=== PATIENT | female | born 1955 | race Caucasian/White ===

== ENCOUNTER 2017-03-06 12:35 | Inpatient (IN) | payer OTHER, BC ==
[~2017-03-06] VITALS: Ht 157.5 cm; Wt 81.6 kg
[2017-03-06] VITALS (12 sets, daily range): BP systolic 107–140; BP diastolic 50–64; PULSE 80–116; TEMP 37–37.7; O2SAT 40–99; Ht 157.5 cm; Wt 81.6 kg
[~2017-03-06 12:35] MED LIST: ALBU1AER9 INH; ALBU1NEB10 INH; ATRINS NEB; AZIT250T PO; BRVIN INH; CALC500C70 PO; CHOL100010 PO; CITA40TA12 PO; CYAN1TAB18 PO; DLR500 PO; FLUT1INH INH; GFNSR600 PO; INSDGIPEN SQ; METF1000 PO; MORPHINE SULFATE PO; MTR/600 PO; NCYSR50 PO; NVLG SQ; OXGN; PANT40TA2 PO; POLY335019 PO; POTA-327 PO; RANI300T2 PO; SPRIN INH; XPNINS125 NEB
[2017-03-06] MEDS ORDERED: METHYLPREDNISOLONE 125 MG VIAL IV STA (12:48)
--- NOTE | 2017-03-06 12:56 | EMERGENCY ROOM VISIT NOTE ---
History Report prepared by Ellie: Jo Yan Under the Supervision of: Dr. Abraham Padron M.D. First contact with patient: 12:44 Chief Complaint: RESPIRATORY PROBLEMS Stated Complaint: BREATHING History of Present Illness The patient is a 61 year old female who presents to the Emergency Room with complaints of difficulty breathing beginning two days ago. The patient states that she woke up this morning and was acutely worse. She has been having fever and chills. The patient notes some chest discomfort due to shortness of breath. She denies any abdominal pain or episodes of syncope. At home, the patient is on 4-6 L of oxygen. The patient's gave her Levaquin and 20 mg of prednisone prior to arrival. The patient has a history of chronic back pain, COPD, and alpha one antitrypsin deficiency. The patient follows up with Dr. Georges. Nursing called for respiratory immediately upon arrival. Source of History: patient Onset: 2 days ago Position: other (generalized) Quality: other (difficulty breathing) Associated Symptoms: + fevers, + chills, + chest pain, + SOB, No abdominal pain Review of Systems See HPI for pertinent positives & negatives. A total of 10 systems reviewed and were otherwise negative. Past Medical & Surgical Medical Problems: (1) [id number] deficiency (2) COPD (chronic obstructive pulmonary disease) (3) Depression (4) Diabetes type 2, controlled (5) GERD (gastroesophageal reflux disease) (6) H/O lymphoma (7) H/o PE (8) Respiratory failure (9) Respiratory failure, acute Surgical Problems: (1) History of back surgery (2) History of bronchoscopy (3) S/P SORAIDA (total abdominal hysterectomy) Family History Cancer Diabetes mellitus FATHER Lung disease FATHER BROTHER Social History Smoking Status: Former Smoker Alcohol Use: occasionally Marital Status: Housing Status: lives with family Occupation Status: disabled Current/Historical Medications Scheduled Albuterol Sulf (Albuterol Sulfate 0.083% For Inh), 3 ML INH UD Arformoterol Tartrate (Brovana), 15 MCG INH BID Calcium/Vitamin D (Os-Oliverio 500 Plus D), 1 TAB PO QAM Cholecalciferol (Vitamin D3), 1 TAB PO DAILY Citalopram Hydrobromide (Celexa), 40 MG PO DAILY Cyanocobalamin (B-12), 1,000 MCG PO QAM Fluticasone Furoate-Vilanterol (Breo Ellipta), 1 PUFF INH DAILY Home O2 Therapy (Oxygen), 5-6 LITER NA CONTINOUS Insulin Glargine (Basaglar Kwikpen), 12 UNITS SC BID Ipratropium [place] (Ipratropium [place]), 1 VIAL NEB QID Metformin HCl (Metformin HCl), 500 MG PO BID Morphine Sulfate (Morphine Sulfate Er), 30 MG PO BID Pantoprazole (Pantoprazole Sodium), 40 MG PO DAILY Potassium Chloride (Micro-K Ext Rel), 20 MEQ PO QAM Ranitidine Hcl (Zantac), 300 MG PO BID Roflumilast (Daliresp), 500 MCG PO QAM Tiotropium [place] (Spiriva Handihaler), 1 PUFF INH QAM Scheduled PRN Albuterol Hfa (Ventolin Hfa), 2 PUFFS INH Q4 PRN for SOB/Wheezing Guaifenesin La (Guaifenesin Er), 600 MG PO Q12H PRN for Cough Ibuprofen (Ibuprofen), 1 TAB PO Q6 PRN for Pain Insulin Aspart (Novolog), 5 UNITS SQ TIDM PRN for PRN Levalbuterol (Levalbuterol HCl), 3 ML NEB TID PRN for SOB/Wheezing Morphine Sulfate (Morphine Sulfate), 5-10 MG PO Q4 PRN for breakthrough pain Polyethylene Glycol 3350 (Miralax), 17 GM PO DAILY PRN for Consult Allergies Coded Allergies: Sulfamethoxazole w/Trimethoprim (Verified Allergy, Unknown, RASH, 03/06/17) Physical Exam Vital Signs Date Time Temp Pulse Resp B/P (MAP) Pulse Ox O2 Delivery O2 Flow Rate FiO2 03/06/17 14:30 122 21 111/54 99 BiPAP 5.0 40 03/06/17 14:15 119 24 99 BiPAP 03/06/17 13:55 124 20 100 BiPAP 03/06/17 13:35 115 30 100 BiPAP 03/06/17 13:15 110 26 100 BiPAP 03/06/17 13:13 100 BiPAP 03/06/17 13:13 109 26 131/81 100 BiPAP 03/06/17 13:09 112 99 40 03/06/17 13:08 116 32 97 BiPAP/CPAP 40 03/06/17 13:00 93 Nasal Cannula 5.0 03/06/17 12:54 101 03/06/17 12:40 39.3 110 33 131/86 93 Nasal Cannula 5.0 Physical Exam GENERAL: Patient is acutely ill appearing and in severe distress. HEENT: No acute trauma, normocephalic atraumatic, mucous membranes moist, no nasal congestion, no scleral icterus. NECK: No stridor, no adenopathy, no meningismus, trachea is midline. LUNGS: Very tight lung sounds, wheezing/stridor on expiration, Tachypneic and dyspneic. HEART: Tachycardic. No murmurs, rubs, gallops appreciated. ABDOMEN: Soft, nontender, bowel sounds positive, no masses appreciated, no peritonitis. BACK: No midline tenderness, no CVA tenderness EXTREMITIES: Normal motion all extremities, no cyanosis, no edema. NEUROLOGIC: Alert and oriented, no acute motor or sensory deficits, no focal weakness, cranial nerves grossly intact. SKIN: No rash, no jaundice, warm to touch. Medical Decision & Procedures ER Provider Diagnostic Interpretation: Radiology results and stated below per my review and radiologist interpretation: SINGLE VIEW CHEST FINDINGS: An AP, portable, upright chest radiograph is compared to study dated 01/28/2017 and correlated with chest CT dated 03/15/2016. The examination is degraded by portable technique and apical lordotic positioning. A left subclavian central venous infusion port is unchanged in position. The cardiomediastinal silhouette is unremarkable. There is atherosclerotic calcification of the thoracic aorta. Emphysema and chronic interstitial thickening are similar to previous. There is bibasilar atelectasis. The lungs and pleural spaces are otherwise clear. No pneumothorax is seen. The skeletal structures are osteopenic. The bony thorax is grossly intact. IMPRESSION: Emphysema with no acute cardiopulmonary abnormality. Electronically signed by: Luis Alfredo Dickerson M.D. Laboratory Results 03/06/17 13:15 Red Blood Count 4.34, Mean Corpuscular Volume 88.2, Mean Corpuscular Hemoglobin 28.6, Mean Corpuscular Hemoglobin Concent 32.4, Mean Platelet Volume 9.5, Neutrophils (%) (Auto) 72.2, Lymphocytes (%) (Auto) 18.5, Monocytes (%) (Auto) 7.6, Eosinophils (%) (Auto) 1.1, Basophils (%) (Auto) 0.3, Neutrophils # (Auto) 10.77, Lymphocytes # (Auto) 2.76, Monocytes # (Auto) 1.13, Eosinophils # (Auto) 0.16, Basophils # (Auto) 0.04 03/06/17 13:15 Test 03/06/17 13:15 03/06/17 13:32 White Blood Count 14.91 K/uL (4.8-10.8) Red Blood Count 4.34 M/uL (4.2-5.4) Hemoglobin 12.4 g/dL (12.0-16.0) Hematocrit 38.3 % (37-47) Mean Corpuscular Volume 88.2 fL (80-100) Mean Corpuscular Hemoglobin 28.6 pg (25-34) Mean Corpuscular Hemoglobin Concent 32.4 g/dl (32-36) Platelet Count 252 K/uL (130-400) Mean Platelet Volume 9.5 fL (7.4-10.4) Neutrophils (%) (Auto) 72.2 % Lymphocytes (%) (Auto) 18.5 % Monocytes (%) (Auto) 7.6 % Eosinophils (%) (Auto) 1.1 % Basophils (%) (Auto) 0.3 % Neutrophils # (Auto) 10.77 K/uL (1.4-6.5) Lymphocytes # (Auto) 2.76 K/uL (1.2-3.4) Monocytes # (Auto) 1.13 K/uL (0.11-0.59) Eosinophils # (Auto) 0.16 K/uL (0-0.5) Basophils # (Auto) 0.04 K/uL (0-0.2) RDW Standard Deviation 43.5 fL (36.4-46.3) RDW Coefficient of Variation 13.4 % (11.5-14.5) Immature Granulocyte % (Auto) 0.3 % Immature Granulocyte # (Auto) 0.05 K/uL (0.00-0.02) Prothrombin Time 10.1 SECONDS (9.0-12.0) Prothromb Time International Ratio 0.9 (0.9-1.1) Activated Partial Thromboplast Time 24.8 SECONDS (21.0-31.0) Partial Thromboplastin Ratio 1.0 Anion Gap 8.0 mmol/L (3-11) Est Creatinine Clear Calc Drug Dose 47.4 ml/min Estimated GFR () 56.7 Estimated GFR (Non- 48.9 BUN/Creatinine Ratio 18.3 (10-20) Lactic Acid Level 2.4 mmol/L (0.4-2.0) Calcium Level 9.1 mg/dl (8.5-10.1) Magnesium Level 1.7 mg/dl (1.8-2.4) Troponin I < 0.015 ng/ml (0-0.045) Arterial Blood pH 7.42 (7.35-7.45) Arterial Blood Partial Pressure CO2 41 mmHg (35-46) Arterial Blood Partial Pressure O2 124 mm/Hg (80-95) Arterial Blood HCO3 26 mmol/L (19-24) Arterial Blood Oxygen Saturation 98.7 % (90-95) Arterial Blood Base Excess 0.9 mEq/L (-9-1.8) Arterial Blood Gas Delivery 40% Nigel Test POS (POS) Laboratory results as reviewed by me. Medications Administered Medications (Trade) Dose Ordered Sig/Aram Route Start Time Stop Time Status Last Admin Dose Admin Methylprednisolone Sodium Succinate (Solu-Medrol IV) 125 mg NOW STAT IV 03/06/17 12:48 03/06/17 12:50 DC 03/06/17 13:02 125 MG Albuterol/ Ipratropium (Duoneb) 12 ml ONE ONCE INH 03/06/17 13:00 03/06/17 13:01 DC 03/06/17 13:08 12 ML Lorazepam (Ativan Inj) 1 mg NOW STAT IV 03/06/17 13:03 03/06/17 13:04 DC 03/06/17 13:07 1 MG Acetaminophen (Tylenol Tab) 1,000 mg NOW STAT PO 03/06/17 13:31 03/06/17 13:33 DC 03/06/17 13:42 1,000 MG Levofloxacin (Levaquin / D5W) 750 mg NOW STAT IV 03/06/17 13:31 03/06/17 13:33 DC 03/06/17 13:52 750 MG Cefepime HCl 1000 mg/Syringe 11 ml @ 5.5 mls/min NOW STAT IV 03/06/17 13:38 03/06/17 13:39 DC 03/06/17 13:47 5.5 MLS/MIN Magnesium Sulfate (Magnesium Sulfate) 1 gm NOW STAT IV 03/06/17 14:16 03/06/17 14:17 DC 03/06/17 14:46 1 GM ECG Indication: SOB/dyspnea Rate (beats per minute): 112 Rhythm: sinus tachycardia Findings: no acute ischemic change, no ectopy ED Course 1245: The patient was evaluated in room B10. A complete history and physical exam was performed. 1248: Solu-Medrol IV 125 mg IV. 1300: Duoneb 12 ml INH. 1302: The patient is very anxious with the Bipap. 1303: Ativan Inj 1 mg IV. 1304: Lorazepam 2 mg .ROUTE. 1312: The patient is breathing much more comfortably on Ativan and Bipap. 1331: Cefepime HCl 1000 mg/Dextrose 111 ml @ 200 mls/hr IV, Levofloxacin 750 mg IV, Tylenol Tab 1000 mg PO. 1338: Cefepime HCl 1000 mg/Dextrose 11 ml @ 5.5 mls/hr IV. 1416: Magnesium Sulfate 1 gm IV. 1432: Discussed the patient's case with Dr. Oneal. The patient will be evaluated for further treatment and disposition. Medical Decision Differential: Infectious, Reactive Airway Disease, Pneumonia, Pneumothorax, COPD , CHF, ACS, Pulmonary Embolism, MSK, GI, Dissection, amongst other etiologies entertained. 61 yr old female with severe COPD arrives in acute respiratory distress. Placed on BiPAP and given IV Ativan with vast improvement in breathing. Febrile with tachycardia and mild lactic elevation thus early sepsis, though I suspect lactic acid may more be due to acute respiratory issues. Given empiric abx. BP OK and will avoid over hydration, especially given fluids from abx for the moment. Stable with ok abg currently. HR still mildly elevated though with fever and continuous neb this is not surprising. Solumedrol given as well. Will come in to hospitalist service for further management. Medication Reconcilliation Current Medication List: was personally reviewed by me Blood Pressure Screening Patient's blood pressure: Normal blood pressure Blood pressure disposition: Referred to PCP (will be evaluated by hospitalist) Consults Time Called: 1420 Consulting Physician: Dr. Oneal Returned Call: [phone] Discussed the patient's case. The patient will be evaluated for further treatment and disposition. Impression Primary Impression: Respiratory failure Additional Impressions: COPD exacerbation Febrile illness Critical Care I have personally spent greater than 35 minutes of critical care time in the direct management of this patient. This was a life/limb threatening event. This includes time spent evaluating patient, direct bedside care, chart review, placing orders, interpretation of diagnostic studies, discussion with consultants, patient, and family members, as well as other required patient management activities. This 35 minutes is in excess of all separately billable procedures. Scribe Attestation The scribe's documentation has been prepared under my direction and personally reviewed by me in its entirety. I confirm that the note above accurately reflects all work, treatment, procedures, and medical decision making performed by me. Departure Information Dispostion Being Evaluated By Hospitalist Referrals August Esposito MD (PCP) Patient Instructions My [facility] Problem Qualifiers
[2017-03-06] MEDS ORDERED: ALBUT/IPRATROP 3MG/0.5MG NEB 3 ML VIAL INH ONE (13:00)
[2017-03-06] MEDS ORDERED: LORAZEPAM 2 MG/ML 1 ML VIAL IV STA ×2 (13:03→22:31)
[2017-03-06] MEDS ORDERED: LORAZEPAM 2 MG/ML 1 ML VIAL ONE ×2 (13:04→22:35)
[2017-03-06] MEDS ORDERED: LEVAQUIN 750MG / 150ML D5W IV STA (13:31)
[2017-03-06] MEDS ORDERED: ACETAMINOPHEN 500 MG TAB PO STA (13:31)
[2017-03-06] MEDS ORDERED: CEFEPIME IV 1,000 MG in DEXTROSE 5% 100ML 100 ML IV STA (13:31)
[2017-03-06] MEDS ORDERED: CEFEPIME IV 1,000 MG in SYRINGE 0 ML IV STA (13:38)
[2017-03-06 13:45] LABS: BASO % 0.3 %; BASO ABS # 0.04 K/uL (0-0.2); COMPLETE YES; EOS % 1.1 %; HEMATOCRIT 38.3 % (37-47); IG% 0.3 %; LYMPH % 18.5 %; LYMPH ABS # 2.76 K/uL (1.2-3.4); MEAN CELL VOLUME 88.2 fL (80-100); MEAN CORPUSCULAR HEMOGLOBIN 28.6 pg (25-34); MEAN CORPUSCULAR HGB CONC 32.4 g/dl (32-36); MEAN PLATELET VOLUME 9.5 fL (7.4-10.4); MONO % 7.6 %; NEUT % 72.2 %; PLATELET COUNT 252 K/uL (130-400); RED BLOOD COUNT 4.34 M/uL (4.2-5.4); WHITE BLOOD COUNT 14.91 K/uL (4.8-10.8)
[2017-03-06 13:47] LABS: ARTERIAL BLD GAS O2 SATURATION 98.7 % (90-95); ARTERIAL BLOOD GAS BASE EXCESS 0.9 mEq/L (-9-1.8); ARTERIAL BLOOD GAS HCO3 26 mmol/L (19-24); ARTERIAL BLOOD GAS PO2 124 mm/Hg (80-95); ARTERIAL BLOOD GAS pH 7.42 (7.35-7.45)
[2017-03-06 13:49] LABS: ALLEN TEST POS (POS); O2 ADMINISTRATION 40%
--- NOTE | 2017-03-06 13:52 | DIAGNOSTIC IMAGING REPORT ---
SINGLE VIEW CHEST CLINICAL HISTORY: Dyspnea. FINDINGS: An AP, portable, upright chest radiograph is compared to study dated 01/28/2017 and correlated with chest CT dated 03/15/2016. The examination is degraded by portable technique and apical lordotic positioning. A left subclavian central venous infusion port is unchanged in position. The cardiomediastinal silhouette is unremarkable. There is atherosclerotic calcification of the thoracic aorta. Emphysema and chronic interstitial thickening are similar to previous. There is bibasilar atelectasis. The lungs and pleural spaces are otherwise clear. No pneumothorax is seen. The skeletal structures are osteopenic. The bony thorax is grossly intact. IMPRESSION: Emphysema with no acute cardiopulmonary abnormality. Electronically signed by: Luis Alfredo Dickerson M.D. 03/06/2017 1:50 PM Dictated Date/Time: 03/06/2017 1:48 PM
[2017-03-06 14:00] LABS: INR 0.9 (0.9-1.1); PROTHROMBIN TIME (PATIENT) 10.1 SECONDS (9.0-12.0)
[2017-03-06 14:02] LABS: BLOOD UREA NITROGEN 22 mg/dl (7-18); BUN/CREATININE RATIO 18.3 (10-20); CALCIUM 9.1 mg/dl (8.5-10.1); CARBON DIOXIDE 25 mmol/L (21-32); CHLORIDE 104 mmol/L (98-107); CREATININE 1.19 mg/dl (0.60-1.20); GLUCOSE 134 mg/dl (70-99); MAGNESIUM 1.7 mg/dl (1.8-2.4); POTASSIUM 4.2 mmol/L (3.5-5.1); SODIUM 137 mmol/L (136-145)
[2017-03-06] MEDS ORDERED: VNTHFA/IN INH (14:10)
[2017-03-06] MEDS ORDERED: RXNS10 PO (14:10)
[2017-03-06] MEDS ORDERED: GLC500 PO (14:10)
[2017-03-06] MEDS ORDERED: ARFO15NE INH (14:10)
[2017-03-06] MEDS ORDERED: CHOL1000 PO (14:10)
[2017-03-06] MEDS ORDERED: POTA10CA28 PO (14:10)
[2017-03-06] MEDS ORDERED: GUAI1TAB75 PO (14:10)
[2017-03-06] MEDS ORDERED: MORP1TAB12 PO (14:10)
[2017-03-06] MEDS ORDERED: INSU100I23 SC (14:10)
[2017-03-06] MEDS ORDERED: MAGNESIUM SULFATE 1GM / D5W 1 GM BAG IV STA (14:16)
[2017-03-06] MEDS ORDERED: GLUCAGON FOR INJ 1 MG VIAL SQ PRN (15:15)
[2017-03-06] MEDS ORDERED: DEXTROSE 50% 50 ML SYR IV PRN (15:15)
[2017-03-06] MEDS ORDERED: GLUCOSE 10 TABS/TUBE PO PRN (15:15)
[2017-03-06] MEDS ORDERED: MoRPHine SULFATE 0.4 MG/1 ML UDP PO PRN (15:15)
[2017-03-06] MEDS ORDERED: GLUCOSE 40% GEL 15 GM TUBE PO PRN (15:15)
[2017-03-06] MEDS ORDERED: ACETAMINOPHEN 325 MG TAB PO PRN (15:15)
[2017-03-06] MEDS ORDERED: LEVOFLOXACIN CONSULT ACTIVE PRN (15:25)
[2017-03-06] MEDS ORDERED: PHARMACY GLYCEMIC MGMT CONSULT PRN (15:27)
[2017-03-06] MEDS ORDERED: [UNRECOGNIZED DRUG - REMARK] PRN (16:00)
[2017-03-06] MEDS ORDERED: CEFEPIME CONSULT ACTIVE PRN ×2 (16:00)
[2017-03-06] MEDS: LEVALBUTEROL 1.25MG/0.5ML NEB INH SCH ×3 (16:00→23:01)
--- NOTE | 2017-03-06 16:28 | History and Physical ---
History & Physical Date & Time of Service: Mar 06, 2017 at 16:27 Chief Complaint: Breathing Primary Care Physician: August Esposito MD History of Present Illness Source: patient, clinic records, hospital records 61 year old female with history of Chronic Respiratory Failure on 4-6 L O2 via NC, COPD, Antitrypsin Deficiency, DM, PE, presenting with shortness of breath x [address] Esposito for PCP, Dr. Georges for Pulmonary. Patient started to have fever/chills, increasing dyspnea, cough, with sputum for the past 2 days. Progression of symptoms prompted consult to the ER. She was in respiratory distress and was started on Bipap at the ER. She was also given Solumedrol, Cefepime with Levaquin and Nebs. ABG showed pH7.4, PCO2 41, HCO3 26. On exam, patient was seen wearing Bipap mask, alert, oriented, still has tachypnea with HR 120s. States she feels improved compared to admission. No other symptoms. Past Medical/Surgical History Medical Problems: (1) Pvkmb-[id number] deficiency Status: Chronic (2) COPD (chronic obstructive pulmonary disease) Status: Chronic (3) Depression Status: Chronic (4) Diabetes type 2, controlled Status: Chronic (5) H/O lymphoma Status: Chronic (6) H/o PE Status: Chronic Surgical Problems: (1) History of back surgery Status: Chronic (2) History of bronchoscopy Status: Chronic (3) S/P SORAIDA (total abdominal hysterectomy) Status: Chronic Family History Cancer Diabetes mellitus FATHER Lung disease FATHER BROTHER Social History Smoking Status: Former Smoker Smokeless Tobacco Use: No Alcohol Use: none Drug Use: none Marital Status: Housing status: lives with family Occupational Status: disabled Immunizations History of Influenza Vaccine: Yes Influenza Vaccine Date: Jan 24, 2014 History of Tetanus Vaccine?: Yes History of Pneumococcal: Yes Pneumococcal Date: May 16, 2005 History of Hepatitis B Vaccine: Yes Multi-Drug Resistant Organisms History of MDRO: No Allergies Coded Allergies: Sulfamethoxazole w/Trimethoprim (Verified Allergy, Unknown, RASH, 03/06/17) Home Medications Scheduled Albuterol Sulf (Albuterol Sulfate 0.083% For Inh), 3 ML INH UD Arformoterol Tartrate (Brovana), 15 MCG INH BID Calcium/Vitamin D (Os-Oliverio 500 Plus D), 1 TAB PO QAM Cholecalciferol (Vitamin D3), 1 TAB PO DAILY Citalopram Hydrobromide (Celexa), 40 MG PO DAILY Cyanocobalamin (B-12), 1,000 MCG PO QAM Fluticasone Furoate-Vilanterol (Breo Ellipta), 1 PUFF INH DAILY Home O2 Therapy (Oxygen), 5-6 LITER NA CONTINOUS Insulin Glargine (Basaglar Kwikpen), 12 UNITS SC BID Ipratropium [place] (Ipratropium [place]), 1 VIAL NEB QID Metformin HCl (Metformin HCl), 500 MG PO BID Morphine Sulfate (Morphine Sulfate Er), 30 MG PO BID Pantoprazole (Pantoprazole Sodium), 40 MG PO DAILY Potassium Chloride (Micro-K Ext Rel), 20 MEQ PO QAM Ranitidine Hcl (Zantac), 300 MG PO BID Roflumilast (Daliresp), 500 MCG PO QAM Tiotropium [place] (Spiriva Handihaler), 1 PUFF INH QAM Scheduled PRN Albuterol Hfa (Ventolin Hfa), 2 PUFFS INH Q4 PRN for SOB/Wheezing Guaifenesin La (Guaifenesin Er), 600 MG PO Q12H PRN for Cough Ibuprofen (Ibuprofen), 1 TAB PO Q6 PRN for Pain Insulin Aspart (Novolog), 5 UNITS SQ TIDM PRN for PRN Levalbuterol (Levalbuterol HCl), 3 ML NEB TID PRN for SOB/Wheezing Morphine Sulfate (Morphine Sulfate), 5-10 MG PO Q4 PRN for breakthrough pain Polyethylene Glycol 3350 (Miralax), 17 GM PO DAILY PRN for Consult Review of Systems Constitutional- no fever; no weight loss Eyes- no acute visual changes ENT- no sinus drainage; no pharyngitis Pulmonary-(+) as noted above Cardiac- no chest pain, no palpitations, no orthopnea, no dependent edema GI- no nausea, no vomiting, no diarrhea, no melena, no hematochezia - no dysuria, no hematuria Musculoskeletal- no arthralgias, no myalgias Derm- no rashes, no new skin lesions, no changing skin lesions Hematologic- no unusual bruising, no unusual bleeding Lymphatics- no adenopathy Endocrine- no polyuria or polydipsia; no heat or cold intolerance Neuro- no headaches, no focal neurologic symptoms Psych- no anxiety, no depression Physical Exam Vital Signs Date Time Temp Pulse Resp B/P (MAP) Pulse Ox O2 Delivery O2 Flow Rate FiO2 03/06/17 16:00 37.7 102 21 124/52 99 BiPAP 03/06/17 15:03 116 20 108/68 99 BiPAP 03/06/17 14:30 122 21 111/54 99 BiPAP 5.0 40 03/06/17 14:15 119 24 99 BiPAP 03/06/17 13:55 124 20 100 BiPAP 03/06/17 13:35 115 30 100 BiPAP 03/06/17 13:15 110 26 100 BiPAP 03/06/17 13:13 100 BiPAP 03/06/17 13:13 109 26 131/81 100 BiPAP 03/06/17 13:09 112 99 40 03/06/17 13:08 116 32 97 BiPAP/CPAP 40 03/06/17 13:00 93 Nasal Cannula 5.0 03/06/17 12:54 101 03/06/17 12:40 39.3 110 33 131/86 93 Nasal Cannula 5.0 General Appearance: WD/WN, + pertinent finding (tachypneic, mild accessory muscle use) Head: normocephalic, atraumatic Eyes: normal inspection, PERRL, EOMI, sclerae normal ENT: normal ENT inspection, hearing grossly normal, pharynx normal Neck: supple, no adenopathy, thyroid normal, no JVD, trachea midline Respiratory/Chest: chest non-tender, no accessory muscle use, + accessory muscle use (mild), + pertinent finding ((+) distant breath sounds with scattered wheezing bilaterally) Cardiovascular: no edema, no JVD, no murmur, + tachycardia Abdomen/GI: normal bowel sounds, non tender, soft Back: normal inspection, no CVA tenderness Extremities/Musculoskelatal: normal inspection, no calf tenderness, no pedal edema Neurologic/Psych: admissions recruiter II-XII nml as tested, no motor/sensory deficits, alert, normal mood/affect, oriented x 3 Skin: normal color, warm/dry, no rash Lymphatic: no adenopathy Diagnostics Laboratory Results Results Past 24 Hours Test 03/06/17 13:15 03/06/17 13:32 Range/Units White Blood Count 14.91 4.8-10.8 K/uL Red Blood Count 4.34 4.2-5.4 M/uL Hemoglobin 12.4 12.0-16.0 g/dL Hematocrit 38.3 37-47 % Mean Corpuscular Volume 88.2 80-100 fL Mean Corpuscular Hemoglobin 28.6 25-34 pg Mean Corpuscular Hemoglobin Concent 32.4 32-36 g/dl Platelet Count 252 130-400 K/uL Mean Platelet Volume 9.5 7.4-10.4 fL Neutrophils (%) (Auto) 72.2 % Lymphocytes (%) (Auto) 18.5 % Monocytes (%) (Auto) 7.6 % Eosinophils (%) (Auto) 1.1 % Basophils (%) (Auto) 0.3 % Neutrophils # (Auto) 10.77 1.4-6.5 K/uL Lymphocytes # (Auto) 2.76 1.2-3.4 K/uL Monocytes # (Auto) 1.13 0.11-0.59 K/uL Eosinophils # (Auto) 0.16 0-0.5 K/uL Basophils # (Auto) 0.04 0-0.2 K/uL RDW Standard Deviation 43.5 36.4-46.3 fL RDW Coefficient of Variation 13.4 11.5-14.5 % Immature Granulocyte % (Auto) 0.3 % Immature Granulocyte # (Auto) 0.05 0.00-0.02 K/uL Prothrombin Time 10.1 9.0-12.0 SECONDS Prothromb Time International Ratio 0.9 0.9-1.1 Activated Partial Thromboplast Time 24.8 21.0-31.0 SECONDS Partial Thromboplastin Ratio 1.0 Sodium Level 137 136-145 mmol/L Potassium Level 4.2 3.5-5.1 mmol/L Chloride Level 104 98-107 mmol/L Carbon Dioxide Level 25 21-32 mmol/L Anion Gap 8.0 3-11 mmol/L Blood Urea Nitrogen 22 7-18 mg/dl Creatinine 1.19 0.60-1.20 mg/dl Est Creatinine Clear Calc Drug Dose 47.4 ml/min Estimated GFR () 56.7 Estimated GFR (Non- 48.9 BUN/Creatinine Ratio 18.3 10-20 Random Glucose 134 70-99 mg/dl Lactic Acid Level 2.4 0.4-2.0 mmol/L Calcium Level 9.1 8.5-10.1 mg/dl Magnesium Level 1.7 1.8-2.4 mg/dl Troponin I < 0.015 0-0.045 ng/ml Arterial Blood pH 7.42 7.35-7.45 Arterial Blood Partial Pressure CO2 41 35-46 mmHg Arterial Blood Partial Pressure O2 124 80-95 mm/Hg Arterial Blood HCO3 26 19-24 mmol/L Arterial Blood Oxygen Saturation 98.7 90-95 % Arterial Blood Base Excess 0.9 -9-1.8 mEq/L Arterial Blood Gas Delivery 40% Nigel Test POS POS Microbiology Results 03/06/17 Blood Culture, Received Pending 03/06/17 Blood Culture, Received Pending Diagnostic Radiology [~ rep ct add3]] SINGLE VIEW CHEST CLINICAL HISTORY: Dyspnea. FINDINGS: An AP, portable, upright chest radiograph is compared to study dated 01/28/2017 and correlated with chest CT dated 03/15/2016. The examination is degraded by portable technique and apical lordotic positioning. A left subclavian central venous infusion port is unchanged in position. The cardiomediastinal silhouette is unremarkable. There is atherosclerotic calcification of the thoracic aorta. Emphysema and chronic interstitial thickening are similar to previous. There is bibasilar atelectasis. The lungs and pleural spaces are otherwise clear. No pneumothorax is seen. The skeletal structures are osteopenic. The bony thorax is grossly intact. IMPRESSION: Emphysema with no acute cardiopulmonary abnormality. EKG HR 112, sinus rhythm, no signs of ischemia Impression Assessment and Plan 61 year old female with history of Chronic Respiratory Failure on 4-6 L O2 via NC, COPD, Antitrypsin Deficiency, DM, PE, presenting with shortness of breath x 2 days. ACUTE ON CHRONIC HYPOXIC RESPIRATORY FAILURE LIKELY SECONDARY TO COPD EXACERBATION, ACUTE BRONCHITIS COPD, ANTITRYPSIN DEFICIENCY - cultures pending - Zosyn + Levaquin Nebs q4h Solumedrol 40mg q6h - continue Bipap - admit to ICU - consult Pulmonary (follows with Dr. Georges) - takes Prolastin weekly requested to bring medication tomorrow POSSIBLE SEVERE SEPSIS SECONDARY TO ABOVE - Lactic acid 2.4 IV NSS - repeat Lactic acid at 6pm DM 2 - hold Metformin - ISS, Pharmacy Glycemic Mgt HISTORY OF PE - Lovenox for DVT prophylaxis CHRONIC PAIN - continue usual Morphine 30mg BID FULL CODE PER PATIENT DVT PROPHYLAXIS: LOVENOX DISPOSITION: anticipate d/c home when medically stable VTE Prophylaxis VTE Risk Assessment Done? Y/N: Yes Risk Level: Moderate Given or contraindicated: Enoxaparin (Lovenox)SQ
[2017-03-06] MEDS: SODIUM CHLORIDE 0.9% 1000ML 1,000 ML IV SCH (17:25)
[2017-03-06] MEDS: METRONIDAZOLE 500MG / NSS IV SCH (17:25)
[2017-03-06] MEDS: INSULIN ASPART 100 UNITS/ML 3 ML PEN SC SCH ×2 (17:26→21:12)
[2017-03-06] MEDS ORDERED: MoRPHine SULFATE CR 15 MG TAB (MS CONTIN) PO ONE (17:30)
[2017-03-06] MEDS: BREO ELLIPTA: ORDER AWAITING ACTION SCH ×2 (17:39→22:43)
[2017-03-06 18:35] LABS: INFLUENZA A PCR Neg for Influ A (NEG); INFLUENZA B PCR Neg for Influ B (NEG)
[2017-03-06] MEDS ORDERED: SODIUM CHLORIDE 0.9% 1000ML 1,000 ML IV SCH (19:00)
[2017-03-06] MEDS: ARFORMOTEROL TART 15MCG/2ML VIAL INH SCH (19:07)
[2017-03-06] MEDS ORDERED: MoRPHine SULFATE 2 MG/ML CARP IV STA (19:58)
[2017-03-06] MEDS ORDERED: MoRPHine SULFATE 2 MG/ML CARP ONE (20:01)
[2017-03-06] MEDS: METHYLPREDNISOLONE IV 40 MG in SYRINGE 0 ML IV SCH (20:07)
[2017-03-06] MEDS: CEFEPIME IV 2,000 MG in SYRINGE 7.5 ML IV SCH (20:07)
--- NOTE | 2017-03-06 20:09 | Critical Care Consultation ---
Critical Care Consultation Date of Consultation: Mar 06, 2017. Attending Physician: Sal Womack MD Reason for Consultation: 61-year-old female with acute on chronic hypoxic respiratory failure in the setting of acute bronchitis with sepsis requiring BiPAP. History of Present Illness Patient is a 61-year-old female with a past medical history significant for COPD secondary to alpha-1 antitrypsin deficiency for which she follows with Dr. Georges of pulmonology. She utilizes 4-6 L nasal cannula at home depending on her exertion. She was enjoying her typical state of health up until yesterday afternoon when she noticed chills and increasing work of breathing. Today, the patient had increased episode of chills with a fever of 102F which prompted her visit to the emergency department. While in the emergency department, the patient received IV fluids as well as being placed on BiPAP and IV steroids. She received IV antibiotics and is currently receiving cefepime and Levaquin. Her chest x-ray demonstrated no acute infiltrates. ABG: pH7.42/ pCO2 41/pO2 124/HCO3 26. At this time, the patient was resting comfortably with BiPAP in place at 12 over 5. Her oxygen saturations of been in the high 90s. She reports that her work of breathing has greatly improved. She does report having a cough throughout yesterday which was nonproductive. She complained of increasing work of breathing and shortness of breath. She has had similar episodes in the past related to her COPD exacerbations. Patient complains of upper back pain which she describes as her "typical" pain which is worse with cough. She rates her current discomfort as a 6/10. She denies any current headaches, dizziness, lightheadedness, chest pain, palpitations, hemoptysis, nausea, vomiting, abdominal pain, hematochezia, melena, hematuria, or dysuria. Patient is a former smoker. She does not recall call. She lives at home with family. Past Medical/Surgical History Medical Problems: (1) Luzro-5-qyubyfylkij deficiency (2) COPD (chronic obstructive pulmonary disease) (3) Depression (4) Diabetes type 2, controlled (5) GERD (gastroesophageal reflux disease) (6) H/O lymphoma (7) H/o PE (8) Respiratory failure (9) Respiratory failure, acute Surgical Problems: (1) History of back surgery (2) History of bronchoscopy (3) S/P SORAIDA (total abdominal hysterectomy) Family History Cancer Diabetes mellitus FATHER Lung disease FATHER BROTHER Noncontributory Social History Smoking Status: Former Smoker Smokeless Tobacco Use: No Alcohol Use: none Drug Use: none Marital Status: Housing Status: lives with family Occupation Status: disabled Allergies Coded Allergies: Sulfamethoxazole w/Trimethoprim (Verified Allergy, Unknown, RASH, 03/06/17) Home Medications Scheduled Albuterol Sulf (Albuterol Sulfate 0.083% For Inh), 3 ML INH UD Arformoterol Tartrate (Brovana), 15 MCG INH BID Calcium/Vitamin D (Os-Oliverio 500 Plus D), 1 TAB PO QAM Cholecalciferol (Vitamin D3), 1 TAB PO DAILY Citalopram Hydrobromide (Celexa), 40 MG PO DAILY Cyanocobalamin (B-12), 1,000 MCG PO QAM Fluticasone Furoate-Vilanterol (Breo Ellipta), 1 PUFF INH DAILY Home O2 Therapy (Oxygen), 5-6 LITER NA CONTINOUS Insulin Glargine (Basaglar Kwikpen), 12 UNITS SC BID Ipratropium [place] (Ipratropium [place]), 1 VIAL NEB QID Metformin HCl (Metformin HCl), 500 MG PO BID Morphine Sulfate (Morphine Sulfate Er), 30 MG PO BID Pantoprazole (Pantoprazole Sodium), 40 MG PO DAILY Potassium Chloride (Micro-K Ext Rel), 20 MEQ PO QAM Ranitidine Hcl (Zantac), 300 MG PO BID Roflumilast (Daliresp), 500 MCG PO QAM Tiotropium [place] (Spiriva Handihaler), 1 PUFF INH QAM Scheduled PRN Albuterol Hfa (Ventolin Hfa), 2 PUFFS INH Q4 PRN for SOB/Wheezing Guaifenesin La (Guaifenesin Er), 600 MG PO Q12H PRN for Cough Ibuprofen (Ibuprofen), 1 TAB PO Q6 PRN for Pain Insulin Aspart (Novolog), 5 UNITS SQ TIDM PRN for PRN Levalbuterol (Levalbuterol HCl), 3 ML NEB TID PRN for SOB/Wheezing Morphine Sulfate (Morphine Sulfate), 5-10 MG PO Q4 PRN for breakthrough pain Polyethylene Glycol 3350 (Miralax), 17 GM PO DAILY PRN for Consult Current Inpatient Medications Current Inpatient Medications Medications (Trade) Dose Ordered Sig/Aram Route Start Time Stop Time Status Last Admin Dose Admin Levalbuterol (Xopenex 1.25MG/ 0.5ML Neb) 1.25 mg Q4R INH 03/06/17 16:00 04/05/17 15:59 Methylprednisolone Sodium Succinate 40 mg/Syringe 0.64 ml @ 1.5 mls/min Q6H IV 03/06/17 20:00 04/05/17 19:59 Levofloxacin (Consult) 1 ea UD PRN N/A 03/06/17 15:25 04/05/17 15:24 Sodium Chloride 1,000 ml @ 125 mls/hr Q8H IV 03/06/17 17:00 04/05/17 16:59 03/06/17 17:25 80 MLS/HR Insulin Aspart (novoLOG ASPART) SLIDING SCALE If C... ACHS SC 03/06/17 16:00 04/05/17 15:59 03/06/17 17:26 1 UNITS Glucose (Glucose 40% Gel) 15-30 GRAMS 15 GRAMS... UD PRN PO 03/06/17 15:15 04/05/17 15:14 Glucose (Glucose Chew Tab) 4-8 Tablets 4 Tabl... UD PRN PO 03/06/17 15:15 04/05/17 15:14 Dextrose (Dextrose 50% 50ML Syringe) 25-50ML OF 50% DW IV FOR... UD PRN IV 03/06/17 15:15 04/05/17 15:14 Glucagon (Glucagon Inj) 1 mg UD PRN SQ 03/06/17 15:15 04/05/17 15:14 Miscellaneous Information (Consult Glycemic Management Pharmacy) 1 ea UD PRN N/A 03/06/17 15:27 04/05/17 15:26 Arformoterol Tartrate (Brovana 15MCG/ 2ML Neb Soln) 15 mcg BIDR INH 03/06/17 20:00 04/05/17 19:59 03/06/17 19:07 15 MCG Citalopram Hydrobromide (celeXA TAB) 40 mg DAILY PO 03/07/17 09:00 04/06/17 08:59 Pantoprazole Sodium (Protonix Tab) 40 mg DAILY PO 03/07/17 09:00 04/06/17 08:59 Potassium Chloride (Klor-Con Tab) 20 meq QAM PO 03/07/17 09:00 04/06/17 08:59 Ranitidine HCl (zANTac TAB) 300 mg BID PO 03/06/17 21:00 04/05/17 20:59 Roflumilast (Daliresp Tab) 500 mcg QAM PO 03/07/17 09:00 04/06/17 08:59 Miscellaneous Information (Order Awaiting Action) 1 ea QS N/A 03/06/17 16:00 04/05/17 15:59 Enoxaparin Sodium (Lovenox Inj) 40 mg QPM SQ 03/06/17 21:00 04/05/17 20:59 Acetaminophen (Tylenol Tab) 650 mg Q4H PRN PO 03/06/17 15:15 04/05/17 15:14 Cefepime HCl (Consult) 1 ea UD PRN N/A 03/06/17 16:00 04/05/17 15:59 Miscellaneous Information (Pharmacy Consult) 1 ea UD PRN N/A 03/06/17 16:00 04/05/17 15:59 Morphine Sulfate (Oramorph Sr Tab) 30 mg BID PO 03/06/17 21:00 03/20/17 20:59 Future hold Metronidazole 500 mg/Prmx 100 ml @ 100 mls/hr Q8H IV 03/06/17 18:00 03/13/17 17:59 03/06/17 17:25 100 MLS/HR Cefepime HCl 2000 mg/Syringe 20 ml @ 5 mls/min Q12H IV 03/06/17 20:00 03/13/17 19:59 Levofloxacin 750 mg/Prmx 150 ml @ 100 mls/hr Q2D@1400 IV 03/08/17 14:00 03/13/17 13:59 Insulin Glargine (Lantus Solostar Pen) 6 units BID SC 03/06/17 21:00 04/05/17 20:59 Review of Systems A complete 10-point Review of Systems was discussed with the patient, with pertinent positives and negatives listed in the History of Present Illness. All remaining Review of Systems questions can be considered negative unless otherwise specified. Physical Exam Date Time Temp Pulse Resp B/P (MAP) Pulse Ox O2 Delivery O2 Flow Rate FiO2 03/06/17 18:06 95 24 107/60 (76) 98 BiPAP 40 03/06/17 17:00 37.7 97 26 108/50 40 BiPAP 03/06/17 16:48 102 98 40 03/06/17 16:25 97 03/06/17 16:00 37.7 102 21 124/52 99 BiPAP 03/06/17 15:03 116 20 108/68 99 BiPAP 03/06/17 14:30 122 21 111/54 99 BiPAP 5.0 40 03/06/17 14:15 119 24 99 BiPAP 03/06/17 13:55 124 20 100 BiPAP 03/06/17 13:35 115 30 100 BiPAP 03/06/17 13:15 110 26 100 BiPAP 03/06/17 13:13 100 BiPAP 03/06/17 13:13 109 26 131/81 100 BiPAP 03/06/17 13:09 112 99 40 03/06/17 13:08 116 32 97 BiPAP/CPAP 40 03/06/17 13:00 93 Nasal Cannula 5.0 03/06/17 12:54 101 03/06/17 12:40 39.3 110 33 131/86 93 Nasal Cannula 5.0 VITAL SIGNS - Vital signs and nursing notes were reviewed. GENERAL - 51-year-old female appearing her stated age who is in no acute distress. BiPAP in place. Communicates well with provider and answers questions appropriately. SKIN - Without rashes. HEAD - NC/AT. EYES - PERRL with EOMI bilaterally. Sclera anicteric. Palpebral conjunctiva pink and moist with no injection noted. EARS - No deformities of external structures noted on gross examination bilaterally. NOSE - Midline and without cyanosis. No epistaxis or purulent drainage noted. Septum midline without deviation or septal hematoma noted. MOUTH/OROPHARYNX - Without perioral cyanosis. Buccal mucosa pink and dry. NECK - Neck with FROM. Supple to palpation. No lymphadenopathy noted. No nuchal rigidity. LUNGS - Chest wall symmetric without accessory muscle use, intercostals retractions, or central cyanosis. Distant breath sounds noted throughout. No wheezes, rales, or rhonchi appreciated. CARDIAC - RRR with S1/S2. No murmur, rubs, or gallops appreciated. ABDOMEN - Abdominal contour obese without pulsations or visible masses. BS normoactive all four quadrants. No tenderness, palpable masses, hepatosplenomegaly, or ascites noted. EXTREMITIES - No clubbing or peripheral cyanosis. No pretibial edema present. +5 /5 strength noted in UE/LE bilaterally. NEUROLOGIC - Cranial nerves II through XII grossly intact. Sensory intact to light touch throughout. PSYCH - A&Ox3 and cooperates fully with examiner. Pt is very pleasant and interacts well with examiner. Laboratory Results Last 24 Hours Test 03/06/17 13:15 03/06/17 13:32 03/06/17 17:19 03/06/17 17:20 White Blood Count 14.91 K/uL Red Blood Count 4.34 M/uL Hemoglobin 12.4 g/dL Hematocrit 38.3 % Mean Corpuscular Volume 88.2 fL Mean Corpuscular Hemoglobin 28.6 pg Mean Corpuscular Hemoglobin Concent 32.4 g/dl Platelet Count 252 K/uL Mean Platelet Volume 9.5 fL Neutrophils (%) (Auto) 72.2 % Lymphocytes (%) (Auto) 18.5 % Monocytes (%) (Auto) 7.6 % Eosinophils (%) (Auto) 1.1 % Basophils (%) (Auto) 0.3 % Neutrophils # (Auto) 10.77 K/uL Lymphocytes # (Auto) 2.76 K/uL Monocytes # (Auto) 1.13 K/uL Eosinophils # (Auto) 0.16 K/uL Basophils # (Auto) 0.04 K/uL RDW Standard Deviation 43.5 fL RDW Coefficient of Variation 13.4 % Immature Granulocyte % (Auto) 0.3 % Immature Granulocyte # (Auto) 0.05 K/uL Prothrombin Time 10.1 SECONDS Prothromb Time International Ratio 0.9 Activated Partial Thromboplast Time 24.8 SECONDS Partial Thromboplastin Ratio 1.0 Sodium Level 137 mmol/L Potassium Level 4.2 mmol/L Chloride Level 104 mmol/L Carbon Dioxide Level 25 mmol/L Anion Gap 8.0 mmol/L Blood Urea Nitrogen 22 mg/dl Creatinine 1.19 mg/dl Est Creatinine Clear Calc Drug Dose 47.4 ml/min Estimated GFR () 56.7 Estimated GFR (Non- 48.9 BUN/Creatinine Ratio 18.3 Random Glucose 134 mg/dl Lactic Acid Level 2.4 mmol/L Calcium Level 9.1 mg/dl Magnesium Level 1.7 mg/dl Troponin I < 0.015 ng/ml Arterial Blood pH 7.42 Arterial Blood Partial Pressure CO2 41 mmHg Arterial Blood Partial Pressure O2 124 mm/Hg Arterial Blood HCO3 26 mmol/L Arterial Blood Oxygen Saturation 98.7 % Arterial Blood Base Excess 0.9 mEq/L Arterial Blood Gas Delivery 40% Nigel Test POS Bedside Glucose 180 mg/dl Influenza Type A (RT-PCR) Neg for Influ A Influenza Type B (RT-PCR) Neg for Influ B Test 03/06/17 18:05 Lactic Acid Level 5.0 mmol/L Diagnostic Results Radiological imaging and reports were reviewed by myself. Radiologist's Interpretation as follows: SINGLE VIEW CHEST CLINICAL HISTORY: Dyspnea. FINDINGS: An AP, portable, upright chest radiograph is compared to study dated 01/28/2017 and correlated with chest CT dated 03/15/2016. The examination is degraded by portable technique and apical lordotic positioning. A left subclavian central venous infusion port is unchanged in position. The cardiomediastinal silhouette is unremarkable. There is atherosclerotic calcification of the thoracic aorta. Emphysema and chronic interstitial thickening are similar to previous. There is bibasilar atelectasis. The lungs and pleural spaces are otherwise clear. No pneumothorax is seen. The skeletal structures are osteopenic. The bony thorax is grossly intact. IMPRESSION: Emphysema with no acute cardiopulmonary abnormality. Assessment & Plan (1) COPD exacerbation (2) Febrile illness (3) Cvhew-5-hpzpsgqtges deficiency (4) Diabetes type 2, controlled (5) H/o PE (6) Depression (7) Respiratory failure, acute Reason Critically Ill: 61-year-old female with acute hypoxic respiratory failure on chronic disease state. History of COPD and alpha-1 antitrypsin deficiency for which she follows with pulmonology. Patient with acute febrile illness with increasing oxygen requirement with a towel to her support with BiPAP. Neuro - * CAM ICU: NEGATIVE * Chronic Back Pain - Morphine PO as at home - PRN morphine for breakthrough pain. * Depression - Continue Celexa. * Anxiety - Ativan PRN - especially with BiPAP in place. Cardiac - * No history of cardiac disease. Known history of "Heart Murmur" * EKG demonstrates Sinus Tachycardia @ 112bpm w/ non-specific ST/T-wave changes which is essentially unchanged from 03/16/2016. QTc: 434ms. Respiratory - * Acute on chronic hypoxic respiratory failure in setting of COPD 2/2 Alpha-1 Antitrypsin Deficiency: * Continue Steroids. * DuoNebs * Supplemental O2 w/ BiPAP as needed. * to bring weekly dose of Prolastin Tomorrow (03/06). * Appreciate Pulmonary Consultation. * History of PE: * Clinical Picture does not lend itself to this diagnosis. * Improving w/ symptomatic treatment as described above. * If O2 requirement or s/s were to change - consider CTA to evaluate for PE. GI - * GERD - continue Zantac/Protonix. * NPO tonight while chance of return to BiPAP. * Recommend DM diet when tolerating. RENAL/LYTES - * Monitor electrolytes daily - replace appropriately. * Continue supplemental K+ per home dosing. * Current IVF of NSS @80mL/hr. * Will add supplemental bolus of 1L in setting of elevated Lactic Acid. - * No Mccartney Catheter at this time. ENDO - * History of DM on insulin/Metformin at home. * ISS for BSG coverage per protocol. * Anticipate hyperglycemia in the setting of stress and steroid dosing. HEME - * Stable H&H. * Slight Leukocytosis. ID - * Likely Sepsis with ??Pulmonary Source: * Blood/UA Cultures pending. * Continue Cefepime/Levaquin at this time. * Inial Lactic elevated at 2.5 - will trend q6h. * Will check Procalcitonin. * Monitor fever curve. LINES/IV ACCESS - * LEFT Subclavian A-Port as current access. DVT PROPHYLAXIS - * Lovenox SQ * SCDs I have personally spent 45 minutes of critical care time in the direct management of this patient. This is a life/limb threatening event. This includes time spent evaluating patient, direct bedside care, chart review, placing orders, interpretation of diagnostic studies, discussion with consultants, patient, and family members, as well as other required patient management activities. This time is exclusive of all separately billable procedures, and teaching time and separate from and in addition to any other critical care service time. Thank you for this consultation allow us to be part of this patient's care. Please refer to my attending physician's documentation for any further recommendations.
[2017-03-06] MEDS: RANITIDINE HCL 150 MG TAB PO SCH (20:11)
[2017-03-06] MEDS: ENOXAPARIN 40 MG/0.4 ML SYR SQ SCH (20:12)
[2017-03-06] MEDS ORDERED: SODIUM CHLORIDE 0.9% 500ML 500 ML IV SCH ×2 (20:15→22:00)
[2017-03-06] MEDS ORDERED: INSULIN GLARGINE SOLOSTAR 100 UNITS/ML 3 ML PEN SC SCH ×2 (21:00)
[2017-03-06] MEDS ORDERED: MoRPHine SULFATE CR 15 MG TAB (MS CONTIN) PO SCH (21:00)
[2017-03-07] VITALS (19 sets, daily range): BP systolic 124–165; BP diastolic 54–91; PULSE 81–114; TEMP 36.7–37; O2SAT 94–99
[2017-03-07 00:59] LABS: ALKALINE PHOSPHATASE 67 U/L (45-117); ALT/SGPT 24 U/L (12-78); AST/SGOT 19 U/L (15-37); PHOSPHORUS 2.6 mg/dl (2.5-4.9)
[2017-03-07] MEDS: METRONIDAZOLE 500MG / NSS IV SCH (01:12)
[2017-03-07] MEDS: SODIUM CHLORIDE 0.9% 1000ML 1,000 ML IV SCH ×3 (01:13→20:34)
[2017-03-07] MEDS: METHYLPREDNISOLONE IV 40 MG in SYRINGE 0 ML IV SCH ×4 (01:13→20:31)
[2017-03-07] MEDS ORDERED: SODIUM CHLORIDE 0.9% 500ML 500 ML IV SCH ×2 (01:15→02:45)
[2017-03-07] MEDS: LEVALBUTEROL 1.25MG/0.5ML NEB INH SCH ×5 (03:32→20:00)
[2017-03-07 05:35] LABS: COMPLETE YES; HEMATOCRIT 32.9 % (37-47); IG% 0.2 %; LYMPH ABS # 0.51 K/uL (1.2-3.4); MEAN CELL VOLUME 88.4 fL (80-100); MEAN CORPUSCULAR HEMOGLOBIN 28.2 pg (25-34); MEAN CORPUSCULAR HGB CONC 31.9 g/dl (32-36); MEAN PLATELET VOLUME 9.6 fL (7.4-10.4); MONO % 1.1 %; NEUT % 93.7 %; PLATELET COUNT 183 K/uL (130-400); RED BLOOD COUNT 3.72 M/uL (4.2-5.4); WHITE BLOOD COUNT 10.26 K/uL (4.8-10.8)
[2017-03-07 06:16] LABS: BUN/CREATININE RATIO 20.9 (10-20); CALCIUM 7.8 mg/dl (8.5-10.1); CREATININE 0.75 mg/dl (0.60-1.20); POTASSIUM 3.9 mmol/L (3.5-5.1)
[2017-03-07] MEDS: ARFORMOTEROL TART 15MCG/2ML VIAL INH SCH ×2 (06:59→21:00)
[2017-03-07] MEDS: CEFEPIME IV 2,000 MG in SYRINGE 7.5 ML IV SCH ×2 (07:29→20:30)
[2017-03-07] MEDS: RANITIDINE HCL 150 MG TAB PO SCH ×2 (07:29→20:31)
[2017-03-07] MEDS: PANTOprazole SOD 40 MG TAB PO SCH (07:30)
[2017-03-07] MEDS: ROFLUMILAST 500 MCG TAB PO SCH (07:30)
[2017-03-07] MEDS: CITALOPRAM 40 MG TAB PO SCH (07:30)
[2017-03-07] MEDS: POTASSIUM CHLORIDE 20 MEQ TABCR PO SCH (07:31)
--- NOTE | 2017-03-07 07:31 | DIAGNOSTIC IMAGING REPORT ---
CHEST ONE VIEW PORTABLE HISTORY: 61 years-old Female copd exacerbation acute shortness of breath COMPARISON: Chest radiograph 03/06/2017 TECHNIQUE: Portable upright AP view of the chest FINDINGS: Cardiac silhouette is upper limits of normal. Left subclavian Cigxer-r-Oszg catheter is present with distal tip terminating within the region of the mid SVC. Atherosclerosis of the aorta. No pneumothorax, pleural effusion or focal airspace consolidation. Lungs are mildly hypoinflated with bronchovascular crowding. Increased lucency of the lungs suggests emphysema. The bones are grossly intact. Suggested right shoulder calcific tendinosis of the rotator cuff. IMPRESSION: No acute cardiopulmonary process. The above report was generated using voice recognition software. It may contain grammatical, syntax or spelling errors. Electronically signed by: Tushar Landeros M.D. 03/07/2017 7:30 AM Dictated Date/Time: 03/07/2017 7:28 AM
[2017-03-07] MEDS: MoRPHine SULFATE CR 15 MG TAB (MS CONTIN) PO SCH ×2 (07:32→20:32)
[2017-03-07] MEDS: INSULIN ASPART 100 UNITS/ML 3 ML PEN SC SCH ×4 (07:37→20:25)
[2017-03-07] MEDS: INSULIN GLARGINE SOLOSTAR 100 UNITS/ML 3 ML PEN SC SCH ×2 (07:39→20:33)
[2017-03-07] MEDS: BREO ELLIPTA: ORDER AWAITING ACTION SCH (07:57)
[2017-03-07 08:59] LABS: ESTIMATED AVERAGE GLUCOSE 128 mg/dl; HA1C FLAG Normal (Normal)
[2017-03-07] MEDS ORDERED: DOCUSATE SODIUM 100 MG CAP PO ONE (09:28)
--- NOTE | 2017-03-07 10:57 | Pulmonary Consultation ---
History General Date of Service: Mar 07, 2017. Stated Complaint: Respiratory Failure HPI As The patient is a 61 year old female who presents to [facility] with complaints of Respiratory Failure. The patient's primary care provider is August Esposito MD. Ms. Lanier is a 61-year-old female with COPD on long-term oxygen therapy of 4-6 L/ m nasal cannula secondary to alpha-1 antitrypsin deficiency as well as previous tobacco use disorder, who presented to the ER with complaints of worsening dyspnea associated with fever, chills, and nonproductive cough. She has difficulty clearing secretions. She also complains of pleuritic back/ chest pain associated with deep breathing. She denies any lower extremity edema or swelling, orthopnea or paroxysmal nocturnal dyspnea. She denies any recent travel. Her exercise tolerance is limited to a few feet. Her activities of daily living are becoming more difficult. Often feels lonely at home due to limitations and inability to leave the house. Her was recently sick with URI. Of note she has had previous bronchoscopies in past, which grew Aspergillus and she was treated with voriconazole. Her current medications include Breo Ellipta 1 puff inh daily, Spiriva HandiHaler 1 puff in the a.m., roflulimast 1 puff 500 mcg po every morning, ipratropium bromide 4 times a day, aformoterol 50 g inhalation twice a day, albuterol sulfate every 4 hours. She was recently seen in pulmonary clinic by Dr. Georges in December 2016 and treated for acute exacerbation of COPD. She received a steroid taper as well as Levaquin 750 mg. Her home respiratory medications include albuterol 2 puffs inhaler every 4 hours when necessary, guaifenesin ER 600 mg by mouth every 12 hours, Xopenex 3 mg nebulizer 3 times a day when necessary. Now on Morphine for chronic dyspnea. Vital signs in the ER showed a temperature of 39.3, pulse 110, respiratory rate of 33, blood pressure 131/86, saturating 93% on 5 L nasal cannula. She still remained quite tachypneic and physical exam was noted for wheezing throughout bilateral lung woodard. She was subsequently placed on BiPAP 12/5 cm H2O, respiratory rate of 14 and FiO2 of 40%. ABG -7.42/41/124/26/98%. Laboratory data showed a white blood cell count of 14.91, hemoglobin of 12.4, and platelet count of 252. Chemistry was significant for a BUN of 22 and creatinine of 1.9, random glucose 134. Magnesium was 1.7 and subsequently repleted. Troponin less than 0.015. Lactate 2.4 which increased to 5. Repeat lactate this morning 3.6. Pro-calcitonin less than 0.05. Coags within normal limits. Liver function tests within normal limits. Influenza A and B PCR negative. Blood cultures pending. MRSA nasal swab screen negative. Chest x-ray on admission shows a left subclavian central venous infusion port atherosclerotic calcifications of the thoracic aortic. Bibasilar atelectasis and emphysematous changes with chronic interstitial thickening. This appears to be unchanged from previous images. Every day In the emergency room she received Solu-Medrol 125 mg 1 dose, DuoNeb as 12 ml 1 dose, Ativan 1 mg 1 dose Levaquin 750 mg 1 dose, Tylenol 1000 mg by mouth 1 dose, 17 1 g 1 dose magnesium sulfate 1 g. as Repeat chest x-ray done this morning shows increased lucency of the lung suggestive of emphysema associated with mild hypoinflation with bronchovascular crowding. Previous history: Six Minute Walk Test (6MWT) 01/13/2017 Baseline O2 needs: Initially, no supplemental oxygen was needed. Baseline VS and Juvencio scale: HR: 80,~RR: 18 ,~O2 sat: 95%,~Juvencio scale score: 1 1 min VS and Juvencio Scale: HR: 100,~O2 sat: 87%,~Pt. wheezing heavily, stopped patient put her on 5L of O2, Pt. shy to 96%. Had patient go back to exam room, I made dr. Georges aware. He stated not to do anymore. Reason for Premature Termination: per Dr. Georges. PFT 02/23/2016 Spirometry is FEV1/FVC ratio 57% FEV1 45% Lung volumes TLC 5.84, 130 RV 3.95, 234 Diffusion DLCO 32% Transthoracic echocardiogram 10/05/2011 LV is normal in size There is normal left ventricular wall thickness LV systolic function is normal The segmental left ventricular wall motion abnormalities noted EF = 65-70% The left ventricular wall motion is normal Right ventricular cavity size is normal The right ventricular systolic function is normal, TAPSE normal > 1.5 cm. Historian: patient Onset: last week Severity: severe Complaint Status: improved Review of Systems Constitutional: reports: as stated in HPI Eyes: reports: as stated in HPI ENT: reports: as stated in HPI Cardiovascular: reports: as stated in HPI Respiratory: reports: as stated in HPI Gastrointestinal: reports: as stated in HPI Genitourinary - Female: reports: as stated in HPI Musculoskeletal: reports: as stated in HPI Integumentary: reports: as stated in HPI Neurologic: reports: as stated in HPI Psychiatric: reports: as stated in HPI Endocrine: as stated in HPI Hematologic / Lymphatic: as stated in HPI Allergic / Immunologic: as stated in HPI All Other Symptoms All Other Systems: Reviewed and Negative Past Medical History Past Medical History: Active Problems ActiveProblems 1. AAT ([id number]) deficiency (E88.01) 2. Aspergillosis, with pneumonia (B44.9) 3. Back pain (M54.9) 4. Cellulitis of leg (L03.119) 5. Cervical myopathy (G72.9) 6. Chronic obstructive pulmonary disease (J44.9) 7. Chronic respiratory failure (J96.10) 8. Chronic rhinitis (J31.0) 9. Cough (R05) 10. DDD (degenerative disc disease) 11. Degeneration, intervertebral disc, thoracic (M51.34) 12. Dependence on supplemental oxygen (Z99.81) 13. Depression (F32.9) 14. Diabetes mellitus (E11.9) 15. Edema leg (R60.0) 16. Esophageal reflux (K21.9) 17. Hiatal hernia (K44.9) 18. Hypertension (I10) 19. Hypoxemia (R09.02) 20. Lymphadenopathy (R59.1) 21. Lymphoma (C85.90) 22. Osteoarthritis 23. Osteoarthrosis (M19.90) 24. Pain Syndromes 25. Proteinuria (R80.9) 26. Shortness of breath (R06.02) 27. Wheezing (R06.2) Past Medical History 1. History of COPD with acute exacerbation (J44.1) 2. Personal history of pulmonary embolism (Z86.711) Past Medical History: cancer - lymphoma, chemotherapy, COPD, depression, lung disease, pneumonia, other Past Surgical History: Surgical History 1. History of Back Surgery 2. History of Hysterectomy 3. History of Shoulder Surgery Past Surgical History: hysterectomy Family History Cancer Diabetes mellitus FATHER Lung disease FATHER BROTHER Family History 1. Family history of malignant neoplasm of kidney (Z80.51) 2. Family history of diabetes mellitus (Z83.3) 3. Family history of emphysema (Z82.5)--Father 62 years of alpha 1 antitrypsin deficiency. 4. Family history of leukemia (Z80.6) Social History Social History Former smoker (Z87.891) No alcohol use Hx Tobacco Use In Past Year?: No Smoking Status: Former Smoker Alcohol: never Drug Use: none Marital status: Housing status: lives with family Occupational Status: disabled Immunizations History of Influenza Vaccine: Yes Influenza Vaccine Date: Jan 24, 2014 History of Tetanus Vaccine?: Yes History of Pneumococcal: Yes Pneumococcal Date: May 16, 2005 History of Hepatitis B Vaccine: Yes History of MDRO History of MDRO: No Allergies Coded Allergies: Sulfamethoxazole w/Trimethoprim (Verified Allergy, Unknown, RASH, 03/06/17) Current Medications Reported Home Medications Medications Dose Route/Sig Max Daily Dose Days Date Category Ventolin Hfa (Albuterol) 200 Puffs/05944 Mcg Aers 2 Puffs INH Q4 PRN 03/06/17 Reported Brovana (Arformoterol Tartrate) 15 Mcg/2 Ml Neb 15 Mcg INH BID 03/06/17 Reported Guaifenesin Er (Guaifenesin) 600 Mg Tabcr 600 Mg PO Q12H PRN 03/06/17 Reported Vitamin D3 (Cholecalciferol) 1,000 Unit Tab 1 Tab PO DAILY 90 03/06/17 Reported Micro-K Ext Rel (Potassium Chloride) 10 Meq Capcr 20 Meq PO QAM 03/06/17 Reported Basaglar Kwikpen (Insulin Glargine) 100 Unit/Ml Inj 12 Units SC BID 03/06/17 Reported Morphine Sulfate 10 Mg/0.5 Ml Soln 5-10 Mg PO Q4 PRN 03/06/17 Reported Metformin HCl 500 Mg Tab 500 Mg PO BID 03/06/17 Reported Morphine Sulfate Er (Morphine Sulfate) 30 Mg Tab 30 Mg PO BID 03/06/17 Reported Levalbuterol HCl (Levalbuterol) 1.25 Mg/3 Ml Nebu 3 Ml NEB TID PRN 03/15/16 Reported Breo Ellipta (Fluticasone Furoate-Vilanterol) 1 Inh Inh 1 Puff INH DAILY 03/15/16 Reported Pantoprazole Sodium (Pantoprazole) 40 Mg Tab 40 Mg PO DAILY 03/15/16 Reported Celexa (Citalopram Hydrobromide) 40 Mg Tab 40 Mg PO DAILY 03/15/16 Reported Novolog (Insulin Aspart) 100 Units/Ml Inj 5 Units SQ TIDM PRN 03/15/16 Reported B-12 (Cyanocobalamin) 1,000 Mcg Tab 1,000 Mcg PO QAM 03/15/16 Reported Ipratropium [place] 0.5 Mg/2.5 Ml Nebu 1 Vial NEB QID 30 10/14/15 Reported Daliresp (Roflumilast) 500 Mcg Tab 500 Mcg PO QAM 10/14/15 Reported Spiriva Handihaler (Tiotropium [place]) 5 Puff/90 Mcg Aerp 1 Puff INH QAM 30 09/09/15 Rx Ibuprofen 600 Mg Tab 1 Tab PO Q6 PRN 04/01/15 Reported Miralax (Polyethylene Glycol 3350) 1 Pow Pow 17 Gm PO DAILY PRN 04/01/15 Reported Albuterol Sulfate 0.083% For Inh (Albuterol Sulf) 3 Ml Nebu 3 Ml INH UD 04/01/15 Reported Zantac (Ranitidine HCl) 300 Mg Tab 300 Mg PO BID 06/26/14 Reported Oxygen Gas 5-6 Liter NA CONTINOUS 10/04/11 Reported Os-Oliverio 500 Plus D (Calcium/Vitamin D) Tab 1 Tab PO QAM 10/28/10 Reported Physical Physical Exam Vital Signs: Date Time Temp Pulse Resp B/P (MAP) Pulse Ox O2 Delivery O2 Flow Rate FiO2 03/07/17 07:03 96 18 97 Mask 6.0 03/07/17 06:00 92 18 165/72 (103) 98 Oxymask 6.0 03/07/17 05:00 91 25 164/71 (102) 97 Oxymask 6.0 03/07/17 04:00 89 21 152/66 (94) 95 Oxymask 6.0 03/07/17 04:00 36.7 03/07/17 04:00 Oxymask 6.0 03/07/17 03:32 90 17 95 Mask 6.0 03/07/17 03:01 85 15 157/68 (97) 94 Oxymask 6.0 03/07/17 02:00 84 25 156/70 (98) 95 Oxymask 6.0 03/07/17 01:00 83 23 143/62 (89) 96 Oxymask 6.0 03/07/17 00:01 Oxymask 6.0 03/07/17 00:00 36.8 81 21 134/59 (84) 95 Oxymask 6.0 03/06/17 23:01 86 20 95 Mask 6.0 03/06/17 23:00 80 24 140/60 (86) 97 Oxymask 6.0 03/06/17 22:00 83 18 128/60 (82) 97 Oxymask 6.0 03/06/17 21:00 88 20 131/57 (81) 96 Oxymask 6.0 03/06/17 20:00 37.0 94 22 137/64 (88) 98 BiPAP 40 03/06/17 20:00 BiPAP 40 03/06/17 19:07 98 22 98 BiPAP/CPAP 40 03/06/17 19:00 90 17 124/54 (77) 96 BiPAP 40 03/06/17 19:00 98 98 40 03/06/17 18:06 95 24 107/60 (76) 98 BiPAP 40 03/06/17 17:00 37.7 97 26 108/50 40 BiPAP 03/06/17 16:48 102 98 40 03/06/17 16:25 97 03/06/17 16:00 37.7 102 21 124/52 99 BiPAP 03/06/17 15:03 116 20 108/68 99 BiPAP 03/06/17 14:30 122 21 111/54 99 BiPAP 5.0 40 03/06/17 14:15 119 24 99 BiPAP 03/06/17 13:55 124 20 100 BiPAP 03/06/17 13:35 115 30 100 BiPAP 03/06/17 13:15 110 26 100 BiPAP 03/06/17 13:13 100 BiPAP 03/06/17 13:13 109 26 131/81 100 BiPAP 03/06/17 13:09 112 99 40 03/06/17 13:08 116 32 97 BiPAP/CPAP 40 03/06/17 13:00 93 Nasal Cannula 5.0 03/06/17 12:54 101 03/06/17 12:40 39.3 110 33 131/86 93 Nasal Cannula 5.0 General Appearance: WELL-APPEARING, WD/WN, NO APPARENT DISTRESS Head: NORMOCEPHALIC, ATRAUMATIC Eyes: PERRLA, NO DISCHARGE, EOMI, SCLERAE NORMAL, CONJUNCTIVAE NORMAL ENT: NORMAL MOUTH EXAM, NORMAL THROAT EXAM Neck: NORMAL RANGE OF MOTION, NO TENDERNESS, TRACHEA MIDLINE, NO STRIDOR, SUPPLE, NO THYROMEGALY Respiratory: NO RESPIRATORY DISTRESS, wheezing (sporadic wheezing), other ( Speaking in full sentences, diminished breath sounds bilaterallym chest wall-- left mediport) Cardiovasular: REGULAR RATE/RHYTHM, NORMAL S1S2, NO M/G/R, NORMAL PERIPHERAL PULSES Abdomen: NON TENDER, NORMAL BOWEL SOUNDS Back: NORMAL INSPECTION, NO MIDLINE TENDERNESS Upper Extremities: other Lower Extremities: other (trace lower extremity edema) Pulses: dorsalis pedis (R) (2+), dorsalis pedis (L) (2+) Neuro: ALERT, ORIENTED x 3, NORMAL MOTOR EXAM, NORMAL SENSATION, NORMAL SPEECH , NORMAL MEMORY Psychiatric: NORMAL AFFECT, NO SUICIDAL IDEATION, CONTRACTS FOR SAFETY Diagnostics Labs Results Past 24 Hours Test 03/06/17 13:15 03/06/17 13:32 03/06/17 17:19 03/06/17 17:20 Range/Units White Blood Count 14.91 4.8-10.8 K/uL Red Blood Count 4.34 4.2-5.4 M/uL Hemoglobin 12.4 12.0-16.0 g/dL Hematocrit 38.3 37-47 % Mean Corpuscular Volume 88.2 80-100 fL Mean Corpuscular Hemoglobin 28.6 25-34 pg Mean Corpuscular Hemoglobin Concent 32.4 32-36 g/dl Platelet Count 252 130-400 K/uL Mean Platelet Volume 9.5 7.4-10.4 fL Neutrophils (%) (Auto) 72.2 % Lymphocytes (%) (Auto) 18.5 % Monocytes (%) (Auto) 7.6 % Eosinophils (%) (Auto) 1.1 % Basophils (%) (Auto) 0.3 % Neutrophils # (Auto) 10.77 1.4-6.5 K/uL Lymphocytes # (Auto) 2.76 1.2-3.4 K/uL Monocytes # (Auto) 1.13 0.11-0.59 K/uL Eosinophils # (Auto) 0.16 0-0.5 K/uL Basophils # (Auto) 0.04 0-0.2 K/uL RDW Standard Deviation 43.5 36.4-46.3 fL RDW Coefficient of Variation 13.4 11.5-14.5 % Immature Granulocyte % (Auto) 0.3 % Immature Granulocyte # (Auto) 0.05 0.00-0.02 K/uL Prothrombin Time 10.1 9.0-12.0 SECONDS Prothromb Time International Ratio 0.9 0.9-1.1 Activated Partial Thromboplast Time 24.8 21.0-31.0 SECONDS Partial Thromboplastin Ratio 1.0 Sodium Level 137 136-145 mmol/L Potassium Level 4.2 3.5-5.1 mmol/L Chloride Level 104 98-107 mmol/L Carbon Dioxide Level 25 21-32 mmol/L Anion Gap 8.0 3-11 mmol/L Blood Urea Nitrogen 22 7-18 mg/dl Creatinine 1.19 0.60-1.20 mg/dl Est Creatinine Clear Calc Drug Dose 47.4 ml/min Estimated GFR () 56.7 Estimated GFR (Non- 48.9 BUN/Creatinine Ratio 18.3 10-20 Random Glucose 134 70-99 mg/dl Lactic Acid Level 2.4 0.4-2.0 mmol/L Calcium Level 9.1 8.5-10.1 mg/dl Magnesium Level 1.7 1.8-2.4 mg/dl Troponin I < 0.015 0-0.045 ng/ml Arterial Blood pH 7.42 7.35-7.45 Arterial Blood Partial Pressure CO2 41 35-46 mmHg Arterial Blood Partial Pressure O2 124 80-95 mm/Hg Arterial Blood HCO3 26 19-24 mmol/L Arterial Blood Oxygen Saturation 98.7 90-95 % Arterial Blood Base Excess 0.9 -9-1.8 mEq/L Arterial Blood Gas Delivery 40% Nigel Test POS POS Bedside Glucose 180 70-90 mg/dl Influenza Type A (RT-PCR) Neg for Influ A NEG Influenza Type B (RT-PCR) Neg for Influ B NEG Test 03/06/17 18:05 03/06/17 21:08 03/07/17 00:26 03/07/17 00:27 Range/Units Lactic Acid Level 5.0 3.6 0.4-2.0 mmol/L Bedside Glucose 211 201 70-90 mg/dl Phosphorus Level 2.6 2.5-4.9 mg/dl Magnesium Level 2.0 1.8-2.4 mg/dl Total Bilirubin 0.4 0.2-1 mg/dl Direct Bilirubin < 0.1 0-0.2 mg/dl Aspartate Amino Transf (AST/SGOT) 19 15-37 U/L Alanine Aminotransferase (ALT/SGPT) 24 12-78 U/L Alkaline Phosphatase 67 45-117 U/L Total Protein 6.7 6.4-8.2 gm/dl Albumin 3.1 3.4-5.0 gm/dl Procalcitonin < 0.05 0-0.5 ng/ml Test 03/07/17 04:55 03/07/17 06:33 Range/Units White Blood Count 10.26 4.8-10.8 K/uL Red Blood Count 3.72 4.2-5.4 M/uL Hemoglobin 10.5 12.0-16.0 g/dL Hematocrit 32.9 37-47 % Mean Corpuscular Volume 88.4 80-100 fL Mean Corpuscular Hemoglobin 28.2 25-34 pg Mean Corpuscular Hemoglobin Concent 31.9 32-36 g/dl Platelet Count 183 130-400 K/uL Mean Platelet Volume 9.6 7.4-10.4 fL Neutrophils (%) (Auto) 93.7 % Lymphocytes (%) (Auto) 5.0 % Monocytes (%) (Auto) 1.1 % Eosinophils (%) (Auto) 0.0 % Basophils (%) (Auto) 0.0 % Neutrophils # (Auto) 9.62 1.4-6.5 K/uL Lymphocytes # (Auto) 0.51 1.2-3.4 K/uL Monocytes # (Auto) 0.11 0.11-0.59 K/uL Eosinophils # (Auto) 0.00 0-0.5 K/uL Basophils # (Auto) 0.00 0-0.2 K/uL RDW Standard Deviation 43.4 36.4-46.3 fL RDW Coefficient of Variation 13.5 11.5-14.5 % Immature Granulocyte % (Auto) 0.2 % Immature Granulocyte # (Auto) 0.02 0.00-0.02 K/uL Sodium Level 141 136-145 mmol/L Potassium Level 3.9 3.5-5.1 mmol/L Chloride Level 109 98-107 mmol/L Carbon Dioxide Level 23 21-32 mmol/L Anion Gap 9.0 3-11 mmol/L Blood Urea Nitrogen 16 7-18 mg/dl Creatinine 0.75 0.60-1.20 mg/dl Est Creatinine Clear Calc Drug Dose 75.2 ml/min Estimated GFR () 99.0 Estimated GFR (Non- 85.4 BUN/Creatinine Ratio 20.9 10-20 Random Glucose 192 70-99 mg/dl Calcium Level 7.8 8.5-10.1 mg/dl Bedside Glucose 176 70-90 mg/dl Microbiology Results 03/06/17 Blood Culture, Received Pending 03/06/17 Blood Culture, Received Pending 03/06/17 MRSA DNA Surveillance Screen - Final, Complete Specimen Negative for MRSA by DNA Probe 03/06/17 Urine Culture, Received Pending Diagnostic Radiology CHEST ONE VIEW PORTABLE 03/07/2017 HISTORY: 61 years-old Female copd exacerbation acute shortness of breath COMPARISON: Chest radiograph 03/06/2017 TECHNIQUE: Portable upright AP view of the chest FINDINGS: Cardiac silhouette is upper limits of normal. Left subclavian Biryiy-f-[id number] catheter is present with distal tip terminating within the region of the mid SVC. Atherosclerosis of the aorta. No pneumothorax, pleural effusion or focal airspace consolidation. Lungs are mildly hypoinflated with bronchovascular crowding. Increased lucency of the lungs suggests emphysema. The bones are grossly intact. Suggested right shoulder calcific tendinosis of the rotator cuff. IMPRESSION: No acute cardiopulmonary process. Impression Assessment and Plan Acute on chronic hypoxic respiratory failure. Severe COPD exacerbation Alpha-1 antitrypsin deficiency. Lactic acidosis. Ms. Lanier is acute on chronic hypoxic respiratory failure secondary to COPD exacerbation. Patient had similar symptoms about 1 month ago and was treated as an outpatient with steroid taper as well as Levaquin. She still remains quite dyspneic on exertion associated with chronic cough. This is most likely a progression of her disease. Chest x-ray shows emphysematous changes with some mild interstitial septal thickening. Review of previous history and exams from outpatient clinic she does have significant air trapping on pulmonary function exam and does have moderate COPD suggested by decreased DLCO and FEV1. She also has history of bilateral pulmonary embolism diagnosed in 2012. At the current time I would continue with BiPAP when necessary for dyspnea and to assist with the work of breathing. I would maintain an SaO2 between 88-92%. Continue with nasal cannula in between. She is normally on 4-6 L nasal cannula at home depending on exertion. Due to the chronicity of her symptoms I do not feel that a CT angios to rule out PE is needed at this time. However she does still remained hypoxic will consider. I will continue with broad-spectrum antibiotics. Will send Fungitell, aspergillus Ag, mycoplasma Ig M and urine legionella. Pro-calcitonin is within normal limits. She may benefit from a 5 day of antibiotics due to anti- inflammatory effects. Continue with IV corticosteroids. She may benefit from a slow taper. Continue with nebulizers every 4-6 hours and when necessary. Patient does not appear to be septic therefore I feel that lactic acidosis may be secondary to type B lactic acidosis from albuterol nebulizers and the overall work of breathing. Nonetheless is downtrending. Continue with Prolastin C for alpha anti alpha trypsin deficiency. to bring in today. Continue with morphine sulfate 50 mg by mouth every 4 when necessary for dyspnea. Continue with guaifenesin 600 mg by mouth every 12 hours Continue with Roflulimast. Obtain Fungitell, Aspergillus Ag, sputum culture. Continue with aggressive pulmonary toilet with flutter valve and Dornase alpha. Continue with DVT and GI prophylaxis Consider palliative care consult if her respiratory continues to worsen. She has been worked up in the past for possible transplant, but feels that this is not the best option for her as she will have to on antirejection medications which are costly and may not tolerate them well. I appreciate the consult. Please contact me if you have any question. Advanced Directives Living Will: attached to the chart
--- NOTE | 2017-03-07 10:59 | Critical Care Progress Note ---
Critical Care Progress Note Date of Service Mar 07, 2017. ICU Day ICU Day Number: [address] Forman Subjective Patient states that she is feeling much better than she was on admission. Her breathing is close to baseline, although she feels dyspneic on exertion. At baseline, she is able to ambulate at home without exertional dyspnea. She denies CP, palpitations. She has diminished appetite, but is other tolerating diet without N/V/abdominal pain. She does however feel bloated and constipated, and is requesting Miralax. no issues with voiding. Describes minimal swelling in all 4 extremities, but no pain. Management plan was discussed and questions were answered. Objective GENERAL: alert, comfortable appearing, sitting out of bed, no acute distress, non-toxic HEAD: Normocephalic, atraumatic. No sinus tenderness. EYES: PERRL, EOMI, normal sclera and conjunctiva OROPHARYNX: No exudate, no erythema. Lips, buccal mucosa, and tongue normal and mucous membranes are tacky NECK: Supple, no nuchal rigidity, no adenopathy, non-tender CHEST/LUNGS: No reproducible tenderness. Normal chest wall mechanics without accessory muscle usage. Diminished air entry bilaterally. No crepitations, crackles, or wheezes appreciated HEART: RRR, S1 and S2 normal, no murmurs appreciated ABDOMEN: Soft, non-tender, normo-active bowel sounds, mildly distended without appreciable organomegaly, no masses, no rebound or guarding. BACK: Back is symmetrical on inspection, no deformities, no midline tenderness, no CVA tenderness. SKIN: Warm, pink, dry. No erythema, rashes, or bruising. EXTREMITIES: Moving all 4 limbs, strength 5/5. Mild swelling of ankle and forearms. Calves supple. NEURO: Alert, Ox3. No focal deficits. Normal sensorium, cranial nerves II-XII grossly intact, normal speech PSYCH: Mood and affect appropriate. Current SOFA Score SOFA Score Response (Comments) Value Platelets (x10) > 150 0 Bilirubin (mg/dL) < 1.2 0 [place] Coma Score 15 0 Level of Hypotension No Hypotension 0 Creatinine (mg/dL) < 1.2 0 Total 0 Assessment & Plan Reason Critically Ill: 61-year-old female with acute hypoxic respiratory failure on chronic disease state. History of COPD and alpha-1 antitrypsin deficiency for which she follows with pulmonology. Patient with acute febrile illness with increasing oxygen requirement requiring BiPAP support. Neuro - * CAM ICU: NEGATIVE * Chronic back pain - Morphine PO as at home - PRN morphine for breakthrough pain. * Depression - Continue Celexa. * Anxiety - Ativan PRN - especially with BiPAP in place. Cardiac - * No history of cardiac disease. Known history of "heart murmur" * EKG on admission demonstrates sinus tachycardia @ 112bpm w/ non-specific ST/T- wave changes which is essentially unchanged from 03/16/2016. QTc: 434ms. Respiratory - * Acute on chronic hypoxic respiratory failure in setting of COPD 2/2 alpha-1 antitrypsin deficiency: * Continue methylprednisone 40mg q6h * Continue Daliresp and nebulizers: Brovana, Xopenex - With weaning of steroids, may want to consider Symbicort or Advair temporarily while in hospital for steroid supplementation. Will need Breo refill on discharge. * Supplemental O2 via oxymask or nasal cannula. Can revert to Bipap if respiratory distress. Baseline O2 use is ~5L * Takes Prolastin weekly. to bring in medication tomorrow (03/08). * Appreciate Pulmonary Consultation. * History of PE: * Clinical picture does not lend itself to this diagnosis. * Improving w/ symptomatic treatment as described above. * If O2 requirement or s/s were to change - consider CTA to evaluate for PE. GI - * GERD - continue Zantac/Protonix. * Advance diet since no longer on Bipap. Recommend DM diet when tolerating. * Bowel regimen: Colace BID, Miralax PRN RENAL/LYTES - * Monitor electrolytes daily - replace appropriately. * Continue supplemental K+ per home dosing. * Current IVF of NSS @100mL/hr. May consider reducing/discontinuing as diet increases/with improvement of lactic acidosis - * No Mccartney catheter at this time. ENDO - * History of DM on insulin/Metformin at home. * ISS for BSG coverage per protocol. * Anticipate hyperglycemia in the setting of stress and steroid dosing. HEME - * Stable H&H. * Mild anemia. Will do iron studies * Slight leukocytosis. ID - * Likely Sepsis with ??pulmonary source: * Blood/UA Cultures pending. * Ordered aspergilloses (has previous history), fungitel, urine legionella, urine mycoplasma, as per pulmonology * Continue Cefepime/Levaquin at this time. * Lactic acid downtrending. Will trend * Procalcitonin negative * Monitor fever curve. LINES/IV ACCESS - * LEFT Subclavian A-Port as current access. DVT PROPHYLAXIS - * Lovenox SQ * SCDs Resident Physician Supervision Note: I was present with Dr. Toledo during the history and exam. I discussed the case with the resident and agree with the findings and plan as documented in the note. Any exceptions or clarifications are listed here: None Documented By: Yuval Forman Consults & Procedures Consultants: Pulmonology Procedures: Nil Data Medications: Current Inpatient Medications Medications (Trade) Dose Ordered Sig/Aram Route Start Time Stop Time Status Last Admin Dose Admin Levalbuterol (Xopenex 1.25MG/ 0.5ML Neb) 1.25 mg Q4R INH 03/06/17 16:00 04/05/17 15:59 03/07/17 03:32 1.25 MG Methylprednisolone Sodium Succinate 40 mg/Syringe 0.64 ml @ 1.5 mls/min Q6H IV 03/06/17 20:00 04/05/17 19:59 03/07/17 07:29 1.5 MLS/MIN Levofloxacin (Consult) 1 ea UD PRN N/A 03/06/17 15:25 04/05/17 15:24 Sodium Chloride 1,000 ml @ 125 mls/hr Q8H IV 03/06/17 17:00 04/05/17 16:59 03/07/17 01:13 125 MLS/HR Insulin Aspart (novoLOG ASPART) SLIDING SCALE If C... ACHS SC 03/06/17 16:00 04/05/17 15:59 03/07/17 07:37 1 UNITS Glucose (Glucose 40% Gel) 15-30 GRAMS 15 GRAMS... UD PRN PO 03/06/17 15:15 04/05/17 15:14 Glucose (Glucose Chew Tab) 4-8 Tablets 4 Tabl... UD PRN PO 03/06/17 15:15 04/05/17 15:14 Dextrose (Dextrose 50% 50ML Syringe) 25-50ML OF 50% DW IV FOR... UD PRN IV 03/06/17 15:15 125/17 15:14 Glucagon (Glucagon Inj) 1 mg UD PRN SQ 03/06/17 15:15 04/05/17 15:14 Miscellaneous Information (Consult Glycemic Management Pharmacy) 1 ea UD PRN N/A 03/06/17 15:27 04/05/17 15:26 Arformoterol Tartrate (Brovana 15MCG/ 2ML Neb Soln) 15 mcg BIDR INH 03/06/17 20:00 04/05/17 19:59 03/07/17 06:59 15 MCG Citalopram Hydrobromide (celeXA TAB) 40 mg DAILY PO 03/07/17 09:00 04/06/17 08:59 03/07/17 07:30 40 MG Pantoprazole Sodium (Protonix Tab) 40 mg DAILY PO 03/07/17 09:00 04/06/17 08:59 03/07/17 07:30 40 MG Potassium Chloride (Klor-Con Tab) 20 meq QAM PO 03/07/17 09:00 04/06/17 08:59 03/07/17 07:31 20 MEQ Ranitidine HCl (zANTac TAB) 300 mg BID PO 03/06/17 21:00 04/05/17 20:59 03/07/17 07:29 300 MG Roflumilast (Daliresp Tab) 500 mcg QAM PO 03/07/17 09:00 04/06/17 08:59 03/07/17 07:30 500 MCG Miscellaneous Information (Order Awaiting Action) 1 ea QS N/A 03/06/17 16:00 04/05/17 15:59 Enoxaparin Sodium (Lovenox Inj) 40 mg QPM SQ 03/06/17 21:00 04/05/17 20:59 03/06/17 20:12 40 MG Acetaminophen (Tylenol Tab) 650 mg Q4H PRN PO 03/06/17 15:15 04/05/17 15:14 Cefepime HCl (Consult) 1 ea UD PRN N/A 03/06/17 16:00 04/05/17 15:59 Morphine Sulfate (Oramorph Sr Tab) 30 mg BID PO 03/06/17 21:00 03/20/17 20:59 Future hold 03/07/17 07:32 30 MG Cefepime HCl 2000 mg/Syringe 20 ml @ 5 mls/min Q12H IV 03/06/17 20:00 03/13/17 19:59 03/07/17 07:29 5 MLS/MIN Heparin Sodium (Porcine) (Heparin 100 Unit/ml 5ml Flush) 5 ml PRN PRN IV 03/07/17 01:00 04/06/17 00:59 Levofloxacin 750 mg/Prmx 150 ml @ 100 mls/hr Q24H IV 03/07/17 14:00 03/13/17 13:59 Insulin Glargine (Lantus Solostar Pen) 18 units BID SC 03/07/17 09:00 04/06/17 08:59 03/07/17 07:39 18 UNITS Docusate Sodium (coLACE CAP) 100 mg BID PO 03/07/17 21:00 04/06/17 20:59 UNV Docusate Sodium (coLACE CAP) 100 mg 0928 ONCE PO 03/07/17 09:28 03/07/17 09:29 UNV Polyethylene (Miralax Powder Packet) 17 gm DAILY PRN PO 03/07/17 09:30 04/06/17 09:29 UNV Vital Signs: Date Time Temp Pulse Resp B/P (MAP) Pulse Ox O2 Delivery O2 Flow Rate FiO2 03/07/17 08:00 Nasal Cannula 6.0 03/07/17 08:00 36.9 105 24 131/91 (104) 98 Nasal Cannula 6.0 03/07/17 07:03 96 18 97 Mask 6.0 03/07/17 06:00 92 18 165/72 (103) 98 Oxymask 6.0 03/07/17 05:00 91 25 164/71 (102) 97 Oxymask 6.0 03/07/17 04:00 89 21 152/66 (94) 95 Oxymask 6.0 03/07/17 04:00 36.7 03/07/17 04:00 Oxymask 6.0 03/07/17 03:32 90 17 95 Mask 6.0 03/07/17 03:01 85 15 157/68 (97) 94 Oxymask 6.0 03/07/17 02:00 84 25 156/70 (98) 95 Oxymask 6.0 03/07/17 01:00 83 23 143/62 (89) 96 Oxymask 6.0 03/07/17 00:01 Oxymask 6.0 03/07/17 00:00 36.8 81 21 134/59 (84) 95 Oxymask 6.0 03/06/17 23:01 86 20 95 Mask 6.0 03/06/17 23:00 80 24 140/60 (86) 97 Oxymask 6.0 03/06/17 22:00 83 18 128/60 (82) 97 Oxymask 6.0 03/06/17 21:00 88 20 131/57 (81) 96 Oxymask 6.0 03/06/17 20:00 37.0 94 22 137/64 (88) 98 BiPAP 40 03/06/17 20:00 BiPAP 40 03/06/17 19:07 98 22 98 BiPAP/CPAP 40 03/06/17 19:00 90 17 124/54 (77) 96 BiPAP 40 03/06/17 19:00 98 98 40 03/06/17 18:06 95 24 107/60 (76) 98 BiPAP 40 03/06/17 17:00 37.7 97 26 108/50 40 BiPAP 03/06/17 16:48 102 98 40 03/06/17 16:25 97 03/06/17 16:00 37.7 102 21 124/52 99 BiPAP 03/06/17 15:03 116 20 108/68 99 BiPAP 03/06/17 14:30 122 21 111/54 99 BiPAP 5.0 40 03/06/17 14:15 119 24 99 BiPAP 03/06/17 13:55 124 20 100 BiPAP 03/06/17 13:35 115 30 100 BiPAP 03/06/17 13:15 110 26 100 BiPAP 03/06/17 13:13 100 BiPAP 03/06/17 13:13 109 26 131/81 100 BiPAP 03/06/17 13:09 112 99 40 03/06/17 13:08 116 32 97 BiPAP/CPAP 40 03/06/17 13:00 93 Nasal Cannula 5.0 03/06/17 12:54 101 03/06/17 12:40 39.3 110 33 131/86 93 Nasal Cannula 5.0 Laboratory Results: Last 24 Hours Test 03/06/17 13:15 03/06/17 13:32 03/06/17 17:19 03/06/17 17:20 White Blood Count 14.91 K/uL Red Blood Count 4.34 M/uL Hemoglobin 12.4 g/dL Hematocrit 38.3 % Mean Corpuscular Volume 88.2 fL Mean Corpuscular Hemoglobin 28.6 pg Mean Corpuscular Hemoglobin Concent 32.4 g/dl Platelet Count 252 K/uL Mean Platelet Volume 9.5 fL Neutrophils (%) (Auto) 72.2 % Lymphocytes (%) (Auto) 18.5 % Monocytes (%) (Auto) 7.6 % Eosinophils (%) (Auto) 1.1 % Basophils (%) (Auto) 0.3 % Neutrophils # (Auto) 10.77 K/uL Lymphocytes # (Auto) 2.76 K/uL Monocytes # (Auto) 1.13 K/uL Eosinophils # (Auto) 0.16 K/uL Basophils # (Auto) 0.04 K/uL RDW Standard Deviation 43.5 fL RDW Coefficient of Variation 13.4 % Immature Granulocyte % (Auto) 0.3 % Immature Granulocyte # (Auto) 0.05 K/uL Prothrombin Time 10.1 SECONDS Prothromb Time International Ratio 0.9 Activated Partial Thromboplast Time 24.8 SECONDS Partial Thromboplastin Ratio 1.0 Sodium Level 137 mmol/L Potassium Level 4.2 mmol/L Chloride Level 104 mmol/L Carbon Dioxide Level 25 mmol/L Anion Gap 8.0 mmol/L Blood Urea Nitrogen 22 mg/dl Creatinine 1.19 mg/dl Est Creatinine Clear Calc Drug Dose 47.4 ml/min Estimated GFR () 56.7 Estimated GFR (Non- 48.9 BUN/Creatinine Ratio 18.3 Random Glucose 134 mg/dl Lactic Acid Level 2.4 mmol/L Calcium Level 9.1 mg/dl Magnesium Level 1.7 mg/dl Troponin I < 0.015 ng/ml Arterial Blood pH 7.42 Arterial Blood Partial Pressure CO2 41 mmHg Arterial Blood Partial Pressure O2 124 mm/Hg Arterial Blood HCO3 26 mmol/L Arterial Blood Oxygen Saturation 98.7 % Arterial Blood Base Excess 0.9 mEq/L Arterial Blood Gas Delivery 40% Nigel Test POS Bedside Glucose 180 mg/dl Influenza Type A (RT-PCR) Neg for Influ A Influenza Type B (RT-PCR) Neg for Influ B Test 03/06/17 18:05 03/06/17 21:08 03/07/17 00:26 03/07/17 00:27 Lactic Acid Level 5.0 mmol/L 3.6 mmol/L Bedside Glucose 211 mg/dl 201 mg/dl Phosphorus Level 2.6 mg/dl Magnesium Level 2.0 mg/dl Total Bilirubin 0.4 mg/dl Direct Bilirubin < 0.1 mg/dl Aspartate Amino Transf (AST/SGOT) 19 U/L Alanine Aminotransferase (ALT/SGPT) 24 U/L Alkaline Phosphatase 67 U/L Total Protein 6.7 gm/dl Albumin 3.1 gm/dl Procalcitonin < 0.05 ng/ml Test 03/07/17 04:55 03/07/17 06:33 White Blood Count 10.26 K/uL Red Blood Count 3.72 M/uL Hemoglobin 10.5 g/dL Hematocrit 32.9 % Mean Corpuscular Volume 88.4 fL Mean Corpuscular Hemoglobin 28.2 pg Mean Corpuscular Hemoglobin Concent 31.9 g/dl Platelet Count 183 K/uL Mean Platelet Volume 9.6 fL Neutrophils (%) (Auto) 93.7 % Lymphocytes (%) (Auto) 5.0 % Monocytes (%) (Auto) 1.1 % Eosinophils (%) (Auto) 0.0 % Basophils (%) (Auto) 0.0 % Neutrophils # (Auto) 9.62 K/uL Lymphocytes # (Auto) 0.51 K/uL Monocytes # (Auto) 0.11 K/uL Eosinophils # (Auto) 0.00 K/uL Basophils # (Auto) 0.00 K/uL RDW Standard Deviation 43.4 fL RDW Coefficient of Variation 13.5 % Immature Granulocyte % (Auto) 0.2 % Immature Granulocyte # (Auto) 0.02 K/uL Sodium Level 141 mmol/L Potassium Level 3.9 mmol/L Chloride Level 109 mmol/L Carbon Dioxide Level 23 mmol/L Anion Gap 9.0 mmol/L Blood Urea Nitrogen 16 mg/dl Creatinine 0.75 mg/dl Est Creatinine Clear Calc Drug Dose 75.2 ml/min Estimated GFR () 99.0 Estimated GFR (Non- 85.4 BUN/Creatinine Ratio 20.9 Random Glucose 192 mg/dl Estimated Average Glucose 128 mg/dl Hemoglobin A1c 6.1 % Calcium Level 7.8 mg/dl Bedside Glucose 176 mg/dl Resident Tracking Resident Involvement: Resident Care Provided Care Provided: Adult Hospital Medicine
--- NOTE | 2017-03-07 11:55 | Pharmacy Progress Note ---
Glycemic Control Progress Note Date of Service Mar 07, 2017. Scope Glycemic Pharmacist consulted for glycemic control to write orders per [facility] inpatient glycemic control protocol. Objective Accuchecks BSG (last 24hrs): Test 03/06/17 13:15 03/06/17 17:19 03/06/17 21:08 03/07/17 00:26 Random Glucose 134 mg/dl (70-99) Bedside Glucose 180 mg/dl (70-90) 211 mg/dl (70-90) 201 mg/dl (70-90) Test 03/07/17 04:55 03/07/17 06:33 Random Glucose 192 mg/dl (70-99) Bedside Glucose 176 mg/dl (70-90) HbA1c: Test 03/07/17 04:55 Hemoglobin A1c 6.1 % (4.5-5.6) H Recent Pertinent Medications The patient is currently receiving: * Basal insulin: Lantus 6 units every 12 hours * Correctional Insulin: Novolog Correction per scale ACHS Goal Range: Low 120 mg/dL - High 160 mg/dL Correction Factor: 25 mg/dL/unit * Prandial insulin: Per carb ratio of 1 unit per 15 grams CHO consumed Outpatient Anti-Diabetic Meds Basaglar (insulin glargine) 12 units BID Novolog 5 units TID w/ meals Metformin 500mg PO BID Assessment & Plan ASSESSMENT: 03/07/17 * BSGs have ranged 134-211 since admission * She remains in the ICU for acute on chronic respiratory failure however patient she has improved clinically over the last 24 hrs and feels like she is closer to her baseline today. * High dose IV steroids continue (Solu-Medrol 40mg IV Q 6 hours) along with broad-spectrum ABX therapy; cultures remain negative, CXR negative for acute infiltrate, procalcitonin negative * Diet to be advanced today. Suspect glycemic control will worsen without more aggressive insulin orders. Will increase both basal and prandial insulin doses as a result. Will base doses upon weight and moderate-severe stress level. PLAN FOR INPATIENT GLYCEMIC CONTROL: * Increasing Lantus to 18 units SQ BID * Changing correction factor to 18 mg/dl/unit * Changing carb ratio to 1 unit per 7 grams CHO consumed * Changing goal range to Low 120 mg/dL - High 160 mg/dL * Add BSG check at 0200 tonight and cover with the above Novolog doses * Reevaluate insulin doses with each step down in steroid dose * Please note that the plan above was derived based on current level of insulin resistance and hospital stress. These recommendations are appropriate for inpatient admission only. Plan of care upon discharge will need to be reassessed to avoid potential outpatient hypo/hyperglycemia. Thank you.
--- NOTE | 2017-03-07 12:13 | Progress Note ---
Medicine Progress Note Date & Time of Visit: Mar 07, 2017 at 12:13. Subjective seen resting in bed, comfortable off bipap, on NC 6 L states she feels somewhat improved compared to yesterday less dyspnea and cough no chest pain denies other symptoms Objective Last 8 Hrs Date Time Temp Pulse Resp B/P (MAP) Pulse Ox O2 Delivery O2 Flow Rate FiO2 03/07/17 12:00 Nasal Cannula 6.0 03/07/17 12:00 37.0 114 24 136/56 (82) 99 Nasal Cannula 6.0 03/07/17 11:26 106 18 96 Nasal Cannula 6.0 03/07/17 10:00 98 21 124/58 (80) 95 Nasal Cannula 6.0 03/07/17 08:00 Nasal Cannula 6.0 03/07/17 08:00 Nasal Cannula 03/07/17 08:00 36.9 105 24 131/91 (104) 98 Nasal Cannula 6.0 03/07/17 07:03 96 18 97 Mask 6.0 03/07/17 06:00 92 18 165/72 (103) 98 Oxymask 6.0 03/07/17 05:00 91 25 164/71 (102) 97 Oxymask 6.0 Physical Exam: General- oriented x 3, not in distress, speaks in sentences with no effort Head- atraumatic Eyes- EOMI, anicteric ENT- oropharynx clear Neck- supple, no JVD Lungs- distant breath sounds bilaterally, mild wheezes Heart- regular rhythm; no murmur, normal rate Abdomen- normal bowel sounds, soft, nontender Extremities- no pretibial edema, no calf tenderness Neuro- alert, oriented x 3; no gross focal deficits Skin- warm & dry Laboratory Results: Last 24 Hours Test 03/06/17 13:15 03/06/17 13:32 03/06/17 17:19 03/06/17 17:20 White Blood Count 14.91 K/uL Red Blood Count 4.34 M/uL Hemoglobin 12.4 g/dL Hematocrit 38.3 % Mean Corpuscular Volume 88.2 fL Mean Corpuscular Hemoglobin 28.6 pg Mean Corpuscular Hemoglobin Concent 32.4 g/dl Platelet Count 252 K/uL Mean Platelet Volume 9.5 fL Neutrophils (%) (Auto) 72.2 % Lymphocytes (%) (Auto) 18.5 % Monocytes (%) (Auto) 7.6 % Eosinophils (%) (Auto) 1.1 % Basophils (%) (Auto) 0.3 % Neutrophils # (Auto) 10.77 K/uL Lymphocytes # (Auto) 2.76 K/uL Monocytes # (Auto) 1.13 K/uL Eosinophils # (Auto) 0.16 K/uL Basophils # (Auto) 0.04 K/uL RDW Standard Deviation 43.5 fL RDW Coefficient of Variation 13.4 % Immature Granulocyte % (Auto) 0.3 % Immature Granulocyte # (Auto) 0.05 K/uL Prothrombin Time 10.1 SECONDS Prothromb Time International Ratio 0.9 Activated Partial Thromboplast Time 24.8 SECONDS Partial Thromboplastin Ratio 1.0 Sodium Level 137 mmol/L Potassium Level 4.2 mmol/L Chloride Level 104 mmol/L Carbon Dioxide Level 25 mmol/L Anion Gap 8.0 mmol/L Blood Urea Nitrogen 22 mg/dl Creatinine 1.19 mg/dl Est Creatinine Clear Calc Drug Dose 47.4 ml/min Estimated GFR () 56.7 Estimated GFR (Non- 48.9 BUN/Creatinine Ratio 18.3 Random Glucose 134 mg/dl Lactic Acid Level 2.4 mmol/L Calcium Level 9.1 mg/dl Magnesium Level 1.7 mg/dl Troponin I < 0.015 ng/ml Arterial Blood pH 7.42 Arterial Blood Partial Pressure CO2 41 mmHg Arterial Blood Partial Pressure O2 124 mm/Hg Arterial Blood HCO3 26 mmol/L Arterial Blood Oxygen Saturation 98.7 % Arterial Blood Base Excess 0.9 mEq/L Arterial Blood Gas Delivery 40% Nigel Test POS Bedside Glucose 180 mg/dl Influenza Type A (RT-PCR) Neg for Influ A Influenza Type B (RT-PCR) Neg for Influ B Test 03/06/17 18:05 03/06/17 21:08 03/07/17 00:26 03/07/17 00:27 Lactic Acid Level 5.0 mmol/L 3.6 mmol/L Bedside Glucose 211 mg/dl 201 mg/dl Phosphorus Level 2.6 mg/dl Magnesium Level 2.0 mg/dl Total Bilirubin 0.4 mg/dl Direct Bilirubin < 0.1 mg/dl Aspartate Amino Transf (AST/SGOT) 19 U/L Alanine Aminotransferase (ALT/SGPT) 24 U/L Alkaline Phosphatase 67 U/L Total Protein 6.7 gm/dl Albumin 3.1 gm/dl Procalcitonin < 0.05 ng/ml Test 03/07/17 04:55 03/07/17 06:33 03/07/17 10:06 03/07/17 10:44 White Blood Count 10.26 K/uL Red Blood Count 3.72 M/uL Hemoglobin 10.5 g/dL Hematocrit 32.9 % Mean Corpuscular Volume 88.4 fL Mean Corpuscular Hemoglobin 28.2 pg Mean Corpuscular Hemoglobin Concent 31.9 g/dl Platelet Count 183 K/uL Mean Platelet Volume 9.6 fL Neutrophils (%) (Auto) 93.7 % Lymphocytes (%) (Auto) 5.0 % Monocytes (%) (Auto) 1.1 % Eosinophils (%) (Auto) 0.0 % Basophils (%) (Auto) 0.0 % Neutrophils # (Auto) 9.62 K/uL Lymphocytes # (Auto) 0.51 K/uL Monocytes # (Auto) 0.11 K/uL Eosinophils # (Auto) 0.00 K/uL Basophils # (Auto) 0.00 K/uL RDW Standard Deviation 43.4 fL RDW Coefficient of Variation 13.5 % Immature Granulocyte % (Auto) 0.2 % Immature Granulocyte # (Auto) 0.02 K/uL Sodium Level 141 mmol/L Potassium Level 3.9 mmol/L Chloride Level 109 mmol/L Carbon Dioxide Level 23 mmol/L Anion Gap 9.0 mmol/L Blood Urea Nitrogen 16 mg/dl Creatinine 0.75 mg/dl Est Creatinine Clear Calc Drug Dose 75.2 ml/min Estimated GFR () 99.0 Estimated GFR (Non- 85.4 BUN/Creatinine Ratio 20.9 Random Glucose 192 mg/dl Estimated Average Glucose 128 mg/dl Hemoglobin A1c 6.1 % Calcium Level 7.8 mg/dl Bedside Glucose 176 mg/dl Lactic Acid Level 3.7 mmol/L Date/Time Source Procedure Growth Status 03/06/17 13:15 Blood Blood Culture Pending Received 03/06/17 13:05 Blood Blood Culture Pending Received 03/06/17 16:50 Nasal MRSA DNA Surveillance Screen - Final Specimen Negative for MRSA by DNA Probe Complete 03/06/17 19:52 Urine , Clean Catch Urine Culture Pending Received Assessment & Plan 61 year old female with history of Chronic Respiratory Failure on 4-6 L O2 via NC, COPD, Antitrypsin Deficiency, DM, PE, presenting with shortness of breath x 2 days. ACUTE ON CHRONIC HYPOXIC RESPIRATORY FAILURE LIKELY SECONDARY TO COPD EXACERBATION, ACUTE BRONCHITIS COPD, ANTITRYPSIN DEFICIENCY - cultures pending ff up Fungitell, Aspergillus Ag, sputum culture. - Cefepime + Levaquin Day 2 Nebs q4h Solumedrol 40mg q6h Dornase - improving - consulted Pulmonary (follows with Dr. Georges) - takes Prolastin weekly requested to bring medication tomorrow POSSIBLE SEVERE SEPSIS SECONDARY TO ABOVE - Lactic acid 2.4--> 3 IV NSS - LA elevation most likely from Beta agonist as per Pulmonary DM 2 - hold Metformin - ISS, Pharmacy Glycemic Mgt HISTORY OF PE - Lovenox for DVT prophylaxis CHRONIC PAIN - continue usual Morphine 30mg BID PRN IV morphine FULL CODE PER PATIENT DVT PROPHYLAXIS: LOVENOX DISPOSITION: anticipate d/c home when medically stable VTE Prophylaxis VTE Risk Assessment Done? Y/N: Yes Risk Level: Moderate Given or contraindicated: Enoxaparin (Lovenox)SQ Current Inpatient Medications: Current Inpatient Medications Medications (Trade) Dose Ordered Sig/Aram Route Start Time Stop Time Status Last Admin Dose Admin Levalbuterol (Xopenex 1.25MG/ 0.5ML Neb) 1.25 mg Q4R INH 03/06/17 16:00 04/05/17 15:59 03/07/17 11:25 1.25 MG Methylprednisolone Sodium Succinate 40 mg/Syringe 0.64 ml @ 1.5 mls/min Q6H IV 03/06/17 20:00 04/05/17 19:59 03/07/17 07:29 1.5 MLS/MIN Levofloxacin (Consult) 1 ea UD PRN N/A 03/06/17 15:25 04/05/17 15:24 Sodium Chloride 1,000 ml @ 100 mls/hr Q10H IV 03/06/17 17:00 04/05/17 16:59 03/07/17 10:34 100 MLS/HR Insulin Aspart (novoLOG ASPART) SLIDING SCALE If C... ACHS SC 03/06/17 16:00 04/05/17 15:59 03/07/17 11:57 9 UNITS Glucose (Glucose 40% Gel) 15-30 GRAMS 15 GRAMS... UD PRN PO 03/06/17 15:15 04/05/17 15:14 Glucose (Glucose Chew Tab) 4-8 Tablets 4 Tabl... UD PRN PO 03/06/17 15:15 04/05/17 15:14 Dextrose (Dextrose 50% 50ML Syringe) 25-50ML OF 50% DW IV FOR... UD PRN IV 03/06/17 15:15 04/05/17 15:14 Glucagon (Glucagon Inj) 1 mg UD PRN SQ 03/06/17 15:15 04/05/17 15:14 Miscellaneous Information (Consult Glycemic Management Pharmacy) 1 ea UD PRN N/A 03/06/17 15:27 04/05/17 15:26 Arformoterol Tartrate (Brovana 15MCG/ 2ML Neb Soln) 15 mcg BIDR INH 03/06/17 20:00 04/05/17 19:59 03/07/17 06:59 15 MCG Citalopram Hydrobromide (celeXA TAB) 40 mg DAILY PO 03/07/17 09:00 04/06/17 08:59 03/07/17 07:30 40 MG Pantoprazole Sodium (Protonix Tab) 40 mg DAILY PO 03/07/17 09:00 04/06/17 08:59 03/07/17 07:30 40 MG Potassium Chloride (Klor-Con Tab) 20 meq QAM PO 03/07/17 09:00 04/06/17 08:59 03/07/17 07:31 20 MEQ Ranitidine HCl (zANTac TAB) 300 mg BID PO 03/06/17 21:00 04/05/17 20:59 03/07/17 07:29 300 MG Roflumilast (Daliresp Tab) 500 mcg QAM PO 03/07/17 09:00 04/06/17 08:59 03/07/17 07:30 500 MCG Enoxaparin Sodium (Lovenox Inj) 40 mg QPM SQ 03/06/17 21:00 04/05/17 20:59 03/06/17 20:12 40 MG Acetaminophen (Tylenol Tab) 650 mg Q4H PRN PO 03/06/17 15:15 04/05/17 15:14 Cefepime HCl (Consult) 1 ea UD PRN N/A 03/06/17 16:00 04/05/17 15:59 Morphine Sulfate (Oramorph Sr Tab) 30 mg BID PO 03/06/17 21:00 03/20/17 20:59 Future hold 03/07/17 07:32 30 MG Cefepime HCl 2000 mg/Syringe 20 ml @ 5 mls/min Q12H IV 03/06/17 20:00 03/13/17 19:59 03/07/17 07:29 5 MLS/MIN Heparin Sodium (Porcine) (Heparin 100 Unit/ml 5ml Flush) 5 ml PRN PRN IV 03/07/17 01:00 04/06/17 00:59 Levofloxacin 750 mg/Prmx 150 ml @ 100 mls/hr Q24H IV 03/07/17 14:00 03/13/17 13:59 Insulin Glargine (Lantus Solostar Pen) 18 units BID SC 03/07/17 09:00 04/06/17 08:59 03/07/17 07:39 18 UNITS Docusate Sodium (coLACE CAP) 100 mg BID PO 03/07/17 21:00 04/06/17 20:59 Polyethylene (Miralax Powder Packet) 17 gm DAILY PRN PO 03/07/17 09:30 04/06/17 09:29 Dornase Venkat (Pulmozyme Inhalation Soln 2.5ml Amp) 2.5 ml BIDR INH 03/07/17 20:00 04/06/17 19:59 Ipratropium [place] (Atrovent 0.02% 0.5MG/2.5ML Neb) 0.5 mg Q4R INH 03/07/17 12:00 04/06/17 11:59 Insulin Aspart (novoLOG ASPART) SLIDING SCALE If C... TODAY@0200 ONCE SC 03/08/17 02:00 03/08/17 02:01
[2017-03-07] MEDS ORDERED: DOCUSATE SODIUM/SENNA 50/8.6MG TAB PO ONE (13:37)
[2017-03-07] MEDS: LEVOFLOXACIN 750MG / D5W IV SCH (13:48)
[2017-03-07] MEDS: MoRPHine SULFATE 4 MG/ML 1 ML CARP\\VIAL IV PRN ×3 (13:50→22:29)
[2017-03-07] MEDS: IPRATROPIUM BROMIDE NEB SOLN 0.02% 2.5 ML VIAL INH SCH ×2 (14:51→20:45)
[2017-03-07] MEDS: DOCUSATE SODIUM 100 MG CAP PO SCH (20:31)
[2017-03-07] MEDS: ENOXAPARIN 40 MG/0.4 ML SYR SQ SCH (20:32)
[2017-03-07] MEDS: DORNASE ALFA (2500U) 2.5MG/2.5ML INH SCH (21:00)
[2017-03-08] VITALS (15 sets, daily range): BP systolic 131–186; BP diastolic 51–91; PULSE 73–103; TEMP 36.5–36.9; O2SAT 94–99
[2017-03-08] MEDS: LEVALBUTEROL 1.25MG/0.5ML NEB INH SCH ×7 (00:40→23:03)
[2017-03-08] MEDS: IPRATROPIUM BROMIDE NEB SOLN 0.02% 2.5 ML VIAL INH SCH ×7 (00:40→23:03)
[2017-03-08] MEDS ORDERED: INSULIN ASPART 100 UNITS/ML 3 ML PEN SC ONE (02:00)
[2017-03-08] MEDS: METHYLPREDNISOLONE IV 40 MG in SYRINGE 0 ML IV SCH ×4 (02:05→20:36)
[2017-03-08] MEDS ORDERED: LORAZEPAM 0.5 MG TAB PO ONE (02:45)
[2017-03-08] MEDS ORDERED: LORAZEPAM 0.5 MG TAB ONE (03:10)
[2017-03-08 06:25] LABS: BASO % 0.1 %; BASO ABS # 0.01 K/uL (0-0.2); COMPLETE YES; HEMATOCRIT 31.4 % (37-47); IG% 0.5 %; LYMPH % 3.5 %; LYMPH ABS # 0.66 K/uL (1.2-3.4); MEAN CORPUSCULAR HGB CONC 31.5 g/dl (32-36); MEAN PLATELET VOLUME 9.2 fL (7.4-10.4); MONO % 3.2 %; NEUT % 92.7 %; PLATELET COUNT 178 K/uL (130-400); RED BLOOD COUNT 3.53 M/uL (4.2-5.4); WHITE BLOOD COUNT 18.66 K/uL (4.8-10.8)
[2017-03-08 07:02] LABS: BUN/CREATININE RATIO 17.8 (10-20); CALCIUM 8.4 mg/dl (8.5-10.1); CREATININE 1.02 mg/dl (0.60-1.20); POTASSIUM 3.7 mmol/L (3.5-5.1)
[2017-03-08 07:07] LABS: FERRITIN 34.7 ng/ml (8.0-388.0)
[2017-03-08] MEDS: ARFORMOTEROL TART 15MCG/2ML VIAL INH SCH ×2 (07:44→19:53)
[2017-03-08] MEDS: DORNASE ALFA (2500U) 2.5MG/2.5ML INH SCH ×2 (07:44→19:53)
[2017-03-08] MEDS: PANTOprazole SOD 40 MG TAB PO SCH (07:54)
[2017-03-08] MEDS: MoRPHine SULFATE CR 15 MG TAB (MS CONTIN) PO SCH ×2 (07:54→20:36)
[2017-03-08] MEDS: POLYETHYLENE (MIRALAX) 17 GM PACK PO PRN (07:54)
[2017-03-08] MEDS: DOCUSATE SODIUM 100 MG CAP PO SCH ×2 (07:54→20:36)
[2017-03-08] MEDS: DOCUSATE SODIUM/SENNA 50/8.6MG TAB PO SCH (07:55)
[2017-03-08] MEDS: CITALOPRAM 40 MG TAB PO SCH (07:55)
[2017-03-08] MEDS: RANITIDINE HCL 150 MG TAB PO SCH ×2 (07:55→20:37)
[2017-03-08] MEDS: ROFLUMILAST 500 MCG TAB PO SCH (07:56)
[2017-03-08] MEDS: POTASSIUM CHLORIDE 20 MEQ TABCR PO SCH (07:56)
[2017-03-08] MEDS: CEFEPIME IV 2,000 MG in SYRINGE 7.5 ML IV SCH ×2 (07:57→20:36)
[2017-03-08] MEDS: SODIUM CHLORIDE 0.9% 1000ML 1,000 ML IV SCH (08:00)
[2017-03-08] MEDS: INSULIN ASPART 100 UNITS/ML 3 ML PEN SC SCH ×4 (08:04→20:37)
[2017-03-08] MEDS: INSULIN GLARGINE SOLOSTAR 100 UNITS/ML 3 ML PEN SC SCH ×2 (08:05→20:40)
--- NOTE | 2017-03-08 10:36 | Pharmacy Progress Note ---
Glycemic Control Progress Note Date of Service Mar 08, 2017. Scope Glycemic Pharmacist consulted for glycemic control to write orders per [facility] inpatient glycemic control protocol. Objective Accuchecks BSG (last 24hrs): Test 03/07/17 11:18 03/07/17 16:00 03/07/17 20:22 03/08/17 01:55 Bedside Glucose 218 mg/dl (70-90) 146 mg/dl (70-90) 122 mg/dl (70-90) 193 mg/dl (70-90) Test 03/08/17 06:15 03/08/17 06:36 Random Glucose 149 mg/dl (70-99) Bedside Glucose 159 mg/dl (70-90) HbA1c: Test 03/07/17 04:55 Hemoglobin A1c 6.1 % (4.5-5.6) H Recent Pertinent Medications The patient is currently receiving: * Basal insulin: Lantus 18 units every 12 hours * Correctional Insulin: Novolog Correction per scale ACHS + at 0200 Goal Range: Low 120 mg/dL - High 160 mg/dL Correction Factor: 18 mg/dL/unit * Prandial insulin: Per carb ratio of 1 unit per 7 grams CHO consumed Outpatient Anti-Diabetic Meds Basaglar (insulin glargine) 12 units BID Novolog 5 units TID w/ meals Metformin 500mg PO BID Assessment & Plan ASSESSMENT: 03/07/17 * BSGs have ranged 134-211 since admission * She remains in the ICU for acute on chronic respiratory failure however patient she has improved clinically over the last 24 hrs and feels like she is closer to her baseline today. * High dose IV steroids continue (Solu-Medrol 40mg IV Q 6 hours) along with broad-spectrum ABX therapy; cultures remain negative, CXR negative for acute infiltrate, procalcitonin negative * Diet to be advanced today. Suspect glycemic control will worsen without more aggressive insulin orders. Will increase both basal and prandial insulin doses as a result. Will base doses upon weight and moderate-severe stress level. 03/08/17 * BSGs have ranged 122-193 over the last 24 hrs since insulin changes made yesterday, only 1 BSG above 180 * Solu-Medrol dose continues at 40mg IV Q 6 hrs * Fasting BSG 159 this AM w/ 36 units of Lantus on board and after 2 units of Novolog correction overnight. Will continue the same for next 24 hrs as we have not yet achieved steady-state w/ current Lantus dose * Post-prandial BSGs at goal with current CR - continue the same PLAN FOR INPATIENT GLYCEMIC CONTROL: * Continue Lantus 18 units SQ BID * Continue correction factor 18 mg/dl/unit * Continue carb ratio 1 unit per 7 grams CHO consumed * Continue goal range Low 120 mg/dL - High 160 mg/dL * Continue BSG check at 0200 tonight and cover with the above Novolog doses * Reevaluate insulin doses with each step down in steroid dose * Please note that the plan above was derived based on current level of insulin resistance and hospital stress. These recommendations are appropriate for inpatient admission only. Plan of care upon discharge will need to be reassessed to avoid potential outpatient hypo/hyperglycemia. Thank you.
[2017-03-08] MEDS ORDERED: LEVOFLOXACIN 750MG / D5W IV SCH (14:00)
[2017-03-08] MEDS: MoRPHine SULFATE 4 MG/ML 1 ML CARP\\VIAL IV PRN ×3 (14:16→23:47)
[2017-03-08] MEDS ORDERED: [UNRECOGNIZED DRUG - MIXTURE] IV ONE (15:00)
[2017-03-08] MEDS: LEVOFLOXACIN 750MG / D5W IV SCH (15:21)
[2017-03-08] MEDS: SODIUM CHLORIDE 0.45% 1000ML 1,000 ML IV SCH (15:21)
--- NOTE | 2017-03-08 15:56 | Pulmonology Progress Note ---
Pulmonary Progress Note Date of Service Mar 08, 2017. Attending Dr. Mccartney Subjective Patient seen and examined at bedside. She said she had a rough night and did not sleep well. She was given Ativan around 3 AM this morning which provided some relief. She still remains quite dyspneic with the use of accessory muscles. She denies any cough or productive sputum. Currently on nasal cannula but is feeling tired for respiratory standpoint. Objective Vital signs reviewed. MAXIMUM TEMPERATURE 36.8, blood pressure 131/57 to 158/79 , pulse 72-103, respiratory rate 16-26, pulse oximetry 94-99% on 6 L nasal cannula. Gen.: Awake alert oriented 3, appears calm but quite dyspneic when speaking. She speaks in about 3-4 word sentences at a time. Tearful at times. CVS: S1-S2, regular rate and rhythm Lungs: Diminished breath sounds bilaterally, easily accessory muscles of respiration when speaking. Currently on 6 L nasal cannula. Abdomen: Soft, nondistended, nontender, bowel sounds positive Extremities: No edema, no cyanosis, no clubbing. Labs reviewed. White blood cell count 10-18 today, eosinophils within normal limits. Hemoglobin 9.9, platelet count 178. Chemistry significant for chloride of 112, calcium 8.4. Mycoplasma pneumonia IgM pending, beta-1 3-D glucan pending, Aspergillus antibodies pending. No new imaging today. Medications reviewed. Assessment & Plan Acute on chronic hypoxic respiratory failure. Severe COPD exacerbation Alpha-1 antitrypsin deficiency. Patient feeling tired from a respiratory standpoint. I think that we should try a trial of intermittent BiPAP when necessary to assist with the work of breathing and dyspnea. Otherwise patient should be on nasal cannula to maintain an SaO2 between 88-92%. I think that we should proceed with CT chest to rule out PE as she does appear to be more dyspneic than yesterday. I will continue with broad-spectrum antibiotics. Follow-up Fungitell, aspergillus Ag, mycoplasma Ig M and urine legionella. Continue with 5 day course of azithromycin for its anti-inflammatory properties Continue with IV corticosteroids. Can switch Solu-Medrol 40 mg every 12 hours today. Continue with nebulizers every 4-6 hours and when necessary. 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 Continue with morphine sulfate 50 mg by mouth every 4 when necessary for dyspnea. Continue with guaifenesin 600 mg by mouth every 12 hours Continue with Roflulimast. Continue with aggressive pulmonary toilet with flutter valve and Dornase alpha. Continue with DVT and GI prophylaxis We discussed goals of care at length. Patient states that she would still like to be full code with a trial of cardiac resuscitation for about 10 minutes only. She does not want to be intubated as her lung condition is chronic, progressive and irreversible. She does not want to be dependent on mechanical ventilation for sustenance of life. Data Medications: Current Inpatient Medications Medications (Trade) Dose Ordered Sig/Aram Route Start Time Stop Time Status Last Admin Dose Admin Levalbuterol (Xopenex 1.25MG/ 0.5ML Neb) 1.25 mg Q4R INH 03/06/17 16:00 04/05/17 15:59 03/08/17 15:06 1.25 MG Methylprednisolone Sodium Succinate 40 mg/Syringe 0.64 ml @ 1.5 mls/min Q6H IV 03/06/17 20:00 04/05/17 19:59 03/08/17 15:22 1.5 MLS/MIN Levofloxacin (Consult) 1 ea UD PRN N/A 03/06/17 15:25 04/05/17 15:24 Insulin Aspart (novoLOG ASPART) SLIDING SCALE If C... ACHS SC 03/06/17 16:00 04/05/17 15:59 03/08/17 12:19 7 UNITS Glucose (Glucose 40% Gel) 15-30 GRAMS 15 GRAMS... UD PRN PO 03/06/17 15:15 04/05/17 15:14 Glucose (Glucose Chew Tab) 4-8 Tablets 4 Tabl... UD PRN PO 03/06/17 15:15 04/05/17 15:14 Dextrose (Dextrose 50% 50ML Syringe) 25-50ML OF 50% DW IV FOR... UD PRN IV 03/06/17 15:15 04/05/17 15:14 Glucagon (Glucagon Inj) 1 mg UD PRN SQ 03/06/17 15:15 04/05/17 15:14 Miscellaneous Information (Consult Glycemic Management Pharmacy) 1 ea UD PRN N/A 03/06/17 15:27 04/05/17 15:26 Arformoterol Tartrate (Brovana 15MCG/ 2ML Neb Soln) 15 mcg BIDR INH 03/06/17 20:00 04/05/17 19:59 03/08/17 07:44 15 MCG Citalopram Hydrobromide (celeXA TAB) 40 mg DAILY PO 03/07/17 09:00 04/06/17 08:59 03/08/17 07:55 40 MG Pantoprazole Sodium (Protonix Tab) 40 mg DAILY PO 03/07/17 09:00 04/06/17 08:59 03/08/17 07:54 40 MG Potassium Chloride (Klor-Con Tab) 20 meq QAM PO 03/07/17 09:00 04/06/17 08:59 03/08/17 07:56 20 MEQ Ranitidine HCl (zANTac TAB) 300 mg BID PO 03/06/17 21:00 04/05/17 20:59 03/08/17 07:55 300 MG Roflumilast (Daliresp Tab) 500 mcg QAM PO 03/07/17 09:00 04/06/17 08:59 03/08/17 07:56 500 MCG Enoxaparin Sodium (Lovenox Inj) 40 mg QPM SQ 03/06/17 21:00 04/05/17 20:59 03/07/17 20:32 40 MG Acetaminophen (Tylenol Tab) 650 mg Q4H PRN PO 03/06/17 15:15 04/05/17 15:14 Cefepime HCl (Consult) 1 ea UD PRN N/A 03/06/17 16:00 04/05/17 15:59 Morphine Sulfate (Oramorph Sr Tab) 30 mg BID PO 03/06/17 21:00 03/20/17 20:59 Future hold 03/08/17 07:54 30 MG Cefepime HCl 2000 mg/Syringe 20 ml @ 5 mls/min Q12H IV 03/06/17 20:00 03/13/17 19:59 03/08/17 07:57 5 MLS/MIN Heparin Sodium (Porcine) (Heparin 100 Unit/ml 5ml Flush) 5 ml PRN PRN IV 03/07/17 01:00 04/06/17 00:59 Levofloxacin 750 mg/Prmx 150 ml @ 100 mls/hr Q24H IV 03/07/17 14:00 03/13/17 13:59 03/08/17 15:21 100 MLS/HR Insulin Glargine (Lantus Solostar Pen) 18 units BID SC 03/07/17 09:00 04/06/17 08:59 03/08/17 08:05 18 UNITS Docusate Sodium (coLACE CAP) 100 mg BID PO 03/07/17 21:00 04/06/17 20:59 03/08/17 07:54 100 MG Polyethylene (Miralax Powder Packet) 17 gm DAILY PRN PO 03/07/17 09:30 04/06/17 09:29 03/08/17 07:54 17 GM Dornase Venkat (Pulmozyme Inhalation Soln 2.5ml Amp) 2.5 ml BIDR INH 03/07/17 20:00 04/06/17 19:59 03/08/17 07:44 2.5 ML Ipratropium [place] (Atrovent 0.02% 0.5MG/2.5ML Neb) 0.5 mg Q4R INH 03/07/17 12:00 04/06/17 11:59 03/08/17 15:05 0.5 MG Morphine Sulfate (MoRPHine SULFATE INJ) 3 mg Q4H PRN IV 03/07/17 13:45 03/21/17 13:44 03/08/17 14:16 3 MG Senna/Docusate Sodium (Senokot S Tab) 1 tab QAM PO 03/08/17 09:00 04/07/17 08:59 03/08/17 07:55 1 TAB Insulin Aspart (novoLOG ASPART) SLIDING SCALE If C... TODAY@0200 ONCE SC 03/09/17 02:00 03/09/17 02:01 Miscellaneous Information (Order Awaiting Action) 1 ea QS N/A 03/08/17 16:00 04/07/17 15:59 03/08/17 15:22 1 EA Sodium Chloride 1,000 ml @ 80 mls/hr [id number] IV 03/08/17 14:00 04/07/17 13:59 03/08/17 15:21 80 MLS/HR Vital Signs: Date Time Temp Pulse Resp B/P (MAP) Pulse Ox O2 Delivery O2 Flow Rate FiO2 03/08/17 15:08 74 20 97 BiPAP/CPAP 40 03/08/17 15:07 84 97 40 03/08/17 12:00 Nasal Cannula 6.0 03/08/17 12:00 36.8 91 17 137/51 (79) 95 Nasal Cannula 6.0 03/08/17 10:36 73 18 95 Nasal Cannula 6.0 03/08/17 08:00 36.8 100 16 131/57 (81) 94 Nasal Cannula 6.0 03/08/17 08:00 Nasal Cannula 6.0 03/08/17 07:44 99 18 95 Nasal Cannula 6.0 03/08/17 04:10 96 Nasal Cannula 6.0 03/08/17 03:40 36.6 98 22 150/66 (94) 96 Nasal Cannula 6.0 03/08/17 00:44 91 20 96 Nasal Cannula 6.0 03/08/17 00:00 36.7 103 26 158/79 (105) 99 Nasal Cannula 6.0 03/08/17 00:00 99 Nasal Cannula 6.0 03/07/17 21:00 100 18 97 Nasal Cannula 6.0 03/07/17 20:15 97 Nasal Cannula 6.0 03/07/17 20:05 104 18 98 Nasal Cannula 6.0 03/07/17 19:45 36.9 86 20 127/64 (85) 95 Nasal Cannula 5.0 03/07/17 16:00 Nasal Cannula 6.0 03/07/17 16:00 36.7 108 26 148/54 (85) 98 Nasal Cannula 6.0 Laboratory Results: Last 24 Hours Test 03/07/17 16:00 03/07/17 16:30 03/07/17 20:22 03/08/17 01:55 Bedside Glucose 146 mg/dl 122 mg/dl 193 mg/dl Test 03/08/17 06:15 03/08/17 06:36 White Blood Count 18.66 K/uL Red Blood Count 3.53 M/uL Hemoglobin 9.9 g/dL Hematocrit 31.4 % Mean Corpuscular Volume 89.0 fL Mean Corpuscular Hemoglobin 28.0 pg Mean Corpuscular Hemoglobin Concent 31.5 g/dl Platelet Count 178 K/uL Mean Platelet Volume 9.2 fL Neutrophils (%) (Auto) 92.7 % Lymphocytes (%) (Auto) 3.5 % Monocytes (%) (Auto) 3.2 % Eosinophils (%) (Auto) 0.0 % Basophils (%) (Auto) 0.1 % Neutrophils # (Auto) 17.31 K/uL Lymphocytes # (Auto) 0.66 K/uL Monocytes # (Auto) 0.59 K/uL Eosinophils # (Auto) 0.00 K/uL Basophils # (Auto) 0.01 K/uL RDW Standard Deviation 46.0 fL RDW Coefficient of Variation 14.0 % Immature Granulocyte % (Auto) 0.5 % Immature Granulocyte # (Auto) 0.09 K/uL Sodium Level 142 mmol/L Potassium Level 3.7 mmol/L Chloride Level 112 mmol/L Carbon Dioxide Level 21 mmol/L Anion Gap 9.0 mmol/L Blood Urea Nitrogen 18 mg/dl Creatinine 1.02 mg/dl Est Creatinine Clear Calc Drug Dose 57.6 ml/min Estimated GFR () 68.3 Estimated GFR (Non- 58.9 BUN/Creatinine Ratio 17.8 Random Glucose 149 mg/dl Calcium Level 8.4 mg/dl Iron Level 38 mcg/dl Total Iron Binding Capacity 245 mcg/dl Transferrin 212 mg/dl Transferrin % Saturation 13 % Ferritin 34.7 ng/ml Vitamin B12 Level 679 pg/mL Folate 18.66 ng/mL Bedside Glucose 159 mg/dl
[2017-03-08] MEDS ORDERED: OPTIRAY 320 IV PRN (17:15)
--- NOTE | 2017-03-08 17:18 | Progress Note ---
Medicine Progress Note Date & Time of Visit: Mar 08, 2017 at 17:03. Subjective Patient states she feels slightly better at rest; she gets worse with ambulating or going to the bathroom. Also states she did not sleep well last night. No other overnight events noted. Tolerating PO but appetite has been poor. Gets slightly lightheaded when she stands up but states it resolves quickly. No other complaints. Objective Last 8 Hrs Date Time Temp Pulse Resp B/P (MAP) Pulse Ox O2 Delivery O2 Flow Rate FiO2 03/08/17 16:00 Nasal Cannula 6.0 03/08/17 16:00 36.5 86 16 173/81 (111) 98 Nasal Cannula 6.0 03/08/17 15:08 74 20 97 BiPAP/CPAP 40 03/08/17 15:07 84 97 40 03/08/17 12:00 Nasal Cannula 6.0 03/08/17 12:00 36.8 91 17 137/51 (79) 95 Nasal Cannula 6.0 03/08/17 10:36 73 18 95 Nasal Cannula 6.0 Physical Exam: GENERAL: Patient is in no acute distress. HEENT: No acute trauma, normocephalic, mucous membranes moist, no nasal congestion, no scleral icterus. Conjunctivae clear. NECK: No stridor, trachea is midline. LUNGS: Bilateral expiratory wheeze, diminished breath sounds bilaterally, no rhonchi HEART: Without murmurs gallops or rubs, regular rate and rhythm. ABDOMEN: Soft, nontender, bowel sounds positive, no hepatosplenomegaly EXTREMITIES: No cyanosis or edema, full range of motion of all the joints without pain or difficulty, no signs for acute trauma. NEUROLOGIC: Oriented x 3, no acute motor or sensory deficits, no focal weakness. SKIN: No rash, no jaundice, no diaphoresis. Laboratory Results: Last 24 Hours Test 03/07/17 20:22 03/08/17 01:55 03/08/17 06:15 03/08/17 06:36 Bedside Glucose 122 mg/dl 193 mg/dl 159 mg/dl White Blood Count 18.66 K/uL Red Blood Count 3.53 M/uL Hemoglobin 9.9 g/dL Hematocrit 31.4 % Mean Corpuscular Volume 89.0 fL Mean Corpuscular Hemoglobin 28.0 pg Mean Corpuscular Hemoglobin Concent 31.5 g/dl Platelet Count 178 K/uL Mean Platelet Volume 9.2 fL Neutrophils (%) (Auto) 92.7 % Lymphocytes (%) (Auto) 3.5 % Monocytes (%) (Auto) 3.2 % Eosinophils (%) (Auto) 0.0 % Basophils (%) (Auto) 0.1 % Neutrophils # (Auto) 17.31 K/uL Lymphocytes # (Auto) 0.66 K/uL Monocytes # (Auto) 0.59 K/uL Eosinophils # (Auto) 0.00 K/uL Basophils # (Auto) 0.01 K/uL RDW Standard Deviation 46.0 fL RDW Coefficient of Variation 14.0 % Immature Granulocyte % (Auto) 0.5 % Immature Granulocyte # (Auto) 0.09 K/uL Sodium Level 142 mmol/L Potassium Level 3.7 mmol/L Chloride Level 112 mmol/L Carbon Dioxide Level 21 mmol/L Anion Gap 9.0 mmol/L Blood Urea Nitrogen 18 mg/dl Creatinine 1.02 mg/dl Est Creatinine Clear Calc Drug Dose 57.6 ml/min Estimated GFR () 68.3 Estimated GFR (Non- 58.9 BUN/Creatinine Ratio 17.8 Random Glucose 149 mg/dl Calcium Level 8.4 mg/dl Iron Level 38 mcg/dl Total Iron Binding Capacity 245 mcg/dl Transferrin 212 mg/dl Transferrin % Saturation 13 % Ferritin 34.7 ng/ml Vitamin B12 Level 679 pg/mL Folate 18.66 ng/mL Test 03/08/17 12:13 Bedside Glucose 192 mg/dl Assessment & Plan ACUTE ON CHRONIC HYPOXIC RESPIRATORY FAILURE: -likely has COPD exacerbation, and acute bronchitis in additions to known alpha- 1 antitrypsin deficiency -blood, sputum and urine cultures negative -Fungitell, Aspergillus Ag, mycoplasma are still pending -on Cefepime + Levaquin Day #3 -continued on nebs q4h -on Solu medrol 40mg q6h, will taper -Pulmonary consulted and following, appreciate recommendations, will check CT to rule out PE, bipap intermittently during the day to provide patient some relief -continued on Dornase -on 6L nasal cannula ANTITRYPSIN DEFICIENCY: -resume Prolastin weekly; brought medication from home ELEVATED LACTATE: unlikely severe sepsis, more likely related to respiratory exertion -Lactic acid 2.4--> 3 -continued on IV fluids -LA elevation most likely from Beta agonist as per Pulmonary DM TYPE II: -hold Metformin -Pharmacy Glycemic Management consulted HISTORY OF PE: -on Lovenox for DVT prophylaxis -will obtain CT for PE rule out CHRONIC PAIN: -continue Morphine 30mg BID and PRN IV morphine Current Inpatient Medications: Current Inpatient Medications Medications (Trade) Dose Ordered Sig/Aram Route Start Time Stop Time Status Last Admin Dose Admin Levalbuterol (Xopenex 1.25MG/ 0.5ML Neb) 1.25 mg Q4R INH 03/06/17 16:00 04/05/17 15:59 03/08/17 15:06 1.25 MG Methylprednisolone Sodium Succinate 40 mg/Syringe 0.64 ml @ 1.5 mls/min Q6H IV 03/06/17 20:00 04/05/17 19:59 03/08/17 15:22 1.5 MLS/MIN Levofloxacin (Consult) 1 ea UD PRN N/A 03/06/17 15:25 04/05/17 15:24 Insulin Aspart (novoLOG ASPART) SLIDING SCALE If C... ACHS SC 03/06/17 16:00 04/05/17 15:59 03/08/17 12:19 7 UNITS Glucose (Glucose 40% Gel) 15-30 GRAMS 15 GRAMS... UD PRN PO 03/06/17 15:15 04/05/17 15:14 Glucose (Glucose Chew Tab) 4-8 Tablets 4 Tabl... UD PRN PO 03/06/17 15:15 04/05/17 15:14 Dextrose (Dextrose 50% 50ML Syringe) 25-50ML OF 50% DW IV FOR... UD PRN IV 03/06/17 15:15 04/05/17 15:14 Glucagon (Glucagon Inj) 1 mg UD PRN SQ 03/06/17 15:15 04/05/17 15:14 Miscellaneous Information (Consult Glycemic Management Pharmacy) 1 ea UD PRN N/A 03/06/17 15:27 04/05/17 15:26 Arformoterol Tartrate (Brovana 15MCG/ 2ML Neb Soln) 15 mcg BIDR INH 03/06/17 20:00 04/05/17 19:59 03/08/17 07:44 15 MCG Citalopram Hydrobromide (celeXA TAB) 40 mg DAILY PO 03/07/17 09:00 04/06/17 08:59 03/08/17 07:55 40 MG Pantoprazole Sodium (Protonix Tab) 40 mg DAILY PO 03/07/17 09:00 04/06/17 08:59 03/08/17 07:54 40 MG Potassium Chloride (Klor-Con Tab) 20 meq QAM PO 03/07/17 09:00 04/06/17 08:59 03/08/17 07:56 20 MEQ Ranitidine HCl (zANTac TAB) 300 mg BID PO 03/06/17 21:00 04/05/17 20:59 03/08/17 07:55 300 MG Roflumilast (Daliresp Tab) 500 mcg QAM PO 03/07/17 09:00 04/06/17 08:59 03/08/17 07:56 500 MCG Enoxaparin Sodium (Lovenox Inj) 40 mg QPM SQ 03/06/17 21:00 04/05/17 20:59 03/07/17 20:32 40 MG Acetaminophen (Tylenol Tab) 650 mg Q4H PRN PO 03/06/17 15:15 04/05/17 15:14 Cefepime HCl (Consult) 1 ea UD PRN N/A 03/06/17 16:00 04/05/17 15:59 Morphine Sulfate (Oramorph Sr Tab) 30 mg BID PO 03/06/17 21:00 03/20/17 20:59 Future hold 03/08/17 07:54 30 MG Cefepime HCl 2000 mg/Syringe 20 ml @ 5 mls/min Q12H IV 03/06/17 20:00 03/13/17 19:59 03/08/17 07:57 5 MLS/MIN Heparin Sodium (Porcine) (Heparin 100 Unit/ml 5ml Flush) 5 ml PRN PRN IV 03/07/17 01:00 04/06/17 00:59 Levofloxacin 750 mg/Prmx 150 ml @ 100 mls/hr Q24H IV 03/07/17 14:00 03/13/17 13:59 03/08/17 15:21 100 MLS/HR Insulin Glargine (Lantus Solostar Pen) 18 units BID SC 03/07/17 09:00 12/6/17 08:59 03/08/17 08:05 18 UNITS Docusate Sodium (coLACE CAP) 100 mg BID PO 03/07/17 21:00 04/06/17 20:59 03/08/17 07:54 100 MG Polyethylene (Miralax Powder Packet) 17 gm DAILY PRN PO 03/07/17 09:30 04/06/17 09:29 03/08/17 07:54 17 GM Dornase Venkat (Pulmozyme Inhalation Soln 2.5ml Amp) 2.5 ml BIDR INH 03/07/17 20:00 04/06/17 19:59 03/08/17 07:44 2.5 ML Ipratropium [place] (Atrovent 0.02% 0.5MG/2.5ML Neb) 0.5 mg Q4R INH 03/07/17 12:00 04/06/17 11:59 03/08/17 15:05 0.5 MG Morphine Sulfate (MoRPHine SULFATE INJ) 3 mg Q4H PRN IV 03/07/17 13:45 03/21/17 13:44 03/08/17 14:16 3 MG Senna/Docusate Sodium (Senokot S Tab) 1 tab QAM PO 03/08/17 09:00 04/07/17 08:59 03/08/17 07:55 1 TAB Insulin Aspart (novoLOG ASPART) SLIDING SCALE If C... TODAY@0200 ONCE SC 03/09/17 02:00 03/09/17 02:01 Miscellaneous Information (Order Awaiting Action) 1 ea QS N/A 03/08/17 16:00 04/07/17 15:59 03/08/17 15:22 1 EA Sodium Chloride 1,000 ml @ 80 mls/hr [id number] IV 03/08/17 14:00 04/07/17 13:59 03/08/17 15:21 80 MLS/HR
--- NOTE | 2017-03-08 18:45 | DIAGNOSTIC IMAGING REPORT ---
CHEST CTA for PULMONARY ARTERIES CT DOSE: 506.55 mGy.cm HISTORY: Respiratory failure. Dyspnea. TECHNIQUE: Multiaxial CT images of the chest were performed following the intravenous administration of contrast to evaluate the pulmonary arteries. Maximal intensity projection images were also obtained. A dose lowering technique was utilized adhering to the principles of ALARA. COMPARISON STUDY: Chest CTA 03/15/2016. FINDINGS: There is a normal caliber thoracic aorta with no evidence for dissection. There is no evidence for pulmonary embolus. Trace bilateral pleural effusions. No pneumothorax. The liver and spleen are unremarkable. No mediastinal or hilar lymphadenopathy. The central airways are patent. Bibasilar densities favor subsegmental atelectasis. Mild emphysema. No focal lung consolidations to suggest pneumonia. Mild interstitial thickening most pronounced at the lung apices. IMPRESSION: 1. No evidence for pulmonary embolus. 2. Mild emphysema. 3. Trace bilateral pleural effusions. 4. Mild interstitial thickening. This could be chronic or due to mild congestive change. Electronically signed by: Emory Umana M.D. 03/08/2017 6:44 PM Dictated Date/Time: 03/08/2017 6:28 PM
[2017-03-08] MEDS: ENOXAPARIN 40 MG/0.4 ML SYR SQ SCH (20:38)
[2017-03-09] VITALS (15 sets, daily range): BP systolic 130–178; BP diastolic 69–80; PULSE 69–99; TEMP 36.5–36.7; O2SAT 90–98
[2017-03-09] MEDS ORDERED: INSULIN ASPART 100 UNITS/ML 3 ML PEN SC ONE (02:00)
[2017-03-09] MEDS: SODIUM CHLORIDE 0.45% 1000ML 1,000 ML IV SCH (02:04)
[2017-03-09] MEDS: METHYLPREDNISOLONE IV 40 MG in SYRINGE 0 ML IV SCH ×4 (02:55→20:58)
[2017-03-09] MEDS: IPRATROPIUM BROMIDE NEB SOLN 0.02% 2.5 ML VIAL INH SCH ×6 (03:12→23:02)
[2017-03-09] MEDS: LEVALBUTEROL 1.25MG/0.5ML NEB INH SCH ×6 (03:13→23:02)
[2017-03-09] MEDS ORDERED: NURSING VERBAL MED ORDER ONE ×2 (04:30→21:15)
[2017-03-09] MEDS ORDERED: LORAZEPAM 0.5 MG TAB PO ONE (05:00)
[2017-03-09 06:07] LABS: COMPLETE YES; HEMATOCRIT 31.9 % (37-47); LYMPH % 4.5 %; MEAN CELL VOLUME 89.1 fL (80-100); MEAN CORPUSCULAR HEMOGLOBIN 28.5 pg (25-34); MEAN PLATELET VOLUME 9.6 fL (7.4-10.4); MONO % 2.9 %; NEUT % 91.6 %; PLATELET COUNT 195 K/uL (130-400); RED BLOOD COUNT 3.58 M/uL (4.2-5.4); WHITE BLOOD COUNT 17.89 K/uL (4.8-10.8)
[2017-03-09 06:53] LABS: BUN/CREATININE RATIO 23.3 (10-20); CALCIUM 8.3 mg/dl (8.5-10.1); CREATININE 0.82 mg/dl (0.60-1.20); POTASSIUM 4.2 mmol/L (3.5-5.1)
[2017-03-09] MEDS: DORNASE ALFA (2500U) 2.5MG/2.5ML INH SCH ×2 (07:07→20:00)
[2017-03-09] MEDS: CITALOPRAM 40 MG TAB PO SCH (08:04)
[2017-03-09] MEDS: PANTOprazole SOD 40 MG TAB PO SCH (08:04)
[2017-03-09] MEDS: DOCUSATE SODIUM 100 MG CAP PO SCH ×2 (08:04→20:59)
[2017-03-09] MEDS: POTASSIUM CHLORIDE 20 MEQ TABCR PO SCH (08:04)
[2017-03-09] MEDS: RANITIDINE HCL 150 MG TAB PO SCH ×2 (08:05→20:59)
[2017-03-09] MEDS: DOCUSATE SODIUM/SENNA 50/8.6MG TAB PO SCH (08:05)
[2017-03-09] MEDS: ROFLUMILAST 500 MCG TAB PO SCH (08:05)
[2017-03-09] MEDS: CEFEPIME IV 2,000 MG in SYRINGE 7.5 ML IV SCH ×2 (08:09→21:23)
[2017-03-09] MEDS: MoRPHine SULFATE CR 15 MG TAB (MS CONTIN) PO SCH ×2 (08:09→20:56)
[2017-03-09] MEDS: INSULIN ASPART 100 UNITS/ML 3 ML PEN SC SCH ×4 (08:14→20:58)
[2017-03-09] MEDS: INSULIN GLARGINE SOLOSTAR 100 UNITS/ML 3 ML PEN SC SCH ×2 (08:14→21:00)
[2017-03-09] MEDS: ARFORMOTEROL TART 15MCG/2ML VIAL INH SCH ×2 (08:30→20:00)
[2017-03-09] MEDS: LEVOFLOXACIN 750MG / D5W IV SCH (13:45)
[2017-03-09] MEDS: MoRPHine SULFATE 4 MG/ML 1 ML CARP\\VIAL IV PRN (16:04)
--- NOTE | 2017-03-09 19:08 | Progress Note ---
Medicine Progress Note Date & Time of Visit: Mar 09, 2017 at 19:07. Subjective Patient states she feels as though she is slowly improving, but not yet back to her baseline. She states she had some difficulty breathing last night and also has been having difficulty sleeping at night. No other complaints noted. Objective Last 8 Hrs Date Time Temp Pulse Resp B/P (MAP) Pulse Ox O2 Delivery O2 Flow Rate FiO2 03/09/17 15:17 36.7 84 20 145/74 (97) 98 6.0 03/09/17 15:02 76 22 98 Nasal Cannula 6.0 03/09/17 12:00 Nasal Cannula 6.0 03/09/17 11:53 36.6 75 18 157/69 (98) 97 2.0 03/09/17 11:17 72 22 97 Nasal Cannula 6.0 Physical Exam: GENERAL: Patient is in no acute distress. HEENT: No acute trauma, normocephalic, mucous membranes moist, no nasal congestion, no scleral icterus. Conjunctivae clear. NECK: No stridor, trachea is midline. LUNGS: Mild bilateral expiratory wheeze (upper airway), diminished breath sounds bilaterally, no rhonchi HEART: Without murmurs gallops or rubs, regular rate and rhythm. ABDOMEN: Soft, nontender, bowel sounds positive, no hepatosplenomegaly EXTREMITIES: No cyanosis or edema, full range of motion of all the joints without pain or difficulty, no signs for acute trauma. NEUROLOGIC: Oriented x 3, no acute motor or sensory deficits, no focal weakness. SKIN: No rash, no jaundice, no diaphoresis. Laboratory Results: Last 24 Hours Test 03/08/17 20:08 03/09/17 01:56 03/09/17 05:32 03/09/17 07:51 Bedside Glucose 83 mg/dl 122 mg/dl 141 mg/dl White Blood Count 17.89 K/uL Red Blood Count 3.58 M/uL Hemoglobin 10.2 g/dL Hematocrit 31.9 % Mean Corpuscular Volume 89.1 fL Mean Corpuscular Hemoglobin 28.5 pg Mean Corpuscular Hemoglobin Concent 32.0 g/dl Platelet Count 195 K/uL Mean Platelet Volume 9.6 fL Neutrophils (%) (Auto) 91.6 % Lymphocytes (%) (Auto) 4.5 % Monocytes (%) (Auto) 2.9 % Eosinophils (%) (Auto) 0.0 % Basophils (%) (Auto) 0.0 % Neutrophils # (Auto) 16.39 K/uL Lymphocytes # (Auto) 0.80 K/uL Monocytes # (Auto) 0.52 K/uL Eosinophils # (Auto) 0.00 K/uL Basophils # (Auto) 0.00 K/uL RDW Standard Deviation 46.3 fL RDW Coefficient of Variation 14.1 % Immature Granulocyte % (Auto) 1.0 % Immature Granulocyte # (Auto) 0.18 K/uL Sodium Level 140 mmol/L Potassium Level 4.2 mmol/L Chloride Level 107 mmol/L Carbon Dioxide Level 26 mmol/L Anion Gap 7.0 mmol/L Blood Urea Nitrogen 19 mg/dl Creatinine 0.82 mg/dl Est Creatinine Clear Calc Drug Dose 72.2 ml/min Estimated GFR () 88.9 Estimated GFR (Non- 76.7 BUN/Creatinine Ratio 23.3 Random Glucose 124 mg/dl Calcium Level 8.3 mg/dl Test 03/09/17 12:03 03/09/17 16:31 Bedside Glucose 172 mg/dl 111 mg/dl Assessment & Plan ACUTE ON CHRONIC HYPOXIC RESPIRATORY FAILURE: -likely has COPD exacerbation, and acute bronchitis in additions to known alpha- 1 antitrypsin deficiency -blood, sputum and urine cultures negative -Fungitell, Aspergillus Ag, mycoplasma are still pending -on Cefepime + Levaquin Day #4 -continued on nebs q4h -on Solu medrol 40mg q12h, will taper slowly -Pulmonary consulted and following, appreciate recommendations, -CT PE negative -Pulm recommends bipap intermittently during the day to provide patient some relief from work of breathing -continued on Dornase -on 6L nasal cannula ANTITRYPSIN DEFICIENCY: -resumed Prolastin weekly; brought medication from home ELEVATED LACTATE: unlikely severe sepsis, more likely related to respiratory exertion -Lactic acid 2.4--> 3 -continued on IV fluids -LA elevation most likely from Beta agonist as per Pulmonary DM TYPE II: -hold Metformin -Pharmacy Glycemic Management consulted HISTORY OF PE: -on Lovenox for DVT prophylaxis -will obtain CT for PE rule out CHRONIC PAIN: -continue Morphine 30mg BID and PRN IV morphine Current Inpatient Medications: Current Inpatient Medications Medications (Trade) Dose Ordered Sig/Aram Route Start Time Stop Time Status Last Admin Dose Admin Levalbuterol (Xopenex 1.25MG/ 0.5ML Neb) 1.25 mg Q4R INH 03/06/17 16:00 04/05/17 15:59 03/09/17 15:00 1.25 MG Methylprednisolone Sodium Succinate 40 mg/Syringe 0.64 ml @ 1.5 mls/min Q6H IV 03/06/17 20:00 04/05/17 19:59 03/09/17 13:45 1.5 MLS/MIN Levofloxacin (Consult) 1 ea UD PRN N/A 03/06/17 15:25 04/05/17 15:24 Insulin Aspart (novoLOG ASPART) SLIDING SCALE If C... ACHS SC 03/06/17 16:00 04/05/17 15:59 03/09/17 18:03 6 UNITS Glucose (Glucose 40% Gel) 15-30 GRAMS 15 GRAMS... UD PRN PO 03/06/17 15:15 04/05/17 15:14 Glucose (Glucose Chew Tab) 4-8 Tablets 4 Tabl... UD PRN PO 03/06/17 15:15 04/05/17 15:14 Dextrose (Dextrose 50% 50ML Syringe) 25-50ML OF 50% DW IV FOR... UD PRN IV 03/06/17 15:15 04/05/17 15:14 Glucagon (Glucagon Inj) 1 mg UD PRN SQ 03/06/17 15:15 04/05/17 15:14 Miscellaneous Information (Consult Glycemic Management Pharmacy) 1 ea UD PRN N/A 03/06/17 15:27 04/05/17 15:26 Arformoterol Tartrate (Brovana 15MCG/ 2ML Neb Soln) 15 mcg BIDR INH 03/06/17 20:00 04/05/17 19:59 03/09/17 08:30 15 MCG Citalopram Hydrobromide (celeXA TAB) 40 mg DAILY PO 03/07/17 09:00 04/06/17 08:59 03/09/17 08:04 40 MG Pantoprazole Sodium (Protonix Tab) 40 mg DAILY PO 03/07/17 09:00 04/06/17 08:59 03/09/17 08:04 40 MG Potassium Chloride (Klor-Con Tab) 20 meq QAM PO 03/07/17 09:00 04/06/17 08:59 03/09/17 08:04 20 MEQ Ranitidine HCl (zANTac TAB) 300 mg BID PO 03/06/17 21:00 04/05/17 20:59 03/09/17 08:05 300 MG Roflumilast (Daliresp Tab) 500 mcg QAM PO 03/07/17 09:00 04/06/17 08:59 03/09/17 08:05 500 MCG Enoxaparin Sodium (Lovenox Inj) 40 mg QPM SQ 03/06/17 21:00 04/05/17 20:59 03/08/17 20:38 40 MG Acetaminophen (Tylenol Tab) 650 mg Q4H PRN PO 03/06/17 15:15 04/05/17 15:14 Cefepime HCl (Consult) 1 ea UD PRN N/A 03/06/17 16:00 04/05/17 15:59 Morphine Sulfate (Oramorph Sr Tab) 30 mg BID PO 03/06/17 21:00 03/20/17 20:59 Future hold 03/09/17 08:09 30 MG Cefepime HCl 2000 mg/Syringe 20 ml @ 5 mls/min Q12H IV 03/06/17 20:00 03/13/17 19:59 03/09/17 08:09 5 MLS/MIN Heparin Sodium (Porcine) (Heparin 100 Unit/ml 5ml Flush) 5 ml PRN PRN IV 03/07/17 01:00 04/06/17 00:59 03/09/17 11:12 5 ML Levofloxacin 750 mg/Prmx 150 ml @ 100 mls/hr Q24H IV 03/07/17 14:00 03/13/17 13:59 03/09/17 13:45 100 MLS/HR Insulin Glargine (Lantus Solostar Pen) 18 units BID SC 03/07/17 09:00 04/06/17 08:59 03/09/17 08:14 18 UNITS Docusate Sodium (coLACE CAP) 100 mg BID PO 03/07/17 21:00 04/06/17 20:59 03/09/17 08:04 100 MG Polyethylene (Miralax Powder Packet) 17 gm DAILY PRN PO 03/07/17 09:30 04/06/17 09:29 03/08/17 07:54 17 GM Dornase Venkat (Pulmozyme Inhalation Soln 2.5ml Amp) 2.5 ml BIDR INH 03/07/17 20:00 04/06/17 19:59 03/09/17 07:07 2.5 ML Ipratropium [place] (Atrovent 0.02% 0.5MG/2.5ML Neb) 0.5 mg Q4R INH 03/07/17 12:00 04/06/17 11:59 03/09/17 15:00 0.5 MG Morphine Sulfate (MoRPHine SULFATE INJ) 3 mg Q4H PRN IV 03/07/17 13:45 03/21/17 13:44 03/09/17 16:04 3 MG Senna/Docusate Sodium (Senokot S Tab) 1 tab QAM PO 03/08/17 09:00 04/07/17 08:59 03/09/17 08:05 1 TAB Miscellaneous Information (Order Awaiting Action) 1 ea QS N/A 03/08/17 16:00 04/07/17 15:59 03/08/17 15:22 1 EA Ioversol (Optiray 320) 100 ml UD PRN IV 03/08/17 17:15 03/12/17 17:14
--- NOTE | 2017-03-09 19:32 | Pulmonology Progress Note ---
Pulmonary Progress Note Date of Service Mar 09, 2017. Attending Dr. Mccartney Subjective Patient seen and examined this morning. Just came back from bathroom. Quite tachypneic and wheezing. Called respiratory therapist to give nebulizer. She states that she slept a little better last night. Tolerated BIPAP. Patient and requesting private room. Spoke to charge nurse to came to bedside. Objective Vital signs reviewed. Still remains on 6 L nasal cannula with intermittent use of BIPAP. Gen.: Awake alert oriented 3, appears calm but quite dyspneic when speaking. CVS: S1-S2, regular rate and rhythm Lungs: Crackles bilaterally with wheezing, tachypnic accessory muscles of respiration when speaking. Currently on 6 L nasal cannula. Abdomen: Soft, nondistended, nontender, bowel sounds positive Extremities: No edema, no cyanosis, no clubbing. Labs reviewed. White blood cell count 1018-17 today, eosinophils within normal limits. Hemoglobin 10.2, platelet count 195 Mycoplasma pneumonia IgM pending, beta-1 3-D glucan pending, Aspergillus antibodies pending. Imaging viewed and reviewed by me. CT chest with contrast--no PE, mild emphysema, trace bilateral pleural effusions , mild interstitial thickening. Medications reviewed. Assessment & Plan Acute on chronic hypoxic respiratory failure. Severe COPD exacerbation. Alpha-1 antitrypsin deficiency. Patient sounds more congested today. She is about 4L positive in balance. Also, having increased wheezing. Intermittent BIPAP appears to be helping somewhat. Continue to use nasal canula prn to maintain SaO2 between 88-92%. I will continue with broad-spectrum antibiotics. Follow-up Fungitell, aspergillus Ag, mycoplasma Ig M and urine legionella. Continue with Antibiotics Continue with IV corticosteroids. Continue with Solu-Medrol 40 mg every 12 hours. Continue with nebulizers every 4-6 hours and when necessary. She may benefit from gentle diuresis. Patient scheduled to receive Prolastin C for alpha anti alpha trypsin deficiency on 03/09/2017. Continue with morphine sulfate 50 mg by mouth every 4 when necessary for dyspnea. Continue with guaifenesin 600 mg by mouth every 12 hours Continue with Roflulimast. Will give a trial of mucomyst 600 mg PO BID to decrease risk of future exacerbation. Continue with aggressive pulmonary toilet with flutter valve and Dornase alpha. Continue with DVT and GI prophylaxis Data Medications: Current Inpatient Medications Medications (Trade) Dose Ordered Sig/Aram Route Start Time Stop Time Status Last Admin Dose Admin Levalbuterol (Xopenex 1.25MG/ 0.5ML Neb) 1.25 mg Q4R INH 03/06/17 16:00 04/05/17 15:59 03/09/17 15:00 1.25 MG Levofloxacin (Consult) 1 ea UD PRN N/A 03/06/17 15:25 04/05/17 15:24 Insulin Aspart (novoLOG ASPART) SLIDING SCALE If C... ACHS SC 03/06/17 16:00 04/05/17 15:59 03/09/17 18:03 6 UNITS Glucose (Glucose 40% Gel) 15-30 GRAMS 15 GRAMS... UD PRN PO 03/06/17 15:15 04/05/17 15:14 Glucose (Glucose Chew Tab) 4-8 Tablets 4 Tabl... UD PRN PO 03/06/17 15:15 04/05/17 15:14 Dextrose (Dextrose 50% 50ML Syringe) 25-50ML OF 50% DW IV FOR... UD PRN IV 03/06/17 15:15 04/05/17 15:14 Glucagon (Glucagon Inj) 1 mg UD PRN SQ 03/06/17 15:15 04/05/17 15:14 Miscellaneous Information (Consult Glycemic Management Pharmacy) 1 ea UD PRN N/A 03/06/17 15:27 04/05/17 15:26 Arformoterol Tartrate (Brovana 15MCG/ 2ML Neb Soln) 15 mcg BIDR INH 03/06/17 20:00 04/05/17 19:59 03/09/17 08:30 15 MCG Citalopram Hydrobromide (celeXA TAB) 40 mg DAILY PO 03/07/17 09:00 04/06/17 08:59 03/09/17 08:04 40 MG Pantoprazole Sodium (Protonix Tab) 40 mg DAILY PO 03/07/17 09:00 04/06/17 08:59 03/09/17 08:04 40 MG Potassium Chloride (Klor-Con Tab) 20 meq QAM PO 03/07/17 09:00 04/06/17 08:59 03/09/17 08:04 20 MEQ Ranitidine HCl (zANTac TAB) 300 mg BID PO 03/06/17 21:00 04/05/17 20:59 03/09/17 08:05 300 MG Roflumilast (Daliresp Tab) 500 mcg QAM PO 03/07/17 09:00 04/06/17 08:59 03/09/17 08:05 500 MCG Enoxaparin Sodium (Lovenox Inj) 40 mg QPM SQ 03/06/17 21:00 04/05/17 20:59 03/08/17 20:38 40 MG Acetaminophen (Tylenol Tab) 650 mg Q4H PRN PO 03/06/17 15:15 04/05/17 15:14 Cefepime HCl (Consult) 1 ea UD PRN N/A 03/06/17 16:00 04/05/17 15:59 Morphine Sulfate (Oramorph Sr Tab) 30 mg BID PO 03/06/17 21:00 03/20/17 20:59 Future hold 03/09/17 08:09 30 MG Cefepime HCl 2000 mg/Syringe 20 ml @ 5 mls/min Q12H IV 03/06/17 20:00 03/13/17 19:59 03/09/17 08:09 5 MLS/MIN Heparin Sodium (Porcine) (Heparin 100 Unit/ml 5ml Flush) 5 ml PRN PRN IV 03/07/17 01:00 04/06/17 00:59 03/09/17 11:12 5 ML Levofloxacin 750 mg/Prmx 150 ml @ 100 mls/hr Q24H IV 03/07/17 14:00 03/13/17 13:59 03/09/17 13:45 100 MLS/HR Insulin Glargine (Lantus Solostar Pen) 18 units BID SC 03/07/17 09:00 04/06/17 08:59 03/09/17 08:14 18 UNITS Docusate Sodium (coLACE CAP) 100 mg BID PO 03/07/17 21:00 04/06/17 20:59 03/09/17 08:04 100 MG Polyethylene (Miralax Powder Packet) 17 gm DAILY PRN PO 03/07/17 09:30 04/06/17 09:29 03/08/17 07:54 17 GM Dornase Venkat (Pulmozyme Inhalation Soln 2.5ml Amp) 2.5 ml BIDR INH 03/07/17 20:00 04/06/17 19:59 03/09/17 07:07 2.5 ML Ipratropium [place] (Atrovent 0.02% 0.5MG/2.5ML Neb) 0.5 mg Q4R INH 03/07/17 12:00 04/06/17 11:59 03/09/17 15:00 0.5 MG Morphine Sulfate (MoRPHine SULFATE INJ) 3 mg Q4H PRN IV 03/07/17 13:45 03/21/17 13:44 03/09/17 16:04 3 MG Senna/Docusate Sodium (Senokot S Tab) 1 tab QAM PO 03/08/17 09:00 04/07/17 08:59 03/09/17 08:05 1 TAB Miscellaneous Information (Order Awaiting Action) 1 ea QS N/A 03/08/17 16:00 04/07/17 15:59 03/08/17 15:22 1 EA Ioversol (Optiray 320) 100 ml UD PRN IV 03/08/17 17:15 03/12/17 17:14 Methylprednisolone Sodium Succinate 40 mg/Syringe 0.64 ml @ 1.5 mls/min Q12 IV 03/09/17 21:00 04/05/17 19:59 UNV I & O: 24-Hour Column 03/10/17 07:59 Intake Total 1672 ml Output Total 1000 ml Balance 672 ml Vital Signs: Date Time Temp Pulse Resp B/P (MAP) Pulse Ox O2 Delivery O2 Flow Rate FiO2 03/09/17 15:17 36.7 84 20 145/74 (97) 98 6.0 03/09/17 15:02 76 22 98 Nasal Cannula 6.0 03/09/17 12:00 Nasal Cannula 6.0 03/09/17 11:53 36.6 75 18 157/69 (98) 97 2.0 03/09/17 11:17 72 22 97 Nasal Cannula 6.0 03/09/17 08:30 88 18 98 Nasal Cannula 6.0 03/09/17 08:00 Nasal Cannula 6.0 03/09/17 07:59 36.5 99 20 130/78 (95) 90 Nasal Cannula 6.0 03/09/17 07:10 88 18 98 Nasal Cannula 6.0 03/09/17 04:22 36.5 78 18 157/72 (100) 96 BiPAP 03/09/17 04:00 Nasal Cannula 6.0 03/09/17 03:13 69 20 97 BiPAP/CPAP 40 03/09/17 00:01 Nasal Cannula 6.0 03/08/17 23:59 92 96 40 03/08/17 23:52 36.9 81 18 171/91 (117) 98 Nasal Cannula 6.0 03/08/17 23:04 84 20 95 Nasal Cannula 6.0 03/08/17 20:00 Nasal Cannula 6.0 03/08/17 19:54 36.8 73 16 186/82 (116) 94 Room Air 5.5 03/08/17 19:54 79 20 98 Nasal Cannula 6.0 Laboratory Results: Last 24 Hours Test 03/08/17 20:08 03/09/17 01:56 03/09/17 05:32 03/09/17 07:51 Bedside Glucose 83 mg/dl 122 mg/dl 141 mg/dl White Blood Count 17.89 K/uL Red Blood Count 3.58 M/uL Hemoglobin 10.2 g/dL Hematocrit 31.9 % Mean Corpuscular Volume 89.1 fL Mean Corpuscular Hemoglobin 28.5 pg Mean Corpuscular Hemoglobin Concent 32.0 g/dl Platelet Count 195 K/uL Mean Platelet Volume 9.6 fL Neutrophils (%) (Auto) 91.6 % Lymphocytes (%) (Auto) 4.5 % Monocytes (%) (Auto) 2.9 % Eosinophils (%) (Auto) 0.0 % Basophils (%) (Auto) 0.0 % Neutrophils # (Auto) 16.39 K/uL Lymphocytes # (Auto) 0.80 K/uL Monocytes # (Auto) 0.52 K/uL Eosinophils # (Auto) 0.00 K/uL Basophils # (Auto) 0.00 K/uL RDW Standard Deviation 46.3 fL RDW Coefficient of Variation 14.1 % Immature Granulocyte % (Auto) 1.0 % Immature Granulocyte # (Auto) 0.18 K/uL Sodium Level 140 mmol/L Potassium Level 4.2 mmol/L Chloride Level 107 mmol/L Carbon Dioxide Level 26 mmol/L Anion Gap 7.0 mmol/L Blood Urea Nitrogen 19 mg/dl Creatinine 0.82 mg/dl Est Creatinine Clear Calc Drug Dose 72.2 ml/min Estimated GFR () 88.9 Estimated GFR (Non- 76.7 BUN/Creatinine Ratio 23.3 Random Glucose 124 mg/dl Calcium Level 8.3 mg/dl Test 03/09/17 12:03 03/09/17 16:31 Bedside Glucose 172 mg/dl 111 mg/dl
[2017-03-09] MEDS: POLYETHYLENE (MIRALAX) 17 GM PACK PO PRN (20:56)
[2017-03-09] MEDS: ACETYLCYSTEINE 600 MG CAP PO SCH (20:56)
[2017-03-09] MEDS: ENOXAPARIN 40 MG/0.4 ML SYR SQ SCH (21:00)
[2017-03-09] MEDS ORDERED: HydrALAZINE HCL 20 MG/ML VIAL IV. STA (21:18)
[2017-03-10] VITALS (17 sets, daily range): BP systolic 124–196; BP diastolic 69–99; PULSE 61–90; TEMP 36.3–36.9; O2SAT 92–99
[2017-03-10] MEDS ORDERED: LORAZEPAM 0.5 MG TAB PO ONE (00:15)
[2017-03-10] MEDS: LEVALBUTEROL 1.25MG/0.5ML NEB INH SCH ×6 (03:52→23:13)
[2017-03-10] MEDS: IPRATROPIUM BROMIDE NEB SOLN 0.02% 2.5 ML VIAL INH SCH ×6 (03:52→23:13)
[2017-03-10 06:00] LABS: BASO % 0.1 %; BASO ABS # 0.01 K/uL (0-0.2); COMPLETE YES; HEMATOCRIT 33.1 % (37-47); IG% 1.1 %; LYMPH % 7.4 %; LYMPH ABS # 1.05 K/uL (1.2-3.4); MEAN CORPUSCULAR HEMOGLOBIN 28.7 pg (25-34); MEAN CORPUSCULAR HGB CONC 32.6 g/dl (32-36); MEAN PLATELET VOLUME 9.2 fL (7.4-10.4); NEUT % 85.4 %; PLATELET COUNT 189 K/uL (130-400); RED BLOOD COUNT 3.76 M/uL (4.2-5.4); WHITE BLOOD COUNT 14.19 K/uL (4.8-10.8)
[2017-03-10 06:33] LABS: BUN/CREATININE RATIO 25.7 (10-20); CALCIUM 8.3 mg/dl (8.5-10.1); CREATININE 0.79 mg/dl (0.60-1.20); POTASSIUM 4.1 mmol/L (3.5-5.1)
[2017-03-10] MEDS: DORNASE ALFA (2500U) 2.5MG/2.5ML INH SCH ×2 (07:06→20:00)
[2017-03-10] MEDS: ARFORMOTEROL TART 15MCG/2ML VIAL INH SCH ×2 (07:24→20:33)
[2017-03-10] MEDS: CEFEPIME IV 2,000 MG in SYRINGE 7.5 ML IV SCH (08:11)
[2017-03-10] MEDS: ROFLUMILAST 500 MCG TAB PO SCH (08:11)
[2017-03-10] MEDS: METHYLPREDNISOLONE IV 40 MG in SYRINGE 0 ML IV SCH ×2 (08:11→21:25)
[2017-03-10] MEDS: DOCUSATE SODIUM 100 MG CAP PO SCH ×2 (08:11→21:47)
[2017-03-10] MEDS: ACETYLCYSTEINE 600 MG CAP PO SCH ×2 (08:11→21:47)
[2017-03-10] MEDS: CITALOPRAM 40 MG TAB PO SCH (08:11)
[2017-03-10] MEDS: RANITIDINE HCL 150 MG TAB PO SCH ×2 (08:12→21:47)
[2017-03-10] MEDS: POTASSIUM CHLORIDE 20 MEQ TABCR PO SCH (08:12)
[2017-03-10] MEDS: MoRPHine SULFATE CR 15 MG TAB (MS CONTIN) PO SCH ×2 (08:12→21:25)
[2017-03-10] MEDS: DOCUSATE SODIUM/SENNA 50/8.6MG TAB PO SCH (08:12)
[2017-03-10] MEDS: PANTOprazole SOD 40 MG TAB PO SCH (08:12)
[2017-03-10] MEDS: POLYETHYLENE (MIRALAX) 17 GM PACK PO PRN (08:17)
[2017-03-10] MEDS: INSULIN GLARGINE SOLOSTAR 100 UNITS/ML 3 ML PEN SC SCH (08:20)
[2017-03-10] MEDS: INSULIN ASPART 100 UNITS/ML 3 ML PEN SC SCH ×4 (08:20→21:00)
[2017-03-10] MEDS: MoRPHine SULFATE 4 MG/ML 1 ML CARP\\VIAL IV PRN ×2 (09:28→15:54)
--- NOTE | 2017-03-10 09:52 | Pharmacy Progress Note ---
Glycemic: Assessment & Plan Date of Service Mar 10, 2017. Assessment & Plan Outpatient home regimen: Basaglar (insulin glargine) 12 units BID Novolog 5 units TID w/ meals Metformin 500mg PO BID ASSESSMENT: * BSGs ranging 74-124 mg/dL over the past 24 hours * Pt received 36 units of insulin total yesterday * Steroids decreased from Solumedrol 40 mg IV every 6 hours to 40 mg IV every 12 hours * Pt refused HS dose of insulin last night and Fasting BSG this AM remains stable at 121 mg/dL * Cut back on insulin with taper of steroids PLAN FOR INPATIENT GLYCEMIC CONTROL: * Decrease to Lantus 18 units daily * Loosen to correction factor 25 mg/dl/unit * Loosen to carb ratio 1 unit per 9 grams CHO consumed * Continue goal range Low 120 mg/dL - High 160 mg/dL * Reevaluate insulin doses with each step down in steroid dose
[2017-03-10 13:55] LABS: LEGIONELLA ANTIGEN NOT DETECTED (NOT DETECTED)
[2017-03-10] MEDS: LEVOFLOXACIN 750MG / D5W IV SCH (14:05)
--- NOTE | 2017-03-10 19:16 | Progress Note ---
Medicine Progress Note Date & Time of Visit: Mar 10, 2017 at 19:16. Subjective Patient states she feels about the same as yesterday, no significant improvement. Still gets SOB, tachypneic, and increased wheezing with ambulation to the bathroom and back. No other complaints. Overnight she had some SOB, elevated BP, and BSG were 72 but she was symptomatic. She states she did not sleep well as a result. Objective Last 8 Hrs Date Time Temp Pulse Resp B/P (MAP) Pulse Ox O2 Delivery O2 Flow Rate FiO2 03/10/17 16:02 95 Nasal Cannula 5.0 03/10/17 14:59 80 18 97 Nasal Cannula 5.0 03/10/17 14:34 36.9 76 18 162/74 (103) 92 5.0 03/10/17 11:50 Nasal Cannula 5.0 03/10/17 11:24 36.6 70 20 124/72 (89) 98 Nasal Cannula 5.0 Physical Exam: GENERAL: Patient is in no acute distress. HEENT: No acute trauma, normocephalic, mucous membranes moist, no nasal congestion, no scleral icterus. Conjunctivae clear. NECK: No stridor, trachea is midline. LUNGS: Bilateral expiratory wheeze (upper airway), diminished breath sounds bilaterally, no rhonchi HEART: Without murmurs gallops or rubs, regular rate and rhythm. ABDOMEN: Soft, nontender, bowel sounds positive, no hepatosplenomegaly EXTREMITIES: No cyanosis; trace LE edema, full range of motion of all the joints without pain or difficulty, no signs for acute trauma. NEUROLOGIC: Oriented x 3, no acute motor or sensory deficits, no focal weakness. SKIN: No rash, no jaundice, no diaphoresis. Laboratory Results: Last 24 Hours Test 03/09/17 20:23 03/10/17 05:50 03/10/17 07:18 03/10/17 11:09 Bedside Glucose 72 mg/dl 121 mg/dl 123 mg/dl White Blood Count 14.19 K/uL Red Blood Count 3.76 M/uL Hemoglobin 10.8 g/dL Hematocrit 33.1 % Mean Corpuscular Volume 88.0 fL Mean Corpuscular Hemoglobin 28.7 pg Mean Corpuscular Hemoglobin Concent 32.6 g/dl Platelet Count 189 K/uL Mean Platelet Volume 9.2 fL Neutrophils (%) (Auto) 85.4 % Lymphocytes (%) (Auto) 7.4 % Monocytes (%) (Auto) 6.0 % Eosinophils (%) (Auto) 0.0 % Basophils (%) (Auto) 0.1 % Neutrophils # (Auto) 12.13 K/uL Lymphocytes # (Auto) 1.05 K/uL Monocytes # (Auto) 0.85 K/uL Eosinophils # (Auto) 0.00 K/uL Basophils # (Auto) 0.01 K/uL RDW Standard Deviation 45.1 fL RDW Coefficient of Variation 13.9 % Immature Granulocyte % (Auto) 1.1 % Immature Granulocyte # (Auto) 0.15 K/uL Sodium Level 141 mmol/L Potassium Level 4.1 mmol/L Chloride Level 105 mmol/L Carbon Dioxide Level 31 mmol/L Anion Gap 5.0 mmol/L Blood Urea Nitrogen 20 mg/dl Creatinine 0.79 mg/dl Est Creatinine Clear Calc Drug Dose 74.7 ml/min Estimated GFR () 93.0 Estimated GFR (Non- 80.2 BUN/Creatinine Ratio 25.7 Random Glucose 133 mg/dl Calcium Level 8.3 mg/dl Test 03/10/17 16:23 Bedside Glucose 119 mg/dl Assessment & Plan ACUTE ON CHRONIC HYPOXIC RESPIRATORY FAILURE: -likely has COPD exacerbation, and acute bronchitis in additions to known alpha- 1 antitrypsin deficiency -blood, sputum and urine cultures negative -Fungitell, Aspergillus Ag, mycoplasma are still pending -on Cefepime + Levaquin Day #5; will stop abx today -continued on nebs q4h -on Solu medrol 40mg q12h, will taper slowly -Pulmonary consulted and following, appreciate recommendations -CT PE negative -Pulm recommends bipap intermittently during the day to provide patient some relief from work of breathing -continued on Dornase -on 5-6L nasal cannula -discussed light diuresis with patient and she prefers to hold off on any diuretics for now -patient not yet at baseline ANTITRYPSIN DEFICIENCY: -resumed Prolastin weekly; brought medication from home ELEVATED LACTATE: unlikely severe sepsis, more likely related to respiratory exertion/BA -Lactic acid 2.4--> 3 -treated with IV fluids; now off -LA elevation most likely from Beta agonist as per Pulmonary DM TYPE II: -hold Metformin -Pharmacy Glycemic Management consulted, appreciate recs HISTORY OF PE: -on Lovenox for DVT prophylaxis -will obtain CT for PE rule out CHRONIC PAIN: -continue Morphine 30mg BID and PRN IV morphine Current Inpatient Medications: Current Inpatient Medications Medications (Trade) Dose Ordered Sig/Aram Route Start Time Stop Time Status Last Admin Dose Admin Levalbuterol (Xopenex 1.25MG/ 0.5ML Neb) 1.25 mg Q4R INH 03/06/17 16:00 04/05/17 15:59 03/10/17 14:57 1.25 MG Levofloxacin (Consult) 1 ea UD PRN N/A 03/06/17 15:25 04/05/17 15:24 Insulin Aspart (novoLOG ASPART) SLIDING SCALE If C... ACHS SC 03/06/17 16:00 04/05/17 15:59 03/10/17 17:33 9 UNITS Glucose (Glucose 40% Gel) 15-30 GRAMS 15 GRAMS... UD PRN PO 03/06/17 15:15 04/05/17 15:14 Glucose (Glucose Chew Tab) 4-8 Tablets 4 Tabl... UD PRN PO 03/06/17 15:15 04/05/17 15:14 Dextrose (Dextrose 50% 50ML Syringe) 25-50ML OF 50% DW IV FOR... UD PRN IV 03/06/17 15:15 04/05/17 15:14 Glucagon (Glucagon Inj) 1 mg UD PRN SQ 03/06/17 15:15 04/05/17 15:14 Miscellaneous Information (Consult Glycemic Management Pharmacy) 1 ea UD PRN N/A 03/06/17 15:27 04/05/17 15:26 Arformoterol Tartrate (Brovana 15MCG/ 2ML Neb Soln) 15 mcg BIDR INH 03/06/17 20:00 04/05/17 19:59 03/10/17 07:24 15 MCG Citalopram Hydrobromide (celeXA TAB) 40 mg DAILY PO 03/07/17 09:00 04/06/17 08:59 03/10/17 08:11 40 MG Pantoprazole Sodium (Protonix Tab) 40 mg DAILY PO 03/07/17 09:00 04/06/17 08:59 03/10/17 08:12 40 MG Potassium Chloride (Klor-Con Tab) 20 meq QAM PO 03/07/17 09:00 04/06/17 08:59 03/10/17 08:12 20 MEQ Ranitidine HCl (zANTac TAB) 300 mg BID PO 03/06/17 21:00 04/05/17 20:59 03/10/17 08:12 300 MG Roflumilast (Daliresp Tab) 500 mcg QAM PO 03/07/17 09:00 04/06/17 08:59 03/10/17 08:11 500 MCG Enoxaparin Sodium (Lovenox Inj) 40 mg QPM SQ 03/06/17 21:00 04/05/17 20:59 03/09/17 21:00 40 MG Acetaminophen (Tylenol Tab) 650 mg Q4H PRN PO 03/06/17 15:15 04/05/17 15:14 Cefepime HCl (Consult) 1 ea UD PRN N/A 03/06/17 16:00 04/05/17 15:59 Morphine Sulfate (Oramorph Sr Tab) 30 mg BID PO 03/06/17 21:00 03/20/17 20:59 Future hold 03/10/17 08:12 30 MG Cefepime HCl 2000 mg/Syringe 20 ml @ 5 mls/min Q12H IV 03/06/17 20:00 03/13/17 19:59 03/10/17 08:11 5 MLS/MIN Heparin Sodium (Porcine) (Heparin 100 Unit/ml 5ml Flush) 5 ml PRN PRN IV 03/07/17 01:00 04/06/17 00:59 03/10/17 05:59 5 ML Levofloxacin 750 mg/Prmx 150 ml @ 100 mls/hr Q24H IV 03/07/17 14:00 03/13/17 13:59 03/10/17 14:05 100 MLS/HR Docusate Sodium (coLACE CAP) 100 mg BID PO 03/07/17 21:00 04/06/17 20:59 03/10/17 08:11 100 MG Polyethylene (Miralax Powder Packet) 17 gm DAILY PRN PO 03/07/17 09:30 04/06/17 09:29 03/10/17 08:17 17 GM Dornase Venkat (Pulmozyme Inhalation Soln 2.5ml Amp) 2.5 ml BIDR INH 03/07/17 20:00 04/06/17 19:59 03/10/17 07:06 2.5 ML Ipratropium [place] (Atrovent 0.02% 0.5MG/2.5ML Neb) 0.5 mg Q4R INH 03/07/17 12:00 04/06/17 11:59 03/10/17 14:57 0.5 MG Morphine Sulfate (MoRPHine SULFATE INJ) 3 mg Q4H PRN IV 03/07/17 13:45 03/21/17 13:44 03/10/17 15:54 3 MG Senna/Docusate Sodium (Senokot S Tab) 1 tab QAM PO 03/08/17 09:00 04/07/17 08:59 03/10/17 08:12 1 TAB Miscellaneous Information (Order Awaiting Action) 1 ea QS N/A 03/08/17 16:00 04/07/17 15:59 03/08/17 15:22 1 EA Ioversol (Optiray 320) 100 ml UD PRN IV 03/08/17 17:15 03/12/17 17:14 Methylprednisolone Sodium Succinate 40 mg/Syringe 0.64 ml @ 1.5 mls/min Q12 IV 03/09/17 21:00 04/05/17 19:59 03/10/17 08:11 1.5 MLS/MIN Acetylcysteine (Acetylcysteine Cap) 600 mg BID PO 03/09/17 21:00 04/08/17 20:59 03/10/17 08:11 600 MG Insulin Glargine (Lantus Solostar Pen) 18 units DAILY SC 03/10/17 09:00 04/09/17 08:59 03/10/17 08:20 18 UNITS Lorazepam (Ativan Tab) 0.5 mg HSZ PRN PO 03/10/17 19:15 04/09/17 19:14
[2017-03-10] MEDS: LORAZEPAM 0.5 MG TAB PO PRN (21:25)
[2017-03-10] MEDS: ENOXAPARIN 40 MG/0.4 ML SYR SQ SCH (21:28)
[2017-03-10] MEDS ORDERED: HydrALAZINE HCL 20 MG/ML VIAL IV. ONE (23:30)
[2017-03-10] MEDS ORDERED: HydrALAZINE HCL 20 MG/ML VIAL ONE (23:38)
[2017-03-11] VITALS (15 sets, daily range): BP systolic 110–163; BP diastolic 62–72; PULSE 72–93; TEMP 36.6–37; O2SAT 94–97
[2017-03-11] MEDS: LEVALBUTEROL 1.25MG/0.5ML NEB INH SCH ×6 (03:04→23:45)
[2017-03-11] MEDS: IPRATROPIUM BROMIDE NEB SOLN 0.02% 2.5 ML VIAL INH SCH ×6 (03:04→23:45)
[2017-03-11 05:43] LABS: BASO % 0.1 %; BASO ABS # 0.01 K/uL (0-0.2); COMPLETE YES; HEMATOCRIT 33.9 % (37-47); IG% 1.4 %; LYMPH % 8.7 %; LYMPH ABS # 0.87 K/uL (1.2-3.4); MEAN CELL VOLUME 88.3 fL (80-100); MEAN CORPUSCULAR HEMOGLOBIN 28.4 pg (25-34); MEAN CORPUSCULAR HGB CONC 32.2 g/dl (32-36); MEAN PLATELET VOLUME 9.3 fL (7.4-10.4); MONO % 6.1 %; NEUT % 83.7 %; PLATELET COUNT 173 K/uL (130-400); RED BLOOD COUNT 3.84 M/uL (4.2-5.4); WHITE BLOOD COUNT 9.97 K/uL (4.8-10.8)
[2017-03-11] MEDS: MoRPHine SULFATE 4 MG/ML 1 ML CARP\\VIAL IV PRN ×3 (05:47→22:02)
[2017-03-11 06:18] LABS: BUN/CREATININE RATIO 24.2 (10-20); CALCIUM 8.4 mg/dl (8.5-10.1); CREATININE 0.84 mg/dl (0.60-1.20); POTASSIUM 3.9 mmol/L (3.5-5.1)
[2017-03-11] MEDS: DORNASE ALFA (2500U) 2.5MG/2.5ML INH SCH (06:55)
[2017-03-11] MEDS: ARFORMOTEROL TART 15MCG/2ML VIAL INH SCH ×2 (06:55→19:27)
[2017-03-11] MEDS: RANITIDINE HCL 150 MG TAB PO SCH ×2 (08:18→21:25)
[2017-03-11] MEDS: DOCUSATE SODIUM/SENNA 50/8.6MG TAB PO SCH (08:18)
[2017-03-11] MEDS: CITALOPRAM 40 MG TAB PO SCH (08:19)
[2017-03-11] MEDS: PANTOprazole SOD 40 MG TAB PO SCH (08:19)
[2017-03-11] MEDS: DOCUSATE SODIUM 100 MG CAP PO SCH ×2 (08:19→21:25)
[2017-03-11] MEDS: ACETYLCYSTEINE 600 MG CAP PO SCH ×2 (08:22→21:24)
[2017-03-11] MEDS: ROFLUMILAST 500 MCG TAB PO SCH (08:22)
[2017-03-11] MEDS: POTASSIUM CHLORIDE 20 MEQ TABCR PO SCH (08:22)
[2017-03-11] MEDS: METHYLPREDNISOLONE IV 40 MG in SYRINGE 0 ML IV SCH (08:23)
[2017-03-11] MEDS: MoRPHine SULFATE CR 15 MG TAB (MS CONTIN) PO SCH ×2 (08:30→21:24)
[2017-03-11] MEDS: INSULIN GLARGINE SOLOSTAR 100 UNITS/ML 3 ML PEN SC SCH (08:30)
[2017-03-11] MEDS: INSULIN ASPART 100 UNITS/ML 3 ML PEN SC SCH ×4 (08:30→21:00)
--- NOTE | 2017-03-11 17:19 | Pulmonology Progress Note ---
Pulmonary Progress Note Date of Service Mar 11, 2017. Attending Dr. Mccartney Subjective Patient seen and examined this morning. Resting comfortably. Appears to be in no acute distress. When called out to her she awakened without difficulty. States that she's feeling much better from a respiratory standpoint. She is less dyspneic today and having less coughing. She feels that she is almost back at her baseline. She slept well overnight. Objective Vital signs reviewed. MAXIMUM TEMPERATURE 36.9, blood pressure 110/62 to 130/67 , pulse 72-87, respiratory rate 18, pulse oximetry 94-97% on 3-5 L/m. At the time of my evaluation patient was on 4 L/m. Gen.: Awake alert oriented 3, appears calm and much less dyspneic today, CVS: S1-S2, regular rate and rhythm Lungs: Mild sporadic wheezes, mildly tachypneic. Abdomen: Soft, nontender, nondistended, bowel sounds positive Extremities: No edema, no cyanosis, no clubbing bilaterally White blood cell count [id number] today, eosinophils within normal limits. Hemoglobin 10.9, platelet count 195 Urine Legionella not detected. Mycoplasma pneumonia IgM pending, beta-1 3-D glucan pending, Aspergillus antibodies pending. Imaging viewed and reviewed by me. CT chest with contrast--no PE, mild emphysema, trace bilateral pleural effusions , mild interstitial thickening. Medications reviewed. Assessment & Plan Acute on chronic hypoxic respiratory failure. Severe COPD exacerbation. Alpha-1 antitrypsin deficiency. Patient appears to be much improved today from a respiratory standpoint she is back on her baseline 4 L/m nasal cannula. She appears to be in no acute respiratory distress. Less dyspneic and speaking in full sentences. She still does have mild intermittent wheezes. No longer using BiPAP at night. Continue to use nasal canula prn to maintain SaO2 between 88-92%. I will continue with broad-spectrum antibiotics. Follow-up Fungitell, aspergillus Ag, mycoplasma Ig M. Thank you with discontinuation of antibiotics at this point. We'll taper steroids continuous slow steroid taper over the next 14 days. Continue with nebulizers every 4-6 hours and when necessary. She may benefit from gentle diuresis. Patient scheduled to receive Prolastin C for alpha anti alpha trypsin deficiency on 03/09/2017. Continue with morphine sulfate 50 mg by mouth every 4 when necessary for dyspnea. Continue with guaifenesin 600 mg by mouth every 12 hours Continue with Roflulimast. Continue with mucomyst 600 mg PO BID to decrease risk of future exacerbation. I will discontinue Dornase venkat today Continue with DVT and GI prophylaxis. She may be stable for discharge tomorrow. Resume all home respiratory medications. I will sign off case today. Patient should follow with Dr. Georges in 1-2 weeks posthospital discharge in pulmonary clinic. Please contact me if you've any further questions or concerns. Data Medications: Current Inpatient Medications Medications (Trade) Dose Ordered Sig/Aram Route Start Time Stop Time Status Last Admin Dose Admin Levalbuterol (Xopenex 1.25MG/ 0.5ML Neb) 1.25 mg Q4R INH 03/06/17 16:00 04/05/17 15:59 03/11/17 15:26 1.25 MG Insulin Aspart (novoLOG ASPART) SLIDING SCALE If C... ACHS SC 03/06/17 16:00 04/05/17 15:59 03/11/17 12:57 6 UNITS Glucose (Glucose 40% Gel) 15-30 GRAMS 15 GRAMS... UD PRN PO 03/06/17 15:15 04/05/17 15:14 Glucose (Glucose Chew Tab) 4-8 Tablets 4 Tabl... UD PRN PO 03/06/17 15:15 04/05/17 15:14 Dextrose (Dextrose 50% 50ML Syringe) 25-50ML OF 50% DW IV FOR... UD PRN IV 03/06/17 15:15 04/05/17 15:14 Glucagon (Glucagon Inj) 1 mg UD PRN SQ 03/06/17 15:15 04/05/17 15:14 Miscellaneous Information (Consult Glycemic Management Pharmacy) 1 ea UD PRN N/A 03/06/17 15:27 04/05/17 15:26 Arformoterol Tartrate (Brovana 15MCG/ 2ML Neb Soln) 15 mcg BIDR INH 03/06/17 20:00 04/05/17 19:59 03/11/17 06:55 15 MCG Citalopram Hydrobromide (celeXA TAB) 40 mg DAILY PO 03/07/17 09:00 04/06/17 08:59 03/11/17 08:19 40 MG Pantoprazole Sodium (Protonix Tab) 40 mg DAILY PO 03/07/17 09:00 04/06/17 08:59 03/11/17 08:19 40 MG Potassium Chloride (Klor-Con Tab) 20 meq QAM PO 03/07/17 09:00 04/06/17 08:59 03/11/17 08:22 20 MEQ Ranitidine HCl (zANTac TAB) 300 mg BID PO 03/06/17 21:00 04/05/17 20:59 03/11/17 08:18 300 MG Roflumilast (Daliresp Tab) 500 mcg QAM PO 03/07/17 09:00 04/06/17 08:59 03/11/17 08:22 500 MCG Enoxaparin Sodium (Lovenox Inj) 40 mg QPM SQ 03/06/17 21:00 04/05/17 20:59 03/10/17 21:28 40 MG Acetaminophen (Tylenol Tab) 650 mg Q4H PRN PO 03/06/17 15:15 04/05/17 15:14 Morphine Sulfate (Oramorph Sr Tab) 30 mg BID PO 03/06/17 21:00 03/20/17 20:59 Future hold 03/11/17 08:30 30 MG Heparin Sodium (Porcine) (Heparin 100 Unit/ml 5ml Flush) 5 ml PRN PRN IV 03/07/17 01:00 04/06/17 00:59 03/11/17 05:33 5 ML Docusate Sodium (coLACE CAP) 100 mg BID PO 03/07/17 21:00 04/06/17 20:59 03/11/17 08:19 100 MG Polyethylene (Miralax Powder Packet) 17 gm DAILY PRN PO 03/07/17 09:30 04/06/17 09:29 03/10/17 08:17 17 GM Dornase Venkat (Pulmozyme Inhalation Soln 2.5ml Amp) 2.5 ml BIDR INH 03/07/17 20:00 04/06/17 19:59 03/11/17 06:55 2.5 ML Ipratropium [place] (Atrovent 0.02% 0.5MG/2.5ML Neb) 0.5 mg Q4R INH 03/07/17 12:00 04/06/17 11:59 03/11/17 15:26 0.5 MG Morphine Sulfate (MoRPHine SULFATE INJ) 3 mg Q4H PRN IV 03/07/17 13:45 03/21/17 13:44 03/11/17 13:03 3 MG Senna/Docusate Sodium (Senokot S Tab) 1 tab QAM PO 03/08/17 09:00 04/07/17 08:59 03/11/17 08:18 1 TAB Miscellaneous Information (Order Awaiting Action) 1 ea QS N/A 03/08/17 16:00 04/07/17 15:59 03/08/17 15:22 1 EA Ioversol (Optiray 320) 100 ml UD PRN IV 03/08/17 17:15 03/12/17 17:14 Acetylcysteine (Acetylcysteine Cap) 600 mg BID PO 03/09/17 21:00 04/08/17 20:59 03/11/17 08:22 600 MG Insulin Glargine (Lantus Solostar Pen) 18 units DAILY SC 03/10/17 09:00 04/09/17 08:59 03/11/17 08:30 18 UNITS Lorazepam (Ativan Tab) 0.5 mg HSZ PRN PO 03/10/17 19:15 04/09/17 19:14 03/10/17 21:25 0.5 MG Prednisone (PredniSONE TAB) 40 mg DAILY PO 03/11/17 12:00 04/10/17 11:59 03/11/17 12:32 40 MG I & O: 24-Hour Column 03/12/17 08:00 Intake Total 275 ml Balance 275 ml Vital Signs: Date Time Temp Pulse Resp B/P (MAP) Pulse Ox O2 Delivery O2 Flow Rate FiO2 03/11/17 15:28 73 18 97 Nasal Cannula 5.0 03/11/17 12:43 36.6 81 118/67 (84) 96 03/11/17 12:00 Nasal Cannula 5.0 03/11/17 10:47 87 18 96 Nasal Cannula 4.0 03/11/17 08:00 Nasal Cannula 5.0 03/11/17 07:32 36.9 86 18 110/62 (78) 94 3.5 03/11/17 06:55 79 18 96 Nasal Cannula 5.0 03/11/17 04:00 Nasal Cannula 5.0 03/11/17 03:56 36.9 86 18 125/72 (89) 94 Nasal Cannula 5.0 03/11/17 03:04 72 18 96 Nasal Cannula 5.0 03/11/17 00:17 130/67 (88) 03/11/17 00:00 Nasal Cannula 5.0 03/10/17 23:50 36.8 61 18 196/99 (131) 97 Nasal Cannula 5.0 03/10/17 23:13 74 18 96 Nasal Cannula 5.0 03/10/17 20:34 79 18 96 Nasal Cannula 5.0 03/10/17 20:01 95 Nasal Cannula 5.0 03/10/17 19:36 36.5 63 18 159/77 (104) 96 6.0 Laboratory Results: Last 24 Hours Test 03/10/17 20:36 03/11/17 05:32 03/11/17 07:36 03/11/17 11:55 Bedside Glucose 134 mg/dl 119 mg/dl 138 mg/dl White Blood Count 9.97 K/uL Red Blood Count 3.84 M/uL Hemoglobin 10.9 g/dL Hematocrit 33.9 % Mean Corpuscular Volume 88.3 fL Mean Corpuscular Hemoglobin 28.4 pg Mean Corpuscular Hemoglobin Concent 32.2 g/dl Platelet Count 173 K/uL Mean Platelet Volume 9.3 fL Neutrophils (%) (Auto) 83.7 % Lymphocytes (%) (Auto) 8.7 % Monocytes (%) (Auto) 6.1 % Eosinophils (%) (Auto) 0.0 % Basophils (%) (Auto) 0.1 % Neutrophils # (Auto) 8.34 K/uL Lymphocytes # (Auto) 0.87 K/uL Monocytes # (Auto) 0.61 K/uL Eosinophils # (Auto) 0.00 K/uL Basophils # (Auto) 0.01 K/uL RDW Standard Deviation 45.1 fL RDW Coefficient of Variation 14.0 % Immature Granulocyte % (Auto) 1.4 % Immature Granulocyte # (Auto) 0.14 K/uL Sodium Level 142 mmol/L Potassium Level 3.9 mmol/L Chloride Level 104 mmol/L Carbon Dioxide Level 31 mmol/L Anion Gap 7.0 mmol/L Blood Urea Nitrogen 20 mg/dl Creatinine 0.84 mg/dl Est Creatinine Clear Calc Drug Dose 70.3 ml/min Estimated GFR () 86.3 Estimated GFR (Non- 74.5 BUN/Creatinine Ratio 24.2 Random Glucose 140 mg/dl Calcium Level 8.4 mg/dl Test 03/11/17 16:53 Bedside Glucose 164 mg/dl
[2017-03-11] MEDS ORDERED: INSULIN ASPART 100 UNITS/ML 3 ML PEN SC SCH (17:20)
[2017-03-11] MEDS ORDERED: NURSING VERBAL MED ORDER ONE ×2 (17:30→17:45)
--- NOTE | 2017-03-11 19:02 | Progress Note ---
Medicine Progress Note Date & Time of Visit: Mar 11, 2017 at 19:02. Subjective Patient states she is feeling better; she has some wheezing with ambulation and feels she is almost back to baseline. Slept slightly better last night. No overnight events noted. Did not require bipap today. Tolerating PO. Has no other complaints at this time. Has been urinating frequently. Objective Last 8 Hrs Date Time Temp Pulse Resp B/P (MAP) Pulse Ox O2 Delivery O2 Flow Rate FiO2 03/11/17 15:28 73 18 97 Nasal Cannula 5.0 03/11/17 12:43 36.6 81 118/67 (84) 96 03/11/17 12:00 Nasal Cannula 5.0 Physical Exam: GENERAL: Patient is in no acute distress. HEENT: No acute trauma, normocephalic, mucous membranes moist, no nasal congestion, no scleral icterus. Conjunctivae clear. NECK: No stridor, trachea is midline. LUNGS: Bilateral expiratory wheeze (upper airway), diminished breath sounds bilaterally, no rhonchi HEART: Without murmurs gallops or rubs, regular rate and rhythm. ABDOMEN: Soft, nontender, bowel sounds positive, no hepatosplenomegaly EXTREMITIES: No cyanosis; trace LE edema, full range of motion of all the joints without pain or difficulty, no signs for acute trauma. NEUROLOGIC: Oriented x 3, no acute motor or sensory deficits, no focal weakness. SKIN: No rash, no jaundice, no diaphoresis. Laboratory Results: Last 24 Hours Test 03/10/17 20:36 03/11/17 05:32 03/11/17 07:36 03/11/17 11:55 Bedside Glucose 134 mg/dl 119 mg/dl 138 mg/dl White Blood Count 9.97 K/uL Red Blood Count 3.84 M/uL Hemoglobin 10.9 g/dL Hematocrit 33.9 % Mean Corpuscular Volume 88.3 fL Mean Corpuscular Hemoglobin 28.4 pg Mean Corpuscular Hemoglobin Concent 32.2 g/dl Platelet Count 173 K/uL Mean Platelet Volume 9.3 fL Neutrophils (%) (Auto) 83.7 % Lymphocytes (%) (Auto) 8.7 % Monocytes (%) (Auto) 6.1 % Eosinophils (%) (Auto) 0.0 % Basophils (%) (Auto) 0.1 % Neutrophils # (Auto) 8.34 K/uL Lymphocytes # (Auto) 0.87 K/uL Monocytes # (Auto) 0.61 K/uL Eosinophils # (Auto) 0.00 K/uL Basophils # (Auto) 0.01 K/uL RDW Standard Deviation 45.1 fL RDW Coefficient of Variation 14.0 % Immature Granulocyte % (Auto) 1.4 % Immature Granulocyte # (Auto) 0.14 K/uL Sodium Level 142 mmol/L Potassium Level 3.9 mmol/L Chloride Level 104 mmol/L Carbon Dioxide Level 31 mmol/L Anion Gap 7.0 mmol/L Blood Urea Nitrogen 20 mg/dl Creatinine 0.84 mg/dl Est Creatinine Clear Calc Drug Dose 70.3 ml/min Estimated GFR () 86.3 Estimated GFR (Non- 74.5 BUN/Creatinine Ratio 24.2 Random Glucose 140 mg/dl Calcium Level 8.4 mg/dl Test 03/11/17 16:53 Bedside Glucose 164 mg/dl Assessment & Plan ACUTE ON CHRONIC HYPOXIC RESPIRATORY FAILURE: -likely has COPD exacerbation, and acute bronchitis in additions to known alpha- 1 antitrypsin deficiency -blood, sputum and urine cultures negative -Fungitell, Aspergillus Ag, mycoplasma are still pending -on Cefepime + Levaquin Day for 5 days, now off -continued on nebs q4h -on Solu medrol 40mg q12h, will taper to PO today -Pulmonary consulted and following, appreciate recommendations -CT PE negative -Pulm recommends bipap intermittently during the day to provide patient some relief from work of breathing -continued on Dornase -still on 5-6L nasal cannula -discussed light diuresis with patient and she prefers to hold off on any diuretics for now -patient not yet at baseline ANTITRYPSIN DEFICIENCY: -resumed Prolastin weekly; brought medication from home, took her dose this past Tuesday while in the hospital ELEVATED LACTATE: unlikely severe sepsis, more likely related to respiratory exertion/BA -Lactic acid 2.4--> 3 -treated with IV fluids and treating her respiratory distress; now off -LA elevation most likely from Beta agonist as per Pulmonary DM TYPE II: -hold Metformin -Pharmacy Glycemic Management consulted, appreciate recs HISTORY OF PE: -on Lovenox for DVT prophylaxis -will obtain CT for PE rule out CHRONIC PAIN: -continue Morphine 30mg BID and PRN IV morphine Current Inpatient Medications: Current Inpatient Medications Medications (Trade) Dose Ordered Sig/Aram Route Start Time Stop Time Status Last Admin Dose Admin Levalbuterol (Xopenex 1.25MG/ 0.5ML Neb) 1.25 mg Q4R INH 03/06/17 16:00 04/05/17 15:59 03/11/17 15:26 1.25 MG Insulin Aspart (novoLOG ASPART) SLIDING SCALE If C... ACHS SC 03/06/17 16:00 04/05/17 15:59 03/11/17 17:48 8 UNITS Glucose (Glucose 40% Gel) 15-30 GRAMS 15 GRAMS... UD PRN PO 03/06/17 15:15 04/05/17 15:14 Glucose (Glucose Chew Tab) 4-8 Tablets 4 Tabl... UD PRN PO 03/06/17 15:15 04/05/17 15:14 Dextrose (Dextrose 50% 50ML Syringe) 25-50ML OF 50% DW IV FOR... UD PRN IV 03/06/17 15:15 04/05/17 15:14 Glucagon (Glucagon Inj) 1 mg UD PRN SQ 03/06/17 15:15 04/05/17 15:14 Miscellaneous Information (Consult Glycemic Management Pharmacy) 1 ea UD PRN N/A 03/06/17 15:27 04/05/17 15:26 Arformoterol Tartrate (Brovana 15MCG/ 2ML Neb Soln) 15 mcg BIDR INH 03/06/17 20:00 04/05/17 19:59 03/11/17 06:55 15 MCG Citalopram Hydrobromide (celeXA TAB) 40 mg DAILY PO 03/07/17 09:00 04/06/17 08:59 03/11/17 08:19 40 MG Pantoprazole Sodium (Protonix Tab) 40 mg DAILY PO 03/07/17 09:00 04/06/17 08:59 03/11/17 08:19 40 MG Potassium Chloride (Klor-Con Tab) 20 meq QAM PO 03/07/17 09:00 04/06/17 08:59 03/11/17 08:22 20 MEQ Ranitidine HCl (zANTac TAB) 300 mg BID PO 03/06/17 21:00 12/17 20:59 03/11/17 08:18 300 MG Roflumilast (Daliresp Tab) 500 mcg QAM PO 03/07/17 09:00 04/06/17 08:59 03/11/17 08:22 500 MCG Enoxaparin Sodium (Lovenox Inj) 40 mg QPM SQ 03/06/17 21:00 04/05/17 20:59 03/10/17 21:28 40 MG Acetaminophen (Tylenol Tab) 650 mg Q4H PRN PO 03/06/17 15:15 04/05/17 15:14 Morphine Sulfate (Oramorph Sr Tab) 30 mg BID PO 03/06/17 21:00 03/20/17 20:59 Future hold 03/11/17 08:30 30 MG Heparin Sodium (Porcine) (Heparin 100 Unit/ml 5ml Flush) 5 ml PRN PRN IV 03/07/17 01:00 04/06/17 00:59 03/11/17 05:33 5 ML Docusate Sodium (coLACE CAP) 100 mg BID PO 03/07/17 21:00 04/06/17 20:59 03/11/17 08:19 100 MG Polyethylene (Miralax Powder Packet) 17 gm DAILY PRN PO 03/07/17 09:30 04/06/17 09:29 03/10/17 08:17 17 GM Ipratropium [place] (Atrovent 0.02% 0.5MG/2.5ML Neb) 0.5 mg Q4R INH 03/07/17 12:00 04/06/17 11:59 03/11/17 15:26 0.5 MG Morphine Sulfate (MoRPHine SULFATE INJ) 3 mg Q4H PRN IV 03/07/17 13:45 03/21/17 13:44 03/11/17 13:03 3 MG Senna/Docusate Sodium (Senokot S Tab) 1 tab QAM PO 03/08/17 09:00 04/07/17 08:59 03/11/17 08:18 1 TAB Miscellaneous Information (Order Awaiting Action) 1 ea QS N/A 03/08/17 16:00 04/07/17 15:59 03/08/17 15:22 1 EA Ioversol (Optiray 320) 100 ml UD PRN IV 03/08/17 17:15 03/12/17 17:14 Acetylcysteine (Acetylcysteine Cap) 600 mg BID PO 03/09/17 21:00 04/08/17 20:59 03/11/17 08:22 600 MG Insulin Glargine (Lantus Solostar Pen) 18 units DAILY SC 03/10/17 09:00 04/09/17 08:59 03/11/17 08:30 18 UNITS Lorazepam (Ativan Tab) 0.5 mg HSZ PRN PO 03/10/17 19:15 04/09/17 19:14 03/10/17 21:25 0.5 MG Prednisone (PredniSONE TAB) 40 mg DAILY PO 03/11/17 12:00 04/10/17 11:59 03/11/17 12:32 40 MG
[2017-03-11] MEDS: LORAZEPAM 0.5 MG TAB PO PRN (21:24)
[2017-03-11] MEDS: ENOXAPARIN 40 MG/0.4 ML SYR SQ SCH (21:26)
[2017-03-12] VITALS (10 sets, daily range): BP systolic 127–153; BP diastolic 59–73; PULSE 71–89; TEMP 36.3–37.1; O2SAT 92–98
[2017-03-12] MEDS: IPRATROPIUM BROMIDE NEB SOLN 0.02% 2.5 ML VIAL INH SCH ×4 (02:37→15:29)
[2017-03-12] MEDS: LEVALBUTEROL 1.25MG/0.5ML NEB INH SCH ×4 (02:37→15:29)
[2017-03-12] MEDS: MoRPHine SULFATE 4 MG/ML 1 ML CARP\\VIAL IV PRN ×3 (03:01→16:58)
[2017-03-12] MEDS: ARFORMOTEROL TART 15MCG/2ML VIAL INH SCH (06:52)
[2017-03-12] MEDS: RANITIDINE HCL 150 MG TAB PO SCH (07:55)
[2017-03-12] MEDS: DOCUSATE SODIUM/SENNA 50/8.6MG TAB PO SCH (07:55)
[2017-03-12] MEDS: DOCUSATE SODIUM 100 MG CAP PO SCH (07:56)
[2017-03-12] MEDS: PANTOprazole SOD 40 MG TAB PO SCH (07:56)
[2017-03-12] MEDS: CITALOPRAM 40 MG TAB PO SCH (07:56)
[2017-03-12] MEDS: ROFLUMILAST 500 MCG TAB PO SCH (07:57)
[2017-03-12] MEDS: ACETYLCYSTEINE 600 MG CAP PO SCH ×2 (07:57→18:52)
[2017-03-12] MEDS: POTASSIUM CHLORIDE 20 MEQ TABCR PO SCH (07:58)
[2017-03-12] MEDS: MoRPHine SULFATE CR 15 MG TAB (MS CONTIN) PO SCH (08:02)
[2017-03-12] MEDS: INSULIN ASPART 100 UNITS/ML 3 ML PEN SC SCH ×3 (08:05→16:30)
[2017-03-12] MEDS: INSULIN GLARGINE SOLOSTAR 100 UNITS/ML 3 ML PEN SC SCH (08:05)
--- NOTE | 2017-03-12 13:54 | Pharmacy Progress Note ---
Glycemic: Assessment & Plan Date of Service Mar 12, 2017. Assessment & Plan Outpatient home regimen: Basaglar (insulin glargine) 12 units BID Novolog 5 units TID w/ meals Metformin 500mg PO BID ASSESSMENT: * BSGs ranging 119-164mg/dL over the past 24 hours * Pt received 39 units of insulin total yesterday * Steroids decreased from Solumedrol 40 mg IV every 12 hrs to Prednisone 40 mg PO daily * Cut back on insulin with taper of steroids * Plan was to reduce Lantus as fasting BSG was <100 today; however, nurse gave insulin ~1 hr early * Will determine appropriate dose tomorrow based on Fasting BSG PLAN FOR INPATIENT GLYCEMIC CONTROL: * Decide Lantus dose in the AM - likely Reduce to Lantus 12 units daily * Loosen to correction factor 30 mg/dl/unit * Loosen to carb ratio 1 unit per 10 grams CHO consumed * Continue goal range Low 120 mg/dL - High 160 mg/dL * Reevaluate insulin doses with each step down in steroid dose
[2017-03-12] MEDS ORDERED: ACETYLCYSTEINE 600 MG CAP PO STA (17:04)
[2017-03-12] MEDS ORDERED: PRED-301 PO ×2 (17:10→17:30)
[2017-03-12] MEDS ORDERED: MCM600 PO (17:10)
--- NOTE | 2017-03-12 17:16 | Discharge Instructions ---
Discharge Instructions Date of Service Mar 12, 2017. Admission Reason for Admission: Respiratory Failure Discharge Discharge Diagnosis / Problem: Respiratoy failure Discharge Goals Goal(s): Therapeutic intervention Activity Recommendations Activity Limitations: as noted below Exercise/Sports Limitations: gradually increase as tolerated . Instructions / Follow-Up Instructions / Follow-Up Please follow up with Dr. Georges in the next 2 weeks Please expect a call for scheduling an appointment with Dr. Esposito for hospital follow up; the appointment line was not in service today Please obtain the new prescription for Prednisone to allow for a slow taper with the following schedule: Take 40 mg (8 tablets for 3 days), then 35mg (7 tablets for 3 days), then 30 mg (6 tablets for 3 days), then 25 mg (5 tabs for 3 days), then decrease back to 20mg, and can taper steroids further as you normally do from 20mg to 15 mg to 10 mg and finally 5 mg (unless otherwise advised by Pulmonary) Current Hospital Diet Patient's current hospital diet: AHA Diet (Heart Healthy), Diabetes Type 2 Diet Discharge Diet Recommended Diet: AHA Diet (Heart Healthy), Diabetes Type 2 Diet Pending Studies Studies pending at discharge: yes List of pending studies: Serology: Fungitell, Aspergillus Ag, Mycoplasma IgM Laboratory Results Hemoglobin A1c Test 03/07/17 04:55 Range/Units Estimated Average Glucose 128 mg/dl Hemoglobin A1c 6.1 H 4.5-5.6 % Medical Emergencies . Who to Call and When: Medical Emergencies: If at any time you feel your situation is an emergency, please call 911 immediately. . Non-Emergent Contact Non-Emergency issues call your: Primary Care Provider, [employer] . . "Provider Documentation" section prepared by Latasha Maldonado. . VTE Core Measure Inpt VTE Proph given/why not?: Enoxaparin (Lovenox)SQ
--- NOTE | 2017-03-12 17:17 | Discharge Summary ---
Discharge Summary Date of Service Mar 12, 2017. Discharge Summary Admission Date: Mar 06, 2017 at 14:59 Discharge Date: Mar 12, 2017 Discharge Disposition: Home Principal Diagnosis: Acute on Chronic respiratory failure, COPD exacerbation Pending Studies/Follow-Up: Fungitell, Aspergillus, Mycoplasma follow up serology Medication Reconciliation New Medications: Prednisone (Prednisone) 5 Mg Tab 5 MG PO UD, #78 TAB Take 40 mg (8 tablets x 3 days), then 35mg (7 tablets x 3 days), then 30 mg (6 tablets x 3 days), then 25 mg (5 tabs x 3 days) Acetylcysteine (Acetylcysteine) 600 Mg Cap 600 MG PO BID, #60 CAP Continued Medications: Albuterol Hfa (Ventolin Hfa) 200 Puffs/24755 Mcg Aers 2 PUFFS INH Q4 PRN for SOB/Wheezing, #1 INHALER Albuterol Sulf (Albuterol Sulfate 0.083% For Inh) 3 Ml Nebu 3 ML INH UD Arformoterol Tartrate (Brovana) 15 Mcg/2 Ml Neb 15 MCG INH BID, INHALER Calcium/Vitamin D (Os-Oliverio 500 Plus D) Tab 1 TAB PO QAM, 0 Refills Cholecalciferol (Vitamin D3) 1,000 Unit Tab 1 TAB PO DAILY for 90 Days, #90 TAB 3 Refills Citalopram Hydrobromide (Celexa) 40 Mg Tab 40 MG PO DAILY, TAB Cyanocobalamin (B-12) 1,000 Mcg Tab 1000 MCG PO QAM Fluticasone Furoate-Vilanterol (Breo Ellipta) 1 Inh Inh 1 PUFF INH DAILY Guaifenesin La (Guaifenesin Er) 600 Mg Tabcr 600 MG PO Q12H PRN for Cough, TAB Home O2 Therapy (Oxygen) Gas 5-6 LITER NA CONTINOUS Insulin Aspart (Novolog) 100 Units/Ml Inj 5 UNITS SQ TIDM PRN for PRN Insulin Glargine (Basaglar Kwikpen) 100 Unit/Ml Inj 12 UNITS SC BID Ipratropium [place] (Ipratropium [place]) 0.5 Mg/2.5 Ml Nebu 1 VIAL NEB QID for 30 Days, #300 ML 3 Refills Levalbuterol (Levalbuterol HCl) 1.25 Mg/3 Ml Nebu 3 ML NEB TID PRN for SOB/Wheezing Metformin HCl (Metformin HCl) 500 Mg Tab 500 MG PO BID Morphine Sulfate (Morphine Sulfate Er) 30 Mg Tab 30 MG PO BID Morphine Sulfate (Morphine Sulfate) 10 Mg/0.5 Ml Soln 5-10 MG PO Q4 PRN for breakthrough pain Pantoprazole (Pantoprazole Sodium) 40 Mg Tab 40 MG PO DAILY, #30 Polyethylene Glycol 3350 (Miralax) 1 Pow Pow 17 GM PO DAILY PRN for Consult, #527 GM Potassium Chloride (Micro-K Ext Rel) 10 Meq Capcr 20 MEQ PO QAM, CAP Ranitidine Hcl (Zantac) 300 Mg Tab 300 MG PO BID, TAB Roflumilast (Daliresp) 500 Mcg Tab 500 MCG PO QAM Tiotropium [place] (Spiriva Handihaler) 5 Puff/90 Mcg Aerp 1 PUFF INH QAM for 30 Days, #1 INHALER 6 Refills Discontinued Medications: Ibuprofen (Ibuprofen) 600 Mg Tab 1 TAB PO Q6 PRN for Pain Admission Information HPI (per Admitting provider): 61 year old female with history of Chronic Respiratory Failure on 4-6 L O2 via NC, COPD, Antitrypsin Deficiency, DM, PE, presenting with shortness of breath x [address] Esposito for PCP, Dr. Georges for Pulmonary. Patient started to have fever/chills, increasing dyspnea, cough, with sputum for the past 2 days. Progression of symptoms prompted consult to the ER. She was in respiratory distress and was started on Bipap at the ER. She was also given Solumedrol, Cefepime with Levaquin and Nebs. ABG showed pH7.4, PCO2 41, HCO3 26. On exam, patient was seen wearing Bipap mask, alert, oriented, still has tachypnea with HR 120s. States she feels improved compared to admission. No other symptoms. Physical Exam (per Admitting): General Appearance: WD/WN, + pertinent finding (tachypneic, mild accessory muscle use) Head: normocephalic, atraumatic Eyes: normal inspection, PERRL, EOMI, sclerae normal ENT: normal ENT inspection, hearing grossly normal, pharynx normal Neck: supple, no adenopathy, thyroid normal, no JVD, trachea midline Respiratory/Chest: chest non-tender, no accessory muscle use, + accessory muscle use (mild), + pertinent finding ((+) distant breath sounds with scattered wheezing bilaterally) Cardiovascular: no edema, no JVD, no murmur, + tachycardia Abdomen/GI: normal bowel sounds, non tender, soft Back: normal inspection, no CVA tenderness Extremities/Musculoskelatal: normal inspection, no calf tenderness, no pedal edema 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/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: 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, no motor/sensory deficits, alert , normal mood/affect, oriented x 3 Skin: normal color, warm/dry, no rash Lymphatic: no adenopathy Hospital Course ACUTE ON CHRONIC HYPOXIC RESPIRATORY FAILURE: -likely has COPD exacerbation, and acute bronchitis in additions to known alpha- 1 antitrypsin deficiency -blood, sputum and urine cultures negative -Fungitell, Aspergillus Ag, mycoplasma are still pending -on Cefepime + Levaquin Day for 5 days, now off -continued on nebs q4h -on Solu medrol 40mg q12h, switched to PO yesterday -Pulmonary consulted and following, appreciate recommendations -CT PE negative -Pulm recommends bipap intermittently during the day to provide patient some relief from work of breathing -was on Dornase now off -still on 5L nasal cannula -discussed light diuresis with patient and she prefers to hold off on any diuretics for now -patient believes she is at baseline and wants to go home ANTITRYPSIN DEFICIENCY: -resumed Prolastin weekly; brought medication from home, took her dose this past Tuesday while in the hospital ELEVATED LACTATE: unlikely severe sepsis, more likely related to respiratory exertion/BA -Lactic acid 2.4--> 3 -treated with IV fluids and treating her respiratory distress; now off -LA elevation most likely from Beta agonist as per Pulmonary DM TYPE II: -hold Metformin -Pharmacy Glycemic Management consulted, appreciate recs HISTORY OF PE: -on Lovenox for DVT prophylaxis -will obtain CT for PE rule out CHRONIC PAIN: -continue Morphine 30mg BID and PRN IV morphine PHYSICAL EXAM ON DAY OF DISCHARGE: GENERAL: Patient is in no acute distress. HEENT: No acute trauma, normocephalic, mucous membranes moist, no nasal congestion, no scleral icterus. Conjunctivae clear. NECK: No stridor, trachea is midline. LUNGS: Bilateral expiratory wheeze, diminished breath sounds bilaterally, no rhonchi HEART: Without murmurs gallops or rubs, regular rate and rhythm. ABDOMEN: Soft, nontender, bowel sounds positive, no hepatosplenomegaly EXTREMITIES: No cyanosis; trace LE edema, full range of motion of all the joints without pain or difficulty, no signs for acute trauma. NEUROLOGIC: Oriented x 3, no acute motor or sensory deficits, no focal weakness. SKIN: No rash, no jaundice, no diaphoresis. Total time spent on discharge = 37 This includes examination of the patient, discharge planning, medication reconciliation, and communication with other providers. Discharge Instructions See patient instructions
[2017-03-12 18:12] LABS: ASPERGILLUS FLAVUS Negative (Negative); ASPERGILLUS FUMIGATUS Negative (Negative); ASPERGILLUS NIGER Negative (Negative); FUNGITELL (1-3)-B-D-GLUCAN* <31 pg/mL; FUNGITELL INTERP NEGATIVE
== END 2017-03-12 18:48 | disposition home health service (06) | DRG 189 ==
LOC: C.EDB 12:37 → C.MSICU 14:59 → ENRESERV 15:48 → EDBEDREQ 03-08 14:55 → EDBEDREQSVC 03-08 14:56 → ENRESERV 03-08 15:11 → C.MED 03-08 16:31
PROVIDERS: ADMIT Internal Medicine; ATTEND Internal Medicine
DX: J96.21 Acute and chronic respiratory failure with hypoxia (principal); J44.1 Chronic obstructive pulmonary disease with (acute) exacerbation; J44.0 Chronic obstructive pulmonary disease with (acute) lower respiratory infection; E87.2 Acidosis; E88.01 Alpha-1-antitrypsin deficiency; E11.9 Type 2 diabetes mellitus without complications; F32.9 Major depressive disorder, single episode, unspecified; K21.9 Gastro-esophageal reflux disease without esophagitis; Z85.72 Personal history of non-Hodgkin lymphomas; Z87.891 Personal history of nicotine dependence; Z88.2 Allergy status to sulfonamides; Z99.81 Dependence on supplemental oxygen

== ENCOUNTER 2017-03-19 10:27 | Inpatient (IN) | payer OTHER, BC ==
[~2017-03-19] VITALS: Ht 157.5 cm; Wt 83.8 kg
[~2017-03-19 10:27] MED LIST changes: -ALBU1AER9 INH; +ARFO15NE INH; -AZIT250T PO; -BRVIN INH; +CHOL1000 PO; -CHOL100010 PO; -GFNSR600 PO; +GLC500 PO; +GUAI1TAB75 PO; -INSDGIPEN SQ; +INSU100I23 SC; +MCM600 PO; -METF1000 PO; +MORP1TAB12 PO; -MORPHINE SULFATE PO; -MTR/600 PO; -NCYSR50 PO; -POTA-327 PO; +POTA10CA28 PO; +PRED-301 PO; +RXNS10 PO; +VNTHFA/IN INH
[2017-03-19] MEDS ORDERED: ALBINS/ INH (11:07)
[2017-03-19] MEDS ORDERED: SODIUM CHLORIDE 0.9% 500ML 500 ML IV STA (11:18)
[2017-03-19] MEDS ORDERED: ACETAMINOPHEN 500 MG TAB PO STA (11:18)
[2017-03-19] MEDS ORDERED: SODIUM CHLORIDE 0.9% 1000ML 1,000 ML IV STA ×3 (11:18→12:57)
[2017-03-19] MEDS ORDERED: ALBUT/IPRATROP 3MG/0.5MG NEB 3 ML VIAL INH STA (11:29)
[2017-03-19] MEDS ORDERED: METHYLPREDNISOLONE 125 MG VIAL IV STA (11:29)
[2017-03-19 11:33] LABS: HEMATOCRIT 32.5 % (37-47); MEAN CELL VOLUME 89.3 fL (80-100); MEAN CORPUSCULAR HEMOGLOBIN 28.3 pg (25-34); MEAN CORPUSCULAR HGB CONC 31.7 g/dl (32-36); MEAN PLATELET VOLUME 9.3 fL (7.4-10.4); PLATELET COUNT 135 K/uL (130-400); RED BLOOD COUNT 3.64 M/uL (4.2-5.4); WHITE BLOOD COUNT 21.26 K/uL (4.8-10.8)
--- NOTE | 2017-03-19 11:39 | DIAGNOSTIC IMAGING REPORT ---
CHEST ONE VIEW PORTABLE HISTORY: EVALUATE WEAKNESS COMPARISON: Chest 03/07/2017. FINDINGS: Patchy airspace opacity within the right lower lobe. This is new from the prior study. The left lung remains clear. No pneumothorax. No pleural effusions. Left subclavian Port-A-Cath terminates in the SVC. The heart is normal in size. IMPRESSION: A new right lower lobe airspace opacity consistent with a pneumonia. This could represent aspiration. Electronically signed by: Emory Umana M.D. 03/19/2017 11:38 AM Dictated Date/Time: 03/19/2017 11:32 AM
[2017-03-19 11:41] LABS: PARTIAL THROMBOPLASTIN RATIO 1.4; PROTHROMBIN TIME (PATIENT) 10.5 SECONDS (9.0-12.0)
[2017-03-19] MEDS: HYDROmorphone INJ 0.5 MG/0.5 ML SYR IV PRN ×3 (11:49→14:01)
[2017-03-19 11:51] LABS: ALT/SGPT 25 U/L (12-78); BLOOD UREA NITROGEN 14 mg/dl (7-18); BUN/CREATININE RATIO 13.2 (10-20); CALCIUM 8.3 mg/dl (8.5-10.1); CARBON DIOXIDE 30 mmol/L (21-32); CHLORIDE 103 mmol/L (98-107); CREATININE 1.02 mg/dl (0.60-1.20); GLUCOSE 135 mg/dl (70-99); MAGNESIUM 1.4 mg/dl (1.8-2.4); POTASSIUM 3.5 mmol/L (3.5-5.1); SODIUM 140 mmol/L (136-145)
[2017-03-19 12:00] LABS: ALKALINE PHOSPHATASE 102 U/L (45-117); AST/SGOT 23 U/L (15-37); CKMB/CK RATIO 1.6 (0-3.0); THYROID STIMULATING HORMONE 0.448 uIu/ml (0.300-4.500)
[2017-03-19] MEDS ORDERED: LEVAQUIN 750MG / 150ML D5W IV STA (12:00)
[2017-03-19] MEDS ORDERED: CEFEPIME IV 1,000 MG in DEXTROSE 5% 100ML 100 ML IV STA (12:00)
[2017-03-19] MEDS ORDERED: VANCOMYCIN INJ 1,500 MG in SODIUM CHLORIDE 0.9% 500ML 500 ML IV STA (12:02)
[2017-03-19 12:06] LABS: BASO % 0.1 %; BASO ABS # 0.02 K/uL (0-0.2); COMPLETE YES; EOS % 0.2 %; IG% 0.2 %; LYMPH % 2.7 %; LYMPH ABS # 0.57 K/uL (1.2-3.4); MONO % 6.2 %; NEUT % 90.6 %
[2017-03-19 12:13] LABS: URINE APPEARANCE CLEAR (CLEAR); URINE BILIRUBIN NEG (NEG); URINE COLOR DK YELLOW; URINE EPITHELIAL CELL AUTO >30 /lpf (0-5); URINE NITRITE NEG (NEG); URINE PH >= 9.0 (4.5-7.5); URINE SPECIFIC GRAVITY 1.023 (1.000-1.030); UROBILINOGEN NEG (NEG)
[2017-03-19 12:23] LABS: MANUAL MICROSCOPIC REQUIRED? NO; REVIEW REQ? NO; SULFASALICYLIC ACID NEG (NEG)
[2017-03-19] MEDS ORDERED: CEFEPIME IV 1,000 MG in SYRINGE 0 ML IV ONE (12:30)
[2017-03-19] MEDS ORDERED: PHARMACY GLYCEMIC MGMT CONSULT SCH (13:10)
[2017-03-19] MEDS ORDERED: PHARMACY GLYCEMIC MGMT CONSULT STA (13:20)
[2017-03-19] MEDS ORDERED: GLUCAGON FOR INJ 1 MG VIAL SQ PRN (13:30)
[2017-03-19] MEDS ORDERED: GLUCOSE 40% GEL 15 GM TUBE PO PRN (13:30)
[2017-03-19] MEDS ORDERED: DEXTROSE 50% 50 ML SYR IV PRN (13:30)
[2017-03-19] MEDS ORDERED: OPTIRAY 320 IV PRN (13:30)
[2017-03-19] MEDS ORDERED: GLUCOSE 10 TABS/TUBE PO PRN (13:30)
[2017-03-19] MEDS: MAGNESIUM SULFATE 1GM / D5W 1 GM in PREMIXED IN D5W 100 ML IV SCH ×4 (13:42→19:09)
--- NOTE | 2017-03-19 13:42 | Pharmacy Progress Note ---
Glycemic Control Intl Consult Date of Service Mar 19, 2017. Scope Glycemic Pharmacist consulted by Dr Gomez on 03/19/17 for glycemic control and to write orders per [facility] inpatient glycemic control protocol Objective Weight (Kilograms): 75.100 Accuchecks BSG (last 24hrs): Test 03/19/17 11:12 Random Glucose 135 mg/dl (70-99) Laboratory Data (last 24hrs) Test 03/19/17 11:12 Anion Gap 7.0 mmol/L BUN/Creatinine Ratio 13.2 Blood Urea Nitrogen 14 mg/dl Creatinine 1.02 mg/dl Potassium Level 3.5 mmol/L Sodium Level 140 mmol/L White Blood Count 21.26 K/uL Red Blood Count 3.64 M/uL Hemoglobin 10.3 g/dL Hematocrit 32.5 % Mean Corpuscular Volume 89.3 fL Mean Corpuscular Hemoglobin 28.3 pg Mean Corpuscular Hemoglobin Concent 31.7 g/dl Platelet Count 135 K/uL Mean Platelet Volume 9.3 fL Neutrophils (%) (Auto) 90.6 % Lymphocytes (%) (Auto) 2.7 % Monocytes (%) (Auto) 6.2 % Eosinophils (%) (Auto) 0.2 % Basophils (%) (Auto) 0.1 % Neutrophils # (Auto) 19.26 K/uL Lymphocytes # (Auto) 0.57 K/uL Monocytes # (Auto) 1.31 K/uL Eosinophils # (Auto) 0.05 K/uL Basophils # (Auto) 0.02 K/uL HbA1c Item Value Date Time Hemoglobin A1c 6.1 % H 03/07/17 0455 Recent Pertinent Medications Outpatient Anti-diabetic Regimen: * Basaglar (insulin glargine U-100) 12 units SQ BID * NovoLog 5 units SQ TIDM Risk Factors for Insulin Resistance: * Steroids * Infection * Diet Assessment & Plan ASSESSMENT: * 61yo T2DM female well known to pharmacy from previous admissions/glycemic consults. Most recently, earlier this month. * Pt with well controlled diabetes on her SQ basal bolus insulin regimen of ~ 40 units/day. * Pt admitted with pneumonia/sepsis and is being started on high dose RTC solumedrol 125mg IV Q8hrs. * BSG on admission is within range at 132 mg/dl, but the steroids will surely deteriorate this quickly. * Per previous admissions, pt requires ~ 60 units of insulin per day while on Solumedrol 40mg IV Q6hrs. * Since dosing this admission is greater, will slightly stress this to ~ 75 units/day and titrate dosing based on BSG trends and steroid dosing. PLAN FOR INPATIENT GLYCEMIC CONTROL: * Basal insulin * Lantus 19 units SQ BID * Bolus insulin * NovoLog per scale ACHS or Q6hrs while NPO * Goal Range: Low 110 mg/dL - High 140 mg/dL * Correction Factor: 20 mg/dL/unit * Nutritional / Prandial insulin per carb ratio of 1 unit per 7 grams CHO consumed * Please note that the plan above was derived based on current level of insulin resistance and hospital stress. These recommendations are appropriate for inpatient admission only. Plan of care upon discharge will need to be reassessed to avoid potential outpatient hypo/hyperglycemia. Thank you.
[2017-03-19] MEDS ORDERED: INSULIN ASPART 100 UNITS/ML 3 ML PEN SQ PRN (13:45)
[2017-03-19] MEDS ORDERED: POLYETHYLENE (MIRALAX) 17 GM PACK PO PRN (13:45)
[2017-03-19] MEDS ORDERED: VANCOMYCIN CONSULT ACTIVE PRN (14:00)
--- NOTE | 2017-03-19 14:26 | History and Physical ---
History & Physical Date & Time of Service: Mar 19, 2017 at 14:09 Chief Complaint: Fever,Sob Primary Care Physician: August Esposito MD History of Present Illness Source: patient 61 year old F with Alpha-1 antitrypsin deficiency, COPD, DM on insulin, musculoskeletal pain on narcotics at home, GERD who was discharged recently for hospitalization for COPD exacerbation and reports that the day after her discharge she was still feeling shortness of breath and subjective fever with documented fever on ED presentation 38.5 Celsius (101.3 F). Patient also tachycardic 116 bpm, with blood pressure trending down in the ED. Subsequent improved men in blood pressure after IV fluids, ED provider ordered 1.5 liters of fluid. Patient found to have on chest X ray a new right lower lobe airspace opacity consistent with a pneumonia. Patient denies vomiting or aspiration at home. No gastrointestinal complaints and has been able to make urine and stool normally. Patient was actively wheezing when assessed by hospitalist medicine physician but wheezing less audible after nebulizer treatments Past Medical/Surgical History Medical Problems: (1) Rovng-[id number] deficiency Status: Chronic (2) COPD (chronic obstructive pulmonary disease) Status: Chronic (3) Depression Status: Chronic (4) Diabetes type 2, controlled Status: Chronic (5) H/O lymphoma Status: Chronic (6) H/o PE Status: Chronic Surgical Problems: (1) History of back surgery Status: Chronic (2) History of bronchoscopy Status: Chronic (3) S/P SORAIDA (total abdominal hysterectomy) Status: Chronic Family History Cancer Diabetes mellitus FATHER Lung disease FATHER BROTHER Social History Smoking Status: Never Smoker Drug Use: none Marital Status: Housing status: lives with family Occupational Status: disabled Immunizations History of Influenza Vaccine: Yes Influenza Vaccine Date: Jan 24, 2014 History of Tetanus Vaccine?: Yes History of Pneumococcal: Yes Pneumococcal Date: May 16, 2005 History of Hepatitis B Vaccine: Yes Multi-Drug Resistant Organisms History of MDRO: No Allergies Coded Allergies: Sulfamethoxazole w/Trimethoprim (Verified Allergy, Unknown, RASH, 03/19/17 ) Home Medications Scheduled Acetylcysteine (Acetylcysteine), 600 MG PO BID Arformoterol Tartrate (Brovana), 15 MCG INH BID Calcium/Vitamin D (Os-Oliverio 500 Plus D), 1 TAB PO QAM Cholecalciferol (Vitamin D3), 1 TAB PO DAILY Citalopram Hydrobromide (Celexa), 40 MG PO DAILY Cyanocobalamin (B-12), 1,000 MCG PO QAM Fluticasone Furoate-Vilanterol (Breo Ellipta), 1 PUFF INH DAILY Home O2 Therapy (Oxygen), 5-6 LITER NA CONTINOUS Insulin Glargine (Basaglar Kwikpen), 12 UNITS SC BID Ipratropium [place] (Ipratropium [place]), 1 VIAL NEB QID Metformin HCl (Metformin HCl), 500 MG PO BID Morphine Sulfate (Morphine Sulfate Er), 30 MG PO BID Pantoprazole (Pantoprazole Sodium), 40 MG PO DAILY Potassium Chloride (Micro-K Ext Rel), 20 MEQ PO QAM Prednisone (Prednisone), 5 MG PO UD Ranitidine Hcl (Zantac), 300 MG PO BID Roflumilast (Daliresp), 500 MCG PO QAM Tiotropium [place] (Spiriva Handihaler), 1 PUFF INH QAM Scheduled PRN Albuterol Hfa (Ventolin Hfa), 2 PUFFS INH Q4 PRN for SOB/Wheezing Albuterol Sulf (Proventil 0.083% 2.5MG/3ML), 2.5 MG INH QID PRN for SOB/Wheezing Guaifenesin La (Guaifenesin Er), 600 MG PO Q12H PRN for Cough Insulin Aspart (Novolog), 5 UNITS SQ TIDM PRN for PRN Levalbuterol (Levalbuterol HCl), 3 ML NEB TID PRN for SOB/Wheezing Morphine Sulfate (Morphine Sulfate), 5-10 MG PO Q4 PRN for breakthrough pain Polyethylene Glycol 3350 (Miralax), 17 GM PO DAILY PRN for Consult Review of Systems Constitutional: + fever (subjective fever at home, documented 38.5 C in the ED) Eyes: No worsening of vision, No eye pain ENT: No hearing loss, No unusual epistaxis, No sore throat, No trouble swallowing Respiratory: + wheezing, + shortness of breath, No cough, No sputum, No hemoptysis Cardiovascular: No chest pain, No edema, No palpitations Abdomen: No pain, No nausea, No vomiting, No diarrhea, No constipation, No GI bleeding Musculoskeletal: + problem reported (back pain) Genitourinary - Female: No dysuria Neurologic: No numbness/tingling Psychiatric: No substance abuse Endocrine: No fatigue Hematologic / Lymphatic: No abnormal bleeding/bruising Integumentary: No rash, No itch Physical Exam Vital Signs Date Time Temp Pulse Resp B/P (MAP) Pulse Ox O2 Delivery O2 Flow Rate FiO2 03/19/17 13:57 92 16 126/64 93 03/19/17 13:46 92 17 122/60 94 Nasal Cannula 5.0 03/19/17 13:20 97 03/19/17 13:13 99 22 122/60 95 Nasal Cannula 5.0 03/19/17 12:48 108 24 108/54 91 Nasal Cannula 5.0 03/19/17 11:54 99 22 95/40 92 Nasal Cannula 4.0 03/19/17 10:57 106 03/19/17 10:56 Nasal Cannula 4.0 03/19/17 10:41 91 Nasal Cannula 5.0 03/19/17 10:36 38.5 116 26 154/74 91 Nasal Cannula 5.0 General Appearance: WD/WN, no apparent distress Head: normocephalic, atraumatic Eyes: normal inspection, EOMI, sclerae normal ENT: normal ENT inspection, hearing grossly normal, pharynx normal Neck: supple, no JVD, trachea midline Respiratory/Chest: chest non-tender, + respiratory distress, + accessory muscle use, + wheezing Cardiovascular: no edema, no JVD, + tachycardia Abdomen/GI: normal bowel sounds, non tender, soft Back: normal inspection, normal range of motion, + pertinent finding (left shoulder blade area tenderness) Extremities/Musculoskelatal: normal inspection, no calf tenderness, normal capillary refill, no pedal edema, normal range of motion Neurologic/Psych: no motor/sensory deficits, alert, oriented x 3 Skin: normal color, warm/dry, no rash Diagnostics Laboratory Results Results Past 24 Hours Test 03/19/17 11:12 03/19/17 11:43 03/19/17 11:55 Range/Units White Blood Count 21.26 4.8-10.8 K/uL Red Blood Count 3.64 4.2-5.4 M/uL Hemoglobin 10.3 12.0-16.0 g/dL Hematocrit 32.5 37-47 % Mean Corpuscular Volume 89.3 80-100 fL Mean Corpuscular Hemoglobin 28.3 25-34 pg Mean Corpuscular Hemoglobin Concent 31.7 32-36 g/dl Platelet Count 135 130-400 K/uL Mean Platelet Volume 9.3 7.4-10.4 fL Neutrophils (%) (Auto) 90.6 % Lymphocytes (%) (Auto) 2.7 % Monocytes (%) (Auto) 6.2 % Eosinophils (%) (Auto) 0.2 % Basophils (%) (Auto) 0.1 % Neutrophils # (Auto) 19.26 1.4-6.5 K/uL Lymphocytes # (Auto) 0.57 1.2-3.4 K/uL Monocytes # (Auto) 1.31 0.11-0.59 K/uL Eosinophils # (Auto) 0.05 0-0.5 K/uL Basophils # (Auto) 0.02 0-0.2 K/uL RDW Standard Deviation 43.2 36.4-46.3 fL RDW Coefficient of Variation 13.2 11.5-14.5 % Immature Granulocyte % (Auto) 0.2 % Immature Granulocyte # (Auto) 0.05 0.00-0.02 K/uL Red Blood Cell Morphology Unremarkable Prothrombin Time 10.5 9.0-12.0 SECONDS Prothromb Time International Ratio 1.0 0.9-1.1 Activated Partial Thromboplast Time 37.3 21.0-31.0 SECONDS Partial Thromboplastin Ratio 1.4 Sodium Level 140 136-145 mmol/L Potassium Level 3.5 3.5-5.1 mmol/L Chloride Level 103 98-107 mmol/L Carbon Dioxide Level 30 21-32 mmol/L Anion Gap 7.0 3-11 mmol/L Blood Urea Nitrogen 14 7-18 mg/dl Creatinine 1.02 0.60-1.20 mg/dl Estimated GFR () 68.3 Estimated GFR (Non- 58.9 BUN/Creatinine Ratio 13.2 10-20 Random Glucose 135 70-99 mg/dl Calcium Level 8.3 8.5-10.1 mg/dl Magnesium Level 1.4 1.8-2.4 mg/dl Total Bilirubin 0.5 0.2-1 mg/dl Direct Bilirubin 0.2 0-0.2 mg/dl Aspartate Amino Transf (AST/SGOT) 23 15-37 U/L Alanine Aminotransferase (ALT/SGPT) 25 12-78 U/L Alkaline Phosphatase 102 45-117 U/L Total Creatine Kinase 64 26-192 U/L Creatine Kinase MB 1.0 0.5-3.6 ng/ml Creatine Kinase MB Ratio 1.6 0-3.0 Troponin I < 0.015 0-0.045 ng/ml Total Protein 6.0 6.4-8.2 gm/dl Albumin 2.9 3.4-5.0 gm/dl Lipase 446 73-393 U/L Thyroid Stimulating Hormone (TSH) 0.448 0.300-4.500 uIu/ml Bedside Lactic Acid Venous 2.08 0.90-1.70 mmol/L Urine Color DK YELLOW Urine Appearance CLEAR CLEAR Urine pH >= 9.0 4.5-7.5 Urine Specific [place] 1.023 1.000-1.030 Urine Protein NEG NEG Urine Glucose (UA) NEG NEG Urine Ketones TRACE NEG Urine Occult Blood NEG NEG Urine Nitrite NEG NEG Urine Bilirubin NEG NEG Urine Urobilinogen NEG NEG Urine Leukocyte Esterase SMALL NEG Urine WBC (Auto) 1-5 0-5 /hpf Urine RBC (Auto) 5-10 0-4 /hpf Urine Hyaline Casts (Auto) 1-5 0-5 /lpf Urine Epithelial Cells (Auto) >30 0-5 /lpf Urine Bacteria (Auto) NEG NEG Influenza Type A Antigen Neg for Influ A NEG Influenza Type B Antigen Neg for Influ B NEG Microbiology Results 03/19/17 Blood Culture, Received Pending 03/19/17 Blood Culture, Received Pending 03/19/17 Urine Culture, Received Pending Diagnostic Radiology CXR: "A new right lower lobe airspace opacity consistent with a pneumonia." EKG Vent. rate 107 BPM MT interval 158 ms QRS duration 70 ms QT/QTc 318/424 ms Sinus tachycardia Possible Left atrial enlargement Borderline ECG When compared with ECG of 06-MAR-2017 13:00, No significant change was found Impression Assessment and Plan Alpha-1 antitrypsin deficiency patient receives prolastin weekly as outpatient, follows with pulmonary clinic Arcelia Georges Pneumonia 38.5 Celsius (101.3 F) CXR: "A new right lower lobe airspace opacity consistent with a pneumonia." ED provider gave Cefepime 1 gram IV, Vancomycin 1500 mg IV, Levaquin 750 mg IV Continue Cefepime as 2 gram IV q8 hours due to recent hospitalization, possible HCAP, Continue Vancomycin 1500 mg IV q12 hours, Levaquin 750 mg IV daily Follow blood cultures on admission drawn from left chest central line, and peripheral blood ID consult requested for antibiotic de-escalation when patient improves or when cultures return Mycoplasma, Legionella labs and flu swab ordered CTA chest ordered Pulmonary consultation, Dr. Georges appreciated COPD: methylprednisone 125 mg IV q8 hours ipratropium/levalbuterol q4 hours continue home arformoterol, Tiotropium, roflumilast on home oxygen requiring 4 to 6 liters around the clock will maintain on O2 sat between 88% to 92% BIPAP if needed Diabetes pharmacy hyperglycemic consultation requested as patient will be on IV steroids and will likely need increased insulin requirements insulin Hypomagnesemia 4 grams of IV magnesium ordered for serum magnesium 1.4 Once magnesium rechecked and repleted, will give potassium supplements for serum potassium of 3.5 Lactic acid on 2.08. This may rise on subsequent lab draws due to nebulizer treatments but will recheck this level Continue GERD medications Back pain: pain primarily of left shoulder blade area continue home dosed Roxanol prn avoid long acting narcotics for now bowel regimen to prevent narcotic induced ileus DVT ppx: Code Status: as per my discussion with the patient the medical team is allowed to perform chest compression, cardioversion, and intubation if needed. Full Code Status Disposition: admission telemetry next of kin is patient's Arturo (cell phone [phone], home [phone]) Level of Care Telemetry Resuscitation Status FULL RESUSCITATION VTE Prophylaxis VTE Risk Assessment Done? Y/N: Yes Risk Level: Moderate Given or contraindicated: SCD's
[2017-03-19 14:47] VITALS: BP 141/78; PULSE 92; TEMP 37.1; O2SAT 94; Ht 157.5 cm; Wt 83.8 kg
[2017-03-19] MEDS ORDERED: LEVALBUTEROL/IPRATROPIUM NEB INH SCH (15:00)
--- NOTE | 2017-03-19 15:15 | DIAGNOSTIC IMAGING REPORT ---
CHEST CTA for PULMONARY ARTERIES CT DOSE: 573.94 mGy.cm HISTORY: acute respiratory distress, rule out PE. TECHNIQUE: Multiaxial CT images of the chest were performed following the intravenous administration of contrast to evaluate the pulmonary arteries. Maximal intensity projection images were also obtained. A dose lowering technique was utilized adhering to the principles of ALARA. COMPARISON STUDY: Chest CTA 03/08/2017. FINDINGS: The visualized liver, spleen, and adrenal glands are unremarkable. Heterogeneous thyroid gland containing a few subcentimeter nodules. Mild mediastinal and right hilar lymphadenopathy. This is slightly progressed. Left subclavian Port-A-Cath terminates in the SVC. The heart is normal in size. No pleural effusions. No pneumothorax. Emphysema. A few scattered calcified granulomas. The left lung is essentially clear. Patchy areas of consolidation within the right mid to lower lung zone which are new from the prior study. This is consistent with a pneumonia. No evidence for an aortic dissection. Suboptimal evaluation of the segmental and subsegmental pulmonary arteries due to the motion artifact. However, no definite filling defects within the pulmonary arteries to suggest possible embolus. IMPRESSION: 1. No definite evidence for pulmonary embolus. 2. Patchy airspace opacities within the right mid to lower lung zone which are new from the prior study. Therefore, this is consistent with a pneumonia. 3. Emphysema. 4. Mild mediastinal and right hilar lymphadenopathy which has slightly progressed. This is likely reactive. Electronically signed by: Emory Umana M.D. 03/19/2017 3:14 PM Dictated Date/Time: 03/19/2017 3:08 PM
--- NOTE | 2017-03-19 15:29 | Pharmacy Progress Note ---
Pharmacy Abx Initial Consult Date of Service Mar 19, 2017. Pharmacy Dosing Scope Date of Consult: 03/19/17 Consultation requested by: Dr. Gomez Pharmacy is consulted to initiate Vancomycin IV dosing therapy, order appropriate labs and adjust drug dose/frequency. Subjective The patient is a 61 year old female admitted on Mar 19, 2017 at 12:55. Objective Height (Feet): 5 Height (Inches): 2.00 Weight (Kilograms): 85.000 Vital Signs (Past 12Hrs) Vital Signs Past 12 Hours Date Time Temp Pulse Resp B/P (MAP) Pulse Ox O2 Delivery O2 Flow Rate FiO2 03/19/17 14:47 37.1 92 28 141/78 94 Nasal Cannula 5.0 03/19/17 13:57 92 16 126/64 93 03/19/17 13:46 92 17 122/60 94 Nasal Cannula 5.0 03/19/17 13:20 97 03/19/17 13:13 99 22 122/60 95 Nasal Cannula 5.0 03/19/17 12:48 108 24 108/54 91 Nasal Cannula 5.0 03/19/17 11:54 99 22 95/40 92 Nasal Cannula 4.0 03/19/17 10:57 106 03/19/17 10:56 Nasal Cannula 4.0 03/19/17 10:41 91 Nasal Cannula 5.0 03/19/17 10:36 38.5 116 26 154/74 91 Nasal Cannula 5.0 Lab Results (24Hrs) Laboratory Tests (24 Hours) Test 03/19/17 11:12 White Blood Count 21.26 K/uL (4.8-10.8) H Red Blood Count 3.64 M/uL (4.2-5.4) L Hemoglobin 10.3 g/dL (12.0-16.0) L Hematocrit 32.5 % (37-47) L Mean Corpuscular Volume 89.3 fL (80-100) Mean Corpuscular Hemoglobin 28.3 pg (25-34) Mean Corpuscular Hemoglobin Concent 31.7 g/dl (32-36) L Platelet Count 135 K/uL (130-400) Mean Platelet Volume 9.3 fL (7.4-10.4) Neutrophils (%) (Auto) 90.6 % Lymphocytes (%) (Auto) 2.7 % Monocytes (%) (Auto) 6.2 % Eosinophils (%) (Auto) 0.2 % Basophils (%) (Auto) 0.1 % Neutrophils # (Auto) 19.26 K/uL (1.4-6.5) H Lymphocytes # (Auto) 0.57 K/uL (1.2-3.4) L Monocytes # (Auto) 1.31 K/uL (0.11-0.59) H Eosinophils # (Auto) 0.05 K/uL (0-0.5) Basophils # (Auto) 0.02 K/uL (0-0.2) Total Creatine Kinase 64 U/L (26-192) Micro Results Date/Time Source Procedure Growth Status 03/19/17 11:40 Blood Blood Culture Pending Received 03/19/17 11:12 Blood Blood Culture Pending Received 03/19/17 11:55 Urine , Clean Catch Urine Culture Pending Received Risk Factors for Resistance * Hospitalization for 48 hours or more within the past 90 days Assessment & Plan Assessment 61 year old female with possible HCAP Plan Vancomycin for treatment of HCAP. Vancomycin IV * Loading dose: 1500 mg (20 mg/kg) x 1 given today at noon. * Maintenance dose: Vancomycin 1250 mg IV (16.6 mg/kg) every 18 hours * Goal trough level for possible HCAP: 15 to 20 mcg/mL * Trough level ordered for 03/21/17 before dose at 1400. * Estimated Ke = 0.049 /hr, t1/2 = 14 hrs, Vd = 0.7 L/kg. Pharmacy will continue to follow and will adjust dose/frequency as necessary. Thank you.
[2017-03-19] MEDS: IPRATROPIUM BROMIDE NEB SOLN 0.02% 2.5 ML VIAL INH SCH ×2 (15:40→18:57)
[2017-03-19] MEDS: LEVALBUTEROL 1.25MG/0.5ML NEB INH SCH ×2 (15:40→18:57)
[2017-03-19 15:49] VITALS: PULSE 81; O2SAT 97
[2017-03-19] MEDS ORDERED: INSULIN ASPART 100 UNITS/ML 3 ML PEN SC SCH (16:00)
[2017-03-19 16:07] LABS: CALCIUM 7.3 mg/dl (8.5-10.1); CREATININE 0.99 mg/dl (0.60-1.20); MAGNESIUM 1.7 mg/dl (1.8-2.4); POTASSIUM 3.8 mmol/L (3.5-5.1)
[2017-03-19 16:10] LABS: ALB/GLOB RATIO 0.8 (0.9-2)
[2017-03-19] MEDS ORDERED: ENOXAPARIN 40 MG/0.4 ML SYR SQ ONE (16:30)
[2017-03-19] MEDS: INSULIN ASPART 100 UNITS/ML 3 ML PEN SC SCH ×2 (17:10→20:41)
[2017-03-19] MEDS: MoRPHine SULFATE 5 MG/0.25 ML UDP PO PRN (17:11)
--- NOTE | 2017-03-19 18:03 | EMERGENCY ROOM VISIT NOTE ---
History Report prepared by Daisyibamado: Jo Yan Under the Supervision of: Dr. James Frank M.D. First contact with patient: 11:09 Chief Complaint: SHORTNESS OF BREATH Stated Complaint: FEVER,SOB Nursing Triage Summary: patient ws recentely discharged last tuesday after being admitted for respiratory distress. patient states this week she has had a fever, mouth has been dry. severe pain and swelliing to left upper back . patient also states she developed cold sores on lower lip and c/o rash to upper midbac/neck area. "it hurts in that area.. I am not sure If I have shigles on top of everything or not." patient c/o increased SOB and wheezing. patient weares 5LNC at home History of Present Illness The patient is a 61 year old female who presents to the Emergency Room with complaints of right sided back pain beginning 4 days ago. The patient also notes a her pain worsens with taking a deep breath. She rates her pain as a 9/ 10. She reports having a fever, shortness of breath, diarrhea, and a dry mouth. The patient was discharged a week ago after being admitted for respiratory distress. She states that after being discharged from the hospital she did not feel much better. The patient uses 4-6 liter of oxygen at home. The patient used a rescue inhaler pack today but denies using any steroids. The patient states she had her flu shot this year. Pt denies LOC, headache, chills, diaphoresis, visual changes, neck pain, chest pain, breathing difficulties, nausea, vomiting, abdominal pain, melena, hematochezia, urinary symptoms, numbness, weakness, lymphadenopathy, rash, or other complaints. Source of History: patient Onset: 4 days ago Position: back Quality: other (pain) Modifying Factors (Worsening): breathing Associated Symptoms: + fevers, + SOB, + diarrhea Note: Pt notes a dry mouth Review of Systems See HPI for pertinent positives and negatives. A total of ten systems were reviewed and were otherwise negative. Past Medical & Surgical Medical Problems: (1) Oxzpe-[id number] deficiency (2) COPD (chronic obstructive pulmonary disease) (3) Depression (4) Diabetes type 2, controlled (5) GERD (gastroesophageal reflux disease) (6) H/O lymphoma (7) H/o PE (8) Pneumonia (9) Respiratory failure (10) Respiratory failure, acute Surgical Problems: (1) History of back surgery (2) History of bronchoscopy (3) S/P SORAIDA (total abdominal hysterectomy) Family History Cancer Diabetes mellitus FATHER Lung disease FATHER BROTHER Social History Smoking Status: Never Smoker Alcohol Use: occasionally Drug Use: none Marital Status: Housing Status: lives with family Occupation Status: disabled Current/Historical Medications Scheduled Acetylcysteine (Acetylcysteine), 600 MG PO BID Arformoterol Tartrate (Brovana), 15 MCG INH BID Calcium/Vitamin D (Os-Oliverio 500 Plus D), 1 TAB PO QAM Cholecalciferol (Vitamin D3), 1 TAB PO DAILY Citalopram Hydrobromide (Celexa), 40 MG PO DAILY Cyanocobalamin (B-12), 1,000 MCG PO QAM Fluticasone Furoate-Vilanterol (Breo Ellipta), 1 PUFF INH DAILY Home O2 Therapy (Oxygen), 5-6 LITER NA CONTINOUS Insulin Glargine (Basaglar Kwikpen), 12 UNITS SC BID Ipratropium Mccalla (Ipratropium Mccalla), 1 VIAL NEB QID Metformin HCl (Metformin HCl), 500 MG PO BID Morphine Sulfate (Morphine Sulfate Er), 30 MG PO BID Pantoprazole (Pantoprazole Sodium), 40 MG PO DAILY Potassium Chloride (Micro-K Ext Rel), 20 MEQ PO QAM Prednisone (Prednisone), 5 MG PO UD Ranitidine Hcl (Zantac), 300 MG PO BID Roflumilast (Daliresp), 500 MCG PO QAM Tiotropium Mccalla (Spiriva Handihaler), 1 PUFF INH QAM Scheduled PRN Albuterol Hfa (Ventolin Hfa), 2 PUFFS INH Q4 PRN for SOB/Wheezing Albuterol Sulf (Proventil 0.083% 2.5MG/3ML), 2.5 MG INH QID PRN for SOB/Wheezing Guaifenesin La (Guaifenesin Er), 600 MG PO Q12H PRN for Cough Insulin Aspart (Novolog), 5 UNITS SQ TIDM PRN for PRN Levalbuterol (Levalbuterol HCl), 3 ML NEB TID PRN for SOB/Wheezing Morphine Sulfate (Morphine Sulfate), 5-10 MG PO Q4 PRN for breakthrough pain Polyethylene Glycol 3350 (Miralax), 17 GM PO DAILY PRN for Consult Allergies Coded Allergies: Sulfamethoxazole w/Trimethoprim (Verified Allergy, Unknown, RASH, 03/19/17 ) Physical Exam Vital Signs Date Time Temp Pulse Resp B/P (MAP) Pulse Ox O2 Delivery O2 Flow Rate FiO2 03/19/17 12:48 108 24 108/54 91 Nasal Cannula 5.0 03/19/17 11:54 99 22 95/40 92 Nasal Cannula 4.0 03/19/17 10:57 106 03/19/17 10:56 Nasal Cannula 4.0 03/19/17 10:41 91 Nasal Cannula 5.0 03/19/17 10:36 38.5 116 26 154/74 91 Nasal Cannula 5.0 Physical Exam GENERAL: Awake, alert, dyspneic-appearing, in no distress HENT: Normocephalic, atraumatic. Oropharynx unremarkable. Cold sore right lower lip. EYES: Normal conjunctiva. Sclera non-icteric. NECK: Supple. No nuchal rigidity. FROM. No JVD. RESPIRATORY: Dyspneic. Clear to auscultation. CARDIAC: Regular rate, normal rhythm. Extremities warm and well perfused. Pulses equal. ABDOMEN: Soft, non-distended. No tenderness to palpation. No rebound or guarding. No masses. BACK: Appears normal, no shingle. RECTAL: Deferred. MUSCULOSKELETAL: Chest examination reveals no tenderness. The back is symmetrical on inspection without obvious abnormality. There is no CVA tenderness to palpation. No joint edema. LOWER EXTREMITIES: Calves are equal size bilaterally and non-tender. No edema. No discoloration. NEURO: Normal sensorium. No sensory or motor deficits noted. SKIN: No rash or jaundice noted. Medical Decision & Procedures ER Provider Diagnostic Interpretation: Radiology results as stated below per my review and radiologist interpretation: CHEST ONE VIEW PORTABLE FINDINGS: Patchy airspace opacity within the right lower lobe. This is new from the prior study. The left lung remains clear. No pneumothorax. No pleural effusions. Left subclavian Port-A-Cath terminates in the SVC. The heart is normal in size. IMPRESSION: A new right lower lobe airspace opacity consistent with a pneumonia. This could represent aspiration. Electronically signed by: Emory Umana M.D. Laboratory Results 03/19/17 11:12 Red Blood Count 3.64, Mean Corpuscular Volume 89.3, Mean Corpuscular Hemoglobin 28.3, Mean Corpuscular Hemoglobin Concent 31.7, Mean Platelet Volume 9.3, Neutrophils (%) (Auto) 90.6, Lymphocytes (%) (Auto) 2.7, Monocytes (%) (Auto) 6.2, Eosinophils (%) (Auto) 0.2, Basophils (%) (Auto) 0.1, Neutrophils # (Auto) 19.26, Lymphocytes # (Auto) 0.57, Monocytes # (Auto) 1.31, Eosinophils # (Auto) 0.05, Basophils # (Auto) 0.02 Test 03/19/17 11:12 03/19/17 11:43 03/19/17 11:55 White Blood Count 21.26 K/uL (4.8-10.8) Red Blood Count 3.64 M/uL (4.2-5.4) Hemoglobin 10.3 g/dL (12.0-16.0) Hematocrit 32.5 % (37-47) Mean Corpuscular Volume 89.3 fL (80-100) Mean Corpuscular Hemoglobin 28.3 pg (25-34) Mean Corpuscular Hemoglobin Concent 31.7 g/dl (32-36) Platelet Count 135 K/uL (130-400) Mean Platelet Volume 9.3 fL (7.4-10.4) Neutrophils (%) (Auto) 90.6 % Lymphocytes (%) (Auto) 2.7 % Monocytes (%) (Auto) 6.2 % Eosinophils (%) (Auto) 0.2 % Basophils (%) (Auto) 0.1 % Neutrophils # (Auto) 19.26 K/uL (1.4-6.5) Lymphocytes # (Auto) 0.57 K/uL (1.2-3.4) Monocytes # (Auto) 1.31 K/uL (0.11-0.59) Eosinophils # (Auto) 0.05 K/uL (0-0.5) Basophils # (Auto) 0.02 K/uL (0-0.2) RDW Standard Deviation 43.2 fL (36.4-46.3) RDW Coefficient of Variation 13.2 % (11.5-14.5) Immature Granulocyte % (Auto) 0.2 % Immature Granulocyte # (Auto) 0.05 K/uL (0.00-0.02) Red Blood Cell Morphology Unremarkable Prothrombin Time 10.5 SECONDS (9.0-12.0) Prothromb Time International Ratio 1.0 (0.9-1.1) Activated Partial Thromboplast Time 37.3 SECONDS (21.0-31.0) Partial Thromboplastin Ratio 1.4 Direct Bilirubin 0.2 mg/dl (0-0.2) Total Creatine Kinase 64 U/L (26-192) Creatine Kinase MB 1.0 ng/ml (0.5-3.6) Creatine Kinase MB Ratio 1.6 (0-3.0) Troponin I < 0.015 ng/ml (0-0.045) Lipase 446 U/L (73-393) Thyroid Stimulating Hormone (TSH) 0.448 uIu/ml (0.300-4.500) Bedside Lactic Acid Venous 2.08 mmol/L (0.90-1.70) Urine Color DK YELLOW Urine Appearance CLEAR (CLEAR) Urine pH >= 9.0 (4.5-7.5) Urine Specific Wisner 1.023 (1.000-1.030) Urine Protein NEG (NEG) Urine Glucose (UA) NEG (NEG) Urine Ketones TRACE (NEG) Urine Occult Blood NEG (NEG) Urine Nitrite NEG (NEG) Urine Bilirubin NEG (NEG) Urine Urobilinogen NEG (NEG) Urine Leukocyte Esterase SMALL (NEG) Urine WBC (Auto) 1-5 /hpf (0-5) Urine RBC (Auto) 5-10 /hpf (0-4) Urine Hyaline Casts (Auto) 1-5 /lpf (0-5) Urine Epithelial Cells (Auto) >30 /lpf (0-5) Urine Bacteria (Auto) NEG (NEG) Influenza Type A Antigen Neg for Influ A (NEG) Influenza Type B Antigen Neg for Influ B (NEG) Laboratory results reviewed by me Medications Administered Medications (Trade) Dose Ordered Sig/Aram Route Start Time Stop Time Status Last Admin Dose Admin Sodium Chloride 1,000 ml @ 125 mls/hr Q8H STAT IV 03/19/17 11:18 03/19/17 19:17 03/19/17 11:18 125 MLS/HR Sodium Chloride 500 ml @ 999 mls/hr Q31M STAT IV 03/19/17 11:18 03/19/17 11:48 DC 03/19/17 11:18 999 MLS/HR Acetaminophen (Tylenol Tab) 1,000 mg NOW STAT PO 03/19/17 11:18 03/19/17 11:20 DC 03/19/17 11:48 1,000 MG Albuterol/ Ipratropium (Duoneb) 3 ml NOW STAT INH 03/19/17 11:29 03/19/17 11:32 DC 03/19/17 11:48 3 ML Methylprednisolone Sodium Succinate (Solu-Medrol IV) 125 mg NOW STAT IV 03/19/17 11:29 03/19/17 11:32 DC 03/19/17 11:48 125 MG Hydromorphone HCl (Dilaudid Inj) 0.5 mg Q15M PRN IV 03/19/17 11:30 03/19/17 16:42 DC 03/19/17 14:01 0.5 MG Levofloxacin (Levaquin / D5W) 750 mg NOW STAT IV 03/19/17 12:00 03/19/17 12:03 DC 03/19/17 12:10 750 MG Sodium Chloride 1,000 ml @ 999 mls/hr Q1H1M STAT IV 03/19/17 12:00 03/19/17 13:00 DC 03/19/17 12:00 999 MLS/HR Vancomycin HCl 1500 mg/Sodium Chloride 530 ml @ 200 mls/hr ONE STAT IV 03/19/17 12:02 03/19/17 14:40 DC 03/19/17 12:02 200 MLS/HR Cefepime HCl 1000 mg/Syringe 11 ml @ 5.5 mls/min NOW ONCE IV 03/19/17 12:30 03/19/17 12:31 DC 03/19/17 12:30 5.5 MLS/MIN ECG Indication: back/shoulder pain Rate (beats per minute): 107 Rhythm: sinus tachycardia Findings: no acute ischemic change, no ectopy ED Course 1118: Tylenol Tab 1000 mg PO, Sodium Chloride 500 ml @ 999 mls/hr IV, Sodium Chloride 1000 ml @ 125 mls/hr IV. 1126: The patient was evaluated in room C6. A complete history and physical exam was performed. 1129: Solu-Medrol IV 125 mg IV, Duoneb 3 ml INH. 1130: Dilaudid Inj 0.5 mg IV. 1200: Sodium Chloride 1000 ml @ 999 mls/hr IV, Levofloxacin 750 mg IV. 1202: Vancomycin HCl 1500 mg/Sodium Chloride 530 ml @ 200 mls/hr IV. 1221: I updated the patient on her test results. She is willing to admission. 1230: Cefepime HCl 1000 mg/Syringe 11 ml @ 5.5 mls/min Protocol IV. 1231: Discussed the patient's case with Dr. Rosa. The patient will be evaluated for further treatment and disposition. 1257: Sodium Chloride 1000 ml @ 999 mls/hr IV. Medical Decision Triage Nursing notes reviewed. The patient's presentation and history were concerning for respiratory issues and chest pain Etiologies such as pneumonia, sepsis, COPD, cardiac ischemia, aortic dissection , pulmonary embolism, pneumothorax, musculoskeletal, infections, gastrointestinal, as well as others were entertained. The patient was evaluated. She had mild tachycardia and fever. The patient is chronically on oxygen. She was concerned that she may be developing shingles but there were no shingles on examination. The patient was given Tylenol. She was hydrated. She is given a DuoNeb and solu Medrol. Her blood work revealed a significant leukocytosis and elevation of serum lactate. Chest x-ray was concerning for a new right-sided infiltrate. The patient has findings concerning for sepsis. Remainder of her blood workers unremarkable. The patient was given additional IV fluid boluses as she had some mildly low blood pressure. She was treated with IV Dilaudid for pain. She was also given IV Levaquin, IV cefepime, and IV vancomycin to cover for healthcare acquired infection. The patient was reassessed and only and was doing better. Consultation was made with internal medicine. The patient was evaluated in the Emergency Room for further management. Blood Pressure Screening Patient's blood pressure: Elevated blood pressure Blood pressure disposition: Referred to PCP (to hospitalist) Consults Time Called: 1227 Consulting Physician: Dr. Jason KIM Returned Call: 1231 Discussed the patient's case. The patient will be evaluated for further treatment and disposition. Impression Primary Impression: Sepsis Additional Impression: Pneumonia Critical Care I have personally spent greater than 30 minutes of critical care time in the direct management of this patient. This includes bedside care, interpretation of diagnostic studies, and testing, discussion with consultants, patient, and family members, and other required patient management activities. This 30 minutes is in excess of all separately billable procedures. Scribe Attestation The scribe's documentation has been prepared under my direction and personally reviewed by me in its entirety. I confirm that the note above accurately reflects all work, treatment, procedures, and medical decision making performed by me. Departure Information Dispostion Being Evaluated By Hospitalist Referrals August Esposito MD (PCP) Patient Instructions [facility] Problem Qualifiers
--- NOTE | 2017-03-19 18:45 | Pulmonary Consultation ---
History General Date of Service: Mar 19, 2017. Stated Complaint: Pneumonia with respiratory insufficiency HPI The patient is a 61 year old female who presents to [facility] with complaints of Pneumonia,Respiratory Failure. The patient's primary care provider is August Esposito MD. Patient is a 59-year-old female who is being admitted for pneumonia with respiratory insufficiency was recently discharged 03/12/2017 for similar diagnoses. Patient has a longstanding history of alpha-1 antitrypsin deficiency severe obstructive ventilatory disease currently on replacement therapy. She has been progressively getting worse over the last 3-4 weeks cough , shortness of breath and left hemithorax posterior midclavicular line discomfort/pain interrupting her breathing cycle. She currently has also had subjective fevers but denies: Fever productive cough, rhinitis, sinusitis, classic pleurisy, classic cardiac chest pain, unintentional weight loss or hemoptysis. Work-up WBC: 21K (Neutro #: 19.36>>) PLT: 135K ALB: 2.5 Co2: 30--25 CXR: Newly noted right lower airspace opacification CTA: No PE, patchy airspace opacification of the right mid to lower lung zone , emphysema, mediastinal and right hilar lymphadenopathy Medications 1. Lovenox 40 milligram subcu 2. Levofloxacin 750 milligrams IV q.day 3. Pantoprazole 40 milligrams daily 4. Daliresp 500 micrograms daily 5. Spiriva 1 puff daily 6. Vancomycin 125 milligrams Q 18 7. Ranitidine 150 milligrams b.i.d. 8. Methylprednisolone 125 milligrams Q 8 hours IV 9. Brovana 15 micrograms b.i.d. 10. Cefepime 2 grams IV q.8 hours 11. Xopenex/Atrovent nebulizer q.6 hours Pulmonary function studies 06/25/2015 FEV1/FVC: 57 FEV1: 1.01/45% FVC: 1.79/65% T.84/130% VC: 1.89/69% RV: 3.95/234% DLCO: 32% DLCO/VA: 69% Microbiology Bronchial washing 05/26/2011: Mycobacterium avium, Tomasa albicans (right lower lobe) Bronchial washing 10/11/2011: Tomasa albicans (right lower lobe) Bronchial washing 09/17/2014: Aspergillus fumigatus (right lower lobe) Bronchial washing 01/07/2015: Tomasa albicans Bronchial washing 04/04/2015: Tomasa albicans (right lower lobe) Bronchial washing 05/20/2015: Yeast (right lower lobe) Active Problems 1. AAT ([id number]) deficiency 2. Aspergillosis, with pneumonia 3. Cellulitis of leg 4. Cervical myopathy 5. Chronic obstructive pulmonary disease (FEV1: 45%) 6. Chronic respiratory failure (J96.10) 7. Chronic rhinitis (J31.0) 8. Cough (R05) 9. DDD (degenerative disc disease) 10. Degeneration, intervertebral disc, thoracic (M51.34) 11. Dependence on supplemental oxygen (Z99.81) 12. Depression (F32.9) 13. Diabetes mellitus (E11.9) 14. Edema leg (R60.0) 15. Esophageal reflux (K21.9) 16. Hiatal hernia (K44.9) 17. Hypertension (I10) 18. Hypoxemia (R09.02) 19. Lymphadenopathy (R59.1) 20. Lymphoma (C85.90) 21. Osteoarthritis 22. Osteoarthrosis (M19.90) 23. Pain Syndromes 24. Proteinuria (R80.9) 25. Shortness of breath (R06.02) 26. Wheezing (R06.2) Surgical History . History of Back Surgery 2. History of Hysterectomy 3. History of Shoulder Surgery Family History . Family history of malignant neoplasm of kidney 2. Family history of diabetes mellitus 3. Family history of emphysema 4. Family history of leukemia Social History Former smoker No alcohol use Current Meds 1. ProAir RespiClick 108 (90 Base) MCG/ACT Inhalation Aerosol Powder Breath Activated; 2. Spiriva Respimat 2.5 MCG/ACT Inhalation Aerosol Solution; INHALE 2 PUFFS ONCE 3. Morphine Sulfate (Concentrate) 20 MG/ML Oral Solution; TAKE 5MG (1/4ML) - 10mg 4. Potassium Chloride ER 20 MEQ Oral Tablet Extended Release; Take 1 tablet daily 5. Budesonide 0.25 MG/2ML Inhalation Suspension; USE 1 UNIT DOSE VIA NEBULIZER 6. Daliresp 500 MCG Oral Tablet; TAKE 1 TABLET DAILY; 8. Breo Ellipta 200-25 MCG/INH Inhalation Aerosol Powder Breath Activated; INHALE 1 9. Calcium + D TABS; TAKE 1 TABLET DAILY; 10. CeleXA 20 MG Oral Tablet; TAKE 1 TABLET DAILY 11. Ibuprofen 600 MG Oral Tablet; TAKE 1 TABLET 4 TIMES DAILY WITH MEALS 12. MiraLax Oral Packet; MIX 1 PACKET IN 8 OUNCES OF LIQUID AND DRINK ONCE DAILY 13. MS Contin 15 MG Oral Tablet Extended Release; Take 1 tablet BID (Q 12 hours) ; 14. MS Contin 30 MG Oral Tablet Extended Release; Take 1 tablet twice daily; 15. Mucinex 600 MG Oral Tablet Extended Release 12 Hour; TAKE 1 OR 2 TABLETS TWICE 16. Oxygen; 3 LPM as rest and 4 LPM with activity 22/11 17. Protonix 40 MG Oral Tablet Delayed Release; TAKE 1 TABLET DAILY; 18. Vitamin B-12 100 MCG Oral Tablet; TAKE 1 TABLET DAILY DIRECTED; 19. Vitamin D 1000 UNIT Oral Tablet; TAKE 1 TABLET DAILY 20. Zantac 300 MG Oral Tablet; TAKE 1 TABLET DAILY DIRECTED Allergies 1. Bactrim TABS Historian: patient, EMS Review of Systems Constitutional: reports: weakness Eyes: reports: no symptoms ENT: reports: no symptoms Cardiovascular: reports: as stated in HPI Respiratory: reports: as stated in HPI Gastrointestinal: reports: no symptoms Genitourinary - Female: reports: no symptoms Musculoskeletal: reports: as stated in HPI Integumentary: reports: no symptoms Neurologic: reports: no symptoms Psychiatric: reports: no symptoms Endocrine: no symptoms Hematologic / Lymphatic: no symptoms Allergic / Immunologic: no symptoms Past Medical History Past Medical History: Please refer to HPI Past Medical History: cancer - lymphoma, chemotherapy, COPD, depression, lung disease, pneumonia, other Past Surgical History: Please refer to HPI Past Surgical History: hysterectomy Family History Cancer Diabetes mellitus FATHER Lung disease FATHER BROTHER Please refer to HPI Social History Please refer to HPI Hx Tobacco Use In Past Year?: No Smoking Status: Never Smoker Alcohol: never Drug Use: none Marital status: Housing status: lives with family Occupational Status: disabled Immunizations History of Influenza Vaccine: Yes Influenza Vaccine Date: Jan 24, 2014 History of Tetanus Vaccine?: Yes History of Pneumococcal: Yes Pneumococcal Date: May 16, 2005 History of Hepatitis B Vaccine: Yes History of MDRO History of MDRO: No Allergies Coded Allergies: Sulfamethoxazole w/Trimethoprim (Verified Allergy, Unknown, RASH, 03/19/17 ) Current Medications Reported Home Medications Medications Dose Route/Sig Max Daily Dose Days Date Category Dose Instructions Proventil 0.083% 2.5MG/3ML (Albuterol Sulf) 2.5 Mg/3 Ml Nebu 2.5 Mg INH QID PRN 03/19/17 Reported Prednisone 5 Mg Tab 5 Mg PO UD 03/12/17 Rx 40mg([id number]), 35mg(2vsmzd1atsg), 30mg(8qhmw9pfkl), 25mg(7tlat7fhex), 20mg(5lget8dopj), [id number], [id number], [id number] Acetylcysteine 600 Mg Cap 600 Mg PO BID 03/12/17 Rx Ventolin Hfa (Albuterol) 200 Puffs/40124 Mcg Aers 2 Puffs INH Q4 PRN 03/06/17 Reported Brovana (Arformoterol Tartrate) 15 Mcg/2 Ml Neb 15 Mcg INH BID 03/06/17 Reported Guaifenesin Er (Guaifenesin) 600 Mg Tabcr 600 Mg PO Q12H PRN 03/06/17 Reported Vitamin D3 (Cholecalciferol) 1,000 Unit Tab 1 Tab PO DAILY 90 03/06/17 Reported Micro-K Ext Rel (Potassium Chloride) 10 Meq Capcr 20 Meq PO QAM 03/06/17 Reported Basaglar Kwikpen (Insulin Glargine) 100 Unit/Ml Inj 12 Units SC BID 03/06/17 Reported Morphine Sulfate 10 Mg/0.5 Ml Soln 5-10 Mg PO Q4 PRN 03/06/17 Reported Metformin HCl 500 Mg Tab 500 Mg PO BID 03/06/17 Reported Morphine Sulfate Er (Morphine Sulfate) 30 Mg Tab 30 Mg PO BID 03/06/17 Reported Levalbuterol HCl (Levalbuterol) 1.25 Mg/3 Ml Nebu 3 Ml NEB TID PRN 03/15/16 Reported Breo Ellipta (Fluticasone Furoate-Vilanterol) 1 Inh Inh 1 Puff INH DAILY 03/15/16 Reported Pantoprazole Sodium (Pantoprazole) 40 Mg Tab 40 Mg PO DAILY 03/15/16 Reported Celexa (Citalopram Hydrobromide) 40 Mg Tab 40 Mg PO DAILY 03/15/16 Reported Novolog (Insulin Aspart) 100 Units/Ml Inj 5 Units SQ TIDM PRN 03/15/16 Reported B-12 (Cyanocobalamin) 1,000 Mcg Tab 1,000 Mcg PO QAM 03/15/16 Reported Ipratropium [place] 0.5 Mg/2.5 Ml Nebu 1 Vial NEB QID 30 10/14/15 Reported Daliresp (Roflumilast) 500 Mcg Tab 500 Mcg PO QAM 10/14/15 Reported Spiriva Handihaler (Tiotropium [place]) 5 Puff/90 Mcg Aerp 1 Puff INH QAM 30 09/09/15 Rx Miralax (Polyethylene Glycol 3350) 1 Pow Pow 17 Gm PO DAILY PRN 04/01/15 Reported Zantac (Ranitidine HCl) 300 Mg Tab 300 Mg PO BID 06/26/14 Reported Oxygen Gas 5-6 Liter NA CONTINOUS 10/04/11 Reported Os-Oliverio 500 Plus D (Calcium/Vitamin D) Tab 1 Tab PO QAM 10/28/10 Reported Physical Physical Exam Vital Signs: Date Time Temp Pulse Resp B/P (MAP) Pulse Ox O2 Delivery O2 Flow Rate FiO2 03/19/17 15:49 81 18 97 Nasal Cannula 4.0 03/19/17 14:47 37.1 92 28 141/78 94 Nasal Cannula 5.0 03/19/17 13:57 92 16 126/64 93 03/19/17 13:46 92 17 122/60 94 Nasal Cannula 5.0 03/19/17 13:20 97 03/19/17 13:13 99 22 122/60 95 Nasal Cannula 5.0 03/19/17 12:48 108 24 108/54 91 Nasal Cannula 5.0 03/19/17 11:54 99 22 95/40 92 Nasal Cannula 4.0 03/19/17 10:57 106 03/19/17 10:56 Nasal Cannula 4.0 03/19/17 10:41 91 Nasal Cannula 5.0 03/19/17 10:36 38.5 116 26 154/74 91 Nasal Cannula 5.0 General Appearance: mild distress Head: NORMOCEPHALIC, ATRAUMATIC Eyes: PERRLA, NO DISCHARGE, EOMI, SCLERAE NORMAL ENT: other (Notable cold also shows around the oropharynx) Neck: NORMAL RANGE OF MOTION, NO TENDERNESS, TRACHEA MIDLINE, NO STRIDOR Respiratory: other (Decreased breath sounds bilaterally) Cardiovasular: REGULAR RATE/RHYTHM, NORMAL S1S2, NO M/G/R, NO MURMUR, NO GALLOP Abdomen: NON TENDER, NORMAL BOWEL SOUNDS, NO REBOUND, NO MASSES, NO GUARDING, NO ORGANOMEGALY Genitourinary - Female: EXTERNAL GENITALIA NORMAL Back: NORMAL INSPECTION, NO MIDLINE TENDERNESS, NO CVA TENDERNESS, NO PARAVERTEBRAL TTP Upper Extremities: NO EDEMA, NO DEFORMITY, NORMAL ROM Lower Extremities: other (1+ pitting edema bilaterally lower extremities) Pulses: carotid (R) (1+), carotid (L) (1+), dorsalis pedis (R) (1+), dorsalis pedis (L) (1+) Neuro: ALERT, ORIENTED x 3, NORMAL MOTOR EXAM, NORMAL SENSATION, NORMAL CEREBELLAR EXAM, NORMAL SPEECH Reflexes: biceps (R) (2+), bicpes (L) (2+), patellar (R) (2+), patellar (L) (2+ ) Babinski Testing: right (downgoing), left (downgoing) Psychiatric: NORMAL AFFECT, NO SUICIDAL IDEATION, anxious Diagnostics Labs Results Past 24 Hours Test 03/19/17 11:12 03/19/17 11:43 03/19/17 11:55 03/19/17 15:23 Range/Units White Blood Count 21.26 4.8-10.8 K/uL Red Blood Count 3.64 4.2-5.4 M/uL Hemoglobin 10.3 12.0-16.0 g/dL Hematocrit 32.5 37-47 % Mean Corpuscular Volume 89.3 80-100 fL Mean Corpuscular Hemoglobin 28.3 25-34 pg Mean Corpuscular Hemoglobin Concent 31.7 32-36 g/dl Platelet Count 135 130-400 K/uL Mean Platelet Volume 9.3 7.4-10.4 fL Neutrophils (%) (Auto) 90.6 % Lymphocytes (%) (Auto) 2.7 % Monocytes (%) (Auto) 6.2 % Eosinophils (%) (Auto) 0.2 % Basophils (%) (Auto) 0.1 % Neutrophils # (Auto) 19.26 1.4-6.5 K/uL Lymphocytes # (Auto) 0.57 1.2-3.4 K/uL Monocytes # (Auto) 1.31 0.11-0.59 K/uL Eosinophils # (Auto) 0.05 0-0.5 K/uL Basophils # (Auto) 0.02 0-0.2 K/uL RDW Standard Deviation 43.2 36.4-46.3 fL RDW Coefficient of Variation 13.2 11.5-14.5 % Immature Granulocyte % (Auto) 0.2 % Immature Granulocyte # (Auto) 0.05 0.00-0.02 K/uL Red Blood Cell Morphology Unremarkable Prothrombin Time 10.5 9.0-12.0 SECONDS Prothromb Time International Ratio 1.0 0.9-1.1 Activated Partial Thromboplast Time 37.3 21.0-31.0 SECONDS Partial Thromboplastin Ratio 1.4 Sodium Level 140 138 136-145 mmol/L Potassium Level 3.5 3.8 3.5-5.1 mmol/L Chloride Level 103 107 98-107 mmol/L Carbon Dioxide Level 30 25 21-32 mmol/L Anion Gap 7.0 6.0 3-11 mmol/L Blood Urea Nitrogen 14 12 7-18 mg/dl Creatinine 1.02 0.99 0.60-1.20 mg/dl Estimated GFR () 68.3 70.8 Estimated GFR (Non- 58.9 61.1 BUN/Creatinine Ratio 13.2 12.0 10-20 Random Glucose 135 191 70-99 mg/dl Calcium Level 8.3 7.3 8.5-10.1 mg/dl Magnesium Level 1.4 1.7 1.8-2.4 mg/dl Total Bilirubin 0.5 0.8 0.2-1 mg/dl Direct Bilirubin 0.2 0-0.2 mg/dl Aspartate Amino Transf (AST/SGOT) 23 23 15-37 U/L Alanine Aminotransferase (ALT/SGPT) 25 25 12-78 U/L Alkaline Phosphatase 102 83 45-117 U/L Total Creatine Kinase 64 26-192 U/L Creatine Kinase MB 1.0 0.5-3.6 ng/ml Creatine Kinase MB Ratio 1.6 0-3.0 Troponin I < 0.015 0-0.045 ng/ml Total Protein 6.0 5.6 6.4-8.2 gm/dl Albumin 2.9 2.5 3.4-5.0 gm/dl Lipase 446 73-393 U/L Thyroid Stimulating Hormone (TSH) 0.448 0.300-4.500 uIu/ml Bedside Lactic Acid Venous 2.08 0.90-1.70 mmol/L Urine Color DK YELLOW Urine Appearance CLEAR CLEAR Urine pH >= 9.0 4.5-7.5 Urine Specific Mchenry 1.023 1.000-1.030 Urine Protein NEG NEG Urine Glucose (UA) NEG NEG Urine Ketones TRACE NEG Urine Occult Blood NEG NEG Urine Nitrite NEG NEG Urine Bilirubin NEG NEG Urine Urobilinogen NEG NEG Urine Leukocyte Esterase SMALL NEG Urine WBC (Auto) 1-5 0-5 /hpf Urine RBC (Auto) 5-10 0-4 /hpf Urine Hyaline Casts (Auto) 1-5 0-5 /lpf Urine Epithelial Cells (Auto) >30 0-5 /lpf Urine Bacteria (Auto) NEG NEG Influenza Type A Antigen Neg for Influ A NEG Influenza Type B Antigen Neg for Influ B NEG Est Creatinine Clear Calc Drug Dose 59.6 ml/min Lactic Acid Level 3.0 0.4-2.0 mmol/L Globulin 3.1 2.5-4.0 gm/dl Albumin/Globulin Ratio 0.8 0.9-2 Test 03/19/17 15:27 03/19/17 17:15 03/19/17 17:45 03/19/17 18:27 Range/Units Bedside Glucose 188 70-90 mg/dl Microbiology Results 03/19/17 Blood Culture, Received Pending 03/19/17 Blood Culture, Received Pending 03/19/17 Urine Culture, Received Pending Diagnostic Radiology Please refer to HPI EKG Please refer to HPI Impression Assessment and Plan 61-year-old female admitted for acute on chronic respiratory failure: 1. Respiratory Failure: Patient has severe obstructive ventilatory disease secondary to alpha 1 antitrypsin deficiency. She currently is getting weekly replacements. At this time she does appear to be tachypneic and pending respiratory insufficiency and will initiate the patient on BiPAP therapy. I will also decrease her overall steroid dose to 40 milligrams p.o. daily starting tomorrow. 2. Id: Patient does have notable leukocytosis with associated right lower lobe infiltrate. Patient was recently admitted to the hospital in treated with cefepime and Levaquin. Legionella urine antigen as well as mycoplasma antibodies Aspergillus antibodies and BD leak can serum studies were sent off. At this time mycoplasma studies are pending. The patient is currently being treated with levofloxacin 750 mg, vancomycin and cefepime. I do agree with the current antibiotics but will perform nasal swab in F MRSA nasal swab is negative will discontinue vancomycin. Also suggest as the patient has moved grown out Aspergillus on multiple occasions from right lower lobe which is consistent with the current chest x-ray I will send off for galactomannan which has a higher sensitivity and specificity for invasive aspergillosis than the previous serum studies. I will also initiate the patient on voriconazole at this time and discontinue if the galactomannan comes back negative. 3. Alpha 1 antitrypsin: Patient is to continue on her weekly infusion. 4. Back pain: Patient's back pain does seem to be consistent with musculoskeletal discomfort. He even muscle spasm on the intercostal muscles. Will give 1 dose of muscle relaxant for evaluation. Thank you for this consultation Advanced Directives Living Will: attached to the chart
[2017-03-19] MEDS: DORNASE ALFA (2500U) 2.5MG/2.5ML INH SCH (18:57)
[2017-03-19] MEDS: ARFORMOTEROL TART 15MCG/2ML VIAL INH SCH (18:57)
[2017-03-19 18:58] VITALS: PULSE 81; O2SAT 89
[2017-03-19] MEDS: CEFEPIME IV 2,000 MG in SYRINGE 7.5 ML IV SCH (19:10)
[2017-03-19 19:26] VITALS: PULSE 84; O2SAT 99
--- NOTE | 2017-03-19 19:31 | Medical Consult ---
Consultation Date of Consultation: Mar 19, 2017. Attending Physician: Sal Womack MD Reason for Consultation: Pneumonia, antibiotic recommendations History of Present Illness 61-year-old female with history of alpha 1 antitrypsin deficiency with associated severe COPD, on replacement therapy, as well as diabetes mellitus, who was recently hospitalized for exacerbation of COPD. She was discharged but soon developed progressively worsening shortness of breath and cough over last week, associated with feeling feverish with chills. No chest pain. Was found to have evidence of new infiltrate on chest x-ray, and was admitted for further management. Currently being treated with vancomycin and cefepime. Cultures are pending. previously had NIKITA and Aspergillus cultured out of respiratory secretions. Past Medical/Surgical History Medical Problems: (1) COPD exacerbation Status: Acute (2) Febrile illness Status: Acute (3) Hypoxia Status: Acute (4) Respiratory failure Status: Acute (5) Sepsis Status: Acute (6) Tachycardia Status: Acute Medical Problems: (1) Ytocb-0-iiqmyevaomc deficiency (2) COPD (chronic obstructive pulmonary disease) (3) Depression (4) Diabetes type 2, controlled (5) GERD (gastroesophageal reflux disease) (6) H/O lymphoma (7) H/o PE (8) Pneumonia (9) Respiratory failure (10) Respiratory failure, acute Surgical Problems: (1) History of back surgery (2) History of bronchoscopy (3) S/P SORAIDA (total abdominal hysterectomy) Family History Cancer Diabetes mellitus FATHER Lung disease FATHER BROTHER Social History Smoking Status: Never Smoker Drug Use: none Marital Status: Housing Status: lives with family Occupation Status: disabled Allergies Coded Allergies: Sulfamethoxazole w/Trimethoprim (Verified Allergy, Unknown, RASH, 03/19/17 ) Current Inpatient Medications Current Inpatient Medications Medications (Trade) Dose Ordered Sig/Aram Route Start Time Stop Time Status Last Admin Dose Admin Miscellaneous Information (Consult Glycemic Management Pharmacy) 1 ea UD N/A 03/19/17 13:10 04/18/17 13:09 Ipratropium [place] (Atrovent 0.02% 0.5MG/2.5ML Neb) 0.5 mg Q6R INH 03/19/17 15:00 04/18/17 14:59 03/19/17 15:40 0.5 MG Levalbuterol (Xopenex 1.25MG/ 0.5ML Neb) 1.25 mg Q6R INH 03/19/17 15:00 04/18/17 14:59 03/19/17 15:40 1.25 MG Levofloxacin 750 mg/Prmx 150 ml @ 100 mls/hr Q24H IV 03/20/17 11:00 03/26/17 10:59 Vancomycin HCl 1250 mg/Sodium Chloride 275 ml @ 125 mls/hr Q18H IV 03/20/17 02:00 03/26/17 23:58 Glucose (Glucose 40% Gel) 15-30 GRAMS 15 GRAMS... UD PRN PO 03/19/17 13:30 04/18/17 13:29 Glucose (Glucose Chew Tab) 4-8 Tablets 4 Tabl... UD PRN PO 03/19/17 13:30 04/18/17 13:29 Dextrose (Dextrose 50% 50ML Syringe) 25-50ML OF 50% DW IV FOR... UD PRN IV 03/19/17 13:30 04/18/17 13:29 Glucagon (Glucagon Inj) 1 mg UD PRN SQ 03/19/17 13:30 04/18/17 13:29 Ioversol (Optiray 320) 125 ml UD PRN IV 03/19/17 13:30 03/23/17 13:29 Insulin Glargine (Lantus Solostar Pen) 19 units BID SC 03/19/17 21:00 04/18/17 20:59 Insulin Aspart (novoLOG ASPART) SLIDING SCALE ACHS SC 03/19/17 16:00 04/18/17 15:59 03/19/17 17:10 13 UNITS Arformoterol Tartrate (Brovana 15MCG/ 2ML Neb Soln) 15 mcg BIDR INH 03/19/17 20:00 04/18/17 19:59 03/19/17 18:57 15 MCG Calcium/Vitamin D (Caltrate Plus Tab) 1 tab QAM PO 03/20/17 09:00 04/19/17 08:59 Citalopram Hydrobromide (celeXA TAB) 40 mg DAILY PO 03/20/17 09:00 04/19/17 08:59 Morphine Sulfate (Roxanol Oral Soln) 5 mg Q4 PRN PO 03/19/17 13:45 04/02/17 13:44 03/19/17 17:11 5 MG Pantoprazole Sodium (Protonix Tab) 40 mg DAILY PO 03/20/17 09:00 04/19/17 08:59 Roflumilast (Daliresp Tab) 500 mcg QAM PO 03/20/17 09:00 04/19/17 08:59 Cyanocobalamin (Vitamin B-12 Tab) 1,000 mcg QAM PO 03/20/17 09:00 04/19/17 08:59 Ranitidine HCl (zANTac TAB) 150 mg BID PO 03/19/17 21:00 04/18/17 20:59 Polyethylene (Miralax Powder Packet) 17 gm DAILY PRN PO 03/19/17 13:45 04/18/17 13:44 Vancomycin HCl (Consult) 1 ea UD PRN N/A 03/19/17 14:00 04/18/17 13:59 Cefepime HCl 2000 mg/Syringe 20 ml @ 5 mls/min Q8H IV 03/19/17 18:00 03/26/17 17:59 03/19/17 19:10 5 MLS/MIN Enoxaparin Sodium (Lovenox Inj) 40 mg Q24H SQ 03/20/17 17:00 04/19/17 16:59 Dornase Venkat (Pulmozyme Inhalation Soln 2.5ml Amp) 2.5 ml BIDR INH 03/19/17 20:00 04/18/17 19:59 03/19/17 18:57 2.5 ML Voriconazole (Vfend Tab) 200 mg BID PO 03/19/17 21:00 03/26/17 20:59 UNV Prednisone (PredniSONE TAB) 40 mg ONE PO 03/19/17 19:00 04/18/17 18:59 UNV Cyclobenzaprine HCl (Flexeril Tab) 5 mg ONE ONCE PO 03/19/17 19:00 03/19/17 19:01 UNV Review of Systems All systems were reviewed and are negative except as per HPI Physical Exam Date Time Temp Pulse Resp B/P (MAP) Pulse Ox O2 Delivery O2 Flow Rate FiO2 03/19/17 18:58 81 18 89 Nasal Cannula 3.0 03/19/17 15:49 81 18 97 Nasal Cannula 4.0 03/19/17 14:47 37.1 92 28 141/78 94 Nasal Cannula 5.0 03/19/17 13:57 92 16 126/64 93 03/19/17 13:46 92 17 122/60 94 Nasal Cannula 5.0 03/19/17 13:20 97 03/19/17 13:13 99 22 122/60 95 Nasal Cannula 5.0 03/19/17 12:48 108 24 108/54 91 Nasal Cannula 5.0 03/19/17 11:54 99 22 95/40 92 Nasal Cannula 4.0 03/19/17 10:57 106 03/19/17 10:56 Nasal Cannula 4.0 03/19/17 10:41 91 Nasal Cannula 5.0 03/19/17 10:36 38.5 116 26 154/74 91 Nasal Cannula 5.0 General Appearance: WD/WN, no apparent distress Head: normocephalic, atraumatic Eyes: normal inspection, EOMI, sclerae normal ENT: normal ENT inspection, pharynx normal Neck: supple, no adenopathy, thyroid normal, trachea midline Respiratory/Chest: chest non-tender, no respiratory distress, no accessory muscle use, + decreased breath sounds Cardiovascular: regular rate, rhythm, no gallop, no murmur Abdomen/GI: normal bowel sounds, non tender, soft, no organomegaly Back: normal inspection, no CVA tenderness Extremities/Musculoskelatal: no calf tenderness, non-tender Neurologic/Psych: alert, oriented x 3 Skin: normal color, warm/dry, no rash Lymphatic: no adenopathy Laboratory Results Date/Time Source Procedure Growth Status 03/19/17 11:40 Blood Blood Culture Pending Received 03/19/17 11:12 Blood Blood Culture Pending Received 03/19/17 11:55 Urine , Clean Catch Urine Culture Pending Received Last 24 Hours Test 03/19/17 11:12 03/19/17 11:43 03/19/17 11:55 03/19/17 15:23 White Blood Count 21.26 K/uL Red Blood Count 3.64 M/uL Hemoglobin 10.3 g/dL Hematocrit 32.5 % Mean Corpuscular Volume 89.3 fL Mean Corpuscular Hemoglobin 28.3 pg Mean Corpuscular Hemoglobin Concent 31.7 g/dl Platelet Count 135 K/uL Mean Platelet Volume 9.3 fL Neutrophils (%) (Auto) 90.6 % Lymphocytes (%) (Auto) 2.7 % Monocytes (%) (Auto) 6.2 % Eosinophils (%) (Auto) 0.2 % Basophils (%) (Auto) 0.1 % Neutrophils # (Auto) 19.26 K/uL Lymphocytes # (Auto) 0.57 K/uL Monocytes # (Auto) 1.31 K/uL Eosinophils # (Auto) 0.05 K/uL Basophils # (Auto) 0.02 K/uL RDW Standard Deviation 43.2 fL RDW Coefficient of Variation 13.2 % Immature Granulocyte % (Auto) 0.2 % Immature Granulocyte # (Auto) 0.05 K/uL Red Blood Cell Morphology Unremarkable Prothrombin Time 10.5 SECONDS Prothromb Time International Ratio 1.0 Activated Partial Thromboplast Time 37.3 SECONDS Partial Thromboplastin Ratio 1.4 Sodium Level 140 mmol/L 138 mmol/L Potassium Level 3.5 mmol/L 3.8 mmol/L Chloride Level 103 mmol/L 107 mmol/L Carbon Dioxide Level 30 mmol/L 25 mmol/L Anion Gap 7.0 mmol/L 6.0 mmol/L Blood Urea Nitrogen 14 mg/dl 12 mg/dl Creatinine 1.02 mg/dl 0.99 mg/dl Estimated GFR () 68.3 70.8 Estimated GFR (Non- 58.9 61.1 BUN/Creatinine Ratio 13.2 12.0 Random Glucose 135 mg/dl 191 mg/dl Calcium Level 8.3 mg/dl 7.3 mg/dl Magnesium Level 1.4 mg/dl 1.7 mg/dl Total Bilirubin 0.5 mg/dl 0.8 mg/dl Direct Bilirubin 0.2 mg/dl Aspartate Amino Transf (AST/SGOT) 23 U/L 23 U/L Alanine Aminotransferase (ALT/SGPT) 25 U/L 25 U/L Alkaline Phosphatase 102 U/L 83 U/L Total Creatine Kinase 64 U/L Creatine Kinase MB 1.0 ng/ml Creatine Kinase MB Ratio 1.6 Troponin I < 0.015 ng/ml Total Protein 6.0 gm/dl 5.6 gm/dl Albumin 2.9 gm/dl 2.5 gm/dl Lipase 446 U/L Thyroid Stimulating Hormone (TSH) 0.448 uIu/ml Bedside Lactic Acid Venous 2.08 mmol/L Urine Color DK YELLOW Urine Appearance CLEAR Urine pH >= 9.0 Urine Specific [place] 1.023 Urine Protein NEG Urine Glucose (UA) NEG Urine Ketones TRACE Urine Occult Blood NEG Urine Nitrite NEG Urine Bilirubin NEG Urine Urobilinogen NEG Urine Leukocyte Esterase SMALL Urine WBC (Auto) 1-5 /hpf Urine RBC (Auto) 5-10 /hpf Urine Hyaline Casts (Auto) 1-5 /lpf Urine Epithelial Cells (Auto) >30 /lpf Urine Bacteria (Auto) NEG Influenza Type A Antigen Neg for Influ A Influenza Type B Antigen Neg for Influ B Est Creatinine Clear Calc Drug Dose 59.6 ml/min Lactic Acid Level 3.0 mmol/L Globulin 3.1 gm/dl Albumin/Globulin Ratio 0.8 Test 03/19/17 15:27 03/19/17 17:15 03/19/17 17:45 03/19/17 18:27 Bedside Glucose 188 mg/dl Patient Name: CLAUDE SERRANO Unit Number: [id number] Dictated: 03/19/[id number] Transcribed: 03/19/17 150 [email or web address] Printed Date/Time: [~ rep prt dt]/[~ rep prt tm] [~ rep ct labl] - [~ rep ct ivnm] [facility] [place] [address] Dictated: 03/19/[id number] Transcribed: 03/19/17 150 [email or web address] Printed Date/Time: [~ rep prt dt]/[~ rep prt tm] [~ rep ct labl] - [~ rep ct ivnm] CHEST CTA for PULMONARY ARTERIES CT DOSE: 573.94 mGy.cm HISTORY: acute respiratory distress, rule out PE. TECHNIQUE: Multiaxial CT images of the chest were performed following the intravenous administration of contrast to evaluate the pulmonary arteries. Maximal intensity projection images were also obtained. A dose lowering technique was utilized adhering to the principles of ALARA. COMPARISON STUDY: Chest CTA 03/08/2017. FINDINGS: The visualized liver, spleen, and adrenal glands are unremarkable. Heterogeneous thyroid gland containing a few subcentimeter nodules. Mild mediastinal and right hilar lymphadenopathy. This is slightly progressed. Left subclavian Port-A-Cath terminates in the SVC. The heart is normal in size. No pleural effusions. No pneumothorax. Emphysema. A few scattered calcified granulomas. The left lung is essentially clear. Patchy areas of consolidation within the right mid to lower lung zone which are new from the prior study. This is consistent with a pneumonia. No evidence for an aortic dissection. Suboptimal evaluation of the segmental and subsegmental pulmonary arteries due to the motion artifact. However, no definite filling defects within the pulmonary arteries to suggest possible embolus. IMPRESSION: 1. No definite evidence for pulmonary embolus. 2. Patchy airspace opacities within the right mid to lower lung zone which are new from the prior study. Therefore, this is consistent with a pneumonia. 3. Emphysema. 4. Mild mediastinal and right hilar lymphadenopathy which has slightly progressed. This is likely reactive. Electronically signed by: Emory Umana M.D. 03/19/2017 3:14 PM Dictated Date/Time: 03/19/2017 3:08 PM The status of this report is Signed. Draft = Not yet reviewed or approved by Radiologist. Signed = Reviewed and approved by Radiologist. <AttendingPhy>Sal Womack MD</AttendingPhy> <FamilyPhy>August Esposito MD</FamilyPhy> <PrimaryPhy>August Esposito MD</PrimaryPhy> < UnitNumber>[id number]</UnitNumber> <VisitNumber>[id number]</VisitNumber> < PatientName>CLAUDE SERRANO</PatientName> <DateOfBirth>1955</DateOfBirth> < Location>[facility]</Location> <ServiceDate>03/19/17</ServiceDate> <MNE>ESINDI</MNE> < OrderingPhy>Altaf Gomez M.D.</OrderingPhy> <OrderingPhyMNE>f rep ord dr galdamez</ OrderingPhyMNE> <DictatingPhyMNE>f rep dict dr galdamez</DictatingPhyMNE> <CCListMNE> f rep ct rudolph</CCListMNE> <AdmittingPhyMNE>f pt admit dr galdamez</AdmittingPhyMNE> < AttendingPhyMNE>f pt attend dr galdamez</AttendingPhyMNE> <ConsultingPhyMNE>f pt consult dr galdamez</ConsultingPhyMNE> <FamilyPhyMNE>f pt fam dr galdamez</FamilyPhyMNE> <OtherPhyMNE>f pt other dr galdamez</OtherPhyMNE> < PrimaryPhyMNE>f pt prim care dr galdamez</PrimaryPhyMNE> <ReferringPhyMNE>f pt referring dr galdamez</ReferringPhyMNE> Assessment & Plan 62-year-old female with longstanding COPD with alpha-1 antitrypsin deficiency now with evidence of new pneumonia. Agree with broad-spectrum antibiotic therapy along with voriconazole for possible Aspergillus infection pending further culture and serology results. Will adjust once final culture and serology results are available. Will follow.
[2017-03-19] MEDS: RANITIDINE HCL 150 MG TAB PO SCH (19:50)
[2017-03-19 19:54] VITALS: BP 112/42; PULSE 77; TEMP 36.7; O2SAT 97
[2017-03-19] MEDS ORDERED: METHYLPREDNISOLONE IV 125 MG in SYRINGE 0 ML IV SCH (20:00)
[2017-03-19] MEDS ORDERED: CYCLOBENZAPRINE HCL 5 MG TAB PO ONE (20:00)
[2017-03-19] MEDS: VORICONAZOLE 200 MG TAB PO SCH (20:39)
[2017-03-19] MEDS: INSULIN GLARGINE SOLOSTAR 100 UNITS/ML 3 ML PEN SC SCH (20:42)
[2017-03-19] MEDS ORDERED: INSULIN GLARGINE SOLOSTAR 100 UNITS/ML 3 ML PEN SC SCH (21:00)
[2017-03-19] MEDS: MoRPHine SULFATE CR 15 MG TAB (MS CONTIN) PO SCH (21:38)
[2017-03-19 23:07] VITALS: BP 121/61; PULSE 82; TEMP 36.8; O2SAT 90; O2SAT 96
[2017-03-20] VITALS (7 sets, daily range): BP systolic 125–147; BP diastolic 56–92; PULSE 71–103; TEMP 36.8–37.6; O2SAT 92–97
[2017-03-20] MEDS: CEFEPIME IV 2,000 MG in SYRINGE 7.5 ML IV SCH ×3 (01:49→17:24)
[2017-03-20] MEDS ORDERED: VANCOMYCIN INJ 1,250 MG in SODIUM CHLORIDE 0.9% 250ML 250 ML IV SCH (02:00)
[2017-03-20] MEDS: MoRPHine SULFATE 5 MG/0.25 ML UDP PO PRN ×4 (04:37→23:49)
[2017-03-20 04:49] LABS: MEAN CELL VOLUME 88.2 fL (80-100); MEAN CORPUSCULAR HEMOGLOBIN 28.2 pg (25-34); MEAN PLATELET VOLUME 9.6 fL (7.4-10.4); PLATELET COUNT 143 K/uL (130-400); WHITE BLOOD COUNT 21.81 K/uL (4.8-10.8)
[2017-03-20 05:18] LABS: CALCIUM 8.1 mg/dl (8.5-10.1); CREATININE 1.03 mg/dl (0.60-1.20); MAGNESIUM 2.2 mg/dl (1.8-2.4); POTASSIUM 4.4 mmol/L (3.5-5.1)
[2017-03-20 05:25] LABS: BASO % 0.1 %; BASO ABS # 0.02 K/uL (0-0.2); COMPLETE YES; IG% 0.5 %; LYMPH % 1.9 %; LYMPH ABS # 0.41 K/uL (1.2-3.4); MONO % 2.3 %; NEUT % 95.2 %
[2017-03-20 05:26] LABS: ALB/GLOB RATIO 0.8 (0.9-2)
[2017-03-20] MEDS: ARFORMOTEROL TART 15MCG/2ML VIAL INH SCH ×2 (07:01→19:06)
[2017-03-20] MEDS: LEVALBUTEROL 1.25MG/0.5ML NEB INH SCH ×3 (07:01→19:06)
[2017-03-20] MEDS: IPRATROPIUM BROMIDE NEB SOLN 0.02% 2.5 ML VIAL INH SCH ×3 (07:01→19:06)
[2017-03-20] MEDS: DORNASE ALFA (2500U) 2.5MG/2.5ML INH SCH ×2 (07:01→19:06)
[2017-03-20] MEDS: PANTOprazole SOD 40 MG TAB PO SCH (07:36)
[2017-03-20] MEDS: ROFLUMILAST 500 MCG TAB PO SCH (07:36)
[2017-03-20] MEDS: VORICONAZOLE 200 MG TAB PO SCH ×2 (07:36→20:36)
[2017-03-20] MEDS: CITALOPRAM 40 MG TAB PO SCH (07:36)
[2017-03-20] MEDS: RANITIDINE HCL 150 MG TAB PO SCH ×2 (07:36→20:36)
[2017-03-20] MEDS: CALCIUM 600MG + VIT D 400 IU TAB PO SCH (07:37)
[2017-03-20] MEDS: CYANOCOBALAMIN 500 MCG TAB (VIT B-12) PO SCH (07:37)
[2017-03-20] MEDS: INSULIN ASPART 100 UNITS/ML 3 ML PEN SC SCH ×4 (07:38→20:38)
[2017-03-20] MEDS: INSULIN GLARGINE SOLOSTAR 100 UNITS/ML 3 ML PEN SC SCH ×2 (07:39→20:35)
[2017-03-20] MEDS: MoRPHine SULFATE CR 15 MG TAB (MS CONTIN) PO SCH ×2 (08:26→20:36)
[2017-03-20] MEDS ORDERED: TIOTROPIUM BROMIDE 5 PUFF/90 MCG INH INH SCH (09:00)
--- NOTE | 2017-03-20 10:13 | Pharmacy Progress Note ---
Pharmacy Glycemic Short Note 2 Date of Service Mar 20, 2017. OUTPATIENT ANTIDIABETIC REGIMEN: * Basaglar (insulin glargine U-100) 12 units SQ BID * NovoLog 5 units SQ TIDM ASSESSMENT: * See progress note from 03/19 for more background info, in short: * Pt has received ~70 units of insulin over the past 24hrs. Currently ordered "stressed" outpatient dosing of insulin for high dose steroids * Would like to keep regimen is split 40% basal : 60% prandial which is the preferred split for steroid induced hyperglycemia since steroids have their most profound effect on post-prandial hyperglycemia * Steroids changed/tapered from Solumedrol 125mg IV Q8hrs (only received one dose) to Prednisone 40mg PO daily (first dose last night and then daily starting this morning) * Per previous admissions (specifically 03/09 -03/11) patient was ordered prednisone 40mg PO daily in AM and only required basal insulin once daily instead of twice daily as ordered on outpatient antidiabetic regimen. Will keep basal insulin dosing in the morning to coincide with prednisone administration. Since patient does take basal insulin BID as an outpatient, will schedule a very conservative PM dose to only be given if BSG >180 mg/dl * BSGs over the past 24 hrs: 135, 188, 265, 190, * BSG of 265 mg/dl last evening was after receiving Solumedrol 125mg IV in ED * BSGs should start to trend downwards today with step down in steroid dosing PLAN FOR INPATIENT GLYCEMIC CONTROL: * Basal insulin: decrease dose, change to once daily in AM with prednisone admin per previous admissions * Lantus 18 units SQ daily in AM * Lantus 7 units SQ HS only if BSG >180 mg/dl * Bolus insulin * NovoLog per scale ACHS or Q6hrs while NPO * Goal Range: Low 110 mg/dL - High 140 mg/dL * Correction Factor: 20 mg/dL/unit * Nutritional / Prandial insulin per carb ratio of 1 unit per 7 grams CHO consumed PLAN FOR DISCHARGE: * A1c = 6.1% 03/2017 * Patient may be experiencing hypoglycemia as an outpatient with this low A1c * Pt requiring lower than outpatient dosing in house despite prednisone which would increase insulin needs. * May consider changing outpaitent basal insulin (Basaglar 12 units) to just once daily instead of BID
[2017-03-20] MEDS: LEVOFLOXACIN / D5W 750 MG in PREMIXED IN D5W 150 ML IV SCH (10:38)
--- NOTE | 2017-03-20 10:47 | Pulmonology Progress Note ---
Pulmonary Progress Note Date of Service Mar 20, 2017. Attending Dr. Georges Subjective Patient notes overall improvement the last 24 hours but continues to have dyspnea at rest. It did appear that the BiPAP was able to relieve some of her respiratory effort. Patient does note improvement in her back the pain/ discomfort as well. Objective Patient able to sit up in bed complete full sentences but is still tachypneic during our conversation. VS: I/Os: -634cc Sao2%: 92-96 FiO2: 3 liters RR: 18-22 Resp: Decreased breath sounds globally Card: S1-S2 distant heart sounds but regular rate and rhythm Abd: Positive bowel sounds soft nontender Ext: Minimal edema bilateral dependent regions Studies WBC 22 K (neutrophil number 20.76) Platelet: 143 K Lactic acid 3.0 Albumin: 2.5 Previous studies o Mycoplasma pneumonia 03/07/2017: Negative o Urine Legionella antigen: Not detected o Aspergillus Flavus antibiotic: Negative o Aspergillus fumigatus antibody: Negative o Aspergillus [place] antibody negative o [id number] ab: Negative o B-D-Glucan: <31 o MRSA nasal swab negative Active pulmonary Medications: 1. Lovenox 40 mg subcu 2. Levofloxacin 750 mg 3. Protonix 40 mg 4. Daliresp 500 mcg 5. Vancomycin 125 mg IV Q 18 hours 6. Ranitidine 150 mg b.i.d. 7. Voriconazole 200 mg b.i.d. 8. Brovana 15 mcg b.i.d. nebulized 9. Dornase 2.5 mL nebulized b.i.d. 10. Cefepime 2 g q.8 hours IV 11. Xopenex/Atrovent nebulizers Q 6 hours 12. Prednisone 40 mg daily Assessment & Plan 61-year-old female admitted for acute on chronic respiratory failure: 1. Respiratory Failure: Patient with severe obstructive ventilatory disease secondary to alpha 1 antitrypsin deficiency. She continues to get her weekly replacement and her will bring in her dose tomorrow for infusion. At this time she is improving slowly with addition of BiPAP to help decrease her overall work of breathing. Suggest we continue her by pack current settings as well as steroids at 40 mg daily for the next 2-3 days and possibly taper down most likely as an outpatient. Also continue other current medications: Daliresp, Brovana, Xopenex/Atrovent nebulizers. Prior to discharge patient's inhaler should be reinstituted. 2. ID: Patient's so with a notable leukocytosis of 22 K an elevated neutrophil number. This does suggest underlying infection. At this time agree with continuing levofloxacin 750 mg, and cefepime 2 grams q.8 hours IV. Will discontinue vancomycin as the patient has never grown out MRSA via bronchoscopy and her recent nasal swab is negative. Also suggest at this time we continue voriconazole in weight her galactomannan study. I do realize patient's previous fungal titers have been negative but colectomy and has a high sensitivity and specificity for invasive aspergillosis. 3. Alpha 1-Antitrypsin: Patient's is to bring in her replacement. 4. Back Pain: Patient's back pain did improve with cyclobenzaprine will continue on a p.r.n. basis at this time. Data Medications: Current Inpatient Medications Medications (Trade) Dose Ordered Sig/Aram Route Start Time Stop Time Status Last Admin Dose Admin Miscellaneous Information (Consult Glycemic Management Pharmacy) 1 ea UD N/A 03/19/17 13:10 04/18/17 13:09 Ipratropium [place] (Atrovent 0.02% 0.5MG/2.5ML Neb) 0.5 mg Q6R INH 03/19/17 15:00 04/18/17 14:59 03/19/17 15:40 0.5 MG Levalbuterol (Xopenex 1.25MG/ 0.5ML Neb) 1.25 mg Q6R INH 03/19/17 15:00 04/18/17 14:59 03/19/17 15:40 1.25 MG Levofloxacin 750 mg/Prmx 150 ml @ 100 mls/hr Q24H IV 03/20/17 11:00 03/26/17 10:59 Vancomycin HCl 1250 mg/Sodium Chloride 275 ml @ 125 mls/hr Q18H IV 03/20/17 02:00 03/26/17 23:58 03/20/17 01:49 125 MLS/HR Glucose (Glucose 40% Gel) 15-30 GRAMS 15 GRAMS... UD PRN PO 03/19/17 13:30 04/18/17 13:29 Glucose (Glucose Chew Tab) 4-8 Tablets 4 Tabl... UD PRN PO 03/19/17 13:30 04/18/17 13:29 Dextrose (Dextrose 50% 50ML Syringe) 25-50ML OF 50% DW IV FOR... UD PRN IV 03/19/17 13:30 04/18/17 13:29 Glucagon (Glucagon Inj) 1 mg UD PRN SQ 03/19/17 13:30 04/18/17 13:29 Ioversol (Optiray 320) 125 ml UD PRN IV 03/19/17 13:30 03/23/17 13:29 Insulin Aspart (novoLOG ASPART) SLIDING SCALE ACHS SC 03/19/17 16:00 04/18/17 15:59 03/20/17 07:38 11 UNITS Arformoterol Tartrate (Brovana 15MCG/ 2ML Neb Soln) 15 mcg BIDR INH 03/19/17 20:00 04/18/17 19:59 03/20/17 07:01 15 MCG Calcium/Vitamin D (Caltrate Plus Tab) 1 tab QAM PO 03/20/17 09:00 04/19/17 08:59 03/20/17 07:37 1 TAB Citalopram Hydrobromide (celeXA TAB) 40 mg DAILY PO 03/20/17 09:00 04/19/17 08:59 03/20/17 07:36 40 MG Morphine Sulfate (Roxanol Oral Soln) 5 mg Q4 PRN PO 03/19/17 13:45 04/02/17 13:44 03/20/17 04:37 5 MG Pantoprazole Sodium (Protonix Tab) 40 mg DAILY PO 03/20/17 09:00 04/19/17 08:59 03/20/17 07:36 40 MG Roflumilast (Daliresp Tab) 500 mcg QAM PO 03/20/17 09:00 04/19/17 08:59 03/20/17 07:36 500 MCG Cyanocobalamin (Vitamin B-12 Tab) 1,000 mcg QAM PO 03/20/17 09:00 04/19/17 08:59 03/20/17 07:37 1,000 MCG Ranitidine HCl (zANTac TAB) 150 mg BID PO 03/19/17 21:00 04/18/17 20:59 03/20/17 07:36 150 MG Polyethylene (Miralax Powder Packet) 17 gm DAILY PRN PO 03/19/17 13:45 04/18/17 13:44 Vancomycin HCl (Consult) 1 ea UD PRN N/A 03/19/17 14:00 04/18/17 13:59 Cefepime HCl 2000 mg/Syringe 20 ml @ 5 mls/min Q8H IV 03/19/17 18:00 03/26/17 17:59 03/20/17 09:19 5 MLS/MIN Enoxaparin Sodium (Lovenox Inj) 40 mg Q24H SQ 03/20/17 17:00 04/19/17 16:59 Dornase Venkat (Pulmozyme Inhalation Soln 2.5ml Amp) 2.5 ml BIDR INH 03/19/17 20:00 04/18/17 19:59 03/20/17 07:01 2.5 ML Voriconazole (Vfend Tab) 200 mg BID PO 03/19/17 21:00 03/26/17 20:59 03/20/17 07:36 200 MG Morphine Sulfate (Oramorph Sr Tab) 30 mg BID PO 03/19/17 21:21 04/02/17 21:20 03/20/17 08:26 30 MG Heparin Sodium (Porcine) (Heparin 100 Unit/ml 5ml Flush) 5 ml PRN PRN IV 03/20/17 00:15 04/19/17 00:14 Prednisone (PredniSONE TAB) 40 mg DAILY PO 03/20/17 09:00 04/19/17 08:59 03/20/17 09:19 40 MG Insulin Glargine (Lantus Solostar Pen) 18 units DAILY SC 03/21/17 09:00 04/20/17 08:59 Insulin Glargine (Lantus Solostar Pen) see protocol text HS SC 03/20/17 21:00 04/19/17 20:59 Vital Signs: Date Time Temp Pulse Resp B/P (MAP) Pulse Ox O2 Delivery O2 Flow Rate FiO2 03/20/17 08:00 Nasal Cannula 3.0 03/20/17 07:28 37.2 71 22 138/62 (87) 92 3.0 03/20/17 07:03 71 18 96 Nasal Cannula 3.0 03/20/17 04:00 BiPAP 03/20/17 00:00 BiPAP 03/19/17 23:07 36.8 82 20 121/61 (81) 96 Nasal Cannula 3.0 03/19/17 20:00 BiPAP 03/19/17 19:54 36.7 77 16 112/42 (65) 97 Nasal Cannula 4.0 03/19/17 19:26 84 99 45 03/19/17 18:58 81 18 89 Nasal Cannula 3.0 03/19/17 15:49 81 18 97 Nasal Cannula 4.0 03/19/17 14:47 37.1 92 28 141/78 94 Nasal Cannula 5.0 03/19/17 13:57 92 16 126/64 93 03/19/17 13:46 92 17 122/60 94 Nasal Cannula 5.0 03/19/17 13:20 97 03/19/17 13:13 99 22 122/60 95 Nasal Cannula 5.0 03/19/17 12:48 108 24 108/54 91 Nasal Cannula 5.0 03/19/17 11:54 99 22 95/40 92 Nasal Cannula 4.0 03/19/17 10:57 106 03/19/17 10:56 Nasal Cannula 4.0 03/19/17 10:41 91 Nasal Cannula 5.0 Laboratory Results: Last 24 Hours Test 03/19/17 11:12 03/19/17 11:43 03/19/17 11:55 03/19/17 15:23 White Blood Count 21.26 K/uL Red Blood Count 3.64 M/uL Hemoglobin 10.3 g/dL Hematocrit 32.5 % Mean Corpuscular Volume 89.3 fL Mean Corpuscular Hemoglobin 28.3 pg Mean Corpuscular Hemoglobin Concent 31.7 g/dl Platelet Count 135 K/uL Mean Platelet Volume 9.3 fL Neutrophils (%) (Auto) 90.6 % Lymphocytes (%) (Auto) 2.7 % Monocytes (%) (Auto) 6.2 % Eosinophils (%) (Auto) 0.2 % Basophils (%) (Auto) 0.1 % Neutrophils # (Auto) 19.26 K/uL Lymphocytes # (Auto) 0.57 K/uL Monocytes # (Auto) 1.31 K/uL Eosinophils # (Auto) 0.05 K/uL Basophils # (Auto) 0.02 K/uL RDW Standard Deviation 43.2 fL RDW Coefficient of Variation 13.2 % Immature Granulocyte % (Auto) 0.2 % Immature Granulocyte # (Auto) 0.05 K/uL Red Blood Cell Morphology Unremarkable Prothrombin Time 10.5 SECONDS Prothromb Time International Ratio 1.0 Activated Partial Thromboplast Time 37.3 SECONDS Partial Thromboplastin Ratio 1.4 Sodium Level 140 mmol/L 138 mmol/L Potassium Level 3.5 mmol/L 3.8 mmol/L Chloride Level 103 mmol/L 107 mmol/L Carbon Dioxide Level 30 mmol/L 25 mmol/L Anion Gap 7.0 mmol/L 6.0 mmol/L Blood Urea Nitrogen 14 mg/dl 12 mg/dl Creatinine 1.02 mg/dl 0.99 mg/dl Estimated GFR () 68.3 70.8 Estimated GFR (Non- 58.9 61.1 BUN/Creatinine Ratio 13.2 12.0 Random Glucose 135 mg/dl 191 mg/dl Calcium Level 8.3 mg/dl 7.3 mg/dl Magnesium Level 1.4 mg/dl 1.7 mg/dl Total Bilirubin 0.5 mg/dl 0.8 mg/dl Direct Bilirubin 0.2 mg/dl Aspartate Amino Transf (AST/SGOT) 23 U/L 23 U/L Alanine Aminotransferase (ALT/SGPT) 25 U/L 25 U/L Alkaline Phosphatase 102 U/L 83 U/L Total Creatine Kinase 64 U/L Creatine Kinase MB 1.0 ng/ml Creatine Kinase MB Ratio 1.6 Troponin I < 0.015 ng/ml Total Protein 6.0 gm/dl 5.6 gm/dl Albumin 2.9 gm/dl 2.5 gm/dl Lipase 446 U/L Thyroid Stimulating Hormone (TSH) 0.448 uIu/ml Bedside Lactic Acid Venous 2.08 mmol/L Urine Color DK YELLOW Urine Appearance CLEAR Urine pH >= 9.0 Urine Specific [place] 1.023 Urine Protein NEG Urine Glucose (UA) NEG Urine Ketones TRACE Urine Occult Blood NEG Urine Nitrite NEG Urine Bilirubin NEG Urine Urobilinogen NEG Urine Leukocyte Esterase SMALL Urine WBC (Auto) 1-5 /hpf Urine RBC (Auto) 5-10 /hpf Urine Hyaline Casts (Auto) 1-5 /lpf Urine Epithelial Cells (Auto) >30 /lpf Urine Bacteria (Auto) NEG Influenza Type A Antigen Neg for Influ A Influenza Type B Antigen Neg for Influ B Est Creatinine Clear Calc Drug Dose 59.6 ml/min Lactic Acid Level 3.0 mmol/L Globulin 3.1 gm/dl Albumin/Globulin Ratio 0.8 Test 03/19/17 15:27 03/19/17 17:15 03/19/17 17:45 03/19/17 20:19 Bedside Glucose 188 mg/dl 265 mg/dl Test 03/20/17 04:26 03/20/17 07:15 White Blood Count 21.81 K/uL Red Blood Count 3.40 M/uL Hemoglobin 9.6 g/dL Hematocrit 30.0 % Mean Corpuscular Volume 88.2 fL Mean Corpuscular Hemoglobin 28.2 pg Mean Corpuscular Hemoglobin Concent 32.0 g/dl Platelet Count 143 K/uL Mean Platelet Volume 9.6 fL Neutrophils (%) (Auto) 95.2 % Lymphocytes (%) (Auto) 1.9 % Monocytes (%) (Auto) 2.3 % Eosinophils (%) (Auto) 0.0 % Basophils (%) (Auto) 0.1 % Neutrophils # (Auto) 20.76 K/uL Lymphocytes # (Auto) 0.41 K/uL Monocytes # (Auto) 0.51 K/uL Eosinophils # (Auto) 0.00 K/uL Basophils # (Auto) 0.02 K/uL RDW Standard Deviation 42.4 fL RDW Coefficient of Variation 13.3 % Immature Granulocyte % (Auto) 0.5 % Immature Granulocyte # (Auto) 0.11 K/uL Sodium Level 141 mmol/L Potassium Level 4.4 mmol/L Chloride Level 110 mmol/L Carbon Dioxide Level 25 mmol/L Anion Gap 6.0 mmol/L Blood Urea Nitrogen 12 mg/dl Creatinine 1.03 mg/dl Est Creatinine Clear Calc Drug Dose 57.3 ml/min Estimated GFR () 67.5 Estimated GFR (Non- 58.2 BUN/Creatinine Ratio 12.0 Random Glucose 256 mg/dl Calcium Level 8.1 mg/dl Magnesium Level 2.2 mg/dl Total Bilirubin 0.6 mg/dl Aspartate Amino Transf (AST/SGOT) 16 U/L Alanine Aminotransferase (ALT/SGPT) 24 U/L Alkaline Phosphatase 75 U/L Total Protein 5.9 gm/dl Albumin 2.6 gm/dl Globulin 3.3 gm/dl Albumin/Globulin Ratio 0.8 Hepatitis C Antibody Screen NEG Bedside Glucose 190 mg/dl
[2017-03-20] MEDS ORDERED: CYCLOBENZAPRINE HCL 5 MG TAB PO PRN (11:00)
[2017-03-20] MEDS: ENOXAPARIN 40 MG/0.4 ML SYR SQ SCH (17:09)
--- NOTE | 2017-03-20 19:34 | Progress Note ---
Medicine Progress Note Date & Time of Visit: Mar 20, 2017 at 19:29. Subjective seen resting in bed not in distress states her breathing has improved compared to yesterday has dry cough no chest pain no fever/chills denies other symptoms Objective Last 8 Hrs Date Time Temp Pulse Resp B/P (MAP) Pulse Ox O2 Delivery O2 Flow Rate FiO2 03/20/17 19:06 83 18 96 Nasal Cannula 3.0 03/20/17 18:54 36.8 88 22 147/59 (88) 94 Nasal Cannula 3.0 03/20/17 16:00 Nasal Cannula 3.0 03/20/17 14:59 37.0 103 16 126/92 (103) 95 Nasal Cannula 3.0 03/20/17 14:16 92 18 97 Nasal Cannula 3.0 03/20/17 11:36 37.6 89 21 125/56 (79) 94 3.0 Physical Exam: General- oriented x 3, not in distress, speaks in sentences with no effort Head- atraumatic Eyes- anicteric ENT- oropharynx clear Neck- no JVD Lungs- diminished breath sounds, no wheezes Heart- regular rhythm; no murmur, normal rate Abdomen- normal bowel sounds, soft, nontender Extremities- no pretibial edema, no calf tenderness; peripheral pulses intact Neuro- alert, oriented x 3; no gross focal deficits Skin- warm & dry Laboratory Results: Last 24 Hours Test 03/19/17 20:19 03/20/17 04:26 03/20/17 07:15 03/20/17 11:29 Bedside Glucose 265 mg/dl 190 mg/dl 230 mg/dl White Blood Count 21.81 K/uL Red Blood Count 3.40 M/uL Hemoglobin 9.6 g/dL Hematocrit 30.0 % Mean Corpuscular Volume 88.2 fL Mean Corpuscular Hemoglobin 28.2 pg Mean Corpuscular Hemoglobin Concent 32.0 g/dl Platelet Count 143 K/uL Mean Platelet Volume 9.6 fL Neutrophils (%) (Auto) 95.2 % Lymphocytes (%) (Auto) 1.9 % Monocytes (%) (Auto) 2.3 % Eosinophils (%) (Auto) 0.0 % Basophils (%) (Auto) 0.1 % Neutrophils # (Auto) 20.76 K/uL Lymphocytes # (Auto) 0.41 K/uL Monocytes # (Auto) 0.51 K/uL Eosinophils # (Auto) 0.00 K/uL Basophils # (Auto) 0.02 K/uL RDW Standard Deviation 42.4 fL RDW Coefficient of Variation 13.3 % Immature Granulocyte % (Auto) 0.5 % Immature Granulocyte # (Auto) 0.11 K/uL Sodium Level 141 mmol/L Potassium Level 4.4 mmol/L Chloride Level 110 mmol/L Carbon Dioxide Level 25 mmol/L Anion Gap 6.0 mmol/L Blood Urea Nitrogen 12 mg/dl Creatinine 1.03 mg/dl Est Creatinine Clear Calc Drug Dose 57.3 ml/min Estimated GFR () 67.5 Estimated GFR (Non- 58.2 BUN/Creatinine Ratio 12.0 Random Glucose 256 mg/dl Calcium Level 8.1 mg/dl Magnesium Level 2.2 mg/dl Total Bilirubin 0.6 mg/dl Aspartate Amino Transf (AST/SGOT) 16 U/L Alanine Aminotransferase (ALT/SGPT) 24 U/L Alkaline Phosphatase 75 U/L Total Protein 5.9 gm/dl Albumin 2.6 gm/dl Globulin 3.3 gm/dl Albumin/Globulin Ratio 0.8 Hepatitis C Antibody Screen NEG Test 03/20/17 16:16 Bedside Glucose 99 mg/dl Date/Time Source Procedure Growth Status 03/19/17 22:00 Nasal MRSA DNA Surveillance Screen - Final Specimen Negative for MRSA by DNA Probe Complete Assessment & Plan ACUTE ON CHRONIC RESPIRATORY FAILURE SECONDARY TO: COPD EXACERBATION FROM RIGHT SIDED PNEUMONIA - improving - cultures pending - on empiric broad spectrum antibiotics + Voriconazole Prednisone 40mg daily Nebs - Pulm consulted, appreciate the recommendations DM 2 - hold oral meds ISS, Lantus HISTORY OF PE - on Lovenox CHRONIC PAIN -continue usual Morphine DVT PROPH Levanox FULL CODE DISPOSITION pending Current Inpatient Medications: Current Inpatient Medications Medications (Trade) Dose Ordered Sig/Aram Route Start Time Stop Time Status Last Admin Dose Admin Miscellaneous Information (Consult Glycemic Management Pharmacy) 1 ea UD N/A 03/19/17 13:10 04/18/17 13:09 Ipratropium [place] (Atrovent 0.02% 0.5MG/2.5ML Neb) 0.5 mg Q6R INH 03/19/17 15:00 04/18/17 14:59 03/20/17 14:13 0.5 MG Levalbuterol (Xopenex 1.25MG/ 0.5ML Neb) 1.25 mg Q6R INH 03/19/17 15:00 04/18/17 14:59 03/20/17 14:13 1.25 MG Levofloxacin 750 mg/Prmx 150 ml @ 100 mls/hr Q24H IV 03/20/17 11:00 03/26/17 10:59 03/20/17 10:38 100 MLS/HR Glucose (Glucose 40% Gel) 15-30 GRAMS 15 GRAMS... UD PRN PO 03/19/17 13:30 04/18/17 13:29 Glucose (Glucose Chew Tab) 4-8 Tablets 4 Tabl... UD PRN PO 03/19/17 13:30 04/18/17 13:29 Dextrose (Dextrose 50% 50ML Syringe) 25-50ML OF 50% DW IV FOR... UD PRN IV 03/19/17 13:30 04/18/17 13:29 Glucagon (Glucagon Inj) 1 mg UD PRN SQ 03/19/17 13:30 04/18/17 13:29 Ioversol (Optiray 320) 125 ml UD PRN IV 03/19/17 13:30 03/23/17 13:29 Insulin Aspart (novoLOG ASPART) SLIDING SCALE ACHS SC 03/19/17 16:00 04/18/17 15:59 03/20/17 17:12 8 UNITS Arformoterol Tartrate (Brovana 15MCG/ 2ML Neb Soln) 15 mcg BIDR INH 03/19/17 20:00 04/18/17 19:59 03/20/17 07:01 15 MCG Calcium/Vitamin D (Caltrate Plus Tab) 1 tab QAM PO 03/20/17 09:00 04/19/17 08:59 03/20/17 07:37 1 TAB Citalopram Hydrobromide (celeXA TAB) 40 mg DAILY PO 03/20/17 09:00 04/19/17 08:59 03/20/17 07:36 40 MG Morphine Sulfate (Roxanol Oral Soln) 5 mg Q4 PRN PO 03/19/17 13:45 04/02/17 13:44 03/20/17 17:24 5 MG Pantoprazole Sodium (Protonix Tab) 40 mg DAILY PO 03/20/17 09:00 04/19/17 08:59 03/20/17 07:36 40 MG Roflumilast (Daliresp Tab) 500 mcg QAM PO 03/20/17 09:00 04/19/17 08:59 03/20/17 07:36 500 MCG Cyanocobalamin (Vitamin B-12 Tab) 1,000 mcg QAM PO 03/20/17 09:00 04/19/17 08:59 03/20/17 07:37 1,000 MCG Ranitidine HCl (zANTac TAB) 150 mg BID PO 03/19/17 21:00 04/18/17 20:59 03/20/17 07:36 150 MG Polyethylene (Miralax Powder Packet) 17 gm DAILY PRN PO 03/19/17 13:45 04/18/17 13:44 Cefepime HCl 2000 mg/Syringe 20 ml @ 5 mls/min Q8H IV 03/19/17 18:00 03/26/17 17:59 03/20/17 17:24 5 MLS/MIN Enoxaparin Sodium (Lovenox Inj) 40 mg Q24H SQ 03/20/17 17:00 04/19/17 16:59 03/20/17 17:09 40 MG Dornase Venkat (Pulmozyme Inhalation Soln 2.5ml Amp) 2.5 ml BIDR INH 03/19/17 20:00 04/18/17 19:59 03/20/17 19:06 2.5 ML Voriconazole (Vfend Tab) 200 mg BID PO 03/19/17 21:00 03/26/17 20:59 03/20/17 07:36 200 MG Morphine Sulfate (Oramorph Sr Tab) 30 mg BID PO 03/19/17 21:21 04/02/17 21:20 03/20/17 08:26 30 MG Heparin Sodium (Porcine) (Heparin 100 Unit/ml 5ml Flush) 5 ml PRN PRN IV 03/20/17 00:15 04/19/17 00:14 Prednisone (PredniSONE TAB) 40 mg DAILY PO 03/20/17 09:00 04/19/17 08:59 03/20/17 09:19 40 MG Insulin Glargine (Lantus Solostar Pen) 18 units DAILY SC 03/21/17 09:00 04/20/17 08:59 Insulin Glargine (Lantus Solostar Pen) see protocol text HS SC 03/20/17 21:00 04/19/17 20:59 Cyclobenzaprine HCl (Flexeril Tab) 5 mg TID PRN PO 03/20/17 11:00 04/19/17 10:59 Proteinase Inhibitor (Human) 4680 mg/Empty Bag 80 ml @ 320 mls/hr TODAY@1100 ONCE IV 03/21/17 11:00 03/21/17 11:14
[2017-03-20] MEDS ORDERED: CEFEPIME IV 2,000 MG in DEXTROSE 5% 100ML 100 ML IV SCH (20:00)
[2017-03-21] VITALS (12 sets, daily range): BP systolic 116–178; BP diastolic 48–74; PULSE 70–90; TEMP 36.8–37.3; O2SAT 93–97
[2017-03-21] MEDS: CEFEPIME IV 2,000 MG in SYRINGE 7.5 ML IV SCH ×3 (01:53→18:16)
[2017-03-21] MEDS: IPRATROPIUM BROMIDE NEB SOLN 0.02% 2.5 ML VIAL INH SCH ×4 (01:57→21:00)
[2017-03-21] MEDS: LEVALBUTEROL 1.25MG/0.5ML NEB INH SCH ×4 (01:57→21:00)
[2017-03-21] MEDS: DORNASE ALFA (2500U) 2.5MG/2.5ML INH SCH ×2 (07:00→19:25)
[2017-03-21] MEDS: ARFORMOTEROL TART 15MCG/2ML VIAL INH SCH ×2 (07:00→19:25)
[2017-03-21] MEDS: CALCIUM 600MG + VIT D 400 IU TAB PO SCH (08:09)
[2017-03-21] MEDS: RANITIDINE HCL 150 MG TAB PO SCH ×2 (08:09→21:30)
[2017-03-21] MEDS: ROFLUMILAST 500 MCG TAB PO SCH (08:10)
[2017-03-21] MEDS: PANTOprazole SOD 40 MG TAB PO SCH (08:10)
[2017-03-21] MEDS: CITALOPRAM 40 MG TAB PO SCH (08:10)
[2017-03-21] MEDS: VORICONAZOLE 200 MG TAB PO SCH ×2 (08:10→21:30)
[2017-03-21] MEDS: CYANOCOBALAMIN 500 MCG TAB (VIT B-12) PO SCH (08:10)
[2017-03-21] MEDS: INSULIN ASPART 100 UNITS/ML 3 ML PEN SC SCH ×4 (08:17→21:32)
[2017-03-21] MEDS: MoRPHine SULFATE CR 15 MG TAB (MS CONTIN) PO SCH ×2 (08:19→21:30)
[2017-03-21] MEDS ORDERED: INSULIN GLARGINE SOLOSTAR 100 UNITS/ML 3 ML PEN SC SCH (09:00)
--- NOTE | 2017-03-21 09:38 | Pulmonology Progress Note ---
Pulmonary Progress Note Date of Service Mar 21, 2017. Attending Dr. Mccartney Subjective Patient seen and examined this morning. She is feeling better today from a respiratory standpoint. She feels less short of breath at rest and on exertion. Pain in left shoulder/chest has diminished. She still has intermittent coughing and occasional wheezing. She is would like to go home for the holidays. Objective VS reviewed. Tm 37.3, P 75-90, BP 116/48 -157/62, RR 16-20, 94-97% on 3-4 L NC. 2L negative in the last 24 hours. Gen: AAOx3, NAD, mildly tachypneic when speaking Resp: Decreased breath sounds bilaterally, with sporadic expiratory wheezes Card: S1-S2 distant heart sounds but regular rate and rhythm Abd: Positive bowel sounds, soft, nontender Ext: Minimal edema bilateral dependent regions Labs reviewed. No new CBC today. Last WBC 21 on 03/20/2017 WBC 22 K (neutrophil number 20.76) Urine legionella Ag-pending Mycoplasma pneumonia IgM-- pending Previous studies Mycoplasma pneumonia 03/07/2017: Negative Urine Legionella antigen: Not detected Aspergillus Flavus antibiotic: Negative Aspergillus fumigatus antibody: Negative Aspergillus [place] antibody negative [id number] ab: Negative B-D-Glucan: <31 MRSA nasal swab negative Active pulmonary Medications: 1. Lovenox 40 mg subcu 2. Levofloxacin 750 mg 3. Protonix 40 mg 4. Daliresp 500 mcg 5. Vancomycin 125 mg IV Q 18 hours 6. Ranitidine 150 mg b.i.d. 7. Voriconazole 200 mg b.i.d. 8. Brovana 15 mcg b.i.d. nebulized 9. Dornase 2.5 mL nebulized b.i.d. 10. Cefepime 2 g q.8 hours IV 11. Xopenex/Atrovent nebulizers Q 6 hours 12. Prednisone 40 mg daily Assessment & Plan Acute on chronic hypoxic respiratory failure COPD secondary to alpha 1 antitrypsin deficiency HCAP - lingula/LLL Back/chest pain--improved. Mrs. Lanier appears to be improving from a respiratory standpoint. At this time we will continue supplementation oxygenation. She is at her baseline of 3-4L/min. She is schedule to get weekly alpha 1 antitrypsin infusion today. Continue with prednisone 40 mg daily. This will likely be tapered an outpatient. Continue with Daliresp, Brovana, Xopenex/Atrovent nebulizers. Daliresp, Brovana, Xopenex/Atrovent nebulizers. Prior discharge, outpatient inhaler should be resumed. We will continue to treat for HCAP with cefipime and levoquin. We are empirically treating for fungal infection voriconazole. If galatomannan is negative will discontinue. Vancomycin has been discontinued. f/u urine legionella Ag and mycoplasma IgM. Patient left back/shoulder and chest pain--improved. Continue with cyclobenaprine prn. Data Medications: Current Inpatient Medications Medications (Trade) Dose Ordered Sig/Aram Route Start Time Stop Time Status Last Admin Dose Admin Miscellaneous Information (Consult Glycemic Management Pharmacy) 1 ea UD N/A 03/19/17 13:10 04/18/17 13:09 Ipratropium [place] (Atrovent 0.02% 0.5MG/2.5ML Neb) 0.5 mg Q6R INH 03/19/17 15:00 04/18/17 14:59 03/21/17 01:57 0.5 MG Levalbuterol (Xopenex 1.25MG/ 0.5ML Neb) 1.25 mg Q6R INH 03/19/17 15:00 04/18/17 14:59 03/21/17 01:57 1.25 MG Levofloxacin 750 mg/Prmx 150 ml @ 100 mls/hr Q24H IV 03/20/17 11:00 03/26/17 10:59 03/20/17 10:38 100 MLS/HR Glucose (Glucose 40% Gel) 15-30 GRAMS 15 GRAMS... UD PRN PO 03/19/17 13:30 04/18/17 13:29 Glucose (Glucose Chew Tab) 4-8 Tablets 4 Tabl... UD PRN PO 03/19/17 13:30 04/18/17 13:29 Dextrose (Dextrose 50% 50ML Syringe) 25-50ML OF 50% DW IV FOR... UD PRN IV 03/19/17 13:30 04/18/17 13:29 Glucagon (Glucagon Inj) 1 mg UD PRN SQ 03/19/17 13:30 04/18/17 13:29 Ioversol (Optiray 320) 125 ml UD PRN IV 03/19/17 13:30 03/23/17 13:29 Insulin Aspart (novoLOG ASPART) SLIDING SCALE ACHS SC 03/19/17 16:00 04/18/17 15:59 03/21/17 08:17 6 UNITS Arformoterol Tartrate (Brovana 15MCG/ 2ML Neb Soln) 15 mcg BIDR INH 03/19/17 20:00 04/18/17 19:59 03/21/17 07:00 15 MCG Calcium/Vitamin D (Caltrate Plus Tab) 1 tab QAM PO 03/20/17 09:00 04/19/17 08:59 03/21/17 08:09 1 TAB Citalopram Hydrobromide (celeXA TAB) 40 mg DAILY PO 03/20/17 09:00 04/19/17 08:59 03/21/17 08:10 40 MG Morphine Sulfate (Roxanol Oral Soln) 5 mg Q4 PRN PO 03/19/17 13:45 04/02/17 13:44 03/20/17 23:49 5 MG Pantoprazole Sodium (Protonix Tab) 40 mg DAILY PO 03/20/17 09:00 04/19/17 08:59 03/21/17 08:10 40 MG Roflumilast (Daliresp Tab) 500 mcg QAM PO 03/20/17 09:00 04/19/17 08:59 03/21/17 08:10 500 MCG Cyanocobalamin (Vitamin B-12 Tab) 1,000 mcg QAM PO 03/20/17 09:00 04/19/17 08:59 03/21/17 08:10 1,000 MCG Ranitidine HCl (zANTac TAB) 150 mg BID PO 03/19/17 21:00 04/18/17 20:59 03/21/17 08:09 150 MG Polyethylene (Miralax Powder Packet) 17 gm DAILY PRN PO 03/19/17 13:45 04/18/17 13:44 Cefepime HCl 2000 mg/Syringe 20 ml @ 5 mls/min Q8H IV 03/19/17 18:00 03/26/17 17:59 03/21/17 01:53 5 MLS/MIN Enoxaparin Sodium (Lovenox Inj) 40 mg Q24H SQ 03/20/17 17:00 04/19/17 16:59 03/20/17 17:09 40 MG Dornase Venkat (Pulmozyme Inhalation Soln 2.5ml Amp) 2.5 ml BIDR INH 03/19/17 20:00 04/18/17 19:59 03/21/17 07:00 2.5 ML Voriconazole (Vfend Tab) 200 mg BID PO 03/19/17 21:00 03/26/17 20:59 03/21/17 08:10 200 MG Morphine Sulfate (Oramorph Sr Tab) 30 mg BID PO 03/19/17 21:21 04/02/17 21:20 03/21/17 08:19 30 MG Heparin Sodium (Porcine) (Heparin 100 Unit/ml 5ml Flush) 5 ml PRN PRN IV 03/20/17 00:15 04/19/17 00:14 Prednisone (PredniSONE TAB) 40 mg DAILY PO 03/20/17 09:00 04/19/17 08:59 03/21/17 08:09 40 MG Insulin Glargine (Lantus Solostar Pen) 18 units DAILY SC 03/21/17 09:00 04/20/17 08:59 03/21/17 08:19 18 UNITS Insulin Glargine (Lantus Solostar Pen) see protocol text HS SC 03/20/17 21:00 04/19/17 20:59 Cyclobenzaprine HCl (Flexeril Tab) 5 mg TID PRN PO 03/20/17 11:00 04/19/17 10:59 Proteinase Inhibitor (Human) 4680 mg/Empty Bag 80 ml @ 320 mls/hr TODAY@1100 ONCE IV 03/21/17 11:00 03/21/17 11:14 Vital Signs: Date Time Temp Pulse Resp B/P (MAP) Pulse Ox O2 Delivery O2 Flow Rate FiO2 03/21/17 08:14 36.9 86 16 116/48 (70) 95 Nasal Cannula 3.0 03/21/17 07:00 75 18 97 Nasal Cannula 3.0 03/21/17 04:00 Nasal Cannula 3.0 03/21/17 03:55 37.0 90 19 157/62 (93) 96 Nasal Cannula 3.0 03/21/17 01:57 82 18 95 Nasal Cannula 3.0 03/21/17 00:19 37.3 85 20 148/57 (87) 94 Nasal Cannula 4.0 03/21/17 00:00 Nasal Cannula 3.0 03/20/17 20:00 Nasal Cannula 3.0 03/20/17 19:06 83 18 96 Nasal Cannula 3.0 03/20/17 18:54 36.8 88 22 147/59 (88) 94 Nasal Cannula 3.0 03/20/17 16:00 Nasal Cannula 3.0 03/20/17 14:59 37.0 103 16 126/92 (103) 95 Nasal Cannula 3.0 03/20/17 14:16 92 18 97 Nasal Cannula 3.0 03/20/17 11:36 37.6 89 21 125/56 (79) 94 3.0 03/20/17 11:28 Nasal Cannula 3.0 Laboratory Results: Last 24 Hours Test 03/20/17 11:29 03/20/17 16:16 03/20/17 20:31 03/21/17 06:34 Bedside Glucose 230 mg/dl 99 mg/dl 165 mg/dl 113 mg/dl
[2017-03-21] MEDS ORDERED: [UNRECOGNIZED DRUG - MIXTURE] IV ONE (11:00)
[2017-03-21] MEDS: LEVOFLOXACIN / D5W 750 MG in PREMIXED IN D5W 150 ML IV SCH (11:06)
[2017-03-21] MEDS: MoRPHine SULFATE 5 MG/0.25 ML UDP PO PRN ×2 (11:06→16:54)
[2017-03-21] MEDS ORDERED: VANCOMYCIN TROUGH ONE (13:30)
[2017-03-21] MEDS: ENOXAPARIN 40 MG/0.4 ML SYR SQ SCH (18:17)
--- NOTE | 2017-03-21 19:22 | Progress Note ---
Medicine Progress Note Date & Time of Visit: Mar 21, 2017 at 19:20. Subjective seen resting in bed, more comfortable states she feels improved today breathing is improving, less cough no other symptoms Objective Last 8 Hrs Date Time Temp Pulse Resp B/P (MAP) Pulse Ox O2 Delivery O2 Flow Rate FiO2 03/21/17 19:08 36.8 70 20 178/73 (108) 96 Nasal Cannula 3.0 03/21/17 15:16 37.0 82 20 170/68 (102) 95 Nasal Cannula 3.0 03/21/17 14:49 79 18 96 Nasal Cannula 3.0 03/21/17 12:18 36.9 83 18 137/62 (87) 93 Nasal Cannula 3.0 03/21/17 12:00 Nasal Cannula 3.0 Physical Exam: General- oriented x 3, not in distress, speaks in sentences with no effort Eyes- anicteric Neck- no JVD Lungs- diminished breath sounds, no wheezing, no rales Heart- regular rhythm; no murmur, normal rate Abdomen- normal bowel sounds, soft, nontender Extremities- no pretibial edema, no calf tenderness; peripheral pulses intact Neuro- alert, oriented x 3; no gross focal deficits Skin- warm & dry Laboratory Results: Last 24 Hours Test 03/20/17 20:31 03/21/17 06:34 03/21/17 11:31 03/21/17 16:32 Bedside Glucose 165 mg/dl 113 mg/dl 126 mg/dl 163 mg/dl Assessment & Plan ACUTE ON CHRONIC RESPIRATORY FAILURE SECONDARY TO: COPD EXACERBATION FROM RIGHT SIDED PNEUMONIA - improving daily - cultures pending galactomanan test pending - on empiric broad spectrum antibiotics + Voriconazole Prednisone 40mg daily Nebs - improving gradually back to baseline nasal cannula - Pulm consulted, appreciate the recommendations DM 2 - hold oral meds ISS, Lantus HISTORY OF PE - on Lovenox CHRONIC PAIN -continue usual Morphine DVT PROPH Levanox FULL CODE DISPOSITION pending lives at home with already on oxygen 22/11 Current Inpatient Medications: Current Inpatient Medications Medications (Trade) Dose Ordered Sig/Aram Route Start Time Stop Time Status Last Admin Dose Admin Miscellaneous Information (Consult Glycemic Management Pharmacy) 1 ea UD N/A 03/19/17 13:10 04/18/17 13:09 Ipratropium [place] (Atrovent 0.02% 0.5MG/2.5ML Neb) 0.5 mg Q6R INH 03/19/17 15:00 04/18/17 14:59 03/21/17 14:48 0.5 MG Levalbuterol (Xopenex 1.25MG/ 0.5ML Neb) 1.25 mg Q6R INH 03/19/17 15:00 04/18/17 14:59 03/21/17 14:48 1.25 MG Levofloxacin 750 mg/Prmx 150 ml @ 100 mls/hr Q24H IV 03/20/17 11:00 03/26/17 10:59 03/21/17 11:06 100 MLS/HR Glucose (Glucose 40% Gel) 15-30 GRAMS 15 GRAMS... UD PRN PO 03/19/17 13:30 04/18/17 13:29 Glucose (Glucose Chew Tab) 4-8 Tablets 4 Tabl... UD PRN PO 03/19/17 13:30 04/18/17 13:29 Dextrose (Dextrose 50% 50ML Syringe) 25-50ML OF 50% DW IV FOR... UD PRN IV 03/19/17 13:30 04/18/17 13:29 Glucagon (Glucagon Inj) 1 mg UD PRN SQ 03/19/17 13:30 04/18/17 13:29 Ioversol (Optiray 320) 125 ml UD PRN IV 03/19/17 13:30 03/23/17 13:29 Insulin Aspart (novoLOG ASPART) SLIDING SCALE ACHS SC 03/19/17 16:00 04/18/17 15:59 03/21/17 11:55 7 UNITS Arformoterol Tartrate (Brovana 15MCG/ 2ML Neb Soln) 15 mcg BIDR INH 03/19/17 20:00 04/18/17 19:59 03/21/17 07:00 15 MCG Calcium/Vitamin D (Caltrate Plus Tab) 1 tab QAM PO 03/20/17 09:00 04/19/17 08:59 03/21/17 08:09 1 TAB Citalopram Hydrobromide (celeXA TAB) 40 mg DAILY PO 03/20/17 09:00 04/19/17 08:59 03/21/17 08:10 40 MG Morphine Sulfate (Roxanol Oral Soln) 5 mg Q4 PRN PO 03/19/17 13:45 04/02/17 13:44 03/21/17 16:54 5 MG Pantoprazole Sodium (Protonix Tab) 40 mg DAILY PO 03/20/17 09:00 04/19/17 08:59 03/21/17 08:10 40 MG Roflumilast (Daliresp Tab) 500 mcg QAM PO 03/20/17 09:00 04/19/17 08:59 03/21/17 08:10 500 MCG Cyanocobalamin (Vitamin B-12 Tab) 1,000 mcg QAM PO 03/20/17 09:00 04/19/17 08:59 03/21/17 08:10 1,000 MCG Ranitidine HCl (zANTac TAB) 150 mg BID PO 03/19/17 21:00 04/18/17 20:59 03/21/17 08:09 150 MG Polyethylene (Miralax Powder Packet) 17 gm DAILY PRN PO 03/19/17 13:45 04/18/17 13:44 Cefepime HCl 2000 mg/Syringe 20 ml @ 5 mls/min Q8H IV 03/19/17 18:00 03/26/17 17:59 03/21/17 09:40 5 MLS/MIN Enoxaparin Sodium (Lovenox Inj) 40 mg Q24H SQ 03/20/17 17:00 04/19/17 16:59 03/20/17 17:09 40 MG Dornase Vnekat (Pulmozyme Inhalation Soln 2.5ml Amp) 2.5 ml BIDR INH 03/19/17 20:00 04/18/17 19:59 03/21/17 07:00 2.5 ML Voriconazole (Vfend Tab) 200 mg BID PO 03/19/17 21:00 03/26/17 20:59 03/21/17 08:10 200 MG Morphine Sulfate (Oramorph Sr Tab) 30 mg BID PO 03/19/17 21:21 04/02/17 21:20 03/21/17 08:19 30 MG Heparin Sodium (Porcine) (Heparin 100 Unit/ml 5ml Flush) 5 ml PRN PRN IV 03/20/17 00:15 04/19/17 00:14 Prednisone (PredniSONE TAB) 40 mg DAILY PO 03/20/17 09:00 04/19/17 08:59 03/21/17 08:09 40 MG Insulin Glargine (Lantus Solostar Pen) 18 units DAILY SC 03/21/17 09:00 04/20/17 08:59 03/21/17 08:19 18 UNITS Insulin Glargine (Lantus Solostar Pen) see protocol text HS SC 03/20/17 21:00 04/19/17 20:59 Cyclobenzaprine HCl (Flexeril Tab) 5 mg TID PRN PO 03/20/17 11:00 04/19/17 10:59 03/21/17 16:53 5 MG
--- NOTE | 2017-03-21 20:08 | Infectious Disease Progress Nt ---
Progress Note Date of Service Mar 21, 2017. 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 Cough and shortness of breath improved. No fever. All Other Systems: Reviewed and Negative Medications Current Inpatient Medications Medications (Trade) Dose Ordered Sig/Aram Route Start Time Stop Time Status Last Admin Dose Admin Miscellaneous Information (Consult Glycemic Management Pharmacy) 1 ea UD N/A 03/19/17 13:10 04/18/17 13:09 Ipratropium [place] (Atrovent 0.02% 0.5MG/2.5ML Neb) 0.5 mg Q6R INH 03/19/17 15:00 04/18/17 14:59 03/21/17 14:48 0.5 MG Levalbuterol (Xopenex 1.25MG/ 0.5ML Neb) 1.25 mg Q6R INH 03/19/17 15:00 04/18/17 14:59 03/21/17 14:48 1.25 MG Levofloxacin 750 mg/Prmx 150 ml @ 100 mls/hr Q24H IV 03/20/17 11:00 03/26/17 10:59 03/21/17 11:06 100 MLS/HR Glucose (Glucose 40% Gel) 15-30 GRAMS 15 GRAMS... UD PRN PO 03/19/17 13:30 04/18/17 13:29 Glucose (Glucose Chew Tab) 4-8 Tablets 4 Tabl... UD PRN PO 03/19/17 13:30 04/18/17 13:29 Dextrose (Dextrose 50% 50ML Syringe) 25-50ML OF 50% DW IV FOR... UD PRN IV 03/19/17 13:30 04/18/17 13:29 Glucagon (Glucagon Inj) 1 mg UD PRN SQ 03/19/17 13:30 04/18/17 13:29 Ioversol (Optiray 320) 125 ml UD PRN IV 03/19/17 13:30 03/23/17 13:29 Insulin Aspart (novoLOG ASPART) SLIDING SCALE ACHS SC 03/19/17 16:00 04/18/17 15:59 03/21/17 11:55 7 UNITS Arformoterol Tartrate (Brovana 15MCG/ 2ML Neb Soln) 15 mcg BIDR INH 03/19/17 20:00 04/18/17 19:59 03/21/17 19:25 15 MCG Calcium/Vitamin D (Caltrate Plus Tab) 1 tab QAM PO 03/20/17 09:00 04/19/17 08:59 03/21/17 08:09 1 TAB Citalopram Hydrobromide (celeXA TAB) 40 mg DAILY PO 03/20/17 09:00 04/19/17 08:59 03/21/17 08:10 40 MG Morphine Sulfate (Roxanol Oral Soln) 5 mg Q4 PRN PO 03/19/17 13:45 04/02/17 13:44 03/21/17 16:54 5 MG Pantoprazole Sodium (Protonix Tab) 40 mg DAILY PO 03/20/17 09:00 04/19/17 08:59 03/21/17 08:10 40 MG Roflumilast (Daliresp Tab) 500 mcg QAM PO 03/20/17 09:00 04/19/17 08:59 03/21/17 08:10 500 MCG Cyanocobalamin (Vitamin B-12 Tab) 1,000 mcg QAM PO 03/20/17 09:00 04/19/17 08:59 03/21/17 08:10 1,000 MCG Ranitidine HCl (zANTac TAB) 150 mg BID PO 03/19/17 21:00 04/18/17 20:59 03/21/17 08:09 150 MG Polyethylene (Miralax Powder Packet) 17 gm DAILY PRN PO 03/19/17 13:45 04/18/17 13:44 Cefepime HCl 2000 mg/Syringe 20 ml @ 5 mls/min Q8H IV 03/19/17 18:00 03/26/17 17:59 03/21/17 09:40 5 MLS/MIN Enoxaparin Sodium (Lovenox Inj) 40 mg Q24H SQ 03/20/17 17:00 04/19/17 16:59 03/20/17 17:09 40 MG Dornase Venkat (Pulmozyme Inhalation Soln 2.5ml Amp) 2.5 ml BIDR INH 03/19/17 20:00 04/18/17 19:59 03/21/17 19:25 2.5 ML Voriconazole (Vfend Tab) 200 mg BID PO 03/19/17 21:00 03/26/17 20:59 03/21/17 08:10 200 MG Morphine Sulfate (Oramorph Sr Tab) 30 mg BID PO 03/19/17 21:21 04/02/17 21:20 03/21/17 08:19 30 MG Heparin Sodium (Porcine) (Heparin 100 Unit/ml 5ml Flush) 5 ml PRN PRN IV 03/20/17 00:15 04/19/17 00:14 Prednisone (PredniSONE TAB) 40 mg DAILY PO 03/20/17 09:00 04/19/17 08:59 03/21/17 08:09 40 MG Insulin Glargine (Lantus Solostar Pen) 18 units DAILY SC 03/21/17 09:00 04/20/17 08:59 03/21/17 08:19 18 UNITS Insulin Glargine (Lantus Solostar Pen) see protocol text HS SC 03/20/17 21:00 04/19/17 20:59 Cyclobenzaprine HCl (Flexeril Tab) 5 mg TID PRN PO 03/20/17 11:00 04/19/17 10:59 03/21/17 16:53 5 MG Objective Vital Signs Date Time Temp Pulse Resp B/P (MAP) Pulse Ox O2 Delivery O2 Flow Rate FiO2 03/21/17 19:25 70 18 96 Nasal Cannula 3.0 03/21/17 19:08 36.8 70 20 178/73 (108) 96 Nasal Cannula 3.0 03/21/17 15:16 37.0 82 20 170/68 (102) 95 Nasal Cannula 3.0 03/21/17 14:49 79 18 96 Nasal Cannula 3.0 03/21/17 12:18 36.9 83 18 137/62 (87) 93 Nasal Cannula 3.0 03/21/17 12:00 Nasal Cannula 3.0 03/21/17 08:14 36.9 86 16 116/48 (70) 95 Nasal Cannula 3.0 03/21/17 08:00 Nasal Cannula 3.0 03/21/17 07:00 75 18 97 Nasal Cannula 3.0 03/21/17 04:00 Nasal Cannula 3.0 03/21/17 03:55 37.0 90 19 157/62 (93) 96 Nasal Cannula 3.0 03/21/17 01:57 82 18 95 Nasal Cannula 3.0 03/21/17 00:19 37.3 85 20 148/57 (87) 94 Nasal Cannula 4.0 03/21/17 00:00 Nasal Cannula 3.0 Physical Exam General Appearance: WD/WN, no apparent distress Eyes: normal inspection, EOMI, sclerae normal ENT: normal ENT inspection, pharynx normal Neck: supple, no adenopathy, trachea midline Respiratory/Chest: chest non-tender, lungs clear, no respiratory distress, + decreased breath sounds Cardiovascular: regular rate, rhythm, no gallop, no murmur Abdomen: normal bowel sounds, non tender, soft, no organomegaly Extremities: non-tender, no calf tenderness Neurologic/Psychiatric: alert, normal mood/affect, oriented x 3 Skin: normal color, no rash Lymphatic: no adenopathy Laboratory Results Last 24 Hours Test 03/20/17 20:31 03/21/17 06:34 03/21/17 11:31 03/21/17 16:32 Bedside Glucose 165 mg/dl 113 mg/dl 126 mg/dl 163 mg/dl Assessment and Plan 62-year-old female with longstanding COPD with alpha-1 antitrypsin deficiency now with evidence of new pneumonia. Agree with broad-spectrum antibiotic therapy along with voriconazole for possible Aspergillus infection pending further culture and serology results. Course of IV antibiotics will be determined by clinical response, we will discuss with all involved.
[2017-03-21] MEDS: INSULIN GLARGINE SOLOSTAR 100 UNITS/ML 3 ML PEN SC SCH (21:33)
[2017-03-22] VITALS (10 sets, daily range): BP systolic 124–187; BP diastolic 43–101; PULSE 60–93; TEMP 36.7–37.2; O2SAT 93–98
[2017-03-22] MEDS ORDERED: LORAZEPAM 0.5 MG TAB PO STA ×2 (01:22→23:51)
[2017-03-22] MEDS: CEFEPIME IV 2,000 MG in SYRINGE 7.5 ML IV SCH ×3 (02:25→17:32)
[2017-03-22] MEDS: LEVALBUTEROL 1.25MG/0.5ML NEB INH SCH ×4 (03:00→19:03)
[2017-03-22] MEDS: IPRATROPIUM BROMIDE NEB SOLN 0.02% 2.5 ML VIAL INH SCH ×4 (03:00→19:02)
[2017-03-22] MEDS: MoRPHine SULFATE 5 MG/0.25 ML UDP PO PRN ×4 (06:00→23:41)
[2017-03-22 06:41] LABS: HEMATOCRIT 29.1 % (37-47); MEAN CELL VOLUME 89.5 fL (80-100); MEAN CORPUSCULAR HGB CONC 31.3 g/dl (32-36); MEAN PLATELET VOLUME 9.7 fL (7.4-10.4); PLATELET COUNT 159 K/uL (130-400); RED BLOOD COUNT 3.25 M/uL (4.2-5.4); WHITE BLOOD COUNT 17.26 K/uL (4.8-10.8)
[2017-03-22] MEDS: ARFORMOTEROL TART 15MCG/2ML VIAL INH SCH ×2 (06:58→18:58)
[2017-03-22] MEDS: DORNASE ALFA (2500U) 2.5MG/2.5ML INH SCH ×2 (06:58→18:58)
[2017-03-22 07:16] LABS: CREATININE 0.92 mg/dl (0.60-1.20)
--- NOTE | 2017-03-22 07:29 | Pharmacy Progress Note ---
Pharmacy Glycemic Short Note 2 Date of Service Mar 22, 2017. OUTPATIENT ANTIDIABETIC REGIMEN: * Basaglar (insulin glargine U-100) 12 units SQ BID * NovoLog 5 units SQ TIDM ASSESSMENT: * See progress note from 03/19 for more background info, in short: * Pt has received ~36 units of insulin over the past 24hrs. * Overall needs have continued to trend down as effects of Solumedrol 125 mg IV bolus in ED on admission dissipate * She is continued on Prednisone 40 mg PO daily * Fasting BSG <100 mg/dL: Reduce basal insulin today * Continue stress of 3 Novolog as steroids have their most profound effects on prandial BSGs PLAN FOR INPATIENT GLYCEMIC CONTROL: * Basal insulin: decrease dose * Lantus 15 units SQ daily in AM * Bolus insulin * NovoLog per scale ACHS or Q6hrs while NPO * Goal Range: Low 110 mg/dL - High 140 mg/dL * Correction Factor: 20 mg/dL/unit * Nutritional / Prandial insulin per carb ratio of 1 unit per 7 grams CHO consumed PLAN FOR DISCHARGE: * A1c = 6.1% 03/2017 * Patient may be experiencing hypoglycemia as an outpatient with this low A1c * Pt requiring lower than outpatient dosing in house despite prednisone which would increase insulin needs. * May consider changing outpatient basal insulin (Basaglar 12 units) to just once daily instead of BID
[2017-03-22] MEDS: INSULIN ASPART 100 UNITS/ML 3 ML PEN SC SCH ×4 (08:13→20:32)
[2017-03-22] MEDS: ROFLUMILAST 500 MCG TAB PO SCH (08:14)
[2017-03-22] MEDS: CITALOPRAM 40 MG TAB PO SCH (08:21)
[2017-03-22] MEDS: CYANOCOBALAMIN 500 MCG TAB (VIT B-12) PO SCH (08:21)
[2017-03-22] MEDS: PANTOprazole SOD 40 MG TAB PO SCH (08:21)
[2017-03-22] MEDS: VORICONAZOLE 200 MG TAB PO SCH ×2 (08:22→20:47)
[2017-03-22] MEDS: RANITIDINE HCL 150 MG TAB PO SCH ×2 (08:22→20:48)
[2017-03-22] MEDS: CALCIUM 600MG + VIT D 400 IU TAB PO SCH (08:22)
[2017-03-22] MEDS: MoRPHine SULFATE CR 15 MG TAB (MS CONTIN) PO SCH ×2 (08:24→20:47)
[2017-03-22] MEDS ORDERED: INSULIN GLARGINE SOLOSTAR 100 UNITS/ML 3 ML PEN SC SCH (09:00)
[2017-03-22 10:29] LABS: LEGIONELLA ANTIGEN NOT DETECTED (NOT DETECTED)
[2017-03-22] MEDS: LEVOFLOXACIN / D5W 750 MG in PREMIXED IN D5W 150 ML IV SCH (10:41)
[2017-03-22] MEDS: ENOXAPARIN 40 MG/0.4 ML SYR SQ SCH (16:51)
--- NOTE | 2017-03-22 17:08 | Progress Note ---
Internal Med Progress Note Date of Service: Mar 22, 2017. Provider Documentation: SUBJECTIVE: resting comfortably afebrile has some cough sob improved slept ok wants to go home soon OBJECTIVE: Vital Signs-as noted below Exam: General-alert and oriented. Not in distress ENT-Normal hearing Neck-no neck masses Lungs-CTA b/l no wheezing or crackles Heart-S1 and S2 heard. Regular rate and rhythm, no murmurs Abdomen-Soft Bowel sounds present no tenderness present no distension Extremities-no edema no erythema. Neuro-alert and awake moves extremities Lab data as noted below. ASSESSMENT & PLAN: ACUTE ON CHRONIC RESPIRATORY FAILURE SECONDARY TO: COPD EXACERBATION FROM RIGHT SIDED PNEUMONIA improving cx negative so far mrsa swab negative galactomanan test pending on empiric broad spectrum antibiotics Levaquin and cefepime + Voriconazole to stop voriconazole if galactomannan test negative On Prednisone 40mg daily- will taper Nebs Pulmonary and ID consulted- appreciate inputs DM 2 hold oral meds ISS, Lantus HISTORY OF PE on Lovenox CHRONIC PAIN on Morphine DVT PROPH Lovenox FULL CODE DISPOSITION to be determined possible d/c in 1-2 days pt/ot lives at home with already on oxygen 22/11 Vital Signs: Date Time Temp Pulse Resp B/P (MAP) Pulse Ox O2 Delivery O2 Flow Rate FiO2 03/22/17 16:00 Nasal Cannula 3.0 03/22/17 15:15 36.9 90 20 156/101 (119) 97 Nasal Cannula 4.0 03/22/17 14:25 93 20 93 Nasal Cannula 4.0 03/22/17 12:00 Nasal Cannula 3.0 03/22/17 11:52 36.8 80 16 155/63 (93) 96 Nasal Cannula 4.0 03/22/17 08:14 36.7 75 24 124/81 (95) 95 Nasal Cannula 4.0 03/22/17 08:00 Nasal Cannula 3.0 03/22/17 07:07 77 18 96 Nasal Cannula 4.0 03/22/17 04:00 Nasal Cannula 4.0 03/22/17 03:30 37.2 72 16 154/43 (80) 93 Nasal Cannula 4.0 03/22/17 00:00 Nasal Cannula 4.0 03/21/17 23:30 37.1 75 18 169/74 (105) 96 Nasal Cannula 4.0 03/21/17 20:45 Nasal Cannula 3.0 03/21/17 19:25 70 18 96 Nasal Cannula 3.0 03/21/17 19:08 36.8 70 20 178/73 (108) 96 Nasal Cannula 3.0 Lab Results: Results Past 24 Hours Test 03/21/17 20:41 03/22/17 06:07 03/22/17 06:14 03/22/17 10:43 Range/Units Bedside Glucose 173 74 76 70-90 mg/dl White Blood Count 17.26 4.8-10.8 K/uL Red Blood Count 3.25 4.2-5.4 M/uL Hemoglobin 9.1 12.0-16.0 g/dL Hematocrit 29.1 37-47 % Mean Corpuscular Volume 89.5 80-100 fL Mean Corpuscular Hemoglobin 28.0 25-34 pg Mean Corpuscular Hemoglobin Concent 31.3 32-36 g/dl RDW Standard Deviation 47.0 36.4-46.3 fL RDW Coefficient of Variation 14.2 11.5-14.5 % Platelet Count 159 130-400 K/uL Mean Platelet Volume 9.7 7.4-10.4 fL Creatinine 0.92 0.60-1.20 mg/dl Est Creatinine Clear Calc Drug Dose 63.6 ml/min Estimated GFR () 77.3 Estimated GFR (Non- 66.7 Test 03/22/17 16:12 Range/Units Bedside Glucose 152 70-90 mg/dl
--- NOTE | 2017-03-22 18:45 | Infectious Disease Progress Nt ---
Progress Note Date of Service Mar 22, 2017. Subjective Pt evaluation today including: conversation w/ patient, physical exam, chart review, lab review, review of studies, conversation w/ clinical science consultant, review of inpatient medication list Patient offering no new complaints today. Cough and shortness of breath better. Remains afebrile. All Other Systems: Reviewed and Negative Medications Current Inpatient Medications Medications (Trade) Dose Ordered Sig/Aram Route Start Time Stop Time Status Last Admin Dose Admin Miscellaneous Information (Consult Glycemic Management Pharmacy) 1 ea UD N/A 03/19/17 13:10 04/18/17 13:09 Ipratropium [place] (Atrovent 0.02% 0.5MG/2.5ML Neb) 0.5 mg Q6R INH 03/19/17 15:00 04/18/17 14:59 03/22/17 14:20 0.5 MG Levalbuterol (Xopenex 1.25MG/ 0.5ML Neb) 1.25 mg Q6R INH 03/19/17 15:00 04/18/17 14:59 03/22/17 14:20 1.25 MG Levofloxacin 750 mg/Prmx 150 ml @ 100 mls/hr Q24H IV 03/20/17 11:00 03/26/17 10:59 03/22/17 10:41 100 MLS/HR Glucose (Glucose 40% Gel) 15-30 GRAMS 15 GRAMS... UD PRN PO 03/19/17 13:30 04/18/17 13:29 Glucose (Glucose Chew Tab) 4-8 Tablets 4 Tabl... UD PRN PO 03/19/17 13:30 04/18/17 13:29 Dextrose (Dextrose 50% 50ML Syringe) 25-50ML OF 50% DW IV FOR... UD PRN IV 03/19/17 13:30 04/18/17 13:29 Glucagon (Glucagon Inj) 1 mg UD PRN SQ 03/19/17 13:30 04/18/17 13:29 Ioversol (Optiray 320) 125 ml UD PRN IV 03/19/17 13:30 03/23/17 13:29 Insulin Aspart (novoLOG ASPART) SLIDING SCALE ACHS SC 03/19/17 16:00 04/18/17 15:59 03/22/17 16:52 9 UNITS Arformoterol Tartrate (Brovana 15MCG/ 2ML Neb Soln) 15 mcg BIDR INH 03/19/17 20:00 04/18/17 19:59 03/22/17 06:58 15 MCG Calcium/Vitamin D (Caltrate Plus Tab) 1 tab QAM PO 03/20/17 09:00 04/19/17 08:59 03/22/17 08:22 1 TAB Citalopram Hydrobromide (celeXA TAB) 40 mg DAILY PO 03/20/17 09:00 04/19/17 08:59 03/22/17 08:21 40 MG Morphine Sulfate (Roxanol Oral Soln) 5 mg Q4 PRN PO 03/19/17 13:45 04/02/17 13:44 03/22/17 13:19 5 MG Pantoprazole Sodium (Protonix Tab) 40 mg DAILY PO 03/20/17 09:00 04/19/17 08:59 03/22/17 08:21 40 MG Roflumilast (Daliresp Tab) 500 mcg QAM PO 03/20/17 09:00 04/19/17 08:59 03/22/17 08:14 500 MCG Cyanocobalamin (Vitamin B-12 Tab) 1,000 mcg QAM PO 03/20/17 09:00 04/19/17 08:59 03/22/17 08:21 1,000 MCG Ranitidine HCl (zANTac TAB) 150 mg BID PO 03/19/17 21:00 04/18/17 20:59 03/22/17 08:22 150 MG Polyethylene (Miralax Powder Packet) 17 gm DAILY PRN PO 03/19/17 13:45 04/18/17 13:44 Cefepime HCl 2000 mg/Syringe 20 ml @ 5 mls/min Q8H IV 03/19/17 18:00 03/26/17 17:59 03/22/17 17:32 5 MLS/MIN Enoxaparin Sodium (Lovenox Inj) 40 mg Q24H SQ 03/20/17 17:00 04/19/17 16:59 03/22/17 16:51 40 MG Dornase Venkta (Pulmozyme Inhalation Soln 2.5ml Amp) 2.5 ml BIDR INH 03/19/17 20:00 04/18/17 19:59 03/22/17 06:58 2.5 ML Voriconazole (Vfend Tab) 200 mg BID PO 03/19/17 21:00 03/26/17 20:59 03/22/17 08:22 200 MG Morphine Sulfate (Oramorph Sr Tab) 30 mg BID PO 03/19/17 21:21 04/02/17 21:20 03/22/17 08:24 30 MG Heparin Sodium (Porcine) (Heparin 100 Unit/ml 5ml Flush) 5 ml PRN PRN IV 03/20/17 00:15 04/19/17 00:14 Prednisone (PredniSONE TAB) 40 mg DAILY PO 03/20/17 09:00 04/19/17 08:59 03/22/17 08:21 40 MG Cyclobenzaprine HCl (Flexeril Tab) 5 mg TID PRN PO 03/20/17 11:00 04/19/17 10:59 03/21/17 16:53 5 MG Objective Vital Signs Date Time Temp Pulse Resp B/P (MAP) Pulse Ox O2 Delivery O2 Flow Rate FiO2 03/22/17 16:00 Nasal Cannula 3.0 03/22/17 15:15 36.9 90 20 156/101 (119) 97 Nasal Cannula 4.0 03/22/17 14:25 93 20 93 Nasal Cannula 4.0 03/22/17 12:00 Nasal Cannula 3.0 03/22/17 11:52 36.8 80 16 155/63 (93) 96 Nasal Cannula 4.0 03/22/17 08:14 36.7 75 24 124/81 (95) 95 Nasal Cannula 4.0 03/22/17 08:00 Nasal Cannula 3.0 03/22/17 07:07 77 18 96 Nasal Cannula 4.0 03/22/17 04:00 Nasal Cannula 4.0 03/22/17 03:30 37.2 72 16 154/43 (80) 93 Nasal Cannula 4.0 03/22/17 00:00 Nasal Cannula 4.0 03/21/17 23:30 37.1 75 18 169/74 (105) 96 Nasal Cannula 4.0 03/21/17 20:45 Nasal Cannula 3.0 03/21/17 19:25 70 18 96 Nasal Cannula 3.0 03/21/17 19:08 36.8 70 20 178/73 (108) 96 Nasal Cannula 3.0 Physical Exam General Appearance: WD/WN, no apparent distress Eyes: normal inspection, EOMI, sclerae normal ENT: normal ENT inspection, pharynx normal Neck: supple, no adenopathy, trachea midline Respiratory/Chest: chest non-tender, lungs clear, normal breath sounds, no respiratory distress Cardiovascular: no gallop, no murmur Abdomen: normal bowel sounds, non tender, soft, no organomegaly Extremities: non-tender, no calf tenderness Neurologic/Psychiatric: alert, oriented x 3 Skin: normal color, no rash Lymphatic: no adenopathy Laboratory Results Last 24 Hours Test 03/21/17 20:41 03/22/17 06:07 03/22/17 06:14 03/22/17 10:43 Bedside Glucose 173 mg/dl 74 mg/dl 76 mg/dl White Blood Count 17.26 K/uL Red Blood Count 3.25 M/uL Hemoglobin 9.1 g/dL Hematocrit 29.1 % Mean Corpuscular Volume 89.5 fL Mean Corpuscular Hemoglobin 28.0 pg Mean Corpuscular Hemoglobin Concent 31.3 g/dl RDW Standard Deviation 47.0 fL RDW Coefficient of Variation 14.2 % Platelet Count 159 K/uL Mean Platelet Volume 9.7 fL Creatinine 0.92 mg/dl Est Creatinine Clear Calc Drug Dose 63.6 ml/min Estimated GFR () 77.3 Estimated GFR (Non- 66.7 Test 03/22/17 16:12 Bedside Glucose 152 mg/dl Assessment and Plan 62-year-old female with longstanding COPD with alpha-1 antitrypsin deficiency now with evidence of new pneumonia. Agree with broad-spectrum antibiotic therapy along with voriconazole for possible Aspergillus infection pending further culture and serology results. Course of IV antibiotics will be determined by clinical response, we will discuss with all involved.
--- NOTE | 2017-03-22 20:58 | Pulmonology Progress Note ---
Pulmonary Progress Note Date of Service Mar 22, 2017. Attending Dr. Mccartney Subjective Patient seen and examined this afternoon. She states that she's feeling much better. Feeling less short of breath, decreased cough. Awaiting discharge tomorrow. Objective VS reviewed. Gen: AAOx3, NAD, able to speak in full sentences Resp: Good air entry bilaterally Card: S1-S2 distant heart sounds but regular rate and rhythm Abd: Positive bowel sounds, soft, nontender Ext: Minimal edema bilateral dependent regions Labs reviewed. No new CBC today. Last WBC 21 on 03/20/2017 WBC 17, down from 21 on 03/20/2017 Urine legionella Ag-pending Mycoplasma pneumonia IgM-- pending Previous studies Mycoplasma pneumonia 03/07/2017: Negative Urine Legionella antigen: Not detected Aspergillus Flavus antibiotic: Negative Aspergillus fumigatus antibody: Negative Aspergillus [place] antibody negative Jaup-E-Hmlsoa ab: Negative B-D-Glucan: <31 MRSA nasal swab negative Active pulmonary Medications: 1. Lovenox 40 mg subcu 2. Levofloxacin 750 mg 3. Protonix 40 mg 4. Daliresp 500 mcg 5. Vancomycin 125 mg IV Q 18 hours 6. Ranitidine 150 mg b.i.d. 7. Voriconazole 200 mg b.i.d. 8. Brovana 15 mcg b.i.d. nebulized 9. Dornase 2.5 mL nebulized b.i.d. 10. Cefepime 2 g q.8 hours IV 11. Xopenex/Atrovent nebulizers Q 6 hours 12. Prednisone 40 mg daily Assessment & Plan Acute on chronic hypoxic respiratory failure COPD secondary to alpha 1 antitrypsin deficiency HCAP - lingula/LLL Back/chest pain--improved. Mrs. Lanier appears to be improving from a respiratory standpoint. At this time we will continue supplementation oxygenation. She is at her baseline of 3-4L/min. Continue with prednisone 40 mg daily. This will likely be tapered an outpatient. Continue with Daliresp, Brovana, Xopenex/Atrovent nebulizers. Daliresp, Brovana, Xopenex/Atrovent nebulizers. Prior discharge, outpatient inhaler should be resumed. We will continue to treat for HCAP with cefipime and levoquin. We are empirically treating for fungal infection voriconazole. If galatomannan and beta D glucan are negative will discontinue. Vancomycin has been discontinued. f/u urine legionella Ag and mycoplasma IgM. Patient left back/shoulder and chest pain--improved. Continue with cyclobenaprine prn. I appreciate the consult and will sign off case today. Data Medications: Current Inpatient Medications Medications (Trade) Dose Ordered Sig/Aram Route Start Time Stop Time Status Last Admin Dose Admin Miscellaneous Information (Consult Glycemic Management Pharmacy) 1 ea UD N/A 03/19/17 13:10 04/18/17 13:09 Ipratropium [place] (Atrovent 0.02% 0.5MG/2.5ML Neb) 0.5 mg Q6R INH 03/19/17 15:00 04/18/17 14:59 03/22/17 14:20 0.5 MG Levalbuterol (Xopenex 1.25MG/ 0.5ML Neb) 1.25 mg Q6R INH 03/19/17 15:00 04/18/17 14:59 03/22/17 14:20 1.25 MG Levofloxacin 750 mg/Prmx 150 ml @ 100 mls/hr Q24H IV 03/20/17 11:00 03/26/17 10:59 03/22/17 10:41 100 MLS/HR Glucose (Glucose 40% Gel) 15-30 GRAMS 15 GRAMS... UD PRN PO 03/19/17 13:30 04/18/17 13:29 Glucose (Glucose Chew Tab) 4-8 Tablets 4 Tabl... UD PRN PO 03/19/17 13:30 04/18/17 13:29 Dextrose (Dextrose 50% 50ML Syringe) 25-50ML OF 50% DW IV FOR... UD PRN IV 03/19/17 13:30 04/18/17 13:29 Glucagon (Glucagon Inj) 1 mg UD PRN SQ 03/19/17 13:30 04/18/17 13:29 Ioversol (Optiray 320) 125 ml UD PRN IV 03/19/17 13:30 03/23/17 13:29 Insulin Aspart (novoLOG ASPART) SLIDING SCALE ACHS SC 03/19/17 16:00 04/18/17 15:59 03/22/17 14:11 6 UNITS Arformoterol Tartrate (Brovana 15MCG/ 2ML Neb Soln) 15 mcg BIDR INH 03/19/17 20:00 04/18/17 19:59 03/22/17 06:58 15 MCG Calcium/Vitamin D (Caltrate Plus Tab) 1 tab QAM PO 03/20/17 09:00 04/19/17 08:59 03/22/17 08:22 1 TAB Citalopram Hydrobromide (celeXA TAB) 40 mg DAILY PO 03/20/17 09:00 04/19/17 08:59 03/22/17 08:21 40 MG Morphine Sulfate (Roxanol Oral Soln) 5 mg Q4 PRN PO 03/19/17 13:45 04/02/17 13:44 03/22/17 13:19 5 MG Pantoprazole Sodium (Protonix Tab) 40 mg DAILY PO 03/20/17 09:00 04/19/17 08:59 03/22/17 08:21 40 MG Roflumilast (Daliresp Tab) 500 mcg QAM PO 03/20/17 09:00 04/19/17 08:59 03/22/17 08:14 500 MCG Cyanocobalamin (Vitamin B-12 Tab) 1,000 mcg QAM PO 03/20/17 09:00 04/19/17 08:59 03/22/17 08:21 1,000 MCG Ranitidine HCl (zANTac TAB) 150 mg BID PO 03/19/17 21:00 04/18/17 20:59 03/22/17 08:22 150 MG Polyethylene (Miralax Powder Packet) 17 gm DAILY PRN PO 03/19/17 13:45 04/18/17 13:44 Cefepime HCl 2000 mg/Syringe 20 ml @ 5 mls/min Q8H IV 03/19/17 18:00 03/26/17 17:59 03/22/17 10:22 5 MLS/MIN Enoxaparin Sodium (Lovenox Inj) 40 mg Q24H SQ 03/20/17 17:00 04/19/17 16:59 03/21/17 18:17 40 MG Dornase Ven[place] (Pulmozyme Inhalation Soln 2.5ml Amp) 2.5 ml BIDR INH 03/19/17 20:00 04/18/17 19:59 03/22/17 06:58 2.5 ML Voriconazole (Vfend Tab) 200 mg BID PO 03/19/17 21:00 03/26/17 20:59 03/22/17 08:22 200 MG Morphine Sulfate (Oramorph Sr Tab) 30 mg BID PO 03/19/17 21:21 04/02/17 21:20 03/22/17 08:24 30 MG Heparin Sodium (Porcine) (Heparin 100 Unit/ml 5ml Flush) 5 ml PRN PRN IV 03/20/17 00:15 04/19/17 00:14 Prednisone (PredniSONE TAB) 40 mg DAILY PO 03/20/17 09:00 04/19/17 08:59 03/22/17 08:21 40 MG Cyclobenzaprine HCl (Flexeril Tab) 5 mg TID PRN PO 03/20/17 11:00 04/19/17 10:59 03/21/17 16:53 5 MG I & O: 24-Hour Column 03/23/17 08:00 Intake Total 410 ml Balance 410 ml Vital Signs: Date Time Temp Pulse Resp B/P (MAP) Pulse Ox O2 Delivery O2 Flow Rate FiO2 03/22/17 15:15 36.9 90 20 156/101 (119) 97 Nasal Cannula 4.0 03/22/17 14:25 93 20 93 Nasal Cannula 4.0 03/22/17 12:00 Nasal Cannula 3.0 03/22/17 11:52 36.8 80 16 155/63 (93) 96 Nasal Cannula 4.0 03/22/17 08:14 36.7 75 24 124/81 (95) 95 Nasal Cannula 4.0 03/22/17 08:00 Nasal Cannula 3.0 03/22/17 07:07 77 18 96 Nasal Cannula 4.0 03/22/17 04:00 Nasal Cannula 4.0 03/22/17 03:30 37.2 72 16 154/43 (80) 93 Nasal Cannula 4.0 03/22/17 00:00 Nasal Cannula 4.0 03/21/17 23:30 37.1 75 18 169/74 (105) 96 Nasal Cannula 4.0 03/21/17 20:45 Nasal Cannula 3.0 03/21/17 19:25 70 18 96 Nasal Cannula 3.0 03/21/17 19:08 36.8 70 20 178/73 (108) 96 Nasal Cannula 3.0 03/21/17 16:00 95 Nasal Cannula 3.0 Laboratory Results: Last 24 Hours Test 03/21/17 16:32 03/21/17 20:41 03/22/17 06:07 03/22/17 06:14 Bedside Glucose 163 mg/dl 173 mg/dl 74 mg/dl White Blood Count 17.26 K/uL Red Blood Count 3.25 M/uL Hemoglobin 9.1 g/dL Hematocrit 29.1 % Mean Corpuscular Volume 89.5 fL Mean Corpuscular Hemoglobin 28.0 pg Mean Corpuscular Hemoglobin Concent 31.3 g/dl RDW Standard Deviation 47.0 fL RDW Coefficient of Variation 14.2 % Platelet Count 159 K/uL Mean Platelet Volume 9.7 fL Creatinine 0.92 mg/dl Est Creatinine Clear Calc Drug Dose 63.6 ml/min Estimated GFR () 77.3 Estimated GFR (Non- 66.7
[2017-03-23] VITALS (7 sets, daily range): BP systolic 123–170; BP diastolic 57–88; PULSE 69–98; TEMP 36.9–37.4; O2SAT 95–98
[2017-03-23] MEDS: CEFEPIME IV 2,000 MG in SYRINGE 7.5 ML IV SCH ×2 (02:11→09:28)
[2017-03-23] MEDS: LEVALBUTEROL 1.25MG/0.5ML NEB INH SCH ×2 (02:45→07:02)
[2017-03-23] MEDS: IPRATROPIUM BROMIDE NEB SOLN 0.02% 2.5 ML VIAL INH SCH ×2 (02:45→07:02)
[2017-03-23] MEDS: ARFORMOTEROL TART 15MCG/2ML VIAL INH SCH (07:36)
[2017-03-23] MEDS: DORNASE ALFA (2500U) 2.5MG/2.5ML INH SCH (07:36)
[2017-03-23] MEDS: PANTOprazole SOD 40 MG TAB PO SCH (08:09)
[2017-03-23] MEDS: CYANOCOBALAMIN 500 MCG TAB (VIT B-12) PO SCH (08:09)
[2017-03-23] MEDS: CITALOPRAM 40 MG TAB PO SCH (08:09)
[2017-03-23] MEDS: RANITIDINE HCL 150 MG TAB PO SCH (08:09)
[2017-03-23] MEDS: VORICONAZOLE 200 MG TAB PO SCH (08:10)
[2017-03-23] MEDS: CALCIUM 600MG + VIT D 400 IU TAB PO SCH (08:10)
[2017-03-23] MEDS: ROFLUMILAST 500 MCG TAB PO SCH (08:10)
[2017-03-23] MEDS: INSULIN ASPART 100 UNITS/ML 3 ML PEN SC SCH (08:14)
[2017-03-23] MEDS: MoRPHine SULFATE CR 15 MG TAB (MS CONTIN) PO SCH (08:18)
[2017-03-23] MEDS ORDERED: INSULIN GLARGINE SOLOSTAR 100 UNITS/ML 3 ML PEN SC SCH (09:00)
[2017-03-23] MEDS: LEVOFLOXACIN / D5W 750 MG in PREMIXED IN D5W 150 ML IV SCH (10:26)
[2017-03-23] MEDS ORDERED: LEVO750T23 PO (11:00)
[2017-03-23] MEDS ORDERED: AMOX875T PO (11:00)
[2017-03-23] MEDS ORDERED: PRED10TA PO (11:00)
[2017-03-23] MEDS ORDERED: VFND200 PO (11:00)
--- NOTE | 2017-03-23 11:05 | Discharge Instructions ---
Discharge Instructions Date of Service Mar 23, 2017. Admission Reason for Admission: Pneumonia,Respiratory Failure Discharge Discharge Diagnosis / Problem: ACUTE RESP FAILURE, PNEUMONIA, COPD EX Discharge Goals Goal(s): Decrease discomfort, Improve function Activity Recommendations Activity Limitations: resume your previous activity . Instructions / Follow-Up Instructions / Follow-Up FOLLOWUP WITH FAMILY DOCTOR August Iverson ON Mar AT 10:45AM FOLLOWUP WITH PULMONARY IN 1-2 WEEKS ([facility], [address], [place] [address] ). TO CONTINUE VORICONAZOLE UNTIL SEEN BY . Current Hospital Diet Patient's current hospital diet: Diabetes Type 2 Diet Discharge Diet Recommended Diet: Diabetes Type 2 Diet Pending Studies Studies pending at discharge: yes List of pending studies: galatomannan and beta D glucan TEST Laboratory Results Hemoglobin A1c Test 03/07/17 04:55 Range/Units Estimated Average Glucose 128 mg/dl Hemoglobin A1c 6.1 H 4.5-5.6 % Medical Emergencies . Who to Call and When: Medical Emergencies: If at any time you feel your situation is an emergency, please call 911 immediately. . Non-Emergent Contact Non-Emergency issues call your: Primary Care Provider . . "Provider Documentation" section prepared by Lawrence Nicole. . VTE Core Measure Inpt VTE Proph given/why not?: SCD's
--- NOTE | 2017-03-23 17:57 | Progress Note ---
Internal Med Progress Note Date of Service: Mar 23, 2017. Provider Documentation: SUBJECTIVE: resting comfortably sob improved cough improved ambulating ok afebrile want to go home today OBJECTIVE: Vital Signs-as noted below Exam: General-alert and oriented. Not in distress ENT-Normal hearing Neck-no neck masses Lungs-CTA b/l no wheezing or crackles Heart-S1 and S2 heard. Regular rate and rhythm, no murmurs Abdomen-Soft Bowel sounds present no tenderness present no distension Extremities-no edema no erythema. Neuro-alert and awake moves extremities Lab data as noted below. ASSESSMENT & PLAN: ACUTE ON CHRONIC RESPIRATORY FAILURE SECONDARY TO: COPD EXACERBATION FROM RIGHT SIDED PNEUMONIA improving cx negative so far mrsa swab negative galactomanan test pending on empiric broad spectrum antibiotics Levaquin and cefepime#5 + Voriconazole to stop voriconazole if galactomannan test negative On Prednisone 40mg daily- taper Nebs Pulmonary and ID consulted- appreciate inputs discharged on po Levaquin and Augmentin for 3 more days discharged on voriconazole until seen by pulmonary in 1-2 weeks by then galactomannan test results should be available DM 2 hold oral meds ISS, Lantus d/c on home meds f/u with pcp HISTORY OF PE chronic CHRONIC PAIN on Morphine discharged home with home health Vital Signs: Date Time Temp Pulse Resp B/P (MAP) Pulse Ox O2 Delivery O2 Flow Rate FiO2 03/23/17 11:38 37.1 98 20 165/70 (101) 95 03/23/17 11:36 37.4 69 20 96 Nasal Cannula 03/23/17 08:00 Nasal Cannula 3.0 03/23/17 07:41 37.4 69 20 123/57 (79) 96 4.0 03/23/17 07:36 74 16 98 Nasal Cannula 4.0 03/23/17 04:00 Nasal Cannula 3.0 03/23/17 03:30 36.9 77 17 170/88 (115) 97 Nasal Cannula 4.0 03/23/17 02:47 96 16 95 Nasal Cannula 4.0 03/23/17 00:33 158/75 (102) 03/23/17 00:00 Nasal Cannula 3.0 03/22/17 23:45 170/76 (107) 03/22/17 23:30 37.2 60 16 187/94 (125) 94 Nasal Cannula 4.0 03/22/17 19:46 37.1 70 18 152/68 (96) 98 Nasal Cannula 4.0 03/22/17 19:30 Room Air 03/22/17 19:03 71 18 98 Nasal Cannula 4.0 Lab Results: Results Past 24 Hours Test 03/22/17 20:16 03/23/17 06:57 Range/Units Bedside Glucose 132 72 70-90 mg/dl
--- NOTE | 2017-03-23 18:06 | Discharge Summary ---
Discharge Summary Date of Service Mar 23, 2017. Discharge Summary Admission Date: Mar 19, 2017 at 12:55 Discharge Date: Mar 23, 2017 Discharge Disposition: Home with services Principal Diagnosis: ACUTE ON CHRONIC RESPIRATORY FAILURE SECONDARY TO: COPD EXACERBATION FROM RIGHT SIDED PNEUMONIA Secondary Diagnoses/Problems: 1) [id number] deficiency Status: Chronic (2) COPD (chronic obstructive pulmonary disease) Status: Chronic (3) Depression Status: Chronic (4) Diabetes type 2, controlled Status: Chronic (5) H/O lymphoma Status: Chronic (6) H/o PE Status: Chronic Procedures: cta chest; 1. No definite evidence for pulmonary embolus. 2. Patchy airspace opacities within the right mid to lower lung zone which are new from the prior study. Therefore, this is consistent with a pneumonia. 3. Emphysema. 4. Mild mediastinal and right hilar lymphadenopathy which has slightly progressed. This is likely reactive. Consultations: ID PULMONARY Medication Reconciliation New Medications: Amoxicillin & Pot Clavulanate (Augmentin 875-125 mg) 1 Tab Tab 875 MG PO BID for 3 Days, TAB Levofloxacin (Levaquin) 750 Mg Tab 1 TAB PO DAILY for 3 Days, #3 TAB Voriconazole (Voriconazole) 200 Mg Tab 200 MG PO BID for 15 Days, #30 TAB Continued Medications: Acetylcysteine (Acetylcysteine) 600 Mg Cap 600 MG PO BID, #60 CAP Albuterol Hfa (Ventolin Hfa) 200 Puffs/65582 Mcg Aers 2 PUFFS INH Q4 PRN for SOB/Wheezing, #1 INHALER Albuterol Sulf (Proventil 0.083% 2.5MG/3ML) 2.5 Mg/3 Ml Nebu 2.5 MG INH QID PRN for SOB/Wheezing, EA Arformoterol Tartrate (Brovana) 15 Mcg/2 Ml Neb 15 MCG INH BID, INHALER Calcium/Vitamin D (Os-Oliverio 500 Plus D) Tab 1 TAB PO QAM, 0 Refills Cholecalciferol (Vitamin D3) 1,000 Unit Tab 1 TAB PO DAILY for 90 Days, #90 TAB 3 Refills Citalopram Hydrobromide (Celexa) 40 Mg Tab 40 MG PO DAILY, TAB Cyanocobalamin (B-12) 1,000 Mcg Tab 1000 MCG PO QAM Fluticasone Furoate-Vilanterol (Breo Ellipta) 1 Inh Inh 1 PUFF INH DAILY Guaifenesin La (Guaifenesin Er) 600 Mg Tabcr 600 MG PO Q12H PRN for Cough, TAB Home O2 Therapy (Oxygen) Gas 5-6 LITER NA CONTINOUS Insulin Aspart (Novolog) 100 Units/Ml Inj 5 UNITS SQ TIDM PRN for PRN Insulin Glargine (Basaglar Kwikpen) 100 Unit/Ml Inj 12 UNITS SC BID Ipratropium [place] (Ipratropium [place]) 0.5 Mg/2.5 Ml Nebu 1 VIAL NEB QID for 30 Days, #300 ML 3 Refills Levalbuterol (Levalbuterol HCl) 1.25 Mg/3 Ml Nebu 3 ML NEB TID PRN for SOB/Wheezing Metformin HCl (Metformin HCl) 500 Mg Tab 500 MG PO BID Morphine Sulfate (Morphine Sulfate Er) 30 Mg Tab 30 MG PO BID Morphine Sulfate (Morphine Sulfate) 10 Mg/0.5 Ml Soln 5-10 MG PO Q4 PRN for breakthrough pain Pantoprazole (Pantoprazole Sodium) 40 Mg Tab 40 MG PO DAILY, #30 Polyethylene Glycol 3350 (Miralax) 1 Pow Pow 17 GM PO DAILY PRN for Consult, #527 GM Potassium Chloride (Micro-K Ext Rel) 10 Meq Capcr 20 MEQ PO QAM, CAP Prednisone (Prednisone) 5 Mg Tab 5 MG PO UD, #108 TAB 40mg([id number]), 35mg([id number]), 30mg([id number]), 25mg([id number]), 20mg([id number]), [id number], [id number], [id number] Ranitidine Hcl (Zantac) 300 Mg Tab 300 MG PO BID, TAB Roflumilast (Daliresp) 500 Mcg Tab 500 MCG PO QAM Tiotropium [place] (Spiriva Handihaler) 5 Puff/90 Mcg Aerp 1 PUFF INH QAM for 30 Days, #1 INHALER 6 Refills Admission Information HPI (per Admitting provider): 61 year old F with Alpha-1 antitrypsin deficiency, COPD, DM on insulin, musculoskeletal pain on narcotics at home, GERD who was discharged recently for hospitalization for COPD exacerbation and reports that the day after her discharge she was still feeling shortness of breath and subjective fever with documented fever on ED presentation 38.5 Celsius (101.3 F). Patient also tachycardic 116 bpm, with blood pressure trending down in the ED. Subsequent improved men in blood pressure after IV fluids, ED provider ordered 1.5 liters of fluid. Patient found to have on chest X ray a new right lower lobe airspace opacity consistent with a pneumonia. Patient denies vomiting or aspiration at home. No gastrointestinal complaints and has been able to make urine and stool normally. Patient was actively wheezing when assessed by hospitalist medicine physician but wheezing less audible after nebulizer treatments Physical Exam (per Admitting): General Appearance: WD/WN, no apparent distress Head: normocephalic, atraumatic Eyes: normal inspection, EOMI, sclerae normal ENT: normal ENT inspection, hearing grossly normal, pharynx normal Neck: supple, no JVD, trachea midline Respiratory/Chest: chest non-tender, + respiratory distress, + accessory muscle use, + wheezing Cardiovascular: no edema, no JVD, + tachycardia Abdomen/GI: normal bowel sounds, non tender, soft Back: normal inspection, normal range of motion, + pertinent finding (left shoulder blade area tenderness) Extremities/Musculoskelatal: normal inspection, no calf tenderness, normal capillary refill, no pedal edema, normal range of motion Neurologic/Psych: no motor/sensory deficits, alert, oriented x 3 Skin: normal color, warm/dry, no rash Hospital Course ACUTE ON CHRONIC RESPIRATORY FAILURE SECONDARY TO: COPD EXACERBATION FROM RIGHT SIDED PNEUMONIA improving cx negative so far mrsa swab negative galactomanan test pending on empiric broad spectrum antibiotics Levaquin and cefepime#5 + Voriconazole to stop voriconazole if galactomannan test negative On Prednisone 40mg daily- taper Nebs Pulmonary and ID consulted- appreciate inputs discharged on po Levaquin and Augmentin for 3 more days discharged on voriconazole until seen by pulmonary in 1-2 weeks by then galactomannan test results should be available DM 2 hold oral meds ISS, Lantus d/c on home meds f/u with pcp HISTORY OF PE chronic CHRONIC PAIN on Morphine discharged home with home health Total time spent on discharge = 35MINUTES This includes examination of the patient, discharge planning, medication reconciliation, and communication with other providers. Discharge Instructions Discharge Instructions Date of Service Mar 23, 2017. Admission Reason for Admission: Pneumonia,Respiratory Failure Discharge Discharge Diagnosis / Problem: ACUTE RESP FAILURE, PNEUMONIA, COPD EX Discharge Goals Goal(s): Decrease discomfort, Improve function Activity Recommendations Activity Limitations: resume your previous activity . Instructions / Follow-Up Instructions / Follow-Up FOLLOWUP WITH FAMILY DOCTOR August Iverson ON Mar AT 10:45AM FOLLOWUP WITH PULMONARY IN 1-2 WEEKS ([facility], [address], [place] [address] ). TO CONTINUE VORICONAZOLE UNTIL SEEN BY . Current Hospital Diet Patient's current hospital diet: Diabetes Type 2 Diet Discharge Diet Recommended Diet: Diabetes Type 2 Diet Pending Studies Studies pending at discharge: yes List of pending studies: galatomannan and beta D glucan TEST Laboratory Results Hemoglobin A1c Test 03/07/17 04:55 Range/Units Estimated Average Glucose 128 mg/dl Hemoglobin A1c 6.1 H 4.5-5.6 % Medical Emergencies . Who to Call and When: Medical Emergencies: If at any time you feel your situation is an emergency, please call 911 immediately. . Non-Emergent Contact Non-Emergency issues call your: Primary Care Provider . . "Provider Documentation" section prepared by Lawrence Nicole. . VTE Core Measure Inpt VTE Proph given/why not?: SCD's
== END 2017-03-23 11:59 | disposition home health service (06) | DRG 193 ==
LOC: C.EDB 10:28 → C.2E 12:55 → ENRESERV 13:37
PROVIDERS: ADMIT Hospitalist; ATTEND Internal Medicine
DX: J18.9 Pneumonia, unspecified organism (principal); J96.20 Acute and chronic respiratory failure, unspecified whether with hypoxia or hypercapnia; J44.1 Chronic obstructive pulmonary disease with (acute) exacerbation; F32.9 Major depressive disorder, single episode, unspecified; E11.9 Type 2 diabetes mellitus without complications; K21.9 Gastro-esophageal reflux disease without esophagitis; E83.42 Hypomagnesemia; M54.9 Dorsalgia, unspecified; I10 Essential (primary) hypertension; Z87.01 Personal history of pneumonia (recurrent); Z86.711 Personal history of pulmonary embolism; Z80.9 Family history of malignant neoplasm, unspecified

== ENCOUNTER 2017-04-29 10:55 | Inpatient (IN) | payer OTHER, BC ==
[~2017-04-29] VITALS: Ht 157.5 cm; Wt 86.4 kg
[~2017-04-29 10:55] MED LIST changes: +ALBINS/ INH; -ALBU1NEB10 INH; +VFND200 PO
[2017-04-29] MEDS ORDERED: ACETAMINOPHEN 500 MG TAB PO STA (11:15)
[2017-04-29] MEDS ORDERED: IPRATROPIUM BROMIDE NEB SOLN 0.02% 2.5 ML VIAL INH STA (11:15)
[2017-04-29] MEDS ORDERED: LEVALBUTEROL 1.25MG/0.5ML NEB INH STA (11:15)
[2017-04-29] MEDS ORDERED: CEFEPIME IV 2,000 MG in DEXTROSE 5% 100ML 100 ML IV STA (11:15)
[2017-04-29] MEDS ORDERED: SODIUM CHLORIDE 0.9% 500ML 500 ML IV STA (11:19)
--- NOTE | 2017-04-29 11:19 | EMERGENCY ROOM VISIT NOTE ---
History Report prepared by Ellie: Yash May Under the Supervision of: Dr. Luis Alfredo Fuentes M.D. First contact with patient: 11:10 Chief Complaint: FEVER Stated Complaint: FEVER, CHILLS, FAST HEART RATE History of Present Illness The patient is a 61 year old female with a history of COPD who presents to the Emergency Room with complaints of persistent fever that was detected at her doctor's office (Dr. Esposito) prior to arrival this morning. She states that she was at her doctor's office because she had been getting intermittent sharp pain down her left arm. The patient says that she had an x-ray which did not reveal anything. She states that over the past week, she has had a worsening cough and shortness of breath. She notes that she has had a sore throat as well. The patient says that she noticed that she was warm at the doctor's office after she was told that she had a fever, but she thinks the fever started today. The patient states that she does not usually get so winded so easily as she has been this week. The patient wears 4 liters of oxygen regularly. She denies any vomiting or diarrhea. She states that she has not taken anything for her fever today. The patient did get her flu shot this season. She is not currently on any antibiotics. Source of History: patient, spouse/significant other, nursing staff Onset: Detected prior to arrival this morning Position: other (global - fever) Timing: other (persistent) Associated Symptoms: + sorethroat, + cough (worsened), + SOB (worsened), No vomiting, No diarrhea Note: No other associated symptoms noted. Review of Systems See HPI for pertinent positives & negatives. A total of 10 systems reviewed and were otherwise negative. Past Medical & Surgical Medical Problems: (1) [id number] deficiency (2) COPD (chronic obstructive pulmonary disease) (3) Depression (4) Diabetes type 2, controlled (5) GERD (gastroesophageal reflux disease) (6) H/O lymphoma (7) H/o PE (8) Pneumonia (9) Respiratory failure (10) Respiratory failure, acute Surgical Problems: (1) History of back surgery (2) History of bronchoscopy (3) S/P SORAIDA (total abdominal hysterectomy) Family History Cancer Diabetes mellitus FATHER Lung disease FATHER BROTHER Social History Smoking Status: Former Smoker Alcohol Use: occasionally Drug Use: none Marital Status: Housing Status: lives with family Occupation Status: disabled Current/Historical Medications Scheduled Alpha1-Proteinase Inhibitor (H (Prolastin-C), Unknown Dose UNKNOWN DIRECTED Aspirin (Aspirin Ec), 81 MG PO DAILY Budesonide (Pulmicort Respules 0.5MG/2ML), 2 ML INH DAILY Budesonide (Nasal) (Rhinocort Allergy), 2 SPRAYS NA DAILY Calcium/Vitamin D (Os-Oliverio 500 Plus D), 1 TAB PO QAM Cholecalciferol (Vitamin D3), 1 TAB PO DAILY Citalopram Hydrobromide (Celexa), 40 MG PO DAILY Cyanocobalamin (B-12), 1,000 MCG PO QAM Fluticasone Furoate-Vilanterol (Breo Ellipta), 1 PUFF INH DAILY Gabapentin (Gabapentin), 100 MG PO TID Home O2 Therapy (Oxygen), 5-6 LITER NA CONTINOUS Insulin Glargine (Basaglar Kwikpen), 20 UNITS SQ HS Metformin HCl (Metformin HCl), 500 MG PO BID Morphine Sulfate (Morphine Sulfate Er), 30 MG PO BID Pantoprazole (Pantoprazole Sodium), 40 MG PO DAILY Potassium Chloride (Micro-K Ext Rel), 20 MEQ PO QAM Ranitidine Hcl (Zantac), 300 MG PO BID Roflumilast (Daliresp), 500 MCG PO QAM Tiotropium [place] (Spiriva Handihaler), 1 PUFF INH QAM Scheduled PRN Albuterol Hfa (Ventolin Hfa), 2 PUFFS INH Q4 PRN for SOB/Wheezing Cyclobenzaprine HCl (Cyclobenzaprine HCl), 5-10 MG PO BID PRN for Muscle Spasms Guaifenesin La (Guaifenesin Er), 600 MG PO Q12H PRN for Cough Ibuprofen (Motrin), 600 MG PO Q6H PRN for Pain Insulin Aspart (Novolog), 5 UNITS SQ TIDM PRN for PRN Morphine Sulfate (Morphine Sulfate), 5-10 MG PO Q4 PRN for breakthrough pain Polyethylene Glycol 3350 (Miralax), 17 GM PO DAILY PRN for Consult Miscellaneous Medications Morphine Sulfate-Sodium Chlori (Morphine Sulfate 0.5-0.9 mg/ml-%) Allergies Coded Allergies: Sulfamethoxazole w/Trimethoprim (Verified Allergy, Unknown, RASH, 04/29/17 ) Physical Exam Vital Signs Date Time Temp Pulse Resp B/P (MAP) Pulse Ox O2 Delivery O2 Flow Rate FiO2 04/29/17 13:39 36.9 107 22 134/61 93 Nasal Cannula 4.0 04/29/17 12:30 93 Nasal Cannula 4.0 04/29/17 12:20 113 04/29/17 10:59 38.3 119 26 135/57 95 Nasal Cannula 4.0 Physical Exam GENERAL: Patient is in no acute distress. HEENT: No acute trauma, normocephalic atraumatic, mucous membranes dry, no scleral icterus. No throat erythema or exudate. NECK: No stridor, no adenopathy, no meningismus, trachea is midline. LUNGS: Persistent dry cough. Wheezing bilaterally with diminished breath sounds bilaterally. Breath sounds are equal. HEART: Tachycardic and regular. No murmurs. ABDOMEN: Soft, nontender, bowel sounds positive, no hernias, no peritonitis. EXTREMITIES: No cyanosis or edema, full range of motion of all the joints without pain or difficulty, no signs for acute trauma. NEUROLOGIC: Oriented x 3, no acute motor or sensory deficits, no focal weakness. SKIN: No rash, no jaundice, no diaphoresis. Medical Decision & Procedures ER Provider Diagnostic Interpretation: X-ray results as stated below per interpretation by me and the radiologist: SINGLE VIEW CHEST CLINICAL HISTORY: Sepsis. FINDINGS: An AP, portable, upright chest radiograph is compared to chest x-ray and chest CT dated 03/19/2017. The examination is degraded by portable technique and patient rotation. A left subclavian central venous infusion port is unchanged in position. The heart is top normal for projection and there is atherosclerotic calcification of the thoracic aorta. The pulmonary vasculature is noncongested. Emphysema and chronic interstitial thickening are similar to previous. Bibasilar airspace opacities are noted. No large pleural effusion or pneumothorax is seen. The skeletal structures are osteopenic. The bony thorax is grossly intact. IMPRESSION: 1. Emphysema. 2. There are bibasilar airspace opacities, likely representing atelectasis. Correlate clinically for evidence of developing pneumonia/aspiration pneumonitis. Electronically signed by: Luis Alfredo Dickerson M.D. 04/29/2017 11:45 AM Dictated Date/Time: 04/29/2017 11:44 AM Laboratory Results 04/29/17 11:44 Red Blood Count 4.12, Mean Corpuscular Volume 85.2, Mean Corpuscular Hemoglobin 27.9, Mean Corpuscular Hemoglobin Concent 32.8, Mean Platelet Volume 9.2, Neutrophils (%) (Auto) 80.2, Lymphocytes (%) (Auto) 13.1, Monocytes (%) (Auto) 6.3, Eosinophils (%) (Auto) 0.2, Basophils (%) (Auto) 0.1, Neutrophils # (Auto) 11.15, Lymphocytes # (Auto) 1.82, Monocytes # (Auto) 0.87, Eosinophils # (Auto) 0.03, Basophils # (Auto) 0.01 04/29/17 11:44 Test 04/29/17 11:25 04/29/17 11:44 04/29/17 12:21 Influenza Type A (RT-PCR) Neg for Influ A (NEG) Influenza Type B (RT-PCR) Neg for Influ B (NEG) White Blood Count 13.90 K/uL (4.8-10.8) Red Blood Count 4.12 M/uL (4.2-5.4) Hemoglobin 11.5 g/dL (12.0-16.0) Hematocrit 35.1 % (37-47) Mean Corpuscular Volume 85.2 fL (80-100) Mean Corpuscular Hemoglobin 27.9 pg (25-34) Mean Corpuscular Hemoglobin Concent 32.8 g/dl (32-36) Platelet Count 201 K/uL (130-400) Mean Platelet Volume 9.2 fL (7.4-10.4) Neutrophils (%) (Auto) 80.2 % Lymphocytes (%) (Auto) 13.1 % Monocytes (%) (Auto) 6.3 % Eosinophils (%) (Auto) 0.2 % Basophils (%) (Auto) 0.1 % Neutrophils # (Auto) 11.15 K/uL (1.4-6.5) Lymphocytes # (Auto) 1.82 K/uL (1.2-3.4) Monocytes # (Auto) 0.87 K/uL (0.11-0.59) Eosinophils # (Auto) 0.03 K/uL (0-0.5) Basophils # (Auto) 0.01 K/uL (0-0.2) RDW Standard Deviation 41.2 fL (36.4-46.3) RDW Coefficient of Variation 13.3 % (11.5-14.5) Immature Granulocyte % (Auto) 0.1 % Immature Granulocyte # (Auto) 0.02 K/uL (0.00-0.02) Prothrombin Time 11.0 SECONDS (9.0-12.0) Prothromb Time International Ratio 1.0 (0.9-1.1) Activated Partial Thromboplast Time 25.4 SECONDS (21.0-31.0) Partial Thromboplastin Ratio 1.0 Anion Gap 6.0 mmol/L (3-11) Est Creatinine Clear Calc Drug Dose 64.0 ml/min Estimated GFR () 76.3 Estimated GFR (Non- 65.9 BUN/Creatinine Ratio 15.0 (10-20) Calcium Level 8.7 mg/dl (8.5-10.1) Total Bilirubin 0.5 mg/dl (0.2-1) Aspartate Amino Transf (AST/SGOT) 26 U/L (15-37) Alanine Aminotransferase (ALT/SGPT) 23 U/L (12-78) Alkaline Phosphatase 84 U/L (45-117) Total Protein 7.1 gm/dl (6.4-8.2) Albumin 3.3 gm/dl (3.4-5.0) Globulin 3.8 gm/dl (2.5-4.0) Albumin/Globulin Ratio 0.9 (0.9-2) Bedside Lactic Acid Venous 1.70 mmol/L (0.90-1.70) Laboratory results reviewed by me. Medications Administered Medications (Trade) Dose Ordered Sig/Aram Route Start Time Stop Time Status Last Admin Dose Admin Cefepime HCl 2000 mg/Dextrose 112.5 ml @ 200 mls/hr ONE STAT IV 04/29/17 11:15 04/29/17 11:48 DC 04/29/17 12:26 200 MLS/HR Acetaminophen (Tylenol Tab) 1,000 mg NOW STAT PO 04/29/17 11:15 04/29/17 11:19 DC 04/29/17 11:55 1,000 MG Levalbuterol (Xopenex 1.25MG/ 0.5ML Neb) 1.25 mg NOW STAT INH 04/29/17 11:15 04/29/17 11:19 DC 04/29/17 12:12 1.25 MG Ipratropium [place] (Atrovent 0.02% 0.5MG/2.5ML Neb) 0.5 mg NOW STAT INH 04/29/17 11:15 04/29/17 11:19 DC 04/29/17 11:55 0.5 MG Sodium Chloride 500 ml @ 999 mls/hr Q31M STAT IV 04/29/17 11:19 04/29/17 11:49 DC 04/29/17 11:56 999 MLS/HR ECG Indication: SOB/dyspnea Rate (beats per minute): 114 Rhythm: sinus tachycardia Findings: no acute ischemic change, no ectopy ED Course 1112: The patient was evaluated in room A3. A complete history and physical exam was performed. 1115: Ordered Atrovent 0.02% 0.5MG/2.5ML Neb 0.5 mg INH, Xopenex 1.25MG/0.5ML Neb 1.25 mg INH, Tylenol Tab 1000 mg PO, Cefepime HCl 2000 mg/Dextrose 112.5 ml @ 200 mls/hr IV. 1119: Ordered NSS 500 ml @ 999 mls/hr IV. 1234: Upon reexamination the patient is resting comfortably. I discussed results and treatment plan with the patient. She verbalizes agreement and understanding. The patient will be evaluated for further management. 1237: Discussed the patient's case with Olya Burdick. The patient will be evaluated for further management. Medical Decision Differential diagnosis includes but is not limited to influenza, flu-like illness, pneumonia or bronchitis, exacerbation of COPD, electrolyte imbalance, anemia, sepsis. There is a mild leukocytosis at 13,000, this could be consistent with infection. No concerning anemia. No significant electrolyte abnormality, kidney failure or hepatitis. Chest x-ray shows congestion of both bases, possibly atelectasis versus early infiltrate. No pneumothorax. Blood cultures are pending. EKG shows a sinus tachycardia, no acute ischemia. Lactic acid level is not elevated making sepsis less likely. Influenza testing is negative. The patient presents with increasing shortness of breath, fever and tachycardia. She has SIRS by exam and workup. The patient received IV saline, oral Tylenol, a Xopenex Atrovent neb. She was given IV cefepime as antibiotic coverage. I think the patient requires a hospital stay. She has SIRS criteria. She has known underlying lung disease. This may be an acute bronchitis with a flare of COPD, early pneumonia is a consideration as well. I did speak to the patient and the on-call hospitalist. Case management has been involved. Medication Reconcilliation Current Medication List: was personally reviewed by me Blood Pressure Screening Patient's blood pressure: Elevated blood pressure Blood pressure disposition: Elevated BP felt to be situational Consults Time Called: 1234 Consulting Physician: Olya Burdick Returned Call: [phone] Discussed the patient's case with Olya Burdick. The patient will be evaluated for further management. Impression Primary Impression: Acute bronchitis Additional Impressions: COPD exacerbation Fever SIRS (systemic inflammatory response syndrome) Scribe Attestation The scribe's documentation has been prepared under my direction and personally reviewed by me in its entirety. I confirm that the note above accurately reflects all work, treatment, procedures, and medical decision making performed by me. Departure Information Dispostion Being Evaluated By Hospitalist Referrals August Esposito MD (PCP) Patient Instructions [facility] Problem Qualifiers
[2017-04-29] MEDS ORDERED: ASPI81TA28 PO (11:45)
[2017-04-29] MEDS ORDERED: MORP1SOL (11:45)
[2017-04-29] MEDS ORDERED: NRN100 PO (11:45)
[2017-04-29] MEDS ORDERED: BUDE1SUS8 (11:45)
[2017-04-29] MEDS ORDERED: FLX/5 PO (11:45)
[2017-04-29] MEDS ORDERED: IBUP-1450 PO (11:45)
[2017-04-29] MEDS ORDERED: PLMINSR5 INH (11:45)
[2017-04-29] MEDS ORDERED: INSU100I23 SQ (11:45)
[2017-04-29] MEDS ORDERED: [UNRECOGNIZED DRUG - CODE] (11:45)
--- NOTE | 2017-04-29 11:47 | DIAGNOSTIC IMAGING REPORT ---
SINGLE VIEW CHEST CLINICAL HISTORY: Sepsis. FINDINGS: An AP, portable, upright chest radiograph is compared to chest x-ray and chest CT dated 03/19/2017. The examination is degraded by portable technique and patient rotation. A left subclavian central venous infusion port is unchanged in position. The heart is top normal for projection and there is atherosclerotic calcification of the thoracic aorta. The pulmonary vasculature is noncongested. Emphysema and chronic interstitial thickening are similar to previous. Bibasilar airspace opacities are noted. No large pleural effusion or pneumothorax is seen. The skeletal structures are osteopenic. The bony thorax is grossly intact. IMPRESSION: 1. Emphysema. 2. There are bibasilar airspace opacities, likely representing atelectasis. Correlate clinically for evidence of developing pneumonia/aspiration pneumonitis. Electronically signed by: Luis Alfredo Dickerson M.D. 04/29/2017 11:45 AM Dictated Date/Time: 04/29/2017 11:44 AM
[2017-04-29 12:09] LABS: BASO % 0.1 %; BASO ABS # 0.01 K/uL (0-0.2); EOS % 0.2 %; EOS ABS # 0.03 K/uL (0-0.5); HEMATOCRIT 35.1 % (37-47); HEMOGLOBIN 11.5 g/dL (12.0-16.0); IG# 0.02 K/uL (0.00-0.02); LYMPH % 13.1 %; LYMPH ABS # 1.82 K/uL (1.2-3.4); MEAN CELL VOLUME 85.2 fL (80-100); MEAN CORPUSCULAR HEMOGLOBIN 27.9 pg (25-34); MEAN CORPUSCULAR HGB CONC 32.8 g/dl (32-36); MEAN PLATELET VOLUME 9.2 fL (7.4-10.4); MONO % 6.3 %; MONO ABS # 0.87 K/uL (0.11-0.59); NEUT % 80.2 %; NEUT ABS # 11.15 K/uL (1.4-6.5); PLATELET COUNT 201 K/uL (130-400); RED CELL DISTRIBUTION WIDTH CV 13.3 % (11.5-14.5); RED CELL DISTRIBUTION WIDTH SD 41.2 fL (36.4-46.3)
[2017-04-29 12:18] LABS: PTT PATIENT 25.4 SECONDS (21.0-31.0)
[2017-04-29 12:29] LABS: ALBUMIN 3.3 gm/dl (3.4-5.0); CALCIUM 8.7 mg/dl (8.5-10.1); CREATININE 0.93 mg/dl (0.60-1.20); POTASSIUM 3.9 mmol/L (3.5-5.1)
[2017-04-29 12:31] LABS: TOTAL PROTEIN 7.1 gm/dl (6.4-8.2)
[2017-04-29 13:03] LABS: INFLUENZA A PCR Neg for Influ A (NEG); INFLUENZA B PCR Neg for Influ B (NEG)
[2017-04-29] MEDS ORDERED: ONDANSETRON INJ 2 MG/ML 2 ML VIAL IV PRN (13:45)
[2017-04-29] MEDS ORDERED: ALBUTEROL HFA 8 GM INHALER INH PRN (14:00)
[2017-04-29] MEDS ORDERED: POLYETHYLENE (MIRALAX) 17 GM PACK PO PRN (14:00)
[2017-04-29] MEDS ORDERED: CYCLOBENZAPRINE HCL 5 MG TAB PO PRN (14:00)
[2017-04-29] MEDS ORDERED: CEFEPIME IV 1,000 MG in DEXTROSE 5% 100ML 100 ML IV SCH (14:00)
[2017-04-29] MEDS ORDERED: MoRPHine SULFATE 2 MG/ML CARP IV STA (14:12)
--- NOTE | 2017-04-29 14:50 | HISTORY & PHYSICAL EXAMINATION ---
DATE OF ADMISSION: 04/29/2017 PRIMARY CARE PHYSICIAN: August Esposito MD CHIEF COMPLAINT: The patient went to the PCP's office today and was noted to have a high fever of 101 with tachycardia 130-140 range with increasing shortness of breath and was sent to the Emergency Room. HISTORY OF PRESENT COMPLAINT: She is a 61-year-old female with significant past medical history including COPD with chronic hypoxic respiratory failure, on O2 therapy; type 2 diabetes; esophageal reflux, on multiple medications; major depression; disk disorder, lumbar region; chronic pain, on narcotics; alpha 1 antitrypsin deficiency; and history of pulmonary embolism and also history of lymphoma. Apparently, she has had pneumonia in March. At that time, she was treated with cefepime and Levaquin. She went to see her primary care physician today and was noted to have fever of 101 at the office with a tachycardia of 140. On asking questions, she complained to have more shortness of breath and cough, but did not recognize any fever. She did not have any problem with urine or bowel habit, but she was sent to Emergency Room for further evaluation. She has chronic pain, which is not worse. She does not have any leg swelling. She does not have any numbness or tingling in the extremities and she does not have any other neurological symptoms. In the ER, she was noted to have a temperature of 38.3, heart rate went down to 107, saturation 93% on 4 liters and the chest x-ray did show possible bibasilar pneumonia. Her UA is still pending. She was started with cefepime and she was advised for admission. PAST MEDICAL HISTORY: Significant for type 2 diabetes, on insulin; severe COPD with chronic hypoxemic respiratory failure, on home O2; esophageal reflux; major depression; chronic pain in the lumbar region, on narcotics; chronic rhinitis; alpha 1 antitrypsin deficiency; history of pulmonary embolism and also history of lymphoma. PAST SURGICAL HISTORY: Significant for excision of soft tissue tumor forearm on the left side, lumbar spine fusion, Cervical spine fusion, salivary gland surgery, excision of soft tissue tumor on the shoulder, total abdominal hysterectomy. FAMILY HISTORY: Significant that father had diabetes. Brother has lung disorder with emphysema. Father had lung disorder too. Sister had AML. SOCIAL HISTORY: She is . She lives with her . She smoked about 1.5 packs per day for 25 years. She does not drink any alcohol. She has been reasonably mobile, does not require any device to walk around. ALLERGIES: BACTRIM. MEDICATIONS: As an outpatient, she has been on ibuprofen 600 mg q. 6 hourly p.r.n., metformin 500 mg b.i.d., alpha 1 proteinase inhibitor 1000 mg injection as directed, home O2 3-5-6 liters continuously, albuterol HFA 2 puffs q. 6 hourly p.r.n., aspirin 81 mg daily, Rhinocort 2 sprays each nostril daily, Pulmicort 2 mL via nebulized solution daily, calcium and vitamin D 500 plus 1 tablet daily, vitamin D3 1000 units daily, Celexa 40 mg daily, B12 1000 mcg daily, cyclobenzaprine 5-10 mg b.i.d. as needed, Breo Ellipta 1 inhalation daily, gabapentin 100 mg t.i.d., guaifenesin ER 600 mg q. 12 hours, NovoLog 5 units subQ 3 times daily, Lantus 20 units subQ at bedtime, morphine sulfate 5-10 mg p.o. q. 4 hourly p.r.n., morphine sulfate ER 30 mg b.i.d., Protonix 40 mg daily, MiraLax 17 grams daily, potassium 10 mEq tablet 2 tablets daily, Zantac 300 mg twice daily, Daliresp 500 mcg daily, and Spiriva HandiHaler 1 puff daily. REVIEW OF SYSTEMS: Twelve-system review is unremarkable except for those mentioned in the history of present complaint. PHYSICAL EXAMINATION: GENERAL: On examination in the Emergency Room, she was having moderate distress, shortness of breath at rest. VITAL SIGNS: Temperature 38.3, pulse was initially 119 and came down to 107, saturation 93% on 4 liters, blood pressure 134/61. HEENT: Unremarkable. NECK: Supple. No JVD, no bruit. CHEST: Decreased breath sounds with minimal wheezing anteriorly, minimal crackles at the bases. HEART: S1 and S2 regular. No murmur. ABDOMEN: Soft, benign, nontender, no organomegaly. Bowel sounds present. EXTREMITIES: Trace edema bilaterally. MUSCULOSKELETAL SYSTEM: Did not show any acute arthritis involving any joint. CENTRAL NERVOUS SYSTEM: She was alert, awake, oriented x3. She did not have any focal neuro deficit. LABORATORY DATA: Noted today, white count was 13.90, H&H 11.5/35.1, platelet was 201. Sodium 136, potassium 3.9, chloride 102, carbon dioxide 28, BUN 14, creatinine 0.93, random glucose 113, lactate was 1.70. LFTs normal. PT/INR unremarkable. Influenza A and B negative. Chest x-ray reported as bibasilar airspace opacities likely representing atelectasis, but clinical correlation was advised because it may be developing pneumonia/aspiration pneumonitis and she has emphysema as well. EKG was in sinus rhythm, rate of 114 per minute, normal axis and no significant ST-T wave abnormality. IMPRESSION AND PLAN: 1. Chronic obstructive pulmonary disease exacerbation with possible bibasilar pneumonia. She was started with intravenous cefepime. We will continue with that and add doxycycline for atypical coverage. She will be admitted to medical floor. We will continue with her inhalers and also add a small dose of intravenous Solu-Medrol. 2. Diabetes type 2, on insulin. We will hold her metformin, continue with her regular insulin doses while she is in the hospital and monitor blood sugar.Pharmacy glycemic control. 3. Esophageal reflux. She has been on PPI and also ranitidine. We will continue with that. 4. Chronic back pain. She still complains to have back pain; nothing different from the prior pain, as she has been on narcotics. We will continue with those medications while in the hospital. 5. Depression. She will continue with Celexa. 6. Deep venous thrombosis prophylaxis with subQ Lovenox. 7. Code status. As per her prior admission, she was full code, but the [facility] chart states DNR. We will have to address that issue again. In my clinical judgment, the beneficiary meets criteria as per CMS for 2 midnights' stay in the hospital. DA
[2017-04-29 14:54] VITALS: BP 108/60; PULSE 102; TEMP 37.1; O2SAT 94
--- NOTE | 2017-04-29 15:15 | NUR ---
A: Patient arrived to room 403. A/ox4. Breath sounds clear throughout with expiratory wheezing noted. Reports pain 5/10 to back. Reports tingling down arm at times. Yellow socks given. Code word and fall agreement signed. Admission packet given to fill out. Oriented to staff and room. Lunch tray arrived. Call jackman and bedside table are within reach. Will continue to monitor.
[2017-04-29] MEDS: GABAPENTIN 100 MG CAP PO SCH ×2 (16:27→20:27)
[2017-04-29] MEDS: ENOXAPARIN 40 MG/0.4 ML SYR SQ SCH (16:27)
[2017-04-29] MEDS: MoRPHine SULFATE 5 MG/0.25 ML UDP PO PRN ×2 (16:46→23:25)
[2017-04-29] MEDS: INSULIN ASPART 100 UNITS/ML 3 ML PEN SQ SCH ×2 (17:38→20:28)
[2017-04-29 17:45] VITALS: BP 108/60; PULSE 102; TEMP 37.1; BMI 34.8
[2017-04-29] MEDS: CEFEPIME IV 1,000 MG in SYRINGE 0 ML IV SCH (20:25)
[2017-04-29] MEDS: RANITIDINE HCL 150 MG TAB PO SCH (20:26)
[2017-04-29] MEDS: MoRPHine SULFATE CR 15 MG TAB (MS CONTIN) PO SCH (20:26)
[2017-04-29] MEDS: DOXYCYCLINE HYCLATE 100 MG CAP PO SCH (20:27)
[2017-04-29] MEDS: METHYLPREDNISOLONE IV 40 MG in SYRINGE 0 ML IV SCH (20:44)
[2017-04-29] MEDS ORDERED: INSULIN GLARGINE SOLOSTAR 100 UNITS/ML 3 ML PEN SQ SCH (21:00)
[2017-04-29 23:22] VITALS: BP 162/83; PULSE 108; TEMP 38.2; O2SAT 90
[2017-04-29] MEDS: ACETAMINOPHEN 325 MG TAB PO PRN (23:26)
[2017-04-30] VITALS: O2SAT 91
[2017-04-30] MEDS: CEFEPIME IV 1,000 MG in SYRINGE 0 ML IV SCH ×3 (04:12→20:03)
[2017-04-30 05:32] LABS: HEMATOCRIT 31.8 % (37-47); HEMOGLOBIN 10.5 g/dL (12.0-16.0); MEAN CELL VOLUME 86.2 fL (80-100); MEAN CORPUSCULAR HEMOGLOBIN 28.5 pg (25-34); PLATELET COUNT 180 K/uL (130-400); RED CELL DISTRIBUTION WIDTH CV 13.3 % (11.5-14.5); WHITE BLOOD COUNT 11.72 K/uL (4.8-10.8)
[2017-04-30 06:08] LABS: CALCIUM 8.8 mg/dl (8.5-10.1); CREATININE 0.98 mg/dl (0.60-1.20); PHOSPHORUS 3.1 mg/dl (2.5-4.9); POTASSIUM 4.7 mmol/L (3.5-5.1)
[2017-04-30] MEDS ORDERED: BUDESONIDE 0.5 MG/2 ML VIAL (PULMICORT) INH SCH (08:00)
[2017-04-30] MEDS: MoRPHine SULFATE CR 15 MG TAB (MS CONTIN) PO SCH ×2 (08:15→20:03)
[2017-04-30 08:16] VITALS: BP 97/58; PULSE 74; TEMP 36.8; O2SAT 94
[2017-04-30] MEDS: METHYLPREDNISOLONE IV 40 MG in SYRINGE 0 ML IV SCH ×3 (08:16→20:03)
[2017-04-30] MEDS: ACETAMINOPHEN 325 MG TAB PO PRN ×3 (08:16→21:57)
[2017-04-30] MEDS: MoRPHine SULFATE 5 MG/0.25 ML UDP PO PRN ×3 (08:16→21:57)
[2017-04-30] MEDS: CHOLECALCIFEROL 1000 INTER.UNIT TAB PO SCH (08:17)
[2017-04-30] MEDS: GABAPENTIN 100 MG CAP PO SCH ×3 (08:17→20:03)
[2017-04-30] MEDS: ROFLUMILAST 500 MCG TAB PO SCH (08:17)
[2017-04-30] MEDS: PANTOprazole SOD 40 MG TAB PO SCH (08:17)
[2017-04-30] MEDS: POTASSIUM CHLORIDE 10 MEQ TABCR PO SCH (08:18)
[2017-04-30] MEDS: CYANOCOBALAMIN 500 MCG TAB (VIT B-12) PO SCH (08:18)
[2017-04-30] MEDS: ASPIRIN 81 MG ECTAB PO SCH (08:19)
[2017-04-30] MEDS: GUAIFENESIN 600 MG TABCR PO PRN ×2 (08:19→21:56)
[2017-04-30] MEDS: DOXYCYCLINE HYCLATE 100 MG CAP PO SCH ×2 (08:19→20:03)
[2017-04-30] MEDS: CITALOPRAM 40 MG TAB PO SCH (08:20)
[2017-04-30] MEDS: CALCIUM 600MG + VIT D 400 IU TAB PO SCH (08:20)
[2017-04-30] MEDS: RANITIDINE HCL 150 MG TAB PO SCH ×2 (08:20→20:03)
[2017-04-30] MEDS: BUDESONIDE AQ (RHINOCORT AQ) NASAL SPRAY 32 MCG SCH (08:21)
[2017-04-30] MEDS: TIOTROPIUM BROMIDE 5 PUFF/90 MCG INH INH SCH (08:21)
[2017-04-30] MEDS: INSULIN ASPART 100 UNITS/ML 3 ML PEN SQ SCH ×4 (08:27→20:06)
[2017-04-30] MEDS ORDERED: LEVALBUTEROL/IPRATROPIUM NEB INH PRN (14:45)
--- NOTE | 2017-04-30 15:14 | NUR ---
ID: A&Ox4. VSS. C/o back pain at times, medicated per orders with effect. Tolerating diet and activity well. Reports SOB/DOYLE. Receiving IV steroids and antibiotics. Pulmonary consulted. D/c plans uncertain at this time.
[2017-04-30] MEDS: ENOXAPARIN 40 MG/0.4 ML SYR SQ SCH (15:20)
[2017-04-30] MEDS: SODIUM CHLORIDE 0.9% 1000ML 1,000 ML IV SCH (15:20)
[2017-04-30 15:51] VITALS: BP 100/59; PULSE 86; TEMP 36.7; O2SAT 94
--- NOTE | 2017-04-30 18:39 | Progress Note ---
Internal Med Progress Note Date of Service: Apr 30, 2017. Provider Documentation: SUBJECTIVE: had temp spike last night sob improving has dry cough no chest pain no nausea hemodynamics stable OBJECTIVE: Vital Signs-as noted below Exam: General-alert and oriented. Not in distress ENT-Normal hearing Neck-no neck masses supple Lungs-cta b/l mild b/l wheezing present no crackles Heart-S1 and S2 heard regular rate and rthym, no murmurs Abdomen-Soft bowel sounds present non tender no distension Extremities-no edema no erythema Neuro-alert and awake moves extremities Lab data as noted below. ASSESSMENT & PLAN: 1. Chronic obstructive pulmonary disease exacerbation with possible bibasilar pneumonia. On cefepime and doxycycline iv steroids nebs atc and prn Pulmonary consult per patient request close monitor. l. 2. Diabetes type 2, on insulin. holding metformin on Lantus and iss will monitor while on steroids. 3. Esophageal reflux. On PPI and also ranitidine. 4. Chronic back pain. to continue home meds. 5. Depression. On Celexa. 6. Deep venous thrombosis prophylaxis . subQ Lovenox. 7. Code status. Full DISPOSITION to be determined Vital Signs: Date Time Temp Pulse Resp B/P (MAP) Pulse Ox O2 Delivery O2 Flow Rate FiO2 04/30/17 16:00 Nasal Cannula 4.0 04/30/17 15:51 36.7 86 17 100/59 (73) 94 Nasal Cannula 3.5 04/30/17 08:16 36.8 74 18 97/58 (71) 94 Nasal Cannula 3.5 04/30/17 08:15 Nasal Cannula 4.0 04/30/17 00:00 91 Nasal Cannula 4.0 04/29/17 23:22 38.2 108 22 162/83 (109) 90 Nasal Cannula 5.0 Lab Results: Results Past 24 Hours Test 04/29/17 19:41 04/29/17 23:30 04/30/17 05:26 04/30/17 07:59 Range/Units Bedside Glucose 154 260 70-90 mg/dl Urine Color YELLOW Urine Appearance CLEAR CLEAR Urine pH 5.0 4.5-7.5 Urine Specific [place] 1.011 1.000-1.030 Urine Protein NEG NEG Urine Glucose (UA) NEG NEG Urine Ketones NEG NEG Urine Occult Blood NEG NEG Urine Nitrite NEG NEG Urine Bilirubin NEG NEG Urine Urobilinogen NEG NEG Urine Leukocyte Esterase NEG NEG Urine WBC (Auto) 1-5 0-5 /hpf Urine RBC (Auto) 0-4 0-4 /hpf Urine Hyaline Casts (Auto) 0 0-5 /lpf Urine Epithelial Cells (Auto) 5-10 0-5 /lpf Urine Bacteria (Auto) NEG NEG White Blood Count 11.72 4.8-10.8 K/uL Red Blood Count 3.69 4.2-5.4 M/uL Hemoglobin 10.5 12.0-16.0 g/dL Hematocrit 31.8 37-47 % Mean Corpuscular Volume 86.2 80-100 fL Mean Corpuscular Hemoglobin 28.5 25-34 pg Mean Corpuscular Hemoglobin Concent 33.0 32-36 g/dl RDW Standard Deviation 42.0 36.4-46.3 fL RDW Coefficient of Variation 13.3 11.5-14.5 % Platelet Count 180 130-400 K/uL Mean Platelet Volume 9.0 7.4-10.4 fL Sodium Level 133 136-145 mmol/L Potassium Level 4.7 3.5-5.1 mmol/L Chloride Level 103 98-107 mmol/L Carbon Dioxide Level 28 21-32 mmol/L Anion Gap 2.0 3-11 mmol/L Blood Urea Nitrogen 17 7-18 mg/dl Creatinine 0.98 0.60-1.20 mg/dl Est Creatinine Clear Calc Drug Dose 60.7 ml/min Estimated GFR () 71.7 Estimated GFR (Non- 61.8 BUN/Creatinine Ratio 17.7 10-20 Random Glucose 267 70-99 mg/dl Calcium Level 8.8 8.5-10.1 mg/dl Phosphorus Level 3.1 2.5-4.9 mg/dl Magnesium Level 1.9 1.8-2.4 mg/dl Test 04/30/17 11:25 04/30/17 16:42 Range/Units Bedside Glucose 285 186 70-90 mg/dl
[2017-04-30] MEDS: IPRATROPIUM BROMIDE NEB SOLN 0.02% 2.5 ML VIAL INH SCH (19:01)
[2017-04-30] MEDS: LEVALBUTEROL 1.25MG/0.5ML NEB INH SCH (19:01)
[2017-04-30 19:03] VITALS: PULSE 89; O2SAT 95
[2017-04-30] MEDS ORDERED: LEVALBUTEROL/IPRATROPIUM NEB INH SCH (20:00)
[2017-04-30] MEDS: INSULIN GLARGINE SOLOSTAR 100 UNITS/ML 3 ML PEN SQ SCH (20:07)
[2017-04-30 23:33] VITALS: BP 129/67; PULSE 95; TEMP 36.5; O2SAT 92
[2017-05-01] MEDS: SODIUM CHLORIDE 0.9% 1000ML 1,000 ML IV SCH ×2 (00:41→10:50)
[2017-05-01] MEDS: MoRPHine SULFATE 5 MG/0.25 ML UDP PO PRN ×4 (02:07→20:28)
[2017-05-01] MEDS: CEFEPIME IV 1,000 MG in SYRINGE 0 ML IV SCH ×3 (04:15→20:27)
--- NOTE | 2017-05-01 07:06 | DIAGNOSTIC IMAGING REPORT ---
CHEST ONE VIEW PORTABLE CLINICAL HISTORY: congestion dyspnea COMPARISON STUDY: 04/29/2017 FINDINGS: Mild stable cardiomegaly. Central catheter remains in superior vena cava. Diaphragms smooth. Mild improvement in parenchymal infiltrative change both lung bases. Minimal residual atelectasis. IMPRESSION: Improved exam. Improved aeration both lung bases. The above report was generated using voice recognition software. It may contain grammatical, syntax or spelling errors. Electronically signed by: Tao Gomes M.D. 05/01/2017 7:04 AM Dictated Date/Time: 05/01/2017 7:03 AM
[2017-05-01] MEDS: ACETAMINOPHEN 325 MG TAB PO PRN (07:32)
[2017-05-01] MEDS: PANTOprazole SOD 40 MG TAB PO SCH (07:33)
[2017-05-01] MEDS: ASPIRIN 81 MG ECTAB PO SCH (07:33)
[2017-05-01] MEDS: MoRPHine SULFATE CR 15 MG TAB (MS CONTIN) PO SCH ×2 (07:33→20:28)
[2017-05-01] MEDS: RANITIDINE HCL 150 MG TAB PO SCH ×2 (07:33→20:29)
[2017-05-01] MEDS: DOXYCYCLINE HYCLATE 100 MG CAP PO SCH ×2 (07:33→20:29)
[2017-05-01] MEDS: POTASSIUM CHLORIDE 10 MEQ TABCR PO SCH (07:34)
[2017-05-01] MEDS: GABAPENTIN 100 MG CAP PO SCH ×3 (07:34→20:28)
[2017-05-01] MEDS: CHOLECALCIFEROL 1000 INTER.UNIT TAB PO SCH (07:34)
[2017-05-01] MEDS: CITALOPRAM 40 MG TAB PO SCH (07:34)
[2017-05-01] MEDS: CYANOCOBALAMIN 500 MCG TAB (VIT B-12) PO SCH (07:34)
[2017-05-01] MEDS: ROFLUMILAST 500 MCG TAB PO SCH (07:35)
[2017-05-01] MEDS: TIOTROPIUM BROMIDE 5 PUFF/90 MCG INH INH SCH (07:35)
[2017-05-01] MEDS: BUDESONIDE AQ (RHINOCORT AQ) NASAL SPRAY 32 MCG SCH (07:35)
[2017-05-01] MEDS: CALCIUM 600MG + VIT D 400 IU TAB PO SCH (07:35)
[2017-05-01] MEDS: METHYLPREDNISOLONE IV 40 MG in SYRINGE 0 ML IV SCH ×3 (07:36→20:28)
[2017-05-01 07:53] VITALS: PULSE 91; O2SAT 96
[2017-05-01] MEDS: IPRATROPIUM BROMIDE NEB SOLN 0.02% 2.5 ML VIAL INH SCH ×3 (07:53→19:10)
[2017-05-01] MEDS: LEVALBUTEROL 1.25MG/0.5ML NEB INH SCH ×3 (07:53→19:10)
[2017-05-01 08:17] VITALS: BP 119/66; PULSE 89; TEMP 36.4; O2SAT 91
[2017-05-01 08:38] LABS: HEMATOCRIT 31.6 % (37-47); HEMOGLOBIN 10.4 g/dL (12.0-16.0); IG# 0.06 K/uL (0.00-0.02); LYMPH % 6.6 %; LYMPH ABS # 1.18 K/uL (1.2-3.4); MEAN CELL VOLUME 86.3 fL (80-100); MEAN CORPUSCULAR HEMOGLOBIN 28.4 pg (25-34); MEAN CORPUSCULAR HGB CONC 32.9 g/dl (32-36); MEAN PLATELET VOLUME 9.3 fL (7.4-10.4); MONO % 2.6 %; MONO ABS # 0.47 K/uL (0.11-0.59); NEUT % 90.5 %; NEUT ABS # 16.04 K/uL (1.4-6.5); PLATELET COUNT 204 K/uL (130-400); RED CELL DISTRIBUTION WIDTH CV 13.5 % (11.5-14.5); RED CELL DISTRIBUTION WIDTH SD 42.8 fL (36.4-46.3); WHITE BLOOD COUNT 17.75 K/uL (4.8-10.8)
[2017-05-01] MEDS: INSULIN ASPART 100 UNITS/ML 3 ML PEN SQ SCH ×4 (08:56→20:34)
[2017-05-01 09:14] LABS: CALCIUM 8.7 mg/dl (8.5-10.1); CREATININE 0.88 mg/dl (0.60-1.20); POTASSIUM 3.7 mmol/L (3.5-5.1)
[2017-05-01 14:19] VITALS: PULSE 86; O2SAT 97
--- NOTE | 2017-05-01 14:33 | NUR ---
ID: [id number]. VSS. C/o back pain at times, medicated per orders with effect. Tolerating diet and activity well. Showered today. Reports SOB/DOYLE. Receiving IV steroids and antibiotics. IVF infusing. Pulmonary consulted. D/c plans uncertain at this time.
[2017-05-01 15:06] VITALS: BP 148/67; PULSE 93; TEMP 36.4; O2SAT 92
[2017-05-01] MEDS ORDERED: LORAZEPAM 1 MG TAB PO SCH (15:30)
[2017-05-01] MEDS: ENOXAPARIN 40 MG/0.4 ML SYR SQ SCH (15:34)
--- NOTE | 2017-05-01 16:18 | Progress Note ---
Internal Med Progress Note Date of Service: May 01, 2017. Provider Documentation: SUBJECTIVE: says sob is same has cough but not bringing sputum afebrile today no chest pain no nausea OBJECTIVE: Vital Signs-as noted below Exam: General-alert and oriented. Not in distress ENT-Normal hearing Neck-no neck masses supple Lungs-cta b/l mild b/l wheezing present no crackles Heart-S1 and S2 heard regular rate and rthym, no murmurs Abdomen-Soft bowel sounds present non tender no distension Extremities-no edema no erythema Neuro-alert and awake moves extremities Lab data as noted below. ASSESSMENT & PLAN: 1. Chronic obstructive pulmonary disease exacerbation with possible bibasilar pneumonia. On cefepime and doxycycline iv steroids nebs atc and prn Pulmonary consult per patient request slow improvement will continue same for now. l. 2. Diabetes type 2, on insulin. holding metformin on Lantus and iss will monitor while on steroids. 230/213/210/286 3. Esophageal reflux. On PPI and also ranitidine. 4. Chronic back pain. to continue home meds. 5. Depression. On Celexa. 6. Deep venous thrombosis prophylaxis . subQ Lovenox. 7. Code status. Full DISPOSITION to be determined Vital Signs: Date Time Temp Pulse Resp B/P (MAP) Pulse Ox O2 Delivery O2 Flow Rate FiO2 05/01/17 16:00 Nasal Cannula 4.0 05/01/17 15:06 36.4 93 19 148/67 (94) 92 Nasal Cannula 3.0 05/01/17 14:19 86 18 97 Nasal Cannula 3.0 05/01/17 08:17 36.4 89 20 119/66 (83) 91 Nasal Cannula 3.0 05/01/17 08:00 Nasal Cannula 4.0 05/01/17 07:53 91 18 96 Nasal Cannula 3.0 05/01/17 00:05 Nasal Cannula 4.0 04/30/17 23:33 36.5 95 20 129/67 (87) 92 Nasal Cannula 3.0 04/30/17 19:03 89 18 95 Nasal Cannula 3.5 Lab Results: Results Past 24 Hours Test 04/30/17 16:42 04/30/17 19:48 05/01/17 07:53 05/01/17 08:25 Range/Units Bedside Glucose 186 230 213 70-90 mg/dl White Blood Count 17.75 4.8-10.8 K/uL Red Blood Count 3.66 4.2-5.4 M/uL Hemoglobin 10.4 12.0-16.0 g/dL Hematocrit 31.6 37-47 % Mean Corpuscular Volume 86.3 80-100 fL Mean Corpuscular Hemoglobin 28.4 25-34 pg Mean Corpuscular Hemoglobin Concent 32.9 32-36 g/dl Platelet Count 204 130-400 K/uL Mean Platelet Volume 9.3 7.4-10.4 fL Neutrophils (%) (Auto) 90.5 % Lymphocytes (%) (Auto) 6.6 % Monocytes (%) (Auto) 2.6 % Eosinophils (%) (Auto) 0.0 % Basophils (%) (Auto) 0.0 % Neutrophils # (Auto) 16.04 1.4-6.5 K/uL Lymphocytes # (Auto) 1.18 1.2-3.4 K/uL Monocytes # (Auto) 0.47 0.11-0.59 K/uL Eosinophils # (Auto) 0.00 0-0.5 K/uL Basophils # (Auto) 0.00 0-0.2 K/uL RDW Standard Deviation 42.8 36.4-46.3 fL RDW Coefficient of Variation 13.5 11.5-14.5 % Immature Granulocyte % (Auto) 0.3 % Immature Granulocyte # (Auto) 0.06 0.00-0.02 K/uL Sodium Level 138 136-145 mmol/L Potassium Level 3.7 3.5-5.1 mmol/L Chloride Level 106 98-107 mmol/L Carbon Dioxide Level 23 21-32 mmol/L Anion Gap 9.0 3-11 mmol/L Blood Urea Nitrogen 22 7-18 mg/dl Creatinine 0.88 0.60-1.20 mg/dl Est Creatinine Clear Calc Drug Dose 67.6 ml/min Estimated GFR () 81.6 Estimated GFR (Non- 70.4 BUN/Creatinine Ratio 25.4 10-20 Random Glucose 210 70-99 mg/dl Calcium Level 8.7 8.5-10.1 mg/dl Test 05/01/17 11:25 Range/Units Bedside Glucose 286 70-90 mg/dl
--- NOTE | 2017-05-01 17:28 | DIAGNOSTIC IMAGING REPORT ---
CERVICAL SPINE COMBO HISTORY: Pain. Neuropathy. neck and left shoulder pain radiaing to left arm and hand TECHNIQUE: Multiplanar multisequence MRI of the cervical spine was performed both before and after the use of intravenous contrast. COMPARISON STUDY: None. FINDINGS: Limited but nevertheless diagnostic study given the presence of patient motion. Sagittal images demonstrate unremarkable signal characteristics of the vertebral bodies. There is a minimal grade 1 anterolisthesis of C3 and C4 posterior associated posterior disc herniation. There are findings of a fusion of the C4, C5, and C6. Degenerative disc changes noted throughout the remaining components of the cervical region. Sagittal images suggest potential myelomalacia components of the cervical cord at the C3-C4 level associated with a posterior disc herniation. C2-C3: Minimal central disc bulge. She'll effacement anterior subarachnoid space. No significant impact upon the cervical cord. C3-C4: Moderate broad-based disc herniation. Moderate impact anterior aspect cervical cord. Potential subtle myelomalacia. 3 mm narrowing of the cervical canal with the neck positioned in extension C4-C5: Findings consistent with fusion. No disc herniation or spinal stenosis C5-C6: Findings consistent with fusion. No disc herniation or significant spinal stenosis C6-C7: Left central bulging disc with minimal impact anterior cervical cord. Significant osteophytic narrowing of the neuroforamina bilaterally. C7-T1: Broad-based bulging disc with minimal impact anterior cervical canal. Moderate osteophytic narrowing of the neuroforamina bilaterally. IMPRESSION: 1. Limited study due to considerable patient motion. 2. Findings consistent with a prior fusion of C4, C5, and C6. 3. The sagittal images suggest posterior disc herniation at C3-C4 with mild cervical cord myelomalacia. Narrowing of the cervical canal is rather significant with the patient's neck in mild extension , with narrowing of the spinal canal increased by 3 to 4 mm in that position. 4. Bulging disc C6-C7 and C7-T1 with moderate narrowing of the neuroforamina bilaterally at both levels. 5. No abnormal postcontrast enhancement. The above report was generated using voice recognition software. It may contain grammatical, syntax or spelling errors. Electronically signed by: Tao Gomes M.D. 05/01/2017 5:26 PM Dictated Date/Time: 05/01/2017 5:15 PM
[2017-05-01 19:12] VITALS: PULSE 93; O2SAT 94
[2017-05-01] MEDS: INSULIN GLARGINE SOLOSTAR 100 UNITS/ML 3 ML PEN SQ SCH (20:35)
--- NOTE | 2017-05-01 20:54 | PULMONARY CONSULTATION ---
DATE OF CONSULTATION: 05/01/2017 TIME: 1:55 p.m. REPORT OF CONSULTATION: The patient was seen in room 403. She is a 61-year-old female with a history of lung disease for about 9 years. She was found to have alpha-1 antitrypsin deficiency. She does not know exactly what subtype she has. She does get replacement therapy at home on a regular basis. She has been determined to have COPD and mainly emphysema. She was a long-term smoker for more than 30 years at nearly a pack per day. She states she quit smoking about 2004. She is short of breath with fairly minimal exertion on a regular basis. For instance, she could not walk at a store like [email or web address] from the front to the back without getting winded. She is on continuous oxygen. On the date of this admission, she was seeing her family doctor, Dr. Esposito. She was there for another reason, but they found that she had a temperature of 101 and a heart rate in the 130 to 140 range. She states she was a little more short of breath than normal, but not terribly so. She has a mild cough. There generally is not any significant sputum. She has not coughed up any blood. She feels a little better than she did when she came in. Since she has been in the hospital, the highest temperature recorded was the initial one at 38.3. Since then, she has been showing a temperature of 38.2 just before midnight on the . Since then, she has been afebrile. The patient is on a number of breathing medications at home. She states she is on a nebulizer with levalbuterol, but she also has albuterol. She states that she takes levalbuterol once in the morning and then the rest of the day, she usually takes albuterol. I was not clear as to why that would be the case, but she states that that is how it was started many years ago. She has noticed tremors with the albuterol more than the levalbuterol. She also has an albuterol inhaler that she uses periodically. She acknowledges that she is on budesonide by nebulizer, but just once per day. She does use Breo Ellipta, but she was unsure of the dosage. She is on Spiriva and Daliresp. The patient is on oxygen, which is anywhere from 3 to 6 L depending upon what she is doing. PAST SURGICAL HISTORY: 1. Lumbar spine surgery. 2. Cervical spine surgery. 3. Salivary gland surgery. 4. Total abdominal hysterectomy. 5. Bronchoscopy x6. 6. Removal of a tumor from the left forearm and from the shoulder. PAST MEDICAL HISTORY: 1. Diabetes type 2. 2. Reflux. 3. Depression. 4. Chronic pain syndrome. 5. Pulmonary embolism in 2007. 6. Non-Hodgkin's lymphoma in 2005. 7. Mycobacterium avium infection in 2011. 8. Aspergillus infection in 2014. SOCIAL HISTORY: Tobacco use as noted above, approximately 30-pack years. OCCUPATIONAL HISTORY: She is not working currently, but she previously did [employer] type of work. ALLERGIES: BACTRIM. FAMILY HISTORY: The patient states that she recently found out that it is believed that her father had alpha-1 disease as well, but he never told anyone except one of her sisters. She did have a sister , who had AML. One brother has emphysema. PHYSICAL EXAMINATION: GENERAL: The patient is a 61-year-old female. who was cooperative, alert and oriented. She did not appear in distress. VITAL SIGNS: Temperature was 36.4. HEENT: Pupils were reactive to light. Nares were clear. Mouth exam showed no erythema or exudate. NECK: Palpation of the neck reveals no lymph nodes. The patient's weight is 86.4 kg with a BMI of 34.8. HEART: Heart rate was 90 per minute. The rhythm was regular. Blood pressure 119/66. LUNGS: Auscultation of the lung woodard revealed the patient is moderately tight. She did not look uncomfortable, but she had diminished breath sounds and wheezing on expiration. There was prolongation to the expiratory phase of respiration. Respiratory rate was 20. Oxygen saturation was 94% on 3 L done by myself. ABDOMEN: Soft. Bowel sounds were present and were normal. There was no tenderness to palpation, masses, or organomegaly. EXTREMITIES: Showed no cyanosis, clubbing, or edema. IMAGING STUDIES: Chest x-ray shows evidence of a Port-A-Cath in the left upper anterior chest. There is slight prominence to the lung markings. I do not believe there is evidence of pneumonic infiltrate at present. The x-ray done today as compared with admission showed a better aeration at the lung bases. LABORATORY DATA: Admission white count was 13.9. Today, the white count is up to 17.75. Yesterday, it had been down to 11.72. Hemoglobin on admission was 11.5 and today is 10.4. Platelet count is 204,000 today. Coags are normal. Urinalysis was unremarkable. Electrolytes show sodium 138, potassium 3.7, chloride 106, bicarbonate 23. BUN was 22 with a creatinine of 0.88. Flu test was negative. Blood cultures thus far show no growth. IMPRESSION: 1. Fever - probable bronchitis. 2. Chronic obstructive pulmonary disease - emphysema. 3. Alpha-1 antitrypsin deficiency by history. COMMENTS: The patient's fever seems to be improved. I do not see a definite infiltrate on her chest x-ray. When she was hospitalized in March, she was thought to have pneumonia. As noted from the history above, she has cultured out various unusual organisms on bronchoscopy in the past including Aspergillus and Mycobacterium avium. She feels a little better than she did on admission. She is still fairly tight. She is currently on levalbuterol with ipratropium t.i.d. She is on the Tiotropium that she takes at home. She is on doxycycline and cefepime. She is on methylprednisolone 40 mg IV t.i.d. I agree with all the above. She is not bringing up much sputum. As long as she continues to improve, I think that is not a major issue for her. Upon discharge, I think it would make more sense for her to be on just the levalbuterol by nebulizer. I do not think albuterol will add anything to that. She just needs to realize she can use the levalbuterol 4 times per day if needed. She of course will continue to get the alpha-1 antitrypsin replacement therapy at home as she has been doing for several years. She will need to follow up with Dr. Georges after discharge. Dr. Mccartney, however, will be making rounds on her tomorrow.
[2017-05-01 23:15] VITALS: BP 176/80; PULSE 95; TEMP 36.5; O2SAT 93
[2017-05-02] VITALS (7 sets, daily range): BP systolic 161–185; BP diastolic 79–83; PULSE 69–94; TEMP 36.4–36.6; O2SAT 94–98
[2017-05-02] MEDS: MoRPHine SULFATE 5 MG/0.25 ML UDP PO PRN ×4 (00:54→16:32)
[2017-05-02] MEDS: CEFEPIME IV 1,000 MG in SYRINGE 0 ML IV SCH ×3 (03:51→20:55)
[2017-05-02 05:53] LABS: HEMATOCRIT 31.7 % (37-47); MEAN CELL VOLUME 86.8 fL (80-100); MEAN CORPUSCULAR HEMOGLOBIN 27.4 pg (25-34); MEAN CORPUSCULAR HGB CONC 31.5 g/dl (32-36); MEAN PLATELET VOLUME 9.5 fL (7.4-10.4); PLATELET COUNT 241 K/uL (130-400); RED CELL DISTRIBUTION WIDTH CV 13.7 % (11.5-14.5); WHITE BLOOD COUNT 15.23 K/uL (4.8-10.8)
[2017-05-02] MEDS: INSULIN GLARGINE SOLOSTAR 100 UNITS/ML 3 ML PEN SC SCH (05:55)
[2017-05-02 06:32] LABS: CREATININE 0.94 mg/dl (0.60-1.20)
[2017-05-02] MEDS: IPRATROPIUM BROMIDE NEB SOLN 0.02% 2.5 ML VIAL INH SCH ×3 (07:14→19:14)
[2017-05-02] MEDS: LEVALBUTEROL 1.25MG/0.5ML NEB INH SCH ×3 (07:15→19:14)
[2017-05-02] MEDS: CITALOPRAM 40 MG TAB PO SCH (07:19)
[2017-05-02] MEDS: CYANOCOBALAMIN 500 MCG TAB (VIT B-12) PO SCH (07:19)
[2017-05-02] MEDS: PANTOprazole SOD 40 MG TAB PO SCH (07:19)
[2017-05-02] MEDS: CHOLECALCIFEROL 1000 INTER.UNIT TAB PO SCH (07:19)
[2017-05-02] MEDS: ASPIRIN 81 MG ECTAB PO SCH (07:19)
[2017-05-02] MEDS: DOXYCYCLINE HYCLATE 100 MG CAP PO SCH ×2 (07:20→20:57)
[2017-05-02] MEDS: TIOTROPIUM BROMIDE 5 PUFF/90 MCG INH INH SCH (07:20)
[2017-05-02] MEDS: METHYLPREDNISOLONE IV 40 MG in SYRINGE 0 ML IV SCH ×3 (07:20→20:55)
[2017-05-02] MEDS: BUDESONIDE AQ (RHINOCORT AQ) NASAL SPRAY 32 MCG SCH (07:20)
[2017-05-02] MEDS: RANITIDINE HCL 150 MG TAB PO SCH ×2 (07:20→20:57)
[2017-05-02] MEDS: ROFLUMILAST 500 MCG TAB PO SCH (07:21)
[2017-05-02] MEDS: POTASSIUM CHLORIDE 10 MEQ TABCR PO SCH (07:21)
[2017-05-02] MEDS: GABAPENTIN 100 MG CAP PO SCH ×3 (07:21→20:56)
[2017-05-02] MEDS: CALCIUM 600MG + VIT D 400 IU TAB PO SCH (07:21)
[2017-05-02] MEDS: MoRPHine SULFATE CR 15 MG TAB (MS CONTIN) PO SCH ×2 (07:26→20:56)
[2017-05-02] MEDS: INSULIN ASPART 100 UNITS/ML 3 ML PEN SQ SCH ×4 (08:04→21:00)
--- NOTE | 2017-05-02 12:13 | DIAGNOSTIC IMAGING REPORT ---
CERVICAL SPINE 4 VIEWS CLINICAL HISTORY: Chronic neck pain. FINDINGS: AP, lateral, swimmer's, and odontoid views of the cervical spine are compared to study dated 03/11/2008. The skeletal structures are osteopenic. There is no radiographic evidence of fracture or malalignment. There are postoperative changes from anterior fusion seen at C3-C4 with discectomy at this level. The orthopedic hardware appears intact. There is complete bony fusion seen from C3 through C6. There is straightening of the cervical lordosis. The atlantodental articulation appears maintained. The odontoid process and lateral masses are intact as seen on the open-mouth view. There is moderate disc space narrowing seen at C6-C7 with anterior osteophytes. The spinous processes appear maintained. The prevertebral soft tissues are within normal limits. A central venous infusion port is noted. The partially imaged apical lung parenchyma appears clear. IMPRESSION: 1. No acute bony abnormality is identified involving the cervical spine. 2. Osteopenia with postoperative change and extensive cervical fusion as above. Dictated: 05/02/2017 12:04 PM Transcribed: 05/02/2017 12:13 PM SHELLY_Oneida Electronically signed by: Luis Alfredo Dickerson M.D. 05/02/2017 12:37 PM Dictated Date/Time: 05/02/2017 12:04 PM
--- NOTE | 2017-05-02 12:33 | Pulmonology Progress Note ---
Pulmonary Progress Note Date of Service May 02, 2017. Attending Dr. Mccartney Subjective Patient seen and examined. She states that she's feeling a bit better from yesterday. Speaking in full sentences but still tachypneic. Does not feel back at her baseline. At time of my evaluation patient assisting to make her bed. Objective Vital signs reviewed MAXIMUM TEMPERATURE 36.6, blood pressure 127/79, pulse 69- 81, respiratory rate 18-20, pulse oximetry 94-98 on 4 L. She is currently on 696 mL negative since admission. Gen.: Awake alert oriented 3, no acute respiratory distress. CVS: S1-S2, regular rate and rhythm Lungs/chest: Decreased breath sounds bilaterally, sporadic wheezes, prolonged expiratory phase, mildly tachypneic when speaking. Abdomen: Soft, nontender, nondistended bowel sounds positive Extremities: No cyanosis, no clubbing, no edema bilateral lower extremities Labs reviewed. Imaging reviewed. Medications reviewed. Assessment & Plan COPD exacerbation History of Alpha 1 antitrypsin deficiency Chronic chronic hypoxemic respiratory failure Mrs. Lanier appears to be improving clinically since admission. She does however feel that she is back at her baseline. She continues to have sporadic wheezing bilaterally, but denies any sputum production. Recommendations Continue with current management. Continue to maintain her SaO2 between 88-92%. Continue with nebulizers every 4-6 hours daily Continue Spiriva 1 puff daily. Continue with doxycycline and and cefepime. Continue with Solu-Medrol every 8 hours. We can likely taper her over to prednisone in the morning. I do agree that we can continue her Xopenex as a nebulizer upon discharge. If she is in hospital for continued. At time recommend obtaining alpha 1 and treated Simply replacement for administration. Continue with bed to chair as tolerated. Continue GI and DVT prophylaxis. Data Medications: Current Inpatient Medications Medications (Trade) Dose Ordered Sig/Aram Route Start Time Stop Time Status Last Admin Dose Admin Enoxaparin Sodium (Lovenox Inj) 40 mg Q24H SQ 04/29/17 16:00 05/29/17 15:59 05/01/17 15:34 40 MG Acetaminophen (Tylenol Tab) 650 mg Q4H PRN PO 04/29/17 13:45 05/29/17 13:44 05/01/17 07:32 650 MG Ondansetron HCl (Zofran Inj) 4 mg Q6H PRN IV 04/29/17 13:45 05/29/17 13:44 Albuterol (Ventolin Hfa Inhaler) 2 puffs Q4 PRN INH 04/29/17 14:00 05/29/17 13:59 Aspirin (Ecotrin Tab) 81 mg DAILY PO 04/30/17 08:00 05/30/17 08:59 05/02/17 07:19 81 MG Budesonide (Rhinocort Aq Nasal [place]) 2 sprays DAILY NA 04/30/17 08:00 05/30/17 08:59 05/02/17 07:20 2 SPRAYS Calcium/Vitamin D (Caltrate Plus Tab) 1 tab QAM PO 04/30/17 08:00 05/30/17 08:59 05/02/17 07:21 1 TAB Cholecalciferol (Vitamin D Tab) 1,000 inter.unit DAILY PO 04/30/17 08:00 05/30/17 08:59 05/02/17 07:19 1,000 INTER.UNIT Citalopram Hydrobromide (celeXA TAB) 40 mg DAILY PO 04/30/17 08:00 05/30/17 08:59 05/02/17 07:19 40 MG Cyclobenzaprine HCl (Flexeril Tab) 5 mg BID PRN PO 04/29/17 14:00 05/29/17 13:59 Gabapentin (Neurontin Cap) 100 mg TID PO 04/29/17 16:00 05/29/17 15:59 05/02/17 07:21 100 MG Guaifenesin (Mucinex Contr Rel Tab) 600 mg Q12H PRN PO 04/29/17 14:00 05/29/17 13:59 04/30/17 21:56 600 MG Insulin Aspart (novoLOG ASPART) SLIDING SCALE ACHS SQ 04/29/17 16:30 05/29/17 16:29 05/02/17 08:04 7 UNITS Morphine Sulfate (Roxanol Oral Soln) 5 mg Q4 PRN PO 04/29/17 14:00 05/13/17 13:59 05/02/17 11:58 5 MG Pantoprazole Sodium (Protonix Tab) 40 mg DAILY PO 04/30/17 08:00 05/30/17 08:59 05/02/17 07:19 40 MG Potassium Chloride (Klor-Con M10) 20 meq QAM PO 04/30/17 08:00 05/30/17 08:59 05/02/17 07:21 20 MEQ Ranitidine HCl (zANTac TAB) 150 mg BID PO 04/29/17 20:00 05/29/17 20:59 05/02/17 07:20 150 MG Roflumilast (Daliresp Tab) 500 mcg QAM PO 04/30/17 08:00 05/30/17 08:59 05/02/17 07:21 500 MCG Tiotropium [place] (Spiriva Handihaler Inhaler) 1 puff QAM INH 04/30/17 08:00 05/30/17 08:59 05/02/17 07:20 1 PUFF Cyanocobalamin (Vitamin B-12 Tab) 1,000 mcg QAM PO 04/30/17 08:00 05/30/17 08:59 05/02/17 07:19 1,000 MCG Miscellaneous Information (Order Awaiting Action) 1 ea QS N/A 04/29/17 16:00 05/29/17 15:59 Morphine Sulfate (Oramorph Sr Tab) 30 mg BID PO 04/29/17 20:00 05/29/17 20:59 05/02/17 07:26 30 MG Polyethylene (Miralax Powder Packet) 17 gm DAILY PRN PO 04/29/17 14:00 05/29/17 13:59 Doxycycline Hyclate (Vibramycin Cap) 100 mg BID PO 04/29/17 20:00 05/06/17 20:59 05/02/17 07:20 100 MG Methylprednisolone Sodium Succinate 40 mg/Syringe 0.64 ml @ 1.5 mls/min TID IV 04/29/17 20:00 05/29/17 20:59 05/02/17 07:20 1.5 MLS/MIN Cefepime HCl 1000 mg/Syringe 11 ml @ 5.5 mls/min Q8@0400,1200,2000 IV 04/29/17 20:00 05/06/17 19:59 05/02/17 11:58 5.5 MLS/MIN Heparin Sodium (Porcine) (Heparin 100 Unit/ml 5ml Flush) 5 ml PRN PRN IV 04/29/17 21:15 05/29/17 21:14 05/02/17 05:21 5 ML Heparin Sodium (Porcine) (Heparin 100 Unit/ml 5ml Flush) 5 ml PRN PRN IV 04/29/17 23:30 05/29/17 23:29 Ipratropium [place] (Atrovent 0.02% 0.5MG/2.5ML Neb) 0.5 mg TID INH 04/30/17 20:00 05/30/17 19:59 05/02/17 07:14 0.5 MG Levalbuterol (Xopenex 1.25MG/ 0.5ML Neb) 1.25 mg TID INH 04/30/17 20:00 05/30/17 19:59 05/02/17 07:15 1.25 MG Insulin Glargine (Lantus Solostar Pen) 25 units HS SQ 04/30/17 21:00 05/29/17 20:59 05/01/17 20:35 25 UNITS Insulin Glargine (Lantus Solostar Pen) 10 units DAILYBB SC 05/02/17 06:30 06/01/17 06:29 05/02/17 05:55 10 UNITS Vital Signs: Date Time Temp Pulse Resp B/P (MAP) Pulse Ox O2 Delivery O2 Flow Rate FiO2 05/02/17 07:47 Nasal Cannula 4.0 05/02/17 07:20 36.6 69 20 177/79 (111) 94 05/02/17 07:15 81 18 98 Nasal Cannula 4.0 05/02/17 00:15 Nasal Cannula 4.0 05/01/17 23:15 36.5 95 20 176/80 (112) 93 Nasal Cannula 5.0 05/01/17 19:12 93 18 94 Nasal Cannula 3.0 05/01/17 16:00 Nasal Cannula 4.0 05/01/17 15:06 36.4 93 19 148/67 (94) 92 Nasal Cannula 3.0 05/01/17 14:19 86 18 97 Nasal Cannula 3.0 Laboratory Results: Last 24 Hours Test 05/01/17 17:15 05/01/17 20:14 05/02/17 05:23 05/02/17 07:26 Bedside Glucose 192 mg/dl 224 mg/dl 193 mg/dl White Blood Count 15.23 K/uL Red Blood Count 3.65 M/uL Hemoglobin 10.0 g/dL Hematocrit 31.7 % Mean Corpuscular Volume 86.8 fL Mean Corpuscular Hemoglobin 27.4 pg Mean Corpuscular Hemoglobin Concent 31.5 g/dl RDW Standard Deviation 44.0 fL RDW Coefficient of Variation 13.7 % Platelet Count 241 K/uL Mean Platelet Volume 9.5 fL Creatinine 0.94 mg/dl Est Creatinine Clear Calc Drug Dose 63.3 ml/min Estimated GFR () 75.4 Estimated GFR (Non- 65.0 Test 05/02/17 11:39 Bedside Glucose 178 mg/dl
--- NOTE | 2017-05-02 14:34 | NUR ---
id: pt alert and oriented times four. rings for assistance. denying pain nausea sob at this time. pt takes roxanol prn for back pain. chronic 4L nasal cannula. independent in room. will continue to monitor.
[2017-05-02] MEDS: ENOXAPARIN 40 MG/0.4 ML SYR SQ SCH (16:00)
[2017-05-02] MEDS: GUAIFENESIN 600 MG TABCR PO PRN (16:32)
--- NOTE | 2017-05-02 18:19 | Progress Note ---
Internal Med Progress Note Date of Service: May 02, 2017. Provider Documentation: SUBJECTIVE: says sob is only slightly better has cough but not bringing sputum eating ok ambulating i room ok afebrile still has neck pain shooting to left arm OBJECTIVE: Vital Signs-as noted below Exam: General-alert and oriented. Not in distress ENT-Normal hearing Neck-no neck masses supple Lungs-cta b/l mild b/l wheezing present no crackles Heart-S1 and S2 heard regular rate and rthym, no murmurs Abdomen-Soft bowel sounds present non tender no distension Extremities-no edema no erythema Neuro-alert and awake moves extremities Lab data as noted below. ASSESSMENT & PLAN: 1. Chronic obstructive pulmonary disease exacerbation with possible bibasilar pneumonia. On cefepime and doxycycline iv steroids nebs atc and prn Pulmonary consulted per patient request slow improvement will continue same for now. taper steroids in am l. 2. Diabetes type 2, on insulin. holding metformin on Lantus and iss will monitor while on steroids. 224/198/178/189. 3. Esophageal reflux. On PPI and also ranitidine. 4. Chronic back pain. to continue home meds. 5. Depression. On Celexa. 6. Cervical spondylosis. MRI suggesting posterior disc herniation at C3-C4 with mild cervical cord myelomalacia 7. Deep venous thrombosis prophylaxis . subQ Lovenox. 8. Code status. Full DISPOSITION to be determined Vital Signs: Date Time Temp Pulse Resp B/P (MAP) Pulse Ox O2 Delivery O2 Flow Rate FiO2 05/02/17 16:07 36.4 18 161/83 (109) 95 Nasal Cannula 4.0 05/02/17 15:05 91 18 97 Nasal Cannula 4.0 05/02/17 07:47 Nasal Cannula 4.0 05/02/17 07:20 36.6 69 20 177/79 (111) 94 05/02/17 07:15 81 18 98 Nasal Cannula 4.0 05/02/17 00:15 Nasal Cannula 4.0 05/01/17 23:15 36.5 95 20 176/80 (112) 93 Nasal Cannula 5.0 05/01/17 19:12 93 18 94 Nasal Cannula 3.0 Lab Results: Results Past 24 Hours Test 05/01/17 20:14 05/02/17 05:23 05/02/17 07:26 05/02/17 11:39 Range/Units Bedside Glucose 224 193 178 70-90 mg/dl White Blood Count 15.23 4.8-10.8 K/uL Red Blood Count 3.65 4.2-5.4 M/uL Hemoglobin 10.0 12.0-16.0 g/dL Hematocrit 31.7 37-47 % Mean Corpuscular Volume 86.8 80-100 fL Mean Corpuscular Hemoglobin 27.4 25-34 pg Mean Corpuscular Hemoglobin Concent 31.5 32-36 g/dl RDW Standard Deviation 44.0 36.4-46.3 fL RDW Coefficient of Variation 13.7 11.5-14.5 % Platelet Count 241 130-400 K/uL Mean Platelet Volume 9.5 7.4-10.4 fL Creatinine 0.94 0.60-1.20 mg/dl Est Creatinine Clear Calc Drug Dose 63.3 ml/min Estimated GFR () 75.4 Estimated GFR (Non- 65.0 Test 05/02/17 16:35 Range/Units Bedside Glucose 189 70-90 mg/dl
[2017-05-02] MEDS: INSULIN GLARGINE SOLOSTAR 100 UNITS/ML 3 ML PEN SQ SCH (21:01)
[2017-05-03] MEDS: CEFEPIME IV 1,000 MG in SYRINGE 0 ML IV SCH ×3 (04:08→20:23)
[2017-05-03] MEDS: MoRPHine SULFATE 5 MG/0.25 ML UDP PO PRN ×4 (04:15→23:58)
[2017-05-03] MEDS: IPRATROPIUM BROMIDE NEB SOLN 0.02% 2.5 ML VIAL INH SCH ×3 (07:05→19:08)
[2017-05-03] MEDS: LEVALBUTEROL 1.25MG/0.5ML NEB INH SCH ×3 (07:05→19:08)
[2017-05-03 07:07] VITALS: PULSE 74; O2SAT 96
[2017-05-03] MEDS: CITALOPRAM 40 MG TAB PO SCH (07:17)
[2017-05-03] MEDS: ASPIRIN 81 MG ECTAB PO SCH (07:17)
[2017-05-03] MEDS: CALCIUM 600MG + VIT D 400 IU TAB PO SCH (07:17)
[2017-05-03] MEDS: RANITIDINE HCL 150 MG TAB PO SCH ×2 (07:18→20:25)
[2017-05-03] MEDS: PANTOprazole SOD 40 MG TAB PO SCH (07:18)
[2017-05-03] MEDS: TIOTROPIUM BROMIDE 5 PUFF/90 MCG INH INH SCH (07:18)
[2017-05-03] MEDS: DOXYCYCLINE HYCLATE 100 MG CAP PO SCH ×2 (07:18→20:25)
[2017-05-03] MEDS: CYANOCOBALAMIN 500 MCG TAB (VIT B-12) PO SCH (07:18)
[2017-05-03] MEDS: ROFLUMILAST 500 MCG TAB PO SCH (07:18)
[2017-05-03] MEDS: GABAPENTIN 100 MG CAP PO SCH ×3 (07:18→20:24)
[2017-05-03] MEDS: POTASSIUM CHLORIDE 10 MEQ TABCR PO SCH (07:18)
[2017-05-03] MEDS: CHOLECALCIFEROL 1000 INTER.UNIT TAB PO SCH (07:18)
[2017-05-03] MEDS: BUDESONIDE AQ (RHINOCORT AQ) NASAL SPRAY 32 MCG SCH (07:19)
[2017-05-03] MEDS: MoRPHine SULFATE CR 15 MG TAB (MS CONTIN) PO SCH ×2 (07:23→20:24)
[2017-05-03 07:24] VITALS: BP 180/85; PULSE 79; TEMP 36.6; O2SAT 92
[2017-05-03] MEDS: INSULIN GLARGINE SOLOSTAR 100 UNITS/ML 3 ML PEN SC SCH (07:25)
[2017-05-03 08:00] VITALS: BMI 34.8
--- NOTE | 2017-05-03 08:00 | NUR ---
DIABETES Pt identified for elevated BG > 300mg/dl via BG report. BG 131 on admit. A1c 6.1% (eAG 128) on 03/07. Current Meds: Lantus 10units AM/25units in PM and Novolog 1:7 plus CF:20 with BG goal of 110-140. Fasting BG 114 this AM. Other values [phone] yesterday. Suspect spike post-dinner related to BG checked only 2hrs after insulin given. Will continue to monitor BG values and follow-up for any education prn. Addendum: 05/04/17 at [address] Amended: Links added.
[2017-05-03] MEDS: INSULIN ASPART 100 UNITS/ML 3 ML PEN SQ SCH ×4 (08:25→20:28)
--- NOTE | 2017-05-03 10:06 | Clinical Documentation Query ---
CLINICAL DOCUMENTATION QUERY A 61 yo female with PMH of COPD and chronic hypoxic respiratory failure is admitted for possible pneumonia. In your clinical opinion is this patient being managed for: ( ) Sepsis ( x ) Not Agree ( ) Other explanation of clinical findings (Please Explain) ( ) Unable to determine (Please Define) ( ) Need to Discuss The medical record reflects the following clinical findings, treatment, and risk factors. Clinical Indicators: WBC 17.75, temp 38.3, pulse 113, resps 26, meets SIRS criteria Treatment: IV Cefepime, IV hydration, nebulizer therapy Risk Factors: COPD, pneumonia, chronic respiratory failure Please clarify and document your clinical opinion in the progress notes and discharge summary. Terms such as "probable", "suspected", "likely", "questionable", "possible", or "still to be ruled out" are acceptable. IF IN AGREEMENT, YOU MUST DOCUMENT ABOVE DIAGNOSTIC STATEMENT IN DAILY PROGRESS NOTES AND DISCHARGE SUMMARY. This document is not part of the patient's record. Thank You, Suni Winchester RN [phone]
--- NOTE | 2017-05-03 10:59 | Pulmonology Progress Note ---
Pulmonary Progress Note Date of Service May 03, 2017. Attending Dr. Mccartney Subjective Patient seen and examined at bedside. She is out of bed to chair. She states that she feels that she is back at her baseline from a respiratory standpoint. She still gets quite dyspneic with minimal exertion. She has intermittent wheezing. Denies any cough or chest pain. She states that her neck pain has somewhat improved but still has some radiation to the left upper extremity. Objective Vital signs reviewed MAXIMUM TEMPERATURE 36.6, blood pressure 180/85, pulse 74- 79, respiratory rate 18, pulse oximetry 92-96% on 4 L. She is currently on 2100 mL negative since admission. Gen.: Awake alert oriented 3, no acute respiratory distress. CVS: S1-S2, regular rate and rhythm Lungs/chest: Decreased breath sounds bilaterally, sporadic wheezes, prolonged expiratory phase, mildly tachypneic when speaking. Abdomen: Soft, nontender, nondistended bowel sounds positive Extremities: No cyanosis, no clubbing, no edema bilateral lower extremities Labs reviewed. Imaging reviewed. Medications reviewed. Assessment & Plan COPD exacerbation History of Alpha 1 antitrypsin deficiency Chronic chronic hypoxemic respiratory failure Mrs. Lanier is back to her baseline from a respiratory standpoint. She still has dyspnea with minimal exertion and intermittent wheezing at times. Otherwise appears comfortable. Recommendations Continue with current management. Continue to maintain her SaO2 between 88-92%. Continue with nebulizers every 4-6 hours daily Continue Spiriva 1 puff daily. Continue with Daliresp 500 mg BID Continue with broad-spectrum antibiotics for a total of 5 days Continue with prednisone taper I do agree that we can continue her Xopenex as a nebulizer upon discharge. Continue with weekly alpha 1 antitrypsin replacement Continue with bed to chair as tolerated. Continue GI and DVT prophylaxis. I will sign off the case today. Please contact me if you've any further questions or concerns. Patient should follow up with Dr. Georges in the outpatient pulmonary clinic within 1-2 weeks post hospital discharge. Data Medications: Current Inpatient Medications Medications (Trade) Dose Ordered Sig/Aram Route Start Time Stop Time Status Last Admin Dose Admin Enoxaparin Sodium (Lovenox Inj) 40 mg Q24H SQ 04/29/17 16:00 05/29/17 15:59 05/02/17 16:00 40 MG Acetaminophen (Tylenol Tab) 650 mg Q4H PRN PO 04/29/17 13:45 05/29/17 13:44 05/01/17 07:32 650 MG Ondansetron HCl (Zofran Inj) 4 mg Q6H PRN IV 04/29/17 13:45 05/29/17 13:44 Albuterol (Ventolin Hfa Inhaler) 2 puffs Q4 PRN INH 04/29/17 14:00 05/29/17 13:59 Aspirin (Ecotrin Tab) 81 mg DAILY PO 04/30/17 08:00 05/30/17 08:59 05/03/17 07:17 81 MG Budesonide (Rhinocort Aq Nasal [place]) 2 sprays DAILY NA 04/30/17 08:00 05/30/17 08:59 05/03/17 07:19 2 SPRAYS Calcium/Vitamin D (Caltrate Plus Tab) 1 tab QAM PO 04/30/17 08:00 05/30/17 08:59 05/03/17 07:17 1 TAB Cholecalciferol (Vitamin D Tab) 1,000 inter.unit DAILY PO 04/30/17 08:00 05/30/17 08:59 05/03/17 07:18 1,000 INTER.UNIT Citalopram Hydrobromide (celeXA TAB) 40 mg DAILY PO 04/30/17 08:00 05/30/17 08:59 05/03/17 07:17 40 MG Cyclobenzaprine HCl (Flexeril Tab) 5 mg BID PRN PO 04/29/17 14:00 05/29/17 13:59 Gabapentin (Neurontin Cap) 100 mg TID PO 04/29/17 16:00 05/29/17 15:59 05/03/17 07:18 100 MG Guaifenesin (Mucinex Contr Rel Tab) 600 mg Q12H PRN PO 04/29/17 14:00 05/29/17 13:59 05/02/17 16:32 600 MG Insulin Aspart (novoLOG ASPART) SLIDING SCALE ACHS SQ 04/29/17 16:30 05/29/17 16:29 05/03/17 08:25 6 UNITS Morphine Sulfate (Roxanol Oral Soln) 5 mg Q4 PRN PO 04/29/17 14:00 05/13/17 13:59 05/03/17 10:43 5 MG Pantoprazole Sodium (Protonix Tab) 40 mg DAILY PO 04/30/17 08:00 05/30/17 08:59 05/03/17 07:18 40 MG Potassium Chloride (Klor-Con M10) 20 meq QAM PO 04/30/17 08:00 05/30/17 08:59 05/03/17 07:18 20 MEQ Ranitidine HCl (zANTac TAB) 150 mg BID PO 04/29/17 20:00 05/29/17 20:59 05/03/17 07:18 150 MG Roflumilast (Daliresp Tab) 500 mcg QAM PO 04/30/17 08:00 05/30/17 08:59 05/03/17 07:18 500 MCG Tiotropium [place] (Spiriva Handihaler Inhaler) 1 puff QAM INH 04/30/17 08:00 05/30/17 08:59 05/03/17 07:18 1 PUFF Cyanocobalamin (Vitamin B-12 Tab) 1,000 mcg QAM PO 04/30/17 08:00 05/30/17 08:59 05/03/17 07:18 1,000 MCG Miscellaneous Information (Order Awaiting Action) 1 ea QS N/A 04/29/17 16:00 05/29/17 15:59 Morphine Sulfate (Oramorph Sr Tab) 30 mg BID PO 04/29/17 20:00 05/29/17 20:59 05/03/17 07:23 30 MG Polyethylene (Miralax Powder Packet) 17 gm DAILY PRN PO 04/29/17 14:00 05/29/17 13:59 Doxycycline Hyclate (Vibramycin Cap) 100 mg BID PO 04/29/17 20:00 05/06/17 20:59 05/03/17 07:18 100 MG Cefepime HCl 1000 mg/Syringe 11 ml @ 5.5 mls/min Q8@0400,1200,2000 IV 04/29/17 20:00 05/06/17 19:59 05/03/17 04:08 5.5 MLS/MIN Heparin Sodium (Porcine) (Heparin 100 Unit/ml 5ml Flush) 5 ml PRN PRN IV 04/29/17 21:15 05/29/17 21:14 05/02/17 21:06 5 ML Heparin Sodium (Porcine) (Heparin 100 Unit/ml 5ml Flush) 5 ml PRN PRN IV 04/29/17 23:30 05/29/17 23:29 05/03/17 08:30 5 ML Ipratropium [place] (Atrovent 0.02% 0.5MG/2.5ML Neb) 0.5 mg TID INH 04/30/17 20:00 05/30/17 19:59 05/03/17 07:05 0.5 MG Levalbuterol (Xopenex 1.25MG/ 0.5ML Neb) 1.25 mg TID INH 04/30/17 20:00 05/30/17 19:59 05/03/17 07:05 1.25 MG Insulin Glargine (Lantus Solostar Pen) 25 units HS SQ 04/30/17 21:00 05/29/17 20:59 05/02/17 21:01 25 UNITS Insulin Glargine (Lantus Solostar Pen) 10 units DAILYBB SC 05/02/17 06:30 06/01/17 06:29 05/03/17 07:25 10 UNITS Prednisone (PredniSONE TAB) 40 mg DAILY PO 05/03/17 08:00 06/02/17 07:59 05/03/17 09:03 40 MG Vital Signs: Date Time Temp Pulse Resp B/P (MAP) Pulse Ox O2 Delivery O2 Flow Rate FiO2 05/03/17 07:44 Nasal Cannula 4.0 05/03/17 07:24 36.6 79 18 180/85 (116) 92 Room Air 05/03/17 07:07 74 18 96 Nasal Cannula 4.0 05/03/17 00:10 Nasal Cannula 4.0 05/02/17 23:36 36.6 86 18 185/80 (115) 94 Nasal Cannula 4.0 05/02/17 19:14 94 18 98 Nasal Cannula 4.0 05/02/17 16:07 36.4 18 161/83 (109) 95 Nasal Cannula 4.0 05/02/17 16:00 95 Nasal Cannula 4.0 05/02/17 15:05 91 18 97 Nasal Cannula 4.0 Laboratory Results: Last 24 Hours Test 05/02/17 11:39 1/1/18 16:35 05/02/17 19:53 05/03/17 07:30 Bedside Glucose 178 mg/dl 189 mg/dl 310 mg/dl 114 mg/dl
--- NOTE | 2017-05-03 13:23 | Orthopedic Consultation ---
Orthopedic Consultation Date of Consultation: May 03, 2017. Attending Physician: Lawrence Nicole MD Reason for Consultation: Neck and arm pain History of Present Illness This is a 61-year-old female that's noting worsening pain numbness and tingling involving the left interscapular region and left arm. Doesn't extend down below the wrist into the fingers. She's been noting significant increase in weakness involving left hand over the past several months. She is not had any recent injections for these symptoms. She has have a history of undergoing several cervical spine procedures including a multilevel anterior fusion as well as a single level fusion of C3 4. She denies any precipitating trauma fall or event. She is right-hand dominant denies any right arm symptoms. She is concerned about her loss of weakness and of course the pain. Past Medical/Surgical History Medical Problems: (1) Acute bronchitis Status: Acute (2) COPD exacerbation Status: Acute (3) COPD exacerbation Status: Acute (4) Febrile illness Status: Acute (5) Fever Status: Acute (6) Hypoxia Status: Acute (7) Respiratory failure Status: Acute (8) Sepsis Status: Acute (9) SIRS (systemic inflammatory response syndrome) Status: Acute (10) Tachycardia Status: Acute Family History Cancer Diabetes mellitus FATHER Lung disease FATHER BROTHER Social History Smoking Status: Former Smoker Drug Use: none Marital Status: Housing Status: lives with family Occupation Status: disabled Allergies Coded Allergies: Sulfamethoxazole w/Trimethoprim (Verified Allergy, Unknown, RASH, 04/29/17 ) Home Medications Scheduled Alpha1-Proteinase Inhibitor (H (Prolastin-C), Unknown Dose UNKNOWN DIRECTED Aspirin (Aspirin Ec), 81 MG PO DAILY Budesonide (Pulmicort Respules 0.5MG/2ML), 2 ML INH DAILY Budesonide (Nasal) (Rhinocort Allergy), 2 SPRAYS NA DAILY Calcium/Vitamin D (Os-[place] 500 Plus D), 1 TAB PO QAM Cholecalciferol (Vitamin D3), 1 TAB PO DAILY Citalopram Hydrobromide (Celexa), 40 MG PO DAILY Cyanocobalamin (B-12), 1,000 MCG PO QAM Fluticasone Furoate-Vilanterol (Breo Ellipta), 1 PUFF INH DAILY Gabapentin (Gabapentin), 100 MG PO TID Home O2 Therapy (Oxygen), 5-6 LITER NA CONTINOUS Insulin Glargine (Basaglar Kwikpen), 20 UNITS SQ HS Metformin HCl (Metformin HCl), 500 MG PO BID Morphine Sulfate (Morphine Sulfate Er), 30 MG PO BID Pantoprazole (Pantoprazole Sodium), 40 MG PO DAILY Potassium Chloride (Micro-K Ext Rel), 20 MEQ PO QAM Ranitidine Hcl (Zantac), 300 MG PO BID Roflumilast (Daliresp), 500 MCG PO QAM Tiotropium [place] (Spiriva Handihaler), 1 PUFF INH QAM Scheduled PRN Albuterol Hfa (Ventolin Hfa), 2 PUFFS INH Q4 PRN for SOB/Wheezing Cyclobenzaprine HCl (Cyclobenzaprine HCl), 5-10 MG PO BID PRN for Muscle Spasms Guaifenesin [place] (Guaifenesin Er), 600 MG PO Q12H PRN for Cough Ibuprofen (Motrin), 600 MG PO Q6H PRN for Pain Insulin Aspart (Novolog), 5 UNITS SQ TIDM PRN for PRN Morphine Sulfate (Morphine Sulfate), 5-10 MG PO Q4 PRN for breakthrough pain Polyethylene Glycol 3350 (Miralax), 17 GM PO DAILY PRN for Consult Miscellaneous Medications Morphine Sulfate-Sodium Chlori (Morphine Sulfate 0.5-0.9 mg/ml-%) Current Inpatient Medications Current Inpatient Medications Medications (Trade) Dose Ordered Sig/Aram Route Start Time Stop Time Status Last Admin Dose Admin Enoxaparin Sodium (Lovenox Inj) 40 mg Q24H SQ 04/29/17 16:00 05/29/17 15:59 05/02/17 16:00 40 MG Acetaminophen (Tylenol Tab) 650 mg Q4H PRN PO 04/29/17 13:45 05/29/17 13:44 05/01/17 07:32 650 MG Ondansetron HCl (Zofran Inj) 4 mg Q6H PRN IV 04/29/17 13:45 05/29/17 13:44 Albuterol (Ventolin Hfa Inhaler) 2 puffs Q4 PRN INH 04/29/17 14:00 05/29/17 13:59 Aspirin (Ecotrin Tab) 81 mg DAILY PO 04/30/17 08:00 05/30/17 08:59 05/03/17 07:17 81 MG Budesonide (Rhinocort Aq Nasal [place]) 2 sprays DAILY NA 04/30/17 08:00 05/30/17 08:59 05/03/17 07:19 2 SPRAYS Calcium/Vitamin D (Caltrate Plus Tab) 1 tab QAM PO 04/30/17 08:00 05/30/17 08:59 05/03/17 07:17 1 TAB Cholecalciferol (Vitamin D Tab) 1,000 inter.unit DAILY PO 04/30/17 08:00 05/30/17 08:59 05/03/17 07:18 1,000 INTER.UNIT Citalopram Hydrobromide (celeXA TAB) 40 mg DAILY PO 04/30/17 08:00 05/30/17 08:59 05/03/17 07:17 40 MG Cyclobenzaprine HCl (Flexeril Tab) 5 mg BID PRN PO 04/29/17 14:00 05/29/17 13:59 Gabapentin (Neurontin Cap) 100 mg TID PO 04/29/17 16:00 05/29/17 15:59 05/03/17 13:08 100 MG Guaifenesin (Mucinex Contr Rel Tab) 600 mg Q12H PRN PO 04/29/17 14:00 05/29/17 13:59 05/02/17 16:32 600 MG Insulin Aspart (novoLOG ASPART) SLIDING SCALE ACHS SQ 04/29/17 16:30 05/29/17 16:29 05/03/17 13:08 4 UNITS Morphine Sulfate (Roxanol Oral Soln) 5 mg Q4 PRN PO 04/29/17 14:00 05/13/17 13:59 05/03/17 10:43 5 MG Pantoprazole Sodium (Protonix Tab) 40 mg DAILY PO 04/30/17 08:00 05/30/17 08:59 05/03/17 07:18 40 MG Potassium Chloride (Klor-Con M10) 20 meq QAM PO 04/30/17 08:00 05/30/17 08:59 05/03/17 07:18 20 MEQ Ranitidine HCl (zANTac TAB) 150 mg BID PO 04/29/17 20:00 05/29/17 20:59 05/03/17 07:18 150 MG Roflumilast (Daliresp Tab) 500 mcg QAM PO 04/30/17 08:00 05/30/17 08:59 05/03/17 07:18 500 MCG Tiotropium [place] (Spiriva Handihaler Inhaler) 1 puff QAM INH 04/30/17 08:00 05/30/17 08:59 05/03/17 07:18 1 PUFF Cyanocobalamin (Vitamin B-12 Tab) 1,000 mcg QAM PO 04/30/17 08:00 05/30/17 08:59 05/03/17 07:18 1,000 MCG Miscellaneous Information (Order Awaiting Action) 1 ea QS N/A 04/29/17 16:00 05/29/17 15:59 Morphine Sulfate (Oramorph Sr Tab) 30 mg BID PO 04/29/17 20:00 05/29/17 20:59 05/03/17 07:23 30 MG Polyethylene (Miralax Powder Packet) 17 gm DAILY PRN PO 04/29/17 14:00 05/29/17 13:59 Doxycycline Hyclate (Vibramycin Cap) 100 mg BID PO 04/29/17 20:00 05/06/17 20:59 05/03/17 07:18 100 MG Cefepime HCl 1000 mg/Syringe 11 ml @ 5.5 mls/min Q8@0400,1200,2000 IV 04/29/17 20:00 05/06/17 19:59 05/03/17 11:59 5.5 MLS/MIN Heparin Sodium (Porcine) (Heparin 100 Unit/ml 5ml Flush) 5 ml PRN PRN IV 04/29/17 21:15 05/29/17 21:14 05/03/17 11:59 5 ML Heparin Sodium (Porcine) (Heparin 100 Unit/ml 5ml Flush) 5 ml PRN PRN IV 04/29/17 23:30 05/29/17 23:29 05/03/17 08:30 5 ML Ipratropium [place] (Atrovent 0.02% 0.5MG/2.5ML Neb) 0.5 mg TID INH 04/30/17 20:00 05/30/17 19:59 05/03/17 07:05 0.5 MG Levalbuterol (Xopenex 1.25MG/ 0.5ML Neb) 1.25 mg TID INH 04/30/17 20:00 05/30/17 19:59 05/03/17 07:05 1.25 MG Insulin Glargine (Lantus Solostar Pen) 25 units HS SQ 04/30/17 21:00 05/29/17 20:59 05/02/17 21:01 25 UNITS Insulin Glargine (Lantus Solostar Pen) 10 units DAILYBB SC 05/02/17 06:30 06/01/17 06:29 05/03/17 07:25 10 UNITS Prednisone (PredniSONE TAB) 40 mg DAILY PO 05/03/17 08:00 06/02/17 07:59 05/03/17 09:03 40 MG Physical Exam Date Time Temp Pulse Resp B/P (MAP) Pulse Ox O2 Delivery O2 Flow Rate FiO2 05/03/17 07:44 Nasal Cannula 4.0 05/03/17 07:24 36.6 79 18 180/85 (116) 92 Room Air 05/03/17 07:07 74 18 96 Nasal Cannula 4.0 05/03/17 00:10 Nasal Cannula 4.0 05/02/17 23:36 36.6 86 18 185/80 (115) 94 Nasal Cannula 4.0 05/02/17 19:14 94 18 98 Nasal Cannula 4.0 05/02/17 16:07 36.4 18 161/83 (109) 95 Nasal Cannula 4.0 05/02/17 16:00 95 Nasal Cannula 4.0 05/02/17 15:05 91 18 97 Nasal Cannula 4.0 Patient stands and an plates with a narrow steady gait. She has well-healed incisions along the anterior cervical spine. She is marked limitations with cervical extension and does reproduce interscapular pain with cervical extension. Cervical flexion rotation also limited but not painful. On exam she has no Tinel's sign. 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 Biceps triceps relatively symmetric. There are sensation changes to left lower extremity compared to the right. Laboratory Results Last 24 Hours Test 05/02/17 16:35 05/02/17 19:53 05/03/17 07:30 05/03/17 11:16 Bedside Glucose 189 mg/dl 310 mg/dl 114 mg/dl 115 mg/dl Assessment & Plan Assessment cervical spinal stenosis C6 7 followed by C7-T1. Plan I had discussion with this patient reviewing her MRI findings and x-rays. An MRI she does demonstrate severe foraminal disease C67 bilaterally. She also developing disease at C7-T1. This point she could consider consultation with pain management for epidural injections. She does understand this would not alleviate pressure nerves or improve her strength. In any reduction pain with most likely be temporary. In light of the long fusion construct above the C6 7 level without expect this to propagate worsen over time. She could consider surgical intervention. Would require an anterior cervical discectomy and fusion C6 7 possibly C7-T1. Risks benefits pros cons and alternatives were outlined in detail. Risk include but not limited to from anesthesia blindness sterile paralysis nerve damage but last current transfusion infection requiring reoperation benefits of hopefully being marked improvement of her radicular complaints. At this time she is considering surgical intervention. We will await medical evaluation and pursue surgery as soon as possible.
[2017-05-03 14:23] VITALS: PULSE 78; O2SAT 97
[2017-05-03 16:00] VITALS: O2SAT 93
[2017-05-03 16:09] VITALS: BP_SYST 176; BP_SYST 187; BP_DIAS 76; BP_DIAS 81; PULSE 84; TEMP 37; O2SAT 93
[2017-05-03] MEDS: ENOXAPARIN 40 MG/0.4 ML SYR SQ SCH (16:11)
--- NOTE | 2017-05-03 17:25 | Progress Note ---
Internal Med Progress Note Date of Service: May 03, 2017. Provider Documentation: SUBJECTIVE: says sob is improving has cough but not bringing sputum but getting better has neck pain no chest pain OBJECTIVE: Vital Signs-as noted below Exam: General-alert and oriented. Not in distress ENT-Normal hearing Neck-no neck masses supple Lungs-cta b/l no wheezing present no crackles Heart-S1 and S2 heard regular rate and rthym, no murmurs Abdomen-Soft bowel sounds present non tender no distension Extremities-no edema no erythema Neuro-alert and awake moves extremities Lab data as noted below. ASSESSMENT & PLAN: 1. Chronic obstructive pulmonary disease exacerbation with possible bibasilar pneumonia. On cefepime and doxycycline iv steroids nebs atc and prn Pulmonary consulted per patient request slow improvement will continue same for now. changed steroids o po mostly at baseline will monitor l. 2. Diabetes type 2, on insulin. holding metformin on Lantus and iss will monitor while on steroids. 310/114/115/118 3. Esophageal reflux. On PPI and also ranitidine. 4. Chronic back pain. to continue home meds. 5. Depression. On Celexa. 6. Cervical spondylosis. MRI suggesting posterior disc herniation at C3-C4 with mild cervical cord myelomalacia. Plan for surgery this week 7. Deep venous thrombosis prophylaxis . subQ Lovenox. 8. Code status. Full DISPOSITION to be determined Vital Signs: Date Time Temp Pulse Resp B/P (MAP) Pulse Ox O2 Delivery O2 Flow Rate FiO2 05/03/17 16:09 37.0 84 18 176/76 (109) 93 Nasal Cannula 2.0 187/81 (116) 05/03/17 14:23 78 18 97 Nasal Cannula 2.0 05/03/17 07:44 Nasal Cannula 4.0 05/03/17 07:24 36.6 79 18 180/85 (116) 92 Room Air 05/03/17 07:07 74 18 96 Nasal Cannula 4.0 05/03/17 00:10 Nasal Cannula 4.0 05/02/17 23:36 36.6 86 18 185/80 (115) 94 Nasal Cannula 4.0 05/02/17 19:14 94 18 98 Nasal Cannula 4.0 Lab Results: Results Past 24 Hours Test 05/02/17 19:53 05/03/17 07:30 05/03/17 11:16 05/03/17 16:53 Range/Units Bedside Glucose 310 114 115 118 70-90 mg/dl
[2017-05-03 19:11] VITALS: PULSE 78; O2SAT 97
[2017-05-03] MEDS: INSULIN GLARGINE SOLOSTAR 100 UNITS/ML 3 ML PEN SQ SCH (20:28)
[2017-05-04] VITALS (9 sets, daily range): BP systolic 146–185; BP diastolic 73–81; PULSE 68–103; TEMP 36.4–36.8; O2SAT 95–98
[2017-05-04] MEDS: CEFEPIME IV 1,000 MG in SYRINGE 0 ML IV SCH ×2 (03:48→11:55)
[2017-05-04] MEDS ORDERED: CLONIDINE HCL 0.1 MG TAB PO PRN (04:45)
[2017-05-04 06:05] LABS: BASO % 0.1 %; BASO ABS # 0.01 K/uL (0-0.2); EOS % 0.2 %; EOS ABS # 0.02 K/uL (0-0.5); HEMATOCRIT 34.3 % (37-47); HEMOGLOBIN 11.5 g/dL (12.0-16.0); IG# 0.19 K/uL (0.00-0.02); LYMPH % 26.3 %; LYMPH ABS # 2.97 K/uL (1.2-3.4); MEAN CORPUSCULAR HEMOGLOBIN 28.8 pg (25-34); MEAN CORPUSCULAR HGB CONC 33.5 g/dl (32-36); MONO % 11.1 %; MONO ABS # 1.25 K/uL (0.11-0.59); NEUT % 60.6 %; NEUT ABS # 6.87 K/uL (1.4-6.5); NUCLEATED RED BLOOD CELL ABS 0.02 K/uL (0-0); PLATELET COUNT 249 K/uL (130-400); RED CELL DISTRIBUTION WIDTH CV 13.4 % (11.5-14.5); RED CELL DISTRIBUTION WIDTH SD 42.1 fL (36.4-46.3); WHITE BLOOD COUNT 11.31 K/uL (4.8-10.8)
[2017-05-04 06:43] LABS: CALCIUM 8.8 mg/dl (8.5-10.1); CREATININE 0.91 mg/dl (0.60-1.20); POTASSIUM 3.5 mmol/L (3.5-5.1)
[2017-05-04] MEDS: TIOTROPIUM BROMIDE 5 PUFF/90 MCG INH INH SCH (07:52)
[2017-05-04] MEDS: GABAPENTIN 100 MG CAP PO SCH ×3 (07:52→20:19)
[2017-05-04] MEDS: RANITIDINE HCL 150 MG TAB PO SCH ×2 (07:53→20:20)
[2017-05-04] MEDS: PANTOprazole SOD 40 MG TAB PO SCH (07:53)
[2017-05-04] MEDS: DOXYCYCLINE HYCLATE 100 MG CAP PO SCH ×2 (07:53→20:19)
[2017-05-04] MEDS: ROFLUMILAST 500 MCG TAB PO SCH (07:53)
[2017-05-04] MEDS: CHOLECALCIFEROL 1000 INTER.UNIT TAB PO SCH (07:54)
[2017-05-04] MEDS: BUDESONIDE AQ (RHINOCORT AQ) NASAL SPRAY 32 MCG SCH (07:54)
[2017-05-04] MEDS: CITALOPRAM 40 MG TAB PO SCH (07:54)
[2017-05-04] MEDS: CALCIUM 600MG + VIT D 400 IU TAB PO SCH (07:54)
[2017-05-04] MEDS: POTASSIUM CHLORIDE 10 MEQ TABCR PO SCH (07:54)
[2017-05-04] MEDS: ASPIRIN 81 MG ECTAB PO SCH (07:54)
[2017-05-04] MEDS: CYANOCOBALAMIN 500 MCG TAB (VIT B-12) PO SCH (07:55)
[2017-05-04] MEDS: MoRPHine SULFATE CR 15 MG TAB (MS CONTIN) PO SCH ×2 (08:01→20:17)
[2017-05-04] MEDS: MoRPHine SULFATE 5 MG/0.25 ML UDP PO PRN ×3 (08:02→18:15)
[2017-05-04] MEDS: IPRATROPIUM BROMIDE NEB SOLN 0.02% 2.5 ML VIAL INH SCH ×3 (08:09→19:43)
[2017-05-04] MEDS: LEVALBUTEROL 1.25MG/0.5ML NEB INH SCH ×3 (08:09→19:42)
[2017-05-04] MEDS: INSULIN ASPART 100 UNITS/ML 3 ML PEN SQ SCH ×4 (08:56→20:33)
--- NOTE | 2017-05-04 14:16 | Progress Note ---
Progress Note Date of Service May 04, 2017. Progress Note Met with the patient today and her daughter. We discussed her diagnosis in and surgical procedure. We are planning for an ACDF C6 7 possible C7-T1. Were hoping to perform this on Tuesday. All questions are dressed. Patient understands and agrees.
--- NOTE | 2017-05-04 15:34 | Progress Note ---
Internal Med Progress Note Date of Service: May 04, 2017. Provider Documentation: SUBJECTIVE: says sob is back to her baseline cough improved afebrile ambulating fine no chest pain has neck pain ok for neck surgery during this hospitalization OBJECTIVE: Vital Signs-as noted below Exam: General-alert and oriented. Not in distress ENT-Normal hearing Neck-no neck masses supple Lungs-cta b/l no wheezing present no crackles Heart-S1 and S2 heard regular rate and rthym, no murmurs Abdomen-Soft bowel sounds present non tender no distension Extremities-no edema no erythema Neuro-alert and awake moves extremities Lab data as noted below. ASSESSMENT & PLAN: 1. Chronic obstructive pulmonary disease exacerbation with possible bibasilar pneumonia. On cefepime and doxycycline iv steroids nebs atc and prn Pulmonary consulted per patient request improved steroid pater d/c cefepime continue doxycycline l. 2. Diabetes type 2, on insulin. holding metformin on Lantus and iss will monitor while on steroids. 126/58/72/152 3. Esophageal reflux. On PPI and also ranitidine. 4. Chronic back pain. to continue home meds. 5. Depression. On Celexa. 6. Cervical spondylosis. MRI suggesting posterior disc herniation at C3-C4 with mild cervical cord myelomalacia. Plan for surgery this Tuesday. patient resp status back to baseline. Ambulating fine. Patient should be at acceptable risk to proceed with surgery 7. Deep venous thrombosis prophylaxis . subQ Lovenox. 8. Code status. Full DISPOSITION to be determined Vital Signs: Date Time Temp Pulse Resp B/P (MAP) Pulse Ox O2 Delivery O2 Flow Rate FiO2 05/04/17 14:32 68 17 97 Nasal Cannula 4.0 05/04/17 08:30 97 Nasal Cannula 4.0 05/04/17 08:09 78 17 97 Nasal Cannula 4.0 05/04/17 07:20 36.5 78 18 154/73 (100) 97 Nasal Cannula 4.0 05/04/17 03:47 70 170/81 (110) 05/04/17 00:15 Nasal Cannula 4.0 05/04/17 00:00 36.4 81 16 185/79 (114) 96 Nasal Cannula 3.0 05/03/17 19:11 78 17 97 Nasal Cannula 3.0 05/03/17 16:09 37.0 84 18 176/76 (109) 93 Nasal Cannula 2.0 187/81 (116) 05/03/17 16:00 93 Nasal Cannula 2.0 Lab Results: Results Past 24 Hours Test 05/03/17 16:53 05/03/17 20:26 05/04/17 05:43 05/04/17 07:34 Range/Units Bedside Glucose 118 126 72 70-90 mg/dl White Blood Count 11.31 4.8-10.8 K/uL Red Blood Count 3.99 4.2-5.4 M/uL Hemoglobin 11.5 12.0-16.0 g/dL Hematocrit 34.3 37-47 % Mean Corpuscular Volume 86.0 80-100 fL Mean Corpuscular Hemoglobin 28.8 25-34 pg Mean Corpuscular Hemoglobin Concent 33.5 32-36 g/dl Platelet Count 249 130-400 K/uL Mean Platelet Volume 9.0 7.4-10.4 fL Neutrophils (%) (Auto) 60.6 % Lymphocytes (%) (Auto) 26.3 % Monocytes (%) (Auto) 11.1 % Eosinophils (%) (Auto) 0.2 % Basophils (%) (Auto) 0.1 % Neutrophils # (Auto) 6.87 1.4-6.5 K/uL Lymphocytes # (Auto) 2.97 1.2-3.4 K/uL Monocytes # (Auto) 1.25 0.11-0.59 K/uL Eosinophils # (Auto) 0.02 0-0.5 K/uL Basophils # (Auto) 0.01 0-0.2 K/uL RDW Standard Deviation 42.1 36.4-46.3 fL RDW Coefficient of Variation 13.4 11.5-14.5 % Immature Granulocyte % (Auto) 1.7 % Immature Granulocyte # (Auto) 0.19 0.00-0.02 K/uL Nucleated RBC Absolute Count (auto) 0.02 0-0 K/uL Nucleated Red Blood Cells % 0.2 % Sodium Level 138 136-145 mmol/L Potassium Level 3.5 3.5-5.1 mmol/L Chloride Level 103 98-107 mmol/L Carbon Dioxide Level 31 21-32 mmol/L Anion Gap 4.0 3-11 mmol/L Blood Urea Nitrogen 26 7-18 mg/dl Creatinine 0.91 0.60-1.20 mg/dl Est Creatinine Clear Calc Drug Dose 65.4 ml/min Estimated GFR () 78.4 Estimated GFR (Non- 67.6 BUN/Creatinine Ratio 28.2 10-20 Random Glucose 58 70-99 mg/dl Calcium Level 8.8 8.5-10.1 mg/dl Magnesium Level 2.2 1.8-2.4 mg/dl Test 05/04/17 11:42 Range/Units Bedside Glucose 152 70-90 mg/dl
[2017-05-04] MEDS: ENOXAPARIN 40 MG/0.4 ML SYR SQ SCH (16:06)
[2017-05-04] MEDS: INSULIN GLARGINE SOLOSTAR 100 UNITS/ML 3 ML PEN SQ SCH (20:32)
[2017-05-05] MEDS: MoRPHine SULFATE 5 MG/0.25 ML UDP PO PRN ×3 (01:05→10:15)
[2017-05-05 06:16] LABS: EOS % 1.6 %; EOS ABS # 0.17 K/uL (0-0.5); HEMATOCRIT 35.1 % (37-47); HEMOGLOBIN 11.5 g/dL (12.0-16.0); IG# 0.16 K/uL (0.00-0.02); LYMPH % 30.3 %; LYMPH ABS # 3.25 K/uL (1.2-3.4); MEAN CORPUSCULAR HEMOGLOBIN 28.2 pg (25-34); MEAN CORPUSCULAR HGB CONC 32.8 g/dl (32-36); MONO ABS # 1.18 K/uL (0.11-0.59); NEUT % 55.6 %; NEUT ABS # 5.98 K/uL (1.4-6.5); PLATELET COUNT 238 K/uL (130-400); RED CELL DISTRIBUTION WIDTH CV 13.4 % (11.5-14.5); RED CELL DISTRIBUTION WIDTH SD 42.4 fL (36.4-46.3); WHITE BLOOD COUNT 10.74 K/uL (4.8-10.8)
[2017-05-05 07:00] LABS: CALCIUM 8.6 mg/dl (8.5-10.1); CREATININE 0.88 mg/dl (0.60-1.20); POTASSIUM 3.8 mmol/L (3.5-5.1)
[2017-05-05] MEDS: IPRATROPIUM BROMIDE NEB SOLN 0.02% 2.5 ML VIAL INH SCH (07:02)
[2017-05-05 07:03] VITALS: PULSE 75; O2SAT 98
[2017-05-05] MEDS: LEVALBUTEROL 1.25MG/0.5ML NEB INH SCH (07:03)
[2017-05-05 07:22] VITALS: BP 137/77; PULSE 79; TEMP 36.4; O2SAT 97
[2017-05-05] MEDS: CHOLECALCIFEROL 1000 INTER.UNIT TAB PO SCH (08:27)
[2017-05-05] MEDS: PANTOprazole SOD 40 MG TAB PO SCH (08:27)
[2017-05-05] MEDS: CALCIUM 600MG + VIT D 400 IU TAB PO SCH (08:27)
[2017-05-05] MEDS: ASPIRIN 81 MG ECTAB PO SCH (08:27)
[2017-05-05] MEDS: MoRPHine SULFATE CR 15 MG TAB (MS CONTIN) PO SCH (08:27)
[2017-05-05] MEDS: DOXYCYCLINE HYCLATE 100 MG CAP PO SCH (08:27)
[2017-05-05] MEDS: CYANOCOBALAMIN 500 MCG TAB (VIT B-12) PO SCH (08:27)
[2017-05-05] MEDS: BUDESONIDE AQ (RHINOCORT AQ) NASAL SPRAY 32 MCG SCH (08:28)
[2017-05-05] MEDS: POTASSIUM CHLORIDE 10 MEQ TABCR PO SCH (08:28)
[2017-05-05] MEDS: GABAPENTIN 100 MG CAP PO SCH (08:28)
[2017-05-05] MEDS: ROFLUMILAST 500 MCG TAB PO SCH (08:28)
[2017-05-05] MEDS: CITALOPRAM 40 MG TAB PO SCH (08:28)
[2017-05-05] MEDS: RANITIDINE HCL 150 MG TAB PO SCH (08:29)
--- NOTE | 2017-05-05 08:33 | Progress Note ---
Progress Note Date of Service May 05, 2017. Progress Note Patient will be made nothing by mouth from midnight tonight. She is scheduled for ACDF C6 7 possible C7-T1 first thing tomorrow morning.
[2017-05-05] MEDS: INSULIN ASPART 100 UNITS/ML 3 ML PEN SQ SCH (08:34)
[2017-05-05] MEDS: TIOTROPIUM BROMIDE 5 PUFF/90 MCG INH INH SCH (09:04)
[2017-05-05 10:46] VITALS: Ht 157.5 cm; Wt 86.4 kg
--- NOTE | 2017-05-05 10:46 | NUR ---
DIABETES Pt identified for low BG < 70mg/dl via BG report. BG 131 on admit. A1c 6.1% (eAG 128) on 03/07. Current Meds: 25units in PM (AM Lantus discontinued yesterday) and Novolog 1:7 plus CF:20 with BG goal of 110-140. Fasting BG low (55/67) this AM. Other values [phone] yesterday. Suspect lower values d/t weaning steroids (IV to po). Please see [facility]: Inpatient Teaching Record (note pad icon) for additional information. INPATIENT RECOMMENDATIONS: 1. Fasting BG < 70 - consider decreasing Lantus slightly to prevent repeat lows. Addendum: 05/05/17 at [address] Amended: Links added.
--- NOTE | 2017-05-05 10:54 | NUR ---
id: pt alert and oriented times four. rings for assistance. denying pain nausea sob at this time. takes roxanol for chronic back pain. pt npo starting at midnight tonight for OR tomorrow am. pt aware. will continue to monitor.
--- NOTE | 2017-05-05 10:58 | NUR ---
Patient identified with a LOS >5 days. 61 year old female admitted with pneumonia, COPD who lives with her in their home in [place]. Patient's is supportive. Patient's home is one level and she has been functionally independent. Patient has been on disability since 2008. Patient has oxygen at home thru [facility]. Patient plans on going home and will follow with Dr. Okeefe as an outpatient. Will follow for discharge planning.
[2017-05-05 11:34] VITALS: BP 137/77; PULSE 79; TEMP 36.4; O2SAT 97
--- NOTE | 2017-05-05 11:50 | Discharge Instructions ---
Discharge Instructions Date of Service May 05, 2017. Admission Reason for Admission: Copd Exacerbation, Pneumonia Discharge Discharge Diagnosis / Problem: COPD EX, PNEUMONIA Discharge Goals Goal(s): Decrease discomfort, Improve function Activity Recommendations Activity Limitations: resume your previous activity . Instructions / Follow-Up Instructions / Follow-Up FOLLOWUP WITH FAMILY DOCTOR ON May AT 12:45PM FOLLOWUP WITH ORTHOPEDICS NEXT WEEK FOR CERVICAL SPINE SURGERY.( [address] [place] [address] ). CAN USE HOME PREDNISONE IF AVAILABLE FOR PREDNISONE TAPER. Current Hospital Diet Patient's current hospital diet: Diabetes Type 2 Diet Discharge Diet Recommended Diet: Diabetes Type 2 Diet Pending Studies Studies pending at discharge: no Laboratory Results Hemoglobin A1c Test 03/07/17 04:55 Range/Units Estimated Average Glucose 128 mg/dl Hemoglobin A1c 6.1 H 4.5-5.6 % Medical Emergencies . Who to Call and When: Medical Emergencies: If at any time you feel your situation is an emergency, please call 911 immediately. . Non-Emergent Contact Non-Emergency issues call your: Primary Care Provider . . "Provider Documentation" section prepared by Lawrence Nicole. . VTE Core Measure Inpt VTE Proph given/why not?: Enoxaparin (Lovenox)SQ
[2017-05-05] MEDS ORDERED: PRED10TA PO ×2 (11:52→11:54)
--- NOTE | 2017-05-05 12:21 | NUR ---
a: pt d/c to home. d/c instructions given to patient. pt has prednisone from home. no further questions or concerns. wheeled to front entrance.
--- NOTE | 2017-05-05 19:54 | Progress Note ---
Internal Med Progress Note Date of Service: May 05, 2017. Provider Documentation: SUBJECTIVE: says sob is back to her baseline cough resolved afebrile ambulating ok denies chest pain ok for discharge OBJECTIVE: Vital Signs-as noted below Exam: General-alert and oriented. Not in distress ENT-Normal hearing Neck-no neck masses supple Lungs-cta b/l no wheezing present no crackles Heart-S1 and S2 heard regular rate and rthym, no murmurs Abdomen-Soft bowel sounds present non tender no distension Extremities-no edema no erythema Neuro-alert and awake moves extremities Lab data as noted below. ASSESSMENT & PLAN: 1. Chronic obstructive pulmonary disease exacerbation with possible bibasilar pneumonia. On cefepime and doxycycline iv steroids nebs atc and prn Pulmonary consulted per patient request improved steroid pater completed abx course d/c on steroid taper and home inhalers l. 2. Diabetes type 2, on insulin. holding metformin on Lantus and iss will monitor while on steroids. d/c on home meds 3. Esophageal reflux. On PPI and also ranitidine. 4. Chronic back pain. to continue home meds. 5. Depression. On Celexa. 6. Cervical spondylosis. MRI suggesting posterior disc herniation at C3-C4 with mild cervical cord myelomalacia. Plan for surgery this Tuesday. patient resp status back to baseline. Ambulating fine. Patient should be at acceptable risk to proceed with surgery. plan for surgery next week discharged home Vital Signs: Date Time Temp Pulse Resp B/P (MAP) Pulse Ox O2 Delivery O2 Flow Rate FiO2 05/05/17 11:34 36.4 79 16 97 Nasal Cannula 05/05/17 09:15 Nasal Cannula 4.0 05/05/17 07:22 36.4 79 16 137/77 (97) 97 Nasal Cannula 4.0 05/05/17 07:03 75 16 98 Nasal Cannula 4.0 05/05/17 00:00 Nasal Cannula 4.0 05/04/17 23:58 36.8 81 20 164/81 (108) 95 Nasal Cannula 4.0 05/04/17 20:00 Nasal Cannula 4.0 Lab Results: Results Past 24 Hours Test 05/05/17 05:55 05/05/17 07:31 Range/Units White Blood Count 10.74 4.8-10.8 K/uL Red Blood Count 4.08 4.2-5.4 M/uL Hemoglobin 11.5 12.0-16.0 g/dL Hematocrit 35.1 37-47 % Mean Corpuscular Volume 86.0 80-100 fL Mean Corpuscular Hemoglobin 28.2 25-34 pg Mean Corpuscular Hemoglobin Concent 32.8 32-36 g/dl Platelet Count 238 130-400 K/uL Mean Platelet Volume 9.0 7.4-10.4 fL Neutrophils (%) (Auto) 55.6 % Lymphocytes (%) (Auto) 30.3 % Monocytes (%) (Auto) 11.0 % Eosinophils (%) (Auto) 1.6 % Basophils (%) (Auto) 0.0 % Neutrophils # (Auto) 5.98 1.4-6.5 K/uL Lymphocytes # (Auto) 3.25 1.2-3.4 K/uL Monocytes # (Auto) 1.18 0.11-0.59 K/uL Eosinophils # (Auto) 0.17 0-0.5 K/uL Basophils # (Auto) 0.00 0-0.2 K/uL RDW Standard Deviation 42.4 36.4-46.3 fL RDW Coefficient of Variation 13.4 11.5-14.5 % Immature Granulocyte % (Auto) 1.5 % Immature Granulocyte # (Auto) 0.16 0.00-0.02 K/uL Sodium Level 139 136-145 mmol/L Potassium Level 3.8 3.5-5.1 mmol/L Chloride Level 104 98-107 mmol/L Carbon Dioxide Level 29 21-32 mmol/L Anion Gap 6.0 3-11 mmol/L Blood Urea Nitrogen 23 7-18 mg/dl Creatinine 0.88 0.60-1.20 mg/dl Est Creatinine Clear Calc Drug Dose 67.6 ml/min Estimated GFR () 81.6 Estimated GFR (Non- 70.4 BUN/Creatinine Ratio 25.6 10-20 Random Glucose 55 70-99 mg/dl Calcium Level 8.6 8.5-10.1 mg/dl Magnesium Level 2.1 1.8-2.4 mg/dl Bedside Glucose 67 70-90 mg/dl
--- NOTE | 2017-05-05 20:05 | Discharge Summary ---
Discharge Summary Date of Service May 05, 2017. Discharge Summary Admission Date: Apr 29, 2017 at 13:46 Discharge Date: May 05, 2017 Discharge Disposition: Home Principal Diagnosis: COPD EX PNEUMONIA? CERVICAL SPONDYLOSIS Secondary Diagnoses/Problems: type 2 diabetes, on insulin; severe COPD with chronic hypoxemic respiratory failure, on home O2; esophageal reflux; major depression; chronic pain in the lumbar region, on narcotics; chronic rhinitis; alpha 1 antitrypsin deficiency; history of pulmonary embolism and also history of lymphoma. Procedures: CXR: 1. Emphysema. 2. There are bibasilar airspace opacities, likely representing atelectasis. Correlate clinically for evidence of developing pneumonia/aspiration pneumonitis. CERVICAL SPINE MRI: 1. Limited study due to considerable patient motion. 2. Findings consistent with a prior fusion of C4, C5, and C6. 3. The sagittal images suggest posterior disc herniation at C3-C4 with mild cervical cord myelomalacia. Narrowing of the cervical canal is rather significant with the patient's neck in mild extension , with narrowing of the spinal canal increased by 3 to 4 mm in that position. 4. Bulging disc C6-C7 and C7-T1 with moderate narrowing of the neuroforamina bilaterally at both levels. 5. No abnormal postcontrast enhancement. Consultations: PULMONARY ORTHOPEDICS Medication Reconciliation New Medications: Prednisone Tab (Prednisone) 10 Mg Tab 30 MG PO UD, #12 TAB PREDNISONE 30MG PO DAILY X 2 DAYS THEN PREDNISONE 20MG PO DAILY X 2 DAYS THEN PREDNISONE 10MG PO DAILY X 2 DAYS THEN STOP. Continued Medications: Albuterol Hfa (Ventolin Hfa) 200 Puffs/44361 Mcg Aers 2 PUFFS INH Q4 PRN for SOB/Wheezing, #1 INHALER Alpha1-Proteinase Inhibitor (H (Prolastin-C) 1,000 Mg Inj Unknown Dose UNKNOWN DIRECTED Aspirin (Aspirin Ec) 81 Mg Tab 81 MG PO DAILY Budesonide (Pulmicort Respules 0.5MG/2ML) 0.5 Mg/2 Ml Nebu 2 ML INH DAILY, EA Budesonide (Nasal) (Rhinocort Allergy) 32 Mcg/Act Sandy 2 SPRAYS NA DAILY Calcium/Vitamin D (Os-Oliverio 500 Plus D) Tab 1 TAB PO QAM, 0 Refills Cholecalciferol (Vitamin D3) 1,000 Unit Tab 1 TAB PO DAILY for 90 Days, #90 TAB 3 Refills Citalopram Hydrobromide (Celexa) 40 Mg Tab 40 MG PO DAILY, TAB Cyanocobalamin (B-12) 1,000 Mcg Tab 1000 MCG PO QAM Cyclobenzaprine HCl (Cyclobenzaprine HCl) 5 Mg Tab 5-10 MG PO BID PRN for Muscle Spasms Fluticasone Furoate-Vilanterol (Breo Ellipta) 1 Inh Inh 1 PUFF INH DAILY Gabapentin (Gabapentin) 100 Mg Cap 100 MG PO TID Guaifenesin La (Guaifenesin Er) 600 Mg Tabcr 600 MG PO Q12H PRN for Cough, TAB Home O2 Therapy (Oxygen) Gas 5-6 LITER NA CONTINOUS Ibuprofen (Motrin) 600 Mg Tab 600 MG PO Q6H PRN for Pain, TAB TAKE WITH FOOD Insulin Aspart (Novolog) 100 Units/Ml Inj 5 UNITS SQ TIDM PRN for PRN Insulin Glargine (Basaglar Kwikpen) 100 Unit/Ml Inj 20 UNITS SQ HS Metformin HCl (Metformin HCl) 500 Mg Tab 500 MG PO BID Morphine Sulfate (Morphine Sulfate Er) 30 Mg Tab 30 MG PO BID Morphine Sulfate-Sodium Chlori (Morphine Sulfate 0.5-0.9 mg/ml-%) 1 Milena Milena Morphine Sulfate (Morphine Sulfate) 10 Mg/0.5 Ml Soln 5-10 MG PO Q4 PRN for breakthrough pain Pantoprazole (Pantoprazole Sodium) 40 Mg Tab 40 MG PO DAILY, #30 Polyethylene Glycol 3350 (Miralax) 1 Pow Pow 17 GM PO DAILY PRN for Consult, #527 GM Potassium Chloride (Micro-K Ext Rel) 10 Meq Capcr 20 MEQ PO QAM, CAP Ranitidine Hcl (Zantac) 300 Mg Tab 300 MG PO BID, TAB Roflumilast (Daliresp) 500 Mcg Tab 500 MCG PO QAM Tiotropium [place] (Spiriva Handihaler) 5 Puff/90 Mcg Aerp 1 PUFF INH QAM for 30 Days, #1 INHALER 6 Refills Admission Information HPI (per Admitting provider): : She is a 61-year-old female with significant past medical history including COPD with chronic hypoxic respiratory failure, on O2 therapy; type 2 diabetes; esophageal reflux, on multiple medications; major depression; disk disorder, lumbar region; chronic pain, on narcotics; alpha 1 antitrypsin deficiency; and history of pulmonary embolism and also history of lymphoma. Apparently, she has had pneumonia in March. At that time, she was treated with cefepime and Levaquin. She went to see her primary care physician today and was noted to have fever of 101 at the office with a tachycardia of 140. On asking questions, she complained to have more shortness of breath and cough, but did not recognize any fever. She did not have any problem with urine or bowel habit, but she was sent to Emergency Room for further evaluation. She has chronic pain, which is not worse. She does not have any leg swelling. She does not have any numbness or tingling in the extremities and she does not have any other neurological symptoms. In the ER, she was noted to have a temperature of 38.3, heart rate went down to 107, saturation 93% on 4 liters and the chest x-ray did show possible bibasilar pneumonia. Her UA is still pending. She was started with cefepime and she was advised for admission. Physical Exam (per Admitting): GENERAL: On examination in the Emergency Room, she was having moderate distress, shortness of breath at rest. VITAL SIGNS: Temperature 38.3, pulse was initially 119 and came down to 107, saturation 93% on 4 liters, blood pressure 134/61. HEENT: Unremarkable. NECK: Supple. No JVD, no bruit. CHEST: Decreased breath sounds with minimal wheezing anteriorly, minimal crackles at the bases. HEART: S1 and S2 regular. No murmur. ABDOMEN: Soft, benign, nontender, no organomegaly. Bowel sounds present. EXTREMITIES: Trace edema bilaterally. MUSCULOSKELETAL SYSTEM: Did not show any acute arthritis involving any joint. CENTRAL NERVOUS SYSTEM: She was alert, awake, oriented x3. She did not have any focal neuro deficit. Hospital Course 1. Chronic obstructive pulmonary disease exacerbation with possible bibasilar pneumonia. On cefepime and doxycycline iv steroids nebs atc and prn Pulmonary consulted per patient request improved steroid pater completed abx course d/c on steroid taper and home inhalers l. 2. Diabetes type 2, on insulin. holding metformin on Lantus and iss will monitor while on steroids. d/c on home meds 3. Esophageal reflux. On PPI and also ranitidine. 4. Chronic back pain. to continue home meds. 5. Depression. On Celexa. 6. Cervical spondylosis. MRI suggesting posterior disc herniation at C3-C4 with mild cervical cord myelomalacia. Plan for surgery this Tuesday. patient resp status back to baseline. Ambulating fine. Patient should be at acceptable risk to proceed with surgery. plan for surgery next week discharged home Total time spent on discharge = 40MINUTES This includes examination of the patient, discharge planning, medication reconciliation, and communication with other providers. Discharge Instructions Discharge Instructions Date of Service May 05, 2017. Admission Reason for Admission: Copd Exacerbation, Pneumonia Discharge Discharge Diagnosis / Problem: COPD EX, PNEUMONIA Discharge Goals Goal(s): Decrease discomfort, Improve function Activity Recommendations Activity Limitations: resume your previous activity . Instructions / Follow-Up Instructions / Follow-Up FOLLOWUP WITH FAMILY DOCTOR ON May AT 12:45PM FOLLOWUP WITH ORTHOPEDICS NEXT WEEK FOR CERVICAL SPINE SURGERY.( [address] [place], [place] [id number] ). CAN USE HOME PREDNISONE IF AVAILABLE FOR PREDNISONE TAPER. Current Hospital Diet Patient's current hospital diet: Diabetes Type 2 Diet Discharge Diet Recommended Diet: Diabetes Type 2 Diet Pending Studies Studies pending at discharge: no Laboratory Results Hemoglobin A1c Test 03/07/17 04:55 Range/Units Estimated Average Glucose 128 mg/dl Hemoglobin A1c 6.1 H 4.5-5.6 % Medical Emergencies . Who to Call and When: Medical Emergencies: If at any time you feel your situation is an emergency, please call 911 immediately. . Non-Emergent Contact Non-Emergency issues call your: Primary Care Provider . . "Provider Documentation" section prepared by Lawrence Nicole. . VTE Core Measure Inpt VTE Proph given/why not?: Enoxaparin (Lovenox)SQ
[2017-07-01] MEDS ORDERED: RXC5 PO (12:20)
[2017-11-22] MEDS ORDERED: MORP15TA PO (15:15)
[2017-11-22] MEDS ORDERED: GUAI1TAB75 PO (15:15)
[2017-11-22] MEDS ORDERED: FLUT1AER14 INH (16:50)
[2017-11-25] MEDS ORDERED: CEFU1TAB35 OR (13:56)
[2017-11-25] MEDS ORDERED: DXY100 PO (13:56)
[2017-11-25] MEDS ORDERED: XPNINS1255 INH (13:57)
[2017-11-25] MEDS ORDERED: NEBMAC (13:57)
[2017-11-25] MEDS ORDERED: PRED20TA2 PO ×2 (13:59→14:02)
== END 2017-05-05 12:24 | disposition home or self-care (01) | DRG 190 ==
LOC: C.EDB 10:56 → C.4E 13:46 → CANRESERV 14:02 → ENRESERV 14:02
PROVIDERS: ADMIT Internal Medicine; ATTEND Internal Medicine
DX: J44.0 Chronic obstructive pulmonary disease with (acute) lower respiratory infection (principal); J44.1 Chronic obstructive pulmonary disease with (acute) exacerbation; J18.9 Pneumonia, unspecified organism; J96.11 Chronic respiratory failure with hypoxia; M48.02 Spinal stenosis, cervical region; E11.9 Type 2 diabetes mellitus without complications; E88.01 Alpha-1-antitrypsin deficiency; F32.9 Major depressive disorder, single episode, unspecified; K21.9 Gastro-esophageal reflux disease without esophagitis; M50.20 Other cervical disc displacement, unspecified cervical region; M47.892 Other spondylosis, cervical region; Z85.72 Personal history of non-Hodgkin lymphomas; Z83.3 Family history of diabetes mellitus; Z87.891 Personal history of nicotine dependence; Z79.82 Long term (current) use of aspirin; Z79.4 Long term (current) use of insulin; Z88.2 Allergy status to sulfonamides; Z99.81 Dependence on supplemental oxygen; Z98.1 Arthrodesis status; Z79.891 Long term (current) use of opiate analgesic; Z79.84 Long term (current) use of oral hypoglycemic drugs

== ENCOUNTER 2017-07-01 06:14 | Observation (INO) | payer OTHER ==
[2017-06-10 09:04] VITALS: BMI 31.0
[~2017-07-01] VITALS: Ht 157.5 cm; Wt 78.8 kg
[2017-07-01] VITALS (18 sets, daily range): BP systolic 122–160; BP diastolic 63–73; PULSE 16–89; TEMP 36.7–37.1; O2SAT 92–98; Ht 157.5 cm; Wt 78.8 kg
[~2017-07-01 06:14] MED LIST changes: -ALBINS/ INH; -ARFO15NE INH; +ASPI81TA28 PO; -ATRINS NEB; +BUDE1SUS8; -GUAI1TAB75 PO; +IBUP-1450 PO; -INSU100I23 SC; +INSU100I23 SQ; +LACTATED RINGER'S 1000ML 1,000 ML IV SCH; -MCM600 PO; +NRN100 PO; +PLMINSR5 INH; -PRED-301 PO; -SPRIN INH; -VFND200 PO; -XPNINS125 NEB; +[UNRECOGNIZED DRUG - CODE]
[2017-07-01] MEDS ORDERED: LIDOCAINE HCL 2% 2 ML VIAL (20MG/ML) ONE (06:30)
[2017-07-01] MEDS ORDERED: GLYCOPYRROLATE INJ 0.2 MG/ML VIAL ONE ×2 (06:30→08:34)
[2017-07-01] MEDS ORDERED: FENTANYL CITRATE INJ 50 MCG/1 ML 2 ML VIAL ONE (06:30)
[2017-07-01] MEDS ORDERED: DEXAMETHASONE SOD INJ 4 MG/ML VIAL ONE ×2 (06:30→08:34)
[2017-07-01] MEDS ORDERED: PROPOFOL IV EMULSION 10 MG/ML 20 ML VIAL IV ONE ×2 (06:30→08:34)
[2017-07-01] MEDS ORDERED: ONDANSETRON INJ 2 MG/ML 2 ML VIAL ONE (06:30)
[2017-07-01] MEDS ORDERED: MIDAZOLAM HCL 1 MG/ML 2ML VIAL ONE (06:30)
[2017-07-01] MEDS ORDERED: ROCURONIUM BROMIDE 10 MG/ML 5 ML VIAL IV ONE (06:30)
[2017-07-01] MEDS ORDERED: NEOSTIGMINE METHYLSULFATE 1 MG/ML 10ML VIAL ONE (06:30)
[2017-07-01] MEDS ORDERED: ACETAMINOPHEN 1000 MG/100 ML IV IV ONE (06:36)
[2017-07-01] MEDS ORDERED: BACITRACIN 50000 UNIT VIAL ONE (06:51)
[2017-07-01] MEDS ORDERED: SODIUM CHLORIDE 0.9% PF 50 ML VIAL ONE (06:51)
[2017-07-01] MEDS ORDERED: INSDGI SC (06:54)
--- NOTE | 2017-07-01 07:32 | History & Physical Bridge Note ---
H&P Re-Evaluation Bridge Note: I have examined the patient, reviewed the History & Physical and in the interval since the performance of the History & Physical I have noted the following changes of clinical significance: No changes noted
--- NOTE | 2017-07-01 07:33 | History and Physical ---
History & Physical Date Jul 01, 2017. Chief Complaint Neck and arm pain History of Present Illness The patient is a 62 year old female with complaints of neck and arm pain Past Medical/Surgical History Medical Problems: (1) Yiwip-3-lkipruviwsq deficiency (2) COPD (chronic obstructive pulmonary disease) (3) Depression (4) Diabetes type 2, controlled (5) GERD (gastroesophageal reflux disease) (6) H/O lymphoma (7) H/o PE (8) Pneumonia (9) Respiratory failure (10) Respiratory failure, acute Surgical Problems: (1) History of back surgery (2) History of bronchoscopy (3) S/P SORAIDA (total abdominal hysterectomy) Additional History Hepatic Disease: No Endocrine Disorder: No Kidney Disease: No Hypertension: No Heart Disease: No Bleeding Tendencies: No Infectious Diseases: No Allergies Coded Allergies: Sulfamethoxazole w/Trimethoprim (Verified Allergy, Unknown, RASH, 07/01/17) Home Medications Scheduled Alpha1-Proteinase Inhibitor (H (Prolastin-C), Unknown Dose UNKNOWN DIRECTED Aspirin (Aspirin Ec), 81 MG PO DAILY Budesonide (Pulmicort Respules 0.5MG/2ML), 2 ML INH DAILY Budesonide (Nasal) (Rhinocort Allergy), 2 SPRAYS NA DAILY Calcium/Vitamin D (Os-Oliverio 500 Plus D), 1 TAB PO QAM Cholecalciferol (Vitamin D3), 1 TAB PO DAILY Citalopram Hydrobromide (Celexa), 40 MG PO DAILY Cyanocobalamin (B-12), 1,000 MCG PO QAM Fluticasone Furoate-Vilanterol (Breo Ellipta), 1 PUFF INH DAILY Gabapentin (Gabapentin), 100 MG PO TID Home O2 Therapy (Oxygen), 3-4 LITER NA CONTINOUS Insulin Glargine (Lantus), 5 SC TIDM Metformin HCl (Metformin HCl), 500 MG PO BID Morphine Sulfate (Morphine Sulfate Er), 30 MG PO BIDprn Pantoprazole (Pantoprazole Sodium), 40 MG PO DAILY Potassium Chloride (Micro-K Ext Rel), 20 MEQ PO QAM Ranitidine Hcl (Zantac), 300 MG PO BID Roflumilast (Daliresp), 500 MCG PO QAM Scheduled PRN Albuterol Hfa (Ventolin Hfa), 2 PUFFS INH Q4 PRN for SOB/Wheezing Ibuprofen (Motrin), 600 MG PO Q6H PRN for Pain Insulin Aspart (Novolog), UNITS SQ HS PRN for PRN Polyethylene Glycol 3350 (Miralax), 17 GM PO DAILY PRN for Consult Physical Examination Skin: warm/dry, no rash Eyes: normal inspection, EOMI, sclerae normal ENT: normal ENT inspection, pharynx normal Head: normocephalic, atraumatic Neck: supple, no adenopathy, trachea midline Respiratory/Chest: lungs clear, normal breath sounds, no respiratory distress Cardiovascular: regular rate, rhythm, no edema, no murmur Abdomen / GI: normal bowel sounds, non tender Back: normal inspection Extremities: normal inspection, normal range of motion Neurologic/Psych: no motor/sensory deficits, alert, normal reflexes, oriented x 3 Diagnosis Cervical spinal stenosis Plan of Treatment Anterior cervical discectomy and fusion C6-7 possible C7-T1
[2017-07-01] MEDS ORDERED: CEFAZOLIN SOD 1 GM VIAL ONE (08:02)
[2017-07-01] MEDS ORDERED: KETAMINE HCL INJ 50 MG/ML 10 ML VIAL ONE (08:05)
[2017-07-01] MEDS ORDERED: PROMETHAZINE HCL INJ 6.25 MG in SODIUM CHLORIDE 0.9% 50ML 50 ML IV PRN (08:45)
[2017-07-01] MEDS ORDERED: FENTANYL CITRATE INJ 50 MCG/1 ML 2 ML VIAL IV PRN (08:45)
[2017-07-01] MEDS ORDERED: EpHEDrine SULFATE INJ 50 MG/ML AMP IV PRN (08:45)
[2017-07-01] MEDS ORDERED: ATROPINE SULFATE 0.1 MG/ML 5ML SYR IV PRN (08:45)
[2017-07-01] MEDS ORDERED: ONDANSETRON INJ 2 MG/ML 2 ML VIAL IV PRN ×2 (08:45→09:15)
[2017-07-01] MEDS ORDERED: HYDROmorphone INJ 1 MG/ML SYR IV PRN (08:45)
[2017-07-01] MEDS ORDERED: FLOSEAL HEMOSTATIC MATRIX 5ML TOP ONE (08:58)
--- NOTE | 2017-07-01 09:12 | [facility] Operative Report ---
Operative Report Operative Date Jul 01, 2017. Pre-Operative Diagnosis Cervical spine stenosis Post-Operative Diagnosis Same as preop Procedure(s) Performed 1. Anterior cervical discectomy and fusion bilateral foraminotomy C6-7. #2 anterior cervical arthrodesis C6-7. #3 placement of cortical allograft 8 mm in height filled with DBM C6-7. #4 application of locking plate and screws across C6-7. Surgeon Dr. Okeefe Corrosion Engineer Surgeon(s) Edward Ann PA-C Estimated Blood Loss 20 cc Findings Severe spinal stenosis Specimens none, as per surgeon Anesthesia Type General Description of Procedure The patient t was met with preoperatively case discussed all questions addressed. After informed consent obtained patient was taken to the operative suite underwent intubation and placed in a supine position on the Manav table with head Zuniga header up. With the assistance of fluoroscopy identified the C6-7 disc space. A longitudinal incision was placed along the right anterior aspect of the cervical spine overlying this region. Sharp dissection with the assistance of bipolar trochars performed on September exposing the anterior cervical spine at C6-7. Self retaining retractors placed. I then performed a complete discectomy of C6-7 out to the uncovertebral joints bilaterally. Hamilton distraction pins were utilized to assist us in her visualization. I did remove all posterior annular fibers longitudinal ligament and bilateral foraminotomies performed. The endplates were then burred to subcortical bleeding bone. An 8 mm cortical allograft. DBM was then tapped in position. Distraction apparatus was removed. He felt complete and screws applied with the assistance of fluoroscopy. Incision was then copiously irrigated and explored to ensure there was no damage to surrounding structures or remaining bleeding. A 10 round IGNACIO drain inserted. Incision was then closed with 2-0 Vicryl in the fascia and 4-0 Monocryl for fashion closure. Steri-Strips sterile dressing was placed. Patient weakened taken to PACU in stable condition. Please note Nickolas Ann was present throughout the entire procedure involved in patient positioning complex portions of the surgery and fashion closure. I attest to the content of the Intraoperative Record and any orders documented therein. Any exceptions are noted below.
[2017-07-01] MEDS ORDERED: DO NOT ADMINISTER FLU VACCINE PRN (09:15)
[2017-07-01] MEDS ORDERED: SCOPOLAMINE 1.5 MG TDSY TD SCH (09:15)
[2017-07-01] MEDS ORDERED: DO NOT ADMINISTER PNEUMOCOCCAL VACCINE PRN (09:15)
[2017-07-01] MEDS ORDERED: RACEPINEPHRINE 2.25% NEBU SOLN 0.5 ML VIAL INH PRN (09:15)
[2017-07-01] MEDS ORDERED: MAGNESIUM HYDROXIDE SUSP 30 ML UDC PO PRN (09:15)
[2017-07-01] MEDS ORDERED: ACETAMINOPHEN IV 100 ML IV PRN (09:15)
[2017-07-01] MEDS ORDERED: LORAZEPAM INJ 0.5 MG in SYRINGE 0.75 ML IV PRN (09:15)
[2017-07-01] MEDS ORDERED: DEXAMETHASONE INJ 8 MG in SYRINGE 0 ML IV PRN (09:15)
[2017-07-01] MEDS ORDERED: NALOXONE HCL 0.4 MG/1 ML VIAL/CARP IV PRN (09:15)
[2017-07-01] MEDS ORDERED: CEFAZOLIN IV 1,000 MG in DEXTROSE 5% 50ML 50 ML IV SCH (09:15)
[2017-07-01] MEDS ORDERED: LORAZEPAM 0.5 MG TAB PO PRN (09:15)
[2017-07-01] MEDS ORDERED: HYDROmorphone INJ 0.5 MG/0.5 ML SYR IV PRN (09:15)
[2017-07-01] MEDS ORDERED: DiphenhydrAMINE HCL 50 MG/ML VIAL IV PRN (09:15)
[2017-07-01] MEDS ORDERED: ALBUTEROL HFA 8 GM INHALER INH PRN (09:15)
--- NOTE | 2017-07-01 09:29 | DIAGNOSTIC IMAGING REPORT ---
CERVICAL 2 OR 3 VIEWS CLINICAL HISTORY: ACDF C6-7/POSSIBLE C7-T1 TECHNIQUE: Image intensifier COMPARISON STUDY: FINDINGS: Findings consistent with an anterior cervical fusion with screw fixation at C3-C4 and C7-T1. Corpectomy between the 2 sites. IMPRESSION: Findings consistent anterior cervical fusion and corpectomy from C3 through T1. The above report was generated using voice recognition software. It may contain grammatical, syntax or spelling errors. Electronically signed by: Tao Gomes M.D. 07/01/2017 9:27 AM Dictated Date/Time: 07/01/2017 9:26 AM
[2017-07-01] MEDS ORDERED: IV FLUIDS COMPLETED PRN (10:30)
[2017-07-01] MEDS ORDERED: ALBUT/IPRATROP 3MG/0.5MG NEB 3 ML VIAL INH ONE (10:30)
--- NOTE | 2017-07-01 11:00 | Anesthesiology Progress Note ---
Anesthesia Post Op Note Date & Time Jul 01, 2017 at 11:00 Vital Signs Pain Intensity: 5.0 Vital Signs Past 12 Hours Date Time Temp Pulse Resp B/P (MAP) Pulse Ox O2 Delivery O2 Flow Rate FiO2 07/01/17 10:50 76 18 153/60 92 Nasal Cannula 4 07/01/17 10:40 36.4 74 19 155/64 92 Nasal Cannula 4 07/01/17 10:30 71 15 141/63 92 Nasal Cannula 4 07/01/17 10:20 72 16 154/79 93 BiPAP 07/01/17 10:10 76 16 150/63 94 BiPAP 07/01/17 10:00 75 16 159/63 93 BiPAP 07/01/17 09:50 77 15 162/59 94 BiPAP 07/01/17 09:40 77 16 176/89 94 BiPAP 07/01/17 09:30 87 18 206/81 100 BiPAP 07/01/17 09:29 89 98 40 07/01/17 09:28 89 20 98 BiPAP/CPAP 40 07/01/17 09:24 36.2 88 18 208/92 96 Oxymask 10 07/01/17 06:40 36.7 66 18 160/72 97 Nasal Cannula 4 Notes Mental Status: alert / awake / arousable, participated in evaluation Pt Amnestic to Procedure: Yes Nausea / Vomiting: adequately controlled Pain: adequately controlled Airway Patency, RR, SpO2: stable & adequate BP & HR: stable & adequate Hydration State: stable & adequate Anesthetic Complications: no major complications apparent Given her severe O2 dependent COPD, the patient was weaned from the ventilator to BiPAP during the immediate post operative period as a prophylactic measure to prevent CO2 retention and reintubation. She tolerated this well and was able to easily wean to her baseline 4L of O2 by nasal cannula prior to pacu disposition. She will remain on continuous pulse oximetry on the floor tonight.
[2017-07-01] MEDS: SODIUM CHLORIDE 0.9% 1000ML 1,000 ML IV SCH ×2 (12:13→23:46)
[2017-07-01] MEDS ORDERED: RXC5 PO (12:20)
--- NOTE | 2017-07-01 12:21 | Discharge Instructions ---
Discharge Instructions Date of Service Jul 01, 2017. Admission Reason for Admission: Cervical Spinal Stenosis Discharge Discharge Diagnosis / Problem: cervical stenosis Discharge Goals Goal(s): Improve function Activity Recommendations Activity Limitations: per Instructions/Follow-up section . Instructions / Follow-Up Instructions / Follow-Up ACTIVITY RECOMMENDATIONS: SELF CARE INSTRUCTIONS AFTER CERVICAL FUSIONS 1. No smoking. Smoking drastically decreases the chance of a solid fusion. 2. No bending, lifting more than 5 pounds, or twisting (roll like a log when turning in bed). 3. You may shower 3 days after surgery. Thoroughly dry wound. Do not soak in the tub. 4. Cervical collar: Must be worn at all times including sleeping. You may remove the brace only to bath, eat and if you are sitting in a recliner. 5. Please walk as much as you can for exercise. Gradually increase the distance that you walk as your endurance increases. SPECIAL CARE INSTRUCTIONS: VERY IMPORTANT TO READ AND REVIEW A. Do not take any anti-inflammatory medications (i.e. Indocin, Advil, Aspirin, Naprosyn, Aleve, Motrin, etc.) as these may inhibit the chance of a solid fusion. Tylenol is okay to take. B. Your surgical incision has been closed with a cosmetic suture under the skin that will dissolve in about 6 weeks. In 14 days, you can use a pair of clean scissors and cut the suture that is left outside of the skin at the ends of your incision. C. Complications are uncommon, but please contact us if you have any signs or symptoms of: 1. wound infection (fever higher than 102.5 degrees F, redness, separation of wound, drainage, or increasing pain from the incision) 2. blood clots in legs (pain, swelling, redness and warmth in legs) 3. urinary tract infection (fever higher than 102.5 degrees, burning upon urination or increased frequency of urination) 4. nerve problems (inability to walk on your toes or heels, numbness, loss of bowel or bladder control) 5. any other symptoms that concern you. D. Please call the office at if you have any concerns or questions about your operation or recovery. MANAGING PAIN AFTER SPINAL SURGERY 1. Narcotic medication is intended for short-term use and will be provided for surgical pain. Surgical pain usually lasts for a period of 4-6 weeks. Narcotic medication includes Percocet, Vicodin, Darvocet, Tylenol #3 or Lortab. 2. Longer-term pain is more appropriately treated with non-narcotic medication such as Tylenol ES. 3. Muscle spasm is not appropriately treated with narcotics. Muscle relaxers such as Soma, Flexeril or Skelaxin can be used along with Tylenol ES. 4. Remember that we all live with some "aches and pains". This is not unusual or uncommon after an injury or as we get older. 5. We will provide appropriate medication within the normal guidelines of their prescribed use. We will also be very cautious and aware of potential abuse and extended duration of patients' medication needs. 6. Please allow 2-3 days to process refills. Prescriptions will not be mailed but must be picked up at the office. FOLLOW UP VISIT: Keep your scheduled follow-up appointment. Any questions, please call the office at . Current Hospital Diet Patient's current hospital diet: Clear Liquid Diet, Diabetes Type 2 Diet Discharge Diet Recommended Diet: Regular Diet Procedures Procedures Performed: 1. Anterior cervical discectomy and fusion bilateral foraminotomy C6-7. #2 anterior cervical arthrodesis C6-7. #3 placement of cortical allograft 8 mm in height filled with DBM C6-7. #4 application of locking plate and screws across C6-7. Pending Studies Studies pending at discharge: no Medical Emergencies . Who to Call and When: Medical Emergencies: If at any time you feel your situation is an emergency, please call 911 immediately. . Non-Emergent Contact Non-Emergency issues call your: Primary Care Provider . "Provider Documentation" section prepared by Demetrius Okeefe. . VTE Core Measure Inpt VTE Proph given/why not?: Hortensia Du, SCD's
[2017-07-01] MEDS: GABAPENTIN 100 MG CAP PO SCH ×2 (13:09→22:15)
[2017-07-01] MEDS: OXYCODONE HCL IR 5 MG TAB (IMMEDIATE RELEASE) PO PRN ×3 (13:39→23:50)
[2017-07-01] MEDS ORDERED: DEXTROSE 50% 50 ML SYR IV PRN (15:15)
[2017-07-01] MEDS ORDERED: GLUCAGON FOR INJ 1 MG VIAL SQ PRN (15:15)
[2017-07-01] MEDS ORDERED: GLUCOSE 10 TABS/TUBE PO PRN (15:15)
[2017-07-01] MEDS ORDERED: GLUCOSE 40% GEL 15 GM TUBE PO PRN (15:15)
[2017-07-01] MEDS: CHECK SCOPOLAMINE PATCH PLACEMENT SCH ×2 (15:56→23:46)
[2017-07-01] MEDS: CEFAZOLIN IV 1,000 MG in SYRINGE 0 ML IV SCH ×2 (15:56→23:45)
[2017-07-01] MEDS ORDERED: INSU100I23 SQ (16:43)
--- NOTE | 2017-07-01 17:06 | Medical Consult ---
Consultation Date of Consultation: Jul 01, 2017. Attending Physician: Demetrius Okeefe D.O. Reason for Consultation: post-op medical management History of Present Illness This is a 62yo F with a PMH of Alpha-1 antitrypsin deficiency, COPD (on 3-4L NC at home), DM II, GERD and cervical disc disease who is POD #0 s/p anterior cervical discectomy and fusion of C6-C7 by Dr. Okeefe. Patient is doing well post-operatively. States that neck pain is a 2/10 currently. Is still experiencing some tingling in L hand but chronic tingling/numbness in L arm has resolved since surgery this AM. Denies any pain, fever, chills, lightheadedness, headache, visual changes, sore throat, CP, SOB, abdominal pain , nausea, vomiting, dysuria or LE swelling. PCP is Dr. Esposito. Has DM II that is well-controlled on metformin and insulin. Most recent hgb a1c was 5.9 in Jan 2017. Past Medical/Surgical History Medical Problems: (1) Pakaf-[id number] deficiency Status: Chronic (2) Chronic hypoxemic respiratory failure Permanent Comment: On 3-4L NC O2 at home Status: Chronic (3) COPD (chronic obstructive pulmonary disease) Permanent Comment: Status: Chronic (4) Depression Status: Chronic (5) Diabetes type 2, controlled Status: Chronic (6) GERD (gastroesophageal reflux disease) Status: Chronic (7) H/O lymphoma Status: Chronic (8) H/o PE Status: Chronic Surgical Problems: (1) History of back surgery Status: Chronic (2) History of bronchoscopy Status: Chronic (3) S/P SORAIDA (total abdominal hysterectomy) Status: Chronic Family History Cancer Diabetes mellitus FATHER Lung disease FATHER BROTHER Social History Smoking Status: Former Smoker Drug Use: none Marital Status: Housing Status: lives with family Occupation Status: disabled Allergies Coded Allergies: Sulfamethoxazole w/Trimethoprim (Verified Allergy, Unknown, RASH, 07/01/17) Home Medications Reported Home Medications Medications Dose Route/Sig Max Daily Dose Days Date Category Dose Instructions Basaglar Kwikpen (Insulin Glargine) 100 Unit/Ml Inj 20 Units SQ HS 07/01/17 Reported Oxycodone HCl 5 Mg Tab 5-10 Mg PO Q4H PRN 30 07/01/17 Rx Pulmicort Respules 0.5MG/2ML (Budesonide) 0.5 Mg/2 Ml Nebu 2 Ml INH DAILY 04/29/17 Reported Prolastin-C (Alpha1-Proteinase Inhibitor (H) 1,000 Mg Inj Unknown Dose UNKNOWN DIRECTED 04/29/17 Reported Aspirin Ec (Aspirin) 81 Mg Tab 81 Mg PO DAILY 04/29/17 Reported Rhinocort Allergy (Budesonide (Nasal)) 32 Mcg/Act [place] 2 Sprays NA DAILY 04/29/17 Reported Motrin (Ibuprofen) 600 Mg Tab 600 Mg PO Q6H PRN 04/29/17 Reported TAKE WITH FOOD Gabapentin 100 Mg Cap 100 Mg PO TID 04/29/17 Reported Ventolin Hfa (Albuterol) 200 Puffs/62603 Mcg Aers 2 Puffs INH Q4 PRN 03/06/17 Reported Vitamin D3 (Cholecalciferol) 1,000 Unit Tab 1 Tab PO DAILY 90 03/06/17 Reported Micro-K Ext Rel (Potassium Chloride) 10 Meq Capcr 20 Meq PO QAM 03/06/17 Reported Metformin HCl 500 Mg Tab 500 Mg PO BID 03/06/17 Reported Morphine Sulfate Er (Morphine Sulfate) 30 Mg Tab 30 Mg PO BIDPRN 03/06/17 Reported Breo Ellipta (Fluticasone Furoate-Vilanterol) 1 Inh Inh 1 Puff INH DAILY 03/15/16 Reported Pantoprazole Sodium (Pantoprazole) 40 Mg Tab 40 Mg PO DAILY 03/15/16 Reported Celexa (Citalopram Hydrobromide) 40 Mg Tab 40 Mg PO DAILY 03/15/16 Reported Novolog (Insulin Aspart) 100 Units/Ml Inj Units SQ HS PRN 03/15/16 Reported per sliding scale B-12 (Cyanocobalamin) 1,000 Mcg Tab 1,000 Mcg PO QAM 03/15/16 Reported Daliresp (Roflumilast) 500 Mcg Tab 500 Mcg PO QAM 10/14/15 Reported Miralax (Polyethylene Glycol 3350) 1 Pow Pow 17 Gm PO DAILY PRN 04/01/15 Reported Zantac (Ranitidine HCl) 300 Mg Tab 300 Mg PO BID 06/26/14 Reported Oxygen Gas 3-4 Liter NA CONTINOUS 10/04/11 Reported Os-Oliverio 500 Plus D (Calcium/Vitamin D) Tab 1 Tab PO QAM 10/28/10 Reported Current Inpatient Medications Current Inpatient Medications Medications (Trade) Dose Ordered Sig/Raam Route Start Time Stop Time Status Last Admin Dose Admin Racepinephrine (Raccemic Epinephrine 2.25% 0.5ML Neb) 0.5 ml ONE PRN INH 07/01/17 09:15 07/31/17 09:14 Acetaminophen 100 ml @ 400 mls/hr Q8H PRN IV 07/01/17 09:15 07/31/17 09:14 Hydromorphone HCl (Dilaudid Inj) 0.5 mg Q3H PRN IV 07/01/17 09:15 07/15/17 09:14 07/01/17 16:37 0.5 MG Magnesium Hydroxide (Milk Of Magnesia Susp) 30 ml DAILY PRN PO 07/01/17 09:15 07/31/17 09:14 Docusate Sodium (coLACE CAP) 100 mg BID PO 07/01/17 21:00 07/31/17 20:59 Ondansetron HCl (Zofran Inj) 4 mg Q6 PRN IV 07/01/17 09:15 07/31/17 09:14 Scopolamine (Transderm-Scop Patch) 1.5 mg Q72H TD 07/01/17 09:15 07/31/17 09:14 07/01/17 13:09 1.5 MG Lorazepam (Ativan Tab) 0.5 mg Q8H PRN PO 07/01/17 09:15 07/31/17 09:14 Lorazepam 0.5 mg/ Syringe 1 ml @ 1 mls/min Q8H PRN IV 07/01/17 09:15 07/31/17 09:14 Diphenhydramine HCl (Benadryl Inj) 25 mg Q6H PRN IV 07/01/17 09:15 07/31/17 09:14 Pneumococcal Polysaccharide Vaccine 1 ea PRN PRN N/A 07/01/17 09:15 07/31/17 09:14 Influenza Virus Vacc Triv Types A&B 1 ea PRN PRN N/A 07/01/17 09:15 07/31/17 09:14 Sodium Chloride 1,000 ml @ 80 mls/hr [id number] IV 07/01/17 13:00 07/02/17 12:59 07/01/17 12:13 80 MLS/HR Oxycodone HCl (Roxicodone Immediate Rel Tab) 5mg for pain scale 4-6 1... Q4H PRN PO 07/01/17 09:15 07/15/17 09:14 07/01/17 13:39 10 MG Polyethylene (Miralax Powder Packet) 17 gm DAILY PO 07/03/17 09:00 08/02/17 08:59 Bisacodyl (Dulcolax Tab) 5 mg DAILY PRN PO 07/03/17 06:00 08/02/17 05:59 Bisacodyl (Dulcolax Supp) 10 mg DAILY PRN UT 07/03/17 06:00 08/02/17 05:59 Dexamethasone Sodium Phosphate 8 mg/Syringe 2 ml @ 1 mls/min ONE PRN IV 07/01/17 09:15 07/31/17 09:14 Naloxone HCl (Narcan Inj) 0.1 mg Q5M PRN IV 07/01/17 09:15 07/31/17 09:14 Miscellaneous (Remove Transderm-Scop Patch) 1 ea Q72H N/A 07/04/17 09:15 08/03/17 09:14 Miscellaneous Information (Check Scopolamine Patch Placement) 1 ea QS N/A 07/01/17 16:00 07/31/17 15:59 07/01/17 15:56 1 EA Albuterol (Ventolin Hfa Inhaler) 2 puffs Q4 PRN INH 07/01/17 09:15 07/31/17 09:14 Aspirin (Ecotrin Tab) 81 mg DAILY PO 07/02/17 09:00 08/01/17 08:59 Budesonide (Rhinocort Aq Nasal [place]) 2 sprays DAILY NA 07/02/17 09:00 08/01/17 08:59 Budesonide (Pulmicort Respules 0.5MG/ 2ML Neb Soln) 1 mg DAILY INH 07/02/17 09:00 08/01/17 08:59 Citalopram Hydrobromide (celeXA TAB) 40 mg DAILY PO 07/02/17 09:00 08/01/17 08:59 Gabapentin (Neurontin Cap) 100 mg TID PO 07/01/17 14:00 07/31/17 13:59 07/01/17 13:09 100 MG Pantoprazole Sodium (Protonix Tab) 40 mg DAILY PO 07/02/17 09:00 08/01/17 08:59 Potassium Chloride (Klor-Con Tab) 20 meq QAM PO 07/02/17 09:00 08/01/17 08:59 Ranitidine HCl (zANTac TAB) 300 mg BID PO 07/01/17 21:00 07/31/17 20:59 Roflumilast (Daliresp Tab) 500 mcg QAM PO 07/02/17 09:00 08/01/17 08:59 Miscellaneous (Iv Fluids Completed) 1 ea PRN PRN N/A 07/01/17 10:30 07/01/18 10:29 Hydromorphone HCl (Dilaudid Inj) 1 mg Q3H PRN IV 07/01/17 11:15 07/15/17 11:14 Cefazolin Sodium 1000 mg/Syringe 7.5 ml @ 2.5 mls/min Q8H IV 07/01/17 16:00 07/02/17 08:02 07/01/17 15:56 2.5 MLS/MIN Insulin Glargine (Lantus Solostar Pen) IF PATIENT NPO, C... QPM SC 07/01/17 21:00 07/31/17 20:59 Insulin Aspart (novoLOG ASPART) SLIDING SCALE If C... ACHS SC 07/01/17 17:15 07/31/17 17:14 Glucose (Glucose 40% Gel) 15-30 GRAMS 15 GRAMS... UD PRN PO 07/01/17 15:15 07/31/17 15:14 Glucose (Glucose Chew Tab) 4-8 Tablets 4 Tabl... UD PRN PO 07/01/17 15:15 07/31/17 15:14 Dextrose (Dextrose 50% 50ML Syringe) 25-50ML OF 50% DW IV FOR... UD PRN IV 07/01/17 15:15 07/31/17 15:14 Glucagon (Glucagon Inj) 1 mg UD PRN SQ 07/01/17 15:15 07/31/17 15:14 Review of Systems Constitutional: No fever, No chills, No sweats, No weakness Eyes: No worsening of vision, No eye pain ENT: No hearing loss, No nasal symptoms, No sore throat Respiratory: No cough, No sputum, No wheezing, No shortness of breath, No dyspnea on exertion, No dyspnea at rest Cardiovascular: No chest pain, No orthopnea, No edema, No palpitations Abdomen: No pain, No nausea, No vomiting, No diarrhea, No constipation Musculoskeletal: No joint pain, No muscle pain, No swelling Genitourinary - Female: No dysuria, No urinary frequency Neurologic: + numbness/tingling (L hand ), No memory loss, No paralysis, No weakness, No vertigo Integumentary: No rash, No itch, No new/changing skin lesions, No color change Physical Exam Date Time Temp Pulse Resp B/P (MAP) Pulse Ox O2 Delivery O2 Flow Rate FiO2 07/01/17 16:25 83 16 93 Nasal Cannula 4.0 07/01/17 16:20 36.8 85 16 126/66 93 Nasal Cannula 4.0 16 07/01/17 14:20 36.9 83 16 143/69 (93) 93 07/01/17 14:20 36.9 83 16 143/69 93 Nasal Cannula 4.0 40 70 Humidified Oxygen 07/01/17 13:20 36.8 80 16 125/63 95 Nasal Cannula 4.0 40 70 Humidified Oxygen 07/01/17 13:20 36.8 80 16 125/63 (83) 95 18 12:23 36.8 70 18 127/66 (86) 94 Nasal Cannula 4.0 Humidified Oxygen 07/01/17 12:20 36.8 70 18 127/66 94 Nasal Cannula 4.0 40 07/01/17 11:55 69 16 94 Nasal Cannula 4.0 07/01/17 11:50 36.8 73 18 136/69 (91) 94 18 11:50 36.8 73 16 136/69 94 Nasal Cannula 4.0 40 07/01/17 11:49 37.1 80 16 133/73 92 Nasal Cannula 4.0 40 07/01/17 11:20 37.1 80 16 133/73 (93) 92 Nasal Cannula 4.0 Humidified Oxygen 07/01/17 11:20 92 Nasal Cannula 4.0 Humidified Oxygen 07/01/17 11:20 92 Nasal Cannula 4.0 Humidified Oxygen 07/01/17 11:10 79 17 143/57 92 Nasal Cannula 4 07/01/17 11:00 78 24 146/60 93 Nasal Cannula 4 07/01/17 10:50 76 18 153/60 92 Nasal Cannula 4 07/01/17 10:40 36.4 74 19 155/64 92 Nasal Cannula 4 07/01/17 10:30 71 15 141/63 92 Nasal Cannula 4 07/01/17 10:20 72 16 154/79 93 BiPAP 07/01/17 10:10 76 16 150/63 94 BiPAP 07/01/17 10:00 75 16 159/63 93 BiPAP 07/01/17 09:50 77 15 162/59 94 BiPAP 07/01/17 09:40 77 16 176/89 94 BiPAP 07/01/17 09:30 87 18 206/81 100 BiPAP 07/01/17 09:29 89 98 40 07/01/17 09:28 89 20 98 BiPAP/CPAP 40 07/01/17 09:24 36.2 88 18 208/92 96 Oxymask 10 07/01/17 06:40 36.7 66 18 160/72 97 Nasal Cannula 4 General Appearance: WD/WN, no apparent distress, + pertinent finding (Sitting upright watching TV ) Head: normocephalic, atraumatic Eyes: normal inspection, PERRL, sclerae normal ENT: normal ENT inspection, hearing grossly normal, pharynx normal Neck: supple, + pertinent finding (C-collar. Dressing clean, dry, intact. Drain visualized. ) Respiratory/Chest: chest non-tender, lungs clear, normal breath sounds, no respiratory distress, no accessory muscle use Cardiovascular: regular rate, rhythm, no murmur, normal peripheral pulses Abdomen/GI: non tender, soft, no organomegaly Back: normal inspection, no CVA tenderness, normal range of motion Extremities/Musculoskelatal: normal inspection, no calf tenderness, no pedal edema, + pertinent finding (Artemio mercado ) Neurologic/Psych: no motor/sensory deficits, alert, normal mood/affect, oriented x 3 Skin: normal color, warm/dry Laboratory Results Last 24 Hours Test 07/01/17 06:46 07/01/17 09:31 07/01/17 11:53 Bedside Glucose 99 mg/dl 114 mg/dl 160 mg/dl Assessment & Plan This is a 62yo F with a PMH of Alpha-1 antitrypsin deficiency, COPD (on 3-4L NC at home), DM II, GERD and cervical disc disease who is POD #0 s/p anterior cervical discectomy and fusion of C6-C7 by Dr. Okeefe. Cervical radiculopathy s/p decompression fusion: -POD #0 s/p anterior cervical discectomy and fusion of C6-C7 -Doing well post-operatively -Per ortho for pain control, wound care, anticoagulation and activities -Monitor H&H, continue incentive spirometry, PT/OT when appropriate DM II: -A1c of 5.9 in Jan 2017. Recheck a1c. -Hold home regimen -Received 4mg Decadron intraoperatively -Basal bolus insulin per protocol while in-patient -BSG check AC HS Alpha-1 antitrypsin deficiency, COPD (on 3-4L NC at home): -O2 saturation of 93% on 4L NC (home dose) -At respiratory baseline -Cont home proair and Breo ellipta inhalers, budesonide neb, Daliresp GERD: -Cont PPI PCP: Cate Dispo: Per ortho Patient seen in collaboration with Dr. Morales. Please see addendum. Thank you for this consultation. We will follow the patient with you during their hospital stay. You can reach a member of the [facility] Hospitalist Team 22/11 via pager @ . ATTENDING ADDENDUM : This is a 61-year-old female with past medical history of alpha-1 antitrypsin deficiency, COPD with chronic hypoxemic respiratory failure on 3-4 L oxygen via nasal cannula at home, type 2 diabetes Underwent cervical spinal surgery/fusion of C6/C7 by Dr. Okeefe today. Patient recovering well. Denies of any chest pain, no shortness of breath, has mild pain discomfort on neck postsurgical site. Physical exam: As per Irving Moses PA-C Assessment and plan: 1. Cervical spinal stenosis. Status post anterior cervical discectomy and fusion of C6-C7 POD #0 Recovering well postop Continue management as per orthopedics 2. Type 2 diabetes: Insulin sliding scale Monitor blood sugar closely as patient received steroids intraoperatively 3. Alpha 1 antitrypsin deficiency/COPD on 3-4 L oxygen at home Respiratory status at baseline Continue supplemental O2 continue home nebulizer treatment and inhalers Full code Lyn Andrew MD
[2017-07-01] MEDS: INSULIN ASPART 100 UNITS/ML 3 ML PEN SC SCH ×2 (18:23→22:22)
[2017-07-01] MEDS ORDERED: INSULIN GLARGINE SOLOSTAR 100 UNITS/ML 3 ML PEN SC SCH (21:00)
[2017-07-01] MEDS: HYDROmorphone INJ 1 MG/ML SYR IV PRN (22:09)
[2017-07-01] MEDS: DOCUSATE SODIUM 100 MG CAP PO SCH (22:14)
[2017-07-01] MEDS: RANITIDINE HCL 150 MG TAB PO SCH (22:15)
[2017-07-02] VITALS (9 sets, daily range): BP systolic 122–153; BP diastolic 52–73; PULSE 57–77; TEMP 36.7–37; O2SAT 91–96
[2017-07-02] MEDS: OXYCODONE HCL IR 5 MG TAB (IMMEDIATE RELEASE) PO PRN ×3 (04:27→12:27)
[2017-07-02] MEDS: HYDROmorphone INJ 1 MG/ML SYR IV PRN (06:28)
[2017-07-02 07:19] LABS: HEMOGLOBIN A1C 6.3 % (4.5-5.6)
[2017-07-02] MEDS: CHECK SCOPOLAMINE PATCH PLACEMENT SCH (07:49)
[2017-07-02] MEDS: CEFAZOLIN IV 1,000 MG in SYRINGE 0 ML IV SCH (07:56)
[2017-07-02] MEDS: DOCUSATE SODIUM 100 MG CAP PO SCH (08:41)
[2017-07-02] MEDS: RANITIDINE HCL 150 MG TAB PO SCH (08:43)
[2017-07-02] MEDS: GABAPENTIN 100 MG CAP PO SCH (08:44)
[2017-07-02] MEDS: INSULIN ASPART 100 UNITS/ML 3 ML PEN SC SCH (08:59)
[2017-07-02] MEDS ORDERED: BUDESONIDE 0.5 MG/2 ML VIAL (PULMICORT) INH SCH (09:00)
[2017-07-02] MEDS ORDERED: BUDESONIDE AQ (RHINOCORT AQ) NASAL SPRAY 32 MCG SCH (09:00)
[2017-07-02] MEDS ORDERED: POTASSIUM CHLORIDE 20 MEQ TABCR PO SCH (09:00)
[2017-07-02] MEDS ORDERED: ROFLUMILAST 500 MCG TAB PO SCH (09:00)
[2017-07-02] MEDS ORDERED: CITALOPRAM 40 MG TAB PO SCH (09:00)
[2017-07-02] MEDS ORDERED: ASPIRIN 81 MG ECTAB PO SCH (09:00)
[2017-07-02] MEDS ORDERED: PANTOprazole SOD 40 MG TAB PO SCH (09:00)
--- NOTE | 2017-07-02 09:00 | Discharge Summary ---
Orthopedic Discharge Summary Admission Date/Reason Jul 01, 2017 at 09:17 Cervical Spinal Stenosis. Discharge Date/Disposition Jul 02, 2017 Home Diagnosis Principal Diagnosis: Cervical spinal stenosis Admission Physical Exam As per Admitting History & Physical. Hospital Course Patient underwent anterior cervical discectomy and fusion tolerated this well was taken to the orthopedic floor postop leak. Postoperative day #1 she was swallowing without difficulty tolerating her diet. No hoarseness. Left arm symptoms markedly improved. IGNACIO drain down to 5 mL. Subsequently she was discharged home. Discharge orders and instructions found on the chart for further review. Discharge Instructions Please refer to the electronic Patient Visit Report (Discharge Instructions) for additional information.
[2017-07-03] MEDS ORDERED: BISACODYL 10 MG SUPP PR PRN (06:00)
[2017-07-03] MEDS ORDERED: BISACODYL 5 MG TABEC PO PRN (06:00)
[2017-07-03] MEDS ORDERED: POLYETHYLENE (MIRALAX) 17 GM PACK PO SCH (09:00)
== END 2017-07-02 12:58 | disposition home or self-care (01) ==
LOC: C.ACU 06:14 → C.3E 09:17 → ENRESERV 10:13
PROVIDERS: ADMIT Orthopaedic Surgery Orthopaedic Surgery of the Spine; ATTEND Orthopaedic Surgery Orthopaedic Surgery of the Spine
DX: M48.02 Spinal stenosis, cervical region (principal); E88.01 Alpha-1-antitrypsin deficiency; F32.9 Major depressive disorder, single episode, unspecified; K21.9 Gastro-esophageal reflux disease without esophagitis; J44.9 Chronic obstructive pulmonary disease, unspecified; E11.9 Type 2 diabetes mellitus without complications; Z79.82 Long term (current) use of aspirin; Z79.4 Long term (current) use of insulin; Z99.81 Dependence on supplemental oxygen; Z98.1 Arthrodesis status; Z87.01 Personal history of pneumonia (recurrent); Z86.711 Personal history of pulmonary embolism; Z85.72 Personal history of non-Hodgkin lymphomas; Z88.2 Allergy status to sulfonamides; Z79.899 Other long term (current) drug therapy; Z87.891 Personal history of nicotine dependence

== ENCOUNTER 2017-11-22 14:06 | Inpatient (IN) | payer OTHER ==
[~2017-11-22] VITALS: Ht 157.5 cm; Wt 78.0 kg
[~2017-11-22 14:06] MED LIST changes: -CEFU1TAB35 OR; -CYCL5TAB PO; -DXY100 PO; -FLUT1AER14 INH; -GUAI1TAB75 PO; -IBUP-1451 PO; -MORP15TA PO; -NEBMAC; -PRED20TA2 PO; -SPRIN INH; -XPNINS1255 INH
[2017-11-22] MEDS ORDERED: ONDANSETRON INJ 2 MG/ML 2 ML VIAL IV PRN (14:45)
[2017-11-22] MEDS ORDERED: ACETAMINOPHEN 325 MG TAB PO PRN (14:45)
[2017-11-22 14:55] VITALS: BP 134/68; PULSE 78; TEMP 37.2; O2SAT 95; Ht 157.5 cm; Wt 78.0 kg
--- NOTE | 2017-11-22 14:58 | DIAGNOSTIC IMAGING REPORT ---
CHEST ONE VIEW PORTABLE CLINICAL HISTORY: Exacerbation of COPD COMPARISON STUDY: 11/22/2017 FINDINGS: The cardiac and mediastinal contours remain stable. There is a left subclavian A-Port catheter. There is no lobar consolidation. There is no failure. There are no pleural effusions. There are few stable scattered interstitial opacities. There is minor basilar atelectasis.[ IMPRESSION: No change from the preceding study. No evidence of failure. No evidence of focal pulmonary consolidation. Electronically signed by: Omid Nichole M.D. 11/22/2017 2:57 PM Dictated Date/Time: 11/22/2017 2:56 PM
[2017-11-22 15:09] LABS: HEMATOCRIT 37.2 % (37-47); HEMOGLOBIN 12.2 g/dL (12.0-16.0); MEAN CELL VOLUME 87.3 fL (80-100); MEAN CORPUSCULAR HEMOGLOBIN 28.6 pg (25-34); MEAN PLATELET VOLUME 9.6 fL (7.4-10.4); PLATELET COUNT 197 K/uL (130-400); RED CELL DISTRIBUTION WIDTH CV 13.5 % (11.5-14.5); WHITE BLOOD COUNT 7.53 K/uL (4.8-10.8)
[2017-11-22 15:13] LABS: MEAN CORPUSCULAR HGB CONC 32.8 g/dl (32-36)
[2017-11-22 15:14] VITALS: BP 129/73; PULSE 81; TEMP 36.6; O2SAT 96
[2017-11-22] MEDS ORDERED: IBUP-1451 PO (15:15)
[2017-11-22] MEDS ORDERED: CYCL5TAB PO (15:15)
[2017-11-22] MEDS ORDERED: SPRIN INH (15:15)
[2017-11-22] MEDS ORDERED: GUAI1TAB75 PO ×2 (15:15)
[2017-11-22] MEDS ORDERED: MORP15TA PO ×2 (15:15)
[2017-11-22 15:19] LABS: PTT PATIENT 24.9 SECONDS (21.0-31.0)
[2017-11-22 15:30] LABS: ALBUMIN 3.6 gm/dl (3.4-5.0); ALKALINE PHOSPHATASE 73 U/L (45-117); ALT/SGPT 25 U/L (12-78); AST/SGOT 35 U/L (15-37); BLOOD UREA NITROGEN 13 mg/dl (7-18); CARBON DIOXIDE 28 mmol/L (21-32); CREATININE 0.84 mg/dl (0.60-1.20); GLUCOSE 88 mg/dl (70-99); POTASSIUM 4.1 mmol/L (3.5-5.1); SODIUM 140 mmol/L (136-145); TOTAL PROTEIN 7.4 gm/dl (6.4-8.2)
--- NOTE | 2017-11-22 15:41 | History and Physical ---
History & Physical Date & Time of Service: Nov 22, 2017 at 15:41 Chief Complaint: Copd Exacerbation Primary Care Physician: August Esposito MD History of Present Illness Source: patient, clinic records, hospital records This is a 62-year-old female with a PMH of severe COPD, alpha-1 antitrypsin deficiency, chronic hypoxemic respiratory failure (on 4 L at home), DM 2 and other medical problems listed below who presents from pulmonary clinic with COPD exacerbation. Patient notes increased shortness of breath at rest x 4 days with associated wheezing, subjective fever and chills. Had to increase home O2 to 5L over the past few days. Called Pulm clinic yesterday and was started on 40 mg PO prednisone and Augmentin with an appointment for follow-up today. When evaluated by Dr. Georges today, he felt it necessary to direct admit patient for further care in the hospital. Was given 125 IV Solu-Medrol and a DuoNeb treatment in the office. Patient is currently saturating at 96% on 5L nasal cannula. Still experiencing shortness of breath at rest, wheezing and lightheadedness but denies headache, visual changes, chest pain, palpitations, abdominal pain, nausea, vomiting, bowel or bladder changes or lower extremity swelling. Brio and Spiriva inhalers were discontinued last week by Dr. Georges and patient was started on Trelegy Ellipta inhaler. Receives Prolastin therapy weekly for alpha-1 antitrypsin deficiency. Patient is a DNR, per POLST. Past Medical/Surgical History Medical Problems: (1) Xbaty-3-ozluhweiciy deficiency Status: Chronic (2) Chronic hypoxemic respiratory failure Permanent Comment: On 3-5L NC O2 at home Status: Chronic (3) Chronic pain syndrome Status: Chronic (4) COPD (chronic obstructive pulmonary disease) Permanent Comment: Status: Chronic (5) Depression Status: Chronic (6) Diabetes type 2, controlled Status: Chronic (7) GERD (gastroesophageal reflux disease) Status: Chronic (8) H/O lymphoma Status: Chronic (9) H/o PE Status: Chronic Surgical Problems: (1) History of back surgery Status: Chronic (2) History of bronchoscopy Status: Chronic (3) S/P SORAIDA (total abdominal hysterectomy) Status: Chronic Family History Cancer Diabetes mellitus FATHER Lung disease FATHER BROTHER Social History Smoking Status: Former Smoker Alcohol Use: none Drug Use: none Marital Status: Housing status: lives with family Occupational Status: disabled Immunizations History of Influenza Vaccine: Yes Influenza Vaccine Date: Jan 24, 2014 History of Tetanus Vaccine?: Yes History of Pneumococcal: Yes Pneumococcal Date: May 16, 2005 History of Hepatitis B Vaccine: Yes Allergies Coded Allergies: Sulfamethoxazole w/Trimethoprim (Verified Allergy, Unknown, RASH, 07/01/17) Home Medications Scheduled Alpha1-Proteinase Inhibitor (H (Prolastin-C), Unknown Dose UNKNOWN DIRECTED Aspirin (Aspirin Ec), 81 MG PO DAILY Budesonide (Pulmicort Respules 0.5MG/2ML), 2 ML INH DAILY Budesonide (Nasal) (Rhinocort Allergy), 2 SPRAYS NA DAILY Calcium/Vitamin D (Os-Oliverio 500 Plus D), 1 TAB PO QAM Cholecalciferol (Vitamin D3), 1 TAB PO DAILY Citalopram Hydrobromide (Celexa), 40 MG PO DAILY Cyanocobalamin (B-12), 1,000 MCG PO QAM Mvyfdmdbdia-Bmokghxmdfeg-Chuxh (Trelegy Ellipta 100-62.5-25 Mcg/INH), 1 INHA INH DAILY Home O2 Therapy (Oxygen), 3-4 LITER NA CONTINOUS Insulin Glargine (Basaglar Kwikpen), 15 UNITS SQ HS Metformin HCl (Metformin HCl), 500 MG PO BID Morphine Sulfate (Morphine Sulfate Er), 30 MG PO BID Pantoprazole (Pantoprazole Sodium), 40 MG PO DAILY Potassium Chloride (Micro-K Ext Rel), 20 MEQ PO QAM Ranitidine Hcl (Zantac), 300 MG PO BID Scheduled PRN Albuterol Hfa (Ventolin Hfa), 2 PUFFS INH Q4 PRN for SOB/Wheezing Guaifenesin La (Guaifenesin Er), 600 MG PO Q12H PRN for Cough Morphine Sulfate Ir (Morphine Sulfate Ir), 15 MG PO Q6H PRN for Pain Polyethylene Glycol 3350 (Miralax), 17 GM PO DAILY PRN for Consult Review of Systems Ten systems reviewed and negative except as noted in the HPI. Physical Exam Vital Signs Date Time Temp Pulse Resp B/P (MAP) Pulse Ox O2 Delivery O2 Flow Rate FiO2 11/22/17 15:14 36.6 81 18 129/73 (91) 96 5.0 100 11/22/17 14:55 37.2 78 24 134/68 95 Nasal Cannula 5.0 General Appearance: WD/WN, + mild distress Head: normocephalic, atraumatic Eyes: normal inspection, sclerae normal ENT: normal ENT inspection, hearing grossly normal, pharynx normal (moist mucous membranes ) Neck: supple, thyroid normal, trachea midline Respiratory/Chest: chest non-tender, no respiratory distress, no accessory muscle use, + decreased breath sounds, + wheezing (Diffuse expiratory wheezing ) , + pertinent finding (Saturating well on 5L NC O2) Cardiovascular: regular rate, rhythm, normal peripheral pulses Abdomen/GI: non tender, soft, no organomegaly Extremities/Musculoskelatal: normal inspection, no calf tenderness, no pedal edema Neurologic/Psych: no motor/sensory deficits, alert, normal mood/affect, oriented x 3 Skin: normal color, warm/dry, no rash Diagnostics Laboratory Results Results Past 24 Hours Test 11/22/17 15:00 Range/Units White Blood Count 7.53 4.8-10.8 K/uL Red Blood Count 4.26 4.2-5.4 M/uL Hemoglobin 12.2 12.0-16.0 g/dL Hematocrit 37.2 37-47 % Mean Corpuscular Volume 87.3 80-100 fL Mean Corpuscular Hemoglobin 28.6 25-34 pg Mean Corpuscular Hemoglobin Concent 32.8 32-36 g/dl RDW Standard Deviation 43.0 36.4-46.3 fL RDW Coefficient of Variation 13.5 11.5-14.5 % Platelet Count 197 130-400 K/uL Mean Platelet Volume 9.6 7.4-10.4 fL Prothrombin Time 10.4 9.0-12.0 SECONDS Prothromb Time International Ratio 1.0 0.9-1.1 Activated Partial Thromboplast Time 24.9 21.0-31.0 SECONDS Partial Thromboplastin Ratio 1.0 Sodium Level 140 136-145 mmol/L Potassium Level 4.1 3.5-5.1 mmol/L Chloride Level 106 98-107 mmol/L Carbon Dioxide Level 28 21-32 mmol/L Anion Gap 7.0 3-11 mmol/L Blood Urea Nitrogen 13 7-18 mg/dl Creatinine 0.84 0.60-1.20 mg/dl Estimated GFR () 85.7 Estimated GFR (Non- 74.0 BUN/Creatinine Ratio 16.0 10-20 Random Glucose 88 70-99 mg/dl Calcium Level 9.0 8.5-10.1 mg/dl Total Bilirubin 0.5 0.2-1 mg/dl Aspartate Amino Transf (AST/SGOT) 35 15-37 U/L Alanine Aminotransferase (ALT/SGPT) 25 12-78 U/L Alkaline Phosphatase 73 45-117 U/L Total Protein 7.4 6.4-8.2 gm/dl Albumin 3.6 3.4-5.0 gm/dl Globulin 3.7 2.5-4.0 gm/dl Albumin/Globulin Ratio 1.0 0.9-2 Diagnostic Radiology CXR: IMPRESSION: No change from the preceding study. No evidence of failure. No evidence of focal pulmonary consolidation. Normal EKG (QTC:476) Impression Assessment and Plan This is a 62-year-old female with a PMH of severe COPD, alpha-1 antitrypsin deficiency, chronic hypoxemic respiratory failure (on 4 L at home), DM 2 and other medical problems listed below who presents from pulmonary clinic with COPD exacerbation. Chronic hypoxemic respiratory failure -Requires 3-5L NC O2 at home -Currently saturating at 96% on 5L NC -Continue supplemental O2 COPD exacerbation Alpha-1 antitrypsin deficiency -Sent from Dr. Georges's office, where she received 125mg IV solumedrol and a duoneb treatment -Discussed with Dr. Perez -40mg IV solumedrol Q12 -Levalbuterol + ipratropium nebs (experiences tremors with duonebs) -No evidence of PNA on CXR -Rocephin and doxycycline -Recently started on Trelegy Ellipta inhaler. Hold for now -Continue Pulmicort, guaifenesin PRN -Did not receive weekly infusion of Prolastin-C -- appreciate recommendation from pulm for when to resume this medication DM II -A1c of 8.7 in October 2017 -Basal/bolus insulin while in-patient -BSG checks AC HS Chronic pain syndrome -H/o spinal surgeries -Cont home morphine ER and IR -Hold if patient becomes lethargic GERD -Cont protonix, ranitidine Mood disorder -Cont Celexa DVT Ppx: SQ heparin Code status: DNR, per POLST PCP: Cate Dispo: Admitted to telemetry. Plan to return home once medically stable. Patient seen in collaboration with Dr. Yu. Please see addendum. Attending Note: Patient is a 62 yr female with PMH of severe COPD, alpha-1 antitrypsin deficiency, chronic hypoxemic respiratory failure on chronic oxygen and other problems presents with history of worsening SOB, wheezing, productive cough, subjective fever, chills, increased requirement of oxygen from her baseline. Patient failed outpatient prednisone and Augmentin therapy and was recently started on Trelegy. She reports feeling tired and more lethargic lately. Physical Exam: Vitals signs as noted above General Appearance:Moderately built and nourished, no apparent distress Head: normocephalic, Atraumatic Eyes: normal inspection, EOMI, PERRL Neck: supple, Trachea midline Respiratory/Chest: Decreased breath sounds, B/L expiratory wheezes Cardiovascular: S1, S2, No murmur Abdomen/GI:Soft, Non tender, Bowel sounds present Extremities/Musculoskelatal:normal inspection, no edema Neurologic/Psych:AAOX3, grossly no focal neurological deficits Skin:normal color,warm Assessment and Plan: Acute COPD Exacerbation Chronic Respiratory failure with hypoxia H/O Alpha-1 antitrypsin deficiency CXR: no signs of consolidation Start on antibiotics as above IV solumedrol, bronchodilators Titrate Oxygen per protocol to keep Sats> 88% Pulm consulted Prolonged QTC: Avoid QTC prolonging meds as able Repeat EKG in AM I personally reviewed the record. Patient is interviewed and examined at bedside. Patient's care is coordinated with Teresa Moses PA-C. Please refer to the documentation above for details of patient's presentation and for discussion of other issues. 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
[2017-11-22] MEDS ORDERED: GLUCAGON FOR INJ 1 MG VIAL SQ PRN (15:45)
[2017-11-22] MEDS ORDERED: GLUCOSE 10 TABS/TUBE PO PRN (15:45)
[2017-11-22] MEDS ORDERED: CARBOHYDRATES FOR HYPOGLYCEMIA PO PRN (15:45)
[2017-11-22] MEDS ORDERED: DEXTROSE 50% 50 ML SYR IV PRN (15:45)
[2017-11-22] MEDS ORDERED: GLUCOSE 40% GEL 15 GM TUBE PO PRN (15:45)
--- NOTE | 2017-11-22 16:36 | PULMONARY CONSULTATION ---
DATE OF CONSULTATION: 11/22/2017 TIME: 3:55 p.m. REPORT OF CONSULTATION: The patient was seen in room 215. She is a 62-year-old female who has a history of alpha-1 antitrypsin deficiency. She is on Prolastin therapy. She gets this weekly. She has had this disorder for 9 or 10 years. The patient previously had smoked approximately 1 pack per day for 30 years, but she quit smoking in 2004. She has had increasing shortness of breath for about 4 days. She feels tighter in the chest. She has a dry cough. This is similar to her usual cough. It is unchanged. She did have a temperature sometime in the last few days of 100 degrees. She has had mild chills. She noticed increased wheezing. She has had no chest pains. The patient's appetite is decreased from normal. She has some chronic back pain, but nothing that is different from before. She has had increased sleepiness this week. Her states that she sleeps sometimes 14 hours a day. Usually, she is a little more sleepy than normal. She states she did have a sleep study done quite a few years ago and it was negative for sleep apnea. The patient saw Dr. Georges in his office today. Yesterday she was started on prednisone. When Dr. Georges examined her today he felt she needed admission. PAST SURGICAL HISTORY: 1. Lumbar spine surgery. 2. Cervical spine surgery x2 with the most recent one being earlier this year. 3. Salivary gland surgery. 4. Total abdominal hysterectomy. 5. Bronchoscopy x6. 6. Removal of the tumor from the left forearm and from the shoulder. PAST MEDICAL HISTORY: 1. Diabetes type 2. 2. Reflux. 3. Depression. 4. Chronic pain syndrome. 5. Pulmonary embolism in 2007. 6. Non-Hodgkin's lymphoma in 2005. 7. M. avium infection in 2011. 8. Aspergillus infection in 2014. SOCIAL HISTORY: Tobacco as noted above. 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 ALLERGIES: SULFA. FAMILY HISTORY: The patient believes that her father had alpha-1 disease as well. One sister , AML. One brother has severe lung disease and he is undergoing a lung transplant on the date of this evaluation. MEDICATIONS AT HOME: 1. Ventolin HFA p.r.n. 2. Prolastin. 3. Aspirin 81 mg daily. 4. Rhinocort 2 sprays daily. 5. Budesonide 0.5 daily via nebulizer. 6. Calcium D. 7. Vitamin D3. 8. Celexa 40 mg daily. 9. B12 daily. 10. Cyclobenzaprine 5 mg b.i.d. p.r.n. 11. Trelegy Ellipta 1 puff daily - started approximately 1 week ago. 12. Gabapentin 100 mg t.i.d. 13. Guaifenesin 600 q. 12 p.r.n. 14. O2 3-4 liters continuous. 15. Ibuprofen p.r.n. 16. NovoLog p.r.n. 17. Glargine insulin at bedtime. 18. Metformin 500 mg b.i.d. 19. Morphine IR 15 mg q. 6 p.r.n. pain. 20. Morphine sulfate ER 30 mg b.i.d. 21. Pantoprazole 40 mg daily. 22. MiraLax p.r.n. 23. Potassium 20 mEq daily. 24. Ranitidine 300 mg b.i.d. REVIEW OF SYSTEMS: Negative except for the above-mentioned complaints. Ten systems reviewed. LABORATORY DATA: Additional history is that she was hospitalized with acute bronchitis 04/29/2017 until 05/05/2017. She also had been hospitalized with pneumonia, 03/19/2017 until 03/23/2017. She also was hospitalized with respiratory failure, 03/06/2017 until 03/12/2017. PHYSICAL EXAMINATION: GENERAL: The patient is a pleasant 62-year-old female who was cooperative, alert and oriented. She was mildly short of breath at rest. VITAL SIGNS: Initial temperature was 37.2. HEENT: Pupils were reactive. Nasal cannula was in place. Mouth exam showed dentures on top. No erythema or exudate was noted. NECK: Palpation of the neck reveals no lymph nodes. She has a scar in the anterior neck from prior surgery. HEART: Cardiac rate is 80 per minute. Rhythm is regular. Blood pressure 129/73. LUNGS: Lung woodard revealed decreased breath sounds. There was mild wheeze on expiration. There was prolongation to the expiratory phase of respiration. She was not utilizing accessory muscles. Oxygen saturation is 96% on 5 liters. ABDOMEN: Soft. Bowel sounds were normal. There was no tenderness to palpation, masses or organomegaly. EXTREMITIES: Showed no cyanosis, clubbing or edema. IMAGING DATA: The patient's chest x-ray is clear. There were mild increased interstitial markings. LABORATORY DATA: White count is 7.53. Hemoglobin 12.2. Platelets 197,000. Coags are normal. Electrolytes show sodium 140, potassium 4.1, chloride 106, bicarbonate 28. BUN is 13 with creatinine 0.84. Blood sugar 104. Calcium was 9. Liver functions were normal. IMPRESSION: 1. Chronic obstructive pulmonary disease with exacerbation. 2. Alpha-1 antitrypsin deficiency. COMMENTS AND RECOMMENDATIONS: I would suggest that the patient is moderately tight. For now, I would start methylprednisolone 40 mg IV q. 12 hours. She has noticed tremors associated with her DuoNebs. Would suggest doing levalbuterol plus ipratropium rather than true DuoNebs. This may decrease the tremors somewhat. The patient reportedly has a slightly abnormal QT interval. Case was discussed with the hospitalist team. They are going to give ceftriaxone and doxycycline. We will follow the patient with you. Thank you for asking me to assist in her care. DA
[2017-11-22] MEDS ORDERED: FLUT1AER14 INH ×2 (16:50)
[2017-11-22] MEDS ORDERED: GUAIFENESIN 600 MG TABCR PO PRN (17:00)
[2017-11-22] MEDS ORDERED: ALBUTEROL HFA 8 GM INHALER INH PRN (17:00)
[2017-11-22] MEDS: DOXYCYCLINE HYCLATE 100 MG CAP PO SCH (17:18)
[2017-11-22] MEDS: CEFTRIAXONE SOD INJ 1 GM in DEXTROSE 5% ADD-VANTAGE 50ML 50 ML IV SCH (17:18)
[2017-11-22] MEDS: METHYLPREDNISOLONE IV 40 MG in SYRINGE 0 ML IV SCH (17:19)
[2017-11-22] MEDS: INSULIN ASPART 100 UNITS/ML 3 ML PEN SC SCH ×2 (17:22→21:19)
[2017-11-22] MEDS: MoRPHine SULFATE IR 15 MG TAB (IMMEDIATE RELEASE) PO PRN (17:25)
[2017-11-22 18:47] VITALS: BP 130/68; PULSE 74; TEMP 36.9; O2SAT 93
[2017-11-22] MEDS: IPRATROPIUM BROMIDE NEB SOLN 0.02% 2.5 ML VIAL INH SCH (19:27)
[2017-11-22] MEDS: LEVALBUTEROL 1.25MG/0.5ML NEB INH SCH (19:27)
[2017-11-22 19:28] VITALS: PULSE 84; O2SAT 94
[2017-11-22] MEDS ORDERED: INSULIN GLARGINE SOLOSTAR 100 UNITS/ML 3 ML PEN SC SCH (21:00)
[2017-11-22] MEDS ORDERED: LEVALBUTEROL/IPRATROPIUM NEB INH SCH (21:00)
[2017-11-22] MEDS: MoRPHine SULFATE CR 15 MG TAB (MS CONTIN) PO SCH (21:16)
[2017-11-22] MEDS: RANITIDINE HCL 150 MG TAB PO SCH (21:16)
[2017-11-22] MEDS: INSULIN GLARGINE SOLOSTAR 100 UNITS/ML 3 ML PEN SC SCH (21:19)
[2017-11-22] MEDS: HEPARIN SOD 5000 UNIT/0.5 ML CARP SQ SCH (21:20)
[2017-11-22] MEDS: POLYETHYLENE (MIRALAX) 17 GM PACK PO PRN (21:37)
[2017-11-22 23:14] VITALS: BP 135/70; PULSE 84; TEMP 36.9; O2SAT 92
[2017-11-23] VITALS (10 sets, daily range): BP systolic 105–154; BP diastolic 58–72; PULSE 78–102; TEMP 36.7–37.1; O2SAT 91–99
[2017-11-23] MEDS: LEVALBUTEROL 1.25MG/0.5ML NEB INH SCH ×4 (01:59→19:20)
[2017-11-23] MEDS: IPRATROPIUM BROMIDE NEB SOLN 0.02% 2.5 ML VIAL INH SCH ×4 (01:59→19:20)
[2017-11-23] MEDS: MoRPHine SULFATE IR 15 MG TAB (IMMEDIATE RELEASE) PO PRN (02:40)
[2017-11-23 04:34] LABS: HEMATOCRIT 34.9 % (37-47); HEMOGLOBIN 11.4 g/dL (12.0-16.0); MEAN CELL VOLUME 86.2 fL (80-100); MEAN CORPUSCULAR HEMOGLOBIN 28.1 pg (25-34); MEAN CORPUSCULAR HGB CONC 32.7 g/dl (32-36); MEAN PLATELET VOLUME 9.5 fL (7.4-10.4); PLATELET COUNT 211 K/uL (130-400); RED CELL DISTRIBUTION WIDTH CV 13.2 % (11.5-14.5); WHITE BLOOD COUNT 9.96 K/uL (4.8-10.8)
[2017-11-23 04:58] LABS: CALCIUM 8.5 mg/dl (8.5-10.1); CREATININE 0.94 mg/dl (0.60-1.20)
[2017-11-23] MEDS: HEPARIN SOD 5000 UNIT/0.5 ML CARP SQ SCH ×3 (05:35→21:05)
[2017-11-23] MEDS: METHYLPREDNISOLONE IV 40 MG in SYRINGE 0 ML IV SCH ×2 (05:37→17:01)
[2017-11-23] MEDS: CALCIUM 600MG + VIT D 400 IU TAB PO SCH (07:42)
[2017-11-23] MEDS: CHOLECALCIFEROL 1000 INTER.UNIT TAB PO SCH (07:42)
[2017-11-23] MEDS: ASPIRIN 81 MG ECTAB PO SCH (07:42)
[2017-11-23] MEDS: CITALOPRAM 40 MG TAB PO SCH (07:43)
[2017-11-23] MEDS: POTASSIUM CHLORIDE 20 MEQ TABCR PO SCH (07:43)
[2017-11-23] MEDS: RANITIDINE HCL 150 MG TAB PO SCH ×2 (07:44→20:49)
[2017-11-23] MEDS: CYANOCOBALAMIN 500 MCG TAB (VIT B-12) PO SCH (07:44)
[2017-11-23] MEDS: DOXYCYCLINE HYCLATE 100 MG CAP PO SCH ×2 (07:44→20:49)
[2017-11-23] MEDS: PANTOprazole SOD 40 MG TAB PO SCH (07:44)
[2017-11-23] MEDS: BUDESONIDE AQ (RHINOCORT AQ) NASAL SPRAY 32 MCG SCH (07:44)
[2017-11-23] MEDS: MoRPHine SULFATE CR 15 MG TAB (MS CONTIN) PO SCH ×2 (07:52→20:49)
[2017-11-23] MEDS: INSULIN ASPART 100 UNITS/ML 3 ML PEN SC SCH ×4 (07:57→21:04)
[2017-11-23] MEDS: INSULIN GLARGINE SOLOSTAR 100 UNITS/ML 3 ML PEN SC SCH ×2 (07:58→21:05)
[2017-11-23] MEDS ORDERED: BUDESONIDE 0.5 MG/2 ML VIAL (PULMICORT) INH SCH (09:00)
--- NOTE | 2017-11-23 12:38 | Progress Note ---
Progress Note Date of Service Nov 23, 2017. Progress Note Subjective: Patient seen and examined this morning. Reported to have wheezing despite recent nebulizer treatment. But patient denies significant worsening breathing since coming to the hospital. She denies chest pain. Denies vomiting Physical Exam General no acute distress Head: normocephalic, Atraumatic Eyes: normal inspection, EOMI Neck: supple, Trachea midline Respiratory/Chest: Lungs: mild wheezes, no crackles Cardiovascular: S1, S2, No murmur Abdomen/GI:Soft, Non tender, Bowel sounds present Extremities/Musculoskelatal:normal inspection, no edema Neurologic/Psych:AAOX3, grossly no focal neurological deficits Skin:normal color,warm Assessment and Plan This is a 62-year-old female with a PMH of severe COPD, alpha-1 antitrypsin deficiency, chronic hypoxemic respiratory failure (on 4 L at home), DM 2 and other medical problems listed below who presents from pulmonary clinic with COPD exacerbation. Chronic hypoxemic respiratory failure -uses home oxygen 24 hours a day at home -Continue supplemental O2 COPD exacerbation Alpha-1 antitrypsin deficiency -Sent from Dr. Georges's office, where she received 125mg IV solumedrol and a duoneb treatment -40mg IV solumedrol Q12 -Levalbuterol + ipratropium nebs (experiences tremors with duonebs) -Rocephin and doxycycline -Continue Pulmicort, guaifenesin PRN -Recently started on Trelegy Ellipta inhaler. Hold for now -Did not receive weekly infusion of Prolastin-C - appreciate recommendation from pulmonary for when to resume this medication Prolonged QTC -monitor on telemetry DM II -A1c of 8.7 in October 2017 -Basal/bolus insulin while in-patient -BSG checks AC HS Chronic pain syndrome -H/o spinal surgeries -Cont home morphine ER and IR GERD -Cont protonix, ranitidine Mood disorder -Cont Celexa DVT Ppx: SQ heparin Code status: DNR, per POLST
[2017-11-23] MEDS ORDERED: CALAMINE/PRAMOXINE LOTION 177 APPLN/177 ML BTL EXT PRN (16:15)
--- NOTE | 2017-11-23 16:52 | PULMONARY PROGRESS NOTE ---
DATE: 11/23/2017 TIME: 04:25 p.m. SUBJECTIVE: The patient is still short of breath going to the bathroom. She feels that at rest she may be slightly more comfortable. She finds it hard to take a deep breath. She is not expectorating any sputum. OBJECTIVE: GENERAL: The patient looked mildly short of breath at rest. VITAL SIGNS: Temperature is 36.9. Her maximum temperature since admission was 37.2. She seems slightly sweaty. Heart rate is 100. Rhythm is regular. Blood pressure 125/58. LUNGS: Lung woodard revealed severely diminished breath sounds. There was prolongation to the expiratory phase of respiration. Saturation was 93% on 3 L. EXTREMITIES: Showed no cyanosis, clubbing or edema. LABORATORY DATA: White count today is 9.96. Hemoglobin is 11.4. Yesterday was 12.2. Platelets are 211,000. Electrolytes show sodium 136, potassium 4, chloride 103, bicarb 26. BUN 17, creatinine 0.94. Maximum blood sugar today is 208. IMPRESSIONS: 1. Chronic obstructive pulmonary disease with exacerbation. 2. Alpha 1 antitrypsin deficiency. COMMENTS AND RECOMMENDATIONS: The patient is about the same. At most, she is slightly improved. Would continue with her current medications. I would keep her on methylprednisolone 40 q. 12 hours for now in light of the fact she is not much better. She is on ceftriaxone and doxycycline. She is on budesonide by nebulizer. I believe that usually is a 0.5 b.i.d. dosage.
[2017-11-23] MEDS: CEFTRIAXONE SOD INJ 1 GM in DEXTROSE 5% ADD-VANTAGE 50ML 50 ML IV SCH (17:01)
[2017-11-23] MEDS ORDERED: MAGNESIUM SULFATE 1GM / D5W 100 ML IV STA (20:44)
[2017-11-23] MEDS: POLYETHYLENE (MIRALAX) 17 GM PACK PO PRN (23:11)
[2017-11-24] VITALS (10 sets, daily range): BP systolic 129–152; BP diastolic 66–79; PULSE 71–87; TEMP 36.5–36.9; O2SAT 93–97
[2017-11-24] MEDS: ZOLPIDEM TARTRATE 5 MG TAB PO PRN (00:33)
[2017-11-24] MEDS: LEVALBUTEROL 1.25MG/0.5ML NEB INH SCH ×4 (01:57→19:05)
[2017-11-24] MEDS: IPRATROPIUM BROMIDE NEB SOLN 0.02% 2.5 ML VIAL INH SCH ×4 (01:57→19:05)
[2017-11-24] MEDS: HEPARIN SOD 5000 UNIT/0.5 ML CARP SQ SCH ×3 (06:15→22:26)
[2017-11-24] MEDS: METHYLPREDNISOLONE IV 40 MG in SYRINGE 0 ML IV SCH (06:15)
[2017-11-24] MEDS: BUDESONIDE 0.5 MG/2 ML VIAL (PULMICORT) INH SCH ×2 (06:57→19:06)
[2017-11-24 08:22] LABS: ALBUMIN 3.5 gm/dl (3.4-5.0); CREATININE 0.86 mg/dl (0.60-1.20); POTASSIUM 4.5 mmol/L (3.5-5.1); TOTAL PROTEIN 6.9 gm/dl (6.4-8.2)
[2017-11-24] MEDS: RANITIDINE HCL 150 MG TAB PO SCH ×2 (08:38→20:28)
[2017-11-24] MEDS: PANTOprazole SOD 40 MG TAB PO SCH (08:38)
[2017-11-24] MEDS: CHOLECALCIFEROL 1000 INTER.UNIT TAB PO SCH (08:38)
[2017-11-24] MEDS: CITALOPRAM 40 MG TAB PO SCH (08:38)
[2017-11-24] MEDS: CYANOCOBALAMIN 500 MCG TAB (VIT B-12) PO SCH (08:39)
[2017-11-24] MEDS: POTASSIUM CHLORIDE 20 MEQ TABCR PO SCH (08:39)
[2017-11-24] MEDS: ASPIRIN 81 MG ECTAB PO SCH (08:39)
[2017-11-24] MEDS: DOXYCYCLINE HYCLATE 100 MG CAP PO SCH ×2 (08:39→20:28)
[2017-11-24] MEDS: CALCIUM 600MG + VIT D 400 IU TAB PO SCH (08:39)
[2017-11-24] MEDS: BUDESONIDE AQ (RHINOCORT AQ) NASAL SPRAY 32 MCG SCH (08:40)
[2017-11-24] MEDS: INSULIN GLARGINE SOLOSTAR 100 UNITS/ML 3 ML PEN SC SCH ×2 (08:45→20:29)
[2017-11-24] MEDS: INSULIN ASPART 100 UNITS/ML 3 ML PEN SC SCH ×4 (08:45→20:30)
[2017-11-24] MEDS: MoRPHine SULFATE CR 15 MG TAB (MS CONTIN) PO SCH ×2 (08:45→20:27)
--- NOTE | 2017-11-24 12:11 | PULMONARY PROGRESS NOTE ---
DATE: 11/24/2017 TIME: 11:00 a.m. SUBJECTIVE: The patient feels a little better. She thinks she is somewhat less short of breath both at rest and with exertion. She slept somewhat better last night, but it took some Ambien to assist her. She is not coughing up any phlegm. At times, it feels a little loose. OBJECTIVE: GENERAL: The patient appears comfortable. VITAL SIGNS: Temperature is 36.9. HEART: Rate is 74 per minute. Rhythm is regular. Blood pressure 141/68. LUNGS: Auscultation of the lung woodard reveals end-expiratory wheeze. Breath sounds are diminished. Respiratory rate was 18. There was no accessory muscle use. Saturation was 96% on 4 liters. EXTREMITIES: Showed no cyanosis, clubbing, or edema. LABORATORY DATA: Chemistry profile done today was normal except for BUN of 23 and blood sugar of 133. Liver functions were normal. Magnesium today was 2.3. IMPRESSIONS: 1. Chronic obstructive pulmonary disease with exacerbation. 2. Alpha 1 antitrypsin deficiency. COMMENTS: The patient seems to be improved today. I would encourage increased ambulation. Perhaps physical therapy would be helpful in ambulating the patient in the hallway. I believe, we can decrease the methylprednisolone dose to 20 mg IV q. 12 hours. Hopefully, she will be ready for discharge in 24-48 hours. Thank you for asking me to assist in her care.
[2017-11-24] MEDS: MoRPHine SULFATE IR 15 MG TAB (IMMEDIATE RELEASE) PO PRN ×2 (14:41→22:27)
--- NOTE | 2017-11-24 15:52 | Progress Note ---
Progress Note Date of Service Nov 24, 2017. Progress Note Subjective: Patient seen and examined. Patient is ambulatory while on oxygen. She denies chest pain. Denies vomiting. She reports her breathing feels close to her baseline Physical Exam General no acute distress Head: normocephalic, Atraumatic Eyes: normal inspection, EOMI Neck: supple, Trachea midline Respiratory/Chest: Lungs: mild wheezes, no crackles Cardiovascular: S1, S2, No murmur Abdomen/GI:Soft, Non tender, Bowel sounds present Extremities/Musculoskelatal:normal inspection, no edema Neurologic/Psych:AAOX3, grossly no focal neurological deficits Skin:normal color,warm Assessment and Plan This is a 62-year-old female with a PMH of severe COPD, alpha-1 antitrypsin deficiency, chronic hypoxemic respiratory failure (on 4 L at home), DM 2 and other medical problems listed below who presents from pulmonary clinic with COPD exacerbation. Chronic hypoxemic respiratory failure -uses home oxygen 24 hours a day at home -Continue supplemental O2 COPD exacerbation Alpha-1 antitrypsin deficiency (has in the past been on weekly infusion of Prolastin-C, can hold as per pulmonary service for now) -Sent from Dr. Georges's office, where she received 125mg IV solumedrol and a duoneb treatment -has been on rocephin and doxycycline ; doxycycline continued -hold Ellipta inhaler, Continue Pulmicort nebulizer and bronchodilators -pulmonary service decrease the methylprednisolone dose to 20 mg IV q. 12 hours Prolonged QTC appears to have resolved -hypomagnesemia resolved after magnesium repletion -can transfer off telemetry DM II -A1c of 8.7 in October 2017 -Basal/bolus insulin while in-patient -BSG checks AC HS Chronic pain syndrome -H/o spinal surgeries -Cont home morphine ER and IR GERD -Cont protonix, ranitidine Mood disorder -Cont Celexa DVT Ppx: SQ heparin Code status: DNR, per POL
[2017-11-24] MEDS: CEFTRIAXONE SOD INJ 1 GM in DEXTROSE 5% ADD-VANTAGE 50ML 50 ML IV SCH (16:53)
[2017-11-24] MEDS: METHYLPREDNISOLONE IV 20 MG in SYRINGE 0 ML IV SCH (16:56)
[2017-11-25 00:12] VITALS: BP 179/80; PULSE 70; TEMP 36.3; O2SAT 96
[2017-11-25] MEDS: ZOLPIDEM TARTRATE 5 MG TAB PO PRN (00:56)
[2017-11-25] MEDS: IPRATROPIUM BROMIDE NEB SOLN 0.02% 2.5 ML VIAL INH SCH ×3 (01:55→14:06)
[2017-11-25] MEDS: LEVALBUTEROL 1.25MG/0.5ML NEB INH SCH ×3 (01:55→14:06)
[2017-11-25] MEDS: METHYLPREDNISOLONE IV 20 MG in SYRINGE 0 ML IV SCH (06:18)
[2017-11-25] MEDS: HEPARIN SOD 5000 UNIT/0.5 ML CARP SQ SCH ×2 (06:25→14:00)
[2017-11-25] MEDS: BUDESONIDE 0.5 MG/2 ML VIAL (PULMICORT) INH SCH (07:06)
[2017-11-25 07:07] VITALS: PULSE 58; O2SAT 97
[2017-11-25 07:20] VITALS: BP 183/80; PULSE 61; TEMP 37; O2SAT 97
[2017-11-25] MEDS: ASPIRIN 81 MG ECTAB PO SCH (07:56)
[2017-11-25] MEDS: POTASSIUM CHLORIDE 20 MEQ TABCR PO SCH (07:56)
[2017-11-25] MEDS: CITALOPRAM 40 MG TAB PO SCH (07:56)
[2017-11-25] MEDS: BUDESONIDE AQ (RHINOCORT AQ) NASAL SPRAY 32 MCG SCH (07:56)
[2017-11-25] MEDS: DOXYCYCLINE HYCLATE 100 MG CAP PO SCH (07:57)
[2017-11-25] MEDS: CHOLECALCIFEROL 1000 INTER.UNIT TAB PO SCH (07:57)
[2017-11-25] MEDS: PANTOprazole SOD 40 MG TAB PO SCH (07:57)
[2017-11-25] MEDS: CYANOCOBALAMIN 500 MCG TAB (VIT B-12) PO SCH (07:57)
[2017-11-25] MEDS: CALCIUM 600MG + VIT D 400 IU TAB PO SCH (07:57)
[2017-11-25] MEDS: RANITIDINE HCL 150 MG TAB PO SCH (07:57)
[2017-11-25] MEDS: POLYETHYLENE (MIRALAX) 17 GM PACK PO PRN (08:06)
[2017-11-25] MEDS: MoRPHine SULFATE CR 15 MG TAB (MS CONTIN) PO SCH (08:06)
[2017-11-25] MEDS: INSULIN ASPART 100 UNITS/ML 3 ML PEN SC SCH ×2 (09:00→12:53)
[2017-11-25] MEDS: INSULIN GLARGINE SOLOSTAR 100 UNITS/ML 3 ML PEN SC SCH (09:01)
[2017-11-25 09:22] LABS: HEMATOCRIT 36.6 % (37-47); HEMOGLOBIN 11.9 g/dL (12.0-16.0); MEAN CELL VOLUME 88.2 fL (80-100); MEAN CORPUSCULAR HEMOGLOBIN 28.7 pg (25-34); MEAN CORPUSCULAR HGB CONC 32.5 g/dl (32-36); MEAN PLATELET VOLUME 9.6 fL (7.4-10.4); PLATELET COUNT 210 K/uL (130-400); RED CELL DISTRIBUTION WIDTH CV 13.6 % (11.5-14.5); RED CELL DISTRIBUTION WIDTH SD 44.1 fL (36.4-46.3); WHITE BLOOD COUNT 12.66 K/uL (4.8-10.8)
--- NOTE | 2017-11-25 09:31 | PULMONARY PROGRESS NOTE ---
DATE: 11/25/2017 TIME: 8:35 a.m. SUBJECTIVE: The patient is doing better. She had a good night sleep. She did not have any overnight dyspnea. She definitely feels much better than on admission. She is still short of breath with significant exertion. She feels that her cough is loose, but she has not expectorated any phlegm. OBJECTIVE: GENERAL: The patient appears comfortable at rest. VITAL SIGNS: Temperature is 37 degrees. CARDIOVASCULAR: Heart rate is 60 per minute. Rhythm is regular. Blood pressure 183/80. RESPIRATORY: Lung woodard reveal decreased breath sounds. Faint end expiratory wheezing heard with forced vital capacity maneuver. Saturation is 97% on 4 L. Respiratory rate is 20. EXTREMITIES: Showed no cyanosis, clubbing, or edema. LABORATORY DATA: Blood sugar this morning is 122. IMPRESSION: 1. Chronic obstructive pulmonary disease with exacerbation. 2. Alpha 1 antitrypsin deficiency. COMMENTS AND RECOMMENDATIONS: The patient is doing well. I have no objection to discharge today if desired. I would send her home with a prednisone taper starting at about 40 mg daily for 3 days, then decreasing thereafter. She can continue with her Trelegy Ellipta. I believe she would benefit from having levalbuterol nebulizer solution to have at home if need be. She should have a pulmonary followup in about 2-3 weeks. She can continue doxycycline for a total of 7 days. She could be switched over to Ceftin to finish a 7 day course as well.
--- NOTE | 2017-11-25 12:21 | Progress Note ---
Internal Med Progress Note Date of Service: Nov 25, 2017. Provider Documentation: Subjective: Patient seen and examined. Patient is ambulatory while on oxygen. She denies chest pain. Denies vomiting. She reports her breathing at her baseline Physical Exam General no acute distress Head: normocephalic, Atraumatic Eyes: normal inspection, EOMI Neck: supple, Trachea midline Respiratory/Chest: Lungs: good air entry, no wheezing Cardiovascular: S1, S2, No murmur Abdomen/GI:Soft, Non tender, Bowel sounds present Extremities/Musculoskelatal:normal inspection, no edema Neurologic/Psych:AAOX3, grossly no focal neurological deficits Skin:normal color,warm ASSESSMENT & PLAN: Hospital Course and Plans This is a 62-year-old female with a PMH of severe COPD, alpha-1 antitrypsin deficiency, chronic hypoxemic respiratory failure (on 4 L at home), DM 2 and other medical problems listed below who presents from pulmonary clinic with COPD exacerbation. Chronic hypoxemic respiratory failure -uses home oxygen 24 hours a day at home -Continue supplemental O2 COPD exacerbation Alpha-1 antitrypsin deficiency (has in the past been on weekly infusion of Prolastin-C, can hold as per pulmonary service for now) -Sent from Dr. Georges's office, where she received 125mg IV solumedrol and a duoneb treatment -was on solumedrol and nebulizer treatments and has been on rocephin and doxycycline in the hospital continue Ellipta inhaler at home -will continue doxycycline and cefuroxime for 4 more days -will have patient on prednisone taper of 40 mg daily for 3 days, then 30 mg daily for 3 days, then 20 mg daily for 3 days, then 10 mg daily for 3 days -discharge with prescription for use as needed Levalbuterol nebulizer treatments Prolonged QTC appears to have resolved -hypomagnesemia resolved after magnesium repletion -can transfer off telemetry DM II -A1c of 8.7 in October 2017 -Basal/bolus insulin while in-patient -BSG checks AC HS Chronic pain syndrome -H/o spinal surgeries -Cont home morphine ER and IR GERD -Cont protonix, ranitidine Mood disorder -Cont Celexa Discharge Instructions -will continue doxycycline and cefuroxime for 4 more days -will have patient on prednisone taper of 40 mg daily for 3 days, then 30 mg daily for 3 days, then 20 mg daily for 3 days, then 10 mg daily for 3 days -discharge with prescription for use as needed Levalbuterol nebulizer treatments Follow up with: 11/29/2017 11:00 AM August Esposito MD General Internal Medicine [facility] Thursday December 14, 2017 11 AM with Suleiman Jansen [address], [address] [place] [address] Vital Signs: Date Time Temp Pulse Resp B/P (MAP) Pulse Ox O2 Delivery O2 Flow Rate FiO2 11/25/17 13:13 37.0 61 20 97 Nasal Cannula 11/25/17 08:00 Nasal Cannula 4.0 11/25/17 07:20 37.0 61 20 183/80 (114) 97 Nasal Cannula 4.0 11/25/17 07:07 58 20 97 Nasal Cannula 4.0 11/25/17 00:12 36.3 70 18 179/80 (113) 96 4.0 11/25/17 00:00 Nasal Cannula 4.0 11/24/17 19:09 71 20 94 Nasal Cannula 3.0 11/24/17 19:00 Nasal Cannula 4.0 11/24/17 18:01 36.6 87 18 129/71 (90) 93 Nasal Cannula 4.0 11/24/17 17:29 36.7 80 18 94 4.0 11/24/17 16:44 36.7 80 18 152/79 (103) 94 Nasal Cannula 4.0 11/24/17 14:06 84 20 97 Nasal Cannula 3.0 Lab Results: Results Past 24 Hours Test 11/24/17 16:19 11/24/17 20:09 11/25/17 08:04 11/25/17 09:16 Range/Units Bedside Glucose 102 147 122 70-90 mg/dl White Blood Count 12.66 4.8-10.8 K/uL Red Blood Count 4.15 4.2-5.4 M/uL Hemoglobin 11.9 12.0-16.0 g/dL Hematocrit 36.6 37-47 % Mean Corpuscular Volume 88.2 80-100 fL Mean Corpuscular Hemoglobin 28.7 25-34 pg Mean Corpuscular Hemoglobin Concent 32.5 32-36 g/dl RDW Standard Deviation 44.1 36.4-46.3 fL RDW Coefficient of Variation 13.6 11.5-14.5 % Platelet Count 210 130-400 K/uL Mean Platelet Volume 9.6 7.4-10.4 fL Test 11/25/17 12:02 Range/Units Bedside Glucose 85 70-90 mg/dl
[2017-11-25 13:13] VITALS: BP 183/80; PULSE 61; TEMP 37; O2SAT 97
[2017-11-25] MEDS ORDERED: CEFU1TAB35 OR ×2 (13:56)
[2017-11-25] MEDS ORDERED: DXY100 PO ×2 (13:56)
[2017-11-25] MEDS ORDERED: XPNINS1255 INH ×2 (13:57)
[2017-11-25] MEDS ORDERED: NEBMAC ×2 (13:57)
[2017-11-25] MEDS ORDERED: PRED20TA2 PO ×4 (13:59→14:02)
[2017-11-25 14:07] VITALS: PULSE 59; O2SAT 97
--- NOTE | 2017-11-25 14:09 | Discharge Summary ---
Discharge Summary Date of Service Nov 25, 2017. Discharge Summary Admission Date: Nov 22, 2017 at 14:23 Discharge Date: Nov 25, 2017 Discharge Disposition: Home Principal Diagnosis: COPD exacerbation Secondary Diagnoses/Problems: Alpha 1 antitrypsin deficiency Type 2 diabetes Medication Reconciliation New Medications: Cefuroxime Axetil (Cefuroxime Axetil) 500 Mg Tab 1 TAB OR BID for 4 Days, #8 TAB Nebulizer Machine (Home Use) (Nebulizer Machine (Home Use) ) Mis EA N/A UD, #1 Prednisone (Prednisone Tab) 20 Mg Tab 0 PO DAILY for 14 Days, #15 TAB take 40 mg daily for 3 days take 30 mg daily for 3 days take 20 mg daily for 3 days take 10 mg daily for 3 days Doxycycline Hyclate (Doxycycline Hyclate) 100 Mg Cap 100 MG PO BID for 4 Days, #8 CAP Levalbuterol (Levalbuterol) 1.25 Mg/0.5 Ml Nebu 1.25 MG INH Q6R PRN for Wheezing for 30 Days, #120 EA Continued Medications: Albuterol Hfa (Ventolin Hfa) 200 Puffs/01025 Mcg Aers 2 PUFFS INH Q4 PRN for SOB/Wheezing, #1 INHALER Alpha1-Proteinase Inhibitor (H (Prolastin-C) 1,000 Mg Inj Unknown Dose UNKNOWN DIRECTED Aspirin (Aspirin Ec) 81 Mg Tab 81 MG PO DAILY Budesonide (Pulmicort Respules 0.5MG/2ML) 0.5 Mg/2 Ml Nebu 2 ML INH DAILY, EA Budesonide (Nasal) (Rhinocort Allergy) 32 Mcg/Act Sandy 2 SPRAYS NA DAILY Calcium/Vitamin D (Os-Oliverio 500 Plus D) Tab 1 TAB PO QAM, 0 Refills Cholecalciferol (Vitamin D3) 1,000 Unit Tab 1 TAB PO DAILY for 90 Days, #90 TAB 3 Refills Citalopram Hydrobromide (Celexa) 40 Mg Tab 40 MG PO DAILY, TAB Cyanocobalamin (B-12) 1,000 Mcg Tab 1000 MCG PO QAM Outrwhqbqca-Muxgbyooipnb-Npdzc (Trelegy Ellipta 100-62.5-25 Mcg/INH) 1 Aer Aer 1 INHA INH DAILY Guaifenesin La (Guaifenesin Er) 600 Mg Tabcr 600 MG PO Q12H PRN for Cough, TAB Home O2 Therapy (Oxygen) Gas 3-4 LITER NA CONTINOUS Insulin Glargine (Basaglar Kwikpen) 100 Unit/Ml Inj 15 UNITS SQ HS Metformin HCl (Metformin HCl) 500 Mg Tab 500 MG PO BID Morphine Sulfate (Morphine Sulfate Er) 30 Mg Tab 30 MG PO BID Morphine Sulfate Ir (Morphine Sulfate Ir) 15 Mg Tab 15 MG PO Q6H PRN for Pain, TAB Pantoprazole (Pantoprazole Sodium) 40 Mg Tab 40 MG PO DAILY, #30 Polyethylene Glycol 3350 (Miralax) 1 Pow Pow 17 GM PO DAILY PRN for Consult, #527 GM Potassium Chloride (Micro-K Ext Rel) 10 Meq Capcr 20 MEQ PO QAM, CAP Ranitidine Hcl (Zantac) 300 Mg Tab 300 MG PO BID, TAB Admission Information HPI (per Admitting provider): This is a 62-year-old female with a PMH of severe COPD, alpha-1 antitrypsin deficiency, chronic hypoxemic respiratory failure (on 4 L at home), DM 2 and other medical problems listed below who presents from pulmonary clinic with COPD exacerbation. Patient notes increased shortness of breath at rest x 4 days with associated wheezing, subjective fever and chills. Had to increase home O2 to 5L over the past few days. Called Pulm clinic yesterday and was started on 40 mg PO prednisone and Augmentin with an appointment for follow-up today. When evaluated by Dr. Georges today, he felt it necessary to direct admit patient for further care in the hospital. Was given 125 IV Solu-Medrol and a DuoNeb treatment in the office. Patient is currently saturating at 96% on 5L nasal cannula. Still experiencing shortness of breath at rest, wheezing and lightheadedness but denies headache, visual changes, chest pain, palpitations, abdominal pain, nausea, vomiting, bowel or bladder changes or lower extremity swelling. Brio and Spiriva inhalers were discontinued last week by Dr. Georges and patient was started on Trelegy Ellipta inhaler. Receives Prolastin therapy weekly for alpha-1 antitrypsin deficiency. Patient is a DNR, per POLST. Physical Exam (per Admitting): General Appearance: WD/WN, + mild distress Head: normocephalic, atraumatic Eyes: normal inspection, sclerae normal ENT: normal ENT inspection, hearing grossly normal, pharynx normal (moist mucous membranes ) Neck: supple, thyroid normal, trachea midline Respiratory/Chest: chest non-tender, no respiratory distress, no accessory muscle use, + decreased breath sounds, + wheezing (Diffuse expiratory wheezing ) , + pertinent finding (Saturating well on 5L NC O2) Cardiovascular: regular rate, rhythm, normal peripheral pulses Abdomen/GI: non tender, soft, no organomegaly Extremities/Musculoskelatal: normal inspection, no calf tenderness, no pedal edema Neurologic/Psych: no motor/sensory deficits, alert, normal mood/affect, oriented x 3 Skin: normal color, warm/dry, no rash Hospital Course Hospital Course and Plans This is a 62-year-old female with a PMH of severe COPD, alpha-1 antitrypsin deficiency, chronic hypoxemic respiratory failure (on 4 L at home), DM 2 and other medical problems listed below who presents from pulmonary clinic with COPD exacerbation. Chronic hypoxemic respiratory failure -uses home oxygen 24 hours a day at home -Continue supplemental O2 COPD exacerbation Alpha-1 antitrypsin deficiency (has in the past been on weekly infusion of Prolastin-C, can hold as per pulmonary service for now) -Sent from Dr. Georges's office, where she received 125mg IV solumedrol and a duoneb treatment -was on solumedrol and nebulizer treatments and has been on rocephin and doxycycline in the hospital continue Ellipta inhaler at home -will continue doxycycline and cefuroxime for 4 more days -will have patient on prednisone taper of 40 mg daily for 3 days, then 30 mg daily for 3 days, then 20 mg daily for 3 days, then 10 mg daily for 3 days -discharge with prescription for use as needed Levalbuterol nebulizer treatments Prolonged QTC appears to have resolved -hypomagnesemia resolved after magnesium repletion -can transfer off telemetry DM II -A1c of 8.7 in October 2017 -Basal/bolus insulin while in-patient -BSG checks AC HS Chronic pain syndrome -H/o spinal surgeries -Cont home morphine ER and IR GERD -Cont protonix, ranitidine Mood disorder -Cont Celexa Discharge Instructions -will continue doxycycline and cefuroxime for 4 more days -will have patient on prednisone taper of 40 mg daily for 3 days, then 30 mg daily for 3 days, then 20 mg daily for 3 days, then 10 mg daily for 3 days -discharge with prescription for use as needed Levalbuterol nebulizer treatments Follow up with: 11/29/2017 11:00 AM August Esposito MD General Internal Medicine [facility] Thursday December 14, 2017 11 AM with Suleiman Jansen [address], [place] [id number] Total time spent on discharge = 40 minutes This includes examination of the patient, discharge planning, medication reconciliation, and communication with other providers. Discharge Instructions see above
--- NOTE | 2017-11-25 14:09 | Discharge Instructions ---
Discharge Instructions Date of Service Nov 25, 2017. Admission Reason for Admission: Copd Exacerbation Discharge Discharge Diagnosis / Problem: COPD exacerbation Discharge Goals Goal(s): Improve function Activity Recommendations Activity Limitations: per Instructions/Follow-up section . Instructions / Follow-Up Instructions / Follow-Up Hospital Course and Plans This is a 62-year-old female with a PMH of severe COPD, alpha-1 antitrypsin deficiency, chronic hypoxemic respiratory failure (on 4 L at home), DM 2 and other medical problems listed below who presents from pulmonary clinic with COPD exacerbation. Chronic hypoxemic respiratory failure -uses home oxygen 24 hours a day at home -Continue supplemental O2 COPD exacerbation Alpha-1 antitrypsin deficiency (has in the past been on weekly infusion of Prolastin-C, can hold as per pulmonary service for now) -Sent from Dr. Georges's office, where she received 125mg IV solumedrol and a duoneb treatment -was on solumedrol and nebulizer treatments and has been on rocephin and doxycycline in the hospital continue Ellipta inhaler at home -will continue doxycycline and cefuroxime for 4 more days -will have patient on prednisone taper of 40 mg daily for 3 days, then 30 mg daily for 3 days, then 20 mg daily for 3 days, then 10 mg daily for 3 days -discharge with prescription for use as needed Levalbuterol nebulizer treatments Prolonged QTC appears to have resolved -hypomagnesemia resolved after magnesium repletion -can transfer off telemetry DM II -A1c of 8.7 in October 2017 -Basal/bolus insulin while in-patient -BSG checks AC HS Chronic pain syndrome -H/o spinal surgeries -Cont home morphine ER and IR GERD -Cont protonix, ranitidine Mood disorder -Cont Celexa Discharge Instructions -will continue doxycycline and cefuroxime for 4 more days -will have patient on prednisone taper of 40 mg daily for 3 days, then 30 mg daily for 3 days, then 20 mg daily for 3 days, then 10 mg daily for 3 days -discharge with prescription for use as needed Levalbuterol nebulizer treatments Follow up with: 11/29/2017 11:00 AM August Esposito MD General Internal Medicine [facility] Thursday December 14, 2017 11 AM with Suleiman Jansen [address], [address] [place] [address] Current Hospital Diet Patient's current hospital diet: Diabetes Type 2 Diet Discharge Diet Recommended Diet: Diabetes Type 2 Diet Pending Studies Studies pending at discharge: no Laboratory Results 11/25/17 09:16 11/24/17 07:00 Test 11/22/17 15:00 11/24/17 07:00 11/25/17 09:16 11/25/17 12:02 Prothrombin Time 10.4 SECONDS (9.0-12.0) Prothromb Time International Ratio 1.0 (0.9-1.1) Activated Partial Thromboplast Time 24.9 SECONDS (21.0-31.0) Partial Thromboplastin Ratio 1.0 Anion Gap 5.0 mmol/L (3-11) Est Creatinine Clear Calc Drug Dose 64.8 ml/min Estimated GFR () 83.3 Estimated GFR (Non- 71.9 BUN/Creatinine Ratio 27.0 (10-20) Calcium Level 9.0 mg/dl (8.5-10.1) Magnesium Level 2.3 mg/dl (1.8-2.4) Total Bilirubin 0.3 mg/dl (0.2-1) Aspartate Amino Transf (AST/SGOT) 23 U/L (15-37) Alanine Aminotransferase (ALT/SGPT) 23 U/L (12-78) Alkaline Phosphatase 65 U/L (45-117) Total Protein 6.9 gm/dl (6.4-8.2) Albumin 3.5 gm/dl (3.4-5.0) Globulin 3.4 gm/dl (2.5-4.0) Albumin/Globulin Ratio 1.0 (0.9-2) Red Blood Count 4.15 M/uL (4.2-5.4) Mean Corpuscular Volume 88.2 fL (80-100) Mean Corpuscular Hemoglobin 28.7 pg (25-34) Mean Corpuscular Hemoglobin Concent 32.5 g/dl (32-36) RDW Standard Deviation 44.1 fL (36.4-46.3) RDW Coefficient of Variation 13.6 % (11.5-14.5) Mean Platelet Volume 9.6 fL (7.4-10.4) Bedside Glucose 85 mg/dl (70-90) Medical Emergencies . Who to Call and When: Medical Emergencies: If at any time you feel your situation is an emergency, please call 911 immediately. . Non-Emergent Contact Non-Emergency issues call your: Primary Care Provider, [facility] [employer]aker Call Non-Emergent contact if: you have any medication questions . . "Provider Documentation" section prepared by Altaf Gomez. .
== END 2017-11-25 14:45 | disposition home health service (06) | DRG 191 ==
LOC: C.2T 14:23 → ENRESERV 11-24 17:21 → C.MS4W 11-24 17:57
PROVIDERS: ADMIT Internal Medicine; ATTEND Hospitalist
DX: J44.1 Chronic obstructive pulmonary disease with (acute) exacerbation (principal); J96.11 Chronic respiratory failure with hypoxia; Z99.81 Dependence on supplemental oxygen; E88.01 Alpha-1-antitrypsin deficiency; I45.81 Long QT syndrome; E83.42 Hypomagnesemia; E11.9 Type 2 diabetes mellitus without complications; G89.29 Other chronic pain; K21.9 Gastro-esophageal reflux disease without esophagitis; F32.9 Major depressive disorder, single episode, unspecified; Z87.891 Personal history of nicotine dependence; Z87.01 Personal history of pneumonia (recurrent); Z86.711 Personal history of pulmonary embolism; Z85.72 Personal history of non-Hodgkin lymphomas; Z79.4 Long term (current) use of insulin; Z79.51 Long term (current) use of inhaled steroids; Z79.82 Long term (current) use of aspirin; Z79.891 Long term (current) use of opiate analgesic; Z79.899 Other long term (current) drug therapy; Z88.2 Allergy status to sulfonamides; Z83.6 Family history of other diseases of the respiratory system

== ENCOUNTER → 2017-11-22 | Outpatient (CLI) | payer OTHER ==
[~2017-11-22] MED LIST changes: +CEFU1TAB35 OR; +CYCL5TAB PO; +DXY100 PO; +FLUT1AER14 INH; +GUAI1TAB75 PO; -IBUP-1450 PO; +IBUP-1451 PO; -LACTATED RINGER'S 1000ML 1,000 ML IV SCH; +MORP15TA PO; +NEBMAC; +PRED20TA2 PO; +RXC5 PO; -RXNS10 PO; +SPRIN INH; +XPNINS1255 INH
--- NOTE | 2017-11-22 13:32 | DIAGNOSTIC IMAGING REPORT ---
CHEST 2 VIEWS ROUTINE CLINICAL HISTORY: E88.01, J96.10, J20.9 SHORTNESS OF BREATH. COUGH. COPD. COMPARISON STUDY: 05/01/2017 FINDINGS: The heart is normal in size. There is no failure. There is no lobar consolidation. There is a left-sided A-Port catheter. There are postsurgical changes present within the cervical spine. There is underlying pulmonary emphysema. There are a few scattered nonspecific interstitial opacities.[ IMPRESSION: 1. Pulmonary emphysema 2. No evidence of focal pulmonary consolidation 3. Nonspecific scattered interstitial densities 4. No evidence of failure Electronically signed by: Omid Nichole M.D. 11/22/2017 1:30 PM Dictated Date/Time: 11/22/2017 1:28 PM
== END | disposition home or self-care (01) ==
LOC: C.RAD1850 12:50
PROVIDERS: ATTEND Internal Medicine Critical Care Medicine
DX: E88.01 Alpha-1-antitrypsin deficiency (principal); J20.9 Acute bronchitis, unspecified; J96.10 Chronic respiratory failure, unspecified whether with hypoxia or hypercapnia; J43.9 Emphysema, unspecified

== ENCOUNTER → 2017-12-14 | Outpatient (CLI) | payer OTHER ==
[~2017-12-14] MED LIST changes: +CEFU1TAB35 OR; -DLR500 PO; +DXY100 PO; +FLUT1AER14 INH; -FLUT1INH INH; +GUAI1TAB75 PO; +MORP15TA PO; -NRN100 PO; -NVLG SQ; +OPTIRAY 320 IV PRN; +PRED20TA2 PO; -RXC5 PO; +XPNINS1255 INH
[2017-12-14 13:52] LABS: BLOOD UREA NITROGEN 13 mg/dl (7-18); CREATININE 0.87 mg/dl (0.60-1.20)
--- NOTE | 2017-12-14 14:34 | DIAGNOSTIC IMAGING REPORT ---
CT ANGIOGRAM OF THE CHEST CLINICAL HISTORY: Dyspnea. COMPARISON STUDY: Chest x-ray dated 11/22/2017. Chest CT scans dated 03/19/2017 and 04/30/2015. TECHNIQUE: Following the IV administration of 120 cc of Optiray 320, CT angiogram of the chest was performed from the upper abdomen to the thoracic inlet utilizing the pulmonary embolus protocol. Images are reviewed in the axial, sagittal, and coronal planes. 3-D MIPS images are created and assessed. IV contrast was administered without complication. A dose lowering technique was utilized adhering to the principles of ALARA. CT DOSE: 556.96 mGycm FINDINGS: Thyroid: The thyroid gland appears enlarged and heterogeneous. Thoracic aorta: There is evidence carotid calcification of the thoracic aorta, which is normal in caliber and demonstrates standard 3-vessel arch anatomy. No dissection is seen. A left subclavian central venous infusion port is unchanged in position. Pulmonary vasculature: The main pulmonary arteries appear dilated suggesting pulmonary artery hypertension. There are no filling defects identified in main, lobar, or segmental pulmonary branches to suggest pulmonary embolus. Heart: The heart is enlarged and without pericardial effusion. There are coronary artery calcifications. Lungs and pleural spaces: Advanced emphysema is identified. No airspace consolidation or large pleural effusion is seen. Mild diffuse peribronchial thickening is noted. There is a large calcified granuloma at the left lung base. Minimal secretions are noted in the trachea. Mediastinum: Mildly enlarged mediastinal lymph nodes are similar to previous. A periaortic node on image #199 measures 12 mm in short axis. Leonor: Prominent right hilar nodes measure up to 11 mm in short axis. Axillae: There is no axillary lymphadenopathy. Upper abdomen: There is a nonobstructing calculus in the upper pole of left kidney. A small hiatal hernia is observed. Skeletal structures: The skeletal structures are osteopenic. Fusion hardware is seen in the lower cervical spine. No lytic or blastic bony lesions are seen. IMPRESSION: 1. There is no evidence of pulmonary embolus in the main, lobar, or segmental pulmonary arteries. 2. Cardiomegaly and advanced emphysema. 3. There is no airspace consolidation or pleural effusion. 4. Mild diffuse peribronchial thickening suggests reactive air disease. Clinical correlation will be required. 5. Nonobstructing left renal calculus. 6. Additional findings as above. Electronically signed by: Luis Alfredo Dickerson M.D. 12/14/2017 2:33 PM Dictated Date/Time: 12/14/2017 2:26 PM
== END | disposition home or self-care (01) ==
LOC: C.CTS 12:59
PROVIDERS: ATTEND Physician Assistant
DX: E11.9 Type 2 diabetes mellitus without complications (principal); J96.10 Chronic respiratory failure, unspecified whether with hypoxia or hypercapnia; R07.81 Pleurodynia; R06.02 Shortness of breath; I51.7 Cardiomegaly; J43.9 Emphysema, unspecified; N20.0 Calculus of kidney

== ENCOUNTER 2018-10-30 14:20 | Inpatient (IN) ==
[2018-10-30] MEDS ORDERED: ACETAMINOPHEN 325 MG TAB PO PRN (15:01)
[2018-10-30] MEDS ORDERED: POLYETHYLENE (MIRALAX) 17 GM PACK PO PRN ×2 (15:01→15:40)
[2018-10-30] MEDS ORDERED: ONDANSETRON INJ 2 MG/ML 2 ML VIAL IV PRN (15:01)
[2018-10-30] MEDS ORDERED: ALBUTEROL HFA 8 GM INHALER INH PRN (15:40)
[2018-10-30] MEDS ORDERED: LEVALBUTEROL HCL 1.25 MG/3 ML NEB INH PRN ×2 (15:40→17:11)
[2018-10-30] MEDS ORDERED: IBUPROFEN 600 MG TAB PO PRN (15:40)
--- NOTE | 2018-10-30 15:43 | History & Physical Report ---
Date of Service October 30, 2018 Assessment & Plan (1) Chronic respiratory failure with hypoxia: (2) COPD exacerbation: This is a 63 yo F with a PMH of chronic respiratory failure in setting of COPD (on 4L NC), qmage-6-ceevpojjspg deficiency, DM II, depression, GERD and other medical problems below who presents as a direct admission from pulmonary clinic with chronic respiratory failure with hypoxia and COPD exacerbation. -Currently saturating at 93% on 4L NC -IV solu-medrol 40mg Q8H, Xopenex nebs Q6H -Awaiting CBC results but no fever. Procalcitonin is normal. No evidence of PNA on CXR -Blood cultures obtained. Will hold off on antibiotics for now -Continue home Trelegy and Pulmicort -Consider pulmonary consult if no improvement on IV steroids (3) Wweje-1-vjuvfqaqyev deficiency: Is due for next Prolastin-C infusion tomorrow - to bring from home. Nursing to send to pharmacy for mixing and administration (4) Coronary artery disease: Nonobstructive CAD on [facility] July 2018 cardiac catheterization -Continue baby aspirin, statin (5) Diabetes type 2, controlled: A1c of 6.1 in May 2018 -Hold home agents -Basal/bolus insulin per protocol while in-patient -BSG AC HS (6) Depression: Continue Celexa (7) Chronic pain syndrome: Continue Morphine 30mg ER Q12H and Morphine 15mg IR Q6H PRN for breakthrough pain (8) GERD (gastroesophageal reflux disease): Continue Protonix, Zantac DVT Ppx: SQ heparin Code status: FULL code but not interested in shelter mechanical ventilation, per discussion PCP: Cate Dispo: Admitted to telemetry. Plan to return home once medically stable. Patient seen in collaboration with Dr. Gomez. Please see addendum. History of Present Illness Chief Complaint: Shortness of breath Primary Care Provider: August Esposito MD This is a 63 yo F with a PMH of chronic respiratory failure in setting of COPD (on 4L NC), rxkze-1-ghexparabfj deficiency, DM II, depression, GERD and other medical problems below who presents as a direct admission from pulmonary clinic with COPD exacerbation. Patient was seen in pulmonary clinic 2 weeks ago with increased shortness of breath and was given 125mg IV Solumedrol, steroid dose pack and Augmentin. Patient was seen again in clinic today by Ines Kemp was found to have difficulty breathing and diffuse wheezing. Was sent as a direct admission for further treatment of COPD exacerbation. Endorses chills, wheezing and dyspnea on exertion for the last 4 days. Has a nonproductive cough. Denies fever, lightheadedness, headache, chest pain, palpitations, hemoptysis, abdominal pain, nausea, vomiting, dysuria, diarrhea or constipation. Is followed by [facility] transplant team and has appointment on November 23 to find out if she was approved for lung transplant or not. Recently underwent cardiac catheterization in July 2018 at [facility] as part of transplant work up and was found to have nonobstructive coronary artery disease. Was recently started on baby aspirin and statin, per Dr. Whiteside. Receives Prolastin-C infusion every week for alpha-1 antitrypsin deficiency and is due tomorrow. Allergies Allergy/AdvReac Type Severity Reaction Status Date / Time Bactrim Allergy Unknown RASH Verified 07/01/17 06:46 Home Medications Home Medications Medication Instructions Recorded Confirmed Type Trelegy Ellipta 1 inh INHALATION DAILY 03/29/18 10/30/18 History albuterol sulfate [ProAir HFA] 2 puff INHALATION Q4H PRN 03/29/18 10/30/18 History alpha-1 proteinase inhib.(hum) See Rx Instructions .ROUTE .COMPLEX 03/29/18 10/30/18 History aspirin [Aspirin Low Dose] 81 mg PO DAILY 03/29/18 10/30/18 History budesonide [Pulmicort] 2 ml INHALATION DAILY 03/29/18 10/30/18 History calcium carbonate-vitamin D3 1 tab PO DAILY 03/29/18 10/30/18 History [Calcium 500 + D (D3)] cholecalciferol (vitamin D3) 1,000 unit PO DAILY 03/29/18 10/30/18 History [Vitamin D3] citalopram 1 tab PO DAILY 03/29/18 10/30/18 History cyanocobalamin (vitamin B-12) 1,000 mcg PO DAILY 03/29/18 10/30/18 History [Vitamin B-12] ibuprofen 600 mg PO QID PRN 03/29/18 10/30/18 History insulin glargine 4 units SUBCUT HS 03/29/18 10/30/18 History levalbuterol HCl 1.25 mg INHALATION Q6H PRN 03/29/18 10/30/18 History metformin 1 tab PO BID 03/29/18 10/30/18 History morphine 1 tab PO Q12H 03/29/18 10/30/18 History pantoprazole 1 tab PO DAILY 03/29/18 10/30/18 History polyethylene glycol 3350 [Miralax] 17 g PO DAILY PRN 03/29/18 10/30/18 History prednisone 2 tabs PO DAILY 03/29/18 10/30/18 History ranitidine HCl 1 tab PO BID 03/29/18 10/30/18 History atorvastatin 10 mg PO DAILY 10/30/18 10/30/18 History insulin aspart U-100 [Novolog 5 unit SUBCUT TIDM 10/30/18 10/30/18 History Flexpen U-100 Insulin] morphine 15 mg PO Q6H PRN 10/30/18 10/30/18 History Past Med/Surg History Medical History Coronary artery disease (Chronic) Chronic respiratory failure with hypoxia (Chronic) 4L home O2 COPD (chronic obstructive pulmonary disease) (Chronic) Kpxae-9-jssfdyyumqs deficiency (Chronic) Diabetes type 2, controlled (Chronic) H/O lymphoma (Chronic) Depression (Chronic) Chronic pain syndrome (Chronic) GERD (gastroesophageal reflux disease) (Chronic) Surgical History S/P SORAIDA (total abdominal hysterectomy) (Chronic) History of bronchoscopy (Chronic) History of back surgery (Chronic) Family History Other Diabetes Social History Preferred Language: Tamazight Communication Ability: Effective Artificial Intelligence Specialist Required: No Beliefs That Will Affect Care: None Current Living Situation: Spouse Other Information That Helps Us Care for You: No Feels Safe at Home: Yes Safety Concerns: Feels Safe At This Time Smoking Status: Former smoker Tobacco Type: cigarettes Do You Dip or Chew Tobacco: No Smoking End Date: 2005 Second Hand Exposure: No Tobacco Cessation Education Requested by Patient: No Hx Alcohol Use: No Hx Substance Use: No Review of Systems Review of Systems: At least ten systems reviewed and negative except as noted in the HPI. Physical Exam Physical Exam: General Appearance: WD/WN, no apparent distress, becomes short of breath when speaking Head: normocephalic, atraumatic Eyes: normal inspection, PERRL, EOMI ENT: hearing grossly normal, pharynx normal (moist mucous membranes) Neck: supple, no JVD, no adenopathy Respiratory/Chest: Poor air movement bilaterally. Diffue expiratory wheezing. No rales or rhonci. Cardiovascular: regular rate, rhythm, no murmur, normal peripheral pulses, no BLE edema Abdomen/GI: normal bowel sounds, soft, non-tender to palpation Extremities/Musculoskelatal: normal inspection, no calf tenderness, normal capillary refill, no pedal edema Neurologic/Psych: alert, normal mood/affect, oriented x 3 Skin: normal color, warm/dry Results & Data Vital Signs (Past 12 Hours) Vital Signs Temp Pulse Resp BP Pulse Ox 10/30/18 15:05 36.7 C 87 17 112/67 93 Laboratory Results Labwork is pending Diagnostic Findings CXR: IMPRESSION: Emphysema with chronic interstitial thickening. No acute findings. Supervising Physician Co-Signing Physician Notes I have seen and examined the patient with physician gift shop assistant and agree with the assessment and plan as above and would like to comment that Shortness of breath secondary to COPD exacerbation alpha-1 antitrypsin deficiency Chronic hypoxic respiratory failure -Patient has been following with [facility] ([facility]) for lung transplant evaluation -nebulizers, and solumedrol for COPD exacerbation -no evidence of pneumonia at this time, CXR with no infiltrates and procalcitonin negative -monitor without antibiotics for now History of non-obstructive moderate single vessel disease - Cardiac catheterization report summary [facility] August 18, 2018 (RHC: PA 34/16 (mean of 25), PCWP 19 mm Hg, PA Sat 73%, CO/CI 5.6/3.1 LM: no disease. LAD: medium caliber, tortuous, no disease. LCx: tortuous, gives off 2 OMs, no disease. RCA: large, dominant, with a very focal 30% proximal lesion and a focal 40% eccentric lesion at the origin of the acute marginal branch) - patient follows with outpatient professional bass fisherman Dr. Whiteside who on his 09/22/18 clinic who recommended patient be on statin Small patent foramen ovale with moderate right to left shunt. -2D echocardiogram report August 28, 2018: The left ventricular cavity size is normal. The LV wall thickness is borderline increased (concentric). The left ventricular wall motion is normal. The qualitative LV ejection fraction is 65-69% (normal). The left ventricular diastolic function is mildly abnormal (grade I). There is no significant valvular disease There is an atrial septal aneurysm. There is a small patent foramen ovale. There is moderate right to left shunt through the patent foramen ovale at rest by saline contrast injection. -patient follows with outpatient professional bass fisherman Dr. Whiteside who on his 09/22/18 clinic note reviewed patients cardiac cath records from [facility] and recommended to continue low-dose aspirin therapy Moderate right internal carotid artery stenosis - outpatient carotid duplex planned August 2019 Type 2 diabetes mellitus controlled with long term acute care registered nurse current use of insulin -management as described by physician gift shop assistant Other medical issues and plans as described by physician gift shop assistant Physical exam Neuro: awake and alert and cooperative on exam, speaks in full sentences Lungs: expiratory wheezes, on nasal cannula Heart: regular rate and rhythm Abdomen" soft, nontender, positive bowel sounds Extremities: moves all extremities
[2018-10-30] MEDS ORDERED: GLUCOSE 10 TABS/TUBE PO PRN (15:57)
[2018-10-30] MEDS ORDERED: GLUCOSE 40% GEL 15 GM TUBE PO PRN (15:57)
[2018-10-30] MEDS ORDERED: GLUCAGON FOR INJ 1 MG VIAL SQ PRN (15:57)
[2018-10-30] MEDS ORDERED: DEXTROSE 50% 50 ML SYRINGE IV PRN (15:57)
[2018-10-30] MEDS ORDERED: CARBOHYDRATES FOR HYPOGLYCEMIA PO PRN (15:57)
--- NOTE | 2018-10-30 16:08 | XRay Report ---
XR chest 2V routine CLINICAL HISTORY: COPD exacerbation COMPARISON STUDY: 10/13/2018 FINDINGS: The cardiac and distal contours remain stable. There is radiographic evidence of emphysema. There is stable interstitial thickening. There is a left subclavian A-Port catheter. There is no evonne lure. There are no pleural effusions. Postsurgical changes are present within the cervical spine.[ IMPRESSION: Emphysema with chronic interstitial thickening. No acute findings. Electronically signed by: Omid Nichole M.D. 10/30/2018 4:07 PM
[2018-10-30] MEDS ORDERED: ALBUT/IPRATROP 3MG/0.5MG NEB 3 ML VIAL NEB STA (17:09)
[2018-10-30] MEDS: methylPREDNISolone 40 MG in SYRINGE 0 ML IV SCH (17:10)
[2018-10-30] MEDS: [UNRECOGNIZED DRUG - OTHER] SCH ×2 (17:10→21:53)
[2018-10-30] MEDS: INSULIN ASPART 100 UNITS/ML 3 ML PEN SC SCH ×2 (17:12→21:10)
[2018-10-30] MEDS: MoRPHine SULFATE IR 15 MG TAB (IMMEDIATE RELEASE) PO PRN (17:14)
[2018-10-30] MEDS ORDERED: Nursing to Pharmacy Communication ONE (17:58)
[2018-10-30] MEDS ORDERED: MoRPHine SULFATE CR 15 MG TABCR PO SCH (18:00)
[2018-10-30] MEDS: LEVALBUTEROL 1.25MG/0.5ML NEB INH SCH (19:04)
[2018-10-30] MEDS: IPRATROPIUM BROMIDE NEB SOLN 0.02% 2.5 ML VIAL INH SCH (19:04)
[2018-10-30] MEDS ORDERED: XOPENEX/ATROVENT 1.25mg/0.5MG NEB COMBO NEB SCH (20:00)
[2018-10-30] MEDS: MoRPHine SULFATE CR 15 MG TABCR PO SCH (21:07)
[2018-10-30] MEDS: INSULIN GLARGINE SOLOSTAR 100 UNITS/ML 3 ML PEN SC SCH (21:09)
[2018-10-31] MEDS: methylPREDNISolone 40 MG in SYRINGE 0 ML IV SCH ×3 (01:02→21:28)
[2018-10-31] MEDS ORDERED: HEPARIN 100 UNIT/ML 5ML FLUSH FLUSH PRN (01:08)
[2018-10-31] MEDS: LEVALBUTEROL 1.25MG/0.5ML NEB INH SCH ×4 (01:11→19:16)
[2018-10-31] MEDS: IPRATROPIUM BROMIDE NEB SOLN 0.02% 2.5 ML VIAL INH SCH ×4 (01:12→19:16)
[2018-10-31 05:44] LABS: Hematocrit (blood only) 34.8 % (37-47); Hemoglobin 11.4 g/dL (12.0-16.0); Immature Granulocytes # (auto) 0.01 K/uL (0.00-0.02); Immature Granulocytes % (auto) 0.1 %; Lymphocytes # (auto) 0.41 K/uL (1.2-3.4); Lymphocytes % (auto) 4.8 %; Mean Corpuscular Hgb Conc 32.8 g/dL (32-36); Mean Corpuscular Volume 87.9 fL (80-100); Mean Platelet Volume 9.9 fL (7.4-10.4); Monocytes # (auto) 0.04 K/uL (0.11-0.59); Monocytes % (auto) 0.5 %; Neutrophils # (auto) 8.13 K/uL (1.4-6.5); Neutrophils % (auto) 94.6 %; Platelet Count 176 K/uL (130-400); RDW Coefficient of Variation 12.8 % (11.5-14.5); RDW Standard Deviation 41.3 fL (36.4-46.3); Red Blood Count 3.96 M/uL (4.2-5.4); White Blood Count 8.59 K/uL (4.8-10.8)
[2018-10-31 06:17] LABS: Albumin Level 3.4 gm/dl (3.4-5.0); BUN Creatinine Ratio 13.6 (10-20); Calcium 9.1 mg/dl (8.5-10.1); Creatinine Clr Calc Pharmacy 58.5 ml/min; Est GFR (African American) 74.3; Est GFR (Non-African American) 64.1; Potassium 4.3 mmol/L (3.5-5.1)
[2018-10-31 06:20] LABS: Bilirubin,Total 0.3 mg/dl (0.2-1); Globulin 3.4 gm/dl (2.5-4.0); Total Protein 6.8 gm/dl (6.4-8.2)
[2018-10-31 06:38] LABS: Estimated Average Glucose 134 mg/dl; Hemoglobin A1C 6.3 % (4.5-5.6)
[2018-10-31] MEDS: BUDESONIDE 0.5 MG/2 ML VIAL (PULMICORT) INH SCH (07:28)
[2018-10-31] MEDS: [UNRECOGNIZED DRUG - OTHER] SCH ×2 (07:28→12:01)
[2018-10-31] MEDS: MoRPHine SULFATE CR 15 MG TABCR PO SCH ×2 (08:23→21:28)
[2018-10-31] MEDS: INSULIN ASPART 100 UNITS/ML 3 ML PEN SC SCH ×4 (08:24→21:30)
[2018-10-31] MEDS: INSULIN GLARGINE SOLOSTAR 100 UNITS/ML 3 ML PEN SC SCH ×2 (08:26→21:28)
[2018-10-31] MEDS: CALCIUM 600MG + VIT D 400 IU TAB PO SCH (08:34)
[2018-10-31] MEDS: ATORVASTATIN 10 MG TAB PO SCH (08:34)
[2018-10-31] MEDS: CITALOPRAM 40 MG TAB PO SCH (08:34)
[2018-10-31] MEDS: PANTOprazole 40 MG TAB PO SCH (08:35)
[2018-10-31] MEDS: CHOLECALCIFEROL 1,000 UNITS TAB PO SCH (08:35)
[2018-10-31] MEDS: ASPIRIN 81 MG ECTAB PO SCH (08:35)
[2018-10-31] MEDS: CYANOCOBALAMIN 500 MCG TABLET (VITAMIN B-12) PO SCH (08:36)
--- NOTE | 2018-10-31 11:10 | Hospitalist Progress Note ---
Date of Service October 31, 2018 Assessment & Plan (1) Chronic respiratory failure with hypoxia: (2) COPD exacerbation: This is a 63 yo F with a PMH of chronic respiratory failure in setting of COPD (on 4L NC), waedu-2-nckfcapvfdx deficiency, DM II, depression, GERD and other medical problems below who presents as a direct admission from pulmonary clinic with chronic respiratory failure with hypoxia and COPD exacerbation. Shortness of breath secondary to COPD exacerbation alpha-1 antitrypsin deficiency Chronic hypoxic respiratory failure -Patient has been following with [facility] ([facility]) for lung transplant evaluation -nebulizers, and solumedrol for COPD exacerbation; as of 10/31/18 reducing the solumedrol doing. have changed from 40 mg IV q8 hours to q12 hours -continue home Trelegy and Pulmicort -no evidence of pneumonia at this time, CXR with no infiltrates and procalcitonin negative -monitor without antibiotics for now (3) Phxkw-7-pxyvjylhlyk deficiency: -on prolastin infusions -10/31/18 Patient is awaiting for to bring in home supply of Prolastin-C for infusion (4) Coronary artery disease: History of non-obstructive moderate single vessel disease - Cardiac catheterization report summary [facility] August 18, 2018 (RHC: PA 34/16 (mean of 25), PCWP 19 mm Hg, PA Sat 73%, CO/CI 5.6/3.1 LM: no disease. LAD: medium caliber, tortuous, no disease. LCx: tortuous, gives off 2 OMs, no disease. RCA: large, dominant, with a very focal 30% proximal lesion and a focal 40% eccentric lesion at the origin of the acute marginal branch) - patient follows with outpatient flight steward Dr. Whiteside who on his 09/22/18 clinic who recommended patient be on statin Small patent foramen ovale with moderate right to left shunt. -2D echocardiogram report August 28, 2018: The left ventricular cavity size is normal. The LV wall thickness is borderline increased (concentric). The left ventricular wall motion is normal. The qualitative LV ejection fraction is 65-69% (normal). The left ventricular diastolic function is mildly abnormal (grade I). There is no significant valvular disease There is an atrial septal aneurysm. There is a small patent foramen ovale. There is moderate right to left shunt through the patent foramen ovale at rest by saline contrast injection. -patient follows with outpatient flight steward Dr. Whiteside who on his 09/22/18 clinic note reviewed patients cardiac cath records from [facility] and recommended to continue low-dose aspirin therapy Moderate right internal carotid artery stenosis - outpatient carotid duplex planned August 2019 (5) Diabetes type 2, controlled: A1c of 6.1 in May 2018 -Hold home agents -Basal/bolus insulin per protocol while in-patient -BSG AC HS (6) Depression: Continue Celexa (7) Chronic pain syndrome: Continue Morphine 30mg ER Q12H and Morphine 15mg IR Q6H PRN for ha akthrough pain (8) GERD (gastroesophageal reflux disease): Continue Protonix, Zantac DVT Ppx: SQ heparin Code status: FULL code but not interested in care home mechanical ventilation, per discussion PCP: Cate Rogers Patient seen and examined this AM and was very winded when ambulating from bed to toilet in the room. There are no expiratory wheezes today on exam compared to yesterday. No chest pain. no palpitations. no headache. no lightheadedness. no dizziness. she reported difficulty with sleeping and wondered whether it was due to the IV solumedrol. We discussed about reducing the solumedrol doing. have changed from 40 mg IV q8 hours to q12 hours Physical Exam Constitutional: comfortable Eyes: PERRL, conjunctivae normal, anicteric sclerae EOM intact bilaterally ENMT: external ear and nose normal, oropharynx normal Neck: trachea midline, no thyromegaly Respiratory: normal respiratory effort, lungs clear to auscultation Cardiovascular: Rate/Rhythm: regular rate and regular rhythm Gastrointestinal (Abdomen): normal bowel sounds, soft, nontender, no hepatosplenomegaly Musculoskeletal: no cyanosis or clubbing, extremities motor strength 5/5 Head/Neck/Chest: normocephalic and head atraumatic Neurologic: PERRL, EOMI, accommodation nl, no face palsy, no dysarthria CN's II-XI intact bilaterally Psychiatric: A+Ox3, euthymic affect Results & Data Vital Signs (Past 12 Hours) Vital Signs Temp Pulse Resp BP Pulse Ox 10/31/18 10:33 37.3 C 103 H 18 132/47 L 92 10/31/18 07:40 36.6 C 91 H 20 119/59 L 91 10/31/18 07:30 77 18 95 10/31/18 03:50 36.7 C 93 H 21 132/53 L 91 10/31/18 01:12 59 L 18 95 10/30/18 23:36 36.8 C 90 19 138/56 L 95
[2018-10-31] MEDS ORDERED: PROLASTIN C IV SCH (14:45)
[2018-10-31] MEDS ORDERED: PROTEINASE INHIBITOR IV SCH (16:00)
[2018-10-31] MEDS ORDERED: ALPHA IV SCH (16:00)
[2018-10-31] MEDS: MoRPHine SULFATE IR 15 MG TAB (IMMEDIATE RELEASE) PO PRN (17:20)
[2018-11-01] MEDS: LEVALBUTEROL 1.25MG/0.5ML NEB INH SCH ×3 (02:15→14:05)
[2018-11-01] MEDS: IPRATROPIUM BROMIDE NEB SOLN 0.02% 2.5 ML VIAL INH SCH ×3 (02:15→14:05)
[2018-11-01 05:58] LABS: Hematocrit (blood only) 34.1 % (37-47); Hemoglobin 11.1 g/dL (12.0-16.0); Mean Corpuscular Hgb Conc 32.6 g/dL (32-36); Mean Corpuscular Volume 87.4 fL (80-100); Platelet Count 186 K/uL (130-400); RDW Coefficient of Variation 13.2 % (11.5-14.5); RDW Standard Deviation 42.4 fL (36.4-46.3); White Blood Count 15.97 K/uL (4.8-10.8)
[2018-11-01 06:16] LABS: BUN Creatinine Ratio 21.4 (10-20); Creatinine Clr Calc Pharmacy 57.7 ml/min; Est GFR (African American) 73.4; Est GFR (Non-African American) 63.3; Potassium 4.5 mmol/L (3.5-5.1)
[2018-11-01] MEDS: BUDESONIDE 0.5 MG/2 ML VIAL (PULMICORT) INH SCH (07:01)
[2018-11-01] MEDS: INSULIN ASPART 100 UNITS/ML 3 ML PEN SC SCH ×2 (08:09→12:20)
[2018-11-01] MEDS: methylPREDNISolone 40 MG in SYRINGE 0 ML IV SCH (08:09)
[2018-11-01] MEDS: ASPIRIN 81 MG ECTAB PO SCH (08:10)
[2018-11-01] MEDS: INSULIN GLARGINE SOLOSTAR 100 UNITS/ML 3 ML PEN SC SCH (08:10)
[2018-11-01] MEDS: MoRPHine SULFATE CR 15 MG TABCR PO SCH (08:12)
[2018-11-01] MEDS ORDERED: FLUTICASONE/UMECLIDIN/VILANTER INH SCH (09:00)
[2018-11-01] MEDS: ATORVASTATIN 10 MG TAB PO SCH (09:40)
[2018-11-01] MEDS: CHOLECALCIFEROL 1,000 UNITS TAB PO SCH (09:40)
[2018-11-01] MEDS: CYANOCOBALAMIN 500 MCG TABLET (VITAMIN B-12) PO SCH (09:40)
[2018-11-01] MEDS: CITALOPRAM 40 MG TAB PO SCH (09:40)
[2018-11-01] MEDS: PANTOprazole 40 MG TAB PO SCH (09:40)
[2018-11-01] MEDS: CALCIUM 600MG + VIT D 400 IU TAB PO SCH (09:40)
[2018-11-01] MEDS ORDERED: ALPHA IV SCH (13:00)
[2018-11-01] MEDS ORDERED: PROTEINASE INHIBITOR IV SCH (13:00)
--- NOTE | 2018-11-01 13:44 | Hospitalist Progress Note ---
Date of Service November 01, 2018 Assessment & Plan (1) Chronic respiratory failure with hypoxia: (2) COPD exacerbation: This is a 63 yo F with a PMH of chronic respiratory failure in setting of COPD (on 4L NC), fipbf-3-pwwxxzptqnq deficiency, DM II, depression, GERD and other medical problems below who presents as a direct admission from pulmonary clinic with chronic respiratory failure with hypoxia and COPD exacerbation. Shortness of breath secondary to COPD exacerbation alpha-1 antitrypsin deficiency Chronic hypoxic respiratory failure -Patient has been following with [facility] ([facility]) for lung transplant evaluation -nebulizers, and solumedrol for COPD exacerbation; as of 10/31/18 reducing the solumedrol doing. have changed from 40 mg IV q8 hours to q12 hours -continue home Trelegy and Pulmicort -no evidence of pneumonia at this time, CXR with no infiltrates and procalcitonin negative -monitor without antibiotics for now (3) Dsdhy-5-nijqofohjgr deficiency: -on prolastin infusions -10/31/18 Patient is awaiting for to bring in home supply of Prolastin-C for infusion (4) Coronary artery disease: History of non-obstructive moderate single vessel disease - Cardiac catheterization report summary [facility] August 18, 2018 (RHC: PA 34/16 (mean of 25), PCWP 19 mm Hg, PA Sat 73%, CO/CI 5.6/3.1 LM: no disease. LAD: medium caliber, tortuous, no disease. LCx: tortuous, gives off 2 OMs, no disease. RCA: large, dominant, with a very focal 30% proximal lesion and a focal 40% eccentric lesion at the origin of the acute marginal branch) - patient follows with outpatient fruit and vegetable classer Dr. Whiteside who on his 09/22/18 clinic who recommended patient be on statin Small patent foramen ovale with moderate right to left shunt. -2D echocardiogram report August 28, 2018: The left ventricular cavity size is normal. The LV wall thickness is borderline increased (concentric). The left ventricular wall motion is normal. The qualitative LV ejection fraction is 65-69% (normal). The left ventricular diastolic function is mildly abnormal (grade I). There is no significant valvular disease There is an atrial septal aneurysm. There is a small patent foramen ovale. There is moderate right to left shunt through the patent foramen ovale at rest by saline contrast injection. -patient follows with outpatient fruit and vegetable classer Dr. Whiteside who on his 09/22/18 clinic note reviewed patients cardiac cath records from [facility] and recommended to continue low-dose aspirin therapy Moderate right internal carotid artery stenosis - outpatient carotid duplex planned August 2019 (5) Diabetes type 2, controlled: A1c of 6.1 in May 2018 -Hold home agents -Basal/bolus insulin per protocol while in-patient -BSG AC HS (6) Depression: Continue Celexa (7) Chronic pain syndrome: Continue Morphine 30mg ER Q12H and Morphine 15mg IR Q6H PRN for ha akthrough pain (8) GERD (gastroesophageal reflux disease): Continue Protonix, Zantac DVT Ppx: SQ heparin Code status: FULL code but not interested in skilled nursing mechanical ventilation, per discussion PCP: Cate Results & Data Vital Signs (Past 12 Hours) Vital Signs Temp Pulse Resp BP Pulse Ox 11/01/18 11:19 37.0 C 78 22 132/95 94 11/01/18 08:00 91 H 11/01/18 07:01 67 16 95 11/01/18 06:55 36.7 C 64 20 148/53 H 93 11/01/18 04:44 36.9 C 71 20 149/58 H 94 Laboratory Results Short CBC 11/01/18 Range/Units 05:35 WBC 15.97 H (4.8-10.8) K/uL Hgb 11.1 L (12.0-16.0) g/dL Hct 34.1 L (37-47) % Plt Count 186 (130-400) K/uL BMP 11/01/18 05:35 Sodium 141 Potassium 4.5 Chloride 109 H Carbon Dioxide 26 BUN 20 H D Creatinine 0.95 Glucose 174 H Calcium 9.0 Medications Administered Current Inpatient Medications Acetaminophen (Tylenol) 650 mg PO Q4H PRN PRN Reason: Pain or Fever Stop: 11/29/18 15:00 Albuterol (Ventolin Hfa) 2 puffs INH Q4H PRN PRN Reason: Wheezing Stop: 11/29/18 15:39 Aspirin (Ecotrin Ectab) 81 mg PO DAILY ANIVAL Stop: 11/30/18 08:59 Last Admin: 11/01/18 08:10 Dose: 81 mg Documented by: Atorvastatin Calcium (Lipitor) 10 mg PO DAILY ANIVAL Stop: 11/30/18 08:59 Last Admin: 11/01/18 09:40 Dose: 10 mg Documented by: Budesonide (Pulmicort Respules) 0.5 mg INH DAILY ANVIAL Stop: 11/30/18 08:59 Last Admin: 11/01/18 07:01 Dose: 0.5 mg Documented by: Citalopram Hydrobromide (Celexa) 40 mg PO DAILY ANIVAL Stop: 11/30/18 08:59 Last Admin: 11/01/18 09:40 Dose: 40 mg Documented by: Cyanocobalamin (Vitamin B-12) 1,000 mcg PO DAILY ANIVAL Stop: 11/30/18 08:59 Last Admin: 11/01/18 09:40 Dose: 1,000 mcg Documented by: Dextrose (Dextrose 50%) 25 - 50 ml IV UD PRN; Protocol PRN Reason: Hypoglycemia Protocol Stop: 11/29/18 15:56 Fluticasone/Umeclidinium/Vilanterol (Trelegy Ellipta 100-62.5-25) 1 ea INH DAILY ANIVAL Stop: 12/01/18 08:59 Last Admin: 11/01/18 09:40 Dose: 1 ea Documented by: Glucagon (Glucagen) 1 mg SQ UD PRN; Protocol PRN Reason: Hypoglycemia Protocol Stop: 11/29/18 15:56 Glucose (Dex4 Glucose) 4 - 8 tabs PO UD PRN; Protocol PRN Reason: Hypoglycemia Protocol Stop: 11/29/18 15:56 Glucose (Glucose 40%) 15 - 30 gm PO UD PRN; Protocol PRN Reason: Hypoglycemia Protocol Stop: 11/29/18 15:56 Heparin Sodium (Porcine) (Heparin Sod 100 Unit/Ml Flush) 5 ml FLUSH PRN PRN PRN Reason: Flush Stop: 11/30/18 01:14 Methylprednisolone 40 mg/ (Syringe) 0.64 mls @ 1.5 mls/min IV Q12H ANIVAL Stop: 11/30/18 20:59 Last Admin: 11/01/18 08:09 Dose: 1.5 mls/min Documented by: Alpha-1 Proteinase Inhibitor ( (Human) 4,690 mg/ EMPTY BAG) 80 mls @ 6.2 mls/min IV We@1300 ANIVAL Stop: 12/01/18 12:59 Last Infusion: 11/01/18 13:43 Dose: Infused Documented by: Ibuprofen (Motrin) 600 mg PO QID PRN PRN Reason: Pain Stop: 11/29/18 15:39 Insulin Aspart (Novolog Flexpen) 0 units SC ACHS [facility] Stop: 11/29/18 16:29 Last Admin: 11/01/18 12:20 Dose: 9 units Documented by: Insulin Glargine (Lantus Solostar Pen) 0 units SC BID [facility]; Protocol Stop: 11/29/18 20:59 Last Admin: 11/01/18 08:10 Dose: 7 units Documented by: Ipratropium [place] (Atrovent 0.02% 0.5mg/2.5ml) 0.5 mg INH Q6R [facility] Stop: 11/29/18 19:59 Last Admin: 11/01/18 07:01 Dose: 0.5 mg Documented by: Levalbuterol HCl (Xopenex 1.25mg/0.5ml Neb) 1.25 mg INH Q6R ANIVAL Stop: 11/29/18 19:59 Last Admin: 11/01/18 07:01 Dose: 1.25 mg Documented by: Levalbuterol HCl (Xopenex 1.25mg/3ml Neb) 1.25 mg INH Q4H PRN PRN Reason: Wheezing Stop: 11/29/18 15:39 Miscellaneous (Carbohydrates For Hypoglycemia) 15 - 30 gm PO UD PRN PRN Reason: Hypoglycemia Treatment Stop: 11/29/18 15:56 Morphine Sulfate (Morphine Sulfate Ir) 15 mg PO Q6H PRN PRN Reason: Pain Stop: 11/13/18 15:39 Last Admin: 10/31/18 17:20 Dose: 15 mg Documented by: Morphine Sulfate (Ms Contin) 30 mg PO Q12 [facility] Stop: 11/13/18 20:59 Last Admin: 11/01/18 08:12 Dose: 30 mg Documented by: Multivitamins/Minerals (Caltrate Plus) 1 tab PO DAILY [facility] Stop: 11/30/18 08:59 Last Admin: 11/01/18 09:40 Dose: 1 tab Documented by: Ondansetron HCl (Zofran) 4 mg IV Q6H PRN PRN Reason: Nausea Stop: 11/29/18 15:00 Pantoprazole Sodium (Protonix) 40 mg PO DAILY ANIVAL Stop: 11/30/18 08:59 Last Admin: 11/01/18 09:40 Dose: 40 mg Documented by: Polyethylene Glycol (Miralax Powder Packet) 17 gm PO DAILY PRN PRN Reason: Constipation Stop: 11/29/18 15:00 Polyethylene Glycol (Miralax Powder Packet) 17 gm PO DAILY PRN PRN Reason: Shortness Of Breath Or Wheezing Stop: 11/29/18 15:39 Ranitidine HCl (Zantac) 300 mg PO BID ANIVAL Stop: 11/29/18 20:59 Last Admin: 11/01/18 08:10 Dose: 300 mg Documented by: Vitamin D (Vitamin D3) 1,000 units PO DAILY ANIVAL Stop: 11/30/18 08:59 Last Admin: 11/01/18 09:40 Dose: 1,000 units Documented by:
--- NOTE | 2018-11-01 16:05 | Discharge Summary ---
Date of Service November 01, 2018 Admission HPI Per Admitting Provider This is a 63 yo F with a PMH of chronic respiratory failure in setting of COPD (on 4L NC), folov-[id number] deficiency, DM II, depression, GERD and other medical problems below who presents as a direct admission from pulmonary clinic with COPD exacerbation. Patient was seen in pulmonary clinic 2 weeks ago with increased shortness of breath and was given 125mg IV Solumedrol, steroid dose pack and Augmentin. Patient was seen again in clinic today by Ines Kemp was found to have difficulty breathing and diffuse wheezing. Was sent as a direct admission for further treatment of COPD exacerbation. Endorses chills, wheezing and dyspnea on exertion for the last 4 days. Has a nonproductive cough. Denies fever, lightheadedness, headache, chest pain, palpitations, hemoptysis, abdominal pain, nausea, vomiting, dysuria, diarrhea or constipation. Is followed by [facility] transplant team and has appointment on November 23 to find out if she was approved for lung transplant or not. Recently underwent cardiac catheterization in July 2018 at [facility] as part of transplant work up and was found to have nonobstructive coronary artery disease. Was recently started on baby aspirin and statin, per Dr. Whiteside. Receives Prolastin-C infusion every week for alpha-1 antitrypsin deficiency and is due tomorrow. Admission Exam Per Admitting Provider General Appearance: WD/WN, no apparent distress, becomes short of breath when speaking Head: normocephalic, atraumatic Eyes: normal inspection, PERRL, EOMI ENT: hearing grossly normal, pharynx normal (moist mucous membranes) Neck: supple, no JVD, no adenopathy Respiratory/Chest: Poor air movement bilaterally. Diffue expiratory wheezing. No rales or rhonci. Cardiovascular: regular rate, rhythm, no murmur, normal peripheral pulses, no BLE edema Abdomen/GI: normal bowel sounds, soft, non-tender to palpation Extremities/Musculoskelatal: normal inspection, no calf tenderness, normal capillary refill, no pedal edema Neurologic/Psych: alert, normal mood/affect, oriented x 3 Skin: normal color, warm/dry Principal Diagnosis COPD exacerbation Chronic respiratory failure Discharge Data Allergies Allergy/AdvReac Type Severity Reaction Status Date / Time sulfamethoxazole Allergy Mild RASH Verified 11/08/18 13:05 trimethoprim Allergy Mild RASH Verified 11/08/18 13:05 Bactrim Allergy Unknown RASH Verified 07/01/17 06:46 Ordered Studies XR chest 2V routine CLINICAL HISTORY: COPD exacerbation COMPARISON STUDY: 10/13/2018 FINDINGS: The cardiac and distal contours remain stable. There is radiographic evidence of emphysema. There is stable interstitial thickening. There is a left subclavian A-Port catheter. There is no failure. There are no pleural effusions. Postsurgical changes are present within the cervical spine.[ IMPRESSION: Emphysema with chronic interstitial thickening. No acute findings. Hospital Course (1) Chronic respiratory failure with hypoxia: (2) COPD exacerbation: (3) Yhiqq-3-ofullexosgr deficiency: (4) Coronary artery disease: (5) Diabetes type 2, controlled: (6) Depression: (7) Chronic pain syndrome: 63-year-old female with chronic respiratory failure with hypoxia secondary to COPD presented with shortness of breath and wheezing. She was admitted to the hospitalist service for COPD exacerbation. IV Solu-Medrol was started along with scheduled duo nebs. Blood cultures were obtained and negative. No antibiotics were started. She was continued on her home inhalers including Trelegy and Pulmicort. As she has a history of alpha-1 antitrypsin deficiency she received her Prolastin C infusion while hospitalized, which is a weekly infusion for her. She did well with this with no issues. She continued to improve and at time of discharge a wall-fq-caoo examination was performed revealing a hemodynamically stable and afebrile patient in no acute distress. She was breathing at her baseline, ambulating at her baseline and tolerating p.o. Exam revealed clear lungs to auscultation with no evidence of significant wheezing, heart exam was normal and physical exam was otherwise unremarkable. She was sent home in stable condition with prednisone taper recommended and close primary care follow-up. Total Time Total Time Spent Total Time Spent (In Minutes): 60 Total Time Includes: Examination of the Patient, Discharge Planning, Medication Reconciliation and Communication With Other Providers Discharge Plan Discharge Items Patient Disposition: Home - Home Health Services Reason For Visit: COPD EXACERBATION Discharge Diagnosis: COPD exacerbation Discharge Goals: Improve disease control Activity: Resume your previous activity Non-emergency contact: Primary Care Provider Call non-emergency contact if: you have any medication questions, your symptoms worsen, your pain is worsening and you have a fever Follow-up/Referrals: August Esposito MD [Primary Care Provider] - Diet: Carb Consistent or DM2 Addtl Provider Instructions: Please take all medications as instructed on discharge list below. PREDNISONE TAPER: Start with 40mg x 2 days, then 30mg x 2 days, then 20mg x 2 days, then 10mg x 2 days, then stop Please ensure a close (1 week) follow-up with your primary care provider to ensure you are still doing well post-discharge. Please follow-up with Pulmonary provider non-urgently. It is recommended to resume pulmonary rehabilitation after one week at home, or when you feel well enough to participate. It was a pleasure taking care of you! Please call if you have any questions or problems. You can reach a [facility] hospitalist on duty at [facility] 24 hours a day by calling [phone]. Take care of yourself. Letiita Perera, [facility] Hospitalist Prescriptions: New prednisone 10 mg tablet 10 mg PO UD Qty: 20 RF: 0 Continued ibuprofen 600 mg Tablet 600 mg PO QID PRN (Reason: Pain) RF: 0 morphine 30 mg Tablet Extended Release 1 tab PO Q12H RF: 0 metformin 500 mg tablet 1 tab PO BID RF: 0 citalopram 40 mg tablet 1 tab PO QAM RF: 0 ranitidine HCl 300 mg tablet 1 tab PO BID RF: 0 pantoprazole 40 mg tablet,delayed release (DR/EC) 1 tab PO QAM RF: 0 levalbuterol HCl 1.25 mg/3 mL solution for nebulization 1.25 mg Inhalation Q6H PRN (Reason: Wheezing) RF: 0 insulin glargine 100 unit/mL (3 mL) insulin pen 4 units subcut HS RF: 0 Trelegy Ellipta 100-62.5-25 mcg Blister With Device 1 inh INHALATION QAM RF: 0 alpha-1 proteinase inhib.(hum) 1,000 mg (+/-)/20 mL solution 1,000 mg IV WK RF: 0 polyethylene glycol 3350 [Miralax] 17 gram Powder In Packet 17 g PO DAILY PRN (Reason: Constipation) RF: 0 cyanocobalamin (vitamin B-12) [Vitamin B-12] 1,000 mcg Tablet 1,000 mcg PO QAM RF: 0 aspirin [Aspirin Low Dose] 81 mg Tablet,Delayed Release (Dr/Ec) 81 mg PO QAM RF: 0 budesonide [Pulmicort] 0.5 mg/2 mL Suspension For Nebulization 2 ml INHALATION DAILY RF: 0 albuterol sulfate [ProAir HFA] 90 mcg/actuation Hfa Aerosol Inhaler 2 puff INHALATION Q4H PRN (Reason: Wheezing) RF: 0 cholecalciferol (vitamin D3) [Vitamin D3] 1,000 unit Capsule 1,000 unit PO QAM RF: 0 calcium carbonate-vitamin D3 [Calcium 500 + D (D3)] 500 mg(1,250mg) -125 unit Tablet 1 tab PO QAM RF: 0 atorvastatin 10 mg Tablet 10 mg PO QAM RF: 0 morphine 15 mg Tablet 15 mg PO Q6H PRN (Reason: Pain) RF: 0 Novolog Flexpen U-100 Insulin 100 unit/mL (3 mL) Insulin Pen 5 unit SUBCUT TIDM RF: 0 Stand-Alone Forms: [facility] Discharge Orders: Discharge Order (Routine); Ordered 11/01/18 Ordered By: Letitia Perera Admission Data Admit Date/Time: 10/30/18 14:37 Attending Provider: Letitia Perera Admit Provider: Altaf Gomez Primary Care Provider: August Esposito Other Providers: Teresa Moses Service: Telemetry Other Interventions: Discharge Summary Assessment (RN) Last Done: 11/01/18 16:25 DC Date/Time DO NOT enter until pt leaves facility: 11/01/18 17:01
[2018-11-01 16:10] VITALS: BP 148/76; PULSE 88; TEMP 98.2; O2SAT 93
== END 2018-11-01 17:01 | disposition home health service (06) | DRG 191 ==
LOC: 2E 14:37 → SUATTDRO 14:37
DX: J96.11 Chronic respiratory failure with hypoxia; Z99.81 Dependence on supplemental oxygen; Z76.82 Awaiting organ transplant status; Z79.52 Long term (current) use of systemic steroids; Z79.51 Long term (current) use of inhaled steroids; F32.9 Major depressive disorder, single episode, unspecified; E11.9 Type 2 diabetes mellitus without complications; Z79.4 Long term (current) use of insulin; E88.01 Alpha-1-antitrypsin deficiency; Q21.1 Atrial septal defect; J44.1 Chronic obstructive pulmonary disease with (acute) exacerbation; Z79.899 Other long term (current) drug therapy; K21.9 Gastro-esophageal reflux disease without esophagitis; Z88.2 Allergy status to sulfonamides; Z79.82 Long term (current) use of aspirin; I65.21 Occlusion and stenosis of right carotid artery; I25.10 Atherosclerotic heart disease of native coronary artery without angina pectoris; Z79.891 Long term (current) use of opiate analgesic; G89.4 Chronic pain syndrome; Z87.891 Personal history of nicotine dependence

== ENCOUNTER 2020-07-28 13:26 | Observation (INO) ==
[2020-07-28] MEDS ORDERED: ALBUTEROL HFA 8 GM INHALER INH ONE (16:17)
[2020-07-28] MEDS ORDERED: ACETAMINOPHEN 500 MG TAB PO STA (16:17)
[2020-07-28] MEDS ORDERED: CEFEPIME 2,000 MG/20 ML VIAL IV STA (16:17)
[2020-07-28] MEDS ORDERED: MoRPHine SULFATE 4 MG/ML 1 ML CARP\\VIAL IV STA (16:26)
--- NOTE | 2020-07-28 16:26 | Emergency Department Note ---
Impression & Plan Hypoxia, Dyspnea, Hypomagnesemia, History of lung transplant ED Provider Note NAME: CLAUDE SERRANO AGE: 65 SEX: F : 1955 ARRIVES VIA: Walk-In INFORMANT: [Patient][family] ED PROVIDER(S): [Luis Alfredo Fuentes MD] CHIEF COMPLAINT: Illness HISTORY OF PRESENT ILLNESS: The patient is a 65-year-old female who presents to the ER with complaints of 2 to 3 days of chills, chest congestion and cough. At times, she has yellow sputum production. She does feel more short of breath especially with exertion. She has heard herself wheezing. 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 She is immunocompromised. Patient states that she spoke to the transplant center in [place] and was referred to the ED for a work-up. The patient also complains of some left posterior lung pain. The pain is an 8/10. Nothing makes it better or worse. There has been no Covid exposures and she has been vaccinated for Covid x2. REVIEW OF SYSTEMS: See HPI for pertinent positives and negatives. A total of ten systems were reviewed and were otherwise negative. PMHx/PSHx: See Below SOCIAL HISTORY: See Below. PHYSICAL EXAM: GENERAL: Patient is in no acute distress. She is shivering. HEENT: No acute trauma, normocephalic atraumatic, mucous membranes moist, no nasal congestion, no scleral icterus. NECK: No stridor, no adenopathy, no meningismus, trachea is midline. LUNGS: Clear to auscultation bilaterally, no wheeze, no rhonchi. Breath sounds do seem somewhat diminished on the right when compared to the left. HEART: Without murmurs gallops or rubs, regular rate and rhythm. ABDOMEN: Soft, nontender, bowel sounds positive, no hernias, no peritonitis. EXTREMITIES: No cyanosis or edema, full range of motion of all the joints without pain or difficulty, no signs for acute trauma. NEUROLOGIC: Oriented x 3, no acute motor or sensory deficits, no focal weakness. SKIN: No rash, no jaundice, no diaphoresis. DIFFERENTIAL DIAGNOSIS: Sepsis, UTI, pneumonia, metabolic abnormality, electrolyte abnormalities, COVID- 19, influenza, immunocompromise, cardiac sources, cellulitis, UTI, bacteremia, intracerebral event, toxicologic etiology, neurologic event, as well as other pathologies. EMERGENCY DEPARTMENT COURSE/PROCEDURES: ECG: Indication was shortness of breath. The ECG shows a normal sinus rhythm with LVH. The rate is 82. There is some nonspecific ST change. There is some baseline artifact. The QTc is 422. There is no ST elevation, no PVCs. Continuous Cardiac Monitoring: An order was placed for continuous cardiac monitoring. The monitor shows a rate of 87 with normal sinus rhythm. Critical Care Note: I have personally spent 53 minutes of critical care time in the direct management of this patient. This includes bedside care, interpretation of diagnostic studies, and testing, discussion with consultants, patient, and family members, and other required patient management activities. This 53 minutes is in excess of all separately billable procedures. MEDICAL DECISION MAKING: There is no leukocytosis. The patient does have a mild anemia but this is baseline looking back at previous testing. There is a normal platelet count. No coagulopathy. Creatinine is slightly elevated at 1.35. This creatinine value is above baseline for the patient. Lactic acid level is not elevated making severe sepsis less likely. Magnesium was low at 1.6. No worrisome liver enzyme elevation. ECG shows a sinus rhythm, no acute ischemia. Cardiac enzyme testing x1 is not consistent with acute cardiac injury. Urinalysis shows glucose, no infection. Covid and influenza testing returned negative. Chest film did not show CHF or pneumonia. There was no pneumothorax. Chest CT did not show any PE, there was no focal infiltrate. The patient did drop her O2 saturation and required 2 L of oxygen to maintain an adequate value. She received around 750 cc of IV saline for hydration. She was given IV morphine for her left posterior lung pain. She received IV Solu-Medrol for the possibility of a flare of her COPD. She was given IV and oral magnesium for her lower magnesium value. She received IV cefepime as empiric antibiotic coverage. She was given oral Tylenol for her chills. She was given albuterol via MDI and eventually a DuoNeb. She was given her typical nighttime medication of 2 mg of oral Dilaudid. She was given her typical dose of subcu Lantus. The patient presents short of breath. She became hypoxic during her ED stay. I did speak with the transplant center in [place]. The patient is being transferred to their facility for the possibility of early transplant rejection. Patient did consent to the transfer, the paperwork was completed and signed. We await bed assignment in [place]. The patient is currently resting on the stretcher here in the ED. Past Med/Surg History Medical History Sficu-[id number] deficiency Chronic back pain Chronic pain syndrome Chronic respiratory failure with hypoxia 4L home O2 COPD (chronic obstructive pulmonary disease) Coronary artery disease Degenerative disc disease Depression Diabetes type 2, controlled GERD (gastroesophageal reflux disease) H/O lymphoma Heart murmur Hyperlipidemia Pulmonary embolism 2008--reason unknown, no blood thinners Surgical History (Updated 07/28/20 @ 22:16 by Luis Alfredo Fuentes MD) History of bilateral tubal ligation History of bronchoscopy multiple History of colonoscopy History of dilatation and curettage History of fusion of cervical spine normal ROM History of lumbar spinal fusion History of tonsillectomy History of tooth extraction History of total hysterectomy with bilateral salpingo-oophorectomy (BSO) History of vascular access device left chest APort Hx of arthroscopy of right knee Family History Father Family history of diabetes mellitus Sister Family history of diabetes mellitus Other No family history of adverse response to anesthesia Social History Smoking Status: Former smoker Second Hand Exposure: Yes ( smokes/parents smoked); Hx Alcohol Use: No Hx Substance Use: No Preferred Language: Turkish Communication Ability: Effective Neon Sign Maker Required: No Beliefs That Will Affect Care: None Current Living Situation: Spouse Feels Safe at Home: Yes Assistive Devices: Denture - Upper, Glasses and Oxygen - Continuous Allergies Allergies Allergy/AdvReac Type Severity Reaction Status Date / Time No Known Allergies Allergy Unverified 07/28/20 16:24 Home Meds Home Medications Medication Instructions Recorded Confirmed acyclovir 800 mg PO DAILY 07/18/20 07/28/20 amlodipine 5 mg PO DAILY 07/18/20 07/28/20 citalopram 20 mg PO DAILY 07/18/20 07/28/20 hydromorphone 2 mg PO Q12H PRN 07/18/20 07/28/20 hydromorphone 8 mg PO QAM 07/18/20 07/28/20 insulin glargine [Lantus Solostar 12 unit SUBCUT HS 07/18/20 07/28/20 U-100 Insulin] insulin lispro 8 unit SUBCUT AC 07/18/20 07/28/20 pantoprazole 40 mg PO DAILY 07/18/20 07/28/20 potassium chloride 20 meq PO BID 07/18/20 07/28/20 prednisone 5 mg PO DAILY 07/18/20 07/28/20 sulfamethoxazole-trimethoprim 1 tab PO 3XWK 07/18/20 07/28/20 tacrolimus 0.5 mg PO DAILY 07/18/20 07/28/20 magnesium chloride [Mag 64] 64 mg PO BID 07/28/20 07/28/20 Results & Data (ED) Vital Signs Vital Signs - 24 hr 07/28/20 13:29 07/28/20 16:59 07/28/20 17:00 Temperature 36.9 C Temperature Source Temporal Artery Scan Pulse Rate 87 77 81 Pulse Rate [Finger] Pulse Rate from SpO2 Sensor Pulse Rhythm Respiratory Rate 20 21 25 H Respiratory Effort / Characteristics Blood Pressure 127/67 Blood Pressure Mean 87 Pulse Oximetry 98 Oxygen Delivery Method Room Air Oxygen Flow Rate Sepsis Recent Fever Within 48 Hours No Sepsis New/Unexplained Change in Mental Status No Sepsis Action Taken by Nursing No Action Required 07/28/20 17:15 07/28/20 17:30 07/28/20 17:45 Temperature Temperature Source Pulse Rate 79 79 78 Pulse Rate [Finger] Pulse Rate from SpO2 Sensor Pulse Rhythm Respiratory Rate 15 25 H 17 Respiratory Effort / Characteristics Blood Pressure Blood Pressure Mean Pulse Oximetry Oxygen Delivery Method Oxygen Flow Rate Sepsis Recent Fever Within 48 Hours Sepsis New/Unexplained Change in Mental Status Sepsis Action Taken by Nursing 07/28/20 17:52 07/28/20 18:00 07/28/20 18:01 Temperature Temperature Source Pulse Rate 75 87 84 Pulse Rate [Finger] Pulse Rate from SpO2 Sensor 77 87 84 Pulse Rhythm Respiratory Rate 30 H 17 20 Respiratory Effort / Characteristics Blood Pressure 130/75 132/89 Blood Pressure Mean 93 103 Pulse Oximetry 96 99 98 Oxygen Delivery Method Oxygen Flow Rate Sepsis Recent Fever Within 48 Hours Sepsis New/Unexplained Change in Mental Status Sepsis Action Taken by Nursing 07/28/20 18:15 07/28/20 18:16 07/28/20 18:40 Temperature Temperature Source Pulse Rate 77 78 Pulse Rate [Finger] Pulse Rate from SpO2 Sensor 78 78 Pulse Rhythm Respiratory Rate 21 25 H Respiratory Effort / Characteristics Blood Pressure 130/72 131/55 L Blood Pressure Mean 91 80 Pulse Oximetry 98 97 Oxygen Delivery Method Oxygen Flow Rate Sepsis Recent Fever Within 48 Hours Sepsis New/Unexplained Change in Mental Status Sepsis Action Taken by Nursing 07/28/20 18:41 07/28/20 18:45 07/28/20 18:46 Temperature Temperature Source Pulse Rate 88 82 81 Pulse Rate [Finger] Pulse Rate from SpO2 Sensor 82 82 Pulse Rhythm Regular Respiratory Rate 19 31 H 20 Respiratory Effort / Characteristics Blood Pressure 143/61 H Blood Pressure Mean 88 Pulse Oximetry 91 89 L Oxygen Delivery Method Room Air Nasal Cannula Oxygen Flow Rate 0 2 Sepsis Recent Fever Within 48 Hours Sepsis New/Unexplained Change in Mental Status Sepsis Action Taken by Nursing 07/28/20 19:00 07/28/20 19:14 07/28/20 19:16 Temperature Temperature Source Pulse Rate 86 92 H Pulse Rate [Finger] 101 H Pulse Rate from SpO2 Sensor 86 Pulse Rhythm Respiratory Rate 31 H 22 22 Respiratory Effort / Characteristics Short of Breath Blood Pressure 139/61 119/56 L Blood Pressure Mean 87 77 Pulse Oximetry 99 98 100 Oxygen Delivery Method Nasal Cannula Nasal Cannula Oxygen Flow Rate 2 2 Sepsis Recent Fever Within 48 Hours Sepsis New/Unexplained Change in Mental Status Sepsis Action Taken by Nursing 07/28/20 19:31 07/28/20 19:45 07/28/20 20:00 Temperature Temperature Source Pulse Rate 94 H 94 H 91 H Pulse Rate [Finger] Pulse Rate from SpO2 Sensor Pulse Rhythm Respiratory Rate 22 20 20 Respiratory Effort / Characteristics Blood Pressure 124/76 145/60 H 134/71 Blood Pressure Mean 92 88 92 Pulse Oximetry 97 97 97 Oxygen Delivery Method Oxygen Flow Rate Sepsis Recent Fever Within 48 Hours Sepsis New/Unexplained Change in Mental Status Sepsis Action Taken by Nursing 07/28/20 20:15 07/28/20 20:31 07/28/20 20:45 Temperature Temperature Source Pulse Rate 91 H 100 H 96 H Pulse Rate [Finger] Pulse Rate from SpO2 Sensor Pulse Rhythm Respiratory Rate 18 20 18 Respiratory Effort / Characteristics Blood Pressure 129/54 L 133/60 137/66 Blood Pressure Mean 79 84 89 Pulse Oximetry 98 98 98 Oxygen Delivery Method Oxygen Flow Rate Sepsis Recent Fever Within 48 Hours Sepsis New/Unexplained Change in Mental Status Sepsis Action Taken by Nursing 07/28/20 21:00 07/28/20 21:15 07/28/20 21:30 Temperature Temperature Source Pulse Rate 94 H 94 H 94 H Pulse Rate [Finger] Pulse Rate from SpO2 Sensor Pulse Rhythm Respiratory Rate 20 24 24 Respiratory Effort / Characteristics Blood Pressure 142/63 H 142/62 H 144/61 H Blood Pressure Mean 89 88 88 Pulse Oximetry 97 96 96 Oxygen Delivery Method Oxygen Flow Rate Sepsis Recent Fever Within 48 Hours Sepsis New/Unexplained Change in Mental Status Sepsis Action Taken by Nursing 07/28/20 21:45 07/28/20 22:00 Temperature Temperature Source Pulse Rate 91 H 96 H Pulse Rate [Finger] Pulse Rate from SpO2 Sensor Pulse Rhythm Respiratory Rate 24 24 Respiratory Effort / Characteristics Blood Pressure 136/56 L 147/66 H Blood Pressure Mean 82 93 Pulse Oximetry 96 96 Oxygen Delivery Method Oxygen Flow Rate Sepsis Recent Fever Within 48 Hours Sepsis New/Unexplained Change in Mental Status Sepsis Action Taken by [facility] Medications Current Medication List: was personally reviewed by me Laboratory Data Attestation: I reviewed the patient's lab results. Result diagrams: 07/28/20 17:15 07/28/20 17:15 Lab Results 07/28/20 07/28/20 07/28/20 Range/Units 16:50 16:50 17:15 WBC (4.8-10.8) K/uL RBC (4.2-5.4) M/uL Hgb (12.0-16.0) g/dL Hct (37-47) % MCV (80-100) fL MCH (25-34) pg MCHC (32-36) g/dL RDW Std Deviation (36.4-46.3) fL RDW Coeff of Jennie (11.5-14.5) % Plt Count (130-400) K/uL MPV (7.4-10.4) fL Immature Gran % (Auto) % Neut % (Auto) % Lymph % (Auto) % Ralls % (Auto) % Eos % (Auto) % Baso % (Auto) % Neut # (Auto) (1.4-6.5) K/uL Lymph # (Auto) (1.2-3.4) K/uL Ralls # (Auto) (0.11-0.59) K/uL Eos # (Auto) (0-0.5) K/uL Baso # (Auto) (0-0.2) K/uL Immature Gran # (Auto) (0.00-0.02) K/uL Ovalocytes PT (9.0-12.0) Seconds INR (0.9-1.1) APTT (21.0-31.0) Seconds PTT Ratio Sodium 139 (136-145) mmol/L Potassium 4.6 (3.5-5.1) mmol/L Chloride 108 H (98-107) mmol/L Carbon Dioxide 24 (21-32) mmol/L Anion Gap 6.0 (3-11) BUN 23 H (7-18) mg/dl Creatinine 1.35 H (0.6-1.2) mg/dl Est Cr Clr Drug Dosing 37.4 ml/min Est GFR ( Amer) 47.3 Est GFR (Non-Af Amer) 40.8 BUN/Creatinine Ratio 17.0 (10-20) Glucose 220 H (70-99) mg/dl Lactate (0.4-2.0) mmol/L Calcium 8.7 (8.5-10.1) mg/dl Magnesium 1.6 L (1.8-2.4) mg/dl Total Bilirubin 0.6 (0.2-1) mg/dl AST 33 (15-37) U/L ALT 31 (12-78) U/L Alkaline Phosphatase 67 (45-117) U/L Troponin I 0.029 (0-0.045) ng/ml Total Protein 6.2 L (6.4-8.2) gm/dl Albumin 3.4 (3.4-5.0) gm/dl Globulin 2.8 (2.5-4.0) gm/dl Albumin/Globulin Ratio 1.2 (0.9-2) Procalcitonin (0-0.5) ng/ml Urine Color Urine Appearance (Clear) Urine pH (4.5-7.5) Ur Specific Freeman (1.000-1.030) Urine Protein (Negative) Urine Glucose (UA) (Negative) Urine Ketones (Negative) Urine Blood (Negative) Urine Nitrite (Negative) Urine Bilirubin (Negative) Urine Urobilinogen (Negative) Ur Leukocyte Esterase (Negative) Urine WBC (Auto) (0-5) /hpf Urine RBC (Auto) (0-4) /hpf U Hyaline Cast (Auto) (0-5) /lpf U Epithel Cells (Auto) (0-5) /lpf Urine Bacteria (Auto) (Negative) Urine Crystals Calcium Oxalate Crystal (None Prsent) COVID-19 Eval Order CovFluRsv at [facility] SARS-CoV-2 (PCR) NEGATIVE (Negative) Influenza Type A (PCR) Negative (Neg) Influenza Type B (PCR) Negative (Neg) RSV (RT-PCR) Negative (Neg) 07/28/20 07/28/20 07/28/20 Range/Units 17:15 17:15 17:15 WBC 5.95 (4.8-10.8) K/uL RBC 3.43 L (4.2-5.4) M/uL Hgb 10.9 L (12.0-16.0) g/dL Hct 31.4 L (37-47) % MCV 91.5 (80-100) fL MCH 31.8 (25-34) pg MCHC 34.7 (32-36) g/dL RDW Std Deviation 50.6 H (36.4-46.3) fL RDW Coeff of Jennie 15.0 H (11.5-14.5) % Plt Count 176 (130-400) K/uL MPV 9.2 (7.4-10.4) fL Immature Gran % (Auto) 6.4 % Neut % (Auto) 80.2 % Lymph % (Auto) 11.1 % Ralls % (Auto) 1.8 % Eos % (Auto) 0.3 % Baso % (Auto) 0.2 % Neut # (Auto) 4.77 (1.4-6.5) K/uL Lymph # (Auto) 0.66 L (1.2-3.4) K/uL Ralls # (Auto) 0.11 (0.11-0.59) K/uL Eos # (Auto) 0.02 (0-0.5) K/uL Baso # (Auto) 0.01 (0-0.2) K/uL Immature Gran # (Auto) 0.38 H (0.00-0.02) K/uL Ovalocytes 1+ PT 10.0 (9.0-12.0) Seconds INR 1.0 (0.9-1.1) APTT 20.4 L (21.0-31.0) Seconds PTT Ratio 0.8 Sodium (136-145) mmol/L Potassium (3.5-5.1) mmol/L Chloride (98-107) mmol/L Carbon Dioxide (21-32) mmol/L Anion Gap (3-11) BUN (7-18) mg/dl Creatinine (0.6-1.2) mg/dl Est Cr Clr Drug Dosing ml/min Est GFR ( Amer) Est GFR (Non-Af Amer) BUN/Creatinine Ratio (10-20) Glucose (70-99) mg/dl Lactate (0.4-2.0) mmol/L Calcium (8.5-10.1) mg/dl Magnesium (1.8-2.4) mg/dl Total Bilirubin (0.2-1) mg/dl AST (15-37) U/L ALT (12-78) U/L Alkaline Phosphatase (45-117) U/L Troponin I (0-0.045) ng/ml Total Protein (6.4-8.2) gm/dl Albumin (3.4-5.0) gm/dl Globulin (2.5-4.0) gm/dl Albumin/Globulin Ratio (0.9-2) Procalcitonin < 0.05 (0-0.5) ng/ml Urine Color Urine Appearance (Clear) Urine pH (4.5-7.5) Ur Specific Freeman (1.000-1.030) Urine Protein (Negative) Urine Glucose (UA) (Negative) Urine Ketones (Negative) Urine Blood (Negative) Urine Nitrite (Negative) Urine Bilirubin (Negative) Urine Urobilinogen (Negative) Ur Leukocyte Esterase (Negative) Urine WBC (Auto) (0-5) /hpf Urine RBC (Auto) (0-4) /hpf U Hyaline Cast (Auto) (0-5) /lpf U Epithel Cells (Auto) (0-5) /lpf Urine Bacteria (Auto) (Negative) Urine Crystals Calcium Oxalate Crystal (None Prsent) COVID-19 Eval Order SARS-CoV-2 (PCR) (Negative) Influenza Type A (PCR) (Neg) Influenza Type B (PCR) (Neg) RSV (RT-PCR) (Neg) 07/28/20 07/28/20 Range/Units 17:15 19:30 WBC (4.8-10.8) K/uL RBC (4.2-5.4) M/uL Hgb (12.0-16.0) g/dL Hct (37-47) % MCV (80-100) fL MCH (25-34) pg MCHC (32-36) g/dL RDW Std Deviation (36.4-46.3) fL RDW Coeff of Jennie (11.5-14.5) % Plt Count (130-400) K/uL MPV (7.4-10.4) fL Immature Gran % (Auto) % Neut % (Auto) % Lymph % (Auto) % Ralls % (Auto) % Eos % (Auto) % Baso % (Auto) % Neut # (Auto) (1.4-6.5) K/uL Lymph # (Auto) (1.2-3.4) K/uL Ralls # (Auto) (0.11-0.59) K/uL Eos # (Auto) (0-0.5) K/uL Baso # (Auto) (0-0.2) K/uL Immature Gran # (Auto) (0.00-0.02) K/uL Ovalocytes PT (9.0-12.0) Seconds INR (0.9-1.1) APTT (21.0-31.0) Seconds PTT Ratio Sodium (136-145) mmol/L Potassium (3.5-5.1) mmol/L Chloride (98-107) mmol/L Carbon Dioxide (21-32) mmol/L Anion Gap (3-11) BUN (7-18) mg/dl Creatinine (0.6-1.2) mg/dl Est Cr Clr Drug Dosing ml/min Est GFR ( Amer) Est GFR (Non-Af Amer) BUN/Creatinine Ratio (10-20) Glucose (70-99) mg/dl Lactate 1.5 (0.4-2.0) mmol/L Calcium (8.5-10.1) mg/dl Magnesium (1.8-2.4) mg/dl Total Bilirubin (0.2-1) mg/dl AST (15-37) U/L ALT (12-78) U/L Alkaline Phosphatase (45-117) U/L Troponin I (0-0.045) ng/ml Total Protein (6.4-8.2) gm/dl Albumin (3.4-5.0) gm/dl Globulin (2.5-4.0) gm/dl Albumin/Globulin Ratio (0.9-2) Procalcitonin (0-0.5) ng/ml Urine Color Yellow Urine Appearance Clear (Clear) Urine pH 5.0 (4.5-7.5) Ur Specific Freeman 1.032 H (1.000-1.030) Urine Protein Trace H (Negative) Urine Glucose (UA) 3+ H (Negative) Urine Ketones Negative (Negative) Urine Blood Negative (Negative) Urine Nitrite Negative (Negative) Urine Bilirubin Negative (Negative) Urine Urobilinogen Negative (Negative) Ur Leukocyte Esterase Negative (Negative) Urine WBC (Auto) 1-5 (0-5) /hpf Urine RBC (Auto) 0-4 (0-4) /hpf U Hyaline Cast (Auto) 1-5 (0-5) /lpf U Epithel Cells (Auto) 5-10 H (0-5) /lpf Urine Bacteria (Auto) Negative (Negative) Urine Crystals Not Reportable Calcium Oxalate Crystal Present A (None Prsent) COVID-19 Eval Order SARS-CoV-2 (PCR) (Negative) Influenza Type A (PCR) (Neg) Influenza Type B (PCR) (Neg) RSV (RT-PCR) (Neg) Administered Medications Discontinued Medications Acetaminophen (Acetaminophen 500 Mg Tab) 1,000 mg PO NOW STA Stop: 07/28/20 16:18 Last Admin: 07/28/20 17:54 Dose: 1,000 mg Documented by: [id number] Albuterol (Albuterol Hfa 8 Gm Inhaler) 3 puffs INH NOW ONE Stop: 07/28/20 16:18 Last Admin: 07/28/20 17:55 Dose: 3 puffs Documented by: [id number] Albuterol (Albut/Ipratrop 3mg/0.5mg Neb 3 Ml Vial) 3 ml NEB NOW STA Stop: 07/28/20 18:59 Last Admin: 07/28/20 19:12 Dose: 3 ml Documented by: [id number] Hydromorphone HCl (Hydromorphone Hcl 2 Mg Tab) 2 mg PO NOW STA Stop: 07/28/20 21:23 Last Admin: 07/28/20 21:48 Dose: 2 mg Documented by: [id number] Sodium Chloride (Nss 1000ml) 1,000 mls @ 999 mls/hr IV .Q1H1M ANIVAL Stop: 07/28/20 17:30 Last Infusion: 07/28/20 19:49 Dose: 0 mls/hr Documented by: [id number] Admin: 07/28/20 17:55 Dose: 999 mls/hr Documented by: [id number] Cefepime HCl (Maxipime) 2,000 mg in 20 mls @ 5 mls/min IV NOW STA; Protocol Stop: 07/28/20 16:20 Last Admin: 07/28/20 17:54 Dose: 5 mls/min Documented by: [id number] Magnesium Sulfate/Dextrose (Magnesium Sulfate / D5w) 1 gm in 100 mls @ 100 mls/hr IV NOW STA Stop: 07/28/20 18:49 Last Infusion: 07/28/20 19:49 Dose: 0 mls/hr Documented by: [id number] Admin: 07/28/20 18:01 Dose: 100 mls/hr Documented by: [id number] Methylprednisolone 60 mg/ (Syringe) 1.96 mls @ 1.5 mls/min IV NOW STA Stop: 07/28/20 18:59 Last Admin: 07/28/20 19:42 Dose: Not Given Documented by: [id number] Insulin Glargine (Lantus Per Unit Charge) 12 units SQ NOW STA Stop: 07/28/20 21:23 Last Admin: 07/28/20 21:49 Dose: 12 units Documented by: [id number] Cosigned by: [id number] Ioversol (Optiray 320 125ml) 109 ml IV ONCE ONE Stop: 07/28/20 18:34 Last Admin: 07/28/20 18:33 Dose: 109 ml Documented by: [id number] Magnesium Oxide (Magnesium Oxide 400 Mg Tab) 400 mg PO NOW STA Stop: 07/28/20 17:51 Last Admin: 07/28/20 18:01 Dose: 400 mg Documented by: [id number] Methylprednisolone (Methylprednisolone 125 Mg/2 Ml Vial) Confirm Administered Dose 125 mg .ROUTE .STK-MED ONE Stop: 07/28/20 19:32 Last Admin: 07/28/20 19:42 Dose: 60 mg Documented by: [id number] Morphine Sulfate (Morphine Sulfate 4 Mg/Ml 1 Ml Carp\Vial) 4 mg IV NOW STA Stop: 07/28/20 16:27 Last Admin: 07/28/20 17:55 Dose: 4 mg Documented by: [id number] Imaging Data Radiologist's Impression: XR chest 1V portable HISTORY: 65 years-old Female SEPSIS acute sepsis COMPARISON: Chest radiographs 02/27/2019 TECHNIQUE: Portable AP view the chest FINDINGS: Cardiomediastinal and hilar silhouettes are within normal limits. Left subclavian [id number] catheter. Surgical clips project of the left mediastinal border. Calcified plaque of the thoracic aorta. No pneumothorax, pleural effusion, airspace consolidation or overt pulmonary edema. Degenerative changes of the shoulders and spine. Cervical spinal fusion hardware. IMPRESSION: No acute process. CT ANGIOGRAM OF THE CHEST CLINICAL HISTORY: Dyspnea. 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 COMPARISON STUDY: Chest x-ray dated 07/28/2020. Chest CT dated 02/16/2018. TECHNIQUE: Following the IV administration of 109 cc of Optiray 320, CT angiogram of the chest was performed from the upper abdomen to the thoracic inlet utilizing the pulmonary embolus protocol. Images are reviewed in the axial, sagittal, and coronal planes. 3-D MIPS images are created and assessed. IV contrast was administered without complication. A dose lowering technique was utilized adhering to the principles of ALARA. CT DOSE: 245.41 mGy.cm FINDINGS: Thyroid: The thyroid gland is enlarged and heterogeneous. Low-attenuation nodules measure up to 1 cm. These are unchanged dating back to 2018. Thoracic aorta: There is advanced atherosclerotic calcification of the thoracic aorta, which is normal in caliber and demonstrates standard 3-vessel arch anatomy. No dissection is seen. Pulmonary vasculature: The pulmonary trunk is normal in caliber. There are no filling defects identified in main, lobar, or segmental pulmonary branches to suggest pulmonary embolus. Heart: A left subclavian central venous infusion port is in place. The heart is. Normal in size noting trace pericardial effusion. The coronary arteries are densely calcified. Lungs and pleural spaces: Advanced emphysematous change is seen throughout the right lung. Postoperative changes consistent with reported history of left-sided lung transplant. There is bibasilar scarring/atelectasis. No airspace consolidation is seen typical for pneumonia and there is no pleural effusion. Mediastinum: A prominent precarinal node measures 12 mm in short axis. Leonor: Clear. Axillae: There is no axillary lymphadenopathy. Upper abdomen: There is a small to moderate hiatal hernia. Partially visualized upper abdominal viscera is otherwise grossly unremarkable. Skeletal structures: The skeletal structures are osteopenic. Degenerative change and hyperkyphosis is noted in the thoracic spine. Fusion hardware is seen in the lower cervical spine. No lytic or blastic bony lesions are seen. There are healed left-sided rib fractures. IMPRESSION: 1. There is no evidence of pulmonary embolus in the main, lobar, or segmental pulmonary arteries. 2. Advanced emphysematous change is noted in the right lung, and there is evidence of left-sided pulmonary transplant. 3. There is no airspace consolidation typical for pneumonia or pleural effusion. 4. Hiatal hernia. 5. Additional findings as above. Discharge Plan Visit Data Chief Complaint: Illness Stated Complaint: FEVER, BACK PAIN, LUNG TRANSPLANT A YEAR AGO ED Provider: Luis Alfredo Fuentes Discharge Problem: Hypoxia, Dyspnea, Hypomagnesemia, History of lung transplant Patient Disposition: Transfer Acute Care Hospital Condition: Fair Forms Stand Alone Forms: [facility] Hospital Prescriptions Prescriptions: No Action magnesium chloride [Mag 64] 64 mg Tablet,Delayed Release (Dr/Ec) 64 mg PO BID RF: 0 prednisone 5 mg tablet 5 mg PO DAILY RF: 0 amlodipine 5 mg tablet 5 mg PO DAILY RF: 0 acyclovir 400 mg tablet 800 mg PO DAILY RF: 0 sulfamethoxazole-trimethoprim 800-160 mg tablet 1 tab PO 3XWK RF: 0 hydromorphone 2 mg tablet 2 mg PO Q12H PRN (Reason: Breakthrough Pain) RF: 0 citalopram 20 mg tablet 20 mg PO DAILY RF: 0 potassium chloride 20 mEq tablet,ER particles/crystals 20 meq PO BID RF: 0 insulin lispro 100 unit/mL insulin pen 8 unit SUBCUT AC RF: 0 Lantus Solostar U-100 Insulin 100 unit/mL (3 mL) insulin pen 12 unit SUBCUT HS RF: 0 hydromorphone 8 mg tablet extended release 24 hr 8 mg PO QAM RF: 0 pantoprazole 40 mg tablet,delayed release (DR/EC) 40 mg PO DAILY RF: 0 tacrolimus 0.5 mg Capsule 0.5 mg PO DAILY RF: 0 Referrals Referrals: August Esposito MD [Primary Care Provider] - Discharge Problem: Dyspnea Qualifiers: Dyspnea type: shortness of breath Qualified Code(s): R06.02 - Shortness of breath
[2020-07-28] MEDS ORDERED: SODIUM CHLORIDE 0.9% 1000ML 1,000 ML IV SCH (16:30)
--- NOTE | 2020-07-28 17:04 | XRay Report ---
XR chest 1V portable HISTORY: 65 years-old Female SEPSIS acute sepsis COMPARISON: Chest radiographs 02/27/2019 TECHNIQUE: Portable AP view the chest FINDINGS: Cardiomediastinal and hilar silhouettes are within normal limits. Left subclavian Cemcsu-o-Spqi ania ter. Surgical clips project of the left mediastinal border. Calcified plaque of the thoracic aorta. N o pneumothorax, pleural effusion, airspace consolidation or overt pulmonary edema. Degenerative becker es of the shoulders and spine. Cervical spinal fusion hardware. IMPRESSION: No acute process. ACT 112: Negative or not required by law. The above report was generated using voice recognition software. It may contain grammatical, syntax o r spelling errors. Electronically signed by: Tushar Landeros M.D. 07/28/2020 5:03 PM
[2020-07-28 17:34] LABS: Hematocrit (blood only) 31.4 % (37-47); Hemoglobin 10.9 g/dL (12.0-16.0); Mean Corpuscular Hemoglobin 31.8 pg (25-34); Mean Corpuscular Hgb Conc 34.7 g/dL (32-36); Mean Corpuscular Volume 91.5 fL (80-100); Mean Platelet Volume 9.2 fL (7.4-10.4); Platelet Count 176 K/uL (130-400); RDW Standard Deviation 50.6 fL (36.4-46.3); Red Blood Count 3.43 M/uL (4.2-5.4); White Blood Count 5.95 K/uL (4.8-10.8)
[2020-07-28 17:43] LABS: Partial Thromboplastin Ratio 0.8; Partial Thromboplastin Time 20.4 Seconds (21.0-31.0)
[2020-07-28 17:48] LABS: Albumin Level 3.4 gm/dl (3.4-5.0); Calcium 8.7 mg/dl (8.5-10.1); Creatinine Clr Calc Pharmacy 37.4 ml/min; Est GFR (African American) 47.3; Est GFR (Non-African American) 40.8; Magnesium 1.6 mg/dl (1.8-2.4); Potassium 4.6 mmol/L (3.5-5.1)
[2020-07-28 17:49] LABS: Influenza A virus by PCR Negative (Neg); Influenza B virus by PCR Negative (Neg); RSV by PCR Negative (Neg); SARS CoV2 RNA(COVID-19) InHosp NEGATIVE (Negative)
[2020-07-28] MEDS ORDERED: MAGNESIUM SULFATE / D5W 1 GM/100 ML BAG IV STA (17:50)
[2020-07-28] MEDS ORDERED: MAGNESIUM OXIDE 400 MG TAB PO STA (17:50)
[2020-07-28 17:53] LABS: Albumin Globulin Ratio 1.2 (0.9-2); Bilirubin,Total 0.6 mg/dl (0.2-1); Globulin 2.8 gm/dl (2.5-4.0); Total Protein 6.2 gm/dl (6.4-8.2); Troponin I 0.029 ng/ml (0-0.045)
[2020-07-28 17:58] LABS: Basophils # (auto) 0.01 K/uL (0-0.2); Basophils % (auto) 0.2 %; Eosinophils # (auto) 0.02 K/uL (0-0.5); Eosinophils % (auto) 0.3 %; Immature Granulocytes # (auto) 0.38 K/uL (0.00-0.02); Immature Granulocytes % (auto) 6.4 %; Lymphocytes # (auto) 0.66 K/uL (1.2-3.4); Lymphocytes % (auto) 11.1 %; Monocytes # (auto) 0.11 K/uL (0.11-0.59); Monocytes % (auto) 1.8 %; Neutrophils # (auto) 4.77 K/uL (1.4-6.5); Neutrophils % (auto) 80.2 %; Ovalocytes 1+
[2020-07-28] MEDS ORDERED: OPTIRAY 320 125ml IV ONE (18:33)
--- NOTE | 2020-07-28 18:45 | CT Scan Report ---
CT ANGIOGRAM OF THE CHEST CLINICAL HISTORY: Dyspnea. 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 COMPARISON STUDY: Chest x-ray dated 07/28/2020. Chest CT dated 02/16/2018. TECHNIQUE: Following the IV administration of 109 cc of Optiray 320, CT angiogram of the chest was pe rformed from the upper abdomen to the thoracic inlet utilizing the pulmonary embolus protocol. Images are reviewed in the axial, sagittal, and coronal planes. 3-D MIPS images are created and assessed. I V contrast was administered without complication. A dose lowering technique was utilized adhering to the principles of ALARA. CT DOSE: 245.41 mGy.cm FINDINGS: Thyroid: The thyroid gland is enlarged and heterogeneous. Low-attenuation nodules measure up to 1 cm. These are unchanged dating back to 2018. Thoracic aorta: There is advanced atherosclerotic calcification of the thoracic aorta, which is candy l in caliber and demonstrates standard 3-vessel arch anatomy. No dissection is seen. Pulmonary vasculature: The pulmonary trunk is normal in caliber. There are no filling defects identif ied in main, lobar, or segmental pulmonary branches to suggest pulmonary embolus. Heart: A left subclavian central venous infusion port is in place. The heart is. Normal in size notin g trace pericardial effusion. The coronary arteries are densely calcified. Lungs and pleural spaces: Advanced emphysematous change is seen throughout the right lung. Postoperat schuyler changes consistent with reported history of left-sided lung transplant. There is bibasilar scarri ng/atelectasis. No airspace consolidation is seen typical for pneumonia and there is no pleural effus ion. Mediastinum: A prominent precarinal node measures 12 mm in short axis. Leonor: Clear. Axillae: There is no axillary lymphadenopathy. Upper abdomen: There is a small to moderate hiatal hernia. Partially visualized upper abdominal visce ra is otherwise grossly unremarkable. Skeletal structures: The skeletal structures are osteopenic. Degenerative change and hyperkyphosis is noted in the thoracic spine. Fusion hardware is seen in the lower cervical spine. No lytic or blasti c bony lesions are seen. There are healed left-sided rib fractures. IMPRESSION: 1. There is no evidence of pulmonary embolus in the main, lobar, or segmental pulmonary arteries. 2. Advanced emphysematous change is noted in the right lung, and there is evidence of left-sided pulm onary transplant. 3. There is no airspace consolidation typical for pneumonia or pleural effusion. 4. Hiatal hernia. 5. Additional findings as above. ACT 112: Negative or not required by law. Electronically signed by: Luis Alfredo Dickerson M.D. 07/28/2020 6:44 PM
[2020-07-28] MEDS ORDERED: ALBUT/IPRATROP 3MG/0.5MG NEB 3 ML VIAL NEB STA (18:58)
[2020-07-28] MEDS ORDERED: methylPREDNISolone 60 MG in SYRINGE 1 ML IV STA (18:58)
[2020-07-28] MEDS ORDERED: methylPREDNISolone 125 MG/2 ML VIAL ONE (19:31)
[2020-07-28 19:53] LABS: Appearance Urine Clear (Clear); Bacteria Urine Automated Negative (Negative); Bilirubin Urine Negative (Negative); Blood Urine Negative (Negative); Color Urine Yellow; Glucose Urine UA 3+ (Negative); Ketones Urine Negative (Negative); Leukocyte Esterase Urine Negative (Negative); Nitrite Urine Negative (Negative); Protein Urine Trace (Negative); RBC Urine Automated 0-4 /hpf (0-4); Specific Gravity Urine 1.032 (1.000-1.030); Urobilinogen Urine Negative (Negative)
[2020-07-28 21:18] LABS: Calcium Oxalate Crystals Urine Present (None Prsent)
[2020-07-28] MEDS ORDERED: HYDROmorphone HCL 2 MG TAB PO STA (21:22)
[2020-07-28] MEDS ORDERED: LANTUS PER UNIT CHARGE SQ STA (21:22)
[2020-07-29] MEDS ORDERED: VANCOMYCIN CONSULT ACTIVE PRN (00:27)
[2020-07-29] MEDS ORDERED: VANCOMYCIN HCL 1,750 MG in SODIUM CHLORIDE 0.9% 500 ML IV ONE (00:27)
--- NOTE | 2020-07-29 00:42 | Emergency Department Note ---
ED Visit Note Patient was awaiting transfer to [facility] in [place]. I received a phone call from the physicians there, there are no beds opening up for the foreseeable future, at least until tomorrow some time. They suggested a hospital stay at our facility and then transfer when a bed became available. They did suggest IV vancomycin in addition to the IV cefepime, IV vancomycin was ordered. I spoke to the patient about the need for her stay at this facility for now, she understands. I spoke with the on-call hospitalist as well as case management. . : Dyspnea Qualifiers: Dyspnea type: shortness of breath Qualified Code(s): R06.02 - Shortness of breath
[2020-07-29] MEDS ORDERED: traMADol HCL 50 MG TABLET PO STA (01:27)
[2020-07-29] MEDS ORDERED: XOPENEX/ATROVENT 1.25mg/0.5MG NEB COMBO NEB STA (01:27)
--- NOTE | 2020-07-29 01:27 | History & Physical Report ---
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 and antibacterial/antiviral prophylaxis No overt sepsis for now history of AAT deficiency as per records Hx PE status post Coumadin Hypertension, slight elevated DM2, insulin requiring, suboptimal control as of recent hemoglobin A1c of 9.07 July 2020 CRI, creatinine at baseline Chronic anemia, hemoglobin at baseline NHL status post chemotherapy chronic pain on narcotics past tobacco abuse Medical telemetry Supplemental O2 Baseline ABG IV Solu-Medrol daily for now Nebs RTC Vanco and Cefepime for antibiotic coverage as per ED provider conversation with [facility] lung transplant specialist. Transfer to [facility] once bed available. Patient accepted for transfer by Dr. Adalberto Pascual. Transfer paperwork already accomplished by ED provider. Basal insulin, ISS BG goal [id number], carb count coverage DVT prophylaxis with Heparin subcu Full code Text document was generated using [employer] voice recognition software. It may contain grammatical or spelling errors. Kindly contact undersigned for clarification of any documentation item in question. History of Present Illness Chief Complaint: Cough, shortness of breath Primary Care Provider: August Esposito MD History obtained from patient and records. Medical history significant for chronic respiratory failure secondary to COPD on home O2, history lung transplant on chronic immunosuppression regimen and antibacterial/antiviral prophylaxis (07/2019), history of AAT deficiency, Hx PE status post Coumadin, hypertension, DM2, insulin requiring, mood disorder, NHL status post chemotherapy, CRI (baseline creatinine 1.4), chronic anemia (baseline hemoglobin 10-11), chronic pain on narcotics, past tobacco abuse, history of VRE as per records. Last [facility] confinement for COPD exacerbation. Patient confined at [facility] March 2020 for cholangitis status post cholecystectomy. Recent ER visit 2 weeks ago for facial laceration secondary to traumatic head injury. Subsequent laceration repair at the ER. 3 days history of chills, chest congestion, cough productive of junky yellow sputum. Worsening shortness of breath especially on exertion and wheezing. No actual chest pain. Achy back pain as per patient. O2 sats 80s upon arrival at the ER. Patient given Solu-Medrol at the ER for COPD exacerbation. Cefepime given at the ER for possible pulmonary infection. IV Vancomycin given at the ER following recommendations of [facility] transplant specialist. 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 [facility] transfer currently precluded by unavailability of beds at facility. MEDICAL HISTORY: As above. SURGERIES: Lung transplant, back surgery, neck surgery, salivary gland procedure, hysterectomy, A-port, shoulder tumor removal, cholecystectomy, cataract surgery FAMILY HISTORY: leukemia, diabetes and emphysema. PERSONAL AND SOCIAL HISTORY: Past tobacco abuse. No chronic intake of alcoholic beverages. On disability. Allergies Allergy/AdvReac Type Severity Reaction Status Date / Time No Known Allergies Allergy Unverified 07/28/20 16:24 Home Medications Medication Instructions Recorded Confirmed Type acyclovir 800 mg PO DAILY 07/18/20 07/28/20 History amlodipine 5 mg PO DAILY 07/18/20 07/28/20 History citalopram 20 mg PO DAILY 07/18/20 07/28/20 History hydromorphone 2 mg PO Q12H PRN 07/18/20 07/28/20 History hydromorphone 8 mg PO QAM 07/18/20 07/28/20 History insulin glargine [Lantus Solostar 12 unit SUBCUT HS 07/18/20 07/28/20 History U-100 Insulin] insulin lispro 8 unit SUBCUT AC 07/18/20 07/28/20 History pantoprazole 40 mg PO DAILY 07/18/20 07/28/20 History potassium chloride 20 meq PO BID 07/18/20 07/28/20 History prednisone 5 mg PO DAILY 07/18/20 07/28/20 History sulfamethoxazole-trimethoprim 1 tab PO 3XWK 07/18/20 07/28/20 History tacrolimus 0.5 mg PO DAILY 07/18/20 07/28/20 History magnesium chloride [Mag 64] 64 mg PO BID 07/28/20 07/28/20 History Past Med/Surg History Medical History (Updated 07/29/20 @ 06:11 by Harish Stephens MD) Uoqyo-[id number] deficiency Chronic back pain Chronic pain syndrome Chronic respiratory failure with hypoxia 4L home O2 COPD (chronic obstructive pulmonary disease) Coronary artery disease Degenerative disc disease Depression Diabetes type 2, controlled GERD (gastroesophageal reflux disease) H/O lymphoma Heart murmur Hyperlipidemia Pulmonary embolism 2008--reason unknown, no blood thinners Surgical History (Updated 07/28/20 @ 22:16 by Luis Alfredo Fuentes MD) History of bilateral tubal ligation History of bronchoscopy multiple History of colonoscopy History of dilatation and curettage History of fusion of cervical spine normal ROM History of lumbar spinal fusion History of tonsillectomy History of tooth extraction History of total hysterectomy with bilateral salpingo-oophorectomy (BSO) History of vascular access device left chest APort Hx of arthroscopy of right knee Family History Father Family history of diabetes mellitus Sister Family history of diabetes mellitus Other No family history of adverse response to anesthesia Social History Smoking Status: Never smoker Second Hand Exposure: Yes ( smokes/parents smoked); Hx Alcohol Use: No Hx Substance Use: No Preferred Language: Swedish Communication Ability: Effective 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 Beliefs That Will Affect Care: None Current Living Situation: Spouse Feels Safe at Home: Yes Safety Concerns: Feels Safe At This Time Assistive Devices: Oxygen - Continuous Review of Systems Review of Systems: As per HPI, all 10 systems reviewed, all other ROS negative Physical Exam Physical Exam: GENERAL: uncomfortable, anxious, respiratory distress SKIN: Pallor, warm HEENT: [place] palpebral conjunctivae, no ptosis, dry buccal mucosa, nasal cannula in place NECK : Supple, no tenderness CHEST : Decreased breath sounds, expiratory wheezes , no tenderness HEART : RRR, no obvious murmurs ABDOMEN: Some distention, nontender EXTREMITIES : Minimal LE swelling, no LE tenderness, no other conspicuous deformities noted NEUROLOGIC : Coherent, lip asymmetry (post laceration repair from 2 weeks ago as per patient), no other gross focality Results & Data Results & Data ([facility]) Vital Signs (Past 12 Hours) Vital Signs Temp Pulse Pulse Resp BP Pulse Ox 07/29/20 00:30 96 H 20 140/60 95 07/29/20 00:00 86 22 147/65 H 96 07/28/20 23:30 93 H 20 117/58 L 97 07/28/20 23:00 91 H 19 137/61 93 07/28/20 22:00 96 H 24 147/66 H 96 07/28/20 21:45 91 H 24 136/56 L 96 07/28/20 21:30 94 H 24 144/61 H 96 07/28/20 21:15 94 H 24 142/62 H 96 07/28/20 21:00 94 H 20 142/63 H 97 07/28/20 20:45 96 H 18 137/66 98 07/28/20 20:31 100 H 20 133/60 98 07/28/20 20:15 91 H 18 129/54 L 98 07/28/20 20:00 91 H 20 134/71 97 07/28/20 19:45 94 H 20 145/60 H 97 07/28/20 19:31 94 H 22 124/76 97 07/28/20 19:16 92 H 22 119/56 L 100 07/28/20 19:14 101 H 22 98 07/28/20 19:00 86 31 H 139/61 99 07/28/20 18:46 81 20 89 L 07/28/20 18:45 82 31 H 143/61 H 91 07/28/20 18:41 88 19 07/28/20 18:40 131/55 L 07/28/20 18:16 78 25 H 97 07/28/20 18:15 77 21 130/72 98 07/28/20 18:01 84 20 98 07/28/20 18:00 87 17 132/89 99 07/28/20 17:52 75 30 H 130/75 96 07/28/20 17:45 78 17 07/28/20 17:30 79 25 H 07/28/20 17:15 79 15 07/28/20 17:00 81 25 H 07/28/20 16:59 77 21 07/28/20 13:29 36.9 C 87 20 127/67 98 Laboratory Results Laboratory Results WBC 5.95 K/uL (4.8-10.8) 07/28/20 17:15 RBC 3.43 M/uL (4.2-5.4) L 07/28/20 17:15 Hgb 10.9 g/dL (12.0-16.0) L 07/28/20 17:15 Hct 31.4 % (37-47) L 07/28/20 17:15 MCV 91.5 fL (80-100) 07/28/20 17:15 MCH 31.8 pg (25-34) 07/28/20 17:15 MCHC 34.7 g/dL (32-36) 07/28/20 17:15 RDW Std Deviation 50.6 fL (36.4-46.3) H 07/28/20 17:15 RDW Coeff of Jennie 15.0 % (11.5-14.5) H 07/28/20 17:15 Plt Count 176 K/uL (130-400) 07/28/20 17:15 MPV 9.2 fL (7.4-10.4) 07/28/20 17:15 Immature Gran % (Auto) 6.4 % 07/28/20 17:15 Neut % (Auto) 80.2 % 07/28/20 17:15 Lymph % (Auto) 11.1 % 07/28/20 17:15 Burnett % (Auto) 1.8 % 07/28/20 17:15 Eos % (Auto) 0.3 % 07/28/20 17:15 Baso % (Auto) 0.2 % 07/28/20 17:15 Neut # (Auto) 4.77 K/uL (1.4-6.5) 07/28/20 17:15 Lymph # (Auto) 0.66 K/uL (1.2-3.4) L 07/28/20 17:15 Burnett # (Auto) 0.11 K/uL (0.11-0.59) 07/28/20 17:15 Eos # (Auto) 0.02 K/uL (0-0.5) 07/28/20 17:15 Baso # (Auto) 0.01 K/uL (0-0.2) 07/28/20 17:15 Immature Gran # (Auto) 0.38 K/uL (0.00-0.02) H 07/28/20 17:15 Ovalocytes 1+ 07/28/20 17:15 PT 10.0 Seconds (9.0-12.0) 07/28/20 17:15 INR 1.0 (0.9-1.1) 07/28/20 17:15 APTT 20.4 Seconds (21.0-31.0) L 07/28/20 17:15 PTT Ratio 0.8 07/28/20 17:15 Sodium 139 mmol/L (136-145) 07/28/20 17:15 Potassium 4.6 mmol/L (3.5-5.1) 07/28/20 17:15 Chloride 108 mmol/L (98-107) H 07/28/20 17:15 Carbon Dioxide 24 mmol/L (21-32) 07/28/20 17:15 Anion Gap 6.0 (3-11) 07/28/20 17:15 BUN 23 mg/dl (7-18) H 07/28/20 17:15 Creatinine 1.35 mg/dl (0.6-1.2) H 07/28/20 17:15 Est Cr Clr Drug Dosing 37.4 ml/min 07/28/20 17:15 Est GFR ( Amer) 47.3 07/28/20 17:15 Est GFR (Non-Af Amer) 40.8 07/28/20 17:15 BUN/Creatinine Ratio 17.0 (10-20) 07/28/20 17:15 Glucose 220 mg/dl (70-99) H 07/28/20 17:15 Lactate 1.5 mmol/L (0.4-2.0) 07/28/20 17:15 Calcium 8.7 mg/dl (8.5-10.1) 07/28/20 17:15 Magnesium 1.6 mg/dl (1.8-2.4) L 07/28/20 17:15 Total Bilirubin 0.6 mg/dl (0.2-1) 07/28/20 17:15 AST 33 U/L (15-37) 07/28/20 17:15 ALT 31 U/L (12-78) 07/28/20 17:15 Alkaline Phosphatase 67 U/L (45-117) 07/28/20 17:15 Troponin I 0.029 ng/ml (0-0.045) 07/28/20 17:15 Total Protein 6.2 gm/dl (6.4-8.2) L 07/28/20 17:15 Albumin 3.4 gm/dl (3.4-5.0) 07/28/20 17:15 Globulin 2.8 gm/dl (2.5-4.0) 07/28/20 17:15 Albumin/Globulin Ratio 1.2 (0.9-2) 07/28/20 17:15 Procalcitonin < 0.05 ng/ml (0-0.5) 07/28/20 17:15 Urine Color Yellow 07/28/20 19:30 Urine Appearance Clear (Clear) 07/28/20 19:30 Urine pH 5.0 (4.5-7.5) 07/28/20 19:30 Ur Specific [place] 1.032 (1.000-1.030) H 07/28/20 19:30 Urine Protein Trace (Negative) H 07/28/20 19:30 Urine Glucose (UA) 3+ (Negative) H 07/28/20 19:30 Urine Ketones Negative (Negative) 07/28/20 19:30 Urine Blood Negative (Negative) 07/28/20 19:30 Urine Nitrite Negative (Negative) 07/28/20 19: Urine Bilirubin Negative (Negative) 07/28/20 19: Urine Urobilinogen Negative (Negative) 07/28/20 19:30 Ur Leukocyte Esterase Negative (Negative) 07/28/20 19:30 Urine WBC (Auto) 1-5 /hpf (0-5) 07/28/20 19:30 Urine RBC (Auto) 0-4 /hpf (0-4) 07/28/20 19: U Hyaline Cast (Auto) 1-5 /lpf (0-5) 07/28/20 19:30 U Epithel Cells (Auto) 5-10 /lpf (0-5) H 07/28/20 19:30 Urine Bacteria (Auto) Negative (Negative) 07/28/20 19:30 Urine Crystals Not Reportable 07/28/20 19:30 Calcium Oxalate Crystal Present (None Prsent) A 07/28/20 19:30 COVID-19 Eval Order CovFluRsv at [facility] 07/28/20 16:50 SARS-CoV-2 (PCR) NEGATIVE (Negative) 07/28/20 16:50 Influenza Type A (PCR) Negative (Neg) 07/28/20 16:50 Influenza Type B (PCR) Negative (Neg) 07/28/20 16:50 RSV (RT-PCR) Negative (Neg) 07/28/20 16:[address] chest: 1. There is no evidence of pulmonary embolus in the main, lobar, or segmental pulmonary arteries. 2. Advanced emphysematous change is noted in the right lung, and there is evidence of left-sided pulmonary transplant. 3. There is no airspace consolidation typical for pneumonia or pleural effusion. 4. Hiatal hernia. EKG as per my interpretation: Rate 80, NSR, LAD, LAFB, LVH, nonspecific T wave abnormalities
[2020-07-29] MEDS ORDERED: HYDROmorphone INJ 0.5 MG/0.5 ML SYR IV STA (01:32)
[2020-07-29] MEDS ORDERED: IPRATROPIUM BROMIDE NEB SOLN 0.02% 2.5 ML VIAL INH STA (01:32)
[2020-07-29] MEDS ORDERED: LEVALBUTEROL 1.25MG/0.5ML NEB INH STA (01:33)
[2020-07-29] MEDS ORDERED: INSULIN GLARGINE SOLOSTAR 100 UNITS/ML 3 ML PEN SC STA ×3 (01:45→03:22)
[2020-07-29] MEDS ORDERED: PROMETHAZINE HCL 12.5 MG in SODIUM CHLORIDE 0.9% 50 ML IV PRN (03:12)
[2020-07-29] MEDS ORDERED: IPRATROPIUM BROMIDE NEB SOLN 0.02% 2.5 ML VIAL INH SCH (03:12)
[2020-07-29] MEDS ORDERED: HYDROmorphone HCL 2 MG TAB PO PRN (03:12)
[2020-07-29] MEDS ORDERED: DEXTROSE 50% 50 ML SYRINGE IV PRN (03:12)
[2020-07-29] MEDS ORDERED: GLUCAGON FOR INJ 1 MG VIAL SQ PRN (03:12)
[2020-07-29] MEDS ORDERED: GLUCOSE 10 TABS/TUBE PO PRN (03:12)
[2020-07-29] MEDS ORDERED: ACETAMINOPHEN 325 MG TAB PO PRN (03:12)
[2020-07-29] MEDS ORDERED: CARBOHYDRATES FOR HYPOGLYCEMIA PO PRN (03:12)
[2020-07-29] MEDS ORDERED: HYDROmorphone INJ 0.5 MG/0.5 ML SYR IV PRN (03:12)
[2020-07-29] MEDS ORDERED: SODIUM CHLORIDE 0.9% 1000ML 1,000 ML IV ONE (03:12)
[2020-07-29] MEDS ORDERED: GLUCOSE 40% GEL 15 GM TUBE PO PRN (03:12)
[2020-07-29] MEDS ORDERED: CEFEPIME CONSULT ACTIVE PRN (03:17)
[2020-07-29] MEDS ORDERED: methylPREDNISolone 20 MG in SYRINGE 0 ML IV STA (03:20)
[2020-07-29] MEDS ORDERED: SODIUM CHLORIDE 0.9% NEBU SOLN 3 ML NEB STA (03:23)
[2020-07-29] MEDS ORDERED: MAGNESIUM SULFATE / D5W 1 GM/100 ML BAG IV ONE (03:36)
[2020-07-29] MEDS: amLODIPine BESYLATE 5 MG TAB PO SCH (04:03)
[2020-07-29 04:05] LABS: Hematocrit (blood only) 29.1 % (37-47); Hemoglobin 9.8 g/dL (12.0-16.0); Immature Granulocytes # (auto) 0.25 K/uL (0.00-0.02); Immature Granulocytes % (auto) 4.6 %; Lymphocytes % (auto) 1.9 %; Mean Corpuscular Hgb Conc 33.7 g/dL (32-36); Mean Corpuscular Volume 92.1 fL (80-100); Mean Platelet Volume 8.6 fL (7.4-10.4); Monocytes # (auto) 0.07 K/uL (0.11-0.59); Monocytes % (auto) 1.3 %; Neutrophils # (auto) 4.97 K/uL (1.4-6.5); Neutrophils % (auto) 92.2 %; Platelet Count 154 K/uL (130-400); RDW Coefficient of Variation 14.9 % (11.5-14.5); RDW Standard Deviation 50.8 fL (36.4-46.3); Red Blood Count 3.16 M/uL (4.2-5.4); White Blood Count 5.39 K/uL (4.8-10.8)
[2020-07-29 04:09] LABS: BUN Creatinine Ratio 18.7 (10-20); Calcium 8.1 mg/dl (8.5-10.1); Est GFR (African American) 45.3; Est GFR (Non-African American) 39.1; Magnesium 1.8 mg/dl (1.8-2.4)
[2020-07-29 04:22] LABS: HCO3 ABG 18 mmol/L (19-24); PCO2 ABG 25 mmHg (35-46); PO2 ABG 133 mmHg (80-95); pH ABG 7.49 (7.35-7.45)
[2020-07-29 04:25] LABS: Allen Test Pos (Pos)
[2020-07-29] MEDS: INSULIN ASPART 100 UNITS/ML 3 ML PEN SC SCH ×5 (04:25→20:54)
[2020-07-29 04:26] LABS: Beta-Hydroxybutyrate 3.56 mg/dl (0.2-2.81)
[2020-07-29] MEDS ORDERED: LORazepam 0.25 MG/0.5 ML VIAL IV STA (04:49)
[2020-07-29] MEDS: HEPARIN SOD 5,000 UNIT/0.5 ML VIAL SQ SCH ×3 (06:05→20:57)
--- NOTE | 2020-07-29 06:45 | XRay Report ---
XR chest 1V portable HISTORY: 65 years-old Female sob acute shortness of breath COMPARISON: Chest radiograph and CTA chest 07/28/2020 TECHNIQUE: Portable AP view of the chest FINDINGS: Cardiomediastinal and hilar silhouettes are within normal limits. Surgical clips project over the lef t mediastinum. Left subclavian [id number] catheter is unchanged. No pneumothorax, pleural effusion or overt pulmonary edema. Emphysema. Minimal linear bibasilar densities. Degenerative changes of the shoulders and spine. Cervical spinal fusion hardware. IMPRESSION: 1. Emphysema with chronic interstitial coarsening. 2. Minimal linear bibasilar densities suggest atelectasis. ACT 112: Negative or not required by law. The above report was generated using voice recognition software. It may contain grammatical, syntax o r spelling errors. Electronically signed by: Tushar Landeros M.D. 07/29/2020 6:44 AM
[2020-07-29] MEDS ORDERED: XOPENEX/ATROVENT 1.25mg/0.5MG NEB COMBO NEB SCH (07:00)
[2020-07-29] MEDS: LEVALBUTEROL 1.25MG/0.5ML NEB INH SCH ×3 (07:15→19:36)
[2020-07-29] MEDS: IPRATROPIUM BROMIDE NEB SOLN 0.02% 2.5 ML VIAL INH SCH ×3 (07:16→19:35)
[2020-07-29] MEDS: CITALOPRAM 20 MG TAB PO SCH (08:42)
[2020-07-29] MEDS: TACROLIMUS 0.5 MG CAP PO SCH (08:43)
[2020-07-29] MEDS: ACYCLOVIR 400 MG TAB PO SCH (08:43)
[2020-07-29] MEDS: PANTOprazole 40 MG TAB PO SCH (08:43)
[2020-07-29] MEDS: HYDROmorphone HCL 2 MG TAB PO SCH (08:52)
[2020-07-29] MEDS: CEFEPIME 2,000 MG in SYRINGE 0 ML IV SCH ×2 (08:52→20:16)
[2020-07-29] MEDS ORDERED: methylPREDNISolone 40 MG in SYRINGE 0 ML IV SCH (09:00)
[2020-07-29] MEDS ORDERED: INSULIN GLARGINE SOLOSTAR 100 UNITS/ML 3 ML PEN SC SCH ×2 (09:00→21:00)
[2020-07-29] MEDS ORDERED: amLODIPine BESYLATE 5 MG TAB PO SCH (09:00)
[2020-07-29] MEDS: INSULIN GLARGINE SOLOSTAR 100 UNITS/ML 3 ML PEN SC SCH ×2 (09:09→20:55)
--- NOTE | 2020-07-29 09:14 | Pharmacy Report ---
Pharmacy Abx Dose Short Note - Date of Service July 29, 2020 - Assessment & Plan Assessment 65 year old with past medical hx significant for chronic respiratory failure, COPD, on home O2, hx of lung transplant on chronic immunosuppression, DM2. Vancomycin and cefepime started per recommendation from [facility] lung transplant team. Patient likely transfer there once bed available. Blood cultures x 2 are pending. Plan Vancomycin * Received loading dose of vancomycin 1750 mg iv x 1 last evening (~25 mg/kg) * Will plan to start vancomycin 1250 mg iv q 24 hr per vancomycin AUC nomogram dosing * Estimated kinetics: t1/2~20 hrs, ke~0.03, CrCl ~36 ml/min * Plan to order level if continued >48 hrs Cefepime * 2 gm iv q 12 hr - target q8 hr interval / adjusted for CrCl 30-60 ml/min Pharmacy will continue to follow and will adjust dose/frequency as necessary. Thank you.
--- NOTE | 2020-07-29 12:17 | Communication Note ---
Date of Service: July 29, 2020 Patient doing okay this morning. Patient was on 2 L of nasal cannula. Prior to my arrival patient did get Dilaudid and was a bit somnolent. Patient denied feeling short of breath. Does report cough. Denies any chest pain or abdominal pain. Limited review of system was obtained as patient was somnolent. Hemodynamically doing fine. Will continue with vancomycin/cefepime. Continue with methylprednisone. Currently patient is awaiting bed at [facility] lung transplant.
--- NOTE | 2020-07-29 14:21 | Electrocardiogram Report ---
Test Reason : Blood Pressure : / mmHG Vent. Rate : 082 BPM Atrial Rate : 082 BPM P-R Int : 146 ms QRS Dur : 074 ms QT Int : 362 ms P-R-T Axes : 072 -06 078 degrees QTc Int : 422 ms Poor data quality, interpretation may be adversely affected Normal sinus rhythm Left ventricular hypertrophy with repolarization abnormality Abnormal ECG When compared with ECG of 30-OCT-2018 15:43, No significant change was found Confirmed by Salinas Guerrero ([id number]) on 07/29/2020 2:21:16 PM Referred By: REFERRED SELF Confirmed By:Salinas Guerrero
[2020-07-30] MEDS ORDERED: VANCOMYCIN HCL 1,250 MG in SODIUM CHLORIDE 0.9% 250 ML IV SCH
[2020-07-30] MEDS ORDERED: HEPARIN 100 UNIT/ML 5ML FLUSH FLUSH PRN (00:39)
[2020-07-30] MEDS: HEPARIN SOD 5,000 UNIT/0.5 ML VIAL SQ SCH (06:02)
[2020-07-30 06:45] LABS: Creatinine Clr Calc Pharmacy 46.9 ml/min; Est GFR (African American) 62.7; Est GFR (Non-African American) 54.1
--- NOTE | 2020-07-30 07:59 | Hospitalist Progress Note ---
Date of Service July 30, 2020 Assessment & Plan (1) Respiratory failure, acute and chronic: Secondary to COPD exacerbation/complicated bronchitis hx lung transplant on chronic immunosuppression regimen and antibacterial/antiviral prophylaxis No overt sepsis for now History of alpha-1 antitrypsin deficiency Vanco and Cefepime for antibiotic coverage as per ED provider conversation with [facility] lung transplant specialist. IV Solu-Medrol daily for now [facility] RTC Transfer to [facility] once bed available. Patient accepted for transfer by Dr. Adalberto Pascual. She remained stable as of this morning and was transferred to [facility] under care of Dr. Pascual Hx PE Was on Coumadin before Hypertension, slight elevated Remains at the upper limit of normal Continue current medications DM2, insulin requiring, suboptimal control as of recent hemoglobin A1c of 9.07 July 2020 Basal insulin, ISS BG goal [id number], carb count coverage CRI, creatinine at baseline Creatinine has been normalized at 1.07 as Chronic anemia, hemoglobin at baseline Anemia of chronic disease Hemoglobin stable at 9.8 NHL status post chemotherapy No acute symptoms Chronic pain on narcotics Denies any significant pain Past tobacco abuse DVT prophylaxis with Heparin subcu Full code The patient was transferred to [facility] hospital Admission and Anticipated Discharge Date Admission Date: July 29, 2020 Subjective 07/30/2020 The patient was seen and examined in telemetry unit She has COPD and is status post lung transplant, was admitted with acute on chronic respiratory failure She remains shortness of breath this morning but has been communicating with full sentences Denies any other significant symptoms She will be transferred to [facility] hospital this morning Review of Systems Review of Systems: All systems reviewed were unremarkable except as noted below Respiratory: + cough and + dyspnea Cardiovascular: no chest pain and no palpitations Gastrointestinal: no abdominal pain, no bloating, no nausea and no vomiting Physical Exam Physical Exam: Lying in bed with minimal shortness of breath at rest Constitutional: + acute distress (Due to shortness of breath), + ill appearing and average body habitus Eyes: PERRL, conjunctivae normal, anicteric sclerae ENMT: external ear and nose normal, oropharynx normal Neck: trachea midline, no thyromegaly Respiratory: + respiratory distress (Mild to moderate shortness of breath at rest) Auscultation: + diminished lung sounds, + crackles (Bibasilar crackles) and + wheezes Cardiovascular: Rate/Rhythm: regular rate and regular rhythm Heart Sounds: no murmur Extremities: + edema (Trace edema bilaterally) Gastrointestinal (Abdomen): Inspection/Auscultation: normal bowel sounds; abdomen not distended Percussion/Palpation: + abdomen tender (Mildly tender in the epigastrium) and abdomen soft Musculoskeletal: No acute arthritis in any joint Neurologic: Alert, awake and oriented x3. Generally weak but no focal weakness Psychiatric: A+Ox3, euthymic affect Lymphatic: no cervical or axillary lymphadenopathy Results & Data Results & Data ([facility]) Vital Signs (Past 12 Hours) Vital Signs Temp Pulse Resp BP BP Pulse Ox 07/30/20 07:43 36.6 C 63 18 146/61 H 95 07/30/20 07:07 36.6 C 85 18 125/68 133/63 96 07/30/20 03:56 36.6 C 85 18 133/63 96 07/29/20 23:56 36.8 C 86 18 146/69 H 93 07/29/20 20:34 36.1 C L 89 19 141/63 H 96 Laboratory Results [facility] 07/30/20 05:47 Creatinine 1.07 Medications Administered Current Inpatient Medications Acetaminophen (Acetaminophen 325 Mg Tab) 650 mg PO Q4H PRN PRN Reason: Pain or Fever Stop: 08/28/20 03:11 Acyclovir (Acyclovir 400 Mg Tab) 800 mg PO DAILY ANIVAL Stop: 08/28/20 08:59 Last Admin: 07/29/20 08:43 Dose: 800 mg Documented by: Amlodipine Besylate (Amlodipine Besylate 5 Mg Tab) 5 mg PO DAILY ANIVAL Stop: 08/28/20 03:34 Last Admin: 07/29/20 04:03 Dose: 5 mg Documented by: Citalopram Hydrobromide (Citalopram 20 Mg Tab) 20 mg PO DAILY ANIVAL Stop: 08/28/20 08:59 Last Admin: 07/29/20 08:42 Dose: 20 mg Documented by: Dextrose (Dextrose 50% 50 Ml Syringe) 25 - 50 ml IV UD PRN; Protocol PRN Reason: Hypoglycemia Protocol Stop: 08/28/20 03:11 Glucagon (Glucagon For Inj 1 Mg Vial) 1 mg SQ UD PRN; Protocol PRN Reason: Hypoglycemia Protocol Stop: 08/28/20 03:11 Glucose (Glucose 10 Tabs/Tube) 4 - 8 tabs PO UD PRN; Protocol PRN Reason: Hypoglycemia Protocol Stop: 08/28/20 03:11 Glucose (Glucose 40% Gel 15 Gm Tube) 15 - 30 gm PO UD PRN; Protocol PRN Reason: Hypoglycemia Protocol Stop: 08/28/20 03:11 Heparin Sodium (Porcine) (Heparin Sod 5,000 Unit/0.5 Ml Vial) 5,000 units SQ Q8 ANIVAL Stop: 08/28/20 05:59 Last Admin: 07/30/20 06:02 Dose: 5,000 units Documented by: Heparin Sodium (Porcine) (Heparin 100 Unit/Ml 5ml Flush) 5 ml FLUSH PRN PRN PRN Reason: Flush Stop: 08/29/20 00:38 Hydromorphone HCl (Hydromorphone Hcl 2 Mg Tab) 2 mg PO Q4H PRN PRN Reason: Breakthrough Pain Stop: 08/12/20 03:11 Hydromorphone HCl (Hydromorphone Hcl 2 Mg Tab) 8 mg PO QAM [facility]IVAL Stop: 08/12/20 08:59 Last Admin: 07/29/20 08:52 Dose: Not Given Documented by: Hydromorphone HCl (Hydromorphone Inj 0.5 Mg/0.5 Ml Syr) 0.5 mg IV Q6H PRN PRN Reason: Pain Stop: 08/12/20 03:11 Last Admin: 07/29/20 15:18 Dose: 0.5 mg Documented by: Promethazine HCl 12.5 mg/ (Sodium Chloride) 50.5 mls @ 202 mls/hr IV Q6H PRN PRN Reason: Nausea And Vomiting Stop: 08/28/20 03:11 Methylprednisolone 20 mg/ (Syringe) 0.32 mls @ 1.5 mls/min IV DAILY ANIVAL Stop: 08/29/20 08:59 Cefepime HCl 2,000 mg/ Syringe 20 mls @ 5 mls/min IV Q12H ANIVAL; Protocol Stop: 08/05/20 07:59 Last Admin: 07/29/20 20:16 Dose: 5 mls/min Documented by: Vancomycin HCl 1,250 mg/ (Sodium Chloride) 275 mls @ 200 mls/hr IV Q24H ANIVAL Stop: 08/06/20 00:00 Last Infusion: 07/30/20 04:14 Dose: Infused Documented by: Insulin Aspart (Insulin Aspart 100 Units/Ml 3 Ml Pen) 0 units SC ACHS [facility] Stop: 08/28/20 03:11 Last Admin: 07/29/20 20:54 Dose: 2 units Documented by: Insulin Glargine (Insulin Glargine Solostar 100 Units/Ml 3 Ml Pen) 20 units SC BID [facility] Stop: 08/28/20 08:59 Last Admin: 07/29/20 20:55 Dose: 20 units Documented by: Ipratropium [place] (Ipratropium [place] Neb Soln 0.02% 2.5 Ml Vial) 0.5 mg INH Q6R [facility] Stop: 08/28/20 06:59 Last Admin: 07/29/20 19:35 Dose: 0.5 mg Documented by: Levalbuterol HCl (Levalbuterol 1.25mg/0.5ml Neb) 1.25 mg INH Q6R [facility] Stop: 08/28/20 06:59 Last Admin: 07/29/20 19:36 Dose: 1.25 mg Documented by: Miscellaneous (Carbohydrates For Hypoglycemia ) 15 - 30 gm PO UD PRN PRN Reason: Hypoglycemia Protocol Stop: 08/28/20 03:11 Miscellaneous Information (Vancomycin Consult Active) 1 ea N/A UD PRN PRN Reason: Consult Stop: 08/28/20 00:26 Miscellaneous Information (Cefepime Consult Active) 1 ea N/A UD PRN PRN Reason: Consult Stop: 08/28/20 03:16 Pantoprazole Sodium (Pantoprazole 40 Mg Tab) 40 mg PO DAILY [facility] Stop: 08/28/20 08:59 Last Admin: 07/29/20 08:43 Dose: 40 mg Documented by: Tacrolimus (Tacrolimus 0.5 Mg Cap) 0.5 mg PO DAILY [facility] Stop: 08/28/20 08:59 Last Admin: 07/29/20 08:43 Dose: 0.5 mg Documented by: Trimethoprim/Sulfamethoxazole (Sulfamethoxazole/Trimethoprim Ds 800/160mg Tab) 1 tab PO MoWeFr@0900 [facility] Stop: 08/29/20 08:59
[2020-07-30] MEDS: CEFEPIME 2,000 MG in SYRINGE 0 ML IV SCH (08:08)
[2020-07-30] MEDS: INSULIN ASPART 100 UNITS/ML 3 ML PEN SC SCH (08:09)
[2020-07-30] MEDS: HYDROmorphone HCL 2 MG TAB PO SCH (08:13)
[2020-07-30] MEDS: ACYCLOVIR 400 MG TAB PO SCH (08:15)
[2020-07-30] MEDS: amLODIPine BESYLATE 5 MG TAB PO SCH (08:15)
[2020-07-30] MEDS: CITALOPRAM 20 MG TAB PO SCH (08:16)
[2020-07-30] MEDS: TACROLIMUS 0.5 MG CAP PO SCH (08:16)
[2020-07-30] MEDS: PANTOprazole 40 MG TAB PO SCH (08:16)
[2020-07-30] MEDS: INSULIN GLARGINE SOLOSTAR 100 UNITS/ML 3 ML PEN SC SCH (08:35)
[2020-07-30] MEDS ORDERED: SULFAMETHOXAZOLE/TRIMETHOPRIM DS 800/160MG TAB PO SCH (09:00)
[2020-07-30] MEDS ORDERED: methylPREDNISolone 20 MG in SYRINGE 0 ML IV SCH (09:00)
--- NOTE | 2020-07-31 07:49 | Discharge Summary ---
Date of Service July 31, 2020 Admission HPI Per Admitting Provider History obtained from patient and records. Medical history significant for chronic respiratory failure secondary to COPD on home O2, history lung transplant on chronic immunosuppression regimen and antibacterial/antiviral prophylaxis (07/2019), history of AAT deficiency, Hx PE status post Coumadin, hypertension, DM2, insulin requiring, mood disorder, NHL status post chemotherapy, CRI (baseline creatinine 1.4), chronic anemia (baseline hemoglobin 10-11), chronic pain on narcotics, past tobacco abuse, history of VRE as per records. Last [facility] confinement for COPD exacerbation. Patient confined at [facility] last March 2020 for cholangitis status post cholecystectomy. Recent ER visit 2 weeks ago for facial laceration secondary to traumatic head injury. Subsequent laceration repair at the ER. 3 days history of chills, chest congestion, cough productive of junky yellow sputum. Worsening shortness of breath especially on exertion and wheezing. No actual chest pain. Achy back pain as per patient. O2 sats 80s upon arrival at the ER. Patient given Solu-Medrol at the ER for COPD exacerbation. Cefepime given at the ER for possible pulmonary infection. IV Vancomycin given at the ER following recommendations of [facility] transplant specialist. Patient accepted for transfer to [facility] by transplant specialist title one kinder[employer] as per ER provider. [facility] transfer currently precluded by unavailability of beds at facility. MEDICAL HISTORY: As above. SURGERIES: Lung transplant, back surgery, neck surgery, salivary gland procedure, hysterectomy, A-port, shoulder tumor removal, cholecystectomy, cataract surgery FAMILY HISTORY: leukemia, diabetes and emphysema. PERSONAL AND SOCIAL HISTORY: Past tobacco abuse. No chronic intake of alcoholic beverages. On disability. Admission Exam Per Admitting Provider Physical Exam: GENERAL: uncomfortable, anxious, respiratory distress SKIN: Pallor, warm HEENT: [place] palpebral conjunctivae, no ptosis, dry buccal mucosa, nasal cannula in place NECK : Supple, no tenderness CHEST : Decreased breath sounds, expiratory wheezes , no tenderness HEART : RRR, no obvious murmurs ABDOMEN: Some distention, nontender EXTREMITIES : Minimal LE swelling, no LE tenderness, no other conspicuous deformities noted NEUROLOGIC : Coherent, lip asymmetry (post laceration repair from 2 weeks ago as per patient), no other gross focality Principal Diagnosis Acute Respiratory failure Discharge Exam Constitutional + acute distress (Due to shortness of breath), + ill appearing and average body habitus Eyes PERRL, conjunctivae normal, anicteric sclerae ENMT external ear and nose normal, oropharynx normal Neck trachea midline, no thyromegaly Respiratory + respiratory distress (Mild to moderate shortness of breath at rest) Auscultation: + diminished lung sounds, + crackles (Bibasilar crackles) and + wheezes Cardiovascular Rate/Rhythm: regular rate and regular rhythm Heart Sounds: no murmur Extremities: + edema (Trace edema bilaterally) Gastrointestinal (Abdomen) Inspection/Auscultation: normal bowel sounds; abdomen not distended Percussion/Palpation: + abdomen tender (Mildly tender in the epigastrium) and abdomen soft Psychiatric A+Ox3, euthymic affect Lymphatic no cervical or axillary lymphadenopathy Discharge Data Allergies Allergy/AdvReac Type Severity Reaction Status Date / Time No Known Allergies Allergy Unverified 07/28/20 16:24 Consultations 07/29/20 00:28 ED Decision to Admit Stat Ordered Studies 07/28/20 16:17 CT angio chest PE protocol Stat Hospital Course (1) Respiratory failure, acute and chronic: Secondary to COPD exacerbation/complicated bronchitis hx lung transplant on chronic immunosuppression regimen and antibacterial/antiviral prophylaxis No overt sepsis for now History of alpha-1 antitrypsin deficiency Vanco and Cefepime for antibiotic coverage as per ED provider conversation with [facility] lung transplant specialist. IV Solu-Medrol daily for now [facility] RTC Transfer to [facility] once bed available. Patient accepted for transfer by Dr. Adalberto Pascual. She remained stable as of this morning and was transferred to [facility] under care of Dr. Pascual Hx PE Was on Coumadin before Hypertension, slight elevated Remains at the upper limit of normal Continue current medications DM2, insulin requiring, suboptimal control as of recent hemoglobin A1c of 9.07 July 2020 Basal insulin, ISS BG goal [id number], carb count coverage CRI, creatinine at baseline Creatinine has been normalized at 1.07 as Chronic anemia, hemoglobin at baseline Anemia of chronic disease Hemoglobin stable at 9.8 NHL status post chemotherapy No acute symptoms Chronic pain on narcotics Denies any significant pain Past tobacco abuse DVT prophylaxis with Heparin subcu Full code The patient was transferred to [facility] Total Time Total Time Spent Total Time Spent (In Minutes): 35 minutes Total Time Includes: Examination of the Patient, Discharge Planning, Medication Reconciliation and Communication With Other Providers Discharge Plan Discharge Items Patient Disposition: Transfer Acute Care Hospital Reason For Visit: RESPIRATORY FAILURE Discharge Diagnosis: Acute Respiratory failure Condition on Discharge: Fair Activity: Resume your previous activity Non-emergency contact: Primary Care Provider Call non-emergency contact if: you have any medication questions and your symptoms worsen Follow-up/Referrals: August Esposito MD [Primary Care Provider] - Diet: Regular Addtl Attending Provider Instructions: Was transferred to [facility] All of her home medications are on hold and current in hospital medicatios were continued on transfer. Current Inpatient Medications Acetaminophen (Acetaminophen 325 Mg Tab) 650 mg PO Q4H PRN PRN Reason: Pain or Fever Stop: 08/28/20 03:11 Acyclovir (Acyclovir 400 Mg Tab) 800 mg PO DAILY ANIVAL Stop: 08/28/20 08:59 Last Admin: 07/29/20 08:43 Dose: 800 mg Documented by: Amlodipine Besylate (Amlodipine Besylate 5 Mg Tab) 5 mg PO DAILY ANIVAL Stop: 08/28/20 03:34 Last Admin: 07/29/20 04:03 Dose: 5 mg Documented by: Citalopram Hydrobromide (Citalopram 20 Mg Tab) 20 mg PO DAILY ANIVAL Stop: 08/28/20 08:59 Last Admin: 07/29/20 08:42 Dose: 20 mg Documented by: Dextrose (Dextrose 50% 50 Ml Syringe) 25 - 50 ml IV UD PRN; Protocol PRN Reason: Hypoglycemia Protocol Stop: 08/28/20 03:11 Glucagon (Glucagon For Inj 1 Mg Vial) 1 mg SQ UD PRN; Protocol PRN Reason: Hypoglycemia Protocol Stop: 08/28/20 03:11 Glucose (Glucose 10 Tabs/Tube) 4 - 8 tabs PO UD PRN; Protocol PRN Reason: Hypoglycemia Protocol Stop: 08/28/20 03:11 Glucose (Glucose 40% Gel 15 Gm Tube) 15 - 30 gm PO UD PRN; Protocol PRN Reason: Hypoglycemia Protocol Stop: 08/28/20 03:11 Heparin Sodium (Porcine) (Heparin Sod 5,000 Unit/0.5 Ml Vial) 5,000 units SQ Q8 [facility] Stop: 08/28/20 05:59 Last Admin: 07/30/20 06:02 Dose: 5,000 units Documented by: Heparin Sodium (Porcine) (Heparin 100 Unit/Ml 5ml Flush) 5 ml FLUSH PRN PRN PRN Reason: Flush Stop: 08/29/20 00:38 Hydromorphone HCl (Hydromorphone Hcl 2 Mg Tab) 2 mg PO Q4H PRN PRN Reason: Breakthrough Pain Stop: 08/12/20 03:11 Hydromorphone HCl (Hydromorphone Hcl 2 Mg Tab) 8 mg PO QAM [facility] Stop: 08/12/20 08:59 Last Admin: 07/29/20 08:52 Dose: Not Given Documented by: Hydromorphone HCl (Hydromorphone Inj 0.5 Mg/0.5 Ml Syr) 0.5 mg IV Q6H PRN PRN Reason: Pain Stop: 08/12/20 03:11 Last Admin: 07/29/20 15:18 Dose: 0.5 mg Documented by: Promethazine HCl 12.5 mg/ (Sodium Chloride) 50.5 mls @ 202 mls/hr IV Q6H PRN PRN Reason: Nausea And Vomiting Stop: 08/28/20 03:11 Methylprednisolone 20 mg/ (Syringe) 0.32 mls @ 1.5 mls/min IV DAILY [facility] Stop: 08/29/20 08:59 Cefepime HCl 2,000 mg/ Syringe 20 mls @ 5 mls/min IV Q12H [facility]; Protocol Stop: 08/05/20 07:59 Last Admin: 07/29/20 20:16 Dose: 5 mls/min Documented by: Vancomycin HCl 1,250 mg/ (Sodium Chloride) 275 mls @ 200 mls/hr IV Q24H [facility] Stop: 08/06/20 00:00 Last Infusion: 07/30/20 04:14 Dose: Infused Documented by: Insulin Aspart (Insulin Aspart 100 Units/Ml 3 Ml Pen) 0 units SC ACHS [facility] Stop: 08/28/20 03:11 Last Admin: 07/29/20 20:54 Dose: 2 units Documented by: Insulin Glargine (Insulin Glargine Solostar 100 Units/Ml 3 Ml Pen) 20 units SC BID [facility] Stop: 08/28/20 08:59 Last Admin: 07/29/20 20:55 Dose: 20 units Documented by: Ipratropium [place] (Ipratropium [place] Neb Soln 0.02% 2.5 Ml Vial) 0.5 mg INH Q6R [facility] Stop: 08/28/20 06:59 Last Admin: 07/29/20 19:35 Dose: 0.5 mg Documented by: Levalbuterol HCl (Levalbuterol 1.25mg/0.5ml Neb) 1.25 mg INH Q6R [facility] Stop: 08/28/20 06:59 Last Admin: 07/29/20 19:36 Dose: 1.25 mg Documented by: Miscellaneous (Carbohydrates For Hypoglycemia ) 15 - 30 gm PO UD PRN PRN Reason: Hypoglycemia Protocol Stop: 08/28/20 03:11 Miscellaneous Information (Vancomycin Consult Active) 1 ea N/A UD PRN PRN Reason: Consult Stop: 08/28/20 00:26 Miscellaneous Information (Cefepime Consult Active) 1 ea N/A UD PRN PRN Reason: Consult Stop: 08/28/20 03:16 Pantoprazole Sodium (Pantoprazole 40 Mg Tab) 40 mg PO DAILY [facility] Stop: 08/28/20 08:59 Last Admin: 07/29/20 08:43 Dose: 40 mg Documented by: Tacrolimus (Tacrolimus 0.5 Mg Cap) 0.5 mg PO DAILY [facility] Stop: 08/28/20 08:59 Last Admin: 07/29/20 08:43 Dose: 0.5 mg Documented by: Trimethoprim/Sulfamethoxazole (Sulfamethoxazole/Trimethoprim Ds 800/160mg Tab) 1 tab PO MoWeFr@0900 [facility] Stop: 08/29/20 08:59 Pending Studies at Discharge: No Stand-Alone Forms: [facility] Skilled Items Patient informed of condition?: Yes DNR: No Discharge Level of Care: Other Communicable Disease: No Discharge Prognosis: Stable Lines: None Urinary Catheter: Yes Medications and DC Order Prescriptions: Discontinued magnesium chloride [Mag 64] 64 mg Tablet,Delayed Release (Dr/Ec) 64 mg PO BID RF: 0 prednisone 5 mg tablet 5 mg PO DAILY RF: 0 amlodipine 5 mg tablet 5 mg PO DAILY RF: 0 acyclovir 400 mg tablet 800 mg PO DAILY RF: 0 sulfamethoxazole-trimethoprim 800-160 mg tablet 1 tab PO 3XWK RF: 0 hydromorphone 2 mg tablet 2 mg PO Q12H PRN (Reason: Breakthrough Pain) RF: 0 citalopram 20 mg tablet 20 mg PO DAILY RF: 0 potassium chloride 20 mEq tablet,ER particles/crystals 20 meq PO BID RF: 0 insulin lispro 100 unit/mL insulin pen 8 unit SUBCUT AC RF: 0 Lantus Solostar U-100 Insulin 100 unit/mL (3 mL) insulin pen 12 unit SUBCUT HS RF: 0 hydromorphone 8 mg tablet extended release 24 hr 8 mg PO QAM RF: 0 pantoprazole 40 mg tablet,delayed release (DR/EC) 40 mg PO DAILY RF: 0 tacrolimus 0.5 mg Capsule 0.5 mg PO DAILY RF: 0 Discharge Orders: Discharge Order (Routine); Ordered 07/30/20 Ordered By: Keiko Francisco Admission Data Admit Date/Time: 07/29/20 01:32 Attending Provider: Keiko Francisco Admit Provider: Harish Stephens Primary Care Provider: August Esposito Other Providers: Harish Stephens ; Sujatha Hoffmann Other Interventions: Discharge Summary Assessment (RN) Last Done: 07/30/20 07:07
== END 2020-07-30 08:38 | disposition short-term general hospital (02) | DRG 189 ==
LOC: ED 13:26 → SUATTDRO 07-29 01:32 → 2S 07-29 01:32 → INTOOBSV 07-29 01:32 → 2S 07-29 02:50

== ENCOUNTER 2022-09-17 12:02 | Inpatient (IN) ==
[~2022-09-17 12:02] MED LIST changes: -ASPI81TA28 PO; -BUDE1SUS8; -CALC500C70 PO; -CEFU1TAB35 OR; -CHOL1000 PO; -CITA40TA12 PO; -CYAN1TAB18 PO; -DXY100 PO; -FLUT1AER14 INH; -GLC500 PO; -GUAI1TAB75 PO; -INSU100I23 SQ; -MORP15TA PO; -MORP1TAB12 PO; -OPTIRAY 320 IV PRN; -OXGN; -PANT40TA2 PO; -PLMINSR5 INH; -POLY335019 PO; -POTA10CA28 PO; -PRED20TA2 PO; -RANI300T2 PO; +VANCOMYCIN HCL 750 MG in SODIUM CHLORIDE 0.9% 250 ML IV SCH; -VNTHFA/IN INH; -XPNINS1255 INH; -[UNRECOGNIZED DRUG - CODE]
[2022-09-17] MEDS ORDERED: ONDANSETRON INJ 2 MG/ML 2 ML VIAL IV STA (12:18)
[2022-09-17] MEDS ORDERED: SODIUM CHLORIDE 0.9% 500 ML IV STA (12:18)
--- NOTE | 2022-09-17 12:55 | XRay Report ---
XR chest 1V not portable HISTORY: 67 years-old Female fever- hx lung transplant acute shortness breath with fever COMPARISON: 08/07/2021 TECHNIQUE: PA view of the chest FINDINGS: Cardiomediastinal and hilar silhouettes are within normal limits. Atherosclerosis of the aorta. Sugge sted emphysema. Surgical clips project over the left hilum. No pneumothorax, pleural effusion, airspa ce consolidation or overt pulmonary edema. Degenerative changes of the shoulders and spine. There are a few healed chronic right-sided rib fractures. Surgical clip projects over the abdominal right uppe r quadrant. Cervical spinal fusion hardware. IMPRESSION: No acute process. ACT 112: Negative or not required by law. The above report was generated using voice recognition software. It may contain grammatical, syntax o r spelling errors. Electronically signed by: Tom Landeros M.D. 09/17/2022 12:54 PM
[2022-09-17 12:58] LABS: Basophils # (auto) 0.01 K/uL (0-0.2); Basophils % (auto) 0.1 %; Eosinophils # (auto) 0.01 K/uL (0-0.50); Eosinophils % (auto) 0.1 %; Hematocrit (blood only) 33.2 % (37.0-47.0); Hemoglobin 11.9 g/dl (12.0-16.0); Immature Granulocytes # (auto) 0.05 K/uL (0.01-0.20); Immature Granulocytes % (auto) 0.5 %; Lymphocytes # (auto) 0.65 K/uL (1.2-3.4); Lymphocytes % (auto) 6.5 %; Mean Corpuscular Hemoglobin 30.2 pg (25.0-34.0); Mean Corpuscular Hgb Conc 35.8 g/dL (32.0-36.0); Mean Corpuscular Volume 84.3 fL (80.0-100.0); Mean Platelet Volume 9.4 fL (9.4-12.4); Monocytes # (auto) 0.74 K/uL (0.11-0.59); Monocytes % (auto) 7.4 %; Neutrophils # (auto) 8.54 K/uL (1.40-6.50); Neutrophils % (auto) 85.4 %; Platelet Count 265 K/uL (130-400); RDW Coefficient of Variation 12.2 % (11.5-14.5); RDW Standard Deviation 37.2 fL (36.4-46.3); Red Blood Count 3.94 M/uL (4.20-5.40)
[2022-09-17 13:09] LABS: Alanine Aminotransferase 11 U/L (7-52); Albumin Globulin Ratio 1.2 (0.9-2); Albumin Level 3.8 gm/dl (3.4-5.0); Alkaline Phosphatase 68 U/L (34-104); Anion Gap 12 (3-11); Aspartate Aminotransferase 23 U/L (13-39); BUN Creatinine Ratio 15.9 (10-20); Bilirubin,Total 0.7 mg/dl (0.2-1.0); Blood Urea Nitrogen 30 mg/dl (6-23); Calcium 9.6 mg/dl (8.6-10.3); Carbon Dioxide 25 mmol/L (21-32); Chloride 94 mmol/L (98-107); Est GFR (African American) 31.1 ml/min; Est GFR (Non-African American) 26.8 ml/min; Globulin 3.3 gm/dl (2.5-4.0); Glucose 182 mg/dl (70-99(Fasting)); Sodium 131 mmol/L (136-145); Total Protein 7.1 gm/dl (6.0-8.3)
[2022-09-17 13:18] LABS: Influenza A virus by PCR Negative (Neg); Influenza B virus by PCR Negative (Neg); RSV by PCR Negative (Neg); SARS CoV2 RNA(COVID-19) Ceph NEGATIVE (Negative)
[2022-09-17] MEDS ORDERED: ACETAMINOPHEN 1000 MG/100 ML IV IV STA (14:10)
[2022-09-17] MEDS ORDERED: MAGNESIUM SULFATE / D5W 1 GM/100 ML BAG IV ONE (14:10)
[2022-09-17] MEDS ORDERED: CEFEPIME 2,000 MG/20 ML VIAL IV STA (14:10)
--- NOTE | 2022-09-17 14:44 | Emergency Department Note ---
Impression & Plan Acute dehydration, History of lung transplant, Hyponatremia, Hpvpx-[id number] deficiency, Nausea & vomiting, Fever ED Provider Note NAME: CLAUDE SERRANO AGE: 67 SEX: F : 1955 ARRIVES VIA: Walk-In INFORMANT: Patient, ED PROVIDER(S): Alfonzo Justice MD CHIEF COMPLAINT: Headache, nausea vomiting MEDICAL DECISION MAKING: Patient presents due to concern for headache and associated nausea vomiting in the setting of recent fever and history of lung transplant. IV was established blood work is obtained along with blood cultures lactates and empiric cefepime. Viral swab also ordered. Patient was ordered IV fluids IV Tylenol and IV Zofran. The patient's blood work shows a normal white count with mild anemia hemoglobin 11.9 with normal platelet count. Kidney function with creatinine 1.89. Patient's procalcitonin is not elevated. Chest x-ray without obvious pneumonia. I did speak with on-call transplant physician at [facility] Dr. Dumont. We did review the patient's presentation and blood work findings and he is agreeable that the patient can stay here at this hospital at this time unless something else were to change. He does recommend getting trough levels the following day of the patient's immunosuppressants. Patient was updated of the findings I did speak with the on-call hospital service Dr. Nugent and the patient was admitted to the medicine service Prior /Outside records reviewed: None Differential diagnosis: Viral syndrome, otitis, pharyngitis, pneumonia, influenza, meningitis, urinary t ract infection, sepsis, bacteremia, as well as other pathologies. Diagnostics, as interpreted by me: ECG: None Cardiac monitoring: An order was placed for continuous cardiac monitoring. The monitor shows a rate of 87 with sinus rhythm. Patient was placed on pulse oximetry Medical decision rules: none Imaging studies: See below HPI: Patient presents due to concern for nausea vomiting and headache pain. The patient also complains of generalized abdominal discomfort but without signif icant pain. Patient states that she began feeling unwell last evening. The patient has a decreased appetite has not been able to eat or drink anything today. The patient has had vomiting and associated dry heaves. No blood in the vomit. The patient states that she has had a recent bowel movement. No recent falls or trauma. Patient does have a known history of a left-sided lung transplant completed at [facility] and does follow with her transplant service. This was completed 3 years ago. The patient does take everolimus and Prograf. Patient denies any known sick contacts or recent travel. Patient denies any rash or dysuria. No blood in the urine or stool. Patient states that she has had a recent bowel movement. Patient states she is compliant with her medications with the exception of today given the patient's associated nausea and vomiting. The patient's lung transplant was performed due to alpha-1 antitrypsin deficiency PAST MEDICAL HISTORY: See Below PAST SURGICAL HISTORY: See Below SOCIAL HISTORY: See Below HOME MEDICATIONS: See Below ALLERGIES: See Below VITALS: See Below PHYSICAL EXAMINATION: GENERAL: Mildly ill in appearance but nontoxic. EYE EXAM: Normal conjunctiva. PERRL, no anisocoria and EOM's grossly intact w/o pain. Oropharynx: Absent top dentures, dry mucous membranes. NECK: Supple, no nuchal rigidity, no adenopathy, non-tender. No signs of men ingismus. FROM of the neck with good chin to chest and neck extension. No stridor. LUNGS: Clear to auscultation. Normal chest wall mechanics. HEART: NSR, no MRG. ABDOMEN: Abdomen soft, mild diffuse discomfort without any localizing tenderness, not peritonitic,, no masses, no rebound or guarding. BACK: No CVA TTP. SKIN: No rashes and no bruising. UPPER EXTREMITIES: Upper extremities are grossly normal. LOWER EXTREMITIES: Grossly normal, no edema. NEURO EXAM: A&O x3, cranial nerves II-XII grossly intact, normal speech, moves all 4 extremities. Past Med/Surg History Medical History (Updated 09/18/22 @ 07:39 by Alfonzo Justice MD) Vookt-2-aiucjwxeopz deficiency Chronic back pain Chronic pain syndrome Chronic respiratory failure with hypoxia 4L home O2 COPD (chronic obstructive pulmonary disease) Coronary artery disease Degenerative disc disease Depression Diabetes type 2, controlled GERD (gastroesophageal reflux disease) H/O lymphoma Heart murmur Hyperlipidemia Pulmonary embolism 2008--reason unknown, no blood thinners Surgical History (Updated 09/18/22 @ 07:39 by Alfonzo Justice MD) History of bilateral tubal ligation History of bronchoscopy multiple History of colonoscopy History of dilatation and curettage History of fusion of cervical spine normal ROM History of lumbar spinal fusion History of tonsillectomy History of tooth extraction History of total hysterectomy with bilateral salpingo-oophorectomy (BSO) History of vascular access device left chest APort Hx of arthroscopy of right knee Family History Father Family history of diabetes mellitus Sister Family history of diabetes mellitus Other No family history of adverse response to anesthesia Social History Smoking Status: Former smoker Second Hand Exposure: No; Do You Dip or Chew Tobacco: No; Tobacco Cessation Education Requested by Patient: No Hx Alcohol Use: No Hx Substance Use: No Preferred Language: Gibraltarian Communication Ability: Effective Thread Spooler Required: No Beliefs That Will Affect Care: None Current Living Situation: Spouse Current Living Situation Comment: home with Other Information That Helps Us Care for You: No Feels Safe at Home: Yes Safety Concerns: Feels Safe At This Time Assistive Devices: None Allergies Allergies Allergy/AdvReac Type Severity Reaction Status Date / Time No Known Allergies Allergy Unverified 09/17/22 15:42 Home Meds Home Medications Medication Instructions Recorded Confirmed acyclovir 200 mg capsule 400 mg PO DAILY 09/17/22 09/17/22 albuterol sulfate 90 mcg/actuation 1 - 2 inh inhalation Q6H PRN SOB 09/17/22 09/17/22 aerosol inhaler azathioprine 50 mg tablet 50 mg PO DAILY 09/17/22 09/17/22 azithromycin 250 mg tablet 250 mg PO 3XWK 09/17/22 09/17/22 citalopram 40 mg tablet (Celexa) 40 mg PO DAILY 09/17/22 09/17/22 everolimus (immunosuppressive) 0.5 mg PO Q12H 09/17/22 09/17/22 0.25 mg tablet fluticasone furoate 100 1 inh inhalation DAILY 09/17/22 09/17/22 mcg-vilanterol 25 mcg/dose inhalation powder (Breo Ellipta) hydromorphone 2 mg tablet 2 mg PO Q12H PRN Pain 09/17/22 09/17/22 insulin glargine 100 unit/mL (3 8 unit subcut HS 09/17/22 09/17/22 mL) subcutaneous pen (Lantus Solostar U-100 Insulin) insulin lispro 100 unit/mL 4 unit subcut BIDWMEAL 09/17/22 09/17/22 subcutaneous pen multivitamin 1 tab PO DAILY 09/17/22 09/17/22 oxycodone 15 mg tablet,crush 15 mg PO Q12H 09/17/22 09/17/22 resistant,extended release 12 hr (OxyContin) pantoprazole 40 mg tablet,delayed 40 mg PO DAILY 09/17/22 09/17/22 release potassium chloride 20 mEq 20 meq PO DAILY 09/17/22 09/17/22 tablet,extended release(part/cryst) prednisone 5 mg tablet 5 mg PO BID 09/17/22 09/17/22 sertraline 25 mg tablet See Rx Instructions .Route .COMPLEX 09/17/22 09/17/22 sertraline 50 mg tablet See Rx Instructions .Route .COMPLEX 09/17/22 09/17/22 sulfamethoxazole 400 1 tab PO 3XWK 09/17/22 09/17/22 mg-trimethoprim 80 mg tablet tacrolimus 0.5 mg capsule, 1.5 mg PO QAM 09/17/22 09/17/22 immediate-release tacrolimus 1 mg capsule, 2 mg PO HS 09/17/22 09/17/22 immediate-release Results & Data (ED) Vital Signs Vital Signs - 24 hr 09/17/22 12:04 09/17/22 15:04 09/17/22 15:30 Temperature 38.1 C H Temperature Source Temporal Artery Scan Pulse Rate 106 H 86 86 Pulse Rate from SpO2 Sensor 86 86 Respiratory Rate 18 18 20 Blood Pressure 162/65 H Blood Pressure Mean 97 Pulse Oximetry 97 96 94 Oxygen Delivery Method Room Air Sepsis Recent Fever Within 48 Hours Yes Sepsis New/Unexplained Change in Mental Status No Sepsis Action Taken by Nursing No Action Required Home Medications Current Medication List: was personally reviewed by me Laboratory Data Attestation: I reviewed the patient's lab results. 09/17/22 12:17 09/17/22 12:17 Lab Results 09/17/22 09/17/22 09/17/22 Range/Units 12:17 12:17 12:17 WBC 10.00 (4.8-10.8) K/ul RBC 3.94 L (4.20-5.40) M/uL Hgb 11.9 L (12.0-16.0) g/dl Hct 33.2 L (37.0-47.0) % MCV 84.3 (80.0-100.0) fL MCH 30.2 (25.0-34.0) pg MCHC 35.8 (32.0-36.0) g/dL RDW Std Deviation 37.2 (36.4-46.3) fL RDW Coeff of Jennie 12.2 (11.5-14.5) % Plt Count 265 (130-400) K/uL MPV 9.4 (9.4-12.4) fL Immature Gran % (Auto) 0.5 % Neut % (Auto) 85.4 % Lymph % (Auto) 6.5 % [place] % (Auto) 7.4 % Eos % (Auto) 0.1 % Baso % (Auto) 0.1 % Neut # (Auto) 8.54 H (1.40-6.50) K/uL Lymph # (Auto) 0.65 L (1.2-3.4) K/uL [place] # (Auto) 0.74 H (0.11-0.59) K/uL Eos # (Auto) 0.01 (0-0.50) K/uL Baso # (Auto) 0.01 (0-0.2) K/uL Immature Gran # (Auto) 0.05 (0.01-0.20) K/uL Sodium 131 L (136-145) mmol/L Potassium 4.0 (3.5-5.1) mmol/L Chloride 94 L (98-107) mmol/L Carbon Dioxide 25 (21-32) mmol/L Anion Gap 12 H (3-11) BUN 30 H (6-23) mg/dl Creatinine 1.89 H (0.6-1.2) mg/dl Est Cr Clr Drug Dosing Not Reportable Est GFR ( Amer) 31.1 ml/min Est GFR (Non-Af Amer) 26.8 ml/min BUN/Creatinine Ratio 15.9 (10-20) Glucose 182 H (70-99(Fasting)) mg/dl POC Glucose (70-99) mg/dl Lactate (0.4-2.0) mmol/L Calcium 9.6 (8.6-10.3) mg/dl Total Bilirubin 0.7 (0.2-1.0) mg/dl AST 23 (13-39) U/L ALT 11 (7-52) U/L Alkaline Phosphatase 68 (34-104) U/L Total Protein 7.1 (6.0-8.3) gm/dl Albumin 3.8 (3.4-5.0) gm/dl Globulin 3.3 (2.5-4.0) gm/dl Albumin/Globulin Ratio 1.2 (0.9-2) Procalcitonin SARS-CoV-2 (PCR) NEGATIVE (Negative) Influenza Type A (PCR) Negative (Neg) Influenza Type B (PCR) Negative (Neg) RSV (RT-PCR) Negative (Neg) 09/17/22 09/17/22 09/17/22 Range/Units 12:17 13:59 14:59 WBC (4.8-10.8) K/ul RBC (4.20-5.40) M/uL Hgb (12.0-16.0) g/dl Hct (37.0-47.0) % MCV (80.0-100.0) fL MCH (25.0-34.0) pg MCHC (32.0-36.0) g/dL RDW Std Deviation (36.4-46.3) fL RDW Coeff of Jennie (11.5-14.5) % Plt Count (130-400) K/uL MPV (9.4-12.4) fL Immature Gran % (Auto) % Neut % (Auto) % Lymph % (Auto) % [place] % (Auto) % Eos % (Auto) % Baso % (Auto) % Neut # (Auto) (1.40-6.50) K/uL Lymph # (Auto) (1.2-3.4) K/uL [place] # (Auto) (0.11-0.59) K/uL Eos # (Auto) (0-0.50) K/uL Baso # (Auto) (0-0.2) K/uL Immature Gran # (Auto) (0.01-0.20) K/uL Sodium (136-145) mmol/L Potassium (3.5-5.1) mmol/L Chloride (98-107) mmol/L Carbon Dioxide (21-32) mmol/L Anion Gap (3-11) BUN (6-23) mg/dl Creatinine (0.6-1.2) mg/dl Est Cr Clr Drug Dosing Est GFR ( Amer) ml/min Est GFR (Non-Af Amer) ml/min BUN/Creatinine Ratio (10-20) Glucose (70-99(Fasting)) mg/dl POC Glucose 205 H (70-99) mg/dl Lactate 0.9 (0.4-2.0) mmol/L Calcium (8.6-10.3) mg/dl Total Bilirubin (0.2-1.0) mg/dl AST (13-39) U/L ALT (7-52) U/L Alkaline Phosphatase (34-104) U/L Total Protein (6.0-8.3) gm/dl Albumin (3.4-5.0) gm/dl Globulin (2.5-4.0) gm/dl Albumin/Globulin Ratio (0.9-2) Procalcitonin Cancelled SARS-CoV-2 (PCR) (Negative) Influenza Type A (PCR) (Neg) Influenza Type B (PCR) (Neg) RSV (RT-PCR) (Neg) 09/17/22 Range/Units 14:59 WBC (4.8-10.8) K/ul RBC (4.20-5.40) M/uL Hgb (12.0-16.0) g/dl Hct (37.0-47.0) % MCV (80.0-100.0) fL MCH (25.0-34.0) pg MCHC (32.0-36.0) g/dL RDW Std Deviation (36.4-46.3) fL RDW Coeff of Jennie (11.5-14.5) % Plt Count (130-400) K/uL MPV (9.4-12.4) fL Immature Gran % (Auto) % Neut % (Auto) % Lymph % (Auto) % [place] % (Auto) % Eos % (Auto) % Baso % (Auto) % Neut # (Auto) (1.40-6.50) K/uL Lymph # (Auto) (1.2-3.4) K/uL [place] # (Auto) (0.11-0.59) K/uL Eos # (Auto) (0-0.50) K/uL Baso # (Auto) (0-0.2) K/uL Immature Gran # (Auto) (0.01-0.20) K/uL Sodium (136-145) mmol/L Potassium (3.5-5.1) mmol/L Chloride (98-107) mmol/L Carbon Dioxide (21-32) mmol/L Anion Gap (3-11) BUN (6-23) mg/dl Creatinine (0.6-1.2) mg/dl Est Cr Clr Drug Dosing Est GFR ( Amer) ml/min Est GFR (Non-Af Amer) ml/min BUN/Creatinine Ratio (10-20) Glucose (70-99(Fasting)) mg/dl POC Glucose (70-99) mg/dl Lactate (0.4-2.0) mmol/L Calcium (8.6-10.3) mg/dl Total Bilirubin (0.2-1.0) mg/dl AST (13-39) U/L ALT (7-52) U/L Alkaline Phosphatase (34-104) U/L Total Protein (6.0-8.3) gm/dl Albumin (3.4-5.0) gm/dl Globulin (2.5-4.0) gm/dl Albumin/Globulin Ratio (0.9-2) Procalcitonin < 0.05 SARS-CoV-2 (PCR) (Negative) Influenza Type A (PCR) (Neg) Influenza Type B (PCR) (Neg) RSV (RT-PCR) (Neg) Administered Medications Acetaminophen (Acetaminophen 325 Mg Tab) 650 mg PO Q4H PRN PRN Reason: Pain or Fever Stop: 10/17/22 19:41 Last Admin: 09/18/22 03:51 Dose: 650 mg Documented By: ABL Acyclovir (Acyclovir 200 Mg Cap) 400 mg PO DAILY [facility] Stop: 10/17/22 20:29 Last Admin: 09/17/22 21:21 Dose: 400 mg Documented By: ABL Azathioprine (Azathioprine 50 Mg Tab) 50 mg PO DAILY [facility] Stop: 10/17/22 20:14 Last Admin: 09/17/22 21:21 Dose: 50 mg Documented By: ABL Azithromycin (Azithromycin 250 Mg Tab) 250 mg PO MoWeFr@0900 [facility] Stop: 10/17/22 20:29 Last Admin: 05/19/23 21:21 Dose: 250 mg Documented By: ABL Everolimus (Everolimus 0.5 Mg Tabs) 1 each PO Q12H ANIVAL Stop: 10/17/22 21:29 Last Admin: 09/17/22 21:46 Dose: 1 each Documented By: ABL Co-signed By: KATHE Fluticasone/Vilanterol (Fluticasone/Vilanterol 100/25mcg 14 Puffs/Inhaler) 1 puffs INH DAILY ANIVAL Stop: 10/17/22 19:41 Last Admin: 09/17/22 21:21 Dose: 1 puffs Documented By: ABL Heparin Sodium (Porcine) (Heparin Sod 5,000 Unit/0.5 Ml Vial) 5,000 units SQ Q12H ANIVAL Stop: 10/17/22 20:59 Last Admin: 09/17/22 21:21 Dose: 5,000 units Documented By: ABL Hydromorphone HCl (Hydromorphone Hcl 2 Mg Tab) 2 mg PO Q12H PRN PRN Reason: Pain Stop: 10/01/22 19:41 Last Admin: 09/17/22 21:46 Dose: 2 mg Documented By: ABL Sodium Chloride (Nss) 500 mls @ 80 mls/hr IV .Q6H15M ANIVAL Stop: 10/17/22 19:41 Last Admin: 09/18/22 03:11 Dose: 80 mls/hr Documented By: Infusion: 09/18/22 03:01 Dose: 0 mls/hr Documented By: Admin: 09/17/22 20:46 Dose: 80 mls/hr Documented By: ABL Cefepime HCl 1,000 mg/ Syringe 10 mls @ 5 mls/min IV Q12H ANIVAL; Protocol Stop: 09/20/22 01:59 Last Admin: 09/18/22 03:08 Dose: 5 mls/min Documented By: ABL Insulin Aspart (Insulin Aspart Per Unit Charge) 0 units SC ACHS ANIVAL Stop: 10/17/22 20:59 Last Admin: 09/17/22 21:24 Dose: Not Given Documented By: ABL Insulin Glargine (Lantus Per Unit Charge) 8 units SC HS ANIVAL Stop: 10/17/22 20:59 Last Admin: 09/17/22 21:31 Dose: 8 units Documented By: ABL Co-signed By: JJH Oxycodone HCl (Oxycodone Hcl 15 Mg Tabcr (Oxycontin)) 15 mg PO Q12H ANIVAL Stop: 10/01/22 20:29 Last Admin: 09/17/22 20:37 Dose: 15 mg Documented By: ABL Prednisone (Prednisone 5 Mg Tab) 5 mg PO BID ANIVAL Stop: 10/17/22 20:59 Last Admin: 09/17/22 21:20 Dose: 5 mg Documented By: ABL Tacrolimus (Tacrolimus 1 Mg Cap) 2 mg PO HS ANIVAL Stop: 10/17/22 20:59 Last Admin: 09/17/22 21:21 Dose: 2 mg Documented By: ABL Trimethoprim/Sulfamethoxazole (Sulfa/Trimeth 400/80mg Tab) 1 tab PO MoWeFr@0900 ANIVAL Stop: 10/17/22 20:59 Last Admin: 09/17/22 21:20 Dose: 1 tab Documented By: ABL Discontinued Medications Acetaminophen (Acetaminophen 1000 Mg/100 Ml Iv) 1,000 mg IV NOW STA Stop: 09/17/22 14:11 Last Admin: 09/17/22 14:28 Dose: 1,000 mg Documented By: LEIA Hydromorphone HCl (Hydromorphone Inj 0.5 Mg/0.5 Ml Syr) 0.5 mg IV NOW STA Stop: 09/18/22 00:40 Last Admin: 09/18/22 00:48 Dose: 0.5 mg Documented By: ABL Sodium Chloride (Nss) 500 mls @ 999 mls/hr IV .Q31M STA Stop: 09/17/22 12:48 Last Infusion: 09/17/22 12:53 Dose: 0 mls/hr Documented By: Admin: 09/17/22 12:22 Dose: 999 mls/hr Documented By: RAMONA Cefepime HCl (Maxipime) 2,000 mg in 20 mls @ 5 mls/min IV NOW STA; Protocol Stop: 09/17/22 14:13 Last Admin: 09/17/22 14:28 Dose: 5 mls/min Documented By: LEIA Magnesium Sulfate/Dextrose (Magnesium Sulfate / D5w) 1 gm in 100 mls @ 100 mls/hr IV NOW ONE Stop: 09/17/22 15:09 Last Infusion: 09/17/22 16:10 Dose: 0 mls/hr Documented By: Admin: 09/17/22 15:10 Dose: 100 mls/hr Documented By: ARS Lactated Ringer's (Lr) 1,000 mls @ 80 mls/hr IV .[id number] ANIVAL Stop: 10/17/22 19:41 Last Admin: 09/17/22 20:22 Dose: Not Given Documented By: ABL Vancomycin HCl 1,250 mg/ (Sodium Chloride) 275 mls @ 200 mls/hr IV ONE ONE; Protocol Stop: 09/17/22 21:22 Last Infusion: 09/17/22 22:09 Dose: 0 mls/hr Documented By: Admin: 09/17/22 20:46 Dose: 200 mls/hr Documented By: ABL Acetaminophen (Ofirmev) 1,000 mg in 100 mls @ 400 mls/hr IV NOW STA Stop: 09/18/22 00:03 Last Infusion: 09/18/22 00:09 Dose: 0 mls/hr Documented By: Admin: 09/17/22 23:54 Dose: 400 mls/hr Documented By: ABL Labetalol HCl (Labetalol Hcl Iv 5 Mg/Ml 20ml) 10 mg IV NOW STA Stop: 09/17/22 21:38 Last Admin: 09/17/22 21:49 Dose: 10 mg Documented By: ABL Co-signed By: KATHE Labetalol HCl (Labetalol Hcl Iv 5 Mg/Ml 20ml) 10 mg IV NOW STA Stop: 09/17/22 22:37 Last Admin: 09/17/22 22:46 Dose: 10 mg Documented By: ABL Co-signed By: YECENIA Ondansetron HCl (Ondansetron Inj 2 Mg/Ml 2 Ml Vial) 4 mg IV NOW STA Stop: 09/17/22 12:19 Last Admin: 09/17/22 12:22 Dose: 4 mg Documented By: RAMONA Imaging Data Radiologist's Impression: Chest X-Ray 09/17/22 12:09 XR chest 1V not portable HISTORY: 67 years-old Female fever- hx lung transplant acute shortness breath with fever COMPARISON: 08/07/2021 TECHNIQUE: PA view of the chest FINDINGS: Cardiomediastinal and hilar silhouettes are within normal limits. Atherosclerosis of the aorta. Suggested emphysema. Surgical clips project over the left hilum. No pneumothorax, pleural effusion, airspace consolidation or overt pulmonary edema. Degenerative changes of the shoulders and spine. There are a few healed chronic right-sided rib fractures. Surgical clip projects over the abdominal right upper quadrant. Cervical spinal fusion hardware. IMPRESSION: No acute process. ACT 112: Negative or not required by law. The above report was generated using voice recognition software. It may contain grammatical, syntax or spelling errors. Electronically signed by: Tom Landeros M.D. 09/17/2022 12:54 PM Discharge Plan Visit Data Chief Complaint: Illness Stated Complaint: HEADACHE, NAUSEA, VOMITING, CHILLS ED Provider: Alfonzo Justice Discharge Problem: Acute dehydration, History of lung transplant, Hyponatremia, Wffvn-3-opmixy ypsin deficiency, Nausea & vomiting, Fever Patient Disposition: Admitted As Inpatient Discharge Instructions Interventions: ED Discharge Assessment Last Done: 09/17/22 19:13
--- NOTE | 2022-09-17 17:27 | History & Physical Report ---
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 Presents with headache, generalized weakness and urinary symptoms. She also has left back pain. Febrile on presentation. Hemodynamically stable. Possible pyelonephritis Labs reviewed; no leukocytosis. Urinalysis pending; We will obtain urine culture, blood culture. Started on empiric cefepime and vancomycin. Obtain renal ultrasound Started on normal saline at 80 cc/h. (3) Hyponatremia: Plan: Sodium of 131 on presentation. Likely hypovolemic hyponatremia Started on normal saline Urine osmolarity, urine electrolytes sent for work-up Monitor kidney function (4) History of lung transplant: Plan: History of lung transplant at [facility] on immunosuppression. Discussed was done by ED physician with [facility] transplant team. Recommended to obtain tacrolimus and everolimus level in a.m. On chronic prednisone. Changed to equivalent dose of IV hydrocortisone 20 mg. Dose increased to twice daily twice daily given possible sepsis. Can switch back to oral if patient can tolerate it. Prophylactic antibiotic and acyclovir continued. (5) Mjdav-7-gaevudubeez deficiency: (6) COPD (chronic obstructive pulmonary disease): Plan: Used to be on home O2. Currently saturating on room air. Continue inhalers from home (7) Diabetes type 2, controlled: Plan: Lantus and NovoLog ordered Monitor blood glucose Plan Other conditions; CKD; creatinine slightly increased from baseline. On IV hydration. Avoiding nephrotoxic agents. Chronic opioid use; continue Mood disordercontinue home meds Discussed with at bedside. Answered questions/queries. Full code DVT prophylaxis heparin Time spent evaluating patient, direct bedside care, chart review, placing orders, interpretation of diagnostic studies, discussion with consultants, patient, and family members, as well as other required patient management activities is 90 minutes Please note the above document was generated using voice recognition software. It may contain grammatical, syntax or spelling errors. Any formal questions or concerns about the content, text or information contained within the body of this dictation should be directly addressed to the provider for clarification History of Present Illness Chief Complaint: Generalized weakness for 4 days Fever for 2 days Primary Care Provider: August Esposito MD History obtained from patient and records. Medical history significant for chronic respiratory failure secondary to COPD, history lung transplant on chronic immunosuppression regimen and antibacterial/antiviral prophylaxis (07/2019), history of AAT deficiency, Hx PE status post Coumadin, hypertension, DM2, insulin requiring, mood disorder, NHL status post chemotherapy, CRI (baseline creatinine 1.6), chronic anemia (baseline hemoglobin 10-11), chronic pain on narcotics, past tobacco abuse, history of VRE as per records. Patient presents with generalized weakness, headache, nausea and vomiting for 5 days She also reports low-grade temperature at home. On review of system, patient reports suprapubic pain, increasing urinary frequency and urgency. She also reports pain in her left side of the back She denies vision changes, cough, shortness of breath, abdominal pain or any skin changes. On presentation to the ED, she was hemodynamically stable, febrile to 38.1 C and saturating room air. Lab work revealed no leukocytosis. Hemoglobin was at baseline. She was found to have hyponatremia with sodium of 131. BUN and creatinine slightly elevated from baseline. Discussion was done by ED physician with [facility] transplant team; did not recommend transfer. Recommended infectious work-up and to obtain tacrolimus and everolimus levels in a.m. Allergies Allergy/AdvReac Type Severity Reaction Status Date / Time No Known Allergies Allergy Unverified 09/17/22 15:42 Home Medications Medication Instructions Recorded Confirmed Type acyclovir 200 mg capsule 400 mg PO DAILY 09/17/22 09/17/22 History albuterol sulfate 90 mcg/actuation 1 - 2 inh inhalation Q6H PRN SOB 09/17/22 09/17/22 History aerosol inhaler azathioprine 50 mg tablet 50 mg PO DAILY 09/17/22 09/17/22 History azithromycin 250 mg tablet 250 mg PO 3XWK 09/17/22 09/17/22 History citalopram 40 mg tablet (Celexa) 40 mg PO DAILY 09/17/22 09/17/22 History everolimus (immunosuppressive) 0.5 mg PO Q12H 09/17/22 09/17/22 History 0.25 mg tablet fluticasone furoate 100 1 inh inhalation DAILY 09/17/22 09/17/22 History mcg-vilanterol 25 mcg/dose inhalation powder (Breo Ellipta) hydromorphone 2 mg tablet 2 mg PO Q12H PRN Pain 09/17/22 09/17/22 History insulin glargine 100 unit/mL (3 8 unit subcut HS 09/17/22 09/17/22 History mL) subcutaneous pen (Lantus Solostar U-100 Insulin) insulin lispro 100 unit/mL 4 unit subcut BIDWMEAL 09/17/22 09/17/22 History subcutaneous pen multivitamin 1 tab PO DAILY 09/17/22 09/17/22 History oxycodone 15 mg tablet,crush 15 mg PO Q12H 09/17/22 09/17/22 History resistant,extended release 12 hr (OxyContin) pantoprazole 40 mg tablet,delayed 40 mg PO DAILY 09/17/22 09/17/22 History release potassium chloride 20 mEq 20 meq PO DAILY 09/17/22 09/17/22 History tablet,extended release(part/cryst) prednisone 5 mg tablet 5 mg PO BID 09/17/22 09/17/22 History sertraline 25 mg tablet See Rx Instructions .Route .COMPLEX 09/17/22 09/17/22 History sertraline 50 mg tablet See Rx Instructions .Route .COMPLEX 09/17/22 09/17/22 History sulfamethoxazole 400 1 tab PO 3XWK 09/17/22 09/17/22 History mg-trimethoprim 80 mg tablet tacrolimus 0.5 mg capsule, 1.5 mg PO QAM 09/17/22 09/17/22 History immediate-release tacrolimus 1 mg capsule, 2 mg PO HS 09/17/22 09/17/22 History immediate-release Past Med/Surg History Medical History (Updated 09/17/22 @ 17:25 by Juan Luis Nugent MD) [id number]-[id number] deficiency Chronic back pain Chronic pain syndrome Chronic respiratory failure with hypoxia 4L home O2 COPD (chronic obstructive pulmonary disease) Coronary artery disease Degenerative disc disease Depression Diabetes type 2, controlled GERD (gastroesophageal reflux disease) H/O lymphoma Heart murmur Hyperlipidemia Pulmonary embolism 2008--reason unknown, no blood thinners Surgical History (Updated 07/28/20 @ 22:16 by Luis Alfredo Fuentes MD) History of bilateral tubal ligation History of bronchoscopy multiple History of colonoscopy History of dilatation and curettage History of fusion of cervical spine normal ROM History of lumbar spinal fusion History of tonsillectomy History of tooth extraction History of total hysterectomy with bilateral salpingo-oophorectomy (BSO) History of vascular access device left chest APort Hx of arthroscopy of right knee Family History Father Family history of diabetes mellitus Sister Family history of diabetes mellitus Other No family history of adverse response to anesthesia Social History Smoking Status: Never smoker Second Hand Exposure: Yes ( smokes/parents smoked); Do You Dip or Chew Tobacco: No; Hx Alcohol Use: No Hx Substance Use: No Preferred Language: Irish Communication Ability: Effective 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 Normal insp/exp effort, no accessory muscle use Cardiovascular: RRR, no murmur, no edema Vessels: no JVD or carotid bruit Chest: normal inspection of chest Abdomen: Suprapubic tenderness present. Left costophrenic angle tenderness present Musculoskeletal: no cyanosis or clubbing, extremities motor strength 5/5 Skin: no rashes, warm and dry normal turgor Neurologic: PERRL, EOMI, accommodation nl, no face palsy, no dysarthria CN's II- XI intact bilaterally and moves all extremities Psychiatric: A+Ox3, euthymic affect Lymphatic: no cervical or axillary lymphadenopathy : deferred Results & Data Results & Data Vital Signs (Past 12 Hours) Vital Signs Temp Pulse Pulse Resp BP BP Pulse Ox 09/17/22 17:09 82 20 138/100 94 09/17/22 15:58 86 09/17/22 12:04 38.1 C H 106 H 18 162/65 H 97 O2 Del Method 09/17/22 17:09 Room Air 09/17/22 15:58 09/17/22 12:04 Room Air Laboratory Results Laboratory Results WBC 10.00 K/ul (4.8-10.8) 09/17/22 12:17 RBC 3.94 M/uL (4.20-5.40) L 09/17/22 12:17 Hgb 11.9 g/dl (12.0-16.0) L 09/17/22 12:17 Hct 33.2 % (37.0-47.0) L 09/17/22 12:17 MCV 84.3 fL (80.0-100.0) 09/17/22 12:17 MCH 30.2 pg (25.0-34.0) 09/17/22 12:17 MCHC 35.8 g/dL (32.0-36.0) 09/17/22 12:17 RDW Std Deviation 37.2 fL (36.4-46.3) 09/17/22 12:17 RDW Coeff of Jennie 12.2 % (11.5-14.5) 09/17/22 12:17 Plt Count 265 K/uL (130-400) 09/17/22 12:17 MPV 9.4 fL (9.4-12.4) 09/17/22 12:17 Immature Gran % (Auto) 0.5 % 09/17/22 12:17 Neut % (Auto) 85.4 % 09/17/22 12:17 Lymph % (Auto) 6.5 % 09/17/22 12:17 [place] % (Auto) 7.4 % 09/17/22 12:17 Eos % (Auto) 0.1 % 09/17/22 12:17 Baso % (Auto) 0.1 % 09/17/22 12:17 Neut # (Auto) 8.54 K/uL (1.40-6.50) H 09/17/22 12:17 Lymph # (Auto) 0.65 K/uL (1.2-3.4) L 09/17/22 12:17 [place] # (Auto) 0.74 K/uL (0.11-0.59) H 09/17/22 12:17 Eos # (Auto) 0.01 K/uL (0-0.50) 09/17/22 12:17 Baso # (Auto) 0.01 K/uL (0-0.2) 09/17/22 12:17 Immature Gran # (Auto) 0.05 K/uL (0.01-0.20) 09/17/22 12:17 Sodium 131 mmol/L (136-145) L 09/17/22 12:17 Potassium 4.0 mmol/L (3.5-5.1) 09/17/22 12:17 Chloride 94 mmol/L (98-107) L 09/17/22 12:17 Carbon Dioxide 25 mmol/L (21-32) 09/17/22 12:17 Anion Gap 12 (3-11) H 09/17/22 12:17 BUN 30 mg/dl (6-23) H 09/17/22 12:17 Creatinine 1.89 mg/dl (0.6-1.2) H 09/17/22 12:17 Est Cr Clr Drug Dosing Not Reportable 09/17/22 12:17 Est GFR ( Amer) 31.1 ml/min 09/17/22 12:17 Est GFR (Non-Af Amer) 26.8 ml/min 09/17/22 12:17 BUN/Creatinine Ratio 15.9 (10-20) 09/17/22 12:17 Glucose 182 mg/dl (70-99(Fasting)) H 09/17/22 12:17 POC Glucose 205 mg/dl (70-99) H 09/17/22 13:59 Lactate 0.9 mmol/L (0.4-2.0) 09/17/22 14:59 Calcium 9.6 mg/dl (8.6-10.3) 09/17/22 12:17 Total Bilirubin 0.7 mg/dl (0.2-1.0) 09/17/22 12:17 AST 23 U/L (13-39) 09/17/22 12:17 ALT 11 U/L (7-52) 09/17/22 12:17 Alkaline Phosphatase 68 U/L (34-104) 09/17/22 12:17 Total Protein 7.1 gm/dl (6.0-8.3) 09/17/22 12:17 Albumin 3.8 gm/dl (3.4-5.0) 09/17/22 12:17 Globulin 3.3 gm/dl (2.5-4.0) 09/17/22 12:17 Albumin/Globulin Ratio 1.2 (0.9-2) 09/17/22 12:17 Procalcitonin < 0.05 ng/ml (0-0.5) 09/17/22 14:59 SARS-CoV-2 (PCR) NEGATIVE (Negative) 09/17/22 12:17 Influenza Type A (PCR) Negative (Neg) 09/17/22 12:17 Influenza Type B (PCR) Negative (Neg) 09/17/22 12:17 RSV (RT-PCR) Negative (Neg) 09/17/22 12:17 Impressions Chest X-Ray 09/17/22 12:09 XR chest 1V not portable HISTORY: 67 years-old Female fever- hx lung transplant acute shortness breath with fever COMPARISON: 08/07/2021 TECHNIQUE: PA view of the chest FINDINGS: Cardiomediastinal and hilar silhouettes are within normal limits. Atherosclerosis of the aorta. Suggested emphysema. Surgical clips project over the left hilum. No pneumothorax, pleural effusion, airspace consolidation or overt pulmonary edema. Degenerative changes of the shoulders and spine. There are a few healed chronic right-sided rib fractures. Surgical clip projects over the abdominal right upper quadrant. Cervical spinal fusion hardware. IMPRESSION: No acute process. ACT 112: Negative or not required by law. The above report was generated using voice recognition software. It may contain grammatical, syntax or spelling errors. Electronically signed by: Tom Landeros M.D. 09/17/2022 12:54 PM Code Status & VTE Plan VTE Prophylaxis Plan VTE Prophylaxis will be ordered: Yes
--- NOTE | 2022-09-17 18:28 | Ultrasound Report ---
RENAL ULTRASOUND HISTORY: Acute right flank pain Right costophrenic angle tenderness COMPARISON: None. FINDINGS: Right kidney: 9.0 cm. No hydronephrosis. Normal corticomedullary differentiation and cortical thickne ss. Left kidney: 10.1 cm. No hydronephrosis. 1.57 m cyst of the upper pole. 5 mm nonobstructing calculus of the inferior pole. Normal corticomedullary differentiation and cortical thickness. Bladder: Partial distention of the urinary bladder with mild circumferential wall thickening The bila teral ureteral jets were identified. IMPRESSION: 1. 5 mm nonobstructing left renal calculus. 2. No hydronephrosis. 3. Partial distention of the urinary bladder. ACT 112: Negative or not required by law. Electronically signed by: Tom Landeros M.D. 09/17/2022 6:27 PM
[2022-09-17] MEDS ORDERED: PHARMACY GLYCEMIC MGMT CONSULT PRN (19:42)
[2022-09-17] MEDS ORDERED: DEXTROSE 50% 50 ML SYRINGE IV PRN (19:42)
[2022-09-17] MEDS ORDERED: GLUCOSE 10 TAB/TUBE PO PRN (19:42)
[2022-09-17] MEDS ORDERED: VANCOMYCIN HCL 2,000 MG in SODIUM CHLORIDE 0.9% 500 ML IV ONE (19:42)
[2022-09-17] MEDS ORDERED: ALBUTEROL HFA 8 GM INHALER INH PRN (19:42)
[2022-09-17] MEDS ORDERED: VANCOMYCIN CONSULT ACTIVE PRN (19:42)
[2022-09-17] MEDS ORDERED: CEFEPIME 2,000 MG in SYRINGE 0 ML IV SCH (19:42)
[2022-09-17] MEDS ORDERED: GLUCAGON FOR INJ 1 MG VIAL SQ PRN (19:42)
[2022-09-17] MEDS ORDERED: CARBOHYDRATES FOR HYPOGLYCEMIA PO PRN (19:42)
[2022-09-17] MEDS ORDERED: GLUCOSE 40% GEL 15 GM TUBE PO PRN (19:42)
[2022-09-17] MEDS ORDERED: LACTATED RINGER'S 1,000 ML IV SCH (19:42)
[2022-09-17] MEDS ORDERED: POLYETHYLENE (MIRALAX) 17 GM PACK PO PRN (19:42)
[2022-09-17] MEDS ORDERED: VANCOMYCIN HCL 1,250 MG in SODIUM CHLORIDE 0.9% 250 ML IV ONE (20:00)
[2022-09-17] MEDS: oxyCODONE HCL 15 MG TABCR (OxyCONTIN) PO SCH (20:37)
[2022-09-17] MEDS: SODIUM CHLORIDE 0.9% 500 ML IV SCH (20:46)
[2022-09-17] MEDS ORDERED: PNEUMOCOCCAL POLYSACCHARIDES 25 MCG/0.5 ML VIAL/SYR IM ONE (20:59)
[2022-09-17] MEDS ORDERED: LANTUS PER UNIT CHARGE SC SCH (21:00)
[2022-09-17] MEDS ORDERED: HYDROCORTISONE SOD SUCCINATE 100 MG/2 ML VIAL IV SCH (21:00)
[2022-09-17] MEDS ORDERED: NON-FORMULARY MEDICATION (Insulin Glargine [Lantus Solostar U-100 Insulin] 100 unit/mL (3 SQ SCH (21:00)
[2022-09-17] MEDS: SULFA/TRIMETH 400/80MG TAB PO SCH (21:20)
[2022-09-17] MEDS: predniSONE 5 MG TAB PO SCH (21:20)
[2022-09-17] MEDS: FLUTICASONE/VILANTEROL 100/25MCG 14 PUFFS/INHALER INH SCH (21:21)
[2022-09-17] MEDS: HEPARIN SOD 5,000 UNIT/0.5 ML VIAL SQ SCH (21:21)
[2022-09-17] MEDS: AZITHROMYCIN 250 MG TAB PO SCH (21:21)
[2022-09-17] MEDS: azaTHIOprine 50 MG TAB PO SCH (21:21)
[2022-09-17] MEDS: ACYCLOVIR 200 MG CAP PO SCH (21:21)
[2022-09-17] MEDS: TACROLIMUS 1 MG CAP PO SCH (21:21)
[2022-09-17] MEDS: INSULIN ASPART PER UNIT CHARGE SC SCH (21:24)
[2022-09-17] MEDS ORDERED: LABETALOL HCL IV 5 MG/ML 20ML IV STA ×2 (21:37→22:36)
[2022-09-17] MEDS: EVEROLIMUS 0.5 MG PO SCH (21:46)
[2022-09-17] MEDS: HYDROmorphone HCL 2 MG TAB PO PRN (21:46)
[2022-09-17 22:27] LABS: Appearance Urine Clear (Clear); Bacteria Urine Automated Negative (Negative); Bilirubin Urine Negative (Negative); Blood Urine Trace (Negative); Color Urine Yellow; Glucose Urine UA Negative (Negative); Ketones Urine 1+ (Negative); Leukocyte Esterase Urine Negative (Negative); Nitrite Urine Negative (Negative); Protein Urine 3+ (Negative); RBC Urine Automated 0-4 /hpf (0-4); Specific Gravity Urine 1.015 (1.000-1.030); Urobilinogen Urine Negative (Negative)
[2022-09-17 22:42] LABS: Urine Potassium 43.4 mmol/L
[2022-09-17 22:50] LABS: Creatinine Urine Random 65.1 mg/dl
[2022-09-17] MEDS ORDERED: ACETAMINOPHEN 1,000 MG/100 ML VIAL IV STA (23:49)
[2022-09-18] MEDS ORDERED: HYDROmorphone INJ 0.5 MG/0.5 ML SYR IV STA (00:39)
--- NOTE | 2022-09-18 01:44 | CT Scan Report ---
Exam(s): CT HEAD Without Contrast EXAM: CT Head Without Intravenous Contrast CLINICAL HISTORY: Reason for exam: severe headache. TECHNIQUE: Axial computed tomography images of the head/brain without intravenous contrast. CTDI is 35.65 mGy and DLP is 547.75 mGy-cm. Automated exposure control was utilized for the study. A dose lowering technique was utilized adhering to the principles of ALARA. COMPARISON: Dated 10/14/09 FINDINGS: Brain: The cerebral and cerebellar sulci are mildly prominent consistent with mild brain atrophy. There are a few areas of decreased attenuation in the deep cerebral white matter consistent with mild small vessel ischemic/degenerative changes. No hemorrhage. Ventricles: Unremarkable. No ventriculomegaly. Bones/joints: Unremarkable. No acute fracture. Soft tissues: Unremarkable. Vasculature: Atherosclerotic disease. Sinuses: Unremarkable as visualized. No acute sinusitis. Mastoid air cells: Unremarkable as visualized. No mastoid effusion. IMPRESSION: No acute findings in the head/brain. Electronically signed by: Robin Dumont MD 09/18/22 01:43 AM
[2022-09-18] MEDS: CEFEPIME 1,000 MG in SYRINGE 0 ML IV SCH ×2 (03:08→13:24)
[2022-09-18] MEDS: SODIUM CHLORIDE 0.9% 500 ML IV SCH ×2 (03:11→09:04)
[2022-09-18] MEDS: ACETAMINOPHEN 325 MG TAB PO PRN ×2 (03:51→07:54)
[2022-09-18 05:49] LABS: Hematocrit (blood only) 28.3 % (37.0-47.0); Hemoglobin 9.7 g/dl (12.0-16.0); Mean Corpuscular Hemoglobin 30.1 pg (25.0-34.0); Mean Corpuscular Hgb Conc 34.3 g/dL (32.0-36.0); Mean Corpuscular Volume 87.9 fL (80.0-100.0); Mean Platelet Volume 9.1 fL (9.4-12.4); Platelet Count 173 K/uL (130-400); RDW Coefficient of Variation 12.5 % (11.5-14.5); RDW Standard Deviation 40.3 fL (36.4-46.3); Red Blood Count 3.22 M/uL (4.20-5.40); White Blood Count 7.79 K/ul (4.8-10.8)
[2022-09-18 06:04] LABS: Albumin Globulin Ratio 1.1 (0.9-2); Albumin Level 3.1 gm/dl (3.4-5.0); BUN Creatinine Ratio 18.2 (10-20); Bilirubin,Total 0.5 mg/dl (0.2-1.0); Calcium 8.3 mg/dl (8.6-10.3); Creatinine Clr Calc Pharmacy 23.5 ml/min; Est GFR (African American) 32.7 ml/min; Est GFR (Non-African American) 28.2 ml/min; Globulin 2.7 gm/dl (2.5-4.0); Potassium 4.2 mmol/L (3.5-5.1); Total Protein 5.8 gm/dl (6.0-8.3)
[2022-09-18 06:19] LABS: Basophils # (auto) 0.03 K/uL (0-0.2); Basophils % (auto) 0.4 %; Echinocytes 1+; Eosinophils # (auto) 0.01 K/uL (0-0.50); Eosinophils % (auto) 0.1 %; Immature Granulocytes # (auto) 0.02 K/uL (0.01-0.20); Immature Granulocytes % (auto) 0.3 %; Lymphocytes # (auto) 0.29 K/uL (1.2-3.4); Lymphocytes % (auto) 3.7 %; Monocytes # (auto) 0.39 K/uL (0.11-0.59); Neutrophils # (auto) 7.05 K/uL (1.40-6.50); Neutrophils % (auto) 90.5 %; Ovalocytes 1+
[2022-09-18 07:44] LABS: Estimated Average Glucose 151 mg/dl; Hemoglobin A1C 6.9 % (4.5-5.6)
[2022-09-18] MEDS: oxyCODONE HCL 15 MG TABCR (OxyCONTIN) PO SCH ×2 (08:24→20:05)
[2022-09-18] MEDS: FLUTICASONE/VILANTEROL 100/25MCG 14 PUFFS/INHALER INH SCH (08:25)
[2022-09-18] MEDS: EVEROLIMUS 0.5 MG PO SCH ×2 (08:25→20:05)
[2022-09-18] MEDS: TACROLIMUS 0.5 MG CAP PO SCH (08:26)
[2022-09-18] MEDS: azaTHIOprine 50 MG TAB PO SCH (08:27)
[2022-09-18] MEDS: MULTIVITAMIN TAB PO SCH (08:28)
[2022-09-18] MEDS: POTASSIUM CHLORIDE CRTAB 20 MEQ TABCR PO SCH (08:28)
[2022-09-18] MEDS: PANTOprazole 40 MG TAB PO SCH (08:28)
[2022-09-18] MEDS: CITALOPRAM 40 MG TAB PO SCH (08:28)
[2022-09-18] MEDS: predniSONE 5 MG TAB PO SCH ×2 (08:28→20:06)
[2022-09-18] MEDS: HEPARIN SOD 5,000 UNIT/0.5 ML VIAL SQ SCH ×2 (08:29→20:05)
[2022-09-18] MEDS ORDERED: VANCOMYCIN HCL 750 MG in SODIUM CHLORIDE 0.9% 250 ML IV SCH (09:00)
[2022-09-18] MEDS ORDERED: SERTRALINE HCL 50 MG TABLET PO SCH (09:00)
[2022-09-18] MEDS: INSULIN ASPART PER UNIT CHARGE SC SCH ×4 (09:11→20:51)
--- NOTE | 2022-09-18 09:23 | Pharmacy Report ---
Pharmacy PK ABX Note - Date of Service September 18, 2022 - Assessment and Plan Assessment 67 year old F receiving vancomycin and cefepime empirically for treatment of sepsis secondary to suspected urinary source. Immunocompromised at baseline. Blood and urine cultures pending. Renal function at baseline. Day # 2 of antimicrobial therapy. Plan Vancomycin * Loading dose: 1250 mg IV x 1 * Maintenance dose: 750 mg IV every 24 hours * Regimen is predicted to achieve target AUC/HAYLEE of 400-600 mg/L.hr * Will obtain a level around steady state if vancomycin continued. Pharmacy will continue to follow and will adjust dose/frequency as necessary. Thank you. Pharmacy has transitioned to AUC monitoring for vancomycin. AUC/HAYLEE is the preferred PK/PD target and is associated with decreased risk of nephrotoxicity compared to traditional trough targets.
[2022-09-18] MEDS: ACYCLOVIR 200 MG CAP PO SCH (09:55)
[2022-09-18] MEDS: HYDROmorphone HCL 2 MG TAB PO PRN (09:56)
--- NOTE | 2022-09-18 11:49 | Pharmacy Report ---
Pharmacy Glycemic Short Note 2 - Date of Service September 18, 2022 - Glycemic Short BSG Results (Last 24 hours): 09/17/22 09/17/22 09/17/22 12:17 13:59 19:51 Glucose 182 H POC Glucose 205 H 146 H 09/18/22 09/18/22 09/18/22 05:16 07:34 11:40 Glucose 172 H POC Glucose 169 H 158 H OUTPATIENT ANTIDIABETIC REGIMEN: * Lantus 8 units SC HS * Novolog 4 units SC BIDM HbA1c: 6.9% (09/18/22) ASSESSMENT: * PW is a 67 year old female admitted on 09/17 w/ headache, nausea, and vomiting * Hx of lung transplant and COPD - on chronic prednisone 5 mg PO BID * Weight-based stress of 2 Novolog started with home Lantus - will continue for now * Empiric broad spectrum antibiotics ordered at this time PLAN FOR INPATIENT GLYCEMIC CONTROL: * Basal insulin * Lantus 8 units SQ HS * Bolus insulin * NovoLog per scale ACHS or Q6hrs while NPO * Goal Range: Low 110 mg/dL - High 140 mg/dL * Correction Factor: 40 mg/dL/unit * Nutritional / Prandial insulin per carb ratio of 1 unit per 14 grams CHO consumed
[2022-09-18] MEDS ORDERED: LANTUS PER UNIT CHARGE SC ONE (12:00)
[2022-09-18] MEDS ORDERED: methylPREDNISolone 40 MG in SYRINGE 0 ML IV ONE (12:00)
[2022-09-18] MEDS ORDERED: diphenhydrAMINE HCL 25 MG/10 ML UDC PO ONE (12:05)
--- NOTE | 2022-09-18 13:05 | CT Scan Report ---
THORACIC SPINE CT CT DOSE: 1088.76 mGy.cm HISTORY: Back Pain TECHNIQUE: Multiaxial CT images of the thoracic spine were performed and reformatted in the sagittal and coronal plane without the use of contrast. A dose lowering technique was utilized adhering to th e principles of ALARA. COMPARISON: Chest CTA 07/28/2020. FINDINGS: Emphysema. No pneumothorax. There is a stable 4 mm nodule within the right lower lobe on im age 89. This is likely benign given the long-term stability. Cervical spinal fusion hardware is note d. There is multinodular thyroid gland. There is a small hiatus hernia. Paravertebral soft tissues ar e unremarkable. Calcified plaque within the normal caliber thoracic aorta. No acute fracture or sublu xation within the thoracic spine. There is mild disc space narrowing and small endplate osteophytes s een throughout the majority of the thoracic spine. No significant central canal narrowing by CT techn ique. IMPRESSION: 1. No acute fractures within the thoracic spine. 2. Mild degenerative disc disease throughout the thoracic spine. 3. Cervical spinal fusion hardware is noted. 4. Additional findings as described above. ACT 112: Negative or not required by law. Electronically signed by: Emory Umana M.D. 09/18/2022 1:02 PM
--- NOTE | 2022-09-18 13:11 | CT Scan Report ---
LUMBAR SPINE CT CT DOSE: HISTORY: Back Pain TECHNIQUE: Multiaxial CT images of the lumbar spine were performed and reformatted in the sagittal an d coronal plane without the use of contrast. A dose lowering technique was utilized adhering to the principles of ALARA. COMPARISON: Lumbar spine CT 08/21/2008. FINDINGS: There is a 6 mm stone within the left kidney. Calcification within the right renal sinus is likely vascular. No hilar nephrosis. Calcified plaque within the normal caliber abdominal aorta. Par avertebral soft tissues are unremarkable. The visualized sacrum is intact. There is posterior decompr ession fusion from L4 through S1 with pedicle screws and rods. The hardware appears intact. No abnorm al periprosthetic lucency. The L4-S1 vertebral bodies remain fused. There are mild superior endplate compression fractures at L1 and L3 demonstrating up to 30% loss of height centrally. No associated re tropulsion. These are technically age indeterminate but likely old. No paravertebral edema to suggest an acute injury. Broad-based posterior disc bulge with ligamentum and facet hypertrophy at the L3-L4 level resulting in moderate central canal narrowing. There is mild central canal narrowing at L2-L3. IMPRESSION: 1. Mild superior endplate compression fractures at L1 and L3. These are technically age indeterminate but likely old. No associated retropulsion. 2. Mild central canal narrowing at L2-L3 and moderate central canal narrowing at L3-L4 due to the deg enerative changes. 3. Postoperative changes as described above. 4. Left-sided nephrolithiasis. No hydronephrosis. ACT 112: Negative or not required by law. Electronically signed by: Emory Umana M.D. 09/18/2022 1:08 PM
[2022-09-18] MEDS: TAMSULOSIN HCL 0.4 MG CAP PO SCH (13:22)
[2022-09-18] MEDS ORDERED: hydrALAZINE HCL 20 MG/ML VIAL IV PRN (16:07)
--- NOTE | 2022-09-18 16:27 | Hospitalist Progress Note ---
Date of Service September 18, 2022 Assessment & Plan (1) UTI (urinary tract infection): (2) Sepsis: Plan: Suspected Sepsis due to UTI--Less likely H/O lung transplant on immunosuppressive therapy Urinary retention --Renal USD:5 mm nonobstructing left renal calculus. No hydronephrosis. Partial distention of the urinary bladder. -- Urine analysis not suggestive of UTI Blood/Urine cultures pending Empirically received vancomycin, cefepime Started on Flomax Mccartney catheter placed Consider urology evaluation if needed Hypertensive urgency Headache likely due to above --CT head:No acute findings in the head/brain. Pain likely contributing Not on any hypertensives at home Started on amlodipine, also on Flomax as able IV hydralazine as needed Lumbago Compression fractures L1 and L3 --Lumbar CT:Mild superior endplate compression fractures at L1 and L3. These are technically age indeterminate but likely old. No associated retropulsion. Mild central canal narrowing at L2-L3 and moderate central canal narrowing at L3-L4 due to the degenerative changes. Postoperative changes as described above. Left-sided nephrolithiasis. No hydronephrosis. --Thoracic CT:No acute fractures within the thoracic spine. Mild degenerative disc disease throughout the thoracic spine. Cervical spinal fusion hardware is noted. -- Pain control Fall precautions PT OT as able Orthopedics consulted (3) Hyponatremia: Plan: Sodium of 131 on presentation. Likely hypovolemic hyponatremia Sertraline likely contributing as well Received IV fluids Monitor sodium levels (4) History of lung transplant: Plan: H/O lung transplant at [facility] on immunosuppression. ED physician with [facility] transplant team. Recommended to obtain tacrolimus and everolimus levels--Pending On chronic prednisone. Prophylactic Bactrim and acyclovir continued. (5) Jitag-8-wwobmsjgnth deficiency: (6) COPD (chronic obstructive pulmonary disease): Plan: Used to be on home O2. Currently saturating on room air. Continue inhalers (7) Diabetes type 2, controlled: Plan: Lantus and NovoLog ordered Monitor blood glucose Plan Other conditions; CKD; creatinine slightly increased from baseline. Received IV fluids. Avoiding nephrotoxic agents. Chronic opioid use; continue Mood disordercontinue home meds DVT Px: Heparin SQ Code Status Full code Admission and Anticipated Discharge Date Admission Date: September 17, 2022 Subjective Patient is seen and examined at bedside States having headache, nausea Also states having urinary retention, dysuria Admits to having spine surgery in the past Denies any chest pain, dyspnea Discussed with patient's family at bedside Review of Systems Review of Systems: All systems reviewed & are unremarkable except as noted in Subjective Physical Exam Physical Exam: Physical Exam: Vitals signs as noted above General Appearance:Moderately built and nourished, no apparent distress Head: normocephalic, Atraumatic Eyes: normal inspection, EOMI Neck: supple, Trachea midline Respiratory/Chest: Normal breath sounds, CTA, No accessory muscle use Cardiovascular: S1, S2, No murmur Abdomen/GI:Soft, Non tender, Bowel sounds present Back:+tenderness-mid back/Para vertebral Extremities/Musculoskeletal:normal inspection, no edema Neurologic/Psych:AAOX3, grossly no focal neurological deficits, Chronic tremor Skin: normal color, warm Results & Data Results & Data Vital Signs (Past 12 Hours) Vital Signs Temp Pulse Pulse Resp BP Pulse Ox O2 Del Method 09/18/22 15:48 37.2 C 87 18 191/69 H 94 Room Air 09/18/22 12:10 36.6 C 80 20 151/70 H 96 Room Air 09/18/22 08:02 36.8 C 70 18 160/55 H 95 Room Air 09/18/22 07:13 68 Laboratory Results Short CBC 09/18/22 Range/Units 05:16 WBC 7.79 (4.8-10.8) K/ul Hgb 9.7 L (12.0-16.0) g/dl Hct 28.3 L (37.0-47.0) % Plt Count 173 (130-400) K/uL BMP 09/18/22 05:16 Sodium 131 L Potassium 4.2 Chloride 99 Carbon Dioxide 24 BUN 33 H Creatinine 1.81 H Glucose 172 H Calcium 8.3 L Liver Function 09/18/22 Range/Units 05:16 Total Bilirubin 0.5 (0.2-1.0) mg/dl AST 18 (13-39) U/L ALT 8 (7-52) U/L Alkaline Phosphatase 52 (34-104) U/L Albumin 3.1 L (3.4-5.0) gm/dl Urine 09/17/22 Range/Units Unknown Urine Color Yellow Urine Appearance Clear (Clear) Urine pH 6.0 (4.5-7.5) Ur Specific [place] 1.015 (1.000-1.030) Urine Protein 3+ H (Negative) Urine Glucose (UA) Negative (Negative)
[2022-09-18] MEDS: ACETAMINOPHEN 1,000 MG/100 ML VIAL IV PRN (16:59)
[2022-09-18] MEDS: amLODIPine BESYLATE 5 MG TAB PO SCH (17:00)
[2022-09-18 18:00] LABS: Lyme Ab IgG w/WB Rflx Negative (Negative); Lyme Ab IgM w/WB Rflx Negative (Negative)
[2022-09-18] MEDS: TACROLIMUS 1 MG CAP PO SCH (20:06)
[2022-09-19] MEDS: HYDROmorphone HCL 2 MG TAB PO PRN ×2 (00:41→12:41)
[2022-09-19] MEDS: CEFEPIME 1,000 MG in SYRINGE 0 ML IV SCH ×2 (01:03→13:05)
[2022-09-19] MEDS ORDERED: HYDROmorphone INJ 0.5 MG/0.5 ML SYR IV STA (03:11)
[2022-09-19 05:32] LABS: Hematocrit (blood only) 27.2 % (37.0-47.0); Hemoglobin 9.5 g/dl (12.0-16.0); Mean Corpuscular Hemoglobin 30.3 pg (25.0-34.0); Mean Corpuscular Hgb Conc 34.9 g/dL (32.0-36.0); Mean Corpuscular Volume 86.6 fL (80.0-100.0); Mean Platelet Volume 9.1 fL (9.4-12.4); Platelet Count 185 K/uL (130-400); RDW Coefficient of Variation 12.5 % (11.5-14.5); RDW Standard Deviation 39.4 fL (36.4-46.3); Red Blood Count 3.14 M/uL (4.20-5.40); White Blood Count 7.17 K/ul (4.8-10.8)
[2022-09-19] MEDS: ACETAMINOPHEN 1,000 MG/100 ML VIAL IV PRN ×2 (05:39→17:56)
[2022-09-19 05:46] LABS: BUN Creatinine Ratio 19.8 (10-20); Creatinine Clr Calc Pharmacy 26.3 ml/min; Est GFR (African American) 37.4 ml/min; Est GFR (Non-African American) 32.3 ml/min; Magnesium 1.7 mg/dl (1.7-2.4); Potassium 4.4 mmol/L (3.5-5.1)
[2022-09-19] MEDS: amLODIPine BESYLATE 5 MG TAB PO SCH (08:17)
[2022-09-19] MEDS: FLUTICASONE/VILANTEROL 100/25MCG 14 PUFFS/INHALER INH SCH (08:17)
[2022-09-19] MEDS: oxyCODONE HCL 15 MG TABCR (OxyCONTIN) PO SCH ×2 (08:17→20:49)
[2022-09-19] MEDS: azaTHIOprine 50 MG TAB PO SCH (08:17)
[2022-09-19] MEDS: TACROLIMUS 0.5 MG CAP PO SCH (08:17)
[2022-09-19] MEDS: POTASSIUM CHLORIDE CRTAB 20 MEQ TABCR PO SCH (08:18)
[2022-09-19] MEDS: TAMSULOSIN HCL 0.4 MG CAP PO SCH (08:18)
[2022-09-19] MEDS: ACYCLOVIR 200 MG CAP PO SCH (08:18)
[2022-09-19] MEDS: MULTIVITAMIN TAB PO SCH (08:18)
[2022-09-19] MEDS: HEPARIN SOD 5,000 UNIT/0.5 ML VIAL SQ SCH ×2 (08:18→20:49)
[2022-09-19] MEDS: PANTOprazole 40 MG TAB PO SCH (08:18)
[2022-09-19] MEDS: EVEROLIMUS 0.5 MG PO SCH ×2 (08:18→20:49)
[2022-09-19] MEDS: CITALOPRAM 40 MG TAB PO SCH (08:18)
[2022-09-19] MEDS: predniSONE 5 MG TAB PO SCH ×2 (08:18→20:50)
[2022-09-19] MEDS: INSULIN ASPART PER UNIT CHARGE SC SCH ×5 (09:01→21:08)
[2022-09-19] MEDS: ONDANSETRON INJ 2 MG/ML 2 ML VIAL IV PRN (09:01)
[2022-09-19] MEDS: carvediloL 3.125 MG TAB PO SCH ×2 (12:08→17:48)
[2022-09-19] MEDS ORDERED: SUMAtriptan succinate 25 MG TAB PO ONE (13:20)
--- NOTE | 2022-09-19 15:00 | CT Scan Report ---
CT cervical spine wo con CLINICAL HISTORY: Neck Pain TECHNIQUE: Multidetector row helical CT of the cervical spine was performed without administration of intravenous contrast. Coronal and sagittal reformations were obtained. Automated dose lowering techn iques and/or adjustment according to patient size were utilized for this exam. Comparison: Comparison is made to CT cervical spine 07/18/2020 FINDINGS: Anterior cervical fixation hardware is seen. Fusion of numerous cervical vertebral bodies seen. Degen erative changes are seen in the visualized spine. Erosive changes are seen in the atlantoaxial joint. The alignment is normal. Subcentimeter thyroid nodules are seen which do not require follow-up by AC R criteria. Emphysema is noted. IMPRESSION: Prominent degenerative changes and ACDF without evidence of acute fracture. ACT 112: Negative or not required by law. Electronically signed by: Cipriano Cool M.D. 09/19/2022 2:59 PM
--- NOTE | 2022-09-19 17:12 | Hospitalist Progress Note ---
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 No hydronephrosis. Partial distention of the urinary bladder. -- Urine analysis not suggestive of UTI Blood culture negative to date Urine culture negative Empirically received vancomycin, cefepime Started on Flomax Mccartney catheter placed Consider urology evaluation if needed Hypertensive urgency Headache likely due to above --CT head:No acute findings in the head/brain. Pain likely contributing Not on any hypertensives at home Started on amlodipine, also on Flomax as able IV hydralazine as needed Added Coreg Trial of Imitrex Consider MRI brain if persistent headache Lumbago Compression fractures L1 and L3 --Lumbar CT:Mild superior endplate compression fractures at L1 and L3. These are technically age indeterminate but likely old. No associated retropulsion. Mild central canal narrowing at L2-L3 and moderate central canal narrowing at L3-L4 due to the degenerative changes. Postoperative changes as described above. Left-sided nephrolithiasis. No hydronephrosis. --Thoracic CT:No acute fractures within the thoracic spine. Mild degenerative disc disease throughout the thoracic spine. Cervical spinal fusion hardware is noted. --CT neck:Prominent degenerative changes and ACDF without evidence of acute fracture -- Pain control Fall precautions PT OT as able Orthopedics consulted--pending Input (3) Hyponatremia: Plan: Sodium of 131 on presentation. Likely hypovolemic hyponatremia Sertraline likely contributing as well Received IV fluids Monitor sodium levels (4) History of lung transplant: Plan: H/O lung transplant at [facility] on immunosuppression. ED physician with [facility] transplant team. Recommended to obtain tacrolimus and everolimus levels--Pending On chronic prednisone. Prophylactic Bactrim and acyclovir continued. (5) Ehgcn-[id number] deficiency: (6) COPD (chronic obstructive pulmonary disease): Plan: Used to be on home O2. Currently saturating on room air. Continue inhalers (7) Diabetes type 2, controlled: Plan: Lantus and NovoLog ordered Monitor blood glucose Plan Other conditions; CKD; creatinine slightly increased from baseline. Received IV fluids. Avoiding nephrotoxic agents. Chronic opioid use; continue Mood disordercontinue home meds DVT Px: Heparin SQ Code Status Full code Admission and Anticipated Discharge Date Admission Date: September 17, 2022 Subjective Patient is seen and examined at bedside Persistent headache Nausea improved Also reports neck discomfort Discussed with patient's family at bedside Denies any chest pain, dyspnea, abdominal pain Review of Systems Review of Systems: All systems reviewed & are unremarkable except as noted in Subjective Physical Exam Physical Exam: Physical Exam: Vitals signs as noted above General Appearance:Moderately built and nourished, no apparent distress Head: normocephalic, Atraumatic Eyes: normal inspection, EOMI Neck: supple, Trachea midline Respiratory/Chest: Normal breath sounds, CTA, No accessory muscle use Cardiovascular: S1, S2, No murmur Abdomen/GI:Soft, Non tender, Bowel sounds present Back:+tenderness-mid back/Para vertebral Extremities/Musculoskeletal:normal inspection, no edema Neurologic/Psych:AAOX3, grossly no focal neurological deficits, Chronic tremor Skin: normal color, warm Results & Data Results & Data Vital Signs (Past 12 Hours) Vital Signs Temp Pulse Pulse Resp BP Pulse Ox O2 Del Method 09/19/22 08:00 97 H 09/19/22 12:25 36.6 C 95 H 16 128/60 92 Room Air 09/19/22 07:47 36.9 C 85 18 153/56 H 95 Room Air Laboratory Results Short CBC 09/19/22 Range/Units 04:30 WBC 7.17 (4.8-10.8) K/ul Hgb 9.5 L (12.0-16.0) g/dl Hct 27.2 L (37.0-47.0) % Plt Count 185 (130-400) K/uL BMP 09/19/22 04:30 Sodium 131 L Potassium 4.4 Chloride 100 Carbon Dioxide 23 BUN 32 H Creatinine 1.62 H Glucose 167 H Calcium 9.0
[2022-09-19] MEDS: TACROLIMUS 1 MG CAP PO SCH (20:50)
[2022-09-19] MEDS: LANTUS PER UNIT CHARGE SC SCH (20:50)
[2022-09-20] MEDS: CEFEPIME 1,000 MG in SYRINGE 0 ML IV SCH ×2 (01:55→14:10)
[2022-09-20] MEDS: HYDROmorphone HCL 2 MG TAB PO PRN ×3 (02:01→22:12)
[2022-09-20] MEDS: ONDANSETRON INJ 2 MG/ML 2 ML VIAL IV PRN ×2 (02:02→16:17)
[2022-09-20] MEDS ORDERED: HYDROmorphone INJ 0.5 MG/0.5 ML SYR IV STA ×2 (03:33→05:00)
[2022-09-20] MEDS ORDERED: DEXAMETHASONE SOD INJ 4 MG/ML VIAL IV STA (05:03)
[2022-09-20] MEDS ORDERED: dexAMETHasone 6 MG in SYRINGE 0 ML IV STA (05:15)
[2022-09-20 05:24] LABS: BUN Creatinine Ratio 18.8 (10-20); Est GFR (African American) 35.3 ml/min; Est GFR (Non-African American) 30.5 ml/min; Potassium 3.9 mmol/L (3.5-5.1)
[2022-09-20] MEDS: ACETAMINOPHEN 1,000 MG/100 ML VIAL IV PRN ×2 (06:39→14:39)
[2022-09-20] MEDS ORDERED: LANTUS PER UNIT CHARGE SC ONE (08:30)
[2022-09-20] MEDS: INSULIN ASPART PER UNIT CHARGE SC SCH ×4 (10:59→20:27)
[2022-09-20] MEDS: ACYCLOVIR 200 MG CAP PO SCH (11:03)
[2022-09-20] MEDS: carvediloL 3.125 MG TAB PO SCH ×2 (11:03→17:58)
[2022-09-20] MEDS: amLODIPine BESYLATE 5 MG TAB PO SCH (11:03)
[2022-09-20] MEDS: azaTHIOprine 50 MG TAB PO SCH (11:04)
[2022-09-20] MEDS: CITALOPRAM 40 MG TAB PO SCH (11:05)
[2022-09-20] MEDS: AZITHROMYCIN 250 MG TAB PO SCH (11:05)
[2022-09-20] MEDS: EVEROLIMUS 0.5 MG PO SCH ×2 (11:05→20:20)
[2022-09-20] MEDS: FLUTICASONE/VILANTEROL 100/25MCG 14 PUFFS/INHALER INH SCH (11:06)
[2022-09-20] MEDS: HEPARIN SOD 5,000 UNIT/0.5 ML VIAL SQ SCH (11:06)
[2022-09-20] MEDS: MULTIVITAMIN TAB PO SCH (11:06)
[2022-09-20] MEDS: PANTOprazole 40 MG TAB PO SCH (11:06)
[2022-09-20] MEDS: SULFA/TRIMETH 400/80MG TAB PO SCH (11:07)
[2022-09-20] MEDS: predniSONE 5 MG TAB PO SCH ×2 (11:07→20:20)
[2022-09-20] MEDS: TAMSULOSIN HCL 0.4 MG CAP PO SCH (11:07)
[2022-09-20] MEDS: TACROLIMUS 0.5 MG CAP PO SCH (11:07)
[2022-09-20] MEDS: POTASSIUM CHLORIDE CRTAB 20 MEQ TABCR PO SCH (11:07)
[2022-09-20] MEDS: oxyCODONE HCL 15 MG TABCR (OxyCONTIN) PO SCH ×2 (11:17→20:20)
--- NOTE | 2022-09-20 11:24 | Pharmacy Report ---
Pharmacy Glycemic Short Note 2 - Date of Service September 20, 2022 - Glycemic Short BSG Results (Last 24 hours): 09/19/22 09/19/22 09/19/22 12:28 16:47 21:02 Glucose POC Glucose 145 H 138 H 212 H 09/20/22 09/20/22 04:22 07:55 Glucose 168 H POC Glucose 221 H OUTPATIENT ANTIDIABETIC REGIMEN: * Lantus 8 units SC HS * Novolog 4 units SC BIDM * HbA1c: 6.9% (09/18/22) ASSESSMENT: 09/20 * BSGs have been fairly well-controlled. Pt seems to have some hyperglycemia at bedtime. If this trend continues, will consider providing additional coverage daily with dinner. * Ms Lanier received 6mg IV dexamethasone this morning, so expecting to see some additional steroid-induced hyperglycemia. Supplemental dose of Lantus given this morning. * It looks like pt went for an MRI this morning, so am Novolog was administered late. Will take this into consideration when evaluating pre-lunch BSG today. * Pharmacy will continue to follow and adjust regimen as indicated. 09/18 * PW is a 67 year old female admitted on 09/17 w/ headache, nausea, and vomiting * Hx of lung transplant and COPD - on chronic prednisone 5 mg PO BID * Weight-based stress of 2 Novolog started with home Lantus - will continue for now * Empiric broad spectrum antibiotics ordered at this time PLAN FOR INPATIENT GLYCEMIC CONTROL: * Basal insulin * Lantus 5 units x1 dose this am * Lantus 10 units SQ HS * Bolus insulin * NovoLog per scale ACHS or Q6hrs while NPO * Goal Range: Low 110 mg/dL - High 140 mg/dL * Correction Factor: 30 mg/dL/unit * Nutritional / Prandial insulin per carb ratio of 1 unit per 9 grams CHO consumed
--- NOTE | 2022-09-20 12:46 | Magnetic Resonance Report ---
MRI OF THE BRAIN WITHOUT CONTRAST CLINICAL HISTORY: Persistent headache. COMPARISON STUDY: MRI of the brain May 16, [address] September 18, 2022. TECHNIQUE: Utilizing a 1.5 Katie magnet and dedicated coil, multiplanar, multiecho imaging of the bra in was performed without IV contrast. FINDINGS: There are no foci of restricted diffusion to suggest acute infarct. No acute intracranial h emorrhage is present. Ventricular system is unremarkable. Basal cisterns are patent. There are no ext ra-axial collections. Flow-voids for the major intracranial vessels are present. Note is made of a 2. 8 x 2.6 cm T2 hyperintense focus with mild mass effect within the right frontal lobe on axial T2-weig hted sequence image 12 of . This is mildly hyperintense on the diffusion-weighted sequence as well as mildly hyperintense on the ADC map. There is no midline shift. Additional scattered white matter T 2 hyperintense foci suggest small vessel disease. Calvarial signal is within normal limits. IMPRESSION: 1. 2.8 x 2.6 cm T2 hyperintense focus with mild mass effect within the right frontal lobe. This is no nspecific and differential considerations include a subacute infarct, neoplasm and encephalitis/cereb ritis. Follow-up MRI with T1 post contrast imaging is recommended. In addition, Neurology consultatio n is suggested. 2. No acute infarct. No acute intracranial hemorrhage. ACT 112: Negative or not required by law. Electronically signed by: Josesito Villatoro M.D. 09/20/2022 12:44 PM
--- NOTE | 2022-09-20 12:56 | Magnetic Resonance Report ---
MR venography head wo con, MR angio neck wo con, MR angio head wo con CLINICAL HISTORY: persistent headache TECHNIQUE: Multiplanar and multisequence MR images of the brain were obtained with noncontrast MR ang iography and venography protocol. MR angiography of the neck was also performed. 3-D reconstructions were obtained in multiple planes. Comparison: Comparison is made to CT head 09/18/2022 FINDINGS: Exam is limited by patient motion. Ex vacuo ventriculomegaly and sulcal enlargement is noted compatible with diffuse encephalomalacia. T here are no masses, mass effect, or midline shift. No abnormal enhancement is seen. The corpus callo sum, pituitary gland, and cerebellar tonsils appear grossly unremarkable. Normal patency and flow is seen in the dural sinuses and visualized cerebral veins. The imaged portio ns of the paranasal sinuses, mastoid air cells, and orbits are unremarkable. Flow signal consistent with patency is shown within the common carotid, cervical segments of the inte rnal carotid, external carotid, and vertebral arteries. No aneurysm, dissection, hemodynamically sign ificant flow stenosis, nor occlusion is present. Flow signal is shown in the intracranial segments of the internal carotid arteries, the anterior, mid dle and posterior cerebral arteries, the anterior and posterior communicating arteries, cerebellar ar teries, the intracranial segments of the vertebral arteries, and the basilar artery. No aneurysm, ar teriovenous malformation, dissection, nor hemodynamically significant flow stenosis is shown. Prominent thyroid is incidentally noted. IMPRESSION: No acute abnormalities. In particular no venous sinus thrombosis or vascular occlusion. ACT 112: Negative or not required by law. Electronically signed by: Cipriano Cool M.D. 09/20/2022 12:55 PM
--- NOTE | 2022-09-20 14:06 | Neurology Consultation ---
Date of Consultation September 20, 2022 Assessment & Plan (1) Cerebritis: MRI brain reveals a focal region of T2 hyperintensity with swelling of the R frontal cortex in a non-vascular distribution. This was not present on the MRI from 07/2020 suggesting acuity. MRV is negative though a small cortical vein thrombosis could be missed on this study. I suspect highly that this is a focal cerebritis given her fever of unknown source, and immunosupression. Alternative possibility such as a glioma are still on the differential. She seems to have a mild L facial droop attributable to this brain abnormality and meningeal irritation manifesting as headache. Recommend the following: -- MRI brain with contrast as recommended by radiology (before the LP) -- LP for cell count, protein, glucose, LD, gram stain, aerobic and anerobic cultures, crypto, fungal staining -- ID consult as the pathogenic causes can be numerous to further specify CSF testing -- Unfortunately LP may not be sufficient and brain biopsy is often needed in these cases but would proceed with above first. We will follow Telehealth Consultation Telehealth Information Telehealth Information: I performed this visit using a real-time telehealth connection between my location and the patients location ([facility]). After connecting through interactive tele-video, patient was identified by name and date of and/or wristband check.Patient (or authorized healthcare appeals representative) was informed that this was a telemedicine visit and it was being conducted confidentially over secure lines. My office door was closed and no one else was present in the room with me.Patient (or authorized healthcare appeals representative) provided consent to proceed with the visit, expressed an understanding of privacy and security of the telemedicine visit, and gave permission to have a hospital appeals representative in the room in order to assist with the visit and to conduct portions of the visit, as needed. I informed the patient (or authorized healthcare appeals representative) that I reviewed their record and presented the opportunity for them to ask any questions regarding the visit today. The patient agreed to participate. History of Present Illness Reason for Consultation: Headache, MRI abnormalities Requesting Physician: Dr. Nugent Attending Physician: Juan Luis Nugent MD History of Present Illness Shagufta Lanier is a 67 yo F with a history of lung transplant 3 years ago on immunosuppression (everolimus, tacro) presenting with a week of headache, fevers, gait instability. The patient reports significant posterior headache symptoms that travel down the neck and into the back. Per her she has not complained of a headache like this before and he notes that she has been significantly off balance since this began. Otherwise denies any focal weakness, numbness or cognitive changes though she has been evaluated at [facility] for dementia in the past. She has not been febrile since arrival. Allergies Allergy/AdvReac Type Severity Reaction Status Date / Time No Known Allergies Allergy Unverified 09/17/22 15:42 Home Medications Medication Instructions Recorded Confirmed Type acyclovir 200 mg capsule 400 mg PO DAILY 09/17/22 09/17/22 History albuterol sulfate 90 mcg/actuation 1 - 2 inh inhalation Q6H PRN SOB 09/17/22 09/17/22 History aerosol inhaler azathioprine 50 mg tablet 50 mg PO DAILY 09/17/22 09/17/22 History azithromycin 250 mg tablet 250 mg PO 3XWK 09/17/22 09/17/22 History citalopram 40 mg tablet (Celexa) 40 mg PO DAILY 09/17/22 09/17/22 History everolimus (immunosuppressive) 0.5 mg PO Q12H 09/17/22 09/17/22 History 0.25 mg tablet fluticasone furoate 100 1 inh inhalation DAILY 09/17/22 09/17/22 History mcg-vilanterol 25 mcg/dose inhalation powder (Breo Ellipta) hydromorphone 2 mg tablet 2 mg PO Q12H PRN Pain 09/17/22 09/17/22 History insulin glargine 100 unit/mL (3 8 unit subcut HS 09/17/22 09/17/22 History mL) subcutaneous pen (Lantus Solostar U-100 Insulin) insulin lispro 100 unit/mL 4 unit subcut BIDWMEAL 09/17/22 09/17/22 History subcutaneous pen multivitamin 1 tab PO DAILY 09/17/22 09/17/22 History oxycodone 15 mg tablet,crush 15 mg PO Q12H 09/17/22 09/17/22 History resistant,extended release 12 hr (OxyContin) pantoprazole 40 mg tablet,delayed 40 mg PO DAILY 09/17/22 09/17/22 History release potassium chloride 20 mEq 20 meq PO DAILY 09/17/22 09/17/22 History tablet,extended release(part/cryst) prednisone 5 mg tablet 5 mg PO BID 09/17/22 09/17/22 History sertraline 25 mg tablet See Rx Instructions .Route .COMPLEX 09/17/22 09/17/22 History sertraline 50 mg tablet See Rx Instructions .Route .COMPLEX 09/17/22 09/17/22 History sulfamethoxazole 400 1 tab PO 3XWK 09/17/22 09/17/22 History mg-trimethoprim 80 mg tablet tacrolimus 0.5 mg capsule, 1.5 mg PO QAM 09/17/22 09/17/22 History immediate-release tacrolimus 1 mg capsule, 2 mg PO HS 09/17/22 09/17/22 History immediate-release Patient History Medical History (Updated 09/20/22 @ 14:00 by Raphael Covarrubias MD) Afarr-2-mqwettjwecw deficiency Chronic back pain Chronic pain syndrome Chronic respiratory failure with hypoxia 4L home O2 COPD (chronic obstructive pulmonary disease) Coronary artery disease Degenerative disc disease Depression Diabetes type 2, controlled GERD (gastroesophageal reflux disease) H/O lymphoma Heart murmur Hyperlipidemia Pulmonary embolism 2008--reason unknown, no blood thinners Surgical History (Updated 09/18/22 @ 07:39 by Alfonzo Justice MD) History of bilateral tubal ligation History of bronchoscopy multiple History of colonoscopy History of dilatation and curettage History of fusion of cervical spine normal ROM History of lumbar spinal fusion History of tonsillectomy History of tooth extraction History of total hysterectomy with bilateral salpingo-oophorectomy (BSO) History of vascular access device left chest APort Hx of arthroscopy of right knee Family History Father Family history of diabetes mellitus Sister Family history of diabetes mellitus Other No family history of adverse response to anesthesia Social History Smoking Status: Former smoker Second Hand Exposure: No; Do You Dip or Chew Tobacco: No; Hx Alcohol Use: No Hx Substance Use: No Preferred Language: Bulgarian Communication 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 Oriented to person, place, and time. Fluent, non-dysarthric. Comprehension intact. Affect appropriate. Cranial Nerves: II: pupils 3/3 to 2/2 III/IV/: Versions intact without nystagmus, no gaze preference. V: Facial sensation symmetric to light touch, though patient is unsure if there is side to side variation VII: Facial expression appears reduced on the left, not noticed by until pointed out. VIII: Hearing intact to voice IX/X: Palate elevates symmetrically XI: Shoulder shrug symmetric XII: Tongue midline Motor: Strength was symmetric and antigravity throughout. Pronator drift was absent. There were no abnormal movements. Sensory: Sensation to light touch was intact. Coordination: Finger to nose and heel to escobar were intact. Reflexes: Unable to assess over telemedicine Results & Data Vital Signs (Past 12 Hours) Vital Signs Temp Pulse Resp BP BP Pulse Ox O2 Del Method 09/20/22 12:26 36.5 C 92 H 19 175/68 H 97 Room Air 09/20/22 07:56 36.5 C 85 18 122/68 95 Room Air 09/20/22 06:19 177/68 H 09/20/22 05:49 190/70 H 09/20/22 05:19 188/69 H 09/20/22 04:49 195/73 H 09/20/22 03:16 37.2 C 91 H 18 194/52 H 92 Room Air Laboratory Results Abnormal lab results 09/19/22 09/19/22 09/20/22 Range/Units 16:47 21:02 04:22 Sodium 133 L (136-145) mmol/L BUN 32 H (6-23) mg/dl Creatinine 1.70 H (0.6-1.2) mg/dl Glucose 168 H (70-99(Fasting)) mg/dl POC Glucose 138 H 212 H (70-99) mg/dl 09/20/22 09/20/22 Range/Units 07:55 11:52 Sodium (136-145) mmol/L BUN (6-23) mg/dl Creatinine (0.6-1.2) mg/dl Glucose (70-99(Fasting)) mg/dl POC Glucose 221 H 264 H (70-99) mg/dl Diagnostic Findings Electronically signed by: Cipriano Cool M.D. 09/20/2022 12:55 PM Brain MRI 09/20/22 05:02 MRI OF THE BRAIN WITHOUT CONTRAST CLINICAL HISTORY: Persistent headache. COMPARISON STUDY: MRI of the brain May 16, [address] September 18, 2022. TECHNIQUE: Utilizing a 1.5 Katie magnet and dedicated coil, multiplanar, multiecho imaging of the brain was performed without IV contrast. FINDINGS: There are no foci of restricted diffusion to suggest acute infarct. No acute intracranial hemorrhage is present. Ventricular system is unremarkable. Basal cisterns are patent. There are no extra-axial collections. Flow-voids for the major intracranial vessels are present. Note is made of a 2.8 x 2.6 cm T2 hyperintense focus with mild mass effect within the right frontal lobe on axial T2-weighted sequence image . This is mildly hyperintense on the diffusion-weighted sequence as well as mildly hyperintense on the ADC map. There is no midline shift. Additional scattered white matter T2 hyperintense foci suggest small vessel disease. Calvarial signal is within normal limits. IMPRESSION: 1. 2.8 x 2.6 cm T2 hyperintense focus with mild mass effect within the right frontal lobe. This is nonspecific and differential considerations include a subacute infarct, neoplasm and encephalitis/cerebritis. Follow-up MRI with T1 post contrast imaging is recommended. In addition, Neurology consultation is suggested. 2. No acute infarct. No acute intracranial hemorrhage.
[2022-09-20] MEDS ORDERED: GADOBUTROL 65ML VIAL IV ONE (15:41)
--- NOTE | 2022-09-20 16:13 | Magnetic Resonance Report ---
MRI OF THE BRAIN WITHOUT AND WITH IV CONTRAST CLINICAL HISTORY: Concern for cerebritis. Nausea and vomiting. Abnormal noncontrast MRI of the brain. COMPARISON STUDY: Head CT September 18, 2022 and MRI of the brain performed earlier today. TECHNIQUE: Utilizing a 1.5 Katie magnet and dedicated coil, multiplanar, multiecho imaging of the br ain was performed pre and postcontrast administration. T1 pre and postcontrast imaging was performed . IV administration of 5.8 mL of Gadavist contrast was uneventful. FINDINGS: This exam is mildly compromised by motion artifact. The jugular system is unremarkable. Bas al cisterns are patent. There are no extra-axial collections. Please note that only a T1 pre and post contrast study was performed given noncontrast MRI was performed earlier today. There is a 1.9 cm foc us of subtle predominantly linear enhancement within the right frontal lobe which corresponds to the focus of signal abnormality on MRI from earlier today. No additional foci of abnormal enhancement are present. IMPRESSION: 1.9 cm focus of subtle predominantly linear enhancement within the right frontal lobe a t site of parenchymal signal abnormality on MRI performed earlier today. The finding remains nonspeci fic and differential considerations include a subacute infarct, neoplasm and cerebritis. A short-term follow-up MRI the brain with and without contrast in one month to ensure resolution is recommended. No additional abnormal enhancing foci. ACT 112: Positive. There are findings on this exam that require communication between the performing entity and the patient following Patient Test Result Information Act ([place] Act 112) guidelines. Electronically signed by: Josesito Villatoro M.D. 09/20/2022 4:11 PM
[2022-09-20] MEDS ORDERED: VANCOMYCIN CONSULT ACTIVE PRN (16:38)
[2022-09-20] MEDS ORDERED: CEFEPIME 2,000 MG in SYRINGE 0 ML IV SCH (16:45)
--- NOTE | 2022-09-20 16:49 | Hospitalist Progress Note ---
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 Urine and blood culture negative. Lyme disease negative MRI brain results reviewed; found to have 2.8 x 2.6 cm T2 hyperintense focus. MRV did not show any sinus thrombosis or vascular occlusion Discussed with neurology; recommended MRI brain with contrast, lumbar puncture and infectious disease consult MRI brain with contrast 1.9 cm focus of subtle predominantly linear enhancement within the right frontal lobe at site of parenchymal signal Patient to undergo lumbar puncture tomorrow Called patient's transplant physician Dr. Brand; awaiting callback. Continue on empiric cefepime and vancomycin Urinary retention --Renal USD:5 mm nonobstructing left renal calculus. No hydronephrosis. Partial distention of the urinary bladder. -- Urine analysis not suggestive of UTI Trial of void today. Bladder scan Compression fractures L1 and L3 --Lumbar CT:Mild superior endplate compression fractures at L1 and L3. These are technically age indeterminate but likely old. No associated retropulsion. Mild central canal narrowing at L2-L3 and moderate central canal narrowing at L3-L4 due to the degenerative changes. Postoperative changes as described above. Left-sided nephrolithiasis. No hydronephrosis. --Thoracic CT:No acute fractures within the thoracic spine. Mild degenerative disc disease throughout the thoracic spine. Cervical spinal fusion hardware is noted. --CT neck:Prominent degenerative changes and ACDF without evidence of acute fracture -- Pain control Fall precautions PT OT as able Orthopedics consulted--pending Input (3) Hyponatremia: Plan: Sodium of 131 on presentation. Improved to 133 Likely hypovolemic hyponatremia Sertraline likely contributing as well Received IV fluids Monitor sodium levels (4) History of lung transplant: Plan: H/O lung transplant at [facility] on immunosuppression. ED physician with [facility] transplant team. Recommended to obtain tacrolimus and everolimus levels--Pending On chronic prednisone. Prophylactic Bactrim and acyclovir continued. (5) [id number] deficiency: (6) COPD (chronic obstructive pulmonary disease): Plan: Used to be on home O2. Currently saturating on room air. Continue inhalers (7) Diabetes type 2, controlled: Plan: Lantus and NovoLog ordered Monitor blood glucose Plan Other conditions; CKD; creatinine slightly increased from baseline. Received IV fluids. Avoiding nephrotoxic agents. Chronic opioid use; continue Mood disordercontinue home meds DVT Px: Heparin SQ Code Status Full code Admission and Anticipated Discharge Date Admission Date: September 17, 2022 Subjective Patient seen and examined at bedside. She reports severe headache. Afebrile overnight. Review of Systems Review of Systems: All systems reviewed & are unremarkable except as noted in Subjective Physical Exam Physical Exam: Constitutional: Awake, alert, ill appearing Respiratory: normal respiratory effort, lungs clear to auscultation, no wheeze, rales, rhonchi. Normal insp/exp effort, no accessory muscle use Cardiovascular: RRR, no murmur, no edema Vessels: no JVD or carotid bruit Chest: normal inspection of chest Abdomen: Suprapubic tenderness present. Left costophrenic angle tenderness present Musculoskeletal: no cyanosis or clubbing, extremities motor strength 5/5 Skin: no rashes, warm and dry normal turgor Neurologic: Slight decrease in facial expression on the left side. Psychiatric: A+Ox3, euthymic affect Lymphatic: no cervical or axillary lymphadenopathy : deferred Results & Data Results & Data Vital Signs (Past 12 Hours) Vital Signs Temp Pulse Pulse Resp BP BP Pulse Ox 09/20/22 16:21 37.0 C 89 19 138/58 L 95 09/20/22 09:00 105 H 09/20/22 12:26 36.5 C 92 H 19 175/68 H 97 09/20/22 07:56 36.5 C 85 18 122/68 95 09/20/22 06:19 177/68 H 09/20/22 05:49 190/70 H 09/20/22 05:19 188/69 H 09/20/22 04:49 195/73 H O2 Del Method 09/20/22 16:21 Room Air 09/20/22 09:00 09/20/22 12:26 Room Air 09/20/22 07:56 Room Air 09/20/22 06:19 09/20/22 05:49 09/20/22 05:19 09/20/22 04:49 Laboratory Results Laboratory Results WBC 7.17 K/ul (4.8-10.8) 09/19/22 04:30 RBC 3.14 M/uL (4.20-5.40) L 09/19/22 04:30 Hgb 9.5 g/dl (12.0-16.0) L 09/19/22 04:30 Hct 27.2 % (37.0-47.0) L 09/19/22 04:30 MCV 86.6 fL (80.0-100.0) 09/19/22 04:30 MCH 30.3 pg (25.0-34.0) 09/19/22 04:30 MCHC 34.9 g/dL (32.0-36.0) 09/19/22 04:30 RDW Std Deviation 39.4 fL (36.4-46.3) 09/19/22 04:30 RDW Coeff of Jennie 12.5 % (11.5-14.5) 09/19/22 04:30 Plt Count 185 K/uL (130-400) 09/19/22 04:30 MPV 9.1 fL (9.4-12.4) L 09/19/22 04:30 Immature Gran % (Auto) 0.3 % 09/18/22 05:16 Neut % (Auto) 90.5 % 09/18/22 05:16 Lymph % (Auto) 3.7 % 09/18/22 05:16 [place] % (Auto) 5.0 % 09/18/22 05:16 Eos % (Auto) 0.1 % 09/18/22 05:16 Baso % (Auto) 0.4 % 09/18/22 05:16 Neut # (Auto) 7.05 K/uL (1.40-6.50) H 09/18/22 05:16 Lymph # (Auto) 0.29 K/uL (1.2-3.4) L 09/18/22 05:16 [place] # (Auto) 0.39 K/uL (0.11-0.59) 09/18/22 05:16 Eos # (Auto) 0.01 K/uL (0-0.50) 09/18/22 05:16 Baso # (Auto) 0.03 K/uL (0-0.2) 09/18/22 05:16 Immature Gran # (Auto) 0.02 K/uL (0.01-0.20) 09/18/22 05:16 Ovalocytes 1+ 09/18/22 05:16 Echinocytes 1+ 09/18/22 05:16 ESR 19 mm/hr (0-30) 09/19/22 04:30 Sodium 133 mmol/L (136-145) L 09/20/22 04:22 Potassium 3.9 mmol/L (3.5-5.1) 09/20/22 04:22 Chloride 100 mmol/L (98-107) 09/20/22 04:22 Carbon Dioxide 25 mmol/L (21-32) 09/20/22 04:22 Anion Gap 8 (3-11) 09/20/22 04:22 BUN 32 mg/dl (6-23) H 09/20/22 04:22 Creatinine 1.70 mg/dl (0.6-1.2) H 09/20/22 04:22 Est Cr Clr Drug Dosing 25.0 ml/min 09/20/22 04:22 Est GFR ( Amer) 35.3 ml/min 09/20/22 04:22 Est GFR (Non-Af Amer) 30.5 ml/min 09/20/22 04:22 BUN/Creatinine Ratio 18.8 (10-20) 09/20/22 04:22 Glucose 168 mg/dl (70-99(Fasting)) H 09/20/22 04:22 POC Glucose 264 mg/dl (70-99) H 09/20/22 11:52 Estimat Average Glucose 151 mg/dl 09/18/22 05:16 Hemoglobin A1c 6.9 % (4.5-5.6) H 09/18/22 05:16 Lactate 0.9 mmol/L (0.4-2.0) 09/17/22 14:59 Calcium 9.0 mg/dl (8.6-10.3) 09/20/22 04:22 Magnesium 1.7 mg/dl (1.7-2.4) 09/19/22 04:30 Total Bilirubin 0.5 mg/dl (0.2-1.0) 09/18/22 05:16 AST 18 U/L (13-39) 09/18/22 05:16 ALT 8 U/L (7-52) 09/18/22 05:16 Alkaline Phosphatase 52 U/L (34-104) 09/18/22 05:16 Total Protein 5.8 gm/dl (6.0-8.3) L 09/18/22 05:16 Albumin 3.1 gm/dl (3.4-5.0) L 09/18/22 05:16 Globulin 2.7 gm/dl (2.5-4.0) 09/18/22 05:16 Albumin/Globulin Ratio 1.1 (0.9-2) 09/18/22 05:16 Procalcitonin < 0.05 ng/ml (0-0.5) 09/17/22 14:59 Urine Color Yellow 09/17/22 Unknown Urine Appearance Clear (Clear) 09/17/22 Unknown Urine pH 6.0 (4.5-7.5) 09/17/22 Unknown Ur Specific [place] 1.015 (1.000-1.030) 09/17/22 Unknown Urine Protein 3+ (Negative) H 09/17/22 Unknown Urine Glucose (UA) Negative (Negative) 09/17/22 Unknown Urine Ketones 1+ (Negative) H 09/17/22 Unknown Urine Blood Trace (Negative) H 09/17/22 Unknown Urine Nitrite Negative (Negative) 09/17/22 Unknown Urine Bilirubin Negative (Negative) 09/17/22 Unknown Urine Urobilinogen Negative (Negative) 09/17/22 Unknown Ur Leukocyte Esterase Negative (Negative) 09/17/22 Unknown Urine WBC (Auto) 1-5 /hpf (0-5) 09/17/22 Unknown Urine RBC (Auto) 0-4 /hpf (0-4) 09/17/22 Unknown U Hyaline Cast (Auto) 1-5 /lpf (0-5) 09/17/22 Unknown U Epithel Cells (Auto) 5-10 /lpf (0-5) H 09/17/22 Unknown Urine Bacteria (Auto) Negative (Negative) 09/17/22 Unknown Urine Osmolality 422 mOsm/kg (500-800) L 09/17/22 Unknown Ur Random Creatinine 65.1 mg/dl 09/17/22 Unknown Urine Sodium 63 mmol/L 09/17/22 Unknown Urine Potassium 43.4 mmol/L 09/17/22 Unknown Urine Chloride 77 mmol/L 09/17/22 Unknown Nasal Screen MRSA (PCR) Negative (Negative) 09/17/22 Unknown Anaplasma Smear See Comment 09/18/22 17:03 Lyme Disease IgG Ab Negative (Negative) 09/18/22 17:03 Lyme Disease IgM Ab Negative (Negative) 09/18/22 17:03 SARS-CoV-2 (PCR) NEGATIVE (Negative) 09/17/22 12:17 Influenza Type A (PCR) Negative (Neg) 09/17/22 12:17 Influenza Type B (PCR) Negative (Neg) 09/17/22 12:17 RSV (RT-PCR) Negative (Neg) 09/17/22 12:17 Impressions Chest X-Ray 09/17/22 12:09 XR chest 1V not portable HISTORY: 67 years-old Female fever- hx lung transplant acute shortness breath with fever COMPARISON: 08/07/2021 TECHNIQUE: PA view of the chest FINDINGS: Cardiomediastinal and hilar silhouettes are within normal limits. Atherosclerosis of the aorta. Suggested emphysema. Surgical clips project over the left hilum. No pneumothorax, pleural effusion, airspace consolidation or overt pulmonary edema. Degenerative changes of the shoulders and spine. There are a few healed chronic right-sided rib fractures. Surgical clip projects over the abdominal right upper quadrant. Cervical spinal fusion hardware. IMPRESSION: No acute process. ACT 112: Negative or not required by law. The above report was generated using voice recognition software. It may contain grammatical, syntax or spelling errors. Electronically signed by: Tom Landeros M.D. 09/17/2022 12:54 PM Renal Ultrasound 09/17/22 17:15 RENAL ULTRASOUND HISTORY: Acute right flank pain Right costophrenic angle tenderness COMPARISON: None. FINDINGS: Right kidney: 9.0 cm. No hydronephrosis. Normal corticomedullary differentiation and cortical thickness. Left kidney: 10.1 cm. No hydronephrosis. 1.57 m cyst of the upper pole. 5 mm nonobstructing calculus of the inferior pole. Normal corticomedullary differentiation and cortical thickness. Bladder: Partial distention of the urinary bladder with mild circumferential wall thickening The bilateral ureteral jets were identified. IMPRESSION: 1. 5 mm nonobstructing left renal calculus. 2. No hydronephrosis. 3. Partial distention of the urinary bladder. ACT 112: Negative or not required by law. Electronically signed by: Tom Landeros M.D. 09/17/2022 6:[address] 09/18/22 00:39 Exam(s): CT HEAD Without Contrast EXAM: CT Head Without Intravenous Contrast CLINICAL HISTORY: Reason for exam: severe headache. TECHNIQUE: Axial computed tomography images of the head/brain without intravenous contrast. CTDI is 35.65 mGy and DLP is 547.75 mGy-cm. Automated exposure control was utilized for the study. A dose lowering technique was utilized adhering to the principles of ALARA. COMPARISON: Dated 10/14/09 FINDINGS: Brain: The cerebral and cerebellar sulci are mildly prominent consistent with mild brain atrophy. There are a few areas of decreased attenuation in the deep cerebral white matter consistent with mild small vessel ischemic/degenerative changes. No hemorrhage. Ventricles: Unremarkable. No ventriculomegaly. Bones/joints: Unremarkable. No acute fracture. Soft tissues: Unremarkable. Vasculature: Atherosclerotic disease. Sinuses: Unremarkable as visualized. No acute sinusitis. Mastoid air cells: Unremarkable as visualized. No mastoid effusion. IMPRESSION: No acute findings in the head/brain. Electronically signed by: Robin Dumont MD 09/18/22 01:[address] 09/18/22 11:[address] DOSE: HISTORY: Back Pain TECHNIQUE: Multiaxial CT images of the lumbar spine were performed and reformat juan in the sagittal and coronal plane without the use of contrast. A dose lowering technique was utilized adhering to the principles of ALARA. COMPARISON: Lumbar spine CT 08/21/2008. FINDINGS: There is a 6 mm stone within the left kidney. Calcification within the right renal sinus is likely vascular. No hilar nephrosis. Calcified plaque within the normal caliber abdominal aorta. Paravertebral soft tissues are unremarkable. The visualized sacrum is intact. There is posterior decompression fusion from L4 through S1 with pedicle screws and rods. The hardware appears intact. No abnormal periprosthetic lucency. The L4-S1 vertebral bodies remain fused. There are mild superior endplate compression fractures at L1 and L3 demonstrating up to 30% loss of height centrally. No associated retropulsion. These are technically age indeterminate but likely old. No paravertebral edema to suggest an acute injury. Broad-based posterior disc bulge with ligamentum and facet hypertrophy at the L3-L4 level resulting in moderate central canal narrowing. There is mild central canal narrowing at L2-L3. IMPRESSION: 1. Mild superior endplate compression fractures at L1 and L3. These are technically age indeterminate but likely old. No associated retropulsion. 2. Mild central canal narrowing at L2-L3 and moderate central canal narrowing at L3-L4 due to the degenerative changes. 3. Postoperative changes as described above. 4. Left-sided nephrolithiasis. No hydronephrosis. ACT 112: Negative or not required by law. Electronically signed by: Emory Umana M.D. 09/18/2022 1:[address] 09/18/22 11:[address] DOSE: 1088.76 mGy.cm HISTORY: Back Pain TECHNIQUE: Multiaxial CT images of the thoracic spine were performed and reformatted in the sagittal and coronal plane without the use of contrast. A dose lowering technique was utilized adhering to the principles of ALARA. COMPARISON: Chest CTA 07/28/2020. FINDINGS: Emphysema. No pneumothorax. There is a stable 4 mm nodule within the right lower lobe on image 89. This is likely benign given the long-term stability. Cervical spinal fusion hardware is noted. There is multinodular thyroid gland. There is a small hiatus hernia. Paravertebral soft tissues are unremarkable. Calcified plaque within the normal caliber thoracic aorta. No acute fracture or subluxation within the thoracic spine. There is mild disc space narrowing and small endplate osteophytes seen throughout the majority of the thoracic spine. No significant central canal narrowing by CT technique. IMPRESSION: 1. No acute fractures within the thoracic spine. 2. Mild degenerative disc disease throughout the thoracic spine. 3. Cervical spinal fusion hardware is noted. 4. Additional findings as described above. ACT 112: Negative or not required by law. Electronically signed by: Emory Umana M.D. 09/18/2022 1:[address] 09/19/22 13:18 CT cervical spine wo con CLINICAL HISTORY: Neck Pain TECHNIQUE: Multidetector row helical CT of the cervical spine was performed without administration of intravenous contrast. Coronal and sagittal reformations were obtained. Automated dose lowering techniques and/or adjustment according to patient size were utilized for this exam. Comparison: Comparison is made to CT cervical spine 07/18/2020 FINDINGS: Anterior cervical fixation hardware is seen. Fusion of numerous cervical vertebral bodies seen. Degenerative changes are seen in the visualized spine. Erosive changes are seen in the atlantoaxial joint. The alignment is normal. Subcentimeter thyroid nodules are seen which do not require follow-up by ACR criteria. Emphysema is noted. IMPRESSION: Prominent degenerative changes and ACDF without evidence of acute fracture. ACT 112: Negative or not required by law. Electronically signed by: Cipriano Cool M.D. 09/19/2022 2:59 PM Head MRA 09/20/22 04:59 MR venography head wo con, MR angio neck wo con, MR angio head wo con CLINICAL HISTORY: persistent headache TECHNIQUE: Multiplanar and multisequence MR images of the brain were obtained with noncontrast MR angiography and venography protocol. MR angiography of the neck was also performed. 3-D reconstructions were obtained in multiple planes. Comparison: Comparison is made to CT head 09/18/2022 FINDINGS: Exam is limited by patient motion. Ex vacuo ventriculomegaly and sulcal enlargement is noted compatible with diffuse encephalomalacia. There are no masses, mass effect, or midline shift. No abnormal enhancement is seen. The corpus callosum, pituitary gland, and cerebellar tonsils appear grossly unremarkable. Normal patency and flow is seen in the dural sinuses and visualized cerebral veins. The imaged portions of the paranasal sinuses, mastoid air cells, and orbits are unremarkable. Flow signal consistent with patency is shown within the common carotid, cervical segments of the internal carotid, external carotid, and vertebral arteries. No aneurysm, dissection, hemodynamically significant flow stenosis, nor occlusion is present. Flow signal is shown in the intracranial segments of the internal carotid arteries, the anterior, middle and posterior cerebral arteries, the anterior and posterior communicating arteries, cerebellar arteries, the intracranial segments of the vertebral arteries, and the basilar artery. No aneurysm, arteriovenous malformation, dissection, nor hemodynamically significant flow stenosis is shown. Prominent thyroid is incidentally noted. IMPRESSION: No acute abnormalities. In particular no venous sinus thrombosis or vascular occlusion. ACT 112: Negative or not required by law. Electronically signed by: Cipriano Cool M.D. 09/20/2022 12:55 PM Head/Brain Mag Res Venography 09/20/22 04:59 MR venography head wo con, MR angio neck wo con, MR angio head wo con CLINICAL HISTORY: persistent headache TECHNIQUE: Multiplanar and multisequence MR images of the brain were obtained with noncontrast MR angiography and venography protocol. MR angiography of the neck was also performed. 3-D reconstructions were obtained in multiple planes. Comparison: Comparison is made to CT head 09/18/2022 FINDINGS: Exam is limited by patient motion. Ex vacuo ventriculomegaly and sulcal enlargement is noted compatible with diffuse encephalomalacia. There are no masses, mass effect, or midline shift. No abnormal enhancement is seen. The corpus callosum, pituitary gland, and cerebellar tonsils appear grossly unremarkable. Normal patency and flow is seen in the dural sinuses and visualized cerebral veins. The imaged portions of the paranasal sinuses, mastoid air cells, and orbits are unremarkable. Flow signal consistent with patency is shown within the common carotid, cervical segments of the internal carotid, external carotid, and vertebral arteries. No aneurysm, dissection, hemodynamically significant flow stenosis, nor occlusion is present. Flow signal is shown in the intracranial segments of the internal carotid arteries, the anterior, middle and posterior cerebral arteries, the anterior and posterior communicating arteries, cerebellar arteries, the intracranial segments of the vertebral arteries, and the basilar artery. No aneurysm, arteriovenous malformation, dissection, nor hemodynamically significant flow stenosis is shown. Prominent thyroid is incidentally noted. IMPRESSION: No acute abnormalities. In particular no venous sinus thrombosis or vascular occlusion. ACT 112: Negative or not required by law. Electronically signed by: Cipriano Cool M.D. 09/20/2022 12:55 PM Neck MRA 09/20/22 08:26 MR venography head wo con, MR angio neck wo con, MR angio head wo con CLINICAL HISTORY: persistent headache TECHNIQUE: Multiplanar and multisequence MR images of the brain were obtained with noncontrast MR angiography and venography protocol. MR angiography of the neck was also performed. 3-D reconstructions were obtained in multiple planes. Comparison: Comparison is made to CT head 09/18/2022 FINDINGS: Exam is limited by patient motion. Ex vacuo ventriculomegaly and sulcal enlargement is noted compatible with diffuse encephalomalacia. There are no masses, mass effect, or midline shift. No abnormal enhancement is seen. The corpus callosum, pituitary gland, and cerebellar tonsils appear grossly unremarkable. Normal patency and flow is seen in the dural sinuses and visualized cerebral veins. The imaged portions of the paranasal sinuses, mastoid air cells, and orbits are unremarkable. Flow signal consistent with patency is shown within the common carotid, cervical segments of the internal carotid, external carotid, and vertebral arteries. No aneurysm, dissection, hemodynamically significant flow stenosis, nor occlusion is present. Flow signal is shown in the intracranial segments of the internal carotid arteries, the anterior, middle and posterior cerebral arteries, the anterior and posterior communicating arteries, cerebellar arteries, the intracranial segments of the vertebral arteries, and the basilar artery. No aneurysm, arteriovenous malformation, dissection, nor hemodynamically significant flow stenosis is shown. Prominent thyroid is incidentally noted. IMPRESSION: No acute abnormalities. In particular no venous sinus thrombosis or vascular occlusion. ACT 112: Negative or not required by law. Electronically signed by: Cipriano Cool M.D. 09/20/2022 12:55 PM Brain MRI 09/20/22 14:23 MRI OF THE BRAIN WITHOUT AND WITH IV CONTRAST CLINICAL HISTORY: Concern for cerebritis. Nausea and vomiting. Abnormal no ncontrast MRI of the brain. COMPARISON STUDY: Head CT September 18, 2022 and MRI of the brain performed earlier today. TECHNIQUE: Utilizing a 1.5 Katie magnet and dedicated coil, multiplanar, multiecho imaging of the brain was performed pre and postcontrast administration. T1 pre and postcontrast imaging was performed. IV administration of 5.8 mL of Gadavist contrast was uneventful. FINDINGS: This exam is mildly compromised by motion artifact. The jugular system is unremarkable. Basal cisterns are patent. There are no extra-axial collections. Please note that only a T1 pre and postcontrast study was performed given noncontrast MRI was performed earlier today. There is a 1.9 cm focus of subtle predominantly linear enhancement within the right frontal lobe which corresponds to the focus of signal abnormality on MRI from earlier today. No additional foci of abnormal enhancement are present. IMPRESSION: 1.9 cm focus of subtle predominantly linear enhancement within the right frontal lobe at site of parenchymal signal abnormality on MRI performed earlier today. The finding remains nonspecific and differential considerations include a subacute infarct, neoplasm and cerebritis. A short-term follow-up MRI the brain with and without contrast in one month to ensure resolution is recommended. No additional abnormal enhancing foci. ACT 112: Positive. There are findings on this exam that require communication between the performing entity and the patient following Patient Test Result Information Act ([place] Act 112) guidelines. Electronically signed by: Josesito Villatoro M.D. 09/20/2022 4:11 PM
[2022-09-20] MEDS ORDERED: VANCOMYCIN HCL 1,500 MG in SODIUM CHLORIDE 0.9% 500 ML IV ONE (17:00)
--- NOTE | 2022-09-20 20:01 | Communication Note ---
Date of Service: September 20, [address] Brand ([facility] Lung Transplant physician) over the phone. Recommended patient to be transferred to [facility] for further management due to lack of transplant services here. Discussed with her Arturo over the phone and he is agreeable.
--- NOTE | 2022-09-20 20:10 | Discharge Summary ---
Date of Service September 20, 2022 Admission HPI Per Admitting Provider History obtained from patient and records. 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 Patient presents with generalized weakness, headache, nausea and vomiting for 5 days She also reports low-grade temperature at home. On review of system, patient reports suprapubic pain, increasing urinary frequency and urgency. She also reports pain in her left side of the back She denies vision changes, cough, shortness of breath, abdominal pain or any skin changes. On presentation to the ED, she was hemodynamically stable, febrile to 38.1 C and saturating room air. Lab work revealed no leukocytosis. Hemoglobin was at baseline. She was found to have hyponatremia with sodium of 131. BUN and creatinine slightly elevated from baseline. Discussion was done by ED physician with [facility] transplant team; did not recommend transfer. Recommended infectious work-up and to obtain tacrolimus and everolimus levels in a.m. Discharge Data Allergies Allergy/AdvReac Type Severity Reaction Status Date / Time No Known Allergies Allergy Unverified 09/17/22 15:42 Consultations 09/17/22 15:11 ED Decision to Admit Stat 09/18/22 14:20 Consult Orthopedic Surgery Routine 09/20/22 12:52 Consult Neurology Routine 09/20/22 16:49 Consult Infectious Diseases Routine 09/20/22 19:59 Burn CD for patient Routine Ordered Studies 09/17/22 17:15 US Renal Bladder [US renal/blad retro comp] Routine 09/18/22 00:39 CT head/brain wo con Urgent 09/18/22 11:49 CT lumbar spine wo con Urgent CT thoracic spine wo con Urgent 09/19/22 13:18 CT neck [CT cervical spine wo con] Routine 09/20/22 04:59 MR venography head wo con Urgent MRI Angio Brain [MR angio head wo con] Urgent 09/20/22 05:02 MRI Brain [MR brain wo con] Urgent 09/20/22 08:26 MRI Angio Neck [MR angio neck wo con] Urgent 09/20/22 14:23 MRI Brain [MR brain wo/w con] Stat 09/21/22 14:00 IR lumbar puncture diagnostic Routine Hospital Course (1) UTI (urinary tract infection): (2) Sepsis: Suspected Sepsis due to UTI Cerebritis H/O lung transplant on immunosuppressive therapy Patient presented to the hospital with fever, headache, dysuria Febrile to 38.1 C on admission Infectious work-up so far has been negative. Urine and blood culture negative. Lyme disease negative Patient was treated with emperic cefepime and vancomycine while in patient. MRI brain results reviewed; found to have 2.8 x 2.6 cm T2 hyperintense focus. MRV did not show any sinus thrombosis or vascular occlusion Discussed with neurology; recommended MRI brain with contrast, lumbar puncture and infectious disease consult MRI brain with contrast 1.9 cm focus of subtle predominantly linear enhancement within the right frontal lobe at site of parenchymal Discussed with patient's transplant physician Dr. Brand; patient to be transferred to [facility] for further care. Urinary retention --Renal USD:5 mm nonobstructing left renal calculus. No hydronephrosis. Partial distention of the urinary bladder. -- Urine analysis not suggestive of UTI (3) Hyponatremia: Sodium of 131 on presentation. Improved to 133 Likely hypovolemic hyponatremia Sertraline likely contributing as well Received IV fluids Monitor sodium levels (4) History of lung transplant: H/O lung transplant at [facility] on immunosuppression. ED physician with [facility] transplant team. Recommended to obtain tacrolimus and everolimus levels--Pending On chronic prednisone. Prophylactic Bactrim and acyclovir continued. (5) [id number] deficiency: (6) COPD (chronic obstructive pulmonary disease): Used to be on home O2. Currently saturating on room air. Continue inhalers (7) Diabetes type 2, controlled: Lantus and NovoLog ordered Monitor blood glucose Plan Other conditions; CKD; creatinine slightly increased from baseline. Received IV fluids. Avoiding nephrotoxic agents. Chronic opioid use; continue Mood disordercontinue home meds DVT Px: Heparin SQ Code Status Full code Total Time Total Time Spent Total Time Spent (In Minutes): 45 Total Time Includes: Examination of the Patient, Discharge Planning, Medication Reconciliation, Communication With Other Providers and Other Discharge Plan Discharge Items Patient Disposition: Transfer Acute Care Hospital Reason For Visit: SEPSIS Discharge Diagnosis: Cerebritis Hx of Lung Transplant Activity: Resume your previous activity Non-emergency contact: Primary Care Provider Call non-emergency contact if: you have any medication questions Follow-up/Referrals: August Esposito MD [Primary Care Provider] - Diet: Regular Addtl Attending Provider Instructions: Patient had following medications while inpatient: Current Inpatient Medications Acyclovir (Acyclovir 200 Mg Cap) 400 mg PO DAILY ANIVAL Stop: 10/17/22 20:29 Last Admin: 09/20/22 11:03 Dose: 400 mg Albuterol (Albuterol Hfa 8 Gm Inhaler) 1 puffs INH Q6H PRN PRN Reason: Shortness Of Breath Stop: 10/17/22 19:41 Amlodipine Besylate (Amlodipine Besylate 5 Mg Tab) 5 mg PO QAM ANIVAL Stop: 10/18/22 16:14 Last Admin: 09/20/22 11:03 Dose: 5 mg Azathioprine (Azathioprine 50 Mg Tab) 50 mg PO DAILY ANIVAL Stop: 10/17/22 20:14 Last Admin: 09/20/22 11:04 Dose: 50 mg Azithromycin (Azithromycin 250 Mg Tab) 250 mg PO MoWeFr@0900 ANIVAL Stop: 10/17/22 20:29 Last Admin: 09/20/22 11:05 Dose: 250 mg Carvedilol (Carvedilol 3.125 Mg Tab) 3.125 mg PO BIDM ANIVAL Stop: 10/19/22 11:34 Last Admin: 09/20/22 17:58 Dose: 3.125 mg Citalopram Hydrobromide (Citalopram 40 Mg Tab) 40 mg PO DAILY ANIVAL Stop: 10/18/22 08:59 Last Admin: 09/20/22 11:05 Dose: 40 mg Dextrose (Dextrose 50% 50 Ml Syringe) 25 - 50 ml IV UD PRN; Protocol PRN Reason: Hypoglycemia Protocol Stop: 10/17/22 19:41 Everolimus (Everolimus 0.5 Mg Tabs) 1 each PO Q12H ANIVAL Stop: 10/17/22 21:29 Last Admin: 09/20/22 11:05 Dose: 1 each Fluticasone/Vilanterol (Fluticasone/Vilanterol 100/25mcg 14 Puffs/Inhaler) 1 puffs INH DAILY ANIVAL Stop: 10/17/22 19:41 Last Admin: 09/20/22 11:06 Dose: 1 puffs Glucagon (Glucagon For Inj 1 Mg Vial) 1 mg SQ UD PRN; Protocol PRN Reason: Hypoglycemia Protocol Stop: 10/17/22 19:41 Glucose (Glucose 10 Tab/Tube) 4 - 8 tab PO UD PRN; Protocol PRN Reason: Hypoglycemia Treatment Stop: 10/17/22 19:41 Glucose (Glucose 40% Gel 15 Gm Tube) 15 - 30 gm PO UD PRN; Protocol PRN Reason: Hypoglycemia Protocol Stop: 10/17/22 19:41 Heparin Sodium (Porcine) (Heparin Sod 5,000 Unit/0.5 Ml Vial) 5,000 units SQ Q12H ANIVAL Stop: 10/17/22 20:59 Last Admin: 09/20/22 11:06 Dose: 5,000 units Hydralazine HCl (Hydralazine Hcl 20 Mg/Ml Vial) 5 mg IV Q6H PRN PRN Reason: HypertensionSBP>180orDBP>100 Stop: 10/18/22 16:14 Last Admin: 09/20/22 03:24 Dose: 5 mg Hydromorphone HCl (Hydromorphone Hcl 2 Mg Tab) 2 mg PO Q4H PRN PRN Reason: Pain Stop: 10/01/22 19:41 Last Admin: 09/20/22 16:17 Dose: 2 mg Cefepime HCl 1,000 mg/ Syringe 10 mls @ 5 mls/min IV Q12H ANIVAL; Protocol Stop: 09/28/22 01:59 Last Admin: 09/20/22 14:10 Dose: 5 mls/min Acetaminophen (Ofirmev) 1,000 mg in 100 mls @ 400 mls/hr IV Q8H PRN PRN Reason: Pain or Fever Stop: 09/21/22 11:52 Last Infusion: 09/20/22 14:58 Dose: Infused Insulin Aspart (Insulin Aspart Per Unit Charge) 0 units SC ACHS ANIVAL Stop: 10/17/22 20:59 Last Admin: 09/20/22 17:58 Dose: 4 units Insulin Glargine (Lantus Per Unit Charge) 10 units SC HS ANIVAL Stop: 10/19/22 20:59 Last Admin: 09/19/22 20:50 Dose: 10 units Miscellaneous (Carbohydrates For Hypoglycemia ) 15 - 30 gm PO UD PRN PRN Reason: Hypoglycemia Protocol Stop: 10/17/22 19:41 Miscellaneous Information (Pharmacy Glycemic Mgmt Consult) 1 each N/A UD PRN PRN Reason: Consult Stop: 10/17/22 19:41 Miscellaneous Information (Vancomycin Consult Active) 1 each N/A UD PRN PRN Reason: Consult Stop: 10/20/22 16:37 Multivitamins (Multivitamin Tab) 1 tab PO DAILY ANIVAL Stop: 10/18/22 08:59 Last Admin: 09/20/22 11:06 Dose: 1 tab Ondansetron HCl (Ondansetron Inj 2 Mg/Ml 2 Ml Vial) 4 mg IV Q6H PRN PRN Reason: Nausea Stop: 10/17/22 19:41 Last Admin: 09/20/22 16:17 Dose: 4 mg Oxycodone HCl (Oxycodone Hcl 15 Mg Tabcr (Oxycontin)) 15 mg PO Q12H ANIVAL Stop: 10/01/22 20:29 Last Admin: 09/20/22 11:17 Dose: 15 mg Pantoprazole Sodium (Pantoprazole 40 Mg Tab) 40 mg PO DAILY ANIVAL Stop: 10/18/22 08:59 Last Admin: 09/20/22 11:06 Dose: 40 mg Polyethylene Glycol (Polyethylene (Miralax) 17 Gm Pack) 17 gm PO DAILY PRN PRN Reason: Constipation Stop: 10/17/22 19:41 Potassium Chloride (Potassium Chloride Crtab 20 Meq Tabcr) 20 meq PO DAILY ANIVAL Stop: 10/18/22 08:59 Last Admin: 09/20/22 11:07 Dose: 20 meq Prednisone (Prednisone 5 Mg Tab) 5 mg PO BID ANIVAL Stop: 10/17/22 20:59 Last Admin: 09/20/22 11:07 Dose: 5 mg Tacrolimus (Tacrolimus 1 Mg Cap) 2 mg PO HS ANIVAL Stop: 10/17/22 20:59 Last Admin: 09/19/22 20:50 Dose: 2 mg Tacrolimus (Tacrolimus 0.5 Mg Cap) 1.5 mg PO QAM ANIVAL Stop: 10/18/22 08:59 Last Admin: 09/20/22 11:07 Dose: 1.5 mg Tamsulosin HCl (Tamsulosin Hcl 0.4 Mg Cap) 0.4 mg PO QAM ANIVAL Stop: 10/18/22 12:44 Last Admin: 09/20/22 11:07 Dose: 0.4 mg Trimethoprim/Sulfamethoxazole (Sulfa/Trimeth 400/80mg Tab) 1 tab PO MoWeFr@0900 COUNT INCLUDES THE [facility] Stop: 10/17/22 20:59 Last Admin: 09/20/22 11:07 Dose: 1 tab Pending Studies at Discharge: No Stand-Alone Forms: My [facility] Skilled Items Patient informed of condition?: Yes DNR: No Discharge Level of Care: Other Communicable Disease: No Discharge Prognosis: Stable Lines: Peripheral IV Urinary Catheter: Yes Medications and DC Order Prescriptions: Continued azathioprine 50 mg tablet 50 mg PO DAILY acyclovir 200 mg capsule 400 mg PO DAILY albuterol sulfate 90 mcg/actuation HFA aerosol inhaler 1 - 2 inh INHALATION Q6H PRN (Reason: SOB) fluticasone furoate-vilanterol [Breo Ellipta] 100-25 mcg/dose blister with device 1 inh INHALATION DAILY multivitamin Tablet 1 tab PO DAILY citalopram [Celexa] 40 mg Tablet 40 mg PO DAILY azithromycin 250 mg Tablet 250 mg PO [id number] Rx Instructions: TUESDAY/TUESDAY/TUESDAY sulfamethoxazole-trimethoprim 400-80 mg tablet 1 tab PO [id number] Rx Instructions: Tuesday/Tuesday/Tuesday prednisone 5 mg tablet 5 mg PO BID hydromorphone 2 mg tablet 2 mg PO Q12H PRN (Reason: Pain) potassium chloride 20 mEq tablet,ER particles/crystals 20 meq PO DAILY pantoprazole 40 mg tablet,delayed release (DR/EC) 40 mg PO DAILY sertraline 25 mg tablet See Rx Instructions .ROUTE .COMPLEX Rx Instructions: Take 25mg tablet with 50mg tablet to equal 75mg by mouth once daily sertraline 50 mg tablet See Rx Instructions .ROUTE .COMPLEX Rx Instructions: Take 50mg tablet with 25mg tablet to equal 75mg by mouth once daily tacrolimus 1 mg capsule 2 mg PO HS tacrolimus 0.5 mg capsule 1.5 mg PO QAM insulin lispro 100 unit/mL insulin pen 4 unit SUBCUT BIDWMEAL insulin glargine [Lantus Solostar U-100 Insulin] 100 unit/mL (3 mL) insulin pen 8 unit SUBCUT HS everolimus (immunosuppressive) 0.25 mg Tablet 0.5 mg PO Q12H oxycodone [OxyContin] 15 mg tablet,oral only,ext.rel.12 hr 15 mg PO Q12H Krames/Other Patient Handouts: Managing Type 2 Diabetes Admission Data Admit Date/Time: 09/17/22 15:42 Attending Provider: Juan Luis Nugent Admit Provider: Juan Luis Nugent Primary Care Provider: August Esposito Other Providers: Juan Luis Nugent ; Demetrius Okeefe ; Samuel Yu ; Raphael Covarrubias ; Jose Adan ; Cherelle Joshua ; James Moses I. ; Lisandro Romo II ; Lynnette Samuel ; Tao Rock ; [place] ; Francie Atkinson
[2022-09-20] MEDS: TACROLIMUS 1 MG CAP PO SCH (20:20)
[2022-09-20] MEDS: LANTUS PER UNIT CHARGE SC SCH (20:27)
[2022-09-21] MEDS: ACETAMINOPHEN 1,000 MG/100 ML VIAL IV PRN (00:34)
[2022-09-21] MEDS: CEFEPIME 1,000 MG in SYRINGE 0 ML IV SCH ×2 (01:59→14:33)
[2022-09-21] MEDS: HYDROmorphone HCL 2 MG TAB PO PRN ×4 (02:00→19:17)
[2022-09-21] MEDS ORDERED: HYDROmorphone INJ 0.5 MG/0.5 ML SYR IV STA (04:22)
[2022-09-21 06:35] LABS: Hematocrit (blood only) 27.4 % (37.0-47.0); Hemoglobin 9.2 g/dl (12.0-16.0); Mean Corpuscular Hemoglobin 29.5 pg (25.0-34.0); Mean Corpuscular Hgb Conc 33.6 g/dL (32.0-36.0); Mean Corpuscular Volume 87.8 fL (80.0-100.0); Mean Platelet Volume 9.2 fL (9.4-12.4); Platelet Count 179 K/uL (130-400); RDW Coefficient of Variation 12.9 % (11.5-14.5); RDW Standard Deviation 41.2 fL (36.4-46.3); Red Blood Count 3.12 M/uL (4.20-5.40); White Blood Count 7.66 K/ul (4.8-10.8)
[2022-09-21 06:56] LABS: Echinocytes 2+; Immature Granulocytes # (auto) 0.07 K/uL (0.01-0.20); Immature Granulocytes % (auto) 0.9 %; Lymphocytes % (auto) 2.6 %; Monocytes # (auto) 0.34 K/uL (0.11-0.59); Monocytes % (auto) 4.4 %; Neutrophils # (auto) 7.05 K/uL (1.40-6.50); Neutrophils % (auto) 92.1 %
[2022-09-21 06:58] LABS: Albumin Globulin Ratio 1.2 (0.9-2); Albumin Level 3.1 gm/dl (3.4-5.0); BUN Creatinine Ratio 21.8 (10-20); Bilirubin,Total 0.4 mg/dl (0.2-1.0); Creatinine Clr Calc Pharmacy 25.8 ml/min; Est GFR (African American) 36.6 ml/min; Est GFR (Non-African American) 31.6 ml/min; Globulin 2.6 gm/dl (2.5-4.0); Potassium 4.4 mmol/L (3.5-5.1); Total Protein 5.7 gm/dl (6.0-8.3)
[2022-09-21] MEDS: INSULIN ASPART PER UNIT CHARGE SC SCH ×4 (08:34→20:01)
[2022-09-21] MEDS: POTASSIUM CHLORIDE CRTAB 20 MEQ TABCR PO SCH (08:37)
[2022-09-21] MEDS: TAMSULOSIN HCL 0.4 MG CAP PO SCH (08:37)
[2022-09-21] MEDS: PANTOprazole 40 MG TAB PO SCH (08:37)
[2022-09-21] MEDS: TACROLIMUS 0.5 MG CAP PO SCH (08:37)
[2022-09-21] MEDS: amLODIPine BESYLATE 5 MG TAB PO SCH (08:38)
[2022-09-21] MEDS: carvediloL 3.125 MG TAB PO SCH ×2 (08:38→17:49)
[2022-09-21] MEDS: azaTHIOprine 50 MG TAB PO SCH (08:38)
[2022-09-21] MEDS: CITALOPRAM 40 MG TAB PO SCH (08:38)
[2022-09-21] MEDS: ACYCLOVIR 200 MG CAP PO SCH (08:38)
[2022-09-21] MEDS: MULTIVITAMIN TAB PO SCH (08:38)
[2022-09-21] MEDS: predniSONE 5 MG TAB PO SCH ×2 (08:39→20:00)
[2022-09-21] MEDS: EVEROLIMUS 0.5 MG PO SCH ×2 (08:39→20:00)
[2022-09-21] MEDS: ONDANSETRON INJ 2 MG/ML 2 ML VIAL IV PRN ×2 (08:42→20:00)
[2022-09-21] MEDS: FLUTICASONE/VILANTEROL 100/25MCG 14 PUFFS/INHALER INH SCH (08:48)
--- NOTE | 2022-09-21 08:57 | Pharmacy Report ---
Pharmacy PK ABX Note - Date of Service September 21, 2022 - Assessment and Plan Assessment 67 year old F started on vancomycin yesterday evening (previously on vancomycin 09/17-09/18). Patient with history of lung transplant and is on immunosuppressive therapy. Had presented to hospital with fever, headache, dysuria and concerns for sepsis due to UTI. Urine and blood cultures negative. MRI of brain concerning for cerebritis. Neurology recommending lumbar puncture and infectious disease consult. Per notes, patient likely to be transferred to [facility]. Plan Vancomycin * Loading dose: 1500 mg x 1 given last evening * Random vancomycin level this AM ~17.7 mcg/ml - will order vancomycin 750 mg iv x 1 today * Estimating that patient likely requiring 750 mg iv q 24 hours - this regimen is predicted to achieve target AUC/HAYLEE of 400-600 mg/L.hr and achieve a trough level of ~16 mcg/ml * Scr remains stable today, however estimated t1/2 >24 hours therefore will consider collecting another random level tomorrow AM to assist with further dosing Pharmacy will continue to follow and will adjust dose/frequency as necessary. Thank you. Pharmacy has transitioned to AUC monitoring for vancomycin. AUC/HAYLEE is the preferred PK/PD target and is associated with decreased risk of nephrotoxicity compared to traditional trough targets.
[2022-09-21] MEDS: oxyCODONE HCL 15 MG TABCR (OxyCONTIN) PO SCH ×2 (09:56→20:01)
[2022-09-21] MEDS ORDERED: VANCOMYCIN HCL 750 MG in SODIUM CHLORIDE 0.9% 250 ML IV ONE (12:00)
--- NOTE | 2022-09-21 15:04 | Discharge Summary ---
Date of Service September 21, 2022 Admission HPI Per Admitting Provider History obtained from patient and records. 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 Patient presents with generalized weakness, headache, nausea and vomiting for 5 days She also reports low-grade temperature at home. On review of system, patient reports suprapubic pain, increasing urinary frequency and urgency. She also reports pain in her left side of the back She denies vision changes, cough, shortness of breath, abdominal pain or any skin changes. On presentation to the ED, she was hemodynamically stable, febrile to 38.1 C and saturating room air. Lab work revealed no leukocytosis. Hemoglobin was at baseline. She was found to have hyponatremia with sodium of 131. BUN and creatinine slightly elevated from baseline. Discussion was done by ED physician with [facility] transplant team; did not recommend transfer. Recommended infectious work-up and to obtain tacrolimus and everolimus levels in a.m. Admission Exam Per Admitting Provider Constitutional: Awake, alert, ill appearing Respiratory: normal respiratory effort, lungs clear to auscultation, no wheeze, rales, rhonchi. Normal insp/exp effort, no accessory muscle use Cardiovascular: RRR, no murmur, no edema Vessels: no JVD or carotid bruit Chest: normal inspection of chest Abdomen: Suprapubic tenderness present. Left costophrenic angle tenderness present Musculoskeletal: no cyanosis or clubbing, extremities motor strength 5/5 Skin: no rashes, warm and dry normal turgor Neurologic: PERRL, EOMI, accommodation nl, no face palsy, no dysarthria CN's II- XI intact bilaterally and moves all extremities Psychiatric: A+Ox3, euthymic affect Lymphatic: no cervical or axillary lymphadenopathy : deferred Principal Diagnosis Suspected Sepsis due to UTI Cerebritis H/O lung transplant on immunosuppressive therapy Discharge Exam Constitutional: Awake, alert, ill appearing Respiratory: normal respiratory effort, lungs clear to auscultation, no wheeze, rales, rhonchi. Normal insp/exp effort, no accessory muscle use Cardiovascular: RRR, no murmur, no edema Vessels: no JVD or carotid bruit Chest: normal inspection of chest Abdomen: Soft, nontender. Musculoskeletal: no cyanosis or clubbing, extremities motor strength 5/5 Skin: no rashes, warm and dry normal turgor Neurologic: Slight decrease in facial expression on the left side. Psychiatric: A+Ox3, euthymic affect Lymphatic: no cervical or axillary lymphadenopathy : deferred Discharge Data Allergies Allergy/AdvReac Type Severity Reaction Status Date / Time No Known Allergies Allergy Unverified 09/17/22 15:42 Consultations 09/17/22 15:11 ED Decision to Admit Stat 09/18/22 14:20 Consult Orthopedic Surgery Routine 09/20/22 12:52 Consult Neurology Routine 09/20/22 19:59 Burn CD for patient Routine Ordered Studies 09/17/22 17:15 US Renal Bladder [US renal/blad retro comp] Routine 09/18/22 00:39 CT head/brain wo con Urgent 09/18/22 11:49 CT lumbar spine wo con Urgent CT thoracic spine wo con Urgent 09/19/22 13:18 CT neck [CT cervical spine wo con] Routine 09/20/22 04:59 MR venography head wo con Urgent MRI Angio Brain [MR angio head wo con] Urgent 09/20/22 05:02 MRI Brain [MR brain wo con] Urgent 09/20/22 08:26 MRI Angio Neck [MR angio neck wo con] Urgent 09/20/22 14:23 MRI Brain [MR brain wo/w con] Stat Hospital Course (1) UTI (urinary tract infection): (2) Sepsis: Patient is a 67-year-old female with past medical history of lung transplant on chronic immunosuppressive regimen and antibacterial/antiviral prophylaxis (07/2019) who presented to the hospital with generalized weakness, headache, nausea and vomiting for 5 days. On presentation to the ED, she was hemodynamically stable, febrile to 38.1 C and saturating room air. Lab work revealed no leukocytosis. Hemoglobin was at baseline. She was found to have hyponatremia with sodium of 131. BUN and creatinine slightly elevated from baseline. Discussion was done by ED physician with [facility] transplant team; did not recommend transfer. Recommended infectious work-up and to obtain tacrolimus and everolimus levels in a.m. She was managed for following conditions during the hospitalization. 1)Suspected Sepsis Cerebritis H/O lung transplant on immunosuppressive therapy Patient presented to the hospital with fever, headache, dysuria Febrile to 38.1 C on admission. Hemodynamic stable. Infectious work-up so far has been negative. Urine and blood culture negative. Lyme disease negative Patient was treated with emperic cefepime and vancomycine while in patient. MRI brain was done as patient continued to complain of severe headache; results reviewed; found to have 2.8 x 2.6 cm T2 hyperintense focus with mild mass effect within right frontal lobe. MRV did not show any sinus thrombosis or vascular occlusion Discussed with neurology; recommended MRI brain with contrast, lumbar puncture and infectious disease consult MRI brain with contrast 1.9 cm focus of subtle predominantly linear enhancement within the right frontal lobe at site of parenchymal Discussed with patient's transplant physician Dr. Brand; patient to be transferred to [facility] for further care. Patient to have lumbar puncture and infectious disease evaluation at [facility]. 2) Urinary retention Found to have urinary retention on admission --Renal USD:5 mm nonobstructing left renal calculus. No hydronephrosis. Partial distention of the urinary bladder. -- Urine analysis not suggestive of UTI Trial of void successful. Total Time Total Time Spent Total Time Spent (In Minutes): 45 Discharge Plan Discharge Items Patient Disposition: Transfer Acute Care Hospital Reason For Visit: SEPSIS Discharge Diagnosis: Cerebritis Hx of Lung Transplant Activity: Resume your previous activity Non-emergency contact: Primary Care Provider Call non-emergency contact if: you have any medication questions Follow-up/Referrals: August Esposito MD [Primary Care Provider] - Diet: Regular Addtl Attending Provider Instructions: Patient had following medications while inpatient: Current Inpatient Medications Acyclovir (Acyclovir 200 Mg Cap) 400 mg PO DAILY [facility] Stop: 10/17/22 20:29 Last Admin: 09/20/22 11:03 Dose: 400 mg Albuterol (Albuterol Hfa 8 Gm Inhaler) 1 puffs INH Q6H PRN PRN Reason: Shortness Of Breath Stop: 10/17/22 19:41 Amlodipine Besylate (Amlodipine Besylate 5 Mg Tab) 5 mg PO QAM [facility]AL Stop: 10/18/22 16:14 Last Admin: 09/20/22 11:03 Dose: 5 mg Azathioprine (Azathioprine 50 Mg Tab) 50 mg PO DAILY [facility] Stop: 10/17/22 20:14 Last Admin: 09/20/22 11:04 Dose: 50 mg Azithromycin (Azithromycin 250 Mg Tab) 250 mg PO MoWeFr@0900 [facility] Stop: 10/17/22 20:29 Last Admin: 09/20/22 11:05 Dose: 250 mg Carvedilol (Carvedilol 3.125 Mg Tab) 3.125 mg PO BIDM [facility] Stop: 10/19/22 11:34 Last Admin: 09/20/22 17:58 Dose: 3.125 mg Citalopram Hydrobromide (Citalopram 40 Mg Tab) 40 mg PO DAILY [facility] Stop: 10/18/22 08:59 Last Admin: 09/20/22 11:05 Dose: 40 mg Dextrose (Dextrose 50% 50 Ml Syringe) 25 - 50 ml IV UD PRN; Protocol PRN Reason: Hypoglycemia Protocol Stop: 10/17/22 19:41 Everolimus (Everolimus 0.5 Mg Tabs) 1 each PO Q12H [facility] Stop: 10/17/22 21:29 Last Admin: 09/20/22 11:05 Dose: 1 each Fluticasone/Vilanterol (Fluticasone/Vilanterol 100/25mcg 14 Puffs/Inhaler) 1 puffs INH DAILY [facility] Stop: 10/17/22 19:41 Last Admin: 09/20/22 11:06 Dose: 1 puffs Glucagon (Glucagon For Inj 1 Mg Vial) 1 mg SQ UD PRN; Protocol PRN Reason: Hypoglycemia Protocol Stop: 10/17/22 19:41 Glucose (Glucose 10 Tab/Tube) 4 - 8 tab PO UD PRN; Protocol PRN Reason: Hypoglycemia Treatment Stop: 10/17/22 19:41 Glucose (Glucose 40% Gel 15 Gm Tube) 15 - 30 gm PO UD PRN; Protocol PRN Reason: Hypoglycemia Protocol Stop: 10/17/22 19:41 Heparin Sodium (Porcine) (Heparin Sod 5,000 Unit/0.5 Ml Vial) 5,000 units SQ Q12H [facility] Stop: 10/17/22 20:59 Last Admin: 09/20/22 11:06 Dose: 5,000 units Hydralazine HCl (Hydralazine Hcl 20 Mg/Ml Vial) 5 mg IV Q6H PRN PRN Reason: HypertensionSBP>180orDBP>100 Stop: 10/18/22 16:14 Last Admin: 09/20/22 03:24 Dose: 5 mg Hydromorphone HCl (Hydromorphone Hcl 2 Mg Tab) 2 mg PO Q4H PRN PRN Reason: Pain Stop: 10/01/22 19:41 Last Admin: 09/20/22 16:17 Dose: 2 mg Cefepime HCl 1,000 mg/ Syringe 10 mls @ 5 mls/min IV Q12H [facility]; Protocol Stop: 09/28/22 01:59 Last Admin: 09/20/22 14:10 Dose: 5 mls/min Acetaminophen (Ofirmev) 1,000 mg in 100 mls @ 400 mls/hr IV Q8H PRN PRN Reason: Pain or Fever Stop: 09/21/22 11:52 Last Infusion: 09/20/22 14:58 Dose: Infused Insulin Aspart (Insulin Aspart Per Unit Charge) 0 units SC ACHS [facility] Stop: 10/17/22 20:59 Last Admin: 09/20/22 17:58 Dose: 4 units Insulin Glargine (Lantus Per Unit Charge) 10 units SC HS [facility] Stop: 10/19/22 20:59 Last Admin: 09/19/22 20:50 Dose: 10 units Miscellaneous (Carbohydrates For Hypoglycemia ) 15 - 30 gm PO UD PRN PRN Reason: Hypoglycemia Protocol Stop: 10/17/22 19:41 Miscellaneous Information (Pharmacy Glycemic Mgmt Consult) 1 each N/A UD PRN PRN Reason: Consult Stop: 10/17/22 19:41 Miscellaneous Information (Vancomycin Consult Active) 1 each N/A UD PRN PRN Reason: Consult Stop: 10/20/22 16:37 Multivitamins (Multivitamin Tab) 1 tab PO DAILY [facility] Stop: 10/18/22 08:59 Last Admin: 09/20/22 11:06 Dose: 1 tab Ondansetron HCl (Ondansetron Inj 2 Mg/Ml 2 Ml Vial) 4 mg IV Q6H PRN PRN Reason: Nausea Stop: 10/17/22 19:41 Last Admin: 09/20/22 16:17 Dose: 4 mg Oxycodone HCl (Oxycodone Hcl 15 Mg Tabcr (Oxycontin)) 15 mg PO Q12H [facility] Stop: 10/01/22 20:29 Last Admin: 09/20/22 11:17 Dose: 15 mg Pantoprazole Sodium (Pantoprazole 40 Mg Tab) 40 mg PO DAILY [facility] Stop: 10/18/22 08:59 Last Admin: 09/20/22 11:06 Dose: 40 mg Polyethylene Glycol (Polyethylene (Miralax) 17 Gm Pack) 17 gm PO DAILY PRN PRN Reason: Constipation Stop: 10/17/22 19:41 Potassium Chloride (Potassium Chloride Crtab 20 Meq Tabcr) 20 meq PO DAILY [facility] Stop: 10/18/22 08:59 Last Admin: 09/20/22 11:07 Dose: 20 meq Prednisone (Prednisone 5 Mg Tab) 5 mg PO BID [facility] Stop: 10/17/22 20:59 Last Admin: 09/20/22 11:07 Dose: 5 mg Tacrolimus (Tacrolimus 1 Mg Cap) 2 mg PO HS [facility] Stop: 10/17/22 20:59 Last Admin: 09/19/22 20:50 Dose: 2 mg Tacrolimus (Tacrolimus 0.5 Mg Cap) 1.5 mg PO QAM [facility] Stop: 10/18/22 08:59 Last Admin: 09/20/22 11:07 Dose: 1.5 mg Tamsulosin HCl (Tamsulosin Hcl 0.4 Mg Cap) 0.4 mg PO QAM [facility] Stop: 10/18/22 12:44 Last Admin: 09/20/22 11:07 Dose: 0.4 mg Trimethoprim/Sulfamethoxazole (Sulfa/Trimeth 400/80mg Tab) 1 tab PO MoWeFr@0900 [facility] Stop: 10/17/22 20:59 Last Admin: 09/20/22 11:07 Dose: 1 tab Pending Studies at Discharge: No Stand-Alone Forms: [facility] Skilled Items Patient informed of condition?: Yes DNR: No Discharge Level of Care: Other Communicable Disease: No Discharge Prognosis: Stable Lines: Peripheral IV Urinary Catheter: Yes Medications and DC Order Prescriptions: Continued azathioprine 50 mg tablet 50 mg PO DAILY acyclovir 200 mg capsule 400 mg PO DAILY albuterol sulfate 90 mcg/actuation HFA aerosol inhaler 1 - 2 inh INHALATION Q6H PRN (Reason: SOB) fluticasone furoate-vilanterol [Breo Ellipta] 100-25 mcg/dose blister with device 1 inh INHALATION DAILY multivitamin Tablet 1 tab PO DAILY citalopram [Celexa] 40 mg Tablet 40 mg PO DAILY azithromycin 250 mg Tablet 250 mg PO [id number] Rx Instructions: TUESDAY/TUESDAY/TUESDAY sulfamethoxazole-trimethoprim 400-80 mg tablet 1 tab PO [id number] Rx Instructions: Tuesday/Tuesday/Tuesday prednisone 5 mg tablet 5 mg PO BID hydromorphone 2 mg tablet 2 mg PO Q12H PRN (Reason: Pain) potassium chloride 20 mEq tablet,ER particles/crystals 20 meq PO DAILY pantoprazole 40 mg tablet,delayed release (DR/EC) 40 mg PO DAILY sertraline 25 mg tablet See Rx Instructions .ROUTE .COMPLEX Rx Instructions: Take 25mg tablet with 50mg tablet to equal 75mg by mouth once daily sertraline 50 mg tablet See Rx Instructions .ROUTE .COMPLEX Rx Instructions: Take 50mg tablet with 25mg tablet to equal 75mg by mouth once daily tacrolimus 1 mg capsule 2 mg PO HS tacrolimus 0.5 mg capsule 1.5 mg PO QAM insulin lispro 100 unit/mL insulin pen 4 unit SUBCUT BIDWMEAL insulin glargine [Lantus Solostar U-100 Insulin] 100 unit/mL (3 mL) insulin pen 8 unit SUBCUT HS everolimus (immunosuppressive) 0.25 mg Tablet 0.5 mg PO Q12H oxycodone [OxyContin] 15 mg tablet,oral only,ext.rel.12 hr 15 mg PO Q12H Discharge Orders: Discharge Order (Routine); Ordered 09/21/22 Ordered By: Lawrence Heath/Other Patient Handouts: Managing Type 2 Diabetes Admission Data Admit Date/Time: 09/17/22 15:42 Attending Provider: Juan Luis Nugent Admit Provider: Juan Luis Nugent Primary Care Provider: August Esposito Other Providers: Juan Luis Nugent ; Demetrius Okeefe ; Samuel Yu ; Raphael Covarrubias
[2022-09-21] MEDS ORDERED: VANCOMYCIN HCL 750 MG in SODIUM CHLORIDE 0.9% 250 ML IV SCH (18:00)
[2022-09-21] MEDS ORDERED: ACETAMINOPHEN 1,000 MG/100 ML VIAL IV STA (18:15)
[2022-09-21] MEDS: TACROLIMUS 1 MG CAP PO SCH (20:00)
[2022-09-21] MEDS: LANTUS PER UNIT CHARGE SC SCH (20:01)
== END 2022-09-21 20:30 | disposition short-term general hospital (02) | DRG 871 ==
LOC: ED 12:02 → 4W 15:42 → SUATTDRO 15:42 → 4W 19:13

== ENCOUNTER 2023-05-23 14:49 | Inpatient (IN) ==
--- NOTE | 2023-05-23 15:00 | ED Triage Note ---
Date of Service May 23, 2023 Provider in Triage Author: Roldan Claire History of Present Illness This patient was briefly evaluated while in triage. An abbreviated physical exam was performed. This patient is a 67-year-old Female who presents to the ED for evaluation of left sided chest and back pain that began 2 days ago. Feels short of breath beyond baseline. Had low O2 sat at home after walking up stairs. No fevers. No N/V. History of lung transplant 3 years ago. History of PE. Now on Eliquis. No urinary symptoms. Physical Exam CONSTITUTIONAL: anxious appearing SKIN: pink, warm, dry CARDIAC: regular rate and rhythm RESPIRATORY: slightly tachypneic, R lung base decreased breath sounds, diffuse expiratory wheezes Initial orders for labs and / or imaging were placed and patient was placed in the waiting area until a bed is available. Please see further documentation for the full ED course.
[2023-05-23 15:33] LABS: Basophils # (auto) 0.02 K/uL (0.00-0.20); Basophils % (auto) 0.3 %; Eosinophils # (auto) 0.01 K/uL (0.00-0.50); Eosinophils % (auto) 0.1 %; Hematocrit (blood only) 34.6 % (37.0-47.0); Hemoglobin 11.4 g/dl (12.0-16.0); Immature Granulocytes # (auto) 0.02 K/uL (0.01-0.20); Immature Granulocytes % (auto) 0.3 %; Lymphocytes # (auto) 0.35 K/uL (1.20-3.40); Lymphocytes % (auto) 5.2 %; Mean Corpuscular Hemoglobin 29.5 pg (25.0-34.0); Mean Corpuscular Hgb Conc 32.9 g/dL (32.0-36.0); Mean Corpuscular Volume 89.6 fL (80.0-100.0); Mean Platelet Volume 9.6 fL (9.4-12.4); Monocytes # (auto) 0.36 K/uL (0.11-0.59); Monocytes % (auto) 5.3 %; Neutrophils # (auto) 6.01 K/uL (1.40-6.50); Neutrophils % (auto) 88.8 %; Platelet Count 134 K/uL (130-400); RDW Coefficient of Variation 12.9 % (11.5-14.5); RDW Standard Deviation 42.4 fL (36.4-46.3); Red Blood Count 3.86 M/uL (4.20-5.40); White Blood Count 6.77 K/ul (4.8-10.8)
--- NOTE | 2023-05-23 15:38 | XRay Report ---
XR chest 1V not portable HISTORY: 67 years-old Female L sided chest pain, hx transplant acute left-sided chest pain COMPARISON: 12/16/2022 TECHNIQUE: AP view of the chest FINDINGS: Cardiomediastinal and hilar silhouettes are unchanged. Surgical clips are again noted projected over the mediastinum. Cervical spinal fusion hardware. No pneumothorax, pleural effusion or pulmonary chiki a. Unchanged costophrenic angle blunting. Chronic interstitial coarsening of the left lung with mild volume loss. IMPRESSION: Chronic findings as above without acute process. ACT 112: Negative or not required by law. The above report was generated using voice recognition software. It may contain grammatical, syntax o r spelling errors. Electronically signed by: Tom Landeros M.D. 05/23/2023 3:36 PM
[2023-05-23 15:48] LABS: Alanine Aminotransferase 15 U/L (7-52); Albumin Globulin Ratio 1.2 (0.9-2); Alkaline Phosphatase 60 U/L (34-104); Anion Gap 6 (3-11); Aspartate Aminotransferase 28 U/L (13-39); BUN Creatinine Ratio 14.4 (10-20); Bilirubin,Total 0.4 mg/dl (0.2-1.0); Blood Urea Nitrogen 36 mg/dl (6-23); Calcium 9.5 mg/dl (8.6-10.3); Carbon Dioxide 24 mmol/L (21-32); Chloride 105 mmol/L (98-107); Est GFR (African American) 22.1 ml/min; Est GFR (Non-African American) 19.1 ml/min; Globulin 3.3 gm/dl (2.5-4.0); Glucose 163 mg/dl (70-99(Fasting)); Lipase 69 U/L (11-82); Potassium 5.1 mmol/L (3.5-5.1); Sodium 135 mmol/L (136-145); Total Protein 7.3 gm/dl (6.0-8.3)
[2023-05-23 15:54] LABS: Troponin I High Sensitivity 19.2 pg/ml (0-14)
--- NOTE | 2023-05-23 16:46 | Electrocardiogram Report ---
Test Reason : Blood Pressure : / mmHG Vent. Rate : 081 BPM Atrial Rate : 081 BPM P-R Int : 162 ms QRS Dur : 078 ms QT Int : 416 ms P-R-T Axes : 096 076 132 degrees QTc Int : 483 ms Normal sinus rhythm Abnormal ECG When compared with ECG of 16-DEC-2022 13:07, No significant change was found Confirmed by Yehuda Schneider ([id number]) on 05/23/2023 4:46:07 PM Referred By: Confirmed By:Lorenzo Schneider
[2023-05-23] MEDS ORDERED: fentaNYL citrate PF 100 MCG/2 ML VIAL IV STA (18:59)
[2023-05-23] MEDS ORDERED: SODIUM CHLORIDE 0.9% 1,000 ML IV ONE (18:59)
--- NOTE | 2023-05-23 19:15 | Emergency Department Note ---
Impression & Plan Shortness of breath, Non-ST elevation OR (NSTEMI), Acute kidney injury superimposed on chronic kidney disease, Elevated brain natriuretic peptide (BNP) level, Pulmonary hypertension ED Provider Note HISTORY OF PRESENT ILLNESS: Patient is a 67-year-old female presenting with left lower chest pain. Patient reports that 3 days ago she started having pain in her left lower chest that radiates into her left mid back. She states that it hurts when she takes a big deep breath. She states that it feels like a sharp pain. She has been significantly more short of breath in the last 3 days. States that she has not had a fever. She has a previous left-sided lung transplant secondary to alpha-1 antitrypsin deficiency. She denies any significant cough. States that yesterday she was significantly short of breath and checked her pulse ox and it was 95% on room air but when she walked up her stairs she was noted to be 84%. She does not wear any supplemental oxygen. Reports that any sort of exertion seems to make her shortness of breath and chest pain worse. Denies any history of cardiac stents. She does have a previous history of bilateral PEs and was on Eliquis. However, she reports that she was off of her Eliquis for a while per her doctor and her hospice coordinator had restarted her on Eliquis starting 2 weeks ago. She denies any recent travel or recent sick contact exposures. She is on chronic prednisone and has been taking her antirejection medications as instructed. ROS: as above PHYSICAL EXAM: Constitutional: Patient appears in no acute distress. HENT: Head: Normocephalic and atraumatic. Eyes: EOMI, PERRL Mouth/Throat: Mucous membranes moist. Neck: Trachea midline. Neck supple. Cardiovascular: RRR, No murmurs, rubs or gallops. Intact distal pulses. Pulmonary/Chest: No respiratory distress. Breath sounds clear and equal bilaterally. No wheezes or rales. Abdominal: Abdomen soft, no tenderness, rebound or guarding. Musculoskeletal: No edema, tenderness or deformity noted. Skin: Warm and dry. No rash, erythema, pallor or cyanosis Psychiatric: Appropriate mood and affect for situation. Neurological: Alert and keenly responsive. CN II-XII grossly intact, moving all extremities equally and fully. MDM: - Vitals signs showed hypertension - History obtained via patient. Patient presents with left lower chest pain. Patient reports that 3 days ago she started having pain in her left lower chest that radiated into her left mid back. States that her pain is worse when she takes a deep breath. Has a history of PEs and is previously been on Eliquis and her Eliquis was restarted about 2 weeks ago. She does have a history of a left lung transplant secondary to alpha-1 antitrypsin deficiency. She denies any fevers or significant cough. Reports that she became hypoxic to 84% last night while ambulating. - Chronic conditions affecting care: hx of PE; GERD; depression; alpha-1 antitrypsin deficiency; COPD; HLD - Differential diagnoses include, but are not limited to: Congestive heart failure; acute coronary syndrome; COPD/asthma exacerbation; pulmonary edema; pulmonary embolism; pneumonia; pneumothorax; viral syndrome - Order placed for continuous cardiac monitoring. At this time, monitor showed rate of 75 bpm with normal sinus rhythm, per my interpretation. - External medical records reviewed. Discharge summary dated 09/21/2022 was reviewed. Patient had been admitted to the hospital for sepsis secondary to a UTI. - EKG interpreted by myself showed normal sinus rhythm. Rate 81 bpm. QTc 416. No obvious acute ischemic changes. Significant artifact on baseline. - Laboratory workup interpreted by myself showed normal WBC; stable electrolytes; elevated troponin (19.2); elevated BNP (920); COLT on CKD (Cr 2.5); normal lipase - Discussed obtaining CT PE on patient given her kidney function. Discussed risks and benefits given her history of presenting illness and her current kidney function. She was agreeable to CT scan. She is given 1 L normal saline for IV hydration. - Repeat troponin down to 14.3) - CXR negative for pneumonia, per my interpretation - CT PE negaitve. Noted to have evidence of small left pleural effusion and pulmonary hypertension. No PE. - Viral respiratory panel negative. - Patient initially given 50 mcg IV fentanyl for pain control. - Her BP became significantly elevated to >200s systolic. Given 10 mg IV hydralazine with slight improvement. - Discussion was had with dog daycare provider about patient's case and need for admission - Hospitalist consulted for admission - Patient admitted to [facility] for further evaluation and management. ASSESSMENT AND PLAN: Diagnosis: shortness of breath; left pleural effusion; NSTEMI; elevated BNP; COLT on CKD; pulmonary hypertension Plan: admit Past Med/Surg History Medical History (Updated 05/24/23 @ 00:00 by Mary Roberts MD) Chronic back pain Degenerative disc disease Pulmonary embolism 2008--reason unknown, no blood thinners Hyperlipidemia Heart murmur Coronary artery disease Chronic respiratory failure with hypoxia 4L home O2 GERD (gastroesophageal reflux disease) Chronic pain syndrome Depression H/O lymphoma Diabetes type 2, controlled Mfhpe-4-albnpdpllel deficiency COPD (chronic obstructive pulmonary disease) Surgical History (Updated 12/31/22 @ 00:42 by Jose Her) History of dilatation and curettage History of bilateral tubal ligation History of total hysterectomy with bilateral salpingo-oophorectomy (BSO) History of lumbar spinal fusion History of fusion of cervical spine normal ROM Hx of arthroscopy of right knee History of colonoscopy History of vascular access device left chest APort History of tooth extraction History of tonsillectomy History of bronchoscopy multiple Family History Father Family history of diabetes mellitus Sister Family history of diabetes mellitus Other No family history of adverse response to anesthesia Social History Smoking Status: Unknown if ever smoked Second Hand Exposure: No; Do You Dip or Chew Tobacco: No; Hx Alcohol Use: No Hx Substance Use: No Preferred Language: Hebrew Communication Ability: Effective Bead Stringer Required: No Beliefs That Will Affect Care: None Current Living Situation: Spouse Current Living Situation Comment: home with Feels Safe at Home: Yes Assistive Devices: None Allergies Allergies Allergy/AdvReac Type Severity Reaction Status Date / Time No Known Allergies Allergy Unverified 09/17/22 15:42 Home Meds Home Medications Medication Instructions Recorded Confirmed acyclovir 200 mg capsule 200 mg PO AMPM 09/17/22 05/23/23 albuterol sulfate 90 mcg/actuation 1 - 2 inh inhalation Q6H PRN SOB 09/17/22 05/23/23 aerosol inhaler azithromycin 250 mg tablet 500 mg PO 3XWK 09/17/22 05/23/23 citalopram 40 mg tablet (Celexa) 40 mg PO DAILY 09/17/22 05/23/23 everolimus (immunosuppressive) 0.5 mg PO QAM 09/17/22 05/23/23 0.25 mg tablet (Zortress) fluticasone furoate 100 1 inh inhalation DAILY 09/17/22 05/23/23 mcg-vilanterol 25 mcg/dose inhalation powder (Breo Ellipta) hydromorphone 2 mg tablet 2 mg PO Q12H PRN Pain 09/17/22 05/23/23 (Dilaudid) insulin glargine 100 unit/mL (3 See Rx Instructions .Route .COMPLEX 09/17/22 05/23/23 mL) subcutaneous pen (Lantus Solostar U-100 Insulin) insulin lispro 100 unit/mL 4 unit subcut BIDWMEAL 09/17/22 05/23/23 subcutaneous pen multivitamin 1 tab PO DAILY 09/17/22 05/23/23 oxycodone 15 mg tablet,crush 15 mg PO Q12H 09/17/22 05/23/23 resistant,extended release 12 hr (OxyContin) pantoprazole 40 mg tablet,delayed 40 mg PO DAILY 09/17/22 05/23/23 release potassium chloride 20 mEq 20 meq PO DAILY 09/17/22 05/23/23 tablet,extended release(part/cryst) (Klor-Con M) prednisone 5 mg tablet 5 mg PO QAM 09/17/22 05/23/23 sulfamethoxazole 400 1 tab PO 2XWK 09/17/22 05/23/23 mg-trimethoprim 80 mg tablet tacrolimus 0.5 mg capsule, 0.5 mg PO QAM 09/17/22 05/23/23 immediate-release apixaban 2.5 mg tablet (Eliquis) 2.5 mg PO DAILY 05/23/23 05/23/23 fluconazole 200 mg tablet 200 mg PO DAILY 05/23/23 05/23/23 ondansetron HCl 4 mg tablet 4 mg PO UD PRN n/v 05/23/23 05/23/23 Results & Data (ED) Vital Signs Vital Signs - 24 hr 05/23/23 14:55 05/23/23 18:59 05/23/23 19:02 Temperature 36.3 C L Temperature Source Temporal Artery Scan Pulse Rate 79 Pulse Rate [Finger] 71 Pulse Rate from SpO2 Sensor Pulse Rhythm Respiratory Rate 18 21 Respiratory Effort / Characteristics Non-Labored Spontaneous Respiratory Depth Normal Respiratory Pattern Regular Blood Pressure 155/57 H Blood Pressure [Left Arm] 194/91 H Blood Pressure Mean 89 Blood Pressure Mean [Left Arm] 125 Pulse Oximetry 93 96 Pulse Oximetry [Exercises] 90 Oxygen Delivery Method Room Air Room Air Room Air Oxygen Flow Rate 0 Sepsis Recent Fever Within 48 Hours No Sepsis New/Unexplained Change in Mental Status N/A Sepsis Action Taken by Nursing No Action Required 05/23/23 19:06 05/23/23 19:06 05/23/23 19:10 Temperature Temperature Source Pulse Rate 69 68 74 Pulse Rate [Finger] Pulse Rate from SpO2 Sensor 68 75 Pulse Rhythm Respiratory Rate 14 21 Respiratory Effort / Characteristics Respiratory Depth Respiratory Pattern Blood Pressure Blood Pressure [Left Arm] Blood Pressure Mean Blood Pressure Mean [Left Arm] Pulse Oximetry 98 98 Pulse Oximetry [Exercises] Oxygen Delivery Method Oxygen Flow Rate Sepsis Recent Fever Within 48 Hours Sepsis New/Unexplained Change in Mental Status Sepsis Action Taken by Nursing 05/23/23 19:20 05/23/23 19:30 05/23/23 19:40 Temperature Temperature Source Pulse Rate 64 63 67 Pulse Rate [Finger] Pulse Rate from SpO2 Sensor 64 65 66 Pulse Rhythm Respiratory Rate 20 21 15 Respiratory Effort / Characteristics Respiratory Depth Respiratory Pattern Blood Pressure Blood Pressure [Left Arm] Blood Pressure Mean Blood Pressure Mean [Left Arm] Pulse Oximetry 92 91 93 Pulse Oximetry [Exercises] Oxygen Delivery Method Oxygen Flow Rate Sepsis Recent Fever Within 48 Hours Sepsis New/Unexplained Change in Mental Status Sepsis Action Taken by Nursing 05/23/23 19:41 05/23/23 19:41 05/23/23 19:50 Temperature Temperature Source Pulse Rate 64 70 Pulse Rate [Finger] Pulse Rate from SpO2 Sensor 65 70 Pulse Rhythm Respiratory Rate 18 20 Respiratory Effort / Characteristics Respiratory Depth Respiratory Pattern Blood Pressure 188/76 H Blood Pressure [Left Arm] Blood Pressure Mean 141 Blood Pressure Mean [Left Arm] Pulse Oximetry 94 95 Pulse Oximetry [Exercises] Oxygen Delivery Method Oxygen Flow Rate Sepsis Recent Fever Within 48 Hours Sepsis New/Unexplained Change in Mental Status Sepsis Action Taken by Nursing 05/23/23 20:00 05/23/23 20:07 05/23/23 20:08 Temperature Temperature Source Pulse Rate 67 Pulse Rate [Finger] 71 Pulse Rate from SpO2 Sensor 67 Pulse Rhythm Respiratory Rate 17 16 Respiratory Effort / Characteristics Respiratory Depth Respiratory Pattern Blood Pressure Blood Pressure [Left Arm] 188/76 H Blood Pressure Mean Blood Pressure Mean [Left Arm] 113 Pulse Oximetry 96 96 96 Pulse Oximetry [Exercises] Oxygen Delivery Method Room Air Room Air Oxygen Flow Rate 0 Sepsis Recent Fever Within 48 Hours Sepsis New/Unexplained Change in Mental Status Sepsis Action Taken by Nursing 05/23/23 20:10 05/23/23 20:27 05/23/23 20:29 Temperature Temperature Source Pulse Rate 72 Pulse Rate [Finger] Pulse Rate from SpO2 Sensor 81 79 Pulse Rhythm Respiratory Rate 18 Respiratory Effort / Characteristics Respiratory Depth Respiratory Pattern Blood Pressure Blood Pressure [Left Arm] Blood Pressure Mean Blood Pressure Mean [Left Arm] Pulse Oximetry 94 91 Pulse Oximetry [Exercises] Oxygen Delivery Method Oxygen Flow Rate Sepsis Recent Fever Within 48 Hours Sepsis New/Unexplained Change in Mental Status Sepsis Action Taken by Nursing 05/23/23 20:30 05/23/23 20:40 05/23/23 20:50 Temperature Temperature Source Pulse Rate Pulse Rate [Finger] Pulse Rate from SpO2 Sensor 77 76 79 Pulse Rhythm Respiratory Rate Respiratory Effort / Characteristics Respiratory Depth Respiratory Pattern Blood Pressure Blood Pressure [Left Arm] Blood Pressure Mean Blood Pressure Mean [Left Arm] Pulse Oximetry 95 92 95 Pulse Oximetry [Exercises] Oxygen Delivery Method Oxygen Flow Rate Sepsis Recent Fever Within 48 Hours Sepsis New/Unexplained Change in Mental Status Sepsis Action Taken by Nursing 05/23/23 21:00 05/23/23 21:00 05/23/23 21:06 Temperature Temperature Source Pulse Rate Pulse Rate [Finger] Pulse Rate from SpO2 Sensor 81 Pulse Rhythm Respiratory Rate Respiratory Effort / Characteristics Respiratory Depth Respiratory Pattern Blood Pressure 187/82 H 187/82 H Blood Pressure [Left Arm] Blood Pressure Mean 117 144 Blood Pressure Mean [Left Arm] Pulse Oximetry 94 Pulse Oximetry [Exercises] Oxygen Delivery Method Oxygen Flow Rate Sepsis Recent Fever Within 48 Hours Sepsis New/Unexplained Change in Mental Status Sepsis Action Taken by Nursing 05/23/23 21:06 05/23/23 21:10 05/23/23 21:20 Temperature Temperature Source Pulse Rate 76 74 71 Pulse Rate [Finger] Pulse Rate from SpO2 Sensor 76 74 72 Pulse Rhythm Respiratory Rate 18 21 22 Respiratory Effort / Characteristics Respiratory Depth Respiratory Pattern Blood Pressure Blood Pressure [Left Arm] Blood Pressure Mean Blood Pressure Mean [Left Arm] Pulse Oximetry 93 93 91 Pulse Oximetry [Exercises] Oxygen Delivery Method Oxygen Flow Rate Sepsis Recent Fever Within 48 Hours Sepsis New/Unexplained Change in Mental Status Sepsis Action Taken by Nursing 05/23/23 21:30 05/23/23 21:30 05/23/23 21:40 Temperature Temperature Source Pulse Rate 78 76 Pulse Rate [Finger] Pulse Rate from SpO2 Sensor 78 77 Pulse Rhythm Respiratory Rate 24 13 Respiratory Effort / Characteristics Respiratory Depth Respiratory Pattern Blood Pressure 211/95 H Blood Pressure [Left Arm] Blood Pressure Mean 157 Blood Pressure Mean [Left Arm] Pulse Oximetry 93 95 Pulse Oximetry [Exercises] Oxygen Delivery Method Oxygen Flow Rate Sepsis Recent Fever Within 48 Hours Sepsis New/Unexplained Change in Mental Status Sepsis Action Taken by Nursing 05/23/23 21:42 05/23/23 21:42 05/23/23 21:47 Temperature Temperature Source Pulse Rate 76 78 Pulse Rate [Finger] Pulse Rate from SpO2 Sensor 77 79 Pulse Rhythm Respiratory Rate 15 19 Respiratory Effort / Characteristics Respiratory Depth Respiratory Pattern Blood Pressure 200/73 H Blood Pressure [Left Arm] Blood Pressure Mean 130 Blood Pressure Mean [Left Arm] Pulse Oximetry 94 92 Pulse Oximetry [Exercises] Oxygen Delivery Method Oxygen Flow Rate Sepsis Recent Fever Within 48 Hours Sepsis New/Unexplained Change in Mental Status Sepsis Action Taken by Nursing 05/23/23 21:47 05/23/23 22:08 05/23/23 22:30 Temperature Temperature Source Pulse Rate 71 Pulse Rate [Finger] 76 Pulse Rate from SpO2 Sensor 73 Pulse Rhythm Respiratory Rate 16 26 H Respiratory Effort / Characteristics Non-Labored Respiratory Depth Normal Respiratory Pattern Blood Pressure 214/90 H Blood Pressure [Left Arm] 190/143 H Blood Pressure Mean 158 Blood Pressure Mean [Left Arm] 158 Pulse Oximetry 94 93 Pulse Oximetry [Exercises] Oxygen Delivery Method Room Air Oxygen Flow Rate Sepsis Recent Fever Within 48 Hours Sepsis New/Unexplained Change in Mental Status Sepsis Action Taken by Nursing 05/23/23 22:30 05/23/23 22:30 05/23/23 22:45 Temperature Temperature Source Pulse Rate 76 Pulse Rate [Finger] Pulse Rate from SpO2 Sensor 76 Pulse Rhythm Respiratory Rate 22 Respiratory Effort / Characteristics Respiratory Depth Respiratory Pattern Blood Pressure 190/143 H 204/85 H Blood Pressure [Left Arm] Blood Pressure Mean 147 145 Blood Pressure Mean [Left Arm] Pulse Oximetry 91 Pulse Oximetry [Exercises] Oxygen Delivery Method Oxygen Flow Rate Sepsis Recent Fever Within 48 Hours Sepsis New/Unexplained Change in Mental Status Sepsis Action Taken by Nursing 05/23/23 22:45 05/23/23 23:00 05/23/23 23:00 Temperature Temperature Source Pulse Rate 72 83 72 Pulse Rate [Finger] Pulse Rate from SpO2 Sensor 72 75 Pulse Rhythm Regular Respiratory Rate 17 20 24 Respiratory Effort / Characteristics Respiratory Depth Respiratory Pattern Blood Pressure Blood Pressure [Left Arm] Blood Pressure Mean Blood Pressure Mean [Left Arm] Pulse Oximetry 94 95 94 Pulse Oximetry [Exercises] Oxygen Delivery Method Room Air Oxygen Flow Rate Sepsis Recent Fever Within 48 Hours Sepsis New/Unexplained Change in Mental Status Sepsis Action Taken by Nursing 05/23/23 23:00 05/23/23 23:02 05/23/23 23:15 Temperature Temperature Source Pulse Rate 75 75 Pulse Rate [Finger] Pulse Rate from SpO2 Sensor 75 Pulse Rhythm Respiratory Rate 18 Respiratory Effort / Characteristics Respiratory Depth Respiratory Pattern Blood Pressure 230/85 H Blood Pressure [Left Arm] Blood Pressure Mean 110 Blood Pressure Mean [Left Arm] Pulse Oximetry 94 Pulse Oximetry [Exercises] Oxygen Delivery Method Oxygen Flow Rate Sepsis Recent Fever Within 48 Hours Sepsis New/Unexplained Change in Mental Status Sepsis Action Taken by Nursing 05/23/23 23:15 05/23/23 23:30 05/23/23 23:31 Temperature Temperature Source Pulse Rate 65 73 Pulse Rate [Finger] Pulse Rate from SpO2 Sensor 69 77 Pulse Rhythm Respiratory Rate 22 18 Respiratory Effort / Characteristics Respiratory Depth Respiratory Pattern Blood Pressure 207/89 H Blood Pressure [Left Arm] Blood Pressure Mean 153 Blood Pressure Mean [Left Arm] Pulse Oximetry 96 96 Pulse Oximetry [Exercises] Oxygen Delivery Method Oxygen Flow Rate Sepsis Recent Fever Within 48 Hours Sepsis New/Unexplained Change in Mental Status Sepsis Action Taken by Nursing 05/23/23 23:31 05/23/23 23:45 05/23/23 23:45 Temperature Temperature Source Pulse Rate 79 Pulse Rate [Finger] Pulse Rate from SpO2 Sensor 79 Pulse Rhythm Respiratory Rate 20 Respiratory Effort / Characteristics Respiratory Depth Respiratory Pattern Blood Pressure 214/114 H 194/85 H Blood Pressure [Left Arm] Blood Pressure Mean 141 146 Blood Pressure Mean [Left Arm] Pulse Oximetry 93 Pulse Oximetry [Exercises] Oxygen Delivery Method Oxygen Flow Rate Sepsis Recent Fever Within 48 Hours Sepsis New/Unexplained Change in Mental Status Sepsis Action Taken by Nursing 05/23/23 23:55 05/23/23 23:55 Temperature Temperature Source Pulse Rate 82 Pulse Rate [Finger] Pulse Rate from SpO2 Sensor 81 Pulse Rhythm Respiratory Rate 21 Respiratory Effort / Characteristics Respiratory Depth Respiratory Pattern Blood Pressure 215/88 H Blood Pressure [Left Arm] Blood Pressure Mean 113 Blood Pressure Mean [Left Arm] Pulse Oximetry 96 Pulse Oximetry [Exercises] Oxygen Delivery Method Oxygen Flow Rate Sepsis Recent Fever Within 48 Hours Sepsis New/Unexplained Change in Mental Status Sepsis Action Taken by Nursing Laboratory Data 05/23/23 15:05 05/23/23 15:05 Lab Results 05/23/23 05/23/23 05/23/23 Range/Units 15:05 19:04 19:08 WBC 6.77 (4.8-10.8) K/ul RBC 3.86 L (4.20-5.40) M/uL Hgb 11.4 L (12.0-16.0) g/dl Hct 34.6 L (37.0-47.0) % MCV 89.6 (80.0-100.0) fL MCH 29.5 (25.0-34.0) pg MCHC 32.9 (32.0-36.0) g/dL RDW Std Deviation 42.4 (36.4-46.3) fL RDW Coeff of Jennie 12.9 (11.5-14.5) % Plt Count 134 (130-400) K/uL MPV 9.6 (9.4-12.4) fL Immature Gran % (Auto) 0.3 % Neut % (Auto) 88.8 % Lymph % (Auto) 5.2 % Rabun % (Auto) 5.3 % Eos % (Auto) 0.1 % Baso % (Auto) 0.3 % Neut # (Auto) 6.01 (1.40-6.50) K/uL Lymph # (Auto) 0.35 L (1.20-3.40) K/uL Rabun # (Auto) 0.36 (0.11-0.59) K/uL Eos # (Auto) 0.01 (0.00-0.50) K/uL Baso # (Auto) 0.02 (0.00-0.20) K/uL Immature Gran # (Auto) 0.02 (0.01-0.20) K/uL Sodium 135 L (136-145) mmol/L Potassium 5.1 (3.5-5.1) mmol/L Chloride 105 (98-107) mmol/L Carbon Dioxide 24 (21-32) mmol/L Anion Gap 6 (3-11) BUN 36 H (6-23) mg/dl Creatinine 2.50 H (0.6-1.2) mg/dl Est Cr Clr Drug Dosing Not Reportable Est GFR ( Amer) 22.1 ml/min Est GFR (Non-Af Amer) 19.1 ml/min BUN/Creatinine Ratio 14.4 (10-20) Glucose 163 H (70-99(Fasting)) mg/dl Calcium 9.5 (8.6-10.3) mg/dl Total Bilirubin 0.4 (0.2-1.0) mg/dl AST 28 (13-39) U/L ALT 15 (7-52) U/L Alkaline Phosphatase 60 (34-104) U/L Troponin I High Sens 19.2 H 14.3 H D (0-14) pg/ml B-Natriuretic Peptide (0-100) pg/ml Total Protein 7.3 (6.0-8.3) gm/dl Albumin 4.0 (3.4-5.0) gm/dl Globulin 3.3 (2.5-4.0) gm/dl Albumin/Globulin Ratio 1.2 (0.9-2) Lipase 69 (11-82) U/L Adenovirus (PCR) Not Detected (NotDetected) B. pertussis DNA (PCR) Not Detected (NotDetected) B.parapertussis DNA PCR Not Detected (NotDetected) C. pneumoniae DNA (PCR) Not Detected (NotDetected) Coronavirus OC43 (PCR) Not Detected (NotDetected) Coronavirus HKU1 (PCR) Not Detected (NotDetected) Coronavirus 229E (PCR) Not Detected (NotDetected) SARS-CoV-2 (PCR) Not Detected (NotDetected) Coronavirus NL63 (PCR) Not Detected (NotDetected) Human Metapneumovir PCR Not Detected (NotDetected) Influenza Type A (PCR) Not Detected (NotDetected) Influenza Type B (PCR) Not Detected (NotDetected) M. pneumoniae (PCR) Not Detected (NotDetected) Parainfluenza 1 (PCR) Not Detected (NotDetected) Parainfluenza 2 (PCR) Not Detected (NotDetected) Parainfluenza 3 (PCR) Not Detected (NotDetected) Parainfluenza 4 (PCR) Not Detected (NotDetected) RSV (PCR) Not Detected (NotDetected) Entero/Rhino (PCR) Not Detected (NotDetected) 05/23/23 Range/Units 21:08 WBC (4.8-10.8) K/ul RBC (4.20-5.40) M/uL Hgb (12.0-16.0) g/dl Hct (37.0-47.0) % MCV (80.0-100.0) fL MCH (25.0-34.0) pg MCHC (32.0-36.0) g/dL RDW Std Deviation (36.4-46.3) fL RDW Coeff of Jennie (11.5-14.5) % Plt Count (130-400) K/uL MPV (9.4-12.4) fL Immature Gran % (Auto) % Neut % (Auto) % Lymph % (Auto) % Rabun % (Auto) % Eos % (Auto) % Baso % (Auto) % Neut # (Auto) (1.40-6.50) K/uL Lymph # (Auto) (1.20-3.40) K/uL Rabun # (Auto) (0.11-0.59) K/uL Eos # (Auto) (0.00-0.50) K/uL Baso # (Auto) (0.00-0.20) K/uL Immature Gran # (Auto) (0.01-0.20) K/uL Sodium (136-145) mmol/L Potassium (3.5-5.1) mmol/L Chloride (98-107) mmol/L Carbon Dioxide (21-32) mmol/L Anion Gap (3-11) BUN (6-23) mg/dl Creatinine (0.6-1.2) mg/dl Est Cr Clr Drug Dosing Est GFR ( Amer) ml/min Est GFR (Non-Af Amer) ml/min BUN/Creatinine Ratio (10-20) Glucose (70-99(Fasting)) mg/dl Calcium (8.6-10.3) mg/dl Total Bilirubin (0.2-1.0) mg/dl AST (13-39) U/L ALT (7-52) U/L Alkaline Phosphatase (34-104) U/L Troponin I High Sens (0-14) pg/ml B-Natriuretic Peptide 920 H (0-100) pg/ml Total Protein (6.0-8.3) gm/dl Albumin (3.4-5.0) gm/dl Globulin (2.5-4.0) gm/dl Albumin/Globulin Ratio (0.9-2) Lipase (11-82) U/L Adenovirus (PCR) (NotDetected) B. pertussis DNA (PCR) (NotDetected) B.parapertussis DNA PCR (NotDetected) C. pneumoniae DNA (PCR) (NotDetected) Coronavirus OC43 (PCR) (NotDetected) Coronavirus HKU1 (PCR) (NotDetected) Coronavirus 229E (PCR) (NotDetected) SARS-CoV-2 (PCR) (NotDetected) Coronavirus NL63 (PCR) (NotDetected) Human Metapneumovir PCR (NotDetected) Influenza Type A (PCR) (NotDetected) Influenza Type B (PCR) (NotDetected) M. pneumoniae (PCR) (NotDetected) Parainfluenza 1 (PCR) (NotDetected) Parainfluenza 2 (PCR) (NotDetected) Parainfluenza 3 (PCR) (NotDetected) Parainfluenza 4 (PCR) (NotDetected) RSV (PCR) (NotDetected) Entero/Rhino (PCR) (NotDetected) Administered Medications Discontinued Medications Fentanyl Citrate (Fentanyl Citrate Pf 100 Mcg/2 Ml Vial) 50 mcg IV NOW STA Stop: 05/23/23 19:00 Last Admin: 05/23/23 19:16 Dose: 50 mcg Documented By: DEMETRA Hydralazine HCl (Hydralazine Hcl 20 Mg/Ml Vial) 10 mg IV NOW STA Stop: 05/23/23 22:17 Last Admin: 05/23/23 22:31 Dose: 10 mg Documented By: DEMETRA Sodium Chloride (Nss) 1,000 mls @ 999 mls/hr IV .Q1H1M ONE Stop: 05/23/23 19:59 Last Infusion: 05/23/23 20:32 Dose: Infused Documented By: Admin: 05/23/23 19:17 Dose: 999 mls/hr Documented By: DEMETRA Ioversol (Optiray 320 125ml) 116 ml IV ONCE ONE Stop: 05/23/23 20:18 Last Admin: 05/23/23 20:18 Dose: 116 ml Documented By: CHRISTELLE Imaging Data Radiologist's Impression: Chest X-Ray 05/23/23 15:00 XR chest 1V not portable HISTORY: 67 years-old Female L sided chest pain, hx transplant acute left-sided chest pain COMPARISON: 12/16/2022 TECHNIQUE: AP view of the chest FINDINGS: Cardiomediastinal and hilar silhouettes are unchanged. Surgical clips are again noted projected over the mediastinum. Cervical spinal fusion hardware. No pneumothorax, pleural effusion or pulmonary edema. Unchanged costophrenic angle blunting. Chronic interstitial coarsening of the left lung with mild volume loss. IMPRESSION: Chronic findings as above without acute process. ACT 112: Negative or not required by law. The above report was generated using voice recognition software. It may contain grammatical, syntax or spelling errors. Electronically signed by: Tom Landeros M.D. 05/23/2023 3:36 PM Chest CTA 05/23/23 18:59 Exam(s): CTA CHEST IV Amt: 116 ml optiray 320 EXAM: CT Angiography Chest With Intravenous Contrast CLINICAL HISTORY: Reason for exam: PE; hx lung transplant; pleuritic LLL pain. TECHNIQUE: Axial computed tomographic angiography images of the chest with intravenous contrast. CTDI is 11.87 mGy and DLP is 323.13 mGy-cm. Automated exposure control was utilized for the study. A dose lowering technique was utilized adhering to the principles of ALARA. MIP reconstructed images were created and reviewed. COMPARISON: No relevant prior studies available. FINDINGS: Pulmonary arteries: Pulmonary artery hypertension. No pulmonary embolism. Aorta: No acute findings. No thoracic aortic aneurysm. Lungs: Diffuse changes COPD. Linear atelectasis left lower lobe. No mass. Pleural space: Small left pleural effusion. No pneumothorax. Heart: Unremarkable. No cardiomegaly. No significant pericardial effusion. No evidence of RV dysfunction. Mediastinum: Circumferential wall thickening of the esophagus incompletely evaluated on this exam. Small hiatal hernia. Thyroid: Multiple hypodensities within the right and left thyroid lobes likely representing cysts. Bones/joints: No acute fracture. No dislocation. Soft tissues: Unremarkable. Lymph nodes: Unremarkable. No enlarged lymph nodes. IMPRESSION: 1. Pulmonary artery hypertension 2. Multiple thyroid hypodensities likely representing cysts. Dedicated thyroid ultrasound may be obtained in a nonemergent fashion 3. Small left pleural effusion 4. Circumferential thickening of the esophagus which is incompletely evaluated on this exam. Underlying neoplasm cannot be excluded. Direct visualization is recommended. Electronically signed by: Sukhdev Jason MD 05/23/23 21:00 PM Discharge Plan Visit Data Chief Complaint: Shortness of Breath/Dyspnea Stated Complaint: PAIN IN LEFT SIDE & BACK/LUNG TRANSPLANT PT ED Provider: Mary Roberts Discharge Problem: Shortness of breath, Non-ST elevation OR (NSTEMI), Acute kidney injury superimposed on chronic kidney disease, Elevated brain natriuretic peptide (BNP) level, Pulmonary hypertension Forms Stand Alone Forms: My [facility] Prescriptions Prescriptions: No Action acyclovir 200 mg capsule 200 mg PO AMPM albuterol sulfate 90 mcg/actuation HFA aerosol inhaler 1 - 2 inh INHALATION Q6H PRN (Reason: SOB) fluticasone furoate-vilanterol [Breo Ellipta] 100-25 mcg/dose blister with device 1 inh INHALATION DAILY multivitamin Tablet 1 tab PO DAILY citalopram [Celexa] 40 mg Tablet 40 mg PO DAILY azithromycin 250 mg Tablet 500 mg PO 3XWK Rx Instructions: TUESDAY/TUESDAY/TUESDAY sulfamethoxazole-trimethoprim 400-80 mg tablet 1 tab PO 2XWK Rx Instructions: tuesday and AM prednisone 5 mg tablet 5 mg PO QAM hydromorphone [Dilaudid] 2 mg tablet 2 mg PO Q12H PRN (Reason: Pain) potassium chloride [Klor-Con M20] 20 mEq tablet,ER particles/crystals 20 meq PO DAILY pantoprazole 40 mg tablet,delayed release (DR/EC) 40 mg PO DAILY tacrolimus 0.5 mg capsule 0.5 mg PO QAM insulin lispro 100 unit/mL insulin pen 4 unit SUBCUT BIDWMEAL Rx Instructions: sliding scale per insulin glargine [Lantus Solostar U-100 Insulin] 100 unit/mL (3 mL) insulin pen See Rx Instructions .ROUTE .COMPLEX Rx Instructions: uses more like sliding scale. Feels like 8 units is too much, uses 3 or 4 units at bedtime. He does check her BS. everolimus (immunosuppressive) [Zortress] 0.25 mg Tablet 0.5 mg PO QAM Rx Instructions: will bring in. oxycodone [OxyContin] 15 mg tablet,oral only,ext.rel.12 hr 15 mg PO Q12H fluconazole 200 mg tablet 200 mg PO DAILY ondansetron HCl 4 mg tablet 4 mg PO UD PRN (Reason: n/v) Eliquis 2.5 mg tablet 2.5 mg PO DAILY Referrals Referrals: August Esposito MD [Primary Care Provider] -
[2023-05-23] MEDS ORDERED: OPTIRAY 320 125ml IV ONE (20:17)
[2023-05-23 20:20] LABS: Adenovirus PCR Not Detected (NotDetected); Bordetella parapertussis PCR Not Detected (NotDetected); Bordetella pertussis PCR Not Detected (NotDetected); Chlamydia pneumoniae PCR Not Detected (NotDetected); Coronavirus 229E PCR Not Detected (NotDetected); Coronavirus CoV-2 (COVID19)PCR Not Detected (NotDetected); Coronavirus HKU1 PCR Not Detected (NotDetected); Coronavirus NL63 PCR Not Detected (NotDetected); Coronavirus OC43PCR Not Detected (NotDetected); Human Metapneumovirus PCR Not Detected (NotDetected); Influenza A PCR Not Detected (NotDetected); Influenza B PCR Not Detected (NotDetected); Mycoplasma pneumoniae PCR Not Detected (NotDetected); Parainfluenza Virus 1 PCR Not Detected (NotDetected); Parainfluenza Virus 2 PCR Not Detected (NotDetected); Parainfluenza Virus 3 PCR Not Detected (NotDetected); Parainfluenza Virus 4 PCR Not Detected (NotDetected); Respiratory Syncytial VirusPCR Not Detected (NotDetected); Rhinovirus/Enterovirus PCR Not Detected (NotDetected)
--- NOTE | 2023-05-23 21:01 | CT Scan Report ---
Exam(s): CTA CHEST IV Amt: 116 ml optiray 320 EXAM: CT Angiography Chest With Intravenous Contrast CLINICAL HISTORY: Reason for exam: PE; hx lung transplant; pleuritic LLL pain. TECHNIQUE: Axial computed tomographic angiography images of the chest with intravenous contrast. CTDI is 11.87 mGy and DLP is 323.13 mGy-cm. Automated exposure control was utilized for the study. A dose lowering technique was utilized adhering to the principles of ALARA. MIP reconstructed images were created and reviewed. COMPARISON: No relevant prior studies available. FINDINGS: Pulmonary arteries: Pulmonary artery hypertension. No pulmonary embolism. Aorta: No acute findings. No thoracic aortic aneurysm. Lungs: Diffuse changes COPD. Linear atelectasis left lower lobe. No mass. Pleural space: Small left pleural effusion. No pneumothorax. Heart: Unremarkable. No cardiomegaly. No significant pericardial effusion. No evidence of RV dysfunction. Mediastinum: Circumferential wall thickening of the esophagus incompletely evaluated on this exam. Small hiatal hernia. Thyroid: Multiple hypodensities within the right and left thyroid lobes likely representing cysts. Bones/joints: No acute fracture. No dislocation. Soft tissues: Unremarkable. Lymph nodes: Unremarkable. No enlarged lymph nodes. IMPRESSION: 1. Pulmonary artery hypertension 2. Multiple thyroid hypodensities likely representing cysts. Dedicated thyroid ultrasound may be obtained in a nonemergent fashion 3. Small left pleural effusion 4. Circumferential thickening of the esophagus which is incompletely evaluated on this exam. Underlying neoplasm cannot be excluded. Direct visualization is recommended. Electronically signed by: Sukhdev Jason MD 05/23/23 21:00 PM
[2023-05-23] MEDS ORDERED: hydrALAZINE HCL 20 MG/ML VIAL IV STA (22:16)
[2023-05-24] MEDS ORDERED: LABETALOL HCL IV 5 MG/ML 20ML IV STA (00:06)
[2023-05-24] MEDS ORDERED: GLUCAGON FOR INJ 1 MG VIAL SQ PRN (00:39)
[2023-05-24] MEDS ORDERED: ACETAMINOPHEN 325 MG TAB PO PRN (00:39)
[2023-05-24] MEDS ORDERED: GLUCOSE 40% GEL 15 GM TUBE PO PRN (00:39)
[2023-05-24] MEDS ORDERED: CARBOHYDRATES FOR HYPOGLYCEMIA PO PRN (00:39)
[2023-05-24] MEDS ORDERED: ALBUTEROL HFA 8 GM INHALER INH PRN (00:39)
[2023-05-24] MEDS ORDERED: POLYETHYLENE (MIRALAX) 17 GM PACK PO PRN (00:39)
[2023-05-24] MEDS ORDERED: LABETALOL HCL IV 5 MG/ML 20ML IV PRN (00:39)
[2023-05-24] MEDS ORDERED: NITROGLYCERIN SL 0.4 MG/TAB TAB SL PRN (00:39)
[2023-05-24] MEDS ORDERED: GLUCOSE 10 TAB/TUBE PO PRN (00:39)
[2023-05-24] MEDS ORDERED: DEXTROSE 50% 50 ML SYRINGE IV PRN (00:39)
--- NOTE | 2023-05-24 00:45 | History & Physical Report ---
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 Pain started couple of days ago as per . Patient was admitted in August 2022 with suspected sepsis and MRI scan showed 1.9 cm focus of subtle predominantly linear enhancement within the right forted lobe . Patient was transferred to [facility] . 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 She had repeat MRI scan in April 2023. states [facility] thought there is no significant change from the previous MRI. Patient gets on and off headaches. Denies any fevers. Vision is okay. No runny nose. No sore throat. No cough. No nausea. No abdominal pain. Normal bowel and bladder movements. She states ambulates holding furniture at home. Shortness of breath Saturating okay on room air CTA chest small left pleural effusion s/p lung transplant Elevated BNP Will follow echo Patient has left lung transplant Will consult pulmonary for further recommendations Chest pain Mild elevation troponin Will do serial enzymes and echo Cardiac consult in a.m. 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 Pain started couple of days ago as per . Patient was admitted in August 2022 with suspected sepsis and MRI scan showed 1.9 cm focus of subtle predominantly linear enhancement within the right forted lobe . Patient was transferred to [facility] . 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 She had repeat MRI scan in April 2023. states [facility] thought there is no significant change from the previous MRI. Patient gets on and off headaches. Denies any fevers. Vision is okay. No runny nose. No sore throat. No cough. No nausea. No abdominal pain. Normal bowel and bladder movements. She states ambulates holding furniture at home. Past medical history. As mentioned above Past surgical history. Bronchoscopy. Cervical hemilaminectomy. Colonoscopy. Multiple back surgeries. Left single lung transplant. Spine neck fusion surgery in 1999. Bilateral cataracts. Cholecystectomy. Salivary surgery. Excision of soft tissue on the shoulder. Total abdominal hysterectomy removal of tubes. Social history. . Smokes 1.5 packs a day for 25 years. No alcohol use. No drug use. Family history. Mother has Alzheimer's disease. Father had diabetes. Emphysema. Sister had leukemia. Allergies Allergy/AdvReac Type Severity Reaction Status Date / Time No Known Allergies Allergy Unverified 09/17/22 15:42 Home Medications Medication Instructions Recorded Confirmed Type acyclovir 200 mg capsule 200 mg PO AMPM 09/17/22 05/23/23 History albuterol sulfate 90 mcg/actuation 1 - 2 inh inhalation Q6H PRN SOB 09/17/22 05/23/23 History aerosol inhaler azithromycin 250 mg tablet 500 mg PO 3XWK 09/17/22 05/23/23 History citalopram 40 mg tablet (Celexa) 40 mg PO DAILY 09/17/22 05/23/23 History fluticasone furoate 100 1 inh inhalation DAILY 09/17/22 05/23/23 History mcg-vilanterol 25 mcg/dose inhalation powder (Breo Ellipta) hydromorphone 2 mg tablet 2 mg PO Q12H PRN Pain 09/17/22 05/23/23 History (Dilaudid) insulin glargine 100 unit/mL (3 See Rx Instructions .Route .COMPLEX 09/17/22 05/23/23 History mL) subcutaneous pen (Lantus Solostar U-100 Insulin) insulin lispro 100 unit/mL 4 unit subcut BIDWMEAL 09/17/22 05/23/23 History subcutaneous pen multivitamin 1 tab PO DAILY 09/17/22 05/23/23 History oxycodone 15 mg tablet,crush 15 mg PO Q12H 09/17/22 05/23/23 History resistant,extended release 12 hr (OxyContin) pantoprazole 40 mg tablet,delayed 40 mg PO DAILY 09/17/22 05/23/23 History release prednisone 5 mg tablet 5 mg PO QAM 09/17/22 05/23/23 History sulfamethoxazole 400 1 tab PO 2XWK 09/17/22 05/23/23 History mg-trimethoprim 80 mg tablet tacrolimus 0.5 mg capsule, 0.5 mg PO QAM 09/17/22 05/23/23 History immediate-release apixaban 2.5 mg tablet (Eliquis) 2.5 mg PO BID 05/23/23 05/24/23 History fluconazole 200 mg tablet 200 mg PO DAILY 05/23/23 05/23/23 History ondansetron HCl 4 mg tablet 4 mg PO UD PRN n/v 05/23/23 05/23/23 History amlodipine 5 mg tablet 5 mg PO DAILY 05/24/23 05/24/23 History everolimus (immunosuppressive) 0.5 0.5 mg PO UD 05/24/23 05/24/23 History mg tablet Past Med/Surg History Medical History (Updated 05/24/23 @ 00:00 by Mary Roberts MD) Chronic back pain Degenerative disc disease Pulmonary embolism 2008--reason unknown, no blood thinners Hyperlipidemia Heart murmur Coronary artery disease Chronic respiratory failure with hypoxia 4L home O2 GERD (gastroesophageal reflux disease) Chronic pain syndrome Depression H/O lymphoma Diabetes type 2, controlled [id number] deficiency COPD (chronic obstructive pulmonary disease) Surgical History (Updated 12/31/22 @ 00:42 by Background Arden) History of dilatation and curettage History of bilateral tubal ligation History of total hysterectomy with bilateral salpingo-oophorectomy (BSO) History of lumbar spinal fusion History of fusion of cervical spine normal ROM Hx of arthroscopy of right knee History of colonoscopy History of vascular access device left chest APort History of tooth extraction History of tonsillectomy History of bronchoscopy multiple Family History Father Family history of diabetes mellitus Sister Family history of diabetes mellitus Other No family history of adverse response to anesthesia Social History Smoking Status: Former smoker Tobacco Type: Cigarettes Second Hand Exposure: No; Do You Dip or Chew Tobacco: No; Tobacco Cessation Education Requested by Patient: No Hx Alcohol Use: No Hx Substance Use: No Preferred Language: Mongolian Communication Ability: Effective Erp Business Analyst Required: No Beliefs That Will Affect Care: None Current Living Situation: Spouse Current Living Situation Comment: home with Other Information That Helps Us Care for You: No Feels Safe at Home: Yes Safety Concerns: Feels Safe At This Time Assistive Devices: Cane and Denture - Upper Review of Systems Review of Systems: All systems reviewed & are unremarkable except as noted in HPI & below Physical Exam Physical Exam: General- Not in distress. Head- atraumatic Eyes- PERRL. ENT- oropharynx clear Neck- supple, no JVD. Lungs- clear to auscultation no wheezing or crackles. Heart- regular rhythm; no murmur, no gallop. Abdomen- normal bowel sounds, soft, nontender, no distension Extremities- mild pretibial edema present, no erythema seen. Neuro- alert, oriented x 3; PERRL, no facial palsy; no dysarthria; moves extremities. Skin- warm & dry Results & Data Results & Data Vital Signs (Past 12 Hours) Vital Signs Temp Pulse Pulse Resp BP BP Pulse Ox 05/24/23 00:34 77 221/74 H 05/24/23 00:30 71 22 221/74 H 94 05/23/23 23:55 82 21 96 05/23/23 23:55 215/88 H 05/23/23 23:45 79 20 93 05/23/23 23:45 194/85 H 05/23/23 23:31 214/114 H 05/23/23 23:31 73 18 96 05/23/23 23:30 65 22 96 05/23/23 23:15 207/89 H 05/23/23 23:15 75 18 94 05/23/23 23:02 75 05/23/23 23:00 230/85 H 05/23/23 23:00 72 24 94 05/23/23 23:00 83 20 95 05/23/23 22:45 72 17 94 05/23/23 22:45 204/85 H 05/23/23 22:30 76 22 91 05/23/23 22:30 190/143 H 05/23/23 22:30 76 26 H 190/143 H 93 05/23/23 22:08 71 16 94 05/23/23 21:47 214/90 H 05/23/23 21:47 78 19 92 05/23/23 21:42 200/73 H 05/23/23 21:42 76 15 94 05/23/23 21:40 76 13 95 05/23/23 21:30 78 24 93 05/23/23 21:30 211/95 H 05/23/23 21:20 71 22 91 05/23/23 21:10 74 21 93 05/23/23 21:06 76 18 93 05/23/23 21:06 187/82 H 05/23/23 21:00 187/82 H 05/23/23 21:00 94 05/23/23 20:50 95 05/23/23 20:40 92 05/23/23 20:30 95 05/23/23 20:29 91 05/23/23 20:27 94 05/23/23 20:10 72 18 05/23/23 20:08 96 05/23/23 20:07 71 16 188/76 H 96 05/23/23 20:00 67 17 96 05/23/23 19:50 70 20 95 05/23/23 19:41 64 18 94 05/23/23 19:41 188/76 H 05/23/23 19:40 67 15 93 05/23/23 19:30 63 21 91 05/23/23 19:20 64 20 92 05/23/23 19:10 74 21 98 05/23/23 19:06 68 14 98 05/23/23 19:06 69 05/23/23 19:02 71 21 194/91 H 96 05/23/23 18:59 05/23/23 14:55 36.3 C L 79 18 155/57 H 93 Pulse Ox O2 Del Method O2 Flow Rate 05/24/23 00:34 05/24/23 00:30 Room Air 05/23/23 23:55 05/23/23 23:55 05/23/23 23:45 05/23/23 23:45 05/23/23 23:31 05/23/23 23:31 05/23/23 23:30 05/23/23 23:15 05/23/23 23:15 05/23/23 23:02 05/23/23 23:00 05/23/23 23:00 05/23/23 23:00 Room Air 05/23/23 22:45 05/23/23 22:45 05/23/23 22:30 05/23/23 22:30 05/23/23 22:30 Room Air 05/23/23 22:08 05/23/23 21:47 05/23/23 21:47 05/23/23 21:42 05/23/23 21:42 05/23/23 21:40 05/23/23 21:30 05/23/23 21:30 05/23/23 21:20 05/23/23 21:10 05/23/23 21:06 05/23/23 21:06 05/23/23 21:00 05/23/23 21:00 05/23/23 20:50 05/23/23 20:40 05/23/23 20:30 05/23/23 20:29 05/23/23 20:27 05/23/23 20:10 05/23/23 20:08 Room Air 0 05/23/23 20:07 Room Air 05/23/23 20:00 05/23/23 19:50 05/23/23 19:41 05/23/23 19:41 05/23/23 19:40 05/23/23 19:30 05/23/23 19:20 05/23/23 19:10 05/23/23 19:06 05/23/23 19:06 05/23/23 19:02 Room Air 05/23/23 18:59 90 Room Air 0 05/23/23 14:55 Room Air Diagnostic Findings Laboratory Results WBC 6.77 K/ul (4.8-10.8) 05/23/23 15:05 RBC 3.86 M/uL (4.20-5.40) L 05/23/23 15:05 Hgb 11.4 g/dl (12.0-16.0) L 05/23/23 15:05 Hct 34.6 % (37.0-47.0) L 05/23/23 15:05 MCV 89.6 fL (80.0-100.0) 05/23/23 15:05 MCH 29.5 pg (25.0-34.0) 05/23/23 15:05 MCHC 32.9 g/dL (32.0-36.0) 05/23/23 15:05 RDW Std Deviation 42.4 fL (36.4-46.3) 05/23/23 15:05 RDW Coeff of Jennie 12.9 % (11.5-14.5) 05/23/23 15:05 Plt Count 134 K/uL (130-400) 05/23/23 15:05 MPV 9.6 fL (9.4-12.4) 05/23/23 15:05 Immature Gran % (Auto) 0.3 % 05/23/23 15:05 Neut % (Auto) 88.8 % 05/23/23 15:05 Lymph % (Auto) 5.2 % 05/23/23 15:05 [place] % (Auto) 5.3 % 05/23/23 15:05 Eos % (Auto) 0.1 % 05/23/23 15:05 Baso % (Auto) 0.3 % 05/23/23 15:05 Neut # (Auto) 6.01 K/uL (1.40-6.50) 05/23/23 15:05 Lymph # (Auto) 0.35 K/uL (1.20-3.40) L 05/23/23 15:05 [place] # (Auto) 0.36 K/uL (0.11-0.59) 05/23/23 15:05 Eos # (Auto) 0.01 K/uL (0.00-0.50) 05/23/23 15:05 Baso # (Auto) 0.02 K/uL (0.00-0.20) 05/23/23 15:05 Immature Gran # (Auto) 0.02 K/uL (0.01-0.20) 05/23/23 15:05 Sodium 135 mmol/L (136-145) L 05/23/23 15:05 Potassium 5.1 mmol/L (3.5-5.1) 05/23/23 15:05 Chloride 105 mmol/L (98-107) 05/23/23 15:05 Carbon Dioxide 24 mmol/L (21-32) 05/23/23 15:05 Anion Gap 6 (3-11) 05/23/23 15:05 BUN 36 mg/dl (6-23) H 05/23/23 15:05 Creatinine 2.50 mg/dl (0.6-1.2) H 05/23/23 15:05 Est Cr Clr Drug Dosing Not Reportable 05/23/23 15:05 Est GFR ( Amer) 22.1 ml/min 05/23/23 15:05 Est GFR (Non-Af Amer) 19.1 ml/min 05/23/23 15:05 BUN/Creatinine Ratio 14.4 (10-20) 05/23/23 15:05 Glucose 163 mg/dl (70-99(Fasting)) H 05/23/23 15:05 Calcium 9.5 mg/dl (8.6-10.3) 05/23/23 15:05 Total Bilirubin 0.4 mg/dl (0.2-1.0) 05/23/23 15:05 AST 28 U/L (13-39) 05/23/23 15:05 ALT 15 U/L (7-52) 05/23/23 15:05 Alkaline Phosphatase 60 U/L (34-104) 05/23/23 15:05 Troponin I High Sens 14.3 pg/ml (0-14) H D 05/23/23 19:08 B-Natriuretic Peptide 920 pg/ml (0-100) H 05/23/23 21:08 Total Protein 7.3 gm/dl (6.0-8.3) 05/23/23 15:05 Albumin 4.0 gm/dl (3.4-5.0) 05/23/23 15:05 Globulin 3.3 gm/dl (2.5-4.0) 05/23/23 15:05 Albumin/Globulin Ratio 1.2 (0.9-2) 05/23/23 15:05 Lipase 69 U/L (11-82) 05/23/23 15:05 Adenovirus (PCR) Not Detected (NotDetected) 05/23/23 19:04 B. pertussis DNA (PCR) Not Detected (NotDetected) 05/23/23 19:04 B.parapertussis DNA PCR Not Detected (NotDetected) 05/23/23 19:04 C. pneumoniae DNA (PCR) Not Detected (NotDetected) 05/23/23 19:04 Coronavirus OC43 (PCR) Not Detected (NotDetected) 05/23/23 19:04 Coronavirus HKU1 (PCR) Not Detected (NotDetected) 05/23/23 19:04 Coronavirus 229E (PCR) Not Detected (NotDetected) 05/23/23 19:04 SARS-CoV-2 (PCR) Not Detected (NotDetected) 05/23/23 19:04 Coronavirus NL63 (PCR) Not Detected (NotDetected) 05/23/23 19:04 Human Metapneumovir PCR Not Detected (NotDetected) 05/23/23 19:04 Influenza Type A (PCR) Not Detected (NotDetected) 05/23/23 19:04 Influenza Type B (PCR) Not Detected (NotDetected) 05/23/23 19:04 M. pneumoniae (PCR) Not Detected (NotDetected) 05/23/23 19:04 Parainfluenza 1 (PCR) Not Detected (NotDetected) 05/23/23 19:04 Parainfluenza 2 (PCR) Not Detected (NotDetected) 05/23/23 19:04 Parainfluenza 3 (PCR) Not Detected (NotDetected) 05/23/23 19:04 Parainfluenza 4 (PCR) Not Detected (NotDetected) 05/23/23 19:04 RSV (PCR) Not Detected (NotDetected) 05/23/23 19:04 Entero/Rhino (PCR) Not Detected (NotDetected) 05/23/23 19:04 Impressions Chest X-Ray 05/23/23 15:00 XR chest 1V not portable HISTORY: 67 years-old Female L sided chest pain, hx transplant acute left-sided chest pain COMPARISON: 12/16/2022 TECHNIQUE: AP view of the chest FINDINGS: Cardiomediastinal and hilar silhouettes are unchanged. Surgical clips are again noted projected over the mediastinum. Cervical spinal fusion hardware. No pneumothorax, pleural effusion or pulmonary edema. Unchanged costophrenic angle blunting. Chronic interstitial coarsening of the left lung with mild volume loss. IMPRESSION: Chronic findings as above without acute process. ACT 112: Negative or not required by law. The above report was generated using voice recognition software. It may contain grammatical, syntax or spelling errors. Electronically signed by: Tom Landeros M.D. 05/23/2023 3:36 PM Chest CTA 05/23/23 18:59 Exam(s): CTA CHEST IV Amt: 116 ml optiray 320 EXAM: CT Angiography Chest With Intravenous Contrast CLINICAL HISTORY: Reason for exam: PE; hx lung transplant; pleuritic LLL pain. TECHNIQUE: Axial computed tomographic angiography images of the chest with intravenous contrast. CTDI is 11.87 mGy and DLP is 323.13 mGy-cm. Automated exposure control was utilized for the study. A dose lowering technique was utilized adhering to the principles of ALARA. MIP reconstructed images were created and reviewed. COMPARISON: No relevant prior studies available. FINDINGS: Pulmonary arteries: Pulmonary artery hypertension. No pulmonary embolism. Aorta: No acute findings. No thoracic aortic aneurysm. Lungs: Diffuse changes COPD. Linear atelectasis left lower lobe. No mass. Pleural space: Small left pleural effusion. No pneumothorax. Heart: Unremarkable. No cardiomegaly. No significant pericardial effusion. No evidence of RV dysfunction. Mediastinum: Circumferential wall thickening of the esophagus incompletely evaluated on this exam. Small hiatal hernia. Thyroid: Multiple hypodensities within the right and left thyroid lobes likely representing cysts. Bones/joints: No acute fracture. No dislocation. Soft tissues: Unremarkable. Lymph nodes: Unremarkable. No enlarged lymph nodes. IMPRESSION: 1. Pulmonary artery hypertension 2. Multiple thyroid hypodensities likely representing cysts. Dedicated thyroid ultrasound may be obtained in a nonemergent fashion 3. Small left pleural effusion 4. Circumferential thickening of the esophagus which is incompletely evaluated on this exam. Underlying neoplasm cannot be excluded. Direct visualization is recommended. Electronically signed by: Sukhdev Jason MD 05/23/23 21:00 PM ECG Additional Comments: ECG. Normal sinus rhythm at rate of 81. ST-T wave abnormality. No significant change was found. Code Status & VTE Plan VTE Prophylaxis Plan VTE Prophylaxis will be ordered: Yes
--- OUTSIDE RECORDS SUMMARY | 2023-05-24 01:51 | External Medical Summary | Summary of Care ---
Author Name Unknown Organization [facility] Address [address] [place] [address] Phone [phone] Care Team Providers Care Machine Attendant Name Role Phone August Esposito MD Primary Care Provider + Reason for Visit * Reason Comments Outpatient Testing Encounter Details Date Type Department Care Team (Latest Contact Info) Description 05/16/2023 1:50 PM EST Laboratory [facility] [place] [address] [place] [phone] [place], Lab Scenery [address] [place] [address] Encounter for long-term (current) use of other medications; Hypomagnesemia; Status post lung transplantation (HCC); Meningitis, 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HCC) Allergies Active Allergy Reactions Criticality Noted Date Comments Pollen 01/02/2020 Other reaction(s): Sneezing (finding) documented as of this encounter (statuses as of 05/18/2023) Medications Medication Sig Dispensed Refills Start Date End Date Status BD INSULIN SYR ULTRAFINE II 31G X 5/16" 0.5 ML MISCIndications:DM type 2, goal A1c below 7 USE FOR LANTUS INJECTIONS 1 Box 4 02/22/2012 Active acetaminophen (TYLENOL) 325 MG Tablet Take 2 Tablets by mouth every 6 hours as needed for Pain. 0 08/28/2019 Active sulfamethoxazole-tri methoprim DS (BACTRIM DS) 800-160 MG per tablet Take 1 Tablet by mouth once a day Tuesday and only. 0 09/04/2019 Active Potassium Chloride Mignon ER 20 MEQ Oral Tablet Extended Release Take 2 Tablets by mouth in the morning. 0 04/01/2020 Active Everolimus 0.5 MG Oral Tablet (Zortress) Take 1 Tablet by mouth in the morning and 1 Tablet before bedtime. PM MWF. 0 02/02/2021 Active Acyclovir 200 MG Oral Capsule (Zovirax) Take 1 Capsule by mouth in the morning and 1 Capsule before bedtime. M W F. 0 11/19/2020 Active Insulin Lispro 100 UNIT/ML Injection Solution 0 10/17/2020 Active Atorvastatin Calcium 20 MG Oral Tablet (Lipitor) 0 09/24/2021 Active Azithromycin 250 MG Oral Tablet (Zithromax) Take 1 Tablet by mouth. M W F 0 09/25/2021 Active Ferrous Sulfate 324 MG Oral Tablet Delayed Release Take by mouth 1 Tablet . 0 04/10/2021 Active amLODIPine Besylate 5 MG Oral Tablet (Norvasc)Indications :Hypertension goal BP (blood pressure) < 140/90 Take by mouth 1 Tablet in the morning. 30 Tablet 12 12/02/2021 Active Litetouch Pen Dongola 31G X 8 MM (Insulin Pen Needle)Indications:T ype 2 diabetes mellitus with hemoglobin A1c goal of less than 7.0% ([facility]) USE WITH INSULIN 3 TIMES A DAY WITH MEALS. 100 Each 5 01/07/2022 Active Insulin Lispro (1 Unit Dial) 100 UNIT/ML Subcutaneous Solution Pen-injector (Admelog)Indications :Type 2 diabetes mellitus with hemoglobin A1c goal of less than 7.0% ([facility]) Inject under the skin 8 Units three times a day with meals . Hold if meal will be missed 9 mL 2 02/04/2022 Active Accu-Chek Softclix LancetsIndications:T ype 2 diabetes mellitus with hemoglobin A1c goal of less than 7.0% ([facility]) Test one time daily. Dx: E11.9 100 Each 3 04/04/2022 Active Fluticasone Furoate-Vilanterol 100-25 MCG/ACT Inhalation Aerosol Powder Breath Activated (BREO ellipta)Indications: COPD, group C, by GOLD 2017 classification ([facility]) Inhale 1 Puff by mouth in the morning. 60 Blister Dosing Unit 5 05/25/2022 Active ProAir HFA 108 (90 Base) MCG/ACT Inhalation Aerosol SolutionIndications: Lung infection,Acute cough Inhale 2 Puffs by mouth every 4 hours as needed for Wheezing. 18 g 1 05/25/2022 Active Zoster Vac Recomb Adjuvanted 50 MCG/0.5ML Intramuscular Suspension Reconstituted (Shingrix)Indication s:Need for shingles vaccine Inject 0.5 mL into a large muscle now and repeat dose in 60 to 180 days 1 Each 1 06/11/2022 Active Accu-Chek Guide In Vitro Strip (Glucose Blood)Indications:Ty pe 2 diabetes mellitus with stage 3b chronic kidney disease, with long-term current use of insulin ([facility]) Use to check sugars 4 times a day. 400 Strip 3 07/05/2022 Active Magnesium 400 MG Oral Tablet Take by mouth. 0 Active Fluconazole 200 MG Oral Tablet (Diflucan) Take 3 Tablets by mouth in the morning. 0 Active Furosemide 40 MG Oral Tablet Take 1 Tablet by mouth in the morning. 0 Active Pantoprazole Sodium 40 MG Oral Tablet Delayed Release (Protonix)Indication s:Gastroesophageal reflux disease without esophagitis Take 1 Tablet by mouth in the morning. 90 Tablet 3 11/22/2022 Active Apixaban 2.5 MG Oral Tablet (Eliquis)Indications :History of recurrent deep vein thrombosis (DVT) Take 1 Tablet by mouth in the morning and 1 Tablet before bedtime. 60 Tablet 1 01/11/2023 Active Citalopram Hydrobromide 40 MG Oral Tablet (CeleXA)Indications: Major depressive disorder with single episode, in partial remission (HCC) Take 1 Tablet by mouth in the morning. 90 Tablet 1 01/11/2023 Active Polyethylene Glycol 3350 17 GM/SCOOP Oral PowderIndications:Co nstipation, unspecified constipation type Take 17 g by mouth as needed for Constipation. Dissolve one heaping tablespoon in 8 ounces of water or juice. 17 g 0 01/11/2023 Active predniSONE 5 MG Oral Tablet (Deltasone)Indicatio ns:Lung transplant status ([facility]) Take 1 Tablet by mouth in the morning. TAKING 5mg DAILY. 90 Tablet 3 01/19/2023 Active Comirnaty 30 MCG/0.3ML Intramuscular Suspension Inject 0.3 mL into a large muscle. 0.3 mL 0 03/07/2023 Active Insulin Glargine Solostar 100 UNIT/ML Subcutaneous Solution Pen-injector (Lantus SoloStar)Indications :Type 2 diabetes mellitus with hemoglobin A1c goal of less than 7.0% ([facility]) Inject 15 Units under the skin at bedtime. 15 mL 2 03/31/2023 Active oxyCODONE HCl ER 15 MG Oral Tablet ER 12 Hour Abuse-Deterrent (oxyCONTIN) Take 1 Tablet by mouth in the morning and 1 Tablet before bedtime. 60 Tablet 0 04/29/2023 Active HYDROmorphone HCl 2 MG Oral Tablet (Dilaudid)Indication s:Disc disorder of lumbar region Take 1 Tablet by mouth every 12 hours as needed for Pain, Severe. 60 Tablet 0 04/29/2023 Active Hospital, Clinic, or Other Facility Administered Medication Ordered Dose Route Frequency Start Date End Date Status Tixagevimab inj 300 mgIndications:Lung transplant status ([facility]) 300 mg IM [id number] 01/21/2022 Active Cilgavimab inj 300 mgIndications:Lung transplant status ([facility]) 300 mg IM [id number] 01/21/2022 Active documented as of this encounter (statuses as of 05/18/2023) Active Problems Problem Noted Date Diagnosed Date Type 2 diabetes mellitus wit h stage 4 chronic kidney disease, with long-term current use of insulin 04/11/2023 Overview: Per CKD protocol Type 2 diabetes mellitus wit h stage 4 chronic kidney disease, without long-term current use of insulin 04/11/2023 Overview: Per CKD protocol Benign hypertension with chronic kidney disease, stage IV 04/11/2023 Overview: Per CKD protocol Chronic kidney disease, stage 4 (severe) 023 Overview: Per CKD protocol History of CVA in adulthood 11/22/2022 Chronic bilateral back pain 07/05/2022 Mild dementia with mood disturbance 06/11/2022 Immunosuppressed status 06/10/2021 Major depressive disorder wi th single episode, in partial remission 06/10/2021 History of DVT (deep vein thrombosis) 04/03/2021 Gastroparesis 02/02/2021 Tracheal stenosis 08/18/2020 Pulmonary HTN 07/10/2020 Hypertension goal BP (blood pressure) < 140/90 0 01/02/2020 Bradycardia 09/10/2019 Overview: On beta deisi Lung transplant status 08/31/2019 Overview: 07/2019 COPD, group C, by GOLD 2017 classification 10/09 Overview: Per COPD GOLD Classification PFO (patent foramen ovale) 09/01/2018 History of pulmonary embolism 02/11/2017 H/O lymphoma 02/11/2017 Hypoxemia 09/28/2012 Type 2 diabetes mellitus wit h hemoglobin A1c goal of less than 7.0% 06/21/2012 Overview: ICD-10 update of inactive term Pain medication agreement 04/18/2012 Overview: Signed 04/18/12 Ywlpn-0-pilqsiclmum deficiency 09/24/2010 Overview: [facility]astin 60[facility]/kg [facility]07[facility] 2010 caused arthralgias. 08/28/10 - <30 10/12/08 - MM allele 08/22/08 - 232 Proteinuria 10/08/2009 History of tobacco use 09/10/2009 Chronic rhinitis 09/10/2009 Esophageal reflux Disc disorder of lumbar region Overview: has had multiple surgeries - now w/ chronic back pain from postlaminectomy syndrome documented as of this encounter (statuses as of 05/18/2023) Resolved Problems Problem Noted Date Diagnosed Date Resolved Date Type 2 diabetes mellitus wit h stage 4 chronic kidney disease, with long-term current use of insulin 06/11/2022 07/05/2022 Protein-calorie malnutrition 10/21/2021 06/11/2022 Mild dementia 06/10/2021 11/22/2022 Type 2 diabetes mellitus wit h stage 3b chronic kidney disease, with long-term current use of insulin 06/10/2021 04/14/2023 Overview: Per CKD protocol Chronic kidney disease, stage 3b 10/14/2020 04/14/2023 Overview: Per CKD protocol Memory loss 09/26/2020 06/11/2022 Type 2 diabetes mellitus wit h stage 3b chronic kidney disease 09/09/2020 04/14/2023 Overview: Per CKD protocol Benign hypertension with sta ge 3b chronic kidney disease 09/09/2020 04/14/2023 Overview: Per CKD protocol Benign hypertension with CKD (chronic kidney disease) stage III 07/10/2020 09/11/2020 Overview: Per CKD protocol Diabetes mellitus with stage 3 chronic kidney disease 06/09/2020 09/11/2020 Overview: Per CKD protocol Chronic hypoxemic respiratory failure 02/11/2017 09/10/2019 COPD, severe 08/20/2016 10/11/2018 Overview: Per COPD GOLD Classification DNR (do not resuscitate) 03/24/201606/2019 Kidney disease, chronic, sta ge III (GFR 30-59 ml/min) 07/15/2014 06/12/2020 Overview: Per CKD protocol #1 HTN, goal below 140/80 12/20/201110/20 Overview: Per HTN Protocol #27. Type 2 diabetes mellitus wit h hemoglobin A1c goal of less than 7.0% 05/04/2011 05/04/2011 Overview: ICD-10 update of inactive term HTN, goal below 130/80 05/04/201112/22 Overview: Per HTN Protocol #27. 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 Olvera Glycosuria 10/08/2009 01/05/2012 Other specified forms of hearing loss 09/10/2009 12/16/2009 Other voice and resonance disorders 09/10/2009 12/16/2009 Chronic laryngitis 09/10/2009 0 Other pulmonary embolism and infarction 09/05/2009 02/11/2017 Anticoagulation management encounter 09/05/2009 11/12/2016 Thrush 08/21/2009 12/16/2009 Hypoxemia 07/31/2009 12/16/2009 Overview: 2 LPM - 24 hrs/day HX- NONHODGKIN'S LYMPHOMA 07/21/2009 Overview: Sep 2008, [facility] 3 doses of chemo, remission COPD exacerbation 01/09/2009 12/16/2009 COPD, severity to be determined 01/09/2009 04/13/2011 Overview: 06/05/10: 4 LPM 24hrs/day. 07/26/09: Failed 2 step at [facility], 2 LPM 24 hr/day 07/15/09: Nocturnal pulse ox normal on RA 12/30/08 PFT -- FVC 2.64 L or 62%, FEV1 1.65 L or 70%. Mild obstruction, mild improvement post bronchodilator, mild hyperinflation, mild decrease in diffusion capacity. WEIGHT LOSS, ABNORMAL 01/12/20052011 ADVANCE DIRECTIVE INFORMATION 01/08/2005 04/07/2018 Overview: No, Advance Directive brochure given to patient. Other chronic pain 0 Overview: chronic back pain - sees [facility] Pain Management Other malignant lymphomas, u nspecified site, extranodal and solid organ sites 011 Overview: NHL- Sep 2008 at [facility] [place] Caceres Major depressive disorder Overview: ICD-10 update of inactive term Other malignant lymphomas, u nspecified site, extranodal and solid organ sites 018 Overview: NHL- Sep 2008 at [facility] [place] Caceres documented as of this encounter (statuses as of 05/18/2023) Immunizations Name Administration Dates Next Due COVID-19 mRNA, LNP-s, No Pre serve, 2-Dose Series (Moderna) 01/24/2021,07/03/2020,05/31/2020 Covid-19, Mrna, Lnp-s, Pf, B ivalent, 30 Mcg, IM, 12 yrs and above (Pfizer) 04/21/2022 H1N1 2009 Influenza, IM 06/11/2009 Hepatitis B Vaccine 09/01/2018 Hepatitis B, 20+ yrs 12/06/2018,09/02/19 19,04/21/2011,11/18,09/30/2010 Pneumococcal Conjugate Vacc, 13 Valent (Prevnar) 02/13/2015,11/28/2014 Pneumococcal Polysaccharide PPV23 (Pneumovax) 07/05/2022,08/20/2016,04/01/2010,05/16 Season Influenza, Quad, PF, Adjuvanted, 65+ Yrs, IM (FLUAD) 01/02/2020 Seasonal Influenza, PF, 6 M & above, IM , (FluLaval or Fluzone) 03/15/2019,02/13/2018,02/11/2017 Seasonal Influenza, Quadriva lent Hd (Fluzone Hd) 01/11/2023,01/20/2022,02/02/2021 Seasonal Influenza, Quadriva lent, No Preserve, IM 02/20/2016 Seasonal Influenza, Split, I IV3, With Preserve, Inj 02/13/2018,02/11/2017,02/20/2016,02/13,01/14/2015,01/24/2014,01/19/2013 ,01/05/2012,01/30/2010,06/11/2009 TDAP (age 10 and older)(Boostrix) 07/22/2022,08/2011 Zoster Vaccine Recombinant (Shingrix) 07/22/2022 documented as of this encounter Social History Tobacco Use Types Packs/Day Years Used Date Smoking Tobacco: Former Cigarettes 1.5 25 Smokeless Tobacco: Never Alcohol Use Standard Drinks/Week Comments No 0 (1 standard drink = 0.6 oz pur e alcohol) PHQ-2 Answer Date Recorded PHQ Adult Total Score 0 01/11/2023 Hunger Vital Sign Answer Date Recorded Within the past 12 months, y ou worried that your food would run out before you got the money to buy more. Never true 04/09/20 20 Within the past 12 months, t he food you bought just didn't last and you didn't have money to get more. Never true 04/09/2020 Sex and Gender Information Value Date Recorded Sex Assigned at Female 11/10/2018 1:00 PM EDT Gender Identity Female 11/10/2018 1:00 PM EDT Sexual Orientation Straight 11/10/2018 1: 00 PM EDT Job Start Date Occupation Industry Not on file Not on file Not on file documented as of this encounter Plan of Treatment Upcoming Encounters Date Type Department Care Team (Late st Contact Info) Description 05/31/2023 2:00 PM EST Office Visit Pharmacy, [facility] [address] [facility] [place] [phone] [facility] [address] [facility] [place] [phone] 07/20/2023 2:00 PM EDT Office Visit Neurology [facility] [address] [address] Alva Contreras PA-C [address] [phone] 07/26/2023 2:40 PM EDT Office Visit General Internal Medicine [facility] [place] [address] [address] August Esposito MD [address] [facility] [place] [phone] Pending Results Name Type Priority Associated Diagnoses Date /Time EVEROLIMUS, LC/MS/MS, BLOOD Lab Routine Encounter for long-term (current) use of other medications Hypomagnesemia Status post lung transplantation (HCC) 05/16/2023 1:48 PM EST CYTOMEGALOVIRUS DNA, QUANTITATIVE REAL-TIME PCR Lab Routine Encounter for long-term (current) use of other medications Hypomagnesemia Status post lung transplantation (HCC) 05/16/2023 1:48 PM EST Scheduled Procedures Name Priority Associated Diagnoses Date/Ti me COLONOSCOPY FLEXIBLE PROXIMA L DIAGNOSTIC Recall Screening for malignant neoplasm of colon Health Maintenance Due Date Last Done Comments *ADVANCE DIRECTIVE NOT ON FILE 08/25/2016 Diabetic Eye Exam 03/18/2021 03/18/2020, , 03/19/2014, Additional history exists Mammogram 07/18/2021 07/18/2020, 12/2018, 09/07/2018, Additional history exists DXA Scan 09/11/2021 09/11/2018, 09/11/2018 Zoster Vaccines (2 of 2) 09/16/2022 07/22/2022 COVID-19 Vaccine (2022- season) 2022 04/21/2022, 01/24/2021, 07/03/2020, Additional history exists Albumin/Creatinine Ratio 06/16/2023 023, 09/11/2019, 12/06/2018, Additional history exists HbA1c 06/16/2023 12/14/2022, 10/30, 06/16/2022, Additional history exists Diabetic Foot Exam 07/06/2023 07/05/2022, 0 06/10/2021, 07/10/2020, Additional history exists GFR 11/14/2023 05/16/2023, 04/02, 04/04/2023, Additional history exists CKD PHOS USE SMARTSET 08014 11/16/202310/30, 11/08/2022, 05/10/2022, Additional history exists COLONOSCOPY-EVERY 5 YRS AGES 18-100 11/18/2023 11/17/2018 Depression Screening 01/12/2024 01/11/2023, 02/22/20 15 O2 ASSESSMENT COMPLETED IN PAST YEAR FOR COPD 03/15/2024 03/15/2023, 05/24/2014 (Course Completed) CKD HGB USE SMARTSET 98080 05/16/202405/16, 05/16/2023, 04/29/2023, Additional history exists Lipid Panel 01/19/2028 01/18/2023, 11/30, 06/16/2022, Additional history exists DTaP,Tdap,and Td Vaccines (3 - Td or Tdap) 07/22/2032 07/22/2022, 01/05/2012 Hepatitis B Completed 12/06/2018, 06/2018, 09/01/2018, Additional history exists Pneumococcal Vaccine: 65+ Years Completed 07/05/2022, 08/20/2016, 02/13/2015, Additional history exists Influenza Vaccine (FLU shot) Completed 01/11/2023, 01/20/2022, 02/02/2021, Additional history exists Alpha-1 Antitrypsin Discontinued GARDASIL-HPV IMMUNIZATION SERIES Aged Out No longer eligible based on patient's age to complete this topic MENINGOCOCCAL (MENACTRA/MENVEO) Aged Out No longer eligible based on patient's age to complete this topic documented as of this encounter Medical Devices Implanted Type Area Team Facilitator Device Identifier Shelf Expiration Date Model / Serial / Lot Lens Intraoc 21.5 - [id number] - [id number] Implanted:Qty: 1 on 06/10/2020 by Pietro Nuñez MD at OR [facility] Right: Eye [employer] 12/30/2024 [id number] / [id number] / [id number] Lens Intraoc 21.5 - [id number] - [id number] Implanted:Qty: 1 on 06/24/2020 by Pietro Nuñez MD at OR [facility] Left: Eye [employer] 01/29/2025 [id number] / [id number] / [id number] documented as of this encounter Procedures Procedure Name Priority Date/Time Associated Diagnosis Comments DIFFERENTIAL, AUTOMATED Routine 05/16/2023 1:48 PM EST Encounter for long-term (current) use of other medications Hypomagnesemia Status post lung transplantation (HCC) TACROLIMUS LEVEL Routine 05/16/2023 1:48 PM EST Encounter for long-term (current) use of other medications Hypomagnesemia Status post lung transplantation (HCC) HEPATIC FUNCTION PANEL Routine 05/16/2023 1:48 PM EST Meningitis, 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HCC) BASIC METABOLIC PANEL Routine 05/16/2023 1:48 PM EST Encounter for long-term (current) use of other medications Hypomagnesemia Status post lung transplantation (HCC) CBC Routine 05/16/2023 1:48 PM EST Encounter for long-term (current) use of other medications Hypomagnesemia Status post lung transplantation (HCC) CBC Routine 05/16/2023 1:48 PM EST Encounter for long-term (current) use of other medications Hypomagnesemia Status post lung transplantation (HCC) MAGNESIUM Routine 05/16/2023 1:48 PM EST Encounter for long-term (current) use of other medications Hypomagnesemia Status post lung transplantation (HCC) documented in this encounter Results * (ABNORMAL) DIFFERENTIAL, AUTOMATED (05/16/2023 1:48 PM EST) WBC 6.46 4.00 - 10.80 K/uL 05/17/2023 12:02 AM EST [facility] Neutrophils % 86.3(H) 40.0 - 75.0 % 05/17/2023 12:02 AM EST [facility] Lymphocytes % 6.3(L) 18.0 - 42.0 % 05/17/2023 12:02 AM EST [facility] Monocytes % 6.3 1.0 - 11.0 % 05/17/2023 12:02 AM EST [facility] Eosinophils % 0.5 0.0 - 6.0 % 05/17/2023 12:02 AM EST [facility] Basophils % 0.3 0.0 - 2.0 % 05/17/2023 12:02 AM EST [facility] Immature Granulocytes % 0.3 0.0 - 2.0 % 05/17/2023 12:02 AM EST [facility] Absolute Neutrophils 5.57 1.80 - 7.70 K/uL 05/17/2023 12:02 AM EST [facility] Absolute Lymphocytes 0.41(L) 1.00 - 4.80 K/ul 05/17/2023 12:02 AM EST [facility] Absolute Monocytes 0.41 0.00 - 1.10 K/uL 05/17/2023 12:02 AM EST [facility] Absolute Eosinophils 0.03 0.00 - 0.70 K/uL 05/17/2023 12:02 AM EST [facility] Absolute Basophils 0.02 0.00 - 0.20 K/uL 05/17/2023 12:02 AM EST [facility] Absolute Immature Granulocytes 0.02 0.00 - 0.20 K/uL 05/17/2023 12:02 AM EST [facility] Blood Venous blood specimen / Unknown Venipuncture / Unknown 05/16/2023 1:48 PM EST 05/16/2023 1:48 PM EST Katya Brand MD LAB BLOOD ORD ERABLES [facility] [address] [place] [address] * (ABNORMAL) CBC (05/16/2023 1:48 PM EST) WBC 6.46 4.00 - 10.80 K/uL 05/17/2023 12:02 AM EST [facility] RBC 3.53 3.85 - 5.15 M/uL 05/17/2023 12:02 AM EST [facility] HGB 10.7(L) 12.0 - 15.3 g/dL 05/17/2023 12:02 AM EST [facility] HCT 33.6(L) 36.0 - 45.2 % 05/17/2023 12:02 AM EST [facility] MCV 95.2 81.5 - 97.5 fL 05/17/2023 12:02 AM EST [facility] MCH 30.3 27.0 - 34.0 pg 05/17/2023 12:02 AM EST LABORATORY [facility] MCHC 31.8 32.0 - 36.0 g/dL 05/17/2023 12:02 AM EST LABORATORY [facility] RDW 13.0 11.5 - 15.5 % 05/17/2023 12:02 AM EST LABORATORY [facility] PLT 164 140 - 400 K/uL 05/17/2023 12:02 AM EST LABORATORY [facility] MPV 9.9 6.6 - 11.1 fL 05/17/2023 12:02 AM EST LABORATORY [facility] nRBCs 0 <=0 /100 WBCs 05/17/2023 12:02 AM EST LAB[facility]ATORY [facility] Blood Venous blood specimen / Unknown Venipuncture / Unknown 05/16/2023 1:48 PM EST 05/16/2023 1:48 PM EST Katya Brand MD LAB BLOOD ORD ERABLES LAB[facility] [address] [place] [address] * (ABNORMAL) HEPATIC FUNCTION PANEL (05/16/2023 1:48 PM EST) Pathologist [facility] Albumin 3.7(L) 3.8 - 5.0 g/dL 05/16/2023 3:55 PM EST [facility] 56-02 AST 32 10 - 35 U/L 05/16/2023 3:55 PM EST [facility] [place] 56-02 Alkaline Phosphatase 69 35 - 130 U/L 05/16/2023 3:55 PM EST [facility] [place] 56-02 ALT <5(L) 10 - 35 U/L 05/16/2023 3:55 PM EST [facility] [place] 56-02 Bilirubin, Total 0.2 <=1.2 mg/dL 05/16/2023 3:55 PM EST [facility] [place] 56-02 Bilirubin, Direct <0.2 0.0 - 0.3 mg/dL 05/16/2023 3:55 PM [facility] [place] 56-02 Protein 6.6 6.0 - 8.3 g/dL 05/16/2023 3:55 PM EST [facility] [place] 56-02 Blood Venous blood specimen / Unknown Venipuncture / Unknown 05/16/2023 1:48 PM EST 05/16/2023 1:48 PM EST Dianne Chaudhary MD LAB BLOOD ORDERABLES [facility] [address] [place] [address] * TACROLIMUS LEVEL (05/16/2023 1:48 PM EST) Pathologist [facility] Tacrolimus 11.2 4.0 - 12.0 ng/mL 05/17/2023 10:27 AM EST LAB[facility]ATORY [facility] Blood Venous blood specimen / Unknown Venipuncture / Unknown 05/16/2023 1:48 PM EST 05/16/2023 1:48 PM EST Narrative LABORATORY [facility] - 05/17/2023 10:27 AM EST Test performed by Immunoassay on fg microtec. Therapeutic ranges vary with type of transplant, time post-transplant, clinical protocols, and testing methodology. Results should be interpreted with clinical presentation and any signs rejection/toxicity. Katya Brand MD LAB BLOOD ORD ERABLES [facility] [address] [place] [address] * MAGNESIUM (05/16/2023 1:48 PM EST) Pathologist [facility] Magnesium 1.8 1.5 - 2.6 mg/dL 05/16/2023 3:55 PM EST LAB[facility] [place] 56-02 Blood Venous blood specimen / Unknown Venipuncture / Unknown 05/16/2023 1:48 PM EST 05/16/2023 1:48 PM EST Katya Brand MD LAB BLOOD ORD ERABLES [facility] [address] [place] [address] * (ABNORMAL) BASIC METABOLIC PANEL (05/16/2023 1:48 PM EST) BUN 44(H) 6 - 20 mg/dL 05/16/2023 3:55 PM [facility]- Creatinine 3.5(H) 0.5 - 1.0 mg/dL 05/16/2023 3:55 PM [facility]- Estimated Glomerular Filtration Rate 14(L) >=60 mL/min 05/16/2023 3:55 PM [facility]- Comment:eGFR is calculated b ased on the CKD-EPI 2020 equation Sodium 138 135 - 146 mmol/L 05/16/2023 3:55 PM [facility]- Potassium 5.5(H) 3.5 - 5.1 mmol/L 05/16/2023 3:55 PM [facility]- Chloride 105 98 - 107 mmol/L 05/16/2023 3:55 PM [facility] 56- CO2 23 22 - 32 mmol/L 05/16/2023 3:55 PM [facility] 56- Anion Gap 10 7 - 15 mmol/L 05/16/2023 3:55 PM [facility] 56- Glucose 195(H) 70 - 120 mg/dL 05/16/2023 3:55 PM [facility] 56- Calcium 9.2 8.4 - 10.2 mg/dL 05/16/2023 3:55 PM [facility] 56 Blood Venous blood specimen / Unknown Venipuncture / Unknown 05/16/2023 1:48 PM EST 05/16/2023 1:48 PM EST Katya Brand MD LAB BLOOD ORD ERABLES [facility] [address] documented in this encounter Visit Diagnoses Diagnosis Encounter for long-term (current) use of other medications Hypomagnesemia 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
--- OUTSIDE RECORDS SUMMARY | 2023-05-24 01:51 | External Medical Summary | Summary of Care ---
Author Name Unknown Organization [facility] Address [address] [place] [address] Phone [phone] Care Team Providers Care Psychology Lecturer Name Role Phone August Esposito MD Primary Care Provider + Reason for Visit * Reason Onset Date Comments Advice 05/23/2023 FYI 05/23/2023 Encounter Details Date Type Department Care Team (Late st Contact Info) Description 05/23/2023 Telephone General Internal Medicine [facility] [address] [facility] [place] [address] August Esposito MD [address] [place] [address] Advice; Allergies Active Allergy Reactions Criticality Noted Date Comments Pollen 01/02/2020 Other reaction(s): Sneezing (finding) documented as of this encounter (statuses as of 05/23/2023) Medications Medication Sig Dispensed Refills Start Date [...] 30 Tablet 12 12/02/2021 Active Litetouch Pen [place] 31G X 8 MM (Insulin Pen Needle)Indications:T ype 2 diabetes mellitus with hemoglobin A1c goal of less than 7.0% ([facility]) USE WITH INSULIN 3 TIMES A DAY WITH MEALS. 100 Each 5 01/07/2022 Active Insulin Lispro (1 Unit Dial) 100 UNIT/ML Subcutaneous Solution Pen-injector (Admelog)Indications :Type 2 diabetes mellitus with hemoglobin A1c goal of less than 7.0% (HCC) Inject under the skin 8 Units three times a day with meals . Hold if meal will be missed 9 mL 2 02/04/2022 Active Accu-Chek Softclix LancetsIndications:T ype 2 diabetes mellitus with hemoglobin A1c goal of less than 7.0% ([facility]) Test one time daily. Dx: E11.9 100 Each 3 04/04/2022 Active Fluticasone Furoate-Vilanterol 100-25 MCG/ACT Inhalation Aerosol Powder Breath Activated (BREO ellipta)Indications: COPD, group C, by GOLD 2017 classification (HCC) Inhale 1 Puff by mouth in the [...] disease, with long-term current use of insulin ([facility]) Use to check sugars 4 times a [...] disorder with single episode, in partial remission ([facility]) Take 1 Tablet by mouth in the morning. 90 Tablet 1 01/11/2023 Active Polyethylene Glycol 3350 17 GM/SCOOP Oral PowderIndications:Co nstipation, unspecified constipation type Take 17 g by mouth as needed for Constipation. Dissolve one heaping tablespoon in 8 ounces of water or juice. 17 g 0 01/11/2023 Active predniSONE 5 MG Oral Tablet (Deltasone)Indicatio ns:Lung transplant status ([facility]) Take 1 Tablet by mouth in the morning. TAKING 5mg DAILY. 90 Tablet 3 01/19/2023 Active Comirnaty 30 MCG/0.3ML Intramuscular Suspension Inject 0.3 mL into a large muscle. 0.3 mL 0 03/07/2023 Active Insulin Glargine Solostar 100 UNIT/ML Subcutaneous Solution Pen-injector (Lantus SoloStar)Indications :Type 2 diabetes mellitus with hemoglobin A1c goal of less than 7.0% ([facility]) Inject 15 Units under the skin at [...] Status Tixagevimab inj 300 mgIndications:Lung transplant status ([facility]) 300 mg IM [id number] 01/21/2022 Active Cilgavimab inj 300 mgIndications:Lung transplant status ([facility]) 300 mg IM [id number] 01/21/2022 Active documented as of this encounter (statuses as of 05/23/2023) Active Problems Problem Noted Date Diagnosed Date [...] Pain medication agreement 04/18/2012 Overview: Signed 04/18/12 Klbfk-0-socinktpcws deficiency 09/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 fall 2010 caused arthralgias. 08/28/10 - <30 10/12/08 - MM allele 08/22/08 - 232 Proteinuria 10/08/2009 History of tobacco use 09/10/2009 Chronic rhinitis 09/10/2009 Esophageal reflux Disc disorder of lumbar region Overview: has had multiple surgeries - now w/ chronic back pain from postlaminectomy syndrome documented as of this encounter (statuses as of 05/23/2023) Resolved Problems Problem Noted Date Diagnosed Date [...] HX- NONHODGKIN'S LYMPHOMA 07/21/2009 Overview: Sep 2008, [facility], received 3 doses of chemo, remission COPD exacerbation 01/09/2009 12/16/2009 COPD, severity to be determined 01/09/2009 04/13/2011 Overview: 06/05/10: 4 LPM 24hrs/day. 07/26/09: Failed 2 step at [facility], 2 LPM 24 hr/day 07/15/09: Nocturnal pulse [...] 0 Overview: chronic back pain - sees [facility] Pain Management Other malignant lymphomas, u nspecified site, extranodal and solid organ sites 011 Overview: NHL- Sep 2008 at [facility] [place] Caceres Major depressive disorder Overview: ICD-10 update of inactive term Other malignant lymphomas, u nspecified site, extranodal and solid organ sites 018 Overview: NHL- Sep 2008 at [facility] [place] [place] Caceres documented as of this encounter (statuses as of 05/23/2023) Immunizations Name Administration Dates Next Due COVID-19 [...] on file documented as of this encounter Miscellaneous Notes * Telephone Encounter - Rosio Davenport OSA - 05/23/2023 9:54 AM EST Pts daughter calling in stating that pt spoke to a triage nurse and pt was confused on whether nurse was calling 911 or pt was supposed to. Daughter stated that she is a lung transplant pt and she did not need an ambulance due to her having SOB all the time but they wanted an appt for her to be seen in office. Appt was made for 05/24/23. Daughter also stated pt has dementia so when asking her questions you dont get a straight answer. * Telephone Encounter - Kelli Chandler OSA - 05/23/2023 8:50 AM EST Reason for patient's call: Shortness of breath & pain on left lung Caller was transferred to [facility] at the nurse line. documented in this encounter Plan of Treatment Upcoming Encounters Date Type Department Care Team (Late st Contact Info) Description 05/24/2023 1:00 PM EST Office Visit General Internal Medicine [facility] [address] [facility] [place] [address] Cheryl Murillo MD [address] [facility] [place] [address] 05/31/2023 2:00 PM EST [facility] [address] [facility] [address] [facility] [address] 07/20/2023 2:00 PM EDT Office Visit Neurology [facility] [address] [facility] [place] [address] Alva Contreras PA-C [address] [facility] [place] [address] 07/26/2023 2:40 PM EDT Office Visit General Internal Medicine [facility] [address] [facility] [place] [address] August Esposito MD [address] [facility] [place] [address] Scheduled Procedures Name Priority Associated Diagnoses Date/Ti me COLONOSCOPY FLEXIBLE PROXIMA L DIAGNOSTIC Recall Screening for malignant neoplasm of colon Health Maintenance Due Date Last Done Comments Nephrology Referral 1972 PTH 1972 *ADVANCE DIRECTIVE NOT ON FILE 08/25/2016 Diabetic [...] 11/14/2023 05/16/2023, 04/02, 04/04/2023, Additional history exists Phosphate 11/16/2023 11/15/2022, 10/30, 05/10/2022, Additional history exists COLONOSCOPY-EVERY 5 YRS AGES 18-100 11/18/2023 11/17/2018 Depression Screening 01/12/2024 01/11/2023, 02/22/20 15 O2 ASSESSMENT COMPLETED IN PAST YEAR FOR COPD 03/15/2024 03/15/2023, 05/24/2014 (Course Completed) Hgb 05/16/2024 05/16/2023, 04/02, 04/04/2023, Additional history exists Lipid Panel 01/19/2028 01/18/2023, 11/30, 06/16/2022, Additional history exists DTaP,Tdap,and Td Vaccines (3 - Td or Tdap) 07/22/2032 07/22/2022, 01/05/2012 Hepatitis B Completed 12/06/2018, 0506/2018, 09/01/2018, Additional history exists Pneumococcal Vaccine: 65+ [...] this encounter Medical Devices Implanted Type Area Core Maker Helper Device Identifier Shelf Expiration Date Model / Serial / Lot Lens Intraoc 21.5 - [id number] - [id number] Implanted:Qty: 1 on 06/10/2020 by Pietro Nuñez MD at OR [facility] Right: Eye [employer]OM[employer] 12/30/2024 [id number] / [id number] / [id number] Lens Intraoc 21.5 - [id number] - [id number] Implanted:Qty: 1 on 06/24/2020 by Pietro Nuñez MD at OR [facility] Left: Eye [employer]CH [employer] LOMB 01/29/2025 [id number] / [id number] / [id number] documented as of this encounter Care Teams Psychology Lecturer Relationship Specialty Start Date End Date August Esposito MD 200 [facility] [place] [address] PCP - General Internal Medicine 12/13/11 documented as of this encounter
--- OUTSIDE RECORDS SUMMARY | 2023-05-24 01:51 | External Medical Summary | Summary of Care ---
Author Name Unknown Organization [facility] Address [address] [place] [address] Phone [phone] Care Team Providers Care Manager Cargo Name Role Phone August Esposito MD Primary Care Provider + Reason for Visit * Reason Comments Outpatient Testing Encounter Details Date Type Department Care Team (Latest Contact Info) Description 05/16/2023 1:50 PM EST Laboratory [facility] [place] [address] [place] [phone] [place], [facility] [address] [place] [address] Encounter for long-term (current) use of other medications; Hypomagnesemia; Status post lung transplantation (HCC); Meningitis, 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HCC) Allergies Active Allergy Reactions Criticality Noted Date Comments Pollen 01/02/2020 Other reaction(s): Sneezing (finding) documented as of this encounter (statuses as of 05/16/2023) Medications Medication Sig Dispensed Refills Start Date [...] 30 Tablet 12 12/02/2021 Active Litetouch Pen [place] 31G X 8 MM (Insulin Pen Needle)Indications:T ype 2 diabetes mellitus with hemoglobin A1c goal of less than 7.0% ([facility]) USE WITH INSULIN 3 TIMES A DAY WITH MEALS. 100 Each 5 01/07/2022 Active Insulin Lispro (1 Unit Dial) 100 UNIT/ML Subcutaneous Solution Pen-injector (Admelog)Indications :Type 2 diabetes mellitus with hemoglobin A1c goal of less than 7.0% ([facility]) Inject under the skin 8 Units three times a day with meals . Hold if meal will be missed 9 mL 2 02/04/2022 Active Accu-Chek Softclix LancetsIndications:T ype 2 diabetes mellitus with hemoglobin A1c goal of less than 7.0% ([facility]) Test one time daily. Dx: E11.9 100 Each 3 04/04/2022 Active Fluticasone Furoate-Vilanterol 100-25 MCG/ACT Inhalation Aerosol Powder Breath Activated (BREO ellipta)Indications: COPD, group C, by GOLD 2017 classification ([facility]) Inhale 1 Puff by mouth in the [...] disease, with long-term current use of insulin ([facility]) Use to check sugars 4 times a [...] MG Oral Tablet (Deltasone)Indicatio ns:Lung transplant status ([facility]) Take 1 Tablet by mouth in the morning. TAKING 5mg DAILY. 90 Tablet 3 01/19/2023 Active Comirnaty 30 MCG/0.3ML Intramuscular Suspension Inject 0.3 mL into a large muscle. 0.3 mL 0 03/07/2023 Active Insulin Glargine Solostar 100 UNIT/ML Subcutaneous Solution Pen-injector (Lantus SoloStar)Indications :Type 2 diabetes mellitus with hemoglobin A1c goal of less than 7.0% ([facility]) Inject 15 Units under the skin at [...] Status Tixagevimab inj 300 mgIndications:Lung transplant status ([facility]) 300 mg IM [id number] 01/21/2022 Active Cilgavimab inj 300 mgIndications:Lung transplant status ([facility]) 300 mg IM [id number] 01/21/2022 Active documented as of this encounter (statuses as of 05/16/2023) Active Problems Problem Noted Date Diagnosed Date [...] Pain medication agreement 04/18/2012 Overview: Signed 04/18/12 Budvw-9-uyycdgiyzzg deficiency 09/24/2010 Overview: Prolastin 60mg/kg [facility]07[facility] Zam[facility] given fall 2010 caused arthralgias. 08/28/10 - <30 10/12/08 - MM allele 08/22/08 - 232 Proteinuria 10/08/2009 History of tobacco use 09/10/2009 Chronic rhinitis 09/10/2009 Esophageal reflux Disc disorder of lumbar region Overview: has had multiple surgeries - now w/ chronic back pain from postlaminectomy syndrome documented as of this encounter (statuses as of 05/16/2023) Resolved Problems Problem Noted Date Diagnosed Date [...] HX- NONHODGKIN'S LYMPHOMA 07/21/2009 Overview: Sep 2008, [facility], received 3 doses of chemo, remission COPD exacerbation 01/09/2009 12/16/2009 COPD, severity to be determined 01/09/2009 04/13/2011 Overview: 06/05/10: 4 LPM 24hrs/day. 07/26/09: Failed 2 step at [facility], 2 LPM 24 hr/day 07/15/09: Nocturnal [...] 0 Overview: chronic back pain - sees [facility] Pain Management Other malignant lymphomas, u nspecified site, extranodal and solid organ sites 011 Overview: NHL- Sep 2008 at [facility] Dr Caceres Major depressive disorder Overview: ICD-10 update of inactive term Other malignant lymphomas, u nspecified site, extranodal and solid organ sites 018 Overview: NHL- Sep 2008 at [facility] Dr Caceres documented as of this encounter (statuses as of 05/16/2023) Immunizations Name Administration Dates Next Due COVID-19 [...] 05/31/2023 2:00 PM EST Office Visit Pharmacy, [facility] [address] [facility] [place] [address] [facility] [address] [facility] [place] [address] 07/20/2023 2:00 PM EDT Office Visit Neurology [facility] [place] [address] [address] Alva Contreras PA-C [address] [address] 07/26/2023 2:40 PM EDT Office Visit General Internal Medicine [facility] [place] [address] [address] August Esposito MD [address] [facility] [place] [address] (work) Pending Results Name Type Priority Associated Diagnoses Date /Time CBC WITH WBC DIFFERENTIAL Lab Routine Encounter for long-term (current) use of other medications Hypomagnesemia Status post lung transplantation ([facility]) 05/16/2023 1:48 PM EST BASIC METABOLIC PANEL Lab Routine Encounter for long-term (current) use of other medications Hypomagnesemia Status post lung transplantation ([facility]) 05/16/2023 1:48 PM EST MAGNESIUM Lab Routine Encounter for long-term (current) use of other medications Hypomagnesemia Status post lung transplantation ([facility]) 05/16/2023 1:48 PM EST TACROLIMUS LEVEL Lab Routine Encounter for long-term (current) use of other medications Hypomagnesemia Status post lung transplantation ([facility]) 05/16/2023 1:48 PM EST EVEROLIMUS, LC/MS/MS, BLOOD Lab Routine Encounter for long-term (current) use of other medications Hypomagnesemia Status post lung transplantation ([facility]) 05/16/2023 1:48 PM EST CYTOMEGALOVIRUS DNA, QUANTITATIVE REAL-TIME PCR Lab Routine Encounter for long-term (current) use of other medications Hypomagnesemia Status post lung transplantation ([facility]) 05/16/2023 1:48 PM EST HEPATIC FUNCTION PANEL Lab Routine Meningitis, 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[facility]) 05/16/2023 1:48 PM EST CBC Lab Routine Encounter for long-term (current) use of other medications Hypomagnesemia Status post lung transplantation ([facility]) 05/16/2023 1:48 PM EST DIFFERENTIAL, AUTOMATED Lab Routine Encounter for long-term (current) use of other medications Hypomagnesemia Status post lung transplantation ([facility]) 05/16/2023 1:48 PM EST Scheduled Procedures Name Priority Associated Diagnoses Date/Ti me COLONOSCOPY FLEXIBLE PROXIMA L DIAGNOSTIC Recall Screening for malignant neoplasm of colon Health Maintenance Due Date Last Done Comments *ADVANCE DIRECTIVE NOT ON FILE 08/25/2016 Diabetic Eye Exam 03/18/2021 03/18/2020, , 03/19/2014, Additional history exists Mammogram 07/18/2021 07/18/2020, 05/0 12/2018, 09/07/2018, Additional history exists DXA Scan 09/11/2021 09/11/2018, 09/11/2018 Zoster Vaccines (2 of 2) 09/16/2022 07/22/2022 COVID-19 Vaccine (5 - 2022-24 season) 2022 04/21/2022, 01/24/2021, 07/03/2020, Additional history exists Albumin/Creatinine Ratio 06/16/2023 023, 09/11/2019, 12/06/2018, Additional history exists HbA1c 06/16/2023 12/14/2022, 10/30, 06/16/2022, Additional history exists Diabetic Foot Exam 07/06/2023 07/05/2022, 0 06/10/2021, 07/10/2020, Additional history exists GFR 10/29/2023 04/29/2023, 1207/2022, 03/08/2023, Additional history exists CKD PHOS USE SMARTSET 24217 11/16/202310/30, 11/08/2022, 05/10/2022, Additional history exists COLONOSCOPY-EVERY 5 YRS AGES 18-100 11/18/2023 11/17/2018 Depression Screening 01/12/2024 01/11/2023, 02/22/20 15 O2 ASSESSMENT COMPLETED IN PAST YEAR FOR COPD 03/15/2024 03/15/2023, 05/24/2014 (Course Completed) CKD HGB USE SMARTSET 33083 04/29/202404/29, 04/29/2023, 04/04/2023, Additional history exists Lipid Panel 01/19/2028 [...] this encounter Medical Devices Implanted Type Area Chemical Laboratory Technician Device Identifier Shelf Expiration Date Model / Serial / Lot Lens Intraoc 21.5 - [id number] - [id number] Implanted:Qty: 1 on 06/10/2020 by Pietro Nuñez MD at OR [facility] Right: Eye [employer]OM[employer] 12/30/2024 [id number] / [id number] / [id number] Lens Intraoc 21.5 - [id number] - [id number] Implanted:Qty: 1 on 06/24/2020 by Pietro Nuñez MD at OR [facility] Left: Eye BA[employer]CH [employer] LOMB 01/29/2025 [id number] / [id number] / [id number] documented as of this encounter Visit Diagnoses Diagnosis Encounter for long-term (current) use of other medications Hypomagnesemia 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
--- OUTSIDE RECORDS SUMMARY | 2023-05-24 01:51 | External Medical Summary | Summary of Care ---
Author Name Unknown Organization [facility] Address [address] [place] [address] Phone [phone] Care Team Providers Care Criminal Justice Lawyer Name Role Phone August Esposito MD Primary Care Provider + Reason for Visit * Reason Comments Outpatient Testing Encounter Details Date Type Department Care Team (Latest Contact Info) Description 05/16/2023 1:50 PM EST Laboratory [facility] [place] [address] [place] [phone] [place], Lab Scenery [address] [place] [address] Encounter for long-term (current) use of other [...] 30 Tablet 12 12/02/2021 Active Litetouch Pen [place] 31G X 8 MM (Insulin Pen Needle)Indications:T ype 2 diabetes mellitus with hemoglobin A1c goal of less than 7.0% ([facility]) USE WITH INSULIN 3 TIMES A DAY WITH MEALS. 100 Each 5 01/07/2022 Active Insulin Lispro (1 Unit Dial) 100 UNIT/ML Subcutaneous Solution Pen-injector (Admelog)Indications :Type 2 diabetes mellitus with hemoglobin A1c goal of less than 7.0% ([facility]) Inject under the skin 8 Units three times a day with meals . Hold if meal will be missed 9 mL 2 02/04/2022 Active Accu-Chek Softclix LancetsIndications:T ype 2 diabetes mellitus with hemoglobin A1c goal of less than 7.0% ([facility]) Test one time daily. Dx: E11.9 100 Each 3 04/04/2022 Active Fluticasone Furoate-Vilanterol 100-25 MCG/ACT Inhalation Aerosol Powder Breath Activated (BREO ellipta)Indications: COPD, group C, by GOLD 2017 classification ([facility]) Inhale 1 Puff by mouth in the [...] disease, with long-term current use of insulin ([facility]) Use to check sugars 4 times [...] MG Oral Tablet (Deltasone)Indicatio ns:Lung transplant status ([facility]) Take 1 Tablet by mouth in the morning. TAKING 5mg DAILY. 90 Tablet 3 01/19/2023 Active Comirnaty 30 MCG/0.3ML Intramuscular Suspension Inject 0.3 mL into a large muscle. 0.3 mL 0 03/07/2023 Active Insulin Glargine Solostar 100 UNIT/ML Subcutaneous Solution Pen-injector (Lantus SoloStar)Indications :Type 2 diabetes mellitus with hemoglobin A1c goal of less than 7.0% ([facility]) Inject 15 Units under the skin [...] Status Tixagevimab inj 300 mgIndications:Lung transplant status ([facility]) 300 mg IM [id number] 01/21/2022 Active Cilgavimab inj 300 mgIndications:Lung transplant status ([facility]) 300 mg IM [id number] 01/21/2022 Active documented as of this encounter [...] Pain medication agreement 04/18/2012 Overview: Signed 04/18/12 Wqfsq-4-zevfrpuifaf deficiency 09/24/2010 Overview: Prolastin 60mg/kg [facility] 06/07/11[facility] given fall 2010 caused arthralgias. [...] HX- NONHODGKIN'S LYMPHOMA 07/21/2009 Overview: Sep 2008, [facility], received 3 doses of chemo, remission COPD exacerbation 01/09/2009 12/16/2009 COPD, severity to be determined 01/09/2009 04/13/2011 Overview: 06/05/10: 4 LPM 24hrs/day. 07/26/09: Failed 2 step at [facility], 2 LPM 24 hr/day 07/15/09: Nocturnal [...] 0 Overview: chronic back pain - sees [facility] Pain Management Other malignant lymphomas, u nspecified site, extranodal and solid organ sites 011 Overview: NHL- Sep 2008 at [facility] Dr Caceres Major depressive disorder Overview: ICD-10 update of inactive term Other malignant lymphomas, u nspecified site, extranodal and solid organ sites 018 Overview: NHL- Sep 2008 at [facility] Dr Caceres documented as of this encounter [...] 05/31/2023 2:00 PM EST Office Visit Pharmacy, [facility] [address] [place] [address] [facility] [address] [place] [address] 07/20/2023 2:00 PM EDT Office Visit Neurology [facility] [place] [address] [address] Alva Contreras PA-C [address] [address] 07/26/2023 2:40 PM EDT Office Visit General Internal Medicine [facility] [place] [address] [address] August Esposito MD [address] [facility] [place] [phone] (work) Pending Results Name Type Priority Associated Diagnoses Date /Time CBC WITH WBC DIFFERENTIAL Lab Routine Encounter for long-term (current) use of other medications Hypomagnesemia Status post lung transplantation ([facility]) 05/16/2023 1:48 PM EST BASIC METABOLIC PANEL Lab Routine Encounter for long-term (current) use of other medications Hypomagnesemia Status post lung transplantation ([facility]) 05/16/2023 1:48 PM EST MAGNESIUM Lab Routine Encounter for long-term (current) use of other medications Hypomagnesemia Status post lung transplantation ([facility]) 05/16/2023 1:48 PM EST TACROLIMUS LEVEL Lab Routine Encounter for long-term (current) use of other medications Hypomagnesemia Status post lung transplantation ([facility]) 05/16/2023 1:48 PM EST EVEROLIMUS, LC/MS/MS, BLOOD Lab Routine Encounter for long-term (current) use of other medications Hypomagnesemia Status post lung transplantation ([facility]) 05/16/2023 1:48 PM EST CYTOMEGALOVIRUS DNA, QUANTITATIVE REAL-TIME PCR Lab Routine Encounter for long-term (current) use of other medications Hypomagnesemia Status post lung transplantation ([facility]) 05/16/2023 1:48 PM EST HEPATIC FUNCTION PANEL Lab Routine Meningitis, 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[facility]) 05/16/2023 1:48 PM EST CBC Lab Routine Encounter for long-term (current) use of other medications Hypomagnesemia Status post lung transplantation ([facility]) 05/16/2023 1:48 PM EST DIFFERENTIAL, AUTOMATED Lab Routine Encounter for long-term (current) use of other medications Hypomagnesemia Status post lung transplantation ([facility]) 05/16/2023 1:48 PM EST Scheduled Procedures Name [...] Additional history exists CKD PHOS USE SMARTSET 62777 11/16/202310/30, 11/08/2022, 05/10/2022, Additional history exists COLONOSCOPY-EVERY 5 YRS AGES 18-100 11/18/2023 11/17/2018 Depression Screening 01/12/2024 01/11/2023, 02/22/20 15 O2 ASSESSMENT COMPLETED IN PAST YEAR FOR COPD 03/15/2024 03/15/2023, 05/24/2014 (Course Completed) CKD HGB USE SMARTSET 08435 04/29/202404/29, 04/29/2023, 04/04/2023, Additional history exists Lipid [...] this encounter Medical Devices Implanted Type Area Senior Compensation Analyst Device Identifier Shelf Expiration Date Model / Serial / Lot Lens Intraoc 21.5 - [id number] - [id number] Implanted:Qty: 1 on 06/10/2020 by Pietro Nuñez MD at OR [facility] Right: Eye [employer] 12/30/2024 [id number] / [id number] / [id number] Lens Intraoc 21.5 - [id number] - [id number] Implanted:Qty: 1 on 06/24/2020 by Pietro Nuñez MD at OR [facility] Left: Eye [employer] 01/29/2025 [id number] / [id number] / [id number] documented as of this encounter Visit Diagnoses Diagnosis Encounter for long-term (current) use of other medications Hypomagnesemia 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
--- OUTSIDE RECORDS SUMMARY | 2023-05-24 01:52 | External Medical Summary ---
Author Name Unknown Address Unknown Organization K09[facility] [place] [address] Laboratory Report Ordering Provider Test Date Status KOBE CHOWDHURYANTA 05/16/2023 13:48:47 Final Observation Date Value Abnormality Reference (Units ) Status Albumin 05/16/2023 13:48:47 3.7 Below low normal 3.8-5.0 (g/dL) Final AST (Aspartate aminotransferase) 05/16/2023 13:48:47 32 10-35 (U/L) Final Alk Phos 05/16/2023 13:48:47 69 35-130 (U/L) Final ALT (Alanine aminotransferase) 05/16/2023 13:48:47 <5 Below low normal 10-35 (U/L) Final Bilirubin, Total 05/16/2023 13:48:47 0.2 <=1.2 (mg/dL) Final Bilirubin, Direct 05/16/2023 13:48:47 <0.2 0.0-0.3 (mg/dL) Final Protein 05/16/2023 13:48:47 6.6 6.0-8.3 (g/dL) Final Performing Location [facility] [place] [address]
--- OUTSIDE RECORDS SUMMARY | 2023-05-24 01:52 | External Medical Summary | Summary of Care ---
Author Name Unknown Organization [facility] Address [address] [place] [address] Phone [phone] Care Team Providers Care Marketing Engineer Name Role Phone August Esposito MD Primary Care Provider + Reason for Visit * Reason Onset Date Comments Test Results 04/06/2023 Unexpected or In determinate Result Encounter Details Date Type Department Care Team (Late st Contact Info) Description 04/06/2023 Telephone Radiology, [facility] [address] [place] [address] Vic Del Rio PA-C [address] [place] [address] Test Results (Unexpected or Indeterminate ... Allergies Active Allergy Reactions Criticality Noted Date Comments Pollen 01/02/2020 Other reaction(s): Sneezing (finding) documented as of this encounter (statuses as of 04/07/2023) Medications Medication Sig Dispensed Refills Start Date [...] 30 Tablet 12 12/02/2021 Active Litetouch Pen [place] 31G X 8 MM (Insulin Pen Needle)Indications:T ype 2 diabetes mellitus with hemoglobin A1c goal of less than 7.0% ([facility]) USE WITH INSULIN 3 TIMES A DAY WITH MEALS. 100 Each 5 01/07/2022 Active Insulin Lispro (1 Unit Dial) 100 UNIT/ML Subcutaneous Solution Pen-injector (Admelog)Indications :Type 2 diabetes mellitus with hemoglobin A1c goal of less than 7.0% ([facility]) Inject under the skin 8 Units three times a day with meals . Hold if meal will be missed 9 mL 2 02/04/2022 Active Accu-Chek Softclix LancetsIndications:T ype 2 diabetes mellitus with hemoglobin A1c goal of less than 7.0% ([facility]) Test one time daily. Dx: E11.9 100 Each 3 04/04/2022 Active Fluticasone Furoate-Vilanterol 100-25 MCG/ACT Inhalation Aerosol Powder Breath Activated (BREO ellipta)Indications: COPD, group C, by GOLD 2017 classification ([facility]) Inhale 1 Puff by mouth in the [...] disease, with long-term current use of insulin ([facility]) Use to check sugars 4 times a [...] disorder with single episode, in partial remission ([facility]) Take 1 Tablet by mouth in the morning. 90 Tablet 1 01/11/2023 Active Polyethylene Glycol 3350 17 GM/SCOOP Oral PowderIndications:Co nstipation, unspecified constipation type Take 17 g by mouth as needed for Constipation. Dissolve one heaping tablespoon in 8 ounces of water or juice. 17 g 0 01/11/2023 Active predniSONE 5 MG Oral Tablet (Deltasone)Indicatio ns:Lung transplant status ([facility]) Take 1 Tablet by mouth in the morning. TAKING 5mg DAILY. 90 Tablet 3 01/19/2023 Active Comirnaty 30 MCG/0.3ML Intramuscular Suspension Inject 0.3 mL into a large muscle. 0.3 mL 0 03/07/2023 Active oxyCODONE HCl ER 15 MG Oral Tablet ER 12 Hour Abuse-Deterrent (oxyCONTIN) Take 1 Tablet by mouth in the morning and 1 Tablet before bedtime. 60 Tablet 0 03/29/2023 Active Insulin Glargine Solostar 100 UNIT/ML Subcutaneous Solution Pen-injector (Lantus SoloStar)Indications :Type 2 diabetes mellitus with hemoglobin A1c goal of less than 7.0% (HCC) Inject 15 Units under the skin at bedtime. 15 mL 2 03/31/2023 Active HYDROmorphone HCl 2 MG Oral Tablet (Dilaudid)Indication s:Disc disorder of lumbar region Take 1 Tablet by mouth every 12 hours as needed for Pain, Severe. 60 Tablet 0 04/01/2023 Active Hospital, Clinic, or Other Facility Administered Medication Ordered Dose Route Frequency Start Date End Date Status Tixagevimab inj 300 mgIndications:Lung transplant status ([facility]) 300 mg IM [id number] 01/21/2022 Active Cilgavimab inj 300 mgIndications:Lung transplant status ([facility]) 300 mg IM [id number] 01/21/2022 Active documented as of this encounter (statuses as of 04/07/2023) Active Problems Problem Noted Date Diagnosed Date History of CVA in adulthood 11/22/2022 Chronic bilateral back pain 07/05/2022 Mild dementia with mood disturbance 06/11/2022 Immunosuppressed status 06/10/2021 Major depressive disorder wi th single episode, in partial remission 06/10/2021 Type 2 diabetes mellitus wit h stage 3b chronic kidney disease, with long-term current use of insulin 06/10/2021 History of DVT (deep vein thrombosis) 04/03/2021 Gastroparesis 02/02/2021 Chronic kidney disease, stage 3b 10/14/2020 Overview: Per CKD protocol Type 2 diabetes mellitus wit h stage 3b chronic kidney disease 09/09/2020 Overview: Per CKD protocol Benign hypertension with stage 3b chronic kidney disease 09/09/2020 Overview: Per CKD protocol Tracheal stenosis 08/18/2020 Pulmonary HTN 07/10/2020 Hypertension [...] Pain medication agreement 04/18/2012 Overview: Signed 04/18/12 Mnuay-0-wwzvwyfticv deficiency 09/24/2010 Overview: Prolastin 60mg/kg started 06/07/11, [facility] Zamaira given fall 2010 caused arthralgias. 08/28/10 - <30 10/12/08 - MM allele 08/22/08 - 232 Proteinuria 10/08/2009 History of tobacco use 09/10/2009 Chronic rhinitis 09/10/2009 Esophageal reflux Disc disorder of lumbar region Overview: has had multiple surgeries - now w/ chronic back pain from postlaminectomy syndrome documented as of this encounter (statuses as of 04/07/2023) Resolved Problems Problem Noted Date Diagnosed Date Resolved Date Type 2 diabetes mellitus wit h stage 4 chronic kidney disease, with long-term current use of insulin 06/11/2022 07/05/2022 Protein-calorie malnutrition 10/21/2021 06/11/2022 Mild dementia 06/10/2021 11/22/2022 Memory loss 09/26/2020 06/11/2022 Benign hypertension with CKD (chronic kidney disease) [...] HX- NONHODGKIN'S LYMPHOMA 07/21/2009 Overview: Sep 2008, [facility], received 3 doses of chemo, remission COPD exacerbation 01/09/2009 12/16/2009 COPD, severity to be determined 01/09/2009 04/13/2011 Overview: 06/05/10: 4 LPM 24hrs/day. 07/26/09: Failed 2 step at [facility], 2 LPM 24 hr/day 07/15/09: Nocturnal pulse [...] 0 Overview: chronic back pain - sees [facility] Pain Management Other malignant lymphomas, u nspecified site, extranodal and solid organ sites 011 Overview: NHL- Sep 2008 at [facility] Dr Caceres Major depressive disorder Overview: ICD-10 update of inactive term Other malignant lymphomas, u nspecified site, extranodal and solid organ sites 018 Overview: NHL- Sep 2008 at [facility] Dr Caceres documented as of this encounter (statuses as of 04/07/2023) Immunizations Name Administration Dates Next Due COVID-19 mRNA, LNP-s, No Pre serve, 2-Dose Series (Moderna) 01/24/2021,07/03/2020,05/31/2020 Covid-19, Mrna, Lnp-s, Pf, B ivalent, 30 Mcg, IM, 12 yrs and above (Pfizer) 04/21/2022 H1N1 2009 Influenza, IM 06/11/2009 Hepatitis B Vaccine 09/01/2018 Hepatitis B, 20+ yrs 12/06/2018,09/02/19 19,04/21/2011,11/18,09/30/2010 Pneumococcal Conjugate Vacc, 13 Valent (Prevnar) 02/13/2015,11/28/2014 Pneumococcal Polysaccharide PPV23 (Pneumovax) 07/05/2022,08/20/2016,04/01/2010,05/16 SEASONAL INFLUENZA, PF, 6 M & Above, IM , (FLULAVAL or FLUZONE) 03/15/2019,02/13/2018,02/11/2017 Season Influenza, Quad, PF, Adjuvanted, 65+ Yrs, IM (FLUAD) 01/02/2020 Seasonal Influenza, Quadriva lent Hd (Fluzone Hd) [...] encounter Miscellaneous Notes * Telephone Encounter - Cheryl Murillo MD - 04/07/2023 2:49 PM EST Okay - keep infectious disease doctor which is important . Move neurology appoint sooner as well * Telephone Encounter - Slim Cantu CMA - 04/07/2023 2:35 PM EST It is infectious disease doctor, unsure of name. neurology not scheduled till June * Telephone Encounter - Cheryl Murillo MD - 04/07/2023 2:26 PM EST I see a TE from 04/06 saying that he is taking record to [facility] for a doctor appoint - who is doctor ?neurosurgery ? If no keep appoint as scheduled * Telephone Encounter - Slim Cantu CMA - 04/07/2023 1:37 PM EST Patient's is aware and verbalized understanding, states mindy is scheduled with [facility] neurology in June, does she need sooner appt? * Telephone Encounter - Cheryl Murillo MD - 04/07/2023 11:47 AM EST MRI brain - Abnormal signal and irregular parenchymal enhancement in the right anterior- inferior frontal lobe. Given the history of previous cryptococcal meningitis, this appearance raises concern for focal cerebritis, infection or another consideration. A late subacute/early chronic ischemic infarct could have a similar appearance. It seems he had MRI outside in 08/2022 and looks same but needs to compare . Noticed that he followswith outside neurologist . Keep appoint . Notify and make sure it's faxed * Telephone Encounter - Radha Burton OSA - 04/06/2023 2:35 PM EST Hello- The radiologist discovered an unexpected or indeterminate finding on Mindy Gipsont ([id number]) and asksthat you review the following report. IMPRESSION 1. New focus of abnormal signal and irregular parenchymal enhancement in the right anterior-inferior frontal lobe. 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 BAR STEWARD lymphoma would be another consideration. A late subacute/early chronic ischemic infarct could have a similar appearance. Comparison to prior studies, if available, would behelpful. Follow-up imaging is warranted. 2. Multiple chronic appearing lacunar infarcts scattered in the bilateral cerebellum are new compared to the previous brain MRI dated 08/23/2020. 3. Global cerebral volume loss with chronic deep white matter ischemic changes. Study Type:MRI BRAIN W WO CONTRAST Date of Study : 04/05/2023 Please respond to this encounter to acknowledge receipt of this message and take responsibility to ensure this report is reviewed. Thank you, TIKI Robles Client Service Rep [facility] documented in this encounter Plan of Treatment Upcoming Encounters Date Type Department Care Team (Late st Contact Info) Description 05/31/2023 2:00 PM EST Office Visit Pharmacy, [facility] [address] [address] [facility] [place] [address] [address] 07/20/2023 2:00 PM EDT Office Visit Neurology [facility] [place] [address] [address] Alva Contreras PA-C [address] [address] 07/26/2023 2:40 PM EDT Office Visit General Internal Medicine [facility] [place] [address] [address] August Esposito MD [address] [address] Scheduled Procedures Name Priority Associated Diagnoses Date/Ti [...] (2 of 2) 09/16/2022 07/22/2022 COVID-19 Vaccine ( season) 2022 04/21/2022, 01/24/2021, 07/03/2020, Additional history exists Albumin/Creatinine Ratio 06/16/2023 023, 09/11/2019, 12/06/2018, Additional history exists HbA1c 06/16/2023 12/14/2022, 10/30, 06/16/2022, Additional history exists Diabetic Foot Exam 07/06/2023 07/05/2022, 0 06/10/2021, 07/10/2020, Additional history exists GFR 10/04/2023 04/04/2023, 1110/2022, 02/21/2023, Additional history exists CKD PHOS USE SMARTSET 06940 11/16/202310/30, 11/08/2022, 05/10/2022, Additional history exists COLONOSCOPY-EVERY 5 YRS AGES 18-100 11/18/2023 11/17/2018 Depression Screening 01/12/2024 01/11/2023, 02/22/20 15 O2 ASSESSMENT COMPLETED IN PAST YEAR FOR COPD 03/15/2024 03/15/2023, 05/24/2014 (Course Completed) CKD HGB USE SMARTSET 52694 04/04/202404/04, 04/04/2023, 03/08/2023, Additional history exists Lipid Panel 01/19/2028 01/18/2023, [...] this encounter Medical Devices Implanted Type Area Gas Pumping Station Operator Device Identifier Shelf Expiration Date Model / Serial / Lot Lens Intraoc 21.5 - [id number] - [id number] Implanted:Qty: 1 on 06/10/2020 by Pietro Nuñez MD at OR [facility] Right: Eye [employer] 12/30/2024 [id number] / [id number] / [id number] Lens Intraoc 21.5 - [id number] - [id number] Implanted:Qty: 1 on 06/24/2020 by Pietro Nuñez MD at OR [facility] Left: Eye [employer] 01/29/2025 [id number] / [id number] / [id number] documented as of this encounter Care Teams Marketing Engineer Relationship Specialty Start Date End Date August Esposito MD [address] [place] [address] PCP - General Internal Medicine 12/13/11 documented as of this encounter
--- OUTSIDE RECORDS SUMMARY | 2023-05-24 01:52 | External Medical Summary ---
Author Name Unknown Address Unknown Organization K09[facility] [place] [address] Laboratory Report Ordering Provider Test Date Status DORA,CALVINDELORES 05/16/2023 13:48:47 Final Observation Date Value Abnormality Reference (Units ) Status Magnesium 05/16/2023 13:48:47 1.8 1.5-2.6 (m g/dL) Final Performing Location [facility] [place] [address]
--- OUTSIDE RECORDS SUMMARY | 2023-05-24 01:52 | External Medical Summary ---
Author Name Unknown Address Unknown Organization K09:[facility] [place] [address] Laboratory Report Ordering Provider Test Date Status NATALIE JOHN 04/29/2023 13:57:10 Final Observation Date Value Abnormality Reference (Units ) Status BUN 04/29/2023 13:57:10 35 Above high normal 6-20 (mg/dL) Final Creatinine 04/29/2023 13:57:10 2.5 Above high normal 0.5-1.0 (mg/dL) Final Glomerular filtration rate/1.73 sq M.predicted [Volume Rate/Area] in Serum, Plasma or Blood by Creatinine-based formula (CKD-EPI) 04/29/2023 13:57:10 20 Below low normal >=60 (mL/min) Final eGFR is calculated based on the CKD-EPI 2020 equation SODIUM 04/29/2023 13:57:10 140 135-146 (m mol/L) Final Potassium 04/29/2023 13:57:10 5.3 Above high normal 3. 5-5.1 (mmol/L) Final Cl 04/29/2023 13:57:10 106 98-107 (mm ol/L) Final CO2 04/29/2023 13:57:10 23 22-32 (mmo l/L) Final Anion gap 04/29/2023 13:57:10 11 7-15 (mmol /L) Final Glucose 04/29/2023 13:57:10 130 Above high normal 70 -120 (mg/dL) Final Calcium 04/29/2023 13:57:10 9.6 8.4-10.2 ( mg/dL) Final Performing Location [facility] [place] [address]
--- OUTSIDE RECORDS SUMMARY | 2023-05-24 01:52 | External Medical Summary ---
Author Name Unknown Address Unknown Organization K01:[facility] [address] [place] [address] Laboratory Report Ordering Provider Test Date Status DELFINA JOHNHORTENSIA 05/16/2023 13:48:47 Final Observation Date Value Abnormality Reference (Units) Status Cytomegalovirus DNA [Presence] in Serum or Plasma by with probe detection 05/16/2023 13:48:47 CMV DNA not detected CMV DNA not detected Final Performing Location [facility] [place] [address] [place] [address]
--- OUTSIDE RECORDS SUMMARY | 2023-05-24 01:52 | External Medical Summary ---
Author Name Unknown Address Unknown Organization K01:[facility] [place] - [address] [place] [address] Laboratory Report Ordering Provider Test Date Status DORACALVINDELORES 04/29/2023 13:57:10 Final Observation Date Value Abnormality Reference (Units) Status Cytomegalovirus DNA [Presence] in Serum or Plasma by with probe detection 04/29/2023 13:57:10 CMV DNA not detected CMV DNA not detected Final Performing Location [facility] - [address] [place] [address]
--- OUTSIDE RECORDS SUMMARY | 2023-05-24 01:52 | External Medical Summary | Summary of Care ---
Author Name Unknown Organization [facility] Address [address] [place] [address] Phone [phone] Care Team Providers Care Manufacturing Quality Inspector Name Role Phone August Esposito MD Primary Care Provider + Reason for Visit * Reason Onset Date Comments Test Results 04/06/2023 Unexpected or In determinate Result Encounter Details Date Type Department Care Team (Late st Contact Info) Description 04/06/2023 Telephone Radiology, [facility] [address] [place] [address] Vic Del Rio PA-C [address] [place] [address] Test Results (Unexpected or Indeterminate [...] 30 Tablet 12 12/02/2021 Active Litetouch Pen [place] 31G X 8 MM (Insulin Pen Needle)Indications:T [...] disorder with single episode, in partial remission ([facility]) Take 1 [facility] 300 mg IM [id number] 01/21/2022 Active Cilgavimab inj 300 mgIndications:Lung transplant status ([facility]) 300 mg IM [id number] 01/21/2022 Active documented as of this encounter [...] Pain medication agreement 04/18/2012 Overview: Signed 04/18/12 Mnzbk-5-hlvmxxrlcdi deficiency 09/24/2010 Overview: Prolastin 60mg/kg started 06/07/11, [facility] Zamaira given fall 2010 caused arthralgias. 08/28/10 [...] HX- NONHODGKIN'S LYMPHOMA 07/21/2009 Overview: Sep 2008, [facility], received 3 doses of chemo, remission COPD exacerbation 01/09/2009 12/16/2009 COPD, severity to be determined 01/09/2009 04/13/2011 Overview: 06/05/10: 4 LPM 24hrs/day. 07/26/09: Failed 2 step at [facility], 2 LPM 24 hr/day 07/15/09: [...] 0 Overview: chronic back pain - sees [facility] Pain Management Other malignant lymphomas, u nspecified site, extranodal and solid organ sites 011 Overview: NHL- Sep 2008 at [facility] Dr Caceres Major depressive disorder Overview: ICD-10 update of inactive term Other malignant lymphomas, u nspecified site, extranodal and solid organ sites 018 Overview: NHL- Sep 2008 at [facility] Dr Caceres documented as of this encounter [...] encounter Miscellaneous Notes * Telephone Encounter - Lorenza Orellana OSA - 04/07/2023 3:21 PM EST Pt added to high waitlist * Telephone Encounter - Slim Cantu CMA - 04/07/2023 3:00 PM EST Scheduling please assist with sooner neurology appt * Telephone Encounter - Cheryl Murillo MD [...] saying that he is taking record to [facility] for a doctor appoint - who is doctor ?neurosurgery ? If no keep appoint as scheduled * Telephone Encounter - Slim Cantu CMA - 04/07/2023 1:37 PM EST Patient's is aware and verbalized understanding, states mindy is scheduled with [facility] neurology in June, does she need [...] an unexpected or indeterminate finding on Mindy A Yolande ([id number]) and asksthat you review the following report. IMPRESSION 1. New focus of abnormal signal and irregular parenchymal enhancement in the right anterior-inferior frontal lobe. 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 SALES AND MARKETING SPECIALIST lymphoma would be another consideration. A late [...] reviewed. Thank you, TIKI Robles Client Service [facility] documented in this encounter Plan of Treatment Upcoming Encounters Date Type Department Care Team (Late st Contact Info) Description 05/31/2023 2:00 PM EST Office Visit Pharmacy, [facility] [address] [place] [address] [facility] [address] [place] [address] 07/20/2023 2:00 PM EDT Office Visit Neurology [facility] [address] [facility] [place] [address] Alva Contreras PA-C [address] [facility] [place] [address] 07/26/2023 2:40 PM EDT Office Visit General Internal Medicine [facility] [address] [facility] [place] [address] August Esposito MD [address] [facility] [place] [address] Scheduled Procedures Name Priority Associated Diagnoses Date/Ti me COLONOSCOPY FLEXIBLE PROXIMA L DIAGNOSTIC Recall Screening for malignant neoplasm of colon Health Maintenance Due Date Last Done Comments *ADVANCE DIRECTIVE NOT ON FILE 08/25/2016 Diabetic Eye Exam 03/18/2021 03/18/2020, , 03/19/2014, Additional history exists Mammogram 07/18/2021 07/18/2020, 050 12/2018, 09/07/2018, Additional history exists DXA Scan 09/11/2021 09/11/2018, 09/11/2018 Zoster Vaccines (2 of 2) 09/16/2022 07/22/2022 COVID-19 Vaccine ( season) 2022 04/21/2022, 01/24/2021, 07/03/2020, Additional history exists Albumin/Creatinine Ratio 06/16/2023 023, 09/11/2019, 12/06/2018, Additional history exists HbA1c 06/16/2023 12/14/2022, 10/30, 06/16/2022, Additional history exists Diabetic Foot Exam 07/06/2023 07/05/2022, 0 06/10/2021, 07/10/2020, Additional history exists GFR 10/04/2023 04/04/2023, 10/2022, 02/21/2023, Additional history exists CKD PHOS USE SMARTSET 05847 11/16/202310/30, 11/08/2022, 05/10/2022, Additional history exists COLONOSCOPY-EVERY 5 YRS AGES 18-100 11/18/2023 11/17/2018 Depression Screening 01/12/2024 01/11/2023, 02/22/20 15 O2 ASSESSMENT COMPLETED IN PAST YEAR FOR COPD 03/15/2024 03/15/2023, 05/24/2014 (Course Completed) CKD HGB USE SMARTSET 02112 04/04/202404/04, 04/04/2023, 03/08/2023, Additional history exists Lipid [...] this encounter Medical Devices Implanted Type Area Customer Care Representative Device Identifier Shelf Expiration Date Model / Serial / Lot Lens Intraoc 21.5 - [id number] - [id number] Implanted:Qty: 1 on 06/10/2020 by Pietro Nuñez MD at OR [facility] Right: Eye [employer] 12/30/2024 [id number] / [id number] / [id number] Lens Intraoc 21.5 - [id number] - [id number] Implanted:Qty: 1 on 06/24/2020 by Pietro Nuñez MD at OR [facility] Left: Eye [employer] 01/29/2025 [id number] / [id number] / [id number] documented as of this encounter Care Teams Manufacturing Quality Inspector Relationship Specialty Start Date End Date August Esposito MD [address] [place] [address] PCP - General Internal Medicine 12/13/11 documented as of this encounter
--- OUTSIDE RECORDS SUMMARY | 2023-05-24 01:52 | External Medical Summary | Summary of Care ---
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 Name Role Phone August Esposito MD Primary Care Provider + Reason for Visit * Reason Onset Date Comments Test Results 04/06/2023 Unexpected or In determinate Result Encounter Details Date Type Department Care Team (Late st Contact Info) Description 04/06/2023 Telephone Radiology, [facility] [address] [place] [address] Vic Del Rio PA-C [address] [place] [address] Test Results (Unexpected or Indeterminate [...] 30 Tablet 12 12/02/2021 Active Litetouch Pen [place] 31G X 8 MM (Insulin Pen Needle)Indications:T ype 2 diabetes mellitus with hemoglobin A1c goal of less than 7.0% ([facility]) USE WITH INSULIN 3 TIMES A DAY WITH MEALS. 100 Each 5 01/07/2022 Active Insulin Lispro (1 Unit Dial) 100 UNIT/ML Subcutaneous Solution Pen-injector (Admelog)Indications :Type 2 diabetes mellitus with hemoglobin A1c goal of less than 7.0% ([facility]) Inject under the skin 8 Units three times a day with meals . Hold if meal will be missed 9 mL 2 02/04/2022 Active Accu-Chek Softclix LancetsIndications:T ype 2 diabetes mellitus with hemoglobin A1c goal of less than 7.0% ([facility]) Test one time daily. Dx: E11.9 100 Each 3 04/04/2022 Active Fluticasone Furoate-Vilanterol 100-25 MCG/ACT Inhalation Aerosol Powder Breath Activated (BREO ellipta)Indications: COPD, group C, by GOLD 2017 classification ([facility]) Inhale 1 Puff by mouth in the [...] disease, with long-term current use of insulin ([facility]) Use to check sugars 4 times a [...] disorder with single episode, in partial remission ([facility]) Take 1 Tablet by mouth in the morning. 90 Tablet 1 01/11/2023 Active Polyethylene Glycol 3350 17 GM/SCOOP Oral PowderIndications:Co nstipation, unspecified constipation type Take 17 g by mouth as needed for Constipation. Dissolve one heaping tablespoon in 8 ounces of water or juice. 17 g 0 01/11/2023 Active predniSONE 5 MG Oral Tablet (Deltasone)Indicatio ns:Lung transplant status ([facility]) Take 1 Tablet by mouth in the [...] Status Tixagevimab inj 300 mgIndications:Lung transplant status ([facility]) 300 mg IM [id number] 01/21/2022 Active Cilgavimab inj 300 mgIndications:Lung transplant status ([facility]) 300 mg IM [id number] 01/21/2022 Active documented as of this encounter [...] Pain medication agreement 04/18/2012 Overview: Signed 04/18/12 Jszwq-9-kfonsjoeqrl deficiency 09/24/2010 Overview: Prolastin 60mg/kg [facility] 06[facility]07[facility]11[facility] Zam[facility] given fall 2010 caused arthralgias. [...] HX- NONHODGKIN'S LYMPHOMA 07/21/2009 Overview: Sep 2008, [facility], received 3 doses of chemo, remission COPD exacerbation 01/09/2009 12/16/2009 COPD, severity to be determined 01/09/2009 04/13/2011 Overview: 06/05/10: 4 LPM 24hrs/day. 07/26/09: Failed [address] [facility], 2 LPM 24 hr/day 07/15/09: Nocturnal [...] 0 Overview: chronic back pain - sees [facility] Pain Management Other malignant lymphomas, u nspecified site, extranodal and solid organ sites 011 Overview: NHL- Sep 2008 at [facility] [place] Caceres Major depressive disorder Overview: ICD-10 update of inactive term Other malignant lymphomas, u nspecified site, extranodal and solid organ sites 018 Overview: NHL- Sep 2008 at [facility] Dr Caceres documented as of this encounter [...] encounter Miscellaneous Notes * Telephone Encounter - Slim Cantu CMA [...] saying that he is taking record to [facility] for a doctor appoint - who is doctor ?neurosurgery ? If no keep appoint as scheduled * Telephone Encounter - Slim Cantu CMA - 04/07/2023 1:37 PM EST Patient's is aware and verbalized understanding, states mindy is scheduled with [facility] neurology in June, does she need sooner [...] an unexpected or indeterminate finding on Mindy Lanier ([id number]) and asksthat you review the following report. IMPRESSION 1. New focus of abnormal signal and irregular parenchymal enhancement in the right anterior-inferior frontal lobe. 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 A late [...] 05/31/2023 2:00 PM EST Office Visit Pharmacy, [facility] [address] [facility] [place] [address] [place] [address] 07/20/2023 2:00 PM EDT Office Visit Neurology [facility] [address] [facility] [place] [address] Alva Contreras PA-C [address] [place] [address] 07/26/2023 2:40 PM EDT Office Visit General Internal Medicine [facility] [address] [place] [address] August Esposito MD [address] [facility] [place] [address] Scheduled Procedures Name Priority Associated Diagnoses Date/Ti me COLONOSCOPY FLEXIBLE PROXIMA L DIAGNOSTIC Recall Screening for malignant neoplasm of colon Health Maintenance Due Date Last Done Comments *ADVANCE DIRECTIVE NOT ON FILE 08/25/2016 Diabetic Eye Exam 03/18/2021 03/18/2020, , 03/19/2014, Additional history exists Mammogram 07/18/2021 07/18/2020, 0512/2018, 09/07/2018, Additional history exists DXA Scan 09/11/2021 09/11/2018, 09/11/2018 Zoster Vaccines (2 of 2) 09/16/2022 07/22/2022 COVID-19 Vaccine ( season) 2022 04/21/2022, 01/24/2021, 07/03/2020, Additional history exists Albumin/Creatinine Ratio 06/16/2023 023, 09/11/2019, 12/06/2018, Additional history exists HbA1c 06/16/2023 12/14/2022, 07, 06/16/2022, Additional history exists Diabetic Foot Exam 07/06/2023 07/05/2022, 0 06/10/2021, 07/10/2020, Additional history exists GFR 10/04/2023 04/04/2023, 110 10/2022, 02/21/2023, Additional history exists CKD PHOS USE SMARTSET 51494 11/16/202310/30, 11/08/2022, 05/10/2022, Additional history exists COLONOSCOPY-EVERY 5 YRS AGES 18-100 11/18/2023 11/17/2018 Depression Screening 01/12/2024 01/11/2023, 02/22/20 15 O2 ASSESSMENT COMPLETED IN PAST YEAR FOR COPD 03/15/2024 03/15/2023, 05/24/2014 (Course Completed) CKD HGB USE SMARTSET 91684 04/04/202404/04, 04/04/2023, 03/08/2023, Additional history exists Lipid [...] this encounter Medical Devices Implanted Type Area Sterile Processing Technician Device Identifier Shelf Expiration Date Model / Serial / Lot Lens Intraoc 21.5 - [id number] - [id number] Implanted:Qty: 1 on 06/10/2020 by Pietro Nuñez MD at OR [facility] Right: Eye [employer] 12/30/2024 [id number] / [id number] / [id number] Lens Intraoc 21.5 - [id number] - [id number] Implanted:Qty: 1 on 06/24/2020 by Pietro Nuñez MD at OR [facility] Left: Eye [employer]OM[employer] 01/29/2025 [id number] / [id number] / [id number] documented as of this encounter Care Teams Ceramic Plater Relationship Specialty Start Date End Date August Esposito MD [address] [place] [address] PCP - General Internal Medicine 12/13/11 documented as of this encounter
--- OUTSIDE RECORDS SUMMARY | 2023-05-24 01:52 | External Medical Summary ---
Author Name Unknown Address Unknown Organization : Laboratory Report Ordering Provider Test Date Status NATALIE JOHN 05/16/2023 13:48:47 Final Observation Date Value Abnormality Reference (Units ) Status Everolimus [Mass/volume] in Blood 05/16/2023 13:48:47 6.3 (ng/mL) Final Unable to flag abnormal result(s), please refer
to reference range(s) below:
Trough: 3.0 - 8.0 ng/mL for Transplantation
Trough: 5.0 - 10.0 ng/mL for Oncology/Neurology
Symptoms of toxicity are more likely to occur at
trough levels exceeding 12.0 ng/mL.
This test was developed and its analytical performance
characteristics have been determined by [employer] [facility] [place], [place]. It has
not been cleared or approved by the U.S. Food and Drug
Administration. This assay has been validated pursuant
to the CLIA regulations and is used for clinical
purposes.

Test Performed at:
[facility]
[address] [place] [address]
Emory Amador M.D., Ph.D.,Director of Laboratories Performing Location
--- OUTSIDE RECORDS SUMMARY | 2023-05-24 01:52 | External Medical Summary ---
Author Name Unknown Address Unknown Organization [id number]:[facility] [place] [address] [place] [address] Laboratory Report Ordering Provider Test Date Status NATALIE JOHN 04/29/2023 13:57:10 Final Test performed by Immunoassa y on BOKU. Therapeutic ranges vary with type of transplant, time post-transplant, clinical protocols, and testing methodology. Results should be interpreted with clinical presentation and any signs rejection/toxicity. Observation Date Value Abnormality Reference (Units ) Status Tacrolimus (FK506) 04/29/2023 13:57:10 6.6 4 .0-12.0 (ng/mL) Final Performing Location [facility] - [address] [place] [address]
--- OUTSIDE RECORDS SUMMARY | 2023-05-24 01:52 | External Medical Summary ---
Author Name Unknown Address Unknown Organization [id number]:[facility] - [address] [place] [address] Laboratory Report Ordering Provider Test Date Status NATALIE JOHN 05/16/2023 13:48:47 Final Observation Date Value Abnormality Reference (Units ) Status WBC, Total 05/16/2023 13:48:47 6.46 4.00-10.80 (K/uL) Final RBC 05/16/2023 13:48:47 3.53 3.85-5.15 (M/uL) Final Hemoglobin 05/16/2023 13:48:47 10.7 Below low normal 12.0-15.3 (g/dL) Final HCT 05/16/2023 13:48:47 33.6 Below low normal 36.0-45.2 (%) Final MCV 05/16/2023 13:48:47 95.2 81.5-97.5 (fL) Final MCH 05/16/2023 13:48:47 30.3 27.0-34.0 (pg) Final MCHC 05/16/2023 13:48:47 31.8 32.0-36.0 (g/dL) Final RDW 05/16/2023 13:48:47 13.0 11.5-15.5 (%) Final Platelets 05/16/2023 13:48:47 164 140-400 (K/uL) Final MPV 05/16/2023 13:48:47 9.9 6.6-11.1 (fL) Final Nucleated erythrocytes/100 leukocytes [Ratio] in Blood by Automated count 05/16/2023 13:48:47 0 <=0 (/100 WBCs) Final Performing Location [facility] - [address] [place] [address]
--- OUTSIDE RECORDS SUMMARY | 2023-05-24 01:52 | External Medical Summary ---
Author Name Unknown Address Unknown Organization K09:[facility] [place] [address] Laboratory Report Ordering Provider Test Date Status NATALIE JOHN 05/16/2023 13:48:47 Final Observation Date Value Abnormality Reference (Units ) Status BUN 05/16/2023 13:48:47 44 Above high normal 6-20 (mg/dL) Final Creatinine 05/16/2023 13:48:47 3.5 Above high normal 0.5-1.0 (mg/dL) Final Glomerular filtration rate/1.73 sq M.predicted [Volume Rate/Area] in Serum, Plasma or Blood by Creatinine-based formula (CKD-EPI) 05/16/2023 13:48:47 14 Below low normal >=60 (mL/min) Final eGFR is calculated based on the CKD-EPI 2020 equation SODIUM 05/16/2023 13:48:47 138 135-146 (m mol/L) Final Potassium 05/16/2023 13:48:47 5.5 Above high normal 3. 5-5.1 (mmol/L) Final Cl 05/16/2023 13:48:47 105 98-107 (mm ol/L) Final CO2 05/16/2023 13:48:47 23 22-32 (mmo l/L) Final Anion gap 05/16/2023 13:48:47 10 7-15 (mmol /L) Final Glucose 05/16/2023 13:48:47 195 Above high normal 70 -120 (mg/dL) Final Calcium 05/16/2023 13:48:47 9.2 8.4-10.2 ( mg/dL) Final Performing Location [facility] [place] [address]
--- OUTSIDE RECORDS SUMMARY | 2023-05-24 01:52 | External Medical Summary ---
Author Name Unknown Address Unknown Organization K09:[facility] [place] [address] Laboratory Report Ordering Provider Test Date Status NATALIE JOHN 04/29/2023 13:57:10 Final Observation Date Value Abnormality Reference (Units ) Status SYNC LEUKOCYTES IN BLOOD BY AUTOMATED COUNT 04/29/2023 13:57:10 9.64 4.00-10.80 (K/uL) Final Neutrophils/100 leukocytes in Blood by Manual count 04/29/2023 13:57:10 88.0 Above high normal 40.0-75.0 (%) Final Lymphocytes/100 leukocytes in Blood by Manual count 04/29/2023 13:57:10 8.0 Below low normal 18.0-42.0 (%) Final Monocytes/100 leukocytes in Blood by Manual count 04/29/2023 13:57:10 4.0 1.0-11.0 (%) Final Neutrophils [#/volume] in Blood by Manual count 04/29/2023 13:57:10 8.48 Above high normal 1.80-7.70 (K/uL) Final Lymphocytes [#/volume] in Blood by Manual count 04/29/2023 13:57:10 0.77 Below low normal 1.00-4.80 (K/uL) Final Monocytes [#/volume] in Blood by Manual count 04/29/2023 13:57:10 0.39 0.00-1.10 (K/uL) Final Nucleated erythrocytes/100 leukocytes [Ratio] in Blood by Automated count 04/29/2023 13:57:10 Final Performing Location [facility] [place] [address]
--- OUTSIDE RECORDS SUMMARY | 2023-05-24 01:52 | External Medical Summary ---
Author Name Unknown Address Unknown Organization K09:[facility] [place] [address] Laboratory Report Ordering Provider Test Date Status NATALIE JOHN 04/29/2023 13:57:10 Final Observation Date Value Abnormality Reference (Units ) Status Magnesium 04/29/2023 13:57:10 2.1 1.5-2.6 (m g/dL) Final Performing Location [facility] [place] [address]
--- OUTSIDE RECORDS SUMMARY | 2023-05-24 01:52 | External Medical Summary ---
Author Name Unknown Address Unknown Organization K09:[facility] [place] [address] Laboratory Report Ordering Provider Test Date Status NATALIE JOHN 04/29/2023 13:57:10 Final Observation Date Value Abnormality Reference (Units ) Status WBC, Total 04/29/2023 13:57:10 9.64 4.00-10.8 0 (K/uL) Final RBC 04/29/2023 13:57:10 3.99 3.85-5.15 (M/uL) Final Hemoglobin 04/29/2023 13:57:10 12.1 12.0-15.3 (g/dL) Final HCT 04/29/2023 13:57:10 36.9 36.0-45.2 (%) Final MCV 04/29/2023 13:57:10 92.5 81.5-97.5 (fL) Final MCH 04/29/2023 13:57:10 30.3 27.0-34.0 (pg) Final MCHC 04/29/2023 13:57:10 32.8 32.0-36.0 (g/dL) Final RDW 04/29/2023 13:57:10 13.5 11.5-15.5 (%) Final Platelets 04/29/2023 13:57:10 99 Below low normal 140 -400 (K/uL) Final MPV 04/29/2023 13:57:10 9.4 6.6-11.1 ( fL) Final Performing Location [facility] [place] [address]
--- OUTSIDE RECORDS SUMMARY | 2023-05-24 01:52 | External Medical Summary ---
Author Name Unknown Address Unknown Organization K01:[facility] [place] [address] [facility] [address] Laboratory Report Ordering Provider Test Date Status NATALIE JOHN 05/16/2023 13:48:47 Final Observation Date Value Abnormality Reference (Units ) Status SYNC LEUKOCYTES IN BLOOD BY AUTOMATED COUNT 05/16/2023 13:48:47 6.46 4.00-10.80 (K/uL) Final Segs 05/16/2023 13:48:47 86.3 Above high normal 40.0-75.0 (%) Final Lymphs % 05/16/2023 13:48:47 6.3 Below low normal 18.0-42.0 (%) Final Monos 05/16/2023 13:48:47 6.3 1.0-11.0 (%) Final Eosinophils 05/16/2023 13:48:47 0.5 0.0-6.0 (%) Final Basos 05/16/2023 13:48:47 0.3 0.0-2.0 (%) Final Immature Granulocyte, Percent 05/16/2023 13:48:47 0.3 0.0-2.0 (%) Final Absolute Segs 05/16/2023 13:48:47 5.57 1.80-7.70 (K/uL) Final Lymphs, absolute 05/16/2023 13:48:47 0.41 Below low normal 1.00-4.80 (K/ul) Final Monos, Abs 05/16/2023 13:48:47 0.41 0.00-1.10 (K/uL) Final Eos, Abs 05/16/2023 13:48:47 0.03 0.00-0.70 (K/uL) Final Basos, Abs 05/16/2023 13:48:47 0.02 0.00-0.20 (K/uL) Final Immature Granulocytes, Number 05/16/2023 13:48:47 0.02 0.00-0.20 (K/uL) Final Performing Location [facility] [place] [facility] [address] [facility] [address]
--- OUTSIDE RECORDS SUMMARY | 2023-05-24 01:52 | External Medical Summary ---
Author Name Unknown Address Unknown Organization K01:[facility] [place] [address] [place] [address] Laboratory Report Ordering Provider Test Date Status NATALIE JOHN 05/16/2023 13:48:47 Final Test performed by Immunoassa y on CCBR-SYNARC. Therapeutic ranges vary with type of transplant, time post-transplant, clinical protocols, and testing methodology. Results should be interpreted with clinical presentation and any signs rejection/toxicity. Observation Date Value Abnormality Reference (Units ) Status Tacrolimus (FK506) 05/16/2023 13:48:47 11.2 4 .0-12.0 (ng/mL) Final Performing Location LABORATORY C - [address] [place] [address]
--- OUTSIDE RECORDS SUMMARY | 2023-05-24 01:52 | External Medical Summary ---
Author Name Unknown Address Unknown Organization : Laboratory Report Ordering Provider Test Date Status NATALIE JOHN 04/29/2023 13:57:10 Final Observation Date Value Abnormality Reference (Units ) Status Everolimus [Mass/volume] in Blood 04/29/2023 13:57:10 4.8 (ng/mL) Final Unable to flag abnormal result(s), please refer
to reference range(s) below:
Trough: 3.0 - 8.0 ng/mL for Transplantation
Trough: 5.0 - 10.0 ng/mL for Oncology/Neurology
Symptoms of toxicity are more likely to occur at
trough levels exceeding 12.0 ng/mL.
This test was developed and its analytical performance
characteristics have been determined by [facility] [place], [place]. It has
not been cleared or approved by the U.S. Food and Drug
Administration. This assay has been validated pursuant
to the CLIA regulations and is used for clinical
purposes.

Test Performed at:
[facility]
[address]
[place], [place]
Emory Amador M.D., Ph.D.,Director of Laboratories Performing Location
--- OUTSIDE RECORDS SUMMARY | 2023-05-24 01:52 | External Medical Summary | Summary of Care ---
Author Name Unknown Organization [facility] Address [address] [place] [address] Phone [phone] Care Team Providers Care Engineer Design And Construction Name Role Phone August Esposito MD Primary Care Provider + Reason for Visit * Reason Comments Outpatient Testing Encounter Details Date Type Department Care Team (Latest Contact Info) Description 04/29/2023 2:00 PM EST Laboratory [facility] [place] [address] [place] [phone] [place], Lab Scenery [address] [place] [address] Encounter for long-term (current) use of other medications; Hypomagnesemia; Status post lung transplantation (HCC) Allergies Active Allergy Reactions Criticality Noted Date Comments Pollen 01/02/2020 Other reaction(s): Sneezing (finding) documented as of this encounter (statuses as of 04/29/2023) Medications Medication Sig Dispensed Refills Start Date [...] 30 Tablet 12 12/02/2021 Active Litetouch Pen [place] 31G X 8 MM (Insulin Pen Needle)Indications:T ype 2 diabetes mellitus with hemoglobin A1c goal of less than 7.0% ([facility]) USE WITH INSULIN 3 TIMES A DAY WITH MEALS. 100 Each 5 01/07/2022 Active Insulin Lispro (1 Unit Dial) 100 UNIT/ML Subcutaneous Solution Pen-injector (Admelog)Indications :Type 2 diabetes mellitus with hemoglobin A1c goal of less than 7.0% ([facility]) Inject under the skin 8 Units three times a day with meals . Hold if meal will be missed 9 mL 2 02/04/2022 Active Accu-Chek Softclix LancetsIndications:T ype 2 diabetes mellitus with hemoglobin A1c goal of less than 7.0% ([facility]) Test one time daily. Dx: E11.9 100 Each 3 04/04/2022 Active Fluticasone Furoate-Vilanterol 100-25 MCG/ACT Inhalation Aerosol Powder Breath Activated (BREO ellipta)Indications: COPD, group C, by GOLD 2017 classification ([facility]) Inhale 1 Puff by mouth in [...] disease, with long-term current use of insulin ([facility]) Use to check sugars 4 [...] disorder with single episode, in partial remission ([facility]) Take 1 Tablet by mouth in the morning. 90 Tablet 1 01/11/2023 Active Polyethylene Glycol 3350 17 GM/SCOOP Oral PowderIndications:Co nstipation, unspecified constipation type Take 17 g by mouth as needed for Constipation. Dissolve one heaping tablespoon in 8 ounces of water or juice. 17 g 0 01/11/2023 Active predniSONE 5 MG Oral Tablet (Deltasone)Indicatio ns:Lung transplant status ([facility]) Take 1 Tablet by mouth in the morning. TAKING 5mg DAILY. 90 Tablet 3 01/19/2023 Active Comirnaty 30 MCG/0.3ML Intramuscular Suspension Inject 0.3 mL into a large muscle. 0.3 mL 0 03/07/2023 Active Insulin Glargine Solostar 100 UNIT/ML Subcutaneous Solution Pen-injector (Lantus SoloStar)Indications :Type 2 diabetes mellitus with hemoglobin A1c goal of less than 7.0% ([facility]) Inject 15 Units under the [...] Status Tixagevimab inj 300 mgIndications:Lung transplant status ([facility]) 300 mg IM [id number] 01/21/2022 Active Cilgavimab inj 300 mgIndications:Lung transplant status ([facility]) 300 mg IM [id number] 01/21/2022 Active documented as of this encounter (statuses as of 04/29/2023) Active Problems Problem Noted Date Diagnosed Date [...] Pain medication agreement 04/18/2012 Overview: Signed 04/18/12 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 Zamaira given fall 2010 caused arthralgias. 08/28/10 - <30 10/12/08 - MM allele 08/22/08 - 232 Proteinuria 10/08/2009 History of tobacco use 09/10/2009 Chronic rhinitis 09/10/2009 Esophageal reflux Disc disorder of lumbar region Overview: has had multiple surgeries - now w/ chronic back pain from postlaminectomy syndrome documented as of this encounter (statuses as of 04/29/2023) Resolved Problems Problem Noted Date Diagnosed Date [...] HX- NONHODGKIN'S LYMPHOMA 07/21/2009 Overview: Sep 2008, [facility] [place], received 3 doses of chemo, remission COPD exacerbation 01/09/2009 12/16/2009 COPD, severity to be determined 01/09/2009 04/13/2011 Overview: 06/05/10: 4 LPM 24hrs/day. 07/26/09: Failed 2 step at [facility], 2 LPM 24 hr/day 07/15/09: Nocturnal [...] 0 Overview: chronic back pain - sees [facility] Pain Management Other malignant lymphomas, u nspecified site, extranodal and solid organ sites 011 Overview: NHL- Sep 2008 at [facility] [place] Dr Caceres Major depressive disorder Overview: ICD-10 update of inactive term Other malignant lymphomas, u nspecified site, extranodal and solid organ sites 018 Overview: NHL- Sep 2008 at [facility] [place] Dr Caceres documented as of this encounter (statuses as of 04/29/2023) Immunizations Name Administration Dates Next Due COVID-19 [...] 05/31/2023 2:00 PM EST Office Visit Pharmacy, [facility] [address] [facility] [place] [address] [facility] [address] [facility] [place] [address] 07/20/2023 2:00 PM EDT Office Visit Neurology [facility] [address] [address] Alva Contreras PA-C [address] [address] 07/26/2023 2:40 PM EDT Office Visit General Internal Medicine [facility] [address] [address] August Esposito MD [address] [address] Pending Results Name Type Priority Associated Diagnoses Date /Time CBC WITH WBC DIFFERENTIAL Lab Routine Encounter for long-term (current) use of other medications Hypomagnesemia Status post lung transplantation (HCC) 04/29/2023 1:57 PM EST BASIC METABOLIC PANEL Lab Routine Encounter for long-term (current) use of other medications Hypomagnesemia Status post lung transplantation (HCC) 04/29/2023 1:57 PM EST MAGNESIUM Lab Routine Encounter for long-term (current) use of other medications Hypomagnesemia Status post lung transplantation (HCC) 04/29/2023 1:57 PM EST TACROLIMUS LEVEL Lab Routine Encounter for long-term (current) use of other medications Hypomagnesemia Status post lung transplantation (HCC) 04/29/2023 1:57 PM EST EVEROLIMUS, LC/MS/MS, BLOOD Lab Routine Encounter for long-term (current) use of other medications Hypomagnesemia Status post lung transplantation (HCC) 04/29/2023 1:57 PM EST CYTOMEGALOVIRUS DNA, QUANTITATIVE REAL-TIME PCR Lab Routine Encounter for long-term (current) use of other medications Hypomagnesemia Status post lung transplantation (HCC) 04/29/2023 1:57 PM EST CBC Lab Routine Encounter for long-term (current) use of other medications Hypomagnesemia Status post lung transplantation (HCC) 04/29/2023 1:57 PM EST DIFFERENTIAL, AUTOMATED Lab Routine Encounter for long-term (current) use of other medications Hypomagnesemia Status post lung transplantation (HCC) 04/29/2023 1:57 PM EST Scheduled Procedures Name Priority Associated [...] Additional history exists CKD PHOS USE SMARTSET 86193 11/16/202310/30, 11/08/2022, 05/10/2022, Additional history exists COLONOSCOPY-EVERY 5 YRS AGES 18-100 11/18/2023 11/17/2018 Depression Screening 01/12/2024 01/11/2023, 02/22/20 15 O2 ASSESSMENT COMPLETED IN PAST YEAR FOR COPD 03/15/2024 03/15/2023, 05/24/2014 (Course Completed) CKD HGB USE SMARTSET 83004 04/04/202404/04, 04/04/2023, 03/08/2023, Additional history exists Lipid Panel 01/19/2028 01/18/2023, 11/30, 06/16/2022, Additional history exists DTaP,Tdap,and Td Vaccines (3 - Td or Tdap) 07/22/2032 07/22/2022, 01/05/2012 Hepatitis B Completed 12/06/2018, 050 06/2018, 09/01/2018, Additional history exists Pneumococcal Vaccine: [...] this encounter Medical Devices Implanted Type Area Relief Charge Nurse Device Identifier Shelf Expiration Date Model / Serial / Lot Lens Intraoc 21.5 - [id number] - [id number] Implanted:Qty: 1 on 06/10/2020 by Pietro Nuñez MD at OR [facility] Right: Eye [employer] 12/30/2024 [id number] / [id number] / [id number] Lens Intraoc 21.5 - [id number] - [id number] Implanted:Qty: 1 on 06/24/2020 by Pietro Nuñez MD at OR [facility] Left: Eye [employer]OM[employer] 01/29/2025 [id number] / [id number] / [id number] documented as of this encounter Visit Diagnoses Diagnosis Encounter for long-term (current) use of other medications Hypomagnesemia 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
--- OUTSIDE RECORDS SUMMARY | 2023-05-24 01:52 | External Medical Summary | Summary of Care ---
Author Name Unknown Organization [facility] Address [address] [place] [address] Phone [phone] Care Team Providers Care Inverted Block Operator Name Role Phone August Driver MD Primary Care Provider + Reason for Visit * Reason Onset Date Comments Medication Refill 04/28/2023 Encounter Details Date Type Department Care Team (Late st Contact Info) Description 04/28/2023 Refill Pharmacy, [facility] [address] [place] [address] August Driver MD [address] [place] [address] Disc disorder of lumbar region Allergies Active Allergy Reactions Criticality Noted Date [...] as needed for Pain. 0 08/28/2019 Active sulfamethoxazole-tr imethoprim DS (BACTRIM DS) 800-160 MG per tablet [...] Active amLODIPine Besylate 5 MG Oral Tablet (Norvasc)Indication s:Hypertension goal BP (blood pressure) < 140/90 Take by mouth 1 Tablet in the morning. 30 Tablet 12 12/02/2021 Active Litetouch Pen [place] 31G X 8 MM (Insulin Pen Needle)Indications: Type 2 diabetes mellitus with hemoglobin A1c goal of less than 7.0% ([facility]) USE WITH INSULIN 3 TIMES A DAY WITH MEALS. 100 Each 5 01/07/2022 Active Insulin Lispro (1 Unit Dial) 100 UNIT/ML Subcutaneous Solution Pen-injector (Admelog)Indication s:Type 2 diabetes mellitus with hemoglobin A1c goal of less than 7.0% ([facility]) Inject under the skin 8 Units three times a day with meals . Hold if meal will be missed 9 mL 2 02/04/2022 Active Accu-Chek Softclix LancetsIndications: Type 2 diabetes mellitus with hemoglobin A1c goal of less than 7.0% ([facility]) Test one time daily. Dx: E11.9 100 Each 3 04/04/2022 Active Fluticasone Furoate-Vilanterol 100-25 MCG/ACT Inhalation Aerosol Powder Breath Activated (BREO ellipta)Indications :COPD, group C, by GOLD 2017 classification ([facility]) Inhale 1 Puff by mouth in the morning. 60 Blister Dosing Unit 5 05/25/2022 Active ProAir HFA 108 (90 Base) MCG/ACT Inhalation Aerosol SolutionIndications :Lung infection,Acute cough Inhale 2 Puffs by mouth every 4 hours as needed for Wheezing. 18 g 1 05/25/2022 Active Zoster Vac Recomb Adjuvanted 50 MCG/0.5ML Intramuscular Suspension Reconstituted (Shingrix)Indicatio ns:Need for shingles vaccine Inject 0.5 mL into a large muscle now and repeat dose in 60 to 180 days 1 Each 1 06/11/2022 Active Accu-Chek Guide In Vitro Strip (Glucose Blood)Indications:T ype 2 diabetes mellitus with stage 3b chronic kidney disease, with long-term current use of insulin ([facility]) Use to check sugars 4 times a day. 400 Strip 3 07/05/2022 Active Magnesium 400 MG Oral Tablet Take by mouth. 0 Active Fluconazole 200 MG Oral Tablet (Diflucan) Take 3 Tablets by mouth in the morning. 0 Active Furosemide 40 MG Oral Tablet Take 1 Tablet by mouth in the morning. 0 Active Pantoprazole Sodium 40 MG Oral Tablet Delayed Release (Protonix)Indicatio ns:Gastroesophageal reflux disease without esophagitis Take 1 Tablet by mouth in the morning. 90 Tablet 3 11/22/2022 Active Apixaban 2.5 MG Oral Tablet (Eliquis)Indication s:History of recurrent deep vein thrombosis (DVT) Take 1 Tablet by mouth in the morning and 1 Tablet before bedtime. 60 Tablet 1 01/11/2023 Active Citalopram Hydrobromide 40 MG Oral Tablet (CeleXA)Indications :Major depressive disorder with single episode, in partial remission ([facility]) Take 1 Tablet by mouth in the morning. 90 Tablet 1 01/11/2023 Active Polyethylene Glycol 3350 17 GM/SCOOP Oral PowderIndications:C onstipation, unspecified constipation type Take 17 g by mouth as needed for Constipation. Dissolve one heaping tablespoon in 8 ounces of water or juice. 17 g 0 01/11/2023 Active predniSONE 5 MG Oral Tablet (Deltasone)Indicati ons:Lung transplant status ([facility]) Take 1 Tablet by mouth in the morning. TAKING 5mg DAILY. 90 Tablet 3 01/19/2023 Active Comirnaty 30 MCG/0.3ML Intramuscular Suspension Inject 0.3 mL into a large muscle. 0.3 mL 0 03/07/2023 Active Insulin Glargine Solostar 100 UNIT/ML Subcutaneous Solution Pen-injector (Lantus SoloStar)Indication s:Type 2 diabetes mellitus with hemoglobin A1c goal of less than 7.0% ([facility]) Inject 15 Units under the skin at bedtime. 15 mL 2 03/31/2023 Active oxyCODONE HCl ER 15 MG Oral Tablet ER 12 Hour Abuse-Deterrent (oxyCONTIN) Take 1 Tablet by mouth in the morning and 1 Tablet before bedtime. 60 Tablet 0 04/29/2023 Active HYDROmorphone HCl 2 MG Oral Tablet (Dilaudid)Indicatio ns:Disc disorder of lumbar region Take 1 Tablet by mouth every 12 hours as needed for Pain, Severe. 60 Tablet 0 04/29/2023 Active oxyCODONE HCl ER 15 MG Oral Tablet ER 12 Hour Abuse-Deterrent (oxyCONTIN) Take 1 Tablet by mouth in the morning and 1 Tablet before bedtime. 60 Tablet 0 03/29/2023 3 Discontinu ed(Refill) HYDROmorphone HCl 2 MG Oral Tablet (Dilaudid)Indicatio ns:Disc disorder of lumbar region Take 1 Tablet by mouth every 12 hours as needed for Pain, Severe. 60 Tablet 0 04/01/2023 3 Discontinu ed(Refill) Hospital, Clinic, or Other Facility Administered Medication Ordered Dose Route Frequency Start Date End Date Status Tixagevimab inj 300 mgIndications:Lung transplant status (HCC) 300 mg IM [id number] 01/21/2022 Active Cilgavimab inj 300 mgIndications:Lung transplant status (HCC) 300 mg IM [id number] 01/21/2022 Active documented as of this encounter [...] Pain medication agreement 04/18/2012 Overview: Signed 04/18/12 Ucdxi-6-owrqeuhevfc deficiency 09/24/2010 Overview: Prolastin 60mg/kg started 06/07/11, weekly via [facility]. Zamaira given fall 2010 caused [...] HX- NONHODGKIN'S LYMPHOMA 07/21/2009 Overview: Sep 2008, [facility] [place], received 3 doses of chemo, remission COPD exacerbation 01/09/2009 12/16/2009 COPD, severity to be determined 01/09/2009 04/13/2011 Overview: 06/05/10: 4 LPM 24hrs/day. 07/26/09: Failed 2 step at [facility], 2 LPM 24 hr/day 07/15/09: Nocturnal pulse [...] 0 Overview: chronic back pain - sees [facility] Pain Management Other malignant lymphomas, u nspecified site, extranodal and solid organ sites 011 Overview: NHL- Sep 2008 at [facility] [place] Dr Caceres Major depressive disorder Overview: ICD-10 update of inactive term Other malignant lymphomas, u nspecified site, extranodal and solid organ sites 018 Overview: NHL- Sep 2008 at [facility] [place] Dr Caceres documented as of this encounter [...] encounter Miscellaneous Notes * Telephone Encounter - August Driver MD - 04/29/2023 8:15 AM ESTSigned Prescriptions: Disp Refills oxyCODONE HCl ER 15 MG Oral Tablet ER 12 H*60 Tab*0 Sig: Take 1 Tablet by mouth in the morning and 1 Tablet before bedtime. Authorizing Provider: AUGUST DRIVER HYDROmorphone HCl 2 MG Oral Tablet (Dilaud*60 Tab*0 Sig: Take 1 Tablet by mouth every 12 hours as needed for Pain, Severe. Authorizing Provider: AUGUST JAVIER * Telephone Encounter - August Driver MD - 04/28/2023 9:37 AM EST I have reviewed the patients controlled substance dispensing history in the Prescription Drug Monitoring Program in compliance with the [facility] regulations before prescribing a controlled substance. Last Tox Screen Results: Results for orders placed or performed in visit on 02/21/23 PAIN MANAGEMENT DRUG PANEL, URINE W/ INTERPRETATION Result Value Compliance Interpretation Based on the medication information provided and from [facility]: The presence of hydromorphone, oxycodone and oxymorphone is CONSISTENT with hydromorphone and oxycodone use. Amphetamines Screen, U Negative Benzodiazepines Screen, U Negative Cannabinoids Screen, U Negative Cocaine Metabolite Screen, U Negative Fentanyl Screen, U Negative Hydrocodone Screen, U Refer to confirmation results (A) Methadone Metabolite Screen, U Negative Morphine/Codeine Screen, U Refer to confirmation results (A) Oxycodone Screen, U Refer to confirmation results (A) Valid Interpretation Normal Creatinine, U 226 Narrative Cutoff Concentrations: Drug Level Amphetamines 500 ng/mL Benzodiazepines 100 ng/mL Cannabinoids 50 ng/mL Cocaine Metabolite 150 ng/mL Fentanyl 1 ng/mL Hydrocodone / Hydromorphone 300 ng/mL Methadone Metabolite 100 ng/mL Morphine / Codeine 300 ng/mL Oxycodone / Oxymorphone 100 ng/mL Screening results are presumptive and can only be used for medical purposes. Confirmatory testing is available upon request. Results for orders placed or performed in visit on 11/22/14 TOX SCREEN, URINE, W/ CONFIRMATION Result Value Amphetamine POSITIVE (A) Barbiturates NEGATIVE Benzodiazepines NEGATIVE Cannabinoids NEGATIVE Cocaine Metabolite NEGATIVE Morphine / Codeine POSITIVE (A) METHADONE METABOLITE REFER TO CONFIRMATION RESULT (A) OXYCODONE NEGATIVE TOX COMMENT THE ABOVE SCREENING RESULTS ARE PRESUMPTIVE AND CAN ONLY BE USED FOR MEDICAL PURPOSES. POSITIVE RESULTS REFLEX TO CONFIRMATORY TESTING. Cutoff Concentration *Note: Due to a large number of results and/or encounters for the requested time period, some results have not been displayed. A complete set of results can be found in Results Review. Due 04/29/23 * Telephone Encounter - Viri Vo [facility] - 04/28/2023 9:29 AM EST Pending Prescriptions: Disp Refills oxyCODONE HCl ER 15 MG Oral Tablet ER 12 H*60 Tab*0 Sig: Take 1Tablet by mouth in the morning and 1 Tablet before bedtime. HYDROmorphone HCl 2 MG Oral Tablet (Dilaud*60 Tab*0 Sig: Take 1 Tablet by mouth every 12 hours as needed for Pain, Severe. documented in this encounter Plan of Treatment Upcoming Encounters Date Type Department Care Team (Late st Contact Info) Description 05/31/2023 2:00 PM EST Office Visit Pharmacy, [facility] [address] [facility] [place] [address] [facility] [address] [facility] [place] [address] 07/20/2023 2:00 PM EDT Office Visit Neurology [facility] [address] [address] Alva Contreras PA-C [address] [address] 07/26/2023 2:40 PM EDT Office Visit General Internal Medicine [facility] [address] [address] August Driver MD [address] [address] Scheduled Procedures Name Priority Associated Diagnoses Date/Ti [...] Additional history exists CKD PHOS USE SMARTSET 60412 11/16/202310/30, 11/08/2022, 05/10/2022, Additional history exists COLONOSCOPY-EVERY 5 YRS AGES 18-100 11/18/2023 11/17/2018 Depression Screening 01/12/2024 01/11/2023, 02/22/20 15 O2 ASSESSMENT COMPLETED IN PAST YEAR FOR COPD 03/15/2024 03/15/2023, 05/24/2014 (Course Completed) CKD HGB USE SMARTSET 51834 04/04/202404/04, 04/04/2023, 03/08/2023, Additional history exists Lipid [...] this encounter Medical Devices Implanted Type Area Perfume And Toilet Water Maker Device Identifier Shelf Expiration Date Model / Serial / Lot Lens Intraoc 21.5 - [id number] - [id number] Implanted:Qty: 1 on 06/10/2020 by Pietro Nuñez MD at OR [facility] Right: Eye [employer] 12/30/2024 [id number] / [id number] / [id number] Lens Intraoc 21.5 - [id number] - [id number] Implanted:Qty: 1 on 06/24/2020 by Pietro Nuñez MD at OR [facility] Left: Eye [employer]OM[employer] 01/29/2025 [id number] / [id number] / [id number] documented as of this encounter Visit Diagnoses Diagnosis Disc disorder of lumbar region Other and unspecified disc disorder of lumbar region documented in this encounter Care Teams Inverted Block Operator Relationship Specialty Start Date End Date August Driver MD [address] [facility] [place] [address] PCP - General Internal Medicine 12/13/11 documented as of this encounter
--- OUTSIDE RECORDS SUMMARY | 2023-05-24 01:53 | External Medical Summary | Summary of Care ---
Author Name Unknown Organization [facility] Address [address] [place] [address] Phone [phone] Care Team Providers Care Hotel Yardperson Name Role Phone August Esposito MD Primary Care Provider + Reason for Visit * Reason Onset Date Comments Test Results 04/06/2023 Unexpected or In determinate Result Encounter Details Date Type Department Care Team (Late st Contact Info) Description 04/06/2023 Telephone Radiology, [facility] [address] [place] [address] Vic Del Rio PA-C [address] [place] [address] Test Results (Unexpected or Indeterminate [...] 30 Tablet 12 12/02/2021 Active Litetouch Pen [place] 31G X 8 MM (Insulin Pen Needle)Indications:T ype 2 diabetes mellitus with hemoglobin A1c goal of less than 7.0% ([facility]) USE WITH INSULIN 3 TIMES A DAY WITH MEALS. 100 Each 5 01/07/2022 Active Insulin Lispro (1 Unit Dial) 100 UNIT/ML Subcutaneous Solution Pen-injector (Admelog)Indications :Type 2 diabetes mellitus with hemoglobin A1c goal of less than 7.0% ([facility]) Inject under the skin 8 Units three times a day with meals . Hold if meal will be missed 9 mL 2 02/04/2022 Active Accu-Chek Softclix LancetsIndications:T ype 2 diabetes mellitus with hemoglobin A1c goal of less than 7.0% ([facility]) Test one time daily. Dx: E11.9 100 Each 3 04/04/2022 Active Fluticasone Furoate-Vilanterol 100-25 MCG/ACT Inhalation Aerosol Powder Breath Activated (BREO ellipta)Indications: COPD, group C, by GOLD 2017 classification ([facility]) Inhale 1 Puff by mouth in the [...] disease, with long-term current use of insulin ([facility]) Use to check sugars 4 times a [...] disorder with single episode, in partial remission ([facility]) Take 1 Tablet by mouth in the morning. 90 Tablet 1 01/11/2023 Active Polyethylene Glycol 3350 17 GM/SCOOP Oral PowderIndications:Co nstipation, unspecified constipation type Take 17 g by mouth as needed for Constipation. Dissolve one heaping tablespoon in 8 ounces of water or juice. 17 g 0 01/11/2023 Active predniSONE 5 MG Oral Tablet (Deltasone)Indicatio ns:Lung transplant status ([facility]) Take 1 Tablet by mouth in the [...] Status Tixagevimab inj 300 mgIndications:Lung transplant status ([facility]) 300 mg IM [id number] 01/21/2022 Active Cilgavimab inj 300 mgIndications:Lung transplant status ([facility]) 300 mg IM [id number] 01/21/2022 Active documented as of this encounter [...] Pain medication agreement 04/18/2012 Overview: Signed 04/18/12 Cqiie-1-iungcecfsuq deficiency 09/24/2010 Overview: Prolastin 60mg/kg [facility] 06/07/11[facility] Zamaira given fall 2010 caused arthralgias. 08/28/10 [...] HX- NONHODGKIN'S LYMPHOMA 07/21/2009 Overview: Sep 2008, [facility], received 3 doses of chemo, remission COPD exacerbation 01/09/2009 12/16/2009 COPD, severity to be determined 01/09/2009 04/13/2011 Overview: 06/05/10: 4 LPM 24hrs/day. 07/26/09: Failed 2 step at [facility], 2 LPM 24 hr/day 07/15/09: [...] 0 Overview: chronic back pain - sees [facility] Pain Management Other malignant lymphomas, u nspecified site, extranodal and solid organ sites 011 Overview: NHL- Sep 2008 at [facility] Dr Caceres Major depressive disorder Overview: ICD-10 update of inactive term Other malignant lymphomas, u nspecified site, extranodal and solid organ sites 018 Overview: NHL- Sep 2008 at [facility] Dr Caceres documented as of this encounter [...] discovered an unexpected or indeterminate finding on Shagufta Gipsont ([id number]) and asksthat you review the following report. IMPRESSION 1. New focus of abnormal signal and irregular parenchymal enhancement in the right anterior-inferior frontal lobe. 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 MECHANICAL INSULATOR lymphoma would be another consideration. A late [...] Thank you, TIKI Robles Client Service Rep [facility] documented in this encounter Plan of Treatment Upcoming Encounters Date Type Department Care Team (Late st Contact Info) Description 05/31/2023 2:00 PM EST Office Visit Pharmacy, [facility] [address] [facility] [place] [address] [address] [facility] [address] [facility] [place] [address] 07/20/2023 2:00 PM EDT Office Visit Neurology [facility] [address] [facility] [place] [address] Alva Contreras PA-C [address] [facility] [place] [address] 07/26/2023 2:40 PM EDT Office Visit General Internal Medicine [facility] [address] [facility] [place] [address] August Esposito MD [address] [facility] [place] [address] Scheduled Procedures Name Priority Associated Diagnoses Date/Ti [...] Additional history exists CKD PHOS USE SMARTSET 49582 11/16/202310/30, 11/08/2022, 05/10/2022, Additional history exists COLONOSCOPY-EVERY 5 YRS AGES 18-100 11/18/2023 11/17/2018 Depression Screening 01/12/2024 01/11/2023, 02/22/20 15 O2 ASSESSMENT COMPLETED IN PAST YEAR FOR COPD 03/15/2024 03/15/2023, 05/24/2014 (Course Completed) CKD HGB USE SMARTSET 33746 04/04/202404/04, 04/04/2023, 03/08/2023, Additional history exists Lipid [...] this encounter Medical Devices Implanted Type Area Venue Attendant Device Identifier Shelf Expiration Date Model / Serial / Lot Lens Intraoc 21.5 - [id number] - [id number] Implanted:Qty: 1 on 06/10/2020 by Pietro Nuñez MD at OR [facility] Right: Eye [employer]USCH [employer] LOMB 12/30/2024 [id number] / [id number] / [id number] Lens Intraoc 21.5 - [id number] - [id number] Implanted:Qty: 1 on 06/24/2020 by Pietro Nuñez MD at OR [facility] Left: Eye BAUSCH [employer] LOMB 01/29/2025 [id number] / [id number] / [id number] documented as of this encounter Care Teams Hotel Yardperson Relationship Specialty Start Date End Date August Esposito MD [address] [facility] [address] PCP - General Internal Medicine 12/13/11 documented as of this encounter
--- OUTSIDE RECORDS SUMMARY | 2023-05-24 01:53 | External Medical Summary | Summary of Care ---
Author Name Unknown Organization [facility] Address [address] [place] [address] Phone [phone] Care Team Providers Care Lightout Examiner Name Role Phone August Esposito MD Primary Care Provider + Reason for Visit * Reason Onset Date Comments Test Results 04/06/2023 Unexpected or In determinate Result Encounter Details Date Type Department Care Team (Late st Contact Info) Description 04/06/2023 Telephone Radiology, [facility] [address] [place] [address] Vic Del Rio PA-C [address] [place] [address] Test Results (Unexpected or Indeterminate [...] 30 Tablet 12 12/02/2021 Active Litetouch Pen [place] 31G X 8 MM (Insulin Pen Needle)Indications:T ype 2 diabetes mellitus with hemoglobin A1c goal of less than 7.0% ([facility]) USE WITH INSULIN 3 TIMES A DAY WITH MEALS. 100 Each 5 01/07/2022 Active Insulin Lispro (1 Unit Dial) 100 UNIT/ML Subcutaneous Solution Pen-injector (Admelog)Indications :Type 2 diabetes mellitus with hemoglobin A1c goal of less than 7.0% ([facility]) Inject under the skin 8 Units three times a day with meals . Hold if meal will be missed 9 mL 2 02/04/2022 Active Accu-Chek Softclix LancetsIndications:T ype 2 diabetes mellitus with hemoglobin A1c goal of less than 7.0% ([facility]) Test one time daily. Dx: E11.9 100 Each 3 04/04/2022 Active Fluticasone Furoate-Vilanterol 100-25 MCG/ACT Inhalation Aerosol Powder Breath Activated (BREO ellipta)Indications: COPD, group C, by GOLD 2017 classification ([facility]) Inhale 1 Puff by mouth in [...] disease, with long-term current use of insulin ([facility]) Use to check sugars 4 times [...] disorder with single episode, in partial remission ([facility]) Take 1 Tablet by mouth in the morning. 90 Tablet 1 01/11/2023 Active Polyethylene Glycol 3350 17 GM/SCOOP Oral PowderIndications:Co nstipation, unspecified constipation type Take 17 g by mouth as needed for Constipation. Dissolve one heaping tablespoon in 8 ounces of water or juice. 17 g 0 01/11/2023 Active predniSONE 5 MG Oral Tablet (Deltasone)Indicatio ns:Lung transplant status ([facility]) Take 1 Tablet by mouth in [...] Status Tixagevimab inj 300 mgIndications:Lung transplant status ([facility]) 300 mg IM [id number] 01/21/2022 Active Cilgavimab inj 300 mgIndications:Lung transplant status ([facility]) 300 mg IM [id number] 01/21/2022 Active documented as of this encounter [...] Pain medication agreement 04/18/2012 Overview: Signed 04/18/12 Xeuyn-3-tecjujjvamb deficiency 09/24/2010 Overview: Prolastin 60mg/kg started 06/07/11, [facility] Zamaira given fall 2010 caused arthralgias. [...] HX- NONHODGKIN'S LYMPHOMA 07/21/2009 Overview: Sep 2008, [facility] 3 doses of chemo, remission COPD exacerbation 01/09/2009 12/16/2009 COPD, severity to be determined 01/09/2009 04/13/2011 Overview: 06/05/10: 4 LPM 24hrs/day. 07/26/09: Failed 2 step at [facility], 2 LPM 24 hr/day 07/15/09: Nocturnal pulse [...] Overview: chronic back pain - sees [facility] Pain Management Other malignant lymphomas, u nspecified site, extranodal and solid organ sites 011 Overview: NHL- Sep 2008 at [facility] [place] Caceres Major depressive disorder Overview: ICD-10 update of inactive term Other malignant lymphomas, u nspecified site, extranodal and solid organ sites 018 Overview: NHL- Sep 2008 at [facility] [place] Caceres documented as of this encounter [...] saying that he is taking record to [facility] for a doctor appoint - who is doctor ?neurosurgery ? If no keep appoint as scheduled * Telephone Encounter - Slim Cantu CMA - 04/07/2023 1:37 PM EST Patient's is aware and verbalized understanding, states mindy is scheduled with [facility] neurology in June, does she need sooner [...] unexpected or indeterminate finding on Mindy Lanier ([id number]) and asksthat you review the following report. IMPRESSION 1. New focus of abnormal signal and irregular parenchymal enhancement in the right anterior-inferior frontal lobe. 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 E D TECH lymphoma would be another consideration. A late [...] Thank you, TIKI Robles Client Service Rep [facility] documented in this encounter Plan of Treatment Upcoming Encounters Date Type Department Care Team (Late st Contact Info) Description 05/31/2023 2:00 PM EST Office Visit Pharmacy, [facility] [address] [facility] [place] [address] [facility] [address] [facility] [place] [address] 07/20/2023 2:00 PM EDT Office Visit Neurology [facility] [address] [address] Alva Contreras PA-C [address] [address] 07/26/2023 2:40 PM EDT Office Visit General Internal Medicine [facility] [address] [address] August Esposito MD [address] [address] Scheduled Procedures Name Priority Associated Diagnoses Date/Ti [...] Additional history exists CKD PHOS USE SMARTSET 77456 11/16/202310/30, 11/08/2022, 05/10/2022, Additional history exists COLONOSCOPY-EVERY 5 YRS AGES 18-100 11/18/2023 11/17/2018 Depression Screening 01/12/2024 01/11/2023, 02/22/20 15 O2 ASSESSMENT COMPLETED IN PAST YEAR FOR COPD 03/15/2024 03/15/2023, 05/24/2014 (Course Completed) CKD HGB USE SMARTSET 74904 04/04/202404/04, 04/04/2023, 03/08/2023, Additional history exists Lipid [...] this encounter Medical Devices Implanted Type Area Chief Clerk Device Identifier Shelf Expiration Date Model / Serial / Lot Lens Intraoc 21.5 - [id number] - [id number] Implanted:Qty: 1 on 06/10/2020 by Pietro Nuñez MD at OR [facility] Right: Eye BAUSCH [employer] LOMB 12/30/2024 [id number] / [id number] / [id number] Lens Intraoc 21.5 - [id number] - [id number] Implanted:Qty: 1 on 06/24/2020 by Pietro Nuñez MD at OR [facility] Left: Eye BAUSCH & LOMB 01/29/2025 [id number] / [id number] / [id number] documented as of this encounter Care Teams Lightout Examiner Relationship Specialty Start Date End Date August Esposito MD [address] [facility] [place], [place] [address] PCP - General Internal Medicine 12/13/11 documented as of this encounter
--- OUTSIDE RECORDS SUMMARY | 2023-05-24 01:53 | External Medical Summary | Summary of Care ---
Author Name Unknown Organization [facility] Address [address] [place] [address] Phone [phone] Care Team Providers Care Watch Train Inspector Name Role Phone August Esposito MD Primary Care Provider + Reason for Visit * Reason Onset Date Comments Test Results 04/06/2023 Unexpected or In determinate Result Encounter Details Date Type Department Care Team (Late st Contact Info) Description 04/06/2023 Telephone Radiology, [facility] [address] [place] [address] Vic Del Rio PA-C [address] [place] [address] Test Results (Unexpected or Indeterminate [...] 30 Tablet 12 12/02/2021 Active Litetouch Pen [place] 31G X 8 MM (Insulin Pen Needle)Indications:T ype 2 diabetes mellitus with hemoglobin A1c goal of less than 7.0% ([facility]) USE WITH INSULIN 3 TIMES A DAY WITH MEALS. 100 Each 5 01/07/2022 Active Insulin Lispro (1 Unit Dial) 100 UNIT/ML Subcutaneous Solution Pen-injector (Admelog)Indications :Type 2 diabetes mellitus with hemoglobin A1c goal of less than 7.0% ([facility]) Inject under the skin 8 Units three times a day with meals . Hold if meal will be missed 9 mL 2 02/04/2022 Active Accu-Chek Softclix LancetsIndications:T ype 2 diabetes mellitus with hemoglobin A1c goal of less than 7.0% ([facility]) Test one time daily. Dx: E11.9 100 Each 3 04/04/2022 Active Fluticasone Furoate-Vilanterol 100-25 MCG/ACT Inhalation Aerosol Powder Breath Activated (BREO ellipta)Indications: COPD, group C, by GOLD 2017 classification ([facility]) Inhale 1 Puff by mouth in [...] disease, with long-term current use of insulin ([facility]) Use to check sugars 4 times [...] disorder with single episode, in partial remission ([facility]) Take 1 Tablet by mouth in the morning. 90 Tablet 1 01/11/2023 Active Polyethylene Glycol 3350 17 GM/SCOOP Oral PowderIndications:Co nstipation, unspecified constipation type Take 17 g by mouth as needed for Constipation. Dissolve one heaping tablespoon in 8 ounces of water or juice. 17 g 0 01/11/2023 Active predniSONE 5 MG Oral Tablet (Deltasone)Indicatio ns:Lung transplant status ([facility]) Take 1 Tablet by mouth in [...] Status Tixagevimab inj 300 mgIndications:Lung transplant status ([facility]) 300 mg IM [id number] 01/21/2022 Active Cilgavimab inj 300 mgIndications:Lung transplant status ([facility]) 300 mg IM [id number] 01/21/2022 Active documented as of this encounter [...] Pain medication agreement 04/18/2012 Overview: Signed 04/18/12 Huavo-0-risetuuegzr deficiency 09/24/2010 Overview: Prolastin 60mg/kg [facility] 06/07/11[facility] Zamaira given fall 2010 caused arthralgias. [...] HX- NONHODGKIN'S LYMPHOMA 07/21/2009 Overview: Sep 2008, [facility] received 3 doses of chemo, remission COPD exacerbation 01/09/2009 12/16/2009 COPD, severity to be determined 01/09/2009 04/13/2011 Overview: 06/05/10: 4 LPM 24hrs/day. 07/26/09: Failed 2 step at [facility], 2 LPM 24 hr/day 07/15/09: [...] 0 Overview: chronic back pain - sees [facility] Pain Management Other malignant lymphomas, u nspecified site, extranodal and solid organ sites 011 Overview: NHL- Sep 2008 at [facility] Dr Caceres Major depressive disorder Overview: ICD-10 update of inactive term Other malignant lymphomas, u nspecified site, extranodal and solid organ sites 018 Overview: NHL- Sep 2008 at [facility] Dr Caceres documented as of this encounter [...] saying that he is taking record to [facility] for a doctor appoint - who is doctor ?neurosurgery ? If no keep appoint as scheduled * Telephone Encounter - Slim Cantu CMA - 04/07/2023 1:37 PM EST Patient's is aware and verbalized understanding, states mindy is scheduled with [facility] neurology in June, does she [...] an unexpected or indeterminate finding on Mindy Ashu Lanier ([id number]) and asksthat you review the following report. IMPRESSION 1. New focus of abnormal signal and irregular parenchymal enhancement in the right anterior-inferior frontal lobe. 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 A late [...] Thank you, TIKI Robles Client Service Rep [facility] documented in this encounter Plan of Treatment Upcoming Encounters Date Type Department Care Team (Late st Contact Info) Description 05/31/2023 2:00 PM EST Office Visit Pharmacy, [facility] [address] [facility] [place] [address] [facility] [address] [facility] [place] [address] 07/20/2023 2:00 PM EDT Office Visit Neurology [address] [place] [address] Alva Contreras PA-C [address] [place] [address] [place] [address] 07/26/2023 2:40 PM EDT Office Visit General Internal Medicine [facility] [address] [facility] [place] [address] August Esposito MD [address] [facility] [place] [address] Scheduled Procedures Name Priority Associated Diagnoses Date/Ti [...] of 2) 09/16/2022 07/22/2022 COVID-19 Vaccine ( - season) 2022 04/21/2022, 01/24/2021, 07/03/2020, Additional history exists Albumin/Creatinine Ratio 06/16/2023 023, 09/11/2019, 12/06/2018, Additional history exists HbA1c 06/16/2023 12/14/2022, 10/30, 06/16/2022, Additional history exists Diabetic Foot Exam 07/06/2023 07/05/2022, 0 06/10/2021, 07/10/2020, Additional history exists GFR 10/04/2023 04/04/2023, 10/2022, 02/21/2023, Additional history exists CKD PHOS USE SMARTSET 44156 11/16/202310/30, 11/08/2022, 05/10/2022, Additional history exists COLONOSCOPY-EVERY 5 YRS AGES 18-100 11/18/2023 11/17/2018 Depression Screening 01/12/2024 01/11/2023, 02/22/20 15 O2 ASSESSMENT COMPLETED IN PAST YEAR FOR COPD 03/15/2024 03/15/2023, 05/24/2014 (Course Completed) CKD HGB USE SMARTSET 26104 04/04/202404/04, 04/04/2023, 03/08/2023, Additional history exists Lipid [...] this encounter Medical Devices Implanted Type Area Commercial Account Manager Device Identifier Shelf Expiration Date Model / Serial / Lot Lens Intraoc 21.5 - [id number] - [id number] Implanted:Qty: 1 on 06/10/2020 by Pietro Nuñez MD at OR [facility] Right: Eye BAUSCH [employer] LOMB 12/30/2024 [id number] / [id number] / [id number] Lens Intraoc 21.5 - [id number] - [id number] Implanted:Qty: 1 on 06/24/2020 by Pietro Nuñez MD at OR [facility] Left: Eye BAUSCH & LOMB 01/29/2025 [id number] / [id number] / [id number] documented as of this encounter Care Teams Watch Train Inspector Relationship Specialty Start Date End Date August Esposito MD [address] [place] [address] PCP - General Internal Medicine 12/13/11 documented as of this encounter
--- OUTSIDE RECORDS SUMMARY | 2023-05-24 01:53 | External Medical Summary | Summary of Care ---
Author Name Unknown Organization [facility] Address [address] [place] [address] Phone [phone] Care Team Providers Care Nuclear Plant Technical Advisor Name Role Phone August Esposito MD Primary Care Provider + Reason for Visit * Reason Onset Date Comments Test Results 04/06/2023 Unexpected or In determinate Result Encounter Details Date Type Department Care Team (Late st Contact Info) Description 04/06/2023 Telephone Radiology, [facility] [address] [place] [address] Vic Del Rio PA-C [address] [place] [address] Test Results (Unexpected or Indeterminate [...] 30 Tablet 12 12/02/2021 Active Litetouch Pen [place] 31G X 8 MM (Insulin Pen Needle)Indications:T ype 2 diabetes mellitus with hemoglobin A1c goal of less than 7.0% ([facility]) USE WITH INSULIN 3 TIMES A DAY WITH MEALS. 100 Each 5 01/07/2022 Active Insulin Lispro (1 Unit Dial) 100 UNIT/ML Subcutaneous Solution Pen-injector (Admelog)Indications :Type 2 diabetes mellitus with hemoglobin A1c goal of less than 7.0% ([facility]) Inject under the skin 8 Units three times a day with meals . Hold if meal will be missed 9 mL 2 02/04/2022 Active Accu-Chek Softclix LancetsIndications:T ype 2 diabetes mellitus with hemoglobin A1c goal of less than 7.0% ([facility]) Test one time daily. Dx: E11.9 100 Each 3 04/04/2022 Active Fluticasone Furoate-Vilanterol 100-25 MCG/ACT Inhalation Aerosol Powder Breath Activated (BREO ellipta)Indications: COPD, group C, by GOLD 2017 classification ([facility]) Inhale 1 Puff by mouth in the [...] with long-term current use of insulin ([facility]) Use to check sugars 4 times a [...] with single episode, in partial remission ([facility]) Take 1 Tablet by mouth in the morning. 90 Tablet 1 01/11/2023 Active Polyethylene Glycol 3350 17 GM/SCOOP Oral PowderIndications:Co nstipation, unspecified constipation type Take 17 g by mouth as needed for Constipation. Dissolve one heaping tablespoon in 8 ounces of water or juice. 17 g 0 01/11/2023 Active predniSONE 5 MG Oral Tablet (Deltasone)Indicatio ns:Lung transplant status ([facility]) Take 1 Tablet by mouth in the [...] Status Tixagevimab inj 300 mgIndications:Lung transplant status ([facility]) 300 mg IM [id number] 01/21/2022 Active Cilgavimab inj 300 mgIndications:Lung transplant status ([facility]) 300 mg IM [id number] 01/21/2022 Active documented as of this encounter [...] Pain medication agreement 04/18/2012 Overview: Signed 04/18/12 Eqiul-6-cbjxbspnljf deficiency 09/24/2010 Overview: Prolastin 60mg/kg [facility] 06/07/11[facility] 2010 caused arthralgias. [...] HX- NONHODGKIN'S LYMPHOMA 07/21/2009 Overview: Sep 2008, [facility] [place] 3 doses of chemo, remission COPD [...] sites 011 Overview: NHL- Sep 2008 at [facility] [place] Dr Caceres Major depressive disorder Overview: ICD-10 update of inactive term Other malignant lymphomas, u nspecified site, extranodal and solid organ sites 018 Overview: NHL- Sep 2008 at [facility] [place] Caceres documented as of this encounter [...] or indeterminate finding on Mindy A Yolande ([id number]) and asksthat you review the following report. IMPRESSION 1. New focus of abnormal signal and irregular parenchymal enhancement in the right anterior-inferior frontal lobe. 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 A late [...] Thank you, TIKI Robles Client Service Rep [facility] documented in this encounter Plan of Treatment Upcoming Encounters Date Type Department Care Team (Late st Contact Info) Description 05/31/2023 2:00 PM EST Office Visit Pharmacy, [facility] [address] [facility] [place] [address] [facility] [address] [facility] [place] [address] 07/20/2023 2:00 PM EDT Office Visit Neurology [facility] [address] [facility] [place] [address] Alva Contreras PA-C [address] [facility] [place] [address] 07/26/2023 2:40 PM EDT Office Visit General Internal Medicine [facility] [address] [facility] [place] [address] August Esposito MD [address] [facility] [place] [address] Scheduled Procedures Name Priority Associated Diagnoses Date/Ti [...] Additional history exists CKD PHOS USE SMARTSET 78379 11/16/202310/30, 11/08/2022, 05/10/2022, Additional history exists COLONOSCOPY-EVERY 5 YRS AGES 18-100 11/18/2023 11/17/2018 Depression Screening 01/12/2024 01/11/2023, 02/22/20 15 O2 ASSESSMENT COMPLETED IN PAST YEAR FOR COPD 03/15/2024 03/15/2023, 05/24/2014 (Course Completed) CKD HGB USE SMARTSET 95397 04/04/202404/04, 04/04/2023, 03/08/2023, Additional history exists Lipid [...] this encounter Medical Devices Implanted Type Area Service And Repair Supervisor Device Identifier Shelf Expiration Date Model / Serial / Lot Lens Intraoc 21.5 - [id number] - [id number] Implanted:Qty: 1 on 06/10/2020 by Pietro Nuñez MD at OR [facility] Right: Eye [employer] 12/30/2024 [id number] / [id number] / [id number] Lens Intraoc 21.5 - [id number] - [id number] Implanted:Qty: 1 on 06/24/2020 by Pietro Nuñez MD at OR [facility] Left: Eye [employer]OM[employer] 01/29/2025 [id number] / [id number] / [id number] documented as of this encounter Care Teams Nuclear Plant Technical Advisor Relationship Specialty Start Date End Date August Esposito MD [address] [place] [address] PCP - General Internal Medicine 12/13/11 documented as of this encounter
--- OUTSIDE RECORDS SUMMARY | 2023-05-24 01:54 | External Medical Summary ---
Author Name Unknown Address Unknown Organization K09:[facility] [place] [address] Laboratory Report Ordering Provider Test Date Status NATALIE JOHN 04/04/2023 12:40:50 Final Observation Date Value Abnormality Reference (Units ) Status SYNC LEUKOCYTES IN BLOOD BY AUTOMATED COUNT 04/04/2023 12:40:50 6.32 4.00-10.80 (K/uL) Final Segs 04/04/2023 12:40:50 76.7 Above high normal 40.0-75.0 (%) Final Lymphs % 04/04/2023 12:40:50 10.3 Below low normal 18.0-42.0 (%) Final Monos 04/04/2023 12:40:50 11.1 Above high normal 1.0-11.0 (%) Final Eosinophils 04/04/2023 12:40:50 1.4 0.0-6.0 (%) Final Basos 04/04/2023 12:40:50 0.5 0.0-2.0 (%) Final Absolute Segs 04/04/2023 12:40:50 4.85 1.80-7.70 (K/uL) Final Lymphs, absolute 04/04/2023 12:40:50 0.65 Below low normal 1.00-4.80 (K/ul) Final Monos, Abs 04/04/2023 12:40:50 0.70 0.00-1.10 (K/uL) Final Eos, Abs 04/04/2023 12:40:50 0.09 0.00-0.70 (K/uL) Final Basos, Abs 04/04/2023 12:40:50 0.03 0.00-0.20 (K/uL) Final Performing Location [facility] [place] [address]
--- OUTSIDE RECORDS SUMMARY | 2023-05-24 01:54 | External Medical Summary | Summary of Care ---
Author Name Unknown Organization [facility] Address [address] [place] [address] Phone [phone] Care Team Providers Care Retort Unloader Name Role Phone August Esposito MD Primary Care Provider + Reason for Visit * Reason Onset Date Comments Films 04/06/2023 Encounter Details Date Type Department Care Team (Late st Contact Info) Description 04/06/2023 Telephone Radiology [facility] [address] [place] [address] Vic Del Rio PA-C [address] [place] [address] Films Allergies Active Allergy Reactions Criticality Noted Date Comments Pollen 01/02/2020 Other reaction(s): Sneezing (finding) documented as of this encounter (statuses as of 04/06/2023) Medications Medication Sig Dispensed Refills Start Date [...] 30 Tablet 12 12/02/2021 Active Litetouch Pen [place] 31G X 8 MM (Insulin Pen Needle)Indications:T ype 2 diabetes mellitus with hemoglobin A1c goal of less than 7.0% ([facility]) USE WITH INSULIN 3 TIMES A [...] of less than 7.0% ([facility]) Test one time daily. Dx: E11.9 100 Each 3 04/04/2022 Active Fluticasone Furoate-Vilanterol 100-25 MCG/ACT Inhalation Aerosol Powder Breath Activated (BREO ellipta)Indications: COPD, group C, by GOLD 2017 classification ([facility]) Inhale 1 Puff by mouth in [...] current use of insulin ([facility]) Use to check sugars 4 times [...] disorder with single episode, in partial remission ([facility]) Take 1 Tablet by mouth in the morning. 90 Tablet 1 01/11/2023 Active Polyethylene Glycol 3350 17 GM/SCOOP Oral PowderIndications:Co nstipation, unspecified constipation type Take 17 g by mouth as needed for Constipation. Dissolve one heaping tablespoon in 8 ounces of water or juice. 17 g 0 01/11/2023 Active predniSONE 5 MG Oral Tablet (Deltasone)Indicatio ns:Lung transplant status ([facility]) Take 1 Tablet by mouth in [...] of less than 7.0% ([facility]) Inject 15 Units under the skin [...] 300 mgIndications:Lung transplant status ([facility]) 300 mg IM [id number] 01/21/2022 Active Cilgavimab inj 300 mgIndications:Lung transplant status ([facility]) 300 mg IM [id number] 01/21/2022 Active documented as of this encounter (statuses as of 04/06/2023) Active Problems Problem Noted Date Diagnosed Date [...] Pain medication agreement 04/18/2012 Overview: Signed 04/18/12 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 Zamaira [facility] 2010 caused arthralgias. 08/28/10 - <30 10/12/08 - MM allele 08/22/08 - 232 Proteinuria 10/08/2009 History of tobacco use 09/10/2009 Chronic rhinitis 09/10/2009 Esophageal reflux Disc disorder of lumbar region Overview: has had multiple surgeries - now w/ chronic back pain from postlaminectomy syndrome documented as of this encounter (statuses as of 04/06/2023) Resolved Problems Problem Noted Date Diagnosed Date [...] HX- NONHODGKIN'S LYMPHOMA 07/21/2009 Overview: Sep 2008, [facility] [place] [place], received 3 doses of chemo, remission COPD exacerbation 01/09/2009 12/16/2009 COPD, severity to be determined 01/09/2009 04/13/2011 Overview: 06/05/10: 4 LPM 24hrs/day. 07/26/09: Failed 2 step at [facility], 2 LPM 24 hr/day 07/15/09: [...] 0 Overview: chronic back pain - sees [facility] Pain Management Other malignant lymphomas, u nspecified site, extranodal and solid organ sites 011 Overview: NHL- Sep 2008 at [facility] [place] [place] Dr Caceres Major depressive disorder Overview: ICD-10 update of inactive term Other malignant lymphomas, u nspecified site, extranodal and solid organ sites 018 Overview: NHL- Sep 2008 at [facility] [place] [place] Dr Caceres documented as of this encounter (statuses as of 04/06/2023) Immunizations Name Administration Dates Next Due COVID-19 mRNA, LNP-s, No Pre serve, 2-Dose Series (Moderna) 01/24/2021,07/03/2020,05/31/2020 Covid-19, Mrna, Lnp-s, Pf, B ivalent, 30 Mcg, IM, 12 yrs and above (Virtual Computer) 04/21/2022 H1N1 2009 Influenza, IM 06/11/2009 Hepatitis [...] encounter Miscellaneous Notes * Telephone Encounter - Tonja Herzog OSA - 04/06/2023 11:04 AM EST Patient's spouse called in requesting for 04-05-23 MRI images and reports to go to [facility] for upcoming appointment Tuesday04-12-23 [place] Authorization to Release on file. Images pushed to [facility] All Send External PACs Connection Report(s) Cc'd to be faxed to [phone]. Successful fax confirmation received. documented in this encounter Plan of Treatment Upcoming Encounters Date Type Department Care Team (Late st Contact Info) Description 05/31/2023 2:00 PM EST Office Visit Pharmacy, [facility] [address] [facility] [place] [address] [facility] [address] [facility] [place] [address] 07/20/2023 2:00 PM EDT Office Visit Neurology [facility] [address] [place] [address] Alva Contreras PA-C [address] [facility] [place] [address] 07/26/2023 2:40 PM EDT Office Visit General Internal Medicine [facility] [address] [address] August Esposito MD [address] [facility] [place] [address] Scheduled Procedures Name Priority Associated Diagnoses Date/Ti [...] Additional history exists CKD PHOS USE SMARTSET 48802 11/16/202310/30, 11/08/2022, 05/10/2022, Additional history exists COLONOSCOPY-EVERY 5 YRS AGES 18-100 11/18/2023 11/17/2018 Depression Screening 01/12/2024 01/11/2023, 02/22/20 15 O2 ASSESSMENT COMPLETED IN PAST YEAR FOR COPD 03/15/2024 03/15/2023, 05/24/2014 (Course Completed) CKD HGB USE SMARTSET 18351 04/04/202404/04, 04/04/2023, 03/08/2023, Additional history exists Lipid Panel 01/19/2028 01/18/2023, 11/30, 06/16/2022, Additional history exists DTaP,Tdap,and Td Vaccines (3 - Td or Tdap) 07/22/2032 07/22/2022, 01/05/2012 Hepatitis B Completed 12/06/2018, 05/0 06/2018, 09/01/2018, Additional history exists Pneumococcal Vaccine: [...] this encounter Medical Devices Implanted Type Area Carton Catcher Device Identifier Shelf Expiration Date Model / Serial / Lot Lens Intraoc 21.5 - [id number] - [id number] Implanted:Qty: 1 on 06/10/2020 by Pietro Nuñez MD at OR [facility] Right: Eye [employer] 12/30/2024 [id number] / [id number] / [id number] Lens Intraoc 21.5 - [id number] - [id number] Implanted:Qty: 1 on 06/24/2020 by Pietro Nuñez MD at OR [facility] Left: Eye [employer]CH [employer] LOMB 01/29/2025 [id number] / [id number] / [id number] documented as of this encounter Care Teams Retort Unloader Relationship Specialty Start Date End Date August Esposito MD [address] [place] [address] PCP - General Internal Medicine 12/13/11 documented as of this encounter
--- OUTSIDE RECORDS SUMMARY | 2023-05-24 01:54 | External Medical Summary | Summary of Care ---
Author Name Unknown Organization [facility] Address [address] [place] [address] Phone [phone] Care Team Providers Care Police Magistrate Name Role Phone August Driver MD Primary Care Provider + Reason for Visit * Reason Onset Date Comments Medication Refill 04/06/2023 Encounter Details Date Type Department Care Team (Late st Contact Info) Description 03/29/2023 Refill Pharmacy, [facility] [address] [facility] [place] [address] Viri Vo, [facility] [address] [facility] [place] [address] Allergies Active Allergy Reactions Criticality Noted Date Comments Pollen 01/02/2020 Other reaction(s): Sneezing (finding) documented as of this encounter (statuses as of 04/06/2023) Medications Medication Sig Dispensed Refills Start Date End Date Status BD INSULIN SYR ULTRAFINE II 31G X 5/16" 0.5 ML MISCIndications:DM type 2, goal A1c below 7 USE FOR LANTUS INJECTIONS 1 Box 4 2 Active acetaminophen (TYLENOL) 325 MG Tablet Take 2 Tablets by mouth every 6 hours as needed for Pain. 0 0 Active sulfamethoxazole-t rimethoprim DS (BACTRIM DS) 800-160 MG per tablet Take 1 Tablet by mouth once a day Tuesday and only. 0 0 Active Potassium Chloride Mignon ER 20 MEQ Oral Tablet Extended Release Take 2 Tablets by mouth in the morning. 0 0 Active Everolimus 0.5 MG Oral Tablet (Zortress) Take 1 Tablet by mouth in the morning and 1 Tablet before bedtime. PM MWF. 0 1 Active Acyclovir 200 MG Oral Capsule (Zovirax) Take 1 Capsule by mouth in the morning and 1 Capsule before bedtime. M W F. 0 1 Active Insulin Lispro 100 UNIT/ML Injection Solution 0 1 Active Atorvastatin Calcium 20 MG Oral Tablet (Lipitor) 0 2 Active Azithromycin 250 MG Oral Tablet (Zithromax) Take 1 Tablet by mouth. M W F 0 2 Active Ferrous Sulfate 324 MG Oral Tablet Delayed Release Take by mouth 1 Tablet . 0 1 Active amLODIPine Besylate 5 MG Oral Tablet (Norvasc)Indicatio ns:Hypertension goal BP (blood pressure) < 140/90 Take by mouth 1 Tablet in the morning. 30 Tablet 12 2 Active Litetouch Pen Donner 31G X 8 MM (Insulin Pen Needle)Indications :Type 2 diabetes mellitus with hemoglobin A1c goal of less than 7.0% ([facility]) USE WITH INSULIN 3 TIMES A DAY WITH MEALS. 100 Each 5 2 Active Insulin Lispro (1 Unit Dial) 100 UNIT/ML Subcutaneous Solution Pen-injector (Admelog)Indicatio ns:Type 2 diabetes mellitus with hemoglobin A1c goal of less than 7.0% ([facility]) Inject under the skin 8 Units three times a day with meals . Hold if meal will be missed 9 mL 2 2 Active Accu-Chek Softclix LancetsIndications :Type 2 diabetes mellitus with hemoglobin A1c goal of less than 7.0% ([facility]) Test one time daily. Dx: E11.9 100 Each 3 2 Active Fluticasone Furoate-Vilanterol 100-25 MCG/ACT Inhalation Aerosol Powder Breath Activated (BREO ellipta)Indication s:COPD, group C, by GOLD 2017 classification ([facility]) Inhale 1 Puff by mouth in the morning. 60 Blister Dosing Unit 5 3 Active ProAir HFA 108 (90 Base) MCG/ACT Inhalation Aerosol SolutionIndication s:Lung infection,Acute cough Inhale 2 Puffs by mouth every 4 hours as needed for Wheezing. 18 g 1 3 Active Zoster Vac Recomb Adjuvanted 50 MCG/0.5ML Intramuscular Suspension Reconstituted (Shingrix)Indicati ons:Need for shingles vaccine Inject 0.5 mL into a large muscle now and repeat dose in 60 to 180 days 1 Each 1 3 Active Accu-Chek Guide In Vitro Strip (Glucose Blood)Indications: Type 2 diabetes mellitus with stage 3b chronic kidney disease, with long-term current use of insulin ([facility]) Use to check sugars 4 times a day. 400 Strip 3 3 Active Magnesium 400 MG Oral Tablet Take by mouth. 0 Active Fluconazole 200 MG Oral Tablet (Diflucan) Take 3 Tablets by mouth in the morning. 0 Active Furosemide 40 MG Oral Tablet Take 1 Tablet by mouth in the morning. 0 Active Pantoprazole Sodium 40 MG Oral Tablet Delayed Release (Protonix)Indicati ons:Gastroesophage al reflux disease without esophagitis Take 1 Tablet by mouth in the morning. 90 Tablet 3 3 Active Apixaban 2.5 MG Oral Tablet (Eliquis)Indicatio ns:History of recurrent deep vein thrombosis (DVT) Take 1 Tablet by mouth in the morning and 1 Tablet before bedtime. 60 Tablet 1 3 Active Citalopram Hydrobromide 40 MG Oral Tablet (CeleXA)Indication s:Major depressive disorder with single episode, in partial remission ([facility]) Take 1 Tablet by mouth in the morning. 90 Tablet 1 3 Active Polyethylene Glycol 3350 17 GM/SCOOP Oral PowderIndications: Constipation, unspecified constipation type Take 17 g by mouth as needed for Constipation. Dissolve one heaping tablespoon in 8 ounces of water or juice. 17 g 0 3 Active predniSONE 5 MG Oral Tablet (Deltasone)Indicat ions:Lung transplant status ([facility]) Take 1 Tablet by mouth in the morning. TAKING 5mg DAILY. 90 Tablet 3 3 Active Comirnaty 30 MCG/0.3ML Intramuscular Suspension Inject 0.3 mL into a large muscle. 0.3 mL 0 3 Active oxyCODONE HCl ER 15 MG Oral Tablet ER 12 Hour Abuse-Deterrent (oxyCONTIN) Take 1 Tablet by mouth in the morning and 1 Tablet before bedtime. 60 Tablet 0 3 Active Insulin Glargine Solostar 100 UNIT/ML Subcutaneous Solution Pen-injector (Lantus SoloStar)Indicatio ns:Type 2 diabetes mellitus with hemoglobin A1c goal of less than 7.0% ([facility]) Inject 15 Units under the skin at bedtime. 15 mL 0 3 03/31/20 23 Discontinued(Re fill) HYDROmorphone HCl 2 MG Oral Tablet (Dilaudid)Indicati ons:Disc disorder of lumbar region Take 1 Tablet by mouth every 12 hours as needed for Pain, Severe. 60 Tablet 0 3 03/31/20 23 Discontinued(Re fill) oxyCODONE HCl ER 10 MG Oral Tablet ER 12 Hour Abuse-Deterrent (oxyCONTIN)Indicat ions:Disc disorder of lumbar region Take 1 Tablet by mouth in the morning and 1 Tablet before bedtime. 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 Zamaira given fall 2010 caused arthralgias. 08/28/10 [...] HX- NONHODGKIN'S LYMPHOMA 07/21/2009 Overview: Sep [place] [facility] 3 doses of chemo, remission COPD exacerbation 01/09/2009 12/16/2009 COPD, severity to be determined 01/09/2009 04/13/2011 Overview: 06/05/10: 4 LPM 24hrs/day. 07/26/09: Failed 2 step at [facility], 2 LPM 24 hr/day 07/15/09: Nocturnal pulse [...] 0 Overview: chronic back pain - sees [facility] Pain Management Other malignant lymphomas, u nspecified site, extranodal and solid organ sites 011 Overview: NHL- Sep 2008 [place] [facility] [place]ace[place] Major depressive disorder Overview: ICD-10 update of inactive term Other malignant lymphomas, u nspecified site, extranodal and solid organ sites 018 Overview: NHL- Sep 2008 [place] [facility] [place] Cace[place] documented as of this encounter [...] Telephone Encounter - August Driver MD - 03/29/2023 8:26 AM ESTSigned Prescriptions: Disp Refills oxyCODONE HCl ER 15 MG Oral Tablet ER 12 H*60 Tab*0 Sig: Take 1 Tablet by mouth in the morning and 1 Tablet before bedtime. Authorizing Provider: AUGUST DRIVER * Telephone Encounter - August Driver MD - 03/29/2023 8:26 AM EST I have reviewed the patients controlled substance dispensing history in the Prescription Drug Monitoring Program in compliance with the [facility] regulations before prescribing a controlled substance. Last Tox Screen Results: Results for orders placed or performed in visit on 02/21/23 PAIN MANAGEMENT DRUG PANEL, URINE W/ INTERPRETATION Result Value Compliance Interpretation Based on the medication information provided and from [facility]: The presence of hydromorphone, oxycodone and oxymorphone is CONSISTENT with hydromorphone and oxycodone use. Amphetamine Negative Benzodiazepines Negative Cannabinoids Negative Cocaine Metabolite Negative Fentanyl Negative Hydrocodone / Hydromorphone Refer to confirmation results (A) Methadone Metabolite Negative Morphine / Codeine Refer to confirmation results (A) Oxycodone / Oxymorphone Refer to confirmation results (A) Valid Interpretation Normal Creatinine DEVORAH 226 Narrative Cutoff Concentrations: Drug Level Amphetamines [...] results can be found in Results Review. * Telephone Encounter - Viri Vo RPh - 03/29/2023 8:11 AM EST Hello, Patient is requesting to return to the higher dose of oxycodone due to lack of pain control. Prescription pended for your approval. Thank you, Viri Vo, Pharm D, BCACP Clinical Pharmacist 03/29/2023, 8:14 AM documented in this encounter Plan of Treatment Upcoming Encounters Date Type Department Care Team (Late st Contact Info) Description 05/31/2023 2:00 PM EST Office Visit Pharmacy, [facility] [address] [facility] [place] [address] [place] [address] 07/20/2023 2:00 PM EDT Office Visit Neurology [facility] [address] [facility] [place] [address] Alva Contreras PA-C [address] [facility] [place] [address] 07/26/2023 2:40 PM EDT Office Visit General Internal Medicine [facility] [place] [address] [facility] [place] [address] August Driver MD [address] [facility] [place] [address] Scheduled Procedures Name Priority Associated Diagnoses Date/Ti [...] 01/24/2021, 07/03/2020, Additional history exists Albumin/Creatinine Ratio 06/16/20232 023, 09/11/2019, 12/06/2018, Additional history exists HbA1c 06/16/2023 12/14/2022, 10/30, 06/16/2022, Additional history exists Diabetic Foot Exam 07/06/2023 07/05/2022, 0 06/10/2021, 07/10/2020, Additional history exists GFR 10/04/2023 04/04/2023, 1110/2022, 02/21/2023, Additional history exists CKD PHOS USE SMARTSET 35064 11/16/202310/30, 11/08/2022, 05/10/2022, Additional history exists COLONOSCOPY-EVERY 5 YRS AGES 18-100 11/18/2023 11/17/2018 Depression Screening 01/12/2024 01/11/2023, 02/22/20 15 O2 ASSESSMENT COMPLETED IN PAST YEAR FOR COPD 03/15/2024 03/15/2023, 05/24/2014 (Course Completed) CKD HGB USE SMARTSET 11322 04/04/202404/04, 04/04/2023, 03/08/2023, Additional history exists Lipid [...] this encounter Medical Devices Implanted Type Area Survey Worker Device Identifier Shelf Expiration Date Model / Serial / Lot Lens Intraoc 21.5 - [id number] - [id number] Implanted:Qty: 1 on 06/10/2020 by Pietro Nuñez MD at OR [facility] Right: Eye BAUSCH [employer] LOMB 12/30/2024 [id number] / [id number] / [id number] Lens Intraoc 21.5 - [id number] - [id number] Implanted:Qty: 1 on 06/24/2020 by Pietro Nuñez MD at OR [facility] Left: Eye BAUSCH & LOMB 01/29/2025 [id number] / [id number] / [id number] documented as of this encounter Care Teams Police Magistrate Relationship Specialty Start Date End Date August Driver MD [address] [place] [address], [place] [address] PCP - General Internal Medicine 12/13/11 documented as of this encounter
--- OUTSIDE RECORDS SUMMARY | 2023-05-24 01:54 | External Medical Summary ---
Author Name Unknown Address Unknown Organization K01:LABORATORY [facility] - [address] [place] [address] Laboratory Report Ordering Provider Test Date Status NATALIE JOHN 04/04/2023 12:40:50 Final Test performed by [facility] on [facility]. Therapeutic ranges vary with type of transplant, time post-transplant, clinical protocols, and testing methodology. Results should be interpreted with clinical presentation and any signs rejection/toxicity. Observation Date Value Abnormality Reference (Units ) Status Tacrolimus (FK506) 04/04/2023 12:40:50 4.7 4 .0-12.0 (ng/mL) Final Performing Location LAB[facility]ORY [facility] - [address] [place] [address]
--- OUTSIDE RECORDS SUMMARY | 2023-05-24 01:54 | External Medical Summary ---
Author Name Unknown Address Unknown Organization K01:LABORATORY [facility] - [address] [place] [address] Laboratory Report Ordering Provider Test Date Status DORANATALIE 04/04/2023 12:40:50 Final Observation Date Value Abnormality Reference (Units) Status Cytomegalovirus DNA [Presence] in Serum or Plasma by with probe detection 04/04/2023 12:40:50 CMV DNA not detected CMV DNA not detected Final Performing Location LAB[facility]ATORY [facility] - [address] [place] [address]
--- OUTSIDE RECORDS SUMMARY | 2023-05-24 01:54 | External Medical Summary ---
Author Name Unknown Address Unknown Organization : Laboratory Report Ordering Provider Test Date Status NATALIE JOHN 04/04/2023 12:40:50 Final Observation Date Value Abnormality Reference (Units ) Status Everolimus [Mass/volume] in Blood 04/04/2023 12:40:50 5.4 (ng/mL) Final Unable to flag abnormal result(s), please refer
to reference range(s) below:
Trough: 3.0 - 8.0 ng/mL for Transplantation
Trough: 5.0 - 10.0 ng/mL for Oncology/Neurology
Symptoms of toxicity are more likely to occur at
trough levels exceeding 12.0 ng/mL.
This test was developed and its analytical performance
characteristics have been determined by [facility] [place], [place]. It has
not been cleared or approved by the U.S. Food and Drug
Administration. This assay has been validated pursuant
to the CLIA regulations and is used for clinical
purposes.

Test Performed at:
[facility]
[address] [facility]
[place], [place]
Emory Amador M.D., Ph.D.,Director of Laboratories Performing Location
--- OUTSIDE RECORDS SUMMARY | 2023-05-24 01:54 | External Medical Summary | Summary of Care ---
Author Name Unknown Organization [facility] Address [address] [place] [address] Phone [phone] Care Team Providers Care Ball Truing Machine Operator Name Role Phone August Driver MD Primary Care Provider + Reason for Visit * Reason Onset Date Comments Medication Refill 03/31/2023 Encounter Details Date Type Department Care Team (Late st Contact Info) Description 03/31/2023 Refill General Internal Medicine [facility] [address] [facility] [address] August Driver MD [address] [place] [address] Type 2 diabetes mellitus with hemoglobin A1c goal of less than 7.0% ([facility]) Allergies Active Allergy Reactions Criticality Noted Date Comments Pollen 01/02/2020 Other reaction(s): Sneezing (finding) documented as of this encounter (statuses as of 03/31/2023) Medications Medication Sig Dispensed Refills Start Date [...] 30 Tablet 12 12/02/2021 Active Litetouch Pen [employer] 31G X 8 MM (Insulin Pen Needle)Indications: Type 2 diabetes mellitus with hemoglobin A1c goal of less than 7.0% ([facility]) USE WITH INSULIN 3 TIMES A DAY WITH MEALS. 100 Each 5 01/07/2022 Active Insulin Lispro (1 Unit Dial) 100 UNIT/ML Subcutaneous Solution Pen-injector (Admelog)Indication s:Type 2 diabetes mellitus with hemoglobin A1c goal of less than 7.0% ([facility]) Inject under the skin 8 Units three times a day with meals . Hold if meal will be missed 9 mL 2 02/04/2022 Active Accu-Chek Softclix LancetsIndications: Type 2 diabetes mellitus with hemoglobin A1c goal of less than 7.0% ([facility]) Test one time daily. Dx: E11.9 100 Each 3 04/04/2022 Active Fluticasone Furoate-Vilanterol 100-25 MCG/ACT Inhalation Aerosol Powder Breath Activated (BREO ellipta)Indications :COPD, group C, by GOLD 2017 classification ([facility]) Inhale 1 Puff by mouth in [...] disease, with long-term current use of insulin ([facility]) Use to check sugars 4 times [...] MG Oral Tablet (Deltasone)Indicati ons:Lung transplant status ([facility]) Take 1 Tablet by mouth in the morning. TAKING 5mg DAILY. 90 Tablet 3 01/19/2023 Active HYDROmorphone HCl 2 MG Oral Tablet (Dilaudid)Indicatio ns:Disc disorder of lumbar region Take 1 Tablet by mouth every 12 hours as needed for Pain, Severe. 60 Tablet 0 03/04/2023 Active Comirnaty 30 MCG/0.3ML Intramuscular Suspension Inject [...] at bedtime. 15 mL 2 03/31/2023 Active Insulin Glargine Solostar 100 UNIT/ML Subcutaneous Solution Pen-injector (Lantus SoloStar)Indication s:Type 2 diabetes mellitus with hemoglobin A1c goal of less than 7.0% ([facility]) Inject 15 Units under the skin at bedtime. 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 Zamaira given fall 2010 caused arthralgias. 08/28/10 - <30 10/12/08 - MM allele 08/22/08 - 232 Proteinuria 10/08/2009 History of tobacco use 09/10/2009 Chronic rhinitis 09/10/2009 Esophageal reflux Disc disorder of lumbar region Overview: has had multiple surgeries - now w/ chronic back pain from postlaminectomy syndrome documented as of this encounter (statuses as of 03/31/2023) Resolved Problems Problem Noted Date Diagnosed Date [...] HX- NONHODGKIN'S LYMPHOMA 07/21/2009 Overview: [place] [facility] 3 [place], remission COPD exacerbation 01/09/2009 12/16/2009 COPD, severity to be determined 01/09/2009 04/13/2011 Overview: 06/05/10: 4 LPM 24hrs/day. 07/26/09: Failed 2 step at [facility], 2 LPM 24 hr/day 07/15/09: Nocturnal pulse [...] 0 Overview: chronic back pain - sees [facility] Pain Management Other malignant lymphomas, u nspecified site, extranodal and solid organ sites 011 Overview: NHL- Sep 2008 at [facility] [place] Cace[place] Major depressive disorder Overview: ICD-10 update of inactive term Other malignant lymphomas, u nspecified site, extranodal and solid organ sites 018 Overview: NHL- Sep 2008 at [facility] [place] Cace[place] documented as of this encounter (statuses as of 03/31/2023) Immunizations Name Administration Dates Next Due COVID-19 [...] encounter Miscellaneous Notes * Telephone Encounter - Gail Marks RPh - 03/31/2023 11:31 AM ESTSigned Prescriptions: Disp Refills Insulin Glargine Solostar 100 UNIT/ML Subc*15 mL 2 Sig: Inject 15 Units under the skin at bedtime.Authorizing Provider: AUGUST DRIVER User: GAIL MARKS documented in this encounter Plan of Treatment Upcoming Encounters Date Type Department Care Team (Late st Contact Info) Description 05/31/2023 2:00 PM EST Office Visit Pharmacy, [facility] [place] [address] [place] [address] [facility] [address] [place] [address] 07/20/2023 2:00 PM EDT Office Visit Neurology [facility] [address] [address] Alva Contreras PA-C [address] [address] 07/26/2023 2:40 PM EDT Office Visit General Internal Medicine [facility] [place] [address] [place] [address] August Driver MD [address] [facility] [place] [address] Scheduled Procedures Name Priority Associated Diagnoses Date/Ti [...] 0 06/10/2021, 07/10/2020, Additional history exists GFR 09/06/2023 03/08/2023, 01/31, 01/31/2023, Additional history exists CKD PHOS USE SMARTSET 81307 11/16/202310/30, 11/08/2022, 05/10/2022, Additional history exists COLONOSCOPY-EVERY 5 YRS AGES 18-100 11/18/2023 11/17/2018 Depression Screening 01/12/2024 01/11/2023, 02/22/20 15 CKD HGB USE SMARTSET 05578 03/08/202403/08, 03/08/2023, 02/21/2023, Additional history exists O2 ASSESSMENT COMPLETED IN PAST YEAR FOR COPD 03/15/2024 03/15/2023, 05/24/2014 (Course Completed) Lipid Panel 01/19/2028 01/18/2023, 11/30, 06/16/2022, Additional [...] this encounter Medical Devices Implanted Type Area Gum Mixer Device Identifier Shelf Expiration Date Model / Serial / Lot Lens Intraoc 21.5 - [id number] - [id number] Implanted:Qty: 1 on 06/10/2020 by Pietro Nuñez MD at OR [facility] Right: Eye BAUSCH [employer] LOMB 12/30/2024 [id number] / [id number] / [id number] Lens Intraoc 21.5 - [id number] - [id number] Implanted:Qty: 1 on 06/24/2020 by Pietro Nuñez MD at OR [facility] Left: Eye BAUSCH & LOMB 01/29/2025 [id number] / [id number] / [id number] documented as of this encounter Visit Diagnoses Diagnosis Type 2 diabetes mellitus with hemoglobin A1c goal of less than 7.0% ([facility]) documented in this encounter Care Teams Ball Truing Machine Operator Relationship Specialty Start Date End Date August Driver MD [address] [place] [address], [place] [address] PCP - General Internal Medicine 12/13/11 documented as of this encounter
--- OUTSIDE RECORDS SUMMARY | 2023-05-24 01:54 | External Medical Summary | Summary of Care ---
Author Name Unknown Organization [facility] Address [address] [place] [address] Phone [phone] Care Team Providers Care Cemetery Worker Name Role Phone August Esposito MD Primary Care Provider + Reason for Visit * Precert (Within 10 days (routine)) - Authorized Specialty Diagnoses / Procedures Referred By Contac t Referred To Contact Radiology Diagnoses 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HCC) History of CVA in adulthood Abnormal finding on MRI of brain Procedures MRI BRAIN W WO CONTRAST MRI BRAIN WITH CONTRAST MRI BRAIN WITH CONTRAST Vic Del Rio PA-C [address] [place] [address] Referral ID Status Reason Start Date Expiration Date V isits Requested Visits Authorized [id number] Authorized Precert 03/21/2023 09/17/2023 [id number] Encounter Details Date Type Department Care Team (Latest Contact Info) Description 04/05/2023 2:52 PM EST - 04/05/2023 11:59 PM EST Hospital Encounter Radiology, [address] [address] Arrived Discharge Disposition: Home - Self Care Allergies Active Allergy Reactions Criticality Noted Date [...] 30 Tablet 12 12/02/2021 Active Litetouch Pen [place] 31G X 8 MM (Insulin Pen Needle)Indications:T ype 2 diabetes mellitus with hemoglobin A1c goal of less than 7.0% (HCC) USE WITH INSULIN 3 TIMES A DAY [...] goal of less than 7.0% ([facility]) Test one time daily. Dx: E11.9 100 Each 3 04/04/2022 Active Fluticasone Furoate-Vilanterol 100-25 MCG/ACT Inhalation Aerosol Powder Breath Activated (BREO ellipta)Indications: COPD, group C, by GOLD 2017 classification ([facility]) Inhale 1 Puff by mouth in [...] long-term current use of insulin ([facility]) Use to check sugars 4 times [...] single episode, in partial remission ([facility]) Take 1 Tablet by mouth in the morning. 90 Tablet 1 01/11/2023 Active Polyethylene Glycol 3350 17 GM/SCOOP Oral PowderIndications:Co nstipation, unspecified constipation type Take 17 g by mouth as needed for Constipation. Dissolve one heaping tablespoon in 8 ounces of water or juice. 17 g 0 01/11/2023 Active predniSONE 5 MG Oral Tablet (Deltasone)Indicatio ns:Lung transplant status ([facility]) Take 1 Tablet by mouth in [...] goal of less than 7.0% ([facility]) Inject 15 Units under the skin [...] inj 300 mgIndications:Lung transplant status ([facility]) 300 mg IM [id number] 01/21/2022 Active Cilgavimab inj 300 mgIndications:Lung transplant status ([facility]) 300 mg IM [id number] 01/21/2022 Active documented as of this encounter [...] Pain medication agreement 04/18/2012 Overview: Signed 04/18/12 Qgbnu-8-jpzchapsxze deficiency 09/24/2010 Overview: Prolastin 60mg/kg started 06/07/11, weekly via [facility]. Zamaira given fall 2010 caused arthralgias. 08/28/10 [...] LYMPHOMA 07/21/2009 Overview: Sep 2008, [facility], received 3 doses of chemo, remission COPD exacerbation 01/09/2009 12/16/2009 COPD, severity to be determined 01/09/2009 04/13/2011 Overview: 06/05/10: 4 LPM 24hrs/day. 07/26/09: Failed 2 step at [facility], 2 LPM 24 hr/day 07/15/09: Nocturnal [...] 0 Overview: chronic back pain - sees [facility] Pain Management Other malignant lymphomas, u nspecified site, extranodal and solid organ sites 011 Overview: NHL- Sep 2008 at [facility] Dr Caceres Major depressive disorder Overview: ICD-10 update of inactive term Other malignant lymphomas, u nspecified site, extranodal and solid organ sites 018 Overview: NHL- Sep 2008 at [facility] Dr Caceres documented [...] 05/31/2023 2:00 PM EST Office Visit Pharmacy, [facility] [address] [facility] [place] [address] [facility] [address] [facility] [place] [address] 07/20/2023 2:00 PM EDT Office Visit Neurology [facility] [address] [place] [address] Alva Contreras PA-C [address] [place] [address] [place] [address] 07/26/2023 2:40 PM EDT Office Visit General Internal Medicine [facility] [address] [place] [address] August Esposito MD 200 [facility] [place] [address] Pending Results Name Type Priority Associated Diagnoses Date /Time MRI BRAIN W WO CONTRAST Medical Imaging Routine 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HCC) History of CVA in adulthood Abnormal finding on MRI of brain 04/05/2023 3:50 PM EST Scheduled Procedures Name Priority Associated [...] 2) 09/16/2022 07/22/2022 COVID-19 Vaccine (5 - 2022- season) 2022 04/21/2022, 01/24/2021, 07/03/2020, Additional history exists Albumin/Creatinine Ratio 06/16/2023 023, 09/11/2019, 12/06/2018, Additional history exists HbA1c 06/16/2023 12/14/2022, 10/30, 06/16/2022, Additional history exists Diabetic Foot Exam 07/06/2023 07/05/2022, 0 06/10/2021, 07/10/2020, Additional history exists GFR 10/04/2023 04/04/2023, 10/2022, 02/21/2023, Additional history exists CKD PHOS USE SMARTSET 41549 11/16/202310/30, 11/08/2022, 05/10/2022, Additional history exists COLONOSCOPY-EVERY 5 YRS AGES 18-100 11/18/2023 11/17/2018 Depression Screening 01/12/2024 01/11/2023, 02/22/20 15 O2 ASSESSMENT COMPLETED IN PAST YEAR FOR COPD 03/15/2024 03/15/2023, 05/24/2014 (Course Completed) CKD HGB USE SMARTSET 00224 04/04/202404/04, 04/04/2023, 03/08/2023, Additional history exists Lipid Panel 01/19/2028 01/18/2023, 11/30, 06/16/2022, Additional history exists DTaP,Tdap,and Td Vaccines (3 - Td or Tdap) 07/22/2032 07/22/2022, 01/05/2012 Hepatitis B Completed 12/06/2018, 0 06/2018, 09/01/2018, Additional history exists Pneumococcal Vaccine: [...] this encounter Medical Devices Implanted Type Area Blood Bank Technician Device Identifier Shelf Expiration Date Model / Serial / Lot Lens Intraoc 21.5 - [id number] - [id number] Implanted:Qty: 1 on 06/10/2020 by Pietro uNñez MD at OR [facility] Right: Eye [employer] 12/30/2024 [id number] / [id number] / [id number] Lens Intraoc 21.5 - [id number] - [id number] Implanted:Qty: 1 on 06/24/2020 by Pietro Nuñez MD at OR [facility] Left: Eye [employer]OM[employer] 01/29/2025 [id number] / [id number] / [id number] documented as of this encounter Visit Diagnoses Diagnosis 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HCC) Cryptococcosis History of CVA in adulthood Abnormal finding on MRI of brain Nonspecific (abnormal) findings on radiological and other examination of skull and head documented in this encounter Administered Medications Inactive Administered Medications - up to 3 most recent administrations Medication Order MAR Action Action Date Dose Rate Site gadobutrol (Gadavist) inj 4.9 mL 4.9 mL (0.1 mL/kg 49 kg), Intravenous, ONCE, On Tue04/05/23 at 1552, For 1 dose, Radiology Medication Routing (Non-IR) Given 04/05/2023 3:52 PM EST 4.9 mL documented in this encounter Care Teams Cemetery Worker Relationship Specialty Start Date End Date August Esposito MD [address] [facility] [place] [address] PCP - General Internal Medicine 12/13/11 documented as of this encounter
--- OUTSIDE RECORDS SUMMARY | 2023-05-24 01:54 | External Medical Summary | Summary of Care ---
Author Name Unknown Organization [facility] Address [address] [place] [address] Phone [phone] Care Team Providers Care Stock Puller Name Role Phone August Esposito MD Primary Care Provider + Reason for Visit * Reason Onset Date Comments Test Results 04/06/2023 Unexpected or In determinate Result Encounter Details Date Type Department Care Team (Late st Contact Info) Description 04/06/2023 Telephone Radiology, [facility] [address] [place] [address] Vic Del Rio PA-C [address] [place] [address] Test Results (Unexpected or Indeterminate [...] 30 Tablet 12 12/02/2021 Active Litetouch Pen [place] 31G X 8 MM (Insulin Pen Needle)Indications:T [...] COPD, group C, by GOLD 2017 classification ([facility] [...] MG Oral Tablet (Deltasone)Indicatio ns:Lung transplant status ([facility] [place] 300 mg IM [id number] 01/21/2022 Active Cilgavimab inj 300 mgIndications:Lung transplant status ([facility]) 300 mg IM [id number] 01/21/2022 Active documented as of this encounter [...] Pain medication agreement 04/18/2012 Overview: Signed 04/18/12 Ssaaj-6-zrasayeqqvh deficiency 09/24/2010 Overview: [facility] 60[facility]/kg [facility]07[facility] given fall 2010 caused arthralgias. [...] HX- NONHODGKIN'S LYMPHOMA 07/21/2009 Overview: Sep 2008, [facility], received 3 doses of chemo, remission COPD exacerbation 01/09/2009 12/16/2009 COPD, severity to be determined 01/09/2009 04/13/2011 Overview: 06/05/10: 4 LPM 24hrs/day. 07/26/09: Failed 2 step at [facility], 2 LPM 24 hr/day 07/15/09: Nocturnal pulse [...] 0 Overview: chronic back pain - sees [facility] Pain Management Other malignant lymphomas, u nspecified site, extranodal and solid organ sites 011 Overview: NHL- Sep 2008 at [facility] Dr Caceres Major depressive disorder Overview: ICD-10 update of inactive term Other malignant lymphomas, u nspecified site, extranodal and solid organ sites 018 Overview: NHL- Sep 2008 at [facility] Dr Cacerse documented as of this encounter (statuses as [...] encounter Miscellaneous Notes * Telephone Encounter - Radha Burton OSA - 04/06/2023 2:35 PM EST Hello- The radiologist discovered an unexpected or indeterminate finding on Shagufta A Yolande ([id number]) and asksthat you review the following report. IMPRESSION 1. New focus of abnormal signal and irregular parenchymal enhancement in the right anterior-inferior frontal lobe. 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 SEWER PIPE CLEANER lymphoma would be another consideration. A late [...] Thank you, TIKI Robles Client Service Rep [facility] documented in this encounter Plan of Treatment Upcoming Encounters Date Type Department Care Team (Late st Contact Info) Description 05/31/2023 2:00 PM EST Office Visit Pharmacy, [facility] [address] [place] [address] [facility] [place] [address] [place] [address] 07/20/2023 2:00 PM EDT Office Visit Neurology [facility] [address] [facility] [place] [address] Alva Contreras PA-C [address] [place] [address] 07/26/2023 2:40 PM EDT Office Visit General Internal Medicine [employer] [address] [address] August Esposito MD 200 [facility] [place] [address] Scheduled Procedures Name Priority Associated Diagnoses Date/Ti [...] Additional history exists CKD PHOS USE SMARTSET 03420 11/16/202310/30, 11/08/2022, 05/10/2022, Additional history exists COLONOSCOPY-EVERY 5 YRS AGES 18-100 11/18/2023 11/17/2018 Depression Screening 01/12/2024 01/11/2023, 02/22/20 15 O2 ASSESSMENT COMPLETED IN PAST YEAR FOR COPD 03/15/2024 03/15/2023, 05/24/2014 (Course Completed) CKD HGB USE SMARTSET 26333 04/04/202404/04, 04/04/2023, 03/08/2023, Additional history exists Lipid [...] this encounter Medical Devices Implanted Type Area Sewer Pipe Cleaner Device Identifier Shelf Expiration Date Model / Serial / Lot Lens Intraoc 21.5 - [id number] - [id number] Implanted:Qty: 1 on 06/10/2020 by Pietro Nuñez MD at OR [facility] Right: Eye [employer] 12/30/2024 [id number] / [id number] / [id number] Lens Intraoc 21.5 - [id number] - [id number] Implanted:Qty: 1 on 06/24/2020 by Pietro Nuñez MD at OR [facility] Left: Eye [employer]OM[employer] 01/29/2025 [id number] / [id number] / [id number] documented as of this encounter Care Teams Stock Puller Relationship Specialty Start Date End Date August Esposito MD [address] [place] [address] PCP - General Internal Medicine 12/13/11 documented as of this encounter
--- OUTSIDE RECORDS SUMMARY | 2023-05-24 01:54 | External Medical Summary ---
Author Name Unknown Address Unknown Organization K09[facility] [place] [address] Laboratory Report Ordering Provider Test Date Status NATALIE JOHN 04/04/2023 12:40:50 Final Observation Date Value Abnormality Reference (Units ) Status BUN 04/04/2023 12:40:50 34 Above high normal 6-20 (mg/dL) Final Creatinine 04/04/2023 12:40:50 2.5 Above high normal 0.5-1.0 (mg/dL) Final Glomerular filtration rate/1.73 sq M.predicted [Volume Rate/Area] in Serum, Plasma or Blood by Creatinine-based formula (CKD-EPI) 04/04/2023 12:40:50 20 Below low normal >=60 (mL/min) Final eGFR is calculated based on the CKD-EPI 2020 equation SODIUM 04/04/2023 12:40:50 139 135-146 (m mol/L) Final Potassium 04/04/2023 12:40:50 4.7 3.5-5.1 (m mol/L) Final Cl 04/04/2023 12:40:50 104 98-107 (mm ol/L) Final CO2 04/04/2023 12:40:50 24 22-32 (mmo l/L) Final Anion gap 04/04/2023 12:40:50 11 7-15 (mmol /L) Final Glucose 04/04/2023 12:40:50 173 Above high normal 70 -120 (mg/dL) Final Calcium 04/04/2023 12:40:50 9.1 8.4-10.2 ( mg/dL) Final Performing Location [facility] [place] [address]
--- OUTSIDE RECORDS SUMMARY | 2023-05-24 01:54 | External Medical Summary ---
Author Name Unknown Address Unknown Organization [facility] [address] [place] [address] Laboratory Report Ordering Provider Test Date Status NATALIE JOHN 04/04/2023 12:40:50 Final Observation Date Value Abnormality Reference (Units ) Status WBC, Total 04/04/2023 12:40:50 6.32 4.00-10.8 0 (K/uL) Final RBC 04/04/2023 12:40:50 3.48 3.85-5.15 (M/uL) Final Hemoglobin 04/04/2023 12:40:50 10.3 Below low normal 12 .0-15.3 (g/dL) Final HCT 04/04/2023 12:40:50 32.2 Below low normal 36. 0-45.2 (%) Final MCV 04/04/2023 12:40:50 92.5 81.5-97.5 (fL) Final MCH 04/04/2023 12:40:50 29.6 27.0-34.0 (pg) Final MCHC 04/04/2023 12:40:50 32.0 32.0-36.0 (g/dL) Final RDW 04/04/2023 12:40:50 13.7 11.5-15.5 (%) Final Platelets 04/04/2023 12:40:50 140 140-400 (K /uL) Final MPV 04/04/2023 12:40:50 9.1 6.6-11.1 ( fL) Final Performing Location [facility] [place] [address]
--- OUTSIDE RECORDS SUMMARY | 2023-05-24 01:54 | External Medical Summary | Summary of Care ---
Author Name Unknown Organization [facility] Address [address] [place] [address] Phone [phone] Care Team Providers Care Net Developer Architect Name Role Phone August Esposito MD Primary Care Provider + Reason for Visit * Reason Comments Outpatient Testing Encounter Details Date Type Department Care Team (Latest Contact Info) Description 04/04/2023 12:30 PM EST Laboratory Laboratory Scenery [place] [address] [place] [phone] [place], Lab Scenery [address] [place] [address] Encounter for long-term (current) use of other medications; Hypomagnesemia; Status post lung transplantation (HCC); Meningitis, 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HCC) Allergies Active Allergy Reactions Criticality Noted Date Comments Pollen 01/02/2020 Other reaction(s): Sneezing (finding) documented as of this encounter (statuses as of 04/04/2023) Medications Medication Sig Dispensed Refills Start Date [...] 30 Tablet 12 12/02/2021 Active Litetouch Pen [place] 31G X 8 MM (Insulin Pen Needle)Indications:T ype 2 diabetes mellitus with hemoglobin A1c goal of less than 7.0% ([facility]) USE WITH INSULIN 3 TIMES A DAY WITH MEALS. 100 Each 5 01/07/2022 Active Insulin Lispro (1 Unit Dial) 100 UNIT/ML Subcutaneous Solution Pen-injector (Admelog)Indications :Type 2 diabetes mellitus with hemoglobin A1c goal of less than 7.0% ([facility]) Inject under the skin 8 Units three times a day with meals . Hold if meal will be missed 9 mL 2 02/04/2022 Active Accu-Chek Softclix LancetsIndications:T ype 2 diabetes mellitus with hemoglobin A1c goal of less than 7.0% ([facility]) Test one time daily. Dx: E11.9 100 Each 3 04/04/2022 Active Fluticasone Furoate-Vilanterol 100-25 MCG/ACT Inhalation Aerosol Powder Breath Activated (BREO ellipta)Indications: COPD, group C, by GOLD 2017 classification ([facility]) Inhale 1 Puff by mouth in the [...] long-term current use of insulin ([facility]) Use to check sugars 4 times a [...] Tablet (Deltasone)Indicatio ns:Lung transplant status ([facility]) Take 1 Tablet by mouth in the [...] inj 300 mgIndications:Lung transplant status ([facility]) 300 mg IM [id number] 01/21/2022 Active Cilgavimab inj 300 mgIndications:Lung transplant status ([facility]) 300 mg IM [id number] 01/21/2022 Active documented as of this encounter (statuses as of 04/04/2023) Active Problems Problem Noted Date Diagnosed Date [...] Pain medication agreement 04/18/2012 Overview: Signed 04/18/12 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 2010 caused arthralgias. 08/28/10 - <30 10/12/08 - MM allele 08/22/08 - 232 Proteinuria 10/08/2009 History of tobacco use 09/10/2009 Chronic rhinitis 09/10/2009 Esophageal reflux Disc disorder of lumbar region Overview: has had multiple surgeries - now w/ chronic back pain from postlaminectomy syndrome documented as of this encounter (statuses as of 04/04/2023) Resolved Problems Problem Noted Date Diagnosed Date [...] HX- NONHODGKIN'S LYMPHOMA 07/21/2009 Overview: Sep 2008, [facility] [place] 3 doses of chemo, remission COPD exacerbation 01/09/2009 12/16/2009 COPD, severity to be determined 01/09/2009 04/13/2011 Overview: 06/05/10: 4 LPM 24hrs/day. 07/26/09: Failed 2 step at [facility], 2 LPM 24 hr/day 07/15/09: Nocturnal [...] 0 Overview: chronic back pain - sees [facility] Pain Management Other malignant lymphomas, u nspecified site, extranodal and solid organ sites 011 Overview: NHL- Sep 2008 at [facility] [place] Caceres Major depressive disorder Overview: ICD-10 update of inactive term Other malignant lymphomas, u nspecified site, extranodal and solid organ sites 018 Overview: NHL- Sep 2008 at [facility] [place] Caceres documented as of this encounter (statuses as of 04/04/2023) Immunizations Name Administration Dates Next Due COVID-19 [...] Care Team (Late st Contact Info) Description 04/05/2023 3:30 PM EST Appointment Radiology, [address] [place] [address] 05/31/2023 2:00 PM EST Office Visit Pharmacy, [facility] [place] [address] [facility] [place] [address] [place], [facility] [address] [facility] [place] [address] 07/20/2023 2:00 PM EDT Office Visit Neurology [facility] [place] [address] [facility] [place] [address] Alva Contreras PA-C [address] [facility] [place] [address] 07/26/2023 2:40 PM EDT Office Visit General Internal Medicine [facility] [place] [address] [facility] [place] [address] August Esposito MD [address] [facility] [place] [address] Pending Results Name Type Priority Associated Diagnoses Date /Time BASIC METABOLIC PANEL Lab Routine Encounter for long-term (current) use of other medications Hypomagnesemia Status post lung transplantation (HCC) 04/04/2023 12:40 PM EST MAGNESIUM Lab Routine Encounter for long-term (current) use of other medications Hypomagnesemia Status post lung transplantation (HCC) 04/04/2023 12:40 PM EST TACROLIMUS LEVEL Lab Routine Encounter for long-term (current) use of other medications Hypomagnesemia Status post lung transplantation (HCC) 04/04/2023 12:40 PM EST EVEROLIMUS, LC/MS/MS, BLOOD Lab Routine Encounter for long-term (current) use of other medications Hypomagnesemia Status post lung transplantation (HCC) 04/04/2023 12:40 PM EST CYTOMEGALOVIRUS DNA, QUANTITATIVE REAL-TIME PCR Lab Routine Encounter for long-term (current) use of other medications Hypomagnesemia Status post lung transplantation (HCC) 04/04/2023 12:40 PM EST HEPATIC FUNCTION PANEL Lab Routine Meningitis, 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HCC) 04/04/2023 12:40 PM EST Scheduled Procedures Name Priority Associated [...] Additional history exists CKD PHOS USE SMARTSET 12503 11/16/202310/30, 11/08/2022, 05/10/2022, Additional history exists COLONOSCOPY-EVERY 5 YRS AGES 18-100 11/18/2023 11/17/2018 Depression Screening 01/12/2024 01/11/2023, 02/22/20 15 CKD HGB USE SMARTSET 29740 03/08/202404/04, 04/04/2023, 03/08/2023, Additional history exists O2 ASSESSMENT COMPLETED IN [...] this encounter Medical Devices Implanted Type Area Arc Trimmer Device Identifier Shelf Expiration Date Model / Serial / Lot Lens Intraoc 21.5 - [id number] - [id number] Implanted:Qty: 1 on 06/10/2020 by Pietro Nuñez MD at OR [facility] Right: Eye [employer] 12/30/2024 [id number] / [id number] / [id number] Lens Intraoc 21.5 - [id number] - [id number] Implanted:Qty: 1 on 06/24/2020 by Pietro Nuñez MD at OR [facility] Left: Eye [employer] 01/29/2025 [id number] / [id number] / [id number] documented as of this encounter Procedures Procedure Name Priority Date/Time Associated Diagnosis Comments DIFFERENTIAL, AUTOMATED Routine 04/04/2023 12:40 PM EST Encounter for long-term (current) use of other medications Hypomagnesemia Status post lung transplantation (HCC) CBC Routine 04/04/2023 12:40 PM EST Encounter for long-term (current) use of other medications Hypomagnesemia Status post lung transplantation (HCC) CBC Routine 04/04/2023 12:40 PM EST Encounter for long-term (current) use of other medications Hypomagnesemia Status post lung transplantation (HCC) documented in this encounter Results * (ABNORMAL) DIFFERENTIAL, AUTOMATED (04/04/2023 12:40 PM EST) WBC 6.32 4.00 - 10.80 K/uL 04/04/2023 12:49 PM EST [facility] 56-02 Neutrophils % 76.7(H) 40.0 - 75.0 % 04/04/2023 12:49 PM EST [facility] 56-02 Lymphocytes % 10.3(L) 18.0 - 42.0 % 04/04/2023 12:49 PM EST [facility] [place] 56-02 Monocytes % 11.1(H) 1.0 - 11.0 % 04/04/2023 12:49 PM EST [facility] [place] 56-02 Eosinophils % 1.4 0.0 - 6.0 % 04/04/2023 12:49 PM EST [facility] [place] 56-02 Basophils % 0.5 0.0 - 2.0 % 04/04/2023 12:49 PM EST [facility] 56-02 Absolute Neutrophils 4.85 1.80 - 7.70 K/uL 04/04/2023 12:49 PM EST [facility] [place] 56-02 Absolute Lymphocytes 0.65(L) 1.00 - 4.80 K/ul 04/04/2023 12:49 PM EST [facility] 56-02 Absolute Monocytes 0.70 0.00 - 1.10 K/uL 04/04/2023 12:49 PM EST [facility] [place] 56-02 Absolute Eosinophils 0.09 0.00 - 0.70 K/uL 04/04/2023 12:49 PM EST [facility] 56-02 Absolute Basophils 0.03 0.00 - 0.20 K/uL 04/04/2023 12:49 PM EST [facility] 56-02 Blood Venous blood specimen / Unknown Venipuncture / Unknown 04/04/2023 12:40 PM EST 04/04/2023 12:40 PM EST Katya Brand MD LAB BLOOD ORD ERABLES [facility] 56- [address] [place] [address] * (ABNORMAL) CBC (04/04/2023 12:40 PM EST) WBC 6.32 4.00 - 10.80 K/uL 04/04/2023 12:49 PM EST [place] [address] RBC 3.48 3.85 - 5.15 M/uL 04/04/2023 12:49 PM EST [place] [address] HGB 10.3(L) 12.0 - 15.3 g/dL 04/04/2023 12:49 PM EST [address] HCT 32.2(L) 36.0 - 45.2 % 04/04/2023 12:49 PM EST [address] MCV 92.5 81.5 - 97.5 fL 04/04/2023 12:49 PM EST [address] MCH 29.6 27.0 - 34.0 pg 04/04/2023 12:49 PM EST [facility] 5602 MCHC 32.0 32.0 - 36.0 g/dL 04/04/2023 12:49 PM EST [facility] 5602 RDW 13.7 11.5 - 15.5 % 04/04/2023 12:49 PM EST [facility] 56 PLT 140 140 - 400 K/uL 04/04/2023 12:49 PM EST [facility] 5602 MPV 9.1 6.6 - 11.1 fL 04/04/2023 12:49 PM EST [facility] 56-02 Blood Venous blood specimen / Unknown Venipuncture / Unknown 04/04/2023 12:40 PM EST 04/04/2023 12:40 PM EST Katya Brand MD LAB BLOOD ORD ERABLES [facility] [place] 56-02 [address] [facility] [place] [address] documented in this encounter Visit Diagnoses Diagnosis Encounter for long-term (current) use of other medications Hypomagnesemia 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
--- OUTSIDE RECORDS SUMMARY | 2023-05-24 01:54 | External Medical Summary | Summary of Care ---
Author Name Unknown Organization [facility] Address [address] [place] [address] Phone [phone] Care Team Providers Care [employer] English Teacher Name Role Phone August Esposito MD Primary Care Provider + Reason for Visit * Reason Comments Outpatient Testing Encounter Details Date Type Department Care Team (Latest Contact Info) Description 04/04/2023 12:30 PM EST Laboratory Laboratory Scenery [place] [address] [place] [phone] [place], Lab Scenery [address] [place] [address] Encounter for long-term (current) use of other [...] 30 Tablet 12 12/02/2021 Active Litetouch Pen [place] 31G X 8 MM (Insulin Pen Needle)Indications:T ype 2 diabetes mellitus with hemoglobin A1c goal of less than 7.0% ([facility]) USE WITH INSULIN 3 TIMES A DAY WITH MEALS. 100 Each 5 01/07/2022 Active Insulin Lispro (1 Unit Dial) 100 UNIT/ML Subcutaneous Solution Pen-injector (Admelog)Indications :Type 2 diabetes mellitus with hemoglobin A1c goal of less than 7.0% ([facility]) Inject under the skin 8 Units three times a day with meals . Hold if meal will be missed 9 mL 2 02/04/2022 Active Accu-Chek Softclix LancetsIndications:T ype 2 diabetes mellitus with hemoglobin A1c goal of less than 7.0% ([facility]) Test one time daily. Dx: E11.9 100 Each 3 04/04/2022 Active Fluticasone Furoate-Vilanterol 100-25 MCG/ACT Inhalation Aerosol Powder Breath Activated (BREO ellipta)Indications: COPD, group C, by GOLD 2017 classification ([facility]) Inhale 1 Puff by mouth [...] long-term current use of insulin ([facility]) Use to check sugars 4 [...] Tablet (Deltasone)Indicatio ns:Lung transplant status ([facility]) Take 1 Tablet by mouth [...] inj 300 mgIndications:Lung transplant status ([facility]) 300 mg IM [id number] 01/21/2022 Active Cilgavimab inj 300 mgIndications:Lung transplant status ([facility]) 300 mg IM [id number] 01/21/2022 Active documented as of this encounter [...] Pain medication agreement 04/18/2012 Overview: Signed 04/18/12 Mspsa-1-bpcmirachuh deficiency 09/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 2010 caused arthralgias. [...] HX- NONHODGKIN'S LYMPHOMA 07/21/2009 Overview: Sep 2008, [facility], received 3 doses of chemo, remission COPD exacerbation 01/09/2009 12/16/2009 COPD, severity to be determined 01/09/2009 04/13/2011 Overview: 06/05/10: 4 LPM 24hrs/day. 07/26/09: Failed 2 step at [facility], 2 LPM 24 hr/day 07/15/09: Nocturnal [...] Overview: chronic back pain - sees [facility] Pain Management Other malignant lymphomas, u nspecified site, extranodal and solid organ sites 011 Overview: NHL- Sep 2008 at [facility] Dr Caceres Major depressive disorder Overview: ICD-10 update of inactive term Other malignant lymphomas, u nspecified site, extranodal and solid organ sites 018 Overview: NHL- Sep 2008 at [facility] Dr Caceres documented as of this encounter [...] Description 04/05/2023 3:30 PM EST Appointment Radiology, [address] [place] [address] 05/31/2023 2:00 PM EST Office Visit Pharmacy, [facility] [place] [address] [facility] [place] [address] [place], [facility] [place] [address] [facility] [place] [address] 07/20/2023 2:00 PM EDT Office Visit Neurology [facility] [place] [address] [facility] [place] [address] Alva Contreras PA-C [address] [facility] [place] [address] 07/26/2023 2:40 PM EDT Office Visit General Internal Medicine [facility] [place] [address] [facility] [place] [address] August Esposito MD [address] [facility] [place] [address] Pending Results Name Type Priority Associated Diagnoses [...] HEPATIC FUNCTION PANEL Lab Routine Meningitis, 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[facility]) 04/04/2023 12:40 PM EST Scheduled Procedures Name [...] Additional history exists CKD PHOS USE SMARTSET 13102 11/16/202310/30, 11/08/2022, 05/10/2022, Additional history exists COLONOSCOPY-EVERY 5 YRS AGES 18-100 11/18/2023 11/17/2018 Depression Screening 01/12/2024 01/11/2023, 02/22/20 15 O2 ASSESSMENT COMPLETED IN PAST YEAR FOR COPD 03/15/2024 03/15/2023, 05/24/2014 (Course Completed) CKD HGB USE SMARTSET 32522 04/04/202404/04, 04/04/2023, 03/08/2023, Additional history exists Lipid [...] this encounter Medical Devices Implanted Type Area Thread Drawer Device Identifier Shelf Expiration Date Model / Serial / Lot Lens Intraoc 21.5 - [id number] - [id number] Implanted:Qty: 1 on 06/10/2020 by Pietro Nuñez MD at OR [facility] Right: Eye [employer] 12/30/2024 [id number] / [id number] / [id number] Lens Intraoc 21.5 - [id number] - [id number] Implanted:Qty: 1 on 06/24/2020 by Pietro Nuñez MD at OR [facility] Left: Eye BAUSCH [employer] LOMB 01/29/2025 [id number] / [id number] / [id number] documented as of this encounter Procedures Procedure [...] K/uL 04/04/2023 12:49 PM EST [facility] 56-02 Neutrophils % 76.7(H) 40.0 - 75.0 % 04/04/2023 12:49 PM EST [facility] 56-02 Lymphocytes % 10.3(L) 18.0 - 42.0 % 04/04/2023 12:49 PM EST [facility] 56-02 Monocytes % 11.1(H) 1.0 - 11.0 % 04/04/2023 12:49 PM EST [facility] [place] 56-02 Eosinophils % 1.4 0.0 - 6.0 % 04/04/2023 12:49 PM EST [facility] [place] 56-02 Basophils % 0.5 0.0 - 2.0 % 04/04/2023 12:49 PM EST [facility] 56-02 Absolute Neutrophils 4.85 1.80 [...] K/uL 04/04/2023 12:49 PM EST [facility] 56-02 Blood Venous blood specimen / Unknown Venipuncture / Unknown 04/04/2023 12:40 PM EST 04/04/2023 12:40 PM EST Katya Brand MD LAB BLOOD ORD ERABLES [facility] 56- [address] [place] [address] * (ABNORMAL) CBC (04/04/2023 12:40 PM EST) WBC 6.32 4.00 - 10.80 K/uL 04/04/2023 12:49 PM EST [place] [address] RBC 3.48 3.85 - 5.15 M/uL 04/04/2023 12:49 PM EST [place] [address] HGB 10.3(L) 12.0 - 15.3 g/dL 04/04/2023 12:49 PM EST [address] HCT 32.2(L) 36.0 - 45.2 % 04/04/2023 12:49 PM EST [address] MCV 92.5 81.5 - 97.5 fL 04/04/2023 12:49 PM EST [address] MCH 29.6 27.0 - 34.0 pg 04/04/2023 12:49 PM EST [facility] 5602 MCHC 32.0 32.0 - 36.0 g/dL 04/04/2023 12:49 PM EST [facility] 5602 RDW 13.7 11.5 - 15.5 % 04/04/2023 12:49 PM EST [facility] 56 PLT 140 140 - 400 K/uL 04/04/2023 12:49 PM EST [facility] 5602 MPV 9.1 6.6 - 11.1 fL 04/04/2023 12:49 PM EST [facility] 56-02 Blood Venous blood specimen / Unknown Venipuncture / Unknown 04/04/2023 12:40 PM EST 04/04/2023 12:40 PM EST Katya Brand MD LAB BLOOD ORD ERABLES [facility] [place] 56-02 [address] [facility] [place] [address] documented in this encounter Visit Diagnoses Diagnosis Encounter for long-term (current) use of other medications Hypomagnesemia 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
--- OUTSIDE RECORDS SUMMARY | 2023-05-24 01:54 | External Medical Summary ---
Author Name Unknown Address Unknown Organization K09:[facility] [place] [address] Laboratory Report Ordering Provider Test Date Status PAOLA CHOWDHURY 04/04/2023 12:40:50 Final Observation Date Value Abnormality Reference (Units ) Status Albumin 04/04/2023 12:40:50 3.8 3.8-5.0 (g/dL) Final AST (Aspartate aminotransferase) 04/04/2023 12:40:50 23 10-35 (U/L) Final Alk Phos 04/04/2023 12:40:50 76 35-130 (U/L) Final ALT (Alanine aminotransferase) 04/04/2023 12:40:50 13 10-35 (U/L) Final Bilirubin, Total 04/04/2023 12:40:50 0.2 <=1.2 (mg/dL) Final Bilirubin, Direct 04/04/2023 12:40:50 <0.2 0.0-0.3 (mg/dL) Final Protein 04/04/2023 12:40:50 6.3 6.0-8.3 (g/dL) Final Performing Location [facility] [place] [address]
--- OUTSIDE RECORDS SUMMARY | 2023-05-24 01:54 | External Medical Summary ---
Author Name Unknown Address Unknown Organization K09[facility] [place] [address] Laboratory Report Ordering Provider Test Date Status NATALIE JOHN 04/04/2023 12:40:50 Final Observation Date Value Abnormality Reference (Units ) Status Magnesium 04/04/2023 12:40:50 2.2 1.5-2.6 (m g/dL) Final Performing Location [facility] [place] [address]
--- OUTSIDE RECORDS SUMMARY | 2023-05-24 01:55 | External Medical Summary | Summary of Care ---
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 Vomiting Chills Encounter Details Date Type Department Care Team (Late st Contact Info) Description 03/15/2023 2:40 PM EST Office Visit General Internal Medicine [place] [address] [address] Vic Del Rio PA-C 200 [facility] [place] [address] Hypertension goal BP (blood pressure) < 140/90*; 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HCC); History of CVA in adulthood; Abnormal finding on MRI of brain; Serum reaction due to vaccination, initial encounter Allergies Active Allergy Reactions Criticality Noted Date Comments Pollen 01/02/2020 Other reaction(s): Sneezing (finding) documented as of this encounter (statuses as of 03/15/2023) Medications Medication Sig Dispensed Refills Start Date [...] 30 Tablet 12 12/02/2021 Active Litetouch Pen [place] 31G X 8 MM (Insulin Pen Needle)Indications:T ype 2 diabetes mellitus with hemoglobin A1c goal of less than 7.0% (HCC) USE WITH INSULIN 3 TIMES A DAY WITH MEALS. 100 Each 5 01/07/2022 Active Insulin Lispro (1 Unit Dial) 100 UNIT/ML Subcutaneous Solution Pen-injector (Admelog)Indications :Type 2 diabetes mellitus with hemoglobin A1c goal of less than 7.0% ([facility]) Inject under the skin 8 Units three times a day with meals . Hold if meal will be missed 9 mL 2 02/04/2022 Active Accu-Chek Softclix LancetsIndications:T ype 2 diabetes mellitus with hemoglobin A1c goal of less than 7.0% ([facility]) Test one time daily. Dx: E11.9 100 Each 3 04/04/2022 Active Insulin Glargine Solostar 100 UNIT/ML Subcutaneous Solution Pen-injector (Lantus SoloStar)Indications :Type 2 diabetes mellitus with hemoglobin A1c goal of less than 7.0% ([facility]) Inject 15 Units under the skin at bedtime. 15 mL 0 05/20/2022 Active Fluticasone Furoate-Vilanterol 100-25 MCG/ACT Inhalation Aerosol Powder Breath Activated (BREO ellipta)Indications: COPD, group C, by GOLD 2017 classification ([facility]) Inhale 1 Puff by mouth in the [...] long-term current use of insulin ([facility]) Use to check sugars 4 times a [...] Tablet (Deltasone)Indicatio ns:Lung transplant status ([facility]) Take 1 Tablet by mouth in the morning. TAKING 5mg DAILY. 90 Tablet 3 01/19/2023 Active HYDROmorphone HCl 2 MG Oral Tablet (Dilaudid)Indication s:Disc disorder of lumbar region Take 1 Tablet by mouth every 12 hours as needed for Pain, Severe. 60 Tablet 0 03/04/2023 Active oxyCODONE HCl ER 10 MG Oral Tablet ER 12 Hour Abuse-Deterrent (oxyCONTIN)Indicatio ns:Disc disorder of lumbar region Take 1 Tablet by mouth in the morning and 1 Tablet before bedtime. 60 Tablet 0 03/04/2023 Active Comirnaty 30 MCG/0.3ML Intramuscular Suspension Inject 0.3 mL into a large muscle. 0.3 mL 0 03/07/2023 Active Hospital, Clinic, or Other Facility Administered Medication Ordered Dose Route Frequency Start Date End Date Status Tixagevimab inj 300 mgIndications:Lung transplant status ([facility]) 300 mg IM [id number] 01/21/2022 Active Cilgavimab inj 300 mgIndications:Lung transplant status ([facility]) 300 mg IM [id number] 01/21/2022 Active documented as of this encounter (statuses as of 03/15/2023) Active Problems Problem Noted Date Diagnosed Date [...] Pain medication agreement 04/18/2012 Overview: Signed 04/18/12 Gtsry-5-kndndndkjfh deficiency 09/24/2010 Overview: Prolastin 60mg/kg [facility] 06/07/11[facility] Zamaira given fall 2010 caused arthralgias. 08/28/10 - <30 10/12/08 - MM allele 08/22/08 - 232 Proteinuria 10/08/2009 History of tobacco use 09/10/2009 Chronic rhinitis 09/10/2009 Esophageal reflux Disc disorder of lumbar region Overview: has had multiple surgeries - now w/ chronic back pain from postlaminectomy syndrome documented as of this encounter (statuses as of 03/15/2023) Resolved Problems Problem Noted Date Diagnosed Date [...] NONHODGKIN'S LYMPHOMA 07/21/2009 Overview: Sep 2008, [facility], received 3 doses of chemo, remission COPD exacerbation 01/09/2009 12/16/2009 COPD, severity to be determined 01/09/2009 04/13/2011 Overview: 06/05/10: 4 LPM 24hrs/day. 07/26/09: Failed 2 step at [facility], 2 LPM 24 hr/day [...] 0 Overview: chronic back pain - sees [facility] Pain Management Other malignant lymphomas, u nspecified site, extranodal and solid organ sites 011 Overview: NHL- Sep 2008 at [facility] [place] Dr Caceres Major depressive disorder Overview: ICD-10 update of inactive term Other malignant lymphomas, u nspecified site, extranodal and solid organ sites 018 Overview: NHL- Sep 2008 at [facility] [place] Dr Caceres documented as of this encounter (statuses as of 03/15/2023) Immunizations Name Administration Dates Next Due COVID-19 [...] on file documented as of this encounter Last Filed Vital Signs Vital Sign Reading Time Taken Comments Blood Pressure 170/78 03/15/2023 2:24 PM EST Pulse 90 03/15/2023 2:24 PM EST Temperature 37.2 C (98.9 F) 03/15/2023 2:24 PM ES T Respiratory Rate - - Oxygen Saturation 97% 03/15/2023 2:24 PM EST Inhaled Oxygen Concentration - - Weight 49 kg (108 lb) 03/15/2023 2:24 PM EST Height 157.5 cm (5' 2") 03/15/2023 2:24 PM EST Body Mass Index 19.75 03/15/2023 2:24 PM EST documented in this encounter Progress Notes * Vic Del Rio PA-C - 03/15/2023 2:26 PM EST Subjective: Shagufta Lanier is a 67 year old female. Chief Complaint Patient presents with Headache X's days, getting better. Vomiting Chills HPI: 67 y/o female with COPD secondary to alpha-1 antitrypsin deficiency s/p lung transplant, hx lymphoma, dementia, HTN, CKD III, DM II, depression, hx CVA seen today with complaint of headache, chills, vomiting episode that occurred 24 hours after getting COVID and RSV booster. Bad for 48 hours then symptoms have been improving and better today. Denies chest pain. Stable SOB. No neck stiffness, fever, chills. concerned given her previous hospitalization of meningitis. Has upcoming follow up with neurology. Had focus on right frontal lobe that could have been from infection, CVA, or neoplasm. Recommended MRI prior to appointment with him to follow. Needs order. PMH: Patient Active Problem List Diagnosis Code Esophageal reflux K21.9 Disc disorder of lumbar region M51.9 History of tobacco use Z87.891 Chronic rhinitis J31.0 Proteinuria R80.9 Hpmxp-5-yijcwbldisa deficiency ([facility]) E88.01 Pain medication agreement Z02.89 Type 2 diabetes mellitus with hemoglobin A1c goal of less than 7.0% ([facility]) E11.9 Hypoxemia R09.02 History of pulmonary embolism Z86.711 H/O lymphoma Z85.72 PFO (patent foramen ovale) Q21.12 COPD, group C, by GOLD 2017 classification ([facility]) J44.9 Lung transplant status ([facility]) Z94.2 Bradycardia R00.1 Hypertension goal BP (blood pressure) < 140/90 I10 Pulmonary HTN ([facility]) I27.20 Tracheal stenosis J39.8 Type 2 diabetes mellitus with stage 3b chronic kidney disease ([facility]) E11.22, N18.32 Benign hypertension with stage 3b chronic kidney disease ([facility]) I12.9, N18.32 Chronic kidney disease, stage 3b ([facility]) N18.32 Gastroparesis K31.84 History of DVT (deep vein thrombosis) Z86.718 Immunosuppressed status ([facility]) D84.9 Major depressive disorder with single episode, in partial remission ([facility]) F32.4 Type 2 diabetes mellitus with stage 3b chronic kidney disease, with long-term current use of insulin ([facility]) E11.22, N18.32, Z79.4 Mild dementia with mood disturbance ([facility]) F03.A3 Chronic bilateral back pain M54.9, G89.29 History of CVA in adulthood Z86.73 Current Outpatient Medications Medication Sig Dispense Refill BD INSULIN SYR ULTRAFINE II 31G X 5/16" 0.5 ML MISC USE FOR LANTUS INJECTIONS 1 Box 4 acetaminophen (TYLENOL) 325 MG Tablet Take 2 Tablets by mouth every 6 hours as needed for Pain. sulfamethoxazole-trimethoprim DS (BACTRIM DS) 800-160 MG per tablet Take 1 Tablet by mouth once a day Tuesday and only. Potassium Chloride Mignon ER 20 MEQ Oral Tablet Extended Release Take 2 Tablets by mouth in the morning. Everolimus 0.5 MG Oral Tablet (Zortress) Take 1 Tablet by mouth in the morning and 1 Tablet before bedtime. PM MWF. Acyclovir 200 MG Oral Capsule (Zovirax) Take 1 Capsule by mouth in the morning and 1 Capsule beforebedtime. M W F. Insulin Lispro 100 UNIT/ML Injection Solution Atorvastatin Calcium 20 MG Oral Tablet (Lipitor) Azithromycin 250 MG Oral Tablet (Zithromax) Take 1 Tablet by mouth. M W F Ferrous Sulfate 324 MG Oral Tablet Delayed Release Take by mouth 1 Tablet . amLODIPine Besylate 5 MG Oral Tablet (Norvasc) Take by mouth 1 Tablet in the morning. 30 Tablet 12 Litetouch Pen [place] 31G X 8 MM (Insulin Pen Needle) USE WITH INSULIN 3 TIMES A DAY WITH MEALS. 100 Each 5 Insulin Lispro (1 Unit Dial) 100 UNIT/ML Subcutaneous Solution Pen-injector (Admelog) Inject under the skin 8 Units three times a day with meals . Hold if meal will be missed 9 mL 2 Accu-Chek Softclix Lancets Test one time daily. Dx: E11.9 100 Each 3 Insulin Glargine Solostar 100 UNIT/ML Subcutaneous Solution Pen-injector (Lantus SoloStar) Inject 15 Units under the skin at bedtime. 15 mL 0 Fluticasone Furoate-Vilanterol 100-25 MCG/ACT Inhalation Aerosol Powder Breath Activated (BREO ellipta) Inhale 1 Puff by mouth in the morning. 60 Blister Dosing Unit 5 ProAir HFA 108 (90 Base) MCG/ACT Inhalation Aerosol Solution Inhale 2 Puffs by mouth every 4 hours as needed for Wheezing. 18 g 1 Zoster Vac Recomb Adjuvanted 50 MCG/0.5ML Intramuscular Suspension Reconstituted (Shingrix) Inject 0.5 mL into a large muscle now and repeat dose in 60 to 180 days 1 Each 1 Accu-Chek Guide In Vitro Strip (Glucose Blood) Use to check sugars 4 times a day. 400 Strip 3 Magnesium 400 MG Oral Tablet Take by mouth. Fluconazole 200 MG Oral Tablet (Diflucan) Take 3 Tablets by mouth in the morning. Furosemide 40 MG Oral Tablet Take 1 Tablet by mouth in the morning. Pantoprazole Sodium 40 MG Oral Tablet Delayed Release (Protonix) Take 1 Tablet by mouth in the morning. 90 Tablet 3 Apixaban 2.5 MG Oral Tablet (Eliquis) Take 1 Tablet by mouth in the morning and 1 Tablet before bedtime. 60 Tablet 1 Citalopram Hydrobromide 40 MG Oral Tablet (CeleXA) Take 1 Tablet by mouth in the morning. 90 Tablet1 Polyethylene Glycol 3350 17 GM/SCOOP Oral Powder Take 17 g by mouth as needed for Constipation. Dissolve one heaping tablespoon in 8 ounces of water or juice. 17 g 0 predniSONE 5 MG Oral Tablet (Deltasone) Take 1 Tablet by mouth in the morning. TAKING 5mg DAILY. 90Tablet 3 HYDROmorphone HCl 2 MG Oral Tablet (Dilaudid) Take 1 Tablet by mouth every 12 hours as needed for Pain, Severe. 60 Tablet 0 oxyCODONE HCl ER 10 MG Oral Tablet ER 12 Hour Abuse-Deterrent (oxyCONTIN) Take 1 Tablet by mouth inthe morning and 1 Tablet before bedtime. 60 Tablet 0 Comirnaty 30 MCG/0.3ML Intramuscular Suspension Inject 0.3 mL into a large muscle. 0.3 mL 0 Current Facility-Administered Medications Medication Dose Route Frequency Provider Last Rate Last Admin Tixagevimab inj 300 mg 300 mg Intramuscular Q6 Months Vic Del Rio PA-C Cilgavimab inj 300 mg 300 mg Intramuscular Q6 Months Vic Del Rio PA-C Review of patient's allergies indicates: Allergen Reactions Pollen Other reaction(s): Sneezing (finding) All other review of systems reviewed and negative other than mentioned in HPI. Objective: BP 170/78 | Pulse 90 | Temp 37.2 C (98.9 F) | Ht 1.575 m (5' 2") | Wt 49 kg (108 lb) | SpO2 97%| BMI 19.75 kg/m | BSA 1.46 m Results for orders placed or performed in visit on 03/08/23 BASIC METABOLIC PANEL Result Value Ref Range BUN 36 (H) 6 - 20 mg/dL Creatinine 2.8 (H) 0.5 - 1.0 mg/dL Estimated Glomerular Filtration Rate 18 (L) >=60 mL/min Sodium 141 135 - 146 mmol/L Potassium 5.1 3.5 - 5.1 mmol/L Chloride 106 98 - 107 mmol/L CO2 25 22 - 32 mmol/L Anion Gap 10 7 - 15 mmol/L Glucose 145 (H) 70 - 120 mg/dL Calcium 9.5 8.4 - 10.2 mg/dL MAGNESIUM Result Value Ref Range Magnesium 2.0 1.5 - 2.6 mg/dL TACROLIMUS LEVEL Result Value Ref Range Tacrolimus 6.8 4.0 - 12.0 ng/mL EVEROLIMUS, LC/MS/MS, BLOOD Result Value Ref Range EVEROLIMUS, BLOOD 7.8 ng/mL HEPATIC FUNCTION PANEL Result Value Ref Range Albumin 3.9 3.8 - 5.0 g/dL AST 26 10 - 35 U/L Alkaline Phosphatase 83 35 - 130 U/L ALT 11 10 - 35 U/L Bilirubin, Total 0.2 <=1.2 mg/dL Bilirubin, Direct <0.2 0.0 - 0.3 mg/dL Protein 6.3 6.0 - 8.3 g/dL CBC Result Value Ref Range WBC 6.72 4.00 - 10.80 K/uL RBC 3.62 3.85 - 5.15 M/uL HGB 10.6 (L) 12.0 - 15.3 g/dL HCT 32.9 (L) 36.0 - 45.2 % MCV 90.9 81.5 - 97.5 fL MCH 29.3 27.0 - 34.0 pg MCHC 32.2 32.0 - 36.0 g/dL RDW 14.3 11.5 - 15.5 % PLT 149 140 - 400 K/uL MPV 8.8 6.6 - 11.1 fL DIFFERENTIAL, AUTOMATED Result Value Ref Range WBC 6.72 4.00 - 10.80 K/uL Neutrophils % 84.4 (H) 40.0 - 75.0 % Lymphocytes % 7.3 (L) 18.0 - 42.0 % Monocytes % 7.0 1.0 - 11.0 % Eosinophils % 0.6 0.0 - 6.0 % Basophils % 0.7 0.0 - 2.0 % Absolute Neutrophils 5.67 1.80 - 7.70 K/uL Absolute Lymphocytes 0.49 (L) 1.00 - 4.80 K/ul Absolute Monocytes 0.47 0.00 - 1.10 K/uL Absolute Eosinophils 0.04 0.00 - 0.70 K/uL Absolute Basophils 0.05 0.00 - 0.20 K/uL CYTOMEGALOVIRUS DNA, QUANTITATIVE REAL-TIME PCR Result Value Ref Range CMV DNA Interpretation CMV DNA not detected CMV DNA not detected *Note: Due to a large number of results and/or encounters for the requested time period, some results have not been displayed. A complete set of results can be found in Results Review. Physical Exam Constitutional: General: She is not in acute distress. Appearance: Normal appearance. She is normal weight. She is not ill-appearing or toxic-appearing. HENT: Head: Normocephalic and atraumatic. Eyes: Extraocular Movements: Extraocular movements intact. Conjunctiva/sclera: Conjunctivae normal. Pupils: Pupils are equal, round, and reactive to light. Cardiovascular: Rate and Rhythm: Normal rate and regular rhythm. Heart sounds: Normal heart sounds. No murmur heard. No friction rub. No gallop. Pulmonary: Effort: Pulmonary effort is normal. Breath sounds: Normal breath sounds. No wheezing, rhonchi or rales. Abdominal: General: Bowel sounds are normal. There is no distension. Palpations: Abdomen is soft. There is no mass. Tenderness: There is no abdominal tenderness. There is no guarding or rebound. Musculoskeletal: Cervical back: Normal range of motion. No rigidity or tenderness. Lymphadenopathy: Cervical: No cervical adenopathy. Neurological: General: No focal deficit present. Mental Status: She is alert. Mental status is at baseline. Cranial Nerves: No cranial nerve deficit. ASSESSMENT: Hypertension goal BP (blood pressure) < 140/90 (Primary) Recheck at home. Seems to be anxious and slightly tearful at the moment. If still elevated, take another dose of Norvasc 5 mg. Will monitor throughout weeks and let me know if persistent. Weight is also down. Will check weight at home and monitor daily and report if any further weight loss in a week. 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HCC) - MRI BRAIN WITH CONTRAST; Future; Expected date: 03/15/2023 Do not have concern for recurrence at this time. Dicussed S&S. Agree not like her previous symptoms. MRI ordered to follow up on abnormality noted back in August related to infection/neoplasm/CVA. History of CVA in adulthood - MRI BRAIN WITH CONTRAST; Future; Expected date: 03/15/2023 Abnormal finding on MRI of brain - MRI BRAIN WITH CONTRAST; Future; Expected date: 03/15/2023 Serum reaction due to vaccination, initial encounter Discussed immune reaction from vaccine. Symptoms improving. Believe most likely to this. Monitor for any regression. Follow Up: Return if symptoms worsen or fail to improve. Vic Del Rio PA-C documented in this encounter Nursing Notes * Ebonie Calvillo LPN - 03/15/2023 2:24 PM EST Chief Complaint Patient presents with Headache X's days, getting better. Vomiting Chills documented in this encounter Plan of Treatment Upcoming Encounters Date Type Department Care Team (Late st Contact Info) Description 05/31/2023 2:00 PM EST Office Visit Pharmacy, [facility] [address] [facility] [place] [address] [facility] [address] [facility] [place] [address] 07/20/2023 2:00 PM EDT Office Visit Neurology [facility] [address] [facility] [place] [address] Alva Contreras PA-C 200 [facility] [place] [place] [address] 07/26/2023 2:40 PM EDT Office Visit General Internal Medicine [facility] [place] [address] [address] August Esposito MD 200 [facility] [place] [address] Scheduled Orders Name Type Priority Associated Diagnoses Orde r Schedule MRI BRAIN WITH CONTRAST Medical Imaging Routine 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HCC) History of CVA in adulthood Abnormal finding on MRI of brain Expected: 03/15/2023 (Approximate), Expires: 04/14/2024 Scheduled Procedures Name Priority Associated Diagnoses Date/Ti [...] Additional history exists CKD PHOS USE SMARTSET 93006 11/16/202310/30, 11/08/2022, 05/10/2022, Additional history exists COLONOSCOPY-EVERY 5 YRS AGES 18-100 11/18/2023 11/17/2018 Depression Screening 01/12/2024 01/11/2023, 02/22/20 15 O2 ASSESSMENT COMPLETED IN PAST YEAR FOR COPD 01/12/2024 01/11/2023, 05/24/2014 (Course Completed) CKD HGB USE SMARTSET 31027 03/08/202403/08, 03/08/2023, 02/21/2023, Additional history exists Lipid Panel 01/19/2028 01/18/2023, [...] this encounter Medical Devices Implanted Type Area Critical Care Paramedic Device Identifier Shelf Expiration Date Model / Serial / Lot Lens Intraoc 21.5 - [id number] - [id number] Implanted:Qty: 1 on 06/10/2020 by Pietro Nuñez MD at OR [facility] Right: Eye [employer] 12/30/2024 [id number] / [id number] / [id number] Lens Intraoc 21.5 - [id number] - [id number] Implanted:Qty: 1 on 06/24/2020 by Pietro Nuñez MD at OR [facility] Left: Eye [employer] 01/29/2025 [id number] / [id number] / [id number] documented as of this encounter Visit Diagnoses Diagnosis Hypertension goal BP (blood pressure) < 140/90- Primary Unspecified essential hypertension 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HCC) Cryptococcosis History of CVA in adulthood Abnormal finding on MRI of brain Nonspecific (abnormal) findings on radiological and other examination of skull and head Serum reaction due to vaccination, initial encounter documented in this encounter Care Teams Melt Down Furnace Operator Relationship Specialty Start Date End Date August Esposito MD [address] [place] [address], [place] [id number] PCP - General Internal Medicine 12/13/11 documented as of this encounter
--- OUTSIDE RECORDS SUMMARY | 2023-05-24 01:55 | External Medical Summary | Summary of Care ---
Author Name Unknown Organization [facility] Address [address] [place] [address] Phone [phone] Care Team Providers Care Metal Box Maker Name Role Phone August Esposito MD Primary Care Provider + Reason for Visit * Reason Comments Outpatient Testing Encounter Details Date Type Department Care Team (Latest Contact Info) Description 03/08/2023 1:10 PM EST Laboratory Laboratory Scenery [place] [address] [place] [phone] [place], Lab Scenery [address] [place] [address] Encounter for long-term (current) use of other medications; Hypomagnesemia; Status post lung transplantation (HCC); Meningitis, 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HCC) Allergies Active Allergy Reactions Criticality Noted Date Comments Pollen 01/02/2020 Other reaction(s): Sneezing (finding) documented as of this encounter (statuses as of 03/09/2023) Medications Medication Sig Dispensed Refills Start Date [...] 30 Tablet 12 12/02/2021 Active Litetouch Pen [place] 31G X 8 MM (Insulin Pen Needle)Indications:T [...] A1c goal of less than 7.0% (HCC) Test one time daily. Dx: E11.9 100 [...] COPD, group C, by GOLD 2017 classification ([facility]) Inhale 1 Puff by mouth [...] disease, with long-term current use of insulin ([facility]) Use to check sugars 4 [...] disorder with single episode, in partial remission ([facility]) Take 1 Tablet by mouth in the morning. 90 Tablet 1 01/11/2023 Active Polyethylene Glycol 3350 17 GM/SCOOP Oral PowderIndications:Co nstipation, unspecified constipation type Take 17 g by mouth as needed for Constipation. Dissolve one heaping tablespoon in 8 ounces of water or juice. 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 fall 2010 caused arthralgias. 08/28/10 - <30 10/12/08 - MM allele 08/22/08 - 232 Proteinuria 10/08/2009 History of tobacco use 09/10/2009 Chronic rhinitis 09/10/2009 Esophageal reflux Disc disorder of lumbar region Overview: has had multiple surgeries - now w/ chronic back pain from postlaminectomy syndrome documented as of this encounter (statuses as of 03/09/2023) Resolved Problems Problem Noted Date Diagnosed Date [...] HX- NONHODGKIN'S LYMPHOMA 07/21/2009 Overview: Sep 2008, [facility], received 3 doses of chemo, remission COPD [...] sites 011 Overview: NHL- Sep 2008 at [facility] Dr Caceres Major depressive disorder Overview: ICD-10 update of inactive term Other malignant lymphomas, u nspecified site, extranodal and solid organ sites 018 Overview: NHL- Sep 2008 at [facility] Dr Caceres documented as of this encounter (statuses as of 03/09/2023) Immunizations Name Administration Dates Next Due COVID-19 [...] as of this encounter Miscellaneous Notes * Addendum Note - Dharmesh Vaughan TECH - 03/09/2023 7:57 AM ESTAddended by: DHARMESH VAUGHAN on: 03/09/2023 07:57 AM Modules accepted: Orders documented in this encounter Plan of Treatment Upcoming Encounters Date Type Department Care Team (Late st Contact Info) Description 05/31/2023 2:00 PM EST Office Visit Pharmacy, [facility] [address] [facility] [place] [address] [facility] [address] [facility] [place] [address] 07/20/2023 2:00 PM EDT Office Visit Neurology [facility] [address] [place] [address] Alva Contreras PA-C 200 [facility] [place] [address] 07/26/2023 2:40 PM EDT Office Visit General Internal Medicine [facility] [address] [place] [phone] August Esposito MD 200 [facility] [place] [address] Pending Results Name Type Priority Associated Diagnoses Date /Time TACROLIMUS LEVEL Lab Routine Encounter for long-term (current) use of other medications Hypomagnesemia Status post lung transplantation (HCC) 03/08/2023 1:14 PM EST EVEROLIMUS, LC/MS/MS, BLOOD Lab Routine Encounter for long-term (current) use of other medications Hypomagnesemia Status post lung transplantation (HCC) 03/08/2023 1:14 PM EST CYTOMEGALOVIRUS DNA, QUANTITATIVE REAL-TIME PCR Lab Routine Encounter for long-term (current) use of other medications Hypomagnesemia Status post lung transplantation (HCC) Meningitis, 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HCC) 03/08/2023 1:09 PM EST Scheduled Procedures Name Priority Associated [...] Additional history exists CKD PHOS USE SMARTSET 88402 11/16/202310/30, 11/08/2022, 05/10/2022, Additional history exists COLONOSCOPY-EVERY 5 YRS AGES 18-100 11/18/2023 11/17/2018 Depression Screening 01/12/2024 01/11/2023, 02/22/20 15 O2 ASSESSMENT COMPLETED IN PAST YEAR FOR COPD 01/12/2024 01/11/2023, 05/24/2014 (Course Completed) CKD HGB USE SMARTSET 75999 03/08/202403/08, 03/08/2023, 02/21/2023, Additional history exists Lipid [...] this encounter Medical Devices Implanted Type Area Mri Manager Device Identifier Shelf Expiration Date Model / Serial / Lot Lens Intraoc 21.5 - [id number] - [id number] Implanted:Qty: 1 on 06/10/2020 by Pietro Nuñez MD at OR [facility] Right: Eye [employer] 12/30/2024 [id number] / [id number] / [id number] Lens Intraoc 21.5 - [id number] - [id number] Implanted:Qty: 1 on 06/24/2020 by Pietro Nuñez MD at OR [facility] Left: Eye [employer] 01/29/2025 [id number] / [id number] / [id number] documented as of this encounter Procedures Procedure Name Priority Date/Time Associated Diagnosis Comments DIFFERENTIAL, AUTOMATED Routine 03/08/2023 1:14 PM EST Encounter for long-term (current) use of other medications Hypomagnesemia Status post lung transplantation (HCC) HEPATIC FUNCTION PANEL Routine 03/08/2023 1:14 PM EST Meningitis, 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HCC) BASIC METABOLIC PANEL Routine 03/08/2023 1:14 PM EST Encounter for long-term (current) use of other medications Hypomagnesemia Status post lung transplantation (HCC) CBC Routine 03/08/2023 1:14 PM EST Encounter for long-term (current) use of other medications Hypomagnesemia Status post lung transplantation (HCC) CBC Routine 03/08/2023 1:14 PM EST Encounter for long-term (current) use of other medications Hypomagnesemia Status post lung transplantation (HCC) MAGNESIUM Routine 03/08/2023 1:14 PM EST Encounter for long-term (current) use of other medications Hypomagnesemia Status post lung transplantation (HCC) documented in this encounter Results * (ABNORMAL) DIFFERENTIAL, AUTOMATED (03/08/2023 1:14 PM EST) WBC 6.72 4.00 - 10.80 K/uL 03/08/2023 1:26 PM EST LABORATORY [place] 56-02 Neutrophils % 84.4(H) 40.0 - 75.0 % 03/08/2023 1:26 PM EST LAB[facility]ATORY [place] 56-02 Lymphocytes % 7.3(L) 18.0 - 42.0 % 03/08/2023 1:26 PM EST LAB[facility]ATORY [place] 56-02 Monocytes % 7.0 1.0 - 11.0 % 03/08/2023 1:26 PM EST LAB[facility] [place] 56-02 Eosinophils % 0.6 0.0 - 6.0 % 03/08/2023 1:26 PM EST LAB[facility]ATORY [place] 56-02 Basophils % 0.7 0.0 - 2.0 % 03/08/2023 1:26 PM EST LAB[facility]ATORY [place] 56-02 Absolute Neutrophils 5.67 1.80 - 7.70 K/uL 03/08/2023 1:26 PM EST [facility] [place] 56-02 Absolute Lymphocytes 0.49(L) 1.00 - 4.80 K/ul 03/08/2023 1:26 PM EST LAB[facility]AT[facility] [place] 56-02 Absolute Monocytes 0.47 0.00 - 1.10 K/uL 03/08/2023 1:26 PM EST [place] [address] Absolute Eosinophils 0.04 0.00 - 0.70 K/uL 03/08/2023 1:26 PM [place] [address] Absolute Basophils 0.05 0.00 - 0.20 K/uL 03/08/2023 1:26 PM EST [facility] Blood Venous blood specimen / Unknown Venipuncture / Unknown 03/08/2023 1:14 PM EST 03/08/2023 1:15 PM EST Katya Brand MD LAB BLOOD ORD ERABLES [place] [address] [place] [address] * (ABNORMAL) CBC (03/08/2023 1:14 PM EST) WBC 6.72 4.00 - 10.80 K/uL 03/08/2023 1:26 PM [place] [address] RBC 3.62 3.85 - 5.15 M/uL 03/08/2023 1:26 PM [place] [address] HGB 10.6(L) 12.0 - 15.3 g/dL 03/08/2023 1:26 PM [place] [address] HCT 32.9(L) 36.0 - 45.2 % 03/08/2023 1:[address] MCV 90.9 81.5 - 97.5 fL 03/08/2023 1:[address] MCH 29.3 27.0 - 34.0 pg 03/08/2023 1:26 PM [place] [address] MCHC 32.2 32.0 - 36.0 g/dL 03/08/2023 1:[address] RDW 14.3 11.5 - 15.5 % 03/08/2023 1:[address] PLT 149 140 - 400 K/uL 03/08/2023 1:[address] MPV 8.8 6.6 - 11.1 fL 03/08/2023 1:26 PM EST [place] [address] Blood Venous blood specimen / Unknown Venipuncture / Unknown 03/08/2023 1:14 PM EST 03/08/2023 1:15 PM EST Katya Brand MD [place] [address] * HEPATIC FUNCTION PANEL (03/08/2023 1:14 PM EST) Albumin 3.9 3.8 - 5.0 g/dL 03/08/2023 2:41 PM EST [place] [address] AST 26 10 - 35 U/L 03/08/2023 2:41 PM EST [place] [address] Alkaline Phosphatase 83 35 - 130 U/L 03/08/2023 2:41 PM EST [place] [address] ALT 11 10 - 35 U/L 03/08/2023 2:41 PM EST [place] [address] Bilirubin, Total 0.2 <=1.2 mg/dL 03/08/2023 2:41 PM EST [place] [address] Bilirubin, Direct <0.2 0.0 - 0.3 mg/dL 03/08/2023 2:41 PM EST [place] [address] Protein 6.3 6.0 - 8.3 g/dL 03/08/2023 2:41 PM EST [place] [address] Blood Venous blood specimen / Unknown Venipuncture / Unknown 03/08/2023 1:14 PM EST 03/08/2023 1:15 PM EST Dianne Chaudhary MD LAB BLOOD ORDERABLES [place] [address] [address] [place] [address] * MAGNESIUM (03/08/2023 1:14 PM EST) Magnesium 2.0 1.5 - 2.6 mg/dL 03/08/2023 2:41 PM EST [facility] 56 Blood Venous blood specimen / Unknown Venipuncture / Unknown 03/08/2023 1:14 PM EST 03/08/2023 1:15 PM EST Katya Brand MD LAB BLOOD ORD ERABLES [place] [address] [place] [id number] * (ABNORMAL) BASIC METABOLIC PANEL (03/08/2023 1:14 PM EST) BUN 36(H) 6 - 20 mg/dL 03/08/2023 2:41 PM EST [place] [address] Creatinine 2.8(H) 0.5 - 1.0 mg/dL 03/08/2023 2:41 PM [place] [address] Estimated Glomerular Filtration Rate 18(L) >=60 mL/min 03/08/2023 2:41 PM [place] [address] Comment:eGFR is calculated b ased on the CKD-EPI 2020 equation Sodium 141 135 - 146 mmol/L 03/08/2023 2:[address] Potassium 5.1 3.5 - 5.1 mmol/L 03/08/2023 2:[address] Chloride 106 98 - 107 mmol/L 03/08/2023 2:[address] CO2 25 22 - 32 mmol/L 03/08/2023 2:[address] Anion Gap 10 7 - 15 mmol/L 03/08/2023 2:41 PM EST [address] Glucose 145(H) 70 - 120 mg/dL 03/08/2023 2:41 PM EST [facility] 56 Calcium 9.5 8.4 - 10.2 mg/dL 03/08/2023 2:41 PM [facility] 56 Blood Venous blood specimen / Unknown Venipuncture / Unknown 03/08/2023 1:14 PM EST 03/08/2023 1:15 PM EST Katya Brand MD LAB BLOOD ORD ERABLES [facility] 56-02 [facility] [address] documented in this encounter Visit Diagnoses Diagnosis Encounter for long-term (current) use of other medications Hypomagnesemia 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
--- OUTSIDE RECORDS SUMMARY | 2023-05-24 01:55 | External Medical Summary | Summary of Care ---
Author Name Unknown Organization [facility] Address [address] [place] [address] Phone [phone] Care Team Providers Care Relay Shop Supervisor Name Role Phone August Esposito MD Primary Care Provider + Reason for Visit * Reason Comments Outpatient Testing Encounter Details Date Type Department Care Team (Latest Contact Info) Description 03/08/2023 1:10 PM EST Laboratory Laboratory Scenery [place] [address] [place] [phone] [place], Lab Scenery [address] [place] [address] Encounter for long-term (current) use of other [...] 30 Tablet 12 12/02/2021 Active Litetouch Pen [place] 31G X 8 MM (Insulin Pen Needle)Indications:T [...] group C, by GOLD 2017 classification ([facility]) Inhale 1 Puff by mouth [...] with long-term current use of insulin ([facility]) Use to check sugars 4 [...] with single episode, in partial remission ([facility]) Take 1 Tablet by mouth [...] Tixagevimab inj 300 mgIndications:Lung transplant status ([facility]) 300 mg IM [id number] 01/21/2022 Active Cilgavimab inj 300 mgIndications:Lung transplant status ([facility]) 300 mg IM [id number] 01/21/2022 Active documented as of this encounter [...] Pain medication agreement 04/18/2012 Overview: Signed 04/18/12 Migyq-1-dukzjsvdumw deficiency 09/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 fall 2010 caused arthralgias. [...] 05/31/2023 2:00 PM EST Office Visit Pharmacy, [facility] [address] [facility] [place] [address] [facility] [address] [facility] [place] [address] 07/20/2023 2:00 PM EDT Office Visit Neurology [facility] [address] [place] [address] Alva Contreras PA-C [address] [facility] [place] [address] 07/26/2023 2:40 PM EDT Office Visit General Internal Medicine [facility] [address] [place] [address] August Esposito MD [address] [facility] [place] [address] Pending Results Name Type Priority Associated Diagnoses [...] Additional history exists CKD PHOS USE SMARTSET 58499 11/16/202310/30, 11/08/2022, 05/10/2022, Additional history exists COLONOSCOPY-EVERY 5 YRS AGES 18-100 11/18/2023 11/17/2018 Depression Screening 01/12/2024 01/11/2023, 02/22/20 15 O2 ASSESSMENT COMPLETED IN PAST YEAR FOR COPD 01/12/2024 01/11/2023, 05/24/2014 (Course Completed) CKD HGB USE SMARTSET 40275 03/08/202403/08, 03/08/2023, 02/21/2023, Additional history exists Lipid [...] this encounter Medical Devices Implanted Type Area Acid Dipper Device Identifier Shelf Expiration Date Model / Serial / Lot Lens Intraoc 21.5 - [id number] - [id number] Implanted:Qty: 1 on 06/10/2020 by Pietro Nuñez MD at OR [facility] Right: Eye [employer] 12/30/2024 [id number] / [id number] / [id number] Lens Intraoc 21.5 - [id number] - [id number] Implanted:Qty: 1 on 06/24/2020 by Pietro Nuñez MD at OR [facility] Left: Eye [employer]OM[employer] 01/29/2025 [id number] / [id number] / [id number] documented as of this encounter Procedures Procedure [...] 10.80 K/uL 03/08/2023 1:26 PM EST LABORATORY [place] 56-02 Neutrophils % 84.4(H) 40.0 - 75.0 % 03/08/2023 1:26 PM EST LABORATORY [place] 56-02 Lymphocytes % 7.3(L) 18.0 - 42.0 % 03/08/2023 1:26 PM EST LABOR[facility] [place] 56-02 Monocytes % 7.0 1.0 - 11.0 % 03/08/2023 1:26 PM EST LAB[facility] [place] 56-02 Eosinophils % 0.6 0.0 - 6.0 % 03/08/2023 1:26 PM EST LAB[facility] [place] 56-02 Basophils % 0.7 0.0 - 2.0 % 03/08/2023 1:26 PM EST LAB[facility] [place] 56-02 Absolute Neutrophils 5.67 1.80 - 7.70 K/uL 03/08/2023 1:26 PM EST LAB[facility] [place] 56-02 Absolute Lymphocytes 0.49(L) 1.00 - 4.80 K/ul 03/08/2023 1:26 PM EST LAB[facility] [place] 56-02 Absolute Monocytes 0.47 0.00 - 1.10 K/uL 03/08/2023 1:26 PM EST [place] [address] Absolute Eosinophils 0.04 0.00 - 0.70 K/uL 03/08/2023 1:26 PM [place] [address] Absolute Basophils 0.05 0.00 - 0.20 K/uL 03/08/2023 1:26 PM EST [facility] Blood Venous blood specimen / Unknown Venipuncture / Unknown 03/08/2023 1:14 PM EST 03/08/2023 1:15 PM EST Katya Brand MD LAB BLOOD ORD ERABLES [place] [address] [place] [address] * (ABNORMAL) CBC (03/08/2023 1:14 PM EST) WBC 6.72 4.00 - 10.80 K/uL 03/08/2023 1:26 PM [place] [address] RBC 3.62 3.85 - 5.15 M/uL 03/08/2023 1:26 PM [place] [address] HGB 10.6(L) 12.0 - 15.3 g/dL 03/08/2023 1:26 PM [place] [address] HCT 32.9(L) 36.0 - 45.2 % 03/08/2023 1:[address] MCV 90.9 81.5 - 97.5 fL 03/08/2023 1:[address] MCH 29.3 27.0 - 34.0 pg 03/08/2023 1:26 PM [place] [address] MCHC 32.2 32.0 - 36.0 g/dL 03/08/2023 1:[address] RDW 14.3 11.5 - 15.5 % 03/08/2023 1:[address] PLT 149 140 - 400 K/uL 03/08/2023 1:[address] MPV 8.8 6.6 - 11.1 fL 03/08/2023 1:26 PM EST [place] [address] Blood Venous blood specimen / Unknown Venipuncture / Unknown 03/08/2023 1:14 PM EST 03/08/2023 1:15 PM EST Katya Brand MD [place] [address] * HEPATIC FUNCTION PANEL (03/08/2023 1:14 PM EST) Albumin 3.9 3.8 - 5.0 g/dL 03/08/2023 2:41 PM EST [place] [address] AST 26 10 - 35 U/L 03/08/2023 2:41 PM EST [place] [address] Alkaline Phosphatase 83 35 - 130 U/L 03/08/2023 2:41 PM EST [place] [address] ALT 11 10 - 35 U/L 03/08/2023 2:41 PM EST [place] [address] Bilirubin, Total 0.2 <=1.2 mg/dL 03/08/2023 2:41 PM EST [place] [address] Bilirubin, Direct <0.2 0.0 - 0.3 mg/dL 03/08/2023 2:41 PM EST [place] [address] Protein 6.3 6.0 - 8.3 g/dL 03/08/2023 2:41 PM EST [place] [address] Blood Venous blood specimen / Unknown Venipuncture / Unknown 03/08/2023 1:14 PM EST 03/08/2023 1:15 PM EST Dianne Chaudhary MD LAB BLOOD ORDERABLES [place] [address] [address] [place] [address] * MAGNESIUM (03/08/2023 1:14 PM EST) Magnesium 2.0 1.5 - 2.6 mg/dL 03/08/2023 2:41 PM EST [facility] 56 Blood Venous blood specimen / Unknown Venipuncture / Unknown 03/08/2023 1:14 PM EST 03/08/2023 1:15 PM EST Katya Brand MD LAB BLOOD ORD ERABLES [place] [address] [place] [id number] * (ABNORMAL) BASIC METABOLIC PANEL (03/08/2023 1:14 PM EST) BUN 36(H) 6 - 20 mg/dL 03/08/2023 2:41 PM EST [place] [address] Creatinine 2.8(H) 0.5 - 1.0 mg/dL 03/08/2023 2:41 PM [place] [address] Estimated Glomerular Filtration Rate 18(L) >=60 mL/min 03/08/2023 2:41 PM [place] [address] Comment:eGFR is calculated b ased on the CKD-EPI 2020 equation Sodium 141 135 - 146 mmol/L 03/08/2023 2:[address] Potassium 5.1 3.5 - 5.1 mmol/L 03/08/2023 2:[address] Chloride 106 98 - 107 mmol/L 03/08/2023 2:[address] CO2 25 22 - 32 mmol/L 03/08/2023 2:[address] Anion Gap 10 7 - 15 mmol/L 03/08/2023 2:41 PM EST [address] Glucose 145(H) 70 - 120 mg/dL 03/08/2023 2:41 PM EST [facility] 56 Calcium 9.5 8.4 - 10.2 mg/dL 03/08/2023 2:41 PM [facility] 56 Blood Venous blood specimen / Unknown Venipuncture / Unknown 03/08/2023 1:14 PM EST 03/08/2023 1:15 PM EST Katya Brand MD LAB BLOOD ORD ERABLES [facility] 56-02 [facility] [address] documented in this encounter Visit Diagnoses Diagnosis Encounter for long-term (current) use of other medications Hypomagnesemia 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
--- OUTSIDE RECORDS SUMMARY | 2023-05-24 01:55 | External Medical Summary | Summary of Care ---
Author Name Unknown Organization [facility] Address [address] [place] [address] Phone [phone] Care Team Providers Care Help Desk Technician Name Role Phone August Esposito MD Primary Care Provider + Reason for Visit * Reason Comments Outpatient Testing Encounter Details Date Type Department Care Team (Latest Contact Info) Description 03/08/2023 1:10 PM EST Laboratory Laboratory Sc[facility] [place] [address] [place] [phone] [place], Lab Scenery [address] [place] [address] Encounter for long-term (current) use of other medications; Hypomagnesemia; Status post lung transplantation (HCC); Meningitis, 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HCC) Allergies Active Allergy Reactions Criticality Noted Date Comments Pollen 01/02/2020 Other reaction(s): Sneezing (finding) documented as of this encounter (statuses as of 03/08/2023) Medications Medication Sig Dispensed Refills Start Date [...] 30 Tablet 12 12/02/2021 Active Litetouch Pen [place] 31G X 8 MM (Insulin Pen Needle)Indications:T [...] C, by GOLD 2017 classification ([facility]) Inhale 1 Puff by mouth in the [...] long-term current use of insulin ([facility]) Use to check sugars 4 times a [...] single episode, in partial remission ([facility]) Take 1 Tablet by mouth in the [...] inj 300 mgIndications:Lung transplant status ([facility]) 300 mg IM [id number] 01/21/2022 Active Cilgavimab inj 300 mgIndications:Lung transplant status ([facility]) 300 mg IM [id number] 01/21/2022 Active documented as of this encounter (statuses as of 03/08/2023) Active Problems Problem Noted Date Diagnosed Date [...] 0 01/02/2020 Bradycardia 09/10/2019 Overview: On beta diesi Lung transplant status 08/31/2019 Overview: 07/2019 COPD, group C, by GOLD 2017 classification 10/09 Overview: Per COPD GOLD Classification PFO (patent foramen ovale) 09/01/2018 History of pulmonary embolism 02/11/2017 H/O lymphoma 02/11/2017 Hypoxemia 09/28/2012 Type 2 diabetes mellitus wit h hemoglobin A1c goal of less than 7.0% 06/21/2012 Overview: ICD-10 update of inactive term Pain medication agreement 04/18/2012 Overview: Signed 04/18/12 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 Zamaira given fall 2010 caused arthralgias. 08/28/10 - <30 10/12/08 - MM allele 08/22/08 - 232 Proteinuria 10/08/2009 History of tobacco use 09/10/2009 Chronic rhinitis 09/10/2009 Esophageal reflux Disc disorder of lumbar region Overview: has had multiple surgeries - now w/ chronic back pain from postlaminectomy syndrome documented as of this encounter (statuses as of 03/08/2023) Resolved Problems Problem Noted Date Diagnosed Date [...] HX- NONHODGKIN'S LYMPHOMA 07/21/2009 Overview: Sep 2008, [facility], received 3 doses of chemo, remission COPD exacerbation 01/09/2009 12/16/2009 COPD, severity to be determined 01/09/2009 04/13/2011 Overview: 06/05/10: 4 LPM 24hrs/day. 07/26/09: Failed 2 step at [facility], 2 LPM 24 hr/day 07/15/09: Nocturnal pulse [...] 0 Overview: chronic back pain - sees [facility] Pain Management Other malignant lymphomas, u nspecified site, extranodal and solid organ sites 011 Overview: NHL- Sep 2008 at [facility] Dr Caceres Major depressive disorder Overview: ICD-10 update of inactive term Other malignant lymphomas, u nspecified site, extranodal and solid organ sites 018 Overview: NHL- Sep 2008 at [facility] Dr Caceres documented as of this encounter (statuses as of 03/08/2023) Immunizations Name Administration Dates Next Due COVID-19 [...] 05/31/2023 2:00 PM EST Office Visit Pharmacy, [facility] [address] [facility] [place] [address] [facility] [address] [facility] [place] [address] 07/20/2023 2:00 PM EDT Office Visit Neurology [facility] [address] [facility] [place] [address] Alva Contreras PA-C [address] [facility] [place] [address] 07/26/2023 2:40 PM EDT Office Visit General Internal Medicine [facility] [address] [facility] [place] [address] August Esposito MD [address] [facility] [place] [address] Pending Results Name Type Priority Associated Diagnoses Date /Time BASIC METABOLIC PANEL Lab Routine Encounter for long-term (current) use of other medications Hypomagnesemia Status post lung transplantation (HCC) 03/08/2023 1:14 PM EST MAGNESIUM Lab Routine Encounter for long-term (current) use of other medications Hypomagnesemia Status post lung transplantation ([facility]) 03/08/2023 1:14 PM EST TACROLIMUS LEVEL Lab Routine Encounter [...] lung transplantation (HCC) 03/08/2023 1:14 PM EST HEPATIC FUNCTION PANEL Lab Routine Meningitis, 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HCC) 03/08/2023 1:14 PM EST Scheduled Procedures Name Priority Associated [...] 0 06/10/2021, 07/10/2020, Additional history exists GFR 08/23/2023 02/21/2023, 10/0 06/2022, 01/25/2023, Additional history exists CKD PHOS USE SMARTSET 77017 11/16/202310/30, 11/08/2022, 05/10/2022, Additional history exists COLONOSCOPY-EVERY 5 YRS AGES 18-100 11/18/2023 11/17/2018 Depression Screening 01/12/2024 01/11/2023, 02/22/20 15 O2 ASSESSMENT COMPLETED IN PAST YEAR FOR COPD 01/12/2024 01/11/2023, 05/24/2014 (Course Completed) CKD HGB USE SMARTSET 74719 02/22/202403/08, 03/08/2023, 02/21/2023, Additional history exists Lipid Panel [...] this encounter Medical Devices Implanted Type Area Ball Fringe Machine Operator Device Identifier Shelf Expiration Date Model / Serial / Lot Lens Intraoc 21.5 - [id number] - [id number] Implanted:Qty: 1 on 06/10/2020 by Pietro Nuñez MD at OR [facility] Right: Eye [employer] 12/30/2024 [id number] / [id number] / [id number] Lens Intraoc 21.5 - [id number] - [id number] Implanted:Qty: 1 on 06/24/2020 by Pietro Nuñez MD at OR [facility] Left: Eye [employer] 01/29/2025 [id number] / [id number] / [id number] documented as of this encounter Procedures Procedure [...] 10.80 K/uL 03/08/2023 1:26 PM EST LAB[facility]ORY [place] 56-02 Neutrophils % 84.4(H) 40.0 - 75.0 % 03/08/2023 1:26 PM EST [facility] [place] 56-02 Lymphocytes % 7.3(L) 18.0 - 42.0 % 03/08/2023 1:26 PM EST [facility] [place] 56-02 Monocytes % 7.0 1.0 - 11.0 % 03/08/2023 1:26 PM EST [facility] [place] 56-02 Eosinophils % 0.6 0.0 - 6.0 % 03/08/2023 1:26 PM EST [facility] [place] 56-02 Basophils % 0.7 0.0 - 2.0 % 03/08/2023 1:26 PM EST [facility] [place] 56-02 Absolute Neutrophils 5.67 1.80 - 7.70 K/uL 03/08/2023 1:26 PM EST [facility] [place] 56-02 Absolute Lymphocytes 0.49(L) 1.00 - 4.80 K/ul 03/08/2023 1:26 PM EST [facility] [place] 56-02 Absolute Monocytes 0.47 0.00 - 1.10 K/uL 03/08/2023 1:26 PM EST [facility] [place] 56-02 Absolute Eosinophils 0.04 0.00 - 0.70 K/uL 03/08/2023 1:26 PM EST [facility] [place] 56-02 Absolute Basophils 0.05 0.00 - 0.20 K/uL 03/08/2023 1:26 PM EST [facility] 56-02 Blood Venous blood specimen / Unknown Venipuncture / Unknown 03/08/2023 1:14 PM EST 03/08/2023 1:15 PM EST Katya Brand MD LAB BLOOD ORD ERABLES [facility] [address] [place] [address] * (ABNORMAL) CBC (03/08/2023 1:14 PM EST) WBC 6.72 4.00 - 10.80 K/uL 03/08/2023 1:26 PM EST [address] RBC 3.62 3.85 - 5.15 M/uL 03/08/2023 1:26 PM EST [place] [address] HGB 10.6(L) 12.0 - 15.3 g/dL 03/08/2023 1:26 PM EST [place] [address] HCT 32.9(L) 36.0 - 45.2 % 03/08/2023 1:26 PM EST [address] MCV 90.9 81.5 - 97.5 fL 03/08/2023 1:26 PM EST [address] MCH 29.3 27.0 - 34.0 pg 03/08/2023 1:26 PM EST [place] [address] MCHC 32.2 32.0 - 36.0 g/dL 03/08/2023 1:26 PM EST [place] [address] RDW 14.3 11.5 - 15.5 % 03/08/2023 1:26 PM EST [facility] 56 PLT 149 140 - 400 K/uL 03/08/2023 1:26 PM [place] [address] MPV 8.8 6.6 - 11.1 fL 03/08/2023 1:26 PM EST [facility] Blood Venous blood specimen / Unknown Venipuncture / Unknown 03/08/2023 1:14 PM EST 03/08/2023 1:15 PM EST Katya Brand MD LAB BLOOD ORD ERABLES [facility] [address] [place] [address] documented in this encounter Visit Diagnoses Diagnosis Encounter for long-term (current) use of other medications Hypomagnesemia 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
--- OUTSIDE RECORDS SUMMARY | 2023-05-24 01:56 | External Medical Summary | Summary of Care ---
Author Name Unknown Organization [facility] Address [address] [place] [address] Phone [phone] Care Team Providers Care Health Underwriter Name Role Phone August Esposito MD Primary Care Provider + Reason for Visit * Reason Comments Outpatient Testing Encounter Details Date Type Department Care Team (Latest Contact Info) Description 02/21/2023 2:40 PM EDT Laboratory Laboratory [facility] [place] [address] [place] [phone] [place], Lab Scenery [address] [place] [address] Encounter for long-term (current) use of other medications; Hypomagnesemia; Status post lung transplantation (HCC); Disc disorder of lumbar region; Encounter for therapeutic drug level monitoring Allergies Active Allergy Reactions Criticality Noted Date Comments Pollen 01/02/2020 Other reaction(s): Sneezing (finding) documented as of this encounter (statuses as of 02/21/2023) Medications Medication Sig Dispensed Refills Start Date [...] 30 Tablet 12 12/02/2021 Active Litetouch Pen [place] 31G X 8 MM (Insulin Pen Needle)Indications:T [...] C, by GOLD 2017 classification ([facility]) Inhale 1 Puff by mouth in the [...] long-term current use of insulin ([facility]) Use to check sugars 4 times a [...] single episode, in partial remission ([facility]) Take 1 Tablet by mouth in the morning. 90 Tablet 1 01/11/2023 Active Polyethylene Glycol 3350 17 GM/SCOOP Oral PowderIndications:Co nstipation, unspecified constipation type Take 17 g by mouth as needed for Constipation. Dissolve one heaping tablespoon in 8 ounces of water or juice. 17 g 0 01/11/2023 Active predniSONE 5 MG Oral Tablet (Deltasone)Indicatio ns:Lung transplant status ([facility]) Take 1 Tablet by mouth in the morning. TAKING 5mg DAILY. 90 Tablet 3 01/19/2023 Active HYDROmorphone HCl 2 MG Oral Tablet (Dilaudid)Indication s:Disc disorder of lumbar region Take 1 Tablet by mouth every 12 hours as needed for Pain, Severe. 60 Tablet 0 02/01/2023 Active oxyCODONE HCl ER 10 MG Oral Tablet ER 12 Hour Abuse-Deterrent (oxyCONTIN) Take 1 Tablet by mouth in the morning and 1 Tablet before bedtime. 60 Tablet 0 02/01/2023 Active Hospital, Clinic, or Other Facility Administered Medication Ordered Dose Route Frequency Start Date End Date Status Tixagevimab inj 300 mgIndications:Lung transplant status ([facility]) 300 mg IM [id number] 01/21/2022 Active Cilgavimab inj 300 mgIndications:Lung transplant status ([facility]) 300 mg IM [id number] 01/21/2022 Active documented as of this encounter (statuses as of 02/21/2023) Active Problems Problem Noted Date Diagnosed Date [...] Pain medication agreement 04/18/2012 Overview: Signed 04/18/12 Yyhed-5-wzbbgjwitbc deficiency 09/24/2010 Overview: Prolastin 60mg/kg started 06/07/11, [...] as of this encounter (statuses as of 02/21/2023) Resolved Problems Problem Noted Date Diagnosed Date [...] HX- NONHODGKIN'S LYMPHOMA 07/21/2009 Overview: Sep 2008, [facility], received 3 doses of chemo, remission COPD exacerbation 01/09/2009 12/16/2009 COPD, severity to be determined 01/09/2009 04/13/2011 Overview: 06/05/10: 4 LPM 24hrs/day. 07/26/09: Failed 2 step at [facility], 2 LPM 24 hr/day 07/15/09: Nocturnal [...] Overview: chronic back pain - sees [facility] Pain Management Other malignant lymphomas, u nspecified site, extranodal and solid organ sites 011 Overview: NHL- Sep 2008 at [facility] Dr Caceres Major depressive disorder Overview: ICD-10 update of inactive term Other malignant lymphomas, u nspecified site, extranodal and solid organ sites 018 Overview: NHL- Sep 2008 at [facility] Dr Caceres documented as of this encounter (statuses as of 02/21/2023) Immunizations Name Administration Dates Next Due COVID-19 mRNA, LNP-s, No Pre serve, 2-Dose Series (Moderna) 01/24/2021,07/03/2020,05/31/2020 Covid-19, Mrna, Lnp-s, Pf, B ivalent, 30 Mcg, IM, 12 yrs and above (Animated Speech) 04/21/2022 H1N1 2009 Influenza, IM 06/11/2009 Hepatitis [...] Recorded PHQ Adult Total Score 0 01/11/2023 Sex and Gender Information Value Date Recorded [...] 05/31/2023 2:00 PM EST Office Visit Pharmacy, [facility] [address] [place] [address] [facility] [address] [place] [address] 07/20/2023 2:00 PM EDT Office Visit Neurology [facility] [address] [facility] [place] [address] Alva Contreras PA-C [address] [facility] [place] [address] 07/26/2023 2:40 PM EDT Office Visit General Internal Medicine [facility] [address] [facility] [place] [address] August Esposito MD [address] [facility] [place] [address] Pending Results Name Type Priority Associated Diagnoses Date /Time CBC WITH WBC DIFFERENTIAL Lab Routine Encounter for long-term (current) use of other medications Hypomagnesemia Status post lung transplantation (HCC) 02/21/2023 2:34 PM EDT BASIC METABOLIC PANEL Lab Routine Encounter for long-term (current) use of other medications Hypomagnesemia Status post lung transplantation ([facility]) 02/21/2023 2:34 PM EDT MAGNESIUM Lab Routine Encounter for long-term (current) use of other medications Hypomagnesemia Status post lung transplantation ([facility]) 02/21/2023 2:34 PM EDT TACROLIMUS LEVEL Lab Routine Encounter for long-term (current) use of other medications Hypomagnesemia Status post lung transplantation ([facility]) 02/21/2023 2:34 PM EDT EVEROLIMUS, LC/MS/MS, BLOOD Lab Routine Encounter for long-term (current) use of other medications Hypomagnesemia Status post lung transplantation ([facility]) 02/21/2023 2:34 PM EDT CYTOMEGALOVIRUS DNA, QUANTITATIVE REAL-TIME PCR Lab Routine Encounter for long-term (current) use of other medications Hypomagnesemia Status post lung transplantation ([facility]) 02/21/2023 2:34 PM EDT CBC Lab Routine Encounter for long-term (current) use of other medications Hypomagnesemia Status post lung transplantation ([facility]) 02/21/2023 2:34 PM EDT DIFFERENTIAL, AUTOMATED Lab Routine Encounter for long-term (current) use of other medications Hypomagnesemia Status post lung transplantation (HCC) 02/21/2023 2:34 PM EDT PAIN MANAGEMENT DRUG PANEL, URINE W/ INTERPRETATION Lab Routine Disc disorder of lumbar region Encounter for therapeutic drug level monitoring 02/21/2023 2:43 PM EDT Scheduled Procedures Name Priority Associated Diagnoses Date/Ti me COLONOSCOPY FLEXIBLE PROXIMA L DIAGNOSTIC Recall Screening for malignant neoplasm of colon Health Maintenance Due Date Last Done Comments *ADVANCE DIRECTIVE NOT ON FILE 08/25/2016 DIABETES-EYE EXAM 03/18/2021 03/18/2020, , 03/19/2014, Additional history exists [...] 0 06/10/2021, 07/10/2020, Additional history exists GFR 08/02/2023 01/31/2023, 01/01, 01/18/2023, Additional history exists CKD PHOS USE SMARTSET 38456 11/16/202310/30, 11/08/2022, 05/10/2022, Additional history exists COLONOSCOPY-EVERY 5 YRS AGES 18-100 11/18/2023 11/17/2018 Depression Screening 01/12/2024 01/11/2023, 02/22/20 15 O2 ASSESSMENT COMPLETED IN PAST YEAR FOR COPD 01/12/2024 01/11/2023, 05/24/2014 (Course Completed) CKD HGB USE SMARTSET 92667 02/01/202401/31, 01/31/2023, 01/25/2023, Additional history exists Lipid Panel 01/19/2028 01/18/2023, [...] this encounter Medical Devices Implanted Type Area Ehr Trainer Device Identifier Shelf Expiration Date Model / Serial / Lot Lens Intraoc 21.5 - [id number] - [id number] Implanted:Qty: 1 on 06/10/2020 by Pietro Nuñez MD at OR [facility] Right: Eye [employer] 12/30/2024 [id number] / [id number] / [id number] Lens Intraoc 21.5 - [id number] - [id number] Implanted:Qty: 1 on 06/24/2020 by Pietro Nuñez MD at OR [facility] Left: Eye [employer] 01/29/2025 [id number] / [id number] / [id number] documented as of this encounter Visit Diagnoses Diagnosis Encounter for long-term (current) use of other medications Hypomagnesemia 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
--- OUTSIDE RECORDS SUMMARY | 2023-05-24 01:56 | External Medical Summary | Summary of Care ---
Author Name Unknown Organization [facility] Address [address] [place] [address] Phone [phone] Care Team Providers Care Digital Account Supervisor Name Role Phone August Esposito MD Primary Care Provider + Reason for Visit * Reason Onset Date Comments Test Results 01/26/2023 Encounter Details Date Type Department Care Team (Late st Contact Info) Description 01/26/2023 Telephone General Internal Medicine [facility] [address] [facility] [place] [address] August Esposito MD [address] [place] [address] Test Results Allergies Active Allergy Reactions Criticality Noted Date Comments Pollen 01/02/2020 Other reaction(s): Sneezing (finding) documented as of this encounter (statuses as of 02/25/2023) Medications Medication Sig Dispensed Refills Start Date End Date Status BD INSULIN SYR ULTRAFINE II 31G X /" 0.5 ML MISCIndications:DM type 2, goal A1c [...] 30 Tablet 12 2 Active Litetouch Pen [place] 31G X 8 MM (Insulin Pen Needle)Indications [...] Dx: E11.9 100 Each 3 2 Active Insulin Glargine Solostar 100 UNIT/ML Subcutaneous Solution Pen-injector (Lantus SoloStar)Indicatio ns:Type 2 diabetes mellitus with hemoglobin A1c goal of less than 7.0% (HCC) Inject 15 Units under the skin at bedtime. 15 mL 0 3 Active Fluticasone Furoate-Vilanterol 100-25 MCG/ACT Inhalation Aerosol Powder Breath Activated (BREO ellipta)Indication s:COPD, group C, by GOLD 2017 classification ([facility] [...] disorder with single episode, in partial remission ([facility]) Take 1 Tablet by mouth in the morning. 90 Tablet 1 3 Active Polyethylene Glycol 3350 17 GM/SCOOP Oral PowderIndications: Constipation, unspecified constipation type Take 17 g by mouth as needed for Constipation. Dissolve one heaping tablespoon in 8 ounces of water or juice. 17 g 0 3 Active predniSONE 5 MG Oral Tablet (Deltasone)Indicat ions:Lung transplant status (HCC) Take 1 Tablet by mouth in the morning. TAKING 5mg DAILY. 90 Tablet 3 3 Active HYDROmorphone HCl 2 MG Oral Tablet (Dilaudid)Indicati ons:Disc disorder of lumbar region Take 1 Tablet by mouth every 12 hours as needed for Pain, Severe. 60 Tablet 0 3 02/02/20 23 Discontinued(Re fill) oxyCODONE HCl ER 15 MG Oral Tablet ER 12 Hour Abuse-Deterrent (oxyCONTIN)Indicat ions:Disc disorder of lumbar region Take 1 Tablet by mouth in the morning and 1 Tablet before bedtime. 60 Tablet 0 3 02/02/20 23 Discontinued Hospital, Clinic, or Other Facility Administered Medication Ordered Dose Route Frequency Start Date End Date Status Tixagevimab inj 300 mgIndications:Lung transplant status ([facility]) 300 mg IM [id number] 01/21/2022 Active Cilgavimab inj 300 mgIndications:Lung transplant status ([facility]) 300 mg IM [id number] 01/21/2022 Active documented as of this encounter (statuses as of 02/25/2023) Active Problems Problem Noted Date Diagnosed Date [...] Pain medication agreement 04/18/2012 Overview: Signed 04/18/12 Hlqtw-5-oclyqppujcg deficiency 09/24/2010 Overview: Prolastin 60mg/kg [facility] 06/07/11[facility] Zamaira given fall 2010 caused arthralgias. 08/28/10 - <30 10/12/08 - MM allele 08/22/08 - 232 Proteinuria 10/08/2009 History of tobacco use 09/10/2009 Chronic rhinitis 09/10/2009 Esophageal reflux Disc disorder of lumbar region Overview: has had multiple surgeries - now w/ chronic back pain from postlaminectomy syndrome documented as of this encounter (statuses as of 02/25/2023) Resolved Problems Problem Noted Date Diagnosed Date [...] HX- NONHODGKIN'S LYMPHOMA 07/21/2009 Overview: Sep 2008, [facility], received 3 doses of chemo, remission COPD exacerbation 01/09/2009 12/16/2009 COPD, severity to be determined 01/09/2009 04/13/2011 Overview: 06/05/10: 4 LPM 24hrs/day. 07/26/09: Failed 2 step at [facility], 2 LPM 24 hr/day 07/15/09: Nocturnal pulse [...] 0 Overview: chronic back pain - sees [facility] Pain Management Other malignant lymphomas, u nspecified site, extranodal and solid organ sites 011 Overview: NHL- Sep 2008 at [facility] Dr Caceres Major depressive disorder Overview: ICD-10 update of inactive term Other malignant lymphomas, u nspecified site, extranodal and solid organ sites 018 Overview: NHL- Sep 2008 at [facility] Dr Caceres documented as of this encounter (statuses as of 02/25/2023) Immunizations Name Administration Dates Next Due COVID-19 mRNA, LNP-s, No Pre serve, 2-Dose Series (Moderna) 01/24/2021,07/03/2020,05/31/2020 Covid-19, Mrna, Lnp-s, Pf, B ivalent, 30 Mcg, IM, 12 yrs and above (APROOFED) 04/21/2022 H1N1 2009 Influenza, IM 06/11/2009 Hepatitis [...] encounter Miscellaneous Notes * Telephone Encounter - Carolee Donahue, JESUSITA - 02/25/2023 2:31 PM EDT Left message for pt to call back. MyG & letter sent * Telephone Encounter - Ebonie Calvillo LPN - 01/26/2023 2:33 PM EDT Provider to address: n/a Reason for Call: No chief complaint on file. Contact: Telephone Call Contact Type: Test Results Outcome: Left VM for patient to return our call. Total Time including non face to face (minutes): 5 Ebonie Calvillo LPN * Telephone Encounter - Ebonie Calvillo LPN - 01/26/2023 2:32 PM EDT ----- Message from August Esposito MD sent at 01/24/2023 9:42 AM EDT ----- Thyroid ok, triglycerides a little better, would try to follow low fat diet. Make sure labs were fasting Labs done by transplant show decreasing gfr, have they been in contact about this decreased kidney function?! documented in this encounter Plan of Treatment Upcoming Encounters Date Type Department Care Team (Late st Contact Info) Description 03/08/2023 4:15 PM EST Immunization [facility] [address] [address] [facility] [address] [place] [address] 05/31/2023 2:00 PM EST Office Visit Pharmacy, [facility] [address] [facility] [place] [address] [facility] [address] [facility] [place] [address] 07/20/2023 2:00 PM EDT Office Visit Neurology [facility] [address] [facility] [place] [address] Alva Contreras PA-C [address] [facility] [place] [address] 07/26/2023 2:40 PM EDT Office Visit General Internal Medicine [facility] [address] [facility] [place] [address] August Esposito MD [address] [facility] [place] [address] Scheduled Procedures Name Priority Associated Diagnoses Date/Ti [...] 07/10/2020, Additional history exists GFR 08/23/2023 02/21/2023, 100 06/2022, 01/25/2023, Additional history exists CKD PHOS USE SMARTSET 98333 11/16/202310/30, 11/08/2022, 05/10/2022, Additional history exists COLONOSCOPY-EVERY 5 YRS AGES 18-100 11/18/2023 11/17/2018 Depression Screening 01/12/2024 01/11/2023, 02/22/20 15 O2 ASSESSMENT COMPLETED IN PAST YEAR FOR COPD 01/12/2024 01/11/2023, 05/24/2014 (Course Completed) CKD HGB USE SMARTSET 57881 02/22/202402/21, 02/21/2023, 01/31/2023, Additional history exists Lipid Panel 01/19/2028 01/18/2023, [...] this encounter Medical Devices Implanted Type Area Delivery Crew Member Device Identifier Shelf Expiration Date Model / Serial / Lot Lens Intraoc 21.5 - [id number] - [id number] Implanted:Qty: 1 on 06/10/2020 by Pietro Nuñez MD at OR [facility] Right: Eye [employer]OM[employer] 12/30/2024 [id number] / [id number] / [id number] Lens Intraoc 21.5 - [id number] - [id number] Implanted:Qty: 1 on 06/24/2020 by Pietro Nuñez MD at OR [facility] Left: Eye BAUSCH [employer] LOMB 01/29/2025 [id number] / [id number] / [id number] documented as of this encounter Care Teams Digital Account Supervisor Relationship Specialty Start Date End Date August Esposito MD [address] [place] [address] PCP - General Internal Medicine 12/13/11 documented as of this encounter
--- OUTSIDE RECORDS SUMMARY | 2023-05-24 01:56 | External Medical Summary ---
Author Name Unknown Address Unknown Organization K09:[facility] [place] [address] Laboratory Report Ordering Provider Test Date Status NATALIE JOHN 02/21/2023 14:34:49 Final Observation Date Value Abnormality Reference (Units ) Status SYNC LEUKOCYTES IN BLOOD BY AUTOMATED COUNT 02/21/2023 14:34:49 5.99 4.00-10.80 (K/uL) Final Segs 02/21/2023 14:34:49 83.6 Above high normal 40.0-75.0 (%) Final Lymphs % 02/21/2023 14:34:49 8.0 Below low normal 18.0-42.0 (%) Final Monos 02/21/2023 14:34:49 7.2 1.0-11.0 (%) Final Eosinophils 02/21/2023 14:34:49 0.5 0.0-6.0 (%) Final Basos 02/21/2023 14:34:49 0.7 0.0-2.0 (%) Final Absolute Segs 02/21/2023 14:34:49 5.01 1.80-7.70 (K/uL) Final Lymphs, absolute 02/21/2023 14:34:49 0.48 Below low normal 1.00-4.80 (K/ul) Final Monos, Abs 02/21/2023 14:34:49 0.43 0.00-1.10 (K/uL) Final Eos, Abs 02/21/2023 14:34:49 0.03 0.00-0.70 (K/uL) Final Basos, Abs 02/21/2023 14:34:49 0.04 0.00-0.20 (K/uL) Final Performing Location [facility] [place] [address]
--- OUTSIDE RECORDS SUMMARY | 2023-05-24 01:56 | External Medical Summary ---
Author Name Unknown Address Unknown Organization : Laboratory Report Ordering Provider Test Date Status NATALIE JOHN 02/21/2023 14:34:49 Final Observation Date Value Abnormality Reference (Units ) Status Source 02/21/2023 14:34:49 Whole Blood Final Cytomegalovirus DNA [Units/volume] (viral load) in Specimen by with probe detection 02/21/2023 14:34:49 Not Detected (IU/mL) Final Cytomegalovirus DNA [Log #/volume] (viral load) in Specimen by with probe detection 02/21/2023 14:34:49 Not Detected (log IU/mL) Final REFERENCE RANGE: NOT DETECTE D
This test was developed and its analytical performance
characteristics have been determined by [facility] [place], [place]. It has
not been cleared or approved by the U.S. Food and Drug
Administration. This assay has been validated pursuant
to the CLIA regulations and is used for clinical
purposes.
For additional information, please refer to
http://education.[employer].com/faq/CMVandEBVPCR
(This link is being provided for informational/
educational purposes only.)

Test Performed at:
[facility]
[address] [facility]
[place], [place]
Emory Amador M.D., Ph.D.,Director of Laboratories Performing Location
--- OUTSIDE RECORDS SUMMARY | 2023-05-24 01:56 | External Medical Summary ---
Author Name Unknown Address Unknown Organization K01:LABORATORY [facility] - [address] [facility] [address] Laboratory Report Ordering Provider Test Date Status VILLA CASPER 02/21/2023 14:43:31 Final Drugs that require complianc e testing:

Opioids:
Other hydrocodone and oxycodone

Benzodiazepines
None

Cutoff Concentrations:
Drug Level
Codeine 40 ng/mL
Morphine 40 ng/mL
Hydrocodone 40 ng/mL
Hydromorphone 40 ng/mL
Dihydrocodeine 40 ng/mL
Oxycodone 50 ng/mL
Oxymorphone 50 ng/mL

This test was developed and its performance characteristics determined by [facility]. It has not been cleared or approved by the [place] Food and Drug Administration. Observation Date Value Abnormality Reference (Units ) Status METHODOLOGY 02/21/2023 14:43:31 LC-MS/MS Final Codeine 02/21/2023 14:43:31 Negative Negative Final Morphine, Urine confirmatory 02/21/2023 14:43:31 Negative Negative Final HYDROcodone cutoff [Mass/volume] in Urine for Confirmatory method 02/21/2023 14:43:31 Negative Negative Final Hydromorphone, Urine confirmatory 02/21/2023 14:43:31 784 Above high normal Negative (ng/mL) Final Dihydrocodeine [Mass/volume] in Urine by Confirmatory method 02/21/2023 14:43:31 Negative Negative Final oxyCODONE cutoff [Mass/volume] in Urine for Confirmatory method 02/21/2023 14:43:31 >4000 Above high normal Negative (ng/mL) Final oxyMORphone cutoff [Mass/volume] in Urine for Confirmatory method 02/21/2023 14:43:31 409 Above high normal Negative (ng/mL) Final Performing Location LABORATORY [facility] - [facility] [address] [facility] [address]
--- OUTSIDE RECORDS SUMMARY | 2023-05-24 01:56 | External Medical Summary ---
Author Name Unknown Address Unknown Organization : Laboratory Report Ordering Provider Test Date Status NATALIE JOHN 03/08/2023 13:14:29 Final Observation Date Value Abnormality Reference (Units ) Status Everolimus [Mass/volume] in Blood 03/08/2023 13:14:29 7.8 (ng/mL) Final Unable to flag abnormal result(s), please refer
to reference range(s) below:
Trough: 3.0 - 8.0 ng/mL for Transplantation
Trough: 5.0 - 10.0 ng/mL for Oncology/Neurology
Symptoms of toxicity are more likely to occur at
trough levels exceeding 12.0 ng/mL.
This test was developed and its analytical performance
characteristics have been determined by [facility] [place], [place]. It has
not been cleared or approved by the U.S. Food and Drug
Administration. This assay has been validated pursuant
to the CLIA regulations and is used for clinical
purposes.

Test Performed at:
[email or web address]
[address] [facility]
[place], [place]
Emory Amador M.D., Ph.D.,Director of Laboratories Performing Location
--- OUTSIDE RECORDS SUMMARY | 2023-05-24 01:56 | External Medical Summary | Summary of Care ---
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 Role Phone August Esposito MD Primary Care Provider + Reason for Visit * Reason Comments Outpatient Testing Encounter Details Date Type Department Care Team (Latest Contact Info) Description 02/21/2023 2:40 PM EDT Laboratory Laboratory [facility] [place] [address] [place] [address] [place], [facility] [address] [place] [address] Encounter for long-term (current) use of other [...] 30 Tablet 12 12/02/2021 Active Litetouch Pen [place] 31G X 8 MM (Insulin Pen Needle)Indications:T [...] group C, by GOLD 2017 classification ([facility]) Inhale 1 Puff by mouth in [...] with long-term current use of insulin ([facility]) Use to check sugars 4 times [...] with single episode, in partial remission ([facility]) Take 1 Tablet by mouth in the morning. 90 Tablet 1 01/11/2023 Active Polyethylene Glycol 3350 17 GM/SCOOP Oral PowderIndications:Co nstipation, unspecified constipation type Take 17 g by mouth as needed for Constipation. Dissolve one heaping tablespoon in 8 ounces of water or juice. 17 g 0 01/11/2023 Active predniSONE 5 MG Oral Tablet (Deltasone)Indicatio ns:Lung transplant status ([facility]) Take 1 Tablet by mouth in [...] Tixagevimab inj 300 mgIndications:Lung transplant status ([facility]) 300 mg IM [id number] 01/21/2022 Active Cilgavimab inj 300 mgIndications:Lung transplant status ([facility]) 300 mg IM [id number] 01/21/2022 Active documented as of this encounter [...] 0 01/02/2020 Bradycardia 09/10/2019 Overview: On beta deiis Lung transplant status 08/31/2019 Overview: 07/2019 COPD, group C, by GOLD 2017 classification 10/09 Overview: Per COPD GOLD Classification PFO (patent foramen ovale) 09/01/2018 History of pulmonary embolism 02/11/2017 H/O lymphoma 02/11/2017 Hypoxemia 09/28/2012 Type 2 diabetes mellitus wit h hemoglobin A1c goal of less than 7.0% 06/21/2012 Overview: ICD-10 update of inactive term Pain medication agreement 04/18/2012 Overview: Signed 04/18/12 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 2010 caused arthralgias. [...] HX- NONHODGKIN'S LYMPHOMA 07/21/2009 Overview: Sep 2008, [facility], received 3 doses of chemo, remission COPD exacerbation 01/09/2009 12/16/2009 COPD, severity to be determined 01/09/2009 04/13/2011 Overview: 06/05/10: 4 LPM 24hrs/day. 07/26/09: Failed 2 step at [facility], 2 LPM 24 hr/day 07/15/09: [...] 0 Overview: chronic back pain - sees [facility] Pain Management Other malignant lymphomas, u nspecified site, extranodal and solid organ sites 011 Overview: NHL- Sep 2008 at [facility] Dr Caceres Major depressive disorder Overview: ICD-10 update of inactive term Other malignant lymphomas, u nspecified site, extranodal and solid organ sites 018 Overview: NHL- Sep 2008 at [facility] Caceres documented as of this encounter (statuses as of 02/21/2023) Immunizations Name Administration Dates Next Due COVID-19 mRNA, LNP-s, No Pre serve, 2-Dose Series (Moderna) 01/24/2021,07/03/2020,05/31/2020 Covid-19, Mrna, Lnp-s, Pf, B ivalent, 30 Mcg, IM, 12 yrs and above (s0cket) 04/21/2022 H1N1 2009 Influenza, IM 06/11/2009 Hepatitis [...] 05/31/2023 2:00 PM EST Office Visit Pharmacy, [facility] [address] [facility] [place] [address] [facility] [address] [place] [address] 07/20/2023 2:00 PM EDT Office Visit Neurology [facility] [address] [facility] [place] [address] Alva Contreras PA-C [address] [facility] [place] [address] 07/26/2023 2:40 PM EDT Office Visit General Internal Medicine [facility] [address] [facility] [place] [address] August Esposito MD [address] [facility] [place] [address] Pending Results Name Type Priority Associated Diagnoses Date /Time BASIC METABOLIC PANEL Lab Routine Encounter for long-term (current) use of other medications Hypomagnesemia Status post lung transplantation ([facility]) 02/21/2023 2:34 PM EDT MAGNESIUM Lab Routine Encounter for long-term (current) use of other medications Hypomagnesemia Status post lung transplantation ([facility]) 02/21/2023 2:34 PM EDT TACROLIMUS LEVEL Lab Routine Encounter for long-term (current) use of other medications Hypomagnesemia Status post lung transplantation ([facility]) 02/21/2023 2:34 PM EDT EVEROLIMUS, LC/MS/MS, BLOOD Lab Routine Encounter for long-term (current) use of other medications Hypomagnesemia Status post lung transplantation ([facility]) 02/21/2023 2:34 PM EDT CYTOMEGALOVIRUS DNA, QUANTITATIVE REAL-TIME PCR Lab Routine Encounter for long-term (current) use of other medications Hypomagnesemia Status post lung transplantation ([facility]) 02/21/2023 2:34 PM EDT PAIN MANAGEMENT DRUG [...] Additional history exists CKD PHOS USE SMARTSET 75166 11/16/202310/30, 11/08/2022, 05/10/2022, Additional history exists COLONOSCOPY-EVERY 5 YRS AGES 18-100 11/18/2023 11/17/2018 Depression Screening 01/12/2024 01/11/2023, 02/22/20 15 O2 ASSESSMENT COMPLETED IN PAST YEAR FOR COPD 01/12/2024 01/11/2023, 05/24/2014 (Course Completed) CKD HGB USE SMARTSET 70880 02/01/202402/21, 02/21/2023, 01/31/2023, Additional history exists Lipid Panel [...] this encounter Medical Devices Implanted Type Area Supervisor Shipping Device Identifier Shelf Expiration Date Model / Serial / Lot Lens Intraoc 21.5 - [id number] - [id number] Implanted:Qty: 1 on 06/10/2020 by Pietro Nuñez MD at OR [facility] Right: Eye [employer]OM[employer] 12/30/2024 [id number] / [id number] / [id number] Lens Intraoc 21.5 - [id number] - [id number] Implanted:Qty: 1 on 06/24/2020 by Pietro Nuñez MD at OR [facility] Left: Eye BAUSCH [employer] LOMB 01/29/2025 [id number] / [id number] / [id number] documented as of this encounter Procedures Procedure Name Priority Date/Time Associated Diagnosis Comments DIFFERENTIAL, AUTOMATED Routine 02/21/2023 2:34 PM EDT Encounter for long-term (current) use of other medications Hypomagnesemia Status post lung transplantation (HCC) CBC Routine 02/21/2023 2:34 PM EDT Encounter for long-term (current) use of other medications Hypomagnesemia Status post lung transplantation (HCC) CBC Routine 02/21/2023 2:34 PM EDT Encounter for long-term (current) use of other medications Hypomagnesemia Status post lung transplantation (HCC) documented in this encounter Results * (ABNORMAL) DIFFERENTIAL, AUTOMATED (02/21/2023 2:34 PM EDT) WBC 5.99 4.00 - 10.80 K/uL 02/21/2023 2:48 PM EDT [facility] 56-02 Neutrophils % 83.6(H) 40.0 - 75.0 % 02/21/2023 2:48 PM EDT [facility] 56-02 Lymphocytes % 8.0(L) 18.0 - 42.0 % 02/21/2023 2:48 PM EDT [facility] 56- Monocytes % 7.2 1.0 - 11.0 % 02/21/2023 2:48 PM EDT [facility] 56- Eosinophils % 0.5 0.0 - 6.0 % 02/21/2023 2:48 PM EDT [facility] 56- Basophils % 0.7 0.0 - 2.0 % 02/21/2023 2:48 PM EDT [facility] 56- Absolute Neutrophils 5.01 1.80 - 7.70 K/uL 02/21/2023 2:48 PM EDT [facility] 56-02 Absolute Lymphocytes 0.48(L) 1.00 - 4.80 K/ul 02/21/2023 2:48 PM EDT [facility] 56-02 Absolute Monocytes 0.43 0.00 - 1.10 K/uL 02/21/2023 2:48 PM EDT [facility] 56-02 Absolute Eosinophils 0.03 0.00 - 0.70 K/uL 02/21/2023 2:48 PM EDT [facility] 56-02 Absolute Basophils 0.04 0.00 - 0.20 K/uL 02/21/2023 2:48 PM EDT [facility] 56-02 Blood Venous blood specimen / Unknown Venipuncture / Unknown 02/21/2023 2:34 PM EDT 02/21/2023 2:34 PM EDT Katya Brand MD LAB BLOOD ORD ERABLES [facility] [address] [place] [address] * (ABNORMAL) CBC (02/21/2023 2:34 PM EDT) WBC 5.99 4.00 - 10.80 K/uL 02/21/2023 2:48 PM EDT [facility] 56 RBC 3.60 3.85 - 5.15 M/uL 02/21/2023 2:48 PM EDT [facility] 56 HGB 10.6(L) 12.0 - 15.3 g/dL 02/21/2023 2:48 PM EDT [facility] 56 HCT 32.4(L) 36.0 - 45.2 % 02/21/2023 2:48 PM EDT [facility] 56 MCV 90.0 81.5 - 97.5 fL 02/21/2023 2:48 PM EDT [facility] 56 MCH 29.4 27.0 - 34.0 pg 02/21/2023 2:48 PM EDT [facility] 56 MCHC 32.7 32.0 - 36.0 g/dL 02/21/2023 2:48 PM EDT [facility] 56 RDW 14.9 11.5 - 15.5 % 02/21/2023 2:48 PM EDT [facility] 56 PLT 162 140 - 400 K/uL 02/21/2023 2:48 PM EDT [facility] 56 MPV 8.6 6.6 - 11.1 fL 02/21/2023 2:48 PM EDT [facility] 56 Blood Venous blood specimen / Unknown Venipuncture / Unknown 02/21/2023 2:34 PM EDT 02/21/2023 2:34 PM EDT Katya Brand MD LAB BLOOD ORD ERABLES [address] [place] [address] documented in this encounter Visit Diagnoses Diagnosis Encounter for long-term (current) use of other medications Hypomagnesemia 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
--- OUTSIDE RECORDS SUMMARY | 2023-05-24 01:56 | External Medical Summary ---
Author Name Unknown Address Unknown Organization K01:LABORATORY [facility] - [address] [place] [address] Laboratory Report Ordering Provider Test Date Status NATALIE JOHN 03/08/2023 13:14:29 Final Test performed by [facility]. Therapeutic ranges vary with type of transplant, time post-transplant, clinical protocols, and testing methodology. Results should be interpreted with clinical presentation and any signs rejection/toxicity. Observation Date Value Abnormality Reference (Units ) Status Tacrolimus (FK506) 03/08/2023 13:14:29 6.8 4 .0-12.0 (ng/mL) Final Performing Location LABORATORY [facility] - [address] [place] [address]
--- OUTSIDE RECORDS SUMMARY | 2023-05-24 01:56 | External Medical Summary ---
Author Name Unknown Address Unknown Organization K09:[facility] [place] [address] Laboratory Report Ordering Provider Test Date Status NATALIE JOHN 02/21/2023 14:34:49 Final Observation Date Value Abnormality Reference (Units ) Status WBC, Total 02/21/2023 14:34:49 5.99 4.00-10.8 0 (K/uL) Final RBC 02/21/2023 14:34:49 3.60 3.85-5.15 (M/uL) Final Hemoglobin 02/21/2023 14:34:49 10.6 Below low normal 12 .0-15.3 (g/dL) Final HCT 02/21/2023 14:34:49 32.4 Below low normal 36. 0-45.2 (%) Final MCV 02/21/2023 14:34:49 90.0 81.5-97.5 (fL) Final MCH 02/21/2023 14:34:49 29.4 27.0-34.0 (pg) Final MCHC 02/21/2023 14:34:49 32.7 32.0-36.0 (g/dL) Final RDW 02/21/2023 14:34:49 14.9 11.5-15.5 (%) Final Platelets 02/21/2023 14:34:49 162 140-400 (K /uL) Final MPV 02/21/2023 14:34:49 8.6 6.6-11.1 ( fL) Final Performing Location [facility] [place] [address]
--- OUTSIDE RECORDS SUMMARY | 2023-05-24 01:56 | External Medical Summary ---
Author Name Unknown Address Unknown Organization K09:[facility] [address] Laboratory Report Ordering Provider Test Date Status NATALIE JOHN 03/08/2023 13:14:29 Final Observation Date Value Abnormality Reference (Units ) Status WBC, Total 03/08/2023 13:14:29 6.72 4.00-10.8 0 (K/uL) Final RBC 03/08/2023 13:14:29 3.62 3.85-5.15 (M/uL) Final Hemoglobin 03/08/2023 13:14:29 10.6 Below low normal 12 .0-15.3 (g/dL) Final HCT 03/08/2023 13:14:29 32.9 Below low normal 36. 0-45.2 (%) Final MCV 03/08/2023 13:14:29 90.9 81.5-97.5 (fL) Final MCH 03/08/2023 13:14:29 29.3 27.0-34.0 (pg) Final MCHC 03/08/2023 13:14:29 32.2 32.0-36.0 (g/dL) Final RDW 03/08/2023 13:14:29 14.3 11.5-15.5 (%) Final Platelets 03/08/2023 13:14:29 149 140-400 (K /uL) Final MPV 03/08/2023 13:14:29 8.8 6.6-11.1 ( fL) Final Performing Location [facility] [place] [address]
--- OUTSIDE RECORDS SUMMARY | 2023-05-24 01:56 | External Medical Summary ---
Author Name Unknown Address Unknown Organization K09:[facility] [place] [address] Laboratory Report Ordering Provider Test Date Status NATALIE JOHN 03/08/2023 13:14:29 Final Observation Date Value Abnormality Reference (Units ) Status SYNC LEUKOCYTES IN BLOOD BY AUTOMATED COUNT 03/08/2023 13:14:29 6.72 4.00-10.80 (K/uL) Final Segs 03/08/2023 13:14:29 84.4 Above high normal 40.0-75.0 (%) Final Lymphs % 03/08/2023 13:14:29 7.3 Below low normal 18.0-42.0 (%) Final Monos 03/08/2023 13:14:29 7.0 1.0-11.0 (%) Final Eosinophils 03/08/2023 13:14:29 0.6 0.0-6.0 (%) Final Basos 03/08/2023 13:14:29 0.7 0.0-2.0 (%) Final Absolute Segs 03/08/2023 13:14:29 5.67 1.80-7.70 (K/uL) Final Lymphs, absolute 03/08/2023 13:14:29 0.49 Below low normal 1.00-4.80 (K/ul) Final Monos, Abs 03/08/2023 13:14:29 0.47 0.00-1.10 (K/uL) Final Eos, Abs 03/08/2023 13:14:29 0.04 0.00-0.70 (K/uL) Final Basos, Abs 03/08/2023 13:14:29 0.05 0.00-0.20 (K/uL) Final Performing Location [facility] [place] [address]
--- OUTSIDE RECORDS SUMMARY | 2023-05-24 01:56 | External Medical Summary ---
Author Name Unknown Address Unknown Organization K01:[facility] [place] - [address] [address] Laboratory Report Ordering Provider Test Date Status VILLA CASPER 02/21/2023 14:43:31 Final Drugs that require complianc e testing:

Opioids:
Other hydrocodone and oxycodone

Benzodiazepines
None

Cutoff Concentrations:
Drug Level
Amphetamines 500 ng/mL
Benzodiazepines 100 ng/mL
Cannabinoids 50 ng/mL
Cocaine Metabolite 150 ng/mL
Fentanyl 1 ng/mL
Hydrocodone / Hydromorphone 300 ng/mL
Methadone Metabolite 100 ng/mL
Morphine / Codeine 300 ng/mL
Oxycodone / Oxymorphone 100 ng/mL

Screening results are presumptive and can only be used for medical purposes. Confirmatory testing is available upon request. Observation Date Value Abnormality Reference (Units) Status COMPLIANCE INTERPRETATION 02/21/2023 14:43:31 Based on the medication information provided and from Epic: Final COMPLIANCE INTERPRETATION 02/21/2023 14:43:31 The presence of hydromorphone, oxycodone and oxymorphone is CONSISTENT with hydromorphone and oxycodone use. Final Changed Report: Previously r eported on 02/22/2023 at 1125 EDT. See Results History in [facility] for previous versions of the report. Amphetamines, Urine screen 02/21/2023 14:43:31 Negative Negative Final Benzodiazepines, Urine screen 02/21/2023 14:43:31 Negative Negative Final Cannabinoids, Urine screen 02/21/2023 14:43:31 Negative Negative Final Cocaine Metabolite, Urine screen 02/21/2023 14:43:31 Negative Negative Final fentaNYL [Presence] in Urine by Screen method 02/21/2023 14:43:31 Negative Negative Final HYDROcodone [Presence] in Urine by Screen method 02/21/2023 14:43:31 Refer to confirmation results Abnormal Negative Final Changed result: Previously r eported as Positive on 02/22/2023 at 1125 EDT. 1-Aibpoxdmtv-3,1-Fdzrzpxs-1, 3-Diphenylpyrrolidine (EDDP) [Presence] in Urine 02/21/2023 14:43:31 Negative Negative Final Opiates, Urine screen 02/21/2023 14:43:31 Refer to confirmat ion results A b n o r m a l Negative Final oxyCODONE [Presence] in Urine by Screen method 02/21/2023 14:43:31 Refer to confirmat ion results A b n o r m a l Negative Final Changed result: Previously r eported as Positive on 02/22/2023 at 1125 EDT. FORENSIC VALID INTERPRETATION 02/21/2023 14:43:31 Normal Final Creatinine, Urine 02/21/2023 14:43:31 226 (m g/dL) Final Performing Location [facility] [place] - [facility] [address] [facility] [address]
--- OUTSIDE RECORDS SUMMARY | 2023-05-24 01:56 | External Medical Summary ---
Author Name Unknown Address Unknown Organization K01:[facility] [place] [address] [place] [address] Laboratory Report Ordering Provider Test Date Status DORACALVINDELORES 03/08/2023 13:09:00 Final Observation Date Value Abnormality Reference (Units) Status Cytomegalovirus DNA [Presence] in Serum or Plasma by with probe detection 03/08/2023 13:09:00 CMV DNA not detected CMV DNA not detected Final Performing Location [facility] [place] [address] [place] [address]
--- OUTSIDE RECORDS SUMMARY | 2023-05-24 01:56 | External Medical Summary ---
Author Name Unknown Address Unknown Organization : Laboratory Report Ordering Provider Test Date Status NATALIE JOHN 02/21/2023 14:34:49 Final Observation Date Value Abnormality Reference (Units ) Status Everolimus [Mass/volume] in Blood 02/21/2023 14:34:49 6.3 (ng/mL) Final Unable to flag abnormal result(s), please refer
to reference range(s) below:
Trough: 3.0 - 8.0 ng/mL for Transplantation
Trough: 5.0 - 10.0 ng/mL for Oncology/Neurology
Symptoms of toxicity are more likely to occur at
trough levels exceeding 12.0 ng/mL.
This test was developed and its analytical performance
characteristics have been determined by [facility] [place], [place]. It has
not been cleared or approved by the U.S. Food and Drug
Administration. This assay has been validated pursuant
to the CLIA regulations and is used for clinical
purposes.

Test Performed at:
[facility]
[address] [facility] [place] [address]
Emory Amador M.D., Ph.D.,Director of Laboratories Performing Location
--- OUTSIDE RECORDS SUMMARY | 2023-05-24 01:56 | External Medical Summary ---
Author Name Unknown Address Unknown Organization K01:[facility] [place] [address] [place] [address] Laboratory Report Ordering Provider Test Date Status NATALIE JOHN 02/21/2023 14:34:49 Final Test performed by Immunoassa [facility] on [employer]. Therapeutic ranges vary with type of transplant, time post-transplant, clinical protocols, and testing methodology. Results should be interpreted with clinical presentation and any signs rejection/toxicity. Observation Date Value Abnormality Reference (Units ) Status Tacrolimus (FK506) 02/21/2023 14:34:49 4.8 4 .0-12.0 (ng/mL) Final Performing Location [facility] [place] [address] [place] [address]
--- OUTSIDE RECORDS SUMMARY | 2023-05-24 01:56 | External Medical Summary | Summary of Care ---
Author Name Unknown Organization [facility] Address [address] [place] [address] Phone [phone] Care Team Providers Care Aniline Press Worker Name Role Phone August Esposito MD Primary Care Provider + Encounter Details Date Type Department Care Team Description 02/09/2023 Orders Only General Internal Medicine [facility] [place] [address] [place] [address] August Esposito MD [address] [place] [address] Allergies Active Allergy Reactions Severity Noted Date Comments Pollen 01/02/2020 Other reaction(s): Sneezing (finding) documented as of this encounter (statuses as of 02/09/2023) Medications Medication Sig Dispensed Refills Start Date End Date Status BD INSULIN SYR ULTRAFINE II 31G X 09/14" 0.5 ML MISCIndications:DM type 2, goal A1c [...] 30 Tablet 12 12/02/2021 Active Litetouch Pen [place] 31G X 8 MM (Insulin Pen Needle)Indications:T ype 2 diabetes mellitus with hemoglobin A1c goal of less than 7.0% ([facility]) USE WITH INSULIN 3 TIMES A DAY WITH MEALS. 100 Each 5 01/07/2022 Active Insulin Lispro (1 Unit Dial) 100 UNIT/ML Subcutaneous Solution Pen-injector (Admelog)Indications :Type 2 diabetes mellitus with hemoglobin A1c goal of less than 7.0% ([facility]) Inject under the skin 8 Units three times a day with meals . Hold if meal will be missed 9 mL 2 02/04/2022 Active Accu-Chek Softclix LancetsIndications:T ype 2 diabetes mellitus with hemoglobin A1c goal of less than 7.0% ([facility]) Test one time daily. Dx: E11.9 100 Each 3 04/04/2022 Active Insulin Glargine Solostar 100 UNIT/ML Subcutaneous Solution Pen-injector (Lantus SoloStar)Indications :Type 2 diabetes mellitus with hemoglobin A1c goal of less than 7.0% ([facility]) Inject 15 Units under the skin [...] mgIndications:Lung transplant status (HCC) 300 mg IM [id number] 01/21/2022 Active Cilgavimab inj 300 mgIndications:Lung transplant status (HCC) 300 mg IM [id number] 01/21/2022 Active documented as of this encounter (statuses as of 02/09/2023) Active Problems Problem Noted Date History of CVA in adulthood 11/22/2022 Chronic bilateral back pain 07/05/2022 Mild dementia with mood disturbance 06/02 Immunosuppressed status 06/10/2021 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, in partial remission 06/10/2021 Type 2 diabetes mellitus wit h stage 3b chronic kidney disease, with long-term current use of insulin 06/10/2021 History of DVT (deep vein thrombosis) Gastroparesis 02/02/2021 Chronic kidney disease, stage 3b 021 Overview: Per CKD protocol Type 2 diabetes mellitus with stage 3b c hronic kidney disease 09/09/2020 Overview: Per CKD protocol Benign hypertension with stage 3b chroni c kidney disease 09/09/2020 Overview: Per CKD protocol Tracheal stenosis 08/18/2020 Pulmonary HTN 07/10/2020 Hypertension goal BP (blood pressure) < 140/90 01/02/2020 Bradycardia 09/10/2019 Overview: On beta deisi Lung transplant status 08/31/2019 Overview: 07/2019 COPD, group C, by GOLD 2017 classificati on 10/09/2018 Overview: Per COPD GOLD Classification PFO (patent foramen ovale) 09/01/2018 History of pulmonary embolism 02/11/2017 H/O lymphoma 02/11/2017 Hypoxemia 09/28/2012 Type 2 diabetes mellitus with hemoglobin A1c goal of less than 7.0% 06/21/2012 Overview: ICD-10 update of inactive term Pain medication agreement 04/18/2012 Overview: Signed 04/18/12 Wogjv-3-ylfmmkgykhu deficiency 1 Overview: Prolastin 60mg/kg started 06/07/11, weekly via [facility]. Zamaira given fall 2010 caused arthralgias. 08/28/10 - <30 10/12/08 - MM allele 08/22/08 - 232 Proteinuria 10/08/2009 History of tobacco use 09/10/2009 Chronic rhinitis 09/10/2009 Esophageal reflux Disc disorder of lumbar region Overview: has had multiple surgeries - now w/ chronic back pain from postlaminectomy syndrome documented as of this encounter (statuses as of 02/09/2023) Resolved Problems Problem Noted Date Resolved Date Type 2 diabetes mellitus wit h stage 4 chronic kidney disease, with long-term current use of insulin 06/11/2022 023 Protein-calorie malnutrition 10/21/202101/2023 Mild dementia 06/10/2021 11/22/2022 Memory loss 09/26/2020 06/11/2022 Benign hypertension with CKD (chronic kidney disease) stage III 07/10/2020 09/11/2020 Overview: Per CKD protocol Diabetes mellitus with stage 3 chronic kidney di sease 06/09/2020 09/11/2020 Overview: Per CKD protocol Chronic hypoxemic respiratory failure 02/11/2017 09/10/2019 COPD, severe 08/20/2016 10/11/2018 Overview: Per COPD GOLD Classification DNR (do not resuscitate) 03/24/2016 020 Kidney disease, chronic, stage III (GFR 30-59 ml /min) 07/15/2014 06/12/2020 Overview: Per CKD protocol #1 HTN, goal below 140/80 12/20/2011 3 Overview: Per HTN Protocol #27. Type 2 diabetes mellitus wit h hemoglobin A1c goal of less than 7.0% 05/04/2011 05/04/2011 Overview: ICD-10 update of inactive term HTN, goal below 130/80 05/04/2011 2 Overview: Per HTN Protocol #27. Type 2 diabetes mellitus wit h hemoglobin A1c goal of 7.0%-8.0% 05/04/2011 06/21/2012 Overview: ICD-10 update of inactive term Vomiting 01/08/2011 02/11/2017 Overview: ICD-10 update of inactive term COPD, moderate 11/16/2010 08/20/2016 Actinomycotic infection of other specified sites 06/25/2010 12/06/2018 Overview: 05/26/10 -- per blood culture, f/u with Dr. Olvera Glycosuria 10/08/2009 01/05/2012 Other specified forms of hearing loss 09/10/2009 12/16/2009 Other voice and resonance disorders 09/10/2009 12/16/2009 Chronic laryngitis 09/10/2009 12/16/2009 Other pulmonary embolism and infarction 09/06/19 10 02/11/2017 Anticoagulation management encounter 09/05/2009 11/12/2016 Thrush 08/21/2009 12/16/2009 Hypoxemia 07/31/2009 12/16/2009 Overview: 2 LPM - 24 hrs/day HX- NONHODGKIN'S LYMPHOMA 07/21/20092009 Overview: Sep 2008, [facility], received 3 doses of chemo, remission COPD exacerbation 01/09/2009 12/16/2009 COPD, severity to be determined 01/09/2009 04/13/2011 Overview: 06/05/10: 4 LPM 24hrs/day. 07/26/09: Failed 2 step at [facility], 2 LPM 24 hr/day 07/15/09: Nocturnal pulse ox normal on RA 12/30/08 PFT -- FVC 2.64 L or 62%, FEV1 1.65 L or 70%. Mild obstruction, mild improvement post bronchodilator, mild hyperinflation, mild decrease in diffusion capacity. WEIGHT LOSS, ABNORMAL 01/12/2005 01/05/2012 ADVANCE DIRECTIVE INFORMATION 01/08/2005 Overview: No, Advance Directive brochure given to patient. Other chronic pain 12/16/2009 Overview: chronic back pain - sees [facility] Pain Management Other malignant lymphomas, u nspecified site, extranodal and solid organ sites 11/03/2010 Overview: [place]- Sep [place] [facility] Major depressive disorder 2022 Overview: ICD-10 update of inactive term Other malignant lymphomas, u nspecified site, extranodal and solid organ sites 10/05/2017 Overview: NHL- Sep [place] [facility] documented as of this encounter (statuses as of 02/09/2023) Immunizations Name Administration Dates Next Due COVID-19 [...] drink = 0.6 oz pur e alcohol) Food Insecurity Answer Date Recorded Within the past 12 months, y ou worried that your food would run out before you got money to buy more. Never true 04/09/2020 Within the past 12 months, t he food you bought just didn't last and you didn't have money to get more. Never true 04/09/2020 Sex Assigned at Date Recorded Female 11/10/2018 1:00 PM E DT Job Start Date Occupation Industry Not on file Not on file Not on file documented as of this encounter Plan of Treatment Upcoming Encounters Date Type Specialty Care Team Description 05/31/2023 Office Visit Pharmacy [facility] [address] [facility] [place] [address] 07/20/2023 Office Visit Neurology Alva Contreras PA-C [address] [facility] [place], [place] [address] 07/26/2023 Office Visit Internal Medicine August Esposito MD [address] [place] [address] Scheduled Procedures Name Priority Associated Diagnoses Date/Ti [...] Additional history exists CKD PHOS USE SMARTSET 62439 11/16/202310/30, 11/08/2022, 05/10/2022, Additional history exists COLONOSCOPY-EVERY 5 YRS AGES 18-100 11/18/2023 11/17/2018 Depression Screening 01/12/2024 01/11/2023, 02/22/20 15 O2 ASSESSMENT COMPLETED IN PAST YEAR FOR COPD 01/12/2024 01/11/2023, 05/24/2014 (Course Completed) CKD HGB USE SMARTSET 40358 02/01/202401/31, 01/31/2023, 01/25/2023, Additional history exists Lipid [...] this encounter Medical Devices Implanted Type Area Pin Machine Tender Device Identifier Shelf Expiration Date Model / Serial / Lot Lens Intraoc 21.5 - [id number] - [id number] Implanted:Qty: 1 on 06/10/2020 by Pietro Nuñez MD at [facility] Right: Eye [employer] 12/30/2024 [id number] / [id number] / [id number] Lens Intraoc 21.5 - [id number] - [id number] Implanted:Qty: 1 on 06/24/2020 by Pietro Nuñez MD at OR [facility] Left: Eye [employer] 01/29/2025 [id number] / [id number] / [id number] documented as of this encounter Procedures Procedure Name Priority Date/Time Associated Diagnosis Comments FVC SCREENING SPIROMETRY Routine 01/06/2023 documented in this encounter Results * FVC SCREENING SPIROMETRY (01/06/2023) 01/06/2023 Katya Brand MD MEDICINE OUTSIDE LAB (SEE SCANNED REPORT) documented in this encounter Care Teams Aniline Press Worker Relationship Specialty Start Date End Date August Esposito MD [address] [place] [address] PCP - General Internal Medicine 12/13/11 documented as of this encounter
--- OUTSIDE RECORDS SUMMARY | 2023-05-24 01:56 | External Medical Summary ---
Author Name Unknown Address Unknown Organization K09:[facility] [place] [address] Laboratory Report Ordering Provider Test Date Status PAOLA CHOWDHURY 03/08/2023 13:14:29 Final Observation Date Value Abnormality Reference (Units ) Status Albumin 03/08/2023 13:14:29 3.9 3.8-5.0 (g/dL) Final AST (Aspartate aminotransferase) 03/08/2023 13:14:29 26 10-35 (U/L) Final Alk Phos 03/08/2023 13:14:29 83 35-130 (U/L) Final ALT (Alanine aminotransferase) 03/08/2023 13:14:29 11 10-35 (U/L) Final Bilirubin, Total 03/08/2023 13:14:29 0.2 <=1.2 (mg/dL) Final Bilirubin, Direct 03/08/2023 13:14:29 <0.2 0.0-0.3 (mg/dL) Final Protein 03/08/2023 13:14:29 6.3 6.0-8.3 (g/dL) Final Performing Location [facility] [place] [address]
--- OUTSIDE RECORDS SUMMARY | 2023-05-24 01:56 | External Medical Summary ---
Author Name Unknown Address Unknown Organization K09:[facility] [place] [address] Laboratory Report Ordering Provider Test Date Status NATALIE JOHN 03/08/2023 13:14:29 Final Observation Date Value Abnormality Reference (Units ) Status Magnesium 03/08/2023 13:14:29 2.0 1.5-2.6 (m g/dL) Final Performing Location [facility] [place] [address]
--- OUTSIDE RECORDS SUMMARY | 2023-05-24 01:56 | External Medical Summary ---
Author Name Unknown Address Unknown Organization K09:[facility] [place] [address] Laboratory Report Ordering Provider Test Date Status NATALIE JOHN 03/08/2023 13:14:29 Final Observation Date Value Abnormality Reference (Units ) Status BUN 03/08/2023 13:14:29 36 Above high normal 6-20 (mg/dL) Final Creatinine 03/08/2023 13:14:29 2.8 Above high normal 0.5-1.0 (mg/dL) Final Glomerular filtration rate/1.73 sq M.predicted [Volume Rate/Area] in Serum, Plasma or Blood by Creatinine-based formula (CKD-EPI) 03/08/2023 13:14:29 18 Below low normal >=60 (mL/min) Final eGFR is calculated based on the CKD-EPI 2020 equation SODIUM 03/08/2023 13:14:29 141 135-146 (m mol/L) Final Potassium 03/08/2023 13:14:29 5.1 3.5-5.1 (m mol/L) Final Cl 03/08/2023 13:14:29 106 98-107 (mm ol/L) Final CO2 03/08/2023 13:14:29 25 22-32 (mmo l/L) Final Anion gap 03/08/2023 13:14:29 10 7-15 (mmol /L) Final Glucose 03/08/2023 13:14:29 145 Above high normal 70 -120 (mg/dL) Final Calcium 03/08/2023 13:14:29 9.5 8.4-10.2 ( mg/dL) Final Performing Location [facility] [place] [address]
--- OUTSIDE RECORDS SUMMARY | 2023-05-24 01:56 | External Medical Summary ---
Author Name Unknown Address Unknown Organization K09:[facility] [place] [address] Laboratory Report Ordering Provider Test Date Status NATALIE JOHN 02/21/2023 14:34:49 Final Observation Date Value Abnormality Reference (Units ) Status Magnesium 02/21/2023 14:34:49 1.9 1.5-2.6 (m g/dL) Final Performing Location [facility] [place] [address]
--- OUTSIDE RECORDS SUMMARY | 2023-05-24 01:56 | External Medical Summary ---
Author Name Unknown Address Unknown Organization K09:[facility] [place] [address] Laboratory Report Ordering Provider Test Date Status NATALIE JOHN 02/21/2023 14:34:49 Final Observation Date Value Abnormality Reference (Units ) Status BUN 02/21/2023 14:34:49 36 Above high normal 6-20 (mg/dL) Final Creatinine 02/21/2023 14:34:49 2.4 Above high normal 0.5-1.0 (mg/dL) Final Glomerular filtration rate/1.73 sq M.predicted [Volume Rate/Area] in Serum, Plasma or Blood by Creatinine-based formula (CKD-EPI) 02/21/2023 14:34:49 22 Below low normal >=60 (mL/min) Final eGFR is calculated based on the CKD-EPI 2020 equation SODIUM 02/21/2023 14:34:49 139 135-146 (m mol/L) Final Potassium 02/21/2023 14:34:49 4.8 3.5-5.1 (m mol/L) Final Cl 02/21/2023 14:34:49 105 98-107 (mm ol/L) Final CO2 02/21/2023 14:34:49 21 Below low normal 22- 32 (mmol/L) Final Anion gap 02/21/2023 14:34:49 13 7-15 (mmol /L) Final Glucose 02/21/2023 14:34:49 141 Above high normal 70 -120 (mg/dL) Final Calcium 02/21/2023 14:34:49 9.3 8.4-10.2 ( mg/dL) Final Performing Location [facility] [place] [address]
--- OUTSIDE RECORDS SUMMARY | 2023-05-24 01:57 | External Medical Summary ---
Author Name Unknown Address Unknown Organization K01:LABORATORY [facility] [place] - [address] [place] [address] Laboratory Report Ordering Provider Test Date Status NATALIE JOHN 01/31/2023 14:22:40 Final Test performed by Immunoassa y on [employer]. Therapeutic ranges vary with type of transplant, time post-transplant, clinical protocols, and testing methodology. Results should be interpreted with clinical presentation and any signs rejection/toxicity. Observation Date Value Abnormality Reference (Units ) Status Tacrolimus (FK506) 01/31/2023 14:22:40 6.2 4 .0-12.0 (ng/mL) Final Performing Location LAB[facility]ATORY [facility] [place] - [address] [place] [address]
--- OUTSIDE RECORDS SUMMARY | 2023-05-24 01:57 | External Medical Summary ---
Author Name Unknown Address Unknown Organization K09:[facility] [place] [address] Laboratory Report Ordering Provider Test Date Status NATALIE JOHN 01/31/2023 14:22:40 Final Observation Date Value Abnormality Reference (Units ) Status Magnesium 01/31/2023 14:22:40 1.9 1.5-2.6 (m g/dL) Final Performing Location [facility] [place] [address]
--- OUTSIDE RECORDS SUMMARY | 2023-05-24 01:57 | External Medical Summary | Summary of Care ---
Author Name Unknown Organization [facility] Address [address] [place] [address] Phone [phone] Care Team Providers Care Ward Assistant Name Role Phone August Esposito MD Primary Care Provider + Reason for Visit * Reason Comments Outpatient Testing Encounter Details Date Type Department Care Team Description 01/31/2023 Laboratory Laboratory [facility] [address] [place] [address] [facility] Scen[facility] [address] [place] [address] Encounter for long-term (current) use of other medications; Hypomagnesemia; Status post lung transplantation (HCC) Allergies Active Allergy Reactions Severity Noted Date Comments Pollen 01/02/2020 Other reaction(s): Sneezing (finding) documented as of this encounter (statuses as of 01/31/2023) Medications Medication Sig Dispensed Refills Start Date [...] 30 Tablet 12 12/02/2021 Active Litetouch Pen [place] 31G X 8 MM (Insulin Pen Needle)Indications:T [...] C, by GOLD 2017 classification ([facility]) Inhale 1 Puff by mouth in [...] long-term current use of insulin ([facility]) Use to check sugars 4 times [...] the morning. 90 Tablet 3 11/22/2022 Active HYDROmorphone HCl 2 MG Oral Tablet (Dilaudid)Indication s:Disc disorder of lumbar region Take 1 Tablet by mouth every 12 hours as needed for Pain, Severe. 60 Tablet 0 01/07/2023 Active oxyCODONE HCl ER 15 MG Oral Tablet ER 12 Hour Abuse-Deterrent (oxyCONTIN)Indicatio ns:Disc disorder of lumbar region Take 1 Tablet by mouth in the morning and 1 Tablet before bedtime. 60 Tablet 0 01/07/2023 Active Apixaban 2.5 MG Oral Tablet (Eliquis)Indications :History of recurrent deep vein thrombosis (DVT) Take 1 Tablet by mouth in the morning and 1 Tablet before bedtime. 60 Tablet 1 01/11/2023 Active Citalopram Hydrobromide 40 MG Oral Tablet (CeleXA)Indications: Major depressive disorder with single episode, in partial remission ([facility]) Take 1 Tablet by mouth in the morning. 90 Tablet 1 01/11/2023 Active Polyethylene Glycol 3350 17 GM/SCOOP Oral PowderIndications:Co nstipation, unspecified constipation type Take 17 g by mouth as needed for Constipation. Dissolve one heaping tablespoon in 8 ounces of water or juice. 17 g 0 01/11/2023 Active predniSONE 5 MG Oral Tablet (Deltasone)Indicatio ns:Lung transplant status ([facility]) Take 1 Tablet by mouth in the morning. TAKING 5mg DAILY. 90 Tablet 3 01/19/2023 Active Hospital, Clinic, or Other Facility Administered Medication Ordered Dose Route Frequency Start Date End Date Status Tixagevimab inj 300 mgIndications:Lung transplant status ([facility]) 300 mg IM [id number] 01/21/2022 Active Cilgavimab inj 300 mgIndications:Lung transplant status ([facility]) 300 mg IM [id number] 01/21/2022 Active documented as of this encounter (statuses as of 01/31/2023) Active Problems Problem Noted Date History of [...] Pain medication agreement 04/18/2012 Overview: Signed 04/18/12 Zuztp-2-bcfhghtjmqw deficiency 1 Overview: Prolastin 60mg/kg started 06/07/11, weekly via [facility]. Zamaira given fall 2010 caused arthralgias. 08/28/10 - <30 10/12/08 - MM allele 08/22/08 - 232 Proteinuria 10/08/2009 History of tobacco use 09/10/2009 Chronic rhinitis 09/10/2009 Esophageal reflux Disc disorder of lumbar region Overview: has had multiple surgeries - now w/ chronic back pain from postlaminectomy syndrome documented as of this encounter (statuses as of 01/31/2023) Resolved Problems Problem Noted Date Resolved Date [...] HX- NONHODGKIN'S LYMPHOMA 07/21/20092009 Overview: Sep 2008, [facility], received 3 doses of chemo, remission COPD [...] 12/16/2009 Overview: chronic back pain - sees [facility] Pain Management Other malignant lymphomas, u nspecified site, extranodal and solid organ sites 11/03/2010 Overview: NHL- Sep 2008 [address] [facility] Dr Caceres Major depressive disorder 2022 Overview: ICD-10 update of inactive term Other malignant lymphomas, u nspecified site, extranodal and solid organ sites 10/05/2017 Overview: NHL- Sep [address] [facility] Dr Caceres documented as of this encounter (statuses as of 01/31/2023) Immunizations Name Administration Dates Next Due COVID-19 [...] Care Team Description 05/31/2023 Office Visit [facility] [address] [facility] [place] [address] 07/20/2023 Office Visit Neurology Alva Contreras PA-C [address] [place] [place] [address] 07/26/2023 Office Visit Internal Medicine August Esposito MD [address] [place] [address] Pending Results Name Type Priority Associated Diagnoses Date /Time BASIC METABOLIC PANEL Lab Routine Encounter for long-term (current) use of other medications Hypomagnesemia Status post lung transplantation (HCC) 01/31/2023 2:22 PM EDT MAGNESIUM Lab Routine Encounter for long-term (current) use of other medications Hypomagnesemia Status post lung transplantation (HCC) 01/31/2023 2:22 PM EDT TACROLIMUS LEVEL Lab Routine Encounter for long-term (current) use of other medications Hypomagnesemia Status post lung transplantation (HCC) 01/31/2023 2:22 PM EDT EVEROLIMUS, LC/MS/MS, BLOOD Lab Routine Encounter for long-term (current) use of other medications Hypomagnesemia Status post lung transplantation ([facility]) 01/31/2023 2:22 PM EDT CYTOMEGALOVIRUS DNA, QUANTITATIVE REAL-TIME PCR Lab Routine Encounter for long-term (current) use of other medications Hypomagnesemia Status post lung transplantation ([facility]) 01/31/2023 2:22 PM EDT Scheduled Procedures Name Priority Associated [...] Zoster Vaccines (2 of 2) 09/16/2022 07/22/2022 Albumin/Creatinine Ratio 06/16/2023 023, 09/11/2019, 12/06/2018, Additional history exists HbA1c 06/16/2023 12/14/2022, 10/30, 06/16/2022, Additional history exists Diabetic Foot Exam 07/06/2023 07/05/2022, 0 06/10/2021, 07/10/2020, Additional history exists GFR 07/26/2023 01/25/2023, 12/31, 12/31/2022, Additional history exists CKD PHOS USE SMARTSET 90684 11/16/202310/30, 11/08/2022, 05/10/2022, Additional history exists COLONOSCOPY-EVERY 5 YRS AGES 18-100 11/18/2023 11/17/2018 Depression Screening 01/12/2024 01/11/2023, 02/22/20 15 O2 ASSESSMENT COMPLETED IN PAST YEAR FOR COPD 01/12/2024 01/11/2023, 05/24/2014 (Course Completed) CKD HGB USE SMARTSET 50294 01/26/202401/31, 01/31/2023, 01/25/2023, Additional history exists Lipid Panel 01/19/2028 01/18/2023, 11/30, 06/16/2022, Additional history exists DTaP,Tdap,and Td Vaccines (3 - Td or Tdap) 07/22/2032 07/22/2022, 01/05/2012 Hepatitis B Completed 12/06/2018, 0506/2018, 09/01/2018, Additional history exists COVID-19 Vaccine Completed 04/21/2022, , 07/03/2020, Additional history exists Pneumococcal Vaccine: 65+ Years [...] this encounter Medical Devices Implanted Type Area Technical Specialist Cytogenetics Device Identifier Shelf Expiration Date Model / Serial / Lot Lens Intraoc 21.5 - [id number] - [id number] Implanted:Qty: 1 on 06/10/2020 by Pietro Nuñez MD at OR [facility] Right: Eye [employer]OM[employer] 12/30/2024 [id number] / [id number] / [id number] Lens Intraoc 21.5 - [id number] - [id number] Implanted:Qty: 1 on 06/24/2020 by Pietro Nuñez MD at OR [facility] Left: Eye BAUSCH [employer] LOMB 01/29/2025 [id number] / [id number] / [id number] documented as of this encounter Procedures Procedure Name Priority Date/Time Associated Diagnosis Comments DIFFERENTIAL, AUTOMATED Routine 01/31/2023 2:22 PM EDT Encounter for long-term (current) use of other medications Hypomagnesemia Status post lung transplantation (HCC) CBC Routine 01/31/2023 2:22 PM EDT Encounter for long-term (current) use of other medications Hypomagnesemia Status post lung transplantation (HCC) CBC Routine 01/31/2023 2:22 PM EDT Encounter for long-term (current) use of other medications Hypomagnesemia Status post lung transplantation (HCC) documented in this encounter Results * (ABNORMAL) DIFFERENTIAL, AUTOMATED (01/31/2023 2:22 PM EDT) WBC 6.80 4.00 - 10.80 K/uL 01/31/2023 2:30 PM EDT [facility] 56-02 Neutrophils % 83.0(H) 40.0 - 75.0 % 01/31/2023 2:30 PM EDT [facility] 56-02 Lymphocytes % 8.2(L) 18.0 - 42.0 % 01/31/2023 2:30 PM EDT [facility] 56-02 Monocytes % 7.5 1.0 - 11.0 % 01/31/2023 2:30 PM EDT [facility] 56 Eosinophils % 0.9 0.0 - 6.0 % 01/31/2023 2:30 PM EDT [facility] 56 Basophils % 0.4 0.0 - 2.0 % 01/31/2023 2:30 PM EDT [facility] 56 Absolute Neutrophils 5.64 1.80 - 7.70 K/uL 01/31/2023 2:30 PM EDT [facility] 56 Absolute Lymphocytes 0.56(L) 1.00 - 4.80 K/ul 01/31/2023 2:30 PM EDT [facility] 56 Absolute Monocytes 0.51 0.00 - 1.10 K/uL 01/31/2023 2:30 PM EDT [facility] 56 Absolute Eosinophils 0.06 0.00 - 0.70 K/uL 01/31/2023 2:30 PM EDT [facility] 56 Absolute Basophils 0.03 0.00 - 0.20 K/uL 01/31/2023 2:30 PM EDT [facility] 56 Blood Venous blood specimen / Unknown Venipuncture / Unknown 01/31/2023 2:22 PM EDT 01/31/2023 2:23 PM EDT Katya Brand MD LAB BLOOD ORD ERABLES [facility] [address] [place] [address] * (ABNORMAL) CBC (01/31/2023 2:22 PM EDT) [facility] WBC 6.80 4.00 - 10.80 K/uL 01/31/2023 2:30 PM EDT [facility] 56 RBC 3.85 3.85 - 5.15 M/uL 01/31/2023 2:30 PM EDT [facility] 56 HGB 11.1(L) 12.0 - 15.3 g/dL 01/31/2023 2:30 PM EDT [facility] 56 HCT 34.8(L) 36.0 - 45.2 % 01/31/2023 2:30 PM EDT [facility] 56 MCV 90.4 81.5 - 97.5 fL 01/31/2023 2:30 PM EDT [facility] 56 MCH 28.8 27.0 - 34.0 pg 01/31/2023 2:30 PM EDT [facility] 56 MCHC 31.9 32.0 - 36.0 g/dL 01/31/2023 2:30 PM EDT [facility] 56 RDW 15.2 11.5 - 15.5 % 01/31/2023 2:30 PM EDT [facility] 56 PLT 177 140 - 400 K/uL 01/31/2023 2:30 PM EDT [facility] 56 MPV 8.7 6.6 - 11.1 fL 01/31/2023 2:30 PM EDT [facility] 56 Blood Venous blood specimen / Unknown Venipuncture / Unknown 01/31/2023 2:22 PM EDT 01/31/2023 2:23 PM EDT Katya Brand MD LAB BLOOD ORD ERABLES [facility] [address] 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
--- OUTSIDE RECORDS SUMMARY | 2023-05-24 01:57 | External Medical Summary ---
Author Name Unknown Address Unknown Organization [id number][facility] [place] [address] Laboratory Report Ordering Provider Test Date Status NATALIE JOHN 01/31/2023 14:22:40 Final Observation Date Value Abnormality Reference (Units ) Status BUN 01/31/2023 14:22:40 36 Above high normal 6-20 (mg/dL) Final Creatinine 01/31/2023 14:22:40 2.6 Above high normal 0.5-1.0 (mg/dL) Final Glomerular filtration rate/1.73 sq M.predicted [Volume Rate/Area] in Serum, Plasma or Blood by Creatinine-based formula (CKD-EPI) 01/31/2023 14:22:40 19 Below low normal >=60 (mL/min) Final eGFR is calculated based on the CKD-EPI 2020 equation SODIUM 01/31/2023 14:22:40 138 135-146 (m mol/L) Final Potassium 01/31/2023 14:22:40 5.0 3.5-5.1 (m mol/L) Final Cl 01/31/2023 14:22:40 104 98-107 (mm ol/L) Final CO2 01/31/2023 14:22:40 22 22-32 (mmo l/L) Final Anion gap 01/31/2023 14:22:40 12 7-15 (mmol /L) Final Glucose 01/31/2023 14:22:40 131 Above high normal 70 -120 (mg/dL) Final Calcium 01/31/2023 14:22:40 9.8 8.4-10.2 ( mg/dL) Final Performing Location [facility] [place] [address]
--- OUTSIDE RECORDS SUMMARY | 2023-05-24 01:57 | External Medical Summary ---
Author Name Unknown Address Unknown Organization K09:[facility] [place] [address] Laboratory Report Ordering Provider Test Date Status NATALIE JOHN 01/31/2023 14:22:40 Final Observation Date Value Abnormality Reference (Units ) Status SYNC LEUKOCYTES IN BLOOD BY AUTOMATED COUNT 01/31/2023 14:22:40 6.80 4.00-10.80 (K/uL) Final Segs 01/31/2023 14:22:40 83.0 Above high normal 40.0-75.0 (%) Final Lymphs % 01/31/2023 14:22:40 8.2 Below low normal 18.0-42.0 (%) Final Monos 01/31/2023 14:22:40 7.5 1.0-11.0 (%) Final Eosinophils 01/31/2023 14:22:40 0.9 0.0-6.0 (%) Final Basos 01/31/2023 14:22:40 0.4 0.0-2.0 (%) Final Absolute Segs 01/31/2023 14:22:40 5.64 1.80-7.70 (K/uL) Final Lymphs, absolute 01/31/2023 14:22:40 0.56 Below low normal 1.00-4.80 (K/ul) Final Monos, Abs 01/31/2023 14:22:40 0.51 0.00-1.10 (K/uL) Final Eos, Abs 01/31/2023 14:22:40 0.06 0.00-0.70 (K/uL) Final Basos, Abs 01/31/2023 14:22:40 0.03 0.00-0.20 (K/uL) Final Performing Location [facility] [place] [address]
--- OUTSIDE RECORDS SUMMARY | 2023-05-24 01:57 | External Medical Summary ---
Author Name Unknown Address Unknown Organization : Laboratory Report Ordering Provider Test Date Status NATALIE JOHN 01/31/2023 14:22:40 Final Observation Date Value Abnormality Reference (Units ) Status Everolimus [Mass/volume] in Blood 01/31/2023 14:22:40 6.5 (ng/mL) Final Unable to flag abnormal result(s), please refer
to reference range(s) below:
Trough: 3.0 - 8.0 ng/mL for Transplantation
Trough: 5.0 - 10.0 ng/mL for Oncology/Neurology
Symptoms of toxicity are more likely to occur at
trough levels exceeding 12.0 ng/mL.
This test was developed and its analytical performance
characteristics have been determined by [facility] [place], [place]. It has
not been cleared or approved by the U.S. Food and Drug
Administration. This assay has been validated pursuant
to the CLIA regulations and is used for clinical
purposes.

Test Performed at:
[facility]
[address] [facility]
[place], [place]
Emory Amador M.D., Ph.D.,Director of Laboratories Performing Location
--- OUTSIDE RECORDS SUMMARY | 2023-05-24 01:57 | External Medical Summary | Summary of Care ---
Author Name Unknown Organization [facility] Address [address] [place] [address] Phone [phone] Care Team Providers Care Physical Therapy Technician Name Role Phone August Driver MD Primary Care Provider + Encounter Details Date Type Department Care Team Description 02/01/2023 Telephone Pharmacy, [facility] [address] [facility] [place] [address] [facility] [place] [address] Allergies Active Allergy Reactions Severity Noted Date Comments Pollen 01/02/2020 Other reaction(s): Sneezing (finding) documented as of this encounter (statuses as of 02/01/2023) Medications Medication Sig Dispensed Refills Start Date [...] 30 Tablet 12 2 Active Litetouch Pen [place] 31G X 8 MM (Insulin Pen Needle)Indications [...] s:COPD, group C, by GOLD 2017 classification ([facility] [...] MG Oral Tablet (Deltasone)Indicat ions:Lung transplant status ([facility]) Take 1 Tablet by mouth in the morning. TAKING 5mg DAILY. 90 Tablet 3 3 Active HYDROmorphone HCl 2 MG Oral Tablet (Dilaudid)Indicati ons:Disc disorder of lumbar region Take 1 Tablet by mouth every 12 hours as needed for Pain, Severe. 60 Tablet 0 3 Active oxyCODONE HCl ER 10 MG Oral Tablet ER 12 Hour Abuse-Deterrent (oxyCONTIN) Take 1 Tablet by mouth in the morning and 1 Tablet before bedtime. 60 Tablet 0 3 Active HYDROmorphone HCl 2 MG Oral [...] mgIndications:Lung transplant status (HCC) 300 mg IM [id number] 01/21/2022 Active Cilgavimab inj 300 mgIndications:Lung transplant status (HCC) 300 mg IM [id number] 01/21/2022 Active documented as of this encounter (statuses as of 02/01/2023) Active Problems Problem Noted Date History of [...] Pain medication agreement 04/18/2012 Overview: Signed 04/18/12 Fzvyz-8-dqgpoaziewm deficiency 1 Overview: [facility]in 60[facility] Zamaira given fall 2010 caused arthralgias. 08/28/10 - <30 10/12/08 - MM allele 08/22/08 - 232 Proteinuria 10/08/2009 History of tobacco use 09/10/2009 Chronic rhinitis 09/10/2009 Esophageal reflux Disc disorder of lumbar region Overview: has had multiple surgeries - now w/ chronic back pain from postlaminectomy syndrome documented as of this encounter (statuses as of 02/01/2023) Resolved Problems Problem Noted Date Resolved Date [...] NONHODGKIN'S LYMPHOMA 07/21/20092009 Overview: Sep 2008, [facility], received 3 doses of chemo, remission COPD exacerbation 01/09/2009 12/16/2009 COPD, severity to be determined 01/09/2009 04/13/2011 Overview: 06/05/10: 4 LPM 24hrs/day. 07/26/09: Failed 2 step at [facility], 2 LPM 24 hr/day 07/15/09: [...] 12/16/2009 Overview: chronic back pain - sees [facility] Pain Management Other malignant lymphomas, u nspecified site, extranodal and solid organ sites 11/03/2010 Overview: NHL- Sep 2008 at [facility] Dr Caceres Major depressive disorder 2022 Overview: ICD-10 update of inactive term Other malignant lymphomas, u nspecified site, extranodal and solid organ sites 10/05/2017 Overview: NHL- Sep 2008 at [facility] Dr Caceres documented as of this encounter (statuses as of 02/01/2023) Immunizations Name Administration Dates Next Due COVID-19 [...] Telephone Encounter - August Driver MD - 02/01/2023 9:06 AM EDTSigned Prescriptions: Disp Refills HYDROmorphone HCl 2 MG Oral Tablet (Dilaud*60 Tab*0 Sig: Take 1 Tablet by mouth every 12 hours as needed for Pain, Severe. Authorizing Provider: AUGUST DRIVER oxyCODONE HCl ER 10 MG Oral Tablet ER 12 H*60 Tab*0 Sig: Take 1 Tablet by mouth in the morning and 1 Tablet before bedtime. Authorizing Provider: AUGUST JAVIER * Telephone Encounter - August Driver MD - 02/01/2023 9:05 AM EDT I have reviewed the patients controlled substance dispensing history in the Prescription Drug Monitoring Program in compliance with the [facility] regulations before prescribing a controlled substance. Last Tox Screen Results: Results for orders placed or performed in visit on 11/24/21 PAIN MANAGEMENT DRUG PANEL, URINE W/ INTERPRETATION Result Value Compliance Interpretation Based on the medication information provided: The presence of hydromorphone is CONSISTENT with hydromorphone use. Amphetamine Negative Benzodiazepines Negative Cannabinoids Negative Cocaine Metabolite Negative Fentanyl Negative Hydrocodone / Hydromorphone Refer to confirmation results (A) Methadone Metabolite Negative Morphine / Codeine Refer to confirmation results (A) Oxycodone / Oxymorphone Refer to confirmation results (A) Valid Interpretation Normal Creatinine DEVORAH 142 Narrative Cutoff Concentrations: Drug Level Amphetamines 500 [...] results can be found in Results Review. Med sent let me know if oxycontin needs to be changed/adjusted based on last gfr * Telephone Encounter - Viri Vo RPh - 02/01/2023 8:43 AM EDT Anibal, Patient seen in [facility] Pharmacy pain last week. Requesting to reduce oxycodone ER and see if this reduces her fatigue. Prescriptions for controls pended for your approval. Thank you, Viri Vo, Pharm D, BCACP Clinical Pharmacist 02/01/2023, 8:44 AM documented in this encounter Plan of Treatment Upcoming Encounters Date Type Specialty Care Team Description 05/31/2023 Office Visit Pharmacy [facility] [address] [facility] [place] [address] 07/20/2023 Office Visit Neurology Alva Contreras PA-C [address] [facility] [place] [address] 07/26/2023 Office Visit Internal Medicine [facility], August Alvarado MD [address] [place] [address] Scheduled Procedures Name Priority Associated Diagnoses Date/Ti [...] Additional history exists CKD PHOS USE SMARTSET 80647 11/16/202310/30, 11/08/2022, 05/10/2022, Additional history exists COLONOSCOPY-EVERY 5 YRS AGES 18-100 11/18/2023 11/17/2018 Depression Screening 01/12/2024 01/11/2023, 02/22/20 15 O2 ASSESSMENT COMPLETED IN PAST YEAR FOR COPD 01/12/2024 01/11/2023, 05/24/2014 (Course Completed) CKD HGB USE SMARTSET 84582 02/01/202401/31, 01/31/2023, 01/25/2023, Additional history exists Lipid Panel 01/19/2028 01/18/2023, 11/30, 06/16/2022, Additional history exists DTaP,Tdap,and Td Vaccines (3 - Td or Tdap) 07/22/2032 07/22/2022, 01/05/2012 Hepatitis B Completed 12/06/2018, 06/2018, 09/01/2018, Additional history exists COVID-19 Vaccine Completed [...] this encounter Medical Devices Implanted Type Area Absorption Operator Device Identifier Shelf Expiration Date Model / Serial / Lot Lens Intraoc 21.5 - [id number] - [id number] Implanted:Qty: 1 on 06/10/2020 by Pietro Nuñez MD at OR [facility] Right: Eye [employer]OM[employer] 12/30/2024 [id number] / [id number] / [id number] Lens Intraoc 21.5 - [id number] - [id number] Implanted:Qty: 1 on 06/24/2020 by Pietro Nuñez MD at OR [facility] Left: Eye BAUSCH & LOMB 01/29/2025 [id number] / [id number] / [id number] documented as of this encounter Visit Diagnoses Diagnosis Disc disorder of lumbar region Other and unspecified disc disorder of lumbar region documented in this encounter Care Teams Physical Therapy Technician Relationship Specialty Start Date End Date August Driver MD [address] [place] [address] PCP - General Internal Medicine 12/13/11 documented as of this encounter
--- OUTSIDE RECORDS SUMMARY | 2023-05-24 01:57 | External Medical Summary ---
Author Name Unknown Address Unknown Organization K09:[facility] [place] [address] Laboratory Report Ordering Provider Test Date Status NATALIE JOHN 01/31/2023 14:22:40 Final Observation Date Value Abnormality Reference (Units ) Status WBC, Total 01/31/2023 14:22:40 6.80 4.00-10.8 0 (K/uL) Final RBC 01/31/2023 14:22:40 3.85 3.85-5.15 (M/uL) Final Hemoglobin 01/31/2023 14:22:40 11.1 Below low normal 12 .0-15.3 (g/dL) Final HCT 01/31/2023 14:22:40 34.8 Below low normal 36. 0-45.2 (%) Final MCV 01/31/2023 14:22:40 90.4 81.5-97.5 (fL) Final MCH 01/31/2023 14:22:40 28.8 27.0-34.0 (pg) Final MCHC 01/31/2023 14:22:40 31.9 32.0-36.0 (g/dL) Final RDW 01/31/2023 14:22:40 15.2 11.5-15.5 (%) Final Platelets 01/31/2023 14:22:40 177 140-400 (K /uL) Final MPV 01/31/2023 14:22:40 8.7 6.6-11.1 ( fL) Final Performing Location [facility] [place] [address]
--- OUTSIDE RECORDS SUMMARY | 2023-05-24 01:57 | External Medical Summary ---
Author Name Unknown Address Unknown Organization : Laboratory Report Ordering Provider Test Date Status NATALIE JOHN 01/31/2023 14:22:40 Final Observation Date Value Abnormality Reference (Units ) Status Source 01/31/2023 14:22:40 Whole Blood Final Cytomegalovirus DNA [Units/volume] (viral load) in Specimen by with probe detection 01/31/2023 14:22:40 Not Detected (IU/mL) Final Cytomegalovirus DNA [Log #/volume] (viral load) in Specimen by with probe detection 01/31/2023 14:22:40 Not Detected (log IU/mL) Final REFERENCE RANGE: NOT DETECTE D
This test was developed and its analytical performance
characteristics have been determined by [facility] [place], [place]. It has
not been cleared or approved by the U.S. Food and Drug
Administration. This assay has been validated pursuant
to the CLIA regulations and is used for clinical
purposes.
For additional information, please refer to
http://education.[employer].com/faq/[email or web address]
(This link is being provided for informational/
educational purposes only.)

Test Performed at:
[facility]
[address] [facility]
[place], [place]
Emory Amador M.D., Ph.D.,Director of Laboratories Performing Location
--- OUTSIDE RECORDS SUMMARY | 2023-05-24 01:58 | External Medical Summary | Summary of Care ---
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[facility]); Elevated cholesterol with elevated triglycerides; Major depressive disorder with single episode, in partial remission (HCC); Chapped lips Allergies Active Allergy Reactions Severity Noted Date Comments Pollen 01/02/2020 Other reaction(s): Sneezing (finding) documented as of this encounter (statuses as of 01/18/2023) Medications Medication Sig Dispensed Refills Start Date [...] 30 Tablet 12 12/02/2021 Active Litetouch Pen [place] 31G X 8 MM (Insulin Pen Needle)Indications:T [...] C, by GOLD 2017 classification ([facility]) Inhale 1 Puff by mouth in [...] long-term current use of insulin ([facility]) Use to check sugars 4 times [...] the morning. 90 Tablet 3 11/22/2022 Active predniSONE 5 MG Oral Tablet (Deltasone)Indicatio ns:Lung transplant status ([facility]) Take 1 Tablet by mouth in the morning. TAKING 5mg DAILY. 90 Tablet 3 11/22/2022 Active HYDROmorphone HCl [...] or juice. 17 g 0 01/11/2023 Active Hospital, Clinic, or Other Facility Administered Medication Ordered Dose Route Frequency Start Date End Date Status Tixagevimab inj 300 mgIndications:Lung transplant status ([facility]) 300 mg IM [id number] 01/21/2022 Active Cilgavimab inj 300 mgIndications:Lung transplant status ([facility]) 300 mg IM [id number] 01/21/2022 Active documented as of this encounter (statuses as of 01/18/2023) Active Problems Problem Noted Date History of [...] Pain medication agreement 04/18/2012 Overview: Signed 04/18/12 Izlvg-6-nsfflnbjmve deficiency 1 Overview: Prolastin 60mg/kg [facility]07/11[facility] Zamaira given fall 2010 caused arthralgias. 08/28/10 - <30 10/12/08 - MM allele 08/22/08 - 232 Proteinuria 10/08/2009 History of tobacco use 09/10/2009 Chronic rhinitis 09/10/2009 Esophageal reflux Disc disorder of lumbar region Overview: has had multiple surgeries - now w/ chronic back pain from postlaminectomy syndrome documented as of this encounter (statuses as of 01/18/2023) Resolved Problems Problem Noted Date Resolved Date [...] HX- NONHODGKIN'S LYMPHOMA 07/21/20092009 Overview: Sep 2008, [facility], received 3 doses of [...] 12/16/2009 Overview: chronic back pain - sees [facility] Pain Management Other malignant lymphomas, u nspecified site, extranodal and solid organ sites 11/03/2010 Overview: NHL- Sep 2008 at [facility] Dr Caceres Major depressive disorder 2022 Overview: ICD-10 update of inactive term Other malignant lymphomas, u nspecified site, extranodal and solid organ sites 10/05/2017 Overview: NHL- Sep 2008 at [facility] Dr Caceres documented as of this encounter (statuses as of 01/18/2023) Immunizations Name Administration Dates Next Due COVID-19 [...] IM (FLUAD) 01/02/2020 Seasonal Influenza, PF, 6 mo ns & Above, IM , (Flulaval) 03/15/2019,02/13/2018,02/11/2017 Seasonal Influenza, Quadriva lent Hd (Fluzone [...] Encounters Date Type Specialty Care Team Description 01/25/2023 Office Visit [facility]acy [facility] [place] [address] [facility] [place] [address] 07/20/2023 Office Visit Neurology Alva Contreras PA-C [address] [facility] [place] [address] 07/26/2023 Office Visit Internal Medicine August Esposito MD [address] [facility] [place] [address] Pending Results Name Type Priority Associated Diagnoses Date /Time CBC WITH WBC DIFFERENTIAL Lab Routine Encounter for long-term (current) use of other medications Hypomagnesemia Status post lung transplantation (HCC) 01/18/2023 2:06 PM EDT BASIC METABOLIC PANEL Lab Routine Encounter for long-term (current) use of other medications Hypomagnesemia Status post lung transplantation ([facility]) 01/18/2023 2:06 PM EDT MAGNESIUM Lab Routine Encounter for long-term (current) use of other medications Hypomagnesemia Status post lung transplantation ([facility]) 01/18/2023 2:06 PM EDT TACROLIMUS LEVEL Lab Routine Encounter for long-term (current) use of other medications Hypomagnesemia Status post lung transplantation ([facility]) 01/18/2023 2:06 PM EDT EVEROLIMUS, LC/MS/MS, BLOOD Lab Routine Encounter for long-term (current) use of other medications Hypomagnesemia Status post lung transplantation ([facility]) 01/18/2023 2:06 PM EDT CYTOMEGALOVIRUS DNA, QUANTITATIVE REAL-TIME PCR Lab Routine Encounter for long-term (current) use of other medications Hypomagnesemia Status post lung transplantation ([facility]) 01/18/2023 2:06 PM EDT HEPATIC FUNCTION PANEL Lab Routine Meningitis, 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[facility]) 01/18/2023 2:06 PM EDT LIPID PANEL WITH DIRECT LDL IF TG IS HIGH Lab Routine Elevated cholesterol with elevated triglycerides 01/18/2023 2:06 PM EDT TSH Lab Routine Major depressive disorder with single episode, in partial remission ([facility]) Chapped lips 01/18/2023 2:06 PM EDT CBC Lab Routine Encounter for long-term (current) use of other medications Hypomagnesemia Status post lung transplantation (HCC) 01/18/2023 2:06 PM EDT DIFFERENTIAL, AUTOMATED Lab Routine Encounter for long-term (current) use of other medications Hypomagnesemia Status post lung transplantation (HCC) 01/18/2023 2:06 PM EDT Scheduled Procedures Name Priority Associated [...] 06/16/2023 12/14/2022, 10/30, 06/16/2022, Additional history exists GFR 07/01/2023 12/31/2022, 11/30, 12/01/2022, Additional history exists Diabetic Foot Exam 07/06/2023 07/05/2022, 0 06/10/2021, 07/10/2020, Additional history exists CKD PHOS USE SMARTSET 38165 11/16/202310/30, 11/08/2022, 05/10/2022, Additional history exists COLONOSCOPY-EVERY 5 YRS AGES 18-100 11/18/2023 11/17/2018 CKD HGB USE SMARTSET 01303 01/01/202412/31, 12/31/2022, 12/14/2022, Additional history exists Depression Screening 01/12/2024 01/11/2023, 02/22/20 15 O2 ASSESSMENT COMPLETED IN PAST YEAR FOR COPD 01/12/2024 01/11/2023, 05/24/2014 (Course Completed) Lipid Panel 12/15/2027 12/14/2022, 06/02, 06/15/2021, Additional history exists DTaP,Tdap,and Td Vaccines (3 [...] this encounter Medical Devices Implanted Type Area Parts Control Clerk Device Identifier Shelf Expiration Date Model / Serial / Lot Lens Intraoc 21.5 - [id number] - [id number] Implanted:Qty: 1 on 06/10/2020 by Pietro Nuñez MD at OR [facility] Right: Eye [employer] 12/30/2024 [id number] / [id number] / [id number] Lens Intraoc 21.5 - [id number] - [id number] Implanted:Qty: 1 on 06/24/2020 by Pietro Nuñez MD at OR [facility] Left: Eye [employer] 01/29/2025 [id number] / [id number] / [id number] documented as of this encounter Visit Diagnoses Diagnosis Encounter for long-term (current) use of other medications Hypomagnesemia 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
--- OUTSIDE RECORDS SUMMARY | 2023-05-24 01:58 | External Medical Summary | Summary of Care ---
Author Name Unknown Organization [facility] Address [address] [place] [address] Phone [phone] Care Team Providers Care Compressor Engineer Name Role Phone August Esposito MD Primary Care Provider + Reason for Visit * Reason Comments Follow Up Dementia Encounter Details Date Type Department Care Team Description 01/18/2023 Office Visit Neurology [place] [place] [address] [place] [address] Alva Contreras PA-C [address] [place] [address] AD (Alzheimer's disease) ([facility]; History of anoxic brain injury; Family history of Alzheimer's disease Allergies Active Allergy Reactions Severity Noted Date [...] 30 Tablet 12 12/02/2021 Active Litetouch Pen [place] 31G X 8 MM (Insulin Pen Needle)Indications:T [...] 2017 classification ([facility]) Inhale 1 Puff by mouth in the [...] of insulin ([facility]) Use to check sugars 4 times a [...] transplant status ([facility]) Take 1 Tablet by mouth in the [...] transplant status ([facility]) 300 mg IM [id number] 01/21/2022 Active Cilgavimab inj 300 mgIndications:Lung transplant status ([facility]) 300 mg IM [id number] 01/21/2022 Active documented as of this encounter [...] Pain medication agreement 04/18/2012 Overview: Signed 04/18/12 Tfkzv-3-eoxaedqywnx deficiency 1 Overview: [facility]in 60mg/kg [facility]07[facility] Zamaira given fall 2010 caused [...] 09/10/2009 12/16/2009 Other pulmonary embolism and infarction 09/06/1902/11/2017 Anticoagulation management encounter 09/05/2009 11/12/2016 Thrush 08/21/2009 12/16/2009 Hypoxemia 07/31/2009 12/16/2009 Overview: 2 LPM - 24 hrs/day HX- NONHODGKIN'S LYMPHOMA 07/21/20092009 Overview: [place] [facility] 3 doses of chemo, remission COPD exacerbation 01/09/2009 12/16/2009 COPD, severity to be determined 01/09/2009 04/13/2011 Overview: 06/05/10: 4 LPM 24hrs/day. 07/26/09: Failed 2 step at [facility], 2 LPM 24 hr/day [...] 12/16/2009 Overview: chronic back pain - sees [facility] Pain Management Other malignant lymphomas, u nspecified site, extranodal and solid organ sites 11/03/2010 Overview: NHL- Sep 2008 at [facility] [place] Caceres Major depressive disorder 2022 Overview: ICD-10 update of inactive term Other malignant lymphomas, u nspecified site, extranodal and solid organ sites 10/05/2017 Overview: NHL- Sep 2008 at [facility] [place] Caceres documented as of this encounter [...] Sign Reading Time Taken Comments Blood Pressure 126/58 01/18/2023 1:23 PM EDT Pulse 72 01/18/2023 1:23 PM EDT Temperature 36.5 C (97.7 F) 01/18/2023 1:23 PM ED T Respiratory Rate 18 01/18/2023 1:23 PM EDT Oxygen Saturation - - Inhaled Oxygen Concentration - - Weight 52.1 kg (114 lb 14.4 oz) 01/18/2023 1:23 PM EDT Height 157.5 cm (5' 2") 01/18/2023 1:23 PM EDT Body Mass Index 21.02 01/18/2023 1:23 PM EDT documented in this encounter Progress Notes * Alva Contreras PA-C - 01/18/2023 1:24 PM EDT HISTORY & PHYSICAL EXAMINATION - NEUROLOGY Name: Shagufta Lanier Date: 01/18/2023 Time: 1:24 PM Referring Provider: Self Chief Complaint: Chief Complaint Patient presents with Follow Up Dementia This is a 67 year old right handed woman returns today for follow up for dementia. HPI & Source of HPI The patient and spouse was the historian, and he is reliable. She was last seen by Yady Mcgregor MD 02/11/22 for dementia. She had lung transplant surgery 2019 (alpha1 antitrypsin deficiency). She underwent neuropsychological testing with Dr Gaxiola 2020 who referred her to neurology. Her neuropsychological testing showed "profound impairment in learning/memory. Additional impairment was observed in aspects cognitive processing speed, attention, and visuospatial ability." She was rated as functioning at an MCI vs mild dementia level at that time. Alzheimer's disease is most likely but given her lung transplant surgery, and reported anoxia, sequelae from anoxic brain injury possible. MRI does not show etiology only mild global volume loss, some cerebrovascular disease. She is here for follow up and states this has been a progressive process. They saw Dr Dowd in [place] about 1 year ago. She was started on trazadon for sleep but her stopped it because it made her mean. The repeating of questions and not remembering anything has been trying for him. She likes to crotchet and do puzzles and watch TV. 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 I have reviewed the patient's medications and allergies, past medical, surgical, social and family history, updating these as appropriate. See Histories section of the electronic medical record for adisplay of this information. What was the mini mental exam score? 25 What is today's date? 0 havent looked at the [facility] What is today's year? 1 What is the month? 1 What day is today? 1 What season is it? 1 What is the name of this hospital/clinic? 1 What floor are we on? 1 What town/city are we in? 1 What county are we in? 1 What state are we in? 1 Did the patient repeat ball? 1 Did the patient repeat flag? 1 Did the patient repeat tree? 1 Did the patient respond D? 1 Did the patient respond L? 1 Did the patient respond R? 1 Did the patient respond O? 1 Did the patient respond W? 1 Ask the patient to recall the three words you previously asked. unable to recall Did the patient respond ball? 0 Did the patient respond flag? 0 Did the patient respond tree? 0 Show the patient a watch and ask what it is. 1 Show the patient a pencil and ask what it is. 1 Ask the patient to repeat No ifs, ands or buts. 1 Patient takes paper in hand 1 Patient folds paper in half [address] Patient [address] paper on the floor 1 Hold card "Close eyes". Ask pt. to read and do what it says 1 Give pt. paper and ask to write a sentence. 1 Show pt. drawing of intersecting pentagons. Ask pt. to draw 0 pentegon and triangle Patient Active Problem List Diagnosis Code Esophageal reflux K21.9 Disc disorder of lumbar region M51.9 History of tobacco use Z87.891 Chronic rhinitis J31.0 Proteinuria R80.9 Ajvxh-1-empybnwebfh deficiency ([facility]) E88.01 Pain medication agreement Z02.89 Type 2 diabetes mellitus with hemoglobin A1c goal of less than 7.0% ([facility]) E11.9 Hypoxemia R09.02 History of pulmonary embolism Z86.711 H/O lymphoma Z85.72 PFO (patent foramen ovale) Q21.12 COPD, group C, by GOLD 2017 classification ([facility]) J44.9 Lung transplant status ([facility]) Z94.2 Bradycardia R00.1 Hypertension goal BP (blood pressure) < 140/90 I10 Pulmonary HTN ([facility]) I27.20 Tracheal stenosis J39.8 Type 2 diabetes mellitus with stage 3b chronic kidney disease ([facility]) E11.22, N18.32 Benign hypertension with stage 3b chronic kidney disease ([facility]) I12.9, N18.32 Chronic kidney disease, stage 3b (HCC) N18.32 Gastroparesis K31.84 History of DVT (deep vein thrombosis) Z86.718 Immunosuppressed status ([facility]) D84.9 Major depressive disorder with single episode, in partial remission ([facility]) F32.4 Type 2 diabetes mellitus with stage 3b chronic kidney disease, with long-term current use of insulin ([facility]) E11.22, N18.32, Z79.4 Mild dementia with mood disturbance ([facility]) F03.A3 Chronic bilateral back pain M54.9, G89.29 History of CVA in adulthood Z86.73 Family History Problem Relation Age of Onset Alzheimer's disease Mother Lung Disorder Father d. 60's. emphysema, also had lung infection outside lungs Diabetes Father Other (leukemia) Sister AML, Lung Disorder Brother related to work exposure Dementia Brother short term memory loss; older than pt Lung Disorder Brother s/p transplant Memory Loss Brother Diabetes Grandmother (Paternal) Diabetes Grandfather (Paternal) Alzheimer's disease Aunt (Maternal) Dementia Aunt (Paternal) Medications: Are you taking your medications? yes Current Outpatient Medications Medication Sig Dispense Refill [...] Take 1 Tablet by mouth. M W Ferrous Sulfate 324 MG Oral Tablet Delayed Release Take by mouth 1 Tablet . amLODIPine Besylate 5 MG Oral Tablet (Norvasc) Take by mouth 1 Tablet in the morning. 30 Tablet 12 Litetouch Pen [place] 31G X 8 MM (Insulin Pen Needle) [...] mouth in the morning. 90 Tablet 3 predniSONE 5 MG Oral Tablet (Deltasone) Take 1 Tablet by mouth in the morning. TAKING 5mg DAILY. 90Tablet 3 HYDROmorphone HCl 2 MG Oral Tablet (Dilaudid) Take 1 Tablet by mouth every 12 hours as needed for Pain, Severe. 60 Tablet 0 oxyCODONE HCl ER 15 MG Oral Tablet ER 12 Hour Abuse-Deterrent (oxyCONTIN) Take 1 Tablet by mouth inthe morning and 1 Tablet before bedtime. 60 Tablet 0 Apixaban 2.5 MG Oral Tablet (Eliquis) Take [...] of water or juice. 17 g 0 Current Facility-Administered Medications Medication Dose Route Frequency Provider Last Rate Last Admin Tixagevimab inj 300 mg 300 mg Intramuscular Q6 Months Vic Del Rio PA-C Cilgavimab inj 300 mg 300 mg Intramuscular Q6 Months Vic Del Rio PA-C Review of patient's allergies indicates: Allergen Reactions Pollen Other reaction(s): Sneezing (finding) Review of Systems: A total number of 10 systems were reviewed pertinent negative and positives not addressed in HPI are listed in the following review. Physical Exam: Constitutional: BP 126/58 (BP Site: Right Arm, BP Position: Sitting) | Pulse 72 | Temp 36.5 C (97.7 F) (Tympanic) | Resp 18 | Ht 1.575 m (5' 2") | Wt 52.1 kg (114 lb 14.4 oz) | BMI 21.02 kg/m | BSA 1.51 m , appearance nourished and healthy Ears, Nose, Mouth and Throat: mucous membranes moist, no injection and skin normal, eyes normal Cardiovascular: normal S-1 and S-2 and regular rate and rhythm Respiratory: clear to auscultation (CTA) and no rales, ronchi or wheeze Musculoskeletal: no peripheral edema Skin: normal and intact Eyes: extraocular muscles intact (EOMI) NEUROLOGIC EXAMINATION: Mental status: Alert and interactive Oriented to person Speech fluent with no evidence of aphasia Cranial Nerves Normal findings for Cranial Nerves II - XII Coordination: on acxsxl-ye-lpip slight reaching tremor no cogwheeling or resting tremor Gait/Stance: Posture normal. Gait using cane, steady steps arm swing present, does not bloc turns Motor: Negative for pronator drift of out stretched arms with eyes closed. Strength: generalized weakness, deconditioned, and uses arms of chair to stand up LABORATORY: Recent labs reviewed Review of prior Studies: No recent imaging available. Impression: Shagufta Lanier is a 67 year old woman with a history of dementia. Her neurologic examination today reveals no new focal deficit. The history and examination are suggestive of diagnosis/problem list. Testing and Referrals ordered: none ICD-10-CM 1. AD (Alzheimer's disease) ([facility]) G30.9 F02.80 2. History of anoxic brain injury Z86.69 3. Family history of Alzheimer's disease Z82.0 Return in 6 months or sooner if needed Continue to monitor for wandering from home, she is still not driving Discussed memory medications which they are not interested in starting Weight loss- would add boost type products with meals- or CIB Fall precautions keep as physically and mentally active as possible Medical Decision Making (determined by lowest of 2 of 3 elements): The medical decision making element of the number and complexity of problems addressed included at least 1 or more chronic illnesses with exacerbation, progression, or side effects of treatment (level 4). The medical decision making element of risk of complications, morbidity, and mortality of patient management is moderate (level 4) due to prescription drug management (moderate risk). The medical decision making element of the amount and complexity of data reviewed and analyzed included an independent interpretation of a test (level 4 at least). When 2 of 3 reach level 4, then this element is considered extensive (level 5). I personally spent a total of 30 minutes. This time was for a new office or established visit and was on the same calendar day. Education / Consultation - Topics covered as I spent 20 minutes, which is greater than 50% of this visit, counseling the patient on: Diagnostic Results Prognosis Importance of compliance with chosen treatment options Risk factor reductions Patient and family education Consulted with physician: Jamarcus Lincoln DO was available for direct supervision. Copy of note sent to PCP and Referring Provider. Total time of visit: 30 minutes. Alva Contreras PA-C [facility] [place] [address] [facility] [place] [address] 01/18/2023 1:24 PM documented in this encounter Nursing Notes * Mazin Gongora CMA - 01/18/2023 1:23 PM EDT Chief Complaint Patient presents with Follow Up Dementia Shagufta Lanier is a 67 year old female who presents today for a follow up for dementia.he states thatshe also has bilateral leg pain that has been ongoing since her spinal surgeries. She also has leg weakness but she denies any numbness or tingling. She denies any change in memory. documented in this encounter Plan of Treatment Upcoming Encounters Date Type Specialty Care Team Description 01/25/2023 Office Visit Pharmacy [facility] [place] [address] [facility] [place] [address] 07/20/2023 Office Visit Neurology Alva Contreras PA-C [address] [facility] [place] [address] 07/26/2023 Office Visit Internal Medicine August Esposito MD [address] [facility] [place] [address] Scheduled Procedures Name Priority Associated Diagnoses Date/Ti [...] (2 of 2) 09/16/2022 07/22/2022 Albumin/Creatinine Ratio 06/16/20232 023, 09/11/2019, 12/06/2018, Additional history exists HbA1c 06/16/2023 12/14/2022, 10/30, 06/16/2022, Additional history exists GFR 07/01/2023 12/31/2022, 11/30, 12/01/2022, Additional history exists Diabetic Foot Exam 07/06/2023 07/05/2022, 0 06/10/2021, 07/10/2020, Additional history exists CKD PHOS USE SMARTSET 28262 11/16/202310/30, 11/08/2022, 05/10/2022, Additional history exists COLONOSCOPY-EVERY 5 YRS AGES 18-100 11/18/2023 11/17/2018 CKD HGB USE SMARTSET 05449 01/01/202401/18, 01/18/2023, 12/31/2022, Additional history exists Depression Screening 01/12/2024 01/11/2023, [...] this encounter Medical Devices Implanted Type Area Vp Data Device Identifier Shelf Expiration Date Model / Serial / Lot Lens Intraoc 21.5 - [id number] - [id number] Implanted:Qty: 1 on 06/10/2020 by Pietro Nuñez MD at OR [facility] Right: Eye [employer] 12/30/2024 [id number] / [id number] / [id number] Lens Intraoc 21.5 - [id number] - [id number] Implanted:Qty: 1 on 06/24/2020 by Pietro Nuñez MD at [facility] Left: Eye [employer] LOMB 01/29/2025 [id number] / [id number] / [id number] documented as of this encounter Visit Diagnoses Diagnosis AD (Alzheimer's disease) ([facility])- Primary Alzheimer's disease History of anoxic brain injury Family history of Alzheimer's disease Family history of other neurological diseases documented in this encounter Care Teams Compressor Engineer Relationship Specialty Start Date End Date August Esposito MD [address] [place] [phone] PCP - General Internal Medicine 12/13/11 documented as of this encounter
--- OUTSIDE RECORDS SUMMARY | 2023-05-24 01:58 | External Medical Summary | Summary of Care ---
Author Name Unknown Organization [facility] Address [address] [place] [address] Phone [phone] Care Team Providers Care Bladder Tier Name Role Phone August Esposito MD Primary Care Provider + Reason for Visit * Reason Comments Outpatient Testing Encounter Details Date Type Department Care Team Description 01/25/2023 Laboratory Laboratory [facility] [address] [place] [address] [facility] Lab Scenery [address] [place] [address] Encounter for long-term (current) use of other medications; Hypomagnesemia; Status post lung transplantation (HCC) Allergies Active Allergy Reactions Severity Noted Date Comments Pollen 01/02/2020 Other reaction(s): Sneezing (finding) documented as of this encounter (statuses as of 01/25/2023) Medications Medication Sig Dispensed Refills Start Date [...] 30 Tablet 12 12/02/2021 Active Litetouch Pen [place] 31G X 8 MM (Insulin Pen Needle)Indications:T [...] Tablet (Deltasone)Indicatio ns:Lung transplant status ([facility]) Take 1 Tablet by mouth in the morning. TAKING 5mg DAILY. 90 Tablet 3 01/19/2023 Active Hospital, Clinic, or Other Facility Administered Medication Ordered Dose Route Frequency Start Date End Date Status Tixagevimab inj 300 mgIndications:Lung transplant status ([facility]) 300 mg IM [id number] 01/21/2022 Active Cilgavimab inj 300 mgIndications:Lung transplant status ([facility]) 300 mg IM [id number] 01/21/2022 Active documented as of this encounter (statuses as of 01/25/2023) Active Problems Problem Noted Date History of [...] Pain medication agreement 04/18/2012 Overview: Signed 04/18/12 Kaplu-8-ciaoeszccsq deficiency 1 Overview: Prolastin 60mg/kg started 06/07/11, weekly via [facility]. Zamaira given fall 2010 caused arthralgias. 08/28/10 - <30 10/12/08 - MM allele 08/22/08 - 232 Proteinuria 10/08/2009 History of tobacco use 09/10/2009 Chronic rhinitis 09/10/2009 Esophageal reflux Disc disorder of lumbar region Overview: has had multiple surgeries - now w/ chronic back pain from postlaminectomy syndrome documented as of this encounter (statuses as of 01/25/2023) Resolved Problems Problem Noted Date Resolved Date [...] HX- NONHODGKIN'S LYMPHOMA 07/21/20092009 Overview: [place] [facility] [place], remission COPD exacerbation 01/09/2009 12/16/2009 COPD, severity to be determined 01/09/2009 04/13/2011 Overview: 06/05/10: 4 LPM 24hrs/day. 07/26/09: Failed 2 step at [facility], 2 LPM 24 hr/day 07/15/09: [...] 12/16/2009 Overview: chronic back pain - sees [facility] Pain Management Other malignant lymphomas, [...] as of this encounter (statuses as of 01/25/2023) Immunizations Name Administration Dates Next Due COVID-19 [...] Visit Pharmacy [facility] [place] [address] [place] [address] 07/20/2023 Office Visit Neurology Alva Contreras PA-C 200 [facility] [place] [address] 07/26/2023 Office Visit Internal Medicine August Esposito MD 200 [facility] [place] [address] Pending Results Name Type Priority Associated Diagnoses Date /Time CBC WITH WBC DIFFERENTIAL Lab Routine Encounter for long-term (current) use of other medications Hypomagnesemia Status post lung transplantation (HCC) 01/25/2023 1:16 PM EDT BASIC METABOLIC PANEL Lab Routine Encounter for long-term (current) use of other medications Hypomagnesemia Status post lung transplantation ([facility]) 01/25/2023 1:16 PM EDT MAGNESIUM Lab Routine Encounter for long-term (current) use of other medications Hypomagnesemia Status post lung transplantation (HCC) 01/25/2023 1:16 PM EDT TACROLIMUS LEVEL Lab Routine Encounter for long-term (current) use of other medications Hypomagnesemia Status post lung transplantation ([facility]) 01/25/2023 1:16 PM EDT EVEROLIMUS, LC/MS/MS, BLOOD Lab Routine Encounter for long-term (current) use of other medications Hypomagnesemia Status post lung transplantation ([facility]) 01/25/2023 1:16 PM EDT CYTOMEGALOVIRUS DNA, QUANTITATIVE REAL-TIME PCR Lab Routine Encounter for long-term (current) use of other medications Hypomagnesemia Status post lung transplantation (HCC) 01/25/2023 1:16 PM EDT CBC Lab Routine Encounter for long-term (current) use of other medications Hypomagnesemia Status post lung transplantation ([facility]) 01/25/2023 1:16 PM EDT DIFFERENTIAL, AUTOMATED Lab Routine Encounter for long-term (current) use of other medications Hypomagnesemia Status post lung transplantation ([facility]) 01/25/2023 1:16 PM EDT Scheduled Procedures Name Priority Associated [...] 0 06/10/2021, 07/10/2020, Additional history exists GFR 07/19/2023 01/18/2023, 0905/2022, 12/14/2022, Additional history exists CKD PHOS USE SMARTSET 47592 11/16/202310/30, 11/08/2022, 05/10/2022, Additional history exists COLONOSCOPY-EVERY 5 YRS AGES 18-100 11/18/2023 11/17/2018 Depression Screening 01/12/2024 01/11/2023, 02/22/20 15 O2 ASSESSMENT COMPLETED IN PAST YEAR FOR COPD 01/12/2024 01/11/2023, 05/24/2014 (Course Completed) CKD HGB USE SMARTSET 49130 01/19/202401/18, 01/18/2023, 12/31/2022, Additional history exists Lipid Panel 01/19/2028 01/18/2023, 11/30, 06/16/2022, Additional history exists DTaP,Tdap,and Td Vaccines (3 - Td or Tdap) 07/22/2032 07/22/2022, 01/05/2012 Hepatitis B Completed 12/06/2018, 05/0 06/2018, 09/01/2018, Additional history exists COVID-19 Vaccine [...] this encounter Medical Devices Implanted Type Area Zipper Setter Device Identifier Shelf Expiration Date Model / Serial / Lot Lens Intraoc 21.5 - [id number] - [id number] Implanted:Qty: 1 on 06/10/2020 by Pietro Nuñez MD at OR [facility] Right: Eye BAUSCH [employer] LOMB 12/30/2024 [id number] / [id number] / [id number] Lens Intraoc 21.5 - [id number] - [id number] Implanted:Qty: 1 on 06/24/2020 by Pietro Nuñez MD at OR [facility] Left: Eye BAUSCH & LOMB 01/29/2025 [id number] / [id number] / [id number] documented as of this encounter Visit Diagnoses Diagnosis Encounter for long-term (current) use of other medications 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
--- OUTSIDE RECORDS SUMMARY | 2023-05-24 01:58 | External Medical Summary | Summary of Care ---
Author Name Unknown Organization [facility] Address [address] [place] [address] Phone [phone] Care Team Providers Care Hand Tier Name Role Phone August Esposito MD Primary Care Provider + Reason for Visit * Reason Onset Date Comments Advice 01/14/2023 Encounter Details Date Type Department Care Team Description 01/14/2023 Telephone General Internal Medicine [facility] [address] [place] [address] August Esposito MD [address] [place] [address] Advice Allergies Active Allergy Reactions Severity Noted Date Comments Pollen 01/02/2020 Other reaction(s): Sneezing (finding) documented as of this encounter (statuses as of 01/21/2023) Medications Medication Sig Dispensed Refills Start Date [...] 30 Tablet 12 12/02/2021 Active Litetouch Pen [place] 31G X 8 MM (Insulin Pen Needle)Indications: [...] :COPD, group C, by GOLD 2017 classification ([facility] [...] MG Oral Tablet ER 12 Hour Abuse-Deterrent (oxyCONTIN)Indicati ons:Disc disorder of lumbar region Take 1 Tablet by mouth in the morning and 1 Tablet before bedtime. 60 Tablet 0 01/07/2023 Active Apixaban 2.5 MG Oral Tablet (Eliquis)Indication [...] MG Oral Tablet (Deltasone)Indicati ons:Lung transplant status (HCC) Take 1 Tablet by mouth in the morning. TAKING 5mg DAILY. 90 Tablet 3 11/22/2022 3 Discontinu ed(Refill) Hospital, Clinic, or Other Facility Administered Medication Ordered Dose Route Frequency Start Date End Date Status Tixagevimab inj 300 mgIndications:Lung transplant status (HCC) 300 mg IM [id number] 01/21/2022 Active Cilgavimab inj 300 mgIndications:Lung transplant status (HCC) 300 mg IM [id number] 01/21/2022 Active documented as of this encounter (statuses as of 01/21/2023) Active Problems Problem Noted Date History of [...] Pain medication agreement 04/18/2012 Overview: Signed 04/18/12 Ivgve-3-tsrtdjgprow deficiency 1 Overview: Prolastin 60mg/kg started 06/07/11, weekly via [facility] [place]. Zamaira given fall 2010 caused arthralgias. 08/28/10 - <30 10/12/08 - MM allele 08/22/08 - 232 Proteinuria 10/08/2009 History of tobacco use 09/10/2009 Chronic rhinitis 09/10/2009 Esophageal reflux Disc disorder of lumbar region Overview: has had multiple surgeries - now w/ chronic back pain from postlaminectomy syndrome documented as of this encounter (statuses as of 01/21/2023) Resolved Problems Problem Noted Date Resolved Date [...] HX- NONHODGKIN'S LYMPHOMA 07/21/20092009 Overview: Sep 2008, [facility] [place], received 3 doses of chemo, remission COPD exacerbation 01/09/2009 12/16/2009 COPD, severity to be determined 01/09/2009 04/13/2011 Overview: 06/05/10: 4 LPM 24hrs/day. 07/26/09: Failed 2 step at [facility], 2 LPM 24 hr/day 07/15/09: [...] 12/16/2009 Overview: chronic back pain - sees [facility] Pain Management Other malignant lymphomas, u nspecified site, extranodal and solid organ sites 11/03/2010 Overview: NHL- Sep 2008 at [facility] [place] Dr Caceres Major depressive disorder 2022 Overview: ICD-10 update of inactive term Other malignant lymphomas, u nspecified site, extranodal and solid organ sites 10/05/2017 Overview: NHL- Sep 2008 at [facility] [place] Dr Caceres documented as of this encounter (statuses as of 01/21/2023) Immunizations Name Administration Dates Next Due COVID-19 [...] encounter Miscellaneous Notes * Telephone Encounter - Pool Bhatt, TIKI - 01/21/2023 11:10 AM EDT Faxed ROR to [facility] 01/21 JAT * Telephone Encounter - TIKI Watson - 01/14/2023 9:24 AM EDT Denia called after receiving the medial record release for the patient's pulmonary notes. She is at [facility] in [place] and states this should have gone to [facility]. She will shred the document. Please fax again to [facility]. Thank you. documented in this encounter Plan of Treatment Upcoming Encounters Date Type Specialty Care Team Description 01/25/2023 Office Visit Pharmacy [facility] [address] [facility] [place] [address] 07/20/2023 Office Visit Neurology Alva Contreras PA-C 200 [place] [address] 07/26/2023 Office Visit Internal Medicine August Esposito MD 200 [place] [address] Scheduled Procedures Name Priority Associated Diagnoses Date/Ti [...] 07/10/2020, Additional history exists GFR 07/19/2023 01/18/2023, 09/0 05/2022, 12/14/2022, Additional history exists CKD PHOS USE SMARTSET 54037 11/16/202310/30, 11/08/2022, 05/10/2022, Additional history exists COLONOSCOPY-EVERY 5 YRS AGES 18-100 11/18/2023 11/17/2018 Depression Screening 01/12/2024 01/11/2023, 02/22/20 15 O2 ASSESSMENT COMPLETED IN PAST YEAR FOR COPD 01/12/2024 01/11/2023, 05/24/2014 (Course Completed) CKD HGB USE SMARTSET 83882 01/19/202401/18, 01/18/2023, 12/31/2022, Additional history exists Lipid [...] this encounter Medical Devices Implanted Type Area Complex Commercial Litigation Paralegal Device Identifier Shelf Expiration Date Model / Serial / Lot Lens Intraoc 21.5 - [id number] - [id number] Implanted:Qty: 1 on 06/10/2020 by Pietro Nuñez MD at OR [facility] Right: Eye BAUSCH & LOMB 12/30/2024 [id number] / [id number] / [id number] Lens Intraoc 21.5 - [id number] - [id number] Implanted:Qty: 1 on 06/24/2020 by Pietro Nuñez MD at OR [facility] Left: Eye BAUSCH & LOMB 01/29/2025 [id number] / [id number] / [id number] documented as of this encounter Care Teams Hand Tier Relationship Specialty Start Date End Date August Esposito MD [address] [place] [address], [place] [address] PCP - General Internal Medicine 12/13/11 documented as of this encounter
--- OUTSIDE RECORDS SUMMARY | 2023-05-24 01:58 | External Medical Summary ---
Author Name Unknown Address Unknown Organization K09:[facility] [place] [address] Laboratory Report Ordering Provider Test Date Status NATALIE JOHN 01/25/2023 13:16:38 Final Observation Date Value Abnormality Reference (Units ) Status SYNC LEUKOCYTES IN BLOOD BY AUTOMATED COUNT 01/25/2023 13:16:38 6.28 4.00-10.80 (K/uL) Final Segs 01/25/2023 13:16:38 80.4 Above high normal 40.0-75.0 (%) Final Lymphs % 01/25/2023 13:16:38 9.7 Below low normal 18.0-42.0 (%) Final Monos 01/25/2023 13:16:38 8.4 1.0-11.0 (%) Final Eosinophils 01/25/2023 13:16:38 1.0 0.0-6.0 (%) Final Basos 01/25/2023 13:16:38 0.5 0.0-2.0 (%) Final Absolute Segs 01/25/2023 13:16:38 5.05 1.80-7.70 (K/uL) Final Lymphs, absolute 01/25/2023 13:16:38 0.61 Below low normal 1.00-4.80 (K/ul) Final Monos, Abs 01/25/2023 13:16:38 0.53 0.00-1.10 (K/uL) Final Eos, Abs 01/25/2023 13:16:38 0.06 0.00-0.70 (K/uL) Final Basos, Abs 01/25/2023 13:16:38 0.03 0.00-0.20 (K/uL) Final Performing Location [facility] [place] [address]
--- OUTSIDE RECORDS SUMMARY | 2023-05-24 01:58 | External Medical Summary ---
Author Name Unknown Address Unknown Organization K09:[facility] [place] [address] Laboratory Report Ordering Provider Test Date Status NATALIE JOHN 01/25/2023 13:16:38 Final Observation Date Value Abnormality Reference (Units ) Status Magnesium 01/25/2023 13:16:38 2.8 Above high normal 1. 5-2.6 (mg/dL) Final Performing Location [facility] [place] [address]
--- OUTSIDE RECORDS SUMMARY | 2023-05-24 01:58 | External Medical Summary ---
Author Name Unknown Address Unknown Organization : Laboratory Report Ordering Provider Test Date Status NATALIE JOHN 01/25/2023 13:16:38 Final Observation Date Value Abnormality Reference (Units ) Status Everolimus [Mass/volume] in Blood 01/25/2023 13:16:38 7.5 (ng/mL) Final Unable to flag abnormal result(s), please refer
to reference range(s) below:
Trough: 3.0 - 8.0 ng/mL for Transplantation
Trough: 5.0 - 10.0 ng/mL for Oncology/Neurology
Symptoms of toxicity are more likely to occur at
trough levels exceeding 12.0 ng/mL.
This test was developed and its analytical performance
characteristics have been determined by [facility] [place], [place]. It has
not been cleared or approved by the U.S. Food and Drug
Administration. This assay has been validated pursuant
to the CLIA regulations and is used for clinical
purposes.

Test Performed at:
[facility]
[address] [facility]
[place], [place]
Emory Amador M.D., Ph.D.,Director of Laboratories Performing Location
--- OUTSIDE RECORDS SUMMARY | 2023-05-24 01:58 | External Medical Summary | Summary of Care ---
Author Name Unknown Organization [facility] Address [address] [place] [address] Phone [phone] Care Team Providers Care Line Supply Name Role Phone August Esposito MD Primary Care Provider + Reason for Visit * Reason Onset Date Comments Test Results 01/26/2023 Encounter Details Date Type Department Care Team Description 01/26/2023 Telephone General Internal Medicine [facility] [address] [facility] [place] [address] August Esposito MD [address] [place] [address] Test Results Allergies Active Allergy Reactions Severity Noted Date Comments Pollen 01/02/2020 Other reaction(s): Sneezing (finding) documented as of this encounter (statuses as of 01/26/2023) Medications Medication Sig Dispensed Refills Start Date [...] 30 Tablet 12 12/02/2021 Active Litetouch Pen [place] 31G X 8 MM (Insulin Pen Needle)Indications:T [...] COPD, group C, by GOLD 2017 classification ([facility]) Inhale 1 Puff by mouth in [...] disease, with long-term current use of insulin ([facility]) Use to check sugars 4 times [...] disorder with single episode, in partial remission ([facility]) Take 1 Tablet by mouth in [...] Status Tixagevimab inj 300 mgIndications:Lung transplant status ([facility]) 300 mg IM [id number] 01/21/2022 Active Cilgavimab inj 300 mgIndications:Lung transplant status ([facility]) 300 mg IM [id number] 01/21/2022 Active documented as of this encounter (statuses as of 01/26/2023) Active Problems Problem Noted Date History of [...] Pain medication agreement 04/18/2012 Overview: Signed 04/18/12 Gyvll-4-odbgkgkqawy deficiency 1 Overview: [facility] 60[facility] Zam[facility] given fall 2010 caused arthralgias. 08/28/10 - <30 10/12/08 - MM allele 08/22/08 - 232 Proteinuria 10/08/2009 History of tobacco use 09/10/2009 Chronic rhinitis 09/10/2009 Esophageal reflux Disc disorder of lumbar region Overview: has had multiple surgeries - now w/ chronic back pain from postlaminectomy syndrome documented as of this encounter (statuses as of 01/26/2023) Resolved Problems Problem Noted Date Resolved Date [...] HX- NONHODGKIN'S LYMPHOMA 07/21/20092009 Overview: Sep 2008, [facility] [place], received 3 doses of chemo, remission COPD exacerbation 01/09/2009 12/16/2009 COPD, severity to be determined 01/09/2009 04/13/2011 Overview: 06/05/10: 4 LPM 24hrs/day. 07/26/09: Failed 2 step at [facility], 2 LPM 24 hr/day 07/15/09: [...] 12/16/2009 Overview: chronic back pain - sees [facility] Pain Management Other malignant lymphomas, u nspecified site, extranodal and solid organ sites 11/03/2010 Overview: NHL- Sep 2008 at [facility] [place] Dr Caceres Major depressive disorder 2022 Overview: ICD-10 update of inactive term Other malignant lymphomas, u nspecified site, extranodal and solid organ sites 10/05/2017 Overview: NHL- Sep 2008 at [facility] Dr Caceres documented as of this encounter (statuses as of 01/26/2023) Immunizations Name Administration Dates Next Due COVID-19 [...] encounter Miscellaneous Notes * Telephone Encounter - Ebonie Calvillo LPN [...] Care Team Description 05/31/2023 Office Visit Pharmacy [facility] [place] [address] [facility] [place] [address] 07/20/2023 Office Visit Neurology Alva Contreras PA-C 200 [facility] [place] [address] 07/26/2023 Office Visit Internal Medicine August Esposito MD 200 [place] [address] Scheduled Procedures Name Priority Associated Diagnoses Date/Ti me COLONOSCOPY FLEXIBLE PROXIMA L DIAGNOSTIC Recall Screening for malignant neoplasm of colon Health Maintenance Due Date Last Done Comments *ADVANCE DIRECTIVE NOT ON FILE 08/25/2016 DIABETES-EYE EXAM 03/18/2021 03/18/2020, , 03/19/2014, Additional history exists Mammogram 07/18/2021 07/18/2020, 05/12/2018, 09/07/2018, Additional history exists DXA Scan 09/11/2021 09/11/2018, 09/11/2018 Zoster Vaccines (2 of 2) 09/16/2022 07/22/2022 Albumin/Creatinine Ratio 06/16/2023 023, 09/11/2019, 12/06/2018, Additional history exists HbA1c 06/16/2023 12/14/2022, 10/30, 06/16/2022, Additional history exists Diabetic Foot Exam 07/06/2023 07/05/2022, 0 06/10/2021, 07/10/2020, Additional history exists GFR 07/26/2023 01/25/2023, 12/31, 12/31/2022, Additional history exists CKD PHOS USE SMARTSET 42066 11/16/202310/30, 11/08/2022, 05/10/2022, Additional history exists COLONOSCOPY-EVERY 5 YRS AGES 18-100 11/18/2023 11/17/2018 Depression Screening 01/12/2024 01/11/2023, 02/22/20 15 O2 ASSESSMENT COMPLETED IN PAST YEAR FOR COPD 01/12/2024 01/11/2023, 05/24/2014 (Course Completed) CKD HGB USE SMARTSET 92742 01/26/202401/25, 01/25/2023, 01/18/2023, Additional history exists Lipid Panel 01/19/2028 01/18/2023, [...] this encounter Medical Devices Implanted Type Area Cue Selector Device Identifier Shelf Expiration Date Model / Serial / Lot Lens Intraoc 21.5 - [id number] - [id number] Implanted:Qty: 1 on 06/10/2020 by Pietro Nuñez MD at OR [facility] Right: Eye BAUSCH [employer] LOMB 12/30/2024 [id number] / [id number] / [id number] Lens Intraoc 21.5 - [id number] - [id number] Implanted:Qty: 1 on 06/24/2020 by Pietro Nuñez MD at OR [facility] Left: Eye BAUSCH & LOMB 01/29/2025 [id number] / [id number] / [id number] documented as of this encounter Care Teams Line Supply Relationship Specialty Start Date End Date August Esposito MD [address] [place] [id number] PCP - General Internal Medicine 12/13/11 documented as of this encounter
--- OUTSIDE RECORDS SUMMARY | 2023-05-24 01:58 | External Medical Summary ---
Author Name Unknown Address Unknown Organization K09:[facility] [place] [address] Laboratory Report Ordering Provider Test Date Status NATALIE JOHN 01/25/2023 13:16:38 Final Observation Date Value Abnormality Reference (Units ) Status WBC, Total 01/25/2023 13:16:38 6.28 4.00-10.8 0 (K/uL) Final RBC 01/25/2023 13:16:38 3.68 3.85-5.15 (M/uL) Final Hemoglobin 01/25/2023 13:16:38 10.8 Below low normal 12 .0-15.3 (g/dL) Final HCT 01/25/2023 13:16:38 34.0 Below low normal 36. 0-45.2 (%) Final MCV 01/25/2023 13:16:38 92.4 81.5-97.5 (fL) Final MCH 01/25/2023 13:16:38 29.3 27.0-34.0 (pg) Final MCHC 01/25/2023 13:16:38 31.8 32.0-36.0 (g/dL) Final RDW 01/25/2023 13:16:38 15.5 11.5-15.5 (%) Final Platelets 01/25/2023 13:16:38 191 140-400 (K /uL) Final MPV 01/25/2023 13:16:38 9.0 6.6-11.1 ( fL) Final Performing Location [facility] [place] [address]
--- OUTSIDE RECORDS SUMMARY | 2023-05-24 01:58 | External Medical Summary ---
Author Name Unknown Address Unknown Organization K01:LAB[facility]ATORY [facility] - [address] [place] [address] Laboratory Report Ordering Provider Test Date Status NATALIE JOHN 01/25/2023 13:16:38 Final Test performed by [facility] on Recombine. Therapeutic ranges vary with type of transplant, time post-transplant, clinical protocols, and testing methodology. Results should be interpreted with clinical presentation and any signs rejection/toxicity. Observation Date Value Abnormality Reference (Units ) Status Tacrolimus (FK506) 01/25/2023 13:16:38 10.0 4 .0-12.0 (ng/mL) Final Performing Location LABORATORY [facility] - [address] [place] [address]
--- OUTSIDE RECORDS SUMMARY | 2023-05-24 01:58 | External Medical Summary | Summary of Care ---
Author Name Unknown Organization [facility] Address [address] [facility] [place] [address] Phone [phone] Care Team Providers Care Beverage Server Name Role Phone August Esposito MD Primary Care Provider + Reason for Visit * Reason Comments Dosage Adjustment In Person (Anticoag Cl inic) Pain Encounter Details Date Type Department Care Team Description 01/25/2023 Office Visit Pharmacy, [facility] [address] [facility] [place] [address] [facility] [address] [address] Disc disorder of lumbar region* Allergies Active Allergy Reactions Severity Noted Date [...] 30 Tablet 12 12/02/2021 Active Litetouch Pen [place] 31G X 8 MM (Insulin Pen Needle)Indications:T [...] group C, by GOLD 2017 classification ([facility]) Inhale 1 Puff by mouth in the [...] with long-term current use of insulin ([facility]) Use to check sugars 4 times a [...] with single episode, in partial remission ([facility]) Take 1 Tablet by mouth in the [...] Tixagevimab inj 300 mgIndications:Lung transplant status ([facility]) 300 mg IM [id number] 01/21/2022 Active Cilgavimab inj 300 mgIndications:Lung transplant status ([facility]) 300 mg IM [id number] 01/21/2022 Active documented as of this encounter [...] Pain medication agreement 04/18/2012 Overview: Signed 04/18/12 Bwhwb-4-dzxfbjtqaom deficiency 1 Overview: Prolastin 60mg/kg [facility] 06/07/11[facility] Zamaira given fall 2010 caused arthralgias. 08/28/10 [...] HX- NONHODGKIN'S LYMPHOMA 07/21/20092009 Overview: Sep 2008, [facility] 3 doses of chemo, remission COPD [...] 12/16/2009 Overview: chronic back pain - sees [facility] Pain Management Other malignant lymphomas, u nspecified site, extranodal and solid organ sites 11/03/2010 Overview: NHL- Sep 2008 at [facility] [place] Caceres Major depressive disorder 2022 Overview: ICD-10 update of inactive term Other malignant lymphomas, u nspecified site, extranodal and solid organ sites 10/05/2017 Overview: NHL- Sep 2008 at [facility] [place] Cacerse documented as of this encounter [...] on file documented as of this encounter Progress Notes * Viri Vo, [facility] - 01/25/2023 1:59 PM EDT Images from the original note were not included. Medication Therapy Disease Management Clinic - Chronic Pain Management Progress Note 01/25/2023 Shagufta Lanier, identified by name and date of , is a 67 year old female being seen for chronic pain management/education. Referring Physician: Dr. 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 Patient is back home and recovering but still weak Patient notes pain medications continue to help but does not frustrating fatigue/drowsiness Pain described as: sharp in back, "raw" at lung transplant incision Sleep: unknown Palliating factors: resting Exacerbating factors: cleaning/activity Other interventions tried: surgical intervention Worst time of day for pain: constant Psych History: MDD Neurological Hx: None Cardiac Hx: PFO Renal Hx: Stage III Hepatic Hx: None Other: COPD, lung transplant PDMP Reviewed (01/25/23): Urine Toxicology Screens: 11/20/21-appropriate Functional Goal: OQL/activity Current Pain Level (01/25/23): stable Pain Level (09/07/22): stable Pain Level (05/10/22): worse at night Pain Level (02/08/22): controlled Pain Level (11/24/21): no change/stable Pain Level (04/21/21): /10 Pain Level (12/09/20): Increased (no number provided) (10/20/2020): 3 out of 10 (08/12/20): / (07/01/2020): 8-01/09 with oxycodone Past Pain Medications: Morphine ER/IR nucynta Oxycodone Gabapentin 300 mg BID Lyrica 25 mg BID-not effective Current Pain Medications: Hydromorphone 2 mg tablet- 1 tab BID Oxycodone ER 15 mg BID *eliquis Creatinine Clearance: Serum creatinine: 3 mg/dL (H) 01/18/23 1406 Estimated creatinine clearance: 14.2 mL/min (A) Creatinine Results: Recent Labs Units 01/18/23 1406 12/31/22 1244 12/14/22 1218 CREATININE - [facility] mg/dL 3.0* 2.4* 2.6* Hepatic Function (ALT): Recent Labs Units 01/18/23 1406 12/14/22 1224 11/15/22 0700 ALT - [facility] U/L 8* 13 11 Comprehensive Metabolic Panel Results: Results for orders placed or performed in visit on 11/15/22 COMPREHENSIVE METABOLIC PANEL Result Value Ref Range BUN 20 6 - 20 mg/dL Creatinine 1.7 (H) 0.5 - 1.0 mg/dL Estimated Glomerular Filtration Rate 32 (L) >=60 mL/min Sodium 140 135 - 146 mmol/L Potassium 4.2 3.5 - 5.1 mmol/L Chloride 106 98 - 107 mmol/L CO2 22 22 - 32 mmol/L Anion Gap 12 7 - 15 mmol/L Glucose 98 70 - 120 mg/dL Albumin 3.6 (L) 3.8 - 5.0 g/dL AST 22 10 - 35 U/L Alkaline Phosphatase 78 35 - 130 U/L Bilirubin, Total 0.2 <=1.2 mg/dL Calcium 9.2 8.4 - 10.2 mg/dL Protein 6.2 6.0 - 8.3 g/dL ALT 11 10 - 35 U/L ASSESSMENT: Patient aware MTM is a clinical pharmacist visit, with focus on medication options for current diagnoses referred by Primary Care Provider for review and optimization. Focus of this visit is Medication Optimization. Current concerns: drowsiness/fatigue, pain generally stable, recovering from long illness Adherence: Reviewed current regimen, patient is adherent to regimen. Treatment options: decrease long acting oxycodone to try and reduce fatigue Treatment concerns: fatigue/drowsiness Education provided: discussed fatigue/drowsiness may be multifactoral but can attempt to lessen by reducing opioids I have evaluated the patient for the appropriateness and necessity of opioid pain medications. Patient has been educated towards the benefits and risks of opioid medications, including dependence, addiction, and overdose. Patient is aware of the requirements set out in the medication use agreement,including the need for routine urine drug screening. No red flags for abuse or misuse have been exhibited. PLAN: DECREASE oxycodone ER 10 mg BID Medication changes: yes, see below Pain Medications: Hydromorphone 2 mg tablet- 1 tab BID DECREASE: Oxycodone ER 10 mg BID *eliquis Patient verbalized understanding of the plan. Contact clinic with any issues. FOLLOW UP: Return to clinic in 16 weeks 05/31/2023 Viri Vo [facility] Clinical Pharmacist - Plating Machine Operator Medication Therapy Management Clinic 01/25/2023, 2:00 PM documented in this encounter Plan of Treatment Upcoming Encounters Date Type Specialty Care Team Description 05/31/2023 Office Visit Pharmacy [facility] [place] [address] [facility] [place] [address] 07/20/2023 Office Visit Neurology Alva Contreras PA-C [address] [facility] [place] [address] 07/26/2023 Office Visit Internal Medicine August Esposito MD [address] [facility] [place] [address] Scheduled Procedures Name Priority Associated Diagnoses Date/Ti [...] 07/10/2020, Additional history exists GFR 07/19/2023 01/18/2023, 090 05/2022, 12/14/2022, Additional history exists CKD PHOS USE SMARTSET 98715 11/16/202310/30, 11/08/2022, 05/10/2022, Additional history exists COLONOSCOPY-EVERY 5 YRS AGES 18-100 11/18/2023 11/17/2018 Depression Screening 01/12/2024 01/11/2023, 02/22/20 15 O2 ASSESSMENT COMPLETED IN PAST YEAR FOR COPD 01/12/2024 01/11/2023, 05/24/2014 (Course Completed) CKD HGB USE SMARTSET 60143 01/26/202401/25, 01/25/2023, 01/18/2023, Additional history exists Lipid [...] this encounter Medical Devices Implanted Type Area Box Brander Device Identifier Shelf Expiration Date Model / Serial / Lot Lens Intraoc 21.5 - [id number] - [id number] Implanted:Qty: 1 on 06/10/2020 by Pietro Nuñez MD at OR [facility] Right: Eye [employer]OMB 12/30/2024 [id number] / [id number] / [id number] Lens Intraoc 21.5 - [id number] - [id number] Implanted:Qty: 1 on 06/24/2020 by Pietro Nuñez MD at OR [facility] Left: Eye BAUSCH [employer] LOMB 01/29/2025 [id number] / [id number] / [id number] documented as of this encounter Visit Diagnoses Diagnosis Disc disorder of lumbar region- Primary Other and unspecified disc disorder of lumbar region documented in this encounter Care Teams Beverage Server Relationship Specialty Start Date End Date August Esposito MD [address] [place] [id number] PCP - General Internal Medicine 12/13/11 documented as of this encounter
--- OUTSIDE RECORDS SUMMARY | 2023-05-24 01:58 | External Medical Summary | Summary of Care ---
Author Name Unknown Organization [facility] Address [address] [place] [address] Phone [phone] Care Team Providers Care Outside Sales Account Manager Name Role Phone August Driver MD Primary Care Provider + Reason for Visit * Reason Onset Date Comments Medication Refill 01/18/2023 Encounter Details Date Type Department Care Team Description 01/18/2023 Refill General Internal Medicine [facility] [place] [address] [facility] [place] [address] August Driver MD [address] [place] [address] Lung transplant status (HCC) Allergies Active Allergy Reactions Severity Noted Date Comments Pollen 01/02/2020 Other reaction(s): Sneezing (finding) documented as of this encounter (statuses as of 01/19/2023) Medications Medication Sig Dispensed Refills Start Date End Date Status BD INSULIN SYR ULTRAFINE II 31G X /16" 0.5 ML MISCIndications:DM type 2, goal A1c [...] 30 Tablet 12 12/02/2021 Active Litetouch Pen [place] 31G X 8 MM (Insulin Pen Needle)Indications: [...] 2017 classification ([facility]) Inhale 1 Puff by mouth in [...] of insulin ([facility]) Use to check sugars 4 times [...] partial remission ([facility]) Take 1 Tablet by mouth in [...] 5mg DAILY. 90 Tablet 3 01/19/2023 Active predniSONE 5 MG Oral Tablet (Deltasone)Indicati ons:Lung transplant status (HCC) Take 1 Tablet by mouth in the morning. TAKING 5mg DAILY. 90 Tablet 3 11/22/2022 3 Discontinu ed(Refill) Hospital, Clinic, or Other Facility Administered Medication Ordered Dose Route Frequency Start Date End Date Status Tixagevimab inj 300 mgIndications:Lung transplant status (HCC) 300 mg IM [id number] 01/21/2022 Active Cilgavimab inj 300 mgIndications:Lung transplant status (HCC) 300 mg IM [id number] 01/21/2022 Active documented as of this encounter (statuses as of 01/19/2023) Active Problems Problem Noted Date History of [...] Pain medication agreement 04/18/2012 Overview: Signed 04/18/12 Aufku-9-lfyxktcstzy deficiency 1 Overview: Prolastin 60mg/kg started 06/07/11, weekly via [facility]. Zamaira given fall 2010 caused arthralgias. 08/28/10 - <30 10/12/08 - MM allele 08/22/08 - 232 Proteinuria 10/08/2009 History of tobacco use 09/10/2009 Chronic rhinitis 09/10/2009 Esophageal reflux Disc disorder of lumbar region Overview: has had multiple surgeries - now w/ chronic back pain from postlaminectomy syndrome documented as of this encounter (statuses as of 01/19/2023) Resolved Problems Problem Noted Date Resolved Date [...] LYMPHOMA 07/21/20092009 Overview: Sep 2008, [facility] 3 doses of chemo, [...] Overview: NHL- Sep 2008 [place] [facility] [place] Caceres Major depressive disorder 2022 Overview: ICD-10 update of inactive term Other malignant lymphomas, u nspecified site, extranodal and solid organ sites 10/05/2017 Overview: NHL- Sep 2008 [place] [facility] Caceres documented as of this encounter (statuses as of 01/19/2023) Immunizations Name Administration Dates Next Due COVID-19 [...] Telephone Encounter - August Driver MD - 01/19/2023 8:54 AM EDTSigned Prescriptions: Disp Refills predniSONE 5 MG Oral Tablet (Deltasone) 90 Tab*3 Sig: Take 1 Tablet by mouth in the morning. TAKING 5mg DAILY. Authorizing Provider: AUGUST DRIVER * Telephone Encounter - Yehuda Marie [facility] - 01/18/2023 9:57 PM EDT Pending Prescriptions: Disp Refills predniSONE 5 MG Oral Tablet (Deltasone) 90 Tab*3 Sig: Take 1 Tablet by mouth in the morning. TAKING 5mg DAILY. documented in this encounter Plan of Treatment Upcoming Encounters Date Type Specialty Care Team Description 01/25/2023 Office Visit Pharmacy [facility] [place] [address] [facility] [place] [address] 07/20/2023 Office Visit Neurology Alva Contreras PA-C [address] [place] [address] 07/26/2023 Office Visit Internal Medicine August Driver MD [address] [place] [address] Scheduled Procedures Name Priority Associated Diagnoses Date/Ti [...] Additional history exists CKD PHOS USE SMARTSET 93710 11/16/202310/30, 11/08/2022, 05/10/2022, Additional history exists COLONOSCOPY-EVERY 5 YRS AGES 18-100 11/18/2023 11/17/2018 Depression Screening 01/12/2024 01/11/2023, 02/22/20 15 O2 ASSESSMENT COMPLETED IN PAST YEAR FOR COPD 01/12/2024 01/11/2023, 05/24/2014 (Course Completed) CKD HGB USE SMARTSET 68219 01/19/202401/18, 01/18/2023, 12/31/2022, Additional history exists Lipid [...] this encounter Medical Devices Implanted Type Area Junior High Math Teacher Device Identifier Shelf Expiration Date Model / Serial / Lot Lens Intraoc 21.5 - [id number] - [id number] Implanted:Qty: 1 on 06/10/2020 by Pietro Nuñez MD at OR [facility] Right: Eye [employer]OM[employer] 12/30/2024 [id number] / [id number] / [id number] Lens Intraoc 21.5 - [id number] - [id number] Implanted:Qty: 1 on 06/24/2020 by Pietro Nuñez MD at OR [facility] Left: Eye BAUSCH [employer] LOMB 01/29/2025 [id number] / [id number] / [id number] documented as of this encounter Visit Diagnoses Diagnosis Lung transplant status (HCC) documented in this encounter Care Teams Outside Sales Account Manager Relationship Specialty Start Date End Date August Driver MD [address] [place] [address], [place] [address] PCP - General Internal Medicine 12/13/11 documented as of this encounter
--- OUTSIDE RECORDS SUMMARY | 2023-05-24 01:58 | External Medical Summary ---
Author Name Unknown Address Unknown Organization : Laboratory Report Ordering Provider Test Date Status NATALIE JOHN 01/25/2023 13:16:38 Final Observation Date Value Abnormality Reference (Units ) Status Source 01/25/2023 13:16:38 Whole Blood Final Cytomegalovirus DNA [Units/volume] (viral load) in Specimen by with probe detection 01/25/2023 13:16:38 Not Detected (IU/mL) Final Cytomegalovirus DNA [Log #/volume] (viral load) in Specimen by with probe detection 01/25/2023 13:16:38 Not Detected (log IU/mL) Final REFERENCE RANGE: NOT DETECTE D
This test was developed and its analytical performance
characteristics have been determined by [employer]
[place], [place]. It has
not been cleared or approved by the U.S. Food and Drug
Administration. This assay has been validated pursuant
to the CLIA regulations and is used for clinical
purposes.
For additional information, please refer to
http://[email or web address]/faq/CMVandEBVPCR
(This link is being provided for informational/
educational purposes only.)

Test Performed at:
[facility] [employer] [facility]
[id number] [facility]
[place], [place]
Emory Amador M.D., Ph.D.,Director of Laboratories Performing Location
--- OUTSIDE RECORDS SUMMARY | 2023-05-24 01:58 | External Medical Summary ---
Author Name Unknown Address Unknown Organization K09:[facility] [place] [address] Laboratory Report Ordering Provider Test Date Status NATALIE JOHN 01/25/2023 13:16:38 Final Observation Date Value Abnormality Reference (Units ) Status BUN 01/25/2023 13:16:38 41 Above high normal 6-20 (mg/dL) Final Creatinine 01/25/2023 13:16:38 3.1 Above high normal 0.5-1.0 (mg/dL) Final Glomerular filtration rate/1.73 sq M.predicted [Volume Rate/Area] in Serum, Plasma or Blood by Creatinine-based formula (CKD-EPI) 01/25/2023 13:16:38 16 Below low normal >=60 (mL/min) Final eGFR is calculated based on the CKD-EPI 2020 equation SODIUM 01/25/2023 13:16:38 139 135-146 (m mol/L) Final Potassium 01/25/2023 13:16:38 5.5 Above high normal 3. 5-5.1 (mmol/L) Final Cl 01/25/2023 13:16:38 105 98-107 (mm ol/L) Final CO2 01/25/2023 13:16:38 23 22-32 (mmo l/L) Final Anion gap 01/25/2023 13:16:38 11 7-15 (mmol /L) Final Glucose 01/25/2023 13:16:38 168 Above high normal 70 -120 (mg/dL) Final Calcium 01/25/2023 13:16:38 9.4 8.4-10.2 ( mg/dL) Final Performing Location [facility] [place] [address]
--- OUTSIDE RECORDS SUMMARY | 2023-05-24 01:59 | External Medical Summary ---
Author Name Unknown Address Unknown Organization K09:[facility] [place] [address] Laboratory Report Ordering Provider Test Date Status NATALIE JOHN 01/18/2023 14:06:38 Final Observation Date Value Abnormality Reference (Units ) Status WBC, Total 01/18/2023 14:06:38 6.18 4.00-10.8 0 (K/uL) Final RBC 01/18/2023 14:06:38 3.79 3.85-5.15 (M/uL) Final Hemoglobin 01/18/2023 14:06:38 10.9 Below low normal 12 .0-15.3 (g/dL) Final HCT 01/18/2023 14:06:38 34.7 Below low normal 36. 0-45.2 (%) Final MCV 01/18/2023 14:06:38 91.6 81.5-97.5 (fL) Final MCH 01/18/2023 14:06:38 28.8 27.0-34.0 (pg) Final MCHC 01/18/2023 14:06:38 31.4 32.0-36.0 (g/dL) Final RDW 01/18/2023 14:06:38 15.7 11.5-15.5 (%) Final Platelets 01/18/2023 14:06:38 161 140-400 (K /uL) Final MPV 01/18/2023 14:06:38 8.9 6.6-11.1 ( fL) Final Performing Location [facility] [place] [address]
--- OUTSIDE RECORDS SUMMARY | 2023-05-24 01:59 | External Medical Summary ---
Author Name Unknown Address Unknown Organization : Laboratory Report Ordering Provider Test Date Status NATALIE JOHN 01/18/2023 14:06:38 Final Observation Date Value Abnormality Reference (Units ) Status Everolimus [Mass/volume] in Blood 01/18/2023 14:06:38 10.8 (ng/mL) Final Unable to flag abnormal result(s), please refer
to reference range(s) below:
Trough: 3.0 - 8.0 ng/mL for Transplantation
Trough: 5.0 - 10.0 ng/mL for Oncology/Neurology
Symptoms of toxicity are more likely to occur at
trough levels exceeding 12.0 ng/mL.
This test was developed and its analytical performance
characteristics have been determined by [employer]
[facility] [place], [place]. It has
not been cleared or approved by the U.S. Food and Drug
Administration. This assay has been validated pursuant
to the CLIA regulations and is used for clinical
purposes.

Test Performed at:
[facility]
[address] [facility]
[place], [place]
Emory Amador M.D., Ph.D.,Director of Laboratories Performing Location
--- OUTSIDE RECORDS SUMMARY | 2023-05-24 01:59 | External Medical Summary ---
Author Name Unknown Address Unknown Organization K09:[place] [address] Laboratory Report Ordering Provider Test Date Status KOBE CHOWDHURYANTA 01/18/2023 14:06:38 Final Observation Date Value Abnormality Reference (Units ) Status Albumin 01/18/2023 14:06:38 4.0 3.8-5.0 (g/dL) Final AST (Aspartate aminotransferase) 01/18/2023 14:06:38 22 10-35 (U/L) Final Alk Phos 01/18/2023 14:06:38 86 35-130 (U/L) Final ALT (Alanine aminotransferase) 01/18/2023 14:06:38 8 Below low normal 10-35 (U/L) Final Bilirubin, Total 01/18/2023 14:06:38 0.3 <=1.2 (mg/dL) Final Bilirubin, Direct 01/18/2023 14:06:38 <0.2 0.0-0.3 (mg/dL) Final Protein 01/18/2023 14:06:38 6.5 6.0-8.3 (g/dL) Final Performing Location [place] [address]
--- OUTSIDE RECORDS SUMMARY | 2023-05-24 01:59 | External Medical Summary ---
Author Name Unknown Address Unknown Organization K09:[facility] [place] [address] Laboratory Report Ordering Provider Test Date Status NATALIE JOHN 01/18/2023 14:06:38 Final Observation Date Value Abnormality Reference (Units ) Status BUN 01/18/2023 14:06:38 40 Above high normal 6-20 (mg/dL) Final Creatinine 01/18/2023 14:06:38 3.0 Above high normal 0.5-1.0 (mg/dL) Final Glomerular filtration rate/1.73 sq M.predicted [Volume Rate/Area] in Serum, Plasma or Blood by Creatinine-based formula (CKD-EPI) 01/18/2023 14:06:38 17 Below low normal >=60 (mL/min) Final eGFR is calculated based on the CKD-EPI 2020 equation SODIUM 01/18/2023 14:06:38 137 135-146 (m mol/L) Final Potassium 01/18/2023 14:06:38 5.1 3.5-5.1 (m mol/L) Final Cl 01/18/2023 14:06:38 100 98-107 (mm ol/L) Final CO2 01/18/2023 14:06:38 25 22-32 (mmo l/L) Final Anion gap 01/18/2023 14:06:38 12 7-15 (mmol /L) Final Glucose 01/18/2023 14:06:38 146 Above high normal 70 -120 (mg/dL) Final Calcium 01/18/2023 14:06:38 9.6 8.4-10.2 ( mg/dL) Final Performing Location [facility] [place] [address]
--- OUTSIDE RECORDS SUMMARY | 2023-05-24 01:59 | External Medical Summary ---
Author Name Unknown Address Unknown Organization K01:[facility] - [address] [place] [address] Laboratory Report Ordering Provider Test Date Status VILLA CASPER 01/18/2023 14:06:38 Final Observation Date Value Abnormality Reference (Units ) Status LDL, (direct) 01/18/2023 14:06:38 99 <=129 (mg/dL) Final LDL Cholesterol Reference Ra nges (mg/dL):
<70 Target level for high risk ASCVD patient
<100 Optimal for general population
100-129 Near optimal for general population
130-159 Borderline high
160-189 High
>=190 Very high Performing Location [facility] - [address] [place] [address]
--- OUTSIDE RECORDS SUMMARY | 2023-05-24 01:59 | External Medical Summary | Summary of Care ---
Author Name Unknown Organization [facility] Address [address] [place] [address] Phone [phone] Care Team Providers Care Production Planner Scheduler Name Role Phone August Esposito MD Primary Care Provider + Reason for Visit * Reason Comments Outpatient Testing Encounter Details Date Type Department Care Team Description 01/18/2023 Laboratory Laboratory [facility]ery [facility] [place] [address] [place] [address] [place], Lab Scenery [address] [place] [address] Encounter for long-term (current) use of other medications; Hypomagnesemia; Status post lung transplantation (HCC); Meningitis, 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[facility]); Elevated cholesterol with elevated triglycerides; Major depressive [...] 30 Tablet 12 12/02/2021 Active Litetouch Pen [place] 31G X 8 MM (Insulin Pen Needle)Indications:T [...] group C, by GOLD 2017 classification ([facility]) Inhale 1 Puff by [...] with long-term current use of insulin ([facility]) Use to check sugars [...] Oral Tablet (Deltasone)Indicatio ns:Lung transplant status ([facility]) Take 1 Tablet by [...] Tixagevimab inj 300 mgIndications:Lung transplant status ([facility]) 300 mg IM [id number] 01/21/2022 Active Cilgavimab inj 300 mgIndications:Lung transplant status ([facility]) 300 mg IM [id number] 01/21/2022 Active documented as of this encounter [...] Pain medication agreement 04/18/2012 Overview: Signed 04/18/12 Wesdl-7-uauyiukhfcy deficiency 1 Overview: Prolastin 60mg/kg [facility] 06/07/11[facility] Zamaira given fall 2010 caused arthralgias. [...] HX- NONHODGKIN'S LYMPHOMA 07/21/20092009 Overview: Sep 2008, [facility] [place] 3 doses [place] chemo, remission COPD exacerbation 01/09/2009 12/16/2009 COPD, severity to be determined 01/09/2009 04/13/2011 Overview: 06/05/10: 4 LPM 24hrs/day. 07/26/09: Failed 2 step at [facility], 2 LPM 24 hr/day [...] 12/16/2009 Overview: chronic back pain - sees [facility] Pain Management Other malignant lymphomas, u nspecified site, extranodal and solid organ sites 11/03/2010 Overview: NHL- Sep 2008 at [facility] [place] Caceres Major depressive disorder 2022 Overview: ICD-10 update of inactive term Other malignant lymphomas, u nspecified site, extranodal and solid organ sites 10/05/2017 Overview: NHL- Sep 2008 at [facility] [place] Caceres documented as of this encounter [...] Visit Pharmacy [facility] [place] [address] [facility] [place] [address] 07/20/2023 Office Visit Neurology Alva Contreras PA-C [address] [facility] [place] [address] 07/26/2023 Office Visit Internal Medicine August Esposito MD [address] [facility] [place] [address] Pending Results Name Type Priority Associated Diagnoses Date /Time CBC WITH WBC DIFFERENTIAL Lab Routine Encounter for long-term (current) use of other medications Hypomagnesemia Status post lung transplantation (HCC) 01/18/2023 2:06 PM EDT BASIC METABOLIC PANEL Lab Routine Encounter for long-term (current) use of other medications Hypomagnesemia Status post lung transplantation ([facility]) 01/18/2023 2:06 PM EDT MAGNESIUM Lab Routine Encounter for long-term (current) use of other medications Hypomagnesemia Status post lung transplantation ([facility]) 01/18/2023 2:06 PM EDT TACROLIMUS LEVEL Lab Routine Encounter for long-term (current) use of other medications Hypomagnesemia Status post lung transplantation ([facility]) 01/18/2023 2:06 PM EDT EVEROLIMUS, LC/MS/MS, BLOOD Lab Routine Encounter for long-term (current) use of other medications Hypomagnesemia Status post lung transplantation ([facility]) 01/18/2023 2:06 PM EDT CYTOMEGALOVIRUS DNA, QUANTITATIVE REAL-TIME PCR Lab Routine Encounter for long-term (current) use of other medications Hypomagnesemia Status post lung transplantation ([facility]) 01/18/2023 2:06 PM EDT HEPATIC FUNCTION PANEL Lab Routine Meningitis, 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[facility]) 01/18/2023 2:06 PM EDT LIPID PANEL WITH DIRECT LDL IF TG IS HIGH Lab Routine Elevated cholesterol with elevated triglycerides 01/18/2023 2:06 PM EDT TSH Lab Routine Major depressive disorder with single episode, in partial remission ([facility]) Chapped lips 01/18/2023 2:06 PM EDT CBC [...] Additional history exists CKD PHOS USE SMARTSET 55174 11/16/202310/30, 11/08/2022, 05/10/2022, Additional history exists COLONOSCOPY-EVERY 5 YRS AGES 18-100 11/18/2023 11/17/2018 CKD HGB USE SMARTSET 76089 01/01/202412/31, 12/31/2022, 12/14/2022, Additional history exists Depression [...] this encounter Medical Devices Implanted Type Area Community Support Associate Device Identifier Shelf Expiration Date Model / Serial / Lot Lens Intraoc 21.5 - [id number] - [id number] Implanted:Qty: 1 on 06/10/2020 by Pietro Nuñez MD at OR [facility] Right: Eye BAUSCH [employer] LOMB 12/30/2024 [id number] / [id number] / [id number] Lens Intraoc 21.5 - [id number] - [id number] Implanted:Qty: 1 on 06/24/2020 by Pietro Nuñez MD at OR [facility] Left: Eye BAUSCH [employer] LOMB 01/29/2025 [id number] / [id number] / [id number] documented as of this encounter Visit Diagnoses Diagnosis Encounter for long-term (current) use of other medications Hypomagnesemia 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
--- OUTSIDE RECORDS SUMMARY | 2023-05-24 01:59 | External Medical Summary ---
Author Name Unknown Address Unknown Organization K01[place] [address] [place] [address] Laboratory Report Ordering Provider Test Date Status VILLA CASPER 01/18/2023 14:06:38 Final Observation Date Value Abnormality Reference (Units ) Status Triglyceride 01/18/2023 14:06:38 320 Above high normal <=174 (mg/dL) Final Triglyceride Reference Range s (mg/dL):
<150 Acceptable
150-174 Borderline high
175-499 High
>=500 Very high Cholesterol 01/18/2023 14:06:38 192 <200 (mg /dL) Final Total Cholesterol Reference Ranges (mg/dL):
<200 Desirable
200-239 Borderline high
>=240 High HDL 01/18/2023 14:06:38 41 Below low normal >49 (mg/dL) Final HDL Cholesterol Reference Ra nges (mg/dL):
>=60 High (Desirable)
<50 Low (Undesirable) For Females
<40 Low (Undesirable) For Males NON-HDL CHOLESTEROL 01/18/2023 14:06:38 151 <=159 (mg/dL) Final Non-HDL Cholesterol Referenc e Range (mg/dL):
<100 Target level for high risk ASCVD patient
<130 Optimal for general population
130-159 Near optimal for general population
160-189 Borderline High
190-219 High
>=220 Very High Performing Location [facility] [address] [place] [address]
--- OUTSIDE RECORDS SUMMARY | 2023-05-24 01:59 | External Medical Summary | Summary of Care ---
Author Name Unknown Organization [facility] Address [address] [place] [address] Phone [phone] Care Team Providers Care Automobile Inspector Name Role Phone August Esposito MD Primary Care Provider + Reason for Visit * Reason Comments Outpatient Testing Encounter Details Date Type Department Care Team Description 01/18/2023 Laboratory Laboratory Scenery [facility] [place] [address] [place] [address] [place], Lab Scenery [address] [place] [address] Encounter for long-term (current) use of other medications; Hypomagnesemia; Status post lung transplantation (HCC); Meningitis, 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[facility]); Elevated cholesterol with elevated triglycerides; [...] 30 Tablet 12 12/02/2021 Active Litetouch Pen [place] 31G X 8 MM (Insulin Pen Needle)Indications:T [...] COPD, group C, by GOLD 2017 classification ([facility]) Inhale 1 Puff by mouth [...] disease, with long-term current use of insulin ([facility]) Use to check sugars 4 [...] MG Oral Tablet (Deltasone)Indicatio ns:Lung transplant status ([facility]) Take 1 Tablet by mouth [...] Status Tixagevimab inj 300 mgIndications:Lung transplant status ([facility]) 300 mg IM [id number] 01/21/2022 Active Cilgavimab inj 300 mgIndications:Lung transplant status ([facility]) 300 mg IM [id number] 01/21/2022 Active documented as of this encounter [...] Pain medication agreement 04/18/2012 Overview: Signed 04/18/12 Izuuy-5-oyoyxfwnchs deficiency 1 Overview: Prolastin 60mg/kg [facility] 06/07/11[facility] Zamaira given fall 2010 caused arthralgias. [...] HX- NONHODGKIN'S LYMPHOMA 07/21/20092009 Overview: Sep 2008, [facility] [place] 3 doses of chemo, remission COPD exacerbation 01/09/2009 12/16/2009 COPD, severity to be determined 01/09/2009 04/13/2011 Overview: 06/05/10: 4 LPM 24hrs/day. 07/26/09: Failed 2 step at [facility], 2 LPM 24 hr/day 07/15/09: Nocturnal [...] Overview: chronic back pain - sees [facility] Pain Management Other malignant lymphomas, u nspecified site, extranodal and solid organ sites 11/03/2010 Overview: NHL- Sep 2008 at [facility] [place] Caceres Major depressive disorder 2022 Overview: ICD-10 update of inactive term Other malignant lymphomas, u nspecified site, extranodal and solid organ sites 10/05/2017 Overview: [facility] [...] Visit [facility] [place] [address] [facility] [place] [address] 07/20/2023 Office Visit Neurology Alva Contreras PA-C [address] [facility] [place] [address] 07/26/2023 Office Visit Internal Medicine August Esposito MD [address] [facility] [place] [address] Pending Results Name Type Priority Associated Diagnoses Date /Time CBC WITH WBC DIFFERENTIAL Lab Routine Encounter for long-term (current) use of other medications Hypomagnesemia Status post lung transplantation (HCC) 01/18/2023 2:06 PM EDT BASIC METABOLIC PANEL Lab Routine Encounter for long-term (current) use of other medications Hypomagnesemia Status post lung transplantation ([facility]) 01/18/2023 2:06 PM EDT MAGNESIUM Lab Routine Encounter for long-term (current) use of other medications Hypomagnesemia Status post lung transplantation ([facility]) 01/18/2023 2:06 PM EDT TACROLIMUS LEVEL Lab Routine Encounter for long-term (current) use of other medications Hypomagnesemia Status post lung transplantation ([facility]) 01/18/2023 2:06 PM EDT EVEROLIMUS, LC/MS/MS, BLOOD Lab Routine Encounter for long-term (current) use of other medications Hypomagnesemia Status post lung transplantation ([facility]) 01/18/2023 2:06 PM EDT CYTOMEGALOVIRUS DNA, QUANTITATIVE REAL-TIME PCR Lab Routine Encounter for long-term (current) use of other medications Hypomagnesemia Status post lung transplantation ([facility]) 01/18/2023 2:06 PM EDT HEPATIC FUNCTION PANEL Lab Routine Meningitis, 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[facility]) 01/18/2023 2:06 PM EDT LIPID PANEL WITH DIRECT LDL IF TG IS HIGH Lab Routine Elevated cholesterol with elevated triglycerides 01/18/2023 2:06 PM EDT TSH Lab Routine Major depressive disorder with single episode, in partial remission ([facility]) Chapped lips 01/18/2023 2:06 PM [...] Additional history exists CKD PHOS USE SMARTSET 92751 11/16/202310/30, 11/08/2022, 05/10/2022, Additional history exists COLONOSCOPY-EVERY 5 YRS AGES 18-100 11/18/2023 11/17/2018 CKD HGB USE SMARTSET 43131 01/01/202412/31, 12/31/2022, 12/14/2022, Additional history exists Depression [...] this encounter Medical Devices Implanted Type Area Planer Operator Device Identifier Shelf Expiration Date Model / Serial / Lot Lens Intraoc 21.5 - [id number] - [id number] Implanted:Qty: 1 on 06/10/2020 by Pietro Nuñez MD at OR [facility] Right: Eye BAUSCH [employer] LOMB 12/30/2024 [id number] / [id number] / [id number] Lens Intraoc 21.5 - [id number] - [id number] Implanted:Qty: 1 on 06/24/2020 by Pietro Nuñez MD at OR [facility] Left: Eye BAUSCH & LOMB 01/29/2025 [id number] / [id number] / [id number] documented as of this encounter Visit Diagnoses Diagnosis Encounter for long-term (current) use of other medications Hypomagnesemia 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
--- OUTSIDE RECORDS SUMMARY | 2023-05-24 01:59 | External Medical Summary ---
Author Name Unknown Address Unknown Organization K09:[facility] [place] [address] Laboratory Report Ordering Provider Test Date Status DELFINA JOHNHORTENSIA 01/18/2023 14:06:38 Final Observation Date Value Abnormality Reference (Units ) Status Magnesium 01/18/2023 14:06:38 3.2 Above high normal 1. 5-2.6 (mg/dL) Final Performing Location [facility] [place] [address]
--- OUTSIDE RECORDS SUMMARY | 2023-05-24 01:59 | External Medical Summary ---
Author Name Unknown Address Unknown Organization K09:[facility] [place] [address] Laboratory Report Ordering Provider Test Date Status NATALIE JOHN 01/18/2023 14:06:38 Final Observation Date Value Abnormality Reference (Units ) Status SYNC LEUKOCYTES IN BLOOD BY AUTOMATED COUNT 01/18/2023 14:06:38 6.18 4.00-10.80 (K/uL) Final Segs 01/18/2023 14:06:38 83.5 Above high normal 40.0-75.0 (%) Final Lymphs % 01/18/2023 14:06:38 8.7 Below low normal 18.0-42.0 (%) Final Monos 01/18/2023 14:06:38 6.8 1.0-11.0 (%) Final Eosinophils 01/18/2023 14:06:38 0.5 0.0-6.0 (%) Final Basos 01/18/2023 14:06:38 0.5 0.0-2.0 (%) Final Absolute Segs 01/18/2023 14:06:38 5.16 1.80-7.70 (K/uL) Final Lymphs, absolute 01/18/2023 14:06:38 0.54 Below low normal 1.00-4.80 (K/ul) Final Monos, Abs 01/18/2023 14:06:38 0.42 0.00-1.10 (K/uL) Final Eos, Abs 01/18/2023 14:06:38 0.03 0.00-0.70 (K/uL) Final Basos, Abs 01/18/2023 14:06:38 0.03 0.00-0.20 (K/uL) Final Performing Location [facility] [place] [address]
--- OUTSIDE RECORDS SUMMARY | 2023-05-24 01:59 | External Medical Summary | Summary of Care ---
Author Name Unknown Organization [facility] Address [address] [place] [address] Phone [phone] Care Team Providers Care Nail Maker Name Role Phone August Esposito MD Primary Care Provider + Reason for Visit * Reason Comments Outpatient Testing Encounter Details Date Type Department Care Team Description 01/18/2023 [facility] [place] [address] [place] [address] [facility] Lab Scenery [address] [place] [address] Arrived Allergies Active Allergy Reactions Severity Noted Date [...] 30 Tablet 12 12/02/2021 Active Litetouch Pen [place] 31G X 8 MM (Insulin Pen Needle)Indications:T [...] by GOLD 2017 classification ([facility]) Inhale 1 Puff by mouth in [...] current use of insulin ([facility]) Use to check sugars 4 times [...] (Deltasone)Indicatio ns:Lung transplant status ([facility]) Take 1 Tablet by mouth in [...] 300 mgIndications:Lung transplant status ([facility]) 300 mg IM [id number] 01/21/2022 Active Cilgavimab inj 300 mgIndications:Lung transplant status ([facility]) 300 mg IM [id number] 01/21/2022 Active documented as of this encounter [...] Pain medication agreement 04/18/2012 Overview: Signed 04/18/12 Itewn-2-ebaipomkseb deficiency 1 Overview: Prolastin 60mg/kg started 06/07/11, [facility]. Zamaira given fall 2010 caused arthralgias. 08/28/10 [...] HX- NONHODGKIN'S LYMPHOMA 07/21/20092009 Overview: Sep 2008, [facility] [place] 3 doses of chemo, remission COPD [...] 12/16/2009 Overview: chronic back pain - sees [facility] Pain Management Other malignant lymphomas, u nspecified site, extranodal and solid organ sites 11/03/2010 Overview: NHL- Sep 2008 at [facility] [place] Caceres Major depressive disorder 2022 Overview: ICD-10 update of inactive term Other malignant lymphomas, u nspecified site, extranodal and solid organ sites 10/05/2017 Overview: NHL- Sep 2008 at [facility] [place] Caceres documented as of this encounter (statuses as of 01/18/2023) Immunizations Name Administration Dates Next Due COVID-19 mRNA, LNP-s, No Pre serve, 2-Dose Series (Moderna) 01/24/2021,07/03/2020,05/31/2020 Covid-19, Mrna, Lnp-s, Pf, B ivalent, 30 Mcg, IM, 12 yrs and above (LogMeIn) 04/21/2022 H1N1 2009 Influenza, IM 06/11/2009 Hepatitis [...] 01/25/2023 Office Visit [facility] [address] [place] [phone] 07/26/2023 Office Visit Internal Medicine [facility], August Alvarado MD [address] [place] [address] Scheduled Procedures Name Priority Associated Diagnoses Date/Ti [...] Additional history exists CKD PHOS USE SMARTSET 29197 11/16/202310/30, 11/08/2022, 05/10/2022, Additional history exists COLONOSCOPY-EVERY 5 YRS AGES 18-100 11/18/2023 11/17/2018 CKD HGB USE SMARTSET 39526 01/01/202412/31, 12/31/2022, 12/14/2022, Additional history exists Depression [...] this encounter Medical Devices Implanted Type Area Stamp Analyst Device Identifier Shelf Expiration Date Model / Serial / Lot Lens Intraoc 21.5 - [id number] - [id number] Implanted:Qty: 1 on 06/10/2020 by Pietro Nuñez MD at OR [facility] Right: Eye BAUSCH [employer] LOMB 12/30/2024 [id number] / [id number] / [id number] Lens Intraoc 21.5 - [id number] - [id number] Implanted:Qty: 1 on 06/24/2020 by Pietro Nuñez MD at OR [facility] Left: Eye BAUSCH & LOMB 01/29/2025 [id number] / [id number] / [id number] documented as of this encounter Care Teams Nail Maker Relationship Specialty Start Date End Date August Esposito MD [address] [place] [address], [place] [address] PCP - General Internal Medicine 12/13/11 documented as of this encounter
--- OUTSIDE RECORDS SUMMARY | 2023-05-24 01:59 | External Medical Summary ---
Author Name Unknown Address Unknown Organization : Laboratory Report Ordering Provider Test Date Status NATALIE JOHN 01/18/2023 14:06:38 Final Observation Date Value Abnormality Reference (Units ) Status Source 01/18/2023 14:06:38 Whole Blood Final Cytomegalovirus DNA [Units/volume] (viral load) in Specimen by with probe detection 01/18/2023 14:06:38 Not Detected (IU/mL) Final Cytomegalovirus DNA [Log #/volume] (viral load) in Specimen by with probe detection 01/18/2023 14:06:38 Not Detected (log IU/mL) Final REFERENCE RANGE: NOT DETECTE D
This test was developed and its analytical performance
characteristics have been determined by [facility]
[employer] [place], [place]. It has
not been cleared or approved by the U.S. Food and Drug
Administration. This assay has been validated pursuant
to the CLIA regulations and is used for clinical
purposes.
For additional information, please refer to
http://education.[employer].com/faq/CMVandEBVPCR
(This link is being provided for informational/
educational purposes only.)

Test Performed at:
[facility]
[address] [facility]
[place], [place]
Emory Amador M.D., Ph.D.,Director of Laboratories Performing Location
--- OUTSIDE RECORDS SUMMARY | 2023-05-24 01:59 | External Medical Summary ---
Author Name Unknown Address Unknown Organization K01:[facility]AT[facility] - [address] [place] [address] Laboratory Report Ordering Provider Test Date Status NATALIE JOHN 01/18/2023 14:06:38 Final Test performed by [facility] [employer]. Therapeutic ranges vary with type of transplant, time post-transplant, clinical protocols, and testing methodology. Results should be interpreted with clinical presentation and any signs rejection/toxicity. Observation Date Value Abnormality Reference (Units ) Status Tacrolimus (FK506) 01/18/2023 14:06:38 15.8 Above upper panic limits 4.0-12.0 (ng/mL) Final Performing Location [facility] - [address] [place] [address]
--- OUTSIDE RECORDS SUMMARY | 2023-05-24 02:00 | External Medical Summary | Summary of Care ---
Author Name Unknown Organization [facility] Address [address] [place] [address] Phone [phone] Care Team Providers Care Primary Operator Name Role Phone August Esposito MD Primary Care Provider + Reason for Referral * Medication Prior Authorization - Closed Specialty Diagnoses / Procedures Referred By Contac t Referred To Contact Diagnoses Disc disorder of lumbar region Cheryl Murillo MD [address] [place] [address] Referral ID Status Reason Start Date Expiration Date Visits Re quested Visits Authorized [id number] Closed 999 999 * Medication Prior Authorization - Closed Specialty Diagnoses / Procedures Referred By Contac t Referred To Contact Diagnoses Disc disorder of lumbar region Cheryl Murillo MD [address] [place] [address] Referral ID Status Reason Start Date Expiration Date Visits Re quested Visits Authorized [id number] Closed 999 999 Reason for Visit * Reason Onset Date Comments Medication Refill 01/06/2023 Encounter Details Date Type Department Care Team Description 01/06/2023 Refill General Internal Medicine Angelo [facility] [address] [place] [address] August Esposito MD [address] [place] [address] Disc disorder of lumbar region Allergies Active Allergy Reactions Severity Noted Date Comments Pollen 01/02/2020 Other reaction(s): Sneezing (finding) documented as of this encounter (statuses as of 01/07/2023) Medications Medication Sig Dispensed Refills Start Date [...] 30 Tablet 12 12/02/2021 Active Litetouch Pen [place] 31G X 8 MM (Insulin Pen Needle)Indications: Type 2 diabetes mellitus with hemoglobin A1c goal of less than 7.0% (HCC) USE WITH INSULIN 3 TIMES A DAY WITH MEALS. 100 Each 5 01/07/2022 Active Insulin Lispro (1 Unit Dial) 100 UNIT/ML Subcutaneous Solution Pen-injector (Admelog)Indication s:Type 2 diabetes mellitus with hemoglobin A1c goal of less than 7.0% ([facility]) Inject under the skin 8 Units three times a day with meals . Hold if meal will be missed 9 mL 2 02/04/2022 Active Accu-Chek Softclix LancetsIndications: Type 2 diabetes mellitus with hemoglobin A1c goal of less than 7.0% ([facility]) Test one time daily. Dx: E11.9 100 Each 3 04/04/2022 Active Insulin Glargine Solostar 100 UNIT/ML Subcutaneous Solution Pen-injector (Lantus SoloStar)Indication s:Type 2 diabetes mellitus with hemoglobin A1c goal of less than 7.0% ([facility]) Inject 15 Units under the skin at bedtime. 15 mL 0 05/20/2022 Active Fluticasone Furoate-Vilanterol 100-25 MCG/ACT Inhalation Aerosol Powder Breath Activated (BREO ellipta)Indications :COPD, group C, by GOLD 2017 classification ([facility]) Inhale 1 Puff by mouth in [...] with long-term current use of insulin ([facility]) Use to check sugars 4 times a day. 400 Strip 3 07/05/2022 Active Magnesium 400 MG Oral Tablet Take by mouth. 0 Active Citalopram Hydrobromide 40 MG Oral Tablet (CeleXA) Take 1 Tablet by mouth in the morning. 0 Active Fluconazole 200 MG Oral Tablet (Diflucan) Take 3 Tablets by mouth in the morning. 0 Active Furosemide 40 MG Oral Tablet (Lasix) Take 1 Tablet by mouth in the morning. 0 Active Apixaban 2.5 MG Oral Tablet (Eliquis)Indication s:Acute deep vein thrombosis (DVT) of right upper extremity, unspecified vein (HCC) Take 1 Tablet by mouth in the morning and 1 Tablet before bedtime. 60 Tablet 1 11/22/2022 Active Pantoprazole Sodium 40 MG Oral Tablet Delayed Release (Protonix)Indicatio ns:Gastroesophageal reflux disease without esophagitis Take 1 Tablet by mouth in the morning. 90 Tablet 3 11/22/2022 Active predniSONE 5 MG Oral Tablet (Deltasone)Indicati [...] before bedtime. 60 Tablet 0 01/07/2023 Active HYDROmorphone HCl 2 MG Oral Tablet (Dilaudid)Indicatio ns:Disc disorder of lumbar region Take 1 Tablet by mouth every 12 hours as needed for Pain, Severe. 60 Tablet 0 12/09/2022 3 Discontinu ed(Refill) oxyCODONE HCl ER 15 MG Oral Tablet ER 12 Hour Abuse-Deterrent (oxyCONTIN)Indicati ons:Disc disorder of lumbar region Take 1 Tablet by mouth in the morning and 1 Tablet before bedtime. 60 Tablet 0 12/09/2022 3 Discontinu ed(Refill) Hospital, Clinic, or Other Facility Administered Medication Ordered Dose Route Frequency Start Date End Date Status Tixagevimab inj 300 mgIndications:Lung transplant status (HCC) 300 mg IM [id number] 01/21/2022 Active Cilgavimab inj 300 mgIndications:Lung transplant status (HCC) 300 mg IM [id number] 01/21/2022 Active documented as of this encounter (statuses as of 01/07/2023) Active Problems Problem Noted Date History of [...] Pain medication agreement 04/18/2012 Overview: Signed 04/18/12 Wsohz-9-ktxylfhfitc deficiency 1 Overview: Prolastin 60mg/kg started 06/07/11, [...] as of this encounter (statuses as of 01/07/2023) Resolved Problems Problem Noted Date Resolved Date [...] LYMPHOMA 07/21/20092009 Overview: Sep 2008, [facility], received 3 doses of chemo, remission COPD exacerbation 01/09/2009 12/16/2009 COPD, severity to be determined 01/09/2009 04/13/2011 Overview: 06/05/10: 4 LPM 24hrs/day. 07/26/09: Failed 2 step at [facility], 2 LPM 24 hr/day 07/15/09: [...] 12/16/2009 Overview: chronic back pain - sees [facility] Pain Management Other malignant lymphomas, u nspecified site, extranodal and solid organ sites 11/03/2010 Overview: NHL- Sep 2008 at [facility] Dr Caceres Major depressive disorder 2022 Overview: ICD-10 update of inactive term Other malignant lymphomas, u nspecified site, extranodal and solid organ sites 10/05/2017 Overview: NHL- Sep 2008 at [facility] Dr Caceres documented as of this encounter (statuses as of 01/07/2023) Immunizations Name Administration Dates Next Due COVID-19 [...] Seasonal Influenza, Quadriva lent Hd (Fluzone Hd) 01/20/2022,02/02/2021 Seasonal Influenza, Quadriva lent, No Preserve, IM [...] Telephone Encounter - Cheryl Murillo MD - 01/07/2023 12:50 PM EDTSigned Prescriptions: Disp Refills HYDROmorphone HCl 2 MG Oral Tablet (Dilaud*60 Tab*0 Sig: Take 1 Tablet by mouth every 12 hours as needed for Pain, Severe. Authorizing Provider: CHERYL MURILLO oxyCODONE HCl ER 15 MG Oral Tablet ER 12 H*60 Tab*0 Sig: Take 1 Tablet by mouth in the morning and 1 Tablet before bedtime. Authorizing Provider: CHERYL MURILLO * Telephone Encounter - Nickolas Ramos [facility] - 01/07/2023 12:40 PM EDTPending Prescriptions: Disp Refills HYDROmorphone HCl 2 MG Oral Tablet (Dilaud*60 Tab*0 Sig: Take 1 Tablet by mouth every 12 hours as needed for Pain, Severe. oxyCODONE HCl ER 15 MG Oral Tablet ER 12 H*60 Tab*0 Sig: Take 1 Tablet by mouth in the morning and 1 Tablet before bedtime. * Telephone Encounter - Nickolas Ramos [facility] - 01/07/2023 12:39 PM EDT I have reviewed the patients controlled substance dispensing history in the Prescription Drug Monitoring Program in compliance with the [facility] regulations before prescribing a controlled substance. PDMP checked on 01/07/2023. Pending Prescriptions: Disp Refills HYDROmorphone HCl 2 MG Oral Tablet (Dilau*60 Tab*0 Sig: Take 1 Tablet by mouth every 12 hours as needed for Pain, Severe. oxyCODONE HCl ER 15 MG Oral Tablet ER 12 *60 Tab*0 Sig: Take 1 Tablet by mouth in the morning and 1 Tablet before bedtime. Last Visit: 11/22/2022 (in office), 04/02/2020 (telemedicine) Next Visit: 01/11/2023 Date medication was last filled: 12/09/22 for both Date medication is due for refill: 01/07/23 for both Pharmacy: [facility] [place] Is this request for a controlled substance? Yes and Urine Drug Screen Not completed Toxicology results: Results for orders placed or performed in [...] results can be found in Results Review. Please approve if appropriate. Thank You, Nickolas Davalos [facility] Clinical Pharmacist [facility] ([facility]) (formerly Telepharmacy) 01/07/2023, 12:39 PM * Telephone Encounter - JULISSA Torres Tech - 01/06/2023 12:33 PM EDT Did you pend patient's preferred pharmacy and medication before forwarding?yes Pharmacy: [facility]- [place] Pending Prescriptions: Disp Refills HYDROmorphone HCl 2 MG Oral Tablet (Dilau*60 Tab*0 Sig: Take 1 Tablet by mouth every 12 hours as needed for Pain, Severe. oxyCODONE HCl ER 15 MG Oral Tablet ER 12 *60 Tab*0 Sig: Take 1 Tablet by mouth in the morning and 1 Tablet before bedtime. Last Visit: 11/22/2022 (in office), 04/02/2020 (telemedicine) Next Visit: 01/11/2023 If no future appointments scheduled, and last appointment is greater than a year ago, please schedule patient for a follow-up appointment Last date the medication was ordered: 12/09/2022 Is this request for a controlled substance?estela 1 Tablet by mouth every 12 hours as needed for Pain,Severe Urine Drug Screen: Results for orders placed or performed in [...] results can be found in Results Review. Patient Phone Numbers Labs: Lab Results Component Value Date/Time CREAT 2.4 (H) 12/31/2022 12:44 PM CREAT 1.27 (A) 06/15/2021 12:00 AM CREAT 1.6 (H) 04/09/2020 02:17 PM POTASSIUM 4.5 12/31/2022 12:44 PM POTASSIUM 3.8 07/18/2021 04:14 AM POTASSIUM 4.4 04/09/2020 02:17 PM TSH 1.306 10/29/2021 12:00 AM TSH 0.47 01/24/2019 03:24 PM LDLCALC 83 06/16/2022 12:00 AM LDLCALC 35 12/06/2018 02:31 PM LDLDIRECT 85 12/14/2022 12:18 PM LDLDIRECT NOT APPLICABLE 12/06/2018 02:31 PM LDLDIRECT 87 02/21/2015 03:17 PM ALT 13 12/14/2022 12:24 PM ALT 32 04/09/2020 02:17 PM HGBA1C 6.3 (H) 12/14/2022 12:17 PM HGBA1C 6.2 (A) 06/16/2022 12:00 AM HGBA1C 6.7 (H) 07/16/2021 04:29 AM HGBA1C 7.6 (H) 04/09/2020 02:17 PM documented in this encounter Plan of Treatment Upcoming Encounters Date Type Specialty Care Team Description 01/11/2023 Office Visit Internal Medicine August Esposito MD [address] [place] [address] 01/25/2023 Office Visit Pharmacy [facility] [address] [place] [address] 12/23/2023 Office Visit Neurology Jayashree Sparks, DO [address], [place] [id number] Scheduled Procedures Name Priority Associated Diagnoses Date/Ti me COLONOSCOPY FLEXIBLE PROXIMA L DIAGNOSTIC Recall Screening for malignant neoplasm of colon Health Maintenance Due Date Last Done Comments *ADVANCE DIRECTIVE NOT ON FILE 08/25/2016 DIABETES-EYE EXAM 03/18/2021 03/18/2020, , 03/19/2014, Additional history exists Depression Screening 04/09/2021 04/09/2020, 02/22/20 15 Mammogram 07/18/2021 07/18/2020, 05/0 12/2018, 09/07/2018, Additional history exists DXA Scan 09/11/2021 09/11/2018, 09/11/2018 Zoster Vaccines (2 of 2) 09/16/2022 07/22/2022 Influenza Vaccine (FLU shot) (#1) 2022 01/20/2022, 02/02/2021, 01/02/2020, Additional history exists Albumin/Creatinine Ratio 06/16/2023 023, 09/11/2019, 12/06/2018, Additional history exists HbA1c 06/16/2023 12/14/2022, 10/30, 06/16/2022, Additional history exists GFR 07/01/2023 12/31/2022, 11/30, 12/01/2022, Additional history exists Diabetic Foot Exam 07/06/2023 07/05/2022, 0 06/10/2021, 07/10/2020, Additional history exists CKD PHOS USE SMARTSET 55995 11/16/202310/30, 11/08/2022, 05/10/2022, Additional history exists COLONOSCOPY-EVERY 5 YRS AGES 18-100 11/18/2023 11/17/2018 O2 ASSESSMENT COMPLETED IN PAST YEAR FOR COPD 11/23/2023 11/22/2022, 05/24/2014 (Course Completed) CKD HGB USE SMARTSET 83721 01/01/202412/31, 12/31/2022, 12/14/2022, Additional history exists Lipid Panel 12/15/2027 12/14/2022, 06/02, 06/15/2021, Additional history exists DTaP,Tdap,and Td Vaccines (3 - Td or Tdap) 07/22/2032 07/22/2022, 01/05/2012 Hepatitis B Completed 12/06/2018, 050 06/2018, 09/01/2018, Additional history exists COVID-19 Vaccine Completed 04/21/2022, , 07/03/2020, Additional history exists Pneumococcal Vaccine: 65+ Years Completed 07/05/2022, 08/20/2016, 02/13/2015, Additional history exists Alpha-1 Antitrypsin Discontinued GARDASIL-HPV IMMUNIZATION SERIES Aged Out No longer eligible based on patient's age to complete this topic MENINGOCOCCAL (MENACTRA/MENVEO) Aged Out No longer eligible based on patient's age to complete this topic documented as of this encounter Medical Devices Implanted Type Area Singing Messenger Device Identifier Shelf Expiration Date Model / Serial / Lot Lens Intraoc 21.5 - [id number] - [id number] Implanted:Qty: 1 on 06/10/2020 by Pietro Nuñez MD at OR [facility] Right: Eye [employer] 12/30/2024 [id number] / [id number] / [id number] Lens Intraoc 21.5 - [id number] - [id number] Implanted:Qty: 1 on 06/24/2020 by Pietro Nuñez MD at OR [facility] Left: Eye [employer] 01/29/2025 [id number] / [id number] / [id number] documented as of this encounter Visit Diagnoses Diagnosis Disc disorder of lumbar region Other and unspecified disc disorder of lumbar region documented in this encounter Care Teams Primary Operator Relationship Specialty Start Date End Date August Esposito MD [address] [place] [address], [place] [address] PCP - General Internal Medicine 12/13/11 documented as of this encounter
--- OUTSIDE RECORDS SUMMARY | 2023-05-24 02:00 | External Medical Summary ---
Author Name Unknown Address Unknown Organization : Laboratory Report Ordering Provider Test Date Status NATALIE JOHN 12/31/2022 12:44:14 Final Observation Date Value Abnormality Reference (Units ) Status Everolimus [Mass/volume] in Blood 12/31/2022 12:44:14 3.6 (ng/mL) Final Unable to flag abnormal result(s), please refer
to reference range(s) below:
Trough: 3.0 - 8.0 ng/mL for Transplantation
Trough: 5.0 - 10.0 ng/mL for Oncology/Neurology
Symptoms of toxicity are more likely to occur at
trough levels exceeding 12.0 ng/mL.
This test was developed and its analytical performance
characteristics have been determined by [facility] [place], [place]. It has
not been cleared or approved by the U.S. Food and Drug
Administration. This assay has been validated pursuant
to the CLIA regulations and is used for clinical
purposes.

Test Performed at:
[facility]
[address] [facility]
[place], [place]
Emory Amador M.D., Ph.D.,Director of Laboratories Performing Location
--- OUTSIDE RECORDS SUMMARY | 2023-05-24 02:00 | External Medical Summary | Summary of Care ---
Author Name Unknown Organization [facility] Address [address] [place] [address] Phone [phone] Care Team Providers Care Community Service Worker Name Role Phone August Esposito MD Primary Care Provider + Reason for Referral * Evaluate & Treat - Unlimited Visits (Within 30 days (routine)) - Pending Review Specialty Diagnoses / Procedures Referred By Verito mendez Referred To Contact Ophthalmology Diagnoses Type 2 diabetes mellitus with stage 3b chronic kidney disease, with long-term current use of insulin ([facility]) August Esposito MD [facility] [address] [id number] Referral ID Status Reason Start Date Expiration Date Visits Requested Visits Authorized [id number] Pending Review Specialty Services Required 01/11/[phone] Question Answer Referral Priority Within 30 days (routine) Does patient want glasses or contact check exam included? Yes Comments Diabetic Eye Exam Reason for Visit * Reason Onset Date Comments Follow Up 6 month follow u p. Patient denied any new concerns. Medication Administration 01/11/2023 Flu an d/or Pneumo Inj Encounter Details Date Type Department Care Team Description 01/11/2023 Office Visit General Internal Medicine [place] [facility] [place] [address] [id number] August Esposito MD [address] [id number] Type 2 diabetes mellitus with stage 3b chronic kidney disease, with long-term current use of insulin ([facility])*; Elevated cholesterol with elevated triglycerides; Chapped lips; Major depressive disorder with single episode, in partial remission ([facility]); Need for prophylactic vaccination and inoculation against influenza; Disc disorder of lumbar region; History of recurrent deep vein thrombosis (DVT); Hypertension goal BP (blood pressure) < 140/90; Encounter for therapeutic drug level monitoring; Mild dementia with mood disturbance, unspecified dementia type ([facility]); Pain medication agreement; Benign hypertension with stage 3b chronic kidney disease ([facility]); Type 2 diabetes mellitus with hemoglobin A1c goal of less than 7.0% ([facility]); Constipation, unspecified constipation type; 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[facility]); History of pulmonary embolism; Lung transplant status ([facility]) Allergies Active Allergy Reactions Severity Noted Date Comments Pollen 01/02/2020 Other reaction(s): Sneezing (finding) documented as of this encounter (statuses as of 01/11/2023) Medications Medication Sig Dispensed Refills Start Date [...] 30 Tablet 12 12/02/2021 Active Litetouch Pen [place] 31G X 8 MM (Insulin Pen Needle)Indications: [...] C, by GOLD 2017 classification ([facility]) Inhale 1 Puff by mouth in the [...] 180 days 1 Each 1 06/11/2022 Active Additional Information Patient not taking.Reported on 01/11/2023 Accu-Chek Guide In Vitro Strip (Glucose Blood)Indications:T ype 2 diabetes mellitus with stage 3b chronic kidney disease, with long-term current use of insulin ([facility]) Use to check sugars 4 times a [...] MG Oral Tablet (Deltasone)Indicati ons:Lung transplant status ([facility]) Take 1 Tablet by mouth in the [...] single episode, in partial remission ([facility]) Take 1 Tablet by mouth in the morning. 90 Tablet 1 01/11/2023 Active Polyethylene Glycol 3350 17 GM/SCOOP Oral Powder (MiraLax)Indication s:Constipation, unspecified constipation type Take 17 g by mouth as needed for Constipation. Dissolve one heaping tablespoon in 8 ounces of water or juice. 17 g 0 01/11/2023 Active Citalopram Hydrobromide 40 MG Oral Tablet Take 1 Tablet by mouth in the morning. 0 01/12/20 23 Discontinu ed(Refill) Apixaban 2.5 MG Oral TabletIndications:A cute deep vein thrombosis (DVT) of right upper extremity, unspecified vein (HCC) Take 1 Tablet by mouth in the morning and 1 Tablet before bedtime. 60 Tablet 1 11/22/2022 01/12/20 23 Discontinu ed(Refill) Hospital, Clinic, or Other Facility Administered Medication Ordered Dose Route Frequency Start Date End Date Status Tixagevimab inj 300 mgIndications:Lung transplant status (HCC) 300 mg IM [id number] 01/21/2022 Active Cilgavimab inj 300 mgIndications:Lung transplant status ([facility]) 300 mg IM [id number] 01/21/2022 Active documented as of this encounter (statuses as of 01/11/2023) Active Problems Problem Noted Date History of [...] Pain medication agreement 04/18/2012 Overview: Signed 04/18/12 Svflg-7-djapdbqtlgc deficiency 1 Overview: Prolastin 60mg/kg [facility] 06/07/11[facility] Zamaira given fall 2010 caused arthralgias. 08/28/10 - <30 10/12/08 - MM allele 08/22/08 - 232 Proteinuria 10/08/2009 History of tobacco use 09/10/2009 Chronic rhinitis 09/10/2009 Esophageal reflux Disc disorder of lumbar region Overview: has had multiple surgeries - now w/ chronic back pain from postlaminectomy syndrome documented as of this encounter (statuses as of 01/11/2023) Resolved Problems Problem Noted Date Resolved Date [...] 24hrs/day. 07/26/09: Failed [address] [facility], 2 LPM 24 hr/day 07/15/09: Nocturnal [...] 12/16/2009 Overview: chronic back pain - sees [facility] Pain Management Other malignant lymphomas, u [...] as of this encounter (statuses as of 01/11/2023) Immunizations Name Administration Dates Next Due COVID-19 mRNA, LNP-s, No Pre serve, 2-Dose Series (Moderna) 01/24/2021,07/03/2020,05/31/2020 Covid-19, Mrna, Lnp-s, Pf, B ivalent, 30 Mcg, IM, 12 yrs and above ([employer]) 04/21/2022 H1N1 2009 Influenza, IM 06/11/2009 Hepatitis [...] Former Cigarettes 1.5 25 Smokeless Tobacco: Never Tobacco Cessation:Counseling Given: Not Answered Alcohol Use Standard Drinks/Week Comments No 0 [...] Sign Reading Time Taken Comments Blood Pressure 110/52 01/11/2023 2:22 PM EDT Pulse 83 01/11/2023 2:22 PM EDT Temperature 36.7 C (98.1 F) 01/11/2023 2:22 PM ED T Respiratory Rate - - Oxygen Saturation 96% 01/11/2023 2:22 PM EDT Inhaled Oxygen Concentration - - Weight 52.1 kg (114 lb 14.4 oz) 01/11/2023 2:22 PM EDT Height 157.5 cm (5' 2") 01/11/2023 2:22 PM EDT Body Mass Index 21.02 01/11/2023 2:22 PM EDT documented in this encounter Progress Notes * August Esposito MD - 01/11/2023 2:42 PM EDT Chief Complaint Patient presents with Follow Up 6 month follow up. Patient denied any new concerns. Medication Administration Flu and/or Pneumo Inj SUBJECTIVE: Shagufta Lanier is a 67 year old female with PMH as below who presents for follow up DM, lung transplant, h/o dvt and pe, dementia, depression, h/o cryptococcal meningitis. No cp, pressure, mood has been good. Saw pulm last week, pft and breathing were good, feel transplant doing well. Sugars controlled. Does still have fatigue from hospitalization over summer for meningitis. She is taking fluconazole. Stopped eliquis on own, not sure why, no excessive bleeding or bruising. Memory stable, due to see neurology not scheduled until 2023. Also lips chapped for months, using lip balm, helps some. 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 Pain medication agreement Z02.89 Type 2 diabetes mellitus with hemoglobin A1c goal of less than 7.0% ([facility]) E11.9 Hypoxemia R09.02 History of pulmonary embolism Z86.711 H/O lymphoma Z85.72 PFO (patent foramen ovale) Q21.12 COPD, group C, by GOLD 2017 classification ([facility]) J44.9 Lung transplant status ([facility]) Z94.2 Bradycardia R00.1 Hypertension goal BP (blood pressure) < 140/90 I10 Pulmonary HTN ([facility]) I27.20 Tracheal stenosis J39.8 Type 2 diabetes mellitus with stage 3b chronic kidney disease (HCC) E11.22, N18.32 Benign hypertension with stage 3b chronic kidney disease (HCC) I12.9, N18.32 Chronic kidney disease, stage 3b (HCC) N18.32 Gastroparesis K31.84 History of DVT (deep vein thrombosis) Z86.718 Immunosuppressed status ([facility]) D84.9 Major depressive disorder with single episode, in partial remission ([facility]) F32.4 Type 2 diabetes mellitus with stage 3b chronic kidney disease, with long-term current use of insulin ([facility]) E11.22, N18.32, Z79.4 Mild dementia with mood disturbance ([facility]) F03.A3 Chronic bilateral back pain M54.9, G89.29 [...] Atorvastatin Calcium 20 MG Oral Tablet (Lipitor) Ferrous Sulfate 324 MG Oral Tablet Delayed Release Take by mouth 1 Tablet . amLODIPine Besylate 5 MG Oral Tablet (Norvasc) Take by mouth 1 Tablet in the morning. 30 Tablet 12 Litetouch Pen [place] 31G X 8 MM (Insulin Pen Needle) [...] as needed for Wheezing. 18 g 1 Accu-Chek Guide In Vitro Strip (Glucose [...] Polyethylene Glycol 3350 17 GM/SCOOP Oral Powder (MiraLax) Take 17 g by mouth as needed for Constipation. Dissolve one heaping tablespoon in 8 ounces of water or juice. 17 g 0 Azithromycin 250 MG Oral Tablet (Zithromax) Take 1 Tablet by mouth. M W F (Patient not taking: Reported on 01/11/2023) Zoster Vac Recomb Adjuvanted 50 MCG/0.5ML Intramuscular Suspension Reconstituted (Shingrix) Inject 0.5 mL into a large muscle now and repeat dose in 60 to 180 days (Patient not taking: Reported on 01/11/2023) 1 Each 1 Current Facility-Administered Medications Medication Dose Route Frequency Provider Last Rate Last Admin Tixagevimab inj 300 mg 300 mg Intramuscular Q6 Months Vic Dle Rio PA-C Cilgavimab inj 300 mg 300 mg Intramuscular Q6 Months Vic Del Rio PA-C Review of patient's allergies indicates: Allergen Reactions Pollen Other reaction(s): Sneezing (finding) Health Maintenance Due Topic Date Due *ADVANCE DIRECTIVE NOT ON FILE Never done DIABETES-EYE EXAM 03/18/2021 Depression Screening 04/09/2021 Mammogram 07/18/2021 DXA Scan 09/11/2021 Zoster Vaccines (2 of 2) 09/16/2022 ROS: CONSTITUTIONAL: No fevers, sweats, or chills EYE: No recent significant change in vision and No eye pain, redness, discharge EARS: No ear pain, No drainage, No tinnitus or vertigo, and No recent change in hearing NOSE: No history of frequent colds or sinusitis, No nasal stuffiness, No history of Hay Fever, and No significant epistaxis PULMONARY: No recent change in breathing CARDIOVASCULAR: No chest pain, No orthopnea, No paroxysmal nocturnal dyspnea, No edema, No palpitations, and No syncope GASTROINTESTINAL: No abdominal pain, +constipation past couple days, no pain, tried otc laxative, not sure what, didn't help, No significant heartburn, No significant change in appetite, No nausea, vomiting, diarrhea, , No hematemesis, No blood in stools or black tarry stools, No abdominal bloatingor early satiety, and No dysphagia ALL OTHER SYSTEMS NEGATIVE I reviewed social, PMH, PSH, and family history and updated where needed. 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 Tobacco Use Smoking status: Former Packs/day: 1.50 Years: 25.00 Pack years: 37.50 Types: Cigarettes Smokeless tobacco: Never Vaping Use Vaping Use: Never used Substance and Sexual Activity Alcohol use: No Drug use: No Sexual activity: Yes Partners: Male Other Topics Concern Not on file Social History Narrative Not on file Social Determinants of Health Financial Resource Strain: Not on file Food Insecurity: Not on file Transportation Needs: Not on file Physical Activity: Not on file Stress: Not on file Social Connections: Not on file Intimate Partner Violence: Not on file Housing Stability: Not on file Past Medical History: Diagnosis Date Actinomycotic infection of other specified sites 06/25/2010 05/26/10 -- per blood culture, f/u with Dr. Olvera Chronic bilateral back pain 07/05/2022 Chronic hypoxemic respiratory failure (HCC) 02/11/2017 COPD, severe ([facility]) 11/16/2010 Depressive disorder, not elsewhere classified Disc disorder of lumbar region has had multiple surgeries - now w/ chronic back pain from postlaminectomy syndrome DM type 2, goal A1c below 7 06/21/2012 Esophageal reflux H/O lymphoma 02/11/2017 History of pulmonary embolism 02/11/2017 History of tobacco use 25-50 pk year Lung transplant status ([facility]) 08/31/201907/2019 Memory loss 09/26/2020 Other chronic pain chronic back pain - sees [facility] Pain Management Other malignant lymphomas, unspecified site, extranodal and solid organ sites NHL- Sep 2008 at [facility] Dr Caceres Pain medication agreement 04/18/2012 PFO (patent foramen ovale) 09/01/2018 Pneumonia, organism unspecified(486) August 2008, June 2009 Past Surgical History: Procedure Laterality Date BRONCHOSCOPY 10/17/2009 few C Glabrata, nonspecific fibrosis and vacuolated histiocytic inflammation CERVICAL HEMILAMINECTOMY 2018 COLONOSCOPY, DIAGNOSTIC (RECTUM) 2006 at [facility] COLONOSCOPY, DIAGNOSTIC (RECTUM) 11/17/2018 fair prep, repeat 5 yrs / [facility] FOREARM/WRIST SUBQ TUMOR REMOVAL,UNDER 3 CM 02/03/2012 EXCISION SOFT TISSUE TUMOR FOREARM SUBCUTANEOUS performed by Nickolas Roche MD at [facility] INFORMATION Left 10/13/2009 BARD port Product code [id number], serial # [id number] MRI SAFE LUMBAR SPINE FUSION, POSTEROLATERAL multiple back surgeries - has chronic back pain LUNG TRANSPLANT, SINGLE Left 07/30/2019 [facility] NECK SPINE FUSION (CERV, BELOW C2) 1999 REMOVE ADDED NECK SPINE DISK 07/2015 REMOVE CATARACT, INSERT LENS PROSTH Right 06/10/2020 RIGHT EXTRACAPSULAR CATARACT REMOVAL WITH INTRAOCULAR LENS performed by Pietro Nuñez MD at OR [facility] REMOVE CATARACT, INSERT LENS PROSTH Left 06/24/2020 LEFT EXTRACAPSULAR CATARACT REMOVAL WITH INTRAOCULAR LENS performed by Pietro Nueñz MD at OR [facility] REMOVE GALLBLADDER 03/2020 [facility] SALIVARY SURGERY PROCEDURE NEC 1990 SHOULDER SUBQ TUMOR REMOVAL, UNDER 3 CM 02/03/2012 EXCISION SOFT TISSUE TUMOR SHOULDER SUBCUTANEOUS performed by Nickolas Roche MD at OR [facility] TOTAL ABD HYSTERECTOMY W/WO REMOVAL OF TUBE(S) was on estrogen for 30 yrs VENOUS ACCESS DEVICE FLUSH 10/13/2009 left subclavian tunnel A-Port 10/13/09 [facility] Dr. Pedersen Family History Problem Relation Age of Onset [...] Alzheimer's disease Aunt (Maternal) Dementia Aunt (Paternal) OBJECTIVE: PHYSICAL EXAM: BP 110/52 | Pulse 83 | Temp 36.7 C (98.1 F) | Ht 1.575 m (5' 2") | Wt 52.1 kg (114 lb 14.4 oz) | SpO2 96% | BMI 21.02 kg/m | BSA 1.51 m General: alert and no distress Head: Normocephalic Eye Exam: conjunctiva are pink and non-injected, sclera clear Ears: External ears normal, Canals clear, TM's Normal Nose: no mucosal erythema, no mucosal edema, no purulent discharge Oropharynx: no exudate and mucous membranes are moist bilateral lips appear chapped w/o active bleeding Heart: regular rate & rhythm, no murmur, no gallops, PMI non-displaced, S-1 normal, and S-2 normal Lungs: normal respiratory rate and rhythm, lungs clear to auscultation Extremities: no edema, no clubbing, no cyanosis Neuro Exam: alert with fluent speech, gait normal Psych: normal affect, no flight of ideas or tangential thought, good eye contact, no pressured speech I reviewed last gfr, cbc, A1c, lipid ASSESSMENT: E11.22,N18.32,Z79.4 Type 2 diabetes mellitus with stage 3b chronic kidney disease, with long-term current use of insulin ([facility]) (primary encounter diagnosis) E78.2 Elevated cholesterol with elevated triglycerides K13.0 Chapped lips F32.4 Major depressive disorder with single episode, in partial remission ([facility]) Z23 Need for prophylactic vaccination and inoculation against influenza M51.9 Disc disorder of lumbar region Z86.718 History of recurrent deep vein thrombosis (DVT) I10 Hypertension goal BP (blood pressure) < 140/90 Z51.81 Encounter for therapeutic drug level monitoring F03.A3 Mild dementia with mood disturbance, unspecified dementia type ([facility]) Z02.89 Pain medication agreement I12.9,N18.32 Benign hypertension with stage 3b chronic kidney disease ([facility]) E11.9 Type 2 diabetes mellitus with hemoglobin A1c goal of less than 7.0% ([facility]) K59.00 Constipation, unspecified constipation type B45.1 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 History of pulmonary embolism Z94.2 Lung transplant status ([facility]) PLAN: Type 2 diabetes mellitus with stage 3b chronic kidney disease, with long-term current use of insulin ([facility]) (Primary) - OPHTHALMOLOGY(DIABETES-EXTENDED)REFERRAL OP Cont insulin Follow sugars Elevated cholesterol with elevated triglycerides - LIPID PANEL WITH DIRECT LDL IF TG IS HIGH; Future; Expected date: 01/11/2023 Recheck fasting Chapped lips - TSH; Future; Expected date: 01/11/2023 Trial hydrocortisone 1% otc, will let me know how it goes Major depressive disorder with single episode, in partial remission (HCC) - Citalopram Hydrobromide 40 MG Oral Tablet (CeleXA); Take 1 Tablet by mouth in the morning. - TSH; Future; Expected date: 01/11/2023 Controlled Need for prophylactic vaccination and inoculation against influenza - INFLUENZA VACC, QUAD, HIGH DOSE (FLUZONE HD) Disc disorder of lumbar region - PAIN MANAGEMENT DRUG PANEL, URINE W/ INTERPRETATION; Future; Expected date: 01/11/2023 Cont pain meds History of recurrent deep vein thrombosis (DVT) - Apixaban 2.5 MG Oral Tablet (Eliquis); Take 1 Tablet by mouth in the morning and 1 Tablet before bedtime. Arturo, her who manages med, feels may have stopped on own, will resume, feel given multiple dvt in past, would leave on halfway Hypertension goal BP (blood pressure) < 140/90 Cont amlodipine, lasix Encounter for therapeutic drug level monitoring - PAIN MANAGEMENT DRUG PANEL, URINE W/ INTERPRETATION; Future; Expected date: 01/11/2023 Mild dementia with mood disturbance, unspecified dementia type (HCC) F/u neurology will see if can move up visit Pain medication agreement Check uds Discussed, no change to med Benign hypertension with stage 3b chronic kidney disease (HCC) Await labs, need to follow gfr Type 2 diabetes mellitus with hemoglobin A1c goal of less than 7.0% (HCC) As above Constipation, unspecified constipation type Trial miralax for a couple days,will let me know how it goes 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HCC) Cont fluconazole History of pulmonary embolism As above Lung transplant status ([facility]) [facility] Follow-up: Return in about 6 months (around 07/12/2023), or if symptoms worsen or fail to improve. |Check-out note: DAKSHA - last pulmonary visit PLEASE MOVE UP NEUROLOGY - THANK YOU, can she do televideo August Esposito MD * Slim Cantu CMA - 01/11/2023 2:18 PM EDT PRE - ADMINISTRATION DOCUMENTATION Are you experiencing any cold symptoms or fever? No Have you had Guillain-Millbrook Syndrome (an illness that causes paralysis) within the last 6 weeks? No Have you had the flu shot in the past? YES Have you ever had a reaction to the flu shot? No Slim Cantu CMA, 01/11/2023 2:18 PM Immunization Administration Documentation Time Out Procedure Performed: Yes Patient Identified (Ask Name/Date of ): Yes Does the patient have a fever greater than 101 degrees today? No Patient allergic to latex? No VFC Stock: Yes, Does this patient qualify for immunization through the VFC program because he/she (check only one): No-this child does not qualify for [facility] program; refer patient to a [facility] Immunization(s) verified: Yes, Immunization Name: Flu, VIS Sheet(s) given: Yes Verified Side and Site: Yes Verified Shot(s) with Parent(s)/Patient: Yes documented in this encounter Nursing Notes * Slim Cantu CMA - 01/11/2023 2:22 PM EDT Chief Complaint Patient presents with Follow Up 6 month follow up. Patient denied any new concerns. Medication Administration Flu and/or Pneumo Inj documented in this encounter Plan of Treatment Upcoming Encounters Date Type Specialty Care Team Description 01/25/2023 Office Visit Pharmacy [facility] [place] [address] [facility] [place] [phone] 03/11/2023 Office Visit Neurology Alva Contreras PA-C [address] [facility] [place] [address] 07/26/2023 Office Visit Internal Medicine August Esposito MD [address] [facility] [place] [id number] Scheduled Orders Name Type Priority Associated Diagnoses Orde r Schedule PAIN MANAGEMENT DRUG PANEL, URINE W/ INTERPRETATION Lab Routine Disc disorder of lumbar region Encounter for therapeutic drug level monitoring Expected: 01/11/2023, Expires: 01/12/2024 LIPID PANEL WITH DIRECT LDL IF TG IS HIGH Lab Routine Elevated cholesterol with elevated triglycerides Expected: 01/11/2023, Expires: 01/12/2024 TSH Lab Routine Major depressive disorder with single episode, in partial remission (HCC) Chapped lips Expected: 01/11/2023 (Approximate), Expires: 01/11/2024 Scheduled Procedures Name Priority Associated Diagnoses Date/Ti me COLONOSCOPY FLEXIBLE PROXIMA L DIAGNOSTIC Recall Screening for malignant neoplasm of colon Scheduled Referrals Name Type Priority Associated Diagnoses Orde r Schedule OPHTHALMOLOGY(DI ABETES-EXTENDED) REFERRAL OP Referral Within 30 days (routine) Type 2 diabetes mellitus with stage 3b chronic kidney disease, with long-term current use of insulin (HCC) Ordered: 01/11/2023 Health Maintenance Due Date Last Done Comments *ADVANCE DIRECTIVE NOT ON FILE 08/25/2016 DIABETES-EYE EXAM 03/18/2021 03/18/2020, , 03/19/2014, Additional history exists Depression Screening 04/09/2021 04/09/2020, 02/22/20 15 Mammogram 07/18/2021 07/18/2020, 0512/2018, 09/07/2018, Additional history exists DXA Scan 09/11/2021 09/11/2018, 09/11/2018 Zoster Vaccines (2 of 2) 09/16/2022 07/22/2022 Albumin/Creatinine Ratio 06/16/2023 023, 09/11/2019, 12/06/2018, Additional history exists HbA1c 06/16/2023 12/14/2022, 10/30, 06/16/2022, Additional history exists GFR 07/01/2023 12/31/2022, 11/30, 12/01/2022, Additional history exists Diabetic Foot Exam 07/06/2023 07/05/2022, 0 06/10/2021, 07/10/2020, Additional history exists CKD PHOS USE SMARTSET 65230 11/16/202310/30, 11/08/2022, 05/10/2022, Additional history exists COLONOSCOPY-EVERY 5 YRS AGES 18-100 11/18/2023 11/17/2018 O2 ASSESSMENT COMPLETED IN PAST YEAR FOR COPD 11/23/2023 11/22/2022, 05/24/2014 (Course Completed) CKD HGB USE SMARTSET 38324 01/01/202412/31, 12/31/2022, 12/14/2022, Additional history exists Lipid [...] this encounter Medical Devices Implanted Type Area Sap Fico Architect Device Identifier Shelf Expiration Date Model / Serial / Lot Lens Intraoc 21.5 - [id number] - [id number] Implanted:Qty: 1 on 06/10/2020 by Pietro Nuñez MD at OR [facility] Right: Eye [employer] 12/30/2024 [id number] / [id number] / [id number] Lens Intraoc 21.5 - [id number] - [id number] Implanted:Qty: 1 on 06/24/2020 by Pietro Nuñez MD at OR [facility] Left: Eye [employer] 01/29/2025 [id number] / [id number] / [id number] documented as of this encounter Visit Diagnoses Diagnosis Type 2 diabetes mellitus with stage 3b chronic kidney disease, with long-term current use of insulin ([facility])- Primary Elevated cholesterol with elevated triglycerides Mixed hyperlipidemia Chapped lips Diseases of lips Major depressive disorder with single episode, in partial remission ([facility]) Need for prophylactic vaccination and inoculation against influenza Disc disorder of lumbar region Other and unspecified disc disorder of lumbar region History of recurrent deep vein thrombosis (DVT) Hypertension goal BP (blood pressure) < 140/90 Unspecified essential hypertension Encounter for therapeutic drug level monitoring Encounter for therapeutic drug monitoring Mild dementia with mood disturbance, unspecified dementia type (HCC) Pain medication agreement Encounter for long-term (current) use of other medications Benign hypertension with stage 3b chronic kidney disease (HCC) Type 2 diabetes mellitus with hemoglobin A1c goal of less than 7.0% (HCC) Constipation, unspecified constipation type 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HCC) Cryptococcosis History of pulmonary embolism Personal history of pulmonary embolism Lung transplant status ([facility]) documented in this encounter Care Teams Community Service Worker Relationship Specialty Start Date End Date August Esposito MD [address] [place] [address] PCP - General Internal Medicine 12/13/11 documented as of this encounter
--- OUTSIDE RECORDS SUMMARY | 2023-05-24 02:00 | External Medical Summary | Summary of Care ---
Author Name Unknown Organization [facility] Address [address] [place] [address] Phone [phone] Care Team Providers Care Blunger Machine Operator Name Role Phone August Esposito MD Primary Care Provider + Reason for Visit * Reason Comments Outpatient Testing Encounter Details Date Type Department Care Team Description 12/31/2022 Laboratory Laboratory [facility]ery [facility]i [facility] [address] [place] [address] [facility] [address] [place] [address] Encounter for long-term (current) use of other medications; Hypomagnesemia; Status post lung transplantation (HCC) Allergies Active Allergy Reactions Severity Noted Date Comments Pollen 01/02/2020 Other reaction(s): Sneezing (finding) documented as of this encounter (statuses as of 12/31/2022) Medications Medication Sig Dispensed Refills Start Date [...] 30 Tablet 12 12/02/2021 Active Litetouch Pen [place] 31G X 8 MM (Insulin Pen Needle)Indications:T [...] COPD, group C, by GOLD 2017 classification ([facility]) Inhale 1 Puff by mouth in the [...] disease, with long-term current use of insulin ([facility]) Use to check sugars 4 times a [...] 0 Active Apixaban 2.5 MG Oral Tablet (Eliquis)Indications :Acute deep vein thrombosis (DVT) of right upper extremity, unspecified vein ([facility]) Take 1 Tablet by mouth in the morning and 1 Tablet before bedtime. 60 Tablet 1 11/22/2022 Active Pantoprazole Sodium 40 MG Oral Tablet Delayed Release (Protonix)Indication s:Gastroesophageal reflux disease without esophagitis Take 1 Tablet by mouth in the morning. 90 Tablet 3 11/22/2022 Active predniSONE 5 MG Oral Tablet (Deltasone)Indicatio ns:Lung transplant status ([facility]) Take 1 Tablet by mouth in the morning. TAKING 5mg DAILY. 90 Tablet 3 11/22/2022 Active HYDROmorphone HCl 2 MG Oral Tablet (Dilaudid)Indication s:Disc disorder of lumbar region Take 1 Tablet by mouth every 12 hours as needed for Pain, Severe. 60 Tablet 0 12/09/2022 Active oxyCODONE HCl ER 15 MG Oral Tablet ER 12 Hour Abuse-Deterrent (oxyCONTIN)Indicatio ns:Disc disorder of lumbar region Take 1 Tablet by mouth in the morning and 1 Tablet before bedtime. 60 Tablet 0 12/09/2022 Active Hospital, Clinic, or Other Facility Administered Medication Ordered Dose Route Frequency Start Date End Date Status Tixagevimab inj 300 mgIndications:Lung transplant status (HCC) 300 mg IM [id number] 01/21/2022 Active Cilgavimab inj 300 mgIndications:Lung transplant status (HCC) 300 mg IM [id number] 01/21/2022 Active documented as of this encounter (statuses as of 12/31/2022) Active Problems Problem Noted Date History of [...] Pain medication agreement 04/18/2012 Overview: Signed 04/18/12 Qcwmu-1-hgdonjhiwaw deficiency 1 Overview: Prolastin 60mg/kg started 06/07/11, [...] as of this encounter (statuses as of 12/31/2022) Resolved Problems Problem Noted Date Resolved Date [...] 24hrs/day. 07/26/09: Failed 2 step at [facility], 2 LPM 24 hr/day 07/15/09: Nocturnal [...] 12/16/2009 Overview: chronic back pain - sees [facility] Pain Management Other malignant lymphomas, u nspecified site, extranodal and solid organ sites 11/03/2010 Overview: NHL- Sep [address] [facility] Major depressive disorder 2022 Overview: ICD-10 update of inactive term Other malignant lymphomas, u nspecified site, extranodal and solid organ sites 10/05/2017 Overview: NHL- Sep [address] [facility] Cace[place] documented as of this encounter (statuses as of 12/31/2022) Immunizations Name Administration Dates Next Due COVID-19 mRNA, LNP-s, No Pre serve, 2-Dose Series (Moderna) 01/24/2021,07/03/2020,05/31/2020 Covid-19, Mrna, Lnp-s, Pf, B ivalent, 30 Mcg, IM, 12 yrs and above ([facility]) 04/21/2022 H1N1 2009 Influenza, IM 06/11/2009 Hepatitis [...] Office Visit Internal Medicine August Esposito MD [address] [place] [address], [place] [address] 01/25/2023 Office Visit Pharmacy Deann Benson [address] [place] [address] 12/23/2023 Office Visit Neurology Jayashree Sparks, DO [address] [place] [address] Pending Results Name Type Priority Associated Diagnoses Date /Time BASIC METABOLIC PANEL Lab Routine Encounter for long-term (current) use of other medications Hypomagnesemia Status post lung transplantation (HCC) 12/31/2022 12:44 PM EDT MAGNESIUM Lab Routine Encounter for long-term (current) use of other medications Hypomagnesemia Status post lung transplantation (HCC) 12/31/2022 12:44 PM EDT TACROLIMUS LEVEL Lab Routine Encounter for long-term (current) use of other medications Hypomagnesemia Status post lung transplantation (HCC) 12/31/2022 12:44 PM EDT EVEROLIMUS, LC/MS/MS, BLOOD Lab Routine Encounter for long-term (current) use of other medications Hypomagnesemia Status post lung transplantation (HCC) 12/31/2022 12:44 PM EDT CYTOMEGALOVIRUS DNA, QUANTITATIVE REAL-TIME PCR Lab Routine Encounter for long-term (current) use of other medications Hypomagnesemia Status post lung transplantation (HCC) 12/31/2022 12:44 PM EDT Scheduled Procedures Name Priority Associated Diagnoses Date/Ti me COLONOSCOPY FLEXIBLE PROXIMA L DIAGNOSTIC Recall Screening for malignant neoplasm of colon Health Maintenance Due Date Last Done Comments *ADVANCE DIRECTIVE NOT ON FILE 08/25/2016 DIABETES-EYE EXAM 03/18/2021 03/18/2020, , 03/19/2014, Additional history exists Depression Screening, Annual for Pts 12 and Over 04/09/2021 04/09/2020, 02/21/2015 Mammogram 07/18/2021 07/18/2020, 0512/2018, 09/07/2018, Additional history exists DXA Scan 09/11/2021 09/11/2018, 09/11/2018 Zoster Vaccines (2 of 2) 09/16/2022 07/22/2022 Influenza Vaccine (FLU shot) (#1) 2022 01/20/2022, 02/02/2021, 01/02/2020, Additional history exists Albumin/Creatinine Ratio 06/16/2023 023, 09/11/2019, 12/06/2018, Additional history exists GFR 06/16/2023 12/14/2022, 08/06/2022, 11/17/2022, Additional history exists HbA1c 06/16/2023 12/14/2022, 10/30, 06/16/2022, Additional history exists DIABETES-FOOT EXAM 07/06/2023 07/05/2022, 0 06/10/2021, 07/10/2020, Additional history exists CKD PHOS USE SMARTSET 00254 11/16/202310/30, 11/08/2022, 05/10/2022, Additional history exists COLONOSCOPY-EVERY 5 YRS AGES 18-100 11/18/2023 11/17/2018 O2 ASSESSMENT COMPLETED IN PAST YEAR FOR COPD 11/23/2023 11/22/2022, 05/24/2014 (Course Completed) CKD HGB USE SMARTSET 02024 12/15/202312/31, 12/31/2022, 12/14/2022, Additional history exists Lipid Panel [...] this encounter Medical Devices Implanted Type Area Associate Curator Device Identifier Shelf Expiration Date Model / Serial / Lot Lens Intraoc 21.5 - [id number] - [id number] Implanted:Qty: 1 on 06/10/2020 by Pietro Nuñez MD at OR [facility] Right: Eye [employer] 12/30/2024 [id number] / [id number] / [id number] Lens Intraoc 21.5 - [id number] - [id number] Implanted:Qty: 1 on 06/24/2020 by Pietro Nuñez MD at OR [facility] Left: Eye [employer]CH [employer] LOMB 01/29/2025 [id number] / [id number] / [id number] documented as of this encounter Procedures Procedure Name Priority Date/Time Associated Diagnosis Comments DIFFERENTIAL, AUTOMATED Routine 12/31/2022 12:44 PM EDT Encounter for long-term (current) use of other medications Hypomagnesemia Status post lung transplantation (HCC) CBC WITH WBC DIFFERENTIAL Routine 12/31/2022 12:44 PM EDT Encounter for long-term (current) use of other medications Hypomagnesemia Status post lung transplantation (HCC) CBC Routine 12/31/2022 12:44 PM EDT Encounter for long-term (current) use of other medications Hypomagnesemia Status post lung transplantation (HCC) documented in this encounter Results * (ABNORMAL) DIFFERENTIAL, AUTOMATED (12/31/2022 12:44 PM EDT) WBC 6.48 4.00 - 10.80 K/uL 12/31/2022 12:52 PM EDT [facility] 56-02 Neutrophils % 78.3(H) 40.0 - 75.0 % 12/31/2022 12:52 PM EDT [facility]ATORY [facility] 56-02 Lymphocytes % 10.6(L) 18.0 - 42.0 % 12/31/2022 12:52 PM EDT [facility] [place] 56-02 Monocytes % 9.9 1.0 - 11.0 % 12/31/2022 12:52 PM EDT [facility] 56-02 Eosinophils % 0.9 0.0 - 6.0 % 12/31/2022 12:52 PM EDT [facility] [place] 56-02 Basophils % 0.3 0.0 - 2.0 % 12/31/2022 12:52 PM EDT [facility] 56 Absolute Neutrophils 5.07 1.80 - 7.70 K/uL 12/31/2022 12:52 PM EDT [facility] 56 Absolute Lymphocytes 0.69(L) 1.00 - 4.80 K/ul 12/31/2022 12:52 PM EDT [facility] 56 Absolute Monocytes 0.64 0.00 - 1.10 K/uL 12/31/2022 12:52 PM EDT [facility] 56 Absolute Eosinophils 0.06 0.00 - 0.70 K/uL 12/31/2022 12:52 PM EDT [facility] 56 Absolute Basophils 0.02 0.00 - 0.20 K/uL 12/31/2022 12:52 PM EDT [facility] Blood Venous blood specimen / Unknown Venipuncture / Unknown 12/31/2022 12:44 PM EDT 12/31/2022 12:44 PM EDT Katya Brand MD LAB BLOOD ORD ERABLES [facility] [address] [place] [address] * (ABNORMAL) CBC (12/31/2022 12:44 PM EDT) WBC 6.48 4.00 - 10.80 K/uL 12/31/2022 12:52 PM EDT [facility] RBC 3.75 3.85 - 5.15 M/uL 12/31/2022 12:52 PM EDT [facility] 56 HGB 10.7(L) 12.0 - 15.3 g/dL 12/31/2022 12:52 PM EDT [facility] 56 HCT 33.8(L) 36.0 - 45.2 % 12/31/2022 12:52 PM EDT [facility] 56 MCV 90.1 81.5 - 97.5 fL 12/31/2022 12:52 PM EDT [facility] 56 MCH 28.5 27.0 - 34.0 pg 12/31/2022 12:52 PM EDT [facility] 56 MCHC 31.7 32.0 - 36.0 g/dL 12/31/2022 12:52 PM EDT [facility] 56 RDW 16.0 11.5 - 15.5 % 12/31/2022 12:52 PM EDT [facility] 56 PLT 179 140 - 400 K/uL 12/31/2022 12:52 PM EDT [facility] 56 MPV 9.0 6.6 - 11.1 fL 12/31/2022 12:52 PM EDT [facility] 56 Blood Venous blood specimen / Unknown Venipuncture / Unknown 12/31/2022 12:44 PM EDT 12/31/2022 12:44 PM EDT Katya Brand MD LAB BLOOD ORD ERABLES [facility] [address] [facility] [address] documented in this encounter Visit Diagnoses Diagnosis Encounter for long-term (current) use of other medications Hypomagnesemia 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
--- OUTSIDE RECORDS SUMMARY | 2023-05-24 02:00 | External Medical Summary ---
Author Name Unknown Address Unknown Organization [id number]:[facility] [place] [address] [place] [address] Laboratory Report Ordering Provider Test Date Status VILLA CASPER 01/18/2023 14:06:38 Final Observation Date Value Abnormality Reference (Units ) Status TSH 01/18/2023 14:06:38 0.88 0.27-4.20 (uIU/mL) Final Performing Location [facility] - [address] [place] [address]
--- OUTSIDE RECORDS SUMMARY | 2023-05-24 02:00 | External Medical Summary ---
Author Name Unknown Address Unknown Organization [id number]:[facility]ATORY [facility] [place] - [address] [place] [address] Laboratory Report Ordering Provider Test Date Status NATALIE JOHN 12/31/2022 12:44:14 Final Test performed by [facility] on [employer]. Therapeutic ranges vary with type of transplant, time post-transplant, clinical protocols, and testing methodology. Results should be interpreted with clinical presentation and any signs rejection/toxicity. Observation Date Value Abnormality Reference (Units ) Status Tacrolimus (FK506) 12/31/2022 12:44:14 3.4 Below low normal 4.0-12.0 (ng/mL) Final Performing Location LABORATORY [facility] - [address] [place] [address]
--- OUTSIDE RECORDS SUMMARY | 2023-05-24 02:01 | External Medical Summary | Summary of Care ---
Author Name Unknown Organization [facility] Address [address] [place] [address] Phone [phone] Care Team Providers Care Wait Staff Name Role Phone August Esposito MD Primary Care Provider + Reason for Visit * Reason Onset Date Comments Test Results 12/15/2022 Encounter Details Date Type Department Care Team Description 12/15/2022 Telephone General Internal Medicine [facility] [address] [facility] [place] [address] Vic Del Rio PA-C [address] [facility] [place] [address] Test Results Allergies Active Allergy Reactions Severity Noted Date Comments Pollen 01/02/2020 Other reaction(s): Sneezing (finding) documented as of this encounter (statuses as of 12/15/2022) Medications Medication Sig Dispensed Refills Start Date [...] 30 Tablet 12 12/02/2021 Active Litetouch Pen [place] 31G X 8 MM (Insulin Pen Needle)Indications:T [...] COPD, group C, by GOLD 2017 classification ([facility]) Inhale 1 Puff by mouth [...] disease, with long-term current use of insulin ([facility]) Use to check sugars 4 [...] (DVT) of right upper extremity, unspecified vein ([facility]) Take 1 Tablet by mouth in the morning and 1 Tablet before bedtime. 60 Tablet 1 11/22/2022 Active Pantoprazole Sodium 40 MG Oral Tablet Delayed Release (Protonix)Indication s:Gastroesophageal reflux disease without esophagitis Take 1 Tablet by mouth in the morning. 90 Tablet 3 11/22/2022 Active predniSONE 5 MG Oral Tablet (Deltasone)Indicatio ns:Lung transplant status ([facility]) Take 1 Tablet by mouth [...] mgIndications:Lung transplant status (HCC) 300 mg IM [id number] 01/21/2022 Active Cilgavimab inj 300 mgIndications:Lung transplant status (HCC) 300 mg IM [id number] 01/21/2022 Active documented as of this encounter (statuses as of 12/15/2022) Active Problems Problem Noted Date History of [...] Pain medication agreement 04/18/2012 Overview: Signed 04/18/12 Qvkax-0-bjdqztnscri deficiency 1 Overview: Prolastin 60mg/kg [facility] 06/07/11[facility] Zam[facility]a given fall 2010 caused arthralgias. 08/28/10 - <30 10/12/08 - MM allele 08/22/08 - 232 Proteinuria 10/08/2009 History of tobacco use 09/10/2009 Chronic rhinitis 09/10/2009 Esophageal reflux Disc disorder of lumbar region Overview: has had multiple surgeries - now w/ chronic back pain from postlaminectomy syndrome documented as of this encounter (statuses as of 12/15/2022) Resolved Problems Problem Noted Date Resolved Date [...] LPM 24hrs/day. 07/26/09: Failed 2 step at [facility], 2 LPM 24 hr/day 07/15/09: [...] 12/16/2009 Overview: chronic back pain - sees [facility] Pain Management Other malignant lymphomas, u nspecified site, extranodal and solid organ sites 11/03/2010 Overview: NHL- Sep 2008 at [facility] [place] Dr Caceres Major depressive disorder 2022 Overview: ICD-10 update of inactive term Other malignant lymphomas, u nspecified site, extranodal and solid organ sites 10/05/2017 Overview: NHL- Sep 2008 at [facility] [place] Dr Caceres documented as of this encounter (statuses as of 12/15/2022) Immunizations Name Administration Dates Next Due COVID-19 mRNA, LNP-s, No Pre serve, 2-Dose Series (Moderna) 01/24/2021,07/03/2020,05/31/2020 Covid-19, Mrna, Lnp-s, Pf, B ivalent, 30 Mcg, IM, 12 yrs and above ([employer]izer) 04/21/2022 H1N1 2009 Influenza, IM 06/11/2009 Hepatitis B Vaccine 09/01/2018 Hepatitis B, 20+ yrs 12/06/2018,09/02/19 19,04/21/2011,11/18,09/30/2010 Pneumococcal Conjugate Vacc, 13 Valent (Prevnar) 02/13/2015,11/28/2014 Pneumococcal Polysaccharide PPV23 (Pneumovax) 07/05/2022,08/20/2016,04/01/2010,05/16 Seasonal Influenza, Quadriva lent Hd (Fluzone Hd) 01/20/2022,02/02/2021 Seasonal Influenza, Quadriva lent, No Preserve, 6 Mons & Above, IM 03/15/2019,02/13/2018,02/11/2017 Seasonal Influenza, Quadriva lent, No Preserve, Adjuvanted, 65+ Yrs, IM 01/02/2020 Seasonal Influenza, Quadriva lent, No Preserve, IM [...] encounter Miscellaneous Notes * Telephone Encounter - Vic Del Rio PA-C - 12/15/2022 10:20 AM EDT Noted. * Telephone Encounter - Martha Gongora LPN - 12/15/2022 7:42 AM EDT Provider to address: N/A Reason for Call: Test Results Contact: Telephone Call Contact Type: Test Results Outcome: Relayed message to patient's , as she was still in bed. He said he appreciated the call and recommendations but he will be calling [facility] in [place] to discuss with her kidney doctoralso. Total Time including non face to face (minutes): 10 * Telephone Encounter - Martha Gongora LPN - 12/15/2022 7:28 AM EDT ----- Message from Vic Del Rio PA-C sent at 12/15/2022 7:24 AM EDT ----- Patient with COLT and hyperkalemia. Please contact patient and have her proceed to ER for repeat testing and treatment. documented in this encounter Plan of Treatment Upcoming Encounters Date Type Specialty Care Team Description 01/11/2023 Office Visit Internal Medicine August Esposito MD [address] [place] [address] 01/25/2023 [facility] [address] 12/23/2023 Office Visit Neurology Jayashree Sparks, DO [address] [place] [address] Scheduled Procedures Name Priority Associated Diagnoses Date/Ti me COLONOSCOPY FLEXIBLE PROXIMA L DIAGNOSTIC Recall Screening for malignant neoplasm of colon Health Maintenance Due Date Last Done Comments *ADVANCE DIRECTIVE NOT ON FILE 08/25/2016 DIABETES-EYE EXAM 03/18/2021 03/18/2020, , 03/19/2014, Additional history exists Depression Screening, Annual for Pts 12 and Over 04/09/2021 04/09/2020, 02/21/2015 Mammogram 07/18/2021 07/18/2020, 05/12/2018, 09/07/2018, Additional history exists DXA Scan 09/11/2021 09/11/2018, 09/11/2018 Zoster Vaccines (2 of 2) 09/16/2022 07/22/2022 Influenza Vaccine (FLU shot) (#1) 2022 01/20/2022, 02/02/2021, 01/02/2020, Additional history exists Albumin/Creatinine Ratio 06/16/2023 023, 09/11/2019, 12/06/2018, Additional history exists GFR 06/16/2023 12/14/2022, 0806/2022, 11/17/2022, Additional history exists HbA1c 06/16/2023 12/14/2022, 10/30, 06/16/2022, Additional history exists DIABETES-FOOT EXAM 07/06/2023 07/05/2022, 0 06/10/2021, 07/10/2020, Additional history exists CKD PHOS USE SMARTSET 33699 11/16/202310/30, 11/08/2022, 05/10/2022, Additional history exists COLONOSCOPY-EVERY 5 YRS AGES 18-100 11/18/2023 11/17/2018 O2 ASSESSMENT COMPLETED IN PAST YEAR FOR COPD 11/23/2023 11/22/2022, 05/24/2014 (Course Completed) CKD HGB USE SMARTSET 68242 12/15/202312/14, 12/14/2022, 12/01/2022, Additional history exists Lipid Panel 12/15/2027 12/14/2022, [...] this encounter Medical Devices Implanted Type Area Rivet Heater Device Identifier Shelf Expiration Date Model / Serial / Lot Lens Intraoc 21.5 - [id number] - [id number] Implanted:Qty: 1 on 06/10/2020 by Pietro Nuñez MD at OR [facility] Right: Eye [employer]OM[employer] 12/30/2024 [id number] / [id number] / [id number] Lens Intraoc 21.5 - [id number] - [id number] Implanted:Qty: 1 on 06/24/2020 by Pietro Nuñez MD at OR [facility] Left: Eye BAUSCH [employer] LOMB 01/29/2025 [id number] / [id number] / [id number] documented as of this encounter Care Teams Wait Staff Relationship Specialty Start Date End Date August Esposito MD [address] [place] [address] PCP - General Internal Medicine 12/13/11 documented as of this encounter
--- OUTSIDE RECORDS SUMMARY | 2023-05-24 02:01 | External Medical Summary ---
Author Name Unknown Address Unknown Organization K09:[facility] [place] [address] Laboratory Report Ordering Provider Test Date Status NATALIE JOHN 12/31/2022 12:44:14 Final Observation Date Value Abnormality Reference (Units ) Status BUN 12/31/2022 12:44:14 33 Above high normal 6-20 (mg/dL) Final Creatinine 12/31/2022 12:44:14 2.4 Above high normal 0.5-1.0 (mg/dL) Final Glomerular filtration rate/1.73 sq M.predicted [Volume Rate/Area] in Serum, Plasma or Blood by Creatinine-based formula (CKD-EPI) 12/31/2022 12:44:14 22 Below low normal >=60 (mL/min) Final eGFR is calculated based on the CKD-EPI 2020 equation SODIUM 12/31/2022 12:44:14 139 135-146 (m mol/L) Final Potassium 12/31/2022 12:44:14 4.5 3.5-5.1 (m mol/L) Final Cl 12/31/2022 12:44:14 103 98-107 (mm ol/L) Final CO2 12/31/2022 12:44:14 24 22-32 (mmo l/L) Final Anion gap 12/31/2022 12:44:14 12 7-15 (mmol /L) Final Glucose 12/31/2022 12:44:14 186 Above high normal 70 -120 (mg/dL) Final Calcium 12/31/2022 12:44:14 9.4 8.4-10.2 ( mg/dL) Final Performing Location [facility] [place] [address]
--- OUTSIDE RECORDS SUMMARY | 2023-05-24 02:01 | External Medical Summary ---
Author Name Unknown Address Unknown Organization K09:[facility] [address] Laboratory Report Ordering Provider Test Date Status DORA,CALVINDELORES 12/14/2022 12:18:07 Final Observation Date Value Abnormality Reference (Units ) Status Magnesium 12/14/2022 12:18:07 2.0 1.5-2.6 (m g/dL) Final Performing Location [facility] [address]
--- OUTSIDE RECORDS SUMMARY | 2023-05-24 02:01 | External Medical Summary ---
Author Name Unknown Address Unknown Organization K09:[facility] [place] [address] Laboratory Report Ordering Provider Test Date Status NATALIE JOHN 12/31/2022 12:44:14 Final Observation Date Value Abnormality Reference (Units ) Status WBC, Total 12/31/2022 12:44:14 6.48 4.00-10.8 0 (K/uL) Final RBC 12/31/2022 12:44:14 3.75 3.85-5.15 (M/uL) Final Hemoglobin 12/31/2022 12:44:14 10.7 Below low normal 12 .0-15.3 (g/dL) Final HCT 12/31/2022 12:44:14 33.8 Below low normal 36. 0-45.2 (%) Final MCV 12/31/2022 12:44:14 90.1 81.5-97.5 (fL) Final MCH 12/31/2022 12:44:14 28.5 27.0-34.0 (pg) Final MCHC 12/31/2022 12:44:14 31.7 32.0-36.0 (g/dL) Final RDW 12/31/2022 12:44:14 16.0 11.5-15.5 (%) Final Platelets 12/31/2022 12:44:14 179 140-400 (K /uL) Final MPV 12/31/2022 12:44:14 9.0 6.6-11.1 ( fL) Final Performing Location [facility] [place] [address]
--- OUTSIDE RECORDS SUMMARY | 2023-05-24 02:01 | External Medical Summary ---
Author Name Unknown Address Unknown Organization [id number]:[facility] [place] [address] Laboratory Report Ordering Provider Test Date Status NATALIE JOHN 12/14/2022 12:18:07 Final Observation Date Value Abnormality Reference (Units ) Status BUN 12/14/2022 12:18:07 27 Above high normal 6-20 (mg/dL) Final Creatinine 12/14/2022 12:18:07 2.6 Above high normal 0.5-1.0 (mg/dL) Final Glomerular filtration rate/1.73 sq M.predicted [Volume Rate/Area] in Serum, Plasma or Blood by Creatinine-based formula (CKD-EPI) 12/14/2022 12:18:07 19 Below low normal >=60 (mL/min) Final eGFR is calculated based on the CKD-EPI 2020 equation SODIUM 12/14/2022 12:18:07 134 Below low normal 135 -146 (mmol/L) Final Potassium 12/14/2022 12:18:07 6.1 Above high normal 3. 5-5.1 (mmol/L) Final Cl 12/14/2022 12:18:07 101 98-107 (mm ol/L) Final CO2 12/14/2022 12:18:07 20 Below low normal 22- 32 (mmol/L) Final Anion gap 12/14/2022 12:18:07 13 7-15 (mmol /L) Final Glucose 12/14/2022 12:18:07 164 Above high normal 70 -120 (mg/dL) Final Calcium 12/14/2022 12:18:07 9.6 8.4-10.2 ( mg/dL) Final Performing Location [facility] [address]
--- OUTSIDE RECORDS SUMMARY | 2023-05-24 02:01 | External Medical Summary ---
Author Name Unknown Address Unknown Organization K09:[facility] [place] [address] Laboratory Report Ordering Provider Test Date Status DORA,CALVINDELORES 12/31/2022 12:44:14 Final Observation Date Value Abnormality Reference (Units ) Status Magnesium 12/31/2022 12:44:14 2.3 1.5-2.6 (m g/dL) Final Performing Location [place] [place] [address]
--- OUTSIDE RECORDS SUMMARY | 2023-05-24 02:01 | External Medical Summary ---
Author Name Unknown Address Unknown Organization K09:[facility] [place] [address] Laboratory Report Ordering Provider Test Date Status NATALIE JOHN 12/14/2022 12:17:36 Final Observation Date Value Abnormality Reference (Units ) Status WBC, Total 12/14/2022 12:17:36 8.19 4.00-10.8 0 (K/uL) Final RBC 12/14/2022 12:17:36 3.58 3.85-5.15 (M/uL) Final Hemoglobin 12/14/2022 12:17:36 10.5 Below low normal 12 .0-15.3 (g/dL) Final HCT 12/14/2022 12:17:36 31.5 Below low normal 36. 0-45.2 (%) Final MCV 12/14/2022 12:17:36 88.0 81.5-97.5 (fL) Final MCH 12/14/2022 12:17:36 29.3 27.0-34.0 (pg) Final MCHC 12/14/2022 12:17:36 33.3 32.0-36.0 (g/dL) Final RDW 12/14/2022 12:17:36 15.9 11.5-15.5 (%) Final Platelets 12/14/2022 12:17:36 193 140-400 (K /uL) Final MPV 12/14/2022 12:17:36 8.7 6.6-11.1 ( fL) Final Performing Location [facility] [place] [address]
--- OUTSIDE RECORDS SUMMARY | 2023-05-24 02:01 | External Medical Summary ---
Author Name Unknown Address Unknown Organization K09:[facility] [place] [address] Laboratory Report Ordering Provider Test Date Status NATALIE JOHN 12/14/2022 12:17:36 Final Observation Date Value Abnormality Reference (Units ) Status SYNC LEUKOCYTES IN BLOOD BY AUTOMATED COUNT 12/14/2022 12:17:36 8.19 4.00-10.80 (K/uL) Final Segs 12/14/2022 12:17:36 84.6 Above high normal 40.0-75.0 (%) Final Lymphs % 12/14/2022 12:17:36 7.6 Below low normal 18.0-42.0 (%) Final Monos 12/14/2022 12:17:36 7.0 1.0-11.0 (%) Final Eosinophils 12/14/2022 12:17:36 0.4 0.0-6.0 (%) Final Basos 12/14/2022 12:17:36 0.4 0.0-2.0 (%) Final Absolute Segs 12/14/2022 12:17:36 6.94 1.80-7.70 (K/uL) Final Lymphs, absolute 12/14/2022 12:17:36 0.62 Below low normal 1.00-4.80 (K/ul) Final Monos, Abs 12/14/2022 12:17:36 0.57 0.00-1.10 (K/uL) Final Eos, Abs 12/14/2022 12:17:36 0.03 0.00-0.70 (K/uL) Final Basos, Abs 12/14/2022 12:17:36 0.03 0.00-0.20 (K/uL) Final Performing Location [facility] [place] [address]
--- OUTSIDE RECORDS SUMMARY | 2023-05-24 02:01 | External Medical Summary ---
Author Name Unknown Address Unknown Organization K01:[facility] - [address] [place] [address] Laboratory Report Ordering Provider Test Date Status BHARATH GAMBINO 12/14/2022 12:18:04 Final Observation Date Value Abnormality Reference (Units ) Status LDL, (direct) 12/14/2022 12:18:04 85 <=129 (mg/dL) Final LDL Cholesterol Reference Ra nges (mg/dL):
<70 Target level for high risk ASCVD patient
<100 Optimal for general population
100-129 Near optimal for general population
130-159 Borderline high
160-189 High
>=190 Very high Performing Location [facility] - [address] [place] [address]
--- OUTSIDE RECORDS SUMMARY | 2023-05-24 02:01 | External Medical Summary ---
Author Name Unknown Address Unknown Organization K01:LABORATORY [facility] [place] - [address] [address] Laboratory Report Ordering Provider Test Date Status BHARATH GAMBINO 12/14/2022 12:18:04 Final Observation Date Value Abnormality Reference (Units ) Status Triglyceride 12/14/2022 12:18:04 536 Above high normal <=174 (mg/dL) Final Triglyceride Reference Range s (mg/dL):
<150 Acceptable
150-174 Borderline high
175-499 High
>=500 Very high Cholesterol 12/14/2022 12:18:04 211 Above high normal <200 (mg/dL) Final Total Cholesterol Reference Ranges (mg/dL):
<200 Desirable
200-239 Borderline high
>=240 High HDL 12/14/2022 12:18:04 40 Below low normal >49 (mg/dL) Final HDL Cholesterol Reference Ra nges (mg/dL):
>=60 High (Desirable)
<50 Low (Undesirable) For Females
<40 Low (Undesirable) For Males NON-HDL CHOLESTEROL 12/14/2022 12:18:04 171 Above high normal <=159 (mg/dL) Final Non-HDL Cholesterol Referenc e Range (mg/dL):
<100 Target level for high risk ASCVD patient
<130 Optimal for general population
130-159 Near optimal for general population
160-189 Borderline High
190-219 High
>=220 Very High Performing Location [facility] - [address] [place] [address]
--- OUTSIDE RECORDS SUMMARY | 2023-05-24 02:01 | External Medical Summary ---
Author Name Unknown Address Unknown Organization K01:[facility] [address] [facility] [address] Laboratory Report Ordering Provider Test Date Status BHARATH GAMBINO 12/14/2022 12:17:41 Final Observation Date Value Abnormality Reference (Units ) Status HbA1C 12/14/2022 12:17:41 6.3 Above high normal 4. 0-5.6 (%) Final The use of HbA1c to monitor glycemic status is based on normal hemoglobin and HbA composition. This test should not be used in patients with abnormal hemoglobin that affects the half life of the red blood cell or the in vivo glycation rates. Glucose, estimated average 12/14/2022 12:17:41 134 Above high normal <126 (mg/dL) Capo herrera Performing Location [facility] - [address] [facility] [address]
--- OUTSIDE RECORDS SUMMARY | 2023-05-24 02:01 | External Medical Summary ---
Author Name Unknown Address Unknown Organization : Laboratory Report Ordering Provider Test Date Status NATALIE JOHN 12/31/2022 12:44:14 Final Observation Date Value Abnormality Reference (Units ) Status Source 12/31/2022 12:44:14 Whole Blood Final Cytomegalovirus DNA [Units/volume] (viral load) in Specimen by with probe detection 12/31/2022 12:44:14 Not Detected (IU/mL) Final Cytomegalovirus DNA [Log #/volume] (viral load) in Specimen by with probe detection 12/31/2022 12:44:14 Not Detected (log IU/mL) Final REFERENCE RANGE: NOT DETECTE D
This test was developed and its analytical performance
characteristics have been determined by [employer] [place], [place]. It has
not been cleared or approved by the U.S. Food and Drug
Administration. This assay has been validated pursuant
to the CLIA regulations and is used for clinical
purposes.
For additional information, please refer to
http://education.[employer].com/faq/CMVandEBVPCR
(This link is being provided for informational/
educational purposes only.)

Test Performed at:
[facility]
[id number] [address]
[place], [place]
Emory Amador M.D., Ph.D.,Director of Laboratories Performing Location
--- OUTSIDE RECORDS SUMMARY | 2023-05-24 02:01 | External Medical Summary ---
Author Name Unknown Address Unknown Organization : Laboratory Report Ordering Provider Test Date Status NATALIE JOHN 12/14/2022 12:17:30 Final Observation Date Value Abnormality Reference (Units ) Status Source 12/14/2022 12:17:30 Whole Blood Final Cytomegalovirus DNA [Units/volume] (viral load) in Specimen by with probe detection 12/14/2022 12:17:30 Not Detected (IU/mL) Final Cytomegalovirus DNA [Log #/volume] (viral load) in Specimen by with probe detection 12/14/2022 12:17:30 Not Detected (log IU/mL) Final REFERENCE RANGE: NOT DETECTE D
This test was developed and its analytical performance
characteristics have been determined by [employer] [place], [place]. It has
not been cleared or approved by the U.S. Food and Drug
Administration. This assay has been validated pursuant
to the CLIA regulations and is used for clinical
purposes.
For additional information, please refer to
http://education.[employer].com/faq/CMVandEBVPCR
(This link is being provided for informational/
educational purposes only.)

Test Performed at:
[facility]
[address] [facility]
[place], [place]
Emory Amador M.D., Ph.D.,Director of Laboratories Performing Location
--- OUTSIDE RECORDS SUMMARY | 2023-05-24 02:01 | External Medical Summary | Summary of Care ---
Author Name Unknown Organization [facility] Address [address] [place] [address] Phone [phone] Care Team Providers Care Headliner Installer Name Role Phone August Esposito MD Primary Care Provider + Reason for Visit * Reason Comments Outpatient Testing Encounter Details Date Type Department Care Team Description 12/14/2022 Laboratory [facility] [place] [address] [place] [address] [place], Lab Scen[facility] [address] [place] [address] Type 2 diabetes mellitus with stage 3b chronic kidney disease, with long-term current use of insulin (HCC); Encounter for long-term (current) use of medications; Encounter for vitamin deficiency screening; Type 2 diabetes mellitus with hemoglobin A1c goal of less than 7.0% ([facility]); Encounter for long-term (current) use of other medications; Hypomagnesemia; Status post lung transplantation (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) Allergies Active Allergy Reactions Severity Noted Date Comments Pollen 01/02/2020 Other reaction(s): Sneezing (finding) documented as of this encounter (statuses as of 12/14/2022) Medications Medication Sig Dispensed Refills Start Date [...] 30 Tablet 12 12/02/2021 Active Litetouch Pen [place] 31G X 8 MM (Insulin Pen Needle)Indications:T [...] [facility]IN [facility]) Inject 15 Units under the skin at [...] (DVT) of right upper extremity, unspecified vein ([facility] [...] mgIndications:Lung transplant status (HCC) 300 mg IM [id number] 01/21/2022 Active Cilgavimab inj 300 mgIndications:Lung transplant status (HCC) 300 mg IM [id number] 01/21/2022 Active documented as of this encounter (statuses as of 12/14/2022) Active Problems Problem Noted Date History of [...] Pain medication agreement 04/18/2012 Overview: Signed 04/18/12 Kkrly-3-lnwzissrwof deficiency 1 Overview: Prolastin 60mg/kg started 06/07/11, weekly via [facility]. Zamaira given fall 2010 caused arthralgias. 08/28/10 - <30 10/12/08 - MM allele 08/22/08 - 232 Proteinuria 10/08/2009 History of tobacco use 09/10/2009 Chronic rhinitis 09/10/2009 Esophageal reflux Disc disorder of lumbar region Overview: has had multiple surgeries - now w/ chronic back pain from postlaminectomy syndrome documented as of this encounter (statuses as of 12/14/2022) Resolved Problems Problem Noted Date Resolved Date [...] HX- NONHODGKIN'S LYMPHOMA 07/21/20092009 Overview: Sep [place] [facility] 3 doses of chemo, remission COPD exacerbation 01/09/2009 12/16/2009 COPD, severity to be determined 01/09/2009 04/13/2011 Overview: 06/05/10: 4 LPM 24hrs/day. 07/26/09: Failed 2 step at [facility], 2 LPM 24 hr/day 07/15/09: [...] 12/16/2009 Overview: chronic back pain - sees [facility] Pain Management Other malignant lymphomas, u nspecified site, extranodal and solid organ sites 11/03/2010 Overview: NHL- Sep 2008 at [facility] [place] Caceres Major depressive disorder 2022 Overview: ICD-10 update of inactive term Other malignant lymphomas, u nspecified site, extranodal and solid organ sites 10/05/2017 Overview: NHL- Sep 2008 at [facility] [place] Caceres documented as of this encounter (statuses as of 12/14/2022) Immunizations Name Administration Dates Next Due COVID-19 [...] Visit Internal Medicine August Esposito MD [address] [place] [address] 01/25/2023 Office Visit Pharmacy Deann Benson [address] [place] [address] 12/23/2023 Office Visit Neurology Karly Sparkssuzan Tonja, DO [address] [place] [address] Pending Results Name Type Priority Associated Diagnoses Date /Time HEMOGLOBIN A1C Lab Routine Type 2 diabetes mellitus with stage 3b chronic kidney disease, with long-term current use of insulin ([facility]) 12/14/2022 12:17 PM EDT LIPID PANEL WITH DIRECT LDL IF TG IS HIGH Lab Routine Type 2 diabetes mellitus with stage 3b chronic kidney disease, with long-term current use of insulin ([facility]) 12/14/2022 12:18 PM EDT VITAMIN B12 Lab Routine Encounter for long-term (current) use of medications Encounter for vitamin deficiency screening 12/14/2022 12:18 PM EDT BASIC METABOLIC PANEL Lab Routine Encounter for long-term (current) use of other medications Hypomagnesemia Status post lung transplantation ([facility]) 12/14/2022 12:18 PM EDT MAGNESIUM Lab Routine Encounter for long-term (current) use of other medications Hypomagnesemia Status post lung transplantation ([facility]) 12/14/2022 12:18 PM EDT TACROLIMUS LEVEL Lab Routine Encounter for long-term (current) use of other medications Hypomagnesemia Status post lung transplantation ([facility]) 12/14/2022 12:17 PM EDT EVEROLIMUS, LC/MS/MS, BLOOD Lab Routine Encounter for long-term (current) use of other medications Hypomagnesemia Status post lung transplantation ([facility]) 12/14/2022 12:17 PM EDT CYTOMEGALOVIRUS DNA, QUANTITATIVE REAL-TIME PCR Lab Routine Encounter for long-term (current) use of other medications Hypomagnesemia Status post lung transplantation (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) 12/14/2022 12:24 PM EDT Scheduled Procedures Name Priority Associated Diagnoses Date/Ti me COLONOSCOPY FLEXIBLE PROXIMA L DIAGNOSTIC Recall Screening for malignant neoplasm of colon Health Maintenance Due Date Last Done Comments *ADVANCE DIRECTIVE NOT ON FILE 08/25/2016 DIABETES-EYE EXAM 03/18/2021 03/18/2020, , 03/19/2014, Additional history exists Depression Screening, Annual for Pts 12 and Over 04/09/2021 04/09/2020, 02/21/2015 Mammogram 07/18/2021 07/18/2020, 05/0 12/2018, 09/07/2018, Additional history exists DXA Scan 09/11/2021 09/11/2018, 09/11/2018 Zoster Vaccines (2 of 2) 09/16/2022 07/22/2022 Influenza Vaccine (FLU shot) (#1) 2022 01/20/2022, 02/02/2021, 01/02/2020, Additional history exists HbA1c 05/11/2023 11/08/2022, 06/02, 07/16/2021, Additional history exists GFR 06/03/2023 12/01/2022, 10/30, 11/16/2022, Additional history exists Albumin/Creatinine Ratio 06/16/2023 023, 09/11/2019, 12/06/2018, Additional history exists DIABETES-FOOT EXAM 07/06/2023 07/05/2022, 0 06/10/2021, 07/10/2020, Additional history exists CKD PHOS USE SMARTSET 40369 11/16/202310/30, 11/08/2022, 05/10/2022, Additional history exists COLONOSCOPY-EVERY 5 YRS AGES 18-100 11/18/2023 11/17/2018 O2 ASSESSMENT COMPLETED IN PAST YEAR FOR COPD 11/23/2023 11/22/2022, 05/24/2014 (Course Completed) CKD HGB USE SMARTSET 27638 12/15/202312/14, 12/14/2022, 12/01/2022, Additional history exists Lipid Panel 06/16/2027 06/16/2022, 06/02, 07/10/2020, Additional history exists DTaP,Tdap,and Td Vaccines (3 [...] this encounter Medical Devices Implanted Type Area Store Team Leader Device Identifier Shelf Expiration Date Model / Serial / Lot Lens Intraoc 21.5 - [id number] - [id number] Implanted:Qty: 1 on 06/10/2020 by Pietro Nuñez MD at OR [facility] Right: Eye [employer] 12/30/2024 [id number] / [id number] / [id number] Lens Intraoc 21.5 - [id number] - [id number] Implanted:Qty: 1 on 06/24/2020 by Pietro Nuñez MD at OR [facility] Left: Eye [employer] 01/29/2025 [id number] / [id number] / [id number] documented as of this encounter Procedures Procedure Name Priority Date/Time Associated Diagnosis Comments DIFFERENTIAL, AUTOMATED Routine 12/14/2022 12:17 PM EDT Encounter for long-term (current) use of other medications Hypomagnesemia Status post lung transplantation (HCC) CBC WITH WBC DIFFERENTIAL Routine 12/14/2022 12:17 PM EDT Encounter for long-term (current) use of other medications Hypomagnesemia Status post lung transplantation (HCC) CBC Routine 12/14/2022 12:17 PM EDT Encounter for long-term (current) use of other medications Hypomagnesemia Status post lung transplantation (HCC) documented in this encounter Results * (ABNORMAL) DIFFERENTIAL, AUTOMATED (12/14/2022 12:17 PM EDT) WBC 8.19 4.00 - 10.80 K/uL 12/14/2022 12:21 PM EDT [facility] 56-02 Neutrophils % 84.6(H) 40.0 - 75.0 % 12/14/2022 12:21 PM EDT [facility] 56-02 Lymphocytes % 7.6(L) 18.0 - 42.0 % 12/14/2022 12:21 PM EDT [facility] 56-02 Monocytes % 7.0 1.0 - 11.0 % 12/14/2022 12:21 PM EDT [facility] 56-02 Eosinophils % 0.4 0.0 - 6.0 % 12/14/2022 12:21 PM EDT [facility] 56-02 Basophils % 0.4 0.0 - 2.0 % 12/14/2022 12:21 PM EDT [facility] 56-02 Absolute Neutrophils 6.94 1.80 - 7.70 K/uL 12/14/2022 12:21 PM EDT [facility] 56-02 Absolute Lymphocytes 0.62(L) 1.00 - 4.80 K/ul 12/14/2022 12:21 PM EDT [facility] 56-02 Absolute Monocytes 0.57 0.00 - 1.10 K/uL 12/14/2022 12:21 PM EDT [facility] 56-02 Absolute Eosinophils 0.03 0.00 - 0.70 K/uL 12/14/2022 12:21 PM EDT [facility] 56-02 Absolute Basophils 0.03 0.00 - 0.20 K/uL 12/14/2022 12:21 PM EDT [facility] 56-02 Blood Venous blood specimen / Unknown Venipuncture / Unknown 12/14/2022 12:17 PM EDT 12/14/2022 12:17 PM EDT Katya Brand MD LAB BLOOD ORD ERABLES [facility] [address] [place] [address] * (ABNORMAL) CBC (12/14/2022 12:17 PM EDT) WBC 8.19 4.00 - 10.80 K/uL 12/14/2022 12:21 PM EDT [place] [address] RBC 3.58 3.85 - 5.15 M/uL 12/14/2022 12:21 PM EDT [place] [address] HGB 10.5(L) 12.0 - 15.3 g/dL 12/14/2022 12:21 PM EDT [place] [address] HCT 31.5(L) 36.0 - 45.2 % 12/14/2022 12:21 PM EDT [place] [address] MCV 88.0 81.5 - 97.5 fL 12/14/2022 12:21 PM EDT [place] [address] MCH 29.3 27.0 - 34.0 pg 12/14/2022 12:21 PM EDT [place] [address] MCHC 33.3 32.0 - 36.0 g/dL 12/14/2022 12:21 PM EDT [place] [address] RDW 15.9 11.5 - 15.5 % 12/14/2022 12:21 PM EDT [place] [address] PLT 193 140 - 400 K/uL 12/14/2022 12:21 PM EDT [place] [address] MPV 8.7 6.6 - 11.1 fL 12/14/2022 12:21 PM EDT [place] [address] Blood Venous blood specimen / Unknown Venipuncture / Unknown 12/14/2022 12:17 PM EDT 12/14/2022 12:17 PM EDT Katya Brand MD LAB BLOOD ORD ERABLES [place] [address] [address] [place] [address] documented in this encounter Visit Diagnoses Diagnosis Type 2 diabetes mellitus with stage 3b chronic kidney disease, with long-term current use of insulin (HCC) Encounter for long-term (current) use of medications Encounter for long-term (current) use of other medications Encounter for vitamin deficiency screening Screening for other and unspecified endocrine, nutritional, metabolic, and immunity disorders Type 2 diabetes mellitus with hemoglobin A1c goal of less than 7.0% (HCC) Encounter for long-term (current) use of other medications Hypomagnesemia 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
--- OUTSIDE RECORDS SUMMARY | 2023-05-24 02:01 | External Medical Summary ---
Author Name Unknown Address Unknown Organization K09:[facility] [place] [address] Laboratory Report Ordering Provider Test Date Status KOBE CHOWDHURYANTA 12/14/2022 12:24:53 Final Observation Date Value Abnormality Reference (Units ) Status Albumin 12/14/2022 12:24:53 4.1 3.8-5.0 (g/dL) Final AST (Aspartate aminotransferase) 12/14/2022 12:24:53 23 10-35 (U/L) Final Alk Phos 12/14/2022 12:24:53 119 35-130 (U/L) Final ALT (Alanine aminotransferase) 12/14/2022 12:24:53 13 10-35 (U/L) Final Bilirubin, Total 12/14/2022 12:24:53 0.2 <=1.2 (mg/dL) Final Bilirubin, Direct 12/14/2022 12:24:53 <0.2 0.0-0.3 (mg/dL) Final Protein 12/14/2022 12:24:53 6.6 6.0-8.3 (g/dL) Final Performing Location [facility] [place] [address]
--- OUTSIDE RECORDS SUMMARY | 2023-05-24 02:01 | External Medical Summary ---
Author Name Unknown Address Unknown Organization K09:[facility] [place] [address] Laboratory Report Ordering Provider Test Date Status NATALIE JOHN 12/31/2022 12:44:14 Final Observation Date Value Abnormality Reference (Units ) Status SYNC LEUKOCYTES IN BLOOD BY AUTOMATED COUNT 12/31/2022 12:44:14 6.48 4.00-10.80 (K/uL) Final Segs 12/31/2022 12:44:14 78.3 Above high normal 40.0-75.0 (%) Final Lymphs % 12/31/2022 12:44:14 10.6 Below low normal 18.0-42.0 (%) Final Monos 12/31/2022 12:44:14 9.9 1.0-11.0 (%) Final Eosinophils 12/31/2022 12:44:14 0.9 0.0-6.0 (%) Final Basos 12/31/2022 12:44:14 0.3 0.0-2.0 (%) Final Absolute Segs 12/31/2022 12:44:14 5.07 1.80-7.70 (K/uL) Final Lymphs, absolute 12/31/2022 12:44:14 0.69 Below low normal 1.00-4.80 (K/ul) Final Monos, Abs 12/31/2022 12:44:14 0.64 0.00-1.10 (K/uL) Final Eos, Abs 12/31/2022 12:44:14 0.06 0.00-0.70 (K/uL) Final Basos, Abs 12/31/2022 12:44:14 0.02 0.00-0.20 (K/uL) Final Performing Location [facility] [place] [address]
--- OUTSIDE RECORDS SUMMARY | 2023-05-24 02:01 | External Medical Summary ---
Author Name Unknown Address Unknown Organization K01:LABORATORY [facility] - [address] [place] [address] Laboratory Report Ordering Provider Test Date Status LAURY CHONG 12/14/2022 12:18:04 Final Observation Date Value Abnormality Reference (Units ) Status Vitamin B12 12/14/2022 12:18:04 [id number] (pg/mL) Final Performing Location [facility] - [address] [place] [address]
--- OUTSIDE RECORDS SUMMARY | 2023-05-24 02:01 | External Medical Summary | Summary of Care ---
Author Name Unknown Organization [facility] Address [address] [place] [address] Phone [phone] Care Team Providers Care Food Service Cashier Name Role Phone August Esposito MD Primary Care Provider + Reason for Visit * Reason Comments Outpatient Testing Encounter Details Date Type Department Care Team Description 12/14/2022 Laboratory Laboratory [facility] [place] [address] [place] [id number] [place], Lab Scenery [address] [place] [id number] Type 2 diabetes mellitus with stage 3b chronic kidney disease, with long-term current use of insulin ([facility]); Encounter for long-term (current) use of medications; Encounter for vitamin deficiency screening; Type 2 diabetes mellitus with hemoglobin A1c goal of less than 7.0% ([facility]); Encounter for long-term (current) use of other medications; Hypomagnesemia; Status post lung transplantation ([facility]); Meningitis, 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[facility]) Allergies Active Allergy Reactions Severity Noted Date [...] 30 Tablet 12 12/02/2021 Active Litetouch Pen [place] 31G X 8 MM (Insulin Pen Needle)Indications:T [...] COPD, group C, by GOLD 2017 classification ([facility]) Inhale 1 Puff by mouth [...] (DVT) of right upper extremity, unspecified vein ([facility]) Take 1 Tablet by [...] mgIndications:Lung transplant status (HCC) 300 mg IM [id number] 01/21/2022 Active Cilgavimab inj 300 mgIndications:Lung transplant status (HCC) 300 mg IM [id number] 01/21/2022 Active documented as of this encounter [...] Pain medication agreement 04/18/2012 Overview: Signed 04/18/12 Hfyok-8-xvzuxmhqfxh deficiency 1 Overview: Prolastin 60mg/kg started 06/07/11, weekly via [facility]. Zamaira given fall 2010 caused arthralgias. 08/28/10 [...] HX- NONHODGKIN'S LYMPHOMA 07/21/20092009 Overview: Sep 2008, [facility] [...] sites 11/03/2010 Overview: NHL- Sep 2008 at [facility] Dr Caceres Major depressive disorder 2022 Overview: ICD-10 update of inactive term Other malignant lymphomas, u nspecified site, extranodal and solid organ sites 10/05/2017 [facility] as of this encounter Miscellaneous Notes * Result Encounter Note - Vic Del Rio PA-C - 12/15/2022 7:24 AM EDT Patient with COLT and hyperkalemia. Please contact patient and have her proceed to ER for repeat testing and treatment. documented in this encounter Plan of Treatment Upcoming Encounters Date Type Specialty Care Team Description 01/11/2023 Office Visit Internal Medicine August Esposito MD [address] [place] [address] 01/25/[address] [facility] [place] [address] [facility] [place] [address] 12/23/2023 Office Visit Neurology Jayashree Sparks, DO [address] [facility] [place] [address] Pending Results Name Type Priority Associated Diagnoses Date /Time TACROLIMUS LEVEL Lab Routine Encounter for long-term (current) use of other medications Hypomagnesemia Status post lung transplantation (HCC) 12/14/2022 12:07 PM EDT EVEROLIMUS, LC/MS/MS, BLOOD Lab Routine Encounter for long-term (current) use of other medications Hypomagnesemia Status post lung transplantation (HCC) 12/14/2022 12:17 PM EDT CYTOMEGALOVIRUS DNA, QUANTITATIVE REAL-TIME PCR Lab Routine Encounter for long-term (current) use of other medications Hypomagnesemia Status post lung transplantation (HCC) 12/14/2022 12:17 PM EDT Scheduled Procedures Name Priority Associated [...] Additional history exists CKD PHOS USE SMARTSET 78806 11/16/202310/30, 11/08/2022, 05/10/2022, Additional history exists COLONOSCOPY-EVERY 5 YRS AGES 18-100 11/18/2023 11/17/2018 O2 ASSESSMENT COMPLETED IN PAST YEAR FOR COPD 11/23/2023 11/22/2022, 05/24/2014 (Course Completed) CKD HGB USE SMARTSET 10571 12/15/202312/14, 12/14/2022, 12/01/2022, Additional history exists Lipid [...] this encounter Medical Devices Implanted Type Area Recycling Program Manager Device Identifier Shelf Expiration Date Model / Serial / Lot Lens Intraoc 21.5 - [id number] - [id number] Implanted:Qty: 1 on 06/10/2020 by Pietro Nuñez MD at OR [facility] Right: Eye [employer] 12/30/2024 [id number] / [id number] Lens Intraoc 21.5 - [id number] - [id number] Implanted:Qty: 1 on 06/24/2020 by Pietro Nuñez MD at OR [facility] Left: Eye [employer] 01/29/2025 [id number] / [id number] documented as of this encounter Procedures Procedure Name Priority Date/Time Associated Diagnosis Comments HEPATIC FUNCTION PANEL Routine 12/14/2022 12:24 PM EDT Meningitis, 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HCC) LIPID PANEL WITH DIRECT LDL IF TG IS HIGH Routine 12/14/2022 12:18 PM EDT Type 2 diabetes mellitus with stage 3b chronic kidney disease, with long-term current use of insulin (HCC) BASIC METABOLIC PANEL Routine 12/14/2022 12:18 PM EDT Encounter for long-term (current) use of other medications Hypomagnesemia Status post lung transplantation (HCC) MAGNESIUM Routine 12/14/2022 12:18 PM EDT Encounter for long-term (current) use of other medications Hypomagnesemia Status post lung transplantation (HCC) LDL CHOLESTEROL (DIRECT MEASURE) Routine 12/14/2022 12:18 PM EDT Type 2 diabetes mellitus with stage 3b chronic kidney disease, with long-term current use of insulin (HCC) VITAMIN B12 Routine 12/14/2022 12:18 PM EDT Encounter for long-term (current) use of medications Encounter for vitamin deficiency screening DIFFERENTIAL, AUTOMATED Routine 12/14/2022 12:17 PM EDT Encounter for long-term (current) use of other medications Hypomagnesemia Status post lung transplantation (HCC) HEMOGLOBIN A1C Routine 12/14/2022 12:17 PM EDT Type 2 diabetes mellitus with stage 3b chronic kidney disease, with long-term current use of insulin (HCC) CBC WITH WBC DIFFERENTIAL Routine 12/14/2022 12:17 PM EDT Encounter for long-term (current) use of other medications Hypomagnesemia Status post lung transplantation (HCC) CBC Routine 12/14/2022 12:17 PM EDT Encounter for long-term (current) use of other medications Hypomagnesemia Status post lung transplantation (HCC) documented in this encounter Results * HEPATIC FUNCTION PANEL (12/14/2022 12:24 PM EDT) [facility] Albumin 4.1 3.8 - 5.0 g/dL 12/14/2022 1:30 PM EDT [facility] [place] [facility]02 AST 23 10 - 35 U/L 12/14/2022 1:30 PM EDT [facility] [place] [facility]-02 Alkaline Phosphatase 119 35 - 130 U/L 12/14/2022 1:30 PM EDT [facility] [place] 56-02 ALT 13 10 - 35 U/L 12/14/2022 1:30 PM EDT [facility] [place] 56-02 Bilirubin, Total 0.2 <=1.2 mg/dL 12/14/2022 1:30 PM EDT [facility] [place] 56-02 Bilirubin, Direct <0.2 0.0 - 0.3 mg/dL 12/14/2022 1:30 PM EDT [facility] [place] 56-02 Protein 6.6 6.0 - 8.3 g/dL 12/14/2022 1:30 PM EDT [facility] [place] 56-02 Blood Venous blood specimen / Unknown Venipuncture / Unknown 12/14/2022 12:24 PM EDT 12/14/2022 12:24 PM EDT Dianne Chaudhary LAB BLOOD ORDERABLES [facility] 56-02 [address] [place] [address] * LDL CHOLESTEROL (DIRECT MEASURE) (12/14/2022 12:18 PM EDT) [facility] LDL Cholesterol (Direct Measure) 85 <=129 mg/dL 12/14/2022 11:54 PM EDT [facility] Comment: LDL Cholesterol Reference Ranges (mg/dL): <70 Target level for high risk ASCVD patient <100 Optimal for general population 100-129 Near optimal for general population 130-159 Borderline high 160-189 High >=190 Very high Blood Venous blood specimen / Unknown Venipuncture / Unknown 12/14/2022 12:18 PM EDT 12/14/2022 12:18 PM EDT Vic Del Rio PA-C LAB BLOOD ORDERABL ES [facility] [address] [place] [address] * MAGNESIUM (12/14/2022 12:18 PM EDT) [facility] Magnesium 2.0 1.5 - 2.6 mg/dL 12/14/2022 1:08 PM EDT [facility] Blood Venous blood specimen / Unknown Venipuncture / Unknown 12/14/2022 12:18 PM EDT 12/14/2022 12:18 PM EDT Katya Brand MD LAB BLOOD ORD ERABLES [facility] 56-[address] [place] [address] * (ABNORMAL) BASIC METABOLIC PANEL (12/14/2022 12:18 PM EDT) [facility] BUN 27(H) 6 - 20 mg/dL 12/14/2022 1:08 PM EDT [facility] 56- Creatinine 2.6(H) 0.5 - 1.0 mg/dL 12/14/2022 1:08 PM EDT [address] Estimated Glomerular Filtration Rate 19(L) >=60 mL/min 12/14/2022 1:08 PM EDT [facility] 56 Comment:eGFR is calculated b ased on the CKD-EPI 2020 equation Sodium 134(L) 135 - 146 mmol/L 12/14/2022 1:08 PM EDT [address] Potassium 6.1(H) 3.5 - 5.1 mmol/L 12/14/2022 1:08 PM EDT [address] Chloride 101 98 - 107 mmol/L 12/14/2022 1:08 PM EDT [address] CO2 20(L) 22 - 32 mmol/L 12/14/2022 1:08 PM EDT [address] Anion Gap 13 7 - 15 mmol/L 12/14/2022 1:08 PM EDT [address] Glucose 164(H) 70 - 120 mg/dL 12/14/2022 1:08 PM EDT [address] Calcium 9.6 8.4 - 10.2 mg/dL 12/14/2022 1:08 PM EDT [address] Blood Venous blood specimen / Unknown Venipuncture / Unknown 12/14/2022 12:18 PM EDT 12/14/2022 12:18 PM EDT Katya Brand MD LAB BLOOD ORD ERABLES [address] [place] [address] * VITAMIN B12 (12/14/2022 12:18 PM EDT) Pathologist [facility] Vitamin B12 959 232 - 1,245 pg/mL 12/14/2022 11:54 PM EDT LABORATORY [facility] Blood Venous blood specimen / Unknown Venipuncture / Unknown 12/14/2022 12:18 PM EDT 12/14/2022 12:18 PM EDT Abelino Pat [facility] LAB BLOOD ORDERABL ES LABORATORY [facility] [address] [place] [address] * (ABNORMAL) LIPID PANEL WITH DIRECT LDL IF TG IS HIGH (12/14/2022 12:18 PM EDT) Triglycerides 536(H) <=174 mg/dL 12/14/2022 11:54 PM EDT LABORATORY [facility] Comment: Triglyceride Reference Ranges (mg/dL): <150 Acceptable 150-174 Borderline high 175-499 High >=500 Very high Cholesterol 211(H) <200 mg/dL 12/14/2022 11:54 PM EDT LABORATORY [facility] Comment: Total Cholesterol Reference Ranges (mg/dL): <200 Desirable 200-239 Borderline high >=240 High HDL Cholesterol 40(L) >49 mg/dL 11:54 PM EDT LABORATORY [facility] Comment: HDL Cholesterol Reference Ranges (mg/dL): >=60 High (Desirable) <50 Low (Undesirable) For Females <40 Low (Undesirable) For Males Non-HDL Cholesterol 171(H) <=159 mg/dL 12/14/2022 11:54 PM EDT LABORATORY [facility] Comment: Non-HDL Cholesterol Reference Range (mg/dL): <100 Target level for high risk ASCVD patient <130 Optimal for general population 130-159 Near optimal for general population 160-189 Borderline High 190-219 High >=220 Very High Blood Venous blood specimen / Unknown Venipuncture / Unknown 12/14/2022 12:18 PM EDT 12/14/2022 12:18 PM EDT V[facility] Del Rio PA-C LAB BLOOD ORDERABL ES LABORATORY [facility] [address] [place] [address] * (ABNORMAL) DIFFERENTIAL, AUTOMATED (12/14/2022 12:17 PM EDT) WBC 8.19 4.00 - 10.80 K/uL 12/14/2022 12:21 PM EDT [facility] [place] 56-02 Neutrophils % 84.6(H) 40.0 - 75.0 % 12/14/2022 12:21 PM EDT [facility] 56-02 Lymphocytes % 7.6(L) 18.0 - 42.0 % 12/14/2022 12:21 PM EDT [facility] 56-02 Monocytes % 7.0 1.0 - 11.0 % 12/14/2022 12:21 PM EDT [facility] 56-02 Eosinophils % 0.4 0.0 - 6.0 % 12/14/2022 12:21 PM EDT [facility] 56-02 Basophils % 0.4 0.0 - 2.0 % 12/14/2022 12:21 PM EDT [facility] 56-02 Absolute Neutrophils 6.94 1.80 - 7.70 K/uL 12/14/2022 12:21 PM EDT [facility] 56-02 Absolute Lymphocytes 0.62(L) 1.00 - 4.80 K/ul 12/14/2022 12:21 PM EDT [facility] 56-02 Absolute Monocytes 0.57 0.00 - 1.10 K/uL 12/14/2022 12:21 PM EDT [facility] 56-02 Absolute Eosinophils 0.03 0.00 - 0.70 K/uL 12/14/2022 12:21 PM EDT [facility] 56-02 Absolute Basophils 0.03 0.00 - 0.20 K/uL 12/14/2022 12:21 PM EDT [facility] 56-02 Blood Venous blood specimen / Unknown Venipuncture / Unknown 12/14/2022 12:17 PM EDT 12/14/2022 12:17 PM EDT Katya Brand MD LAB BLOOD ORD ERABLES [facility] 56-[address] [place] [address] * (ABNORMAL) CBC (12/14/2022 12:17 PM EDT) [facility] WBC 8.19 4.00 - 10.80 K/uL 12/14/2022 12:21 PM EDT [facility] 56-02 RBC 3.58 3.85 - 5.15 M/uL 12/14/2022 12:21 PM EDT [place] [address] HGB 10.5(L) 12.0 - 15.3 g/dL 12/14/2022 12:21 PM EDT [place] [address] HCT 31.5(L) 36.0 - 45.2 % 12/14/2022 12:21 PM EDT [place] [address] MCV 88.0 81.5 - 97.5 fL 12/14/2022 12:21 PM EDT [place] [address] MCH 29.3 27.0 - 34.0 pg 12/14/2022 12:21 PM EDT [place] [address] MCHC 33.3 32.0 - 36.0 g/dL 12/14/2022 12:21 PM EDT [place] [address] RDW 15.9 11.5 - 15.5 % 12/14/2022 12:21 PM EDT [place] [address] PLT 193 140 - 400 K/uL 12/14/2022 12:21 PM EDT [place] [address] MPV 8.7 6.6 - 11.1 fL 12/14/2022 12:21 PM EDT [place] [address] Blood Venous blood specimen / Unknown Venipuncture / Unknown 12/14/2022 12:17 PM EDT 12/14/2022 12:17 PM EDT Katya Brand MD LAB BLOOD ORD ERABLES [place] [address] [place] [address] * (ABNORMAL) HEMOGLOBIN A1C (12/14/2022 12:17 PM EDT) Hemoglobin A1C 6.3(H) 4.0 - 5.6 % 12/14/2022 11:53 PM EDT LABORATORY [facility] Comment:The use of HbA1c to monitor glycemic status is based on normal hemoglobin and HbA composition. This test should not be used in patients with abnormal hemoglobin that affects the half life of the red blood cell or the in vivo glycation rates. Estimated Average Glucose 134(H) <126 mg/dL 12/14/2022 11:53 PM EDT LAB[facility]ATORY [facility] Blood Venous blood specimen / Unknown Venipuncture / Unknown 12/14/2022 12:17 PM EDT 12/14/2022 12:17 PM EDT Vic Del Rio PA-C LAB BLOOD ORDERABL ES LAB[facility]ATORY [facility] [address] [place] [address] documented in this encounter Visit Diagnoses Diagnosis [...] Cryptococcosis documented in this encounter Care Teams Food Service Cashier Relationship Specialty Start Date End Date August Esposito MD [address] [place] [address] PCP - General Internal Medicine 12/13/11 documented as of this encounter
--- OUTSIDE RECORDS SUMMARY | 2023-05-24 02:02 | External Medical Summary | Summary of Care ---
Author Name Unknown Organization [facility] Address [address] [place] [address] Phone [phone] Care Team Providers Care Gas Processing Plant Operator Name Role Phone August Esposito MD Primary Care Provider + Reason for Visit * Reason Comments Outpatient Testing Encounter Details Date Type Department Care Team Description 12/01/2022 Laboratory Laboratory Scenery [place] [address] [place] [address] [facility] Scen[facility] [address] [place] [address] Encounter for long-term (current) use of other medications; Hypomagnesemia; Status post lung transplantation (HCC) Allergies Active Allergy Reactions Severity Noted Date Comments Pollen 01/02/2020 Other reaction(s): Sneezing (finding) documented as of this encounter (statuses as of 12/01/2022) Medications Medication Sig Dispensed Refills Start Date [...] 30 Tablet 12 12/02/2021 Active Litetouch Pen [place] 31G X 8 MM (Insulin Pen Needle)Indications:T [...] COPD, group C, by GOLD 2017 classification ([facility]) Inhale 1 Puff by [...] disease, with long-term current use of insulin ([facility]) Use to check sugars 4 times a day. 400 Strip 3 07/05/2022 Active oxyCODONE HCl ER 15 MG Oral Tablet ER 12 Hour Abuse-Deterrent (oxyCONTIN)Indicatio ns:Disc disorder of lumbar region Take 1 Tablet by mouth in the morning and 1 Tablet before bedtime. 60 Tablet 0 10/05/2022 Active HYDROmorphone HCl 2 MG Oral Tablet (Dilaudid)Indication s:Disc disorder of lumbar region Take 1 Tablet by mouth every 12 hours as needed for Pain, Severe. 60 Tablet 0 10/05/2022 Active Magnesium 400 MG Oral Tablet Take [...] (DVT) of right upper extremity, unspecified vein ([facility]) Take 1 Tablet by [...] 5mg DAILY. 90 Tablet 3 11/22/2022 Active Hospital, Clinic, or Other Facility Administered Medication Ordered Dose Route Frequency Start Date End Date Status Tixagevimab inj 300 mgIndications:Lung transplant status (HCC) 300 mg IM [id number] 01/21/2022 Active Cilgavimab inj 300 mgIndications:Lung transplant status (HCC) 300 mg IM [id number] 01/21/2022 Active documented as of this encounter (statuses as of 12/01/2022) Active Problems Problem Noted Date History of [...] Pain medication agreement 04/18/2012 Overview: Signed 04/18/12 Otwts-7-ljdrbgthnic deficiency 1 Overview: Prolastin 60mg/kg started 06/07/11, [facility]. Zamaira given fall 2010 caused arthralgias. 08/28/10 - <30 10/12/08 - MM allele 08/22/08 - 232 Proteinuria 10/08/2009 History of tobacco use 09/10/2009 Chronic rhinitis 09/10/2009 Esophageal reflux Disc disorder of lumbar region Overview: has had multiple surgeries - now w/ chronic back pain from postlaminectomy syndrome documented as of this encounter (statuses as of 12/01/2022) Resolved Problems Problem Noted Date Resolved Date [...] 24hrs/day. 07/26/09: Failed 2 step at [facility], 2 LPM 24 hr/day 07/15/09: Nocturnal pulse [...] Overview: chronic back pain - sees [facility] Other malignant lymphomas, u nspecified [...] as of this encounter (statuses as of 12/01/2022) Immunizations Name Administration Dates Next Due COVID-19 mRNA, LNP-s, No Pre serve, 2-Dose Series (Moderna) 01/24/2021,07/03/2020,05/31/2020 Covid-19, Mrna, Lnp-s, Pf, B ivalent, 30 Mcg, IM, 12 yrs and above (Ad Dynamo) 04/21/2022 H1N1 2009 Influenza, IM 06/11/2009 Hepatitis [...] Encounters Date Type Specialty Care Team Description 12/07/2022 Office Visit Neurology Jayashree Sparks, DO [address] [facility] [place] [address] 01/11/2023 Office Visit Internal Medicine August Esposito MD [address] [place] [address] 01/25/2023 Office Visit Pharmacy [facility] [address] [place] Pending Results Name Type Priority Associated Diagnoses Date /Time BASIC METABOLIC PANEL Lab Routine Encounter for long-term (current) use of other medications Hypomagnesemia Status post lung transplantation (HCC) 12/01/2022 3:07 PM EDT MAGNESIUM Lab Routine Encounter for long-term (current) use of other medications Hypomagnesemia Status post lung transplantation (HCC) 12/01/2022 3:07 PM EDT CYTOMEGALOVIRUS DNA, QUANTITATIVE REAL-TIME PCR Lab Routine Encounter for long-term (current) use of other medications Hypomagnesemia Status post lung transplantation (HCC) 12/01/2022 3:07 PM EDT TACROLIMUS LEVEL Lab Routine Encounter for long-term (current) use of other medications Hypomagnesemia Status post lung transplantation (HCC) 12/01/2022 3:07 PM EDT EVEROLIMUS, LC/MS/MS, BLOOD Lab Routine Encounter for long-term (current) use of other medications Hypomagnesemia Status post lung transplantation (HCC) 12/01/2022 3:07 PM EDT Scheduled Procedures Name Priority Associated [...] 01/02/2020, Additional history exists HbA1c 05/11/2023 11/08/2022, 0208/2022, 07/16/2021, Additional history exists GFR 05/20/2023 11/17/2022, 10/30, 11/15/2022, Additional history exists Albumin/Creatinine Ratio 06/16/2023 023, 09/11/2019, 12/06/2018, Additional history exists DIABETES-FOOT EXAM 07/06/2023 07/05/2022, 0 06/10/2021, 07/10/2020, Additional history exists CKD HGB USE SMARTSET 14105 11/16/202312/01, 12/01/2022, 11/15/2022, Additional history exists CKD PHOS USE SMARTSET 53000 11/16/202310/30, 11/08/2022, 05/10/2022, Additional history exists COLONOSCOPY-EVERY 5 YRS AGES 18-100 11/18/2023 11/17/2018 O2 ASSESSMENT COMPLETED IN PAST YEAR FOR COPD 11/23/2023 11/22/2022, 05/24/2014 (Course Completed) Lipid Panel 06/16/2027 06/16/2022, 06/02, 07/10/2020, Additional [...] this encounter Medical Devices Implanted Type Area Paratransit Driver Device Identifier Shelf Expiration Date Model / Serial / Lot Lens Intraoc 21.5 - [id number] - [id number] Implanted:Qty: 1 on 06/10/2020 by Pietro Nuñez MD at OR [facility] Right: Eye [employer] 12/30/2024 [id number] / [id number] / [id number] Lens Intraoc 21.5 - [id number] - [id number] Implanted:Qty: 1 on 06/24/2020 by Pietro Nuñez MD at OR [facility] Left: Eye [employer] 01/29/2025 [id number] / [id number] / [id number] documented as of this encounter Procedures Procedure Name Priority Date/Time Associated Diagnosis Comments DIFFERENTIAL, AUTOMATED Routine 12/01/2022 3:07 PM EDT Encounter for long-term (current) use of other medications Hypomagnesemia Status post lung transplantation (HCC) CBC WITH WBC DIFFERENTIAL Routine 12/01/2022 3:07 PM EDT Encounter for long-term (current) use of other medications Hypomagnesemia Status post lung transplantation (HCC) CBC Routine 12/01/2022 3:07 PM EDT Encounter for long-term (current) use of other medications Hypomagnesemia Status post lung transplantation (HCC) documented in this encounter Results * (ABNORMAL) DIFFERENTIAL, AUTOMATED (12/01/2022 3:07 PM EDT) WBC 6.13 4.00 - 10.80 K/uL 12/01/2022 3:19 PM EDT [facility] [place] 56-02 Neutrophils % 89.9(H) 40.0 - 75.0 % 12/01/2022 3:19 PM EDT [facility] [place] 56[facility]02 Lymphocytes % 5.5(L) 18.0 - 42.0 % 12/01/2022 3:19 PM EDT [facility] [place] 56-02 Monocytes % 3.9 1.0 - 11.0 % 12/01/2022 3:19 PM EDT [facility] [place] 56-02 Eosinophils % 0.0 0.0 - 6.0 % 12/01/2022 3:19 PM EDT [facility] [place] 56-02 Basophils % 0.7 0.0 - 2.0 % 12/01/2022 3:19 PM EDT [facility] Absolute Neutrophils 5.51 1.80 - 7.70 K/uL 12/01/2022 3:19 PM EDT [facility] Absolute Lymphocytes 0.34(L) 1.00 - 4.80 K/ul 12/01/2022 3:19 PM EDT [facility] Absolute Monocytes 0.24 0.00 - 1.10 K/uL 12/01/2022 3:19 PM EDT [facility] Absolute Eosinophils 0.00 0.00 - 0.70 K/uL 12/01/2022 3:19 PM EDT [facility] Absolute Basophils 0.04 0.00 - 0.20 K/uL 12/01/2022 3:19 PM EDT [facility] Blood Venous blood specimen / Unknown Venipuncture / Unknown 12/01/2022 3:07 PM EDT 12/01/2022 3:07 PM EDT Katya Brand MD LAB BLOOD ORD ERABLES [facility] [address] [place] [address] * (ABNORMAL) CBC (12/01/2022 3:07 PM EDT) WBC 6.13 4.00 - 10.80 K/uL 12/01/2022 3:19 PM EDT [facility] RBC 3.57 3.85 - 5.15 M/uL 12/01/2022 3:19 PM EDT [facility] HGB 10.2(L) 12.0 - 15.3 g/dL 12/01/2022 3:19 PM EDT [facility] HCT 30.9(L) 36.0 - 45.2 % 12/01/2022 3:19 PM EDT [facility] MCV 86.6 81.5 - 97.5 fL 12/01/2022 3:19 PM EDT [facility] MCH 28.6 27.0 - 34.0 pg 12/01/2022 3:19 PM EDT [facility] MCHC 33.0 32.0 - 36.0 g/dL 12/01/2022 3:19 PM EDT [facility] RDW 14.2 11.5 - 15.5 % 12/01/2022 3:19 PM EDT [facility] PLT 202 140 - 400 K/uL 12/01/2022 3:19 PM EDT [facility] MPV 8.7 6.6 - 11.1 fL 12/01/2022 3:19 PM EDT [facility] Blood Venous blood specimen / Unknown Venipuncture / Unknown 12/01/2022 3:07 PM EDT 12/01/2022 3:07 PM EDT Katya Brand MD LAB BLOOD ORD ERABLES [facility] [address] [place], [place] [address] documented in this encounter Visit Diagnoses Diagnosis Encounter for long-term (current) use of other medications Hypomagnesemia 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
--- OUTSIDE RECORDS SUMMARY | 2023-05-24 02:02 | External Medical Summary | Summary of Care ---
Author Name Unknown Organization [facility] Address [address] [place] [address] Phone [phone] Care Team Providers Care Hygiene Teacher Name Role Phone August Esposito MD Primary Care Provider + Reason for Visit * Reason Onset Date Comments Appointment 12/03/2022 Encounter Details Date Type Department Care Team Description 12/03/2022 Telephone Neurology [facility] [place] [address] [place] [address] Services, Scheduling [address] [place] [address] Appointment Allergies Active Allergy Reactions Severity Noted Date Comments Pollen 01/02/2020 Other reaction(s): Sneezing (finding) documented as of this encounter (statuses as of 12/06/2022) Medications Medication Sig Dispensed Refills Start Date [...] 30 Tablet 12 12/02/2021 Active Litetouch Pen [place] 31G X 8 MM (Insulin Pen Needle)Indications:T [...] mgIndications:Lung transplant status (HCC) 300 mg IM [id number] 01/21/2022 Active Cilgavimab inj 300 mgIndications:Lung transplant status (HCC) 300 mg IM [id number] 01/21/2022 Active documented as of this encounter (statuses as of 12/06/2022) Active Problems Problem Noted Date History of [...] Pain medication agreement 04/18/2012 Overview: Signed 04/18/12 Nndwq-1-bmszwpibecl deficiency 1 Overview: Prolastin 60[facility]/kg [facility]07/[facility] given fall 2010 caused arthralgias. 08/28/10 - <30 10/12/08 - MM allele 08/22/08 - 232 Proteinuria 10/08/2009 History of tobacco use 09/10/2009 Chronic rhinitis 09/10/2009 Esophageal reflux Disc disorder of lumbar region Overview: has had multiple surgeries - now w/ chronic back pain from postlaminectomy syndrome documented as of this encounter (statuses as of 12/06/2022) Resolved Problems Problem Noted Date Resolved Date [...] HX- NONHODGKIN'S LYMPHOMA 07/21/20092009 Overview: Sep 2008, [facility] [...] sites 11/03/2010 Overview: NHL- Sep 2008 at [facility] Dr Caceres Major depressive disorder 2022 Overview: ICD-10 update of inactive term Other malignant lymphomas, u nspecified site, extranodal and solid organ sites 10/05/2017 Overview: NHL- Sep 2008 at [facility] Dr Caceres documented as of this encounter (statuses as of 12/06/2022) Immunizations Name Administration Dates Next Due COVID-19 [...] encounter Miscellaneous Notes * Telephone Encounter - TIKI Gomez - 12/06/2022 3:30 PM EDT Pt scheduled 1st available and added to wait list * Telephone Encounter - TIKI Gomez - 12/03/2022 2:22 PM EDT Please advise where pt can be added * Telephone Encounter - Trudi Ijomah, TIKI - 12/03/2022 1:51 PM EDT Pt requesting a return memory with preferable in sesser but would also do [place], but apt were not available due to provider being out of network. please advise or schedule as appropriate. Thank you documented in this encounter Plan of Treatment Upcoming Encounters Date Type Specialty Care Team Description 01/11/2023 Office Visit Internal Medicine August Esposito MD [address] [place] [address] 01/25/2023 Office Visit Pharmacy [facility] [place] [address] [place] [address] 12/23/2023 Office Visit Neurology Jayashree Sparks, [address] [facility] [place] [phone] Scheduled Procedures Name Priority Associated Diagnoses Date/Ti [...] 01/02/2020, Additional history exists HbA1c 05/11/2023 11/08/2022, 02/1 08/2022, 07/16/2021, Additional history exists GFR 06/03/2023 12/01/2022, 10/30, 11/16/2022, Additional history exists Albumin/Creatinine Ratio 06/16/2023 023, 09/11/2019, 12/06/2018, Additional history exists DIABETES-FOOT EXAM 07/06/2023 07/05/2022, 0 06/10/2021, 07/10/2020, Additional history exists CKD PHOS USE SMARTSET 19489 11/16/202310/30, 11/08/2022, 05/10/2022, Additional history exists COLONOSCOPY-EVERY 5 YRS AGES 18-100 11/18/2023 11/17/2018 O2 ASSESSMENT COMPLETED IN PAST YEAR FOR COPD 11/23/2023 11/22/2022, 05/24/2014 (Course Completed) CKD HGB USE SMARTSET 26279 12/02/202312/01, 12/01/2022, 11/15/2022, Additional history exists Lipid Panel 06/16/2027 06/16/2022, [...] this encounter Medical Devices Implanted Type Area Convenience Store Clerk Device Identifier Shelf Expiration Date Model / Serial / Lot Lens Intraoc 21.5 - [id number] - [id number] Implanted:Qty: 1 on 06/10/2020 by Pietro Nuñez MD at OR [facility] Right: Eye BAUSCH & LOMB 12/30/2024 [id number] / [id number] / [id number] Lens Intraoc 21.5 - [id number] - [id number] Implanted:Qty: 1 on 06/24/2020 by Pietro Nuñez MD at OR [facility] Left: Eye BAUSCH & LOMB 01/29/2025 [id number] / [id number] / [id number] documented as of this encounter Additional Health Concerns Infection Onset Date Last Indicated Resolved Time Parainfluenza Virus 11/22/2022 11/22/2022 documented as of this encounter Care Teams Hygiene Teacher Relationship Specialty Start Date End Date August Esposito MD [address] [place] [address] PCP - General Internal Medicine 12/13/11 documented as of this encounter
--- OUTSIDE RECORDS SUMMARY | 2023-05-24 02:02 | External Medical Summary | Summary of Care ---
Author Name Unknown Organization [facility] Address [address] [place] [address] Phone [phone] Care Team Providers Care Trouble Shooter Name Role Phone August Esposito MD Primary Care Provider + Reason for Referral * Medication Prior Authorization - Closed Specialty Diagnoses / Procedures Referred By Contac t Referred To Contact Diagnoses Disc disorder of lumbar region August Esposito MD [address] [facility] [address] Referral ID Status Reason Start Date Expiration Date Visits Re quested Visits Authorized [id number] Closed 999 999 * Medication Prior Authorization - Closed Specialty Diagnoses / Procedures Referred By Contac t Referred To Contact Diagnoses Disc disorder of lumbar region August Esposito MD [address] [facility] [address] Referral ID Status Reason Start Date Expiration Date Visits Re quested Visits Authorized [id number] Closed 999 999 Reason for Visit * Reason Onset Date Comments Medication Refill 12/09/2022 Encounter Details Date Type Department Care Team Description 12/09/2022 Refill General Internal Medicine [place] [facility] [place] [address] [facility] [address] August Esposito MD [address] [place] [address] Disc disorder of lumbar region Allergies Active Allergy Reactions Severity Noted Date Comments Pollen 01/02/2020 Other reaction(s): Sneezing (finding) documented as of this encounter (statuses as of 12/09/2022) Medications Medication Sig Dispensed Refills Start Date [...] 30 Tablet 12 12/02/2021 Active Litetouch Pen [place] 31G X 8 MM (Insulin Pen Needle)Indications: Type 2 diabetes mellitus with hemoglobin A1c goal of less than 7.0% ([facility]) USE WITH INSULIN 3 TIMES A DAY WITH MEALS. 100 Each 5 01/07/2022 Active Insulin Lispro (1 Unit Dial) 100 UNIT/ML Subcutaneous Solution Pen-injector (Admelog)Indication s:Type 2 diabetes mellitus with hemoglobin A1c goal of less than 7.0% ([facility]) Inject under the skin 8 Units three times a day with meals . Hold if meal will be missed 9 mL 2 02/04/2022 Active Accu-Chek Softclix LancetsIndications: Type 2 diabetes mellitus with hemoglobin A1c goal of less than 7.0% ([facility]) Test one time daily. Dx: E11.9 100 Each 3 04/04/2022 Active Insulin Glargine Solostar 100 UNIT/ML Subcutaneous Solution Pen-injector (Lantus SoloStar)Indication s:Type 2 diabetes mellitus with hemoglobin A1c goal of less than 7.0% ([facility]) Inject 15 Units under the skin at bedtime. 15 mL 0 05/20/2022 Active Fluticasone Furoate-Vilanterol 100-25 MCG/ACT Inhalation Aerosol Powder Breath Activated (BREO ellipta)Indications :COPD, group C, by GOLD 2017 classification ([facility]) Inhale 1 Puff by mouth in the [...] long-term current use of insulin ([facility]) Use to check sugars 4 times a [...] Tablet (Deltasone)Indicati ons:Lung transplant status ([facility]) Take 1 Tablet by mouth in the [...] before bedtime. 60 Tablet 0 12/09/2022 Active oxyCODONE HCl ER 15 MG Oral Tablet ER 12 Hour Abuse-Deterrent (oxyCONTIN)Indicati ons:Disc disorder of lumbar region Take 1 Tablet by mouth in the morning and 1 Tablet before bedtime. 60 Tablet 0 10/05/2022 3 Discontinu ed(Refill) HYDROmorphone HCl 2 MG Oral Tablet (Dilaudid)Indicatio ns:Disc disorder of lumbar region Take 1 Tablet by mouth every 12 hours as needed for Pain, Severe. 60 Tablet 0 10/05/2022 3 Discontinu ed(Refill) Hospital, Clinic, or Other Facility Administered Medication Ordered Dose Route Frequency Start Date End Date Status Tixagevimab inj 300 mgIndications:Lung transplant status ([facility]) 300 mg IM [id number] 01/21/2022 Active Cilgavimab inj 300 mgIndications:Lung transplant status ([facility]) 300 mg IM [id number] 01/21/2022 Active documented as of this encounter (statuses as of 12/09/2022) Active Problems Problem Noted Date History of [...] Pain medication agreement 04/18/2012 Overview: Signed 04/18/12 Iapkg-3-bujocdxotqy deficiency 1 Overview: Prolastin 60mg/kg [facility] 06/07/11[facility] Zamaira given fall 2010 caused arthralgias. 08/28/10 - <30 10/12/08 - MM allele 08/22/08 - 232 Proteinuria 10/08/2009 History of tobacco use 09/10/2009 Chronic rhinitis 09/10/2009 Esophageal reflux Disc disorder of lumbar region Overview: has had multiple surgeries - now w/ chronic back pain from postlaminectomy syndrome documented as of this encounter (statuses as of 12/09/2022) Resolved Problems Problem Noted Date Resolved Date [...] HX- NONHODGKIN'S LYMPHOMA 07/21/20092009 Overview: Sep 2008, [facility], received 3 doses of chemo, remission COPD [...] sites 11/03/2010 Overview: NHL- Sep 2008 at [facility] Dr Caceres Major depressive disorder 2022 Overview: ICD-10 update of inactive term Other malignant lymphomas, u nspecified site, extranodal and solid organ sites 10/05/2017 Overview: NHL- Sep 2008 at [facility] Dr Caceres documented as of this encounter (statuses as of 12/09/2022) Immunizations Name Administration Dates Next Due COVID-19 [...] Miscellaneous Notes * Telephone Encounter - August Esposito MD - 12/09/2022 11:12 AM EDTSigned Prescriptions: Disp Refills HYDROmorphone HCl 2 MG Oral Tablet (Dilaud*60 Tab*0 Sig: Take 1 Tablet by mouth every 12 hours as needed for Pain, Severe. Authorizing Provider: AUGUST ESPOSITO oxyCODONE HCl ER 15 MG Oral Tablet ER 12 H*60 Tab*0 Sig: Take 1 Tablet by mouth in the morning and 1 Tablet before bedtime. Authorizing Provider: AUGUST JAVIER * Telephone Encounter - Abelino Pat [facility] - 12/09/2022 11:00 AM EDTPending Prescriptions: Disp Refills HYDROmorphone HCl 2 MG Oral Tablet (Dilaud*60 Tab*0 Sig: Take 1 Tablet by mouth every 12 hours as needed for Pain, Severe. oxyCODONE HCl ER 15 MG Oral Tablet ER 12 H*60 Tab*0 Sig: Take 1 Tablet by mouth in the morning and 1 Tablet before bedtime. * Telephone Encounter - Abelino Pat [facility] - 12/09/2022 10:57 AM EDT Images from the original note were not included. I have reviewed the patients controlled substance dispensing history in the Prescription Drug Monitoring Program in compliance with the [facility] regulations before prescribing a controlled substance. PDMP checked on 12/09/2022. Pending Prescriptions: Disp Refills HYDROmorphone HCl 2 [...] Visit: 01/11/2023 Date medication was last filled: oxycontin 10-06-22, dilaudid 2mg 11-04-22 (9 tabs, 4 day supply) Patient also got dilaudid 12mg ER filled 11-04-22, 15 tabs, 15 day supply--both ordered by outside provider: Date medication is due for refill: oxycontin 11-04-22, dilaudid 2mg 11-08-22 Pharmacy: [facility] [place] Is this request for a controlled substance? [...] in Results Review. Please approve if appropriate. Thanks, Abelino Pat, BertPh. Clinical Pharmacist Centralized Clinical Pharmacy Services [phone] ext [phone] 12/09/2022,10:57 AM * Telephone Encounter - Karen Noble CPhT - 12/09/2022 7:40 AM EDT Did you pend patient's preferred pharmacy and medication before forwarding?yes Pharmacy: [facility] [place] Pending Prescriptions: Disp Refills HYDROmorphone HCl [...] appointment Last date the medication was ordered: 10/05/2022 Is this request for a controlled substance?Yes, What was the last refill date 10/05/2022 w/ quantity 60 and dosage 2 MG and 15 MG and Urine Drug Screen was completed Urine Drug Screen: Results for orders placed [...] Labs: Lab Results Component Value Date/Time CREAT 1.7 (H) 12/01/2022 03:07 PM CREAT 1.27 (A) 06/15/2021 12:00 AM CREAT 1.6 (H) 04/09/2020 02:17 PM POTASSIUM 5.5 (H) 12/01/2022 03:07 PM POTASSIUM 3.8 07/18/2021 04:14 AM POTASSIUM 4.4 04/09/2020 02:17 PM TSH 1.306 10/29/2021 12:00 AM TSH 0.47 01/24/2019 03:24 PM LDLCALC 83 06/16/2022 12:00 AM LDLCALC 35 12/06/2018 02:31 PM LDLDIRECT 56 07/10/2020 01:12 PM LDLDIRECT NOT APPLICABLE 12/06/2018 02:31 PM LDLDIRECT 87 02/21/2015 03:17 PM ALT 11 11/15/2022 07:00 AM ALT 32 04/09/2020 02:17 PM HGBA1C 4.9 11/08/2022 07:12 AM HGBA1C 6.2 (A) 06/16/2022 12:00 AM HGBA1C 6.7 (H) 07/16/2021 04:29 AM HGBA1C 7.6 (H) 04/09/2020 02:17 PM documented in this encounter Plan of Treatment Upcoming Encounters Date Type Specialty Care Team Description 01/11/2023 Office Visit [facility] [address] [facility] [address] 01/25/2023 Office Visit Pharmacy Deann [facility] [address] [facility] [place] [address] 12/23/2023 Office Visit Neu[facility] Sparks, DO [address] [facility] [address] Scheduled Procedures Name Priority Associated Diagnoses Date/Ti [...] Additional history exists CKD PHOS USE SMARTSET 74706 11/16/202310/30, 11/08/2022, 05/10/2022, Additional history exists COLONOSCOPY-EVERY 5 YRS AGES 18-100 11/18/2023 11/17/2018 O2 ASSESSMENT COMPLETED IN PAST YEAR FOR COPD 11/23/2023 11/22/2022, 05/24/2014 (Course Completed) CKD HGB USE SMARTSET 03529 12/02/202312/01, 12/01/2022, 11/15/2022, Additional history exists Lipid [...] this encounter Medical Devices Implanted Type Area Teaching Pastor Device Identifier Shelf Expiration Date Model / Serial / Lot Lens Intraoc 21.5 - [id number] - [id number] Implanted:Qty: 1 on 06/10/2020 by Pietro Nuñez MD at OR [facility] Right: Eye BAUSCH [employer] LOMB 12/30/2024 [id number] / [id number] / [id number] Lens Intraoc 21.5 - [id number] - [id number] Implanted:Qty: 1 on 06/24/2020 by Pietro Nuñez MD at OR [facility] Left: Eye BAUSCH & LOMB 01/29/2025 [id number] / [id number] / [id number] documented as of this encounter Visit Diagnoses Diagnosis Disc disorder of lumbar region Other and unspecified disc disorder of lumbar region documented in this encounter Additional Health Concerns Infection Onset Date Last Indicated Resolved Time Parainfluenza Virus 11/22/2022 11/22/2022 documented as of this encounter Care Teams Trouble Shooter Relationship Specialty Start Date End Date August Esposito MD [address] [place] [address] PCP - General Internal Medicine 12/13/11 documented as of this encounter
--- OUTSIDE RECORDS SUMMARY | 2023-05-24 02:02 | External Medical Summary | Summary of Care ---
Author Name Unknown Organization [facility] Address [address] [place] [address] Phone [phone] Care Team Providers Care Corporate General Manager Name Role Phone August Esposito MD Primary Care Provider + Reason for Visit * Reason Onset Date Comments Appointment 12/03/2022 Encounter Details Date Type Department Care Team Description 12/03/2022 Telephone Neurology [facility] [place] [address] [place] [address] Services, Scheduling [address] [place] [address] Appointment Allergies Active Allergy Reactions Severity Noted Date Comments Pollen 01/02/2020 Other reaction(s): Sneezing (finding) documented as of this encounter (statuses as of 12/03/2022) Medications Medication Sig Dispensed Refills Start Date [...] 30 Tablet 12 12/02/2021 Active Litetouch Pen [place] 31G X 8 MM (Insulin Pen Needle)Indications:T [...] MG Oral Tablet (Deltasone)Indicatio ns:Lung transplant status ([facility]) Take 1 Tablet by mouth in the morning. TAKING 5mg DAILY. 90 Tablet 3 11/22/2022 Active Hospital, Clinic, or Other Facility Administered Medication Ordered Dose Route Frequency Start Date End Date Status Tixagevimab inj 300 mgIndications:Lung transplant status (HCC) 300 mg IM [id number] 01/21/2022 Active Cilgavimab inj 300 mgIndications:Lung transplant status (HCC) 300 mg IM [id number] 01/21/2022 Active documented as of this encounter (statuses as of 12/03/2022) Active Problems Problem Noted Date History of [...] Pain medication agreement 04/18/2012 Overview: Signed 04/18/12 Lqtmp-7-qaxavbjuhzx deficiency 1 Overview: Prolastin 60mg/kg [facility] 06/07/11[facility] Zamaira given fall 2010 caused arthralgias. 08/28/10 - <30 10/12/08 - MM allele 08/22/08 - 232 Proteinuria 10/08/2009 History of tobacco use 09/10/2009 Chronic rhinitis 09/10/2009 Esophageal reflux Disc disorder of lumbar region Overview: has had multiple surgeries - now w/ chronic back pain from postlaminectomy syndrome documented as of this encounter (statuses as of 12/03/2022) Resolved Problems Problem Noted Date Resolved Date [...] HX- NONHODGKIN'S LYMPHOMA 07/21/20092009 Overview: Sep 2008, [facility], received 3 doses [...] sites 11/03/2010 Overview: NHL- Sep 2008 at [facility] Dr Caceres Major depressive disorder 2022 Overview: ICD-10 update of inactive term Other malignant lymphomas, u nspecified site, extranodal and solid organ sites 10/05/2017 Overview: NHL- Sep 2008 at [facility] Dr Caceres documented as of this encounter (statuses as of 12/03/2022) Immunizations Name Administration Dates Next Due COVID-19 [...] can be added * Telephone Encounter - TIKI Cifuentes - 12/03/2022 1:51 PM EDT Pt requesting a return memory with Dr.Sun lindsay in counts include [facility] beds [facility] Yuanfen~Flow™ but would also do [place], but apt were not available due to provider being out of network. please advise or schedule as appropriate. Thank you documented in this encounter Plan of Treatment Upcoming Encounters Date Type Specialty Care Team Description 01/11/2023 Office Visit Internal Medicine August Esposito MD [address] [facility] [place] [address] 01/25/[address] [facility] [place] [address] [facility] [place] [address] Scheduled Procedures Name Priority Associated Diagnoses Date/Ti [...] Additional history exists CKD PHOS USE SMARTSET 29424 11/16/202310/30, 11/08/2022, 05/10/2022, Additional history exists COLONOSCOPY-EVERY 5 YRS AGES 18-100 11/18/2023 11/17/2018 O2 ASSESSMENT COMPLETED IN PAST YEAR FOR COPD 11/23/2023 11/22/2022, 05/24/2014 (Course Completed) CKD HGB USE SMARTSET 80106 12/02/202312/01, 12/01/2022, 11/15/2022, Additional history exists Lipid [...] this encounter Medical Devices Implanted Type Area Galley Hand Device Identifier Shelf Expiration Date Model / Serial / Lot Lens Intraoc 21.5 - [id number] - [id number] Implanted:Qty: 1 on 06/10/2020 by Pietro Nuñez MD at OR [facility] Right: Eye BAUSCH & LOMB 12/30/2024 [id number] / [id number] / [id number] Lens Intraoc 21.5 - [id number] - [id number] Implanted:Qty: 1 on 06/24/2020 by Pietro Nuñez MD at OR [facility] Left: Eye BAUSCH & LOMB 01/29/2025 [id number] / [id number] / [id number] documented as of this encounter Additional Health Concerns Infection Onset Date Last Indicated Resolved Time Parainfluenza Virus 11/22/2022 11/22/2022 documented as of this encounter Care Teams Corporate General Manager Relationship Specialty Start Date End Date August Esposito MD [address] [place] [address], [place] [address] PCP - General Internal Medicine 12/13/11 documented as of this encounter
--- OUTSIDE RECORDS SUMMARY | 2023-05-24 02:02 | External Medical Summary ---
Author Name Unknown Address Unknown Organization K01:LABORATORY [facility] - [address] [place] [address] Laboratory Report Ordering Provider Test Date Status NATALIE JOHN 12/14/2022 12:07:00 Final Test performed by [facility] on [employer]. Therapeutic ranges vary with type of transplant, time post-transplant, clinical protocols, and testing methodology. Results should be interpreted with clinical presentation and any signs rejection/toxicity. Observation Date Value Abnormality Reference (Units ) Status Tacrolimus (FK506) 12/14/2022 12:07:00 4.6 4 .0-12.0 (ng/mL) Final Performing Location LABORATORY C - [address] [place] [address]
--- OUTSIDE RECORDS SUMMARY | 2023-05-24 02:02 | External Medical Summary | Summary of Care ---
Author Name Unknown Organization [facility] Address [address] [place] [address] Phone [phone] Care Team Providers Care Director Of Capital Giving Name Role Phone August Esposito MD Primary Care Provider + Reason for Visit * Reason Onset Date Comments Appointment 12/03/2022 Encounter Details Date Type Department Care Team Description 12/03/2022 Telephone Neurology [facility] [place] [address] [place] [address] Services, Scheduling [address] [place] [address] Appointment Allergies Active Allergy Reactions Severity Noted [...] 30 Tablet 12 12/02/2021 Active Litetouch Pen [place] 31G X 8 MM (Insulin Pen Needle)Indications:T [...] COPD, group C, by GOLD 2017 classification ([facility]) Inhale 1 Puff by mouth in [...] disease, with long-term current use of insulin ([facility]) Use to check sugars 4 times [...] MG Oral Tablet (Deltasone)Indicatio ns:Lung transplant status ([facility]) Take 1 Tablet by mouth in the morning. TAKING 5mg DAILY. 90 Tablet 3 11/22/2022 Active Hospital, Clinic, or Other Facility Administered Medication Ordered Dose Route Frequency Start Date End Date Status Tixagevimab inj 300 mgIndications:Lung transplant status (HCC) 300 mg IM [id number] 01/21/2022 Active Cilgavimab inj 300 mgIndications:Lung transplant status (HCC) 300 mg IM [id number] 01/21/2022 Active documented as of this encounter [...] Pain medication agreement 04/18/2012 Overview: Signed 04/18/12 Zusci-3-tybumxqiavt deficiency 1 Overview: Prolastin 60mg/kg [facility] 06[facility]07/11[facility]a [facility] fall 2010 caused [...] HX- NONHODGKIN'S LYMPHOMA 07/21/20092009 Overview: Sep 2008, [facility] 3 doses of chemo, remission COPD exacerbation 01/09/2009 12/16/2009 COPD, severity to be determined 01/09/2009 04/13/2011 Overview: 06/05/10: 4 LPM 24hrs/day. 07/26/09: Failed 2 step at [facility], 2 LPM 24 hr/day 07/15/09: [...] Overview: chronic back pain - sees [facility] Pain Management Other malignant lymphomas, u nspecified site, extranodal and solid organ sites 11/03/2010 Overview: NHL- Sep 2008 at [facility] [place] Caceres Major depressive disorder 2022 Overview: ICD-10 update of inactive term Other malignant lymphomas, u nspecified site, extranodal and solid organ sites 10/05/2017 Overview: NHL- Sep 2008 at [facility] [place] Caceres documented as of this encounter [...] a return memory with Dr.Sun lindsay in [facility] [employer] but would also do [place], but apt were not available due to provider being out of network. please advise or schedule as appropriate. Thank you documented in this encounter Plan of Treatment Upcoming Encounters Date Type Specialty Care Team Description 01/11/2023 Office Visit Internal Medicine August Esposito MD [address] [facility] [place] [address] 01/25/2023 Office Visit Pharmacy [facility] [place] [address] [facility] [place] [address] Scheduled Procedures Name Priority Associated Diagnoses Date/Ti [...] Additional history exists CKD PHOS USE SMARTSET 05881 11/16/202310/30, 11/08/2022, 05/10/2022, Additional history exists COLONOSCOPY-EVERY 5 YRS AGES 18-100 11/18/2023 11/17/2018 O2 ASSESSMENT COMPLETED IN PAST YEAR FOR COPD 11/23/2023 11/22/2022, 05/24/2014 (Course Completed) CKD HGB USE SMARTSET 97697 12/02/202312/01, 12/01/2022, 11/15/2022, Additional history exists Lipid [...] this encounter Medical Devices Implanted Type Area [employer] Crewmember Device Identifier Shelf Expiration Date Model / Serial / Lot Lens Intraoc 21.5 - [id number] - [id number] Implanted:Qty: 1 on 06/10/2020 by Pietro Nuñez MD at OR [facility] Right: Eye BAUSCH [employer] LOMB 12/30/2024 [id number] / [id number] / [id number] Lens Intraoc 21.5 - [id number] - [id number] Implanted:Qty: 1 on 06/24/2020 by Pietro Nuñez MD at OR [facility] Left: Eye BAUSCH & LOMB 01/29/2025 [id number] / [id number] / [id number] documented as of this encounter Additional Health Concerns Infection Onset Date Last Indicated Resolved Time Parainfluenza Virus 11/22/2022 11/22/2022 documented as of this encounter Care Teams Director Of Capital Giving Relationship Specialty Start Date End Date August Esposito MD [address] [place] [address], [place] [address] PCP - General Internal Medicine 12/13/11 documented as of this encounter
--- OUTSIDE RECORDS SUMMARY | 2023-05-24 02:02 | External Medical Summary | Summary of Care ---
Author Name Unknown Organization [facility] Address [address] [place] [address] Phone [phone] Care Team Providers Care Alterations Workroom Clerk Name Role Phone August Esposito MD Primary Care Provider + Reason for Visit * Reason Onset Date Comments Appointment 12/03/2022 Encounter Details Date Type Department Care Team Description 12/03/2022 Telephone Neurology [facility] [address] [place] [address] Services, Scheduling [address] [place] [address] Appointment Allergies Active Allergy Reactions Severity Noted [...] 30 Tablet 12 12/02/2021 Active Litetouch Pen [place] 31G X 8 MM (Insulin Pen Needle)Indications:T [...] mgIndications:Lung transplant status (HCC) 300 mg IM [id number] 01/21/2022 Active Cilgavimab inj 300 mgIndications:Lung transplant status (HCC) 300 mg IM [id number] 01/21/2022 Active documented as of this encounter [...] Pain medication agreement 04/18/2012 Overview: Signed 04/18/12 Iannu-3-jkponflzarw deficiency 1 Overview: Prolastin 60[facility]/kg [facility]07[facility] Zamaira given fall 2010 caused [...] HX- NONHODGKIN'S LYMPHOMA 07/21/20092009 Overview: Sep 2008, [facility], received 3 doses of chemo, remission COPD exacerbation 01/09/2009 12/16/2009 COPD, severity to be determined 01/09/2009 04/13/2011 Overview: 06/05/10: 4 LPM 24hrs/day. 07/26/09: Failed 2 step at [facility], 2 LPM 24 hr/day 07/15/09: Nocturnal pulse [...] Overview: chronic back pain - sees [facility] Pain Management Other malignant lymphomas, u nspecified site, extranodal and solid organ sites 11/03/2010 Overview: NHL- Sep 2008 at [facility] Dr Caceres Major depressive disorder 2022 Overview: ICD-10 update of inactive term Other malignant lymphomas, u nspecified site, extranodal and solid organ sites 10/05/2017 Overview: NHL- Sep 2008 at [facility] Dr Caceres documented [...] a return memory with Dr.Sun lindsay in [facility] [employer] but would also do [place], but apt were not available due to provider being out of network. please advise or schedule as appropriate. Thank you documented in this encounter Plan of Treatment Upcoming Encounters Date Type Specialty Care Team Description 01/11/2023 Office Visit Internal Medicine August Esposito MD [address] [facility] [place] [address] 01/25/2023 Office Visit Pharmacy [facility] [place] [address] [facility] [place] [address] Scheduled Procedures Name Priority Associated Diagnoses Date/Ti [...] Additional history exists CKD PHOS USE SMARTSET 55928 11/16/202310/30, 11/08/2022, 05/10/2022, Additional history exists COLONOSCOPY-EVERY 5 YRS AGES 18-100 11/18/2023 11/17/2018 O2 ASSESSMENT COMPLETED IN PAST YEAR FOR COPD 11/23/2023 11/22/2022, 05/24/2014 (Course Completed) CKD HGB USE SMARTSET 75272 12/02/202312/01, 12/01/2022, 11/15/2022, Additional history exists Lipid [...] this encounter Medical Devices Implanted Type Area Package Maker Device Identifier Shelf Expiration Date Model / Serial / Lot Lens Intraoc 21.5 - [id number] - [id number] Implanted:Qty: 1 on 06/10/2020 by Pietro Nuñez MD at OR [facility] Right: Eye BAUSCH & LOMB 12/30/2024 [id number] / [id number] / [id number] Lens Intraoc 21.5 - [id number] - [id number] Implanted:Qty: 1 on 06/24/2020 by Pietro Nuñez MD at OR [facility] Left: Eye BAUSCH & LOMB 01/29/2025 [id number] / [id number] / [id number] documented as of this encounter Additional Health Concerns Infection Onset Date Last Indicated Resolved Time Parainfluenza Virus 11/22/2022 11/22/2022 documented as of this encounter Care Teams Alterations Workroom Clerk Relationship Specialty Start Date End Date August Esposito MD [address] [place] [address], [place] [address] PCP - General Internal Medicine 12/13/11 documented as of this encounter
--- OUTSIDE RECORDS SUMMARY | 2023-05-24 02:02 | External Medical Summary ---
Author Name Unknown Address Unknown Organization : Laboratory Report Ordering Provider Test Date Status NATALIE JOHN 12/14/2022 12:17:39 Final Observation Date Value Abnormality Reference (Units ) Status Everolimus [Mass/volume] in Blood 12/14/2022 12:17:39 5.4 (ng/mL) Final Unable to flag abnormal result(s), please refer
to reference range(s) below:
Trough: 3.0 - 8.0 ng/mL for Transplantation
Trough: 5.0 - 10.0 ng/mL for Oncology/Neurology
Symptoms of toxicity are more likely to occur at
trough levels exceeding 12.0 ng/mL.
This test was developed and its analytical performance
characteristics have been determined by [facility] [place], [place]. It has
not been cleared or approved by the U.S. Food and Drug
Administration. This assay has been validated pursuant
to the CLIA regulations and is used for clinical
purposes.

Test Performed at:
[facility]
[address] [facility]
[place], [place]
Emory Amador M.D., Ph.D.,Director of Laboratories Performing Location
--- OUTSIDE RECORDS SUMMARY | 2023-05-24 02:03 | External Medical Summary ---
Author Name Unknown Address Unknown Organization [id number]:[facility] [place] [address] Laboratory Report Ordering Provider Test Date Status NATALIE JOHN 12/01/2022 15:07:45 Final Observation Date Value Abnormality Reference (Units ) Status SYNC LEUKOCYTES IN BLOOD BY AUTOMATED COUNT 12/01/2022 15:07:45 6.13 4.00-10.80 (K/uL) Final Segs 12/01/2022 15:07:45 89.9 Above high normal 40.0-75.0 (%) Final Lymphs % 12/01/2022 15:07:45 5.5 Below low normal 18.0-42.0 (%) Final Monos 12/01/2022 15:07:45 3.9 1.0-11.0 (%) Final Eosinophils 12/01/2022 15:07:45 0.0 0.0-6.0 (%) Final Basos 12/01/2022 15:07:45 0.7 0.0-2.0 (%) Final Absolute Segs 12/01/2022 15:07:45 5.51 1.80-7.70 (K/uL) Final Lymphs, absolute 12/01/2022 15:07:45 0.34 Below low normal 1.00-4.80 (K/ul) Final Monos, Abs 12/01/2022 15:07:45 0.24 0.00-1.10 (K/uL) Final Eos, Abs 12/01/2022 15:07:45 0.00 0.00-0.70 (K/uL) Final Basos, Abs 12/01/2022 15:07:45 0.04 0.00-0.20 (K/uL) Final Performing Location [facility] [address]
--- OUTSIDE RECORDS SUMMARY | 2023-05-24 02:03 | External Medical Summary ---
Author Name Unknown Address Unknown Organization K09:[facility] [place] [address] Laboratory Report Ordering Provider Test Date Status NATALIE JOHN 12/01/2022 15:07:45 Final Observation Date Value Abnormality Reference (Units ) Status BUN 12/01/2022 15:07:45 21 Above high normal 6-20 (mg/dL) Final Creatinine 12/01/2022 15:07:45 1.7 Above high normal 0.5-1.0 (mg/dL) Final Glomerular filtration rate/1.73 sq M.predicted [Volume Rate/Area] in Serum, Plasma or Blood by Creatinine-based formula (CKD-EPI) 12/01/2022 15:07:45 33 Below low normal >=60 (mL/min) Final eGFR is calculated based on the CKD-EPI 2020 equation SODIUM 12/01/2022 15:07:45 133 Below low normal 135 -146 (mmol/L) Final Potassium 12/01/2022 15:07:45 5.5 Above high normal 3. 5-5.1 (mmol/L) Final Cl 12/01/2022 15:07:45 102 98-107 (mm ol/L) Final CO2 12/01/2022 15:07:45 17 Below low normal 22- 32 (mmol/L) Final Anion gap 12/01/2022 15:07:45 14 7-15 (mmol /L) Final Glucose 12/01/2022 15:07:45 207 Above high normal 70 -120 (mg/dL) Final Calcium 12/01/2022 15:07:45 9.5 8.4-10.2 ( mg/dL) Final Performing Location [facility] [place] [address]
--- OUTSIDE RECORDS SUMMARY | 2023-05-24 02:03 | External Medical Summary ---
Author Name Unknown Address Unknown Organization : Laboratory Report Ordering Provider Test Date Status NATALIE JOHN 12/01/2022 15:07:45 Final Observation Date Value Abnormality Reference (Units ) Status Source 12/01/2022 15:07:45 Whole Blood Final Cytomegalovirus DNA [Units/volume] (viral load) in Specimen by with probe detection 12/01/2022 15:07:45 Not Detected (IU/mL) Final Cytomegalovirus DNA [Log #/volume] (viral load) in Specimen by with probe detection 12/01/2022 15:07:45 Not Detected (log IU/mL) Final REFERENCE RANGE: NOT DETECTE D
This test was developed and its analytical performance
characteristics have been determined by [employer]
[facility] [facility] [place], [place]. It has
not been cleared or approved by the U.S. Food and Drug
Administration. This assay has been validated pursuant
to the CLIA regulations and is used for clinical
purposes.
For additional information, please refer to
http://education.[employer].com/faq/CMVandEBVPCR
(This link is being provided for informational/
educational purposes only.)

Test Performed at:
[facility]
[address] [facility]
[place], [place]
Emory Amador M.D., Ph.D.,Director of Laboratories Performing Location
--- OUTSIDE RECORDS SUMMARY | 2023-05-24 02:03 | External Medical Summary ---
Author Name Unknown Address Unknown Organization : Laboratory Report Ordering Provider Test Date Status NATALIE JOHN 12/01/2022 15:07:45 Final Observation Date Value Abnormality Reference (Units ) Status Everolimus [Mass/volume] in Blood 12/01/2022 15:07:45 11.5 (ng/mL) Final Unable to flag abnormal result(s), please refer
to reference range(s) below:
Trough: 3.0 - 8.0 ng/mL for Transplantation
Trough: 5.0 - 10.0 ng/mL for Oncology/Neurology
Symptoms of toxicity are more likely to occur at
trough levels exceeding 12.0 ng/mL.
This test was developed and its analytical performance
characteristics have been determined by [facility] [place], [place]. It has
not been cleared or approved by the U.S. Food and Drug
Administration. This assay has been validated pursuant
to the CLIA regulations and is used for clinical
purposes.

Test Performed at:
[facility]
[address] [facility]
[place], [place]
Emory Amador M.D., Ph.D.,Director of Laboratories Performing Location
--- OUTSIDE RECORDS SUMMARY | 2023-05-24 02:03 | External Medical Summary | Summary of Care ---
Author Name Unknown Organization [facility] Address [address] [place] [address] Phone [phone] Care Team Providers Care Doctor Naturopathic Name Role Phone August Esposito MD Primary Care Provider + Encounter Details Date Type Department Care Team Description 12/01/2022 Orders Only Laboratory [facility] [address] [place] [address] Katya Brand MD [address] [place] [address] Encounter for long-term (current) use of other medications*; Gitelman syndrome; Hypomagnesemia; Status post lung transplantation (HCC) Allergies [...] 30 Tablet 12 12/02/2021 Active Litetouch Pen [place] 31G X 8 MM (Insulin Pen Needle)Indications:T [...] COPD, group C, by GOLD 2017 classification ([facility]) Inhale 1 Puff by mouth [...] disease, with long-term current use of insulin ([facility]) Use to check sugars 4 [...] (DVT) of right upper extremity, unspecified vein ([facility]) Take 1 Tablet by mouth [...] Status Tixagevimab inj 300 mgIndications:Lung transplant status ([facility]) 300 mg IM [id number] 01/21/2022 Active Cilgavimab inj 300 mgIndications:Lung transplant status ([facility]) 300 mg IM [id number] 01/21/2022 Active documented as of this encounter [...] Pain medication agreement 04/18/2012 Overview: Signed 04/18/12 Ddplk-4-bzhqpzsjtub deficiency 1 Overview: Prolastin 60[facility] Zam[facility] given fall 2010 caused arthralgias. 08/28/10 [...] LPM 24hrs/day. 07/26/09: Failed 2 step at [facility], 2 LPM 24 hr/day 07/15/09: Nocturnal pulse [...] 12/16/2009 Overview: chronic back pain - sees [facility] Pain Management Other malignant lymphomas, u nspecified site, extranodal and solid organ sites 11/03/2010 Overview: NHL- Sep 2008 at [facility] Dr Caceres Major depressive disorder 2022 Overview: ICD-10 update of inactive term Other malignant lymphomas, u nspecified site, extranodal and solid organ sites 10/05/2017 Overview: [facility] [...] Encounters Date Type Specialty Care Team Description 12/01/2022 Laboratory Laboratory [facility] [address] [place] [address] Encounter for long-term (current) use of other medications; Hypomagnesemia; Status post lung transplantation (HCC) 12/07/2022 Office Visit Neurology Jayashree Sparks, DO [address] [place] [address] 01/11/2023 Office Visit Internal Medicine August Esposito MD [address] [place] [address] 01/25/2023 Office Visit Pharmacy [address] [address] Scheduled Orders Name Type Priority Associated Diagnoses Orde r Schedule CBC WITH WBC DIFFERENTIAL Lab Routine Encounter for long-term (current) use of other medications Hypomagnesemia Status post lung transplantation (HCC) Expected: 12/01/2022, Expires: 12/02/2023 BASIC METABOLIC PANEL Lab Routine Encounter for long-term (current) use of other medications Hypomagnesemia Status post lung transplantation (HCC) Expected: 12/01/2022, Expires: 12/02/2023 MAGNESIUM Lab Routine Encounter for long-term (current) use of other medications Hypomagnesemia Status post lung transplantation (HCC) Expected: 12/01/2022, Expires: 12/02/2023 CYTOMEGALOVIRUS DNA, QUANTITATIVE REAL-TIME PCR Lab Routine Encounter for long-term (current) use of other medications Hypomagnesemia Status post lung transplantation (HCC) Expected: 12/01/2022, Expires: 12/02/2023 TACROLIMUS LEVEL Lab Routine Encounter for long-term (current) use of other medications Hypomagnesemia Status post lung transplantation (HCC) Expected: 12/01/2022, Expires: 12/02/2023 EVEROLIMUS, LC/MS/MS, BLOOD Lab Routine Encounter for long-term (current) use of other medications Hypomagnesemia Status post lung transplantation (HCC) Expected: 12/01/2022, Expires: 12/02/2023 Scheduled Procedures Name Priority Associated Diagnoses Date/Ti me COLONOSCOPY FLEXIBLE PROXIMA L DIAGNOSTIC Recall Screening for malignant neoplasm of colon Health Maintenance Due Date Last Done Comments *ADVANCE DIRECTIVE NOT ON FILE 08/25/2016 DIABETES-EYE EXAM 03/18/2021 03/18/2020, , 03/19/2014, Additional history exists Depression Screening, Annual for Pts 12 and Over 04/09/2021 04/09/2020, 02/21/2015 Mammogram 07/18/2021 07/18/2020, 050 12/2018, 09/07/2018, Additional history exists DXA Scan 09/11/2021 09/11/2018, 09/11/2018 Zoster Vaccines (2 of 2) 09/16/2022 07/22/2022 Influenza Vaccine (FLU shot) (#1) 2022 01/20/2022, 02/02/2021, 01/02/2020, Additional history exists HbA1c 05/11/2023 11/08/2022, 06/02, 07/16/2021, Additional history exists GFR 05/20/2023 11/17/2022, 10/30, 11/15/2022, Additional history exists Albumin/Creatinine Ratio 06/16/2023 023, 09/11/2019, 12/06/2018, Additional history exists DIABETES-FOOT EXAM 07/06/2023 07/05/2022, 0 06/10/2021, 07/10/2020, Additional history exists CKD HGB USE SMARTSET 07130 11/16/202311/15, 11/15/2022, 11/08/2022, Additional history exists CKD PHOS USE SMARTSET 74079 11/16/202310/30, 11/08/2022, 05/10/2022, Additional history exists COLONOSCOPY-EVERY [...] this encounter Medical Devices Implanted Type Area Airport Location Manager Device Identifier Shelf Expiration Date Model / Serial / Lot Lens Intraoc 21.5 - [id number] - [id number] Implanted:Qty: 1 on 06/10/2020 by Pietro Nuñez MD at OR [facility] Right: Eye [employer]CH [employer] LOMB 12/30/2024 [id number] / [id number] / [id number] Lens Intraoc 21.5 - [id number] - [id number] Implanted:Qty: 1 on 06/24/2020 by Pietro Nuñez MD at OR [facility] Left: Eye BAUSCH & LOMB 01/29/2025 [id number] / [id number] / [id number] documented as of this encounter Visit Diagnoses Diagnosis Encounter for long-term (current) use of other medications- Primary Gitelman syndrome Disorders of magnesium metabolism Hypomagnesemia 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) Lung replaced by transplant Encounter for long-term (current) use of other medications Hypomagnesemia 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
--- OUTSIDE RECORDS SUMMARY | 2023-05-24 02:03 | External Medical Summary ---
Author Name Unknown Address Unknown Organization K09[facility] [place] [address] Laboratory Report Ordering Provider Test Date Status NATALIE JOHN 12/01/2022 15:07:45 Final Observation Date Value Abnormality Reference (Units ) Status WBC, Total 12/01/2022 15:07:45 6.13 4.00-10.8 0 (K/uL) Final RBC 12/01/2022 15:07:45 3.57 3.85-5.15 (M/uL) Final Hemoglobin 12/01/2022 15:07:45 10.2 Below low normal 12 .0-15.3 (g/dL) Final HCT 12/01/2022 15:07:45 30.9 Below low normal 36. 0-45.2 (%) Final MCV 12/01/2022 15:07:45 86.6 81.5-97.5 (fL) Final MCH 12/01/2022 15:07:45 28.6 27.0-34.0 (pg) Final MCHC 12/01/2022 15:07:45 33.0 32.0-36.0 (g/dL) Final RDW 12/01/2022 15:07:45 14.2 11.5-15.5 (%) Final Platelets 12/01/2022 15:07:45 202 140-400 (K /uL) Final MPV 12/01/2022 15:07:45 8.7 6.6-11.1 ( fL) Final Performing Location [facility] [place] [address]
--- OUTSIDE RECORDS SUMMARY | 2023-05-24 02:03 | External Medical Summary ---
Author Name Unknown Address Unknown Organization K01:[facility] [place] [address] [place] [address] Laboratory Report Ordering Provider Test Date Status NATALIE JOHN 12/01/2022 15:07:45 Final Test performed by [facility] on [employer]. Therapeutic ranges vary with type of transplant, time post-transplant, clinical protocols, and testing methodology. Results should be interpreted with clinical presentation and any signs rejection/toxicity. Observation Date Value Abnormality Reference (Units ) Status Tacrolimus (FK506) 12/01/2022 15:07:45 13.2 Above high normal 4.0-12.0 (ng/mL) Final Performing Location [facility] - [address] [place] [address]
--- OUTSIDE RECORDS SUMMARY | 2023-05-24 02:03 | External Medical Summary ---
Author Name Unknown Address Unknown Organization K09:[facility] [place] [address] Laboratory Report Ordering Provider Test Date Status CALVIN JOHNDELORES 12/01/2022 15:07:45 Final Observation Date Value Abnormality Reference (Units ) Status Magnesium 12/01/2022 15:07:45 1.3 Below low normal 1.5 -2.6 (mg/dL) Final Performing Location [facility] [place] [address]
[2023-05-24 04:18] LABS: Basophils # (auto) 0.02 K/uL (0.00-0.20); Basophils % (auto) 0.4 %; Eosinophils # (auto) 0.08 K/uL (0.00-0.50); Eosinophils % (auto) 1.4 %; Hemoglobin 10.5 g/dl (12.0-16.0); Immature Granulocytes # (auto) 0.02 K/uL (0.01-0.20); Immature Granulocytes % (auto) 0.4 %; Lymphocytes # (auto) 0.85 K/uL (1.20-3.40); Lymphocytes % (auto) 15.3 %; Mean Corpuscular Hemoglobin 30.3 pg (25.0-34.0); Mean Corpuscular Volume 86.5 fL (80.0-100.0); Mean Platelet Volume 9.7 fL (9.4-12.4); Monocytes # (auto) 0.75 K/uL (0.11-0.59); Monocytes % (auto) 13.5 %; Neutrophils # (auto) 3.82 K/uL (1.40-6.50); Platelet Count 120 K/uL (130-400); RDW Coefficient of Variation 12.9 % (11.5-14.5); RDW Standard Deviation 40.7 fL (36.4-46.3); Red Blood Count 3.47 M/uL (4.20-5.40); White Blood Count 5.54 K/ul (4.8-10.8)
[2023-05-24 04:41] LABS: BUN Creatinine Ratio 13.2 (10-20); Calcium 8.9 mg/dl (8.6-10.3); Est GFR (African American) 22.1 ml/min; Est GFR (Non-African American) 19.1 ml/min; Magnesium 1.5 mg/dl (1.7-2.4); Troponin I High Sensitivity 23.9 pg/ml (0-14)
[2023-05-24] MEDS ORDERED: hydrALAZINE HCL 20 MG/ML VIAL IV ONE (05:22)
[2023-05-24] MEDS: INSULIN ASPART PER UNIT CHARGE SC SCH ×4 (05:47→21:22)
--- NOTE | 2023-05-24 08:02 | Cardiology Consultation ---
Date of Consultation May 24, 2023 Assessment & Plan (1) Chest pain: (2) Elevated troponin: (3) Hypertensive urgency: (4) CKD (chronic kidney disease): (5) Pleural effusion: Plan IMPRESSION: Medically complex 67 year old female. History of COPD secondary to alpha 1 antitrypsin deficiency status post left lung transplant on chronic immunosuppression--follows with [facility] as well as a history of cryptococcal meningitis, 08/2022--treated at [facility]. Presented due to chest pain and shortness of breath. CTA of the chest showed a small left pleural effusion. Patient was hypertensive on presentation. She was treated with IV labetalol and hydralazine in addition to her home dose amlodipine. High-sensitivity troponins were mildly elevated (19.2>>14.3>>23.9). PLAN: Chest pain: -Chest pain has characteristics that are consistent with a musculoskeletal cause. -Mildly elevated troponin-- not uncommon with her degree of renal dysfunction and hypertension. No evidence of ACS. Hypertension: -Patient has a pending transfer to [facility] [place]-- will add hydralazine 10 mg TID to medications, will defer further changes to accepting service. -Continue amlodipine 5 mg daily. Pleural Effusion: -Patient appears mildly hypervolemia with evidence of left pleural effusion. Mild pedal edema. Elevated BNP. -Scr elevated at 2.5, known CKD. Spoke with hospitalist team-- Will give a single dose of 20 mg IV Lasix. Monitor response-- should transfer not be completed today will need to repeat BMP in the am. Case discussed with Dr. Mratinez. I spent a total of 45 minutes on the date of service in preparation, delivery, and documentation of the care provided to the patient excluding any time spent in the performance of separately billed services. KINGSLEY Fields Department of Cardiology, [facility] This chart was completed in part utilizing Speech Voice Recognition Software. Grammatical errors, random word insertions, pronoun errors, and incomplete sentences are an occasional consequence of this system due to software limitations, ambient noise, and hardware issues. Any formal questions or concerns about the content, text, or information contained within the body of this dictation should be directly addressed to the provider for clarification. Supervising Physician Co-Signing Physician Notes Supervising Physician Attestation: I have personally performed a history and physical examination on the patient. I agree with the physician health care assistant's findings and plan as documented with the following additions. Subjective: Describes left-sided chest pain of her left side and under her left breast is reproduced with deep inspiration and with movement consistent with chest wall pain. Remains hypertensive. Exam: Cardiovascular: Regular rhythm, no murmurs, no edema Pulm: Mildly decreased breath sounds left base Data: EKG performed/ at 10:10 AM and interpreted independently: Normal sinus rhythm at 75 bpm, voltage criteria for LVH, no significant repolarization abnormalities. Creatinine 2.5 mg/dL, have been 2.28 in November, and 1.65 mg/dL in Aug, 2022 Chest x-ray, CT of chest revealed small left pleural effusion Assessment and Plan: 1-Chest wall pain as a result of fall trauma several weeks ago 2-CTA chest with noted finding of circumferential thickening of the esophagus which is incompletely visualized further imaging recommended per radiology report 3-Hypertensive urgency 4-Acute kidney injury -Agree with one-time dose of furosemide 20 mg x 1 -Add hydralazine 10 mg p.o. 3 times daily for further blood pressure control -No additional ischemic workup felt to be indicated at this time given the characteristic of her chest discomfort. -Continue Eliquis 2.5 mg BID for now, but will need to monitor for worsening renal function. DVT prophylaxis: on Eliquis I spent a total of 25 minutes on the date of service in preparation, delivery, and documentation of the care provided to this patient, excluding any time spent in the performance of separately billed services. Irving Martinez, History of Present Illness Reason for Consultation: Chest pain/elevated troponin Hypertension Requesting Physician: Heavenly slater Attending Physician: Pat Ricardo MD History of Present Illness Medically complex 67-year-old female who presented to [facility] emergency department due to chest pain and shortness of breath. CTA of the chest showed a small left pleural effusion. Patient was hypertensive on presentation. She was treated with IV labetalol and hydralazine in addition to her home dose amlodipine. High-sensitivity troponins were mildly elevated (19.2>>14.3>>23.9). EKG of poor quality. Repeat pending. Echo: PENDING Tele: SR 60-70s Upon entrance into the room patient resting in bed. Notes on going constant left sided pain under her left arm/axillary region. Started about 3 week ago after a fall from her wheel chair while transferring. left ribcage is tender to palpitation. Notes that laying on that side makes the pain "excruciating". She will take Dilaudid at home to ease her pain, but overall the pain is constant. Will get short of breath when her pain is bad. Pain has made her limit her activity at home. Otherwise, she denies palpitations, lightheadedness of dizziness. No orthopnea or PND. No lower extremity edema. BP remains hypertensive-- she is asymptomatic. No headaches or vision changes. Of note, she has a pending transfer to [facility]. Past medical history: Hypertension History of PFO History of bradycardia Pulmonary hypertension CKD stage IV GERD Type 2 diabetes, insulin requiring History of CVA COPD secondary to alpha 1 antitrypsin deficiency status post left lung transplant on chronic immunosuppression--follows with [facility] History of lymphoma status postchemotherapy History of cryptococcal meningitis, 08/2022--treated at [facility] History of DVT/PE, on Eliquis Dementia Allergies Allergy/AdvReac Type Severity Reaction Status Date / Time No Known Allergies Allergy Unverified 09/17/22 15:42 Home Medications Medication Instructions Recorded Confirmed Type acyclovir 200 mg capsule 200 mg PO AMPM 09/17/22 05/23/23 History albuterol sulfate 90 mcg/actuation 1 - 2 inh inhalation Q6H PRN SOB 09/17/22 05/23/23 History aerosol inhaler azithromycin 250 mg tablet 500 mg PO 3XWK 09/17/22 05/23/23 History citalopram 40 mg tablet (Celexa) 40 mg PO DAILY 09/17/22 05/23/23 History fluticasone furoate 100 1 inh inhalation DAILY 09/17/22 05/23/23 History mcg-vilanterol 25 mcg/dose inhalation powder (Breo Ellipta) hydromorphone 2 mg tablet 2 mg PO Q12H PRN Pain 09/17/22 05/23/23 History (Dilaudid) insulin glargine 100 unit/mL (3 See Rx Instructions .Route .COMPLEX 09/17/22 05/23/23 History mL) subcutaneous pen (Lantus Solostar U-100 Insulin) insulin lispro 100 unit/mL 4 unit subcut BIDWMEAL 09/17/22 05/23/23 History subcutaneous pen multivitamin 1 tab PO DAILY 09/17/22 05/23/23 History oxycodone 15 mg tablet,crush 15 mg PO Q12H 09/17/22 05/23/23 History resistant,extended release 12 hr (OxyContin) pantoprazole 40 mg tablet,delayed 40 mg PO DAILY 09/17/22 05/23/23 History release prednisone 5 mg tablet 5 mg PO QAM 09/17/22 05/23/23 History sulfamethoxazole 400 1 tab PO 2XWK 09/17/22 05/23/23 History mg-trimethoprim 80 mg tablet tacrolimus 0.5 mg capsule, 0.5 mg PO QAM 09/17/22 05/23/23 History immediate-release apixaban 2.5 mg tablet (Eliquis) 2.5 mg PO BID 05/23/23 05/24/23 History fluconazole 200 mg tablet 200 mg PO DAILY 05/23/23 05/23/23 History ondansetron HCl 4 mg tablet 4 mg PO UD PRN n/v 05/23/23 05/23/23 History amlodipine 5 mg tablet 5 mg PO DAILY 05/24/23 05/24/23 History everolimus (immunosuppressive) 0.5 0.5 mg PO UD 05/24/23 05/24/23 History mg tablet Patient History Medical History (Updated 05/24/23 @ 10:41 by Irving Martinez DO) Chronic back pain Degenerative disc disease Pulmonary embolism 2008--reason unknown, no blood thinners Hyperlipidemia Heart murmur Coronary artery disease Chronic respiratory failure with hypoxia 4L home O2 GERD (gastroesophageal reflux disease) Chronic pain syndrome Depression H/O lymphoma Diabetes type 2, controlled Zmgat-[id number] deficiency COPD (chronic obstructive pulmonary disease) Surgical History History of dilatation and curettage History of bilateral tubal ligation History of total hysterectomy with bilateral salpingo-oophorectomy (BSO) History of lumbar spinal fusion History of fusion of cervical spine normal ROM Hx of arthroscopy of right knee History of colonoscopy History of vascular access device left chest APort History of tooth extraction History of tonsillectomy History of bronchoscopy multiple Family History Father Family history of diabetes mellitus Sister Family history of diabetes mellitus Other No family history of adverse response to anesthesia Social History Smoking Status: Former smoker Tobacco Type: Cigarettes Second Hand Exposure: No; Do You Dip or Chew Tobacco: No; Tobacco Cessation Education Requested by Patient: No Hx Alcohol Use: No Hx Substance Use: No Preferred Language: Turkish Communication Ability: Effective 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 Required: No Beliefs That Will Affect Care: None Current Living Situation: Spouse Current Living Situation Comment: home with Other Information That Helps Us Care for You: No Feels Safe at Home: Yes Safety Concerns: Feels Safe At This Time Assistive Devices: Cane and Denture - Upper Review of Systems Review of Systems: All systems reviewed & are unremarkable except as noted in HPI & below Physical Exam Constitutional: well developed; no acute distress Neck: normal visual inspection and trachea midline Respiratory: normal respiratory effort and + cough; no respiratory distress Auscultation: + diminished lung sounds and + rales (fine rales on left side ); no rhonchi and no wheezes Cardiovascular: Rate/Rhythm: regular rate and regular rhythm Heart Sounds: normal S1, normal S2 and + murmur (soft systolic murmur) Vessels: no JVD Extremities: no edema Gastrointestinal (Abdomen): normal bowel sounds, soft, nontender, no hepatosplenomegaly Skin: no rashes, warm and dry Psychiatric: Orientation: alert and oriented x 3 Results & Data Vital Signs (Past 12 Hours) Vital Signs Temp Pulse Pulse Resp BP BP Pulse Ox 05/24/23 07:10 66 05/24/23 06:30 68 20 179/77 H 95 05/24/23 06:00 70 16 180/75 H 96 05/24/23 05:53 192/73 H 05/24/23 05:46 69 17 192/73 H 95 05/24/23 05:30 76 23 187/77 H 91 05/24/23 05:00 62 18 197/74 H 95 05/24/23 04:30 67 18 188/74 H 93 05/24/23 04:00 70 18 186/72 H 95 05/24/23 03:09 70 05/24/23 03:00 71 21 186/68 H 92 05/24/23 02:31 75 15 150/82 H 95 05/24/23 02:00 83 19 206/78 H 96 05/24/23 01:45 64 20 174/96 H 93 05/24/23 01:43 05/24/23 01:43 36.9 C 79 18 174/96 H 96 05/24/23 01:30 74 17 196/74 H 92 05/24/23 01:24 78 184/68 H 05/24/23 01:15 76 19 184/68 H 94 05/24/23 01:12 05/24/23 01:00 69 22 207/120 H 93 05/24/23 00:45 74 17 204/84 H 94 05/24/23 00:37 75 16 208/74 H 95 05/24/23 00:34 77 221/74 H 05/24/23 00:30 71 22 221/74 H 94 05/23/23 23:55 82 21 96 05/23/23 23:55 215/88 H 05/23/23 23:45 79 20 93 05/23/23 23:45 194/85 H 05/23/23 23:31 214/114 H 05/23/23 23:31 73 18 96 05/23/23 23:30 65 22 96 05/23/23 23:15 207/89 H 05/23/23 23:15 75 18 94 05/23/23 23:02 75 05/23/23 23:00 230/85 H 05/23/23 23:00 72 24 94 05/23/23 23:00 83 20 95 05/23/23 22:45 72 17 94 05/23/23 22:45 204/85 H 05/23/23 22:30 76 22 91 05/23/23 22:30 190/143 H 05/23/23 22:30 76 26 H 190/143 H 93 05/23/23 22:08 71 16 94 05/23/23 21:47 214/90 H 05/23/23 21:47 78 19 92 05/23/23 21:42 200/73 H 05/23/23 21:42 76 15 94 05/23/23 21:40 76 13 95 05/23/23 21:30 78 24 93 05/23/23 21:30 211/95 H 05/23/23 21:20 71 22 91 05/23/23 21:10 74 21 93 05/23/23 21:06 76 18 93 05/23/23 21:06 187/82 H 05/23/23 21:00 187/82 H 05/23/23 21:00 94 05/23/23 20:50 95 05/23/23 20:40 92 05/23/23 20:30 95 05/23/23 20:29 91 05/23/23 20:27 94 05/23/23 20:10 72 18 05/23/23 20:08 96 05/23/23 20:07 71 16 188/76 H 96 05/23/23 20:00 67 17 96 Pulse Ox O2 Del Method O2 Del Method O2 Flow Rate 05/24/23 07:10 05/24/23 06:30 Room Air 05/24/23 06:00 Room Air 05/24/23 05:53 05/24/23 05:46 Room Air 05/24/23 05:30 05/24/23 05:00 Room Air 05/24/23 04:30 Room Air 05/24/23 04:00 Room Air 05/24/23 03:09 05/24/23 03:00 Room Air 05/24/23 02:31 Room Air 05/24/23 02:00 Room Air 05/24/23 01:45 Room Air 05/24/23 01:43 Room Air 05/24/23 01:43 Room Air 05/24/23 01:30 Room Air 05/24/23 01:24 05/24/23 01:15 Room Air 05/24/23 01:12 95 Room Air 05/24/23 01:00 Room Air 05/24/23 00:45 Room Air 05/24/23 00:37 Room Air 05/24/23 00:34 05/24/23 00:30 Room Air 05/23/23 23:55 05/23/23 23:55 05/23/23 23:45 05/23/23 23:45 05/23/23 23:31 05/23/23 23:31 05/23/23 23:30 05/23/23 23:15 05/23/23 23:15 05/23/23 23:02 05/23/23 23:00 05/23/23 23:00 05/23/23 23:00 Room Air 05/23/23 22:45 05/23/23 22:45 05/23/23 22:30 05/23/23 22:30 05/23/23 22:30 Room Air 05/23/23 22:08 05/23/23 21:47 05/23/23 21:47 05/23/23 21:42 05/23/23 21:42 05/23/23 21:40 05/23/23 21:30 05/23/23 21:30 05/23/23 21:20 05/23/23 21:10 05/23/23 21:06 05/23/23 21:06 05/23/23 21:00 05/23/23 21:00 05/23/23 20:50 05/23/23 20:40 05/23/23 20:30 05/23/23 20:29 05/23/23 20:27 05/23/23 20:10 05/23/23 20:08 Room Air 0 05/23/23 20:07 Room Air 05/23/23 20:00 Laboratory Results Cardiac Enzymes 05/23/23 05/23/23 05/23/23 Range/Units 15:05 19:08 21:08 AST 28 (13-39) U/L Troponin I High Sens 19.2 H 14.3 H D (0-14) pg/ml B-Natriuretic Peptide 920 H (0-100) pg/ml 05/24/23 Range/Units 03:31 AST (13-39) U/L Troponin I High Sens 23.9 H (0-14) pg/ml B-Natriuretic Peptide (0-100) pg/ml Coagulation 05/23/23 Range/Units 21:08 B-Natriuretic Peptide 920 H (0-100) pg/ml CBC 05/23/23 05/24/23 Range/Units 15:05 03:31 WBC 6.77 5.54 (4.8-10.8) K/ul RBC 3.86 L 3.47 L (4.20-5.40) M/uL Hgb 11.4 L 10.5 L (12.0-16.0) g/dl Hct 34.6 L 30.0 L (37.0-47.0) % Plt Count 134 120 L (130-400) K/uL Neut # (Auto) 6.01 3.82 (1.40-6.50) K/uL Lymph # (Auto) 0.35 L 0.85 L (1.20-3.40) K/uL [place] # (Auto) 0.36 0.75 H (0.11-0.59) K/uL Eos # (Auto) 0.01 0.08 (0.00-0.50) K/uL Baso # (Auto) 0.02 0.02 (0.00-0.20) K/uL Comprehensive Metabolic Panel 05/23/23 05/24/23 Range/Units 15:05 03:31 Sodium 135 L 135 L (136-145) mmol/L Potassium 5.1 4.0 D (3.5-5.1) mmol/L Chloride 105 107 (98-107) mmol/L Carbon Dioxide 24 21 (21-32) mmol/L BUN 36 H 33 H (6-23) mg/dl Creatinine 2.50 H 2.50 H (0.6-1.2) mg/dl Glucose 163 H 101 H (70-99(Fasting)) mg/dl Calcium 9.5 8.9 (8.6-10.3) mg/dl AST 28 (13-39) U/L ALT 15 (7-52) U/L Alkaline Phosphatase 60 (34-104) U/L Total Protein 7.3 (6.0-8.3) gm/dl Albumin 4.0 (3.4-5.0) gm/dl Intake and Output 05/23/23 05/24/23 05/24/23 22:59 06:59 14:59 Intake Total 1000 / 1240 240 / 1240 Balance 1000 / 1240 240 / 1240 Intake: IV 1000 / 1000 Sodium Chloride 0.9% 1,000 ml @ 1000 / 1000 999 mls/hr IV .Q1H1M ONE Rx#: [id number] Oral 240 / 240 Other: # Unmeasured Voids 3 Weight 57.8 kg 57.8 kg Weight Measurement Method Built in [facility] Patient Weight 05/25/23 06:59 Weight 57.8 kg (1) Chest pain Chest pain type: other chest pain Qualified Code(s): R07.89 - Other chest pain
[2023-05-24] MEDS: HYDROmorphone INJ 0.5 MG/0.5 ML SYR IV PRN (08:33)
--- NOTE | 2023-05-24 09:03 | Communication Note ---
Date of Service: May 24, 2023 Ms Lanier is a 67 year old woman with complicated history including Left lung transplant [facility] 07/31/2019 Called transfer center 06/03 to need for better immunosuppressive monitoring iso renal dysfunction (progressive decline). Currently, tacro is send out and trough will be returned around 48 hours. Given recency of transplant as well as multiple medical issues, Dr. Pascual agreed for transfer to [facility] for work up of left effusion, additional medical management, and most importantly immunosuppressive management. In interim, will continue original plan. Evaluated patient in ED. In pain with deep breathing. Pressures 180s. #Left lung transplant #Chronic immunosuppression #Left pleural effusion -plan for transfer contingent on bed availability -Monitor O2 levels -Pulm consult -If thora necessary for patient status, then obtain all fluids studies available, including fungal -Added ammonia level iso lung transplant -Tacro level ordered in case delay in transfer (~8am this am drawn, present at bedside during lab) -Continue current Tacro level per Dr. Pascual -If renal function further declines, hold immunosuppression -Continue acyclovir, fluconazole -Dilaudid for pain prn, potentially contributing to HTN given state patient evaluated in Rest of plan in , formal progress note to follow tomorrow if patient remains admitted to [facility]
[2023-05-24] MEDS ORDERED: FUROSEMIDE INJ 20 MG/2 ML VIAL IV ONE (09:22)
[2023-05-24] MEDS: MAGNESIUM SULFATE / D5W 1 GM/100 ML BAG IV SCH ×2 (09:31→10:55)
[2023-05-24] MEDS: oxyCODONE HCL 15 MG TABCR (OxyCONTIN) PO SCH ×2 (09:31→21:21)
[2023-05-24] MEDS: amLODIPine BESYLATE 5 MG TAB PO SCH (09:32)
[2023-05-24] MEDS: ACYCLOVIR 200 MG CAP PO SCH ×2 (09:32→21:20)
[2023-05-24] MEDS: APIXABAN 2.5 MG TAB PO SCH ×2 (09:33→21:20)
[2023-05-24] MEDS: CITALOPRAM 40 MG TAB PO SCH (09:33)
[2023-05-24] MEDS: FLUCONAZOLE 100 MG TAB PO SCH (09:34)
[2023-05-24] MEDS: MULTIVITAMIN TAB PO SCH (09:35)
[2023-05-24] MEDS: FLUTICASONE/VILANTEROL 100/25MCG 14 PUFFS/INHALER INH SCH (09:35)
[2023-05-24] MEDS: PANTOprazole 40 MG TAB PO SCH (09:35)
[2023-05-24] MEDS: predniSONE 5 MG TAB PO SCH (09:36)
[2023-05-24] MEDS: POTASSIUM CHLORIDE CRTAB 20 MEQ TABCR PO SCH (09:36)
[2023-05-24] MEDS: TACROLIMUS 0.5 MG CAP PO SCH (09:36)
[2023-05-24] MEDS: hydrALAZINE 10 MG TAB PO SCH ×2 (10:55→21:20)
--- NOTE | 2023-05-24 10:58 | Ultrasound Report ---
THYROID ULTRASOUND CLINICAL HISTORY: multiple thyroid cyst like lesions on ct scan COMPARISON STUDY: Thyroid ultrasounds September 06, 2015 and March 13, 2018. Chest CT May 23, 2023. TECHNIQUE: Sonography of the thyroid gland was performed. FINDINGS: The right thyroid lobe measures 4 x 2.4 x 2.8 cm. A 2.4 x 2.4 x 2.2 cm solid nodule with sm all cystic spaces within the lower pole of the right thyroid lobe is similar to ultrasound September 05 6. The thyroid gland is heterogeneous. A few smaller thyroid nodules are also similar to earlier ultr asound of September 06, 2015. IMPRESSION: No significant change in multiple thyroid nodules since earlier thyroid ultrasound of 2015. ACT 112: Negative or not required by law. Electronically signed by: Josesito Villatoro M.D. 05/24/2023 10:56 AM
--- NOTE | 2023-05-24 11:32 | Pulmonary Consultation ---
Date of Consultation May 24, 2023 Assessment & Plan (1) Pleural effusion: (2) Pulmonary hypertension: (3) Shortness of breath: (4) COPD (chronic obstructive pulmonary disease): (5) History of lung transplant: Plan CTA chest 05/23/2023 personally reviewed: Centrilobular emphysema appreciated on the right side, left lung transplant Minimal fluid appreciated in the left fissure with trace left-sided pleural effusion No significant pulmonary infiltrate No significant mediastinal lymphadenopathy -- Chest pain with minimal/trace left-sided pleural effusion Reproducible on palpation, likely musculoskeletal in nature BNP 920 Respiratory bio fire negative for everything on 05/23/2023 --COPD with emphysema Using Incruse inhaler on a daily basis Not in any exacerbation --History of alpha-1 antitrypsin deficiency Has not been taking any replacement therapy since 2 years -- History of left-sided lung transplant 2021 at [facility] He is on chronic acyclovir, Bactrim, prednisone, tacrolimus. 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 No need for antibiotics from pulmonary perspective Continue with diuretics to keep the patient negative balance Recommend 2D echo No intervention needed from pulmonary side for the trace left-sided pleural effusion Please note the above document was generated using voice recognition software. It may contain grammatical, syntax or spelling errors.Any formal questions or concerns about the content, text or information contained within the body of this dictation should be directly addressed to the provider for clarification. History of Present Illness Attending Physician: Pat Ricardo MD History of Present Illness 67-year-old female presented to hospital with complaints of left-sided chest pain and lethargy Past medical history: COPD, alpha 1 antitrypsin deficiency, left-sided lung transplant 2021 at [facility] on immunosuppression, history of PE and DVT on Eliquis, diabetes, hypertension Pulmonary consulted for chest pain and history of lung transplant Patient follows up with Dr. Robert as an outpatient, notes reviewed At the time of examination patient was saturating 97% on room air. She was not any respiratory distress She was in pain especially on the left side at the site of the incision. The pain was reproducible on palpitation. Patient did have a fall approximately a month ago when she fell on the left side. She is on chronic pain medications for low back pain. She does complain of generalized lethargy. Denies any significant cough. Not bringing up any phlegm No subjective fever or chills No dysuria, no diarrhea She is compliant with her immunosuppressive medications Denies any nausea vomiting No headache, no blurry vision Social history: Approximately [id number] smoking history, quit at the age of 57. Has a dog at home Lung cancer: History of lung cancer in brother who was a smoker Allergies Allergy/AdvReac Type Severity Reaction Status Date / Time No Known Allergies Allergy Unverified 09/17/22 15:42 Home Medications Medication Instructions Recorded Confirmed Type acyclovir 200 mg capsule 200 mg PO AMPM 09/17/22 05/23/23 History albuterol sulfate 90 mcg/actuation 1 - 2 inh inhalation Q6H PRN SOB 09/17/22 05/23/23 History aerosol inhaler azithromycin 250 mg tablet 500 mg PO 3XWK 09/17/22 05/23/23 History citalopram 40 mg tablet (Celexa) 40 mg PO DAILY 09/17/22 05/23/23 History fluticasone furoate 100 1 inh inhalation DAILY 09/17/22 05/23/23 History mcg-vilanterol 25 mcg/dose inhalation powder (Breo Ellipta) hydromorphone 2 mg tablet 2 mg PO Q12H PRN Pain 09/17/22 05/23/23 History (Dilaudid) insulin glargine 100 unit/mL (3 See Rx Instructions .Route .COMPLEX 09/17/22 05/23/23 History mL) subcutaneous pen (Lantus Solostar U-100 Insulin) insulin lispro 100 unit/mL 4 unit subcut BIDWMEAL 09/17/22 05/23/23 History subcutaneous pen multivitamin 1 tab PO DAILY 09/17/22 05/23/23 History oxycodone 15 mg tablet,crush 15 mg PO Q12H 09/17/22 05/23/23 History resistant,extended release 12 hr (OxyContin) pantoprazole 40 mg tablet,delayed 40 mg PO DAILY 09/17/22 05/23/23 History release prednisone 5 mg tablet 5 mg PO QAM 09/17/22 05/23/23 History sulfamethoxazole 400 1 tab PO 2XWK 09/17/22 05/23/23 History mg-trimethoprim 80 mg tablet tacrolimus 0.5 mg capsule, 0.5 mg PO QAM 09/17/22 05/23/23 History immediate-release apixaban 2.5 mg tablet (Eliquis) 2.5 mg PO BID 05/23/23 05/24/23 History fluconazole 200 mg tablet 200 mg PO DAILY 05/23/23 05/23/23 History ondansetron HCl 4 mg tablet 4 mg PO UD PRN n/v 05/23/23 05/23/23 History amlodipine 5 mg tablet 5 mg PO DAILY 05/24/23 05/24/23 History everolimus (immunosuppressive) 0.5 0.5 mg PO UD 05/24/23 05/24/23 History mg tablet Patient History Medical History (Updated 05/24/23 @ 10:41 by Irving Martinez DO) Chronic back pain Degenerative disc disease Pulmonary embolism 2008--reason unknown, no blood thinners Hyperlipidemia Heart murmur Coronary artery disease Chronic respiratory failure with hypoxia 4L home O2 GERD (gastroesophageal reflux disease) Chronic pain syndrome Depression H/O lymphoma Diabetes type 2, controlled [id number] deficiency COPD (chronic obstructive pulmonary disease) Surgical History History of dilatation and curettage History of bilateral tubal ligation History of total hysterectomy with bilateral salpingo-oophorectomy (BSO) History of lumbar spinal fusion History of fusion of cervical spine normal ROM Hx of arthroscopy of right knee History of colonoscopy History of vascular access device left chest APort History of tooth extraction History of tonsillectomy History of bronchoscopy multiple Family History Father Family history of diabetes mellitus Sister Family history of diabetes mellitus Other No family history of adverse response to anesthesia Social History Smoking Status: Former smoker Tobacco Type: Cigarettes Second Hand Exposure: No; Do You Dip or Chew Tobacco: No; Tobacco Cessation Education Requested by Patient: No Hx Alcohol Use: No Hx Substance Use: No Preferred Language: Venezuelan Communication Ability: Effective Dispensary Attendant Required: No Beliefs That Will Affect Care: None Current Living Situation: Spouse Current Living Situation Comment: home with Other Information That Helps Us Care for You: No Feels Safe at Home: Yes Safety Concerns: Feels Safe At This Time Assistive Devices: Cane and Denture - Upper Review of Systems 2 Review of Systems: All systems reviewed & are unremarkable except as noted in HPI & below Physical Exam 2 Physical Exam: Constitutional: No acute distress HEENT: EOMI, PERRLA Respiratory system: Decreased entry bilaterally, no wheeze, rhonchi, minimal crackles bilateral lower lobes CVS: S1-S2 positive, no murmurs or gallops Abdomen: Soft, nontender, nondistended, positive bowel sounds x4 Extremities: +2 pulses bilaterally radialis/ dorsalis pedis, no cyanosis, +1 pitting edema bilateral lower extremity Neuro: Awake alert oriented x3 Psych: Normal mood and affect G/U: No Mccartney Musculoskeletal: Left-sided scar present, no rash, there is tenderness to palpitation/reproducible pain Results & Data Results & Data Vital Signs (Past 12 Hours) Vital Signs Temp Pulse Pulse Resp BP BP Pulse Ox 05/24/23 07:10 66 05/24/23 06:30 68 20 179/77 H 95 05/24/23 06:00 70 16 180/75 H 96 05/24/23 05:53 192/73 H 05/24/23 05:46 69 17 192/73 H 95 05/24/23 05:30 76 23 187/77 H 91 05/24/23 05:00 62 18 197/74 H 95 05/24/23 04:30 67 18 188/74 H 93 05/24/23 04:00 70 18 186/72 H 95 05/24/23 03:09 70 05/24/23 03:00 71 21 186/68 H 92 05/24/23 02:31 75 15 150/82 H 95 05/24/23 02:00 83 19 206/78 H 96 05/24/23 01:45 64 20 174/96 H 93 05/24/23 01:43 05/24/23 01:43 36.9 C 79 18 174/96 H 96 05/24/23 01:30 74 17 196/74 H 92 05/24/23 01:24 78 184/68 H 05/24/23 01:15 76 19 184/68 H 94 05/24/23 01:12 05/24/23 01:00 69 22 207/120 H 93 05/24/23 00:45 74 17 204/84 H 94 05/24/23 00:37 75 16 208/74 H 95 05/24/23 00:34 77 221/74 H 05/24/23 00:30 71 22 221/74 H 94 05/23/23 23:55 82 21 96 05/23/23 23:55 215/88 H 05/23/23 23:45 79 20 93 05/23/23 23:45 194/85 H 05/23/23 23:31 214/114 H 05/23/23 23:31 73 18 96 05/23/23 23:30 65 22 96 05/23/23 23:15 207/89 H 05/23/23 23:15 75 18 94 05/23/23 23:02 75 05/23/23 23:00 230/85 H 05/23/23 23:00 72 24 94 05/23/23 23:00 83 20 95 05/23/23 22:45 72 17 94 05/23/23 22:45 204/85 H 05/23/23 22:30 76 22 91 05/23/23 22:30 190/143 H 05/23/23 22:30 76 26 H 190/143 H 93 05/23/23 22:08 71 16 94 05/23/23 21:47 214/90 H 05/23/23 21:47 78 19 92 05/23/23 21:42 200/73 H 05/23/23 21:42 76 15 94 05/23/23 21:40 76 13 95 05/23/23 21:30 78 24 93 05/23/23 21:30 211/95 H 05/23/23 21:20 71 22 91 05/23/23 21:10 74 21 93 05/23/23 21:06 76 18 93 05/23/23 21:06 187/82 H 05/23/23 21:00 187/82 H 05/23/23 21:00 94 05/23/23 20:50 95 05/23/23 20:40 92 05/23/23 20:30 95 05/23/23 20:29 91 05/23/23 20:27 94 05/23/23 20:10 72 18 05/23/23 20:08 96 05/23/23 20:07 71 16 188/76 H 96 05/23/23 20:00 67 17 96 05/23/23 19:50 70 20 95 05/23/23 19:41 64 18 94 05/23/23 19:41 188/76 H 05/23/23 19:40 67 15 93 05/23/23 19:30 63 21 91 Pulse Ox O2 Del Method O2 Del Method O2 Flow Rate 05/24/23 07:10 05/24/23 06:30 Room Air 05/24/23 06:00 Room Air 05/24/23 05:53 05/24/23 05:46 Room Air 05/24/23 05:30 05/24/23 05:00 Room Air 05/24/23 04:30 Room Air 05/24/23 04:00 Room Air 05/24/23 03:09 05/24/23 03:00 Room Air 05/24/23 02:31 Room Air 05/24/23 02:00 Room Air 05/24/23 01:45 Room Air 05/24/23 01:43 Room Air 05/24/23 01:43 Room Air 05/24/23 01:30 Room Air 05/24/23 01:24 05/24/23 01:15 Room Air 05/24/23 01:12 95 Room Air 05/24/23 01:00 Room Air 05/24/23 00:45 Room Air 05/24/23 00:37 Room Air 05/24/23 00:34 05/24/23 00:30 Room Air 05/23/23 23:55 05/23/23 23:55 05/23/23 23:45 05/23/23 23:45 05/23/23 23:31 05/23/23 23:31 05/23/23 23:30 05/23/23 23:15 05/23/23 23:15 05/23/23 23:02 05/23/23 23:00 05/23/23 23:00 05/23/23 23:00 Room Air 05/23/23 22:45 05/23/23 22:45 05/23/23 22:30 05/23/23 22:30 05/23/23 22:30 Room Air 05/23/23 22:08 05/23/23 21:47 05/23/23 21:47 05/23/23 21:42 05/23/23 21:42 05/23/23 21:40 05/23/23 21:30 05/23/23 21:30 05/23/23 21:20 05/23/23 21:10 05/23/23 21:06 05/23/23 21:06 05/23/23 21:00 05/23/23 21:00 05/23/23 20:50 05/23/23 20:40 05/23/23 20:30 05/23/23 20:29 05/23/23 20:27 05/23/23 20:10 05/23/23 20:08 Room Air 0 05/23/23 20:07 Room Air 05/23/23 20:00 05/23/23 19:50 05/23/23 19:41 05/23/23 19:41 05/23/23 19:40 05/23/23 19:30 Laboratory Results 05/24/23 03:31 05/24/23 03:31 PG Care Time/CCT Total # of Minutes Spent Total Time Spent with Patient: Total time spent is greater than 50% in coordination of care (as documented) at patient's floor/unit and/or counseling patient: Coding Level of Care Code 36501 INT INP/OBS CARE 3/75MIN Diagnoses Pleural effusion J90 Pulmonary hypertension I27.20 Shortness of breath R06.02 COPD (chronic obstructive pulmonary disease) J44.9 History of lung transplant Z94.2
--- NOTE | 2023-05-24 12:22 | Electrocardiogram Report ---
Test Reason : Blood Pressure : / mmHG Vent. Rate : 075 BPM Atrial Rate : 075 BPM P-R Int : 168 ms QRS Dur : 080 ms QT Int : 426 ms P-R-T Axes : 078 028 080 degrees QTc Int : 475 ms Normal sinus rhythm Minimal voltage criteria for LVH, may be normal variant Borderline ECG When compared with ECG of 23-MAY-2023 15:05, No significant change was found Confirmed by Yehuda Schneider ([id number] on 05/24/2023 12:21:39 PM Referred By: REFERRED SELF Confirmed By:Lorenzo Schneider
[2023-05-24] MEDS: EVEROLIMUS PO SCH (12:57)
[2023-05-24] MEDS ORDERED: Nursing to Pharmacy Communication SCH (15:15)
[2023-05-24] MEDS: HYDROmorphone HCL 2 MG TAB PO PRN (16:59)
[2023-05-24] MEDS ORDERED: LANTUS PER UNIT CHARGE SQ SCH (21:00)
[2023-05-25] MEDS: HYDROmorphone INJ 0.5 MG/0.5 ML SYR IV PRN (05:18)
[2023-05-25] MEDS: APIXABAN 2.5 MG TAB PO SCH (07:16)
[2023-05-25] MEDS: POTASSIUM CHLORIDE CRTAB 20 MEQ TABCR PO SCH (07:16)
[2023-05-25] MEDS: TACROLIMUS 0.5 MG CAP PO SCH (07:16)
[2023-05-25] MEDS: FLUCONAZOLE 100 MG TAB PO SCH (07:16)
[2023-05-25] MEDS: MULTIVITAMIN TAB PO SCH (07:17)
[2023-05-25] MEDS: PANTOprazole 40 MG TAB PO SCH (07:17)
[2023-05-25] MEDS: amLODIPine BESYLATE 5 MG TAB PO SCH (07:17)
[2023-05-25] MEDS: predniSONE 5 MG TAB PO SCH (07:17)
[2023-05-25] MEDS: hydrALAZINE 10 MG TAB PO SCH (07:17)
[2023-05-25] MEDS: ACYCLOVIR 200 MG CAP PO SCH (07:17)
[2023-05-25] MEDS: CITALOPRAM 40 MG TAB PO SCH (07:17)
--- NOTE | 2023-05-25 07:26 | Pulmonology Progress Note ---
Date of Service May 25, 2023 Assessment & Plan (1) Pleural effusion: (2) Pulmonary hypertension: (3) Shortness of breath: (4) COPD (chronic obstructive pulmonary disease): (5) History of lung transplant: Plan CTA chest 05/23/2023 personally reviewed: Centrilobular emphysema appreciated on the right side, left lung transplant Minimal fluid appreciated in the left fissure with trace left-sided pleural effusion No significant pulmonary infiltrate No significant mediastinal lymphadenopathy 2D echo 05/24/2023: EF 65-70%, grade 1 diastolic dysfunction, mild concentric LVH -- Chest pain with minimal/trace left-sided pleural effusion Reproducible on palpation, likely musculoskeletal in nature BNP 920 Respiratory bio fire negative for everything on 05/23/2023 --COPD with emphysema Using Incruse inhaler on a daily basis Not in any exacerbation --History of alpha-1 antitrypsin deficiency Has not been taking any replacement therapy since 2 years -- History of left-sided lung transplant 2021 at [facility] He is on chronic acyclovir, Bactrim, prednisone, tacrolimus. 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 No need for antibiotics from pulmonary perspective No intervention needed from pulmonary side for the trace left-sided pleural effusion No further recommendation from pulmonary perspective, Will sign off Please call directly with any questions Please note the above document was generated using voice recognition software. It may contain grammatical, syntax or spelling errors.Any formal questions or concerns about the content, text or information contained within the body of this dictation should be directly addressed to the provider for clarification. Admission and Anticipated Discharge Date Admission Date: May 24, 2023 Subjective No acute distress, no adverse events overnight Overall she says she is feeling the same when it comes to her breathing Still complains of some pain on the left side which is better than when she came into the hospital No headache, blurry vision Denies any nausea vomiting Review of Systems 2 Review of Systems: All systems reviewed & are unremarkable except as noted in Subjective Physical Exam 2 Physical Exam: Constitutional: No acute distress HEENT: EOMI, PERRLA Respiratory system: Decreased entry bilaterally, no wheeze, rhonchi, minimal crackles bilateral lower lobes CVS: S1-S2 positive, no murmurs or gallops Abdomen: Soft, nontender, nondistended, positive bowel sounds x4 Extremities: +2 pulses bilaterally radialis/ dorsalis pedis, no cyanosis, +1 pitting edema bilateral lower extremity Neuro: Awake alert oriented x3 Psych: Normal mood and affect G/U: No Mccartney Musculoskeletal: Left-sided scar present, no rash, there is tenderness to palpitation/reproducible pain Results & Data Results & Data Vital Signs (Past 12 Hours) Vital Signs Temp Pulse Pulse Resp BP Pulse Ox Pulse Ox 05/25/23 02:48 37.2 C 69 18 169/66 H 95 05/25/23 01:00 94 05/24/23 23:00 77 05/24/23 22:52 37 C 76 18 153/56 H 94 05/24/23 20:00 O2 Del Method O2 Del Method 05/25/23 02:48 Room Air 05/25/23 01:00 Room Air 05/24/23 23:00 05/24/23 22:52 Room Air 05/24/23 20:00 Room Air Laboratory Results 05/24/23 03:31 05/24/23 03:31 PG Care Time/CCT Total # of Minutes Spent Total Time Spent with Patient: Total time spent is greater than 50% in coordination of care (as documented) at patient's floor/unit and/or counseling patient: Coding Level of Care Code 28194 SUB INP/OBS CARE 2/35MIN Diagnoses Pleural effusion J90 Pulmonary hypertension I27.20 Shortness of breath R06.02 COPD (chronic obstructive pulmonary disease) J44.9 History of lung transplant Z94.2
[2023-05-25] MEDS: oxyCODONE HCL 15 MG TABCR (OxyCONTIN) PO SCH (07:41)
[2023-05-25] MEDS: EVEROLIMUS PO SCH (07:41)
[2023-05-25 07:53] LABS: Hematocrit (blood only) 31.6 % (37.0-47.0); Mean Corpuscular Hemoglobin 30.2 pg (25.0-34.0); Mean Corpuscular Hgb Conc 34.8 g/dL (32.0-36.0); Mean Corpuscular Volume 86.8 fL (80.0-100.0); Mean Platelet Volume 9.5 fL (9.4-12.4); Platelet Count 164 K/uL (130-400); RDW Coefficient of Variation 13.1 % (11.5-14.5); RDW Standard Deviation 41.6 fL (36.4-46.3); Red Blood Count 3.64 M/uL (4.20-5.40); White Blood Count 5.77 K/ul (4.8-10.8)
[2023-05-25] MEDS: INSULIN ASPART PER UNIT CHARGE SC SCH (08:08)
[2023-05-25 08:18] LABS: Calcium 9.3 mg/dl (8.6-10.3); Magnesium 2.1 mg/dl (1.7-2.4); Potassium 4.4 mmol/L (3.5-5.1)
[2023-05-25 08:23] LABS: BUN Creatinine Ratio 12.8 (10-20); Creatinine Clr Calc Pharmacy 13.3 ml/min; Est GFR (African American) 16.4 ml/min; Est GFR (Non-African American) 14.2 ml/min; Phosphorus 5.2 mg/dl (2.5-4.9)
[2023-05-25] MEDS ORDERED: AZITHROMYCIN 250 MG TAB PO SCH (09:00)
[2023-05-25] MEDS: HYDROmorphone HCL 2 MG TAB PO PRN (09:20)
[2023-05-25] MEDS: FLUTICASONE/VILANTEROL 100/25MCG 14 PUFFS/INHALER INH SCH (09:30)
--- NOTE | 2023-05-25 11:25 | Electrocardiogram Report ---
Test Reason : Blood Pressure : / mmHG Vent. Rate : 064 BPM Atrial Rate : 064 BPM P-R Int : 166 ms QRS Dur : 082 ms QT Int : 488 ms P-R-T Axes : 078 -09 077 degrees QTc Int : 503 ms Normal sinus rhythm Moderate voltage criteria for LVH, may be normal variant Prolonged QT Abnormal ECG When compared with ECG of 24-MAY-2023 10:10, No significant change was found Confirmed by Yehuda Schneider ([id number] on 05/25/2023 11:25:23 AM Referred By: REFERRED SELF Confirmed By:Lorenzo Schneider
--- NOTE | 2023-05-25 14:23 | Discharge Summary ---
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 Pain started couple of days ago as per . Patient was admitted in August 2022 with suspected sepsis and MRI scan showed 1.9 cm focus of subtle predominantly linear enhancement within the right forted lobe . Patient was transferred to [facility] . 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 She had repeat MRI scan in April 2023. states [facility] thought there is no significant change from the previous MRI. Patient gets on and off headaches. Denies any fevers. Vision is okay. No runny nose. No sore throat. No cough. No nausea. No abdominal pain. Normal bowel and bladder movements. She states ambulates holding furniture at home. Past medical history. As mentioned above Past surgical history. Bronchoscopy. Cervical hemilaminectomy. Colonoscopy. Multiple back surgeries. Left single lung transplant. Spine neck fusion surge ry in 1999. Bilateral cataracts. Cholecystectomy. Salivary surgery. Excision of soft tissue on the shoulder. Total abdominal hysterectomy removal of tubes. Social history. . Smokes 1.5 packs a day for 25 years. No alcohol use. No drug use. Family history. Mother has Alzheimer's disease. Father had diabetes. Emphysema. Sister had leukemia. Admission Exam Per Admitting Provider General- Not in distress. Head- atraumatic Eyes- PERRL. ENT- oropharynx clear Neck- supple, no JVD. Lungs- clear to auscultation no wheezing or crackles. Heart- regular rhythm; no murmur, no gallop. Abdomen- normal bowel sounds, soft, nontender, no distension Extremities- mild pretibial edema present, no erythema seen. Neuro- alert, oriented x 3; PERRL, no facial palsy; no dysarthria; moves extremities. 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 Pain started couple of days ago as per . Currently on fluconazole 200 mg daily as per for lifelong 2/2 hx of cryptococcal meningitis. In ED, Blod pressure up to 190s-200s, resolved with IV hydralazine and labetolol, controlled on po hydralazine and home regimen of amlodipine. Evaluated by Pulm and Cards. Suspected pain related to MSK etiology. Patient received 20mg IV lasix given concerns for volume (edema, effusion), however, renal function increased to 3.2 this am. Patient transferred to [facility] given transplant status, worsening renal function, and inability to properly monitor immunosuppressive therapy (lab return time 48hours+) #Possible esophageal lesion On the CAT scan, esophageal thickening noted Recommend further follow up when stable from pulm/renal standpoint #Left lung transplant #Chronic immunosuppression #Left pleural effusion -plan for transfer contingent on bed availability -Monitor O2 levels -Pulm consult -No thora at this time - ammonia level 28 -Tacro level ordered in case delay in transfer (~8am this am drawn, present at bedside during lab) -Continue current Tacro level per Dr. Pascual -If renal function further declines, hold immunosuppression -Continue acyclovir, fluconazole -Dilaudid for pain prn, potentially contributing to HTN given state patient evaluated in -Transfer to transplant center for better monitoring and adjustment of immunosuppression #Chest pain, non-cardiac likely #Elevated Troponin, likely demand 2/2 HTN and renal dysfuntion -Cards evaluated -Continue po hydralazine -trop peaked 23.9 #Thyroid lesions on the CAT scan Follow up thyroid ultrasound #Acute HFpEF G1DD on ECHO, BNP 920 -s/p IV lasix Held further lasix 2/2 renal dysfunction #History of cryptococcal meningitis On fluconazole #Demand ischemia -Resolved, 2/2 hypertension and renal dysfunction #COLT on CKD stage 4 presented with cr 2.5 per epic recent cr had been around 2.5 Up to 3.2 this am, hold further nephrotoxic agents Transfer for immunosupression monitoring iso COLT/CKD #History of PE and DVT On Eliquis #Diabetes Will cut back Lantus to 6 units as patient is n.p.o. Sliding scale Will monitor #Depression On Celexa #Chronic pain Continue home pain medications #GERD On Protonix DVT prophylaxis On Eliquis On day of transfer, patient still reporting dyspnea and left sided rib pain, near effusion location. Patient denies any acute concerns at this time. Discharge Exam Constitutional tremulous, frail woman Respiratory diminished breath sounds 2/2 effort Cardiovascular RRR, no murmur, no edema Updated Medication List Medication Instructions Recorded Confirmed Type acyclovir 200 mg capsule 200 mg PO AMPM 09/17/22 05/23/23 History albuterol sulfate 90 mcg/actuation 1 - 2 inh inhalation Q6H PRN SOB 09/17/22 05/23/23 History aerosol inhaler azithromycin 250 mg tablet 500 mg PO 3XWK 09/17/22 05/23/23 History citalopram 40 mg tablet (Celexa) 40 mg PO DAILY 09/17/22 05/23/23 History fluticasone furoate 100 1 inh inhalation DAILY 09/17/22 05/23/23 History mcg-vilanterol 25 mcg/dose inhalation powder (Breo Ellipta) hydromorphone 2 mg tablet 2 mg PO Q12H PRN Pain 09/17/22 05/23/23 History (Dilaudid) insulin glargine 100 unit/mL (3 See Rx Instructions .Route .COMPLEX 09/17/22 05/23/23 History mL) subcutaneous pen (Lantus Solostar U-100 Insulin) insulin lispro 100 unit/mL 4 unit subcut BIDWMEAL 09/17/22 05/23/23 History subcutaneous pen multivitamin 1 tab PO DAILY 09/17/22 05/23/23 History oxycodone 15 mg tablet,crush 15 mg PO Q12H 09/17/22 05/23/23 History resistant,extended release 12 hr (OxyContin) pantoprazole 40 mg tablet,delayed 40 mg PO DAILY 09/17/22 05/23/23 History release prednisone 5 mg tablet 5 mg PO QAM 09/17/22 05/23/23 History sulfamethoxazole 400 1 tab PO 2XWK 09/17/22 05/23/23 History mg-trimethoprim 80 mg tablet tacrolimus 0.5 mg capsule, 0.5 mg PO QAM 09/17/22 05/23/23 History immediate-release apixaban 2.5 mg tablet (Eliquis) 2.5 mg PO BID 05/23/23 05/24/23 History fluconazole 200 mg tablet 200 mg PO DAILY 05/23/23 05/23/23 History ondansetron HCl 4 mg tablet 4 mg PO UD PRN n/v 05/23/23 05/23/23 History amlodipine 5 mg tablet 5 mg PO DAILY 05/24/23 05/24/23 History everolimus (immunosuppressive) 0.5 0.5 mg PO UD 05/24/23 05/24/23 History mg tablet Hospital Stay Data Consultations 05/23/23 21:44 ED Decision to Admit Stat 05/24/23 08:00 Consult Cardiology Routine Consult Pulmonology Routine Diagnostic Imagining Performed 05/23/23 18:59 CT for pulmonary embolism PE [CT angio chest PE protocol] Stat 05/24/23 01:05 US thyroid Routine Pending Results Patient Have Any Pending Studies at Discharge: No Discharge Instructions Given to Patient (Per Discharging Provider) Ms Lanier is a 67-year-old female with past med history significant for type 2 diabetes, chronic kidney stage IV, alpha-1 antitrypsin trypsin deficiency, COPD, 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 Pain started couple of days ago as per . Currently on fluconazole 200 mg daily as per for lifelong 2/2 hx of cryptococcal meningitis. In ED, Blod pressure up to 190s-200s, resolved with IV hydralazine and labetolol, controlled on po hydralazine and home regimen of amlodipine. Evaluated by Pulm and Cards. Suspect pain related to MSK etiology. Progressive renal dysfunction. Requesting transfer for management of immunosuppression in setting of renal dysfunction. #Possible esophageal lesion On the CAT scan, esophageal thickening noted GI consult once patient is more stable #Left lung transplant #Chronic immunosuppression #Left pleural effusion -plan for transfer contingent on bed availability -Monitor O2 levels -Pulm consult -No thora at this time - ammonia level 28 -Tacro level ordered in case delay in transfer (~8am this am drawn, present at bedside during lab) -Continue current [place] level per Dr. Pascual -If renal function further declines, hold immunosuppression -Continue acyclovir, fluconazole -Dilaudid for pain prn, potentially contributing to HTN given state patient evaluated in #Chest pain, non-cardiac likely #Elevated Troponin, likely demand 2/2 HTN and renal dysfuntion -Cards evaluated -Continue po hydralazine -trop peaked 23.9 #Thyroid lesions on the CAT scan Follow up thyroid ultrasound #Acute HFpEF G1DD on ECHO, BNP 920 -s/p IV lasix Reassess in am contingent on CMP, consider redoing #History of cryptococcal meningitis On fluconazole #CKD stage 4 presented with cr 2.5 per epic recent cr had been around 2.5 #History of PE and DVT On Eliquis #Diabetes Will cut back Lantus to 6 units as patient is n.p.o. Sliding scale Will monitor #Depression On Celexa #Chronic pain Continue home pain medications #GERD On Protonix DVT prophylaxis On Eliquis Total Time Total Time Spent Total Time Spent (In Minutes): 45
[2023-05-25] MEDS ORDERED: EVEROLIMUS PO SCH (21:00)
[2023-05-26] MEDS ORDERED: SULFA/TRIMETH 400/80MG TAB PO SCH (09:00)
== END 2023-05-25 09:50 | disposition short-term general hospital (02) | DRG 291 ==
LOC: ED 14:49 → EDINP 05-24 00:12 → 2S 05-24 00:39